=== PATIENT | male | born 1940 | race Caucasian/White ===

== ENCOUNTER → 2017-04-19 10:59 | Inpatient (IN) | payer OTHER, MEDICARE ==
[2016-01-20] VITALS (8 sets, daily range): BP systolic 89–107; BP diastolic 56–70; PULSE 69–103; RESP 15–20; TEMP 95.7–98.7; O2SAT 95–99
--- NOTE | 2016-01-20 05:35 | PD ---
HPI Chief Complaint: GI Complaint Time Seen by Provider: 05:20 Travel History International Travel<30 days: No Contact w/Intl Traveler<30days: No History of Present Illness HPI This is a patient with a history of dementia who is G-tube fed who presents to the emergency department having had 2 episodes at his senior care, one last night and one this morning of coffee-ground emesis. Patient is unable to provide any history. Per the chart the patient does have a history of esophagitis. PFSH Past Medical History Blood Disorders: No Anxiety: No Depression: Yes Cancer: No Cardiovascular Problems: Yes Dementia: Yes Diabetes: Yes Diminished Hearing: No Endocrine: No Gastrointestinal Disorders: Yes (peg tube) GERD: Yes Genitourinary: Yes (incont/kidney stones/hematuria) Hypertension: Yes Immune Disorder: No Kidney Stones: Yes Musculoskeletal: Yes Neurologic: Yes Psychiatric: No Reproductive: Yes (enlarged prostate) Respiratory: No Thyroid Disease: Yes (hypo) Past Surgical History Abdominal Surgery: Yes (PEG TUBE ) Social History Alcohol Use: No Tobacco Use: No Substance Use: No Allergies-Medications (Allergen,Severity, Reaction): Coded Allergies: Depakote (Verified Allergy, Severe, 01/20/16) Levaquin (Verified Allergy, Severe, 01/20/16) Olanzapine (Verified Allergy, Severe, 01/20/16) Seroquel (Verified Allergy, Intermediate, Rash, 01/20/16) Reported Meds & Prescriptions Reported Meds & Active Scripts Active Bactrim DS (Sulfamethoxazole-Trimethoprim DS) 1 Tab Tab 1 Tab PO BID 7 Days Macrobid (Nitrofurantoin Macrocrystals) 100 Mg Cap 100 Mg PO BID 10 Days Keflex 500 mg Cap (Cephalexin Monohydrate) 500 Mg Cap 500 Mg PO TID 7 Days Hydrocodone/Acetaminophen 5 mg/325 mg 1 Tab 1 Tab PO Q4H PRN Reported Colcrys (Colchicine) 0.6 Mg Tab 0.6 Mg PEG DAILY PRN Tylenol 325 Mg Tab (Acetaminophen) 325 Mg Tab 650 Mg PEG Q8HR PRN Tramadol Hcl (Tramadol HCl) 50 Mg Tab 50 Mg PEG Q12HR PRN Allopurinol 100 Mg Tab 100 Mg PEG DAILY Calcium + D (Calcium Carbonate-Vitamin D) 600 Mg Tab 1 Tab PEG DAILY Zantac (Ranitidine HCl) 150 Mg Tab 150 Mg PEG BID Loperamide Hcl (Loperamide HCl) 2 Mg Tab 2 Mg PEG Q12HR PRN DO NOT EXCEED 8 TABLETS/CAPSULES PER 24 HOURS Remeron (Mirtazapine) 7.5 Mg Tab 7.5 Mg PEG HS Review of Systems ROS Limitations: Poor Historian Physical Exam Narrative GENERAL:Well appearing, no acute distress SKIN: Warm and dry. HEAD: Atraumatic. Normocephalic. EYES: Pupils equal and round. No injection or drainage. ENT: Moist mucous membranes NECK: Trachea midline. CARDIOVASCULAR: Regular rate and rhythm. No murmur appreciated. RESPIRATORY: Clear to auscultation. Breath sounds equal bilaterally. GASTROINTESTINAL: Abdomen soft, mildly tender to palpation diffusely. G-tube in place and suprapubic catheter in place. MUSCULOSKELETAL: No obvious deformities. NEUROLOGICAL: Says some words, oriented to person but not time or place. No obvious cranial nerve deficits. Moving all extremities. Data Data Last Documented VS Vital Signs Date Time Temp Pulse Resp B/P Pulse Ox O2 Delivery O2 Flow Rate FiO2 01/20/16 06:17 96 Room Air 01/20/16 05:50 20 01/20/16 05:39 97.5 101 107/70 Orders Ondansetron Inj (Zofran Inj) (01/20/16 05:19) Complete Blood Count With Diff (01/20/16 05:20) Comprehensive Metabolic Panel (01/20/16 05:20) Lipase (01/20/16 05:20) Prothrombin Time / Inr (Pt) (01/20/16 05:20) Act Partial Throm Time (Ptt) (01/20/16 05:20) Type And Screen (01/20/16 05:20) Ecg Monitoring (01/20/16 05:20) Iv Access Insert/Monitor (01/20/16 05:20) Ng Gastric Tube Insert/Monitor (01/20/16 05:20) Oximetry (01/20/16 05:20) Ondansetron Inj (Zofran Inj) (01/20/16 05:30) Sodium Chloride 0.9% Flush (Ns Flush) (01/20/16 05:30) Pantoprazole Inj (Protonix Inj) (01/20/16 05:30) Pantoprazole Inj (Protonix Inj) (01/20/16 05:30) Lidocaine Pf 4% Neb (Lidocaine Pf 4% Neb (01/20/16 05:30) Sodium Chlor 0.9% 1000 Ml Inj (Ns 1000 M (01/20/16 06:00) Urinalysis - C+S If Indicated (01/20/16 06:13) Ct Abd/Pel W Iv Contrast(Rout) (01/20/16 ) Labs Laboratory Tests Test 01/20/16 05:40 White Blood Count 13.3 TH/MM3 Red Blood Count 5.87 MIL/MM3 Hemoglobin 16.5 GM/DL Hematocrit 49.9 % Mean Corpuscular Volume 85.0 FL Mean Corpuscular Hemoglobin 28.1 PG Mean Corpuscular Hemoglobin 33.1 % Concent Red Cell Distribution Width 17.5 % Platelet Count 268 TH/MM3 Mean Platelet Volume 10.6 FL Neutrophils (%) (Auto) 72.1 % Lymphocytes (%) (Auto) 20.1 % Monocytes (%) (Auto) 7.2 % Eosinophils (%) (Auto) 0.4 % Basophils (%) (Auto) 0.2 % Neutrophils # (Auto) 9.6 TH/MM3 Lymphocytes # (Auto) 2.7 TH/MM3 Monocytes # (Auto) 1.0 TH/MM3 Eosinophils # (Auto) 0.0 TH/MM3 Basophils # (Auto) 0.0 TH/MM3 CBC Comment DIFF FINAL Differential Comment Prothrombin Time 10.5 SEC Prothromb Time International 1.0 RATIO Ratio Activated Partial 28.5 SEC Thromboplast Time Sodium Level 140 MEQ/L Potassium Level 4.1 MEQ/L Chloride Level 101 MEQ/L Carbon Dioxide Level 28.2 MEQ/L Anion Gap 11 MEQ/L Blood Urea Nitrogen 20 MG/DL Creatinine 1.16 MG/DL Estimat Glomerular Filtration 61 ML/MIN Rate Random Glucose 121 MG/DL Calcium Level 9.9 MG/DL Total Bilirubin 1.4 MG/DL Aspartate Amino Transf 22 U/L (AST/SGOT) Alanine Aminotransferase 10 U/L (ALT/SGPT) Alkaline Phosphatase 108 U/L Total Protein 8.6 GM/DL Albumin 3.2 GM/DL Lipase 116 U/L Blood Type O POSITIVE Antibody Screen NEGATIVE Blood Bank Comment [facility] Medical Decision Making Medical Screen Exam Complete: Yes Emergency Medical Condition: Yes Interpretation(s) Afebrile, tachycardic Mild leukocytosis Mildly elevated T bili, increased from prior Differential Diagnosis Upper GI bleed, pancreatitis, bowel obstruction, gastroenteritis Narrative Course This is a 76-year-old male who presents from his senior care with 2 episodes of coffee-ground emesis. Patient had continued coffee-ground emesis in the emergency department. He is chronically ill-appearing and frail. He was placed on a monitor and an IV was established. Labs were obtained which demonstrated normal hemoglobin and a mild leukocytosis which may be infectious or may be a stress response in the setting of upper GI bleed. Patient was started on IV pantoprazole. He is quite tender diffusely on exam of his abdomen. A CT abdomen and pelvis was ordered, urinalysis was ordered and I think patient should be admitted for GI evaluation following imaging. Admitting Information Admitting Physician Requests: Admit Diagnosis: upper GI bleed Marita Rodriguez MD Jan 20, 2016 05:35
[2016-01-20 06:11] LABS: AUTOMATED NEUTROPHIL # 9.6 TH/MM3 (1.8-7.7); BASOPHIL % 0.2 % (0.0-2.0); EOSINOPHIL % 0.4 % (0.0-4.0); HEMATOCRIT 49.9 % (39.0-51.0); HEMO FLAGS DIFF FINAL; LYMPH % 20.1 % (9.0-44.0); LYMPHOCYTE # 2.7 TH/MM3 (1.0-4.8); MEAN CORPUSCULAR HEMOGLOBIN 28.1 PG (27.0-34.0); MEAN CORPUSCULAR HGB CONC 33.1 % (32.0-36.0); MONO % 7.2 % (0.0-8.0); NEUT % 72.1 % (16.0-70.0); PLATELET COUNT 268 TH/MM3 (150-450); RED BLOOD COUNT 5.87 MIL/MM3 (4.50-5.90); RED CELL DISTRIBUTION WIDTH 17.5 % (11.6-17.2); WHITE BLOOD COUNT 13.3 TH/MM3 (4.0-11.0)
[2016-01-20 06:17] LABS: APTT (PATIENT) 28.5 SEC (22.6-28.8); PROTHROMBIN TIME - PATIENT 10.5 SEC (9.8-11.4)
[2016-01-20 06:36] LABS: ALT (GPT) 10 U/L (12-78); ANION GAP 11 MEQ/L (5-15); AST (GOT) 22 U/L (15-37); BICARBONATE 28.2 MEQ/L (21.0-32.0); BLOOD UREA NITROGEN 20 MG/DL (7-18); CHLORIDE 101 MEQ/L (98-107); GLOMERULAR FILTRATION RATE 61 ML/MIN (>89); POTASSIUM 4.1 MEQ/L (3.5-5.1); SODIUM (NA) 140 MEQ/L (136-145)
[2016-01-20 06:38] LABS: ALKALINE PHOSPHATASE 108 U/L (45-117); TOTAL BILIRUBIN ADULT 1.4 MG/DL (0.2-1.0)
[2016-01-20] MEDS: PANTOPRAZOLE INJ 80 MG in SODIUM CHLORIDE 0.9% INJ 100 ML IV SCH ×2 (06:57→15:32)
--- NOTE | 2016-01-20 08:09 | RADRPT ---
EXAM DATE/TIME: 01/20/2016 07:16 [place] COMPARISON: CT ABDOMEN & PELVIS W/O CONTRAST, August 01, 2015, 23:15. INDICATIONS : Vomiting for two days. IV CONTRAST: 95 cc Omnipaque 350 (iohexol) IV ORAL CONTRAST: No oral contrast ingested. RADIATION DOSE: 6.02 CTDIvol (mGy) MEDICAL HISTORY : Hypertension. Renal calculi. esophagitis SURGICAL HISTORY : PEG tube ENCOUNTER: Initial ACUITY: 1 day PAIN SCALE: Non-responsive LOCATION: Bilateral abdomen TECHNIQUE: Volumetric scanning of the abdomen and pelvis was performed. Using automated exposure control and ad justment of the mA and/or kV according to patient size, radiation dose was kept as low as reasonably achievable to obtain optimal diagnostic quality images. FINDINGS: LOWER LUNGS: The visualized lower lungs are clear. There are some nodular densities in the right lower lobe adjace nt to the hemidiaphragm which appears stable. LIVER: Homogeneous density without lesion. There is no dilation of the biliary tree. There is a calcified g allstone. SPLEEN: Normal size without lesion. PANCREAS: Within normal limits. KIDNEYS: Normal in size and shape. There is no mass, stone or hydronephrosis on the left. Bilateral renal low densities. There is mild hydronephrosis of the right collecting system and hydroureter. There is a s uprapubic catheter with tip in the region of the right UVJ, made the causing the obstruction.. ADRENAL GLANDS: Within normal limits. VASCULAR: There is no aortic aneurysm. BOWEL/MESENTERY: The stomach, small bowel, and colon demonstrate no acute abnormality. Copious amount of stool through out the large bowel and rectum. There is no free intraperitoneal air or fluid. PEG tube noted. ABDOMINAL WALL: Within normal limits. RETROPERITONEUM: There is no lymphadenopathy. BLADDER: No wall thickening or mass. REPRODUCTIVE: Within normal limits. INGUINAL: There is no lymphadenopathy or hernia. MUSCULOSKELETAL: Scoliosis and degenerative changes. CONCLUSION: 1. Mild obstructive uropathy on the right without visualization of radiopaque calculus. The tip of th e suprapubic catheter is wedged in the region of the right UVJ and may be causing the obstruction. Re commend repositioning of the suprapubic catheter. 2. Cholelithiasis. 3. Renal low densities bilaterally likely related to cyst. 4. Percutaneous gastrostomy tube. Dayday Edmonds MD on January 20, 2016 at 8:01 Board Certified Radiologist. This report was verified electronically.
--- NOTE | 2016-01-20 10:12 | HHI.HP ---
[facility] Alexus Anglin MD Admission Diagnosis upper GI bleed Diagnoses: Travel History International Travel<30 Days: No Contact w/Intl Traveler <30 Da: No Traveled to Known Affected Are: No Past Family Social History Past Medical History Anorexia/Protein calorie malnutrition/history of dysphagia Unspecified dementia Right Knee Osteoarthritis Essential tremor (thought to be Parkinson's at one time) Hiatal hernia with GERD without esophagitis Hypothyroidism Gout of the right elbow Hepatitis C? Past Surgical History PEG tube placement Allergies: Coded Allergies: Depakote (Verified Allergy, Severe, 01/20/16) Levaquin (Verified Allergy, Severe, 01/20/16) Olanzapine (Verified Allergy, Severe, 01/20/16) Seroquel (Verified Allergy, Intermediate, Rash, 01/20/16) Physical Exam Vital Signs Vital Signs Date Time Temp Pulse Resp B/P Pulse Ox O2 Delivery O2 Flow Rate FiO2 01/20/16 07:45 103 20 97/57 95 01/20/16 06:17 96 Room Air 01/20/16 05:50 20 01/20/16 05:39 97.5 101 20 107/70 96 Physical Exam GENERAL: This is a well-nourished, well-developed patient, in no apparent distress. SKIN: No rashes, ecchymoses or lesions. Cool and dry. HEAD: Atraumatic. Normocephalic. No temporal or scalp tenderness. EYES: Pupils equal round and reactive. Extraocular motions intact. No scleral icterus. No injection or drainage. ENT: Nose without bleeding, purulent drainage or septal hematoma. Throat without erythema, tonsillar hypertrophy or exudate. Uvula midline. Airway patent. NECK: Trachea midline. No JVD or lymphadenopathy. Supple, nontender, no meningeal signs. CARDIOVASCULAR: Regular rate and rhythm without murmurs, gallops, or rubs. RESPIRATORY: Clear to auscultation. Breath sounds equal bilaterally. No wheezes , rales, or rhonchi. GASTROINTESTINAL: Abdomen soft, non-tender, nondistended. No hepato-splenomegaly , or palpable masses. No guarding. MUSCULOSKELETAL: Extremities without clubbing, cyanosis, or edema. No joint tenderness, effusion, or edema noted. No calf tenderness. Negative Homans sign bilaterally. NEUROLOGICAL: Awake and alert. Cranial nerves II through XII intact. Motor and sensory grossly within normal limits. Five out of 5 muscle strength in all muscle groups. Normal speech. Laboratory Laboratory Tests Test 01/20/16 05:40 White Blood Count 13.3 Red Blood Count 5.87 Hemoglobin 16.5 Hematocrit 49.9 Mean Corpuscular Volume 85.0 Mean Corpuscular Hemoglobin 28.1 Mean Corpuscular Hemoglobin 33.1 Concent Red Cell Distribution Width 17.5 Platelet Count 268 Mean Platelet Volume 10.6 Neutrophils (%) (Auto) 72.1 Lymphocytes (%) (Auto) 20.1 Monocytes (%) (Auto) 7.2 Eosinophils (%) (Auto) 0.4 Basophils (%) (Auto) 0.2 Neutrophils # (Auto) 9.6 Lymphocytes # (Auto) 2.7 Monocytes # (Auto) 1.0 Eosinophils # (Auto) 0.0 Basophils # (Auto) 0.0 CBC Comment DIFF FINAL Differential Comment Prothrombin Time 10.5 Prothromb Time International 1.0 Ratio Activated Partial 28.5 Thromboplast Time Sodium Level 140 Potassium Level 4.1 Chloride Level 101 Carbon Dioxide Level 28.2 Anion Gap 11 Blood Urea Nitrogen 20 Creatinine 1.16 Estimat Glomerular Filtration 61 Rate Random Glucose 121 Calcium Level 9.9 Total Bilirubin 1.4 Aspartate Amino Transf 22 (AST/SGOT) Alanine Aminotransferase 10 (ALT/SGPT) Alkaline Phosphatase 108 Total Protein 8.6 Albumin 3.2 Lipase 116 Blood Type O POSITIVE Antibody Screen NEGATIVE Blood Bank Comment Result Diagram: 01/20/16 0540 01/20/16 0540 Imaging Last Impressions Abdomen/Pelvis CT 01/20/16 0000 Signed Impressions: Service Date/Time: Wednesday, January 20, 2016 07:16 - CONCLUSION: 1. Mild obstructive uropathy on the right without visualization of radiopaque calculus. The tip of the suprapubic catheter is wedged in the region of the right UVJ and may be causing the obstruction. Recommend repositioning of the suprapubic catheter. 2. Cholelithiasis. 3. Renal low densities bilaterally likely related to cyst. 4. Percutaneous gastrostomy tube. Dayday Edmonds MD Assessment and Plan Assessment and Plan 76-year-old male with Upper GI bleed: Currently on PPI treat pending gastroenterology consultation for possible evaluation for EGD +/-colonoscopy. Serial H&H monitoring and transfuse accordingly. CT abdomen noted and reviewed by me with finding of mild obstructive uropathy. Keep nothing by mouth, start IV fluid hydration Parkinson's disease: With dementia and resting tremor. Stable Mood disorder: Resume outpatient medication when patient able to take by mouth DVT prophylaxis: Dayday Delatorre MD Jan 20, 2016 10:12 DVT prophylaxis: Dayday Delatorre MD Jan 20, 2016 10:12
--- NOTE | 2016-01-20 10:28 | PD ---
Physical Exam Date Seen by Provider: Jan 20, [address] Rodriguez's documentation. Briefly this is a 76-year-old male who presented for GI bleed. Data Data Last Documented VS Vital Signs Date Time Temp Pulse Resp B/P Pulse Ox O2 Delivery O2 Flow Rate FiO2 01/20/16 07:45 103 20 97/57 95 01/20/16 06:17 Room Air 01/20/16 05:39 97.5 Orders Ondansetron Inj (Zofran Inj) (01/20/16 05:19) Complete Blood Count With Diff (01/20/16 05:20) Comprehensive Metabolic Panel (01/20/16 05:20) Lipase (01/20/16 05:20) Prothrombin Time / Inr (Pt) (01/20/16 05:20) Act Partial Throm Time (Ptt) (01/20/16 05:20) Type And Screen (01/20/16 05:20) Ecg Monitoring (01/20/16 05:20) Iv Access Insert/Monitor (01/20/16 05:20) Ng Gastric Tube Insert/Monitor (01/20/16 05:20) Oximetry (01/20/16 05:20) Ondansetron Inj (Zofran Inj) (01/20/16 05:30) Sodium Chloride 0.9% Flush (Ns Flush) (01/20/16 05:30) Pantoprazole Inj (Protonix Inj) (01/20/16 05:30) Pantoprazole Inj (Protonix Inj) (01/20/16 05:30) Lidocaine Pf 4% Neb (Lidocaine Pf 4% Neb (01/20/16 05:30) Sodium Chlor 0.9% 1000 Ml Inj (Ns 1000 M (01/20/16 06:00) Urinalysis - C+S If Indicated (01/20/16 06:13) Ct Abd/Pel W Iv Contrast(Rout) (01/20/16 ) Iohexol 350 Inj (Omnipaque 350 Inj) (01/20/16 07:20) Diatrizoate Liq ( Gastroalison Liq) (01/20/16 07:42) (Hub Use Only)Inp Phy Cons/Ref (01/20/16 ) Admit Order (Ed Use Only) (9/17/16 10:11) Consult Gastroenterology (01/20/16 10:17) Place In Observation (01/20/16 ) Code Status (01/20/16 10:15) Vital Signs (Adult) Q4H (01/20/16 10:15) Activity Oob With Assistance (01/20/16 10:15) Diet Npo (01/20/16 Lunch) Sodium Chlor 0.9% 1000 Ml Inj (Ns 1000 M (01/20/16 10:15) Sodium Chloride 0.9% Flush (Ns Flush) (01/20/16 10:15) Sodium Chloride 0.9% Flush (Ns Flush) (01/20/16 21:00) Acetaminophen (Tylenol) (01/20/16 10:15) Ondansetron Inj (Zofran Inj) (01/20/16 10:15) Comprehensive Metabolic Panel (01/21/16 06:00) Complete Blood Count With Diff (01/21/16 06:00) Case Management Consult (01/20/16 10:15) Scd Bilateral/Knee High KIAH.QSHIFT (01/20/16 10:15) Buzz Bilateral/Knee High KIAH.QSHIFT (01/20/16 10:15) Acetaminophen (Tylenol) (01/20/16 10:15) Naloxone Inj (Narcan Inj) (01/20/16 10:15) Albuterol-Ipratropium Neb (Duoneb Neb) (01/20/16 10:15) Enalaprilat Inj (Vasotec Inj) (01/20/16 10:15) Labs Laboratory Tests Test 01/20/16 05:40 White Blood Count 13.3 TH/MM3 Red Blood Count 5.87 MIL/MM3 Hemoglobin 16.5 GM/DL Hematocrit 49.9 % Mean Corpuscular Volume 85.0 FL Mean Corpuscular Hemoglobin 28.1 PG Mean Corpuscular Hemoglobin 33.1 % Concent Red Cell Distribution Width 17.5 % Platelet Count 268 TH/MM3 Mean Platelet Volume 10.6 FL Neutrophils (%) (Auto) 72.1 % Lymphocytes (%) (Auto) 20.1 % Monocytes (%) (Auto) 7.2 % Eosinophils (%) (Auto) 0.4 % Basophils (%) (Auto) 0.2 % Neutrophils # (Auto) 9.6 TH/MM3 Lymphocytes # (Auto) 2.7 TH/MM3 Monocytes # (Auto) 1.0 TH/MM3 Eosinophils # (Auto) 0.0 TH/MM3 Basophils # (Auto) 0.0 TH/MM3 CBC Comment DIFF FINAL Differential Comment Prothrombin Time 10.5 SEC Prothromb Time International 1.0 RATIO Ratio Activated Partial 28.5 SEC Thromboplast Time Sodium Level 140 MEQ/L Potassium Level 4.1 MEQ/L Chloride Level 101 MEQ/L Carbon Dioxide Level 28.2 MEQ/L Anion Gap 11 MEQ/L Blood Urea Nitrogen 20 MG/DL Creatinine 1.16 MG/DL Estimat Glomerular Filtration 61 ML/MIN Rate Random Glucose 121 MG/DL Calcium Level 9.9 MG/DL Total Bilirubin 1.4 MG/DL Aspartate Amino Transf 22 U/L (AST/SGOT) Alanine Aminotransferase 10 U/L (ALT/SGPT) Alkaline Phosphatase 108 U/L Total Protein 8.6 GM/DL Albumin 3.2 GM/DL Lipase 116 U/L Blood Type O POSITIVE Antibody Screen NEGATIVE Blood Bank Comment [facility] Medical Record Reviewed: Yes Supervised Visit with KAYLEE: No Narrative Course Patient was signed out to me with CT pending and plan for admission for GI bleed. He has been placed on a Protonix drip by Dr. Rodriguez. He has been resting comfortably in the emergency department. I attempted to reposition/ direction his suprapubic catheter as it was noted to possibly be causing obstruction of the right UVJ. I passed this information on to the admitting physician. I have spoken with the admitting physician as well as the on-call metal bumper regarding the patient's upper GI bleed. Physician Communication Physician Communication 10:10 AM: Spoke with admitting physician 10:15 AM: Spoke with on-call metal bumper Admitting Information Admitting Physician Requests: Admit Diagnosis: Upper GI Bleed Barbie Marsh MD Jan 20, 2016 10:28
--- NOTE | 2016-01-20 10:45 | PD.CONS ---
HPI History of Present Illness This is a 76 year old male with history of dementia who was brought from senior living for having two episodes of coffee ground emesis. Patient has a PEG tube and suprapubic catheter. Patient not able to provide any history. According to nurse, he hasn't had any emesis since to arrival to the ED, hgb is 16.5, WBC 13.3, afebrile, he is hypotensive and tachycardic. CT showed 1. Mild obstructive uropathy on the right without visualization of radiopaque calculus. The tip of the suprapubic catheter is wedged in the region of the right UVJ and may be causing the obstruction. Recommend repositioning of the suprapubic catheter. 2. Cholelithiasis. 3. Renal low densities bilaterally likely related to cyst. 4. Percutaneous gastrostomy tube. (Zac Hedrick) PFSH Past Medical History Anorexia/Protein calorie malnutrition/history of dysphagia Unspecified dementia Right Knee Osteoarthritis Essential tremor (thought to be Parkinson's at one time) Hiatal hernia with GERD without esophagitis Hypothyroidism Gout of the right elbow Hepatitis C? Past Surgical History PEG tube placement Suprapubic catheter placement (Zac Hedrick) Coded Allergies: Depakote (Verified Allergy, Severe, 01/20/16) Levaquin (Verified Allergy, Severe, 01/20/16) Olanzapine (Verified Allergy, Severe, 01/20/16) Seroquel (Verified Allergy, Intermediate, Rash, 01/20/16) Medications Current Medications Medications (Trade) Dose Ordered Sig/Gayathri Route Start Time Stop Time Status Last Admin Pantoprazole Sodium 80 mg/ Sodium Chloride 100 ml @ 10 mls/hr Q10H IV 01/20/16 05:30 01/20/16 06:57 (NS 1000 ml Inj) 1,000 ml @ 83 mls/hr Q12H3M IV 01/20/16 10:15 (NS Flush) 2 ml UNSCH PRN FLUSH 01/20/16 10:15 (NS Flush) 2 ml BID FLUSH 01/20/16 21:00 (Tylenol) 650 mg Q4H PRN PO 01/20/16 10:15 (Zofran Inj) 4 mg Q6H PRN IVP 01/20/16 10:15 (Tylenol) 650 mg Q6H PRN PO 01/20/16 10:15 (Narcan Inj) 0.4 mg UNSCH PRN IV 01/20/16 10:15 (Vasotec Inj) 1.25 mg Q6H PRN IV PUSH 01/20/16 10:15 Family History Non contributory Social History not able to obtain (Zac Hedrick) Review of Systems Constitutional: DENIES: Fever, Chills Endocrine: DENIES: Polyuria Eyes: DENIES: Photosensitivity Ears, nose, mouth, throat: DENIES: Hoarseness Respiratory: DENIES: Shortness of breath Cardiovascular: DENIES: Claudication Gastrointestinal: DENIES: Nausea, Vomiting, Difficulty Swallowing, Swelling of Abdomen, Heartburn, Hematemesis Genitourinary: DENIES: Hematuria Musculoskeletal: DENIES: Joint pain Integumentary: DENIES: Jaundice Hematologic/lymphatic: DENIES: Bruising Immunologic/allergic: DENIES: Eczema Neurologic: DENIES: Abnormal gait Psychiatric: DENIES: Anxiety ROS Patient denies any symptoms for me, I doubt this is accurate due to dementia and inability to provide any information for me, per report , he had coffee ground emesis (Zac Hedrick) GI Exam Vitals I&O Vital Signs Date Time Temp Pulse Resp B/P Pulse Ox O2 Delivery O2 Flow Rate FiO2 01/20/16 07:45 103 20 97/57 95 01/20/16 06:17 96 Room Air 01/20/16 05:50 20 01/20/16 05:39 97.5 101 20 107/70 96 Imaging Last Impressions Abdomen/Pelvis CT 01/20/16 0000 Signed Impressions: Service Date/Time: Wednesday, January 20, 2016 07:16 - CONCLUSION: 1. Mild obstructive uropathy on the right without visualization of radiopaque calculus. The tip of the suprapubic catheter is wedged in the region of the right UVJ and may be causing the obstruction. Recommend repositioning of the suprapubic catheter. 2. Cholelithiasis. 3. Renal low densities bilaterally likely related to cyst. 4. Percutaneous gastrostomy tube. Dayday Edmonds MD Laboratory Test 01/20/16 05:40 White Blood Count 13.3 TH/MM3 Red Blood Count 5.87 MIL/MM3 Hemoglobin 16.5 GM/DL Hematocrit 49.9 % Mean Corpuscular Volume 85.0 FL Mean Corpuscular Hemoglobin 28.1 PG Mean Corpuscular Hemoglobin 33.1 % Concent Red Cell Distribution Width 17.5 % Platelet Count 268 TH/MM3 Mean Platelet Volume 10.6 FL Neutrophils (%) (Auto) 72.1 % Lymphocytes (%) (Auto) 20.1 % Monocytes (%) (Auto) 7.2 % Eosinophils (%) (Auto) 0.4 % Basophils (%) (Auto) 0.2 % Neutrophils # (Auto) 9.6 TH/MM3 Lymphocytes # (Auto) 2.7 TH/MM3 Monocytes # (Auto) 1.0 TH/MM3 Eosinophils # (Auto) 0.0 TH/MM3 Basophils # (Auto) 0.0 TH/MM3 CBC Comment DIFF FINAL Differential Comment Prothrombin Time 10.5 SEC Prothromb Time International 1.0 RATIO Ratio Activated Partial 28.5 SEC Thromboplast Time Sodium Level 140 MEQ/L Potassium Level 4.1 MEQ/L Chloride Level 101 MEQ/L Carbon Dioxide Level 28.2 MEQ/L Anion Gap 11 MEQ/L Blood Urea Nitrogen 20 MG/DL Creatinine 1.16 MG/DL Estimat Glomerular Filtration 61 ML/MIN Rate Random Glucose 121 MG/DL Calcium Level 9.9 MG/DL Total Bilirubin 1.4 MG/DL Aspartate Amino Transf 22 U/L (AST/SGOT) Alanine Aminotransferase 10 U/L (ALT/SGPT) Alkaline Phosphatase 108 U/L Total Protein 8.6 GM/DL Albumin 3.2 GM/DL Lipase 116 U/L Blood Type O POSITIVE Antibody Screen NEGATIVE Blood Bank Comment Physical Examination HEENT: Pupils round and reactive to light; normocephalic; atraumatic; no jaundice. Throat is clear. NECK: Neck is supple, no JVD, no lymphadenopathy. CHEST: Chest is clear to auscultation and percussion. CARDIAC: Regular rate and rhythm with no murmur gallop or rubs. ABDOMEN: Soft, nondistended, diffused tenderness on palpation; no hepatosplenomegaly; bowel sounds are present in all four quadrants. EXTREMITIES: No clubbing, cyanosis, or edema. SKIN: Normal; no rash; no jaundice. 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 Patient has a PEG tube and suprapubic catheter. Patient not able to provide any history. According to nurse, he hasn't had any emesis since to arrival to the ED , hgb is 16.5, WBC 13.3, afebrile, he is hypotensive and tachycardic. CT showed 1. Mild obstructive uropathy on the right without visualization of radiopaque calculus. The tip of the suprapubic catheter is wedged in the region of the right UVJ and may be causing the obstruction. Recommend repositioning of the suprapubic catheter. 2. Cholelithiasis. 3. Renal low densities bilaterally likely related to cyst. 4. Percutaneous gastrostomy tube. - Leucocytosis- afebrile, possibly reactive, UA ordered - Dementia, suprapubic catheter per attending Plan: - No active bleeding reported, hgb stable, will monitor for now - Cont. PPI - Notify GI for active bleeding - Monitor HH - transfuse as needed - Possible EGD on Friday pending clinical course - Supportive care - Patient seen and examined by Dr. Espinoza and myself and this note is written on his behalf. (Zac Hedrick) Physician Comments Seen and examined, currently with sepsis and stable UGI bleeding, PEG clear at this point, will follow up clinically . Further recommendations to follow. (Jacob Espinoza MD) Zac Hedrick Jan 20, 2016 10:44 Jacob Espinoza MD Jan 20, 2016 12:04
[2016-01-20] MEDS: SODIUM CHLOR 0.9% 1000 ML INJ 1,000 ML IV SCH ×2 (13:34→22:18)
--- NOTE | 2016-01-20 14:41 | HHI.HP ---
HPI Service [facility] Primary Care Physician Alexus Anglin MD Admission Diagnosis upper GI bleed Diagnoses: (1) GI bleed (2) Dementia (3) Essential tremor (4) Parkinson disease Chief Complaint: GI bleeding Travel History International Travel<30 Days: No Contact w/Intl Traveler <30 Da: No Traveled to Known Affected Are: No History of Present Illness 76 year-old male with a history of dementia, Parkinson disease was brought to the emergency department for evaluation of GI bleed per EMR record. Patient is unable to communicate my exam and history is obtained from ED report and chart review below: "This is a patient with a history of dementia who is G-tube fed who presents to the emergency department having had 2 episodes at his skilled nursing, one last night and one this morning of coffee-ground emesis. Patient is unable to provide any history. Per the chart the patient does have a history of esophagitis." Review of Systems ROS Limitations: Altered Mental Status Other Other 12 systems reviewed and are negative except for the one mentioned in the history of present illness Past Family Social History Past Medical History Anorexia/Protein calorie malnutrition/history of dysphagia Unspecified dementia Right Knee Osteoarthritis Essential tremor (thought to be Parkinson's at one time) Hiatal hernia with GERD without esophagitis Hypothyroidism Gout of the right elbow Hepatitis C? Past Surgical History PEG tube placement Suprapubic catheter placement Reported Medications Colcrys (Colchicine) 0.6 Mg Tab 0.6 Mg PEG DAILY PRN Tylenol 325 Mg Tab (Acetaminophen) 325 Mg Tab 650 Mg PEG Q8HR PRN Tramadol Hcl (Tramadol HCl) 50 Mg Tab 50 Mg PEG Q12HR PRN Allopurinol 100 Mg Tab 100 Mg PEG DAILY Calcium + D (Calcium Carbonate-Vitamin D) 600 Mg Tab 1 Tab PEG DAILY Zantac (Ranitidine HCl) 150 Mg Tab 150 Mg PEG BID Loperamide Hcl (Loperamide HCl) 2 Mg Tab 2 Mg PEG Q12HR PRN DO NOT EXCEED 8 TABLETS/CAPSULES PER 24 HOURS Remeron (Mirtazapine) 7.5 Mg Tab 7.5 Mg PEG HS Allergies: Coded Allergies: Depakote (Verified Allergy, Severe, 01/20/16) Levaquin (Verified Allergy, Severe, 01/20/16) Olanzapine (Verified Allergy, Severe, 01/20/16) Seroquel (Verified Allergy, Intermediate, Rash, 01/20/16) Family History family history not relevant due to patient advanced age and inability to provide any history Social History He is a resident at a local nursing facility Physical Exam Vital Signs Vital Signs Date Time Temp Pulse Resp B/P Pulse Ox O2 Delivery O2 Flow Rate FiO2 01/20/16 14:36 96.9 89 16 89/56 97 01/20/16 13:36 87 18 92/59 95 01/20/16 07:45 103 20 97/57 95 01/20/16 06:17 96 Room Air 01/20/16 05:50 20 01/20/16 05:39 97.5 101 20 107/70 96 Physical Exam GENERAL: cachetic looking man with resting tremors SKIN: No rashes, ecchymoses or lesions. Cool and dry. sacral tear HEAD: Atraumatic. Normocephalic. No temporal or scalp tenderness. EYES: Pupils equal round and reactive. Extraocular motions intact. No scleral icterus. No injection or drainage. ENT: Nose without bleeding, purulent drainage or septal hematoma. Throat without erythema, tonsillar hypertrophy or exudate. Uvula midline. Airway patent. NECK: Trachea midline. No JVD or lymphadenopathy. Supple, nontender, no meningeal signs. CARDIOVASCULAR: Regular rate and rhythm without murmurs, gallops, or rubs. RESPIRATORY: Clear to auscultation. Breath sounds equal bilaterally. No wheezes , rales, or rhonchi. GASTROINTESTINAL: Abdomen soft, non-tender, nondistended. No hepato-splenomegaly , or palpable masses. No guarding.PEG tube in place MUSCULOSKELETAL: Extremities without clubbing, cyanosis, or edema. No joint tenderness, effusion, or edema noted. No calf tenderness. Negative Homans sign bilaterally. NEUROLOGICAL: Awake and alert. Cranial nerves II through XII intact. Motor and sensory grossly within normal limits. Five out of 5 muscle strength in all muscle groups. Normal speech. Laboratory Laboratory Tests Test 01/20/16 05:40 White Blood Count 13.3 Red Blood Count 5.87 Hemoglobin 16.5 Hematocrit 49.9 Mean Corpuscular Volume 85.0 Mean Corpuscular Hemoglobin 28.1 Mean Corpuscular Hemoglobin 33.1 Concent Red Cell Distribution Width 17.5 Platelet Count 268 Mean Platelet Volume 10.6 Neutrophils (%) (Auto) 72.1 Lymphocytes (%) (Auto) 20.1 Monocytes (%) (Auto) 7.2 Eosinophils (%) (Auto) 0.4 Basophils (%) (Auto) 0.2 Neutrophils # (Auto) 9.6 Lymphocytes # (Auto) 2.7 Monocytes # (Auto) 1.0 Eosinophils # (Auto) 0.0 Basophils # (Auto) 0.0 CBC Comment DIFF FINAL Differential Comment Prothrombin Time 10.5 Prothromb Time International 1.0 Ratio Activated Partial 28.5 Thromboplast Time Sodium Level 140 Potassium Level 4.1 Chloride Level 101 Carbon Dioxide Level 28.2 Anion Gap 11 Blood Urea Nitrogen 20 Creatinine 1.16 Estimat Glomerular Filtration 61 Rate Random Glucose 121 Calcium Level 9.9 Total Bilirubin 1.4 Aspartate Amino Transf 22 (AST/SGOT) Alanine Aminotransferase 10 (ALT/SGPT) Alkaline Phosphatase 108 Total Protein 8.6 Albumin 3.2 Lipase 116 Blood Type O POSITIVE Antibody Screen NEGATIVE Blood Bank Comment Result Diagram: 01/20/16 0540 01/20/16 0540 Imaging Last Impressions Abdomen/Pelvis CT 01/20/16 0000 Signed Impressions: Service Date/Time: Friday, January 20, 2016 07:16 - CONCLUSION: 1. Mild obstructive uropathy on the right without visualization of radiopaque calculus. The tip of the suprapubic catheter is wedged in the region of the right UVJ and may be causing the obstruction. Recommend repositioning of the suprapubic catheter. 2. Cholelithiasis. 3. Renal low densities bilaterally likely related to cyst. 4. Percutaneous gastrostomy tube. Dayday Edmonds MD Assessment and Plan Problem List: (1) GI bleed Status: Acute (2) Essential tremor Status: Chronic (3) Dementia Status: Chronic (4) Parkinson disease Status: Chronic (5) Hypotension Status: Acute (6) Loose stools Status: Acute Assessment and Plan 76-year-old male with Upper GI bleed: Currently on PPI treat pending gastroenterology consultation for possible evaluation for EGD +/-colonoscopy. Serial H&H monitoring and transfuse accordingly. CT abdomen noted and reviewed by me with finding of mild obstructive uropathy. Keep nothing by mouth, start IV fluid hydration, PPI Hypotension: H&H stable;Treat with NS 1L x 1 Bolus and continue with IVF hydration Loose stools:heck C-diff and treat accordingly; start Lactinex Sacral tear/decub stage I: Wound care nurse consult Parkinson's disease: With dementia and resting tremor. Stable Mood disorder: Resume outpatient medication when patient able to take by mouth Calorie protein malnutrition: Resume Tube Feed DVT prophylaxis: SCDs Code Status Full code Discussed Condition With ED physician Physician Certification 2 Midnight Certification Type: Admission for Inpatient Services Order for Inpatient Services The services are ordered in accordance with Medicare regulations or non- Medicare payer requirements, as applicable. In the case of services not specified as inpatient-only, they are appropriately provided as inpatient services in accordance with the 2-midnight benchmark. Estimated LOS (days): 2 days is the estimated time the patient will need to remain in the hospital, assuming treatment plan goals are met and no additional complications. Post-Hospital Plan: Not yet determined Dayday Blankenship MD Jan 20, 2016 14:41
[2016-01-20] MEDS: RANITIDINE HCL SYRUP 150 MG/10 ML UDC PEG SCH (20:21)
[2016-01-20] MEDS: MIRTAZAPINE 15 MG TAB PEG SCH (20:21)
[2016-01-20] MEDS: PILL SPLITTER OTHER PRN (20:21)
[2016-01-20] MEDS: SODIUM CHLORIDE 0.9% FLUSH 5 ML FLUSH FLUSH SCH (20:21)
[2016-01-20 20:45] LABS: C. DIFF EPI 027 PRESUMPTIVE NEGATIVE (NEGATIVE)
[2016-01-21] VITALS: BP 100/82; PULSE 75; RESP 18; TEMP 95.8; O2SAT 97
[2016-01-21] MEDS: PANTOPRAZOLE INJ 80 MG in SODIUM CHLORIDE 0.9% INJ 100 ML IV SCH ×3 (03:37→21:48)
[2016-01-21 04:00] VITALS: BP 90/56; PULSE 81; RESP 18; TEMP 95.7; O2SAT 96
[2016-01-21 05:40] LABS: ALKALINE PHOSPHATASE 82 U/L (45-117); ALT (GPT) 6 U/L (12-78); ANION GAP 5 MEQ/L (5-15); AST (GOT) 16 U/L (15-37); BLOOD UREA NITROGEN 22 MG/DL (7-18); CHLORIDE 109 MEQ/L (98-107); GLOMERULAR FILTRATION RATE 91 ML/MIN (>89); POTASSIUM 4.3 MEQ/L (3.5-5.1); SODIUM (NA) 142 MEQ/L (136-145); TOTAL BILIRUBIN ADULT 0.6 MG/DL (0.2-1.0)
[2016-01-21 05:43] LABS: AUTOMATED NEUTROPHIL # 3.4 TH/MM3 (1.8-7.7); BASOPHIL % 0.7 % (0.0-2.0); EOSINOPHIL # 0.1 TH/MM3 (0-0.4); EOSINOPHIL % 1.5 % (0.0-4.0); HEMATOCRIT 43.7 % (39.0-51.0); HEMO FLAGS DIFF FINAL; LYMPH % 30.4 % (9.0-44.0); LYMPHOCYTE # 1.7 TH/MM3 (1.0-4.8); MEAN CELL VOLUME 85.5 FL (80.0-100.0); MEAN CORPUSCULAR HEMOGLOBIN 28.2 PG (27.0-34.0); MONO % 6.2 % (0.0-8.0); NEUT % 61.2 % (16.0-70.0); PLATELET COUNT 168 TH/MM3 (150-450); RED BLOOD COUNT 5.12 MIL/MM3 (4.50-5.90); RED CELL DISTRIBUTION WIDTH 17.2 % (11.6-17.2); WHITE BLOOD COUNT 5.6 TH/MM3 (4.0-11.0)
[2016-01-21 08:30] VITALS: BP_SYST 100; BP_SYST 97; BP_DIAS 56; BP_DIAS 60; PULSE 68; RESP 16; TEMP 96.9; O2SAT 99
[2016-01-21] MEDS: SODIUM CHLORIDE 0.9% FLUSH 5 ML FLUSH FLUSH SCH ×2 (09:00→19:27)
--- NOTE | 2016-01-21 10:29 | HHI.GIFU ---
Subjective Remarks Same overall general condition, PEG clear and no blood Objective Vitals I&O Vital Signs Date Time Temp Pulse Resp B/P Pulse Ox O2 Delivery O2 Flow Rate FiO2 01/21/16 08:30 96.9 68 16 97/56 99 100/60 01/21/16 04:00 95.7 81 18 90/56 96 01/21/16 00:00 95.8 75 18 100/82 97 01/20/16 21:10 94/62 01/20/16 20:00 95.7 69 18 97 01/20/16 16:12 98.7 73 15 91/62 99 01/20/16 14:36 96.9 89 16 89/56 97 01/20/16 13:36 87 18 92/59 95 I/O 01/20/16 01/20/16 01/20/16 01/21/16 01/21/16 01/21/16 06:59 14:59 22:59 06:59 14:59 22:59 Intake Total 2226 ml 723 ml Balance 2226 ml 723 ml Intake Oral 0 ml 0 ml IV Total 1718 ml 723 ml Tube Feeding 258 ml Tube Irrigant 50 ml Other 200 ml # Voids 2 2 # Bowel Movements 2 1 2 Laboratory Laboratory Tests Test 01/20/16 01/21/16 14:30 04:57 Stool C. difficile Toxin (PCR) NEGATIVE Stl C. difficile Toxin PRESUMPTIVE Epiderm 027 NEGATIVE White Blood Count 5.6 Red Blood Count 5.12 Hemoglobin 14.4 Hematocrit 43.7 Mean Corpuscular Volume 85.5 Mean Corpuscular Hemoglobin 28.2 Mean Corpuscular Hemoglobin 33.0 Concent Red Cell Distribution Width 17.2 Platelet Count 168 Mean Platelet Volume 10.5 Neutrophils (%) (Auto) 61.2 Lymphocytes (%) (Auto) 30.4 Monocytes (%) (Auto) 6.2 Eosinophils (%) (Auto) 1.5 Basophils (%) (Auto) 0.7 Neutrophils # (Auto) 3.4 Lymphocytes # (Auto) 1.7 Monocytes # (Auto) 0.3 Eosinophils # (Auto) 0.1 Basophils # (Auto) 0.0 CBC Comment DIFF FINAL Differential Comment Hematology Comments Sodium Level 142 Potassium Level 4.3 Chloride Level 109 Carbon Dioxide Level 28.0 Anion Gap 5 Blood Urea Nitrogen 22 Creatinine 0.82 Estimat Glomerular Filtration 91 Rate Random Glucose 105 Calcium Level 7.9 Total Bilirubin 0.6 Aspartate Amino Transf 16 (AST/SGOT) Alanine Aminotransferase 6 (ALT/SGPT) Alkaline Phosphatase 82 Total Protein 6.4 Albumin 2.4 Physical Exam NECK: Neck is supple, no JVD, no lymphadenopathy. CHEST: Chest is clear to auscultation and percussion. CARDIAC: Regular rate and rhythm with no murmur gallop or rubs. ABDOMEN: Soft, nondistended, nontender; clear tube EXTREMITIES: No clubbing, cyanosis, or edema. OFFLINE EDITOR: Lethargic and confused Assessment and Plan Plan - Coffee ground emesis, resolved, HH dropped with hydration - Leucocytosis, cultures pending for sepsis - Dementia, suprapubic catheter per attending Plan: - No active bleeding reported, hgb stable, will monitor for now - Resume TF today - Cont. PPI - Notify GI for active bleeding - Monitor HH - transfuse as needed - Supportive care Jacob Espinoza MD Jan 21, 2016 10:29
[2016-01-21] MEDS: SODIUM CHLOR 0.9% 1000 ML INJ 1,000 ML IV SCH ×2 (10:49→23:44)
[2016-01-21] MEDS: ALLOPURINOL 100 MG TAB PEG SCH (10:49)
[2016-01-21] MEDS: RANITIDINE HCL SYRUP 150 MG/10 ML UDC PEG SCH ×2 (10:49→19:27)
[2016-01-21 12:24] VITALS: BP 101/59; PULSE 64; RESP 17; TEMP 97.4; O2SAT 100
--- NOTE | 2016-01-21 12:29 | HHI.PR ---
Subjective Remarks F-U GI bleed/hypotension/malfunctioning SPC/diarrhea 01/21/16-patient seen and examined; much more alert and oriented. Continue to have loose stool. C. difficile negative. SPC malfunctioning and patient with urine through penis Objective Vitals Vital Signs Date Time Temp Pulse Resp B/P Pulse Ox O2 Delivery O2 Flow Rate FiO2 01/21/16 12:24 97.4 64 17 101/59 100 01/21/16 08:30 96.9 68 16 97/56 99 100/60 01/21/16 04:00 95.7 81 18 90/56 96 01/21/16 00:00 95.8 75 18 100/82 97 01/20/16 21:10 94/62 01/20/16 20:00 95.7 69 18 97 01/20/16 16:12 98.7 73 15 91/62 99 01/20/16 14:36 96.9 89 16 89/56 97 01/20/16 13:36 87 18 92/59 95 I/O 01/20/16 01/20/16 01/20/16 01/21/16 01/21/16 01/21/16 07:00 15:00 23:00 07:00 15:00 23:00 Intake Total 2226 ml 723 ml Balance 2226 ml 723 ml Intake Oral 0 ml 0 ml IV Total 1718 ml 723 ml Tube Feeding 258 ml Tube Irrigant 50 ml Other 200 ml # Voids 2 2 # Bowel Movements 2 1 2 Result Diagram: 01/21/16 0457 01/21/16 0457 Imaging Last Impressions Abdomen/Pelvis CT 01/20/16 0000 Signed Impressions: Service Date/Time: Wednesday, January 20, 2016 07:16 - CONCLUSION: 1. Mild obstructive uropathy on the right without visualization of radiopaque calculus. The tip of the suprapubic catheter is wedged in the region of the right UVJ and may be causing the obstruction. Recommend repositioning of the suprapubic catheter. 2. Cholelithiasis. 3. Renal low densities bilaterally likely related to cyst. 4. Percutaneous gastrostomy tube. Dayday Edmonds MD Objective Remarks GENERAL: NAD SKIN: Warm and dry. HEAD: Normocephalic. EYES: No scleral icterus. No injection or drainage. NECK: Supple, trachea midline. No JVD or lymphadenopathy. CARDIOVASCULAR: Regular rate and rhythm without murmurs, gallops, or rubs. RESPIRATORY: Breath sounds equal bilaterally. No accessory muscle use. GASTROINTESTINAL: Abdomen soft, non-tender, nondistended. PEG tube in place MUSCULOSKELETAL: No cyanosis, or edema. BACK: Nontender without obvious deformity. No CVA tenderness. A/P Problem List: (1) GI bleed Status: Acute (2) Essential tremor Status: Chronic (3) Dementia Status: Chronic (4) Parkinson disease Status: Chronic (5) Hypotension Status: Acute (6) Loose stools Status: Acute Assessment and Plan 76-year-old male with Upper GI bleed: Currently on PPI treat and appreciate input from gastroenterology for possible evaluation for EGD +/-colonoscopy. Serial H&H monitoring and transfuse accordingly. CT abdomen noted and reviewed by me with finding of mild obstructive uropathy. Keep nothing by mouth, IV fluid hydration, PPI, TPN Hypotension: H&H stable; s/p NS 1L x 1 Bolus and continue with IVF hydration. Start Midodrine Loose stools:C-diff negative ; echo by and parasite and stool culture. Start antidiarrhea motility agent and continue Lactinex Sacral tear/decub stage I: Wound care nurse consult Parkinson's disease: With dementia and resting tremor. Stable Mood disorder: Resume outpatient medication when patient able to take by mouth Mild obstructive uropathy: Patient with malfunctioning SPC, will consult urology Calorie protein malnutrition: Tube Feed on continuous DVT prophylaxis: Dayday Estrella MD Jan 21, 2016 12:29
[2016-01-21 16:00] VITALS: BP 97/63; PULSE 76; RESP 17; TEMP 96.8; O2SAT 98
--- NOTE | 2016-01-21 16:46 | PD.CONS ---
HPI Service Urology Consult Requested By Reason for Consult Suprapubic tube, hydronephrosis Primary Care Physician Alexus Anglin MD Diagnosis: (1) GI bleed (2) Essential tremor (3) Dementia (4) Parkinson disease (5) Hypotension (6) Loose stools History of Present Illness 76 year-old male with a history of dementia and Parkinson disease now seen in consultation for non-draining SPT and right hydronephrosis. Patient admitted for GI bleed. Patient is non-verbal. Per prior notes and nursing, patient lives at a nursing facility where his he is managed with a suprapubic tract. It is unclear when the last change of the SPT was. Since admit, the catheter has not had any UOP, with significant urinary leakage from his urethra and penis. No blood. no urine sample obtained. No fevers. Review of Systems ROS Limitations: Altered Mental Status Constitutional: DENIES: Diaphoretic episodes, Fever Endocrine: DENIES: Polyuria Eyes: DENIES: Blurred vision Ears, nose, mouth, throat: DENIES: Tinnitus, Hearing loss Respiratory: DENIES: Apneas, Cough Cardiovascular: DENIES: Chest pain, Palpitations Gastrointestinal: DENIES: Abdominal pain Genitourinary: COMPLAINS OF: Urinary incontinence, DENIES: Hematuria Musculoskeletal: COMPLAINS OF: Stiffness Integumentary: DENIES: Abnormal pigmentation Hematologic/lymphatic: DENIES: Bruising Immunologic/allergic: DENIES: Eczema Neurologic: DENIES: Localized weakness Psychiatric: COMPLAINS OF: Confusion, DENIES: Anxiety Past Family Social History Past Medical History Anorexia/Protein calorie malnutrition/history of dysphagia Unspecified dementia Right Knee Osteoarthritis Essential tremor (thought to be Parkinson's at one time) Hiatal hernia with GERD without esophagitis Hypothyroidism Gout of the right elbow Hepatitis C? Past Surgical History PEG tube placement Suprapubic catheter placement Reported Medications Reported Meds & Active Scripts Active Bactrim DS (Sulfamethoxazole-Trimethoprim DS) 1 Tab Tab 1 Tab PO BID 7 Days Macrobid (Nitrofurantoin Macrocrystals) 100 Mg Cap 100 Mg PO BID 10 Days Keflex 500 mg Cap (Cephalexin Monohydrate) 500 Mg Cap 500 Mg PO TID 7 Days Hydrocodone/Acetaminophen 5 mg/325 mg 1 Tab 1 Tab PO Q4H PRN Reported Colcrys (Colchicine) 0.6 Mg Tab 0.6 Mg PEG DAILY PRN Tylenol 325 Mg Tab (Acetaminophen) 325 Mg Tab 650 Mg PEG Q8HR PRN Tramadol Hcl (Tramadol HCl) 50 Mg Tab 50 Mg PEG Q12HR PRN Allopurinol 100 Mg Tab 100 Mg PEG DAILY Calcium + D (Calcium Carbonate-Vitamin D) 600 Mg Tab 1 Tab PEG DAILY Zantac (Ranitidine HCl) 150 Mg Tab 150 Mg PEG BID Loperamide Hcl (Loperamide HCl) 2 Mg Tab 2 Mg PEG Q12HR PRN DO NOT EXCEED 8 TABLETS/CAPSULES PER 24 HOURS Remeron (Mirtazapine) 7.5 Mg Tab 7.5 Mg PEG HS Allergies: Coded Allergies: Depakote (Verified Allergy, Severe, 01/20/16) Levaquin (Verified Allergy, Severe, 01/20/16) Olanzapine (Verified Allergy, Severe, 01/20/16) Ciprofloxacin (Verified Allergy, Intermediate, Hallucinations, 01/20/16) per pt's son Hydrocodone (Verified Allergy, Intermediate, Hallucinations, 01/20/16) per pt's son Seroquel (Verified Allergy, Intermediate, Rash, 01/20/16) Active Ordered Medications Current Medications Medications (Trade) Dose Ordered Sig/Gayathri Route Start Time Stop Time Status Last Admin Pantoprazole Sodium 80 mg/ Sodium Chloride 100 ml @ 10 mls/hr Q10H IV 01/20/16 05:30 01/21/16 10:52 (NS 1000 ml Inj) 1,000 ml @ 83 mls/hr Q12H3M IV 01/20/16 10:15 01/21/16 10:49 (NS Flush) 2 ml UNSCH PRN FLUSH 01/20/16 10:15 (NS Flush) 2 ml BID FLUSH 01/20/16 21:00 (Tylenol) 650 mg Q4H PRN PO 01/20/16 10:15 (Zofran Inj) 4 mg Q6H PRN IVP 01/20/16 10:15 (Tylenol) 650 mg Q6H PRN PO 01/20/16 10:15 (Narcan Inj) 0.4 mg UNSCH PRN IV 01/20/16 10:15 (Vasotec Inj) 1.25 mg Q6H PRN IV PUSH 01/20/16 10:15 (Zyloprim) 100 mg DAILY PEG 01/21/16 09:00 01/21/16 10:49 (Zantac Liq) 150 mg BID PEG 01/20/16 21:00 01/21/16 10:49 (Remeron) 7.5 mg HS PEG 01/20/16 21:00 01/20/16 20:21 (Pill Splitter) 1 ea UNSCH PRN OTHER 01/20/16 14:15 01/20/16 20:21 (Imodium) 2 mg Q6H PRN PO 01/21/16 12:45 (Lomotil Tab) 2 tab Q6H PRN PO 01/21/16 12:45 (Proamatine) 5 mg TID@07,12,17 PO 01/21/16 17:00 Family History Family history reviewed and noncontributory Social History He is a resident at a local nursing facility Physical Exam Vital Signs Vital Signs Date Time Temp Pulse Resp B/P Pulse Ox O2 Delivery O2 Flow Rate FiO2 01/21/16 16:00 96.8 76 17 97/63 98 01/21/16 12:24 97.4 64 17 101/59 100 01/21/16 08:30 96.9 68 16 97/56 99 100/60 01/21/16 04:00 95.7 81 18 90/56 96 01/21/16 00:00 95.8 75 18 100/82 97 01/20/16 21:10 94/62 01/20/16 20:00 95.7 69 18 97 Physical Exam GENERAL: This is a well-nourished, well-developed patient, in no apparent distress. SKIN: No rashes, ecchymoses or lesions. Cool and dry. HEAD: Atraumatic. Normocephalic. EYES: Extraocular motions intact. No scleral icterus. No injection or drainage. ENT: Nose without bleeding, purulent drainage Airway patent. NECK: Trachea midline. CARDIOVASCULAR: Good peripheral perfusion and pulses RESPIRATORY: Nonlabored. GASTROINTESTINAL: Abdomen soft, Mild suprapubic tenderness, nondistended. : 16Fr SPT in place, non-draining; insertion site without erythema or purulent drainage, no evidence of infection. Circumcised phallus, normal urethral meatus MUSCULOSKELETAL: Extremities without clubbing, cyanosis, or edema. No joint tenderness, effusion, or edema noted. NEUROLOGICAL: Awake, not oriented. Responds to commands, nonverbal. Laboratory Laboratory Tests Test 01/21/16 04:57 White Blood Count 5.6 Red Blood Count 5.12 Hemoglobin 14.4 Hematocrit 43.7 Mean Corpuscular Volume 85.5 Mean Corpuscular Hemoglobin 28.2 Mean Corpuscular Hemoglobin 33.0 Concent Red Cell Distribution Width 17.2 Platelet Count 168 Mean Platelet Volume 10.5 Neutrophils (%) (Auto) 61.2 Lymphocytes (%) (Auto) 30.4 Monocytes (%) (Auto) 6.2 Eosinophils (%) (Auto) 1.5 Basophils (%) (Auto) 0.7 Neutrophils # (Auto) 3.4 Lymphocytes # (Auto) 1.7 Monocytes # (Auto) 0.3 Eosinophils # (Auto) 0.1 Basophils # (Auto) 0.0 CBC Comment DIFF FINAL Differential Comment Hematology Comments Sodium Level 142 Potassium Level 4.3 Chloride Level 109 Carbon Dioxide Level 28.0 Anion Gap 5 Blood Urea Nitrogen 22 Creatinine 0.82 Estimat Glomerular Filtration 91 Rate Random Glucose 105 Calcium Level 7.9 Total Bilirubin 0.6 Aspartate Amino Transf 16 (AST/SGOT) Alanine Aminotransferase 6 (ALT/SGPT) Alkaline Phosphatase 82 Total Protein 6.4 Albumin 2.4 Result Diagram: 01/21/16 0457 01/21/16 0457 Imaging Last 48 hours Impressions Abdomen/Pelvis CT 01/20/16 0000 Signed Impressions: Service Date/Time: Wednesday, January 20, 2016 07:16 - CONCLUSION: 1. Mild obstructive uropathy on the right without visualization of radiopaque calculus. The tip of the suprapubic catheter is wedged in the region of the right UVJ and may be causing the obstruction. Recommend repositioning of the suprapubic catheter. 2. Cholelithiasis. 3. Renal low densities bilaterally likely related to cyst. 4. Percutaneous gastrostomy tube. Dayday Edmonds MD Assessment and Plan Problem List: (1) Incontinence Status: Acute (2) Nephrolithiasis Status: Acute (3) Enlarged prostate Status: Acute (4) Hydronephrosis Status: Acute Assessment and Plan 76 yo male with SPT in place, appears to be secondary to history of enlarged prostate and urinary retention. SPT tip appears to be lodged in the right ureteral orfice, likely causing the right hydronephrosis. -SPT was removed at bedside and an ew 16Fr suprapubic tube was placed. -After placement, thick cloudy urine was returned with strong foul smell. Sample was sent for culture. -Due to the thick urine output, drainage was poor. Therefore irrigation with normal saline and a 60cc Rosemarie syringe was initiated to remove all the thick infected appearing urine from the bladder. -After adequate irrigation, the bladder was draining clear urine -Continue SPT catheter care. Catheter should be exchanged on a monthly basis at the nursing facility. Next exchange to be due in one month. -Start 5 day course of antibiotics due to catheter manipulation and irrigation to prevent infection -Please call with questions Connor Sanabria MD Jan 21, 2016 16:46
[2016-01-21] MEDS: MIDODRINE 5 MG TAB PO SCH (17:05)
[2016-01-21] MEDS: SULFAMETHOXAZOLE-TRIMETHOPRIM 800-160 MG/20 ML UDC PO SCH (17:06)
[2016-01-21 18:16] LABS: BLOOD, URINE SMALL (NEG); GLUCOSE,URINE NEG (NEG); KETONE, URINE NEG (NEG); MUCUS URINE MANY /lpf (OCC); NITRITE,URINE POS (NEG); PH, URINE 7.5 (5.0-8.5)
[2016-01-21 18:17] LABS: COMMENT (UR) CULTURE INDICATED; CULTURE IF INDICATED CULTURE INDICATED; URINE COLOR DARK-YELLOW (YELLW/STRAW)
[2016-01-21] MEDS: MIRTAZAPINE 15 MG TAB PEG SCH (19:27)
[2016-01-21 20:00] VITALS: BP 97/54; PULSE 76; RESP 20; TEMP 98.8; O2SAT 96
[2016-01-22] VITALS: BP 95/55; PULSE 73; RESP 20; TEMP 97.2; O2SAT 99
[2016-01-22] MEDS: MIDODRINE 5 MG TAB PO SCH ×3 (04:57→17:33)
[2016-01-22] MEDS: SULFAMETHOXAZOLE-TRIMETHOPRIM 800-160 MG/20 ML UDC PO SCH ×2 (04:57→17:33)
[2016-01-22 08:00] VITALS: BP 100/58; PULSE 73; RESP 16; TEMP 97.8; O2SAT 96
[2016-01-22] MEDS: ALLOPURINOL 100 MG TAB PEG SCH (09:54)
[2016-01-22] MEDS: SODIUM CHLORIDE 0.9% FLUSH 5 ML FLUSH FLUSH SCH ×2 (09:55→21:00)
[2016-01-22] MEDS: RANITIDINE HCL SYRUP 150 MG/10 ML UDC PEG SCH ×2 (09:55→21:51)
--- NOTE | 2016-01-22 10:04 | HHI.PR ---
Subjective Remarks F-U GI bleed/hypotension/malfunctioning SPC/diarrhea 01/21/16-patient seen and examined; much more alert and oriented. Continue to have loose stool. C. difficile negative. SPC malfunctioning and patient with urine through penis 01/22/16-patient seen and examined. Urology did change SPC yesterday during. Afebrile. Still with increased loose stool. Otherwise no other issues. Objective Vitals Vital Signs Date Time Temp Pulse Resp B/P Pulse Ox O2 Delivery O2 Flow Rate FiO2 01/22/16 08:00 97.8 73 16 100/58 96 01/22/16 00:00 97.2 73 20 95/55 99 01/21/16 20:00 98.8 76 20 97/54 96 01/21/16 16:00 96.8 76 17 97/63 98 01/21/16 12:24 97.4 64 17 101/59 100 I/O 01/21/16 01/21/16 01/21/16 01/22/16 01/22/16 01/22/16 07:00 15:00 23:00 07:00 15:00 23:00 Intake Total 723 ml 862 ml 796 ml 0 ml 1176 ml Output Total 150 ml 400 ml Balance 723 ml 862 ml 646 ml -400 ml 1176 ml Intake Oral 0 ml 0 ml 0 ml 0 ml IV Total 723 ml 678 ml 796 ml 776 ml Tube Feeding 124 ml 400 ml Tube Irrigant 60 ml Output Urine Total 150 ml 400 ml # Voids 2 2 1 # Bowel Movements 2 2 1 2 Result Diagram: 01/21/16 0457 01/21/16 0457 Imaging Last Impressions Abdomen/Pelvis CT 01/20/16 0000 Signed Impressions: Service Date/Time: Wednesday, January 20, 2016 07:16 - CONCLUSION: 1. Mild obstructive uropathy on the right without visualization of radiopaque calculus. The tip of the suprapubic catheter is wedged in the region of the right UVJ and may be causing the obstruction. Recommend repositioning of the suprapubic catheter. 2. Cholelithiasis. 3. Renal low densities bilaterally likely related to cyst. 4. Percutaneous gastrostomy tube. Dayday Edmonds MD Objective Remarks GENERAL: NAD SKIN: Warm and dry. HEAD: Normocephalic. EYES: No scleral icterus. No injection or drainage. NECK: Supple, trachea midline. No JVD or lymphadenopathy. CARDIOVASCULAR: Regular rate and rhythm without murmurs, gallops, or rubs. RESPIRATORY: Breath sounds equal bilaterally. No accessory muscle use. GASTROINTESTINAL: Abdomen soft, non-tender, nondistended. PEG tube in place MUSCULOSKELETAL: No cyanosis, or edema. BACK: Nontender without obvious deformity. No CVA tenderness. A/P Problem List: (1) GI bleed Status: Acute (2) Essential tremor Status: Chronic (3) Dementia Status: Chronic (4) Parkinson disease Status: Chronic (5) Hypotension Status: Acute (6) Loose stools Status: Acute Assessment and Plan 76-year-old male with Upper GI bleed: Currently on PPI treat and appreciate input from gastroenterology for possible evaluation for EGD +/-colonoscopy. Serial H&H monitoring and transfuse accordingly. CT abdomen noted and reviewed by me with finding of mild obstructive uropathy. Keep nothing by mouth, IV fluid hydration, PPI, TPN Hypotension: H&H stable; s/p NS 1L x 1 Bolus and continue with IVF hydration. Continue with Midodrine Loose stools:C-diff negative ; stool culture, ova and parasite pending. Continue with antidiarrhea motility agent and continue Lactinex Sacral tear/decub stage I: Wound care nurse consult Parkinson's disease: With dementia and resting tremor. Stable Mood disorder: Resume outpatient medication when patient able to take by mouth Mild obstructive uropathy: Appreciate input from urology, SPC was changed yesterday 01/21/16. Currently on Ancef prophylactic antibiotic Calorie protein malnutrition: Tube Feed on continuous DVT prophylaxis: Dayday Estrella MD Jan 22, 2016 10:04
[2016-01-22] MEDS: SODIUM CHLOR 0.9% 1000 ML INJ 1,000 ML IV SCH ×2 (10:27→21:52)
[2016-01-22] MEDS: PANTOPRAZOLE INJ 80 MG in SODIUM CHLORIDE 0.9% INJ 100 ML IV SCH ×2 (10:28→17:30)
[2016-01-22 12:00] VITALS: BP 89/53; PULSE 73; RESP 16; TEMP 96.9; O2SAT 95
[2016-01-22 16:00] VITALS: BP 98/58; PULSE 74; RESP 18; TEMP 97; O2SAT 98
--- NOTE | 2016-01-22 18:30 | HHI.GIFU ---
Subjective Remarks Resting in bed. Denies abdominal pain. No GI bleeding. Tolerating TF. (Lolita Main) Objective Vitals I&O Vital Signs Date Time Temp Pulse Resp B/P Pulse Ox O2 Delivery O2 Flow Rate FiO2 01/22/16 16:00 97.0 74 18 98/58 98 01/22/16 12:00 96.9 73 16 89/53 95 01/22/16 08:00 97.8 73 16 100/58 96 01/22/16 00:00 97.2 73 20 95/55 99 01/21/16 20:00 98.8 76 20 97/54 96 I/O 01/21/16 01/21/16 01/21/16 01/22/16 01/22/16 01/22/16 07:00 15:00 23:00 07:00 15:00 23:00 Intake Total 723 ml 862 ml 796 ml 0 ml 1176 ml Output Total 150 ml 400 ml 425 ml Balance 723 ml 862 ml 646 ml -400 ml 751 ml Intake Oral 0 ml 0 ml 0 ml 0 ml 0 ml IV Total 723 ml 678 ml 796 ml 776 ml Tube Feeding 124 ml 400 ml Tube Irrigant 60 ml Output Urine Total 150 ml 400 ml 425 ml # Voids 2 2 1 # Bowel Movements 2 2 1 2 0 Laboratory Date/Time Procedure Status Source Growth 01/21/16 23:15 Cryptosporidium Exam - Final Complete Stool Stool NEGATIVE - NO CRYPTOSPORIDIUM ANTIGEN... 01/21/16 23:15 Giardia Antigen (GERI) - Final Complete Stool Stool NEGATIVE - NO GIARDIA ANTIGEN DETECTE... 01/21/16 23:15 Campylobacter Antigen Assay - Final Resulted Stool Stool NEGATIVE FOR CAMPYLOBACTER ANTIGEN.... 01/21/16 23:15 Shiga Toxin Test Resulted Stool Stool Pending 01/21/16 23:15 Stool Culture - Preliminary Resulted Stool Stool RESULTS PENDING 01/21/16 16:32 Urine Culture - Preliminary Resulted Urine Clean Catch Gram Negative Jake 01/21/16 16:32 Cryptosporidium Exam Ordered Stool Stool Pending 01/21/16 16:32 Giardia Antigen (GERI) Ordered Stool Stool Pending 01/21/16 16:32 Campylobacter Antigen Assay Ordered Stool Stool Pending 01/21/16 16:32 Shiga Toxin Test Ordered Stool Stool Pending 01/21/16 16:32 Stool Culture Ordered Stool Stool Pending 01/21/16 16:32 Cancelled Urine Suprapubic Urine Imaging Last Impressions Abdomen/Pelvis CT 01/20/16 0000 Signed Impressions: Service Date/Time: Wednesday, January 20, 2016 07:16 - CONCLUSION: 1. Mild obstructive uropathy on the right without visualization of radiopaque calculus. The tip of the suprapubic catheter is wedged in the region of the right UVJ and may be causing the obstruction. Recommend repositioning of the suprapubic catheter. 2. Cholelithiasis. 3. Renal low densities bilaterally likely related to cyst. 4. Percutaneous gastrostomy tube. Dayday Edmonds MD Physical Exam NECK: Neck is supple, no JVD, no lymphadenopathy. CHEST: CTA, diminished CARDIAC: RRR ABDOMEN: Soft, nondistended, nontender; clear tube EXTREMITIES: No clubbing, cyanosis, or edema. EXOTIC DANCER: Lethargic and confused (Lolita Main) Assessment and Plan Plan ASSESSMENT: - Coffee ground emesis, resolved, HH likely dropped with hydration. No further signs of GI bleeding. Tolerating TF. HH 14.4/43.7 - UTI/Leukocytosis. Urine with GNR. Abx per primary - Dementia, suprapubic catheter per attending Plan: - Cont. TF - Cont. PPI - Monitor HH - Notify GI of bleeding - GI will sign off, please reconsult as needed - Pt seen and examined by Dr. Lima and myself and this note is written on his behalf (Lolita Main) Physician Comments Seen and examined, please notify us if needed. (Jacob Espinoza MD) Lolita Main Jan 22, 2016 18:30 Jacob Espinoza MD Jan 23, 2016 09:16 Jacob Espinoza MD Jan 23, 2016 09:16
[2016-01-22 20:20] VITALS: BP 111/58; PULSE 72; RESP 17; TEMP 96.2; O2SAT 96
[2016-01-22] MEDS: MIRTAZAPINE 15 MG TAB PEG SCH (21:52)
[2016-01-22 23:25] VITALS: BP 92/53; PULSE 70; RESP 18; TEMP 97.8; O2SAT 97
[2016-01-23] MEDS: PANTOPRAZOLE INJ 80 MG in SODIUM CHLORIDE 0.9% INJ 100 ML IV SCH ×3 (03:35→22:34)
[2016-01-23] MEDS: SULFAMETHOXAZOLE-TRIMETHOPRIM 800-160 MG/20 ML UDC PO SCH ×2 (05:16→17:02)
[2016-01-23] MEDS: MIDODRINE 5 MG TAB PO SCH ×3 (05:58→17:02)
[2016-01-23 08:00] VITALS: BP 93/49; PULSE 98; RESP 20; TEMP 98; O2SAT 93
[2016-01-23] MEDS: SODIUM CHLORIDE 0.9% FLUSH 5 ML FLUSH FLUSH SCH ×2 (08:53→21:00)
[2016-01-23] MEDS: ALLOPURINOL 100 MG TAB PEG SCH (08:54)
[2016-01-23] MEDS: RANITIDINE HCL SYRUP 150 MG/10 ML UDC PEG SCH ×2 (08:54→21:11)
[2016-01-23] MEDS: SODIUM CHLOR 0.9% 1000 ML INJ 1,000 ML IV SCH ×2 (08:55→21:09)
[2016-01-23 12:00] VITALS: BP 88/49; PULSE 74; RESP 18; TEMP 98.1; O2SAT 93
--- NOTE | 2016-01-23 12:28 | HHI.PR ---
Subjective Remarks F-U GI bleed/hypotension/malfunctioning SPC/diarrhea 01/21/16-patient seen and examined; much more alert and oriented. Continue to have loose stool. C. difficile negative. SPC malfunctioning and patient with urine through penis 01/22/16-patient seen and examined. Urology did change SPC yesterday during. Afebrile. Still with increased loose stool. Otherwise no other issues. 01/23/16-patient seen and examined. No acute event overnight and currently afebrile. Tolerating continuous tube feed without any complication. Case discussed this counter caser regarding discharge disposition Objective Vitals Vital Signs Date Time Temp Pulse Resp B/P Pulse Ox O2 Delivery O2 Flow Rate FiO2 01/23/16 08:00 98.0 98 20 93/49 93 01/22/16 23:25 97.8 70 18 92/53 97 01/22/16 20:20 96.2 72 17 111/58 96 01/22/16 16:00 97.0 74 18 98/58 98 I/O 01/22/16 01/22/16 01/22/16 01/23/16 01/23/16 01/23/16 07:00 15:00 23:00 07:00 15:00 23:00 Intake Total 0 ml 2201 ml 1214 ml Output Total 400 ml 425 ml 500 ml 500 ml Balance -400 ml 1776 ml -500 ml 714 ml Intake Oral 0 ml 0 ml IV Total 1376 ml 774 ml Tube Feeding 775 ml 440 ml Tube Irrigant 50 ml Output Urine Total 400 ml 425 ml 500 ml 500 ml # Bowel Movements 2 0 Result Diagram: 01/21/16 0457 01/21/16 045 Objective Remarks GENERAL: NAD SKIN: Warm and dry. HEAD: Normocephalic. EYES: No scleral icterus. No injection or drainage. NECK: Supple, trachea midline. No JVD or lymphadenopathy. CARDIOVASCULAR: Regular rate and rhythm without murmurs, gallops, or rubs. RESPIRATORY: Breath sounds equal bilaterally. No accessory muscle use. GASTROINTESTINAL: Abdomen soft, non-tender, nondistended. PEG tube in place MUSCULOSKELETAL: No cyanosis, or edema. BACK: Nontender without obvious deformity. No CVA tenderness. A/P Problem List: (1) GI bleed Status: Acute (2) Essential tremor Status: Chronic (3) Dementia Status: Chronic (4) Parkinson disease Status: Chronic (5) Hypotension Status: Acute (6) Loose stools Status: Acute Assessment and Plan 76-year-old male with Upper GI bleed: Stable and no more episode of GI bleed. Appreciate input from GI, change to IV PPI. H&H monitoring and transfuse accordingly. CT abdomen noted and reviewed by me with finding of mild obstructive uropathy. Continue with PPI, TPN Hypotension: H&H stable; s/p NS 1L x 1 Bolus and continue with IVF hydration. Continue with Midodrine Loose stools: Resolved ;C-diff negative ; stool culture, ova and parasite negative. Continue with antidiarrhea motility agent and continue Lactinex Sacral tear/decub stage I: Wound care nurse consult Parkinson's disease: With dementia and resting tremor. Stable Mood disorder: Resume outpatient medication when patient able to take by mouth Mild obstructive uropathy: Appreciate input from urology, SPC was changed yesterday 01/21/16. Currently on Ancef prophylactic antibiotic UTI: Culture positive for Proteus mirabilis and GBS, continue with Ancef Calorie protein malnutrition: Tube Feed on continuous DVT prophylaxis: Dayday Estrella MD Jan 23, 2016 12:28
[2016-01-23 16:00] VITALS: BP 109/69; PULSE 73; RESP 18; TEMP 98.3; O2SAT 95
[2016-01-23 20:00] VITALS: BP 101/57; PULSE 73; RESP 17; TEMP 97.9; O2SAT 93
[2016-01-23] MEDS: MIRTAZAPINE 15 MG TAB PEG SCH (21:11)
[2016-01-24] VITALS: BP 116/60; PULSE 71; RESP 17; TEMP 97.4; O2SAT 95
[2016-01-24] MEDS: SULFAMETHOXAZOLE-TRIMETHOPRIM 800-160 MG/20 ML UDC PO SCH ×2 (04:23→18:29)
[2016-01-24] MEDS: MIDODRINE 5 MG TAB PO SCH ×3 (04:24→18:29)
--- NOTE | 2016-01-24 07:46 | HHI.PR ---
Subjective Remarks F-U GI bleed/hypotension/malfunctioning SPC/diarrhea 01/21/16-patient seen and examined; much more alert and oriented. Continue to have loose stool. C. difficile negative. SPC malfunctioning and patient with urine through penis 01/22/16-patient seen and examined. Urology did change SPC yesterday during. Afebrile. Still with increased loose stool. Otherwise no other issues. 01/23/16-patient seen and examined. No acute event overnight and currently afebrile. Tolerating continuous tube feed without any complication. Case discussed this hospice case manager regarding discharge disposition 01/24/16-patient seen and examined. Afebrile and no complaints and no acute event overnight per nurse report. Objective Vitals Vital Signs Date Time Temp Pulse Resp B/P Pulse Ox O2 Delivery O2 Flow Rate FiO2 01/24/16 00:00 97.4 71 17 116/60 95 01/23/16 20:00 97.9 73 17 101/57 93 01/23/16 16:00 98.3 73 18 109/69 95 01/23/16 12:00 98.1 74 18 88/49 93 01/23/16 08:00 98.0 98 20 93/49 93 I/O 01/23/16 01/23/16 01/23/16 01/24/16 01/24/16 01/24/16 07:00 15:00 23:00 07:00 15:00 23:00 Intake Total 1214 ml 2635 ml 840 ml 1053 ml Output Total 500 ml 800 ml 200 ml 1250 ml Balance 714 ml 1835 ml 640 ml -197 ml Intake Oral 0 ml 240 ml 0 ml IV Total 774 ml 2024 ml 412 ml 677 ml Tube Feeding 440 ml 611 ml 188 ml 376 ml Output Urine Total 500 ml 800 ml 200 ml 1250 ml # Bowel Movements 1 1 Result Diagram: 01/21/16 0457 01/21/16 0457 Imaging Last Impressions Abdomen/Pelvis CT 01/20/16 0000 Signed Impressions: Service Date/Time: Wednesday, January 20, 2016 07:16 - CONCLUSION: 1. Mild obstructive uropathy on the right without visualization of radiopaque calculus. The tip of the suprapubic catheter is wedged in the region of the right UVJ and may be causing the obstruction. Recommend repositioning of the suprapubic catheter. 2. Cholelithiasis. 3. Renal low densities bilaterally likely related to cyst. 4. Percutaneous gastrostomy tube. Dayday Edmonds MD Objective Remarks GENERAL: NAD SKIN: Warm and dry. HEAD: Normocephalic. EYES: No scleral icterus. No injection or drainage. NECK: Supple, trachea midline. No JVD or lymphadenopathy. CARDIOVASCULAR: Regular rate and rhythm without murmurs, gallops, or rubs. RESPIRATORY: Breath sounds equal bilaterally. No accessory muscle use. GASTROINTESTINAL: Abdomen soft, non-tender, nondistended. PEG tube in place MUSCULOSKELETAL: No cyanosis, or edema. BACK: Nontender without obvious deformity. No CVA tenderness. A/P Problem List: (1) GI bleed Status: Resolved (2) Essential tremor Status: Chronic (3) Dementia Status: Chronic (4) Parkinson disease Status: Chronic (5) Hypotension Status: Resolved (6) Loose stools Status: Resolved Assessment and Plan 76-year-old male with Upper GI bleed: Stable and no more episode of GI bleed. Appreciate input from GI, change to IV PPI. H&H monitoring and transfuse accordingly. CT abdomen noted and reviewed by me with finding of mild obstructive uropathy. Continue with PPI, TPN Hypotension: H&H stable; s/p NS 1L x 1 Bolus and continue with IVF hydration. Continue with Midodrine-overall hypotension resolved Loose stools: Resolved ;C-diff negative ; stool culture, ova and parasite negative. Continue with antidiarrhea motility agent when necessary and continue Lactinex Sacral tear/decub stage I: Wound care nurse consult Parkinson's disease: With dementia and resting tremor. Stable Mood disorder: Stable on Remeron Mild obstructive uropathy: Appreciate input from urology, SPC was changed . Currently on Ancef UTI: Culture positive for Proteus mirabilis and GBS, continue with Ancef and switch to by mouth on discharge Calorie protein malnutrition: Tube Feed on continuous DVT prophylaxis: Dayday Estrella MD Jan 24, 2016 07:45
[2016-01-24 08:00] VITALS: BP 90/52; PULSE 77; RESP 24; TEMP 99.3; O2SAT 94
[2016-01-24] MEDS: RANITIDINE HCL SYRUP 150 MG/10 ML UDC PEG SCH ×2 (09:00→22:22)
[2016-01-24] MEDS: SODIUM CHLORIDE 0.9% FLUSH 5 ML FLUSH FLUSH SCH ×2 (09:00→21:00)
[2016-01-24] MEDS: PANTOPRAZOLE INJ 80 MG in SODIUM CHLORIDE 0.9% INJ 100 ML IV SCH ×2 (09:24→19:52)
[2016-01-24] MEDS: ALLOPURINOL 100 MG TAB PEG SCH (09:24)
[2016-01-24 12:00] VITALS: BP 108/56; PULSE 78; RESP 24; TEMP 99.1; O2SAT 94
[2016-01-24 16:00] VITALS: BP 114/65; PULSE 72; RESP 24; TEMP 98.7; O2SAT 94
[2016-01-24] MEDS: SODIUM CHLOR 0.9% 1000 ML INJ 1,000 ML IV SCH ×2 (18:31→23:27)
[2016-01-24 19:57] VITALS: BP 100/58; PULSE 75; RESP 22; TEMP 98.7; O2SAT 95
[2016-01-24] MEDS: MIRTAZAPINE 15 MG TAB PEG SCH (22:22)
[2016-01-24 23:57] VITALS: BP 111/56; PULSE 76; RESP 20; TEMP 97.8; O2SAT 95
[2016-01-25] MEDS: PANTOPRAZOLE INJ 80 MG in SODIUM CHLORIDE 0.9% INJ 100 ML IV SCH (04:36)
[2016-01-25 05:16] LABS: BICARBONATE 26.8 MEQ/L (21.0-32.0); POTASSIUM 4.2 MEQ/L (3.5-5.1)
[2016-01-25 05:38] LABS: AUTOMATED NEUTROPHIL # 4.6 TH/MM3 (1.8-7.7); BASOPHIL # 0.1 TH/MM3 (0-0.2); BASOPHIL % 0.7 % (0.0-2.0); EOSINOPHIL # 0.4 TH/MM3 (0-0.4); EOSINOPHIL % 4.8 % (0.0-4.0); HEMATOCRIT 36.6 % (39.0-51.0); HEMO FLAGS DIFF FINAL; LYMPH % 26.2 % (9.0-44.0); MEAN CELL VOLUME 85.9 FL (80.0-100.0); MEAN CORPUSCULAR HEMOGLOBIN 28.3 PG (27.0-34.0); MEAN CORPUSCULAR HGB CONC 32.9 % (32.0-36.0); MONO % 7.7 % (0.0-8.0); NEUT % 60.6 % (16.0-70.0); PLATELET COUNT 178 TH/MM3 (150-450); RED BLOOD COUNT 4.26 MIL/MM3 (4.50-5.90); RED CELL DISTRIBUTION WIDTH 16.9 % (11.6-17.2); WHITE BLOOD COUNT 7.6 TH/MM3 (4.0-11.0)
[2016-01-25] MEDS: SULFAMETHOXAZOLE-TRIMETHOPRIM 800-160 MG/20 ML UDC PO SCH (05:54)
[2016-01-25] MEDS: MIDODRINE 5 MG TAB PO SCH ×3 (05:55→17:00)
[2016-01-25 08:00] VITALS: BP 101/57; PULSE 81; RESP 19; TEMP 97.2; O2SAT 92
--- NOTE | 2016-01-25 08:04 | HHI.PR ---
Subjective Remarks resting comfortably with no distress. denies pain and afebrile. Objective Vitals Vital Signs Date Time Temp Pulse Resp B/P Pulse Ox O2 Delivery O2 Flow Rate FiO2 01/24/16 23:57 97.8 76 20 111/56 95 01/24/16 19:57 98.7 75 22 100/58 95 01/24/16 16:00 98.7 72 24 114/65 94 01/24/16 12:00 99.1 78 24 108/56 94 I/O 01/24/16 01/24/16 01/24/16 01/25/16 01/25/16 01/25/16 07:00 15:00 23:00 07:00 15:00 23:00 Intake Total 1053 ml 700 ml 1162 ml 1069 ml Output Total 1250 ml 1000 ml 1050 ml 1850 ml Balance -197 ml -300 ml 112 ml -781 ml Intake Oral 0 ml 0 ml 0 ml IV Total 677 ml 260 ml 954 ml 674 ml Tube Feeding 376 ml 440 ml 208 ml 395 ml Output Urine Total 1250 ml 1000 ml 1050 ml 1850 ml # Bowel Movements 1 0 0 0 Result Diagram: 01/25/16 0339 01/25/16 0339 Imaging Last Impressions Abdomen/Pelvis CT 01/20/16 0000 Signed Impressions: Service Date/Time: Wednesday, January 20, 2016 07:16 - CONCLUSION: 1. Mild obstructive uropathy on the right without visualization of radiopaque calculus. The tip of the suprapubic catheter is wedged in the region of the right UVJ and may be causing the obstruction. Recommend repositioning of the suprapubic catheter. 2. Cholelithiasis. 3. Renal low densities bilaterally likely related to cyst. 4. Percutaneous gastrostomy tube. Dayday Edmonds MD Objective Remarks GENERAL: This is a well-nourished, well-developed patient, in no apparent distress. CARDIOVASCULAR: Regular rate and regular rhythm without murmurs, gallops, or rubs. RESPIRATORY: Clear to auscultation. Breath sounds equal bilaterally. No wheezes , rales, or rhonchi. GASTROINTESTINAL: Abdomen soft, non-tender, nondistended. Normal, active bowel sounds MUSCULOSKELETAL: Extremities without clubbing, cyanosis, or edema. NEURO: awake and alert Medications and IVs Current Medications Ondansetron HCl (Zofran Inj) 4 mg STK-MED ONCE .ROUTE ; Start 01/20/16 at 05:19 ; Stop 01/20/16 at 05:20; Status DC Ondansetron HCl (Zofran Inj) 4 mg ONCE ONCE IVP Last administered on at 06:15; Start 01/20/16 at 05:30; Stop 01/20/16 at 05:31; Status DC IV Flush 2 ml 2 ml UNSCH PRN IVF FLUSH AFTER USING IV ACCESS; Start 01/20/16 at 05:30; Stop 01/20/16 at 10:19; Status DC Pantoprazole Sodium 80 mg/ Sodium Chloride 35 ml @ 420 mls/hr ONCE ONCE IV Last administered on 01/20/16at 06:57; Start 01/20/16 at 05:30; Stop 01/20/16 at 05:34; Status DC Pantoprazole Sodium/Sodium Chloride (Protonix Inj/NS Inj) 100 ml @ 10 mls/hr Q10H IV Last administered on 01/25/16at 04:36; Start 01/20/16 at 05:30 Lidocaine HCl 2 ml 2 ml ONCE ONCE NEB Last administered on 01/20/16at 05:27; Start 01/20/16 at 05:30; Stop 01/20/16 at 05:31; Status DC Sodium Chloride (NS 1000 ml Inj) 1,000 ml @ 999 mls/hr Q1H1M IV Last administered on 01/20/16at 06:15; Start 01/20/16 at 06:00; Stop 01/20/16 at 07:00 ; Status DC Iohexol (Omnipaque 350 Inj) 95 ml STK-MED ONCE IV Last administered on at 07:20; Start 01/20/16 at 07:20; Stop 01/20/16 at 07:21; Status DC Diatrizoate Meglum/ Diatrizoate Sod 9 ml 9 ml STK-MED ONCE .ROUTE Last administered on 01/20/16at 07:47; Start 01/20/16 at 07:42; Stop 01/20/16 at 07:43 ; Status DC Sodium Chloride (NS 1000 ml Inj) 1,000 ml @ 83 mls/hr Q12H3M IV Last administered on 01/24/16at 23:27; Start 01/20/16 at 10:15 IV Flush (NS Flush) 2 ml UNSCH PRN FLUSH FLUSH AFTER USING IV ACCESS; Start at 10:15 IV Flush (NS Flush) 2 ml BID FLUSH Last administered on 01/22/16at 09:55; Start 01/20/16 at 21:00 Acetaminophen (Tylenol) 650 mg Q4H PRN PO TEMP > 100.4; Start 01/20/16 at 10:15 Ondansetron HCl (Zofran Inj) 4 mg Q6H PRN IVP NAUSEA OR VOMITING; Start at 10:15 Acetaminophen (Tylenol) 650 mg Q6H PRN PO PAIN SCALE 1 TO 2; Start 01/20/16 at 10:15 Naloxone HCl (Narcan Inj) 0.4 mg UNSCH PRN IV SEE LABEL COMMENTS; Start at 10:15 Albuterol/ Ipratropium (Duoneb Neb) 1 ampule Q2HR NEB PRN NEB wheezings; Start 01/20/16 at 10:15 Enalaprilat (Vasotec Inj) 1.25 mg Q6H PRN IV PUSH SBP>160, DBP>90; Start 01/19 at 10:15 Allopurinol (Zyloprim) 100 mg DAILY PEG Last administered on 01/24/16at 09:24; Start 01/21/16 at 09:00 Ranitidine HCl (Zantac Liq) 150 mg BID PEG Last administered on 01/24/16at 22: 22; Start 01/20/16 at 21:00 Mirtazapine (Remeron) 7.5 mg HS PEG Last administered on 01/24/16at 22:22; Start 01/20/16 at 21:00 Miscellaneous 1 ea 1 ea UNSCH PRN OTHER SEE LABEL COMMENTS Last administered on 01/20/16at 20:21; Start 01/20/16 at 14:15 Sodium Chloride (NS 1000 ml Inj) 1,000 ml @ 999 mls/hr BOLUS ONCE IV Last administered on 01/20/16at 15:21; Start 01/20/16 at 14:45; Stop 01/20/16 at 15:45 ; Status DC Loperamide HCl (Imodium) 2 mg Q6H PRN PO DIARRHEA; Start 01/21/16 at 12:45 Diphenoxylate HCl/ Atropine (Lomotil Tab) 2 tab Q6H PRN PO DIARRHEA; Start at 12:45 Midodrine (Proamatine) 5 mg TID@07,12,17 PO Last administered on 01/25/16at 05: 55; Start 01/21/16 at 17:00 Trimethoprim/ Sulfamethoxazole 20 ml 20 ml Q12H PO Last administered on at 05:54; Start 01/21/16 at 17:00 Cefazolin Sodium/ Sodium Chloride (Ancef Inj/NS Inj) 100 ml @ 200 mls/hr Q12H IV Last administered on 01/24/16at 22:21; Start 01/21/16 at 22:00 A/P Assessment and Plan Upper GI bleed: Stable and no more episode of GI bleed. continue PPI- monitor for recurrent bleeding- H/H fairly stable- GI has signed off. Hypotension: H&H stable; s/p NS 1L x 1 Bolus and continue with IVF hydration. Continue with Midodrine-overall hypotension resolved Loose stools: Resolved ;C-diff negative ; stool culture, ova and parasite negative. Continue with antidiarrhea motility agent when necessary and continue Lactinex Sacral tear/decub stage I: Wound care nurse consulted Parkinson's disease: With dementia and resting tremor. Stable Mood disorder: Stable on Remeron Mild obstructive uropathy: Appreciate input from urology, SPC was changed . Currently on Ancef - urine catheter to be changed monthly. UTI: Culture positive for Proteus mirabilis and GBS, continue with Ancef and switch to by mouth on discharge Calorie protein malnutrition: Tube Feed on continuous DVT prophylaxis: SCDs consult PT Discharge Planning SNF placement- Lori Ontiveros MD Jan 25, 2016 08:04
[2016-01-25 11:42] VITALS: BP 100/56; PULSE 74; RESP 18; TEMP 97.5; O2SAT 93
[2016-01-25] MEDS: ALLOPURINOL 100 MG TAB PEG SCH (14:17)
[2016-01-25] MEDS: RANITIDINE HCL SYRUP 150 MG/10 ML UDC PEG SCH ×2 (14:18→19:49)
[2016-01-25] MEDS: SODIUM CHLORIDE 0.9% FLUSH 5 ML FLUSH FLUSH SCH ×2 (14:20→21:00)
[2016-01-25 16:00] VITALS: BP 108/67; PULSE 83; RESP 18; TEMP 96.4; O2SAT 94
[2016-01-25] MEDS: MIRTAZAPINE 15 MG TAB PEG SCH (19:49)
[2016-01-25] MEDS: PILL SPLITTER OTHER PRN (19:50)
[2016-01-25 20:00] VITALS: BP 109/63; PULSE 79; RESP 18; TEMP 98.1; O2SAT 96
[2016-01-25 22:00] VITALS: PULSE 79
[2016-01-25 22:29] VITALS: O2SAT 94
[2016-01-26] VITALS (7 sets, daily range): BP systolic 94–117; BP diastolic 54–83; PULSE 70–99; RESP 18–22; TEMP 96–97.4; O2SAT 92–95
[2016-01-26] MEDS: MIDODRINE 5 MG TAB PO SCH ×3 (06:13→17:40)
[2016-01-26] MEDS: ALLOPURINOL 100 MG TAB PEG SCH (08:00)
[2016-01-26] MEDS: RANITIDINE HCL SYRUP 150 MG/10 ML UDC PEG SCH ×2 (08:03→22:13)
[2016-01-26] MEDS: SODIUM CHLORIDE 0.9% FLUSH 5 ML FLUSH FLUSH SCH ×2 (08:04→21:00)
--- NOTE | 2016-01-26 08:53 | HHI.PR ---
Subjective Remarks f/u; GI bleed/ UTI resting comfortably with no distress. no fever. d/w the RN and no acute issues over night. Objective Vitals Vital Signs Date Time Temp Pulse Resp B/P Pulse Ox O2 Delivery O2 Flow Rate FiO2 01/26/16 08:00 97.1 81 18 110/59 92 01/26/16 04:00 96.8 81 18 117/65 94 01/26/16 00:00 96.7 77 18 105/60 93 01/25/16 22:29 94 21 01/25/16 22:00 79 01/25/16 20:00 98.1 79 18 109/63 96 01/25/16 16:00 96.4 83 18 108/67 94 01/25/16 11:42 97.5 74 18 100/56 93 I/O 01/25/16 01/25/16 01/25/16 01/26/16 01/26/16 01/26/16 07:00 15:00 23:00 07:00 15:00 23:00 Intake Total 1069 ml 1335 ml 844 ml Output Total 1850 ml 1900 ml 950 ml 1350 ml Balance -781 ml -1900 ml 385 ml -506 ml Intake Oral 0 ml 0 ml 0 ml IV Total 674 ml 1006 ml 306 ml Tube Feeding 395 ml 329 ml 438 ml Other 100 ml Output Urine Total 1850 ml 1900 ml 950 ml 1350 ml # Bowel Movements 0 Result Diagram: 01/25/16 0339 01/25/16 0339 Imaging Last Impressions Abdomen/Pelvis CT 01/20/16 0000 Signed Impressions: Service Date/Time: Wednesday, January 20, 2016 07:16 - CONCLUSION: 1. Mild obstructive uropathy on the right without visualization of radiopaque calculus. The tip of the suprapubic catheter is wedged in the region of the right UVJ and may be causing the obstruction. Recommend repositioning of the suprapubic catheter. 2. Cholelithiasis. 3. Renal low densities bilaterally likely related to cyst. 4. Percutaneous gastrostomy tube. Dayday Edmonds MD Objective Remarks GENERAL: This is a well-nourished, well-developed patient, in no apparent distress. CARDIOVASCULAR: Regular rate and regular rhythm without murmurs, gallops, or rubs. RESPIRATORY: Clear to auscultation. Breath sounds equal bilaterally. No wheezes , rales, or rhonchi. GASTROINTESTINAL: Abdomen soft, non-tender, nondistended. Normal, active bowel sounds- PEG and suprapubic cath in place. MUSCULOSKELETAL: Extremities without clubbing, cyanosis, or edema. NEURO: awake and alert Medications and IVs Current Medications Ondansetron HCl (Zofran Inj) 4 mg STK-MED ONCE .ROUTE ; Start 01/20/16 at 05:19 ; Stop 01/20/16 at 05:20; Status DC Ondansetron HCl (Zofran Inj) 4 mg ONCE ONCE IVP Last administered on at 06:15; Start 01/20/16 at 05:30; Stop 01/20/16 at 05:31; Status DC IV Flush 2 ml 2 ml UNSCH PRN IVF FLUSH AFTER USING IV ACCESS; Start 01/20/16 at 05:30; Stop 01/20/16 at 10:19; Status DC Pantoprazole Sodium 80 mg/ Sodium Chloride 35 ml @ 420 mls/hr ONCE ONCE IV Last administered on 01/20/16at 06:57; Start 01/20/16 at 05:30; Stop 01/20/16 at 05:34; Status DC Pantoprazole Sodium/Sodium Chloride (Protonix Inj/NS Inj) 100 ml @ 10 mls/hr Q10H IV Last administered on 01/25/16at 04:36; Start 01/20/16 at 05:30; Stop at 08:06; Status DC Lidocaine HCl 2 ml 2 ml ONCE ONCE NEB Last administered on 01/20/16at 05:27; Start 01/20/16 at 05:30; Stop 01/20/16 at 05:31; Status DC Sodium Chloride (NS 1000 ml Inj) 1,000 ml @ 999 mls/hr Q1H1M IV Last administered on 01/20/16at 06:15; Start 01/20/16 at 06:00; Stop 01/20/16 at 07:00 ; Status DC Iohexol (Omnipaque 350 Inj) 95 ml STK-MED ONCE IV Last administered on at 07:20; Start 01/20/16 at 07:20; Stop 01/20/16 at 07:21; Status DC Diatrizoate Meglum/ Diatrizoate Sod 9 ml 9 ml STK-MED ONCE .ROUTE Last administered on 01/20/16at 07:47; Start 01/20/16 at 07:42; Stop 01/20/16 at 07:43 ; Status DC Sodium Chloride (NS 1000 ml Inj) 1,000 ml @ 83 mls/hr Q12H3M IV Last administered on 01/24/16at 23:27; Start 01/20/16 at 10:15; Stop 01/25/16 at 08:07 ; Status DC IV Flush (NS Flush) 2 ml UNSCH PRN FLUSH FLUSH AFTER USING IV ACCESS; Start at 10:15 IV Flush (NS Flush) 2 ml BID FLUSH Last administered on 01/26/16at 08:04; Start 01/20/16 at 21:00 Acetaminophen (Tylenol) 650 mg Q4H PRN PO TEMP > 100.4; Start 01/20/16 at 10:15 Ondansetron HCl (Zofran Inj) 4 mg Q6H PRN IVP NAUSEA OR VOMITING; Start at 10:15 Acetaminophen (Tylenol) 650 mg Q6H PRN PO PAIN SCALE 1 TO 2; Start 01/20/16 at 10:15 Naloxone HCl (Narcan Inj) 0.4 mg UNSCH PRN IV SEE LABEL COMMENTS; Start at 10:15 Albuterol/ Ipratropium (Duoneb Neb) 1 ampule Q2HR NEB PRN NEB wheezings; Start 01/20/16 at 10:15 Enalaprilat (Vasotec Inj) 1.25 mg Q6H PRN IV PUSH SBP>160, DBP>90; Start 01/19 at 10:15 Allopurinol (Zyloprim) 100 mg DAILY PEG Last administered on 01/26/16at 08:00; Start 01/21/16 at 09:00 Ranitidine HCl (Zantac Liq) 150 mg BID PEG Last administered on 01/26/16at 08: 03; Start 01/20/16 at 21:00 Mirtazapine (Remeron) 7.5 mg HS PEG Last administered on 01/25/16at 19:49; Start 01/20/16 at 21:00 Miscellaneous 1 ea 1 ea UNSCH PRN OTHER SEE LABEL COMMENTS Last administered on 01/25/16at 19:50; Start 01/20/16 at 14:15 Sodium Chloride (NS 1000 ml Inj) 1,000 ml @ 999 mls/hr BOLUS ONCE IV Last administered on 01/20/16at 15:21; Start 01/20/16 at 14:45; Stop 01/20/16 at 15:45 ; Status DC Loperamide HCl (Imodium) 2 mg Q6H PRN PO DIARRHEA; Start 01/21/16 at 12:45 Diphenoxylate HCl/ Atropine (Lomotil Tab) 2 tab Q6H PRN PO DIARRHEA; Start at 12:45 Midodrine (Proamatine) 5 mg TID@07,12,17 PO Last administered on 01/26/16at 06: 13; Start 01/21/16 at 17:00 Trimethoprim/ Sulfamethoxazole 20 ml 20 ml Q12H PO Last administered on at 05:54; Start 01/21/16 at 17:00; Stop 01/25/16 at 08:06; Status DC Cefazolin Sodium/ Sodium Chloride (Ancef Inj/NS Inj) 100 ml @ 200 mls/hr Q12H IV Last administered on 01/26/16at 08:04; Start 01/21/16 at 22:00 Pantoprazole Sodium 40 mg 40 mg Q24H IV PUSH Last administered on 01/26/16at 08: 00; Start 01/26/16 at 08:15 Sodium Chloride (NS 1000 ml Inj) 1,000 ml @ 60 mls/hr [id number] ONCE IV Last administered on 01/25/16at 14:19; Start 01/25/16 at 08:06; Stop 01/26/16 at 00:45 ; Status DC A/P Assessment and Plan Upper GI bleed: Stable and no more episode of GI bleed. continue PPI- monitor for recurrent bleeding- H/H fairly stable- GI has signed off. Hypotension: H&H stable; s/p NS 1L x 1 Bolus and continue with IVF hydration. Continue with Midodrine-overall hypotension resolved Loose stools: Resolved ;C-diff negative ; stool culture, ova and parasite negative. Continue with antidiarrhea motility agent when necessary and continue Lactinex Sacral tear/decub stage I: Wound care nurse consulted Parkinson's disease: With dementia and resting tremor. Stable Mood disorder: Stable on Remeron Mild obstructive uropathy: Appreciate input from urology, SPC was changed . - urine catheter to be changed monthly. UTI: Culture positive for Proteus mirabilis and GBS- switch to po ceftin to finish the course of antibiotic therapy. Calorie protein malnutrition: Tube Feed on continuous DVT prophylaxis: SCDs consulted PT Discharge Planning SNF placement- Lori Ontiveros MD Jan 26, 2016 08:53
[2016-01-26] MEDS: CEFUROXIME AXETIL 250 MG TAB PO SCH (22:13)
[2016-01-26] MEDS: MIRTAZAPINE 15 MG TAB PEG SCH (22:13)
[2016-01-27 06:03] LABS: HEMATOCRIT 38.5 % (39.0-51.0)
[2016-01-27] MEDS: MIDODRINE 5 MG TAB PO SCH ×3 (06:24→16:56)
[2016-01-27 08:00] VITALS: BP 90/50; PULSE 73; RESP 18; TEMP 98.1; O2SAT 95
[2016-01-27] MEDS: ALLOPURINOL 100 MG TAB PEG SCH (08:02)
[2016-01-27] MEDS: PANTOPRAZOLE SOD 40 MG DELAYED RELEASE TAB PO SCH (08:02)
[2016-01-27] MEDS: CEFUROXIME AXETIL 250 MG TAB PO SCH ×2 (08:02→20:08)
[2016-01-27] MEDS: RANITIDINE HCL SYRUP 150 MG/10 ML UDC PEG SCH ×2 (08:02→20:08)
[2016-01-27] MEDS: SODIUM CHLORIDE 0.9% FLUSH 5 ML FLUSH FLUSH SCH ×2 (08:02→20:08)
--- NOTE | 2016-01-27 08:37 | HHI.PR ---
Subjective Remarks resting comfortably with no distress. no new complaints. Objective Vitals Vital Signs Date Time Temp Pulse Resp B/P Pulse Ox O2 Delivery O2 Flow Rate FiO2 01/26/16 23:57 97.4 76 22 97/55 95 01/26/16 19:57 97.2 70 22 96/54 94 01/26/16 16:00 97.0 99 18 94/83 93 01/26/16 12:00 96.0 71 18 99/65 92 I/O 01/26/16 01/26/16 01/26/16 01/27/16 01/27/16 01/27/16 07:00 15:00 23:00 07:00 15:00 23:00 Intake Total 844 ml 614 ml 617 ml 564 ml Output Total 1350 ml 1400 ml 550 ml 550 ml Balance -506 ml -786 ml 67 ml 14 ml Intake Oral 0 ml 0 ml 0 ml IV Total 306 ml 396 ml 213 ml Tube Feeding 438 ml 614 ml 221 ml 351 ml Other 100 ml Output Urine Total 1350 ml 1400 ml 550 ml 550 ml # Bowel Movements 1 0 0 Result Diagram: 01/27/16 0406 01/25/16 0339 Imaging Last Impressions Abdomen/Pelvis CT 01/20/16 0000 Signed Impressions: Service Date/Time: Wednesday, January 20, 2016 07:16 - CONCLUSION: 1. Mild obstructive uropathy on the right without visualization of radiopaque calculus. The tip of the suprapubic catheter is wedged in the region of the right UVJ and may be causing the obstruction. Recommend repositioning of the suprapubic catheter. 2. Cholelithiasis. 3. Renal low densities bilaterally likely related to cyst. 4. Percutaneous gastrostomy tube. Dayday Edmonds MD Objective Remarks GENERAL: This is a well-nourished, well-developed patient, in no apparent distress. CARDIOVASCULAR: Regular rate and regular rhythm without murmurs, gallops, or rubs. RESPIRATORY: Clear to auscultation. Breath sounds equal bilaterally. No wheezes , rales, or rhonchi. GASTROINTESTINAL: Abdomen soft, non-tender, nondistended. Normal, active bowel sounds- PEG and suprapubic cath in place. MUSCULOSKELETAL: Extremities without clubbing, cyanosis, or edema. NEURO: awake and alert Medications and IVs Current Medications Ondansetron HCl (Zofran Inj) 4 mg STK-MED ONCE .ROUTE ; Start 01/20/16 at 05:19 ; Stop 01/20/16 at 05:20; Status DC Ondansetron HCl (Zofran Inj) 4 mg ONCE ONCE IVP Last administered on at 06:15; Start 01/20/16 at 05:30; Stop 01/20/16 at 05:31; Status DC IV Flush 2 ml 2 ml UNSCH PRN IVF FLUSH AFTER USING IV ACCESS; Start 01/20/16 at 05:30; Stop 01/20/16 at 10:19; Status DC Pantoprazole Sodium 80 mg/ Sodium Chloride 35 ml @ 420 mls/hr ONCE ONCE IV Last administered on 01/20/16at 06:57; Start 01/20/16 at 05:30; Stop 01/20/16 at 05:34; Status DC Pantoprazole Sodium/Sodium Chloride (Protonix Inj/NS Inj) 100 ml @ 10 mls/hr Q10H IV Last administered on 01/25/16at 04:36; Start 01/20/16 at 05:30; Stop at 08:06; Status DC Lidocaine HCl 2 ml 2 ml ONCE ONCE NEB Last administered on 01/20/16at 05:27; Start 01/20/16 at 05:30; Stop 01/20/16 at 05:31; Status DC Sodium Chloride (NS 1000 ml Inj) 1,000 ml @ 999 mls/hr Q1H1M IV Last administered on 01/20/16at 06:15; Start 01/20/16 at 06:00; Stop 01/20/16 at 07:00 ; Status DC Iohexol (Omnipaque 350 Inj) 95 ml STK-MED ONCE IV Last administered on at 07:20; Start 01/20/16 at 07:20; Stop 01/20/16 at 07:21; Status DC Diatrizoate Meglum/ Diatrizoate Sod 9 ml 9 ml STK-MED ONCE .ROUTE Last administered on 01/20/16at 07:47; Start 01/20/16 at 07:42; Stop 01/20/16 at 07:43 ; Status DC Sodium Chloride (NS 1000 ml Inj) 1,000 ml @ 83 mls/hr Q12H3M IV Last administered on 01/24/16at 23:27; Start 01/20/16 at 10:15; Stop 01/25/16 at 08:07 ; Status DC IV Flush (NS Flush) 2 ml UNSCH PRN FLUSH FLUSH AFTER USING IV ACCESS; Start at 10:15 IV Flush (NS Flush) 2 ml BID FLUSH Last administered on 01/26/16at 08:04; Start 01/20/16 at 21:00 Acetaminophen (Tylenol) 650 mg Q4H PRN PO TEMP > 100.4; Start 01/20/16 at 10:15 Ondansetron HCl (Zofran Inj) 4 mg Q6H PRN IVP NAUSEA OR VOMITING; Start at 10:15 Acetaminophen (Tylenol) 650 mg Q6H PRN PO PAIN SCALE 1 TO 2; Start 01/20/16 at 10:15 Naloxone HCl (Narcan Inj) 0.4 mg UNSCH PRN IV SEE LABEL COMMENTS; Start at 10:15 Albuterol/ Ipratropium (Duoneb Neb) 1 ampule Q2HR NEB PRN NEB wheezings; Start 01/20/16 at 10:15 Enalaprilat (Vasotec Inj) 1.25 mg Q6H PRN IV PUSH SBP>160, DBP>90; Start 01/19 at 10:15 Allopurinol (Zyloprim) 100 mg DAILY PEG Last administered on 01/27/16at 08:02; Start 01/21/16 at 09:00 Ranitidine HCl (Zantac Liq) 150 mg BID PEG Last administered on 01/27/16at 08: 02; Start 01/20/16 at 21:00 Mirtazapine (Remeron) 7.5 mg HS PEG Last administered on 01/26/16at 22:13; Start 01/20/16 at 21:00 Miscellaneous 1 ea 1 ea UNSCH PRN OTHER SEE LABEL COMMENTS Last administered on 01/25/16at 19:50; Start 01/20/16 at 14:15 Sodium Chloride (NS 1000 ml Inj) 1,000 ml @ 999 mls/hr BOLUS ONCE IV Last administered on 01/20/16at 15:21; Start 01/20/16 at 14:45; Stop 01/20/16 at 15:45 ; Status DC Loperamide HCl (Imodium) 2 mg Q6H PRN PO DIARRHEA; Start 01/21/16 at 12:45 Diphenoxylate HCl/ Atropine (Lomotil Tab) 2 tab Q6H PRN PO DIARRHEA; Start at 12:45 Midodrine (Proamatine) 5 mg TID@07,12,17 PO Last administered on 01/27/16at 06: 24; Start 01/21/16 at 17:00 Trimethoprim/ Sulfamethoxazole 20 ml 20 ml Q12H PO Last administered on at 05:54; Start 01/21/16 at 17:00; Stop 01/25/16 at 08:06; Status DC Cefazolin Sodium/ Sodium Chloride (Ancef Inj/NS Inj) 100 ml @ 200 mls/hr Q12H IV Last administered on 01/26/16at 08:04; Start 01/21/16 at 22:00; Stop at 08:51; Status DC Pantoprazole Sodium 40 mg 40 mg Q24H IV PUSH Last administered on 01/26/16at 08: 00; Start 01/26/16 at 08:15; Stop 01/26/16 at 08:51; Status DC Sodium Chloride (NS 1000 ml Inj) 1,000 ml @ 60 mls/hr [id number] ONCE IV Last administered on 01/25/16at 14:19; Start 01/25/16 at 08:06; Stop 01/26/16 at 00:45 ; Status DC Cefuroxime Axetil (Ceftin) 250 mg Q12HR PO Last administered on 01/27/16at 08:02 ; Start 01/26/16 at 21:00; Stop 01/28/16 at 08:00 Pantoprazole Sodium (Protonix) 40 mg DAILY PO Last administered on 01/27/16at 08 :02; Start 01/27/16 at 09:00 A/P Assessment and Plan Upper GI bleed: Stable and no more episodes of GI bleed. continue PPI- monitor for recurrent bleeding- H/H stable- GI has signed off. Hypotension: Continue with Midodrine-overall hypotension resolved Loose stools: Resolved ;C-diff negative ; stool culture, ova and parasite negative. Continue with antidiarrhea motility agent when necessary and continue Lactinex Sacral tear/decub stage I: Wound care nurse consulted Parkinson's disease: With dementia and resting tremor. Stable Mood disorder: Stable on Remeron Mild obstructive uropathy: Appreciate input from urology, SPC was changed . - urine catheter to be changed monthly. UTI: Culture positive for Proteus mirabilis and GBS- continue po ceftin to finish the course of antibiotic therapy. Calorie protein malnutrition: Tube Feed on continuous DVT prophylaxis: SCDs continue PT. Discharge Planning awaiting SNF placement- Lori Ontiveros MD Jan 27, 2016 08:37
[2016-01-27 12:00] VITALS: BP 89/53; PULSE 81; RESP 20; TEMP 98.4; O2SAT 93
[2016-01-27 16:00] VITALS: BP 113/55; PULSE 80; RESP 18; TEMP 97.8; O2SAT 94
[2016-01-27 20:00] VITALS: BP 101/57; PULSE 70; PULSE 96; RESP 19; TEMP 97.4; O2SAT 96
[2016-01-27] MEDS: MIRTAZAPINE 15 MG TAB PEG SCH (20:08)
[2016-01-28] VITALS: BP 99/55; PULSE 110; RESP 20; TEMP 96; O2SAT 93
[2016-01-28] MEDS: MIDODRINE 5 MG TAB PO SCH ×3 (05:06→17:22)
[2016-01-28 08:00] VITALS: BP 102/59; PULSE 78; RESP 20; TEMP 97.5; O2SAT 96
[2016-01-28] MEDS: RANITIDINE HCL SYRUP 150 MG/10 ML UDC PEG SCH ×2 (08:05→23:09)
[2016-01-28] MEDS: SODIUM CHLORIDE 0.9% FLUSH 5 ML FLUSH FLUSH SCH ×2 (08:06→21:36)
[2016-01-28] MEDS: ALLOPURINOL 100 MG TAB PEG SCH (08:06)
[2016-01-28] MEDS: PANTOPRAZOLE SOD 40 MG DELAYED RELEASE TAB PO SCH (08:06)
--- NOTE | 2016-01-28 08:13 | HHI.PR ---
Subjective Remarks in no acute distress. denies pain. d/w the RN and no acute issues over night. Objective Vitals Vital Signs Date Time Temp Pulse Resp B/P Pulse Ox O2 Delivery O2 Flow Rate FiO2 01/28/16 00:00 96.0 110 20 99/55 93 01/27/16 20:00 96 01/27/16 20:00 97.4 70 19 101/57 96 01/27/16 16:00 97.8 80 18 113/55 94 01/27/16 12:00 98.4 81 20 89/53 93 I/O 01/27/16 01/27/16 01/27/16 01/28/16 01/28/16 01/28/16 07:00 15:00 23:00 07:00 15:00 23:00 Intake Total 564 ml 571 ml 517 ml 448 ml Output Total 550 ml 850 ml 400 ml 600 ml Balance 14 ml -279 ml 117 ml -152 ml Intake Oral 0 ml 0 ml 0 ml 0 ml IV Total 213 ml 182 ml 2 ml Tube Feeding 351 ml 389 ml 455 ml 348 ml Other 60 ml 100 ml Output Urine Total 550 ml 850 ml 400 ml 600 ml # Bowel Movements 0 1 0 0 Result Diagram: 01/27/16 0406 01/25/16 0339 Imaging Last Impressions Abdomen/Pelvis CT 01/20/16 0000 Signed Impressions: Service Date/Time: Wednesday, January 20, 2016 07:16 - CONCLUSION: 1. Mild obstructive uropathy on the right without visualization of radiopaque calculus. The tip of the suprapubic catheter is wedged in the region of the right UVJ and may be causing the obstruction. Recommend repositioning of the suprapubic catheter. 2. Cholelithiasis. 3. Renal low densities bilaterally likely related to cyst. 4. Percutaneous gastrostomy tube. Dayday Edmonds MD Objective Remarks GENERAL: This is a well-nourished, well-developed patient, in no apparent distress. CARDIOVASCULAR: Regular rate and regular rhythm without murmurs, gallops, or rubs. RESPIRATORY: Clear to auscultation. Breath sounds equal bilaterally. No wheezes , rales, or rhonchi. GASTROINTESTINAL: Abdomen soft, non-tender, nondistended. Normal, active bowel sounds- PEG and suprapubic cath in place. MUSCULOSKELETAL: Extremities without clubbing, cyanosis, or edema. NEURO: awake and alert Medications and IVs Current Medications Ondansetron HCl (Zofran Inj) 4 mg STK-MED ONCE .ROUTE ; Start 01/20/16 at 05:19 ; Stop 01/20/16 at 05:20; Status DC Ondansetron HCl (Zofran Inj) 4 mg ONCE ONCE IVP Last administered on at 06:15; Start 01/20/16 at 05:30; Stop 01/20/16 at 05:31; Status DC IV Flush 2 ml 2 ml UNSCH PRN IVF FLUSH AFTER USING IV ACCESS; Start 01/20/16 at 05:30; Stop 01/20/16 at 10:19; Status DC Pantoprazole Sodium 80 mg/ Sodium Chloride 35 ml @ 420 mls/hr ONCE ONCE IV Last administered on 01/20/16at 06:57; Start 01/20/16 at 05:30; Stop 01/20/16 at 05:34; Status DC Pantoprazole Sodium/Sodium Chloride (Protonix Inj/NS Inj) 100 ml @ 10 mls/hr Q10H IV Last administered on 01/25/16at 04:36; Start 01/20/16 at 05:30; Stop at 08:06; Status DC Lidocaine HCl 2 ml 2 ml ONCE ONCE NEB Last administered on 01/20/16at 05:27; Start 01/20/16 at 05:30; Stop 01/20/16 at 05:31; Status DC Sodium Chloride (NS 1000 ml Inj) 1,000 ml @ 999 mls/hr Q1H1M IV Last administered on 01/20/16at 06:15; Start 01/20/16 at 06:00; Stop 01/20/16 at 07:00 ; Status DC Iohexol (Omnipaque 350 Inj) 95 ml STK-MED ONCE IV Last administered on at 07:20; Start 01/20/16 at 07:20; Stop 01/20/16 at 07:21; Status DC Diatrizoate Meglum/ Diatrizoate Sod 9 ml 9 ml STK-MED ONCE .ROUTE Last administered on 01/20/16at 07:47; Start 01/20/16 at 07:42; Stop 9/17/16 at 07:43 ; Status DC Sodium Chloride (NS 1000 ml Inj) 1,000 ml @ 83 mls/hr Q12H3M IV Last administered on 01/24/16at 23:27; Start 01/20/16 at 10:15; Stop 01/25/16 at 08:07 ; Status DC IV Flush (NS Flush) 2 ml UNSCH PRN FLUSH FLUSH AFTER USING IV ACCESS; Start at 10:15 IV Flush (NS Flush) 2 ml BID FLUSH Last administered on 01/28/16at 08:06; Start 01/20/16 at 21:00 Acetaminophen (Tylenol) 650 mg Q4H PRN PO TEMP > 100.4; Start 01/20/16 at 10:15 Ondansetron HCl (Zofran Inj) 4 mg Q6H PRN IVP NAUSEA OR VOMITING; Start at 10:15 Acetaminophen (Tylenol) 650 mg Q6H PRN PO PAIN SCALE 1 TO 2; Start 01/20/16 at 10:15 Naloxone HCl (Narcan Inj) 0.4 mg UNSCH PRN IV SEE LABEL COMMENTS; Start at 10:15 Albuterol/ Ipratropium (Duoneb Neb) 1 ampule Q2HR NEB PRN NEB wheezings; Start 01/20/16 at 10:15 Enalaprilat (Vasotec Inj) 1.25 mg Q6H PRN IV PUSH SBP>160, DBP>90; Start 01/19 at 10:15 Allopurinol (Zyloprim) 100 mg DAILY PEG Last administered on 01/28/16at 08:06; Start 01/21/16 at 09:00 Ranitidine HCl (Zantac Liq) 150 mg BID PEG Last administered on 01/28/16at 08: 05; Start 01/20/16 at 21:00 Mirtazapine (Remeron) 7.5 mg HS PEG Last administered on 01/27/16at 20:08; Start 01/20/16 at 21:00 Miscellaneous 1 ea 1 ea UNSCH PRN OTHER SEE LABEL COMMENTS Last administered on 01/25/16at 19:50; Start 01/20/16 at 14:15 Sodium Chloride (NS 1000 ml Inj) 1,000 ml @ 999 mls/hr BOLUS ONCE IV Last administered on 01/20/16at 15:21; Start 01/20/16 at 14:45; Stop 01/20/16 at 15:45 ; Status DC Loperamide HCl (Imodium) 2 mg Q6H PRN PO DIARRHEA; Start 01/21/16 at 12:45 Diphenoxylate HCl/ Atropine (Lomotil Tab) 2 tab Q6H PRN PO DIARRHEA; Start at 12:45 Midodrine (Proamatine) 5 mg TID@07,12,17 PO Last administered on 01/28/16at 05: 06; Start 01/21/16 at 17:00 Trimethoprim/ Sulfamethoxazole 20 ml 20 ml Q12H PO Last administered on at 05:54; Start 01/21/16 at 17:00; Stop 01/25/16 at 08:06; Status DC Cefazolin Sodium/ Sodium Chloride (Ancef Inj/NS Inj) 100 ml @ 200 mls/hr Q12H IV Last administered on 01/26/16at 08:04; Start 01/21/16 at 22:00; Stop at 08:51; Status DC Pantoprazole Sodium 40 mg 40 mg Q24H IV PUSH Last administered on 01/26/16at 08: 00; Start 01/26/16 at 08:15; Stop 01/26/16 at 08:51; Status DC Sodium Chloride (NS 1000 ml Inj) 1,000 ml @ 60 mls/hr [id number] ONCE IV Last administered on 01/25/16at 14:19; Start 01/25/16 at 08:06; Stop 01/26/16 at 00:45 ; Status DC Cefuroxime Axetil (Ceftin) 250 mg Q12HR PO Last administered on 01/27/16at 20:08 ; Start 01/26/16 at 21:00; Stop 01/28/16 at 08:00; Status DC Pantoprazole Sodium (Protonix) 40 mg DAILY PO Last administered on 01/28/16at 08 :06; Start 01/27/16 at 09:00 A/P Assessment and Plan A/P Upper GI bleed: Stable and no more episodes of GI bleed. continue PPI- monitor for recurrent bleeding- H/H stable- GI has signed off. Hypotension: Continue with Midodrine-BP overall stable. Loose stools: Resolved ;C-diff negative ; stool culture, ova and parasite negative. Continue with antidiarrhea motility agent when necessary and continue Lactinex Sacral tear/decub stage I: Wound care nurse consulted Parkinson's disease: With dementia and resting tremor. Stable Mood disorder: Stable on Remeron Mild obstructive uropathy: Appreciate input from urology, SPC was changed . - urine catheter to be changed monthly. UTI: Culture positive for Proteus mirabilis and GBS- finished the course of antibiotic. Calorie protein malnutrition: Tube Feed on continuous DVT prophylaxis: SCDs continue PT. Discharge Planning awaiting SNF placement- Lori Ontiveros MD Jan 28, 2016 08:13
[2016-01-28 12:00] VITALS: BP 100/55; PULSE 69; RESP 16; TEMP 97.8; O2SAT 94
[2016-01-28 16:00] VITALS: BP 92/54; PULSE 67; RESP 16; TEMP 97.3; O2SAT 93
[2016-01-28 20:00] VITALS: BP 101/57; PULSE 72; RESP 19; TEMP 97; O2SAT 97
[2016-01-28] MEDS: MIRTAZAPINE 15 MG TAB PEG SCH (21:33)
[2016-01-29] VITALS: BP 103/53; PULSE 69; RESP 19; TEMP 98.5; O2SAT 93
[2016-01-29] MEDS: MIDODRINE 5 MG TAB PO SCH ×3 (06:26→18:08)
[2016-01-29] MEDS: RANITIDINE HCL SYRUP 150 MG/10 ML UDC PEG SCH ×2 (07:59→22:31)
[2016-01-29] MEDS: ALLOPURINOL 100 MG TAB PEG SCH (07:59)
[2016-01-29] MEDS: PANTOPRAZOLE SOD 40 MG DELAYED RELEASE TAB PO SCH (07:59)
[2016-01-29] MEDS: SODIUM CHLORIDE 0.9% FLUSH 5 ML FLUSH FLUSH SCH ×2 (08:00→22:32)
--- NOTE | 2016-01-29 08:14 | HHI.PR ---
Subjective Remarks in no acute distress. denies pain. d/w the RN and no acute issues over night. Objective Vitals Vital Signs Date Time Temp Pulse Resp B/P Pulse Ox O2 Delivery O2 Flow Rate FiO2 01/29/16 00:00 98.5 69 19 103/53 93 01/28/16 20:00 97.0 72 19 101/57 97 01/28/16 16:00 97.3 67 16 92/54 93 01/28/16 12:00 97.8 69 16 100/55 94 I/O 01/28/16 01/28/16 01/28/16 01/29/16 01/29/16 01/29/16 07:00 15:00 23:00 07:00 15:00 23:00 Intake Total 448 ml 738 ml 481 ml 679 ml Output Total 600 ml 800 ml 550 ml 1150 ml Balance -152 ml -62 ml -69 ml -471 ml Intake Oral 0 ml 0 ml 0 ml 0 ml IV Total 237 ml 173 ml 222 ml Tube Feeding 348 ml 501 ml 308 ml 457 ml Other 100 ml Output Urine Total 600 ml 800 ml 550 ml 1150 ml # Bowel Movements 0 1 0 1 Result Diagram: 01/27/16 0406 01/25/16 0339 Imaging Last Impressions Abdomen/Pelvis CT 01/20/16 0000 Signed Impressions: Service Date/Time: Wednesday, January 20, 2016 07:16 - CONCLUSION: 1. Mild obstructive uropathy on the right without visualization of radiopaque calculus. The tip of the suprapubic catheter is wedged in the region of the right UVJ and may be causing the obstruction. Recommend repositioning of the suprapubic catheter. 2. Cholelithiasis. 3. Renal low densities bilaterally likely related to cyst. 4. Percutaneous gastrostomy tube. Dayday Edmonds MD Objective Remarks GENERAL: This is a well-nourished, well-developed patient, in no apparent distress. CARDIOVASCULAR: Regular rate and regular rhythm without murmurs, gallops, or rubs. RESPIRATORY: Clear to auscultation. Breath sounds equal bilaterally. No wheezes , rales, or rhonchi. GASTROINTESTINAL: Abdomen soft, non-tender, nondistended. Normal, active bowel sounds- PEG and suprapubic cath in place. MUSCULOSKELETAL: Extremities without clubbing, cyanosis, or edema. NEURO: awake and alert Medications and IVs Current Medications Ondansetron HCl (Zofran Inj) 4 mg STK-MED ONCE .ROUTE ; Start 01/20/16 at 05:19 ; Stop 01/20/16 at 05:20; Status DC Ondansetron HCl (Zofran Inj) 4 mg ONCE ONCE IVP Last administered on at 06:15; Start 01/20/16 at 05:30; Stop 01/20/16 at 05:31; Status DC IV Flush 2 ml 2 ml UNSCH PRN IVF FLUSH AFTER USING IV ACCESS; Start 01/20/16 at 05:30; Stop 01/20/16 at 10:19; Status DC Pantoprazole Sodium 80 mg/ Sodium Chloride 35 ml @ 420 mls/hr ONCE ONCE IV Last administered on 01/20/16at 06:57; Start 01/20/16 at 05:30; Stop 01/20/16 at 05:34; Status DC Pantoprazole Sodium/Sodium Chloride (Protonix Inj/NS Inj) 100 ml @ 10 mls/hr Q10H IV Last administered on 01/25/16at 04:36; Start 01/20/16 at 05:30; Stop at 08:06; Status DC Lidocaine HCl 2 ml 2 ml ONCE ONCE NEB Last administered on 01/20/16at 05:27; Start 01/20/16 at 05:30; Stop 01/20/16 at 05:31; Status DC Sodium Chloride (NS 1000 ml Inj) 1,000 ml @ 999 mls/hr Q1H1M IV Last administered on 01/20/16at 06:15; Start 01/20/16 at 06:00; Stop 01/20/16 at 07:00 ; Status DC Iohexol (Omnipaque 350 Inj) 95 ml STK-MED ONCE IV Last administered on at 07:20; Start 01/20/16 at 07:20; Stop 01/20/16 at 07:21; Status DC Diatrizoate Meglum/ Diatrizoate Sod 9 ml 9 ml STK-MED ONCE .ROUTE Last administered on 01/20/16at 07:47; Start 01/20/16 at 07:42; Stop 01/20/16 at 07:43 ; Status DC Sodium Chloride (NS 1000 ml Inj) 1,000 ml @ 83 mls/hr Q12H3M IV Last administered on 01/24/16at 23:27; Start 01/20/16 at 10:15; Stop 01/25/16 at 08:07 ; Status DC IV Flush (NS Flush) 2 ml UNSCH PRN FLUSH FLUSH AFTER USING IV ACCESS; Start at 10:15 IV Flush (NS Flush) 2 ml BID FLUSH Last administered on 01/28/16at 21:36; Start 01/20/16 at 21:00 Acetaminophen (Tylenol) 650 mg Q4H PRN PO TEMP > 100.4; Start 01/20/16 at 10:15 Ondansetron HCl (Zofran Inj) 4 mg Q6H PRN IVP NAUSEA OR VOMITING; Start at 10:15 Acetaminophen (Tylenol) 650 mg Q6H PRN PO PAIN SCALE 1 TO 2; Start 01/20/16 at 10:15 Naloxone HCl (Narcan Inj) 0.4 mg UNSCH PRN IV SEE LABEL COMMENTS; Start at 10:15 Albuterol/ Ipratropium (Duoneb Neb) 1 ampule Q2HR NEB PRN NEB wheezings; Start 01/20/16 at 10:15 Enalaprilat (Vasotec Inj) 1.25 mg Q6H PRN IV PUSH SBP>160, DBP>90; Start 01/19 at 10:15 Allopurinol (Zyloprim) 100 mg DAILY PEG Last administered on 01/28/16at 08:06; Start 01/21/16 at 09:00 Ranitidine HCl (Zantac Liq) 150 mg BID PEG Last administered on 01/28/16at 23: 09; Start 01/20/16 at 21:00 Mirtazapine (Remeron) 7.5 mg HS PEG Last administered on 01/28/16at 21:33; Start 01/20/16 at 21:00 Miscellaneous 1 ea 1 ea UNSCH PRN OTHER SEE LABEL COMMENTS Last administered on 01/25/16at 19:50; Start 01/20/16 at 14:15 Sodium Chloride (NS 1000 ml Inj) 1,000 ml @ 999 mls/hr BOLUS ONCE IV Last administered on 01/20/16at 15:21; Start 01/20/16 at 14:45; Stop 01/20/16 at 15:45 ; Status DC Loperamide HCl (Imodium) 2 mg Q6H PRN PO DIARRHEA; Start 01/21/16 at 12:45 Diphenoxylate HCl/ Atropine (Lomotil Tab) 2 tab Q6H PRN PO DIARRHEA; Start at 12:45 Midodrine (Proamatine) 5 mg TID@07,12,17 PO Last administered on 01/29/16at 06: 26; Start 01/21/16 at 17:00 Trimethoprim/ Sulfamethoxazole 20 ml 20 ml Q12H PO Last administered on at 05:54; Start 01/21/16 at 17:00; Stop 01/25/16 at 08:06; Status DC Cefazolin Sodium/ Sodium Chloride (Ancef Inj/NS Inj) 100 ml @ 200 mls/hr Q12H IV Last administered on 01/26/16at 08:04; Start 01/21/16 at 22:00; Stop at 08:51; Status DC Pantoprazole Sodium 40 mg 40 mg Q24H IV PUSH Last administered on 01/26/16at 08: 00; Start 01/26/16 at 08:15; Stop 01/26/16 at 08:51; Status DC Sodium Chloride (NS 1000 ml Inj) 1,000 ml @ 60 mls/hr [id number] ONCE IV Last administered on 01/25/16at 14:19; Start 01/25/16 at 08:06; Stop 01/26/16 at 00:45 ; Status DC Cefuroxime Axetil (Ceftin) 250 mg Q12HR PO Last administered on 01/27/16at 20:08 ; Start 01/26/16 at 21:00; Stop 01/28/16 at 08:00; Status DC Pantoprazole Sodium (Protonix) 40 mg DAILY PO Last administered on 01/28/16at 08 :06; Start 01/27/16 at 09:00 A/P Assessment and Plan A/P Upper GI bleed: Stable and no more episodes of GI bleed. continue PPI- monitor for recurrent bleeding- H/H stable- GI has signed off. Hypotension: Continue with Midodrine-BP overall stable. Loose stools: Resolved ;C-diff negative ; stool culture, ova and parasite negative. Continue with antidiarrhea motility agent when necessary and continue Lactinex Sacral tear/decub stage I: Wound care nurse consulted Parkinson's disease: With dementia and resting tremor. Stable Mood disorder: Stable on Remeron Mild obstructive uropathy: Appreciate input from urology, SPC was changed . - urine catheter to be changed monthly. UTI: Culture positive for Proteus mirabilis and GBS- finished the course of antibiotic. Calorie protein malnutrition: Tube Feed on continuous DVT prophylaxis: SCDs continue PT. Discharge Planning awaiting SNF placement- Lori Ontiveros MD Jan 29, 2016 08:14
[2016-01-29 09:16] VITALS: BP 105/58; PULSE 69; RESP 20; TEMP 98.1; O2SAT 95
[2016-01-29 11:47] VITALS: BP 111/58; PULSE 70; RESP 20; TEMP 98.7; O2SAT 95
[2016-01-29 17:55] VITALS: BP 105/65; PULSE 78; RESP 20; TEMP 97.5; O2SAT 96
[2016-01-29 19:57] VITALS: BP 104/59; PULSE 75; RESP 24; TEMP 97.4; O2SAT 95
[2016-01-29] MEDS: MIRTAZAPINE 15 MG TAB PEG SCH (22:31)
[2016-01-29 23:57] VITALS: BP 98/56; PULSE 80; RESP 24; TEMP 96.1; O2SAT 95
[2016-01-30] MEDS: MIDODRINE 5 MG TAB PO SCH ×3 (06:00→17:27)
[2016-01-30 09:12] VITALS: BP 96/60; PULSE 98; RESP 17; TEMP 97.2; O2SAT 94
[2016-01-30] MEDS: PANTOPRAZOLE SOD 40 MG DELAYED RELEASE TAB PO SCH (09:47)
[2016-01-30] MEDS: ALLOPURINOL 100 MG TAB PEG SCH (09:47)
[2016-01-30] MEDS: RANITIDINE HCL SYRUP 150 MG/10 ML UDC PEG SCH ×2 (09:47→20:06)
[2016-01-30] MEDS: SODIUM CHLORIDE 0.9% FLUSH 5 ML FLUSH FLUSH SCH ×2 (09:48→20:06)
--- NOTE | 2016-01-30 11:26 | HHI.PR ---
Subjective Remarks Follow up GI bleed, hypotension. Patient states that he feels "ok". Denies pain currently. Does have a lesion on his face that is bothering him. Objective Vitals Vital Signs Date Time Temp Pulse Resp B/P Pulse Ox O2 Delivery O2 Flow Rate FiO2 01/30/16 09:12 97.2 98 17 96/60 94 01/29/16 23:57 96.1 80 24 98/56 95 01/29/16 19:57 97.4 75 24 104/59 95 01/29/16 17:55 97.5 78 20 105/65 96 01/29/16 11:47 98.7 70 20 111/58 95 I/O 01/29/16 01/29/16 01/29/16 01/30/16 01/30/16 01/30/16 07:00 15:00 23:00 07:00 15:00 23:00 Intake Total 679 ml 1299 ml 474 ml 0 ml 0 ml Output Total 1150 ml 2300 ml 550 ml 700 ml Balance -471 ml -1001 ml -76 ml -700 ml 0 ml Intake Oral 0 ml 960 ml 0 ml 0 ml 0 ml IV Total 222 ml 0 ml Tube Feeding 457 ml 339 ml 474 ml Output Urine Total 1150 ml 2000 ml 550 ml 700 ml Stool Total 300 ml # Bowel Movements 1 0 0 1 Result Diagram: 01/27/16 0406 Imaging Last Impressions Abdomen/Pelvis CT 01/20/16 0000 Signed Impressions: Service Date/Time: Wednesday, January 20, 2016 07:16 - CONCLUSION: 1. Mild obstructive uropathy on the right without visualization of radiopaque calculus. The tip of the suprapubic catheter is wedged in the region of the right UVJ and may be causing the obstruction. Recommend repositioning of the suprapubic catheter. 2. Cholelithiasis. 3. Renal low densities bilaterally likely related to cyst. 4. Percutaneous gastrostomy tube. Dayday Edmonds MD Objective Remarks General: Elderly male in no acute distress. Heart: Regular rate and rhythm. No murmur. Lungs: Clear to auscultation bilaterally. No wheezes, rales, or rhonchi. Breathing is nonlabored. Abdomen: Soft, nontender, nondistended. PEG tube in place. Extremities: No lower extremity edema. Psych: Alert and oriented. Skin: Small area of erythema on face below right eye with central pustule. Procedures None Urinary Catheter: No Vascular Central Line Catheter: No A/P Problem List: (1) GI bleed Status: Resolved (2) Essential tremor Status: Chronic (3) Dementia Status: Chronic (4) Parkinson disease Status: Chronic (5) Hypotension Status: Resolved (6) Loose stools Status: Resolved Assessment and Plan 1. Upper GI bleed: Resolved. H&H are stable. GI signed off. Continue PPI. 2. Hypotension: Blood pressure stable, but low. Continue Midodrine. 3. Loose stools: Resolved. C. difficile negative. Stool culture and O&P negative. Continue Lactinex. 4. Stage I decubitus ulcer, sacral skin tear: Continue wound care. 5. Parkinson's disease: Patient has dementia and resting tremor. Chronic, stable. 6. Mood disorder: Stable on Remeron. 7. Mild obstructive uropathy: Appreciate urology recommendations. Suprapubic catheter in place, last changed 01/21/16. To be changed monthly. 8. UTI: Urine culture positive for Proteus mirabilis and GBS. Patient has finished a complete course of antibiotics. 9. Protein calorie malnutrition: Continue tube feeds. PEG tube is becoming clogged frequently. Consult GI. 10. Weakness: Continue PT. 11. DVT prophylaxis: SCDs. Avoid chemical prophylaxis secondary to GI bleed. 12. Skin lesion, face: Bactroban ointment. Discharge Planning Awaiting SNF placement. Case management assisting with discharge planning. No accepting facility at this time. Jaguar Carranza MD Jan 30, 2016 11:26
[2016-01-30 12:44] VITALS: BP 107/59; PULSE 76; RESP 20; TEMP 97.7; O2SAT 96
--- NOTE | 2016-01-30 13:59 | HHI.GIFU ---
Subjective Remarks GI reconsulted for malfunctioning PEG tube with frequent clogging. Pt has original PEG in place- #20. He is unsure how long this has been in. However, according to records, he had this during a previous hospitalization in July of 2015. (Lolita Main [place] GRIDER) Objective Vitals I&O Vital Signs Date Time Temp Pulse Resp B/P Pulse Ox O2 Delivery O2 Flow Rate FiO2 01/30/16 12:44 97.7 76 20 107/59 96 01/30/16 09:12 97.2 98 17 96/60 94 01/29/16 23:57 96.1 80 24 98/56 95 01/29/16 19:57 97.4 75 24 104/59 95 01/29/16 17:55 97.5 78 20 105/65 96 I/O 01/29/16 01/29/16 01/29/16 01/30/16 01/30/16 01/30/16 06:59 14:59 22:59 06:59 14:59 22:59 Intake Total 679 ml 1299 ml 474 ml 0 ml 0 ml Output Total 1150 ml 2300 ml 550 ml 700 ml 600 ml Balance -471 ml -1001 ml -76 ml -700 ml -600 ml Intake Oral 0 ml 960 ml 0 ml 0 ml 0 ml IV Total 222 ml 0 ml Tube Feeding 457 ml 339 ml 474 ml Output Urine Total 1150 ml 2000 ml 550 ml 700 ml 600 ml Stool Total 300 ml # Bowel Movements 1 0 0 1 0 Imaging Last Impressions Abdomen/Pelvis CT 01/20/16 0000 Signed Impressions: Service Date/Time: Wednesday, January 20, 2016 07:16 - CONCLUSION: 1. Mild obstructive uropathy on the right without visualization of radiopaque calculus. The tip of the suprapubic catheter is wedged in the region of the right UVJ and may be causing the obstruction. Recommend repositioning of the suprapubic catheter. 2. Cholelithiasis. 3. Renal low densities bilaterally likely related to cyst. 4. Percutaneous gastrostomy tube. Dayday Edmonds MD Physical Exam NECK: Neck is supple, no JVD, no lymphadenopathy. CHEST: CTA, diminished CARDIAC: RRR ABDOMEN: Soft, nondistended, nontender; PEG tube site without redness or swelling, suprapubic catheter in place. EXTREMITIES: No clubbing, cyanosis, or edema. 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 GI reconsulted for malfunctioning PEG tube with frequent clogging. Pt has original PEG in place- #20. He is unsure how long this has been in. However, according to records, he had this during a previous hospitalization in July of 2015. This was removed at bedside and replaced with #20 replacement PEG without difficulty. Tolerated well. Will get KUB with gastrografin to confirm placement. - Coffee ground emesis, resolved, HH likely dropped with hydration. No further signs of GI bleeding. Tolerating TF. HH 12.8/38.5 - UTI/Leukocytosis. Urine with Proteus Mirabilis, Group B Beta Strep. Abx per primary - Dementia, suprapubic catheter per attending Plan: - S/P Replacement peg #20 at bedside - KUB with gastrografin via peg to confirm placement - Okay to use once placement confirmed - Cont. PPI - Monitor HH - Notify GI of bleeding - Supportive care - Pt seen and examined by Dr. Benavides and myself and this note is written on her behalf (Lolita Main) Physician Comments agree with above (Idalia Benavides MD) Lolita Main Jan 30, 2016 13:59 Idalia Benavides MD Jan 30, 2016 18:10
[2016-01-30 16:05] VITALS: BP 105/64; PULSE 75; RESP 20; TEMP 96.9; O2SAT 96
--- NOTE | 2016-01-30 16:59 | RADRPT ---
EXAM DATE/TIME: 01/30/2016 14:17 [facility] COMPARISON: No previous studies available for comparison. INDICATIONS : Check placement of peg tube with gastrografin. MEDICAL HISTORY : None. SURGICAL HISTORY : None. ENCOUNTER: Initial ACUITY: 1 week PAIN SCORE: Non-responsive. LOCATION: Bilateral abdomen FINDINGS: Contrast injected through the patient's PEG tube reveals filling of a normal stomach and duodenum wit h no evidence of leakage of contrast. The tube appears to be in good position. Intestinal gas pattern is elsewhere benign. A calcification in the right upper quadrant may be a gallstone. There is mild s coliosis and degenerative changes in the spine. CONCLUSION: Satisfactory PEG tube positioning Mikael Valladares MD on January 30, 2016 at 16:56 Board Certified Radiologist. This report was verified electronically.
[2016-01-30] MEDS: MUPIROCIN 2% OINT 22 GM TUBE TOPICAL SCH ×2 (17:27→20:06)
[2016-01-30 20:00] VITALS: BP 92/54; PULSE 75; RESP 18; TEMP 97.9; O2SAT 94
[2016-01-30] MEDS: MIRTAZAPINE 15 MG TAB PEG SCH (20:06)
[2016-01-31] VITALS: BP 101/62; PULSE 74; RESP 16; TEMP 97.7; O2SAT 95
[2016-01-31] MEDS: MIDODRINE 5 MG TAB PO SCH ×3 (05:34→16:34)
[2016-01-31] MEDS: RANITIDINE HCL SYRUP 150 MG/10 ML UDC PEG SCH ×2 (08:05→20:10)
[2016-01-31] MEDS: SODIUM CHLORIDE 0.9% FLUSH 5 ML FLUSH FLUSH SCH ×2 (08:06→20:10)
[2016-01-31] MEDS: PANTOPRAZOLE SOD 40 MG DELAYED RELEASE TAB PO SCH (08:06)
[2016-01-31] MEDS: ALLOPURINOL 100 MG TAB PEG SCH (08:06)
[2016-01-31] MEDS: MUPIROCIN 2% OINT 22 GM TUBE TOPICAL SCH ×2 (08:08→20:11)
[2016-01-31 09:58] VITALS: BP 102/55; PULSE 73; RESP 17; TEMP 97.4; O2SAT 95
[2016-01-31 11:24] VITALS: BP 107/56; PULSE 72; RESP 19; TEMP 97.9; O2SAT 95
--- NOTE | 2016-01-31 15:29 | HHI.PR ---
Subjective Remarks laying in bed , sleeping , open eyes to verbal stimuli , erlin not answer qs Objective Vitals Vital Signs Date Time Temp Pulse Resp B/P Pulse Ox O2 Delivery O2 Flow Rate FiO2 01/31/16 11:24 97.9 72 19 107/56 95 01/31/16 09:58 97.4 73 17 102/55 95 01/31/16 00:00 97.7 74 16 101/62 95 01/30/16 20:00 97.9 75 18 92/54 94 01/30/16 16:05 96.9 75 20 105/64 96 I/O 01/30/16 01/30/16 01/30/16 01/31/16 01/31/16 01/31/16 07:00 15:00 23:00 07:00 15:00 23:00 Intake Total 0 ml 385 ml 380 ml 500 ml 1162 ml Output Total 700 ml 600 ml 350 ml 300 ml 500 ml Balance -700 ml -215 ml 30 ml 200 ml 662 ml Intake Oral 0 ml 0 ml 0 ml IV Total 0 ml 0 ml 0 ml 0 ml Tube Feeding 385 ml 330 ml 440 ml 1162 ml Other 50 ml 60 ml Output Urine Total 700 ml 600 ml 350 ml 300 ml 500 ml # Bowel Movements 1 0 1 3 2 Result Diagram: 01/27/16 0406 Objective Remarks GENERAL: This is a well-nourished, well-developed patient, in no apparent distress. CARDIOVASCULAR: Regular rate and rhythm without murmurs, gallops, or rubs. RESPIRATORY: fair air entery bilaterally. No wheezes, rales, or rhonchi. GASTROINTESTINAL: Abdomen soft, non-tender, nondistended. Normal active bowel sounds MUSCULOSKELETAL: Extremities without clubbing, cyanosis, or edema. NEURO: awake, Alert Procedures None A/P Problem List: (1) GI bleed Status: Resolved (2) Essential tremor Status: Chronic (3) Dementia Status: Chronic (4) Parkinson disease Status: Chronic (5) Hypotension Status: Resolved (6) Loose stools Status: Resolved Assessment and Plan update 01/30: continue current care , monitor bmp, h&h s/p PEG repair A/P: - Upper GI bleed: Resolved. H&H are stable. GI signed off. Continue PPI. - Hypotension: Blood pressure stable, but low. Continue Midodrine. - Loose stools: Resolved. C. difficile negative. Stool culture and O&P negative. Continue Lactinex. - Stage I decubitus ulcer, sacral skin tear: Continue wound care. - Parkinson's disease: Patient has dementia and resting tremor. Chronic, stable. - Mood disorder: Stable on Remeron. - Mild obstructive uropathy: Appreciate urology recommendations. Suprapubic catheter in place, last changed 01/21/16. To be changed monthly. - UTI: Urine culture positive for Proteus mirabilis and GBS. Patient has finished a complete course of antibiotics. - Protein calorie malnutrition: Continue tube feeds. PEG tube is becoming clogged frequently. Consulted GI. - Weakness: Continue PT. - DVT prophylaxis: SCDs. Avoid chemical prophylaxis secondary to GI bleed. - Skin lesion, face: Bactroban ointment. Suhail Haile MD Jan 31, 2016 15:29
[2016-01-31 16:47] VITALS: BP 93/53; PULSE 77; RESP 17; TEMP 97.4; O2SAT 95
[2016-01-31] MEDS: LOPERAMIDE HCL 2 MG CAP PO PRN (20:10)
[2016-01-31] MEDS: MIRTAZAPINE 15 MG TAB PEG SCH (20:10)
[2016-01-31 20:45] VITALS: BP 97/56; PULSE 74; RESP 18; TEMP 98; O2SAT 99
[2016-02-01 00:16] VITALS: BP 111/65; PULSE 72; RESP 17; TEMP 96.9; O2SAT 97
[2016-02-01 05:24] LABS: REVIEW FLAG FINAL
[2016-02-01] MEDS: MIDODRINE 5 MG TAB PO SCH ×3 (05:46→16:30)
[2016-02-01 05:48] LABS: POTASSIUM 4.1 MEQ/L (3.5-5.1)
[2016-02-01 08:00] VITALS: BP 102/50; PULSE 80; RESP 18; TEMP 98.8; O2SAT 94
[2016-02-01] MEDS: PANTOPRAZOLE SOD 40 MG DELAYED RELEASE TAB PO SCH (08:59)
[2016-02-01] MEDS: MUPIROCIN 2% OINT 22 GM TUBE TOPICAL SCH ×2 (08:59→19:51)
[2016-02-01] MEDS: ALLOPURINOL 100 MG TAB PEG SCH (08:59)
[2016-02-01] MEDS: RANITIDINE HCL SYRUP 150 MG/10 ML UDC PEG SCH ×2 (08:59→19:50)
[2016-02-01] MEDS: SODIUM CHLORIDE 0.9% FLUSH 5 ML FLUSH FLUSH SCH ×2 (08:59→20:03)
--- NOTE | 2016-02-01 11:30 | HHI.PR ---
Subjective Remarks Patient laying in bed woke up to verbal stimuli, smiling and pleasant He did not verbally answer question, but he nodded with his face that he agree about going to rehabilitation today Objective Vitals Vital Signs Date Time Temp Pulse Resp B/P Pulse Ox O2 Delivery O2 Flow Rate FiO2 02/01/16 08:00 98.8 80 18 102/50 94 02/01/16 00:16 96.9 72 17 111/65 97 01/31/16 20:45 98.0 74 18 97/56 99 01/31/16 16:47 97.4 77 17 93/53 95 I/O 01/31/16 01/31/16 01/31/16 02/01/16 02/01/16 02/01/16 07:00 15:00 23:00 07:00 15:00 23:00 Intake Total 500 ml 1162 ml 480 ml 154 ml Output Total 300 ml 500 ml 400 ml 400 ml Balance 200 ml 662 ml 80 ml -246 ml Intake Oral 0 ml IV Total 0 ml 0 ml Tube Feeding 440 ml 1162 ml 420 ml 154 ml Other 60 ml 60 ml Output Urine Total 300 ml 500 ml 400 ml 400 ml # Bowel Movements 3 2 0 1 Result Diagram: 02/01/16 0423 02/01/16 0423 Objective Remarks GENERAL: This is a well-nourished, well-developed patient, in no apparent distress. CARDIOVASCULAR: Regular rate and rhythm without murmurs, gallops, or rubs. RESPIRATORY: fair air entery bilaterally. No wheezes, rales, or rhonchi. GASTROINTESTINAL: Abdomen soft, non-tender, nondistended. Normal active bowel sounds MUSCULOSKELETAL: Extremities without clubbing, cyanosis, or edema. NEURO: awake, Alert Procedures None A/P Problem List: (1) GI bleed Status: Resolved (2) Essential tremor Status: Chronic (3) Dementia Status: Chronic (4) Parkinson disease Status: Chronic (5) Hypotension Status: Resolved (6) Loose stools Status: Resolved Assessment and Plan update 01/31: Patient doing well no acute issue, PEG tube functioning well I discussed with the nurse, ready to go to rehabilitation A/P: - Upper GI bleed: Resolved. H&H are stable. GI signed off. Continue PPI. - Hypotension: Blood pressure stable, but low. Continue Midodrine. - Loose stools: Resolved. C. difficile negative. Stool culture and O&P negative. Continue Lactinex. - Stage I decubitus ulcer, sacral skin tear: Continue wound care. - Parkinson's disease: Patient has dementia and resting tremor. Chronic, stable. - Mood disorder: Stable on Remeron. - Mild obstructive uropathy: Appreciate urology recommendations. Suprapubic catheter in place, last changed 01/21/16. To be changed monthly. - UTI: Urine culture positive for Proteus mirabilis and GBS. Patient has finished a complete course of antibiotics. - Protein calorie malnutrition: Continue tube feeds. PEG tube is becoming clogged frequently. Consulted GI. - Weakness: Continue PT. - DVT prophylaxis: SCDs. Avoid chemical prophylaxis secondary to GI bleed. - Skin lesion, face: Bactroban ointment. Suhail Haile MD Feb 01, 2016 11:29
--- NOTE | 2016-02-01 11:32 | HHI.DS ---
Discharge Summary Admission Date Jan 20, 2016 at 10:18 Admitting Diagnosis upper GI bleed (1) GI bleed (2) Essential tremor (3) Dementia (4) Parkinson disease (5) Hypotension (6) Loose stools Procedures PEG tube repair Brief History - From Admission 76 year-old male with a history of dementia, Parkinson disease was brought to the emergency department for evaluation of GI bleed per EMR record. Patient is unable to communicate my exam and history is obtained from ED report and chart review below: "This is a patient with a history of dementia who is G-tube fed who presents to the emergency department having had 2 episodes at his [facility], one last night and one this morning of coffee-ground emesis. Patient is unable to provide any history. Per the chart the patient does have a history of esophagitis. CBC/BMP: 02/01/16 0423 02/01/16 0423 Significant Findings Laboratory Tests Test 02/01/16 04:23 Hemoglobin 12.8 GM/DL (13.0-17.0) Hematocrit 38.0 % (39.0-51.0) Blood Urea Nitrogen 20 MG/DL (7-18) PE at Discharge GENERAL: This is a well-nourished, well-developed patient, in no apparent distress. CARDIOVASCULAR: Regular rate and rhythm without murmurs, gallops, or rubs. RESPIRATORY: fair air entery bilaterally. No wheezes, rales, or rhonchi. GASTROINTESTINAL: Abdomen soft, non-tender, nondistended. Normal active bowel sounds MUSCULOSKELETAL: Extremities without clubbing, cyanosis, or edema. NEURO: awake, Alert Hospital Course 76 years old male admitted for Upper GI bleed: Resolved. H&H are stable. GI signed off. Continue PPI. Hypotension: Blood pressure stable, but low. Continue Midodrine. Loose stools: Resolved. C. difficile negative. Stool culture and O&P negative. Continue Lactinex. Stage I decubitus ulcer, sacral skin tear: Continue wound care. Parkinson's disease: Patient has dementia and resting tremor. Chronic, stable. Mood disorder: Stable on Remeron. Mild obstructive uropathy: Appreciate urology recommendations. Suprapubic catheter in place, last changed 01/21/16. To be changed monthly. UTI: Urine culture positive for Proteus mirabilis and GBS. Patient has finished a complete course of antibiotics. Protein calorie malnutrition: Continue tube feeds. PEG tube is becoming clogged frequently. Consulted GI. Weakness: Continue PT. DVT prophylaxis: SCDs. Avoid chemical prophylaxis secondary to GI bleed. Skin lesion, face: Bactroban ointment.Patient doing well no acute issue, PEG tube functioning well I discussed with the nurse, ready to go to rehabilitation Pt Condition on Discharge: Fair Discharge Disposition: Discharge to SNF Discharge Time: > 30 minutes Discharge Instructions DIET: Follow Instructions for: On Tube Feeding Activities you can perform: See Additionl Instruction Other Activity Instructions: per PT New Medications: Midodrine (Proamatine 5 Mg Tab) 5 Mg Tab 5 MG PO TID@07,12,17 hpotnsion Days 15 TAB Pantoprazole Sodium (Pantoprazole Sodium) 40 Mg Tab 40 MG PO DAILY gi Days 30 TAB Continued Medications: Acetaminophen (Tylenol 325 Mg Tab) 325 Mg Tab 650 MG PEG Q8HR PRN PAIN TAB Allopurinol (Allopurinol) 100 Mg Tab 100 MG PEG DAILY TAB Calcium Carbonate-Vitamin D (Calcium + D) 600 Mg Tab 1 TAB PEG DAILY Colchicine (Colcrys) 0.6 Mg Tab 0.6 MG PEG DAILY PRN PAIN TAB Loperamide Hcl (Loperamide Hcl) 2 Mg Tab 2 MG PEG Q12HR DO NOT EXCEED 8 TABLETS/CAPSULES PER 24 HOURS PRN DIARRHEA TAB Mirtazapine (Remeron) 7.5 Mg Tab 7.5 MG PEG HS TAB Ranitidine Hcl (Zantac) 150 Mg Tab 150 MG PEG BID TAB Suhail Haile MD Feb 01, 2016 11:32
[2016-02-01 12:00] VITALS: BP 99/57; PULSE 80; RESP 18; TEMP 98.6; O2SAT 94
[2016-02-01 16:00] VITALS: BP 100/53; PULSE 85; RESP 18; TEMP 98.8; O2SAT 95
[2016-02-01 20:00] VITALS: BP 98/57; PULSE 76; RESP 17; TEMP 99.1; O2SAT 94
[2016-02-01] MEDS: MIRTAZAPINE 15 MG TAB PEG SCH (20:03)
[2016-02-02] VITALS: BP 96/60; PULSE 71; RESP 17; TEMP 97.8; O2SAT 95
[2016-02-02] MEDS: MIDODRINE 5 MG TAB PO SCH ×3 (05:07→16:53)
[2016-02-02 08:00] VITALS: BP 94/56; PULSE 77; RESP 16; TEMP 96.5; O2SAT 95
[2016-02-02] MEDS: MUPIROCIN 2% OINT 22 GM TUBE TOPICAL SCH ×2 (08:28→21:36)
[2016-02-02] MEDS: PANTOPRAZOLE SOD 40 MG DELAYED RELEASE TAB PO SCH (08:28)
[2016-02-02] MEDS: SODIUM CHLORIDE 0.9% FLUSH 5 ML FLUSH FLUSH SCH ×2 (08:28→21:36)
[2016-02-02] MEDS: ALLOPURINOL 100 MG TAB PEG SCH (08:28)
[2016-02-02] MEDS: RANITIDINE HCL SYRUP 150 MG/10 ML UDC PEG SCH (08:28)
--- NOTE | 2016-02-02 10:54 | HHI.PR ---
Subjective Remarks Laying in bed awake alert smiling No acute issue awaiting placement Objective Vitals Vital Signs Date Time Temp Pulse Resp B/P Pulse Ox O2 Delivery O2 Flow Rate FiO2 02/02/16 08:00 96.5 77 16 94/56 95 02/02/16 00:00 97.8 71 17 96/60 95 02/01/16 20:00 99.1 76 17 98/57 94 02/01/16 16:00 98.8 85 18 100/53 95 02/01/16 12:00 98.6 80 18 99/57 94 I/O 02/01/16 02/01/16 02/01/16 02/02/16 02/02/16 02/02/16 06:59 14:59 22:59 06:59 14:59 22:59 Intake Total 154 ml 428 ml 0 ml 488 ml Output Total 400 ml 350 ml 400 ml 300 ml Balance -246 ml 78 ml -400 ml 188 ml Intake Oral 0 ml 0 ml 0 ml IV Total 0 ml Tube Feeding 154 ml 428 ml 488 ml Output Urine Total 400 ml 350 ml 400 ml 300 ml # Bowel Movements 1 1 1 Result Diagram: 02/01/16 0423 02/01/16 0423 Imaging Last Impressions Abdomen X-Ray 01/30/16 0000 Signed Impressions: Service Date/Time: Saturday, January 30, 2016 14:17 - CONCLUSION: Satisfactory PEG tube positioning Mikael Valladares MD Abdomen/Pelvis CT 01/20/16 0000 Signed Impressions: Service Date/Time: Wednesday, January 20, 2016 07:16 - CONCLUSION: 1. Mild obstructive uropathy on the right without visualization of radiopaque calculus. The tip of the suprapubic catheter is wedged in the region of the right UVJ and may be causing the obstruction. Recommend repositioning of the suprapubic catheter. 2. Cholelithiasis. 3. Renal low densities bilaterally likely related to cyst. 4. Percutaneous gastrostomy tube. Dayday Edmonds MD Objective Remarks GENERAL: This is a well-nourished, well-developed patient, in no apparent distress. EYES: Right eye with sticky drainage NEURO: awake, Alert Procedures PEG tube repair A/P Problem List: (1) GI bleed ICD Code: K92.2 Status: Resolved (2) Essential tremor ICD Code: G25.0 Status: Chronic (3) Dementia ICD Code: F03.90 Status: Chronic (4) Parkinson disease ICD Code: G20 Status: Chronic (5) Hypotension ICD Code: I95.9 Status: Resolved (6) Loose stools ICD Code: R19.5 Status: Resolved Assessment and Plan update 02/01: continue current care , awaiting placement A/P: - Upper GI bleed: Resolved. H&H are stable. GI signed off. Continue PPI. - Hypotension: Blood pressure stable, but low. Continue Midodrine. - Loose stools: Resolved. C. difficile negative. Stool culture and O&P negative. Continue Lactinex. - Stage I decubitus ulcer, sacral skin tear: Continue wound care. - Parkinson's disease: Patient has dementia and resting tremor. Chronic, stable. - Mood disorder: Stable on Remeron. - Mild obstructive uropathy: Appreciate urology recommendations. Suprapubic catheter in place, last changed 01/21/16. To be changed monthly. - UTI: Urine culture positive for Proteus mirabilis and GBS. Patient has finished a complete course of antibiotics. - Protein calorie malnutrition: Continue tube feeds. PEG tube is becoming clogged frequently. Consulted GI. - Weakness: Continue PT. - DVT prophylaxis: SCDs. Avoid chemical prophylaxis secondary to GI bleed. - Skin lesion, face: Bactroban ointment. Discharge Planning awaiting placement Suhail Haile MD Feb 02, 2016 10:54
[2016-02-02 12:00] VITALS: BP 96/55; PULSE 74; RESP 17; TEMP 98.9; O2SAT 95
[2016-02-02 16:00] VITALS: BP 100/59; PULSE 74; RESP 17; TEMP 97.3; O2SAT 94
[2016-02-02 20:00] VITALS: BP 102/53; PULSE 71; RESP 16; TEMP 97.9; O2SAT 94
[2016-02-02] MEDS: MIRTAZAPINE 15 MG TAB PEG SCH (21:36)
[2016-02-02] MEDS: FAMOTIDINE 20 MG TAB PEG SCH (21:36)
[2016-02-03 00:48] VITALS: BP 102/64; PULSE 76; RESP 17; TEMP 97.3; O2SAT 97
[2016-02-03] MEDS: MIDODRINE 5 MG TAB PO SCH ×3 (05:52→17:53)
[2016-02-03 08:00] VITALS: BP 92/53; PULSE 77; RESP 16; TEMP 98.4; O2SAT 92
[2016-02-03] MEDS: PANTOPRAZOLE SOD 40 MG DELAYED RELEASE TAB PO SCH (09:00)
[2016-02-03] MEDS: FAMOTIDINE 20 MG TAB PEG SCH ×2 (10:44→21:19)
[2016-02-03] MEDS: SODIUM CHLORIDE 0.9% FLUSH 5 ML FLUSH FLUSH SCH ×2 (10:45→21:20)
[2016-02-03] MEDS: ALLOPURINOL 100 MG TAB PEG SCH (10:45)
[2016-02-03] MEDS: MUPIROCIN 2% OINT 22 GM TUBE TOPICAL SCH ×2 (10:46→21:20)
[2016-02-03 12:00] VITALS: BP 89/56; PULSE 103; RESP 18; TEMP 98.8; O2SAT 93
--- NOTE | 2016-02-03 12:31 | HHI.PR ---
Subjective Remarks laying in bed , no acute issues , does not answer qs awaitintg placement Objective Vitals Vital Signs Date Time Temp Pulse Resp B/P Pulse Ox O2 Delivery O2 Flow Rate FiO2 02/03/16 12:00 98.8 103 18 89/56 93 02/03/16 08:00 98.4 77 16 92/53 92 02/03/16 00:48 97.3 76 17 102/64 97 02/02/16 20:00 97.9 71 16 102/53 94 02/02/16 16:00 97.3 74 17 100/59 94 I/O 02/02/16 02/02/16 02/02/16 02/03/16 02/03/16 02/03/16 07:00 15:00 23:00 07:00 15:00 23:00 Intake Total 488 ml 419 ml 492 ml 442 ml Output Total 300 ml 425 ml 275 ml 400 ml Balance 188 ml -6 ml 217 ml 42 ml Intake Oral 0 ml 0 ml IV Total 0 ml 0 ml Tube Feeding 488 ml 419 ml 442 ml 442 ml Other 50 ml Output Urine Total 300 ml 425 ml 275 ml 400 ml # Bowel Movements 2 2 3 Result Diagram: 02/01/16 0423 02/01/16 0423 Objective Remarks GENERAL: This is a well-nourished, well-developed patient, in no apparent distress. EYES: Right eye with sticky drainage NEURO: awake, Alert Procedures PEG tube repair A/P Problem List: (1) GI bleed ICD Code: K92.2 Status: Resolved (2) Essential tremor ICD Code: G25.0 Status: Chronic (3) Dementia ICD Code: F03.90 Status: Chronic (4) Parkinson disease ICD Code: G20 Status: Chronic (5) Hypotension ICD Code: I95.9 Status: Resolved (6) Loose stools ICD Code: R19.5 Status: Resolved Assessment and Plan update 02/02: continue current care , awaiting placement A/P: - Upper GI bleed: Resolved. H&H are stable. GI signed off. Continue PPI. - Hypotension: Blood pressure stable, but low. Continue Midodrine. - Loose stools: Resolved. C. difficile negative. Stool culture and O&P negative. Continue Lactinex. - Stage I decubitus ulcer, sacral skin tear: Continue wound care. - Parkinson's disease: Patient has dementia and resting tremor. Chronic, stable. - Mood disorder: Stable on Remeron. - Mild obstructive uropathy: Appreciate urology recommendations. Suprapubic catheter in place, last changed 01/21/16. To be changed monthly. - UTI: Urine culture positive for Proteus mirabilis and GBS. Patient has finished a complete course of antibiotics. - Protein calorie malnutrition: Continue tube feeds. PEG tube is becoming clogged frequently. Consulted GI. - Weakness: Continue PT. - DVT prophylaxis: SCDs. Avoid chemical prophylaxis secondary to GI bleed. - Skin lesion, face: Bactroban ointment. Discharge Planning awaiting placement Suhail Haile MD Feb 03, 2016 12:31
[2016-02-03 16:00] VITALS: BP 100/56; PULSE 74; RESP 17; TEMP 97.4; O2SAT 94
[2016-02-03 20:00] VITALS: BP 120/72; PULSE 73; RESP 18; TEMP 95.8; O2SAT 96
[2016-02-03] MEDS: MIRTAZAPINE 15 MG TAB PEG SCH (21:19)
[2016-02-04] VITALS: BP 115/71; PULSE 76; RESP 18; TEMP 96.9; O2SAT 96
[2016-02-04] MEDS: MIDODRINE 5 MG TAB PO SCH ×3 (05:34→17:48)
[2016-02-04 08:00] VITALS: BP 97/57; PULSE 73; RESP 16; TEMP 97.4; O2SAT 96
[2016-02-04] MEDS: PANTOPRAZOLE SOD 40 MG DELAYED RELEASE TAB PO SCH (09:00)
[2016-02-04] MEDS: FAMOTIDINE 20 MG TAB PEG SCH ×2 (09:24→20:16)
[2016-02-04] MEDS: MUPIROCIN 2% OINT 22 GM TUBE TOPICAL SCH ×2 (09:24→20:16)
[2016-02-04] MEDS: ALLOPURINOL 100 MG TAB PEG SCH (09:24)
[2016-02-04] MEDS: SODIUM CHLORIDE 0.9% FLUSH 5 ML FLUSH FLUSH SCH ×2 (09:24→20:16)
[2016-02-04 12:00] VITALS: BP 92/56; PULSE 81; RESP 15; TEMP 98.7; O2SAT 94
--- NOTE | 2016-02-04 13:04 | HHI.PR ---
Subjective Remarks Resting in bed tonight complain, no fever or chills Awaiting placement,ss pending Objective Vitals Vital Signs Date Time Temp Pulse Resp B/P Pulse Ox O2 Delivery O2 Flow Rate FiO2 02/04/16 12:00 98.7 81 15 92/56 94 02/04/16 08:00 97.4 73 16 97/57 96 02/04/16 00:00 96.9 76 18 115/71 96 02/03/16 20:00 95.8 73 18 120/72 96 02/03/16 16:00 97.4 74 17 100/56 94 I/O 02/03/16 02/03/16 02/03/16 02/04/16 02/04/16 02/04/16 07:00 15:00 23:00 07:00 15:00 23:00 Intake Total 442 ml 303 ml 400 ml 400 ml 267 ml Output Total 400 ml 425 ml 200 ml 400 ml Balance 42 ml -122 ml 200 ml 0 ml 267 ml Intake Oral 0 ml 0 ml IV Total 0 ml 0 ml 0 ml Tube Feeding 442 ml 243 ml 400 ml 400 ml 207 ml Tube Irrigant 60 ml 60 ml Output Urine Total 400 ml 425 ml 200 ml 400 ml # Bowel Movements 3 1 Result Diagram: 02/01/1642202/01/16422 Objective Remarks GENERAL: This is a well-nourished, well-developed patient, in no apparent distress. EYES: Right eye with sticky drainage NEURO: awake, Alert Procedures PEG tube repair A/P Problem List: (1) GI bleed ICD Code: K92.2 Status: Resolved (2) Essential tremor ICD Code: G25.0 Status: Chronic (3) Dementia ICD Code: F03.90 Status: Chronic (4) Parkinson disease ICD Code: G20 Status: Chronic (5) Hypotension ICD Code: I95.9 Status: Resolved (6) Loose stools ICD Code: R19.5 Status: Resolved Assessment and Plan update 02/02: continue current care , awaiting placement 02/03: Assessment the review, continue current care, , [place] A/P: - Upper GI bleed: Resolved. H&H are stable. GI signed off. Continue PPI. - Hypotension: Blood pressure stable, but low. Continue Midodrine. - Loose stools: Resolved. C. difficile negative. Stool culture and O&P negative. Continue Lactinex. - Stage I decubitus ulcer, sacral skin tear: Continue wound care. - Parkinson's disease: Patient has dementia and resting tremor. Chronic, stable. - Mood disorder: Stable on Remeron. - Mild obstructive uropathy: Appreciate urology recommendations. Suprapubic catheter in place, last changed 01/21/16. To be changed monthly. - UTI: Urine culture positive for Proteus mirabilis and GBS. Patient has finished a complete course of antibiotics. - Protein calorie malnutrition: Continue tube feeds. PEG tube is becoming clogged frequently. Consulted GI. - Weakness: Continue PT. - DVT prophylaxis: SCDs. Avoid chemical prophylaxis secondary to GI bleed. - Skin lesion, face: Bactroban ointment. Discharge Planning awaiting placement Suhail Haile MD Feb 04, 2016 13:03
[2016-02-04 16:00] VITALS: BP 100/53; PULSE 75; RESP 16; TEMP 98.1; O2SAT 93
[2016-02-04 20:00] VITALS: BP 101/54; PULSE 70; RESP 18; TEMP 96.7; O2SAT 94
[2016-02-04] MEDS: MIRTAZAPINE 15 MG TAB PEG SCH (20:16)
[2016-02-05] VITALS: BP 102/54; PULSE 67; RESP 18; TEMP 96.9; O2SAT 93
[2016-02-05 04:53] LABS: HEMATOCRIT 37.9 % (39.0-51.0); REVIEW FLAG FINAL
[2016-02-05] MEDS: MIDODRINE 5 MG TAB PO SCH ×3 (05:54→16:25)
[2016-02-05 08:15] VITALS: BP 105/63; PULSE 71; RESP 17; TEMP 97.3; O2SAT 95
[2016-02-05] MEDS: MUPIROCIN 2% OINT 22 GM TUBE TOPICAL SCH ×2 (08:40→21:22)
[2016-02-05] MEDS: PANTOPRAZOLE SOD 40 MG DELAYED RELEASE TAB PO SCH (08:40)
[2016-02-05] MEDS: SODIUM CHLORIDE 0.9% FLUSH 5 ML FLUSH FLUSH SCH ×2 (08:40→21:22)
[2016-02-05] MEDS: FAMOTIDINE 20 MG TAB PEG SCH ×2 (08:40→21:22)
[2016-02-05] MEDS: ALLOPURINOL 100 MG TAB PEG SCH (08:40)
[2016-02-05 12:04] VITALS: BP 101/63; PULSE 76; RESP 18; TEMP 97.8; O2SAT 96
--- NOTE | 2016-02-05 12:31 | HHI.PR ---
Subjective Remarks Resting in bed comfortably in no acute issue Still awaiting placement at rehabilitation Objective Vitals Vital Signs Date Time Temp Pulse Resp B/P Pulse Ox O2 Delivery O2 Flow Rate FiO2 02/05/16 12:04 97.8 76 18 101/63 96 02/05/16 08:15 97.3 71 17 105/63 95 02/05/16 00:00 96.9 67 18 102/54 93 02/04/16 20:00 96.7 70 18 101/54 94 02/04/16 16:00 98.1 75 16 100/53 93 I/O 02/04/16 02/04/16 02/04/16 02/05/16 02/05/16 02/05/16 07:00 15:00 23:00 07:00 15:00 23:00 Intake Total 400 ml 537 ml 440 ml 540 ml 0 ml Output Total 400 ml 275 ml 350 ml 400 ml Balance 0 ml 262 ml 90 ml 140 ml 0 ml Intake Oral 0 ml 0 ml 0 ml 0 ml IV Total 0 ml 0 ml Tube Feeding 400 ml 447 ml 440 ml 440 ml Tube Irrigant 90 ml 100 ml Output Urine Total 400 ml 275 ml 350 ml 400 ml # Bowel Movements 1 1 Result Diagram: 02/05/16 0417 02/01/16 0423 Objective Remarks GENERAL: This is a well-nourished, well-developed patient, in no apparent distress. EYES: Right eye with sticky drainage NEURO: awake, Alert Procedures PEG tube repair A/P Problem List: (1) GI bleed ICD Code: K92.2 Status: Resolved (2) Essential tremor ICD Code: G25.0 Status: Chronic (3) Dementia ICD Code: F03.90 Status: Chronic (4) Parkinson disease ICD Code: G20 Status: Chronic (5) Hypotension ICD Code: I95.9 Status: Resolved (6) Loose stools ICD Code: R19.5 Status: Resolved Assessment and Plan update 02/02: continue current care , awaiting placement 02/03: Assessment the review, continue current care, 02/04: Continue current care awaiting rehabilitation placement, a consult case management for follow up and update plan A/P: - Upper GI bleed: Resolved. H&H are stable. GI signed off. Continue PPI. - Hypotension: Blood pressure stable, but low. Continue Midodrine. - Loose stools: Resolved. C. difficile negative. Stool culture and O&P negative. Continue Lactinex. - Stage I decubitus ulcer, sacral skin tear: Continue wound care. - Parkinson's disease: Patient has dementia and resting tremor. Chronic, stable. - Mood disorder: Stable on Remeron. - Mild obstructive uropathy: Appreciate urology recommendations. Suprapubic catheter in place, last changed 01/21/16. To be changed monthly. - UTI: Urine culture positive for Proteus mirabilis and GBS. Patient has finished a complete course of antibiotics. - Protein calorie malnutrition: Continue tube feeds. PEG tube is becoming clogged frequently. Consulted GI. - Weakness: Continue PT. - DVT prophylaxis: SCDs. Avoid chemical prophylaxis secondary to GI bleed. - Skin lesion, face: Bactroban ointment. Discharge Planning awaiting placement Suhail Haile MD Feb 05, 2016 12:31
[2016-02-05 16:59] VITALS: BP 98/53; PULSE 68; RESP 17; TEMP 98; O2SAT 95
[2016-02-05 20:00] VITALS: BP 103/62; PULSE 72; RESP 18; TEMP 95.7; O2SAT 94
[2016-02-05] MEDS: MIRTAZAPINE 15 MG TAB PEG SCH (21:22)
[2016-02-06] VITALS: BP 92/59; PULSE 79; RESP 18; TEMP 96.3; O2SAT 95
[2016-02-06] MEDS: MIDODRINE 5 MG TAB PO SCH ×3 (06:02→16:52)
[2016-02-06 07:58] VITALS: BP 105/63; PULSE 71; RESP 17; TEMP 97.5; O2SAT 96
[2016-02-06] MEDS: PANTOPRAZOLE SOD 40 MG DELAYED RELEASE TAB PO SCH (09:00)
[2016-02-06] MEDS: MUPIROCIN 2% OINT 22 GM TUBE TOPICAL SCH ×2 (09:17→21:59)
[2016-02-06] MEDS: ALLOPURINOL 100 MG TAB PEG SCH (09:17)
[2016-02-06] MEDS: FAMOTIDINE 20 MG TAB PEG SCH ×2 (09:17→21:52)
[2016-02-06] MEDS: SODIUM CHLORIDE 0.9% FLUSH 5 ML FLUSH FLUSH SCH ×2 (09:17→21:51)
[2016-02-06 12:03] VITALS: BP 96/51; PULSE 70; RESP 20; TEMP 98.9; O2SAT 95
--- NOTE | 2016-02-06 14:20 | HHI.PR ---
Subjective Remarks Patient resting in bed comfortably, he denied complain, however right is still showing some dry drainage Objective Vitals Vital Signs Date Time Temp Pulse Resp B/P Pulse Ox O2 Delivery O2 Flow Rate FiO2 02/06/16 12:03 98.9 70 20 96/51 95 02/06/16 07:58 97.5 71 17 105/63 96 02/06/16 00:00 96.3 79 18 92/59 95 02/05/16 20:00 95.7 72 18 103/62 94 02/05/16 16:59 98.0 68 17 98/53 95 I/O 02/05/16 02/05/16 02/05/16 02/06/16 02/06/16 02/06/16 07:00 15:00 23:00 07:00 15:00 23:00 Intake Total 540 ml 415 ml 442 ml 442 ml 0 ml Output Total 400 ml 500 ml 200 ml 500 ml 400 ml Balance 140 ml -85 ml 242 ml -58 ml -400 ml Intake Oral 0 ml 0 ml 0 ml 0 ml 0 ml IV Total 0 ml 0 ml 0 ml Tube Feeding 440 ml 415 ml 442 ml 442 ml Tube Irrigant 100 ml Output Urine Total 400 ml 500 ml 200 ml 500 ml 400 ml # Bowel Movements 1 0 1 0 Result Diagram: 02/05/16 0417 Objective Remarks GENERAL: This is a well-nourished, well-developed patient, in no apparent distress. EYES: Right eye with sticky drainage NEURO: awake, Alert Procedures PEG tube repair A/P Problem List: (1) GI bleed ICD Code: K92.2 Status: Resolved (2) Essential tremor ICD Code: G25.0 Status: Chronic (3) Dementia ICD Code: F03.90 Status: Chronic (4) Parkinson disease ICD Code: G20 Status: Chronic (5) Hypotension ICD Code: I95.9 Status: Resolved (6) Loose stools ICD Code: R19.5 Status: Resolved Assessment and Plan update 02/02: continue current care , awaiting placement 02/03: Assessment the review, continue current care, 02/04: Continue current care awaiting rehabilitation placement, a consult case management for follow up and update plan 02/05: Continue current care, awaiting placement Right eye infection possibly conjunctivitis: He is on mupirocin no improvement, start Cipro eyedrop, monitor improvement A/P: - Upper GI bleed: Resolved. H&H are stable. GI signed off. Continue PPI. - Hypotension: Blood pressure stable, Continue Midodrine. - Loose stools: Resolved. C. difficile negative. Stool culture and O&P negative. Continue Lactinex. - Stage I decubitus ulcer, sacral skin tear: Continue wound care. - Parkinson's disease: Patient has dementia and resting tremor. Chronic, stable. - Mood disorder: Stable on Remeron. - Mild obstructive uropathy: Appreciate urology recommendations. Suprapubic catheter in place, last changed 01/21/16. To be changed monthly. - UTI: Urine culture positive for Proteus mirabilis and GBS. Patient has finished a complete course of antibiotics. - Protein calorie malnutrition: Continue tube feeds. PEG tube is becoming clogged frequently. Consulted GI. - Weakness: Continue PT. - DVT prophylaxis: SCDs. Avoid chemical prophylaxis secondary to GI bleed. - Skin lesion, face: Bactroban ointment. Discharge Planning awaiting placement Suhail Haile MD Feb 06, 2016 14:20
[2016-02-06 16:52] VITALS: BP 97/55; PULSE 71; RESP 20; TEMP 97.8; O2SAT 95
[2016-02-06] MEDS: CIPROFLOXACIN 0.3% OPTH SOLN 2.5 ML BTL EACH EYE SCH ×2 (16:52→21:59)
[2016-02-06 20:00] VITALS: BP 103/57; PULSE 68; RESP 18; TEMP 97.5; O2SAT 93
[2016-02-06] MEDS: MIRTAZAPINE 15 MG TAB PEG SCH (21:52)
[2016-02-07] VITALS: BP 96/56; PULSE 75; RESP 16; TEMP 97.5; O2SAT 94
[2016-02-07] MEDS: CIPROFLOXACIN 0.3% OPTH SOLN 2.5 ML BTL EACH EYE SCH ×6 (04:34→20:08)
[2016-02-07] MEDS: MIDODRINE 5 MG TAB PO SCH ×3 (06:00→17:00)
[2016-02-07 07:53] VITALS: BP 100/60; PULSE 67; RESP 18; TEMP 98.8; O2SAT 95
[2016-02-07] MEDS: MUPIROCIN 2% OINT 22 GM TUBE TOPICAL SCH ×2 (08:03→20:08)
[2016-02-07] MEDS: FAMOTIDINE 20 MG TAB PEG SCH ×2 (08:03→20:06)
[2016-02-07] MEDS: PANTOPRAZOLE SOD 40 MG DELAYED RELEASE TAB PO SCH (08:03)
[2016-02-07] MEDS: ALLOPURINOL 100 MG TAB PEG SCH (08:03)
--- NOTE | 2016-02-07 09:11 | HHI.PR ---
Subjective Remarks Patient did not engage with me in conversation. He just shook his head. Nursing staff at bedside states no active changes or concerns overnight. Objective Vitals Vital Signs Date Time Temp Pulse Resp B/P Pulse Ox O2 Delivery O2 Flow Rate FiO2 02/07/16 07:53 98.8 67 18 100/60 95 02/07/16 00:00 97.5 75 16 96/56 94 96/ 02/06/16 20:00 97.5 68 18 103/57 93 02/06/16 16:52 97.8 71 20 97/55 95 02/06/16 12:03 98.9 70 20 96/51 95 I/O 02/06/16 02/06/16 02/06/16 02/07/16 02/07/16 02/07/16 07:00 15:00 23:00 07:00 15:00 23:00 Intake Total 442 ml 1305 ml 366 ml 355 ml 0 ml Output Total 500 ml 400 ml 300 ml 200 ml Balance -58 ml 905 ml 66 ml 155 ml 0 ml Intake Oral 0 ml 0 ml 0 ml IV Total 0 ml Tube Feeding 442 ml 1305 ml 366 ml 355 ml Output Urine Total 500 ml 400 ml 300 ml 200 ml # Bowel Movements 1 0 2 0 Result Diagram: 02/05/16 0417 Objective Remarks GENERAL: This is a well-nourished, well-developed patient, in no apparent distress. CARDIOVASCULAR: Regular rate and rhythm RESPIRATORY: Clear to auscultation. Breath sounds equal bilaterally. No wheezes , rales, or rhonchi. GASTROINTESTINAL: Abdomen soft, non-tender, nondistended. Normal active bowel sounds, G-tube in place. MUSCULOSKELETAL: Extremities without clubbing, cyanosis, or edema. NEURO: Sleepy, opens eyes to voice and shakes and nods his head. Moves all ext x4 Procedures PEG tube repair A/P Problem List: (1) GI bleed ICD Code: K92.2 Status: Resolved (2) Essential tremor ICD Code: G25.0 Status: Chronic (3) Dementia ICD Code: F03.90 Status: Chronic (4) Parkinson disease ICD Code: G20 Status: Chronic (5) Hypotension ICD Code: I95.9 Status: Resolved (6) Loose stools ICD Code: R19.5 Status: Resolved Assessment and Plan Right eye infection possibly conjunctivitis: Cipro eyedrop through February [address] Haile previous hospitalist, monitor improvement, no active discharge seen. - Upper GI bleed: Resolved. H&H are stable. GI signed off. Continue PPI. - Hypotension: Blood pressure stable, Continue Midodrine. - Loose stools: Resolved. C. difficile negative. Stool culture and O&P negative. Continue Lactinex. Last Imodium was given on January 30 - Stage I decubitus ulcer, sacral skin tear: Continue local wound care. - Parkinson's disease: Patient has dementia and resting tremor. Chronic, stable. - Mood disorder: Stable on Remeron. - Mild obstructive uropathy: Appreciate urology recommendations. Suprapubic catheter in place, last changed 01/21/16. To be changed monthly. - UTI: Urine culture positive for Proteus mirabilis and GBS. Patient has finished a complete course of antibiotics. - Protein calorie malnutrition: Continue tube feeds. Currently tolerating Jevity 1.5 at 60 mg per hour - Generalized Weakness: Continue PT. - DVT prophylaxis: SCDs. Avoid chemical prophylaxis secondary to GI bleed. Discharge Planning Currently awaiting placement. Shaina Sanford MD Feb 07, 2016 09:11
[2016-02-07 11:53] VITALS: BP 101/62; PULSE 63; RESP 20; TEMP 98.7; O2SAT 96
[2016-02-07] MEDS: SODIUM CHLORIDE 0.9% FLUSH 5 ML FLUSH FLUSH SCH ×2 (12:36→20:06)
[2016-02-07 15:34] VITALS: BP 99/56; PULSE 64; RESP 17; TEMP 97.7; O2SAT 98
[2016-02-07 20:00] VITALS: BP 97/57; PULSE 70; RESP 16; TEMP 96.1; O2SAT 96
[2016-02-07] MEDS: MIRTAZAPINE 15 MG TAB PEG SCH (20:06)
[2016-02-08] VITALS: BP 90/53; PULSE 63; RESP 16; TEMP 96.4; O2SAT 93
[2016-02-08] MEDS: MIDODRINE 5 MG TAB PO SCH ×3 (04:24→17:02)
[2016-02-08] MEDS: CIPROFLOXACIN 0.3% OPTH SOLN 2.5 ML BTL EACH EYE SCH ×6 (04:25→20:51)
[2016-02-08 08:00] VITALS: BP 103/66; PULSE 77; RESP 19; TEMP 97.3; O2SAT 95
--- NOTE | 2016-02-08 10:01 | HHI.PR ---
Subjective Remarks Patient had no questions or concerns. No concerns from nursing staff. Objective Vitals Vital Signs Date Time Temp Pulse Resp B/P Pulse Ox O2 Delivery O2 Flow Rate FiO2 02/08/16 08:00 97.3 77 19 103/66 95 02/08/16 00:00 96.4 63 16 90/53 93 02/07/16 20:00 96.1 70 16 97/57 96 02/07/16 15:34 97.7 64 17 99/56 98 02/07/16 11:53 98.7 63 20 101/62 96 I/O 02/07/16 02/07/16 02/07/16 02/08/16 02/08/16 02/08/16 07:00 15:00 23:00 07:00 15:00 23:00 Intake Total 355 ml 0 ml 804 ml 429 ml Output Total 200 ml 400 ml 250 ml 450 ml Balance 155 ml -400 ml 554 ml -21 ml Intake Oral 0 ml Tube Feeding 355 ml 804 ml 429 ml Output Urine Total 200 ml 400 ml 250 ml 450 ml # Bowel Movements 0 1 3 2 Result Diagram: 02/05/16 0417 Objective Remarks GENERAL: This is a well-nourished, well-developed patient, in no apparent distress. CARDIOVASCULAR: Regular rate and rhythm RESPIRATORY: Clear to auscultation. Breath sounds equal bilaterally. No wheezes , rales, or rhonchi. GASTROINTESTINAL: Abdomen soft, non-tender, nondistended. Normal active bowel sounds, G-tube in place. MUSCULOSKELETAL: Extremities without clubbing, cyanosis, or edema. NEURO: Awake, shakes and nods his head. Moves all ext x4, follows directions. Procedures PEG tube repair A/P Problem List: (1) GI bleed ICD Code: K92.2 Status: Resolved (2) Essential tremor ICD Code: G25.0 Status: Chronic (3) Dementia ICD Code: F03.90 Status: Chronic (4) Parkinson disease ICD Code: G20 Status: Chronic (5) Hypotension ICD Code: I95.9 Status: Resolved (6) Loose stools ICD Code: R19.5 Status: Resolved Assessment and Plan Right eye infection possibly conjunctivitis: Clinical improving, Cipro eyedrop through February [address] Haile previous hospitalist, continue to monitor improvement, no active discharge seen. - Upper GI bleed: Resolved. H&H are stable. GI signed off. Continue PPI. - Hypotension: Blood pressure stable, Continue Midodrine. - Previous Loose stools: Resolved. C. difficile negative. Stool culture and O&P negative. Continue Lactinex. Last Imodium was given on January 30 - Stage I decubitus ulcer, sacral skin tear: Continue local wound care. - Parkinson's disease: Patient has dementia and resting tremor. Chronic, stable. - Mood disorder: Stable on Remeron. - Mild obstructive uropathy: Appreciate urology recommendations. Suprapubic catheter in place, last changed 01/21/16. To be changed monthly. - UTI: Urine culture positive for Proteus mirabilis and GBS. Patient has finished a complete course of antibiotics. - Protein calorie malnutrition: Continue tube feeds. Currently tolerating Jevity 1.5 at 60 mg per hour - Generalized Weakness: Continue PT. - DVT prophylaxis: SCDs. Avoid chemical prophylaxis secondary to GI bleed. Continue current care with no adjustment of medications today. Discharge Planning Currently awaiting placement. Shaina Sanford MD Feb 08, 2016 10:01
[2016-02-08] MEDS: FAMOTIDINE 20 MG TAB PEG SCH ×2 (10:50→20:55)
[2016-02-08] MEDS: PANTOPRAZOLE SOD 40 MG DELAYED RELEASE TAB PO SCH (10:50)
[2016-02-08] MEDS: ALLOPURINOL 100 MG TAB PEG SCH (10:50)
[2016-02-08] MEDS: SODIUM CHLORIDE 0.9% FLUSH 5 ML FLUSH FLUSH SCH ×2 (10:51→20:52)
[2016-02-08] MEDS: MUPIROCIN 2% OINT 22 GM TUBE TOPICAL SCH ×2 (10:51→21:04)
[2016-02-08 12:00] VITALS: BP 100/67; PULSE 78; RESP 18; TEMP 97.4; O2SAT 94
[2016-02-08 20:00] VITALS: BP 104/63; PULSE 63; RESP 20; TEMP 96.6; O2SAT 94
[2016-02-08] MEDS: MIRTAZAPINE 15 MG TAB PEG SCH (20:55)
[2016-02-08] MEDS: PILL SPLITTER OTHER PRN (20:56)
[2016-02-09] VITALS: BP 112/69; PULSE 60; RESP 18; TEMP 97.8; O2SAT 96
[2016-02-09] MEDS: LOPERAMIDE HCL 2 MG CAP PO PRN (00:04)
[2016-02-09] MEDS: CIPROFLOXACIN 0.3% OPTH SOLN 2.5 ML BTL EACH EYE SCH ×6 (00:05→19:34)
[2016-02-09] MEDS: MIDODRINE 5 MG TAB PO SCH ×3 (05:40→17:22)
[2016-02-09 08:53] VITALS: BP 93/53; PULSE 72; RESP 19; TEMP 97.3; O2SAT 95
[2016-02-09] MEDS: ALLOPURINOL 100 MG TAB PEG SCH (09:54)
[2016-02-09] MEDS: MUPIROCIN 2% OINT 22 GM TUBE TOPICAL SCH ×2 (09:54→19:34)
[2016-02-09] MEDS: FAMOTIDINE 20 MG TAB PEG SCH ×2 (09:54→19:34)
[2016-02-09] MEDS: PANTOPRAZOLE SOD 40 MG DELAYED RELEASE TAB PO SCH (09:54)
[2016-02-09] MEDS: SODIUM CHLORIDE 0.9% FLUSH 5 ML FLUSH FLUSH SCH ×2 (09:55→19:34)
[2016-02-09 12:13] VITALS: BP 113/65; PULSE 71; RESP 20; TEMP 98.7; O2SAT 95
--- NOTE | 2016-02-09 18:43 | HHI.PR ---
Subjective Remarks denies any complaints denies cp/sob no fevers/chills stable vital signs Objective Vitals Vital Signs Date Time Temp Pulse Resp B/P Pulse Ox O2 Delivery O2 Flow Rate FiO2 02/09/16 12:13 98.7 71 20 113/65 95 02/09/16 08:53 97.3 72 19 93/53 95 02/09/16 00:00 97.8 60 18 112/69 96 02/08/16 20:00 96.6 63 20 104/63 94 I/O 02/08/16 02/08/16 02/08/16 02/09/16 02/09/16 02/09/16 07:00 15:00 23:00 07:00 15:00 23:00 Intake Total 429 ml 0 ml 595 ml 497 ml 447 ml Output Total 450 ml 450 ml 500 ml 450 ml 400 ml Balance -21 ml -450 ml 95 ml 47 ml 47 ml Intake Oral 0 ml 0 ml 0 ml 0 ml Tube Feeding 429 ml 595 ml 377 ml 447 ml Tube Irrigant 120 ml Output Urine Total 450 ml 450 ml 500 ml 450 ml 400 ml # Bowel Movements 2 1 0 0 Result Diagram: 02/05/16 0417 Imaging Last Impressions Abdomen X-Ray 01/30/16 0000 Signed Impressions: Service Date/Time: Saturday, January 30, 2016 14:17 - CONCLUSION: Satisfactory PEG tube positioning Mikael Valladares MD Abdomen/Pelvis CT 01/20/16 0000 Signed Impressions: Service Date/Time: Wednesday, January 20, 2016 07:16 - CONCLUSION: 1. Mild obstructive uropathy on the right without visualization of radiopaque calculus. The tip of the suprapubic catheter is wedged in the region of the right UVJ and may be causing the obstruction. Recommend repositioning of the suprapubic catheter. 2. Cholelithiasis. 3. Renal low densities bilaterally likely related to cyst. 4. Percutaneous gastrostomy tube. Dayday Edmonds MD Objective Remarks GENERAL: This is a well-nourished, well-developed patient, in no apparent distress. CARDIOVASCULAR: Regular rate and rhythm RESPIRATORY: Clear to auscultation. Breath sounds equal bilaterally. No wheezes , rales, or rhonchi. GASTROINTESTINAL: Abdomen soft, non-tender, nondistended. Normal active bowel sounds, G-tube in place. MUSCULOSKELETAL: Extremities without clubbing, cyanosis, or edema. NEURO: Awake, shakes and nods his head. Moves all ext x4, follows directions. Procedures PEG tube repair Medications and IVs Current Medications Medications (Trade) Dose Ordered Sig/Gayathri Route Start Time Stop Time Status Last Admin (NS Flush) 2 ml UNSCH PRN FLUSH 01/20/16 10:15 (NS Flush) 2 ml BID FLUSH 01/20/16 21:00 02/09/16 19:34 (Tylenol) 650 mg Q4H PRN PO 01/20/16 10:15 (Zofran Inj) 4 mg Q6H PRN IVP 01/20/16 10:15 (Tylenol) 650 mg Q6H PRN PO 01/20/16 10:15 (Narcan Inj) 0.4 mg UNSCH PRN IV 01/20/16 10:15 (Vasotec Inj) 1.25 mg Q6H PRN IV PUSH 01/20/16 10:15 (Zyloprim) 100 mg DAILY PEG 01/21/16 09:00 02/09/16 09:54 (Remeron) 7.5 mg HS PEG 01/20/16 21:00 02/09/16 19:34 (Pill Splitter) 1 ea UNSCH PRN OTHER 01/20/16 14:15 02/08/16 20:56 (Imodium) 2 mg Q6H PRN PO 01/21/16 12:45 02/09/16 00:04 (Lomotil Tab) 2 tab Q6H PRN PO 01/21/16 12:45 (Proamatine) 5 mg TID@07,12,17 PO 01/21/16 17:00 02/09/16 17:22 (Protonix) 40 mg DAILY PO 01/27/16 09:00 02/09/16 09:54 (Bactroban 2% Oint) 1 applic Q12HR TOPICAL 01/30/16 12:00 02/09/16 19:34 (Pepcid) 20 mg BID PEG 02/02/16 21:00 02/09/16 19:34 (Ciloxan 0.3% Opth Soln) 1 drop Q4H EACH EYE 02/06/16 16:00 02/11/16 15:59 02/09/16 19:34 Urinary Catheter: No Vascular Central Line Catheter: No A/P Problem List: (1) GI bleed ICD Code: K92.2 Status: Resolved (2) Essential tremor ICD Code: G25.0 Status: Chronic (3) Dementia ICD Code: F03.90 Status: Chronic (4) Parkinson disease ICD Code: G20 Status: Chronic (5) Hypotension ICD Code: I95.9 Status: Resolved (6) Loose stools ICD Code: R19.5 Status: Resolved Assessment and Plan Right eye infection possibly conjunctivitis: Clinical improving, Cipro eyedrop through February [address] Haile previous hospitalist, continue to monitor improvement, no active discharge seen. - Upper GI bleed: Resolved. H&H are stable. GI signed off. Continue PPI. - Hypotension: Blood pressure stable, Continue Midodrine. - Previous Loose stools: Resolved. C. difficile negative. Stool culture and O&P negative. Continue Lactinex. Last Imodium was given on January 30 - Stage I decubitus ulcer, sacral skin tear: Continue local wound care. - Parkinson's disease: Patient has dementia and resting tremor. Chronic, stable. - Mood disorder: Stable on Remeron. - Mild obstructive uropathy: Appreciate urology recommendations. Suprapubic catheter in place, last changed 01/21/16. To be changed monthly. - UTI: Urine culture positive for Proteus mirabilis and GBS. Patient has finished a complete course of antibiotics. - Protein calorie malnutrition: Continue tube feeds. Currently tolerating Jevity 1.5 at 60 mg per hour - Generalized Weakness: Continue PT. - DVT prophylaxis: SCDs. Avoid chemical prophylaxis secondary to GI bleed. Continue current care with no adjustment of medications today. Saúl Cadena MD Feb 09, 2016 18:43
[2016-02-09] MEDS: MIRTAZAPINE 15 MG TAB PEG SCH (19:34)
[2016-02-09 20:00] VITALS: BP 106/60; PULSE 80; RESP 20; TEMP 97.8; O2SAT 94
[2016-02-09 23:57] VITALS: BP 106/74; PULSE 78; RESP 20; TEMP 98; O2SAT 95
[2016-02-10] MEDS: CIPROFLOXACIN 0.3% OPTH SOLN 2.5 ML BTL EACH EYE SCH ×7 (00:06→22:26)
[2016-02-10] MEDS: MIDODRINE 5 MG TAB PO SCH ×3 (05:08→16:56)
[2016-02-10 07:29] VITALS: BP 119/68; PULSE 77; RESP 19; TEMP 97; O2SAT 95
[2016-02-10] MEDS: ALLOPURINOL 100 MG TAB PEG SCH (08:39)
[2016-02-10] MEDS: PANTOPRAZOLE SOD 40 MG DELAYED RELEASE TAB PO SCH (08:40)
[2016-02-10] MEDS: MUPIROCIN 2% OINT 22 GM TUBE TOPICAL SCH ×2 (08:40→22:26)
[2016-02-10] MEDS: FAMOTIDINE 20 MG TAB PEG SCH ×3 (08:40→22:25)
[2016-02-10] MEDS: SODIUM CHLORIDE 0.9% FLUSH 5 ML FLUSH FLUSH SCH ×2 (08:40→21:00)
[2016-02-10 10:36] LABS: AUTOMATED NEUTROPHIL # 3.4 TH/MM3 (1.8-7.7); BASOPHIL # 0.1 TH/MM3 (0-0.2); BASOPHIL % 0.8 % (0.0-2.0); EOSINOPHIL # 0.3 TH/MM3 (0-0.4); EOSINOPHIL % 3.9 % (0.0-4.0); HEMATOCRIT 43.4 % (39.0-51.0); HEMO FLAGS DIFF FINAL; LYMPH % 39.8 % (9.0-44.0); LYMPHOCYTE # 2.8 TH/MM3 (1.0-4.8); MEAN CELL VOLUME 86.4 FL (80.0-100.0); MEAN CORPUSCULAR HGB CONC 32.4 % (32.0-36.0); MONO % 7.1 % (0.0-8.0); NEUT % 48.4 % (16.0-70.0); PLATELET COUNT 228 TH/MM3 (150-450); RED BLOOD COUNT 5.03 MIL/MM3 (4.50-5.90); RED CELL DISTRIBUTION WIDTH 16.6 % (11.6-17.2); WHITE BLOOD COUNT 6.9 TH/MM3 (4.0-11.0)
[2016-02-10 11:00] LABS: ANION GAP 6 MEQ/L (5-15); AST (GOT) 36 U/L (15-37); BICARBONATE 27.9 MEQ/L (21.0-32.0); BLOOD UREA NITROGEN 21 MG/DL (7-18); CHLORIDE 103 MEQ/L (98-107); GLOMERULAR FILTRATION RATE 121 ML/MIN (>89); POTASSIUM 4.3 MEQ/L (3.5-5.1); SODIUM (NA) 137 MEQ/L (136-145)
[2016-02-10 11:03] LABS: ALKALINE PHOSPHATASE 92 U/L (45-117); ALT (GPT) 18 U/L (12-78); TOTAL BILIRUBIN ADULT 0.2 MG/DL (0.2-1.0)
[2016-02-10 11:31] VITALS: BP 98/58; PULSE 63; RESP 18; TEMP 98.7; O2SAT 95
[2016-02-10 16:48] VITALS: BP 102/59; PULSE 68; RESP 20; TEMP 97.8; O2SAT 96
--- NOTE | 2016-02-10 16:51 | HHI.PR ---
Subjective Remarks patient has no complaints Bp noted to be low no fevers/chills patient denies cp/sob denies abdominal pain tolerating tube feeds Objective Vitals Vital Signs Date Time Temp Pulse Resp B/P Pulse Ox O2 Delivery O2 Flow Rate FiO2 02/10/16 16:48 97.8 68 20 102/59 96 02/10/16 11:31 98.7 63 18 98/58 95 02/10/16 07:29 97.0 77 19 119/68 95 02/09/16 23:57 98.0 78 20 106/74 95 02/09/16 20:00 97.8 80 20 106/60 94 I/O 02/09/16 02/09/16 02/09/16 02/10/16 02/10/16 02/10/16 07:00 15:00 23:00 07:00 15:00 23:00 Intake Total 497 ml 447 ml 400 ml 440 ml 0 ml Output Total 450 ml 400 ml 600 ml 600 ml 400 ml Balance 47 ml 47 ml -200 ml -160 ml -400 ml Intake Oral 0 ml 0 ml 0 ml 0 ml 0 ml IV Total 0 ml 440 ml Tube Feeding 377 ml 447 ml 400 ml Tube Irrigant 120 ml Output Urine Total 450 ml 400 ml 600 ml 600 ml 400 ml # Bowel Movements 0 0 1 0 2 Result Diagram: 02/10/1636 02/10/1636 Imaging Last Impressions Abdomen X-Ray 01/30/16 0000 Signed Impressions: Service Date/Time: Saturday, January 30, 2016 14:17 - CONCLUSION: Satisfactory PEG tube positioning Mikael Valladares MD Abdomen/Pelvis CT 01/20/16 0000 Signed Impressions: Service Date/Time: Wednesday, January 20, 2016 07:16 - CONCLUSION: 1. Mild obstructive uropathy on the right without visualization of radiopaque calculus. The tip of the suprapubic catheter is wedged in the region of the right UVJ and may be causing the obstruction. Recommend repositioning of the suprapubic catheter. 2. Cholelithiasis. 3. Renal low densities bilaterally likely related to cyst. 4. Percutaneous gastrostomy tube. Dayday Edmonds MD Objective Remarks GENERAL: This is a well-nourished, well-developed patient, in no apparent distress. CARDIOVASCULAR: Regular rate and rhythm RESPIRATORY: Clear to auscultation. Breath sounds equal bilaterally. No wheezes , rales, or rhonchi. GASTROINTESTINAL: Abdomen soft, non-tender, nondistended. Normal active bowel sounds, G-tube in place. MUSCULOSKELETAL: Extremities without clubbing, cyanosis, or edema. NEURO: Awake, shakes and nods his head. Moves all ext x4, follows directions. Procedures PEG tube repair Medications and IVs Current Medications Medications (Trade) Dose Ordered Sig/Gayathri Route Start Time Stop Time Status Last Admin (NS Flush) 2 ml UNSCH PRN FLUSH 01/20/16 10:15 (NS Flush) 2 ml BID FLUSH 01/20/16 21:00 02/10/16 08:40 (Tylenol) 650 mg Q4H PRN PO 01/20/16 10:15 (Zofran Inj) 4 mg Q6H PRN IVP 01/20/16 10:15 (Tylenol) 650 mg Q6H PRN PO 01/20/16 10:15 (Narcan Inj) 0.4 mg UNSCH PRN IV 01/20/16 10:15 (Vasotec Inj) 1.25 mg Q6H PRN IV PUSH 01/20/16 10:15 (Zyloprim) 100 mg DAILY PEG 01/21/16 09:00 02/10/16 08:39 (Remeron) 7.5 mg HS PEG 01/20/16 21:00 02/09/16 19:34 (Pill Splitter) 1 ea UNSCH PRN OTHER 01/20/16 14:15 02/08/16 20:56 (Imodium) 2 mg Q6H PRN PO 01/21/16 12:45 02/09/16 00:04 (Lomotil Tab) 2 tab Q6H PRN PO 01/21/16 12:45 (Proamatine) 5 mg TID@07,12,17 PO 01/21/16 17:00 02/10/16 16:56 (Protonix) 40 mg DAILY PO 01/27/16 09:00 02/10/16 08:40 (Bactroban 2% Oint) 1 applic Q12HR TOPICAL 01/30/16 12:00 02/10/16 22:26 (Pepcid) 20 mg BID PEG 02/02/16 21:00 02/10/16 08:40 (Ciloxan 0.3% Opth Soln) 1 drop Q4H EACH EYE 02/06/16 16:00 02/11/16 15:59 02/10/16 12:09 A/P Problem List: (1) GI bleed ICD Code: K92.2 Status: Resolved (2) Essential tremor ICD Code: G25.0 Status: Chronic (3) Dementia ICD Code: F03.90 Status: Chronic (4) Parkinson disease ICD Code: G20 Status: Chronic (5) Hypotension ICD Code: I95.9 Status: Resolved (6) Loose stools ICD Code: R19.5 Status: Resolved Assessment and Plan Right eye infection possibly conjunctivitis: Clinical improving, Cipro eyedrop through February [address] Haile previous hospitalist, continue to monitor improvement, no active discharge seen. - Upper GI bleed: Resolved. H&H are stable. GI signed off. Continue PPI. - Hypotension: Blood pressure low Continue Midodrine. Will order bolus of IV normal saline if hypotension persists. Discussed with RN. - Previous Loose stools: Resolved. C. difficile negative. Stool culture and O&P negative. Continue Lactinex. Last Imodium was given on January 30 - Stage I decubitus ulcer, sacral skin tear: Continue local wound care. - Parkinson's disease: Patient has dementia and resting tremor. Chronic, stable. - Mood disorder: Stable on Remeron. - Mild obstructive uropathy: Appreciate urology recommendations. Suprapubic catheter in place, last changed 01/21/16. To be changed monthly. - UTI: Urine culture positive for Proteus mirabilis and GBS. Patient has finished a complete course of antibiotics. - Protein calorie malnutrition: Continue tube feeds. Currently tolerating Jevity 1.5 at 60 mg per hour - Generalized Weakness: Continue PT. - DVT prophylaxis: SCDs. Avoid chemical prophylaxis secondary to GI bleed. Continue current care with no adjustment of medications today. Discharge Planning awaiting placement Saúl Cadena MD Feb 10, 2016 16:51
[2016-02-10] MEDS: SODIUM CHLORID 0.9% 500 ML INJ 500 ML IV ONE (17:00)
[2016-02-10 20:00] VITALS: BP 105/57; PULSE 61; RESP 19; TEMP 97.8; O2SAT 96
[2016-02-10] MEDS: MIRTAZAPINE 15 MG TAB PEG SCH ×2 (21:00→22:25)
[2016-02-11] VITALS: BP 98/64; PULSE 79; RESP 20; TEMP 95.6; O2SAT 96
[2016-02-11] MEDS: CIPROFLOXACIN 0.3% OPTH SOLN 2.5 ML BTL EACH EYE SCH ×4 (04:00→12:00)
[2016-02-11] MEDS: MIDODRINE 5 MG TAB PO SCH ×3 (05:50→16:57)
[2016-02-11 08:40] VITALS: BP 99/60; PULSE 81; RESP 19; TEMP 97.1; O2SAT 95
[2016-02-11] MEDS: PANTOPRAZOLE SOD 40 MG DELAYED RELEASE TAB PO SCH (09:00)
[2016-02-11] MEDS: MUPIROCIN 2% OINT 22 GM TUBE TOPICAL SCH ×2 (09:00→19:32)
[2016-02-11] MEDS: SODIUM CHLORIDE 0.9% FLUSH 5 ML FLUSH FLUSH SCH ×2 (09:00→19:32)
[2016-02-11] MEDS: ALLOPURINOL 100 MG TAB PEG SCH (09:00)
[2016-02-11] MEDS: FAMOTIDINE 20 MG TAB PEG SCH ×2 (09:00→19:33)
[2016-02-11 12:00] VITALS: BP 104/66; PULSE 77; RESP 19; TEMP 98.8; O2SAT 95
[2016-02-11 17:39] VITALS: BP 94/62; PULSE 77; RESP 19; TEMP 97.7; O2SAT 95
[2016-02-11] MEDS: MIRTAZAPINE 15 MG TAB PEG SCH (19:33)
--- NOTE | 2016-02-11 19:40 | HHI.PR ---
Subjective Remarks denies cp/sob denies abdominal pain tolerating tube feeds vital signs stable Objective Vitals Vital Signs Date Time Temp Pulse Resp B/P Pulse Ox O2 Delivery O2 Flow Rate FiO2 02/11/16 17:39 97.7 77 19 94/62 95 02/11/16 12:00 98.8 77 19 104/66 95 02/11/16 08:40 97.1 81 19 99/60 95 02/11/16 00:00 95.6 79 20 98/64 96 02/10/16 20:00 97.8 61 19 105/57 96 I/O 02/10/16 02/10/16 02/10/16 02/11/16 02/11/16 02/11/16 07:00 15:00 23:00 07:00 15:00 23:00 Intake Total 440 ml 461 ml 450 ml 378 ml 516 ml Output Total 600 ml 400 ml 750 ml 450 ml 500 ml Balance -160 ml 61 ml -300 ml -72 ml 16 ml Intake Oral 0 ml 0 ml 0 ml 0 ml 0 ml IV Total 440 ml 0 ml Tube Feeding 461 ml 450 ml 378 ml 516 ml Output Urine Total 600 ml 400 ml 750 ml 450 ml 500 ml # Bowel Movements 0 2 1 3 Result Diagram: 02/10/16 0936 02/10/16 0936 Imaging Last Impressions Abdomen X-Ray 01/30/16 0000 Signed Impressions: Service Date/Time: Saturday, January 30, 2016 14:17 - CONCLUSION: Satisfactory PEG tube positioning Mikael Valladares MD Abdomen/Pelvis CT 01/20/16 0000 Signed Impressions: Service Date/Time: Wednesday, January 20, 2016 07:16 - CONCLUSION: 1. Mild obstructive uropathy on the right without visualization of radiopaque calculus. The tip of the suprapubic catheter is wedged in the region of the right UVJ and may be causing the obstruction. Recommend repositioning of the suprapubic catheter. 2. Cholelithiasis. 3. Renal low densities bilaterally likely related to cyst. 4. Percutaneous gastrostomy tube. Dayday Edmonds MD Objective Remarks GENERAL: This is a well-nourished, well-developed patient, in no apparent distress. CARDIOVASCULAR: Regular rate and rhythm RESPIRATORY: Clear to auscultation. Breath sounds equal bilaterally. No wheezes , rales, or rhonchi. GASTROINTESTINAL: Abdomen soft, non-tender, nondistended. Normal active bowel sounds, G-tube in place. MUSCULOSKELETAL: Extremities without clubbing, cyanosis, or edema. NEURO: Awake, shakes and nods his head. Moves all ext x4, follows directions. Procedures PEG tube repair Medications and IVs Current Medications Medications (Trade) Dose Ordered Sig/Gayathri Route Start Time Stop Time Status Last Admin (NS Flush) 2 ml UNSCH PRN FLUSH 01/20/16 10:15 (NS Flush) 2 ml BID FLUSH 01/20/16 21:00 02/10/16 08:40 (Tylenol) 650 mg Q4H PRN PO 01/20/16 10:15 (Zofran Inj) 4 mg Q6H PRN IVP 01/20/16 10:15 (Tylenol) 650 mg Q6H PRN PO 01/20/16 10:15 (Narcan Inj) 0.4 mg UNSCH PRN IV 01/20/16 10:15 (Vasotec Inj) 1.25 mg Q6H PRN IV PUSH 01/20/16 10:15 (Zyloprim) 100 mg DAILY PEG 01/21/16 09:00 02/10/16 08:39 (Remeron) 7.5 mg HS PEG 01/20/16 21:00 02/11/16 19:33 (Pill Splitter) 1 ea UNSCH PRN OTHER 01/20/16 14:15 02/08/16 20:56 (Imodium) 2 mg Q6H PRN PO 01/21/16 12:45 02/09/16 00:04 (Lomotil Tab) 2 tab Q6H PRN PO 01/21/16 12:45 (Proamatine) 5 mg TID@07,12,17 PO 01/21/16 17:00 02/11/16 16:57 (Protonix) 40 mg DAILY PO 01/27/16 09:00 02/10/16 08:40 (Bactroban 2% Oint) 1 applic Q12HR TOPICAL 01/30/16 12:00 02/11/16 19:32 (Pepcid) 20 mg BID PEG 02/02/16 21:00 02/11/16 19:33 A/P Problem List: (1) GI bleed ICD Code: K92.2 Status: Resolved (2) Essential tremor ICD Code: G25.0 Status: Chronic (3) Dementia ICD Code: F03.90 Status: Chronic (4) Parkinson disease ICD Code: G20 Status: Chronic (5) Hypotension ICD Code: I95.9 Status: Resolved (6) Loose stools ICD Code: R19.5 Status: Resolved Assessment and Plan Right eye infection possibly conjunctivitis: Clinical improving, Cipro eyedrop through February [address] Haile previous hospitalist, continue to monitor improvement, no active discharge seen. - Upper GI bleed: Resolved. H&H are stable. GI signed off. Continue PPI. - Hypotension: Better after IV fluid bolus. Continue midodrine. - Previous Loose stools: Resolved. C. difficile negative. Stool culture and O&P negative. Continue Lactinex. Last Imodium was given on January 30 - Stage I decubitus ulcer, sacral skin tear: Continue local wound care. - Parkinson's disease: Patient has dementia and resting tremor. Chronic, stable. - Mood disorder: Stable on Remeron. - Mild obstructive uropathy: Appreciate urology recommendations. Suprapubic catheter in place, last changed 01/21/16. To be changed monthly. - UTI: Urine culture positive for Proteus mirabilis and GBS. Patient has finished a complete course of antibiotics. - Protein calorie malnutrition: Continue tube feeds. Currently tolerating Jevity 1.5 at 60 mg per hour - Generalized Weakness: Continue PT. - DVT prophylaxis: SCDs. Avoid chemical prophylaxis secondary to GI bleed. Continue current care with no adjustment of medications today. Discharge Planning awaiting placement Saúl Cadena MD Feb 11, 2016 19:40
[2016-02-11 20:00] VITALS: BP 95/59; PULSE 72; RESP 18; TEMP 95; O2SAT 95
[2016-02-12] VITALS: BP 96/65; PULSE 75; RESP 18; TEMP 95.6; O2SAT 97
[2016-02-12] MEDS: MIDODRINE 5 MG TAB PO SCH ×3 (04:59→17:00)
[2016-02-12 08:00] VITALS: BP 120/77; PULSE 80; RESP 17; TEMP 98.1; O2SAT 95
[2016-02-12] MEDS: SODIUM CHLORIDE 0.9% FLUSH 5 ML FLUSH FLUSH SCH ×2 (08:18→20:15)
[2016-02-12] MEDS: FAMOTIDINE 20 MG TAB PEG SCH ×2 (08:19→20:02)
[2016-02-12] MEDS: MUPIROCIN 2% OINT 22 GM TUBE TOPICAL SCH ×2 (08:19→20:14)
[2016-02-12] MEDS: PANTOPRAZOLE SOD 40 MG DELAYED RELEASE TAB PO SCH (08:19)
[2016-02-12] MEDS: ALLOPURINOL 100 MG TAB PEG SCH (08:19)
[2016-02-12 09:09] VITALS: O2SAT 98
[2016-02-12 12:00] VITALS: BP 109/60; PULSE 68; RESP 16; TEMP 97.7; O2SAT 96
[2016-02-12 16:00] VITALS: BP 118/68; PULSE 72; RESP 17; TEMP 97; O2SAT 97
--- NOTE | 2016-02-12 16:03 | HHI.PR ---
Subjective Remarks No major overnight events. The patient denies chest pain/shortness of breath. Patient tolerating tube feeds Objective Vitals Vital Signs Date Time Temp Pulse Resp B/P Pulse Ox O2 Delivery O2 Flow Rate FiO2 02/12/16 12:00 97.7 68 16 109/60 96 02/12/16 09:09 98 02/12/16 08:00 98.1 80 17 120/77 95 02/12/16 00:00 95.6 75 18 96/65 97 02/11/16 20:00 95.0 72 18 95/59 95 02/11/16 17:39 97.7 77 19 94/62 95 I/O 02/11/16 02/11/16 02/11/16 02/12/16 02/12/16 02/12/16 07:02 15:02 23:02 07:02 15:02 23:02 Intake Total 378 ml 516 ml 300 ml 518 ml 523 ml Output Total 450 ml 500 ml 500 ml 650 ml Balance -72 ml 16 ml 300 ml 18 ml -127 ml Intake Oral 0 ml 0 ml 0 ml 0 ml IV Total 0 ml 0 ml Tube Feeding 378 ml 516 ml 200 ml 488 ml 523 ml Tube Irrigant 100 ml 30 ml Output Urine Total 450 ml 500 ml 500 ml 650 ml # Bowel Movements 3 1 1 Result Diagram: 02/10/1636 02/10/16935 Imaging Last Impressions Abdomen X-Ray 01/30/16 0000 Signed Impressions: Service Date/Time: Saturday, January 30, 2016 14:17 - CONCLUSION: Satisfactory PEG tube positioning Mikael Valladares MD Abdomen/Pelvis CT 01/20/16 0000 Signed Impressions: Service Date/Time: Wednesday, January 20, 2016 07:16 - CONCLUSION: 1. Mild obstructive uropathy on the right without visualization of radiopaque calculus. The tip of the suprapubic catheter is wedged in the region of the right UVJ and may be causing the obstruction. Recommend repositioning of the suprapubic catheter. 2. Cholelithiasis. 3. Renal low densities bilaterally likely related to cyst. 4. Percutaneous gastrostomy tube. Dayday Edmonds MD Objective Remarks GENERAL: This is a well-nourished, well-developed patient, in no apparent distress. CARDIOVASCULAR: Regular rate and rhythm RESPIRATORY: Clear to auscultation. Breath sounds equal bilaterally. No wheezes , rales, or rhonchi. GASTROINTESTINAL: Abdomen soft, non-tender, nondistended. Normal active bowel sounds, G-tube in place. MUSCULOSKELETAL: Extremities without clubbing, cyanosis, or edema. NEURO: Awake, shakes and nods his head. Moves all ext x4, follows directions. Procedures PEG tube repair Medications and IVs Current Medications Medications (Trade) Dose Ordered Sig/Gayathri Route Start Time Stop Time Status Last Admin (NS Flush) 2 ml UNSCH PRN FLUSH 01/20/16 10:15 (NS Flush) 2 ml BID FLUSH 01/20/16 21:00 02/10/16 08:40 (Tylenol) 650 mg Q4H PRN PO 01/20/16 10:15 (Zofran Inj) 4 mg Q6H PRN IVP 01/20/16 10:15 (Tylenol) 650 mg Q6H PRN PO 01/20/16 10:15 (Narcan Inj) 0.4 mg UNSCH PRN IV 01/20/16 10:15 (Vasotec Inj) 1.25 mg Q6H PRN IV PUSH 01/20/16 10:15 (Zyloprim) 100 mg DAILY PEG 01/21/16 09:00 02/12/16 08:19 (Remeron) 7.5 mg HS PEG 01/20/16 21:00 02/11/16 19:33 (Pill Splitter) 1 ea UNSCH PRN OTHER 01/20/16 14:15 02/08/16 20:56 (Imodium) 2 mg Q6H PRN PO 01/21/16 12:45 02/09/16 00:04 (Lomotil Tab) 2 tab Q6H PRN PO 01/21/16 12:45 (Proamatine) 5 mg TID@07,12,17 PO 01/21/16 17:00 02/12/16 12:26 (Protonix) 40 mg DAILY PO 01/27/16 09:00 02/12/16 08:19 (Bactroban 2% Oint) 1 applic Q12HR TOPICAL 01/30/16 12:00 02/12/16 08:19 (Pepcid) 20 mg BID PEG 9/30/16 21:00 02/12/16 08:19 Urinary Catheter: No Vascular Central Line Catheter: No A/P Problem List: (1) GI bleed ICD Code: K92.2 Status: Resolved (2) Essential tremor ICD Code: G25.0 Status: Chronic (3) Dementia ICD Code: F03.90 Status: Chronic (4) Parkinson disease ICD Code: G20 Status: Chronic (5) Hypotension ICD Code: I95.9 Status: Resolved (6) Loose stools ICD Code: R19.5 Status: Resolved Assessment and Plan Right eye infection possibly conjunctivitis: Resolved. The patient treated with ciprofloxacin eyedrops. Discontinue today. - Upper GI bleed: Resolved. H&H are stable. GI signed off. Continue PPI. - Hypotension: Better after IV fluid bolus. Continue midodrine. - Previous Loose stools: Resolved. C. difficile negative. Stool culture and O&P negative. Continue Lactinex. Last Imodium was given on January 30 - Stage I decubitus ulcer, sacral skin tear: Continue local wound care. - Parkinson's disease: Patient has dementia and resting tremor. Chronic, stable. - Mood disorder: Stable on Remeron. - Mild obstructive uropathy: Appreciate urology recommendations. Suprapubic catheter in place, last changed 01/21/16. To be changed monthly. - UTI: Urine culture positive for Proteus mirabilis and GBS. Patient has finished a complete course of antibiotics. - Protein calorie malnutrition: Continue tube feeds. Currently tolerating Jevity 1.5 at 60 mg per hour - Generalized Weakness: Continue PT. - DVT prophylaxis: SCDs. Avoid chemical prophylaxis secondary to GI bleed. Continue current care with no adjustment of medications today. Discharge Planning awaiting placement Saúl Cadena MD Feb 12, 2016 16:03
[2016-02-12 20:00] VITALS: BP 110/65; PULSE 76; RESP 18; TEMP 95.8; O2SAT 93
[2016-02-12] MEDS: MIRTAZAPINE 15 MG TAB PEG SCH (20:03)
[2016-02-13] VITALS: BP 106/68; PULSE 78; RESP 18; TEMP 95.9; O2SAT 93
[2016-02-13] MEDS: MIDODRINE 5 MG TAB PO SCH ×3 (05:14→17:19)
[2016-02-13] MEDS: PANTOPRAZOLE SOD 40 MG DELAYED RELEASE TAB PO SCH (07:39)
[2016-02-13] MEDS: FAMOTIDINE 20 MG TAB PEG SCH ×2 (07:39→19:13)
[2016-02-13] MEDS: SODIUM CHLORIDE 0.9% FLUSH 5 ML FLUSH FLUSH SCH ×2 (07:39→19:12)
[2016-02-13] MEDS: MUPIROCIN 2% OINT 22 GM TUBE TOPICAL SCH ×2 (07:40→19:13)
[2016-02-13] MEDS: ALLOPURINOL 100 MG TAB PEG SCH (07:40)
[2016-02-13 08:00] VITALS: BP 114/62; PULSE 90; RESP 17; TEMP 98.4; O2SAT 98
[2016-02-13 12:00] VITALS: BP 123/68; PULSE 86; RESP 18; TEMP 98.3; O2SAT 99
--- NOTE | 2016-02-13 14:47 | HHI.PR ---
Subjective Remarks no major overnight events patient elects to be nonverbal but as per RN he is able to speak. Patient nods head to answer yes or no no fevers/chills denies cp/sob denies diarrhea Objective Vitals Vital Signs Date Time Temp Pulse Resp B/P Pulse Ox O2 Delivery O2 Flow Rate FiO2 02/13/16 12:00 98.3 86 18 123/68 99 02/13/16 08:00 98.4 90 17 114/62 98 02/13/16 00:00 95.9 78 18 106/68 93 02/12/16 20:00 95.8 76 18 110/65 93 02/12/16 16:00 97.0 72 17 118/68 97 I/O 02/12/16 02/12/16 02/12/16 02/13/16 02/13/16 02/13/16 07:00 15:00 23:00 07:00 15:00 23:00 Intake Total 518 ml 523 ml 550 ml 440 ml 0 ml Output Total 500 ml 650 ml 300 ml 400 ml 500 ml Balance 18 ml -127 ml 250 ml 40 ml -500 ml Intake Oral 0 ml 0 ml 0 ml 0 ml 0 ml IV Total 0 ml 0 ml 0 ml Tube Feeding 488 ml 523 ml 450 ml 440 ml Tube Irrigant 30 ml 100 ml Output Urine Total 500 ml 650 ml 300 ml 400 ml 500 ml # Bowel Movements 1 1 1 Result Diagram: 02/10/16 0936 02/10/16 0936 Imaging Last Impressions Abdomen X-Ray 01/30/16 0000 Signed Impressions: Service Date/Time: Saturday, January 30, 2016 14:17 - CONCLUSION: Satisfactory PEG tube positioning Mikael Valladares MD Abdomen/Pelvis CT 01/20/16 0000 Signed Impressions: Service Date/Time: Wednesday, January 20, 2016 07:16 - CONCLUSION: 1. Mild obstructive uropathy on the right without visualization of radiopaque calculus. The tip of the suprapubic catheter is wedged in the region of the right UVJ and may be causing the obstruction. Recommend repositioning of the suprapubic catheter. 2. Cholelithiasis. 3. Renal low densities bilaterally likely related to cyst. 4. Percutaneous gastrostomy tube. Dayday Edmonds MD Objective Remarks GENERAL: This is a well-nourished, well-developed patient, in no apparent distress. CARDIOVASCULAR: Regular rate and rhythm RESPIRATORY: Clear to auscultation. Breath sounds equal bilaterally. No wheezes , rales, or rhonchi. GASTROINTESTINAL: Abdomen soft, non-tender, nondistended. Normal active bowel sounds, G-tube in place. MUSCULOSKELETAL: Extremities without clubbing, cyanosis, or edema. NEURO: Awake, shakes and nods his head. Moves all ext x4, follows directions. Procedures PEG tube repair Medications and IVs Current Medications Medications (Trade) Dose Ordered Sig/Gayathri Route Start Time Stop Time Status Last Admin (NS Flush) 2 ml UNSCH PRN FLUSH 01/20/16 10:15 (NS Flush) 2 ml BID FLUSH 01/20/16 21:00 02/10/16 08:40 (Tylenol) 650 mg Q4H PRN PO 01/20/16 10:15 (Zofran Inj) 4 mg Q6H PRN IVP 01/20/16 10:15 (Tylenol) 650 mg Q6H PRN PO 01/20/16 10:15 (Narcan Inj) 0.4 mg UNSCH PRN IV 01/20/16 10:15 (Vasotec Inj) 1.25 mg Q6H PRN IV PUSH 01/20/16 10:15 (Zyloprim) 100 mg DAILY PEG 01/21/16 09:00 02/13/16 07:40 (Remeron) 7.5 mg HS PEG 01/20/16 21:00 02/12/16 20:03 (Pill Splitter) 1 ea UNSCH PRN OTHER 01/20/16 14:15 02/08/16 20:56 (Imodium) 2 mg Q6H PRN PO 01/21/16 12:45 02/09/16 00:04 (Lomotil Tab) 2 tab Q6H PRN PO 01/21/16 12:45 (Proamatine) 5 mg TID@,12,17 PO 01/21/16 17:00 02/13/16 11:41 (Protonix) 40 mg DAILY PO 01/27/16 09:00 02/13/16 07:39 (Bactroban 2% Oint) 1 applic Q12HR TOPICAL 01/30/16 12:00 02/13/16 07:40 (Pepcid) 20 mg BID PEG 02/02/16 21:00 02/13/16 07:39 Urinary Catheter: No Vascular Central Line Catheter: No A/P Problem List: (1) GI bleed ICD Code: K92.2 Status: Resolved (2) Essential tremor ICD Code: G25.0 Status: Chronic (3) Dementia ICD Code: F03.90 Status: Chronic (4) Parkinson disease ICD Code: G20 Status: Chronic (5) Hypotension ICD Code: I95.9 Status: Resolved (6) Loose stools ICD Code: R19.5 Status: Resolved Assessment and Plan Right eye infection possibly conjunctivitis: Resolved. The patient treated with ciprofloxacin eyedrops. Treatment completed. - Upper GI bleed: Resolved. H&H are stable. GI signed off. Continue PPI. - Hypotension: Better after IV fluid bolus. Continue midodrine. - Previous Loose stools: Resolved. C. difficile negative. Stool culture and O&P negative. Continue Lactinex. Last Imodium was given on January 30 - Stage I decubitus ulcer, sacral skin tear: Continue local wound care. - Parkinson's disease: Patient has dementia and resting tremor. Chronic, stable. - Mood disorder: Stable on Remeron. - Mild obstructive uropathy: Appreciate urology recommendations. Suprapubic catheter in place, last changed 01/21/16. To be changed monthly. - UTI: Urine culture positive for Proteus mirabilis and GBS. Patient has finished a complete course of antibiotics. - Protein calorie malnutrition: Continue tube feeds. Currently tolerating Jevity 1.5 at 60 mg per hour - Generalized Weakness: Continue PT. - DVT prophylaxis: SCDs. Avoid chemical prophylaxis secondary to GI bleed. Continue current care with no adjustment of medications today. Discharge Planning awaiting placement Saúl Cadena MD Feb 13, 2016 14:47
[2016-02-13 16:00] VITALS: BP 128/78; PULSE 82; RESP 19; TEMP 97.2; O2SAT 100
[2016-02-13] MEDS: MIRTAZAPINE 15 MG TAB PEG SCH (19:13)
[2016-02-13 19:57] VITALS: BP 107/60; PULSE 70; RESP 18; TEMP 96.5; O2SAT 95
[2016-02-13 23:57] VITALS: BP 100/59; PULSE 68; RESP 18; TEMP 96.5; O2SAT 96
[2016-02-14 03:57] VITALS: BP 107/61; PULSE 73; RESP 18; TEMP 96.8; O2SAT 96
[2016-02-14] MEDS: MIDODRINE 5 MG TAB PO SCH ×3 (05:19→16:34)
[2016-02-14 08:00] VITALS: BP 105/61; PULSE 73; RESP 18; TEMP 96.4; O2SAT 96
[2016-02-14] MEDS: SODIUM CHLORIDE 0.9% FLUSH 5 ML FLUSH FLUSH SCH ×2 (09:00→21:00)
[2016-02-14] MEDS: FAMOTIDINE 20 MG TAB PEG SCH ×2 (09:15→22:05)
[2016-02-14] MEDS: ALLOPURINOL 100 MG TAB PEG SCH (09:15)
[2016-02-14] MEDS: PANTOPRAZOLE SOD 40 MG DELAYED RELEASE TAB PO SCH (09:15)
[2016-02-14] MEDS: MUPIROCIN 2% OINT 22 GM TUBE TOPICAL SCH ×2 (09:15→21:00)
[2016-02-14 11:42] VITALS: BP 93/57; PULSE 77; RESP 17; TEMP 97.1; O2SAT 95
[2016-02-14 16:00] VITALS: BP 99/56; PULSE 85; RESP 17; TEMP 97.4; O2SAT 96
--- NOTE | 2016-02-14 16:29 | HHI.PR ---
Subjective Remarks no major overnight events denies fevers/chills denies cp/abdominal pain patient answers yes or no with head, does not talk Objective Vitals Vital Signs Date Time Temp Pulse Resp B/P Pulse Ox O2 Delivery O2 Flow Rate FiO2 02/14/16 11:42 97.1 77 17 93/57 95 02/14/16 08:00 96.4 73 18 105/61 96 02/14/16 03:57 96.8 73 18 107/61 96 02/13/16 23:57 96.5 68 18 100/59 96 02/13/16 19:57 96.5 70 18 107/60 95 I/O 02/13/16 02/13/16 02/13/16 02/14/16 02/14/16 02/14/16 07:00 15:00 23:00 07:00 15:00 23:00 Intake Total 440 ml 0 ml 807 ml 570 ml 0 ml Output Total 400 ml 500 ml 400 ml 400 ml 325 ml Balance 40 ml -500 ml 407 ml 170 ml -325 ml Intake Oral 0 ml 0 ml 0 ml 0 ml 0 ml IV Total 0 ml Tube Feeding 440 ml 767 ml 530 ml Tube Irrigant 40 ml 40 ml Output Urine Total 400 ml 500 ml 400 ml 400 ml 325 ml # Bowel Movements 1 1 2 2 Result Diagram: 02/10/1636 02/10/1636 Imaging Last Impressions Abdomen X-Ray 01/30/16 0000 Signed Impressions: Service Date/Time: Saturday, January 30, 2016 14:17 - CONCLUSION: Satisfactory PEG tube positioning Mikael Valladares MD Abdomen/Pelvis CT 01/20/16 0000 Signed Impressions: Service Date/Time: Wednesday, January 20, 2016 07:16 - CONCLUSION: 1. Mild obstructive uropathy on the right without visualization of radiopaque calculus. The tip of the suprapubic catheter is wedged in the region of the right UVJ and may be causing the obstruction. Recommend repositioning of the suprapubic catheter. 2. Cholelithiasis. 3. Renal low densities bilaterally likely related to cyst. 4. Percutaneous gastrostomy tube. Dayday Edmonds MD Objective Remarks GENERAL: This is a well-nourished, well-developed patient, in no apparent distress. CARDIOVASCULAR: Regular rate and rhythm RESPIRATORY: Clear to auscultation. Breath sounds equal bilaterally. No wheezes , rales, or rhonchi. GASTROINTESTINAL: Abdomen soft, non-tender, nondistended. Normal active bowel sounds, G-tube in place. MUSCULOSKELETAL: Extremities without clubbing, cyanosis, or edema. NEURO: Awake, shakes and nods his head. Moves all ext x4, follows directions. Procedures PEG tube repair Medications and IVs Current Medications Medications (Trade) Dose Ordered Sig/Gayathri Route Start Time Stop Time Status Last Admin (NS Flush) 2 ml UNSCH PRN FLUSH 01/20/16 10:15 (NS Flush) 2 ml BID FLUSH 01/20/16 21:00 02/10/16 08:40 (Tylenol) 650 mg Q4H PRN PO 01/20/16 10:15 (Zofran Inj) 4 mg Q6H PRN IVP 01/20/16 10:15 (Tylenol) 650 mg Q6H PRN PO 01/20/16 10:15 (Narcan Inj) 0.4 mg UNSCH PRN IV 01/20/16 10:15 (Vasotec Inj) 1.25 mg Q6H PRN IV PUSH 01/20/16 10:15 (Zyloprim) 100 mg DAILY PEG 01/21/16 09:00 02/14/16 09:15 (Remeron) 7.5 mg HS PEG 01/20/16 21:00 02/13/16 19:13 (Pill Splitter) 1 ea UNSCH PRN OTHER 01/20/16 14:15 02/08/16 20:56 (Imodium) 2 mg Q6H PRN PO 01/21/16 12:45 02/09/16 00:04 (Lomotil Tab) 2 tab Q6H PRN PO 01/21/16 12:45 (Proamatine) 5 mg TID@07,12,17 PO 01/21/16 17:00 02/14/16 12:32 (Protonix) 40 mg DAILY PO 01/27/16 09:00 02/14/16 09:15 (Bactroban 2% Oint) 1 applic Q12HR TOPICAL 01/30/16 12:00 02/14/16 09:15 (Pepcid) 20 mg BID PEG 02/02/16 21:00 02/14/16 09:15 A/P Problem List: (1) GI bleed ICD Code: K92.2 Status: Resolved (2) Essential tremor ICD Code: G25.0 Status: Chronic (3) Dementia ICD Code: F03.90 Status: Chronic (4) Parkinson disease ICD Code: G20 Status: Chronic (5) Hypotension ICD Code: I95.9 Status: Resolved (6) Loose stools ICD Code: R19.5 Status: Resolved Assessment and Plan Right eye infection possibly conjunctivitis: Resolved. The patient treated with ciprofloxacin eyedrops. Treatment completed. - Upper GI bleed: Resolved. H&H are stable. GI signed off. Continue PPI. - Hypotension: Better after IV fluid bolus. Continue midodrine. - Previous Loose stools: Resolved. C. difficile negative. Stool culture and O&P negative. Continue Lactinex. Last Imodium was given on January 30 - Stage I decubitus ulcer, sacral skin tear: Continue local wound care. - Parkinson's disease: Patient has dementia and resting tremor. Chronic, stable. - Mood disorder: Stable on Remeron. - Mild obstructive uropathy: Appreciate urology recommendations. Suprapubic catheter in place, last changed 01/21/16. To be changed monthly. - UTI: Urine culture positive for Proteus mirabilis and GBS. Patient has finished a complete course of antibiotics. - Protein calorie malnutrition: Continue tube feeds. Currently tolerating Jevity 1.5 at 60 mg per hour - Generalized Weakness: Continue PT. - DVT prophylaxis: SCDs. Avoid chemical prophylaxis secondary to GI bleed. Continue current care with no adjustment of medications today. Discharge Planning awaiting placement Saúl Cadena MD Feb 14, 2016 16:28
[2016-02-14 19:57] VITALS: BP 100/60; PULSE 71; RESP 18; TEMP 97.2; O2SAT 95
[2016-02-14] MEDS: MIRTAZAPINE 15 MG TAB PEG SCH (22:05)
[2016-02-14 23:57] VITALS: BP 109/64; PULSE 75; RESP 20; TEMP 96.2; O2SAT 95
[2016-02-15] MEDS: MIDODRINE 5 MG TAB PO SCH ×3 (05:15→16:51)
[2016-02-15] MEDS: FAMOTIDINE 20 MG TAB PEG SCH ×2 (07:59→21:30)
[2016-02-15 08:00] VITALS: BP 102/64; PULSE 72; RESP 16; TEMP 97.9; O2SAT 96
[2016-02-15] MEDS: MUPIROCIN 2% OINT 22 GM TUBE TOPICAL SCH ×2 (08:00→21:30)
[2016-02-15] MEDS: ALLOPURINOL 100 MG TAB PEG SCH (08:00)
[2016-02-15] MEDS: PANTOPRAZOLE SOD 40 MG DELAYED RELEASE TAB PO SCH (08:00)
[2016-02-15] MEDS: SODIUM CHLORIDE 0.9% FLUSH 5 ML FLUSH FLUSH SCH ×2 (08:00→21:00)
[2016-02-15 12:00] VITALS: BP 106/66; PULSE 71; RESP 17; TEMP 97.5; O2SAT 94
[2016-02-15 16:00] VITALS: BP 98/59; PULSE 88; RESP 16; TEMP 96.2; O2SAT 94
[2016-02-15 20:00] VITALS: BP 110/60; PULSE 79; RESP 18; TEMP 97.8; O2SAT 94
[2016-02-15] MEDS: MIRTAZAPINE 15 MG TAB PEG SCH (21:30)
--- NOTE | 2016-02-15 23:42 | HHI.PR ---
Subjective Remarks Late entry - patient seen earlier at 7:30 pm no major overnight events Patient denies cp/sob still non verbal Bp borderline low Objective Vitals Vital Signs Date Time Temp Pulse Resp B/P Pulse Ox O2 Delivery O2 Flow Rate FiO2 02/15/16 20:00 97.8 79 18 110/60 94 02/15/16 16:00 96.2 88 16 98/59 94 02/15/16 12:00 97.5 71 17 106/66 94 02/15/16 08:00 97.9 72 16 102/64 96 02/14/16 23:57 96.2 75 20 109/64 95 I/O 02/14/16 02/14/16 02/14/16 02/15/16 02/15/16 02/15/16 07:00 15:00 23:00 07:00 15:00 23:00 Intake Total 570 ml 0 ml 0 ml 365 ml 460 ml Output Total 400 ml 325 ml 300 ml 350 ml 300 ml Balance 170 ml -325 ml -300 ml 15 ml 160 ml Intake Oral 0 ml 0 ml 0 ml 0 ml 0 ml IV Total 365 ml 0 ml Tube Feeding 530 ml 460 ml Tube Irrigant 40 ml Output Urine Total 400 ml 325 ml 300 ml 350 ml 300 ml # Bowel Movements 2 2 1 2 3 Imaging Last Impressions Abdomen X-Ray 01/30/16 0000 Signed Impressions: Service Date/Time: Saturday, January 30, 2016 14:17 - CONCLUSION: Satisfactory PEG tube positioning Mikael Valladares MD Abdomen/Pelvis CT 01/20/16 0000 Signed Impressions: Service Date/Time: Wednesday, January 20, 2016 07:16 - CONCLUSION: 1. Mild obstructive uropathy on the right without visualization of radiopaque calculus. The tip of the suprapubic catheter is wedged in the region of the right UVJ and may be causing the obstruction. Recommend repositioning of the suprapubic catheter. 2. Cholelithiasis. 3. Renal low densities bilaterally likely related to cyst. 4. Percutaneous gastrostomy tube. Dayday Edmonds MD Objective Remarks GENERAL: This is a well-nourished, well-developed patient, in no apparent distress. CARDIOVASCULAR: Regular rate and rhythm RESPIRATORY: Clear to auscultation. Breath sounds equal bilaterally. No wheezes , rales, or rhonchi. GASTROINTESTINAL: Abdomen soft, non-tender, nondistended. Normal active bowel sounds, G-tube in place. MUSCULOSKELETAL: Extremities without clubbing, cyanosis, or edema. NEURO: Awake, shakes and nods his head. Moves all ext x4, follows directions. Procedures PEG tube repair Medications and IVs Current Medications Medications (Trade) Dose Ordered Sig/Gayathri Route Start Time Stop Time Status Last Admin (NS Flush) 2 ml UNSCH PRN FLUSH 01/20/16 10:15 (NS Flush) 2 ml BID FLUSH 01/20/16 21:00 02/10/16 08:40 (Tylenol) 650 mg Q4H PRN PO 01/20/16 10:15 (Zofran Inj) 4 mg Q6H PRN IVP 01/20/16 10:15 (Tylenol) 650 mg Q6H PRN PO 01/20/16 10:15 (Narcan Inj) 0.4 mg UNSCH PRN IV 01/20/16 10:15 (Vasotec Inj) 1.25 mg Q6H PRN IV PUSH 01/20/16 10:15 (Zyloprim) 100 mg DAILY PEG 01/21/16 09:00 02/15/16 08:00 (Remeron) 7.5 mg HS PEG 01/20/16 21:00 02/15/16 21:30 (Pill Splitter) 1 ea UNSCH PRN OTHER 01/20/16 14:15 02/08/16 20:56 (Imodium) 2 mg Q6H PRN PO 01/21/16 12:45 02/09/16 00:04 (Lomotil Tab) 2 tab Q6H PRN PO 01/21/16 12:45 (Proamatine) 5 mg TID@07,12,17 PO 01/21/16 17:00 02/15/16 16:51 (Protonix) 40 mg DAILY PO 01/27/16 09:00 02/15/16 08:00 (Bactroban 2% Oint) 1 applic Q12HR TOPICAL 01/30/16 12:00 02/15/16 21:30 (Pepcid) 20 mg BID PEG 02/02/16 21:00 02/15/16 21:30 Urinary Catheter: No Vascular Central Line Catheter: No A/P Problem List: (1) GI bleed ICD Code: K92.2 Status: Resolved (2) Essential tremor ICD Code: G25.0 Status: Chronic (3) Dementia ICD Code: F03.90 Status: Chronic (4) Parkinson disease ICD Code: G20 Status: Chronic (5) Hypotension ICD Code: I95.9 Status: Resolved (6) Loose stools ICD Code: R19.5 Status: Resolved Assessment and Plan Right eye infection possibly conjunctivitis: Resolved. The patient treated with ciprofloxacin eyedrops. Treatment completed. - Upper GI bleed: Resolved. H&H are stable. GI signed off. Continue PPI. - Hypotension: Will order IV fluid bolus,. Continue midodrine. - Previous Loose stools: Resolved. C. difficile negative. Stool culture and O&P negative. Continue Lactinex. Last Imodium was given on January 30 - Stage I decubitus ulcer, sacral skin tear: Continue local wound care. - Parkinson's disease: Patient has dementia and resting tremor. Chronic, stable. - Mood disorder: Stable on Remeron. - Mild obstructive uropathy: Appreciate urology recommendations. Suprapubic catheter in place, last changed 01/21/16. To be changed monthly. - UTI: Urine culture positive for Proteus mirabilis and GBS. Patient has finished a complete course of antibiotics. - Protein calorie malnutrition: Continue tube feeds. Currently tolerating Jevity 1.5 at 60 mg per hour - Generalized Weakness: Continue PT. - DVT prophylaxis: SCDs. Avoid chemical prophylaxis secondary to GI bleed. Continue current care with no adjustment of medications today. Discharge Planning awaiting placement Saúl Cadena MD Feb 15, 2016 23:42
[2016-02-16] VITALS: BP 100/57; PULSE 70; RESP 17; TEMP 97.2; O2SAT 95
[2016-02-16] MEDS: MIDODRINE 5 MG TAB PO SCH ×3 (06:33→16:13)
[2016-02-16 08:00] VITALS: BP 94/60; PULSE 71; RESP 18; TEMP 97.2; O2SAT 96
[2016-02-16] MEDS: PANTOPRAZOLE SOD 40 MG DELAYED RELEASE TAB PO SCH (08:35)
[2016-02-16] MEDS: SODIUM CHLORIDE 0.9% FLUSH 5 ML FLUSH FLUSH SCH ×2 (08:35→21:00)
[2016-02-16] MEDS: ALLOPURINOL 100 MG TAB PEG SCH (08:35)
[2016-02-16] MEDS: FAMOTIDINE 20 MG TAB PEG SCH ×2 (08:35→22:09)
[2016-02-16] MEDS: MUPIROCIN 2% OINT 22 GM TUBE TOPICAL SCH ×2 (08:35→21:00)
[2016-02-16 12:00] VITALS: BP 116/62; PULSE 70; RESP 18; TEMP 97.4; O2SAT 95
[2016-02-16 16:00] VITALS: BP 105/60; PULSE 75; RESP 18; TEMP 98.1; O2SAT 95
--- NOTE | 2016-02-16 16:03 | HHI.PR ---
Subjective Remarks no complaints still non verbal denies cp/sob Objective Vitals Vital Signs Date Time Temp Pulse Resp B/P Pulse Ox O2 Delivery O2 Flow Rate FiO2 02/16/16 12:00 97.4 70 18 116/62 95 02/16/16 08:00 97.2 71 18 94/60 96 02/16/16 00:00 97.2 70 17 100/57 95 02/15/16 20:00 97.8 79 18 110/60 94 I/O 02/15/16 02/15/16 02/15/16 02/16/16 02/16/16 02/16/16 07:00 15:00 23:00 07:00 15:00 23:00 Intake Total 365 ml 460 ml 442 ml 0 ml Output Total 350 ml 300 ml 300 ml 500 ml Balance 15 ml 160 ml 142 ml -500 ml Intake Oral 0 ml 0 ml 0 ml 0 ml IV Total 365 ml 0 ml 0 ml 0 ml Tube Feeding 460 ml 392 ml Other 50 ml Output Urine Total 350 ml 300 ml 300 ml 500 ml # Bowel Movements 2 3 2 1 Imaging Last Impressions Abdomen X-Ray 01/30/16 0000 Signed Impressions: Service Date/Time: Saturday, January 30, 2016 14:17 - CONCLUSION: Satisfactory PEG tube positioning Mikael Valladares MD Abdomen/Pelvis CT 01/20/16 0000 Signed Impressions: Service Date/Time: Wednesday, January 20, 2016 07:16 - CONCLUSION: 1. Mild obstructive uropathy on the right without visualization of radiopaque calculus. The tip of the suprapubic catheter is wedged in the region of the right UVJ and may be causing the obstruction. Recommend repositioning of the suprapubic catheter. 2. Cholelithiasis. 3. Renal low densities bilaterally likely related to cyst. 4. Percutaneous gastrostomy tube. Dayday Edmonds MD Objective Remarks GENERAL: This is a well-nourished, well-developed patient, in no apparent distress. CARDIOVASCULAR: Regular rate and rhythm RESPIRATORY: Clear to auscultation. Breath sounds equal bilaterally. No wheezes , rales, or rhonchi. GASTROINTESTINAL: Abdomen soft, non-tender, nondistended. Normal active bowel sounds, G-tube in place. MUSCULOSKELETAL: Extremities without clubbing, cyanosis, or edema. NEURO: Awake, shakes and nods his head. Moves all ext x4, follows directions. Procedures PEG tube repair Medications and IVs Current Medications Medications (Trade) Dose Ordered Sig/Gayathri Route Start Time Stop Time Status Last Admin (NS Flush) 2 ml UNSCH PRN FLUSH 01/20/16 10:15 (NS Flush) 2 ml BID FLUSH 01/20/16 21:00 02/10/16 08:40 (Tylenol) 650 mg Q4H PRN PO 01/20/16 10:15 (Zofran Inj) 4 mg Q6H PRN IVP 01/20/16 10:15 (Tylenol) 650 mg Q6H PRN PO 01/20/16 10:15 (Narcan Inj) 0.4 mg UNSCH PRN IV 01/20/16 10:15 (Vasotec Inj) 1.25 mg Q6H PRN IV PUSH 01/20/16 10:15 (Zyloprim) 100 mg DAILY PEG 01/21/16 09:00 02/16/16 08:35 (Remeron) 7.5 mg HS PEG 01/20/16 21:00 02/16/16 22:09 (Pill Splitter) 1 ea UNSCH PRN OTHER 01/20/16 14:15 02/08/16 20:56 (Imodium) 2 mg Q6H PRN PO 01/21/16 12:45 02/09/16 00:04 (Lomotil Tab) 2 tab Q6H PRN PO 01/21/16 12:45 (Proamatine) 5 mg TID@07,12,17 PO 01/21/16 17:00 02/16/16 16:13 (Protonix) 40 mg DAILY PO 01/27/16 09:00 02/16/16 08:35 (Bactroban 2% Oint) 1 applic Q12HR TOPICAL 01/30/16 12:00 02/16/16 21:00 (Pepcid) 20 mg BID PEG 02/02/16 21:00 02/16/16 22:09 Urinary Catheter: No Vascular Central Line Catheter: No A/P Problem List: (1) GI bleed ICD Code: K92.2 Status: Resolved (2) Essential tremor ICD Code: G25.0 Status: Chronic (3) Dementia ICD Code: F03.90 Status: Chronic (4) Parkinson disease ICD Code: G20 Status: Chronic (5) Hypotension ICD Code: I95.9 Status: Resolved (6) Loose stools ICD Code: R19.5 Status: Resolved Assessment and Plan Right eye infection possibly conjunctivitis: Resolved. The patient treated with ciprofloxacin eyedrops. Treatment completed. - Upper GI bleed: Resolved. H&H are stable. GI signed off. Continue PPI. - Hypotension: Will order IV fluid bolus,. Continue midodrine. - Previous Loose stools: Resolved. C. difficile negative. Stool culture and O&P negative. Continue Lactinex. Last Imodium was given on January 30 - Stage I decubitus ulcer, sacral skin tear: Continue local wound care. - Parkinson's disease: Patient has dementia and resting tremor. Chronic, stable. - Mood disorder: Stable on Remeron. - Mild obstructive uropathy: Appreciate urology recommendations. Suprapubic catheter in place, last changed 01/21/16. To be changed monthly. - UTI: Urine culture positive for Proteus mirabilis and GBS. Patient has finished a complete course of antibiotics. - Protein calorie malnutrition: Continue tube feeds. Currently tolerating Jevity 1.5 at 60 mg per hour - Generalized Weakness: Continue PT. - DVT prophylaxis: SCDs. Avoid chemical prophylaxis secondary to GI bleed. Continue current care with no adjustment of medications today. Discharge Planning awaiting placement Saúl Cadena MD Feb 16, 2016 16:03
[2016-02-16 20:00] VITALS: BP 104/63; PULSE 76; RESP 18; TEMP 97.5; O2SAT 96
[2016-02-16] MEDS: MIRTAZAPINE 15 MG TAB PEG SCH (22:09)
[2016-02-17] VITALS: BP 100/60; PULSE 72; RESP 18; TEMP 97; O2SAT 96
[2016-02-17] MEDS: MIDODRINE 5 MG TAB PO SCH ×3 (05:44→16:56)
[2016-02-17 08:00] VITALS: BP 102/62; PULSE 72; RESP 16; TEMP 97.1; O2SAT 97
[2016-02-17] MEDS: MUPIROCIN 2% OINT 22 GM TUBE TOPICAL SCH ×2 (09:00→20:02)
[2016-02-17] MEDS: SODIUM CHLORIDE 0.9% FLUSH 5 ML FLUSH FLUSH SCH ×2 (09:00→20:04)
[2016-02-17] MEDS: FAMOTIDINE 20 MG TAB PEG SCH ×2 (09:29→20:01)
[2016-02-17] MEDS: PANTOPRAZOLE SOD 40 MG DELAYED RELEASE TAB PO SCH (09:29)
[2016-02-17] MEDS: ALLOPURINOL 100 MG TAB PEG SCH (09:29)
[2016-02-17 12:00] VITALS: BP 95/52; PULSE 68; RESP 16; TEMP 96.5; O2SAT 93
[2016-02-17 16:00] VITALS: BP 99/55; PULSE 72; RESP 16; TEMP 96.9; O2SAT 93
--- NOTE | 2016-02-17 18:56 | HHI.PR ---
Subjective Remarks no major overnight events bp on the 90's systolic denies cp/sob still non verbal Objective Vitals Vital Signs Date Time Temp Pulse Resp B/P Pulse Ox O2 Delivery O2 Flow Rate FiO2 02/17/16 16:00 96.9 72 16 99/55 93 02/17/16 12:00 96.5 68 16 95/52 93 02/17/16 08:00 97.1 72 16 102/62 97 02/17/16 00:00 97.0 72 18 100/60 96 02/16/16 20:00 97.5 76 18 104/63 96 I/O 02/16/16 02/16/16 02/16/16 02/17/16 02/17/16 02/17/16 06:59 14:59 22:59 06:59 14:59 22:59 Intake Total 0 ml 807 ml 288 ml 402 ml 0 ml Output Total 500 ml 350 ml 250 ml 800 ml 700 ml Balance -500 ml 457 ml 38 ml -398 ml -700 ml Intake Oral 0 ml 0 ml 0 ml 0 ml 0 ml IV Total 0 ml Tube Feeding 807 ml 288 ml 402 ml Output Urine Total 500 ml 350 ml 250 ml 800 ml 700 ml # Bowel Movements 1 0 0 Objective Remarks GENERAL: This is a well-nourished, well-developed patient, in no apparent distress. CARDIOVASCULAR: Regular rate and rhythm RESPIRATORY: Clear to auscultation. Breath sounds equal bilaterally. No wheezes , rales, or rhonchi. GASTROINTESTINAL: Abdomen soft, non-tender, nondistended. Normal active bowel sounds, G-tube in place. MUSCULOSKELETAL: Extremities without clubbing, cyanosis, or edema. NEURO: Awake, shakes and nods his head. Moves all ext x4, follows directions. Procedures PEG tube repair Medications and IVs Current Medications Medications (Trade) Dose Ordered Sig/Gayathri Route Start Time Stop Time Status Last Admin (NS Flush) 2 ml UNSCH PRN FLUSH 01/20/16 10:15 (NS Flush) 2 ml BID FLUSH 01/20/16 21:00 02/10/16 08:40 (Tylenol) 650 mg Q4H PRN PO 01/20/16 10:15 (Zofran Inj) 4 mg Q6H PRN IVP 01/20/16 10:15 (Tylenol) 650 mg Q6H PRN PO 01/20/16 10:15 (Narcan Inj) 0.4 mg UNSCH PRN IV 01/20/16 10:15 (Vasotec Inj) 1.25 mg Q6H PRN IV PUSH 01/20/16 10:15 (Zyloprim) 100 mg DAILY PEG 01/21/16 09:00 02/17/16 09:29 (Remeron) 7.5 mg HS PEG 01/20/16 21:00 02/17/16 20:01 (Pill Splitter) 1 ea UNSCH PRN OTHER 01/20/16 14:15 02/08/16 20:56 (Imodium) 2 mg Q6H PRN PO 01/21/16 12:45 02/09/16 00:04 (Lomotil Tab) 2 tab Q6H PRN PO 01/21/16 12:45 (Proamatine) 5 mg TID@07,12,17 PO 01/21/16 17:00 02/17/16 16:56 (Protonix) 40 mg DAILY PO 01/27/16 09:00 02/17/16 09:29 (Bactroban 2% Oint) 1 applic Q12HR TOPICAL 01/30/16 12:00 02/17/16 20:02 (Pepcid) 20 mg BID PEG 02/02/16 21:00 02/17/16 20:01 A/P Problem List: (1) GI bleed ICD Code: K92.2 Status: Resolved (2) Essential tremor ICD Code: G25.0 Status: Chronic (3) Dementia ICD Code: F03.90 Status: Chronic (4) Parkinson disease ICD Code: G20 Status: Chronic (5) Hypotension ICD Code: I95.9 Status: Resolved (6) Loose stools ICD Code: R19.5 Status: Resolved Assessment and Plan Right eye infection possibly conjunctivitis: Resolved. The patient treated with ciprofloxacin eyedrops. Treatment completed. - Upper GI bleed: Resolved. H&H are stable. GI signed off. Continue PPI. - Hypotension: Will order IV fluid bolus,. Continue midodrine. - Previous Loose stools: Resolved. C. difficile negative. Stool culture and O&P negative. Continue Lactinex. Last Imodium was given on January 30 - Stage I decubitus ulcer, sacral skin tear: Continue local wound care. - Parkinson's disease: Patient has dementia and resting tremor. Chronic, stable. - Mood disorder: Stable on Remeron. - Mild obstructive uropathy: Appreciate urology recommendations. Suprapubic catheter in place, last changed 01/21/16. To be changed monthly. - UTI: Urine culture positive for Proteus mirabilis and GBS. Patient has finished a complete course of antibiotics. - Protein calorie malnutrition: Continue tube feeds. Currently tolerating Jevity 1.5 at 60 mg per hour - Generalized Weakness: Continue PT. - DVT prophylaxis: SCDs. Avoid chemical prophylaxis secondary to GI bleed. Continue current care with no adjustment of medications today. Discharge Planning awaiting placement Saúl Cadena MD Feb 17, 2016 18:56
[2016-02-17 20:00] VITALS: BP 90/57; PULSE 74; RESP 20; TEMP 97.1; O2SAT 95
[2016-02-17] MEDS: MIRTAZAPINE 15 MG TAB PEG SCH (20:01)
[2016-02-18] VITALS: BP 104/63; PULSE 69; RESP 20; TEMP 96.6; O2SAT 95
[2016-02-18 00:58] LABS: AUTOMATED NEUTROPHIL # 3.4 TH/MM3 (1.8-7.7); BASOPHIL # 0.1 TH/MM3 (0-0.2); BASOPHIL % 0.7 % (0.0-2.0); EOSINOPHIL # 0.3 TH/MM3 (0-0.4); EOSINOPHIL % 3.8 % (0.0-4.0); HEMATOCRIT 40.1 % (39.0-51.0); HEMO FLAGS DIFF FINAL; LYMPH % 40.1 % (9.0-44.0); LYMPHOCYTE # 2.9 TH/MM3 (1.0-4.8); MEAN CELL VOLUME 86.1 FL (80.0-100.0); MEAN CORPUSCULAR HEMOGLOBIN 28.9 PG (27.0-34.0); MEAN CORPUSCULAR HGB CONC 33.5 % (32.0-36.0); MONO % 8.7 % (0.0-8.0); NEUT % 46.7 % (16.0-70.0); PLATELET COUNT 171 TH/MM3 (150-450); RED BLOOD COUNT 4.66 MIL/MM3 (4.50-5.90); RED CELL DISTRIBUTION WIDTH 17.1 % (11.6-17.2); WHITE BLOOD COUNT 7.2 TH/MM3 (4.0-11.0)
[2016-02-18 01:22] LABS: BICARBONATE 27.3 MEQ/L (21.0-32.0); POTASSIUM 3.8 MEQ/L (3.5-5.1)
[2016-02-18 04:00] VITALS: BP 98/58; PULSE 78; RESP 20; TEMP 96.2; O2SAT 94
[2016-02-18] MEDS: MIDODRINE 5 MG TAB PO SCH ×4 (05:35→16:54)
--- NOTE | 2016-02-18 07:04 | HHI.PR ---
Subjective Remarks Patient's blood pressure on the low side with a systolic blood pressure in the 90s overnight. Nurses could not get a peripheral IV line on the patient, fluid flushes were given to the patient. The patient has no complaints, denies chest pain, shortness of breath No reports of fevers, chills, diarrhea, nausea, vomiting or abdominal pain Objective Vitals Vital Signs Date Time Temp Pulse Resp B/P Pulse Ox O2 Delivery O2 Flow Rate FiO2 02/18/16 04:00 96.2 78 20 98/58 94 02/18/16 00:00 96.6 69 20 104/63 95 02/17/16 20:00 97.1 74 20 90/57 95 02/17/16 16:00 96.9 72 16 99/55 93 02/17/16 12:00 96.5 68 16 95/52 93 02/17/16 08:00 97.1 72 16 102/62 97 I/O 02/17/16 02/17/16 02/17/16 02/18/16 02/18/16 02/18/16 07:00 15:00 23:00 07:00 15:00 23:00 Intake Total 402 ml 0 ml 1036 ml 1076 ml Output Total 800 ml 700 ml 350 ml 675 ml Balance -398 ml -700 ml 686 ml 401 ml Intake Oral 0 ml 0 ml 0 ml 0 ml Tube Feeding 402 ml 836 ml 376 ml Tube Irrigant 200 ml Other 200 ml 500 ml Output Urine Total 800 ml 700 ml 350 ml 675 ml # Bowel Movements 0 1 Result Diagram: 02/18/16 0035 02/18/16 0035 Imaging Last Impressions Abdomen X-Ray 01/30/16 0000 Signed Impressions: Service Date/Time: Saturday, January 30, 2016 14:17 - CONCLUSION: Satisfactory PEG tube positioning Mikael Valladares MD Abdomen/Pelvis CT 01/20/16 0000 Signed Impressions: Service Date/Time: Wednesday, January 20, 2016 07:16 - CONCLUSION: 1. Mild obstructive uropathy on the right without visualization of radiopaque calculus. The tip of the suprapubic catheter is wedged in the region of the right UVJ and may be causing the obstruction. Recommend repositioning of the suprapubic catheter. 2. Cholelithiasis. 3. Renal low densities bilaterally likely related to cyst. 4. Percutaneous gastrostomy tube. Dayday Edmonds MD Objective Remarks GENERAL: This is a well-nourished, well-developed patient, in no apparent distress. CARDIOVASCULAR: Regular rate and rhythm RESPIRATORY: Clear to auscultation. Breath sounds equal bilaterally. No wheezes , rales, or rhonchi. GASTROINTESTINAL: Abdomen soft, non-tender, nondistended. Normal active bowel sounds, G-tube in place. MUSCULOSKELETAL: Extremities without clubbing, cyanosis, or edema. NEURO: Awake, shakes and nods his head. Moves all ext x4, follows directions. Procedures PEG tube repair Medications and IVs Current Medications Medications (Trade) Dose Ordered Sig/Gayathri Route Start Time Stop Time Status Last Admin (NS Flush) 2 ml UNSCH PRN FLUSH 01/20/16 10:15 (NS Flush) 2 ml BID FLUSH 01/20/16 21:00 02/10/16 08:40 (Tylenol) 650 mg Q4H PRN PO 01/20/16 10:15 (Zofran Inj) 4 mg Q6H PRN IVP 01/20/16 10:15 (Tylenol) 650 mg Q6H PRN PO 01/20/16 10:15 (Narcan Inj) 0.4 mg UNSCH PRN IV 01/20/16 10:15 (Vasotec Inj) 1.25 mg Q6H PRN IV PUSH 01/20/16 10:15 (Zyloprim) 100 mg DAILY PEG 01/21/16 09:00 02/18/16 08:48 (Remeron) 7.5 mg HS PEG 01/20/16 21:00 02/17/16 20:01 (Pill Splitter) 1 ea UNSCH PRN OTHER 01/20/16 14:15 02/08/16 20:56 (Imodium) 2 mg Q6H PRN PO 01/21/16 12:45 02/09/16 00:04 (Lomotil Tab) 2 tab Q6H PRN PO 01/21/16 12:45 (Protonix) 40 mg DAILY PO 01/27/16 09:00 02/18/16 08:48 (Bactroban 2% Oint) 1 applic Q12HR TOPICAL 01/30/16 12:00 02/18/16 08:49 (Pepcid) 20 mg BID PEG 02/02/16 21:00 02/18/16 08:48 (Proamatine) 10 mg TID@07,12,17 PO 02/18/16 07:00 02/18/16 08:49 Urinary Catheter: No Vascular Central Line Catheter: No A/P Problem List: (1) GI bleed ICD Code: K92.2 Status: Resolved (2) Essential tremor ICD Code: G25.0 Status: Chronic (3) Dementia ICD Code: F03.90 Status: Chronic (4) Parkinson disease ICD Code: G20 Status: Chronic (5) Hypotension ICD Code: I95.9 Status: Resolved (6) Loose stools ICD Code: R19.5 Status: Resolved Assessment and Plan Right eye infection possibly conjunctivitis: Resolved. The patient treated with ciprofloxacin eyedrops. Treatment completed. - Upper GI bleed: Resolved. H&H are stable. GI signed off. Continue PPI. - Hypotension: Given recurrent hypotension. I will increased dose of midodrine to 10 mg by mouth 3 times a day. I will also give fluid flushes via PEG to avoid dehydration. - Previous Loose stools: Resolved. C. difficile negative. Stool culture and O&P negative. Continue Lactinex. Last Imodium was given on January 30 - Stage I decubitus ulcer, sacral skin tear: Continue local wound care. - Parkinson's disease: Patient has dementia and resting tremor. Chronic, stable. - Mood disorder: Stable on Remeron. - Mild obstructive uropathy: Appreciate urology recommendations. Suprapubic catheter in place, last changed 01/21/16. To be changed monthly. - UTI: Urine culture positive for Proteus mirabilis and GBS. Patient has finished a complete course of antibiotics. - Protein calorie malnutrition: Continue tube feeds. Currently tolerating Jevity 1.5 at 60 mg per hour - Generalized Weakness: Continue PT. - DVT prophylaxis: SCDs. Avoid chemical prophylaxis secondary to GI bleed. Continue current care with no adjustment of medications today. Discharge Planning awaiting placement Saúl Cadena MD Feb 18, 2016 07:04
[2016-02-18 08:00] VITALS: BP 111/62; PULSE 75; RESP 16; TEMP 96.7; O2SAT 98
[2016-02-18] MEDS: PANTOPRAZOLE SOD 40 MG DELAYED RELEASE TAB PO SCH (08:48)
[2016-02-18] MEDS: FAMOTIDINE 20 MG TAB PEG SCH ×2 (08:48→22:02)
[2016-02-18] MEDS: ALLOPURINOL 100 MG TAB PEG SCH (08:48)
[2016-02-18] MEDS: SODIUM CHLORIDE 0.9% FLUSH 5 ML FLUSH FLUSH SCH ×2 (08:49→21:00)
[2016-02-18] MEDS: MUPIROCIN 2% OINT 22 GM TUBE TOPICAL SCH ×2 (08:49→22:03)
[2016-02-18 12:00] VITALS: BP 105/63; PULSE 63; RESP 16; TEMP 96.7; O2SAT 95
[2016-02-18 16:00] VITALS: BP 105/61; PULSE 68; RESP 16; TEMP 96.2; O2SAT 96
[2016-02-18 20:00] VITALS: BP 110/73; PULSE 71; RESP 20; TEMP 98.7; O2SAT 95
[2016-02-18] MEDS: MIRTAZAPINE 15 MG TAB PEG SCH (22:02)
[2016-02-19] VITALS: BP 106/69; PULSE 72; RESP 20; TEMP 96.5; O2SAT 97
[2016-02-19] MEDS: MIDODRINE 5 MG TAB PO SCH ×3 (06:26→17:00)
[2016-02-19] MEDS: FAMOTIDINE 20 MG TAB PEG SCH ×2 (07:44→21:50)
[2016-02-19] MEDS: SODIUM CHLORIDE 0.9% FLUSH 5 ML FLUSH FLUSH SCH ×2 (07:45→21:00)
[2016-02-19] MEDS: PANTOPRAZOLE SOD 40 MG DELAYED RELEASE TAB PO SCH (07:45)
[2016-02-19] MEDS: ALLOPURINOL 100 MG TAB PEG SCH (07:45)
[2016-02-19] MEDS: MUPIROCIN 2% OINT 22 GM TUBE TOPICAL SCH ×2 (07:45→21:51)
[2016-02-19 08:00] VITALS: BP 117/61; PULSE 37; RESP 16; TEMP 96; O2SAT 97
[2016-02-19 12:00] VITALS: BP 112/61; PULSE 67; RESP 17; TEMP 97.4; O2SAT 97
[2016-02-19 15:58] VITALS: BP 111/67; PULSE 68; RESP 16; TEMP 96.8; O2SAT 94
--- NOTE | 2016-02-19 18:06 | HHI.PR ---
Subjective Remarks no major overnight events BP low denies cp/sob Objective Vitals Vital Signs Date Time Temp Pulse Resp B/P Pulse Ox O2 Delivery O2 Flow Rate FiO2 02/19/16 15:58 96.8 68 16 111/67 94 02/19/16 12:00 97.4 67 17 112/61 97 02/19/16 08:00 96.0 37 16 117/61 97 02/19/16 00:00 96.5 72 20 106/69 97 02/18/16 20:00 98.7 71 20 110/73 95 I/O 02/18/16 02/18/16 02/18/16 02/19/16 02/19/16 02/19/16 07:00 15:00 23:00 07:00 15:00 23:00 Intake Total 1076 ml 0 ml 1061 ml 638 ml 571 ml Output Total 675 ml 450 ml 350 ml 700 ml 700 ml Balance 401 ml -450 ml 711 ml -62 ml -129 ml Intake Oral 0 ml 0 ml 0 ml 0 ml 0 ml IV Total 0 ml Tube Feeding 376 ml 861 ml 438 ml 371 ml Tube Irrigant 200 ml Other 500 ml 200 ml 200 ml 200 ml Output Urine Total 675 ml 450 ml 350 ml 700 ml 700 ml # Bowel Movements 1 2 1 3 Result Diagram: 02/18/163402/18/1634 Objective Remarks GENERAL: This is a well-nourished, well-developed patient, in no apparent distress. CARDIOVASCULAR: Regular rate and rhythm RESPIRATORY: Clear to auscultation. Breath sounds equal bilaterally. No wheezes , rales, or rhonchi. GASTROINTESTINAL: Abdomen soft, non-tender, nondistended. Normal active bowel sounds, G-tube in place. MUSCULOSKELETAL: Extremities without clubbing, cyanosis, or edema. NEURO: Awake, shakes and nods his head. Moves all ext x4, follows directions. Procedures PEG tube repair A/P Problem List: (1) GI bleed ICD Code: K92.2 Status: Resolved (2) Essential tremor ICD Code: G25.0 Status: Chronic (3) Dementia ICD Code: F03.90 Status: Chronic (4) Parkinson disease ICD Code: G20 Status: Chronic (5) Hypotension ICD Code: I95.9 Status: Resolved (6) Loose stools ICD Code: R19.5 Status: Resolved Assessment and Plan Right eye infection possibly conjunctivitis: Resolved. The patient treated with ciprofloxacin eyedrops. Treatment completed. - Upper GI bleed: Resolved. H&H are stable. GI signed off. Continue PPI. - Hypotension: Given recurrent hypotension. I will increased dose of midodrine to 10 mg by mouth 3 times a day. I will also give fluid flushes via PEG to avoid dehydration. - Previous Loose stools: Resolved. C. difficile negative. Stool culture and O&P negative. Continue Lactinex. Last Imodium was given on January 30 - Stage I decubitus ulcer, sacral skin tear: Continue local wound care. - Parkinson's disease: Patient has dementia and resting tremor. Chronic, stable. - Mood disorder: Stable on Remeron. - Mild obstructive uropathy: Appreciate urology recommendations. Suprapubic catheter in place, last changed 01/21/16. To be changed monthly. - UTI: Urine culture positive for Proteus mirabilis and GBS. Patient has finished a complete course of antibiotics. - Protein calorie malnutrition: Continue tube feeds. Currently tolerating Jevity 1.5 at 60 mg per hour - Generalized Weakness: Continue PT. - DVT prophylaxis: SCDs. Avoid chemical prophylaxis secondary to GI bleed. Continue current care with no adjustment of medications today. Discharge Planning awaiting placement Saúl Cadena MD Feb 19, 2016 18:06
[2016-02-19 20:00] VITALS: BP 105/66; PULSE 70; RESP 20; TEMP 96.8; O2SAT 94
[2016-02-19] MEDS: MIRTAZAPINE 15 MG TAB PEG SCH (21:50)
[2016-02-20] VITALS: BP 117/74; PULSE 76; RESP 20; TEMP 95.1; O2SAT 95
[2016-02-20] MEDS: MIDODRINE 5 MG TAB PO SCH ×3 (06:46→16:14)
[2016-02-20 08:00] VITALS: BP 122/70; PULSE 74; RESP 17; TEMP 96.7; O2SAT 96
[2016-02-20] MEDS: PANTOPRAZOLE SOD 40 MG DELAYED RELEASE TAB PO SCH (09:00)
[2016-02-20] MEDS: MUPIROCIN 2% OINT 22 GM TUBE TOPICAL SCH ×2 (09:00→20:50)
[2016-02-20] MEDS: SODIUM CHLORIDE 0.9% FLUSH 5 ML FLUSH FLUSH SCH ×2 (09:00→20:55)
[2016-02-20] MEDS: FAMOTIDINE 20 MG TAB PEG SCH ×2 (09:05→20:49)
[2016-02-20] MEDS: ALLOPURINOL 100 MG TAB PEG SCH (09:05)
[2016-02-20 12:00] VITALS: BP 117/63; PULSE 87; RESP 16; TEMP 96.8; O2SAT 97
[2016-02-20 16:00] VITALS: BP 120/70; PULSE 80; RESP 16; TEMP 97; O2SAT 96
--- NOTE | 2016-02-20 18:13 | HHI.PR ---
Subjective Remarks no major overnight events tolerating tube feeds denies cp/sob Bp much improved no episodes of hypotension denies nausea/vomiting Objective Vitals Vital Signs Date Time Temp Pulse Resp B/P Pulse Ox O2 Delivery O2 Flow Rate FiO2 02/20/16 16:00 97.0 80 16 120/70 96 02/20/16 12:00 96.8 87 16 117/63 97 02/20/16 08:00 96.7 74 17 122/70 96 02/20/16 00:00 95.1 76 20 117/74 95 02/19/16 20:00 96.8 70 20 105/66 94 I/O 02/19/16 02/19/16 02/19/16 02/20/16 02/20/16 02/20/16 07:00 15:00 23:00 07:00 15:00 23:00 Intake Total 638 ml 571 ml 622 ml 643 ml 746 ml Output Total 700 ml 700 ml 550 ml 350 ml 400 ml Balance -62 ml -129 ml 72 ml 293 ml 346 ml Intake Oral 0 ml 0 ml 0 ml 0 ml 0 ml IV Total 0 ml 0 ml Tube Feeding 438 ml 371 ml 422 ml 443 ml 346 ml Other 200 ml 200 ml 200 ml 200 ml 400 ml Output Urine Total 700 ml 700 ml 550 ml 350 ml 400 ml # Bowel Movements 1 3 1 3 Result Diagram: 02/18/16 0035 02/18/16 0035 Imaging Last Impressions Abdomen X-Ray 01/30/16 0000 Signed Impressions: Service Date/Time: Saturday, January 30, 2016 14:17 - CONCLUSION: Satisfactory PEG tube positioning Mikael Valladares MD Abdomen/Pelvis CT 01/20/16 0000 Signed Impressions: Service Date/Time: Wednesday, January 20, 2016 07:16 - CONCLUSION: 1. Mild obstructive uropathy on the right without visualization of radiopaque calculus. The tip of the suprapubic catheter is wedged in the region of the right UVJ and may be causing the obstruction. Recommend repositioning of the suprapubic catheter. 2. Cholelithiasis. 3. Renal low densities bilaterally likely related to cyst. 4. Percutaneous gastrostomy tube. Dayday Edmonds MD Objective Remarks GENERAL: This is a well-nourished, well-developed patient, in no apparent distress. CARDIOVASCULAR: Regular rate and rhythm RESPIRATORY: Clear to auscultation. Breath sounds equal bilaterally. No wheezes , rales, or rhonchi. GASTROINTESTINAL: Abdomen soft, non-tender, nondistended. Normal active bowel sounds, G-tube in place. MUSCULOSKELETAL: Extremities without clubbing, cyanosis, or edema. NEURO: Awake, shakes and nods his head. Moves all ext x4, follows directions. Procedures PEG tube repair Medications and IVs Current Medications Medications (Trade) Dose Ordered Sig/Gayathri Route Start Time Stop Time Status Last Admin (NS Flush) 2 ml UNSCH PRN FLUSH 01/20/16 10:15 (NS Flush) 2 ml BID FLUSH 01/20/16 21:00 02/10/16 08:40 (Tylenol) 650 mg Q4H PRN PO 01/20/16 10:15 (Zofran Inj) 4 mg Q6H PRN IVP 01/20/16 10:15 (Tylenol) 650 mg Q6H PRN PO 01/20/16 10:15 (Narcan Inj) 0.4 mg UNSCH PRN IV 01/20/16 10:15 (Vasotec Inj) 1.25 mg Q6H PRN IV PUSH 01/20/16 10:15 (Zyloprim) 100 mg DAILY PEG 01/21/16 09:00 02/20/16 09:05 (Remeron) 7.5 mg HS PEG 01/20/16 21:00 02/19/16 21:50 (Pill Splitter) 1 ea UNSCH PRN OTHER 01/20/16 14:15 02/08/16 20:56 (Imodium) 2 mg Q6H PRN PO 01/21/16 12:45 02/09/16 00:04 (Lomotil Tab) 2 tab Q6H PRN PO 01/21/16 12:45 (Protonix) 40 mg DAILY PO 01/27/16 09:00 02/18/16 08:48 (Bactroban 2% Oint) 1 applic Q12HR TOPICAL 01/30/16 12:00 02/19/16 21:51 (Pepcid) 20 mg BID PEG 02/02/16 21:00 02/20/16 09:05 (Proamatine) 10 mg TID@,12,17 PO 02/18/16 07:00 02/20/16 16:14 Urinary Catheter: No Vascular Central Line Catheter: No A/P Problem List: (1) GI bleed ICD Code: K92.2 Status: Resolved (2) Essential tremor ICD Code: G25.0 Status: Chronic (3) Dementia ICD Code: F03.90 Status: Chronic (4) Parkinson disease ICD Code: G20 Status: Chronic (5) Hypotension ICD Code: I95.9 Status: Resolved (6) Loose stools ICD Code: R19.5 Status: Resolved Assessment and Plan Right eye infection possibly conjunctivitis: Resolved. The patient treated with ciprofloxacin eyedrops. Treatment completed. - Upper GI bleed: Resolved. H&H are stable. GI signed off. Continue PPI. - Hypotension: Hypotension resolved. Continue midodrine to 10 mg by mouth 3 times a day. Continue to give fluid flushes via PEG to avoid dehydration. - Previous Loose stools: Resolved. C. difficile negative. Stool culture and O&P negative. Continue Lactinex. Last Imodium was given on January 30 - Stage I decubitus ulcer, sacral skin tear: Continue local wound care. - Parkinson's disease: Patient has dementia and resting tremor. Chronic, stable. - Mood disorder: Stable on Remeron. - Mild obstructive uropathy: Appreciate urology recommendations. Suprapubic catheter in place, last changed 01/21/16. To be changed monthly. - UTI: Urine culture positive for Proteus mirabilis and GBS. Patient has finished a complete course of antibiotics. - Protein calorie malnutrition: Continue tube feeds. Currently tolerating Jevity 1.5 at 60 mg per hour - Generalized Weakness: Continue PT. - DVT prophylaxis: SCDs. Avoid chemical prophylaxis secondary to GI bleed. Continue current care with no adjustment of medications today. Discharge Planning awaiting placement Saúl Cadena MD Feb 20, 2016 18:13
[2016-02-20 20:00] VITALS: BP 100/58; PULSE 76; RESP 16; TEMP 97.2; O2SAT 94
[2016-02-20] MEDS: MIRTAZAPINE 15 MG TAB PEG SCH (20:49)
[2016-02-21] VITALS: BP 108/76; PULSE 96; RESP 16; TEMP 98.6; O2SAT 95
[2016-02-21] MEDS: MIDODRINE 5 MG TAB PO SCH ×3 (05:46→17:17)
[2016-02-21 08:00] VITALS: BP 105/59; PULSE 66; RESP 17; TEMP 97.4; O2SAT 95
[2016-02-21] MEDS: ALLOPURINOL 100 MG TAB PEG SCH (08:40)
[2016-02-21] MEDS: PANTOPRAZOLE SOD 40 MG DELAYED RELEASE TAB PO SCH (08:40)
[2016-02-21] MEDS: SODIUM CHLORIDE 0.9% FLUSH 5 ML FLUSH FLUSH SCH ×2 (08:40→19:39)
[2016-02-21] MEDS: FAMOTIDINE 20 MG TAB PEG SCH ×2 (08:40→19:39)
[2016-02-21] MEDS: MUPIROCIN 2% OINT 22 GM TUBE TOPICAL SCH ×2 (09:00→19:46)
[2016-02-21 12:00] VITALS: BP 109/50; PULSE 64; RESP 16; TEMP 97.9; O2SAT 95
--- NOTE | 2016-02-21 12:04 | HHI.PR ---
Subjective Remarks Follow-up hypotension, UTI. Patient states that he feels okay today. Has no specific complaints at this time. Objective Vitals Vital Signs Date Time Temp Pulse Resp B/P Pulse Ox O2 Delivery O2 Flow Rate FiO2 02/21/16 08:00 97.4 66 17 105/59 95 02/21/16 00:00 98.6 96 16 108/76 95 02/20/16 20:00 97.2 76 16 100/58 94 02/20/16 16:00 97.0 80 16 120/70 96 02/20/16 12:00 96.8 87 16 117/63 97 I/O 02/20/16 02/20/16 02/20/16 02/21/16 02/21/16 02/21/16 07:00 15:00 23:00 07:00 15:00 23:00 Intake Total 643 ml 746 ml 413 ml 0 ml Output Total 350 ml 400 ml 400 ml 400 ml Balance 293 ml 346 ml 13 ml -400 ml Intake Oral 0 ml 0 ml 0 ml 0 ml IV Total 0 ml 0 ml Tube Feeding 443 ml 346 ml 413 ml Other 200 ml 400 ml Output Urine Total 350 ml 400 ml 400 ml 400 ml # Bowel Movements 1 3 1 1 Result Diagram: 02/18/16 0035 02/18/16 0035 Imaging Last Impressions Abdomen X-Ray 01/30/16 0000 Signed Impressions: Service Date/Time: Saturday, January 30, 2016 14:17 - CONCLUSION: Satisfactory PEG tube positioning Mikael Valladares MD Abdomen/Pelvis CT 01/20/16 0000 Signed Impressions: Service Date/Time: Wednesday, January 20, 2016 07:16 - CONCLUSION: 1. Mild obstructive uropathy on the right without visualization of radiopaque calculus. The tip of the suprapubic catheter is wedged in the region of the right UVJ and may be causing the obstruction. Recommend repositioning of the suprapubic catheter. 2. Cholelithiasis. 3. Renal low densities bilaterally likely related to cyst. 4. Percutaneous gastrostomy tube. Dayday Edmonds MD Objective Remarks General: Elderly male in no acute distress. Heart: Regular rate and rhythm. No murmur. Lungs: Clear to auscultation bilaterally. No wheezes, rales, or rhonchi. Breathing is nonlabored. Abdomen: Soft, nontender, nondistended. PEG tube in place. Extremities: No lower extremity edema. Psych: Alert, answers questions appropriately. Procedures PEG tube repair Urinary Catheter: Yes Assessment to: Continue Soto insert reason: Obstruction/Retention Vascular Central Line Catheter: No A/P Problem List: (1) GI bleed ICD Code: K92.2 Status: Resolved (2) Essential tremor ICD Code: G25.0 Status: Chronic (3) Dementia ICD Code: F03.90 Status: Chronic (4) Parkinson disease ICD Code: G20 Status: Chronic (5) Hypotension ICD Code: I95.9 Status: Resolved (6) Loose stools ICD Code: R19.5 Status: Resolved Assessment and Plan 1. Upper GI bleed: Resolved. H&H are stable. GI signed off. Continue PPI. 2. Hypotension: Blood pressure stable. Continue Midodrine. Continue fluid flushes via PEG tube to avoid dehydration. 3. Loose stools: Resolved. C. difficile negative. Stool culture and O&P negative. Continue Lactinex. 4. Stage I decubitus ulcer, sacral skin tear: Continue wound care. 5. Parkinson's disease: Patient has dementia and resting tremor. Chronic, stable. 6. Mood disorder: Stable on Remeron. 7. Mild obstructive uropathy: Appreciate urology recommendations. Suprapubic catheter in place, last changed 01/21/16. To be changed monthly. 8. UTI: Urine culture positive for Proteus mirabilis and GBS. Patient has finished a complete course of antibiotics. 9. Protein calorie malnutrition: Continue tube feeds. On Jevity 1.5 at 60 ml/h. 10. Weakness: Continue PT. 11. DVT prophylaxis: SCDs. Avoid chemical prophylaxis secondary to GI bleed. Discharge Planning Awaiting SNF placement. Case management assisting with discharge planning. No accepting facility at this time. Jaguar Carranza MD Feb 21, 2016 12:04
[2016-02-21 16:00] VITALS: BP 106/68; PULSE 68; RESP 17; TEMP 98.5; O2SAT 95
[2016-02-21] MEDS: MIRTAZAPINE 15 MG TAB PEG SCH (19:39)
[2016-02-21 20:00] VITALS: BP 102/58; PULSE 67; RESP 18; TEMP 97.4; O2SAT 95
[2016-02-22] VITALS: BP 106/72; PULSE 69; RESP 18; TEMP 98.6; O2SAT 96
[2016-02-22 04:00] VITALS: BP 108/78; PULSE 78; RESP 18; TEMP 97.6; O2SAT 96
[2016-02-22] MEDS: MIDODRINE 5 MG TAB PO SCH ×3 (05:34→17:00)
[2016-02-22] MEDS: PANTOPRAZOLE SOD 40 MG DELAYED RELEASE TAB PO SCH (07:21)
[2016-02-22] MEDS: ALLOPURINOL 100 MG TAB PEG SCH (07:24)
[2016-02-22] MEDS: FAMOTIDINE 20 MG TAB PEG SCH ×2 (07:24→20:42)
[2016-02-22] MEDS: SODIUM CHLORIDE 0.9% FLUSH 5 ML FLUSH FLUSH SCH ×2 (07:30→20:42)
[2016-02-22] MEDS: MUPIROCIN 2% OINT 22 GM TUBE TOPICAL SCH ×2 (07:30→20:42)
[2016-02-22 08:00] VITALS: BP 114/59; PULSE 68; RESP 15; TEMP 96.9; O2SAT 97
--- NOTE | 2016-02-22 10:44 | HHI.PR ---
Subjective Remarks Patient sleeping, but awakens and answers questions. Has no complaints at this time. Objective Vitals Vital Signs Date Time Temp Pulse Resp B/P Pulse Ox O2 Delivery O2 Flow Rate FiO2 02/22/16 08:00 96.9 68 15 114/59 97 02/22/16 04:00 97.6 78 18 108/78 96 02/22/16 00:00 98.6 69 18 106/72 96 02/21/16 20:00 97.4 67 18 102/58 95 02/21/16 16:00 98.5 68 17 106/68 95 02/21/16 12:00 97.9 64 16 109/50 95 I/O 02/21/16 02/21/16 02/21/16 02/22/16 02/22/16 02/22/16 07:00 15:00 23:00 07:00 15:00 23:00 Intake Total 0 ml 0 ml 1439 ml 666 ml Output Total 400 ml 350 ml 750 ml 400 ml Balance -400 ml -350 ml 689 ml 266 ml Intake Oral 0 ml 0 ml 0 ml 0 ml Tube Feeding 1319 ml 406 ml Tube Irrigant 120 ml 60 ml Other 200 ml Output Urine Total 400 ml 350 ml 750 ml 400 ml # Bowel Movements 1 1 0 Result Diagram: 02/18/16 0035 02/18/16 0035 Imaging Last Impressions Abdomen X-Ray 01/30/16 0000 Signed Impressions: Service Date/Time: Saturday, January 30, 2016 14:17 - CONCLUSION: Satisfactory PEG tube positioning Mikael Valladares MD Abdomen/Pelvis CT 01/20/16 0000 Signed Impressions: Service Date/Time: Wednesday, January 20, 2016 07:16 - CONCLUSION: 1. Mild obstructive uropathy on the right without visualization of radiopaque calculus. The tip of the suprapubic catheter is wedged in the region of the right UVJ and may be causing the obstruction. Recommend repositioning of the suprapubic catheter. 2. Cholelithiasis. 3. Renal low densities bilaterally likely related to cyst. 4. Percutaneous gastrostomy tube. Dayday Edmonds MD Objective Remarks General: Elderly male in no acute distress. Heart: Regular rate and rhythm. No murmur. Lungs: Clear to auscultation bilaterally. No wheezes, rales, or rhonchi. Breathing is nonlabored. Abdomen: Soft, nontender, nondistended. PEG tube in place. Extremities: No lower extremity edema. Psych: Alert, answers questions appropriately. Procedures None Urinary Catheter: Yes Assessment to: Continue Soto insert reason: Obstruction/Retention Vascular Central Line Catheter: No A/P Problem List: (1) GI bleed ICD Code: K92.2 Status: Resolved (2) Essential tremor ICD Code: G25.0 Status: Chronic (3) Dementia ICD Code: F03.90 Status: Chronic (4) Parkinson disease ICD Code: G20 Status: Chronic (5) Hypotension ICD Code: I95.9 Status: Resolved (6) Loose stools ICD Code: R19.5 Status: Resolved Assessment and Plan Reviewed/updated 02/22/16. No changes. 1. Upper GI bleed: Resolved. H&H are stable. GI signed off. Continue PPI. 2. Hypotension: Blood pressure stable. Continue Midodrine. Continue fluid flushes via PEG tube to avoid dehydration. 3. Loose stools: Resolved. C. difficile negative. Stool culture and O&P negative. Continue Lactinex. 4. Stage I decubitus ulcer, sacral skin tear: Continue wound care. 5. Parkinson's disease: Patient has dementia and resting tremor. Chronic, stable. 6. Mood disorder: Stable on Remeron. 7. Mild obstructive uropathy: Appreciate urology recommendations. Suprapubic catheter in place, last changed 01/21/16. To be changed monthly. 8. UTI: Urine culture positive for Proteus mirabilis and GBS. Patient has finished a complete course of antibiotics. 9. Protein calorie malnutrition: Continue tube feeds. On Jevity 1.5 at 60 ml/h. 10. Weakness: Continue PT. 11. DVT prophylaxis: SCDs. Avoid chemical prophylaxis secondary to GI bleed. Discharge Planning Awaiting SNF placement. Case management assisting with discharge planning. No accepting facility at this time. Jaguar Carranza MD Feb 22, 2016 10:44
[2016-02-22 12:00] VITALS: BP 122/68; PULSE 66; RESP 18; TEMP 98; O2SAT 97
[2016-02-22 16:00] VITALS: BP 111/78; PULSE 76; RESP 17; TEMP 98.8; O2SAT 97
[2016-02-22 20:00] VITALS: BP 105/67; PULSE 70; RESP 16; TEMP 98.2; O2SAT 95
[2016-02-22] MEDS: MIRTAZAPINE 15 MG TAB PEG SCH (20:42)
[2016-02-23] VITALS: BP 108/63; PULSE 78; RESP 16; TEMP 97.7; O2SAT 94
[2016-02-23] MEDS: MIDODRINE 5 MG TAB PO SCH ×3 (05:18→15:36)
[2016-02-23] MEDS: PANTOPRAZOLE SOD 40 MG DELAYED RELEASE TAB PO SCH (07:10)
[2016-02-23] MEDS: MUPIROCIN 2% OINT 22 GM TUBE TOPICAL SCH ×2 (07:11→20:49)
[2016-02-23] MEDS: SODIUM CHLORIDE 0.9% FLUSH 5 ML FLUSH FLUSH SCH ×2 (07:11→20:48)
[2016-02-23] MEDS: FAMOTIDINE 20 MG TAB PEG SCH ×2 (07:12→20:48)
[2016-02-23] MEDS: ALLOPURINOL 100 MG TAB PEG SCH (07:12)
[2016-02-23 08:41] VITALS: BP 114/65; PULSE 73; RESP 19; TEMP 96.9; O2SAT 95
[2016-02-23 08:47] VITALS: O2SAT 93
--- NOTE | 2016-02-23 10:37 | HHI.PR ---
Subjective Remarks Patient states that he feels "so-so". No specific complaints at this time. Objective Vitals Vital Signs Date Time Temp Pulse Resp B/P Pulse Ox O2 Delivery O2 Flow Rate FiO2 02/23/16 08:47 93 02/23/16 08:41 96.9 73 19 114/65 95 02/23/16 00:00 97.7 78 16 108/63 94 02/22/16 20:00 98.2 70 16 105/67 95 02/22/16 16:00 98.8 76 17 111/78 97 02/22/16 12:00 98.0 66 18 122/68 97 I/O 02/22/16 02/22/16 02/22/16 02/23/16 02/23/16 02/23/16 06:59 14:59 22:59 06:59 14:59 22:59 Intake Total 666 ml 309 ml 703 ml 660 ml 0 ml Output Total 400 ml 650 ml 550 ml 250 ml Balance 266 ml -341 ml 153 ml 410 ml 0 ml Intake Oral 0 ml 0 ml 0 ml IV Total 0 ml Tube Feeding 406 ml 309 ml 503 ml 460 ml Tube Irrigant 60 ml Other 200 ml 200 ml 200 ml Output Urine Total 400 ml 650 ml 550 ml 250 ml # Bowel Movements 1 2 1 Imaging Last Impressions Abdomen X-Ray 01/30/16 0000 Signed Impressions: Service Date/Time: Saturday, January 30, 2016 14:17 - CONCLUSION: Satisfactory PEG tube positioning Mikael Valladares MD Abdomen/Pelvis CT 01/20/16 0000 Signed Impressions: Service Date/Time: Wednesday, January 20, 2016 07:16 - CONCLUSION: 1. Mild obstructive uropathy on the right without visualization of radiopaque calculus. The tip of the suprapubic catheter is wedged in the region of the right UVJ and may be causing the obstruction. Recommend repositioning of the suprapubic catheter. 2. Cholelithiasis. 3. Renal low densities bilaterally likely related to cyst. 4. Percutaneous gastrostomy tube. Dayday Edmonds MD Objective Remarks General: Elderly male in no acute distress. Heart: Regular rate and rhythm. No murmur. Lungs: Clear to auscultation bilaterally. No wheezes, rales, or rhonchi. Breathing is nonlabored. Abdomen: Soft, nontender, nondistended. PEG tube in place. Extremities: No lower extremity edema. Psych: Alert, answers questions appropriately. Procedures None Urinary Catheter: No Vascular Central Line Catheter: No A/P Problem List: (1) GI bleed ICD Code: K92.2 Status: Resolved (2) Essential tremor ICD Code: G25.0 Status: Chronic (3) Dementia ICD Code: F03.90 Status: Chronic (4) Parkinson disease ICD Code: G20 Status: Chronic (5) Hypotension ICD Code: I95.9 Status: Resolved (6) Loose stools ICD Code: R19.5 Status: Resolved Assessment and Plan Reviewed/updated 02/23/16. No changes. 1. Upper GI bleed: Resolved. H&H are stable. GI signed off. Continue PPI. 2. Hypotension: Blood pressure stable. Continue Midodrine. Continue fluid flushes via PEG tube to avoid dehydration. 3. Loose stools: Resolved. C. difficile negative. Stool culture and O&P negative. Continue Lactinex. 4. Stage I decubitus ulcer, sacral skin tear: Continue wound care. 5. Parkinson's disease: Patient has dementia and resting tremor. Chronic, stable. 6. Mood disorder: Stable on Remeron. 7. Mild obstructive uropathy: Appreciate urology recommendations. Suprapubic catheter in place, last changed 01/21/16. To be changed monthly. 8. UTI: Urine culture positive for Proteus mirabilis and GBS. Patient has finished a complete course of antibiotics. 9. Protein calorie malnutrition: Continue tube feeds. On Jevity 1.5 at 60 ml/h. 10. Weakness: Continue PT. 11. DVT prophylaxis: SCDs. Avoid chemical prophylaxis secondary to GI bleed. Discharge Planning Awaiting SNF placement. Case management assisting with discharge planning. No accepting facility at this time. Jaguar Carranza MD Feb 23, 2016 10:37
[2016-02-23 11:29] VITALS: BP 117/67; PULSE 72; RESP 22; TEMP 97.5; O2SAT 96
[2016-02-23 16:29] VITALS: BP 114/66; PULSE 69; RESP 19; TEMP 97.6; O2SAT 96
[2016-02-23 20:00] VITALS: BP 120/70; PULSE 79; RESP 16; TEMP 98; O2SAT 95
[2016-02-23] MEDS: MIRTAZAPINE 15 MG TAB PEG SCH (20:48)
[2016-02-24] VITALS: BP 112/72; PULSE 73; RESP 16; TEMP 97.7; O2SAT 95
[2016-02-24] MEDS: MIDODRINE 5 MG TAB PO SCH ×3 (05:19→16:37)
[2016-02-24 08:09] VITALS: BP 117/62; PULSE 65; RESP 19; TEMP 97.8; O2SAT 95
[2016-02-24] MEDS: PANTOPRAZOLE SOD 40 MG DELAYED RELEASE TAB PO SCH (08:21)
[2016-02-24] MEDS: FAMOTIDINE 20 MG TAB PEG SCH ×2 (08:21→19:21)
[2016-02-24] MEDS: ALLOPURINOL 100 MG TAB PEG SCH (08:21)
[2016-02-24] MEDS: SODIUM CHLORIDE 0.9% FLUSH 5 ML FLUSH FLUSH SCH ×2 (08:21→19:21)
[2016-02-24] MEDS: MUPIROCIN 2% OINT 22 GM TUBE TOPICAL SCH ×2 (08:22→19:22)
--- NOTE | 2016-02-24 11:22 | HHI.PR ---
Subjective Remarks The patient states that he feels "about the same". No events reported by nursing. Objective Vitals Vital Signs Date Time Temp Pulse Resp B/P Pulse Ox O2 Delivery O2 Flow Rate FiO2 02/24/16 08:09 97.8 65 19 117/62 95 02/24/16 00:00 97.7 73 16 112/72 95 02/23/16 20:00 98.0 79 16 120/70 95 02/23/16 16:29 97.6 69 19 114/66 96 02/23/16 11:29 97.5 72 22 117/67 96 I/O 02/23/16 02/23/16 02/23/16 02/24/16 02/24/16 02/24/16 07:00 15:00 23:00 07:00 15:00 23:00 Intake Total 660 ml 534 ml 598 ml 787 ml 0 ml Output Total 250 ml 650 ml 200 ml 300 ml Balance 410 ml -116 ml 398 ml 487 ml 0 ml Intake Oral 0 ml 0 ml Tube Feeding 460 ml 334 ml 538 ml 387 ml Tube Irrigant 60 ml Other 200 ml 200 ml 400 ml Output Urine Total 250 ml 650 ml 200 ml 300 ml # Bowel Movements 1 1 1 1 Imaging Last Impressions Abdomen X-Ray 01/30/16 0000 Signed Impressions: Service Date/Time: Saturday, January 30, 2016 14:17 - CONCLUSION: Satisfactory PEG tube positioning Mikael Valladares MD Abdomen/Pelvis CT 01/20/16 0000 Signed Impressions: Service Date/Time: Wednesday, January 20, 2016 07:16 - CONCLUSION: 1. Mild obstructive uropathy on the right without visualization of radiopaque calculus. The tip of the suprapubic catheter is wedged in the region of the right UVJ and may be causing the obstruction. Recommend repositioning of the suprapubic catheter. 2. Cholelithiasis. 3. Renal low densities bilaterally likely related to cyst. 4. Percutaneous gastrostomy tube. Dayday Edmonds MD Objective Remarks General: Elderly male in no acute distress. Heart: Regular rate and rhythm. No murmur. Lungs: Clear to auscultation bilaterally. No wheezes, rales, or rhonchi. Breathing is nonlabored. Abdomen: Soft, nontender, nondistended. PEG tube in place. Extremities: No lower extremity edema. Psych: Alert, answers questions appropriately. Procedures None Urinary Catheter: Yes Assessment to: Continue Soto insert reason: Obstruction/Retention Vascular Central Line Catheter: No A/P Problem List: (1) GI bleed ICD Code: K92.2 Status: Resolved (2) Essential tremor ICD Code: G25.0 Status: Chronic (3) Dementia ICD Code: F03.90 Status: Chronic (4) Parkinson disease ICD Code: G20 Status: Chronic (5) Hypotension ICD Code: I95.9 Status: Resolved (6) Loose stools ICD Code: R19.5 Status: Resolved Assessment and Plan Reviewed/updated 02/24/16. No changes. Due to have suprapubic catheter exchanged. 1. Upper GI bleed: Resolved. H&H are stable. GI signed off. Continue PPI. 2. Hypotension: Blood pressure stable. Continue Midodrine. Continue fluid flushes via PEG tube to avoid dehydration. 3. Loose stools: Resolved. C. difficile negative. Stool culture and O&P negative. Continue Lactinex. 4. Stage I decubitus ulcer, sacral skin tear: Continue wound care. 5. Parkinson's disease: Patient has dementia and resting tremor. Chronic, stable. 6. Mood disorder: Stable on Remeron. 7. Mild obstructive uropathy: Appreciate urology recommendations. Suprapubic catheter in place, last changed 01/21/16. To be changed monthly. 8. UTI: Urine culture positive for Proteus mirabilis and GBS. Patient has finished a complete course of antibiotics. 9. Protein calorie malnutrition: Continue tube feeds. On Jevity 1.5 at 60 ml/h. 10. Weakness: Continue PT. 11. DVT prophylaxis: SCDs. Avoid chemical prophylaxis secondary to GI bleed. Discharge Planning Awaiting SNF placement. Case management assisting with discharge planning. No accepting facility at this time. Jaguar Carranza MD Feb 24, 2016 11:22
[2016-02-24 11:56] VITALS: BP 117/63; PULSE 66; RESP 19; TEMP 97.7; O2SAT 95
[2016-02-24 17:36] VITALS: BP 109/62; PULSE 71; RESP 19; TEMP 96.9; O2SAT 95
[2016-02-24] MEDS: MIRTAZAPINE 15 MG TAB PEG SCH (19:21)
[2016-02-24 20:00] VITALS: BP 105/61; PULSE 71; RESP 18; TEMP 97.6; O2SAT 96
[2016-02-25] VITALS: BP 100/58; PULSE 68; RESP 18; TEMP 97; O2SAT 98
[2016-02-25] MEDS: MIDODRINE 5 MG TAB PO SCH ×3 (04:30→15:53)
[2016-02-25] MEDS: SODIUM CHLORIDE 0.9% FLUSH 5 ML FLUSH FLUSH SCH ×2 (07:46→20:17)
[2016-02-25] MEDS: PANTOPRAZOLE SOD 40 MG DELAYED RELEASE TAB PO SCH (07:46)
[2016-02-25] MEDS: ALLOPURINOL 100 MG TAB PEG SCH (07:46)
[2016-02-25] MEDS: FAMOTIDINE 20 MG TAB PEG SCH ×2 (07:46→20:17)
[2016-02-25] MEDS: MUPIROCIN 2% OINT 22 GM TUBE TOPICAL SCH ×2 (07:47→20:22)
[2016-02-25 08:00] VITALS: BP 108/57; PULSE 72; RESP 18; TEMP 97.6; O2SAT 94
--- NOTE | 2016-02-25 11:11 | HHI.PR ---
Subjective Remarks No complaints at this time. Denies chest pain, dyspnea. Objective Vitals Vital Signs Date Time Temp Pulse Resp B/P Pulse Ox O2 Delivery O2 Flow Rate FiO2 02/25/16 08:00 97.6 72 18 108/57 94 02/25/16 00:00 97.0 68 18 100/58 98 02/24/16 20:00 97.6 71 18 105/61 96 02/24/16 17:36 96.9 71 19 109/62 95 02/24/16 11:56 97.7 66 19 117/63 95 I/O 02/24/16 02/24/16 02/24/16 02/25/16 02/25/16 02/25/16 06:59 14:59 22:59 06:59 14:59 22:59 Intake Total 787 ml 402 ml 532 ml 922 ml Output Total 300 ml 500 ml 450 ml 300 ml Balance 487 ml -98 ml 82 ml 622 ml Intake Oral 0 ml 0 ml 240 ml IV Total 0 ml 0 ml Tube Feeding 387 ml 402 ml 332 ml 482 ml Tube Irrigant 200 ml 200 ml Other 400 ml Output Urine Total 300 ml 500 ml 450 ml 300 ml # Bowel Movements 1 1 2 Imaging Last Impressions Abdomen X-Ray 01/30/16 0000 Signed Impressions: Service Date/Time: Saturday, January 30, 2016 14:17 - CONCLUSION: Satisfactory PEG tube positioning Mikael Valladares MD Abdomen/Pelvis CT 01/20/16 0000 Signed Impressions: Service Date/Time: Wednesday, January 20, 2016 07:16 - CONCLUSION: 1. Mild obstructive uropathy on the right without visualization of radiopaque calculus. The tip of the suprapubic catheter is wedged in the region of the right UVJ and may be causing the obstruction. Recommend repositioning of the suprapubic catheter. 2. Cholelithiasis. 3. Renal low densities bilaterally likely related to cyst. 4. Percutaneous gastrostomy tube. Dayday Edmonds MD Objective Remarks General: Elderly male in no acute distress. Heart: Regular rate and rhythm. No murmur. Lungs: Clear to auscultation bilaterally. No wheezes, rales, or rhonchi. Breathing is nonlabored. Abdomen: Soft, nontender, nondistended. PEG tube in place. Extremities: No lower extremity edema. Psych: Alert, answers questions appropriately. Procedures None Urinary Catheter: No Vascular Central Line Catheter: No A/P Problem List: (1) GI bleed ICD Code: K92.2 Status: Resolved (2) Essential tremor ICD Code: G25.0 Status: Chronic (3) Dementia ICD Code: F03.90 Status: Chronic (4) Parkinson disease ICD Code: G20 Status: Chronic (5) Hypotension ICD Code: I95.9 Status: Resolved (6) Loose stools ICD Code: R19.5 Status: Resolved Assessment and Plan Reviewed/updated 02/25/16. Suprapubic catheter changed yesterday. Otherwise no evidence reported by nursing. 1. Upper GI bleed: Resolved. H&H are stable. GI signed off. Continue PPI. 2. Hypotension: Blood pressure stable. Continue Midodrine. Continue fluid flushes via PEG tube to avoid dehydration. 3. Loose stools: Resolved. C. difficile negative. Stool culture and O&P negative. Continue Lactinex. 4. Stage I decubitus ulcer, sacral skin tear: Continue wound care. 5. Parkinson's disease: Patient has dementia and resting tremor. Chronic, stable. 6. Mood disorder: Stable on Remeron. 7. Mild obstructive uropathy: Appreciate urology recommendations. Suprapubic catheter in place, last changed 02/24/16. To be changed monthly. 8. UTI: Urine culture positive for Proteus mirabilis and GBS. Patient has finished a complete course of antibiotics. 9. Protein calorie malnutrition: Continue tube feeds. On Jevity 1.5 at 60 ml/h. 10. Weakness: Continue PT. 11. DVT prophylaxis: SCDs. Avoid chemical prophylaxis secondary to GI bleed. Discharge Planning Awaiting SNF placement. Case management assisting with discharge planning. No accepting facility at this time. Jaguar Carranza MD Feb 25, 2016 11:11
[2016-02-25 12:00] VITALS: BP 108/60; PULSE 67; RESP 17; TEMP 96.8; O2SAT 96
[2016-02-25 16:00] VITALS: BP 114/61; PULSE 70; RESP 20; TEMP 98.2; O2SAT 96
[2016-02-25 20:00] VITALS: BP 105/62; PULSE 79; RESP 18; TEMP 97.5; O2SAT 95
[2016-02-25] MEDS: MIRTAZAPINE 15 MG TAB PEG SCH (20:17)
[2016-02-26] VITALS: BP 105/63; PULSE 73; RESP 18; TEMP 96.3; O2SAT 94
[2016-02-26] MEDS: MIDODRINE 5 MG TAB PO SCH ×3 (05:46→18:07)
[2016-02-26 08:17] VITALS: BP 117/78; PULSE 80; RESP 19; TEMP 97.4; O2SAT 96
[2016-02-26] MEDS: FAMOTIDINE 20 MG TAB PEG SCH ×2 (08:40→21:00)
[2016-02-26] MEDS: PANTOPRAZOLE SOD 40 MG DELAYED RELEASE TAB PO SCH (08:40)
[2016-02-26] MEDS: SODIUM CHLORIDE 0.9% FLUSH 5 ML FLUSH FLUSH SCH ×2 (08:40→21:00)
[2016-02-26] MEDS: ALLOPURINOL 100 MG TAB PEG SCH (08:40)
[2016-02-26] MEDS: MUPIROCIN 2% OINT 22 GM TUBE TOPICAL SCH ×2 (08:41→21:00)
[2016-02-26 11:55] VITALS: BP 109/59; PULSE 70; RESP 19; TEMP 98; O2SAT 96
--- NOTE | 2016-02-26 13:38 | HHI.PR ---
Subjective Remarks No complaints at this time. Objective Vitals Vital Signs Date Time Temp Pulse Resp B/P Pulse Ox O2 Delivery O2 Flow Rate FiO2 02/26/16 11:55 98.0 70 19 109/59 96 02/26/16 08:17 97.4 80 19 117/78 96 02/26/16 00:00 96.3 73 18 105/63 94 02/25/16 20:00 97.5 79 18 105/62 95 02/25/16 16:00 98.2 70 20 114/61 96 I/O 02/25/16 02/25/16 02/25/16 02/26/16 02/26/16 02/26/16 07:00 15:00 23:00 07:00 15:00 23:00 Intake Total 922 ml 430 ml 586 ml 691 ml 0 ml Output Total 300 ml 1050 ml 300 ml 1000 ml Balance 622 ml -620 ml 286 ml -309 ml 0 ml Intake Oral 240 ml 0 ml 0 ml 0 ml IV Total 0 ml 0 ml 0 ml Tube Feeding 482 ml 430 ml 386 ml 491 ml Tube Irrigant 200 ml 200 ml 200 ml Output Urine Total 300 ml 1050 ml 300 ml 1000 ml Tube Feeding Residual Discard 0 ml # Bowel Movements 1 1 Imaging Last Impressions Abdomen X-Ray 01/30/16 0000 Signed Impressions: Service Date/Time: Saturday, January 30, 2016 14:17 - CONCLUSION: Satisfactory PEG tube positioning Mikael Valladares MD Abdomen/Pelvis CT 01/20/16 0000 Signed Impressions: Service Date/Time: Wednesday, January 20, 2016 07:16 - CONCLUSION: 1. Mild obstructive uropathy on the right without visualization of radiopaque calculus. The tip of the suprapubic catheter is wedged in the region of the right UVJ and may be causing the obstruction. Recommend repositioning of the suprapubic catheter. 2. Cholelithiasis. 3. Renal low densities bilaterally likely related to cyst. 4. Percutaneous gastrostomy tube. Dayday Edmonds MD Objective Remarks General: Elderly male in no acute distress. Heart: Regular rate and rhythm. No murmur. Lungs: Clear to auscultation bilaterally. No wheezes, rales, or rhonchi. Breathing is nonlabored. Abdomen: Soft, nontender, nondistended. PEG tube in place. Extremities: No lower extremity edema. Psych: Alert, answers questions appropriately. Procedures None Urinary Catheter: Yes Assessment to: Continue Soto insert reason: Obstruction/Retention Vascular Central Line Catheter: No A/P Problem List: (1) GI bleed ICD Code: K92.2 Status: Resolved (2) Essential tremor ICD Code: G25.0 Status: Chronic (3) Dementia ICD Code: F03.90 Status: Chronic (4) Parkinson disease ICD Code: G20 Status: Chronic (5) Hypotension ICD Code: I95.9 Status: Resolved (6) Loose stools ICD Code: R19.5 Status: Resolved Assessment and Plan Reviewed/updated 02/26/16. No change. 1. Upper GI bleed: Resolved. H&H are stable. GI signed off. Continue PPI. 2. Hypotension: Blood pressure stable. Continue Midodrine. Continue fluid flushes via PEG tube to avoid dehydration. 3. Loose stools: Resolved. C. difficile negative. Stool culture and O&P negative. Continue Lactinex. 4. Stage I decubitus ulcer, sacral skin tear: Continue wound care. 5. Parkinson's disease: Patient has dementia and resting tremor. Chronic, stable. 6. Mood disorder: Stable on Remeron. 7. Mild obstructive uropathy: Appreciate urology recommendations. Suprapubic catheter in place, last changed 02/24/16. To be changed monthly. 8. UTI: Urine culture positive for Proteus mirabilis and GBS. Patient has completed course of antibiotics. 9. Protein calorie malnutrition: Continue tube feeds. On Jevity 1.5 at 60 ml/h. 10. Weakness: Continue PT. 11. DVT prophylaxis: SCDs. Avoid chemical prophylaxis secondary to GI bleed. Discharge Planning Awaiting SNF placement. Case management assisting with discharge planning. No accepting facility at this time. Jaguar Carranza MD Feb 26, 2016 13:38
[2016-02-26 17:20] VITALS: BP 125/67; PULSE 66; RESP 20; TEMP 96.9; O2SAT 96
[2016-02-26 20:30] VITALS: BP 141/75; PULSE 69; RESP 18; TEMP 98.1; O2SAT 94
[2016-02-26] MEDS: MIRTAZAPINE 15 MG TAB PEG SCH (21:00)
[2016-02-27] VITALS: BP 148/81; PULSE 67; RESP 18; TEMP 97.7; O2SAT 95
[2016-02-27] MEDS: MIDODRINE 5 MG TAB PO SCH ×3 (06:38→15:58)
[2016-02-27 08:00] VITALS: BP_SYST 101; BP_SYST 108; BP_DIAS 55; BP_DIAS 58; PULSE 70; PULSE 79; RESP 18; TEMP 97; O2SAT 96
[2016-02-27] MEDS: PANTOPRAZOLE SOD 40 MG DELAYED RELEASE TAB PO SCH (08:55)
[2016-02-27] MEDS: FAMOTIDINE 20 MG TAB PEG SCH (08:55)
[2016-02-27] MEDS: ALLOPURINOL 100 MG TAB PEG SCH (08:55)
[2016-02-27] MEDS: SODIUM CHLORIDE 0.9% FLUSH 5 ML FLUSH FLUSH SCH (09:00)
[2016-02-27] MEDS: MUPIROCIN 2% OINT 22 GM TUBE TOPICAL SCH ×2 (09:00→22:52)
--- NOTE | 2016-02-27 11:29 | HHI.PR ---
Subjective Remarks 76 year-old male with a history of dementia, Parkinson disease was brought to the emergency department for evaluation of GI bleed per EMR record. Patient is unable to communicate. Information indicated the patient does have a G-tube and [facility] and was brought to the emergency department for evaluation. Patient was admitted the hospital with GI consultation. GI evaluated the patient and indicated that since there is no signs of any active bleeding they signed off. Patient is discharge planning difficulties. As indicated by case management that the patient cannot be discharged to long-term facility because there is outstanding balance owed. senior project manager engineering indicates that the son is trying to take care of the matter with attorneys, Court system. At the present time there is no discharge planning because there is no payor source for patient to go to a nursing facility. Hence, the patient was transferred to [place] for long-term care. Patient seen and examined today. Patient not indicate any new complaints. No change in clinical status. Objective Vitals Vital Signs Date Time Temp Pulse Resp B/P Pulse Ox O2 Delivery O2 Flow Rate FiO2 02/27/16 08:00 97.0 70 18 108/58 96 02/27/16 00:00 97.7 67 18 148/81 95 02/26/16 20:30 98.1 69 18 141/75 94 02/26/16 17:20 96.9 66 20 125/67 96 02/26/16 11:55 98.0 70 19 109/59 96 I/O 02/26/16 02/26/16 02/26/16 02/27/16 02/27/16 02/27/16 07:00 15:00 23:00 07:00 15:00 23:00 Intake Total 691 ml 0 ml 540 ml 530 ml Output Total 1000 ml 650 ml 800.0 ml 800 ml Balance -309 ml -650 ml -260.0 ml -270 ml Intake Oral 0 ml 0 ml 0 ml IV Total 0 ml Tube Feeding 491 ml 420 ml 470 ml Tube Irrigant 200 ml Other 120 ml 60 ml Output Urine Total 1000 ml 650 ml 800 ml 800 ml Tube Feeding Residual Discard 0 ml # Bowel Movements 2 2 Objective Remarks GENERAL: Well-developed, well-nourished, in no acute distress. alert HEENT: Head is normocephalic without any lesions or masses noted. Facial features are symmetric. Eyes: Extraocular muscles are intact. Conjunctivae were clear. NECK: Supple without any masses. Trachea midline no deviation. No JVD, no bruits are appreciated CARDIAC: Regular rhythm, regular rate. S1/S2 are heard. No murmurs gallops or rubs. LUNGS: Clear to auscultation bilaterally. No wheeze, rhonchi or rales. No use of accessory muscles on inspiration or expiration. ABDOMEN: Soft, nontender. Nondistended. Bowel sounds heard in all 4 quadrants. No organomegaly or masses. Negative rebound, negative guarding, suprapubic catheter in place, PEG tube noted EXTREMITIES: No edema, pulses are equal bilaterally. No cyanosis or clubbing NEUROLOGY: Mood and affect appear appropriate. Cranial nerves II through XII grossly intact. Moving all extremities Procedures None Urinary Catheter: Yes (suprapubic catheter) Assessment to: Continue Soto insert reason: Prolonged Immobilization Vascular Central Line Catheter: No A/P Assessment and Plan Upper GI bleed: Resolved. No active bleeding witnessed or observed in the hospital Hemoglobin has remained stable during his stay in the hospital GI was consulted and has signed off due to no GI bleed. Continue PPI. Hypotension with episodes of hypertension: Blood pressure labile. Continue monitor blood pressure Continue Midodrine. Elevated BUN, stable Continue fluid flushes via PEG tube to avoid dehydration. Loose stools: Resolved. C. difficile negative. Stool culture and O&P negative. Continue Lactinex. Stage I decubitus ulcer, sacral skin tear: Continue wound care. Parkinson's disease: Patient has dementia and resting tremor. Chronic, stable. Mood disorder: Stable Continue Remeron. Mild obstructive uropathy: Resolved Appreciate urology recommendations. Suprapubic catheter in place, last changed 02/24/16. To be changed monthly. Urinary tract infection, resolved UTI: Urine culture positive for Proteus mirabilis and GBS. Patient has completed course of antibiotics. Protein calorie malnutrition: Continue tube feeds. On Jevity 1.5 at 60 ml/h. Weakness: Continue physical therapy DVT prophylaxis: SCDs. Avoid chemical prophylaxis secondary to GI bleed. Discharge Planning Discharge planning to long-term facility once arrangements made by case management Jaguar Walker Feb 27, 2016 11:29
[2016-02-27 20:00] VITALS: BP 116/78; PULSE 77; RESP 16; TEMP 97.9; O2SAT 99
[2016-02-27] MEDS: MIRTAZAPINE 15 MG TAB PEG SCH (22:51)
[2016-02-28 06:08] VITALS: BP 129/84; PULSE 83; RESP 18; TEMP 96.4; O2SAT 97
[2016-02-28] MEDS: MIDODRINE 5 MG TAB PO SCH ×3 (06:13→17:09)
[2016-02-28 08:00] VITALS: BP 104/66; PULSE 63; RESP 18; TEMP 97.8; O2SAT 99
--- NOTE | 2016-02-28 08:55 | HHI.PR ---
Subjective Remarks Patient seen and examined today. Patient not indicate any new complaints. Awaiting case management for discharge planning Objective Vitals Vital Signs Date Time Temp Pulse Resp B/P Pulse Ox O2 Delivery O2 Flow Rate FiO2 02/28/16 08:00 97.8 63 18 104/66 99 Automatic Cuff 02/28/16 06:08 96.4 83 18 129/84 97 02/27/16 20:00 97.9 77 16 116/78 99 I/O 02/27/16 02/27/16 02/27/16 02/28/16 02/28/16 02/28/16 07:00 15:00 23:00 07:00 15:00 23:00 Intake Total 530 ml 860 ml Output Total 800 ml 500 ml 600 ml Balance -270 ml -500 ml 260 ml Intake Oral 0 ml 0 ml Tube Feeding 470 ml 660 ml Tube Irrigant 200 ml Other 60 ml Output Urine Total 800 ml 500 ml 600 ml # Bowel Movements 2 1 1 Objective Remarks GENERAL: Well-developed, well-nourished, in no acute distress. alert HEENT: Head is normocephalic without any lesions or masses noted. Facial features are symmetric. Eyes: Extraocular muscles are intact. Conjunctivae were clear. NECK: Supple without any masses. Trachea midline no deviation. No JVD, no bruits are appreciated CARDIAC: Regular rhythm, regular rate. S1/S2 are heard. No murmurs gallops or rubs. LUNGS: Clear to auscultation bilaterally. No wheeze, rhonchi or rales. No use of accessory muscles on inspiration or expiration. ABDOMEN: Soft, nontender. Nondistended. Bowel sounds heard in all 4 quadrants. No organomegaly or masses. Negative rebound, negative guarding, suprapubic catheter in place, PEG tube noted EXTREMITIES: No edema, pulses are equal bilaterally. No cyanosis or clubbing NEUROLOGY: Mood and affect appear appropriate. Cranial nerves II through XII grossly intact. Moving all extremities Procedures None Urinary Catheter: Yes (suprapubic catheter) Assessment to: Continue Soto insert reason: Prolonged Immobilization Vascular Central Line Catheter: No A/P Assessment and Plan Upper GI bleed: Resolved. No active bleeding witnessed or observed in the hospital Hemoglobin has remained stable during his stay in the hospital GI was consulted and has signed off due to no GI bleed. Continue PPI. Hypotension with episodes of hypertension: Blood pressure labile. Continue monitor blood pressure Continue Midodrine. Elevated BUN, stable Continue fluid flushes via PEG tube to avoid dehydration. Loose stools: Resolved. C. difficile negative. Stool culture and O&P negative. Continue Lactinex. Stage I decubitus ulcer, sacral skin tear: Continue wound care. Parkinson's disease: Patient has dementia and resting tremor. Chronic, stable. Mood disorder: Stable Continue Remeron. Mild obstructive uropathy: Resolved Appreciate urology recommendations. Suprapubic catheter in place, last changed 02/24/16. To be changed monthly. Urinary tract infection, resolved UTI: Urine culture positive for Proteus mirabilis and GBS. Patient has completed course of antibiotics. Protein calorie malnutrition: Continue tube feeds. On Jevity 1.5 at 60 ml/h. Weakness: Continue physical therapy DVT prophylaxis: SCDs. Avoid chemical prophylaxis secondary to GI bleed. Discharge Planning Discharge planning to assisted facility once arrangements made by case management Jaguar Walker Feb 28, 2016 08:55
[2016-02-28] MEDS: ALLOPURINOL 100 MG TAB PEG SCH (09:02)
[2016-02-28] MEDS: MUPIROCIN 2% OINT 22 GM TUBE TOPICAL SCH ×2 (09:02→20:23)
[2016-02-28] MEDS: LANSOPRAZOLE SOLUTAB 30 MG TAB PEG SCH (09:02)
[2016-02-28 20:00] VITALS: BP 114/74; PULSE 72; RESP 20; TEMP 96.7; O2SAT 98
[2016-02-28] MEDS: MIRTAZAPINE 15 MG TAB PEG SCH (20:23)
[2016-02-29] MEDS: MIDODRINE 5 MG TAB PO SCH ×3 (05:51→18:28)
[2016-02-29 08:00] VITALS: BP_SYST 126; BP_SYST 146; BP_DIAS 106; BP_DIAS 58; PULSE 69; PULSE 90; RESP 18; TEMP 97.1; TEMP 98.2; O2SAT 95; O2SAT 98
[2016-02-29] MEDS: LANSOPRAZOLE SOLUTAB 30 MG TAB PEG SCH (08:28)
[2016-02-29] MEDS: ALLOPURINOL 100 MG TAB PEG SCH (08:28)
[2016-02-29] MEDS: MUPIROCIN 2% OINT 22 GM TUBE TOPICAL SCH ×2 (08:36→21:13)
--- NOTE | 2016-02-29 10:15 | HHI.PR ---
Subjective Remarks Patient seen and examined today. Patient denies any new complaints. Awaiting case management for discharge planning Objective Vitals Vital Signs Date Time Temp Pulse Resp B/P Pulse Ox O2 Delivery O2 Flow Rate FiO2 02/29/16 08:00 97.1 69 18 126/58 95 02/28/16 20:00 96.7 72 20 114/74 98 I/O 02/28/16 02/28/16 02/28/16 02/29/16 02/29/16 02/29/16 07:00 15:00 23:00 07:00 15:00 23:00 Intake Total 860 ml 450 ml 0 ml 0 ml Output Total 600 ml 375 ml 700 ml 200 ml Balance 260 ml 75 ml -700 ml -200 ml Intake Oral 0 ml 0 ml 0 ml 0 ml Tube Feeding 660 ml 450 ml Tube Irrigant 200 ml Output Urine Total 600 ml 375 ml 700 ml 200 ml # Bowel Movements 1 1 Objective Remarks GENERAL: Well-developed, well-nourished, in no acute distress. alert HEENT: Head is normocephalic without any lesions or masses noted. Facial features are symmetric. Eyes: Extraocular muscles are intact. Conjunctivae were clear. NECK: Supple without any masses. Trachea midline no deviation. No JVD, no bruits are appreciated CARDIAC: Regular rhythm, regular rate. S1/S2 are heard. No murmurs gallops or rubs. LUNGS: Clear to auscultation bilaterally. No wheeze, rhonchi or rales. No use of accessory muscles on inspiration or expiration. ABDOMEN: Soft, nontender. Nondistended. Bowel sounds heard in all 4 quadrants. No organomegaly or masses. Negative rebound, negative guarding, suprapubic catheter in place, PEG tube noted EXTREMITIES: No edema, pulses are equal bilaterally. No cyanosis or clubbing NEUROLOGY: Mood and affect appear appropriate. Cranial nerves II through XII grossly intact. Moving all extremities Procedures None Urinary Catheter: Yes Assessment to: Continue Soto insert reason: Prolonged Immobilization Vascular Central Line Catheter: No A/P Assessment and Plan Upper GI bleed: Resolved. No active bleeding witnessed or observed in the hospital Hemoglobin has remained stable during his stay in the hospital GI was consulted and has signed off due to no GI bleed. Continue PPI. Hypotension with episodes of hypertension: Blood pressure labile. Continue monitor blood pressure Continue Midodrine. Elevated BUN, stable Continue fluid flushes via PEG tube to avoid dehydration. Loose stools: Resolved. C. difficile negative. Stool culture and O&P negative. Continue Lactinex. Stage I decubitus ulcer, sacral skin tear: Continue wound care. Parkinson's disease: Patient has dementia and resting tremor. Chronic, stable. Mood disorder: Stable Continue Remeron. Mild obstructive uropathy: Resolved Appreciate urology recommendations. Suprapubic catheter in place, last changed 02/24/16. To be changed monthly. Urinary tract infection, resolved UTI: Urine culture positive for Proteus mirabilis and GBS. Patient has completed course of antibiotics. Protein calorie malnutrition: Continue tube feeds. On Jevity 1.5 at 60 ml/h. Weakness: Continue physical therapy DVT prophylaxis: SCDs. Avoid chemical prophylaxis secondary to GI bleed. Discharge Planning Discharge planning to [facility] facility once arrangements made by case management Jaguar Walker Feb 29, 2016 10:15
[2016-02-29 20:11] VITALS: BP 120/68; PULSE 70; RESP 16; TEMP 96.3; O2SAT 97
[2016-02-29] MEDS: MIRTAZAPINE 15 MG TAB PEG SCH (21:13)
--- NOTE | 2016-03-01 09:08 | HHI.PR ---
Subjective Remarks Patient seen and examined today. Patient not indicate any new complaints. No change in clinical status. Nursing staff says that PEG tube is malfunctioning Objective Vitals Vital Signs Date Time Temp Pulse Resp B/P Pulse Ox O2 Delivery O2 Flow Rate FiO2 02/29/16 20:11 96.3 70 16 120/68 97 I/O 02/29/16 02/29/16 02/29/16 03/01/16 03/01/16 03/01/16 06:59 14:59 22:59 06:59 14:59 22:59 Intake Total 0 ml 947 ml 187 ml Output Total 200 ml 900 ml 500 ml Balance -200 ml 47 ml -313 ml Intake Oral 0 ml 0 ml 0 ml Tube Feeding 747 ml 187 ml Other 200 ml Output Urine Total 200 ml 900 ml 500 ml # Bowel Movements 2 2 Objective Remarks GENERAL: Well-developed, well-nourished, in no acute distress. alert HEENT: Head is normocephalic without any lesions or masses noted. Facial features are symmetric. Eyes: Extraocular muscles are intact. Conjunctivae were clear. NECK: Supple without any masses. Trachea midline no deviation. No JVD, no bruits are appreciated CARDIAC: Regular rhythm, regular rate. S1/S2 are heard. No murmurs gallops or rubs. LUNGS: Clear to auscultation bilaterally. No wheeze, rhonchi or rales. No use of accessory muscles on inspiration or expiration. ABDOMEN: Soft, nontender. Nondistended. Bowel sounds heard in all 4 quadrants. No organomegaly or masses. Negative rebound, negative guarding, suprapubic catheter in place, PEG tube noted EXTREMITIES: No edema, pulses are equal bilaterally. No cyanosis or clubbing NEUROLOGY: Mood and affect appear appropriate. Cranial nerves II through XII grossly intact. Moving all extremities Procedures None Urinary Catheter: No Vascular Central Line Catheter: No A/P Assessment and Plan Upper GI bleed: Resolved. No active bleeding witnessed or observed in the hospital Hemoglobin has remained stable during his stay in the hospital GI was consulted and has signed off due to no GI bleed. Continue PPI. Hypotension with episodes of hypertension: Blood pressure labile. Continue monitor blood pressure Continue Midodrine. Elevated BUN, stable Continue fluid flushes via PEG tube to avoid dehydration. Loose stools: Resolved. C. difficile negative. Stool culture and O&P negative. Continue Lactinex. Stage I decubitus ulcer, sacral skin tear: Continue wound care. Parkinson's disease: Patient has dementia and resting tremor. Chronic, stable. Mood disorder: Stable Continue Remeron. Mild obstructive uropathy: Resolved Appreciate urology recommendations. Suprapubic catheter in place, last changed 02/24/16. To be changed monthly. Urinary tract infection, resolved UTI: Urine culture positive for Proteus mirabilis and GBS. Patient has completed course of antibiotics. Protein calorie malnutrition: Continue tube feeds. On Jevity 1.5 at 60 ml/h. Weakness: Continue physical therapy DVT prophylaxis: SCDs. Avoid chemical prophylaxis secondary to GI bleed. Discharge Planning Discharge planning to [facility] facility once arrangements made by case management Jaguar Walker Mar 01, 2016 09:08
[2016-03-01] MEDS: LANSOPRAZOLE SOLUTAB 30 MG TAB PEG SCH (10:35)
[2016-03-01] MEDS: MIDODRINE 5 MG TAB PO SCH ×3 (10:35→17:00)
[2016-03-01] MEDS: MUPIROCIN 2% OINT 22 GM TUBE TOPICAL SCH ×2 (10:36→20:30)
[2016-03-01] MEDS: ALLOPURINOL 100 MG TAB PEG SCH (10:36)
[2016-03-01 11:43] VITALS: BP 106/71; PULSE 78; RESP 18; TEMP 97.6
[2016-03-01 20:00] VITALS: BP 118/69; PULSE 68; RESP 18; TEMP 97.4; O2SAT 98
[2016-03-01] MEDS: MIRTAZAPINE 15 MG TAB PEG SCH (20:29)
[2016-03-02] MEDS: MIDODRINE 5 MG TAB PO SCH ×3 (06:17→18:31)
[2016-03-02 08:04] VITALS: BP 136/87; PULSE 86; RESP 20; TEMP 96.4; O2SAT 97
--- NOTE | 2016-03-02 08:35 | HHI.PR ---
Subjective Remarks Patient seen and examined today. Patient not indicate any new complaints. No change in clinical status. Objective Vitals Vital Signs Date Time Temp Pulse Resp B/P Pulse Ox O2 Delivery O2 Flow Rate FiO2 03/01/16 20:00 97.4 68 18 118/69 98 03/01/16 11:43 97.6 78 18 106/71 I/O 03/01/16 03/01/16 03/01/16 03/02/16 03/02/16 03/02/16 07:00 15:00 23:00 07:00 15:00 23:00 Intake Total 187 ml 400 ml Output Total 500 ml 250 ml 300 ml Balance -313 ml 400 ml -250 ml -300 ml Intake Oral 0 ml Tube Feeding 187 ml 400 ml Output Urine Total 500 ml 250 ml 300 ml # Bowel Movements 2 1 Objective Remarks GENERAL: Well-developed, well-nourished, in no acute distress. alert HEENT: Head is normocephalic without any lesions or masses noted. Facial features are symmetric. Eyes: Extraocular muscles are intact. Conjunctivae were clear. NECK: Supple without any masses. Trachea midline no deviation. No JVD, no bruits are appreciated CARDIAC: Regular rhythm, regular rate. S1/S2 are heard. No murmurs gallops or rubs. LUNGS: Clear to auscultation bilaterally. No wheeze, rhonchi or rales. No use of accessory muscles on inspiration or expiration. ABDOMEN: Soft, nontender. Nondistended. Bowel sounds heard in all 4 quadrants. No organomegaly or masses. Negative rebound, negative guarding, suprapubic catheter in place, PEG tube noted EXTREMITIES: No edema, pulses are equal bilaterally. No cyanosis or clubbing NEUROLOGY: Mood and affect appear appropriate. Cranial nerves II through XII grossly intact. Moving all extremities Procedures None Urinary Catheter: Yes (suprapubic catheter) Assessment to: Continue Soto insert reason: Prolonged Immobilization Vascular Central Line Catheter: No A/P Assessment and Plan Upper GI bleed: Resolved. No active bleeding witnessed or observed in the hospital Hemoglobin has remained stable during his stay in the hospital GI was consulted and has signed off due to no GI bleed. Continue PPI. Hypotension with episodes of hypertension: Blood pressure labile. Continue monitor blood pressure Continue Midodrine. Elevated BUN, stable Continue fluid flushes via PEG tube to avoid dehydration. Loose stools: Resolved. C. difficile negative. Stool culture and O&P negative. Continue Lactinex. Stage I decubitus ulcer, sacral skin tear: Continue wound care. Parkinson's disease: Patient has dementia and resting tremor. Chronic, stable. Mood disorder: Stable Continue Remeron. Mild obstructive uropathy: Resolved Appreciate urology recommendations. Suprapubic catheter in place, last changed 02/24/16. To be changed monthly. Urinary tract infection, resolved UTI: Urine culture positive for Proteus mirabilis and GBS. Patient has completed course of antibiotics. Protein calorie malnutrition: Continue tube feeds. On Jevity 1.5 at 60 ml/h. Weakness: Continue physical therapy Nursing staff to get patient up out of bed at least 3 times daily DVT prophylaxis: SCDs. Avoid chemical prophylaxis secondary to GI bleed. Discharge Planning Discharge planning to long term facility once arrangements made by case management Jaguar Walker Mar 02, 2016 08:35
[2016-03-02] MEDS: ALLOPURINOL 100 MG TAB PEG SCH (08:42)
[2016-03-02] MEDS: MUPIROCIN 2% OINT 22 GM TUBE TOPICAL SCH ×2 (08:42→20:36)
[2016-03-02] MEDS: LANSOPRAZOLE SOLUTAB 30 MG TAB PEG SCH (08:42)
[2016-03-02 20:00] VITALS: BP 108/79; PULSE 77; RESP 20; TEMP 97.2; O2SAT 96
[2016-03-02] MEDS: MIRTAZAPINE 15 MG TAB PEG SCH (20:36)
[2016-03-03] MEDS: MIDODRINE 5 MG TAB PO SCH ×3 (06:29→17:09)
[2016-03-03 08:04] VITALS: BP 133/87; PULSE 82; RESP 22; TEMP 97.8; O2SAT 97
--- NOTE | 2016-03-03 08:19 | HHI.PR ---
Subjective Remarks Patient seen and examined today. Patient denies any new complaints. No change in clinical status. Patient PEG tube did clog again. Nurse was able to unclog it. Objective Vitals Vital Signs Date Time Temp Pulse Resp B/P Pulse Ox O2 Delivery O2 Flow Rate FiO2 03/02/16 20:00 97.2 77 20 108/79 96 I/O 03/02/16 03/02/16 03/02/16 03/03/16 03/03/16 03/03/16 07:00 15:00 23:00 07:00 15:00 23:00 Intake Total 540 ml 637 ml 694 ml 180 ml Output Total 300 ml 300 ml Balance -300 ml 240 ml 637 ml 694 ml 180 ml Tube Feeding 440 ml 457 ml 514 ml Tube Irrigant 180 ml 180 ml 180 ml Other 100 ml Output Urine Total 300 ml 300 ml # Bowel Movements 1 2 Objective Remarks GENERAL: Well-developed, well-nourished, in no acute distress. alert HEENT: Head is normocephalic without any lesions or masses noted. Facial features are symmetric. Eyes: Extraocular muscles are intact. Conjunctivae were clear. NECK: Supple without any masses. Trachea midline no deviation. No JVD, no bruits are appreciated CARDIAC: Regular rhythm, regular rate. S1/S2 are heard. No murmurs gallops or rubs. LUNGS: Clear to auscultation bilaterally. No wheeze, rhonchi or rales. No use of accessory muscles on inspiration or expiration. ABDOMEN: Soft, nontender. Nondistended. Bowel sounds heard in all 4 quadrants. No organomegaly or masses. Negative rebound, negative guarding, suprapubic catheter in place, PEG tube noted EXTREMITIES: No edema, pulses are equal bilaterally. No cyanosis or clubbing NEUROLOGY: Mood and affect appear appropriate. Cranial nerves II through XII grossly intact. Moving all extremities Procedures None Urinary Catheter: No Vascular Central Line Catheter: No A/P Assessment and Plan Upper GI bleed: Resolved. No active bleeding witnessed or observed in the hospital Hemoglobin has remained stable during his stay in the hospital GI was consulted and has signed off due to no GI bleed. Continue PPI. Hypotension with episodes of hypertension: Blood pressure labile. Continue monitor blood pressure Continue Midodrine. Elevated BUN, stable Continue fluid flushes via PEG tube to avoid dehydration. Loose stools: Resolved. C. difficile negative. Stool culture and O&P negative. Continue Lactinex. Stage I decubitus ulcer, sacral skin tear: Continue wound care. Parkinson's disease: Patient has dementia and resting tremor. Chronic, stable. Mood disorder: Stable Continue Remeron. Mild obstructive uropathy: Resolved Appreciate urology recommendations. Suprapubic catheter in place, last changed 02/24/16. To be changed monthly. Urinary tract infection, resolved UTI: Urine culture positive for Proteus mirabilis and GBS. Patient has completed course of antibiotics. Protein calorie malnutrition: Continue tube feeds. On Jevity 1.5 at 60 ml/h. Consult dietary to evaluate for bolus feeding Weakness: Continue physical therapy Nursing staff to get patient up out of bed at least 3 times daily DVT prophylaxis: SCDs. Avoid chemical prophylaxis secondary to GI bleed. Discharge Planning Discharge planning to prison facility once arrangements made by case management Jaguar Walker Mar 03, 2016 08:19
[2016-03-03] MEDS: MUPIROCIN 2% OINT 22 GM TUBE TOPICAL SCH ×2 (09:00→21:12)
[2016-03-03] MEDS: LANSOPRAZOLE SOLUTAB 30 MG TAB PEG SCH (09:36)
[2016-03-03] MEDS: ALLOPURINOL 100 MG TAB PEG SCH (09:36)
[2016-03-03 20:00] VITALS: BP 111/63; PULSE 72; RESP 20; TEMP 97.6; O2SAT 94
[2016-03-03] MEDS: MIRTAZAPINE 15 MG TAB PEG SCH (21:12)
[2016-03-04] MEDS: MIDODRINE 5 MG TAB PO SCH ×3 (05:49→17:51)
[2016-03-04 08:00] VITALS: BP 146/81; PULSE 82; RESP 19; TEMP 97.6; O2SAT 95
--- NOTE | 2016-03-04 08:19 | HHI.PR ---
Subjective Remarks Patient seen and examined today. Patient does not indicate any new complaints. No change in clinical status. Objective Vitals Vital Signs Date Time Temp Pulse Resp B/P Pulse Ox O2 Delivery O2 Flow Rate FiO2 03/03/16 20:00 97.6 72 20 111/63 94 Manual Cuff/Palpation I/O 03/03/16 03/03/16 03/03/16 03/04/16 03/04/16 03/04/16 07:00 15:00 23:00 07:00 15:00 23:00 Intake Total 694 ml 180 ml 1080 ml 875 ml Output Total 800 ml 900 ml 275 ml Balance 694 ml -620 ml 180 ml 600 ml Intake Oral 0 ml 0 ml Tube Feeding 514 ml 900 ml 515 ml Tube Irrigant 180 ml 180 ml 180 ml 360 ml Output Urine Total 800 ml 900 ml 275 ml # Bowel Movements 2 4 1 0 Objective Remarks GENERAL: Well-developed, well-nourished, in no acute distress. alert HEENT: Head is normocephalic without any lesions or masses noted. Facial features are symmetric. Eyes: Extraocular muscles are intact. Conjunctivae were clear. NECK: Supple without any masses. Trachea midline no deviation. No JVD, no bruits are appreciated CARDIAC: Regular rhythm, regular rate. S1/S2 are heard. No murmurs gallops or rubs. LUNGS: Clear to auscultation bilaterally. No wheeze, rhonchi or rales. No use of accessory muscles on inspiration or expiration. ABDOMEN: Soft, nontender. Nondistended. Bowel sounds heard in all 4 quadrants. No organomegaly or masses. Negative rebound, negative guarding, suprapubic catheter in place, PEG tube noted EXTREMITIES: No edema, pulses are equal bilaterally. No cyanosis or clubbing NEUROLOGY: Mood and affect appear appropriate. Cranial nerves II through XII grossly intact. Moving all extremities Procedures None Urinary Catheter: Yes (suprapubic catheter) Soto insert reason: Prolonged Immobilization Vascular Central Line Catheter: No A/P Assessment and Plan Upper GI bleed: Resolved. No active bleeding witnessed or observed in the hospital Hemoglobin has remained stable during his stay in the hospital GI was consulted and has signed off due to no GI bleed. Continue PPI. Hypotension with episodes of hypertension: Stable Blood pressure labile. Continue monitor blood pressure Continue Midodrine. Elevated BUN, stable Continue fluid flushes via PEG tube to avoid dehydration. Loose stools: Resolved. C. difficile negative. Stool culture and O&P negative. Continue Lactinex. Stage I decubitus ulcer, sacral skin tear: Continue wound care. Parkinson's disease: Patient has dementia and resting tremor. Chronic, stable. Mood disorder: Stable Continue Remeron. Mild obstructive uropathy: Resolved Appreciate urology recommendations. Suprapubic catheter in place, last changed 02/24/16. To be changed monthly. Urinary tract infection, resolved UTI: Urine culture positive for Proteus mirabilis and GBS. Patient has completed course of antibiotics. Protein calorie malnutrition: Continue tube feeds. On Jevity 1.5 at 60 ml/h. discontinue continuous tube feedings and start bolus feedings as recommended by dietitian Consulted dietitian who indicated that patient may be converted to bolus feeding and recommended Jevity 1.5, 6 cans per day. 1.5 cans that 0800 and 2000 , 1 can at 1100, 1400, 1700 Weakness: Continue physical therapy Nursing staff to get patient up out of bed at least 3 times daily DVT prophylaxis: SCDs. Avoid chemical prophylaxis secondary to GI bleed. 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 HE STATED HE WAS GOING TO MEET AN INDIVIDUAL AT [facility] R/T MEDICAID IN AM. I EXPLAINED TO HIM THE IMPORTANCE OF BEING PROACTIVE WITH ASSISTING GETTING DAD PLACED AND HE WORKING WITH [employer].. HE STATED DAD HAS NO MONEY JUST THIS PROPERTY AND IT IS FOR SALE AND HAS BEEN FOR A WHILE. I ASKED HIM FOR A F/U ON HIS MEETING WITH [facility] ON FRIDAY, I PLAN TO CALL HIM MYSELF TO F/U. CECILE JOAQUIN LPN/Jaguar Rm Mar 04, 2016 08:19
[2016-03-04] MEDS: LANSOPRAZOLE SOLUTAB 30 MG TAB PEG SCH (09:58)
[2016-03-04] MEDS: ALLOPURINOL 100 MG TAB PEG SCH (09:58)
[2016-03-04] MEDS: MUPIROCIN 2% OINT 22 GM TUBE TOPICAL SCH ×2 (09:58→20:29)
[2016-03-04 20:27] VITALS: BP 96/57; PULSE 78; RESP 18; TEMP 98.7; O2SAT 95
[2016-03-04] MEDS: MIRTAZAPINE 15 MG TAB PEG SCH (20:29)
[2016-03-05] MEDS: MIDODRINE 5 MG TAB PO SCH ×3 (06:23→17:00)
[2016-03-05 08:00] VITALS: BP 115/63; PULSE 72; RESP 19; TEMP 98.8; O2SAT 94
[2016-03-05] MEDS: ALLOPURINOL 100 MG TAB PEG SCH (08:54)
[2016-03-05] MEDS: LANSOPRAZOLE SOLUTAB 30 MG TAB PEG SCH (08:54)
[2016-03-05] MEDS: MUPIROCIN 2% OINT 22 GM TUBE TOPICAL SCH ×2 (08:55→20:32)
--- NOTE | 2016-03-05 10:41 | HHI.PR ---
Subjective Remarks No acute complaints. Nods his head to my questions rather than speak. Objective Vitals Vital Signs Date Time Temp Pulse Resp B/P Pulse Ox O2 Delivery O2 Flow Rate FiO2 03/05/16 08:00 98.8 72 19 115/63 94 03/04/16 20:27 98.7 78 18 96/57 95 I/O 03/04/16 03/04/16 03/04/16 03/05/16 03/05/16 03/05/16 06:59 14:59 22:59 06:59 14:59 22:59 Intake Total 875 ml 1440 ml 560 ml Output Total 275 ml 400 ml 550 ml Balance 600 ml 1440 ml -400 ml 10 ml Intake Oral 0 ml IV Total 0 ml Tube Feeding 515 ml 840 ml 360 ml Tube Irrigant 360 ml Other 600 ml 200 ml Output Urine Total 275 ml 400 ml 550 ml # Bowel Movements 0 Objective Remarks GENERAL: Disheveled male in no apparent distress. CARDIOVASCULAR: Regular rate and rhythm. RESPIRATORY: Limited anterior exam. No accessory muscle use. Clear to auscultation. Breath sounds equal bilaterally. GASTROINTESTINAL: Normoactive bowel sounds. Abdomen soft, non-tender, nondistended. NEUROLOGICAL: Awake and alert. Does not speak on exam. Nods head to answer questions. Disoriented to place, month, year. Procedures None Urinary Catheter: Yes Assessment to: Continue Soto insert reason: Obstruction/Retention Date of Insertion: Feb 24, 2016 A/P Problem List: (1) GI bleed ICD Code: K92.2 Status: Resolved (2) Essential tremor ICD Code: G25.0 Status: Chronic (3) Dementia ICD Code: F03.90 Status: Chronic (4) Parkinson disease ICD Code: G20 Status: Chronic (5) Hypotension ICD Code: I95.9 Status: Resolved (6) Loose stools ICD Code: R19.5 Status: Resolved Assessment and Plan Upper GI bleed: Resolved. No active bleeding witnessed or observed in the hospital Hemoglobin has remained stable during his stay in the hospital GI was consulted and has signed off due to no GI bleed. Continue PPI. Hypotension with episodes of hypertension: BP 96/57 last night but improved to 115/63 this morning. Blood pressure labile. Continue to monitor. Continue Midodrine. Elevated BUN, stable Continue fluid flushes via PEG tube to avoid dehydration. Loose stools: Resolved. C. difficile negative. Stool culture and O&P negative. Continue Lactinex. Stage I decubitus ulcer, sacral skin tear: Continue wound care. Parkinson's disease: Patient has dementia and resting tremor. Chronic, stable. Mood disorder: Stable Continue Remeron. Mild obstructive uropathy: Resolved Appreciate urology recommendations. Suprapubic catheter in place, last changed 02/24/16. To be changed monthly. Urinary tract infection, resolved Urine culture positive for Proteus mirabilis and GBS. Patient has completed course of antibiotics. Protein calorie malnutrition: Continue tube feeds. On Jevity 1.5 at 60 ml/h. discontinue continuous tube feedings and start bolus feedings as recommended by dietitian Consulted dietitian who indicated that patient may be converted to bolus feeding and recommended Jevity 1.5, 6 cans per day. 1.5 cans that 0800 and 2000 , 1 can at 1100, 1400, 1700 Weakness: Continue physical therapy Nursing staff to get patient up out of bed at least 3 times daily DVT prophylaxis: SCDs. Avoid chemical prophylaxis secondary to GI bleed. Discharge Planning counter manager working on long-term care placement. PT recommends rehabilitation. Madeline Ortez Mar 05, 2016 10:41
[2016-03-05 20:00] VITALS: BP 103/62; PULSE 76; RESP 18; TEMP 98.7; O2SAT 96
[2016-03-05] MEDS: MIRTAZAPINE 15 MG TAB PEG SCH (20:32)
[2016-03-06] MEDS: MIDODRINE 5 MG TAB PO SCH ×3 (06:30→17:54)
[2016-03-06] MEDS: ALLOPURINOL 100 MG TAB PEG SCH (07:50)
[2016-03-06] MEDS: LANSOPRAZOLE SOLUTAB 30 MG TAB PEG SCH (07:50)
[2016-03-06] MEDS: MUPIROCIN 2% OINT 22 GM TUBE TOPICAL SCH ×2 (07:51→21:43)
[2016-03-06 08:00] VITALS: BP 104/63; PULSE 77; RESP 19; TEMP 98; O2SAT 93
[2016-03-06 12:00] VITALS: BP 107/66; PULSE 82; RESP 20; TEMP 98; O2SAT 95
--- NOTE | 2016-03-06 15:02 | HHI.PR ---
Subjective Remarks Late entry. Patient evaluated early this morning. Follow-up for malnutrition, uropathy, Parkinson's. No acute complaints. No change in clinical status. Objective Vitals Vital Signs Date Time Temp Pulse Resp B/P Pulse Ox O2 Delivery O2 Flow Rate FiO2 03/06/16 08:00 98.0 77 19 104/63 93 03/05/16 20:00 98.7 76 18 103/62 96 I/O 03/05/16 03/05/16 03/05/16 03/06/16 03/06/16 03/06/16 07:00 15:00 23:00 07:00 15:00 23:00 Intake Total 620 ml Output Total 250 ml 350 ml 725 ml Balance -250 ml -350 ml -105 ml Tube Feeding 420 ml Tube Irrigant 200 ml Output Urine Total 250 ml 350 ml 725 ml # Voids 1 # Bowel Movements 1 Objective Remarks GENERAL: Well developed male in no apparent distress. CARDIOVASCULAR: Regular rate and rhythm. RESPIRATORY: No accessory muscle use. RR normal. GASTROINTESTINAL: Abdomen soft, non-tender, nondistended. NEUROLOGICAL: Awake and alert. PSYCHIATRIC: Nods his head to questions. He whispered an inappropriate sexual comment to me today, and that is the only thing he has actually spoken. Procedures None Urinary Catheter: Yes Assessment to: Continue Soto insert reason: Obstruction/Retention Date of Insertion: Feb 24, 2016 Vascular Central Line Catheter: No A/P Problem List: (1) GI bleed ICD Code: K92.2 Status: Resolved (2) Essential tremor ICD Code: G25.0 Status: Chronic (3) Dementia ICD Code: F03.90 Status: Chronic (4) Parkinson disease ICD Code: G20 Status: Chronic (5) Hypotension ICD Code: I95.9 Status: Resolved (6) Loose stools ICD Code: R19.5 Status: Resolved Assessment and Plan Upper GI bleed: Resolved. No active bleeding witnessed or observed in the hospital Hemoglobin has remained stable during his stay in the hospital GI was consulted and has signed off due to no GI bleed. Continue PPI. Hypotension with episodes of hypertension: BP 96/57 last night but improved to 115/63 this morning. Blood pressure labile. Continue to monitor. Continue Midodrine. Elevated BUN, stable Continue fluid flushes via PEG tube to avoid dehydration. Loose stools: Resolved. C. difficile negative. Stool culture and O&P negative. Continue Lactinex. Stage I decubitus ulcer, sacral skin tear: Continue wound care. Parkinson's disease: Patient has dementia and resting tremor. Chronic, stable. Mood disorder: Stable Continue Remeron. Mild obstructive uropathy: Resolved Appreciate urology recommendations. Suprapubic catheter in place, last changed 02/24/16. To be changed monthly. Urinary tract infection, resolved Urine culture positive for Proteus mirabilis and GBS. Patient has completed course of antibiotics. Protein calorie malnutrition: Continue tube feeds. On Jevity 1.5 at 60 ml/h. discontinue continuous tube feedings and start bolus feedings as recommended by dietitian Consulted dietitian who indicated that patient may be converted to bolus feeding and recommended Jevity 1.5, 6 cans per day. 1.5 cans that 0800 and 2000 , 1 can at 1100, 1400, 1700 Weakness: Continue physical therapy Nursing staff to get patient up out of bed at least 3 times daily DVT prophylaxis: SCDs. Avoid chemical prophylaxis secondary to GI bleed. RN later informed me that the patient had a soft bowel movement with bright red blood present. CBC, BMP, coags, and Hemoccult stool ordered now. Hemoglobin q 6 hours. Will reassess patient tomorrow and if necessary can consult GI. Discharge Planning internal control manager working on long-term care placement. PT recommends rehabilitation. Madeline Ortez Mar 06, 2016 15:02 Petey Calhoun MD Mar 06, 2016 18:10
[2016-03-06 16:00] VITALS: BP 106/61; PULSE 77; RESP 18; TEMP 97.1; O2SAT 94
[2016-03-06 18:34] LABS: AUTOMATED NEUTROPHIL # 4.5 TH/MM3 (1.8-7.7); BASOPHIL # 0.1 TH/MM3 (0-0.2); EOSINOPHIL # 0.1 TH/MM3 (0-0.4); EOSINOPHIL % 1.9 % (0.0-4.0); HEMATOCRIT 43.8 % (39.0-51.0); HEMO FLAGS DIFF FINAL; LYMPH % 34.6 % (9.0-44.0); LYMPHOCYTE # 2.7 TH/MM3 (1.0-4.8); MEAN CELL VOLUME 87.1 FL (80.0-100.0); MEAN CORPUSCULAR HEMOGLOBIN 28.5 PG (27.0-34.0); MEAN CORPUSCULAR HGB CONC 32.7 % (32.0-36.0); MONO % 5.6 % (0.0-8.0); NEUT % 56.9 % (16.0-70.0); PLATELET COUNT 194 TH/MM3 (150-450); RED BLOOD COUNT 5.02 MIL/MM3 (4.50-5.90); RED CELL DISTRIBUTION WIDTH 16.1 % (11.6-17.2); WHITE BLOOD COUNT 7.8 TH/MM3 (4.0-11.0)
[2016-03-06 18:39] LABS: POTASSIUM 4.1 MEQ/L (3.5-5.1)
[2016-03-06 18:42] LABS: BICARBONATE 29.5 MEQ/L (21.0-32.0)
[2016-03-06 18:45] LABS: APTT (PATIENT) 29.4 SEC (24.3-30.1); PROTHROMBIN TIME - PATIENT 11.1 SEC (9.8-11.6)
[2016-03-06 20:00] VITALS: BP 123/75; PULSE 79; RESP 16; TEMP 97.8; O2SAT 95
[2016-03-06] MEDS: MIRTAZAPINE 15 MG TAB PEG SCH (21:39)
--- NOTE | 2016-03-06 22:48 | RADHPO ---
EXAM DATE/TIME: 03/06/2016 22:27 [facility] COMPARISON: CT ABDOMEN & PELVIS W CONTRAST, January 20, 2016, 7:16. INDICATIONS : Abdominal pain. IV CONTRAST: 100 cc Omnipaque 350 (iohexol) IV ORAL CONTRAST: No oral contrast ingested. RADIATION DOSE: 7.16 CTDIvol (mGy) MEDICAL HISTORY : Hypertension. Gastroesophageal reflux disease. SURGICAL HISTORY : Peg tube. ENCOUNTER: Subsequent ACUITY: 2 months PAIN SCALE: 4/10 LOCATION: abdomen TECHNIQUE: Volumetric scanning of the abdomen and pelvis was performed. Using automated exposure control and ad justment of the mA and/or kV according to patient size, radiation dose was kept as low as reasonably achievable to obtain optimal diagnostic quality images. FINDINGS: Cholelithiasis is noted. Liver, spleen, pancreas, adrenal glands are unremarkable. Bilateral renal cy sts are again seen. There is no hydronephrosis. Nonobstructing left midpole calculus. Urinary bladder decompressed with wall thickening and a suprapubic catheter in place. As noted previously the tip of the catheter is in the region of the right UVJ however there is no hydronephrosis. The large stool b all in the rectum is noted with a large amount of stool throughout the colon. Atherosclerotic calcifi cations of the aorta and iliac vessels are seen. Small fat containing umbilical hernia. A percutaneou s gastrostomy tube is noted. There are degenerative changes of the spine. The right-sided hydronephro sis has resolved. Atelectatic changes at the lung bases. CONCLUSION: 1. Resolution of right sided hydronephrosis. 2. Renal cysts. 3. Bladder is decompressed and there is circumferential bladder wall thickening and intraluminal air identified. A cystitis is not excluded. 4. A large stool ball is noted within the rectum. 5. Cholelithiasis. 6. Nonobstructing left renal calculus. Speedy Noriega MD on March 06, 2016 at 22:43 Board Certified Radiologist. This report was verified electronically.
[2016-03-07 01:10] LABS: HEMATOCRIT 43.6 % (39.0-51.0); REVIEW FLAG FINAL
[2016-03-07 05:25] LABS: HEMATOCRIT 42.7 % (39.0-51.0); REVIEW FLAG FINAL
[2016-03-07] MEDS: MIDODRINE 5 MG TAB PO SCH ×3 (05:58→17:49)
[2016-03-07 07:56] LABS: POTASSIUM 4.1 MEQ/L (3.5-5.1)
[2016-03-07 07:59] LABS: BICARBONATE 29.2 MEQ/L (21.0-32.0)
[2016-03-07 08:00] VITALS: BP 113/70; PULSE 75; RESP 20; TEMP 98.1; O2SAT 94
[2016-03-07] MEDS: MUPIROCIN 2% OINT 22 GM TUBE TOPICAL SCH ×2 (09:00→21:24)
[2016-03-07] MEDS: ALLOPURINOL 100 MG TAB PEG SCH (09:06)
[2016-03-07] MEDS: LANSOPRAZOLE SOLUTAB 30 MG TAB PEG SCH (09:06)
--- NOTE | 2016-03-07 19:12 | HHI.PR ---
Subjective Remarks Late entry. Patient evaluated early this morning. No acute complaints. No change in clinical status. Objective Vitals Vital Signs Date Time Temp Pulse Resp B/P Pulse Ox O2 Delivery O2 Flow Rate FiO2 03/07/16 08:00 98.1 75 20 113/70 94 03/06/16 20:00 97.8 79 16 123/75 95 I/O 03/06/16 03/06/16 03/06/16 03/07/16 03/07/16 03/07/16 07:00 15:00 23:00 07:00 15:00 23:00 Intake Total 620 ml 0 ml 510 ml 460 ml 720 ml Output Total 725 ml 626 ml 300 ml 420 ml Balance -105 ml -626 ml 510 ml 160 ml 300 ml Intake Oral 0 ml 0 ml Tube Feeding 420 ml 360 ml 360 ml 420 ml Tube Irrigant 200 ml Other 150 ml 100 ml 300 ml Output Urine Total 725 ml 625 ml 300 ml 420 ml Stool Total 1 ml # Voids 1 # Bowel Movements 1 1 2 Result Diagram: 03/07/16 1735 03/07/16 0450 Imaging Last Impressions Abdomen/Pelvis CT 03/06/16 0000 Signed Impressions: Service Date/Time: Sunday, March 06, 2016 22:27 - CONCLUSION: 1. Resolution of right sided hydronephrosis. 2. Renal cysts. 3. Bladder is decompressed and there is circumferential bladder wall thickening and intraluminal air identified. A cystitis is not excluded. 4. A large stool ball is noted within the rectum. 5. Cholelithiasis. 6. Nonobstructing left renal calculus. Speedy Noriega MD Abdomen X-Ray 01/30/16 0000 Signed Impressions: Service Date/Time: Saturday, January 30, 2016 14:17 - CONCLUSION: Satisfactory PEG tube positioning Mikael Valladares MD Objective Remarks GENERAL: Well developed male in no apparent distress. CARDIOVASCULAR: Regular rate and rhythm. RESPIRATORY: Limited anterior exam. No accessory muscle use. Clear to auscultation bilaterally. GASTROINTESTINAL: Normoactive bowel sounds. Abdomen soft, non-tender, nondistended. NEUROLOGICAL: Awake and alert. PSYCHIATRIC: Nods his head to questions. Does not speak. Procedures None Urinary Catheter: Yes Assessment to: Continue Soto insert reason: Obstruction/Retention Date of Insertion: Feb 24, 2016 Vascular Central Line Catheter: No A/P Problem List: (1) GI bleed ICD Code: K92.2 Status: Resolved (2) Essential tremor ICD Code: G25.0 Status: Chronic (3) Dementia ICD Code: F03.90 Status: Chronic (4) Parkinson disease ICD Code: G20 Status: Chronic (5) Hypotension ICD Code: I95.9 Status: Resolved (6) Loose stools ICD Code: R19.5 Status: Resolved Assessment and Plan Upper GI bleed had resolved. Now has bloody stools. GI was consulted and had signed off due to no GI bleed, but patient developed bloody stools yesterday. Hemoccult positive. Hemoglobin has remained stable. Recheck Hemoglobin in the morning. Continue PPI. GI consulted for evaluation. CT of the abdomen was performed 03/06 due to reported abdominal pain yesterday, to evaluate for infection. This shows a large stool ball noted within the rectum and a large amount of stool throughout the colon. Dulcolax suppository was ordered as needed for constipation, but it was never given and the patient has had 2 bowel movements documented for today. Hypotension with episodes of hypertension: BP 96/57 last night but improved to 115/63 this morning. Blood pressure labile. Continue to monitor. Continue Midodrine. Elevated BUN, stable Continue fluid flushes via PEG tube to avoid dehydration. Loose stools: Resolved. C. difficile negative. Stool culture and O&P negative. Continue Lactinex. Stage I decubitus ulcer, sacral skin tear: Continue wound care. Parkinson's disease: Patient has dementia and resting tremor. Chronic, stable. Mood disorder: Stable Continue Remeron. Mild obstructive uropathy: Resolved Appreciate urology recommendations. Suprapubic catheter in place, last changed 02/24/16. To be changed monthly. Abdominal pelvis CT 03/06/16 shows resolution of right sided hydronephrosis. Urinary tract infection, resolved Urine culture positive for Proteus mirabilis and GBS. Patient has completed course of antibiotics. Abdominal pelvis CT 03/06 shows decompressed bladder with circumferential bladder wall thickening and intraluminal air possibly indicating cystitis, but the patient has been afebrile with normal WBC count. No treatment indicated. Protein calorie malnutrition: Continue tube feeds. On Jevity 1.5 at 60 ml/h. discontinue continuous tube feedings and start bolus feedings as recommended by dietitian Consulted dietitian who indicated that patient may be converted to bolus feeding and recommended Jevity 1.5, 6 cans per day. 1.5 cans that 0800 and 2000 , 1 can at 1100, 1400, 1700 Was informed by RN that the patient's tube was not functioning earlier today but this was resolved and feedings were resumed. Weakness: Continue physical therapy Nursing staff to get patient up out of bed at least 3 times daily DVT prophylaxis: SCDs. Avoid chemical prophylaxis secondary to GI bleed. Discharge Planning artist manager working on long-term care placement. PT recommends rehabilitation. Madeline Ortez Mar 07, 2016 19:12
[2016-03-07 20:00] VITALS: BP 133/74; PULSE 73; RESP 20; TEMP 98.7; O2SAT 96
[2016-03-07] MEDS: MIRTAZAPINE 15 MG TAB PEG SCH (21:24)
[2016-03-08] MEDS: MIDODRINE 5 MG TAB PO SCH ×3 (06:26→18:08)
[2016-03-08 07:26] LABS: AUTOMATED NEUTROPHIL # 3.5 TH/MM3 (1.8-7.7); BASOPHIL # 0.1 TH/MM3 (0-0.2); BASOPHIL % 0.8 % (0.0-2.0); EOSINOPHIL # 0.2 TH/MM3 (0-0.4); EOSINOPHIL % 3.2 % (0.0-4.0); HEMATOCRIT 42.7 % (39.0-51.0); HEMO FLAGS DIFF FINAL; LYMPH % 43.3 % (9.0-44.0); LYMPHOCYTE # 3.1 TH/MM3 (1.0-4.8); MEAN CELL VOLUME 87.4 FL (80.0-100.0); MEAN CORPUSCULAR HGB CONC 32.1 % (32.0-36.0); MONO % 5.9 % (0.0-8.0); NEUT % 46.8 % (16.0-70.0); PLATELET COUNT 171 TH/MM3 (150-450); RED BLOOD COUNT 4.89 MIL/MM3 (4.50-5.90); RED CELL DISTRIBUTION WIDTH 16.3 % (11.6-17.2); WHITE BLOOD COUNT 7.3 TH/MM3 (4.0-11.0)
[2016-03-08 08:00] VITALS: BP 105/66; PULSE 70; RESP 18; TEMP 98.7; O2SAT 95
[2016-03-08] MEDS: ALLOPURINOL 100 MG TAB PEG SCH (08:42)
[2016-03-08] MEDS: LANSOPRAZOLE SOLUTAB 30 MG TAB PEG SCH (08:42)
[2016-03-08] MEDS: MUPIROCIN 2% OINT 22 GM TUBE TOPICAL SCH ×2 (08:42→21:27)
--- NOTE | 2016-03-08 13:55 | HHI.GIFU ---
Subjective Remarks asked to see patient for some blood per rectum, no new complains, had constipation nut had stool softener and BMs x2 Objective Vitals I&O Vital Signs Date Time Temp Pulse Resp B/P Pulse Ox O2 Delivery O2 Flow Rate FiO2 03/08/16 08:00 98.7 70 18 105/66 95 03/07/16 20:00 98.7 73 20 133/74 96 I/O 03/07/16 03/07/16 03/07/16 03/08/16 03/08/16 03/08/16 07:00 15:00 23:00 07:00 15:00 23:00 Intake Total 460 ml 720 ml 460 ml 510 ml Output Total 300 ml 420 ml Balance 160 ml 300 ml 460 ml 510 ml Intake Oral 0 ml Tube Feeding 360 ml 420 ml 360 ml 360 ml Other 100 ml 300 ml 100 ml 150 ml Output Urine Total 300 ml 420 ml # Bowel Movements 1 2 Laboratory Laboratory Tests Test 03/07/16 03/08/16 17:35 07:17 Hemoglobin 14.4 13.7 White Blood Count 7.3 Red Blood Count 4.89 Hematocrit 42.7 Mean Corpuscular Volume 87.4 Mean Corpuscular Hemoglobin 28.0 Mean Corpuscular Hemoglobin 32.1 Concent Red Cell Distribution Width 16.3 Platelet Count 171 Mean Platelet Volume 9.4 Neutrophils (%) (Auto) 46.8 Lymphocytes (%) (Auto) 43.3 Monocytes (%) (Auto) 5.9 Eosinophils (%) (Auto) 3.2 Basophils (%) (Auto) 0.8 Neutrophils # (Auto) 3.5 Lymphocytes # (Auto) 3.1 Monocytes # (Auto) 0.4 Eosinophils # (Auto) 0.2 Basophils # (Auto) 0.1 CBC Comment DIFF FINAL Differential Comment Date/Time Procedure Status Source Growth 03/06/16 17:45 Stool Occult Blood (GERI) - Final Complete Stool Stool HEMOCCULT POSITIVE Physical Exam NECK: Neck is supple, no JVD, no lymphadenopathy. CHEST: CTA, diminished CARDIAC: RRR ABDOMEN: Soft, nondistended, nontender; PEG tube site without redness or swelling, suprapubic catheter in place. EXTREMITIES: No clubbing, cyanosis, or edema. SENIOR TECHNICAL SUPPORT ANALYST: Lethargic and confused Assessment and Plan Plan ASSESSMENT: No further signs of GI bleeding. constipation, HGB stable - Dementia, suprapubic catheter per attending Plan: - Cont. PPI - Monitor HH - Notify GI of bleeding - Supportive care - may consider colonoscopy buy it seems it is related to constipation with possible stool impaction HGB stable we will check over weekend HGB and possible doing it on Friday opr Friday Lidya Rousseau MD Mar 08, 2016 13:55
--- NOTE | 2016-03-08 18:05 | HHI.PR ---
Subjective Remarks Late entry. Patient evaluated this morning. Follow up for Parkinson's, malnutrition, GI bleed. Denies shortness of breath. Denies further bloody stools. Denies diarrhea. Objective Vitals Vital Signs Date Time Temp Pulse Resp B/P Pulse Ox O2 Delivery O2 Flow Rate FiO2 03/08/16 08:00 98.7 70 18 105/66 95 03/07/16 20:00 98.7 73 20 133/74 96 I/O 03/07/16 03/07/16 03/07/16 03/08/16 03/08/16 03/08/16 07:00 15:00 23:00 07:00 15:00 23:00 Intake Total 460 ml 720 ml 460 ml 510 ml Output Total 300 ml 420 ml Balance 160 ml 300 ml 460 ml 510 ml Intake Oral 0 ml Tube Feeding 360 ml 420 ml 360 ml 360 ml Other 100 ml 300 ml 100 ml 150 ml Output Urine Total 300 ml 420 ml # Bowel Movements 1 2 Result Diagram: 03/08/16 0717 03/07/16 0450 Objective Remarks GENERAL: Well developed male in no apparent distress. CARDIOVASCULAR: Regular rate and rhythm. RESPIRATORY: Limited anterior exam. No accessory muscle use. Clear to auscultation bilaterally. GASTROINTESTINAL: Abdomen non-tender, nondistended. Feeding tube and suprapubic catheter present. NEUROLOGICAL: Awake and alert. PSYCHIATRIC: Nods his head to questions. Does not speak. Procedures None Urinary Catheter: Yes Assessment to: Continue Soto insert reason: Obstruction/Retention Date of Insertion: Feb 24, 2016 Vascular Central Line Catheter: No A/P Problem List: (1) GI bleed ICD Code: K92.2 Status: Resolved (2) Essential tremor ICD Code: G25.0 Status: Chronic (3) Dementia ICD Code: F03.90 Status: Chronic (4) Parkinson disease ICD Code: G20 Status: Chronic (5) Hypotension ICD Code: I95.9 Status: Resolved (6) Loose stools ICD Code: R19.5 Status: Resolved Assessment and Plan Upper GI bleed had resolved. Bloody stools 03/06. GI was consulted and had signed off due to no GI bleed, but patient developed bloody stools on 03/06. Hemoccult positive. Hemoglobin has remained stable, 13.7 this morning. Continue PPI. CT of the abdomen was performed 03/06 due to reported abdominal pain yesterday, to evaluate for infection. This shows a large stool ball noted within the rectum and a large amount of stool throughout the colon. Dulcolax suppository was ordered as needed for constipation, but it was never given and the patient has had 2 bowel movements over the past 24 hours. GI evaluated the patient this morning and states bleeding may be related to constipation/stool impaction. Recommends monitoring hemoglobin over the weekend , and consider colonoscopy on Mon or Tu of needed. Hypotension with episodes of hypertension: Currently stable. Blood pressure labile. Continue to monitor. Continue Midodrine. Elevated BUN, stable Continue fluid flushes via PEG tube to avoid dehydration. Loose stools: Resolved. C. difficile negative. Stool culture and O&P negative. Continue Lactinex. Stage I decubitus ulcer, sacral skin tear: Continue wound care. Parkinson's disease: Patient has dementia and resting tremor. Chronic, stable. Mood disorder: Stable Continue Remeron. Mild obstructive uropathy: Resolved Appreciate urology recommendations. Suprapubic catheter in place, last changed 02/24/16. To be changed monthly. Abdominal pelvis CT 03/06/16 shows resolution of right sided hydronephrosis. Urinary tract infection, resolved Urine culture positive for Proteus mirabilis and GBS. Patient has completed course of antibiotics. Abdominal pelvis CT 03/06 shows decompressed bladder with circumferential bladder wall thickening and intraluminal air possibly indicating cystitis, but the patient has been afebrile with normal WBC count. No treatment indicated. Protein calorie malnutrition: Continue tube feeds. On Jevity 1.5 at 60 ml/h. discontinue continuous tube feedings and start bolus feedings as recommended by dietitian Consulted dietitian who indicated that patient may be converted to bolus feeding and recommended Jevity 1.5, 6 cans per day. 1.5 cans that 0800 and 2000 , 1 can at 1100, 1400, 1700 Was informed by RN that the patient's tube was not functioning earlier yesterday 03/07 but this was resolved and feedings were resumed. Weakness: Continue physical therapy Nursing staff to get patient up out of bed at least 3 times daily DVT prophylaxis: SCDs. Avoid chemical prophylaxis secondary to GI bleed. Discharge Planning senior manager working on long-term care placement. PT recommends rehabilitation. Madeline Ortez Mar 08, 2016 18:05
[2016-03-08 20:00] VITALS: BP 114/58; PULSE 62; RESP 15; TEMP 97.8; O2SAT 96
[2016-03-08] MEDS: MIRTAZAPINE 15 MG TAB PEG SCH (21:26)
[2016-03-09] MEDS: MIDODRINE 5 MG TAB PO SCH ×3 (06:06→17:00)
[2016-03-09] MEDS: ALLOPURINOL 100 MG TAB PEG SCH (08:04)
[2016-03-09] MEDS: LANSOPRAZOLE SOLUTAB 30 MG TAB PEG SCH (08:04)
[2016-03-09] MEDS: MUPIROCIN 2% OINT 22 GM TUBE TOPICAL SCH (09:00)
[2016-03-09 09:27] VITALS: BP 118/69; PULSE 64; RESP 20; TEMP 95.9; O2SAT 97
--- NOTE | 2016-03-09 15:51 | HHI.PR ---
Subjective Remarks Late entry. Patient evaluated early this morning. Follow-up for GI bleed, malnutrition, Parkinson's. Nurse informs me that the patient has a red bump over his eyelid. Objective Vitals Vital Signs Date Time Temp Pulse Resp B/P Pulse Ox O2 Delivery O2 Flow Rate FiO2 03/09/16 09:27 95.9 64 20 118/69 97 03/08/16 20:00 97.8 62 15 114/58 96 I/O 03/08/16 03/08/16 03/08/16 03/09/16 03/09/16 03/09/16 07:00 15:00 23:00 07:00 15:00 23:00 Intake Total 510 ml 480 ml Output Total 701 ml 375 ml 200 ml Balance 510 ml -701 ml 105 ml -200 ml Intake Oral 0 ml Tube Feeding 360 ml 360 ml Other 150 ml 120 ml Output Urine Total 700 ml 375 ml 200 ml Stool Total 1 ml # Bowel Movements 1 1 Result Diagram: 03/09/16 0523 03/07/16 0450 Objective Remarks GENERAL: Well developed male in no apparent distress. EYES: Bilateral pupils equal and round. No conjunctival injection. The right upper and lower eyelids are erythematous at the lash line. There is a scabbed nodule over the right upper eyelid and a tender nodule underneath the medial right upper eyelid. There is some slight white drainage and crusting below the right lower eyelid. CARDIOVASCULAR: Regular rate and rhythm. RESPIRATORY: Limited anterior exam. No accessory muscle use. Clear to auscultation bilaterally. GASTROINTESTINAL: Abdomen soft, non-tender, non-distended. NEUROLOGICAL: Awake and alert. PSYCHIATRIC: Nods his head to questions. Does not speak. Procedures None Urinary Catheter: No Date of Insertion: Feb 24, 2016 Vascular Central Line Catheter: No A/P Problem List: (1) GI bleed ICD Code: K92.2 Status: Resolved (2) Essential tremor ICD Code: G25.0 Status: Chronic (3) Dementia ICD Code: F03.90 Status: Chronic (4) Parkinson disease ICD Code: G20 Status: Chronic (5) Hypotension ICD Code: I95.9 Status: Resolved (6) Loose stools ICD Code: R19.5 Status: Resolved (7) Hordeolum of right upper eyelid ICD Code: H00.011 Status: Acute Assessment and Plan Upper GI bleed had resolved. Bloody stools 03/06. GI was consulted and had signed off due to no GI bleed, but patient developed bloody stools on 03/06. Hemoccult positive. Hemoglobin has remained stable, 14.4 this morning. Continue PPI. CT of the abdomen was performed 03/06 due to reported abdominal pain yesterday, to evaluate for infection. This shows a large stool ball noted within the rectum and a large amount of stool throughout the colon. Dulcolax suppository was ordered as needed for constipation, but it was never needed because patient has had adequate BMs. GI evaluated the patient on 03/08 and states bleeding is likely related to constipation/stool impaction. Recommends monitoring hemoglobin over the weekend , and consider colonoscopy on Fri or of needed. Hordeolum: Patient has a hordeolum of the right upper eyelid although both the upper and lower eyelids of the right eye appeared inflamed although limited to the lash margin. There is no evidence of preseptal cellulitis. Patient is afebrile. Nurse advised to apply warm compresses for 15 minutes 4 times a day. Topical medication is unlikely to help as there is no conjunctivitis evident. If persists or worsens, can consider oral antibiotic coverage. Will reassess tomorrow. Hypotension with episodes of hypertension: Currently stable. Blood pressure labile. Continue to monitor. Continue Midodrine. Elevated BUN, stable Continue fluid flushes via PEG tube to avoid dehydration. Loose stools: Resolved. C. difficile negative. Stool culture and O&P negative. Continue Lactinex. Stage I decubitus ulcer, sacral skin tear: Continue wound care. Parkinson's disease: Patient has dementia and resting tremor. Chronic, stable. Mood disorder: Stable Continue Remeron. Mild obstructive uropathy: Resolved Appreciate urology recommendations. Suprapubic catheter in place, last changed 02/24/16. To be changed monthly. Abdominal pelvis CT 03/06/16 shows resolution of right sided hydronephrosis. Urinary tract infection, resolved Urine culture positive for Proteus mirabilis and GBS. Patient has completed course of antibiotics. Abdominal pelvis CT 03/06 shows decompressed bladder with circumferential bladder wall thickening and intraluminal air possibly indicating cystitis, but the patient has been afebrile with normal WBC count. No treatment indicated. Protein calorie malnutrition: Continue tube feeds. On Jevity 1.5 at 60 ml/h. discontinue continuous tube feedings and start bolus feedings as recommended by dietitian Consulted dietitian who indicated that patient may be converted to bolus feeding and recommended Jevity 1.5, 6 cans per day. 1.5 cans that 0800 and 2000 , 1 can at 1100, 1400, 1700 Was informed by RN that the patient's tube was not functioning earlier yesterday 03/07 but this was resolved and feedings were resumed. Weakness: Continue physical therapy Nursing staff to get patient up out of bed at least 3 times daily DVT prophylaxis: SCDs. Avoid chemical prophylaxis secondary to GI bleed. Discharge Planning online services manager working on long-term care placement. PT recommends rehabilitation. Problem Qualifiers (1) Hordeolum of right upper eyelid: Qualified Code: H00.011 - Hordeolum of right upper eyelid, unspecified hordeolum type Madeline Ortez Mar 09, 2016 15:51
[2016-03-09 20:00] VITALS: BP 116/70; PULSE 63; RESP 18; TEMP 98.1; O2SAT 97
[2016-03-09] MEDS: MIRTAZAPINE 15 MG TAB PEG SCH (21:29)
[2016-03-10] MEDS: MIDODRINE 5 MG TAB PO SCH ×3 (06:20→17:00)
[2016-03-10 08:00] VITALS: BP 121/73; PULSE 66; RESP 20; TEMP 96.9; O2SAT 96
[2016-03-10] MEDS: LANSOPRAZOLE SOLUTAB 30 MG TAB PEG SCH (08:28)
[2016-03-10] MEDS: ALLOPURINOL 100 MG TAB PEG SCH (08:28)
--- NOTE | 2016-03-10 10:02 | HHI.GIFU ---
Subjective Remarks No new issues per nursing staff. No active bleeding. Pt having 1-2 BMs per day per nursing staff. No complaints of abd pain. No nausea/vomiting. Pt tolerating TF. (Libby Will) Objective Vitals I&O Vital Signs Date Time Temp Pulse Resp B/P Pulse Ox O2 Delivery O2 Flow Rate FiO2 03/10/16 08:00 96.9 66 20 121/73 96 03/09/16 20:00 98.1 63 18 116/70 97 I/O 03/09/16 03/09/16 03/09/16 03/10/16 03/10/16 03/10/16 06:59 14:59 22:59 06:59 14:59 22:59 Intake Total 480 ml 420 ml Output Total 375 ml 200 ml 625 ml 350 ml Balance 105 ml -200 ml -205 ml -350 ml Intake Oral 0 ml Tube Feeding 360 ml 320 ml Tube Irrigant 100 ml Other 120 ml Output Urine Total 375 ml 200 ml 625 ml 350 ml # Bowel Movements 1 1 Laboratory Date/Time Procedure Status Source Growth 03/06/16 17:45 Stool Occult Blood (GERI) - Final Complete Stool Stool HEMOCCULT POSITIVE Imaging Last Impressions Abdomen/Pelvis CT 03/06/16 0000 Signed Impressions: Service Date/Time: Sunday, March 06, 2016 22:27 - CONCLUSION: 1. Resolution of right sided hydronephrosis. 2. Renal cysts. 3. Bladder is decompressed and there is circumferential bladder wall thickening and intraluminal air identified. A cystitis is not excluded. 4. A large stool ball is noted within the rectum. 5. Cholelithiasis. 6. Nonobstructing left renal calculus. Speedy Noriega MD Abdomen X-Ray 01/30/16 0000 Signed Impressions: Service Date/Time: Saturday, January 30, 2016 14:17 - CONCLUSION: Satisfactory PEG tube positioning Mikael Valladares MD Physical Exam NECK: Neck is supple CHEST: CTA, diminished CARDIAC: RRR ABDOMEN: Soft, nondistended, nontender; PEG tube site without redness or swelling, suprapubic catheter in place. EXTREMITIES: No clubbing, cyanosis, or edema. CARD FOLDER: Awake, confused (Libby Will) Assessment and Plan Plan ASSESSMENT: - Originally consulted on 01/20 for upper GI bleed with coffee-ground emesis which resolved. Patient then developed bloody stools on 03/06. CT of the abdomen (03/06) due to reported abdominal pain which showed a large stool ball noted within the rectum and a large amount of stool throughout the colon. Pt started moving his bowels, the bleeding is likely related to constipation/stool impaction. H/H has remained stable. No further bleeding. Pt continues to have around 2 BMs per day per nursing staff. - Malnutrition. Pt is on Jevity 1.5 at 60 ml/h. Continued TF to be changed to bolus feedings as recommended by dietitian, per attending. Jevity 1.5, 6 cans per day. 1.5 cans that 0800 and 2000, 1 can at 1100, 1400, 1700. RN reports some period issues with the PEG tube becoming clogged but this has been able to be resolved by nursing staff. - Dementia, suprapubic catheter per attending PLAN: - Cont. PPI - Monitor HH - Notify GI of bleeding - Supportive care - The pt was seen and examined by myself and Dr. Benavides, this note was written on her behalf. (Libby Will) Physician Comments seen, examined agree with above we will monitor closely, possible egd/colon this week (Idalia Benavides MD) Libby Will Mar 10, 2016 10:02 Idalia Benavides MD Mar 10, 2016 16:33
--- NOTE | 2016-03-10 10:25 | HHI.PR ---
Subjective Remarks Follow-up for GI bleed, malnutrition, Parkinson's, acute hordeolum. Patient denies any fevers. Denies any drainage from the eye. Objective Vitals Vital Signs Date Time Temp Pulse Resp B/P Pulse Ox O2 Delivery O2 Flow Rate FiO2 03/10/16 08:00 96.9 66 20 121/73 96 03/09/16 20:00 98.1 63 18 116/70 97 I/O 03/09/16 03/09/16 03/09/16 03/10/16 03/10/16 03/10/16 06:59 14:59 22:59 06:59 14:59 22:59 Intake Total 480 ml 420 ml Output Total 375 ml 200 ml 625 ml 350 ml Balance 105 ml -200 ml -205 ml -350 ml Intake Oral 0 ml Tube Feeding 360 ml 320 ml Tube Irrigant 100 ml Other 120 ml Output Urine Total 375 ml 200 ml 625 ml 350 ml # Bowel Movements 1 1 Result Diagram: 03/09/16 0523 03/07/16 0450 Objective Remarks GENERAL: Well developed male in no apparent distress. EYES: Pupils normal. No conjunctival injection. The right upper eyelid is erythematous at the lash line. There is an open area over the right upper eyelid and a nodule underneath the medial right upper eyelid. No drainage or crusting. No preseptal erythema or swelling. CARDIOVASCULAR: Regular rate and rhythm. RESPIRATORY: Limited anterior exam. No accessory muscle use. Clear to auscultation bilaterally. GASTROINTESTINAL: Abdomen soft, non-tender, non-distended. NEUROLOGICAL: Awake and alert. PSYCHIATRIC: Nods his head to questions. Does not speak. Procedures None Date of Insertion: Feb 24, 2016 A/P Problem List: (1) GI bleed ICD Code: K92.2 Status: Resolved (2) Essential tremor ICD Code: G25.0 Status: Chronic (3) Dementia ICD Code: F03.90 Status: Chronic (4) Parkinson disease ICD Code: G20 Status: Chronic (5) Hypotension ICD Code: I95.9 Status: Resolved (6) Loose stools ICD Code: R19.5 Status: Resolved (7) Hordeolum of right upper eyelid ICD Code: H00.011 Status: Acute Assessment and Plan Upper GI bleed resolved. Bloody stools 03/06 resolved. Developed bloody stools on 03/06. Hemoccult positive. Hemoglobin has remained stable, 13.9 this morning. Continue PPI. CT of the abdomen was performed 03/06 due to reported abdominal pain yesterday, to evaluate for infection. This shows a large stool ball noted within the rectum and a large amount of stool throughout the colon. Dulcolax suppository was ordered as needed for constipation, but it was never needed because patient has had adequate BMs. GI has evaluated patient and states bleeding is likely related to constipation/ stool impaction. Hordeolum: Patient has a hordeolum of the right upper eyelid. There is no evidence of preseptal cellulitis. Patient is afebrile. Nurse advised to apply warm compresses for 15 minutes 4 times a day. Topical medication is unlikely to help as there is no conjunctivitis evident, but will consider use over open area to external surface of R upper eyelid if needed. If persists or worsens, can consider oral antibiotic coverage. Will monitor. Hypotension with episodes of hypertension: Currently stable. Blood pressure labile. Continue to monitor. Continue Midodrine. Elevated BUN, stable Continue fluid flushes via PEG tube to avoid dehydration. Loose stools: Resolved. C. difficile negative. Stool culture and O&P negative. Continue Lactinex. Stage I decubitus ulcer, sacral skin tear: Continue wound care. Parkinson's disease: Patient has dementia and resting tremor. Chronic, stable. Mood disorder: Stable Continue Remeron. Mild obstructive uropathy: Resolved Appreciate urology recommendations. Suprapubic catheter in place, last changed 02/24/16. To be changed monthly. Abdominal pelvis CT 03/06/16 shows resolution of right sided hydronephrosis. Urinary tract infection, resolved Urine culture positive for Proteus mirabilis and GBS. Patient has completed course of antibiotics. Abdominal pelvis CT 03/06 shows decompressed bladder with circumferential bladder wall thickening and intraluminal air possibly indicating cystitis, but the patient has been afebrile with normal WBC count. No treatment indicated. Protein calorie malnutrition: Continue tube feeds. On Jevity 1.5 at 60 ml/h. discontinue continuous tube feedings and start bolus feedings as recommended by dietitian Consulted dietitian who indicated that patient may be converted to bolus feeding and recommended Jevity 1.5, 6 cans per day. 1.5 cans that 0800 and 2000 , 1 can at 1100, 1400, 1700 Was informed by RN that the patient's tube was not functioning earlier yesterday 03/07 but this was resolved and feedings were resumed. Weakness: Continue physical therapy Nursing staff to get patient up out of bed at least 3 times daily DVT prophylaxis: SCDs. Avoid chemical prophylaxis secondary to GI bleed. Discharge Planning manager athletics working on long-term care placement. PT recommends rehabilitation. Problem Qualifiers (1) Hordeolum of right upper eyelid: Qualified Code: H00.011 - Hordeolum of right upper eyelid, unspecified hordeolum type Madeline Ortez Mar 10, 2016 10:24
[2016-03-10 20:00] VITALS: BP 105/72; PULSE 75; RESP 18; TEMP 96.7; O2SAT 94
[2016-03-10] MEDS: MIRTAZAPINE 15 MG TAB PEG SCH (20:49)
[2016-03-11] MEDS: MIDODRINE 5 MG TAB PO SCH ×3 (06:08→18:06)
[2016-03-11 08:00] VITALS: BP 121/64; PULSE 72; RESP 16; TEMP 98.6; O2SAT 96
--- NOTE | 2016-03-11 08:04 | HHI.GIFU ---
Subjective Remarks Comfortable in bed no pain no bleeding Objective Vitals I&O Vital Signs Date Time Temp Pulse Resp B/P Pulse Ox O2 Delivery O2 Flow Rate FiO2 03/10/16 20:00 96.7 75 18 105/72 94 I/O 03/10/16 03/10/16 03/10/16 03/11/16 03/11/16 03/11/16 07:00 15:00 23:00 07:00 15:00 23:00 Intake Total 410 ml Output Total 350 ml 650 ml 300 ml 300 ml Balance -350 ml -650 ml 110 ml -300 ml Tube Feeding 360 ml Tube Irrigant 50 ml Output Urine Total 350 ml 650 ml 300 ml 300 ml # Bowel Movements 1 Laboratory Laboratory Tests Test 03/10/16 10:08 Hemoglobin 13.9 Date/Time Procedure Status Source Growth 03/06/16 17:45 Stool Occult Blood (GERI) - Final Complete Stool Stool HEMOCCULT POSITIVE Physical Exam NECK: Neck is supple CHEST: CTA, diminished CARDIAC: RRR ABDOMEN: Soft, nondistended, nontender; PEG tube site without redness or swelling, suprapubic catheter in place. EXTREMITIES: No clubbing, cyanosis, or edema. INTERNAL AUDIT DIRECTOR: Awake, confused and nonverbal Assessment and Plan Plan ASSESSMENT: - Originally consulted on 01/20 for upper GI bleed with coffee-ground emesis which resolved. Patient then developed bloody stools on 03/06. CT of the abdomen (03/06) due to reported abdominal pain which showed a large stool ball noted within the rectum and a large amount of stool throughout the colon. Pt started moving his bowels, the bleeding is likely related to constipation/stool impaction. H/H has remained stable. No further bleeding. Pt continues to have around 2 BMs per day per nursing staff. - Malnutrition. Pt is on Jevity 1.5 at 60 ml/h. Continued TF to be changed to bolus feedings as recommended by dietitian, per attending. Jevity 1.5, 6 cans per day. 1.5 cans that 0800 and 2000, 1 can at 1100, 1400, 1700. RN reports some period issues with the PEG tube becoming clogged but this has been able to be resolved by nursing staff. - Dementia, suprapubic catheter per attending PLAN: - Cont. PPI - Monitor HH - Notify GI of bleeding - Supportive care -May consider flexible sigmoidoscopy -Constipation precautions Bladimir Enriquez MD Mar 11, 2016 08:04
[2016-03-11] MEDS: LANSOPRAZOLE SOLUTAB 30 MG TAB PEG SCH (08:34)
[2016-03-11] MEDS: ALLOPURINOL 100 MG TAB PEG SCH (08:34)
--- NOTE | 2016-03-11 10:18 | HHI.PR ---
Subjective Remarks No acute complaints. No change in clinical status. Objective Vitals Vital Signs Date Time Temp Pulse Resp B/P Pulse Ox O2 Delivery O2 Flow Rate FiO2 03/11/16 08:00 98.6 72 16 121/64 96 03/10/16 20:00 96.7 75 18 105/72 94 I/O 03/10/16 03/10/16 03/10/16 03/11/16 03/11/16 03/11/16 07:00 15:00 23:00 07:00 15:00 23:00 Intake Total 410 ml Output Total 350 ml 650 ml 300 ml 300 ml Balance -350 ml -650 ml 110 ml -300 ml Tube Feeding 360 ml Tube Irrigant 50 ml Output Urine Total 350 ml 650 ml 300 ml 300 ml # Bowel Movements 1 Result Diagram: 03/10/16 1008 03/07/16 0450 Objective Remarks GENERAL: Well developed male in no apparent distress. EYES: Pupils normal. No conjunctival injection. The right upper eyelid is erythematous with a nodule present. Small open area over the external upper eyelid. Mild drainage at R lower eyelid. No preseptal erythema or swelling. CARDIOVASCULAR: Regular rate and rhythm. RESPIRATORY: Limited anterior exam. No accessory muscle use. Clear to auscultation bilaterally. GASTROINTESTINAL: Abdomen soft, non-tender, non-distended. NEUROLOGICAL: Awake and alert. PSYCHIATRIC: Nods his head to questions. Does not speak. Procedures None Urinary Catheter: Yes Assessment to: Continue Date of Insertion: Feb 24, 2016 Vascular Central Line Catheter: No A/P Problem List: (1) GI bleed ICD Code: K92.2 Status: Resolved (2) Essential tremor ICD Code: G25.0 Status: Chronic (3) Dementia ICD Code: F03.90 Status: Chronic (4) Parkinson disease ICD Code: G20 Status: Chronic (5) Hypotension ICD Code: I95.9 Status: Resolved (6) Loose stools ICD Code: R19.5 Status: Resolved (7) Hordeolum of right upper eyelid ICD Code: H00.011 Status: Acute Assessment and Plan Upper GI bleed resolved. Bloody stools 03/06 resolved. Developed bloody stools on 03/06. Hemoccult positive. Hemoglobin has remained stable. Continue PPI. CT of the abdomen was performed 03/06 due to reported abdominal pain yesterday, to evaluate for infection. This shows a large stool ball noted within the rectum and a large amount of stool throughout the colon. Dulcolax suppository was ordered as needed for constipation, but it was never needed because patient has had adequate BMs. GI has evaluated patient and states bleeding is likely related to constipation/ stool impaction. Hordeolum: Patient has a hordeolum of the right upper eyelid. There is no evidence of preseptal cellulitis. Patient is afebrile. Nurse was advised to apply warm compresses for 15 minutes 4 times a day. I was informed patient apparently cannot hold compress on himself, so RN/PRESIDENT is asked to manually hold on during 15 minute periods. Topical medication is unlikely to help as there is no conjunctivitis evident, but will consider use over open area to external surface of R upper eyelid if needed. If persists or worsens, can consider oral antibiotic coverage. Will monitor. Hypotension with episodes of hypertension: Currently stable. Blood pressure labile. Continue to monitor. Continue Midodrine. Elevated BUN, stable Continue fluid flushes via PEG tube to avoid dehydration. Loose stools: Resolved. C. difficile negative. Stool culture and O&P negative. Continue Lactinex. Stage I decubitus ulcer, sacral skin tear: Continue wound care. Parkinson's disease: Patient has dementia and resting tremor. Chronic, stable. Mood disorder: Stable Continue Remeron. Mild obstructive uropathy: Resolved Appreciate urology recommendations. Suprapubic catheter in place, last changed 02/24/16. To be changed monthly. Abdominal pelvis CT 03/06/16 shows resolution of right sided hydronephrosis. Urinary tract infection, resolved Urine culture positive for Proteus mirabilis and GBS. Patient has completed course of antibiotics. Abdominal pelvis CT 03/06 shows decompressed bladder with circumferential bladder wall thickening and intraluminal air possibly indicating cystitis, but the patient has been afebrile with normal WBC count. No treatment indicated. Protein calorie malnutrition: Continue tube feeds. On Jevity 1.5 at 60 ml/h. discontinue continuous tube feedings and start bolus feedings as recommended by dietitian Consulted dietitian who indicated that patient may be converted to bolus feeding and recommended Jevity 1.5, 6 cans per day. 1.5 cans that 0800 and 2000 , 1 can at 1100, 1400, 1700 Was informed by RN that the patient's tube was not functioning earlier yesterday 03/07 but this was resolved and feedings were resumed. Weakness: Continue physical therapy Nursing staff to get patient up out of bed at least 3 times daily DVT prophylaxis: SCDs. Avoid chemical prophylaxis secondary to GI bleed. Discharge Planning assistant real estate manager working on long-term care placement. PT recommends rehabilitation. Problem Qualifiers (1) Hordeolum of right upper eyelid: Qualified Code: H00.011 - Hordeolum of right upper eyelid, unspecified hordeolum type Madeline Ortez Mar 11, 2016 10:18
[2016-03-11 20:00] VITALS: BP 128/78; PULSE 76; RESP 18; TEMP 98.2; O2SAT 95
[2016-03-11] MEDS: MIRTAZAPINE 15 MG TAB PEG SCH (20:15)
[2016-03-12] MEDS: MIDODRINE 5 MG TAB PO SCH ×3 (06:03→17:18)
--- NOTE | 2016-03-12 07:30 | HHI.GIFU ---
Subjective Remarks Patient comfortable in bed no pain the nurses report 2 bowel movements and no bleeding Objective Vitals I&O Vital Signs Date Time Temp Pulse Resp B/P Pulse Ox O2 Delivery O2 Flow Rate FiO2 03/11/16 20:00 98.2 76 18 128/78 95 03/11/16 08:00 98.6 72 16 121/64 96 I/O 03/11/16 03/11/16 03/11/16 03/12/16 03/12/16 03/12/16 07:00 15:00 23:00 07:00 15:00 23:00 Intake Total 1627 ml Output Total 300 ml 602 ml 650 ml Balance -300 ml 1025 ml -650 ml Tube Feeding 1327 ml Tube Irrigant 300 ml Output Urine Total 300 ml 600 ml 650 ml Stool Total 2 ml # Bowel Movements 1 1 Physical Exam NECK: Neck is supple CHEST: CTA, diminished CARDIAC: RRR ABDOMEN: Soft, nondistended, nontender; PEG tube site without redness or swelling, suprapubic catheter in place. EXTREMITIES: No clubbing, cyanosis, or edema. SENIOR SCIENCE CONSULTANT: Awake, confused and nonverbal Assessment and Plan Plan ASSESSMENT: - Originally consulted on 01/20 for upper GI bleed with coffee-ground emesis which resolved. Patient then developed bloody stools on 03/06. CT of the abdomen (03/06) due to reported abdominal pain which showed a large stool ball noted within the rectum and a large amount of stool throughout the colon. Pt started moving his bowels, the bleeding is likely related to constipation/stool impaction. H/H has remained stable. No further bleeding. Pt continues to have around 2 BMs per day per nursing staff. - Malnutrition. Pt is on Jevity 1.5 at 60 ml/h. Continued TF to be changed to bolus feedings as recommended by dietitian, per attending. Jevity 1.5, 6 cans per day. 1.5 cans that 0800 and 2000, 1 can at 1100, 1400, 1700. RN reports some period issues with the PEG tube becoming clogged but this has been able to be resolved by nursing staff. - Dementia, suprapubic catheter per attending PLAN: - Cont. PPI - Monitor HH - Notify GI of bleeding - Supportive care -May consider flexible sigmoidoscopy -Constipation precautions Bladimir Enriquez MD Mar 12, 2016 07:30
[2016-03-12] MEDS: LANSOPRAZOLE SOLUTAB 30 MG TAB PEG SCH (07:41)
[2016-03-12] MEDS: ALLOPURINOL 100 MG TAB PEG SCH (07:41)
[2016-03-12 08:00] VITALS: BP 116/75; PULSE 70; RESP 18; TEMP 97.2; O2SAT 94
--- NOTE | 2016-03-12 09:49 | HHI.PR ---
Subjective Remarks Patient seen and examined today. I'll notify the nursing staff that the patient is becoming very sexually inappropriate. Fondling the nursing staff, insinuating sexual activities. Today was the first day that the patient talk to me. He actually told me today that he did my daughter and he's marrying my daughter. Patient is actually been admitted the hospital for under psychiatry for inappropriate sexual behavior. Objective Vitals Vital Signs Date Time Temp Pulse Resp B/P Pulse Ox O2 Delivery O2 Flow Rate FiO2 03/12/16 08:00 97.2 70 18 116/75 94 03/11/16 20:00 98.2 76 18 128/78 95 I/O 03/11/16 03/11/16 03/11/16 03/12/16 03/12/16 03/12/16 07:00 15:00 23:00 07:00 15:00 23:00 Intake Total 1627 ml Output Total 300 ml 602 ml 650 ml Balance -300 ml 1025 ml -650 ml Tube Feeding 1327 ml Tube Irrigant 300 ml Output Urine Total 300 ml 600 ml 650 ml Stool Total 2 ml # Bowel Movements 1 1 Result Diagram: 03/10/16 1008 Objective Remarks GENERAL: Well-developed, well-nourished, in no acute distress. alert HEENT: Head is normocephalic without any lesions or masses noted. Facial features are symmetric. Eyes: Extraocular muscles are intact. Conjunctivae were clear. NECK: Supple without any masses. Trachea midline no deviation. No JVD, no bruits are appreciated CARDIAC: Regular rhythm, regular rate. S1/S2 are heard. No murmurs gallops or rubs. LUNGS: Clear to auscultation bilaterally. No wheeze, rhonchi or rales. No use of accessory muscles on inspiration or expiration. ABDOMEN: Soft, nontender. Nondistended. Bowel sounds heard in all 4 quadrants. No organomegaly or masses. Negative rebound, negative guarding, suprapubic catheter in place, PEG tube noted EXTREMITIES: No edema, pulses are equal bilaterally. No cyanosis or clubbing NEUROLOGY: Mood and affect appear appropriate. Cranial nerves II through XII grossly intact. Moving all extremities Procedures None Urinary Catheter: No Date of Insertion: Feb 24, 2016 Vascular Central Line Catheter: No A/P Assessment and Plan Dementia with inappropriate behavior Patient with inappropriate sexual behavior. Groping the nursing staff, indicating sexual activities, Patient has been hospitalized for similar events in 2015 Consult psychiatry for further evaluation Upper GI bleed: Resolved. Patient had episode of 1 bloody stool on 03/06, Hemoccult-positive Hemoglobin has remained stable during his stay in the hospital GI was reconsulted and following Continue PPI. Hypotension with episodes of hypertension: Stable Blood pressure labile. Continue monitor blood pressure Continue Midodrine. Elevated BUN, stable Continue fluid flushes via PEG tube to avoid dehydration. Loose stools: Resolved. C. difficile negative. Stool culture and O&P negative. Continue Lactinex. Stage I decubitus ulcer, sacral skin tear: Continue wound care. Parkinson's disease: Patient has dementia and resting tremor. Chronic, stable. Mood disorder: Stable Continue Remeron. Mild obstructive uropathy: Resolved Appreciate urology recommendations. Suprapubic catheter in place, last changed 02/24/16. To be changed monthly. Urinary tract infection, resolved UTI: Urine culture positive for Proteus mirabilis and GBS. Patient has completed course of antibiotics. Protein calorie malnutrition: Continue tube feeds. On Jevity 1.5 at 60 ml/h. discontinue continuous tube feedings and start bolus feedings as recommended by dietitian Consulted dietitian who indicated that patient may be converted to bolus feeding and recommended Jevity 1.5, 6 cans per day. 1.5 cans that 0800 and 2000 , 1 can at 1100, 1400, 1700 Weakness: Continue physical therapy Nursing staff to get patient up out of bed at least 3 times daily DVT prophylaxis: SCDs. Avoid chemical prophylaxis secondary to GI bleed. Discharge Planning Discharge planning to snf facility once arrangements made by case management 02/29/16 5321 I SPOKE WITH PATIENTS SON SIMBA TODAY IN REGARDS IN NEED FOR HIM TO WORK WITH US AND A JAIL CARE FACILITY. HE STATED HE WAS GOING TO MEET AN INDIVIDUAL AT [facility] R/T MEDICAID IN AM. I EXPLAINED TO HIM THE IMPORTANCE OF BEING PROACTIVE WITH ASSISTING GETTING DAD PLACED AND HE WORKING WITH [employer].. HE STATED DAD HAS NO MONEY JUST THIS PROPERTY AND IT IS FOR SALE AND HAS BEEN FOR A WHILE. I ASKED HIM FOR A F/U ON HIS MEETING WITH [facility] ON FRIDAY, I PLAN TO CALL HIM MYSELF TO F/U. CECILE JOAQUIN LPN/Jaguar Rm Mar 12, 2016 09:48
--- NOTE | 2016-03-12 15:28 | PD.CONS ---
Provisional Diagnosis Admission Date Jan 20, 2016 at 10:18 Huxford I. Frontotemporal dementia with behavioral disturbances. Huxford II. Deferred Huxford III. Hypertension, UTI, GI bleeding, Huxford IV. Disinhibited behavior Huxford V. 45 History of Present Illness Service Psychiatry Consult Requested By Primary Care Physician Alexus Anglin MD HPI The patient is a 76 years old man, with psychiatric history of dementia, disinhibited behavior, history of aggressive behavior and agitation, he was hospitalized [place] in 2014, he is hospitalized now due to multiple complications of his medical conditions, such as C. difficile's, hypertension, GI bleeding, infected sacral ulcer, UTI, among others. Patient was consulted to psychiatry due to sexually inappropriate/disinhibited behavior. Patient was seen and evaluated at bedside in his room, chart was reviewed, case discussed with nursing staff and primary medical team. On evaluation patient is found laying in his bed, he is uncooperative, oppositional and resistant, seems to be apathetic, he selectively answers some questions with nodding yes or not, he denies any mood problem, denies anxiety, distress or pain, he denies suicidal or homicidal ideation, he denies visual and auditory hallucinations. No further information is obtained from the patient. Review of Systems ROS Limitations: Unresponsive, Uncooperative Past Family Social History Coded Allergies: Depakote (Verified Allergy, Severe, 01/20/16) Levaquin (Verified Allergy, Severe, 01/20/16) Olanzapine (Verified Allergy, Severe, 01/20/16) Ciprofloxacin (Verified Allergy, Intermediate, Hallucinations, 01/20/16) per pt's son Hydrocodone (Verified Allergy, Intermediate, Hallucinations, 01/20/16) per pt's son Seroquel (Verified Allergy, Intermediate, Rash, 01/20/16) Active Scripts Z.1.pantoprazole So4 40 Mg Tab40 Mg PO DAILY 30 Days Prov:Suhail Haile MD 01/31/16 Proamatine 5 Mg5 Mg 5 Mg Tab5 Mg PO TID@07,12,17 15 Days Prov:Suhail Haile MD 01/31/16 Bactrim Ds1 Tab 1 Tab Tab1 Tab PO BID 7 Days Prov:Tomi Otero MD 10/19/15 Z.0.xherpvcw419 Mg 100 Mg Wgi034 Mg PO BID 10 Days Prov:Tomi Otero MD 10/18/15 Z.0.keflex 500 Mg500 500 Mg Suw642 Mg PO TID 7 Days Prov:Rodrigo Vaca MD 10/11/15 Z.0.lortab 5/325 Ta1 1 Tab1 Tab PO Q4H PRN (PAIN) #15 TAB Ref 0 Prov:Jaguar Carranza MD 08/10/15 Reported Medications Z.0.colcrys0.6 Mg 0.6 Mg Tab0.6 Mg PEG DAILY PRN (PAIN) 08/01/15 Tylenol 325 Mg325 Mg 325 Mg Kpj935 Mg PEG Q8HR PRN (PAIN) 08/01/15 Z.0.tramadol Hcl50 M 50 Mg Tab50 Mg PEG Q12HR PRN (PAIN) 08/01/15 Z.0.pibwunjhpeo747 M 100 Mg Nzg633 Mg PEG DAILY 08/01/15 Calcium + D600 Mg 600 Mg Tab1 Tab PEG DAILY 08/01/15 Z.0.jniacl287 M1 150 Mg Wqy816 Mg PEG BID 08/01/15 Z.0.loperamide Hcl2 2 Mg Tab2 Mg PEG Q12HR PRN (DIARRHEA) DO NOT EXCEED 8 TABLETS/CAPSULES PER 24 HOURS 08/01/15 Z.0.mirtazapine7.5 M 7.5 Mg Tab7.5 Mg PEG HS 08/01/15 Current Medications Medications (Trade) Dose Ordered Sig/Gayathri Route Start Time Stop Time Status Last Admin (Tylenol) 650 mg Q4H PRN PO 01/20/16 10:15 (Zyloprim) 100 mg DAILY PEG 01/21/16 09:00 03/12/16 07:41 (Remeron) 7.5 mg HS PEG 01/20/16 21:00 03/11/16 20:15 (Pill Splitter) 1 ea UNSCH PRN OTHER 01/20/16 14:15 02/08/16 20:56 (Imodium) 2 mg Q6H PRN PO 01/21/16 12:45 02/09/16 00:04 (Lomotil Tab) 2 tab Q6H PRN PO 01/21/16 12:45 (Proamatine) 10 mg TID@,12,17 PO 02/18/16 07:00 03/12/16 11:50 (Prevacid Odt) 30 mg DAILY PEG 02/28/16 09:00 03/12/16 07:41 (Dulcolax Supp) 10 mg DAILY PRN NV 03/07/16 10:15 Physical Exam Vital Signs Vital Signs Date Time Temp Pulse Resp B/P Pulse Ox O2 Delivery O2 Flow Rate FiO2 03/12/16 08:00 97.2 70 18 116/75 94 I/O 03/11/16 03/11/16 03/12/16 08:00 16:00 00:00 Intake Total 1627 ml Output Total 300 ml 602 ml Balance -300 ml 1025 ml Mental Status Examination Mental status is limited by patient's uncooperativeness. Problem List: (1) Frontotemporal dementia with behavioral disturbance Assessment & Plan: On evaluation patient is non-cooperative, he is apathic, oppositional and resistant, refuses to answer most of our questions. By "Yes and Not" mode, patient denies anxiety, depression, perceptual disturbances, suicidal or homicidal ideation, visual and auditory hallucinations. He denies any pain or distress at this moment. Patient has a documented history of disinhibited and sexually inappropriate behavior secondary to his dementia process. He has been hospitalizing [place] in the past for this issue and he has been responsive to Depakote, however he seems to develop allergy to this medication. We will start Risperdal 0.5 mg twice a day for disinhibited/ disorganized behavior, if patient can tolerate could be increased to 1 mg twice a day. It is important to clarify that disinhibited behavior, agitation, apathy , especially sexually and inappropriate behavior and speech suggest frontotemporal dementia and There is no specific effective medication for this condition, however antipsychotics and mood stabilizers can help with the impulsiveness. ICD Code: G31.09 Assessment & Plan Estimated LOS: Enrique Angelo MD Mar 12, 2016 15:28
[2016-03-12 20:00] VITALS: BP 99/66; PULSE 78; RESP 19; TEMP 96.7; O2SAT 95
[2016-03-12] MEDS: MIRTAZAPINE 15 MG TAB PEG SCH (22:11)
[2016-03-13 05:05] LABS: MEAN CELL VOLUME 87.2 FL (80.0-100.0); MEAN CORPUSCULAR HEMOGLOBIN 28.2 PG (27.0-34.0); MEAN CORPUSCULAR HGB CONC 32.4 % (32.0-36.0); PLATELET COUNT 160 TH/MM3 (150-450); RED BLOOD COUNT 5.04 MIL/MM3 (4.50-5.90); RED CELL DISTRIBUTION WIDTH 15.9 % (11.6-17.2); WHITE BLOOD COUNT 8.3 TH/MM3 (4.0-11.0)
[2016-03-13 05:11] LABS: REVIEW FLAG FINAL
[2016-03-13] MEDS: MIDODRINE 5 MG TAB PO SCH ×3 (06:12→16:53)
[2016-03-13 08:00] VITALS: BP_SYST 134; BP_SYST 146; BP_DIAS 70; BP_DIAS 85; PULSE 79; PULSE 87; RESP 16; RESP 17; TEMP 97.7; TEMP 97.8; O2SAT 94; O2SAT 95
--- NOTE | 2016-03-13 08:15 | HHI.PR ---
Subjective Remarks Patient seen and examined today. Patient denies any new complaints. Patient did not have any inappropriate comments today. Psychiatry evaluated the patient yesterday and indicates this is a clear example of frontal dementia Objective Vitals Vital Signs Date Time Temp Pulse Resp B/P Pulse Ox O2 Delivery O2 Flow Rate FiO2 03/12/16 20:00 96.7 78 19 99/66 95 I/O 03/12/16 03/12/16 03/12/16 03/13/16 03/13/16 03/13/16 07:00 15:00 23:00 07:00 15:00 23:00 Intake Total 0 ml 0 ml Output Total 650 ml 250 ml 250 ml Balance -650 ml -250 ml -250 ml Intake Oral 0 ml 0 ml Output Urine Total 650 ml 250 ml 250 ml # Bowel Movements 1 1 1 Result Diagram: 03/13/16 0430 Objective Remarks GENERAL: Well-developed, well-nourished, in no acute distress. alert HEENT: Head is normocephalic without any lesions or masses noted. Facial features are symmetric. Eyes: Extraocular muscles are intact. Conjunctivae were clear. NECK: Supple without any masses. Trachea midline no deviation. No JVD, no bruits are appreciated CARDIAC: Regular rhythm, regular rate. S1/S2 are heard. No murmurs gallops or rubs. LUNGS: Clear to auscultation bilaterally. No wheeze, rhonchi or rales. No use of accessory muscles on inspiration or expiration. ABDOMEN: Soft, nontender. Nondistended. Bowel sounds heard in all 4 quadrants. No organomegaly or masses. Negative rebound, negative guarding, suprapubic catheter in place, PEG tube noted EXTREMITIES: No edema, pulses are equal bilaterally. No cyanosis or clubbing NEUROLOGY: Mood and affect appear appropriate. Cranial nerves II through XII grossly intact. Moving all extremities Procedures None Urinary Catheter: Yes Assessment to: Continue Soto insert reason: Prolonged Immobilization Date of Insertion: Feb 24, 2016 Vascular Central Line Catheter: No A/P Assessment and Plan Dementia with inappropriate behavior Patient was with inappropriate sexual behavior. Groping the nursing staff, indicating sexual activities, Patient has been hospitalized for similar events in 2015 Consult psychiatry for further evaluation, who indicated that this is a frontal lobe dementia Patient started on Risperdal 0.5 mg every 12 hours Upper GI bleed: Resolved. Patient had episode of 1 bloody stool on 03/06, Hemoccult-positive Hemoglobin has remained stable during his stay in the hospital GI was reconsulted and following Continue PPI. Hypotension with episodes of hypertension: Stable Blood pressure labile. Continue monitor blood pressure Continue Midodrine. Elevated BUN, stable Continue fluid flushes via PEG tube to avoid dehydration. Loose stools: Resolved. C. difficile negative. Stool culture and O&P negative. Continue Lactinex. Stage I decubitus ulcer, sacral skin tear: Continue wound care. Parkinson's disease: Patient has dementia and resting tremor. Chronic, stable. Mood disorder: Stable Continue Remeron. Mild obstructive uropathy: Resolved Appreciate urology recommendations. Suprapubic catheter in place, last changed 02/24/16. To be changed monthly. Urinary tract infection, resolved UTI: Urine culture positive for Proteus mirabilis and GBS. Patient has completed course of antibiotics. Protein calorie malnutrition: Continue tube feeds. On Jevity 1.5 at 60 ml/h. discontinue continuous tube feedings and start bolus feedings as recommended by dietitian Consulted dietitian who indicated that patient may be converted to bolus feeding and recommended Jevity 1.5, 6 cans per day. 1.5 cans that 0800 and 2000 , 1 can at 1100, 1400, 1700 Check pre-albumin level Weakness: Continue physical therapy Nursing staff to get patient up out of bed at least 3 times daily DVT prophylaxis: SCDs. Avoid chemical prophylaxis secondary to GI bleed. Discharge Planning Discharge planning to half-way facility once arrangements made by case management 03/12/16 1642 SON WORKING WITH [employer] ([facility]) TO GET MEDICAID. HAS TURNED IN ALL NEEDED INFORMATION CECILE JOAQUIN LPN/Jaguar Rm Mar 13, 2016 08:15
[2016-03-13] MEDS: LANSOPRAZOLE SOLUTAB 30 MG TAB PEG SCH (09:50)
[2016-03-13] MEDS: ALLOPURINOL 100 MG TAB PEG SCH (09:50)
--- NOTE | 2016-03-13 19:41 | HHI.GIFU ---
Subjective Remarks Patient comfortable in bed no complaints Objective Vitals I&O Vital Signs Date Time Temp Pulse Resp B/P Pulse Ox O2 Delivery O2 Flow Rate FiO2 03/13/16 08:00 97.8 87 16 134/85 95 03/12/16 20:00 96.7 78 19 99/66 95 I/O 03/12/16 03/12/16 03/12/16 03/13/16 03/13/16 03/13/16 06:59 14:59 22:59 06:59 14:59 22:59 Intake Total 0 ml 0 ml Output Total 650 ml 250 ml 250 ml 500 ml Balance -650 ml -250 ml -250 ml -500 ml Intake Oral 0 ml 0 ml Output Urine Total 650 ml 250 ml 250 ml 500 ml # Bowel Movements 1 1 1 Laboratory Laboratory Tests Test 03/13/16 04:30 White Blood Count 8.3 Red Blood Count 5.04 Hemoglobin 14.2 Hematocrit 44.0 Mean Corpuscular Volume 87.2 Mean Corpuscular Hemoglobin 28.2 Mean Corpuscular Hemoglobin 32.4 Concent Red Cell Distribution Width 15.9 Platelet Count 160 Mean Platelet Volume 10.4 Prealbumin 24 Physical Exam NECK: Neck is supple CHEST: CTA, diminished CARDIAC: RRR ABDOMEN: Soft, nondistended, nontender; PEG tube site without redness or swelling, suprapubic catheter in place. EXTREMITIES: No clubbing, cyanosis, or edema. 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 Patient then developed bloody stools on 03/06. CT of the abdomen (03/06) due to reported abdominal pain which showed a large stool ball noted within the rectum and a large amount of stool throughout the colon. Pt started moving his bowels, the bleeding is likely related to constipation/stool impaction. H/H has remained stable. No further bleeding. Pt continues to have around 2 BMs per day per nursing staff. - Malnutrition. Pt is on Jevity 1.5 at 60 ml/h. Continued TF to be changed to bolus feedings as recommended by dietitian, per attending. Jevity 1.5, 6 cans per day. 1.5 cans that 0800 and 2000, 1 can at 1100, 1400, 1700. RN reports some period issues with the PEG tube becoming clogged but this has been able to be resolved by nursing staff. - Dementia, suprapubic catheter per attending PLAN: - Cont. PPI - Monitor HH - Notify GI of bleeding - Supportive care -Constipation precautions GI will sign off at this point patient follow-up on an outpatient basis Bladimir Enriquez MD Mar 13, 2016 19:41
[2016-03-13 20:14] VITALS: BP 104/59; PULSE 70; RESP 20; TEMP 97.4; O2SAT 95
[2016-03-13] MEDS: MIRTAZAPINE 15 MG TAB PEG SCH (21:14)
[2016-03-13] MEDS: risperiDONE 0.5 MG TAB PO SCH (22:02)
[2016-03-14 08:00] VITALS: BP 138/68; PULSE 79; RESP 19; TEMP 97.9; O2SAT 97
[2016-03-14] MEDS: LANSOPRAZOLE SOLUTAB 30 MG TAB PEG SCH (08:01)
[2016-03-14] MEDS: MIDODRINE 5 MG TAB PO SCH ×3 (08:01→17:02)
[2016-03-14] MEDS: ALLOPURINOL 100 MG TAB PEG SCH (08:01)
[2016-03-14] MEDS: risperiDONE 0.5 MG TAB PO SCH ×2 (08:07→21:10)
--- NOTE | 2016-03-14 08:58 | HHI.PR ---
Subjective Remarks Patient seen and examined today. Patient denies any new complaints. No change in clinical status. Objective Vitals Vital Signs Date Time Temp Pulse Resp B/P Pulse Ox O2 Delivery O2 Flow Rate FiO2 03/14/16 08:00 97.9 79 19 138/68 97 03/13/16 20:14 97.4 70 20 104/59 95 I/O 03/13/16 03/13/16 03/13/16 03/14/16 03/14/16 03/14/16 06:59 14:59 22:59 06:59 14:59 22:59 Intake Total 0 ml 340 ml Output Total 250 ml 500 ml 300 ml 250 ml Balance -250 ml -500 ml 40 ml -250 ml Intake Oral 0 ml Tube Feeding 240 ml Tube Irrigant 100 ml Output Urine Total 250 ml 500 ml 300 ml 250 ml # Bowel Movements 1 1 0 Result Diagram: 03/13/16 0430 Objective Remarks GENERAL: Well-developed, well-nourished, in no acute distress. alert HEENT: Head is normocephalic without any lesions or masses noted. Facial features are symmetric. Eyes: Extraocular muscles are intact. Conjunctivae were clear. NECK: Supple without any masses. Trachea midline no deviation. No JVD, no bruits are appreciated CARDIAC: Regular rhythm, regular rate. S1/S2 are heard. No murmurs gallops or rubs. LUNGS: Clear to auscultation bilaterally. No wheeze, rhonchi or rales. No use of accessory muscles on inspiration or expiration. ABDOMEN: Soft, nontender. Nondistended. Bowel sounds heard in all 4 quadrants. No organomegaly or masses. Negative rebound, negative guarding, suprapubic catheter in place, PEG tube noted EXTREMITIES: No edema, pulses are equal bilaterally. No cyanosis or clubbing NEUROLOGY: Mood and affect appear appropriate. Cranial nerves II through XII grossly intact. Moving all extremities Procedures None Urinary Catheter: Yes Assessment to: Continue Soto insert reason: Prolonged Immobilization Date of Insertion: Feb 24, 2016 Vascular Central Line Catheter: No A/P Assessment and Plan Upper GI bleed: Resolved. Patient had episode of 1 bloody stool on 03/06, Hemoccult-positive Hemoglobin has remained stable during his stay in the hospital GI was reconsulted and following Continue PPI. Protein calorie malnutrition: Continue tube feeds. On Jevity 1.5 at 60 ml/h. discontinue continuous tube feedings and start bolus feedings as recommended by dietitian Consulted dietitian who indicated that patient may be converted to bolus feeding and recommended Jevity 1.5, 6 cans per day. 1.5 cans that 0800 and 2000 , 1 can at 1100, 1400, 1700 Prealbumin level 24 Dementia with inappropriate behavior, improved Patient was with inappropriate sexual behavior. Groping the nursing staff, indicating sexual activities, Patient has been hospitalized for similar events in 2015 Consult psychiatry for further evaluation, who indicated that this is a frontal lobe dementia Patient started on Risperdal 0.5 mg every 12 hours Hypotension with episodes of hypertension: Stable Blood pressure labile. Continue monitor blood pressure Continue Midodrine. Elevated BUN, stable Continue fluid flushes via PEG tube to avoid dehydration. Loose stools: Resolved. C. difficile negative. Stool culture and O&P negative. Continue Lactinex. Stage I decubitus ulcer, sacral skin tear: Continue wound care. Parkinson's disease: Patient has dementia and resting tremor. Chronic, stable. Mood disorder: Stable Continue Remeron. Mild obstructive uropathy: Resolved Appreciate urology recommendations. Suprapubic catheter in place, last changed 02/24/16. To be changed monthly. Urinary tract infection, resolved UTI: Urine culture positive for Proteus mirabilis and GBS. Patient has completed course of antibiotics. Weakness: Continue physical therapy Nursing staff to get patient up out of bed at least 3 times daily DVT prophylaxis: SCDs. Avoid chemical prophylaxis secondary to GI bleed. Discharge Planning Discharge planning to senior living facility once arrangements made by case management 03/12/16 1642 SON WORKING WITH [employer] ([facility]) TO GET MEDICAID. HAS TURNED IN ALL NEEDED INFORMATION CECILE JOAQUIN LPN/Jaguar Rm Mar 14, 2016 08:58
[2016-03-14 20:00] VITALS: BP 106/69; PULSE 81; RESP 16; TEMP 99.2; O2SAT 94
[2016-03-14] MEDS: MIRTAZAPINE 15 MG TAB PEG SCH (21:10)
[2016-03-15] MEDS: MIDODRINE 5 MG TAB PO SCH ×3 (06:29→18:49)
[2016-03-15 08:00] VITALS: BP 115/79; PULSE 63; RESP 18; TEMP 97.4; O2SAT 96
--- NOTE | 2016-03-15 08:28 | HHI.PR ---
Subjective Remarks Patient seen and examined today. Patient denies any new complaints. No change in clinical status. Objective Vitals Vital Signs Date Time Temp Pulse Resp B/P Pulse Ox O2 Delivery O2 Flow Rate FiO2 03/14/16 20:00 99.2 81 16 106/69 94 I/O 03/14/16 03/14/16 03/14/16 03/15/16 03/15/16 03/15/16 07:00 15:00 23:00 07:00 15:00 23:00 Intake Total 460 ml 460 ml Output Total 250 ml 400 ml 750 ml Balance -250 ml -400 ml 460 ml -290 ml Tube Feeding 360 ml 360 ml Other 100 ml 100 ml Output Urine Total 250 ml 400 ml 750 ml # Bowel Movements 0 2 Result Diagram: 03/13/16 0430 Objective Remarks GENERAL: Well-developed, well-nourished, in no acute distress. alert HEENT: Head is normocephalic without any lesions or masses noted. Facial features are symmetric. Eyes: Extraocular muscles are intact. Conjunctivae were clear. NECK: Supple without any masses. Trachea midline no deviation. No JVD, no bruits are appreciated CARDIAC: Regular rhythm, regular rate. S1/S2 are heard. No murmurs gallops or rubs. LUNGS: Clear to auscultation bilaterally. No wheeze, rhonchi or rales. No use of accessory muscles on inspiration or expiration. ABDOMEN: Soft, nontender. Nondistended. Bowel sounds heard in all 4 quadrants. No organomegaly or masses. Negative rebound, negative guarding, suprapubic catheter in place, PEG tube noted EXTREMITIES: No edema, pulses are equal bilaterally. No cyanosis or clubbing NEUROLOGY: Mood and affect appear appropriate. Cranial nerves II through XII grossly intact. Moving all extremities Procedures None Urinary Catheter: Yes Assessment to: Continue Soto insert reason: Prolonged Immobilization Date of Insertion: Feb 24, 2016 Vascular Central Line Catheter: No A/P Assessment and Plan Upper GI bleed: Resolved. Patient had episode of 1 bloody stool on 03/06, Hemoccult-positive Hemoglobin has remained stable during his stay in the hospital GI was reconsulted and following Continue PPI. Protein calorie malnutrition: Continue tube feeds. On Jevity 1.5 at 60 ml/h. discontinue continuous tube feedings and start bolus feedings as recommended by dietitian Consulted dietitian who indicated that patient may be converted to bolus feeding and recommended Jevity 1.5, 6 cans per day. 1.5 cans that 0800 and 2000 , 1 can at 1100, 1400, 1700 Prealbumin level 24 Dementia with inappropriate behavior, improved Patient was with inappropriate sexual behavior. Groping the nursing staff, indicating sexual activities, Patient has been hospitalized for similar events in 2014 Consulted psychiatry for further evaluation, who indicated that this is a frontal lobe dementia Continue Risperdal 0.5 mg every 12 hours Hypotension with episodes of hypertension: Stable Blood pressure labile. Continue monitor blood pressure Continue Midodrine. Elevated BUN, stable Continue fluid flushes via PEG tube to avoid dehydration. Loose stools: Resolved. C. difficile negative. Stool culture and O&P negative. Continue Lactinex. Stage I decubitus ulcer, sacral skin tear: Continue wound care. Parkinson's disease: Patient has dementia and resting tremor. Chronic, stable. Mood disorder: Stable Continue Remeron. Mild obstructive uropathy: Resolved Appreciate urology recommendations. Suprapubic catheter in place, last changed 02/24/16. To be changed monthly. Urinary tract infection, resolved UTI: Urine culture positive for Proteus mirabilis and GBS. Patient has completed course of antibiotics. Weakness: Continue physical therapy Nursing staff to get patient up out of bed at least 3 times daily DVT prophylaxis: SCDs. Avoid chemical prophylaxis secondary to GI bleed. Discharge Planning Discharge planning to long-term facility once arrangements made by case management 03/14/16 PATIENT CONTINUES HOSPITALIZATION FOR GI BLEED. PATIENT HAS ONE EPISODE ON 03/06 OF HEMOCCULT POSITIVE STOOL BUT H & H REMAIN STABLE. TUBE FEEDINGS CONTINUE WITH BOLUS FEEDINGS RECOMMENDED BY FARO DEALER. PATIENT HAS HAD EPISODES OF INAPPROPRIATE SEXUAL BEHAVIOR INDICATING SEXUAL ACTIVITIES WITH THE NURSING STAFF. PSYCHIATRY WAS CONSULTED AND IT WAS INDICATED THAT THIS IS A FRONTAL LOBE DEMENTIA WITH MAY HAVE SOME BEARING ON FINDING PLACEMENT. THE SON HAS TURNED IN ALL REQUIRED INFORMATION TO CHANGE HEALTHCARE FOR MEDICAID APPROVAL. CM FOLLOWING. Jaguar Walker Mar 15, 2016 08:28
[2016-03-15] MEDS: risperiDONE 0.5 MG TAB PO SCH ×2 (10:40→21:00)
[2016-03-15] MEDS: LANSOPRAZOLE SOLUTAB 30 MG TAB PEG SCH (10:40)
[2016-03-15] MEDS: ALLOPURINOL 100 MG TAB PEG SCH (10:44)
[2016-03-15 20:00] VITALS: BP 115/83; PULSE 88; RESP 16; TEMP 98; O2SAT 95
[2016-03-15] MEDS: MIRTAZAPINE 15 MG TAB PEG SCH (21:00)
[2016-03-16] VITALS: BP 109/75; PULSE 93; RESP 16; TEMP 97.6; O2SAT 95
[2016-03-16] MEDS: MIDODRINE 5 MG TAB PO SCH ×3 (05:05→18:19)
[2016-03-16 08:04] VITALS: BP 111/78; PULSE 59; RESP 16; TEMP 98; O2SAT 96
--- NOTE | 2016-03-16 08:55 | HHI.PR ---
Subjective Remarks Patient seen and examined today. Patient has any new complaints. No change in clinical status. Objective Vitals Vital Signs Date Time Temp Pulse Resp B/P Pulse Ox O2 Delivery O2 Flow Rate FiO2 03/16/16 00:00 97.6 93 16 109/75 95 03/15/16 20:00 98.0 88 16 115/83 95 I/O 03/15/16 03/15/16 03/15/16 03/16/16 03/16/16 03/16/16 07:00 15:00 23:00 07:00 15:00 23:00 Intake Total 460 ml 720 ml 100 ml Output Total 750 ml 700 ml 1150 ml Balance -290 ml 20 ml -1050 ml Tube Feeding 360 ml 720 ml Other 100 ml 100 ml Output Urine Total 750 ml 700 ml 1150 ml # Bowel Movements 2 0 1 Result Diagram: 03/13/16 0430 Objective Remarks GENERAL: Well-developed, well-nourished, in no acute distress. alert HEENT: Head is normocephalic without any lesions or masses noted. Facial features are symmetric. Eyes: Extraocular muscles are intact. Conjunctivae were clear. NECK: Supple without any masses. Trachea midline no deviation. No JVD, no bruits are appreciated CARDIAC: Regular rhythm, regular rate. S1/S2 are heard. No murmurs gallops or rubs. LUNGS: Clear to auscultation bilaterally. No wheeze, rhonchi or rales. No use of accessory muscles on inspiration or expiration. ABDOMEN: Soft, nontender. Nondistended. Bowel sounds heard in all 4 quadrants. No organomegaly or masses. Negative rebound, negative guarding, suprapubic catheter in place, PEG tube noted EXTREMITIES: No edema, pulses are equal bilaterally. No cyanosis or clubbing NEUROLOGY: Mood and affect appear appropriate. Cranial nerves II through XII grossly intact. Moving all extremities Procedures None Urinary Catheter: No Date of Insertion: Feb 24, 2016 Vascular Central Line Catheter: No A/P Assessment and Plan Upper GI bleed: Resolved. Patient had episode of 1 bloody stool on 03/06, Hemoccult-positive Hemoglobin has remained stable during his stay in the hospital GI was reconsulted and following Continue PPI. Protein calorie malnutrition: Continue tube feeds. On Jevity 1.5 at 60 ml/h. discontinue continuous tube feedings and start bolus feedings as recommended by dietitian Consulted dietitian who indicated that patient may be converted to bolus feeding and recommended Jevity 1.5, 6 cans per day. 1.5 cans that 0800 and 2000 , 1 can at 1100, 1400, 1700 Prealbumin level 24 Dementia with inappropriate behavior, improved Patient was with inappropriate sexual behavior. Groping the nursing staff, indicating sexual activities, Patient has been hospitalized for similar events in 2014 Consulted psychiatry for further evaluation, who indicated that this is a frontal lobe dementia Continue Risperdal 0.5 mg every 12 hours Hypotension with episodes of hypertension: Stable Blood pressure labile. Continue monitor blood pressure Continue Midodrine. Elevated BUN, stable Continue fluid flushes via PEG tube to avoid dehydration. Loose stools: Resolved. C. difficile negative. Stool culture and O&P negative. Continue Lactinex. Stage I decubitus ulcer, sacral skin tear: Continue wound care. Parkinson's disease: Patient has dementia and resting tremor. Chronic, stable. Mood disorder: Stable Continue Remeron. Mild obstructive uropathy: Resolved Appreciate urology recommendations. Suprapubic catheter in place, last changed 02/24/16. To be changed monthly. Urinary tract infection, resolved UTI: Urine culture positive for Proteus mirabilis and GBS. Patient has completed course of antibiotics. Weakness: Continue physical therapy Nursing staff to get patient up out of bed at least 3 times daily DVT prophylaxis: SCDs. Avoid chemical prophylaxis secondary to GI bleed. Discharge Planning Discharge planning to residential facility once arrangements made by case management 03/14/16 PATIENT CONTINUES HOSPITALIZATION FOR GI BLEED. PATIENT HAS ONE EPISODE ON 03/06 OF HEMOCCULT POSITIVE STOOL BUT H & H REMAIN STABLE. TUBE FEEDINGS CONTINUE WITH BOLUS FEEDINGS RECOMMENDED BY HIM CODER. PATIENT HAS HAD EPISODES OF INAPPROPRIATE SEXUAL BEHAVIOR INDICATING SEXUAL ACTIVITIES WITH THE NURSING STAFF. PSYCHIATRY WAS CONSULTED AND IT WAS INDICATED THAT THIS IS A FRONTAL LOBE DEMENTIA WITH MAY HAVE SOME BEARING ON FINDING PLACEMENT. THE SON HAS TURNED IN ALL REQUIRED INFORMATION TO CHANGE HEALTHCARE FOR MEDICAID APPROVAL. CM FOLLOWING. Jaguar Walker Mar 16, 2016 08:55
[2016-03-16] MEDS: LANSOPRAZOLE SOLUTAB 30 MG TAB PEG SCH (10:03)
[2016-03-16] MEDS: risperiDONE 0.5 MG TAB PO SCH ×2 (10:03→21:00)
[2016-03-16] MEDS: ALLOPURINOL 100 MG TAB PEG SCH (10:05)
[2016-03-16 20:00] VITALS: BP 110/74; PULSE 51; RESP 15; TEMP 97.6; O2SAT 97
[2016-03-16] MEDS: MIRTAZAPINE 15 MG TAB PEG SCH (21:00)
[2016-03-17] MEDS: MIDODRINE 5 MG TAB PO SCH ×3 (06:01→18:06)
[2016-03-17 08:04] VITALS: BP 108/69; PULSE 78; RESP 20; TEMP 98.3; O2SAT 97
--- NOTE | 2016-03-17 08:44 | HHI.PR ---
Subjective Remarks Patient seen and examined today. Nursing staff indicates patient more somnolent now since the starting of Risperdal Objective Vitals Vital Signs Date Time Temp Pulse Resp B/P Pulse Ox O2 Delivery O2 Flow Rate FiO2 03/16/16 20:00 97.6 51 15 110/74 97 I/O 03/16/16 03/16/16 03/16/16 03/17/16 03/17/16 03/17/16 07:00 15:00 23:00 07:00 15:00 23:00 Intake Total 100 ml 1265 ml 460 ml Output Total 1150 ml 620 ml 600 ml Balance -1050 ml -620 ml 665 ml 460 ml Tube Feeding 1215 ml 360 ml Tube Irrigant 50 ml Other 100 ml 100 ml Output Urine Total 1150 ml 620 ml 600 ml # Bowel Movements 1 Result Diagram: 03/13/16 0430 Objective Remarks GENERAL: Well-developed, well-nourished, in no acute distress. alert HEENT: Head is normocephalic without any lesions or masses noted. Facial features are symmetric. Eyes: Extraocular muscles are intact. Conjunctivae were clear. NECK: Supple without any masses. Trachea midline no deviation. No JVD, no bruits are appreciated CARDIAC: Regular rhythm, regular rate. S1/S2 are heard. No murmurs gallops or rubs. LUNGS: Clear to auscultation bilaterally. No wheeze, rhonchi or rales. No use of accessory muscles on inspiration or expiration. ABDOMEN: Soft, nontender. Nondistended. Bowel sounds heard in all 4 quadrants. No organomegaly or masses. Negative rebound, negative guarding, suprapubic catheter in place, PEG tube noted EXTREMITIES: No edema, pulses are equal bilaterally. No cyanosis or clubbing NEUROLOGY: Mood and affect appear appropriate. Cranial nerves II through XII grossly intact. Moving all extremities Procedures None Urinary Catheter: Yes (suprapubic catheter) Assessment to: Continue Soto insert reason: Prolonged Immobilization Date of Insertion: Feb 24, 2016 A/P Assessment and Plan Upper GI bleed: Resolved. Patient had episode of 1 bloody stool on 03/06, Hemoccult-positive Hemoglobin has remained stable during his stay in the hospital GI was reconsulted and following Continue PPI. Protein calorie malnutrition: Continue tube feeds. On Jevity 1.5 at 60 ml/h. discontinue continuous tube feedings and start bolus feedings as recommended by dietitian Consulted dietitian who indicated that patient may be converted to bolus feeding and recommended Jevity 1.5, 6 cans per day. 1.5 cans that 0800 and 2000 , 1 can at 1100, 1400, 1700 Prealbumin level 24 Dementia with inappropriate behavior, patient more somnolent today, likely secondary to medication use, patient is afebrile, no tachycardia, no signs of infection. Patient was with inappropriate sexual behavior. Groping the nursing staff, indicating sexual activities, Patient has been hospitalized for similar events in 2014 Consulted psychiatry for further evaluation, who indicated that this is a frontal lobe dementia Continue Risperdal 0.5 mg every 12 hours, decreased to 0.25 mg every 12 hours Hypotension with episodes of hypertension: Stable Blood pressure labile. Continue monitor blood pressure Continue Midodrine. Elevated BUN, stable Continue fluid flushes via PEG tube to avoid dehydration. Loose stools: Resolved. C. difficile negative. Stool culture and O&P negative. Continue Lactinex. Stage I decubitus ulcer, sacral skin tear: Continue wound care. Parkinson's disease: Patient has dementia and resting tremor. Chronic, stable. Mood disorder: Stable Continue Remeron. Mild obstructive uropathy: Resolved Appreciate urology recommendations. Suprapubic catheter in place, last changed 02/24/16. To be changed monthly. Urinary tract infection, resolved UTI: Urine culture positive for Proteus mirabilis and GBS. Patient has completed course of antibiotics. Weakness: Continue physical therapy Nursing staff to get patient up out of bed at least 3 times daily DVT prophylaxis: SCDs. Avoid chemical prophylaxis secondary to GI bleed. Discharge Planning Discharge planning to long term facility once arrangements made by case management 03/14/16 PATIENT CONTINUES HOSPITALIZATION FOR GI BLEED. PATIENT HAS ONE EPISODE ON 03/06 OF HEMOCCULT POSITIVE STOOL BUT H & H REMAIN STABLE. TUBE FEEDINGS CONTINUE WITH BOLUS FEEDINGS RECOMMENDED BY BED AND BREAKFAST INNKEEPER. PATIENT HAS HAD EPISODES OF INAPPROPRIATE SEXUAL BEHAVIOR INDICATING SEXUAL ACTIVITIES WITH THE NURSING STAFF. PSYCHIATRY WAS CONSULTED AND IT WAS INDICATED THAT THIS IS A FRONTAL LOBE DEMENTIA WITH MAY HAVE SOME BEARING ON FINDING PLACEMENT. THE SON HAS TURNED IN ALL REQUIRED INFORMATION TO CHANGE HEALTHCARE FOR MEDICAID APPROVAL. CM FOLLOWING. Jaguar Walker Mar 17, 2016 08:44
[2016-03-17] MEDS: risperiDONE 0.5 MG TAB PO SCH (09:32)
[2016-03-17] MEDS: ALLOPURINOL 100 MG TAB PEG SCH (09:32)
[2016-03-17] MEDS: LANSOPRAZOLE SOLUTAB 30 MG TAB PEG SCH (09:32)
[2016-03-17 20:00] VITALS: BP 102/69; PULSE 78; RESP 18; TEMP 97.7; O2SAT 95
[2016-03-17] MEDS: MIRTAZAPINE 15 MG TAB PEG SCH (21:20)
[2016-03-17] MEDS: risperiDONE 0.25 MG TAB PO SCH (21:21)
[2016-03-18] MEDS: MIDODRINE 5 MG TAB PO SCH ×3 (05:08→17:00)
[2016-03-18 08:00] VITALS: BP 133/70; PULSE 80; RESP 16; TEMP 98.2; O2SAT 96
--- NOTE | 2016-03-18 08:21 | HHI.PR ---
Subjective Remarks Patient seen and examined today. Patient more alert this morning and yesterday. Patient denies any new complaints Objective Vitals Vital Signs Date Time Temp Pulse Resp B/P Pulse Ox O2 Delivery O2 Flow Rate FiO2 03/17/16 20:00 97.7 78 18 102/69 95 I/O 03/17/16 03/17/16 03/17/16 03/18/16 03/18/16 03/18/16 07:00 15:00 23:00 07:00 15:00 23:00 Intake Total 460 ml 240 ml 1800 ml 310 ml Output Total 300 ml 600 ml 750 ml Balance 460 ml -60 ml 1200 ml -440 ml Intake Oral 0 ml Tube Feeding 360 ml 1200 ml Other 100 ml 240 ml 600 ml 310 ml Output Urine Total 300 ml 600 ml 750 ml # Bowel Movements 2 2 1 Objective Remarks GENERAL: Well-developed, well-nourished, in no acute distress. More alert today HEENT: Head is normocephalic without any lesions or masses noted. Facial features are symmetric. Eyes: Extraocular muscles are intact. Conjunctivae were clear. NECK: Supple without any masses. Trachea midline no deviation. No JVD, no bruits are appreciated CARDIAC: Regular rhythm, regular rate. S1/S2 are heard. No murmurs gallops or rubs. LUNGS: Clear to auscultation bilaterally. No wheeze, rhonchi or rales. No use of accessory muscles on inspiration or expiration. ABDOMEN: Soft, nontender. Nondistended. Bowel sounds heard in all 4 quadrants. No organomegaly or masses. Negative rebound, negative guarding, suprapubic catheter in place, PEG tube noted EXTREMITIES: No edema, pulses are equal bilaterally. No cyanosis or clubbing NEUROLOGY: Mood and affect appear appropriate. Cranial nerves II through XII grossly intact. Moving all extremities Procedures None Urinary Catheter: Yes (suprapubic catheter) Assessment to: Continue Soto insert reason: Prolonged Immobilization Date of Insertion: Feb 24, 2016 Vascular Central Line Catheter: No A/P Assessment and Plan Upper GI bleed: Resolved. Patient had episode of 1 bloody stool on 03/06, Hemoccult-positive Hemoglobin has remained stable during his stay in the hospital GI was reconsulted and following Continue PPI. Protein calorie malnutrition: Continue tube feeds. On Jevity 1.5 at 60 ml/h. discontinue continuous tube feedings and start bolus feedings as recommended by dietitian Consulted dietitian who indicated that patient may be converted to bolus feeding and recommended Jevity 1.5, 6 cans per day. 1.5 cans that 0800 and 2000 , 1 can at 1100, 1400, 1700 Prealbumin level 24 Dementia with inappropriate behavior, patient more somnolent today, likely secondary to medication use, patient is afebrile, no tachycardia, no signs of infection. Patient was with inappropriate sexual behavior. Groping the nursing staff, indicating sexual activities, Patient has been hospitalized for similar events in 2014 Consulted psychiatry for further evaluation, who indicated that this is a frontal lobe dementia Changed to Risperdal 0.25 mg every 12 hours due to somnolence, decreased level consciousness, which has improved with medication change Hypotension with episodes of hypertension: Stable Blood pressure labile. Continue monitor blood pressure Continue Midodrine. Elevated BUN, stable Continue fluid flushes via PEG tube to avoid dehydration. Loose stools: Resolved. C. difficile negative. Stool culture and O&P negative. Continue Lactinex. Stage I decubitus ulcer, sacral skin tear: Continue wound care. Parkinson's disease: Patient has dementia and resting tremor. Chronic, stable. Mood disorder: Stable Continue Remeron. Mild obstructive uropathy: Resolved Appreciate urology recommendations. Suprapubic catheter in place, last changed 02/24/16. To be changed monthly. Urinary tract infection, resolved UTI: Urine culture positive for Proteus mirabilis and GBS. Patient has completed course of antibiotics. Weakness: Continue physical therapy Nursing staff to get patient up out of bed at least 3 times daily DVT prophylaxis: SCDs. Avoid chemical prophylaxis secondary to GI bleed. Discharge Planning Discharge planning to retirement facility once arrangements made by case management 03/14/16 PATIENT CONTINUES HOSPITALIZATION FOR GI BLEED. PATIENT HAS ONE EPISODE ON 03/06 OF HEMOCCULT POSITIVE STOOL BUT H & H REMAIN STABLE. TUBE FEEDINGS CONTINUE WITH BOLUS FEEDINGS RECOMMENDED BY SPORTS CARTOONIST. PATIENT HAS HAD EPISODES OF INAPPROPRIATE SEXUAL BEHAVIOR INDICATING SEXUAL ACTIVITIES WITH THE NURSING STAFF. PSYCHIATRY WAS CONSULTED AND IT WAS INDICATED THAT THIS IS A FRONTAL LOBE DEMENTIA WITH MAY HAVE SOME BEARING ON FINDING PLACEMENT. THE SON HAS TURNED IN ALL REQUIRED INFORMATION TO CHANGE HEALTHCARE FOR MEDICAID APPROVAL. CM FOLLOWING. Jaguar Walker Mar 18, 2016 08:21
[2016-03-18] MEDS: risperiDONE 0.25 MG TAB PO SCH ×2 (09:00→21:38)
[2016-03-18] MEDS: LANSOPRAZOLE SOLUTAB 30 MG TAB PEG SCH (10:17)
[2016-03-18] MEDS: ALLOPURINOL 100 MG TAB PEG SCH (10:18)
[2016-03-18 18:00] VITALS: BP 100/59; PULSE 77; RESP 16; TEMP 98.6; O2SAT 94
[2016-03-18] MEDS: MIRTAZAPINE 15 MG TAB PEG SCH (21:37)
[2016-03-19] MEDS: MIDODRINE 5 MG TAB PO SCH ×3 (06:42→17:00)
[2016-03-19] MEDS: ALLOPURINOL 100 MG TAB PEG SCH (09:30)
[2016-03-19] MEDS: LANSOPRAZOLE SOLUTAB 30 MG TAB PEG SCH (09:31)
[2016-03-19] MEDS: risperiDONE 0.25 MG TAB PO SCH ×2 (09:31→22:10)
[2016-03-19 09:40] VITALS: BP 110/62; PULSE 75; RESP 19; TEMP 98.5; O2SAT 94
--- NOTE | 2016-03-19 18:29 | HHI.PR ---
Subjective Remarks No acute complaints. No change in clinical status. In regards to hordeolum R eye, patient denies pain. Objective Vitals Vital Signs Date Time Temp Pulse Resp B/P Pulse Ox O2 Delivery O2 Flow Rate FiO2 03/19/16 09:40 98.5 75 19 110/62 94 I/O 03/18/16 03/18/16 03/18/16 03/19/16 03/19/16 03/19/16 07:00 15:00 23:00 07:00 15:00 23:00 Intake Total 310 ml 880 ml 600 ml Output Total 750 ml 500 ml 951 ml 350 ml Balance -440 ml 380 ml -351 ml -350 ml Intake Oral 0 ml Tube Feeding 480 ml 360 ml Other 310 ml 400 ml 240 ml Output Urine Total 750 ml 500 ml 950 ml 350 ml Stool Total 1 ml # Bowel Movements 1 1 1 Objective Remarks GENERAL: Well developed male in no apparent distress. EYES: R pupil normal. No conjunctival injection. The right upper eyelid is erythematous with a nodule present, but improved from prior exam, now non- tender. No drainage. No preseptal erythema or swelling. CARDIOVASCULAR: Regular rate and rhythm. RESPIRATORY: Limited anterior exam. No accessory muscle use. Clear to auscultation bilaterally. GASTROINTESTINAL: Normoactive bowel sounds. Abdomen soft, non-tender, non- distended. NEUROLOGICAL: Awake and alert. PSYCHIATRIC: Nods his head to questions. Chooses not speak. Procedures None Urinary Catheter: Yes Assessment to: Continue Soto insert reason: Prolonged Immobilization Date of Insertion: Feb 24, 2016 A/P Problem List: (1) GI bleed ICD Code: K92.2 Status: Resolved (2) Essential tremor ICD Code: G25.0 Status: Chronic (3) Dementia ICD Code: F03.90 Status: Chronic (4) Parkinson disease ICD Code: G20 Status: Chronic (5) Hypotension ICD Code: I95.9 Status: Resolved (6) Loose stools ICD Code: R19.5 Status: Resolved (7) Hordeolum of right upper eyelid ICD Code: H00.011 Status: Acute Assessment and Plan Upper GI bleed resolved. Developed bloody stools on 03/06. Hemoccult positive. Resolved. Hemoglobin has remained stable. Continue PPI. CT of the abdomen was performed 03/06 due to reported abdominal pain yesterday, to evaluate for infection. This shows a large stool ball noted within the rectum and a large amount of stool throughout the colon. Patient has had adequate BMs. GI evaluated patient and states bleeding is likely related to constipation/ stool impaction. Protein calorie malnutrition: Continue tube feeds. On Jevity 1.5 at 60 ml/h. Continuous tube feedings discontinued and bolus feedings started as recommended by dietitian Consulted dietitian who indicated that patient may be converted to bolus feeding and recommended Jevity 1.5, 6 cans per day. 1.5 cans at 0800 and 2000, 1 can at 1100, 1400, 1700. Prealbumin level 24 Dementia with inappropriate behavior, Patient with inappropriate sexual behavior. Groping the nursing staff, indicating sexual activities Patient has been hospitalized for similar events in 2015 Consulted psychiatry for further evaluation, who indicated that this is a frontal lobe dementia Continue Risperdal 0.25 mg every 12 hours instead of 0.5 mg due to somnolence. No somnolence today. Hordeolum: Patient has a hordeolum of the right upper eyelid. There is no evidence of preseptal cellulitis. Improved. -Continue warm compresses qid Hypotension with episodes of hypertension: Currently stable. Blood pressure labile. Continue to monitor. Continue Midodrine. Elevated BUN, stable Continue fluid flushes via PEG tube to avoid dehydration. Loose stools: Resolved. C. difficile negative. Stool culture and O&P negative. Continue Lactinex. Stage I decubitus ulcer, sacral skin tear: Continue wound care. Parkinson's disease: Patient has dementia and resting tremor. Chronic, stable. Mood disorder: Stable Continue Remeron. Mild obstructive uropathy: Resolved Appreciate urology recommendations. Suprapubic catheter in place, last changed 02/24/16. To be changed monthly. Abdominal pelvis CT 03/06/16 shows resolution of right sided hydronephrosis. Urinary tract infection, resolved Urine culture positive for Proteus mirabilis and GBS. Patient has completed course of antibiotics. Abdominal pelvis CT 03/06 shows decompressed bladder with circumferential bladder wall thickening and intraluminal air possibly indicating cystitis, but the patient has been afebrile with normal WBC count. No treatment indicated. Weakness: Continue physical therapy Nursing staff to get patient up out of bed at least 3 times daily DVT prophylaxis: SCDs. Avoid chemical prophylaxis secondary to GI bleed. Discharge Planning cost manager working on long-term care placement. Documentation to [facility]/Medicaid for review. PT recommends rehabilitation. Problem Qualifiers (1) Hordeolum of right upper eyelid: Qualified Code: H00.011 - Hordeolum of right upper eyelid, unspecified hordeolum type Madeline Ortez Mar 19, 2016 18:29
[2016-03-19 20:00] VITALS: BP 103/63; PULSE 73; RESP 18; TEMP 97.8; O2SAT 95
[2016-03-19] MEDS: MIRTAZAPINE 15 MG TAB PEG SCH (22:10)
[2016-03-20] MEDS: MIDODRINE 5 MG TAB PO SCH ×3 (06:18→17:00)
[2016-03-20 08:00] VITALS: BP 100/65; PULSE 93; RESP 20; TEMP 98.1; O2SAT 97
[2016-03-20] MEDS: ALLOPURINOL 100 MG TAB PEG SCH (09:32)
[2016-03-20] MEDS: LANSOPRAZOLE SOLUTAB 30 MG TAB PEG SCH (09:32)
[2016-03-20] MEDS: risperiDONE 0.25 MG TAB PO SCH ×2 (09:32→20:38)
--- NOTE | 2016-03-20 10:27 | HHI.PR ---
Subjective Remarks No acute complaints. No change in clinical status. Objective Vitals Vital Signs Date Time Temp Pulse Resp B/P Pulse Ox O2 Delivery O2 Flow Rate FiO2 03/20/16 08:00 98.1 93 20 100/65 97 03/19/16 20:00 97.8 73 18 103/63 95 I/O 03/19/16 03/19/16 03/19/16 03/20/16 03/20/16 03/20/16 07:00 15:00 23:00 07:00 15:00 23:00 Intake Total 600 ml 640 ml 200 ml Output Total 951 ml 350 ml 350 ml 325 ml Balance -351 ml -350 ml 290 ml -125 ml Intake Oral 0 ml Tube Feeding 360 ml 360 ml Tube Irrigant 280 ml 200 ml Other 240 ml Output Urine Total 950 ml 350 ml 350 ml 325 ml Stool Total 1 ml # Bowel Movements 1 1 1 2 Objective Remarks GENERAL: Well developed male in no apparent distress. EYES: R pupil normal. No conjunctival injection. The right upper eyelid is erythematous with a nodule present. No drainage. No preseptal erythema or swelling. CARDIOVASCULAR: Regular rate and rhythm. RESPIRATORY: Limited anterior exam. No accessory muscle use. Clear to auscultation bilaterally. GASTROINTESTINAL: Abdomen soft, non-tender, non-distended. NEUROLOGICAL: Awake and alert. PSYCHIATRIC: Nods his head to questions. Chooses not speak. Procedures None Urinary Catheter: No Date of Insertion: Feb 24, 2016 Vascular Central Line Catheter: No A/P Problem List: (1) GI bleed ICD Code: K92.2 Status: Resolved (2) Essential tremor ICD Code: G25.0 Status: Chronic (3) Dementia ICD Code: F03.90 Status: Chronic (4) Parkinson disease ICD Code: G20 Status: Chronic (5) Hypotension ICD Code: I95.9 Status: Resolved (6) Loose stools ICD Code: R19.5 Status: Resolved (7) Hordeolum of right upper eyelid ICD Code: H00.011 Status: Acute Assessment and Plan Upper GI bleed resolved. Developed bloody stools on 03/06. Hemoccult positive. Resolved. Hemoglobin has remained stable. Continue PPI. CT of the abdomen was performed 03/06 due to reported abdominal pain yesterday, to evaluate for infection. This shows a large stool ball noted within the rectum and a large amount of stool throughout the colon. Patient has had adequate BMs. GI evaluated patient and states bleeding is likely related to constipation/ stool impaction. Protein calorie malnutrition: Account Contact Associate evaluated patient 03/19. Continue bolus feeds with free water flushes. Prealbumin level 24 Dementia with inappropriate behavior, Patient with inappropriate sexual behavior. Groping the nursing staff, indicating sexual activities Patient has been hospitalized for similar events in 2015 Consulted psychiatry for further evaluation, who indicated that this is a frontal lobe dementia Continue Risperdal 0.25 mg every 12 hours instead of 0.5 mg due to somnolence. No somnolence today. Hordeolum: Patient has a hordeolum of the right upper eyelid. There is no evidence of preseptal cellulitis. Improved. -Continue warm compresses qid Hypotension with episodes of hypertension: Currently stable. Blood pressure labile. Continue to monitor. Continue Midodrine. Elevated BUN, stable Continue fluid flushes via PEG tube to avoid dehydration. Loose stools: Resolved. C. difficile negative. Stool culture and O&P negative. Continue Lactinex. Stage I decubitus ulcer, sacral skin tear: Continue wound care. Parkinson's disease: Patient has dementia and resting tremor. Chronic, stable. Mood disorder: Stable Continue Remeron. Mild obstructive uropathy: Resolved Appreciate urology recommendations. Suprapubic catheter in place, last changed 02/24/16. To be changed monthly. Abdominal pelvis CT 03/06/16 shows resolution of right sided hydronephrosis. Urinary tract infection, resolved Urine culture positive for Proteus mirabilis and GBS. Patient has completed course of antibiotics. Abdominal pelvis CT 03/06 shows decompressed bladder with circumferential bladder wall thickening and intraluminal air possibly indicating cystitis, but the patient has been afebrile with normal WBC count. No treatment indicated. Weakness: Continue physical therapy Nursing staff to get patient up out of bed at least 3 times daily DVT prophylaxis: SCDs. Avoid chemical prophylaxis secondary to GI bleed. Discharge Planning resident care manager rn working on long-term care placement. Awaiting SSI/Medicaid to review documentation. PT recommends rehabilitation. Problem Qualifiers (1) Hordeolum of right upper eyelid: Qualified Code: H00.011 - Hordeolum of right upper eyelid, unspecified hordeolum type Madeline Ortez Mar 20, 2016 10:27
[2016-03-20 20:00] VITALS: BP 103/68; PULSE 86; RESP 18; TEMP 97.9; O2SAT 95
[2016-03-20] MEDS: MIRTAZAPINE 15 MG TAB PEG SCH (20:38)
[2016-03-21] MEDS: MIDODRINE 5 MG TAB PO SCH ×3 (06:47→18:29)
[2016-03-21 08:00] VITALS: BP 130/88; PULSE 88; RESP 16; TEMP 98.1; O2SAT 95
[2016-03-21] MEDS: LANSOPRAZOLE SOLUTAB 30 MG TAB PEG SCH (09:25)
[2016-03-21] MEDS: ALLOPURINOL 100 MG TAB PEG SCH (09:26)
[2016-03-21] MEDS: risperiDONE 0.25 MG TAB PO SCH ×2 (09:31→20:37)
--- NOTE | 2016-03-21 10:21 | HHI.PR ---
Subjective Remarks No acute complaints. No change in clinical status. Denies any eye pain. Objective Vitals Vital Signs Date Time Temp Pulse Resp B/P Pulse Ox O2 Delivery O2 Flow Rate FiO2 03/21/16 08:00 98.1 88 16 130/88 95 03/20/16 20:00 97.9 86 18 103/68 95 I/O 03/20/16 03/20/16 03/20/16 03/21/16 03/21/16 03/21/16 07:00 15:00 23:00 07:00 15:00 23:00 Intake Total 200 ml 560 ml 250 ml Output Total 325 ml 500 ml 425 ml 550 ml 0 ml Balance -125 ml -500 ml 135 ml -300 ml 0 ml Intake Oral 0 ml Tube Feeding 360 ml 0 ml Tube Irrigant 200 ml 200 ml 250 ml Output Urine Total 325 ml 500 ml 425 ml 550 ml Tube Feeding Residual Discard 0 ml # Bowel Movements 2 1 2 2 Objective Remarks GENERAL: Well developed male in no apparent distress. EYES: R pupil normal. No conjunctival injection. The right upper eyelid is erythematous with a nodule present. No drainage. No preseptal erythema or swelling. CARDIOVASCULAR: Regular rate and rhythm. RESPIRATORY: Limited anterior exam. No accessory muscle use. Clear to auscultation bilaterally. GASTROINTESTINAL: Abdomen soft, non-tender, non-distended. Feeding tube and suprapubic catheter present. NEUROLOGICAL: Awake and alert. PSYCHIATRIC: Nods his head to questions. Chooses not speak. Procedures None Urinary Catheter: Yes Assessment to: Continue Soto insert reason: Obstruction/Retention Date of Insertion: Feb 24, 2016 Vascular Central Line Catheter: No A/P Problem List: (1) GI bleed ICD Code: K92.2 Status: Resolved (2) Essential tremor ICD Code: G25.0 Status: Chronic (3) Dementia ICD Code: F03.90 Status: Chronic (4) Parkinson disease ICD Code: G20 Status: Chronic (5) Hypotension ICD Code: I95.9 Status: Resolved (6) Loose stools ICD Code: R19.5 Status: Resolved (7) Hordeolum of right upper eyelid ICD Code: H00.011 Status: Acute Assessment and Plan Upper GI bleed resolved. Developed bloody stools on 03/06. Hemoccult positive. Resolved. Hemoglobin has remained stable. Continue PPI. CT of the abdomen was performed 03/06 due to reported abdominal pain yesterday, to evaluate for infection. This shows a large stool ball noted within the rectum and a large amount of stool throughout the colon. Patient has had adequate BMs. GI evaluated patient and states bleeding is likely related to constipation/ stool impaction. Protein calorie malnutrition: Nutrition Associate evaluated patient 03/19. Continue bolus feeds with free water flushes. Prealbumin level 24 Dementia with inappropriate behavior, Patient with inappropriate sexual behavior. Groping the nursing staff, indicating sexual activities Patient has been hospitalized for similar events in 2014 Consulted psychiatry for further evaluation, who indicated that this is a frontal lobe dementia Continue Risperdal 0.25 mg every 12 hours instead of 0.5 mg due to somnolence. No somnolence today. Hordeolum: Patient has a hordeolum of the right upper eyelid. There is no evidence of preseptal cellulitis. Improved. -Continue warm compresses qid Hypotension with episodes of hypertension: Currently stable. Blood pressure labile. Continue to monitor. Continue Midodrine. Elevated BUN, stable Continue fluid flushes via PEG tube to avoid dehydration. Loose stools: Resolved. C. difficile negative. Stool culture and O&P negative. Continue Lactinex. Stage I decubitus ulcer, sacral skin tear: Continue wound care. Parkinson's disease: Patient has dementia and resting tremor. Chronic, stable. Mood disorder: Stable Continue Remeron. Mild obstructive uropathy: Resolved Appreciate urology recommendations. Suprapubic catheter in place, last changed 02/24/16. To be changed monthly, next time 03/23. Abdominal pelvis CT 03/06/16 shows resolution of right sided hydronephrosis. Urinary tract infection, resolved Urine culture positive for Proteus mirabilis and GBS. Patient has completed course of antibiotics. Abdominal pelvis CT 03/06 shows decompressed bladder with circumferential bladder wall thickening and intraluminal air possibly indicating cystitis, but the patient has been afebrile with normal WBC count. No treatment indicated. Weakness: Continue physical therapy Nursing staff to get patient up out of bed at least 3 times daily DVT prophylaxis: SCDs. Avoid chemical prophylaxis secondary to GI bleed. Discharge Planning manager fiber working on long-term care placement. Awaiting SSI/Medicaid to review documentation. PT recommends rehabilitation. Problem Qualifiers (1) Hordeolum of right upper eyelid: Qualified Code: H00.011 - Hordeolum of right upper eyelid, unspecified hordeolum type Madeline Ortez Mar 21, 2016 10:21
[2016-03-21 20:00] VITALS: BP 105/63; PULSE 72; RESP 20; TEMP 97.6; O2SAT 98
[2016-03-21] MEDS: MIRTAZAPINE 15 MG TAB PEG SCH (20:37)
[2016-03-22] MEDS: MIDODRINE 5 MG TAB PO SCH ×3 (05:39→18:53)
[2016-03-22] MEDS: risperiDONE 0.25 MG TAB PO SCH ×2 (09:13→22:11)
[2016-03-22] MEDS: ALLOPURINOL 100 MG TAB PEG SCH (09:13)
[2016-03-22] MEDS: LANSOPRAZOLE SOLUTAB 30 MG TAB PEG SCH (09:13)
[2016-03-22 10:30] VITALS: BP 93/60; PULSE 76; RESP 16; TEMP 96; O2SAT 92
--- NOTE | 2016-03-22 13:53 | HHI.PR ---
Subjective Remarks Follow-up for malnutrition, dementia, hordeolum. Patient is sleeping when I enter the room but nods his head yes when asked if he is feeling okay and if eye is ok. Objective Vitals Vital Signs Date Time Temp Pulse Resp B/P Pulse Ox O2 Delivery O2 Flow Rate FiO2 03/21/16 20:00 97.6 72 20 105/63 98 I/O 03/21/16 03/21/16 03/21/16 03/22/16 03/22/16 03/22/16 06:59 14:59 22:59 06:59 14:59 22:59 Intake Total 250 ml 1460 ml 0 ml Output Total 550 ml 0 ml 800 ml 500 ml Balance -300 ml 0 ml 660 ml -500 ml Intake Oral 0 ml 0 ml Tube Feeding 0 ml 1000 ml Tube Irrigant 250 ml 100 ml Other 360 ml Output Urine Total 550 ml 800 ml 500 ml Tube Feeding Residual Discard 0 ml # Bowel Movements 2 3 2 Objective Remarks GENERAL: Well developed male in no apparent distress. EYES: The right upper eyelid is erythematous with a nodule present. No drainage. No preseptal erythema or swelling. CARDIOVASCULAR: Regular rate and rhythm. RESPIRATORY: Limited anterior exam. No accessory muscle use. Clear to auscultation bilaterally. GASTROINTESTINAL: Abdomen soft, non-tender, non-distended. NEUROLOGICAL: Sleeping, but arouses to voice. Transient shaking of his hands. PSYCHIATRIC: Nods his head to questions. Chooses not speak. Procedures None Urinary Catheter: Yes Assessment to: Continue Date of Insertion: Feb 24, 2016 Vascular Central Line Catheter: No A/P Problem List: (1) GI bleed ICD Code: K92.2 Status: Resolved (2) Essential tremor ICD Code: G25.0 Status: Chronic (3) Dementia ICD Code: F03.90 Status: Chronic (4) Parkinson disease ICD Code: G20 Status: Chronic (5) Hypotension ICD Code: I95.9 Status: Resolved (6) Loose stools ICD Code: R19.5 Status: Resolved (7) Hordeolum of right upper eyelid ICD Code: H00.011 Status: Acute Assessment and Plan Upper GI bleed resolved. Developed bloody stools on 03/06. Hemoccult positive. Resolved. Hemoglobin has remained stable. Continue PPI. CT of the abdomen was performed 03/06 due to reported abdominal pain yesterday, to evaluate for infection. This shows a large stool ball noted within the rectum and a large amount of stool throughout the colon. Patient has had adequate BMs. GI evaluated patient and states bleeding is likely related to constipation/ stool impaction. Protein calorie malnutrition: Computational Mathematician evaluated patient 03/19. Continue bolus feeds with free water flushes. Prealbumin level 24 Dementia with inappropriate behavior, Patient with inappropriate sexual behavior. Groping the nursing staff, indicating sexual activities Patient has been hospitalized for similar events in 2015 Consulted psychiatry for further evaluation, who indicated that this is a frontal lobe dementia Continue Risperdal 0.25 mg every 12 hours instead of 0.5 mg due to somnolence. No somnolence today. Hordeolum: Patient has a hordeolum of the right upper eyelid. There is no evidence of preseptal cellulitis. Pain resolved. -Continue warm compresses qid Hypotension with episodes of hypertension: Hypotensive this morning but patient has history of this. Blood pressure labile. Continue to monitor. Continue Midodrine. Elevated BUN, stable Continue fluid flushes via PEG tube to avoid dehydration. Loose stools: Resolved. C. difficile negative. Stool culture and O&P negative. Continue Lactinex. Stage I decubitus ulcer, sacral skin tear: Continue wound care. Parkinson's disease: Patient has dementia and resting tremor. Chronic, stable. Mood disorder: Stable Continue Remeron. Mild obstructive uropathy: Resolved Appreciate urology recommendations. Suprapubic catheter in place, last changed 02/24/16. To be changed monthly, next time 03/23. Abdominal pelvis CT 03/06/16 shows resolution of right sided hydronephrosis. Urinary tract infection, resolved Urine culture positive for Proteus mirabilis and GBS. Patient has completed course of antibiotics. Abdominal pelvis CT 03/06 shows decompressed bladder with circumferential bladder wall thickening and intraluminal air possibly indicating cystitis, but the patient has been afebrile with normal WBC count. No treatment indicated. Weakness: Continue physical therapy Nursing staff to get patient up out of bed at least 3 times daily DVT prophylaxis: SCDs. Avoid chemical prophylaxis secondary to GI bleed. Discharge Planning commercial manager working on long-term care placement. Awaiting SSI/Medicaid to review documentation. PT recommends rehabilitation. Problem Qualifiers (1) Hordeolum of right upper eyelid: Qualified Code: H00.011 - Hordeolum of right upper eyelid, unspecified hordeolum type Madeline Ortez Mar 22, 2016 13:52 Madeline Ortez Mar 22, 2016 13:52
[2016-03-22 20:00] VITALS: BP 118/67; PULSE 82; RESP 20; TEMP 97; O2SAT 93
[2016-03-22] MEDS: MIRTAZAPINE 15 MG TAB PEG SCH (22:11)
[2016-03-23] MEDS: MIDODRINE 5 MG TAB PO SCH ×3 (05:32→17:02)
[2016-03-23 08:00] VITALS: BP 110/65; PULSE 65; RESP 17; TEMP 97; O2SAT 94
[2016-03-23] MEDS: ALLOPURINOL 100 MG TAB PEG SCH (09:04)
[2016-03-23] MEDS: risperiDONE 0.25 MG TAB PO SCH ×2 (09:04→22:00)
[2016-03-23] MEDS: LANSOPRAZOLE SOLUTAB 30 MG TAB PEG SCH (09:04)
--- NOTE | 2016-03-23 13:51 | HHI.PR ---
Subjective Remarks No acute complaints. No change in clinical status. Objective Vitals Vital Signs Date Time Temp Pulse Resp B/P Pulse Ox O2 Delivery O2 Flow Rate FiO2 03/23/16 08:00 97.0 65 17 110/65 94 03/22/16 20:00 97.0 82 20 118/67 93 I/O 03/22/16 03/22/16 03/22/16 03/23/16 03/23/16 03/23/16 07:00 15:00 23:00 07:00 15:00 23:00 Intake Total 0 ml 2379 ml 300 ml Output Total 500 ml 0 ml 1200 ml Balance -500 ml 0 ml 2379 ml -900 ml Intake Oral 0 ml 0 ml Tube Feeding 1639 ml 250 ml Other 740 ml 50 ml Output Urine Total 500 ml 1200 ml Tube Feeding Residual Discard 0 ml # Bowel Movements 2 Objective Remarks GENERAL: Well developed male in no apparent distress. EYES: The right upper eyelid is erythematous with a nodule present. No drainage. No preseptal erythema or swelling. Pupils are normal. No conjunctival injection. CARDIOVASCULAR: Regular rate and rhythm. RESPIRATORY: Limited anterior exam. No accessory muscle use. Clear to auscultation bilaterally. GASTROINTESTINAL: Normoactive bowel sounds. Abdomen soft, non-tender, non- distended. NEUROLOGICAL: Sleeping, but arouses to voice. PSYCHIATRIC: Nods his head to questions. Chooses not speak. Procedures None Urinary Catheter: No Date of Insertion: Feb 24, 2016 Vascular Central Line Catheter: No A/P Problem List: (1) GI bleed ICD Code: K92.2 Status: Resolved (2) Essential tremor ICD Code: G25.0 Status: Chronic (3) Dementia ICD Code: F03.90 Status: Chronic (4) Parkinson disease ICD Code: G20 Status: Chronic (5) Hypotension ICD Code: I95.9 Status: Resolved (6) Loose stools ICD Code: R19.5 Status: Resolved (7) Hordeolum of right upper eyelid ICD Code: H00.011 Status: Acute Assessment and Plan Upper GI bleed resolved. Developed bloody stools on 03/06. Hemoccult positive. Resolved. Hemoglobin has remained stable. Continue PPI. CT of the abdomen was performed 03/06 due to reported abdominal pain yesterday, to evaluate for infection. This shows a large stool ball noted within the rectum and a large amount of stool throughout the colon. Patient has had adequate BMs. GI evaluated patient and states bleeding is likely related to constipation/ stool impaction. Protein calorie malnutrition: Terminal Supervisor evaluated patient 03/19. Continue bolus feeds with free water flushes. Prealbumin level 24 Dementia with inappropriate behavior, Patient with inappropriate sexual behavior. Groping the nursing staff, indicating sexual activities Patient has been hospitalized for similar events in 2015 Consulted psychiatry for further evaluation, who indicated that this is a frontal lobe dementia Continue Risperdal 0.25 mg every 12 hours instead of 0.5 mg due to somnolence. No somnolence today. Hordeolum: Patient has a hordeolum of the right upper eyelid. There is no evidence of preseptal cellulitis. Pain resolved. -Continue warm compresses qid Hypotension with episodes of hypertension: Hypotensive this morning but patient has history of this. Blood pressure labile. Continue to monitor. Continue Midodrine. Elevated BUN, stable Continue fluid flushes via PEG tube to avoid dehydration. Loose stools: Resolved. C. difficile negative. Stool culture and O&P negative. Continue Lactinex. Stage I decubitus ulcer, sacral skin tear: Continue wound care. Parkinson's disease: Patient has dementia and resting tremor. Chronic, stable. Mood disorder: Stable Continue Remeron. Mild obstructive uropathy: Resolved Appreciate urology recommendations. Suprapubic catheter in place, last changed 02/24/16. To be changed monthly, will order change today 03/23. Next time will be 04/20/16. Abdominal pelvis CT 03/06/16 shows resolution of right sided hydronephrosis. Urinary tract infection, resolved Urine culture positive for Proteus mirabilis and GBS. Patient has completed course of antibiotics. Abdominal pelvis CT 03/06 shows decompressed bladder with circumferential bladder wall thickening and intraluminal air possibly indicating cystitis, but the patient has been afebrile with normal WBC count. No treatment indicated. Weakness: Continue physical therapy Nursing staff to get patient up out of bed at least 3 times daily DVT prophylaxis: SCDs. Avoid chemical prophylaxis secondary to GI bleed. Discharge Planning supplier quality engineering manager working on long-term care placement. Awaiting SSI/Medicaid to review documentation. PT recommends rehabilitation. Problem Qualifiers (1) Hordeolum of right upper eyelid: Qualified Code: H00.011 - Hordeolum of right upper eyelid, unspecified hordeolum type Madeline Ortez Mar 23, 2016 13:51
[2016-03-23 20:00] VITALS: BP 99/65; PULSE 78; RESP 18; TEMP 96.6; O2SAT 94
[2016-03-23] MEDS: MIRTAZAPINE 15 MG TAB PEG SCH (22:00)
[2016-03-24] MEDS: MIDODRINE 5 MG TAB PO SCH ×3 (06:12→17:00)
[2016-03-24 08:44] VITALS: BP 109/70; PULSE 75; RESP 20; TEMP 95.8; O2SAT 92
[2016-03-24] MEDS: LANSOPRAZOLE SOLUTAB 30 MG TAB PEG SCH (09:10)
[2016-03-24] MEDS: ALLOPURINOL 100 MG TAB PEG SCH (09:11)
[2016-03-24] MEDS: DIPHENOXYLATE/ATROPINE 2.5 MG/0.025 MG TAB PO PRN (09:11)
[2016-03-24] MEDS: risperiDONE 0.25 MG TAB PO SCH ×2 (09:11→22:28)
--- NOTE | 2016-03-24 09:54 | HHI.PR ---
Subjective Remarks Patient is a long-term patient for dementia, malnutrition, urinary issues, s/p GI bleed. Follow up acutely for hordeolum. Patient nods yes when asked if he has pain when he closes his right eye. Objective Vitals Vital Signs Date Time Temp Pulse Resp B/P Pulse Ox O2 Delivery O2 Flow Rate FiO2 03/24/16 08:44 95.8 75 20 109/70 92 03/23/16 20:00 96.6 78 18 99/65 94 I/O 03/23/16 03/23/16 03/23/16 03/24/16 03/24/16 03/24/16 06:59 14:59 22:59 06:59 14:59 22:59 Intake Total 300 ml 1440 ml 440 ml 560 ml Output Total 1200 ml 450 ml 450 ml 800 ml Balance -900 ml 990 ml -10 ml -240 ml Intake Oral 0 ml IV Total 0 ml Tube Feeding 250 ml 840 ml 240 ml 360 ml Other 50 ml 600 ml 200 ml 200 ml Output Urine Total 1200 ml 450 ml 450 ml 800 ml # Bowel Movements 1 Objective Remarks GENERAL: Well developed male in no apparent distress. EYES: The right upper eyelid is erythematous with a tender nodule still present. No drainage. No preseptal erythema or swelling. R pupil is normal. No conjunctival injection. CARDIOVASCULAR: Regular rate and rhythm. RESPIRATORY: Limited anterior exam. No accessory muscle use. Clear to auscultation bilaterally. GASTROINTESTINAL: Normoactive bowel sounds. Abdomen soft, non-tender, non- distended. NEUROLOGICAL: Sleeping, but arouses to voice. PSYCHIATRIC: Nods his head to questions. Chooses not speak. Procedures None Urinary Catheter: No Date of Insertion: Feb 24, 2016 Vascular Central Line Catheter: No A/P Problem List: (1) GI bleed ICD Code: K92.2 Status: Resolved (2) Essential tremor ICD Code: G25.0 Status: Chronic (3) Dementia ICD Code: F03.90 Status: Chronic (4) Parkinson disease ICD Code: G20 Status: Chronic (5) Hypotension ICD Code: I95.9 Status: Resolved (6) Loose stools ICD Code: R19.5 Status: Resolved (7) Hordeolum of right upper eyelid ICD Code: H00.011 Status: Acute Assessment and Plan Upper GI bleed resolved. Developed bloody stools on 03/06. Hemoccult positive. Resolved. Hemoglobin has remained stable. Continue PPI. CT of the abdomen was performed 03/06 due to reported abdominal pain yesterday, to evaluate for infection. This shows a large stool ball noted within the rectum and a large amount of stool throughout the colon. Patient has had adequate BMs. GI evaluated patient and states bleeding is likely related to constipation/ stool impaction. Protein calorie malnutrition: Roll Up Helper evaluated patient 03/19. Continue bolus feeds with free water flushes. Prealbumin level 24 Dementia with inappropriate behavior, Patient with inappropriate sexual behavior. Groping the nursing staff, indicating sexual activities Patient has been hospitalized for similar events in 2014 Consulted psychiatry for further evaluation, who indicated that this is a frontal lobe dementia Continue Risperdal 0.25 mg every 12 hours instead of 0.5 mg due to somnolence. No somnolence today. Hordeolum: Patient has a hordeolum of the right upper eyelid. There is no evidence of preseptal cellulitis. -Continue warm compresses qid. If does not improve may need to consult ophthalmology. Hypotension with episodes of hypertension: Hypotensive this morning but patient has history of this. Blood pressure labile. Continue to monitor. Continue Midodrine. Elevated BUN, stable Continue fluid flushes via PEG tube to avoid dehydration. Loose stools: Resolved. C. difficile negative. Stool culture and O&P negative. Continue Lactinex. Stage I decubitus ulcer, sacral skin tear: Continue wound care. Parkinson's disease: Patient has dementia and resting tremor. Chronic, stable. Mood disorder: Stable Continue Remeron. Mild obstructive uropathy: Resolved Appreciate urology recommendations. Suprapubic catheter in place, last changed today 03/24/16. To be changed monthly. Abdominal pelvis CT 03/06/16 shows resolution of right sided hydronephrosis. Urinary tract infection, resolved Urine culture positive for Proteus mirabilis and GBS. Patient has completed course of antibiotics. Abdominal pelvis CT 03/06 shows decompressed bladder with circumferential bladder wall thickening and intraluminal air possibly indicating cystitis, but the patient has been afebrile with normal WBC count. No treatment indicated. Weakness: Continue physical therapy Nursing staff to get patient up out of bed at least 3 times daily DVT prophylaxis: SCDs. Avoid chemical prophylaxis secondary to GI bleed. Discharge Planning personalized living manager nurse working on long-term care placement. Awaiting SSI/Medicaid to review documentation. PT recommends rehabilitation. Problem Qualifiers (1) Hordeolum of right upper eyelid: Qualified Code: H00.011 - Hordeolum of right upper eyelid, unspecified hordeolum type Madeline Ortez Mar 24, 2016 09:54
[2016-03-24 20:00] VITALS: BP 105/72; PULSE 78; RESP 16; TEMP 97.1; O2SAT 94
[2016-03-24] MEDS: MIRTAZAPINE 15 MG TAB PEG SCH (22:28)
[2016-03-25] MEDS: MIDODRINE 5 MG TAB PO SCH ×3 (05:49→17:17)
[2016-03-25 08:00] VITALS: BP 128/70; PULSE 80; RESP 18; TEMP 98.4; O2SAT 93
[2016-03-25] MEDS: LANSOPRAZOLE SOLUTAB 30 MG TAB PEG SCH (08:38)
[2016-03-25] MEDS: risperiDONE 0.25 MG TAB PO SCH ×2 (08:38→21:14)
[2016-03-25] MEDS: ALLOPURINOL 100 MG TAB PEG SCH (08:38)
--- NOTE | 2016-03-25 10:11 | HHI.PR ---
Subjective Remarks Patient is a long-term patient for dementia, malnutrition, urinary issues, s/p GI bleed. Follow up acutely for hordeolum. Patient still admits to pain R eye. Objective Vitals Vital Signs Date Time Temp Pulse Resp B/P Pulse Ox O2 Delivery O2 Flow Rate FiO2 03/25/16 08:00 98.4 80 18 128/70 93 03/24/16 20:00 97.1 78 16 105/72 94 I/O 03/24/16 03/24/16 03/24/16 03/25/16 03/25/16 03/25/16 07:00 15:00 23:00 07:00 15:00 23:00 Intake Total 560 ml 684 ml Output Total 800 ml 750 ml 350 ml 300 ml Balance -240 ml -750 ml 334 ml -300 ml IV Total 0 ml Tube Feeding 360 ml 384 ml Other 200 ml 300 ml Output Urine Total 800 ml 750 ml 350 ml 300 ml Tube Feeding Residual Discard 0 ml # Bowel Movements 1 1 Objective Remarks GENERAL: Well developed male in no apparent distress. EYES: The right upper eyelid is erythematous with a nodule still present. No drainage. No preseptal erythema or swelling. R pupil is normal. No conjunctival injection R eye. CARDIOVASCULAR: Regular rate and rhythm. RESPIRATORY: Limited anterior exam. No accessory muscle use. Clear to auscultation bilaterally. GASTROINTESTINAL: Abdomen soft, non-tender, non-distended. NEUROLOGICAL: Awake and alert. PSYCHIATRIC: Nods his head to questions. Chooses not speak. Procedures None Urinary Catheter: Yes (suprapubic) Assessment to: Continue Soto insert reason: Prolonged Immobilization Date of Insertion: Mar 24, 2016 Vascular Central Line Catheter: No A/P Problem List: (1) GI bleed ICD Code: K92.2 Status: Resolved (2) Essential tremor ICD Code: G25.0 Status: Chronic (3) Dementia ICD Code: F03.90 Status: Chronic (4) Parkinson disease ICD Code: G20 Status: Chronic (5) Hypotension ICD Code: I95.9 Status: Resolved (6) Loose stools ICD Code: R19.5 Status: Resolved (7) Hordeolum of right upper eyelid ICD Code: H00.011 Status: Acute Assessment and Plan Upper GI bleed resolved. Developed bloody stools on 03/06. Hemoccult positive. Resolved. Hemoglobin has remained stable. Continue PPI. CT of the abdomen was performed 03/06 due to reported abdominal pain yesterday, to evaluate for infection. This shows a large stool ball noted within the rectum and a large amount of stool throughout the colon. Patient has had adequate BMs. GI evaluated patient and states bleeding is likely related to constipation/ stool impaction. Protein calorie malnutrition: Principal Network Architect evaluated patient 03/19. Continue bolus feeds with free water flushes. Prealbumin level 24 Dementia with inappropriate behavior, Patient with inappropriate sexual behavior. Groping the nursing staff, indicating sexual activities Patient has been hospitalized for similar events in 2014 Consulted psychiatry for further evaluation, who indicated that this is a frontal lobe dementia Continue Risperdal 0.25 mg every 12 hours instead of 0.5 mg due to somnolence. No somnolence today. Hordeolum: Patient has a hordeolum of the right upper eyelid. There is no evidence of preseptal cellulitis. -Warm compresses were applied but it has been greater than 2 weeks without significant improvement. Will consult ophthalmology to evaluate for possible incision and curettage. Hypotension with episodes of hypertension: Hypotensive this morning but patient has history of this. Blood pressure labile. Continue to monitor. Continue Midodrine. Elevated BUN, stable Continue fluid flushes via PEG tube to avoid dehydration. Loose stools: Resolved. C. difficile negative. Stool culture and O&P negative. Continue Lactinex. Stage I decubitus ulcer, sacral skin tear: Continue wound care. Parkinson's disease: Patient has dementia and resting tremor. Chronic, stable. Mood disorder: Stable Continue Remeron. Mild obstructive uropathy: Resolved Appreciate urology recommendations. Suprapubic catheter in place, last changed today 03/24/16. To be changed monthly. Abdominal pelvis CT 03/06/16 shows resolution of right sided hydronephrosis. Urinary tract infection, resolved Urine culture positive for Proteus mirabilis and GBS. Patient has completed course of antibiotics. Abdominal pelvis CT 03/06 shows decompressed bladder with circumferential bladder wall thickening and intraluminal air possibly indicating cystitis, but the patient has been afebrile with normal WBC count. No treatment indicated. Weakness: Continue physical therapy Nursing staff to get patient up out of bed at least 3 times daily DVT prophylaxis: SCDs. Avoid chemical prophylaxis secondary to GI bleed. Discharge Planning foster care case manager working on long-term care placement. Awaiting SSI/Medicaid to review documentation. PT recommends rehabilitation. Problem Qualifiers (1) Hordeolum of right upper eyelid: Qualified Code: H00.011 - Hordeolum of right upper eyelid, unspecified hordeolum type Madeline Ortez Mar 25, 2016 10:11
[2016-03-25 20:00] VITALS: BP 133/90; PULSE 76; RESP 20; TEMP 96.6; O2SAT 95
[2016-03-25] MEDS: MIRTAZAPINE 15 MG TAB PEG SCH (21:14)
[2016-03-26] MEDS: MIDODRINE 5 MG TAB PO SCH ×3 (06:35→17:07)
[2016-03-26] MEDS: risperiDONE 0.25 MG TAB PO SCH (08:28)
[2016-03-26] MEDS: LANSOPRAZOLE SOLUTAB 30 MG TAB PEG SCH (08:28)
[2016-03-26] MEDS: ALLOPURINOL 100 MG TAB PEG SCH (08:28)
--- NOTE | 2016-03-26 08:40 | PD.CONS ---
History of Present Illness Service Ophthalmology Consult Requested By Reason for Consult right eye hordeolum Primary Care Physician Alexus Anglin MD Diagnoses: History of Present Illness 76 M - admitted for 2 months with dementia, malnutrition, urinary issues, s/p GI bleed. Ophthalmology consulted to evaluate right upper eyelid hordeolum. Pt states he has some mild discomfort on right eyelid. No vision changes. No significant ocular history. Past Family Social History Allergies: Coded Allergies: Depakote (Verified Allergy, Severe, 01/20/16) Levaquin (Verified Allergy, Severe, 01/20/16) Olanzapine (Verified Allergy, Severe, 01/20/16) Ciprofloxacin (Verified Allergy, Intermediate, Hallucinations, 01/20/16) per pt's son Hydrocodone (Verified Allergy, Intermediate, Hallucinations, 01/20/16) per pt's son Seroquel (Verified Allergy, Intermediate, Rash, 01/20/16) Physical Exam Vital Signs Vital Signs Date Time Temp Pulse Resp B/P Pulse Ox O2 Delivery O2 Flow Rate FiO2 03/25/16 20:00 96.6 76 20 133/90 95 Physical Exam Va cc at near OD 20/40, OS 20/40 EOM full OU, no diplopia CVF full OU Pupils 2-1 no APD OU IOP normal to palpation OU Anterior exam OD - small upper lid chalazion, C/S W&Q, K clear, AC deep, pupil round, +NS OS - normal eyelid, C/S W&Q, K clear, AC deep, pupil round, +NS Assessment and Plan Problem List: (1) Chalazion of right upper eyelid Status: Acute Plan: Too small for I&D. Continue warm compresses with hot pack QID. Start Tobradex drops QID OD x 2 weeks. Follow up as outpatient. Jane Oh MD Mar 26, 2016 08:39
[2016-03-26 10:19] VITALS: BP 114/77; PULSE 72; RESP 20; TEMP 95.3; O2SAT 95
--- NOTE | 2016-03-26 10:50 | HHI.PR ---
Subjective Remarks Patient seen and examined today. Patient denies any new complaints. Nursing staff indicates patient is still having sexually inappropriate behavior. Objective Vitals Vital Signs Date Time Temp Pulse Resp B/P Pulse Ox O2 Delivery O2 Flow Rate FiO2 03/26/16 10:19 95.3 72 20 114/77 95 03/25/16 20:00 96.6 76 20 133/90 95 I/O 03/25/16 03/25/16 03/25/16 03/26/16 03/26/16 03/26/16 07:00 15:00 23:00 07:00 15:00 23:00 Intake Total 60 ml 520 ml Output Total 300 ml 602 ml 400 ml Balance -300 ml -602 ml -340 ml 520 ml Intake Oral 60 ml Tube Feeding 320 ml Tube Irrigant 200 ml Output Urine Total 300 ml 600 ml 400 ml Stool Total 2 ml # Voids 2 # Bowel Movements 1 1 Objective Remarks GENERAL: Well-developed, well-nourished, in no acute distress. More alert today HEENT: Head is normocephalic without any lesions or masses noted. Facial features are symmetric. Eyes: Extraocular muscles are intact. Conjunctivae were clear. NECK: Supple without any masses. Trachea midline no deviation. No JVD, no bruits are appreciated CARDIAC: Regular rhythm, regular rate. S1/S2 are heard. No murmurs gallops or rubs. LUNGS: Clear to auscultation bilaterally. No wheeze, rhonchi or rales. No use of accessory muscles on inspiration or expiration. ABDOMEN: Soft, nontender. Nondistended. Bowel sounds heard in all 4 quadrants. No organomegaly or masses. Negative rebound, negative guarding, suprapubic catheter in place, PEG tube noted EXTREMITIES: No edema, pulses are equal bilaterally. No cyanosis or clubbing NEUROLOGY: Mood and affect appear appropriate. Cranial nerves II through XII grossly intact. Moving all extremities Procedures None Urinary Catheter: No Date of Insertion: Mar 24, 2016 Vascular Central Line Catheter: No A/P Assessment and Plan Upper GI bleed: Resolved. Patient had episode of 1 bloody stool on 03/06, Hemoccult-positive Hemoglobin has remained stable during his stay in the hospital GI was reconsulted and following Continue PPI. Protein calorie malnutrition: Continue tube feeds. On Jevity 1.5 at 60 ml/h. discontinue continuous tube feedings and start bolus feedings as recommended by dietitian Consulted dietitian who indicated that patient may be converted to bolus feeding and recommended Jevity 1.5, 6 cans per day. 1.5 cans that 0800 and 2000 , 1 can at 1100, 1400, 1700 Prealbumin level 24 Dementia with inappropriate behavior, recurrent patient more somnolent today, likely secondary to medication use, patient is afebrile, no tachycardia, no signs of infection. Patient was with inappropriate sexual behavior. Groping the nursing staff, indicating sexual activities, Patient has been hospitalized for similar events in 2015 Consulted psychiatry for further evaluation, who indicated that this is a frontal lobe dementia Adjust medications to Risperdal 0.25 mg during the day, Risperdal 0.5 mg at night Right upper eyelid chalazion Continue warm compresses, keep clean TobraDex eyedrops Ophthalmology has evaluated the patient and made recommendations Hypotension with episodes of hypertension: Stable Blood pressure labile. Continue monitor blood pressure Continue Midodrine. Elevated BUN, stable Continue fluid flushes via PEG tube to avoid dehydration. Loose stools: Resolved. C. difficile negative. Stool culture and O&P negative. Continue Lactinex. Stage I decubitus ulcer, sacral skin tear: Continue wound care. Parkinson's disease: Patient has dementia and resting tremor. Chronic, stable. Mood disorder: Stable Continue Remeron. Mild obstructive uropathy: Resolved Appreciate urology recommendations. Suprapubic catheter in place, last changed 02/24/16. To be changed monthly. Urinary tract infection, resolved UTI: Urine culture positive for Proteus mirabilis and GBS. Patient has completed course of antibiotics. Weakness: Continue physical therapy Nursing staff to get patient up out of bed at least 3 times daily DVT prophylaxis: SCDs. Avoid chemical prophylaxis secondary to GI bleed. Discharge Planning Discharge planning to [facility] facility once arrangements made by case management 03/19/16 1256 RECEIVED UPDATE FROM [facility] AND ALL DOCUMENTATION HAS BEEN SENT TO SSI/MEDICAID FOR REVIEW AWAITNG OUTCOME FRO ABILITY TO ASSIST TO PLACE. CECILE JOAQUIN LPN/Jaguar Rm Mar 26, 2016 10:50
[2016-03-26] MEDS: TOBRAMYCIN 0.3%/DEXAMETHASONE 0.1% OPHT SUSP 5 ML BTL RIGHT EYE SCH ×3 (12:46→20:18)
[2016-03-26 20:00] VITALS: BP 103/70; PULSE 73; RESP 18; TEMP 96.8; O2SAT 97
[2016-03-26] MEDS: MIRTAZAPINE 15 MG TAB PEG SCH (20:17)
[2016-03-26] MEDS: risperiDONE 0.5 MG TAB PO SCH (20:18)
[2016-03-27] MEDS: MIDODRINE 5 MG TAB PO SCH ×3 (05:50→16:47)
[2016-03-27] MEDS: TOBRAMYCIN 0.3%/DEXAMETHASONE 0.1% OPHT SUSP 5 ML BTL RIGHT EYE SCH ×3 (05:50→17:31)
[2016-03-27 08:00] VITALS: BP 125/77; PULSE 82; RESP 16; TEMP 98.8; O2SAT 95
--- NOTE | 2016-03-27 08:02 | HHI.PR ---
Subjective Remarks Patient seen and examined today. Patient denies any new complaints. No change in clinical status. Objective Vitals Vital Signs Date Time Temp Pulse Resp B/P Pulse Ox O2 Delivery O2 Flow Rate FiO2 03/26/16 20:00 96.8 73 18 103/70 97 03/26/16 10:19 95.3 72 20 114/77 95 I/O 03/26/16 03/26/16 03/26/16 03/27/16 03/27/16 03/27/16 07:00 15:00 23:00 07:00 15:00 23:00 Intake Total 520 ml 0 ml 560 ml Output Total 250 ml 500 ml Balance 520 ml -250 ml -500 ml 560 ml Intake Oral 0 ml Tube Feeding 320 ml 360 ml Tube Irrigant 200 ml 200 ml Output Urine Total 250 ml 500 ml # Voids 2 # Bowel Movements 1 1 1 Objective Remarks GENERAL: Well-developed, well-nourished, in no acute distress. More alert today HEENT: Head is normocephalic without any lesions or masses noted. Facial features are symmetric. Eyes: Extraocular muscles are intact. Conjunctivae were clear. Mild edema noted to right upper eyelid NECK: Supple without any masses. Trachea midline no deviation. No JVD, no bruits are appreciated CARDIAC: Regular rhythm, regular rate. S1/S2 are heard. No murmurs gallops or rubs. LUNGS: Clear to auscultation bilaterally. No wheeze, rhonchi or rales. No use of accessory muscles on inspiration or expiration. ABDOMEN: Soft, nontender. Nondistended. Bowel sounds heard in all 4 quadrants. No organomegaly or masses. Negative rebound, negative guarding, suprapubic catheter in place, PEG tube noted EXTREMITIES: No edema, pulses are equal bilaterally. No cyanosis or clubbing NEUROLOGY: Mood and affect appear appropriate. Cranial nerves II through XII grossly intact. Moving all extremities Procedures None Urinary Catheter: No Date of Insertion: Mar 24, 2016 Vascular Central Line Catheter: No A/P Assessment and Plan Upper GI bleed: Resolved. Patient had episode of 1 bloody stool on 03/06, Hemoccult-positive Hemoglobin has remained stable during his stay in the hospital GI was reconsulted and following Continue PPI. Protein calorie malnutrition: Continue tube feeds. On Jevity 1.5 at 60 ml/h. discontinue continuous tube feedings and start bolus feedings as recommended by dietitian Consulted dietitian who indicated that patient may be converted to bolus feeding and recommended Jevity 1.5, 6 cans per day. 1.5 cans that 0800 and 2000 , 1 can at 1100, 1400, 1700 Prealbumin level 24 Dementia with inappropriate behavior, recurrent patient more somnolent today, likely secondary to medication use, patient is afebrile, no tachycardia, no signs of infection. Patient was with inappropriate sexual behavior. Groping the nursing staff, indicating sexual activities, Patient has been hospitalized for similar events in 2015 Consulted psychiatry for further evaluation, who indicated that this is a frontal lobe dementia Adjust medications to Risperdal 0.25 mg during the day, Risperdal 0.5 mg at night Right upper eyelid chalazion Continue warm compresses, keep clean TobraDex eyedrops Ophthalmology has evaluated the patient and made recommendations Hypotension with episodes of hypertension: Stable Blood pressure labile. Continue monitor blood pressure Continue Midodrine. Elevated BUN, stable Continue fluid flushes via PEG tube to avoid dehydration. Loose stools: Resolved. C. difficile negative. Stool culture and O&P negative. Continue Lactinex. Stage I decubitus ulcer, sacral skin tear: Continue wound care. Parkinson's disease: Patient has dementia and resting tremor. Chronic, stable. Mood disorder: Stable Continue Remeron. Mild obstructive uropathy: Resolved Appreciate urology recommendations. Suprapubic catheter in place, last changed 02/24/16. To be changed monthly. Urinary tract infection, resolved UTI: Urine culture positive for Proteus mirabilis and GBS. Patient has completed course of antibiotics. Weakness: Continue physical therapy Nursing staff to get patient up out of bed at least 3 times daily DVT prophylaxis: SCDs. Avoid chemical prophylaxis secondary to GI bleed. Discharge Planning [facility] once arrangements made by case management 03/27/16 0645 PATIENT NEEDING CERTIFIED LACTATION COUNSELOR CARE. HE HAS HUMANA FOR REHAB BUT NO SNF WILL ACCEPT R/T NEED FOR SHELTER AND NO COVERAGE. [facility]=RE WORKING WITH SON ON MEDICAID [place]. WILL NEED THIS FOR PLACEMENT ASSISTANCE CECLIE JOAQUIN LPN/DORIS, [employer] Mar 27, 2016 08:02
[2016-03-27] MEDS: LANSOPRAZOLE SOLUTAB 30 MG TAB PEG SCH (08:31)
[2016-03-27] MEDS: ALLOPURINOL 100 MG TAB PEG SCH (08:31)
[2016-03-27] MEDS: risperiDONE 0.25 MG TAB PO SCH (08:36)
[2016-03-27 20:00] VITALS: BP 104/68; PULSE 76; RESP 16; TEMP 96.5; O2SAT 96
[2016-03-27] MEDS: risperiDONE 0.5 MG TAB PO SCH (20:11)
[2016-03-27] MEDS: MIRTAZAPINE 15 MG TAB PEG SCH (20:11)
[2016-03-28] MEDS: TOBRAMYCIN 0.3%/DEXAMETHASONE 0.1% OPHT SUSP 5 ML BTL RIGHT EYE SCH ×5 (05:20→23:26)
[2016-03-28] MEDS: MIDODRINE 5 MG TAB PO SCH ×3 (06:01→17:00)
[2016-03-28] MEDS: ALLOPURINOL 100 MG TAB PEG SCH (08:03)
[2016-03-28] MEDS: LANSOPRAZOLE SOLUTAB 30 MG TAB PEG SCH (08:03)
[2016-03-28] MEDS: risperiDONE 0.25 MG TAB PO SCH (08:03)
[2016-03-28 08:04] VITALS: BP 88/58; PULSE 74; RESP 14; TEMP 96.4; O2SAT 96
--- NOTE | 2016-03-28 08:32 | HHI.PR ---
Subjective Remarks Patient seen and examined today. Patient denies any new complaints. Patient refusing eyedrops per nursing staff. I discussed with him to use medication order to treat his chalazion. Awaiting heel caser discharge planning Objective Vitals Vital Signs Date Time Temp Pulse Resp B/P Pulse Ox O2 Delivery O2 Flow Rate FiO2 03/27/16 20:00 96.5 76 16 104/68 96 I/O 03/27/16 03/27/16 03/27/16 03/28/16 03/28/16 03/28/16 07:00 15:00 23:00 07:00 15:00 23:00 Intake Total 560 ml 840 ml 460 ml 0 ml Output Total 551 ml 250 ml Balance 560 ml 840 ml -91 ml -250 ml Intake Oral 0 ml 0 ml Tube Feeding 360 ml 840 ml 360 ml Tube Irrigant 200 ml 100 ml Output Urine Total 550 ml 250 ml Stool Total 1 ml # Bowel Movements 1 2 Objective Remarks GENERAL: Well-developed, well-nourished, in no acute distress. More alert today HEENT: Head is normocephalic without any lesions or masses noted. Facial features are symmetric. Eyes: Extraocular muscles are intact. Conjunctivae were clear. Mild edema noted to right upper eyelid NECK: Supple without any masses. Trachea midline no deviation. No JVD, no bruits are appreciated CARDIAC: Regular rhythm, regular rate. S1/S2 are heard. No murmurs gallops or rubs. LUNGS: Clear to auscultation bilaterally. No wheeze, rhonchi or rales. No use of accessory muscles on inspiration or expiration. ABDOMEN: Soft, nontender. Nondistended. Bowel sounds heard in all 4 quadrants. No organomegaly or masses. Negative rebound, negative guarding, suprapubic catheter in place, PEG tube noted EXTREMITIES: No edema, pulses are equal bilaterally. No cyanosis or clubbing NEUROLOGY: Mood and affect appear appropriate. Cranial nerves II through XII grossly intact. Moving all extremities Procedures None Urinary Catheter: Yes Assessment to: Continue Soto insert reason: Prolonged Immobilization Date of Insertion: Mar 24, 2016 Vascular Central Line Catheter: No A/P Assessment and Plan Upper GI bleed: Resolved. Patient had episode of 1 bloody stool on 03/06, Hemoccult-positive Hemoglobin has remained stable during his stay in the hospital GI was reconsulted and following Continue PPI. Protein calorie malnutrition: Continue tube feeds. On Jevity 1.5 at 60 ml/h. discontinue continuous tube feedings and start bolus feedings as recommended by dietitian Consulted dietitian who indicated that patient may be converted to bolus feeding and recommended Jevity 1.5, 6 cans per day. 1.5 cans that 0800 and 2000 , 1 can at 1100, 1400, 1700 Prealbumin level 24 Dementia with inappropriate behavior, recurrent patient more somnolent today, likely secondary to medication use, patient is afebrile, no tachycardia, no signs of infection. Patient was with inappropriate sexual behavior. Groping the nursing staff, indicating sexual activities, Patient has been hospitalized for similar events in 2015 Consulted psychiatry for further evaluation, who indicated that this is a frontal lobe dementia Adjust medications to Risperdal 0.25 mg during the day, Risperdal 0.5 mg at night Right upper eyelid chalazion Continue warm compresses, keep clean TobraDex eyedrops Ophthalmology has evaluated the patient and made recommendations Hypotension with episodes of hypertension: Stable Blood pressure labile. Continue monitor blood pressure Continue Midodrine. Elevated BUN, stable Continue fluid flushes via PEG tube to avoid dehydration. Loose stools: Resolved. C. difficile negative. Stool culture and O&P negative. Continue Lactinex. Stage I decubitus ulcer, sacral skin tear: Continue wound care. Parkinson's disease: Patient has dementia and resting tremor. Chronic, stable. Mood disorder: Stable Continue Remeron. Mild obstructive uropathy: Resolved Appreciate urology recommendations. Suprapubic catheter in place, last changed 03/28/16. To be changed monthly. Urinary tract infection, resolved UTI: Urine culture positive for Proteus mirabilis and GBS. Patient has completed course of antibiotics. Weakness: Continue physical therapy Nursing staff to get patient up out of bed at least 3 times daily DVT prophylaxis: SCDs. Avoid chemical prophylaxis secondary to GI bleed. [facility]charge [facility] once arrangements made by case management 03/27/16 0645 PATIENT NEEDING FLAGSETTER CARE. HE HAS HUMANA FOR REHAB BUT NO SNF WILL ACCEPT R/T NEED FOR JAIL AND NO COVERAGE. [facility]=RE WORKING WITH SON ON MEDICAID [place]. WILL NEED THIS FOR PLACEMENT ASSISTANCE CECILE JOAQUIN LPN/Aaron GEORGE Matthew J. PA Mar 28, 2016 08:32
[2016-03-28 20:00] VITALS: BP 118/72; PULSE 78; RESP 16; TEMP 98; O2SAT 95
[2016-03-28] MEDS: risperiDONE 0.5 MG TAB PO SCH (21:40)
[2016-03-28] MEDS: MIRTAZAPINE 15 MG TAB PEG SCH (21:41)
[2016-03-29] MEDS: TOBRAMYCIN 0.3%/DEXAMETHASONE 0.1% OPHT SUSP 5 ML BTL RIGHT EYE SCH ×3 (05:56→17:30)
[2016-03-29] MEDS: MIDODRINE 5 MG TAB PO SCH ×3 (05:56→17:28)
[2016-03-29 08:00] VITALS: BP 110/76; PULSE 76; RESP 16; TEMP 97.9; O2SAT 96
[2016-03-29] MEDS: LANSOPRAZOLE SOLUTAB 30 MG TAB PEG SCH (09:54)
[2016-03-29] MEDS: ALLOPURINOL 100 MG TAB PEG SCH (09:54)
[2016-03-29] MEDS: risperiDONE 0.25 MG TAB PO SCH (09:54)
--- NOTE | 2016-03-29 11:15 | HHI.PR ---
Subjective Remarks Patient seen and examined today. Patient denies any new complaints. Awaiting case management for discharge planning Objective Vitals Vital Signs Date Time Temp Pulse Resp B/P Pulse Ox O2 Delivery O2 Flow Rate FiO2 03/29/16 08:00 97.9 76 16 110/76 96 03/28/16 20:00 98.0 78 16 118/72 95 I/O 03/28/16 03/28/16 03/28/16 03/29/16 03/29/16 03/29/16 06:59 14:59 22:59 06:59 14:59 22:59 Intake Total 0 ml 360 ml 974 ml 346 ml Output Total 250 ml 200 ml 900 ml Balance -250 ml 160 ml 974 ml -554 ml Intake Oral 0 ml Tube Feeding 360 ml 974 ml 346 ml Output Urine Total 250 ml 200 ml 900 ml # Bowel Movements 2 1 Objective Remarks GENERAL: Well-developed, well-nourished, in no acute distress. More alert today HEENT: Head is normocephalic without any lesions or masses noted. Facial features are symmetric. Eyes: Extraocular muscles are intact. Conjunctivae were clear. Mild edema noted to right upper eyelid NECK: Supple without any masses. Trachea midline no deviation. No JVD, no bruits are appreciated CARDIAC: Regular rhythm, regular rate. S1/S2 are heard. No murmurs gallops or rubs. LUNGS: Clear to auscultation bilaterally. No wheeze, rhonchi or rales. No use of accessory muscles on inspiration or expiration. ABDOMEN: Soft, nontender. Nondistended. Bowel sounds heard in all 4 quadrants. No organomegaly or masses. Negative rebound, negative guarding, suprapubic catheter in place, PEG tube noted EXTREMITIES: No edema, pulses are equal bilaterally. No cyanosis or clubbing NEUROLOGY: Mood and affect appear appropriate. Cranial nerves II through XII grossly intact. Moving all extremities Procedures None Urinary Catheter: Yes Assessment to: Continue Soto insert reason: Prolonged Immobilization Date of Insertion: Mar 24, 2016 Vascular Central Line Catheter: No A/P Assessment and Plan Upper GI bleed: Resolved. Patient had episode of 1 bloody stool on 03/06, Hemoccult-positive Hemoglobin has remained stable during his stay in the hospital GI was reconsulted and following Continue PPI. Protein calorie malnutrition: Consulted dietitian who indicated that patient may be converted to bolus feeding and recommended Jevity 1.5, 6 cans per day. 1.5 cans that 0800 and 2000 , 1 can at 1100, 1400, 1700 Prealbumin level 24 Dementia with inappropriate behavior, recurrent patient more somnolent today, likely secondary to medication use, patient is afebrile, no tachycardia, no signs of infection. Patient was with inappropriate sexual behavior. Groping the nursing staff, indicating sexual activities, Patient has been hospitalized for similar events in 2015 Consulted psychiatry for further evaluation, who indicated that this is a frontal lobe dementia Risperdal 0.25 mg during the day, Risperdal 0.5 mg at night Right upper eyelid chalazion Continue warm compresses, keep clean TobraDex eyedrops Ophthalmology has evaluated the patient and made recommendations Hypotension with episodes of hypertension: Stable Blood pressure labile. Continue monitor blood pressure Continue Midodrine. Elevated BUN, stable Continue fluid flushes via PEG tube to avoid dehydration. Loose stools: Resolved. C. difficile negative. Stool culture and O&P negative. Continue Lactinex. Stage I decubitus ulcer, sacral skin tear: Continue wound care. Parkinson's disease: Patient has dementia and resting tremor. Chronic, stable. Mood disorder: Stable Continue Remeron. Mild obstructive uropathy: Resolved Appreciate urology recommendations. Suprapubic catheter in place, last changed 03/28/16. To be changed monthly. Urinary tract infection, resolved Urine culture positive for Proteus mirabilis and GBS. Patient has completed course of antibiotics. Weakness: Continue physical therapy Nursing staff to get patient up out of bed at least 3 times daily DVT prophylaxis: SCDs. Avoid chemical prophylaxis secondary to GI bleed. Discharge Planning Discharge planning to longterm facility once arrangements made by case management 03/27/16 0645 PATIENT NEEDING TISSUE SPECIALIST CARE. HE HAS HUMANA FOR REHAB BUT NO SNF WILL ACCEPT R/T NEED FOR SNF AND NO COVERAGE. CHANGE [facility]ALTH[employer]=RE WORKING WITH SON ON MEDICAID [place]. WILL NEED THIS FOR PLACEMENT ASSISTANCE CECILE JOAQUIN LPN/Aaron GEORGE Matthew J. PA Mar 29, 2016 11:15
[2016-03-29 20:00] VITALS: BP 115/73; PULSE 82; RESP 18; TEMP 96.9; O2SAT 94
[2016-03-29] MEDS: risperiDONE 0.5 MG TAB PO SCH (21:02)
[2016-03-29] MEDS: MIRTAZAPINE 15 MG TAB PEG SCH (21:02)
[2016-03-30] MEDS: MIDODRINE 5 MG TAB PO SCH ×3 (06:09→17:11)
[2016-03-30] MEDS: TOBRAMYCIN 0.3%/DEXAMETHASONE 0.1% OPHT SUSP 5 ML BTL RIGHT EYE SCH ×4 (06:11→17:11)
[2016-03-30 08:00] VITALS: BP 103/72; PULSE 74; RESP 17; TEMP 98; O2SAT 95
[2016-03-30] MEDS: risperiDONE 0.25 MG TAB PO SCH (08:51)
[2016-03-30] MEDS: LANSOPRAZOLE SOLUTAB 30 MG TAB PEG SCH (08:51)
[2016-03-30] MEDS: ALLOPURINOL 100 MG TAB PEG SCH (08:51)
--- NOTE | 2016-03-30 09:40 | HHI.PR ---
Subjective Remarks Follow-up for malnutrition, dementia, stye. Patient denies any eye pain. Objective Vitals Vital Signs Date Time Temp Pulse Resp B/P Pulse Ox O2 Delivery O2 Flow Rate FiO2 03/30/16 08:00 98.0 74 17 103/72 95 03/29/16 20:00 96.9 82 18 115/73 94 I/O 03/29/16 03/29/16 03/29/16 03/30/16 03/30/16 03/30/16 07:00 15:00 23:00 07:00 15:00 23:00 Intake Total 346 ml 2150 ml 260 ml Output Total 900 ml 975 ml 900 ml Balance -554 ml 1175 ml -640 ml Intake Oral 400 ml 260 ml Tube Feeding 346 ml 1200 ml Tube Irrigant 100 ml Other 450 ml Output Urine Total 900 ml 975 ml 900 ml Stool Total 0 ml # Bowel Movements 1 1 Objective Remarks GENERAL: Well developed male in no apparent distress. EYES: The right upper eyelid is erythematous with a nodule still present. No drainage. No preseptal erythema or swelling. R pupil is normal. No conjunctival injection R eye. CARDIOVASCULAR: Regular rate and rhythm. RESPIRATORY: Limited anterior exam. No accessory muscle use. Clear to auscultation bilaterally. GASTROINTESTINAL: Normoactive bowel sounds. Abdomen soft, non-tender, non- distended. NEUROLOGICAL: Awake and alert. PSYCHIATRIC: Nods his head to questions. Chooses not speak. Procedures None Date of Insertion: Mar 24, 2016 A/P Problem List: (1) GI bleed ICD Code: K92.2 Status: Resolved (2) Essential tremor ICD Code: G25.0 Status: Chronic (3) Dementia ICD Code: F03.90 Status: Chronic (4) Parkinson disease ICD Code: G20 Status: Chronic (5) Hypotension ICD Code: I95.9 Status: Resolved (6) Loose stools ICD Code: R19.5 Status: Resolved (7) Chalazion of right upper eyelid ICD Code: H00.11 Status: Acute Assessment and Plan Upper GI bleed resolved. Developed bloody stools on 03/06. Hemoccult positive. Resolved. Hemoglobin has remained stable. Continue PPI. CT of the abdomen was performed 03/06 due to reported abdominal pain yesterday, to evaluate for infection. This shows a large stool ball noted within the rectum and a large amount of stool throughout the colon. Patient has had adequate BMs. GI evaluated patient and states bleeding is likely related to constipation/ stool impaction. Protein calorie malnutrition: Continue bolus feeds with free water flushes. Prealbumin level 24 Dietitian following, last evaluated 03/26 Dementia with inappropriate behavior, Patient with inappropriate sexual behavior. Groping the nursing staff, indicating sexual activities Patient has been hospitalized for similar events in 2015 Consulted psychiatry for further evaluation, who indicated that this is a frontal lobe dementia Continue Risperdal 0.25 mg every 12 hours instead of 0.5 mg due to somnolence. No somnolence today. Chalazion: Persistent nodule R upper eyelid. There is no evidence of preseptal cellulitis. -Warm compresses were applied but it was greater than 2 weeks without significant improvement. -Ophthalmology was consulted and evaluated patient on 03/26. Advises to continue warm compresses qid and started Tobradex 4 times a day OD x 2 weeks, and follow-up outpatient. Hypotension with episodes of hypertension: Hypotensive this morning but patient has history of this. Blood pressure labile. Continue to monitor. Continue Midodrine. Elevated BUN, stable Continue fluid flushes via PEG tube to avoid dehydration. Loose stools: Resolved. C. difficile negative. Stool culture and O&P negative. Continue Lactinex. Stage I decubitus ulcer, sacral skin tear: Continue wound care. Parkinson's disease: Patient has dementia and resting tremor. Chronic, stable. Mood disorder: Stable Continue Remeron. Mild obstructive uropathy: Resolved Appreciate urology recommendations. Suprapubic catheter in place, last changed 03/24/16. To be changed monthly. Abdominal pelvis CT 03/06/16 shows resolution of right sided hydronephrosis. Urinary tract infection, resolved Urine culture positive for Proteus mirabilis and GBS. Patient has completed course of antibiotics. Abdominal pelvis CT 03/06 shows decompressed bladder with circumferential bladder wall thickening and intraluminal air possibly indicating cystitis, but the patient has been afebrile with normal WBC count. No treatment indicated. Weakness: Continue physical therapy Nursing staff to get patient up out of bed at least 3 times daily DVT prophylaxis: SCDs. Avoid chemical prophylaxis secondary to GI bleed. Discharge Planning manager parking working on long-term care placement. Awaiting SSI/Medicaid to review documentation. PT recommends rehabilitation. Madeline Ortez Mar 30, 2016 09:40
[2016-03-30 20:00] VITALS: BP 109/69; PULSE 77; RESP 16; TEMP 97.3; O2SAT 97
[2016-03-30] MEDS: MIRTAZAPINE 15 MG TAB PEG SCH (20:07)
[2016-03-30] MEDS: risperiDONE 0.5 MG TAB PO SCH (20:10)
[2016-03-31] MEDS: TOBRAMYCIN 0.3%/DEXAMETHASONE 0.1% OPHT SUSP 5 ML BTL RIGHT EYE SCH ×4 (05:58→13:17)
[2016-03-31] MEDS: MIDODRINE 5 MG TAB PO SCH ×3 (06:00→16:50)
[2016-03-31 08:00] VITALS: BP 101/74; PULSE 71; RESP 18; TEMP 96.5; O2SAT 95
[2016-03-31] MEDS: risperiDONE 0.25 MG TAB PO SCH (09:00)
[2016-03-31] MEDS: ALLOPURINOL 100 MG TAB PEG SCH (09:00)
[2016-03-31] MEDS: LANSOPRAZOLE SOLUTAB 30 MG TAB PEG SCH (09:08)
--- NOTE | 2016-03-31 09:49 | HHI.PR ---
Subjective Remarks No acute complaints. No change in clinical status. Objective Vitals Vital Signs Date Time Temp Pulse Resp B/P Pulse Ox O2 Delivery O2 Flow Rate FiO2 03/31/16 08:00 96.5 71 18 101/74 95 03/30/16 20:00 97.3 77 16 109/69 97 I/O 03/30/16 03/30/16 03/30/16 03/31/16 03/31/16 03/31/16 07:00 15:00 23:00 07:00 15:00 23:00 Intake Total 260 ml 1360 ml 0 ml Output Total 900 ml 350 ml 500 ml Balance -640 ml -350 ml 1360 ml -500 ml Intake Oral 260 ml 0 ml Tube Feeding 1260 ml Tube Irrigant 100 ml Output Urine Total 900 ml 350 ml 500 ml # Bowel Movements 1 0 Objective Remarks GENERAL: Well developed male in no apparent distress. EYES: The right upper eyelid is erythematous with a nodule still present. No drainage. No preseptal erythema or swelling. No conjunctival injection R eye. CARDIOVASCULAR: Regular rate and rhythm. RESPIRATORY: Limited anterior exam. No accessory muscle use. Clear to auscultation bilaterally. GASTROINTESTINAL: Normoactive bowel sounds. Abdomen soft, non-tender, non- distended. NEUROLOGICAL: Sleeping but arouses to voice. Follows commands. PSYCHIATRIC: Does not speak. Procedures None Urinary Catheter: Yes (suprapubic) Assessment to: Continue Soto insert reason: Prolonged Immobilization Date of Insertion: Mar 24, 2016 Vascular Central Line Catheter: No A/P Problem List: (1) GI bleed ICD Code: K92.2 Status: Resolved (2) Essential tremor ICD Code: G25.0 Status: Chronic (3) Dementia ICD Code: F03.90 Status: Chronic (4) Parkinson disease ICD Code: G20 Status: Chronic (5) Hypotension ICD Code: I95.9 Status: Resolved (6) Loose stools ICD Code: R19.5 Status: Resolved (7) Chalazion of right upper eyelid ICD Code: H00.11 Status: Acute Assessment and Plan Upper GI bleed resolved. Developed bloody stools on 03/06. Hemoccult positive. Resolved. Hemoglobin has remained stable. Continue PPI. CT of the abdomen was performed 03/06 which showed a large stool ball noted within the rectum and a large amount of stool throughout the colon. GI evaluated patient and states bleeding is likely related to constipation/ stool impaction. Monitor BMs. Protein calorie malnutrition: Continue bolus feeds with free water flushes. Prealbumin level 24 Dietitian following, last evaluated 03/26 Dementia with inappropriate behavior, Patient with inappropriate sexual behavior. Groping the nursing staff, indicating sexual activities Patient has been hospitalized for similar events in 2014 Consulted psychiatry for further evaluation, who indicated that this is a frontal lobe dementia Continue Risperdal 0.25 mg every 12 hours instead of 0.5 mg due to somnolence. No somnolence today. Chalazion: Persistent nodule R upper eyelid. There is no evidence of preseptal cellulitis. -Warm compresses were applied but it was greater than 2 weeks without significant improvement. -Ophthalmology was consulted and evaluated patient on 03/26. Advises to continue warm compresses qid and started Tobradex 4 times a day OD x 2 weeks, although patient is refusing this medication. Follow-up outpatient. Hypotension with episodes of hypertension: Blood pressure labile. Continue to monitor. Continue Midodrine. Elevated BUN, stable Continue fluid flushes via PEG tube to avoid dehydration. Loose stools: Resolved. C. difficile negative. Stool culture and O&P negative. Continue Lactinex. Stage I decubitus ulcer, sacral skin tear: Continue wound care. Parkinson's disease: Patient has dementia and resting tremor. Chronic, stable. Mood disorder: Stable Continue Remeron. Mild obstructive uropathy: Resolved Appreciate urology recommendations. Suprapubic catheter in place, last changed 03/24/16. To be changed monthly. Abdominal pelvis CT 03/06/16 shows resolution of right sided hydronephrosis. Urinary tract infection, resolved Urine culture positive for Proteus mirabilis and GBS. Patient has completed course of antibiotics. Abdominal pelvis CT 03/06 shows decompressed bladder with circumferential bladder wall thickening and intraluminal air possibly indicating cystitis, but the patient has been afebrile with normal WBC count. No treatment indicated. Weakness: Continue physical therapy Nursing staff to get patient up out of bed at least 3 times daily DVT prophylaxis: SCDs. Avoid chemical prophylaxis secondary to GI bleed. Discharge Planning automotive services manager working on long-term care placement. Awaiting SSI/Medicaid to review documentation. PT recommends rehabilitation. Madeline Ortez Mar 31, 2016 09:49
[2016-03-31 20:00] VITALS: BP 102/66; PULSE 80; RESP 18; TEMP 96.4; O2SAT 96
[2016-03-31] MEDS: MIRTAZAPINE 15 MG TAB PEG SCH (21:43)
[2016-03-31] MEDS: risperiDONE 0.5 MG TAB PO SCH (21:43)
[2016-04-01] MEDS: TOBRAMYCIN 0.3%/DEXAMETHASONE 0.1% OPHT SUSP 5 ML BTL RIGHT EYE SCH ×4 (01:20→17:10)
[2016-04-01] MEDS: MIDODRINE 5 MG TAB PO SCH ×3 (06:33→16:20)
[2016-04-01 08:00] VITALS: BP 95/66; PULSE 72; RESP 18; TEMP 97.1; O2SAT 94
[2016-04-01] MEDS: ALLOPURINOL 100 MG TAB PEG SCH (09:19)
[2016-04-01] MEDS: LANSOPRAZOLE SOLUTAB 30 MG TAB PEG SCH (09:20)
[2016-04-01] MEDS: risperiDONE 0.25 MG TAB PO SCH (09:20)
--- NOTE | 2016-04-01 09:37 | HHI.PR ---
Subjective Remarks Patient denies any further eye pain. No change in clinical status. Objective Vitals Vital Signs Date Time Temp Pulse Resp B/P Pulse Ox O2 Delivery O2 Flow Rate FiO2 04/01/16 08:00 97.1 72 18 95/66 94 03/31/16 20:00 96.4 80 18 102/66 96 I/O 03/31/16 03/31/16 03/31/16 04/01/16 04/01/16 04/01/16 06:59 14:59 22:59 06:59 14:59 22:59 Intake Total 0 ml 0 ml 440 ml 180 ml Output Total 500 ml 550 ml 300 ml 350 ml Balance -500 ml -550 ml 140 ml -170 ml Intake Oral 0 ml 0 ml Tube Feeding 240 ml 0 ml Tube Irrigant 200 ml 180 ml Output Urine Total 500 ml 550 ml 300 ml 350 ml # Bowel Movements 0 0 3 2 Objective Remarks GENERAL: Well developed male in no apparent distress. EYES: The right upper eyelid is erythematous with a nodule still present. No drainage. No preseptal erythema or swelling. Right pupil normal. No conjunctival injection R eye. CARDIOVASCULAR: Regular rate and rhythm. RESPIRATORY: Limited anterior exam. No accessory muscle use. Clear to auscultation bilaterally. GASTROINTESTINAL: Abdomen soft, non-tender, non-distended. NEUROLOGICAL: Awake and alert. PSYCHIATRIC: Does not speak. Procedures None Urinary Catheter: No Date of Insertion: Mar 24, 2016 Vascular Central Line Catheter: No A/P Problem List: (1) GI bleed ICD Code: K92.2 Status: Resolved (2) Essential tremor ICD Code: G25.0 Status: Chronic (3) Dementia ICD Code: F03.90 Status: Chronic (4) Parkinson disease ICD Code: G20 Status: Chronic (5) Hypotension ICD Code: I95.9 Status: Resolved (6) Loose stools ICD Code: R19.5 Status: Resolved (7) Chalazion of right upper eyelid ICD Code: H00.11 Status: Acute Assessment and Plan Upper GI bleed resolved. Developed bloody stools on 03/06. Hemoccult positive. Resolved. Hemoglobin has remained stable. Continue PPI. CT of the abdomen was performed 03/06 which showed a large stool ball noted within the rectum and a large amount of stool throughout the colon. GI evaluated patient and states bleeding is likely related to constipation/ stool impaction. Monitor BMs. Protein calorie malnutrition: Continue bolus feeds with free water flushes. Prealbumin level 24 Dietitian following, last evaluated 03/26 Dementia with inappropriate behavior, Patient with inappropriate sexual behavior. Groping the nursing staff, indicating sexual activities Patient has been hospitalized for similar events in 2014 Consulted psychiatry for further evaluation, who indicated that this is a frontal lobe dementia Continue Risperdal 0.25 mg every 12 hours instead of 0.5 mg due to somnolence. No somnolence today. Chalazion: Persistent nodule R upper eyelid. There is no evidence of preseptal cellulitis. -Warm compresses were applied but it was greater than 2 weeks without significant improvement. -Ophthalmology was consulted and evaluated patient on 03/26. Advises to continue warm compresses qid and started Tobradex 4 times a day OD x 2 weeks. Patient has been refusing eyedrops. I encouraged use. He was compliant with use today. Follow-up outpatient. Hypotension with episodes of hypertension: Blood pressure labile. Continue to monitor. Continue Midodrine. Elevated BUN, stable Continue fluid flushes via PEG tube to avoid dehydration. Loose stools: Resolved. C. difficile negative. Stool culture and O&P negative. Continue Lactinex. Stage I decubitus ulcer, sacral skin tear: Continue wound care. Parkinson's disease: Patient has dementia and resting tremor. Chronic, stable. Mood disorder: Stable Continue Remeron. Mild obstructive uropathy: Resolved Appreciate urology recommendations. Suprapubic catheter in place, last changed 03/24/16. To be changed monthly. Abdominal pelvis CT 03/06/16 shows resolution of right sided hydronephrosis. Urinary tract infection, resolved Urine culture positive for Proteus mirabilis and GBS. Patient has completed course of antibiotics. Abdominal pelvis CT 03/06 shows decompressed bladder with circumferential bladder wall thickening and intraluminal air possibly indicating cystitis, but the patient has been afebrile with normal WBC count. No treatment indicated. Weakness: Continue physical therapy Nursing staff to get patient up out of bed at least 3 times daily DVT prophylaxis: SCDs. Avoid chemical prophylaxis secondary to GI bleed. Discharge Planning email marketing manager working on long-term care placement. Awaiting SSI/Medicaid to review documentation. PT recommends rehabilitation. Madeline Ortez Apr 01, 2016 09:37
[2016-04-01 20:00] VITALS: BP 96/64; PULSE 70; RESP 18; TEMP 98.2; O2SAT 95
[2016-04-01] MEDS: MIRTAZAPINE 15 MG TAB PEG SCH (20:33)
[2016-04-01] MEDS: risperiDONE 0.5 MG TAB PO SCH (20:34)
[2016-04-02] MEDS: TOBRAMYCIN 0.3%/DEXAMETHASONE 0.1% OPHT SUSP 5 ML BTL RIGHT EYE SCH ×5 (02:19→23:09)
[2016-04-02] MEDS: MIDODRINE 5 MG TAB PO SCH ×3 (06:42→17:58)
[2016-04-02] MEDS: LANSOPRAZOLE SOLUTAB 30 MG TAB PEG SCH (09:00)
[2016-04-02] MEDS: ALLOPURINOL 100 MG TAB PEG SCH (09:00)
[2016-04-02] MEDS: risperiDONE 0.25 MG TAB PO SCH (09:00)
[2016-04-02 09:45] VITALS: BP 96/61; PULSE 74; RESP 20; TEMP 97.5; O2SAT 94
--- NOTE | 2016-04-02 10:05 | HHI.PR ---
Subjective Remarks No acute complaints. No change in clinical status. Objective Vitals Vital Signs Date Time Temp Pulse Resp B/P Pulse Ox O2 Delivery O2 Flow Rate FiO2 04/02/16 09:45 97.5 74 20 96/61 94 04/01/16 20:00 98.2 70 18 96/64 95 I/O 04/01/16 04/01/16 04/01/16 04/02/16 04/02/16 04/02/16 07:00 15:00 23:00 07:00 15:00 23:00 Intake Total 180 ml 500 ml 200 ml Output Total 350 ml 600 ml 425 ml 300 ml Balance -170 ml -600 ml 75 ml -100 ml Intake Oral 60 ml Tube Feeding 0 ml 240 ml Tube Irrigant 180 ml 200 ml 200 ml Output Urine Total 350 ml 600 ml 425 ml 300 ml # Bowel Movements 2 2 1 1 Objective Remarks GENERAL: Well developed male in no apparent distress. CARDIOVASCULAR: Regular rate and rhythm. RESPIRATORY: Limited anterior exam. No accessory muscle use. Clear to auscultation bilaterally. GASTROINTESTINAL: Abdomen soft, non-tender, non-distended. NEUROLOGICAL: Awake and alert. PSYCHIATRIC: Does not speak. Procedures None Urinary Catheter: No Date of Insertion: Mar 24, 2016 Vascular Central Line Catheter: No A/P Problem List: (1) GI bleed ICD Code: K92.2 Status: Resolved (2) Essential tremor ICD Code: G25.0 Status: Chronic (3) Dementia ICD Code: F03.90 Status: Chronic (4) Parkinson disease ICD Code: G20 Status: Chronic (5) Hypotension ICD Code: I95.9 Status: Chronic (6) Loose stools ICD Code: R19.5 Status: Resolved (7) Chalazion of right upper eyelid ICD Code: H00.11 Status: Acute Assessment and Plan Upper GI bleed resolved. Developed bloody stools on 03/06. Hemoccult positive. Resolved. Hemoglobin has remained stable. Continue PPI. CT of the abdomen was performed 03/06 which showed a large stool ball noted within the rectum and a large amount of stool throughout the colon. GI evaluated patient and states bleeding is likely related to constipation/ stool impaction. Monitor BMs. Protein calorie malnutrition: Continue bolus feeds with free water flushes. Prealbumin level 24 Dietitian following, last evaluated 03/26 Dementia with inappropriate behavior, Patient with inappropriate sexual behavior. Groping the nursing staff, indicating sexual activities Patient has been hospitalized for similar events in 2015 Consulted psychiatry for further evaluation, who indicated that this is a frontal lobe dementia Continue Risperdal 0.25 mg every 12 hours instead of 0.5 mg due to somnolence. No somnolence today. Chalazion: Persistent nodule R upper eyelid. There is no evidence of preseptal cellulitis. -Warm compresses were applied but it was greater than 2 weeks without significant improvement. -Ophthalmology was consulted and evaluated patient on 03/26. Advises to continue warm compresses qid and started Tobradex 4 times a day OD x 2 weeks. Patient is intermittently compliant with eyedrops. I encouraged use. Follow-up outpatient. Hypotension with episodes of hypertension: Patient has had SBP around 95-96 yesterday and today but MAP is intact. No changed in clinical status. Continue Midodrine. Blood pressure labile. Continue to monitor BP. Elevated BUN, stable Continue fluid flushes via PEG tube to avoid dehydration. Loose stools: Resolved. C. difficile negative. Stool culture and O&P negative. Continue Lactinex. Stage I decubitus ulcer, sacral skin tear: Continue wound care. Parkinson's disease: Patient has dementia and resting tremor. Chronic, stable. Mood disorder: Stable Continue Remeron. Mild obstructive uropathy: Resolved Appreciate urology recommendations. Suprapubic catheter in place, last changed 03/24/16. To be changed monthly. Abdominal pelvis CT 03/06/16 shows resolution of right sided hydronephrosis. Urinary tract infection, resolved Urine culture positive for Proteus mirabilis and GBS. Patient has completed course of antibiotics. Abdominal pelvis CT 03/06 shows decompressed bladder with circumferential bladder wall thickening and intraluminal air possibly indicating cystitis, but the patient has been afebrile with normal WBC count. No treatment indicated. Weakness: Continue physical therapy Nursing staff to get patient up out of bed at least 3 times daily DVT prophylaxis: SCDs. Avoid chemical prophylaxis secondary to GI bleed. Discharge Planning engineering manager working on long-term care placement. Awaiting SSI/Medicaid to review documentation. PT recommends rehabilitation. Madeline Ortez Apr 02, 2016 10:04
[2016-04-02 20:00] VITALS: BP 102/66; PULSE 87; RESP 18; TEMP 97.9; O2SAT 94
[2016-04-02] MEDS: risperiDONE 0.5 MG TAB PO SCH (20:05)
[2016-04-02] MEDS: MIRTAZAPINE 15 MG TAB PEG SCH (20:05)
[2016-04-03] MEDS: TOBRAMYCIN 0.3%/DEXAMETHASONE 0.1% OPHT SUSP 5 ML BTL RIGHT EYE SCH ×3 (06:00→18:05)
[2016-04-03] MEDS: MIDODRINE 5 MG TAB PO SCH ×3 (06:00→16:32)
[2016-04-03] MEDS: risperiDONE 0.25 MG TAB PO SCH (08:54)
[2016-04-03] MEDS: LANSOPRAZOLE SOLUTAB 30 MG TAB PEG SCH (08:54)
[2016-04-03] MEDS: ALLOPURINOL 100 MG TAB PEG SCH (08:54)
[2016-04-03 09:13] VITALS: BP 85/62; PULSE 89; RESP 18; TEMP 96.9; O2SAT 93
--- NOTE | 2016-04-03 11:03 | HHI.PR ---
Subjective Remarks No acute complaints. No change in clinical status. Objective Vitals Vital Signs Date Time Temp Pulse Resp B/P Pulse Ox O2 Delivery O2 Flow Rate FiO2 04/03/16 09:13 96.9 89 18 85/62 93 04/02/16 20:00 97.9 87 18 102/66 94 I/O 04/02/16 04/02/16 04/02/16 04/03/16 04/03/16 04/03/16 07:00 15:00 23:00 07:00 15:00 23:00 Intake Total 200 ml 780 ml 940 ml 100 ml Output Total 300 ml 450 ml 650 ml 325 ml Balance -100 ml 330 ml 290 ml -225 ml Intake Oral 0 ml Tube Feeding 600 ml 840 ml Tube Irrigant 200 ml 180 ml 100 ml 100 ml Output Urine Total 300 ml 450 ml 650 ml 325 ml # Bowel Movements 1 2 Objective Remarks GENERAL: Well developed male in no apparent distress. EYES: Lid margin of right upper eyelid is erythematous with nodule present. No conjunctival injection R eye. No drainage. No preseptal erythema or edema. CARDIOVASCULAR: Regular rate and rhythm. RESPIRATORY: Limited anterior exam. No accessory muscle use. Clear to auscultation bilaterally. GASTROINTESTINAL: Normoactive bowel sounds. Abdomen soft, non-tender, non- distended. NEUROLOGICAL: Awake and alert. PSYCHIATRIC: Does not speak. Procedures None Urinary Catheter: Yes Assessment to: Continue Soto insert reason: Obstruction/Retention Date of Insertion: Mar 24, 2016 Vascular Central Line Catheter: No A/P Problem List: (1) GI bleed ICD Code: K92.2 Status: Resolved (2) Essential tremor ICD Code: G25.0 Status: Chronic (3) Dementia ICD Code: F03.90 Status: Chronic (4) Parkinson disease ICD Code: G20 Status: Chronic (5) Hypotension ICD Code: I95.9 Status: Chronic (6) Loose stools ICD Code: R19.5 Status: Resolved (7) Chalazion of right upper eyelid ICD Code: H00.11 Status: Acute Assessment and Plan Upper GI bleed resolved. Developed bloody stools on 03/06. Hemoccult positive. Resolved. Hemoglobin has remained stable. Continue PPI. CT of the abdomen was performed 03/06 which showed a large stool ball noted within the rectum and a large amount of stool throughout the colon. GI evaluated patient and states bleeding is likely related to constipation/ stool impaction. Monitor BMs. Protein calorie malnutrition: Continue bolus feeds with free water flushes. Prealbumin level 24 Dietitian following, last evaluated 03/26 Dementia with inappropriate behavior, Patient with inappropriate sexual behavior. Groping the nursing staff, indicating sexual activities Patient has been hospitalized for similar events in 2015 Consulted psychiatry for further evaluation, who indicated that this is a frontal lobe dementia Continue Risperdal 0.25 mg every 12 hours instead of 0.5 mg due to somnolence. No somnolence today. Chalazion: Persistent nodule R upper eyelid. There is no evidence of preseptal cellulitis. -Warm compresses were applied but it was greater than 2 weeks without significant improvement. -Ophthalmology was consulted and evaluated patient on 03/26. Advises to continue warm compresses qid and started Tobradex 4 times a day OD x 2 weeks. Patient is intermittently compliant with eyedrops. I encouraged use. Follow-up outpatient. Hypotension: Patient has chronic hypotension, but blood pressure has been lower than normal this morning with BP of 85/62 (70). Patient appears clinically the same. Afebrile with normal HR. Good urine output. Repeat BP this afternoon shows improvement 95/68 (MAP 77) CBC and BMP ordered to evaluate for infection and/or dehydration. CBC unremarkable. Electrolytes normal. Continue Midodrine. Blood pressure labile. Continue to monitor BP. Elevated BUN, stable, BUN 22 today. Continue free water flushes via PEG tube to avoid dehydration. Loose stools: Resolved. C. difficile negative. Stool culture and O&P negative. Continue Lactinex. Stage I decubitus ulcer, sacral skin tear: Continue wound care. Parkinson's disease: Patient has dementia and resting tremor. Chronic, stable. Mood disorder: Stable Continue Remeron. Mild obstructive uropathy: Resolved Appreciate urology recommendations. Suprapubic catheter in place, last changed 03/24/16. To be changed monthly. Abdominal pelvis CT 03/06/16 shows resolution of right sided hydronephrosis. Urinary tract infection, resolved Urine culture positive for Proteus mirabilis and GBS. Patient has completed course of antibiotics. Abdominal pelvis CT 03/06 shows decompressed bladder with circumferential bladder wall thickening and intraluminal air possibly indicating cystitis, but the patient has been afebrile with normal WBC count. No treatment indicated. Weakness: Continue physical therapy Nursing staff to get patient up out of bed at least 3 times daily DVT prophylaxis: SCDs. Avoid chemical prophylaxis secondary to GI bleed. Discharge Planning bilingual manager working on long-term care placement. Awaiting SSI/Medicaid to review documentation. PT recommends rehabilitation. Madeline Ortez Apr 03, 2016 11:03
[2016-04-03 13:57] LABS: POTASSIUM 3.8 MEQ/L (3.5-5.1)
[2016-04-03 13:58] VITALS: BP 95/68; PULSE 86; RESP 16; TEMP 97.1; O2SAT 94
[2016-04-03 14:01] LABS: BICARBONATE 27.1 MEQ/L (21.0-32.0)
[2016-04-03 14:03] LABS: AUTOMATED NEUTROPHIL # 3.5 TH/MM3 (1.8-7.7); BASOPHIL % 0.6 % (0.0-2.0); EOSINOPHIL # 0.2 TH/MM3 (0-0.4); EOSINOPHIL % 2.4 % (0.0-4.0); HEMATOCRIT 44.3 % (39.0-51.0); HEMO FLAGS DIFF FINAL; LYMPH % 38.1 % (9.0-44.0); LYMPHOCYTE # 2.5 TH/MM3 (1.0-4.8); MEAN CELL VOLUME 86.7 FL (80.0-100.0); MEAN CORPUSCULAR HEMOGLOBIN 28.2 PG (27.0-34.0); MEAN CORPUSCULAR HGB CONC 32.6 % (32.0-36.0); MONO % 7.3 % (0.0-8.0); NEUT % 51.6 % (16.0-70.0); PLATELET COUNT 173 TH/MM3 (150-450); RED BLOOD COUNT 5.11 MIL/MM3 (4.50-5.90); RED CELL DISTRIBUTION WIDTH 15.4 % (11.6-17.2); WHITE BLOOD COUNT 6.7 TH/MM3 (4.0-11.0)
[2016-04-03 20:00] VITALS: BP 99/66; PULSE 70; RESP 16; TEMP 96.5; O2SAT 95
[2016-04-03] MEDS: risperiDONE 0.5 MG TAB PO SCH (20:23)
[2016-04-03] MEDS: MIRTAZAPINE 15 MG TAB PEG SCH (20:24)
[2016-04-04] MEDS: TOBRAMYCIN 0.3%/DEXAMETHASONE 0.1% OPHT SUSP 5 ML BTL RIGHT EYE SCH ×4 (05:43→16:58)
[2016-04-04] MEDS: MIDODRINE 5 MG TAB PO SCH ×3 (06:00→16:58)
[2016-04-04 08:00] VITALS: BP 101/72; PULSE 68; RESP 17; TEMP 95.2; O2SAT 99
[2016-04-04] MEDS: risperiDONE 0.25 MG TAB PO SCH (09:39)
[2016-04-04] MEDS: LANSOPRAZOLE SOLUTAB 30 MG TAB PEG SCH (09:39)
[2016-04-04] MEDS: ALLOPURINOL 100 MG TAB PEG SCH (09:39)
--- NOTE | 2016-04-04 11:05 | HHI.PR ---
Subjective Remarks No acute complaints. Objective Vitals Vital Signs Date Time Temp Pulse Resp B/P Pulse Ox O2 Delivery O2 Flow Rate FiO2 04/04/16 08:00 95.2 68 17 101/72 99 04/03/16 20:00 96.5 70 16 99/66 95 04/03/16 13:58 97.1 86 16 95/68 94 I/O 04/03/16 04/03/16 04/03/16 04/04/16 04/04/16 04/04/16 06:59 14:59 22:59 06:59 14:59 22:59 Intake Total 100 ml 840 ml 813 ml 0 ml Output Total 325 ml 600 ml 250 ml Balance -225 ml 840 ml 213 ml -250 ml Intake Oral 0 ml 0 ml Tube Feeding 840 ml 713 ml Tube Irrigant 100 ml 100 ml Output Urine Total 325 ml 600 ml 250 ml # Bowel Movements 1 2 Result Diagram: 04/03/16 1320 04/03/16 1320 Objective Remarks GENERAL: Well developed male in no apparent distress. EYES: Lid margin of right upper eyelid is erythematous with nodule present. No conjunctival injection R eye. No drainage. No preseptal erythema or edema. CARDIOVASCULAR: Regular rate and rhythm. RESPIRATORY: Limited anterior exam. No accessory muscle use. Clear to auscultation bilaterally. GASTROINTESTINAL: Abdomen soft, non-tender, non-distended. NEUROLOGICAL: Awake and alert. PSYCHIATRIC: Does not speak. Procedures None Urinary Catheter: Yes Assessment to: Continue Soto insert reason: Prolonged Immobilization Date of Insertion: Mar 24, 2016 Vascular Central Line Catheter: No A/P Problem List: (1) GI bleed ICD Code: K92.2 Status: Resolved (2) Essential tremor ICD Code: G25.0 Status: Chronic (3) Dementia ICD Code: F03.90 Status: Chronic (4) Parkinson disease ICD Code: G20 Status: Chronic (5) Hypotension ICD Code: I95.9 Status: Chronic (6) Loose stools ICD Code: R19.5 Status: Resolved (7) Chalazion of right upper eyelid ICD Code: H00.11 Status: Acute Assessment and Plan Upper GI bleed resolved. Developed bloody stools on 03/06. Hemoccult positive. Resolved. Hemoglobin has remained stable. Continue PPI. CT of the abdomen was performed 03/06 which showed a large stool ball noted within the rectum and a large amount of stool throughout the colon. GI evaluated patient and states bleeding is likely related to constipation/ stool impaction. Monitor BMs. Protein calorie malnutrition: Continue bolus feeds with free water flushes. 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 Groping the nursing staff, indicating sexual activities Patient has been hospitalized for similar events in 2015 Consulted psychiatry for further evaluation, who indicated that this is a frontal lobe dementia Continue Risperdal 0.25 mg every 12 hours instead of 0.5 mg due to somnolence. No somnolence today. Chalazion: Persistent nodule R upper eyelid. There is no evidence of preseptal cellulitis. -Warm compresses were applied but it was greater than 2 weeks without significant improvement. -Ophthalmology was consulted and evaluated patient on 03/26. Advises to continue warm compresses qid and started Tobradex 4 times a day OD x 2 weeks. Patient is intermittently compliant with eyedrops. I encouraged use. Follow-up outpatient. Hypotension: Patient has chronic hypotension, but blood pressure was lower than normal yesterday. Repeat BPs with improvement CBC unremarkable. Electrolytes normal. Continue Midodrine. Blood pressure labile. Continue to monitor BP. Elevated BUN, stable, BUN 22 today. Continue free water flushes via PEG tube to avoid dehydration. Loose stools: Resolved. C. difficile negative. Stool culture and O&P negative. Continue Lactinex. Stage I decubitus ulcer, sacral skin tear: Continue wound care. Parkinson's disease: Patient has dementia and resting tremor. Chronic, stable. Mood disorder: Stable Continue Remeron. Mild obstructive uropathy: Resolved Appreciate urology recommendations. Suprapubic catheter in place, last changed 03/24/16. To be changed monthly. Abdominal pelvis CT 03/06/16 shows resolution of right sided hydronephrosis. Urinary tract infection, resolved Urine culture positive for Proteus mirabilis and GBS. Patient has completed course of antibiotics. Abdominal pelvis CT 03/06 shows decompressed bladder with circumferential bladder wall thickening and intraluminal air possibly indicating cystitis, but the patient has been afebrile with normal WBC count. No treatment indicated. Weakness: Continue physical therapy Nursing staff to get patient up out of bed at least 3 times daily DVT prophylaxis: SCDs. Avoid chemical prophylaxis secondary to GI bleed. Discharge Planning financial investment manager working on long-term care placement. Awaiting SSI/Medicaid to review documentation. PT recommends rehabilitation. Madeline Ortez Apr 04, 2016 11:05
[2016-04-04 20:00] VITALS: BP 103/7; PULSE 90; RESP 16; TEMP 97.5; O2SAT 94
[2016-04-04] MEDS: risperiDONE 0.5 MG TAB PO SCH (20:48)
[2016-04-04] MEDS: MIRTAZAPINE 15 MG TAB PEG SCH (20:49)
[2016-04-05] MEDS: TOBRAMYCIN 0.3%/DEXAMETHASONE 0.1% OPHT SUSP 5 ML BTL RIGHT EYE SCH ×4 (00:25→17:28)
[2016-04-05] MEDS: MIDODRINE 5 MG TAB PO SCH ×3 (05:48→17:28)
[2016-04-05 07:54] VITALS: BP 104/68; PULSE 82; RESP 18; TEMP 97; O2SAT 96
[2016-04-05] MEDS: LANSOPRAZOLE SOLUTAB 30 MG TAB PEG SCH (08:37)
[2016-04-05] MEDS: risperiDONE 0.25 MG TAB PO SCH (08:37)
[2016-04-05] MEDS: ALLOPURINOL 100 MG TAB PEG SCH (08:37)
--- NOTE | 2016-04-05 10:20 | HHI.PR ---
Subjective Remarks When I asked the patient if he is good he shakes his head no but then when asked what is specifically bothering him he shrugs his shoulders up. Objective Vitals Vital Signs Date Time Temp Pulse Resp B/P Pulse Ox O2 Delivery O2 Flow Rate FiO2 04/05/16 07:54 97.0 82 18 104/68 96 04/04/16 20:00 97.5 90 16 103/7 94 I/O 04/04/16 04/04/16 04/04/16 04/05/16 04/05/16 04/05/16 07:00 15:00 23:00 07:00 15:00 23:00 Intake Total 0 ml 650 ml 560 ml 0 ml Output Total 250 ml 350 ml Balance -250 ml 300 ml 560 ml 0 ml Intake Oral 0 ml 0 ml IV Total 0 ml Tube Feeding 650 ml 360 ml Tube Irrigant 200 ml Output Urine Total 250 ml 350 ml # Bowel Movements 2 0 Result Diagram: 04/03/16 1320 04/03/16 1320 Objective Remarks GENERAL: Well developed male in no apparent distress. EYES: Lid margin of right upper eyelid is erythematous. No drainage. No preseptal erythema or edema. CARDIOVASCULAR: Regular rate and rhythm. RESPIRATORY: Limited anterior exam. No accessory muscle use. Clear to auscultation bilaterally. GASTROINTESTINAL: Abdomen soft, non-tender, non-distended. NEUROLOGICAL: Awake and alert. Responds to questions by nodding head. PSYCHIATRIC: Does not speak. Calm affect. Procedures None Urinary Catheter: No Date of Insertion: Mar 24, 2016 Vascular Central Line Catheter: No A/P Problem List: (1) GI bleed ICD Code: K92.2 Status: Resolved (2) Essential tremor ICD Code: G25.0 Status: Chronic (3) Dementia ICD Code: F03.90 Status: Chronic (4) Parkinson disease ICD Code: G20 Status: Chronic (5) Hypotension ICD Code: I95.9 Status: Chronic (6) Loose stools ICD Code: R19.5 Status: Resolved (7) Chalazion of right upper eyelid ICD Code: H00.11 Status: Acute Assessment and Plan Upper GI bleed resolved. Developed bloody stools on 03/06. Hemoccult positive. Resolved. Hemoglobin has remained stable. Continue PPI. CT of the abdomen was performed 03/06 which showed a large stool ball noted within the rectum and a large amount of stool throughout the colon. GI evaluated patient and states bleeding is likely related to constipation/ stool impaction. Monitor BMs. Protein calorie malnutrition: Continue bolus feeds with free water flushes. 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 Groping the nursing staff, indicating sexual activities Patient has been hospitalized for similar events in 2015 Consulted psychiatry for further evaluation, who indicated that this is a frontal lobe dementia Continue Risperdal 0.25 mg every 12 hours instead of 0.5 mg due to somnolence. No somnolence today. Chalazion: Persistent nodule R upper eyelid. There is no evidence of preseptal cellulitis. -Warm compresses were applied but it was greater than 2 weeks without significant improvement. -Ophthalmology was consulted and evaluated patient on 03/26. Advises to continue warm compresses qid and started Tobradex 4 times a day OD x 2 weeks. Patient is intermittently compliant with eyedrops. I encouraged use. Follow-up outpatient. Hypotension: stable. Continue Midodrine. Blood pressure labile. Continue to monitor BP. Elevated BUN, stable, BUN 22. Continue free water flushes via PEG tube to avoid dehydration. Loose stools: Resolved. C. difficile negative. Stool culture and O&P negative. Continue Lactinex. Stage I decubitus ulcer, sacral skin tear: Continue wound care. Parkinson's disease: Patient has dementia and resting tremor. Chronic, stable. Mood disorder: Stable Continue Remeron. Mild obstructive uropathy: Resolved Appreciate urology recommendations. Suprapubic catheter in place, last changed 03/24/16. To be changed monthly. Abdominal pelvis CT 03/06/16 shows resolution of right sided hydronephrosis. Urinary tract infection, resolved Urine culture positive for Proteus mirabilis and GBS. Patient has completed course of antibiotics. Abdominal pelvis CT 03/06 shows decompressed bladder with circumferential bladder wall thickening and intraluminal air possibly indicating cystitis, but the patient has been afebrile with normal WBC count. No treatment indicated. Weakness: Continue physical therapy Nursing staff to get patient up out of bed at least 3 times daily DVT prophylaxis: SCDs. Avoid chemical prophylaxis secondary to GI bleed. Discharge Planning prototype engineer manager working on long-term care placement. Awaiting SSI/Medicaid to review documentation. PT recommends rehabilitation. Madeline Ortez Apr 05, 2016 10:20
[2016-04-05 20:00] VITALS: BP_SYST 102; BP_SYST 91; BP_DIAS 65; BP_DIAS 68; PULSE 83; RESP 20; TEMP 98.7; O2SAT 95
[2016-04-05] MEDS: risperiDONE 0.5 MG TAB PO SCH (21:00)
[2016-04-05] MEDS: MIRTAZAPINE 15 MG TAB PEG SCH (21:00)
[2016-04-06] MEDS: TOBRAMYCIN 0.3%/DEXAMETHASONE 0.1% OPHT SUSP 5 ML BTL RIGHT EYE SCH ×4 (01:23→17:21)
[2016-04-06] MEDS: MIDODRINE 5 MG TAB PO SCH ×3 (06:14→17:21)
[2016-04-06] MEDS: LANSOPRAZOLE SOLUTAB 30 MG TAB PEG SCH (08:20)
[2016-04-06] MEDS: ALLOPURINOL 100 MG TAB PEG SCH (08:20)
[2016-04-06] MEDS: risperiDONE 0.25 MG TAB PO SCH (08:20)
[2016-04-06 10:05] VITALS: BP 98/62; PULSE 82; RESP 20; TEMP 97.1; O2SAT 93
--- NOTE | 2016-04-06 13:53 | HHI.PR ---
Subjective Remarks No acute complaints. No change in clinical status. Objective Vitals Vital Signs Date Time Temp Pulse Resp B/P Pulse Ox O2 Delivery O2 Flow Rate FiO2 04/06/16 10:05 97.1 82 20 98/62 93 04/05/16 20:00 98.7 83 20 102/68 95 Automatic Cuff I/O 04/05/16 04/05/16 04/05/16 04/06/16 04/06/16 04/06/16 07:00 15:00 23:00 07:00 15:00 23:00 Intake Total 0 ml 1080 ml 360 ml 0 ml Output Total 350 ml 625 ml Balance 0 ml 730 ml 360 ml -625 ml Intake Oral 0 ml 0 ml IV Total 0 ml Tube Feeding 1080 ml 360 ml Output Urine Total 350 ml 625 ml # Bowel Movements 1 1 Result Diagram: 04/03/16 1320 04/03/16 1320 Objective Remarks GENERAL: Well developed male in no apparent distress. EYES: Lid margin of right upper eyelid is erythematous. No drainage. No preseptal erythema or edema. Right pupil is normal. No conjunctival injection right eye. CARDIOVASCULAR: Regular rate and rhythm. RESPIRATORY: Limited anterior exam. No accessory muscle use. Clear to auscultation bilaterally. GASTROINTESTINAL: Normoactive bowel sounds. Abdomen soft, non-tender, non- distended. NEUROLOGICAL: Awake and alert. Responds to questions by nodding head. Follows commands. PSYCHIATRIC: Does not speak. Calm affect. Procedures None Urinary Catheter: Yes Assessment to: Continue Soto insert reason: Prolonged Immobilization Date of Insertion: Mar 24, 2016 Vascular Central Line Catheter: No A/P Problem List: (1) GI bleed ICD Code: K92.2 Status: Resolved (2) Essential tremor ICD Code: G25.0 Status: Chronic (3) Dementia ICD Code: F03.90 Status: Chronic (4) Parkinson disease ICD Code: G20 Status: Chronic (5) Hypotension ICD Code: I95.9 Status: Chronic (6) Loose stools ICD Code: R19.5 Status: Resolved (7) Chalazion of right upper eyelid ICD Code: H00.11 Status: Acute Assessment and Plan Upper GI bleed resolved. Developed bloody stools on 03/06. Hemoccult positive. Resolved. Hemoglobin has remained stable. Continue PPI. CT of the abdomen was performed 11/2 which showed a large stool ball noted within the rectum and a large amount of stool throughout the colon. GI evaluated patient and states bleeding is likely related to constipation/ stool impaction. Monitor BMs. Protein calorie malnutrition: Continue bolus feeds with free water flushes. 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 Groping the nursing staff, indicating sexual activities Patient has been hospitalized for similar events in 2015 Consulted psychiatry for further evaluation, who indicated that this is a frontal lobe dementia Continue Risperdal 0.25 mg every 12 hours instead of 0.5 mg due to somnolence. No somnolence today. Chalazion: Persistent nodule R upper eyelid. There is no evidence of preseptal cellulitis. -Warm compresses were applied but it was greater than 2 weeks without significant improvement. -Ophthalmology was consulted and evaluated patient on 03/26. Advises to continue warm compresses qid and started Tobradex 4 times a day OD x 2 weeks. Patient is intermittently compliant with eyedrops. I encouraged use. Follow-up outpatient. Hypotension: Continue Midodrine. Blood pressure labile. Continue to monitor BP. Elevated BUN, stable, BUN 22. Continue free water flushes via PEG tube to avoid dehydration. Loose stools: Resolved. C. difficile negative. Stool culture and O&P negative. Continue Lactinex. Stage I decubitus ulcer, sacral skin tear: Continue wound care. Parkinson's disease: Patient has dementia and resting tremor. Chronic, stable. Mood disorder: Stable Continue Remeron. Mild obstructive uropathy: Resolved Appreciate urology recommendations. Suprapubic catheter in place, last changed 03/24/16. To be changed monthly. Abdominal pelvis CT 03/06/16 shows resolution of right sided hydronephrosis. Urinary tract infection, resolved Urine culture positive for Proteus mirabilis and GBS. Patient has completed course of antibiotics. Abdominal pelvis CT 03/06 shows decompressed bladder with circumferential bladder wall thickening and intraluminal air possibly indicating cystitis, but the patient has been afebrile with normal WBC count. No treatment indicated. Weakness: Continue physical therapy Nursing staff to get patient up out of bed at least 3 times daily DVT prophylaxis: SCDs. Avoid chemical prophylaxis secondary to GI bleed. Discharge Planning manager of environmental services working on long-term care placement. Awaiting SSI/Medicaid to review documentation. PT recommends rehabilitation. Madeline Ortez Apr 06, 2016 13:53
[2016-04-06 20:00] VITALS: BP 100/69; PULSE 78; RESP 18; TEMP 97.8; O2SAT 95
[2016-04-06] MEDS: MIRTAZAPINE 15 MG TAB PEG SCH (20:52)
[2016-04-06] MEDS: risperiDONE 0.5 MG TAB PO SCH (20:52)
[2016-04-07] MEDS: TOBRAMYCIN 0.3%/DEXAMETHASONE 0.1% OPHT SUSP 5 ML BTL RIGHT EYE SCH ×5 (00:24→23:52)
[2016-04-07] MEDS: MIDODRINE 5 MG TAB PO SCH ×3 (06:20→17:40)
[2016-04-07 08:00] VITALS: BP 119/61; PULSE 92; RESP 16; TEMP 96.8; O2SAT 95
[2016-04-07] MEDS: risperiDONE 0.25 MG TAB PO SCH (08:51)
[2016-04-07] MEDS: LANSOPRAZOLE SOLUTAB 30 MG TAB PEG SCH (08:51)
[2016-04-07] MEDS: ALLOPURINOL 100 MG TAB PEG SCH (08:51)
--- NOTE | 2016-04-07 11:20 | HHI.PR ---
Subjective Remarks Patient seen and examined today. Patient denies any new complaints. No change in clinical status. Objective Vitals Vital Signs Date Time Temp Pulse Resp B/P Pulse Ox O2 Delivery O2 Flow Rate FiO2 04/07/16 08:00 96.8 92 16 119/61 95 04/06/16 20:00 97.8 78 18 100/69 95 I/O 04/06/16 04/06/16 04/06/16 04/07/16 04/07/16 04/07/16 07:00 15:00 23:00 07:00 15:00 23:00 Intake Total 0 ml 360 ml Output Total 625 ml Balance -625 ml 360 ml Intake Oral 0 ml Tube Feeding 360 ml Output Urine Total 625 ml # Bowel Movements 1 1 Result Diagram: 04/03/16 1320 04/03/16 1320 Objective Remarks GENERAL: Well-developed, well-nourished, in no acute distress. More alert today HEENT: Head is normocephalic without any lesions or masses noted. Facial features are symmetric. Eyes: Extraocular muscles are intact. Conjunctivae were clear. Mild edema noted to right upper eyelid NECK: Supple without any masses. Trachea midline no deviation. No JVD, no bruits are appreciated CARDIAC: Regular rhythm, regular rate. S1/S2 are heard. No murmurs gallops or rubs. LUNGS: Clear to auscultation bilaterally. No wheeze, rhonchi or rales. No use of accessory muscles on inspiration or expiration. ABDOMEN: Soft, nontender. Nondistended. Bowel sounds heard in all 4 quadrants. No organomegaly or masses. Negative rebound, negative guarding, suprapubic catheter in place, PEG tube noted EXTREMITIES: No edema, pulses are equal bilaterally. No cyanosis or clubbing NEUROLOGY: Mood and affect appear appropriate. Cranial nerves II through XII grossly intact. Moving all extremities Procedures None Urinary Catheter: Yes Assessment to: Continue Soto insert reason: Prolonged Immobilization Date of Insertion: Mar 24, 2016 Vascular Central Line Catheter: No A/P Assessment and Plan Upper GI bleed: Resolved. Patient had episode of 1 bloody stool on 03/06, Hemoccult-positive Hemoglobin has remained stable during his stay in the hospital GI was reconsulted and following Continue PPI. Protein calorie malnutrition: Consulted dietitian who indicated that patient may be converted to bolus feeding Jevity 1.5, 6 cans per day. 1.5 cans that 0800 and 2000, 1 can at 1100, 1400, 1700 Prealbumin level 24 Dementia with inappropriate behavior, recurrent patient more somnolent today, likely secondary to medication use, patient is afebrile, no tachycardia, no signs of infection. Patient was with inappropriate sexual behavior. Groping the nursing staff, indicating sexual activities, Patient has been hospitalized for similar events in 2015 Consulted psychiatry for further evaluation, who indicated that this is a frontal lobe dementia Risperdal 0.25 mg during the day, Risperdal 0.5 mg at night Right upper eyelid chalazion Continue warm compresses, keep clean TobraDex eyedrops Ophthalmology has evaluated the patient and made recommendations Hypotension with episodes of hypertension: Stable Blood pressure labile. Continue monitor blood pressure Continue Midodrine. Elevated BUN, stable Continue fluid flushes via PEG tube to avoid dehydration. Loose stools: Resolved. C. difficile negative. Stool culture and O&P negative. Continue Lactinex. Stage I decubitus ulcer, sacral skin tear: Continue wound care. Parkinson's disease: Patient has dementia and resting tremor. Chronic, stable. Mood disorder: Stable Continue Remeron. Mild obstructive uropathy: Resolved Appreciate urology recommendations. Suprapubic catheter in place, last changed 03/28/16. To be changed monthly. Urinary tract infection, resolved Urine culture positive for Proteus mirabilis and GBS. Patient has completed course of antibiotics. Weakness: Continue physical therapy Nursing staff to get patient up out of bed at least 3 times daily DVT prophylaxis: SCDs. Avoid chemical prophylaxis secondary to GI bleed. Discharge Planning Discharge planning to longterm facility once arrangements made by case management 04/04/16 2555 SPOKE WITH FRANKLIN AT [facility] R/T UPDATE ON SSI/MEDICIAID FOR PLACEMENT ASSISTANCE. WAS INFORMED STILL PENDING BUT SHE WAS REAHING OUT TO [facility] FOR UPDATE AND TIME LINE CECILE JOAQUIN LPN/Jaguar Rm Apr 07, 2016 11:20
[2016-04-07 20:00] VITALS: BP 108/78; PULSE 72; RESP 18; TEMP 96.5; O2SAT 95
[2016-04-07] MEDS: MIRTAZAPINE 15 MG TAB PEG SCH (21:08)
[2016-04-07] MEDS: risperiDONE 0.5 MG TAB PO SCH (21:08)
[2016-04-08] MEDS: TOBRAMYCIN 0.3%/DEXAMETHASONE 0.1% OPHT SUSP 5 ML BTL RIGHT EYE SCH ×4 (06:37→23:54)
[2016-04-08] MEDS: MIDODRINE 5 MG TAB PO SCH ×3 (06:38→17:25)
[2016-04-08] MEDS: LANSOPRAZOLE SOLUTAB 30 MG TAB PEG SCH (08:38)
[2016-04-08] MEDS: risperiDONE 0.25 MG TAB PO SCH (08:38)
[2016-04-08] MEDS: ALLOPURINOL 100 MG TAB PEG SCH (08:38)
--- NOTE | 2016-04-08 09:15 | HHI.PR ---
Subjective Remarks Patient seen and examined today. Patient denies any new complaints. No change in clinical status. Objective Vitals Vital Signs Date Time Temp Pulse Resp B/P Pulse Ox O2 Delivery O2 Flow Rate FiO2 04/07/16 20:00 96.5 72 18 108/78 95 I/O 04/07/16 04/07/16 04/07/16 04/08/16 04/08/16 04/08/16 06:59 14:59 22:59 06:59 14:59 22:59 Intake Total 840 ml 480 ml Output Total 521 ml Balance 319 ml 480 ml Tube Feeding 840 ml 360 ml Other 120 ml Output Urine Total 520 ml Stool Total 1 ml Objective Remarks GENERAL: Well-developed, well-nourished, in no acute distress. More alert today HEENT: Head is normocephalic without any lesions or masses noted. Facial features are symmetric. Eyes: Extraocular muscles are intact. Conjunctivae were clear. Mild edema noted to right upper eyelid NECK: Supple without any masses. Trachea midline no deviation. No JVD, no bruits are appreciated CARDIAC: Regular rhythm, regular rate. S1/S2 are heard. No murmurs gallops or rubs. LUNGS: Clear to auscultation bilaterally. No wheeze, rhonchi or rales. No use of accessory muscles on inspiration or expiration. ABDOMEN: Soft, nontender. Nondistended. Bowel sounds heard in all 4 quadrants. No organomegaly or masses. Negative rebound, negative guarding, suprapubic catheter in place, PEG tube noted EXTREMITIES: No edema, pulses are equal bilaterally. No cyanosis or clubbing NEUROLOGY: Mood and affect appear appropriate. Cranial nerves II through XII grossly intact. Moving all extremities Procedures None Urinary Catheter: Yes Assessment to: Continue Soto insert reason: Prolonged Immobilization Date of Insertion: Mar 24, 2016 Vascular Central Line Catheter: No A/P Assessment and Plan Upper GI bleed: Resolved. Patient had episode of 1 bloody stool on 03/06, Hemoccult-positive Hemoglobin has remained stable during his stay in the hospital GI was reconsulted and following Continue PPI. Protein calorie malnutrition: Consulted dietitian who indicated that patient may be converted to bolus feeding Jevity 1.5, 6 cans per day. 1.5 cans that 0800 and 2000, 1 can at 1100, 1400, 1700 Prealbumin level 24 Dementia with inappropriate behavior, recurrent patient more somnolent today, likely secondary to medication use, patient is afebrile, no tachycardia, no signs of infection. Patient was with inappropriate sexual behavior. Groping the nursing staff, indicating sexual activities, Patient has been hospitalized for similar events in 2015 Consulted psychiatry for further evaluation, who indicated that this is a frontal lobe dementia Risperdal 0.25 mg during the day, Risperdal 0.5 mg at night Right upper eyelid chalazion Continue warm compresses, keep clean TobraDex eyedrops Ophthalmology has evaluated the patient and made recommendations Hypotension with episodes of hypertension: Stable Blood pressure labile. Continue monitor blood pressure Continue Midodrine. Elevated BUN, stable Continue fluid flushes via PEG tube to avoid dehydration. Loose stools: Resolved. C. difficile negative. Stool culture and O&P negative. Continue Lactinex. Stage I decubitus ulcer, sacral skin tear: Continue wound care. Parkinson's disease: Patient has dementia and resting tremor. Chronic, stable. Mood disorder: Stable Continue Remeron. Mild obstructive uropathy: Resolved Appreciate urology recommendations. Suprapubic catheter in place, last changed 03/28/16. To be changed monthly. Urinary tract infection, resolved Urine culture positive for Proteus mirabilis and GBS. Patient has completed course of antibiotics. Weakness: Continue physical therapy Nursing staff to get patient up out of bed at least 3 times daily DVT prophylaxis: SCDs. Avoid chemical prophylaxis secondary to GI bleed. Discharge Planning Discharge planning to [facility] facility once arrangements made by case management 04/04/16 0875 SPOKE WITH FRANKLIN AT [facility] R/T UPDATE ON SSI/MEDICIAID FOR PLACEMENT ASSISTANCE. WAS INFORMED STILL PENDING BUT SHE WAS REAHING OUT TO [facility] FOR UPDATE AND TIME LINE CECILE JOAQUIN LPN/Jaguar Rm Apr 08, 2016 09:15
[2016-04-08 09:32] VITALS: BP 102/70; PULSE 78; RESP 16; TEMP 98.6; O2SAT 94
[2016-04-08 20:00] VITALS: BP 103/63; PULSE 76; RESP 18; TEMP 97.6; O2SAT 94
[2016-04-08] MEDS: risperiDONE 0.5 MG TAB PO SCH (21:26)
[2016-04-08] MEDS: MIRTAZAPINE 15 MG TAB PEG SCH (21:26)
[2016-04-09] MEDS: TOBRAMYCIN 0.3%/DEXAMETHASONE 0.1% OPHT SUSP 5 ML BTL RIGHT EYE SCH (05:49)
[2016-04-09] MEDS: MIDODRINE 5 MG TAB PO SCH ×3 (05:50→16:14)
[2016-04-09 08:00] VITALS: BP 102/66; PULSE 78; RESP 17; TEMP 98.5; O2SAT 93
[2016-04-09] MEDS: ALLOPURINOL 100 MG TAB PEG SCH (08:13)
[2016-04-09] MEDS: LANSOPRAZOLE SOLUTAB 30 MG TAB PEG SCH (08:13)
[2016-04-09] MEDS: risperiDONE 0.25 MG TAB PO SCH (09:00)
--- NOTE | 2016-04-09 10:19 | HHI.PR ---
Subjective Remarks Patient seen and examined today. Patient denies any new complaints. No change in clinical status. Objective Vitals Vital Signs Date Time Temp Pulse Resp B/P Pulse Ox O2 Delivery O2 Flow Rate FiO2 04/09/16 08:00 98.5 78 17 102/66 93 04/08/16 20:00 97.6 76 18 103/63 94 I/O 04/08/16 04/08/16 04/08/16 04/09/16 04/09/16 04/09/16 07:00 15:00 23:00 07:00 15:00 23:00 Intake Total 1680 ml 120 ml Output Total 450 ml Balance 1230 ml 120 ml Tube Feeding 1440 ml Other 240 ml 120 ml Output Urine Total 450 ml # Bowel Movements 1 Objective Remarks GENERAL: Well-developed, well-nourished, in no acute distress. More alert today HEENT: Head is normocephalic without any lesions or masses noted. Facial features are symmetric. Eyes: Extraocular muscles are intact. Conjunctivae were clear. Mild edema noted to right upper eyelid NECK: Supple without any masses. Trachea midline no deviation. No JVD, no bruits are appreciated CARDIAC: Regular rhythm, regular rate. S1/S2 are heard. No murmurs gallops or rubs. LUNGS: Clear to auscultation bilaterally. No wheeze, rhonchi or rales. No use of accessory muscles on inspiration or expiration. ABDOMEN: Soft, nontender. Nondistended. Bowel sounds heard in all 4 quadrants. No organomegaly or masses. Negative rebound, negative guarding, suprapubic catheter in place, PEG tube noted EXTREMITIES: No edema, pulses are equal bilaterally. No cyanosis or clubbing NEUROLOGY: Mood and affect appear appropriate. Cranial nerves II through XII grossly intact. Moving all extremities Procedures None Urinary Catheter: Yes Assessment to: Continue Date of Insertion: Mar 24, 2016 Vascular Central Line Catheter: No A/P Assessment and Plan Upper GI bleed: Resolved. Patient had episode of 1 bloody stool on 03/06, Hemoccult-positive Hemoglobin has remained stable during his stay in the hospital GI was reconsulted and following Continue PPI. Protein calorie malnutrition: Consulted dietitian who indicated that patient may be converted to bolus feeding Jevity 1.5, 6 cans per day. 1.5 cans that 0800 and 2000, 1 can at 1100, 1400, 1700 Prealbumin level 24 Dementia with inappropriate behavior, recurrent patient more somnolent today, likely secondary to medication use, patient is afebrile, no tachycardia, no signs of infection. Patient was with inappropriate sexual behavior. Groping the nursing staff, indicating sexual activities, Patient has been hospitalized for similar events in 2015 Consulted psychiatry for further evaluation, who indicated that this is a frontal lobe dementia Risperdal 0.25 mg during the day, Risperdal 0.5 mg at night Right upper eyelid chalazion Continue warm compresses, keep clean TobraDex eyedrops Ophthalmology has evaluated the patient and made recommendations Hypotension with episodes of hypertension: Stable Blood pressure labile. Continue monitor blood pressure Continue Midodrine. Elevated BUN, stable Continue fluid flushes via PEG tube to avoid dehydration. Loose stools: Resolved. C. difficile negative. Stool culture and O&P negative. Continue Lactinex. Stage I decubitus ulcer, sacral skin tear: Continue wound care. Parkinson's disease: Patient has dementia and resting tremor. Chronic, stable. Mood disorder: Stable Continue Remeron. Mild obstructive uropathy: Resolved Appreciate urology recommendations. Suprapubic catheter in place, last changed 03/28/16. To be changed monthly. Urinary tract infection, resolved Urine culture positive for Proteus mirabilis and GBS. Patient has completed course of antibiotics. Weakness: Continue physical therapy Nursing staff to get patient up out of bed at least 3 times daily DVT prophylaxis: SCDs. Avoid chemical prophylaxis secondary to GI bleed. Discharge Planning Discharge planning to [facility] facility once arrangements made by case management 04/04/16 7235 SPOKE WITH FRANKLIN AT [facility] R/T UPDATE ON SSI/MEDICIAID FOR PLACEMENT ASSISTANCE. WAS INFORMED STILL PENDING BUT SHE WAS REAHING OUT TO [facility] FOR UPDATE AND TIME LINE CECILE JOAQUIN LPN/Jaguar Rm Apr 09, 2016 10:19
[2016-04-09] MEDS: MIRTAZAPINE 15 MG TAB PEG SCH (20:35)
[2016-04-09] MEDS: risperiDONE 0.5 MG TAB PO SCH (20:35)
[2016-04-10] MEDS: MIDODRINE 5 MG TAB PO SCH ×4 (05:59→17:34)
[2016-04-10 08:00] VITALS: BP 113/78; PULSE 81; RESP 17; TEMP 96.1; O2SAT 94
[2016-04-10] MEDS: LANSOPRAZOLE SOLUTAB 30 MG TAB PEG SCH (08:14)
[2016-04-10] MEDS: risperiDONE 0.25 MG TAB PO SCH (08:14)
[2016-04-10] MEDS: ALLOPURINOL 100 MG TAB PEG SCH (08:14)
[2016-04-10 09:34] LABS: AUTOMATED NEUTROPHIL # 3.8 TH/MM3 (1.8-7.7); BASOPHIL % 0.4 % (0.0-2.0); EOSINOPHIL # 0.3 TH/MM3 (0-0.4); EOSINOPHIL % 3.6 % (0.0-4.0); HEMATOCRIT 43.8 % (39.0-51.0); HEMO FLAGS DIFF FINAL; LYMPH % 37.3 % (9.0-44.0); LYMPHOCYTE # 2.8 TH/MM3 (1.0-4.8); MEAN CELL VOLUME 88.2 FL (80.0-100.0); MEAN CORPUSCULAR HEMOGLOBIN 28.1 PG (27.0-34.0); MEAN CORPUSCULAR HGB CONC 31.8 % (32.0-36.0); MONO % 6.7 % (0.0-8.0); PLATELET COUNT 176 TH/MM3 (150-450); RED BLOOD COUNT 4.96 MIL/MM3 (4.50-5.90); RED CELL DISTRIBUTION WIDTH 15.7 % (11.6-17.2); WHITE BLOOD COUNT 7.4 TH/MM3 (4.0-11.0)
--- NOTE | 2016-04-10 09:52 | HHI.PR ---
Subjective Remarks Patient seen and examined today. Patient is alert today, he is trying to pull out his suprapubic catheter. Patient states that he does not want to have any further treatment, and he wants us to contact his who is his power of asphalt patcher to discuss with her continuation of care and management. I discussed with him consulting palliative care to help with discerning his goals of care. He is open to that request at this time. Objective Vitals Vital Signs Date Time Temp Pulse Resp B/P Pulse Ox O2 Delivery O2 Flow Rate FiO2 04/10/16 08:00 96.1 81 17 113/78 94 I/O 04/09/16 04/09/16 04/09/16 04/10/16 04/10/16 04/10/16 06:59 14:59 22:59 06:59 14:59 22:59 Intake Total 120 ml 0 ml 1680 ml 60 ml Output Total 250 ml 550 ml 300 ml Balance 120 ml -250 ml 1130 ml -240 ml Intake Oral 0 ml 0 ml Tube Feeding 1440 ml Other 120 ml 240 ml 60 ml Output Urine Total 250 ml 550 ml 300 ml # Bowel Movements 2 2 1 Result Diagram: 04/10/16 0900 Objective Remarks GENERAL: Well-developed, well-nourished, in no acute distress. More alert today HEENT: Head is normocephalic without any lesions or masses noted. Facial features are symmetric. Eyes: Extraocular muscles are intact. Conjunctivae were clear. Mild edema noted to right upper eyelid NECK: Supple without any masses. Trachea midline no deviation. No JVD, no bruits are appreciated CARDIAC: Regular rhythm, regular rate. S1/S2 are heard. No murmurs gallops or rubs. LUNGS: Clear to auscultation bilaterally. No wheeze, rhonchi or rales. No use of accessory muscles on inspiration or expiration. ABDOMEN: Soft, nontender. Nondistended. Bowel sounds heard in all 4 quadrants. No organomegaly or masses. Negative rebound, negative guarding, suprapubic catheter in place, PEG tube noted EXTREMITIES: No edema, pulses are equal bilaterally. No cyanosis or clubbing NEUROLOGY: Mood and affect appear appropriate. Cranial nerves II through XII grossly intact. Moving all extremities Procedures None Urinary Catheter: Yes Assessment to: Continue Soto insert reason: Prolonged Immobilization Date of Insertion: Mar 24, 2016 Vascular Central Line Catheter: No A/P Assessment and Plan Upper GI bleed: Resolved. Patient had episode of 1 bloody stool on 03/06, Hemoccult-positive Hemoglobin has remained stable during his stay in the hospital GI was reconsulted and following Continue PPI. Protein calorie malnutrition: Improving Consulted dietitian who indicated that patient may be converted to bolus feeding Jevity 1.5, 6 cans per day. 1.5 cans that 0800 and 2000, 1 can at 1100, 1400, 1700 Prealbumin level 24 Dementia with inappropriate behavior, improved patient more somnolent today, likely secondary to medication use, patient is afebrile, no tachycardia, no signs of infection. Patient was with inappropriate sexual behavior. Groping the nursing staff, indicating sexual activities, Patient has been hospitalized for similar events in 2014 Consulted psychiatry for further evaluation, who indicated that this is a frontal lobe dementia Risperdal 0.25 mg during the day, Risperdal 0.5 mg at night Right upper eyelid chalazion Continue warm compresses, keep clean TobraDex eyedrops Ophthalmology has evaluated the patient and made recommendations Hypotension with episodes of hypertension: Stable Blood pressure labile. Continue monitor blood pressure Continue Midodrine. Elevated BUN, stable Continue fluid flushes via PEG tube to avoid dehydration. Loose stools: Resolved. C. difficile negative. Stool culture and O&P negative. Continue Lactinex. Stage I decubitus ulcer, sacral skin tear: Continue wound care. Parkinson's disease: Patient has dementia and resting tremor. Chronic, stable. Mood disorder: Stable Continue Remeron. Mild obstructive uropathy: Resolved Appreciate urology recommendations. Suprapubic catheter in place, last changed 03/28/16. To be changed monthly. Urinary tract infection, resolved Urine culture positive for Proteus mirabilis and GBS. Patient has completed course of antibiotics. Weakness: Continue physical therapy Nursing staff to get patient up out of bed at least 3 times daily Goals of care, management continuation: Patient does not want further care, he wants his catheter removed. We'll consult palliative care for further evaluation and obtaining goals of care DVT prophylaxis: SCDs. Avoid chemical prophylaxis secondary to GI bleed. Discharge Planning Discharge planning to intermediate facility once arrangements made by case management 04/09/16 1352 RECEIVED INFORMATION FROM [employer] [facility] THAT MEDICAID APPROVED, CALLED [facility] TO EVAL FOR REHAB/INTERMEDIATE FAMILY LIVES IN [facility] [place]. CECILE JOAQUIN LPN/CM CHARGE [facility] Apr 10, 2016 09:52
[2016-04-10 10:16] LABS: POTASSIUM 3.9 MEQ/L (3.5-5.1)
[2016-04-10 10:19] LABS: BICARBONATE 31.8 MEQ/L (21.0-32.0)
--- NOTE | 2016-04-10 14:33 | PD.CONS ---
Consult Service Palliative Care Consult Requested By [facility] Physician Alexus Anglin MD Reason for Consultation a. To assist with evaluation and management of symptoms including:pain b. To assist medical decision maker(s) with: better understanding of current medical conditions; weighing benefits/burdens of medical treatment options; making medical treatment decisions. HPI History of Present Illness Pt has been here since January 20 2016 and palliative care have been consulted 81 days into the hospital stay to help with goals of care. Pt's son also has been in contact with a hospice at the very least since 12/23/2015. Pt in May 2015 started to decline rapidly, previously is independent of ADLs. He started not to be able to ambulate ad not eat. Subsequently son had a feeding tube placed as son as indicated to the hospice nurse, that he knows his father does not want to . He says the patient has been in [place] [facility] a year ago and he was the same way because they had put him on all types of psych medication and when he asked them to stop all of the medications, and he was gradually weaned off he did well, he was back to himself, but now that he has been in the nursing facility they had him on all these drugs that he has become extremely paranoid. At the time, son says he believes it is the antibiotics and psych medications that is causing him to be the way he is now. He declined hospice multiple times; hospice have been in touch with him monthly throughout hospitalization, and he has declined hospice services. For current hospitalization, patient is a 76-year-old male with a past medical history of anorexia/protein calorie malnutrition (G-tube fed), right knee osteoarthritis, essential tremors thought to be Parkinson's at one time, hiatal hernia, gout, hypothyroidism, suprapubic catheter, suspected hepatitis that presented to the emergency department with coffee ground emesis on 01/20/2016. Patient was a poor historian that time. Abdominal CT Mild obstructive uropathy on the right without visualization of radiopaque calculus. The tip of the suprapubic catheter is wedged in the region of the right UVJ and may be causing the obstruction. Recommend repositioning of the suprapubic catheter. 2. Cholelithiasis. 3. Renal low densities bilaterally likely related to cyst. 4. Percutaneous gastrostomy tube. hgb is 16.5, WBC 13.3, afebrile, he is hypotensive and tachycardic. ER physician attempted to reposition suprapubic catheter. GI doctor was consulted for patient upper GI bleed. Patient was admitted to the hospitalist services. * GI doctor came by to evaluate patient, PEG tube is clear. Patient placed on PPI, no active bleeding. Patient was monitored on H&H and transfuse as needed. Depending on course possible EGD. * Patient was found to have loose stool. Patient is C. difficile negative. Suprapubic catheter was found to be malfunctioning and patient has urine passing through penis. Urology change out suprapubic catheter. Patient started on antidiarrheal motility agents * Reading the discharge note on January 22, 2016, appears that DCF has been involved in patient's case. Patient was given a 30 day notice of discharge from [facility] rehabilitation, but [facility] has upheld the discharge order. It appears that placement have been an issue. * Pt GI bleed appears to have stabilized and GI has signed off by 01/22/2016. He remains on tube feeds. Pt was suprapubic catheter functioning and is to be changed monthly. sacral decub stage I being managed by wound care nurse. Loose stool have resolved and maintained on dysmotility agent and lactinex. * February 11, 2016 pt started cipro eye drop for possible conjuntivitis. * There are issues with the peg tube being clogged and was managed. Pt continue to be a placement problem. * 03/06/2016- CT of the abdomen (03/06) due to reported abdominal pain which showed a large stool ball noted within the rectum and a large amount of stool throughout the colon. Pt started moving his bowels, the bleeding is likely related to constipation/stool impaction. H/H has remained stable. No further bleeding. * 03/12/2016- Pt has no further bleeding. TF continues * Pt has dementia with inappropriate behavior and was noted to have inapporopriate sexual behavior, groping the nursing staff. Psych have been consulted and diagnose pt with frontal lobe dementia. Pt on risperdal. * It appears pt placement issue have been resolved and finally have been accepted to [facility]. Pt spoke with PA this morning stating he did not want aggressive care and that his POA is , hence palliative care was consulted. I have ask palliative care nursing home social worker to clarify and it appears the the POA is pt's Mayito Orlando, not pt's spouse. Pt currently has frontal temoporal dementia . On my visit, pt is clearly confused, stated that I have visited his property before. I met with son Orlando, who was in the room. Pt say his POA is spouse, but pt have been for 36 years. He denies pain or discomfort but wanted to have his scds off. Pt is pleasant. I have a long talk with son Orlando, who feels very strongly that most of his father's deterioration and mentation problem is due to various antibiotics such as cipro, levaquin, depakote, olazapine etc. I sat there extensively and listen to pt decline and what the son feels strongly is attributable to antibitoics and psych meds. Long talk with pt stating I am sorry his father is in his state now, but I don' t know in terms of his condition, it is reversible or that he will get better. He has suprapubic catheter and peg tube in which he is at risk of multiple infections and will be exposed to abx. He will/ and has need placement in facilities that unfortunately if he display behavior likely will need to give him psych meds. 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 Pt's son recognizes, that but then continue to say I still don't want him to be on risperdal. I ask him that hospice have been calling him and keeping in touch with him. He states, his father is not ready to pass away or . He hopes that pt get go to a facility and then be well enough to go home. He acknowledges the challenge. He acknowledge the challenges with placement. He declines hospice services. Function/Cognitive Trajectory Please see HPI. Review of Systems ROS Limitations: Clinical Condition, Poor Historian Past Family Social History Coded Allergies: Depakote (Verified Allergy, Severe, 01/20/16) Levaquin (Verified Allergy, Severe, 01/20/16) Olanzapine (Verified Allergy, Severe, 01/20/16) Ciprofloxacin (Verified Allergy, Intermediate, Hallucinations, 01/20/16) per pt's son Hydrocodone (Verified Allergy, Intermediate, Hallucinations, 01/20/16) per pt's son Seroquel (Verified Allergy, Intermediate, Rash, 01/20/16) Past Medical History Anorexia/Protein calorie malnutrition/history of dysphagia Unspecified dementia Right Knee Osteoarthritis Essential tremor (thought to be Parkinson's at one time) Hiatal hernia with GERD without esophagitis Hypothyroidism Gout of the right elbow Hepatitis C? Past Surgical History PEG tube placement Suprapubic catheter placement Reported Medications Colcrys (Colchicine) 0.6 Mg Tab 0.6 Mg PEG DAILY PRN Tylenol 325 Mg Tab (Acetaminophen) 325 Mg Tab 650 Mg PEG Q8HR PRN Tramadol Hcl (Tramadol HCl) 50 Mg Tab 50 Mg PEG Q12HR PRN Allopurinol 100 Mg Tab 100 Mg PEG DAILY Calcium + D (Calcium Carbonate-Vitamin D) 600 Mg Tab 1 Tab PEG DAILY Zantac (Ranitidine HCl) 150 Mg Tab 150 Mg PEG BID Loperamide Hcl (Loperamide HCl) 2 Mg Tab 2 Mg PEG Q12HR PRN DO NOT EXCEED 8 TABLETS/CAPSULES PER 24 HOURS Remeron (Mirtazapine) 7.5 Mg Tab 7.5 Mg PEG HS Current Medications Medications (Trade) Dose Ordered Sig/Gayathri Route Start Time Stop Time Status Last Admin (Tylenol) 650 mg Q4H PRN PO 01/20/16 10:15 (Zyloprim) 100 mg DAILY PEG 01/21/16 09:00 04/10/16 08:14 (Remeron) 7.5 mg HS PEG 01/20/16 21:00 04/09/16 20:35 (Pill Splitter) 1 ea UNSCH PRN OTHER 01/20/16 14:15 02/08/16 20:56 (Imodium) 2 mg Q6H PRN PO 01/21/16 12:45 02/09/16 00:04 (Lomotil Tab) 2 tab Q6H PRN PO 01/21/16 12:45 03/24/16 09:11 (Proamatine) 10 mg TID@,12,17 PO 02/18/16 07:00 04/10/16 11:15 (Prevacid Odt) 30 mg DAILY PEG 02/28/16 09:00 04/10/16 08:14 (Dulcolax Supp) 10 mg DAILY PRN MS 03/07/16 10:15 (risperDAL) 0.25 mg DAILY PO 03/27/16 09:00 04/10/16 08:14 (risperDAL) 0.5 mg HS PO 03/26/16 21:00 04/09/16 20:35 Family History inability to provide any history Substance Use Tobacco:no Alcohol:no Prescription med abuse:no Illicits:no Psychosocial History Originally from [facility]. Moved to [place] and bought property. 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 Ecchymoses on upper extremities. No wounds seen anteriorly. Skin temperature appropriate. Not diaphoretic. HEAD: Atraumatic. Normocephalic. EYES: Extraocular motions intact. No scleral icterus. No injection or drainage. Fundi not examined. ENT: Hearing grossly normal. Nose without bleeding or purulent drainage. Throat without visible erythema, exudates, masses, or lesions. NECK: Trachea midline. Supple, nontender. No palpable thyroid enlargement or nodularity. CARDIOVASCULAR: Regular rate and rhythm without murmurs, gallops, or rubs. No JVD. Peripheral pulses symmetric. RESPIRATORY/CHEST: Symmetric, unlabored respirations. Clear to auscultation. Breath sounds equal bilaterally. No wheezes, rales, or rhonchi. GASTROINTESTINAL: Abdomen soft, non-tender, nondistended. No hepato-splenomegaly , or palpable masses. No guarding. Bowel sounds present. GENITOURINARY: Without palpable bladder distension. suprapubic MUSCULOSKELETAL: Extremities without clubbing, cyanosis, or edema. No joint tenderness or effusion noted. No calf tenderness. No mottling or clubbing. LYMPHATICS: No palpable cervical or supraclavicular adenopathy. NEUROLOGICAL: Awake and alert.Confused Follows commands. Moves all extremities. Resting tremors present. PSYCHIATRIC: hallucinations. Diagnostic Tests Laboratory Laboratory Tests Test 04/10/16 09:00 White Blood Count 7.4 TH/MM3 (4.0-11.0) Red Blood Count 4.96 MIL/MM3 (4.50-5.90) Hemoglobin 13.9 GM/DL (13.0-17.0) Hematocrit 43.8 % (39.0-51.0) Mean Corpuscular Volume 88.2 FL (80.0-100.0) Mean Corpuscular Hemoglobin 28.1 PG (27.0-34.0) Mean Corpuscular Hemoglobin 31.8 % Concent (32.0-36.0) Red Cell Distribution Width 15.7 % (11.6-17.2) Platelet Count 176 TH/MM3 (150-450) Mean Platelet Volume 10.3 FL (7.0-11.0) Neutrophils (%) (Auto) 52.0 % (16.0-70.0) Lymphocytes (%) (Auto) 37.3 % (9.0-44.0) Monocytes (%) (Auto) 6.7 % (0.0-8.0) Eosinophils (%) (Auto) 3.6 % (0.0-4.0) Basophils (%) (Auto) 0.4 % (0.0-2.0) Neutrophils # (Auto) 3.8 TH/MM3 (1.8-7.7) Lymphocytes # (Auto) 2.8 TH/MM3 (1.0-4.8) Monocytes # (Auto) 0.5 TH/MM3 (0-0.9) Eosinophils # (Auto) 0.3 TH/MM3 (0-0.4) Basophils # (Auto) 0.0 TH/MM3 (0-0.2) CBC Comment DIFF FINAL Differential Comment Sodium Level 141 MEQ/L (136-145) Potassium Level 3.9 MEQ/L (3.5-5.1) Chloride Level 104 MEQ/L (98-107) Carbon Dioxide Level 31.8 MEQ/L (21.0-32.0) Anion Gap 5 MEQ/L (5-15) Blood Urea Nitrogen 22 MG/DL (7-18) Creatinine 0.70 MG/DL (0.60-1.30) Estimat Glomerular Filtration 109 ML/MIN Rate (>89) Random Glucose 85 MG/DL (74-106) Calcium Level 9.0 MG/DL (8.5-10.1) Result Diagram: 04/10/16 0900 04/10/16 0900 Imaging Last Impressions Abdomen/Pelvis CT 03/06/16 0000 Signed Impressions: Service Date/Time: Sunday, March 06, 2016 22:27 - CONCLUSION: 1. Resolution of right sided hydronephrosis. 2. Renal cysts. 3. Bladder is decompressed and there is circumferential bladder wall thickening and intraluminal air identified. A cystitis is not excluded. 4. A large stool ball is noted within the rectum. 5. Cholelithiasis. 6. Nonobstructing left renal calculus. Speedy Noriega MD Abdomen X-Ray 01/30/16 0000 Signed Impressions: Service Date/Time: Saturday, January 30, 2016 14:17 - CONCLUSION: Satisfactory PEG tube positioning Mikael Valladares MD Patient/Family Conference Issues Discussed: * Palliative care role, purpose, approach * Additional medical, psychosocial, and spiritual history * Patients general health, functional status, and cognitive changes in the months leading up to the current hospitalization * Patient/family understanding of the current medical problems * Patient/family understanding of prognosis * Patients goals of care as best understood from advance directives and/or conversations and/or values * Current medical treatment options and benefits/burdens of those options * Likely scenarios comparing ongoing aggressive care with a transition to comfort measures only * Questions answered to the best of my ability * Palliative care contact information provided Assessment and Plan Disease Oriented Problem List: (1) Dementia with behavioral disturbance Comment: risperdol (2) Protein-calorie malnutrition, mild Comment: tube feedings (3) Essential tremor (4) GI bleed Comment: resolved (5) Loose stools Comment: resolved (6) Frontotemporal dementia with behavioral disturbance Symptom Scale: (1) Anxiety 0-10 Scale: Unable to quantify Comment: from dementia Pertinent Non-Medical Issues Psychosocial: Spiritual: Legal: Ethical issues impacting care: Important Contacts JESEZena Edmond Prognosis 76 year old functionally declined rapidly 1 year ago, with hallucinations, agitations, diagnosed with frontal temporal dementia, on feeding tube and supra pubic catheter. At risk for mutliple agitation, infections, hospitalizations if able to be discharged, sepsis, setback and decline. Code Status: Full Code Plan == code full code. == capacity- has no capacity to make medical decisions. Pt have been from for 30 years. On my visit, stated I have been to his property and have met him before. == goals: remains aggressive. I have a long talk with son Orlando, who feels very strongly that most of his father's deterioration and mentation problem is due to various antibiotics such as cipro, levaquin, depakote, olazapine etc. I sat there extensively and listen to pt decline and what the son feels strongly is attributable to antibitoics and psych meds. Long talk with pt' son stating I am sorry his father is in his state now, but I don't know in terms of his condition, if it is reversible or that he will get better. It does not appear that way. He has suprapubic catheter and peg tube in which he is at risk of multiple infections and will be exposed to abx. He will/ and has need placement in facilities that unfortunately if he display behavior likely will need to give him psych meds. 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 Pt's son recognizes, that but then continue to say I still don't want him to be on risperdal. I ask him, and he acknowledge that hospice have been calling him and keeping in touch with him. He states, his father is not ready to pass away or . He hopes that pt get go to a facility and then be well enough to go home. He acknowledges the challenge. He acknowledge the challenges with placement. He declines hospice services. =He wants me to reemphasize he does not want pt to be on risperdal. i did tell him it appears he is currently stable and has been on it for a while. Medical team to address. He states he worry about sedation although pt is does not appear to be. == palliative care will follow on a as needed bases, appears pt's son goals are set and clear for the past 81 days. He is amenable for hospice to continue to give him monthly calls. Thank you for the opportunity to participate in the care of Mr. Edmond. Attestation To help prompt me to consider important information that might be impacting today's encounter and assessment, information from prior notes written by myself or my colleagues may have been "brought forward" into today's note. My signature on this note, however, is an attestation that I personally performed the exam, history, and/or decision-making noted today, and, unless otherwise indicated, the interactions with patient, family, and staff as well as the review of records all occurred today. I also attest that the listed assessment and stated plan reflect my best clinical judgment today based on the combination of historical information, prior notes, and today's exam/ interactions. When time spent is documented, it refers only to time spent today by the signer, or if indicated, combined time spent today by collaborating physician/nurse practitioner. Charles Romero MD Apr 10, 2016 14:22
[2016-04-10 20:00] VITALS: BP 103/65; PULSE 78; RESP 20; TEMP 98.6; O2SAT 96
[2016-04-10] MEDS: risperiDONE 0.5 MG TAB PO SCH (20:58)
[2016-04-10] MEDS: MIRTAZAPINE 15 MG TAB PEG SCH (20:58)
[2016-04-11] MEDS: MIDODRINE 5 MG TAB PO SCH ×3 (06:02→16:24)
[2016-04-11] MEDS: LANSOPRAZOLE SOLUTAB 30 MG TAB PEG SCH (08:25)
[2016-04-11] MEDS: risperiDONE 0.25 MG TAB PO SCH (08:25)
[2016-04-11] MEDS: ALLOPURINOL 100 MG TAB PEG SCH (08:25)
--- NOTE | 2016-04-11 08:28 | HHI.PR ---
Subjective Remarks Patient seen and examined today. Patient denies any new complaints. Palliative care has evaluated the patient. Objective Vitals Vital Signs Date Time Temp Pulse Resp B/P Pulse Ox O2 Delivery O2 Flow Rate FiO2 04/10/16 20:00 98.6 78 20 103/65 96 I/O 04/10/16 04/10/16 04/10/16 04/11/16 04/11/16 04/11/16 07:00 15:00 23:00 07:00 15:00 23:00 Intake Total 60 ml 480 ml 900 ml 0 ml Output Total 300 ml 350 ml 250 ml 350 ml Balance -240 ml 130 ml 650 ml -350 ml Intake Oral 0 ml IV Total 0 ml Tube Feeding 360 ml 600 ml Other 60 ml 120 ml 300 ml Output Urine Total 300 ml 350 ml 250 ml 350 ml # Bowel Movements 1 4 0 0 Result Diagram: 04/10/16 0900 04/10/16 0900 Objective Remarks GENERAL: Well-developed, well-nourished, in no acute distress. Patient awake and alert HEENT: Head is normocephalic without any lesions or masses noted. Facial features are symmetric. Eyes: Extraocular muscles are intact. Conjunctivae were clear. Mild edema noted to right upper eyelid NECK: Supple without any masses. Trachea midline no deviation. No JVD, no bruits are appreciated CARDIAC: Regular rhythm, regular rate. S1/S2 are heard. No murmurs gallops or rubs. LUNGS: Clear to auscultation bilaterally. No wheeze, rhonchi or rales. No use of accessory muscles on inspiration or expiration. ABDOMEN: Soft, nontender. Nondistended. Bowel sounds heard in all 4 quadrants. No organomegaly or masses. Negative rebound, negative guarding, suprapubic catheter in place, PEG tube noted EXTREMITIES: No edema, pulses are equal bilaterally. No cyanosis or clubbing NEUROLOGY: Mood and affect appear appropriate. Cranial nerves II through XII grossly intact. Moving all extremities Procedures None Urinary Catheter: Yes Assessment to: Continue Soto insert reason: Prolonged Immobilization Date of Insertion: Mar 24, 2016 Vascular Central Line Catheter: No A/P Assessment and Plan Upper GI bleed: Resolved. Patient had episode of 1 bloody stool on 03/06, Hemoccult-positive Hemoglobin has remained stable during his stay in the hospital GI was reconsulted and following Continue PPI. Protein calorie malnutrition: Improving Consulted dietitian who indicated that patient may be converted to bolus feeding Jevity 1.5, 6 cans per day. 1.5 cans that 0800 and 2000, 1 can at 1100, 1400, 1700 Prealbumin level 24 Dementia with inappropriate behavior, mood disorder improved patient more somnolent today, likely secondary to medication use, patient is afebrile, no tachycardia, no signs of infection. Patient was with inappropriate sexual behavior. Groping the nursing staff, indicating sexual activities, Patient has been hospitalized for similar events in 2015 Consulted psychiatry for further evaluation, who indicated that this is a frontal lobe dementia Risperdal 0.25 mg during the day, Risperdal 0.5 mg at night Continue Remeron Right upper eyelid chalazion Continue warm compresses, keep clean TobraDex eyedrops Ophthalmology has evaluated the patient and made recommendations Hypotension with episodes of hypertension: Stable Blood pressure labile. Continue monitor blood pressure Continue Midodrine. Elevated BUN, stable Continue fluid flushes via PEG tube to avoid dehydration. Stage I decubitus ulcer, sacral skin tear: Continue wound care. Parkinson's disease: Patient has dementia and resting tremor. Chronic, stable. Weakness: Continue physical therapy Nursing staff to get patient up out of bed at least 3 times daily Palliative care evaluation According to palliative care notes. Family wishes aggressive management, they are expecting him to improve, go to a rehabilitation facility and then improve enough to go home. They are deferring hospice. DVT prophylaxis: SCDs. Avoid chemical prophylaxis secondary to GI bleed. Discharge Planning Discharge planning to senior living facility once arrangements made by case management 04/10/16 1545 RECEIEVD CALL FROM [facility] AND THEY HAVE DECLINED TO ACCEPT. WILL CONT TO SEARCH FOR AN ACCEPTING FACILITY CECILE JOAQUIN GASOLINE PUMP INSTALLER/CM CECILE 04/10/16 7975 REQUESTED [facility] [employer] INSTALLER/CM CHARGE Jaguar Walker Apr 11, 2016 08:28
[2016-04-11 10:07] VITALS: BP 122/76; PULSE 89; RESP 18; TEMP 97.9; O2SAT 95
[2016-04-11 20:00] VITALS: BP 102/65; PULSE 59; RESP 16; TEMP 98.4; O2SAT 94
[2016-04-11] MEDS: risperiDONE 0.5 MG TAB PO SCH (22:01)
[2016-04-11] MEDS: MIRTAZAPINE 15 MG TAB PEG SCH (22:01)
[2016-04-12] MEDS: MIDODRINE 5 MG TAB PO SCH ×3 (05:26→16:38)
--- NOTE | 2016-04-12 07:57 | HHI.PR ---
Subjective Remarks Patient seen and examined today. Patient denies any new complaints. No change in clinical status. Objective Vitals Vital Signs Date Time Temp Pulse Resp B/P Pulse Ox O2 Delivery O2 Flow Rate FiO2 04/11/16 20:00 98.4 59 16 102/65 94 04/11/16 10:07 97.9 89 18 122/76 95 I/O 04/11/16 04/11/16 04/11/16 04/12/16 04/12/16 04/12/16 07:00 15:00 23:00 07:00 15:00 23:00 Intake Total 0 ml 1760 ml 560 ml Output Total 350 ml 400 ml 275 ml Balance -350 ml -400 ml 1485 ml 560 ml IV Total 0 ml Tube Feeding 1440 ml 360 ml Other 320 ml 200 ml Output Urine Total 350 ml 400 ml 275 ml # Bowel Movements 0 3 2 1 Result Diagram: 04/10/16 0900 04/10/16 0900 Objective Remarks GENERAL: Well-developed, well-nourished, in no acute distress. Patient awake and alert HEENT: Head is normocephalic without any lesions or masses noted. Facial features are symmetric. Eyes: Extraocular muscles are intact. Conjunctivae were clear. Mild edema noted to right upper eyelid NECK: Supple without any masses. Trachea midline no deviation. No JVD, no bruits are appreciated CARDIAC: Regular rhythm, regular rate. S1/S2 are heard. No murmurs gallops or rubs. LUNGS: Clear to auscultation bilaterally. No wheeze, rhonchi or rales. No use of accessory muscles on inspiration or expiration. ABDOMEN: Soft, nontender. Nondistended. Bowel sounds heard in all 4 quadrants. No organomegaly or masses. Negative rebound, negative guarding, suprapubic catheter in place, PEG tube noted EXTREMITIES: No edema, pulses are equal bilaterally. No cyanosis or clubbing NEUROLOGY: Mood and affect appear appropriate. Cranial nerves II through XII grossly intact. Moving all extremities Procedures None Urinary Catheter: Yes Assessment to: Continue Soto insert reason: Prolonged Immobilization Date of Insertion: Mar 24, 2016 Vascular Central Line Catheter: No A/P Assessment and Plan Upper GI bleed: Resolved. Patient had episode of 1 bloody stool on 03/06, Hemoccult-positive Hemoglobin has remained stable during his stay in the hospital GI was reconsulted and following Continue PPI. Protein calorie malnutrition: Improving Consulted dietitian who indicated that patient may be converted to bolus feeding Jevity 1.5, 6 cans per day. 1.5 cans that 0800 and 2000, 1 can at 1100, 1400, 1700 Prealbumin level 24 Dementia with inappropriate behavior, mood disorder improved patient more somnolent today, likely secondary to medication use, patient is afebrile, no tachycardia, no signs of infection. Patient was with inappropriate sexual behavior. Groping the nursing staff, indicating sexual activities, Patient has been hospitalized for similar events in 2015 Consulted psychiatry for further evaluation, who indicated that this is a frontal lobe dementia Risperdal 0.25 mg during the day, Risperdal 0.5 mg at night Continue Remeron Right upper eyelid chalazion, resolved Continue warm compresses, keep clean TobraDex eyedrops Ophthalmology has evaluated the patient and made recommendations Hypotension with episodes of hypertension: Stable Blood pressure labile. Continue monitor blood pressure Continue Midodrine. Elevated BUN, stable Continue fluid flushes via PEG tube to avoid dehydration. Stage I decubitus ulcer, sacral skin tear: Continue wound care. Parkinson's disease: Patient has dementia and resting tremor. Chronic, stable. Weakness: Continue physical therapy Nursing staff to get patient up out of bed at least 3 times daily Palliative care evaluation According to palliative care notes. Family wishes aggressive management, they are expecting him to improve, go to a rehabilitation facility and then improve enough to go home. They are deferring hospice. DVT prophylaxis: SCDs. Avoid chemical prophylaxis secondary to GI bleed. Discharge Planning Discharge planning to assisted facility once arrangements made by case management 04/10/16 1545 RECEIEVD CALL FROM [facility] AND THEY HAVE DECLINED TO ACCEPT. WILL CONT TO SEARCH FOR AN ACCEPTING FACILITY CECILE LONG DESIGN TECHNOLOGY PROFESSOR/CM CECILE 04/10/16 1353 REQUESTED [facility] TO [facility] CECILE LONG DESIGN TECHNOLOGY PROFESSOR/CM CHARGE 04/11/16 [facility] RE[facility] FOR PLACEMENT CECILE LONG DESIGN TECHNOLOGY PROFESSOR/CM CHARGE REQUESTED [facility] FOR PLACEMENT CECILE LONG DESIGN TECHNOLOGY PROFESSOR/CM Jaguar Walker Apr 12, 2016 07:57
[2016-04-12] MEDS: risperiDONE 0.25 MG TAB PO SCH (08:07)
[2016-04-12] MEDS: ALLOPURINOL 100 MG TAB PEG SCH (08:07)
[2016-04-12] MEDS: LANSOPRAZOLE SOLUTAB 30 MG TAB PEG SCH (08:07)
[2016-04-12 09:23] VITALS: BP 121/77; PULSE 92; RESP 20; TEMP 97.6; O2SAT 97
[2016-04-12 20:00] VITALS: BP 114/71; PULSE 77; RESP 20; TEMP 96.9; O2SAT 93
[2016-04-12] MEDS: MIRTAZAPINE 15 MG TAB PEG SCH (21:09)
[2016-04-12] MEDS: risperiDONE 0.5 MG TAB PO SCH (21:09)
[2016-04-13] MEDS: MIDODRINE 5 MG TAB PO SCH ×3 (06:29→17:35)
[2016-04-13 08:00] VITALS: BP 130/67; PULSE 81; RESP 19; TEMP 96.1; O2SAT 96
--- NOTE | 2016-04-13 08:21 | HHI.PR ---
Subjective Remarks Patient seen and examined today. Patient denies any new complaints. No change in clinical status. Objective Vitals Vital Signs Date Time Temp Pulse Resp B/P Pulse Ox O2 Delivery O2 Flow Rate FiO2 04/12/16 20:00 96.9 77 20 114/71 93 04/12/16 09:23 97.6 92 20 121/77 97 I/O 04/12/16 04/12/16 04/12/16 04/13/16 04/13/16 04/13/16 07:00 15:00 23:00 07:00 15:00 23:00 Intake Total 560 ml 940 ml 543 ml Output Total 600 ml Balance 560 ml 940 ml -57 ml Tube Feeding 360 ml 840 ml 443 ml Other 200 ml 100 ml 100 ml Output Urine Total 600 ml # Bowel Movements 1 2 1 1 Result Diagram: 04/10/16 0900 04/10/16 0900 Objective Remarks GENERAL: Well-developed, well-nourished, in no acute distress. Patient awake and alert HEENT: Head is normocephalic without any lesions or masses noted. Facial features are symmetric. Eyes: Extraocular muscles are intact. Conjunctivae were clear. Mild edema noted to right upper eyelid NECK: Supple without any masses. Trachea midline no deviation. No JVD, no bruits are appreciated CARDIAC: Regular rhythm, regular rate. S1/S2 are heard. No murmurs gallops or rubs. LUNGS: Clear to auscultation bilaterally. No wheeze, rhonchi or rales. No use of accessory muscles on inspiration or expiration. ABDOMEN: Soft, nontender. Nondistended. Bowel sounds heard in all 4 quadrants. No organomegaly or masses. Negative rebound, negative guarding, suprapubic catheter in place, PEG tube noted EXTREMITIES: No edema, pulses are equal bilaterally. No cyanosis or clubbing NEUROLOGY: Mood and affect appear appropriate. Cranial nerves II through XII grossly intact. Moving all extremities Procedures None Urinary Catheter: Yes Assessment to: Continue Soto insert reason: Prolonged Immobilization Date of Insertion: Mar 24, 2016 Vascular Central Line Catheter: No A/P Assessment and Plan Upper GI bleed: Resolved. Patient had episode of 1 bloody stool on 03/06, Hemoccult-positive Hemoglobin has remained stable during his stay in the hospital GI was reconsulted and following Continue PPI. Protein calorie malnutrition: Improving Consulted dietitian who indicated that patient may be converted to bolus feeding Jevity 1.5, 6 cans per day. 1.5 cans that 0800 and 2000, 1 can at 1100, 1400, 1700 Prealbumin level 24 Dementia with inappropriate behavior, mood disorder improved patient more somnolent today, likely secondary to medication use, patient is afebrile, no tachycardia, no signs of infection. Patient was with inappropriate sexual behavior. Groping the nursing staff, indicating sexual activities, Patient has been hospitalized for similar events in 2015 Consulted psychiatry for further evaluation, who indicated that this is a frontal lobe dementia Risperdal 0.25 mg during the day, Risperdal 0.5 mg at night Continue Remeron Right upper eyelid chalazion, resolved Continue warm compresses, keep clean TobraDex eyedrops Ophthalmology has evaluated the patient and made recommendations Hypotension with episodes of hypertension: Stable Blood pressure labile. Continue monitor blood pressure Continue Midodrine. Elevated BUN, stable Continue fluid flushes via PEG tube to avoid dehydration. Stage I decubitus ulcer, sacral skin tear: Continue wound care. Parkinson's disease: Patient has dementia and resting tremor. Chronic, stable. Weakness: Continue physical therapy Nursing staff to get patient up out of bed at least 3 times daily Palliative care evaluation According to palliative care notes. Family wishes aggressive management, they are expecting him to improve, go to a rehabilitation facility and then improve enough to go home. They are deferring hospice. DVT prophylaxis: SCDs. Avoid chemical prophylaxis secondary to GI bleed. Discharge Planning Discharge planning to half-way facility once arrangements made by case management 04/10/16 1545 RECEIEVD CALL FROM [facility] AND THEY HAVE DECLINED TO ACCEPT. WILL CONT TO SEARCH FOR AN ACCEPTING FACILITY CECILE LONG PHOTOGRAPHY COLORIST/CM CECILE 04/10/16 1353 [facility] CECILE LONG PHOTOGRAPHY COLORIST/CM CHARGE 04/11/16 1436 [facility] DECLINED REQUESTED [facility] TO [facility] FOR PLACEMENT CECILE LONG PHOTOGRAPHY COLORIST/CM CHARGE REQUESTED [facility] FOR PLACEMENT CECILE LONG PHOTOGRAPHY COLORIST/CM Jaguar Walker Apr 13, 2016 08:21
[2016-04-13] MEDS: LANSOPRAZOLE SOLUTAB 30 MG TAB PEG SCH (08:58)
[2016-04-13] MEDS: ALLOPURINOL 100 MG TAB PEG SCH (08:58)
[2016-04-13] MEDS: risperiDONE 0.25 MG TAB PO SCH (08:58)
[2016-04-13 21:42] VITALS: BP 104/71; PULSE 88; RESP 16; TEMP 98.3; O2SAT 95
[2016-04-13] MEDS: MIRTAZAPINE 15 MG TAB PEG SCH (22:52)
[2016-04-13] MEDS: risperiDONE 0.5 MG TAB PO SCH (22:52)
[2016-04-14] MEDS: MIDODRINE 5 MG TAB PO SCH ×3 (05:09→16:24)
[2016-04-14 08:00] VITALS: BP 112/71; PULSE 82; RESP 18; TEMP 96.1; O2SAT 94
[2016-04-14] MEDS: ALLOPURINOL 100 MG TAB PEG SCH (08:09)
[2016-04-14] MEDS: risperiDONE 0.25 MG TAB PO SCH (08:09)
[2016-04-14] MEDS: LANSOPRAZOLE SOLUTAB 30 MG TAB PEG SCH (08:09)
--- NOTE | 2016-04-14 09:45 | HHI.PR ---
Subjective Remarks Patient seen and examined today. Patient denies any new complaints. No change in clinical status. Objective Vitals Vital Signs Date Time Temp Pulse Resp B/P Pulse Ox O2 Delivery O2 Flow Rate FiO2 04/14/16 08:00 96.1 82 18 112/71 94 04/13/16 21:42 98.3 88 16 104/71 95 I/O 04/13/16 04/13/16 04/13/16 04/14/16 04/14/16 04/14/16 07:00 15:00 23:00 07:00 15:00 23:00 Intake Total 543 ml 0 ml 560 ml 460 ml Output Total 600 ml 350 ml 650 ml Balance -57 ml -350 ml 560 ml -190 ml Intake Oral 0 ml Tube Feeding 443 ml 360 ml 360 ml Other 100 ml 200 ml 100 ml Output Urine Total 600 ml 350 ml 650 ml # Bowel Movements 1 2 4 Result Diagram: 04/10/16 0900 04/10/16 0900 Objective Remarks GENERAL: Well-developed, well-nourished, in no acute distress. Patient awake and alert HEENT: Head is normocephalic without any lesions or masses noted. Facial features are symmetric. Eyes: Extraocular muscles are intact. Conjunctivae were clear. Mild edema noted to right upper eyelid NECK: Supple without any masses. Trachea midline no deviation. No JVD, no bruits are appreciated CARDIAC: Regular rhythm, regular rate. S1/S2 are heard. No murmurs gallops or rubs. LUNGS: Clear to auscultation bilaterally. No wheeze, rhonchi or rales. No use of accessory muscles on inspiration or expiration. ABDOMEN: Soft, nontender. Nondistended. Bowel sounds heard in all 4 quadrants. No organomegaly or masses. Negative rebound, negative guarding, suprapubic catheter in place, PEG tube noted EXTREMITIES: No edema, pulses are equal bilaterally. No cyanosis or clubbing NEUROLOGY: Mood and affect appear appropriate. Cranial nerves II through XII grossly intact. Moving all extremities Procedures None Urinary Catheter: Yes Assessment to: Continue Soto insert reason: Prolonged Immobilization Date of Insertion: Mar 24, 2016 Vascular Central Line Catheter: No A/P Assessment and Plan Upper GI bleed: Resolved. Patient had episode of 1 bloody stool on 03/06, Hemoccult-positive Hemoglobin has remained stable during his stay in the hospital GI was reconsulted and following Continue PPI. Protein calorie malnutrition: Improving Consulted dietitian who indicated that patient may be converted to bolus feeding Jevity 1.5, 6 cans per day. 1.5 cans that 0800 and 2000, 1 can at 1100, 1400, 1700 Prealbumin level 24 Dementia with inappropriate behavior, mood disorder improved patient more somnolent today, likely secondary to medication use, patient is afebrile, no tachycardia, no signs of infection. Patient was with inappropriate sexual behavior. Groping the nursing staff, indicating sexual activities, Patient has been hospitalized for similar events in 2015 Consulted psychiatry for further evaluation, who indicated that this is a frontal lobe dementia Risperdal 0.25 mg during the day, Risperdal 0.5 mg at night Continue Remeron Hypotension with episodes of hypertension: Stable Blood pressure labile. Continue monitor blood pressure Continue Midodrine. Elevated BUN, stable Continue fluid flushes via PEG tube to avoid dehydration. Stage I decubitus ulcer, sacral skin tear: Continue wound care. Parkinson's disease: Patient has dementia and resting tremor. Chronic, stable. Weakness: Continue physical therapy Nursing staff to get patient up out of bed at least 3 times daily Palliative care evaluation According to palliative care notes. Family wishes aggressive management, they are expecting him to improve, go to a rehabilitation facility and then improve enough to go home. They are deferring hospice. DVT prophylaxis: SCDs. Avoid chemical prophylaxis secondary to GI bleed. Discharge Planning Discharge planning to halfway facility once arrangements made by case management 04/10/16 1545 RECEIEVD CALL FROM [facility] AND THEY HAVE DECLINED TO ACCEPT. WILL CONT TO SEARCH FOR AN ACCEPTING FACILITY CECILE LONG STAFFING ASSISTANT/CM CECILE 04/10/16 1353 REQUESTED [facility] TO [facility] CECILE LONG STAFFING ASSISTANT/CM CHARGE 04/11/16 [facility] FOR [facility] CECILE LONG STAFFING ASSISTANT/CM CHARGE REQUESTED [facility] FOR [facility]AC[facility] CECILE LONG STAFFING ASSISTANT/CM Jaguar Walker Apr 14, 2016 09:45
[2016-04-14] MEDS: risperiDONE 0.5 MG TAB PO SCH (20:21)
[2016-04-14] MEDS: MIRTAZAPINE 15 MG TAB PEG SCH (20:21)
[2016-04-14] MEDS: LOPERAMIDE HCL 2 MG CAP PO PRN (20:21)
[2016-04-14 21:06] VITALS: BP 106/66; PULSE 86; RESP 20; TEMP 96.7; O2SAT 93
[2016-04-15] MEDS: MIDODRINE 5 MG TAB PO SCH ×4 (06:35→16:50)
[2016-04-15 08:00] VITALS: BP 86/65; PULSE 96; RESP 20; TEMP 98.5; O2SAT 94
[2016-04-15] MEDS: risperiDONE 0.25 MG TAB PO SCH ×2 (08:58→09:00)
[2016-04-15] MEDS: LANSOPRAZOLE SOLUTAB 30 MG TAB PEG SCH ×2 (08:58→09:00)
[2016-04-15] MEDS: ALLOPURINOL 100 MG TAB PEG SCH ×2 (08:58→09:00)
--- NOTE | 2016-04-15 09:42 | HHI.PR ---
Subjective Remarks Patient seen and examined today. Nursing staff indicates patient been noncompliant with therapeutic modalities. Patient is refusing to get out of bed. Objective Vitals Vital Signs Date Time Temp Pulse Resp B/P Pulse Ox O2 Delivery O2 Flow Rate FiO2 04/15/16 08:00 98.5 96 20 86/65 94 04/14/16 21:06 96.7 86 20 106/66 93 I/O 04/14/16 04/14/16 04/14/16 04/15/16 04/15/16 04/15/16 07:00 15:00 23:00 07:00 15:00 23:00 Intake Total 460 ml 940 ml 560 ml 120 ml Output Total 650 ml 450 ml 550 ml 420 ml Balance -190 ml 490 ml 10 ml -300 ml Intake Oral 0 ml Tube Feeding 360 ml 840 ml 360 ml Tube Irrigant 200 ml 120 ml Other 100 ml 100 ml Output Urine Total 650 ml 450 ml 550 ml 420 ml # Bowel Movements 4 0 2 3 Objective Remarks GENERAL: Well-developed, well-nourished, in no acute distress. Patient awake and alert HEENT: Head is normocephalic without any lesions or masses noted. Facial features are symmetric. Eyes: Extraocular muscles are intact. Conjunctivae were clear. Mild edema noted to right upper eyelid NECK: Supple without any masses. Trachea midline no deviation. No JVD, no bruits are appreciated CARDIAC: Regular rhythm, regular rate. S1/S2 are heard. No murmurs gallops or rubs. LUNGS: Clear to auscultation bilaterally. No wheeze, rhonchi or rales. No use of accessory muscles on inspiration or expiration. ABDOMEN: Soft, nontender. Nondistended. Bowel sounds heard in all 4 quadrants. No organomegaly or masses. Negative rebound, negative guarding, suprapubic catheter in place, PEG tube noted EXTREMITIES: No edema, pulses are equal bilaterally. No cyanosis or clubbing NEUROLOGY: Mood and affect appear appropriate. Cranial nerves II through XII grossly intact. Moving all extremities Procedures None Urinary Catheter: Yes Assessment to: Continue Soto insert reason: Measure Accurate Output Date of Insertion: Mar 24, 2016 Vascular Central Line Catheter: No A/P Assessment and Plan Upper GI bleed: Resolved. Patient had episode of 1 bloody stool on 03/06, Hemoccult-positive Hemoglobin has remained stable during his stay in the hospital GI was reconsulted and following Continue PPI. Protein calorie malnutrition: Improving Consulted dietitian who indicated that patient may be converted to bolus feeding Jevity 1.5, 6 cans per day. 1.5 cans that 0800 and 2000, 1 can at 1100, 1400, 1700 Prealbumin level 24 Dementia with inappropriate behavior, mood disorder improved patient more somnolent today, likely secondary to medication use, patient is afebrile, no tachycardia, no signs of infection. Patient was with inappropriate sexual behavior. Groping the nursing staff, indicating sexual activities, Patient has been hospitalized for similar events in 2015 Consulted psychiatry for further evaluation, who indicated that this is a frontal lobe dementia Risperdal 0.25 mg during the day, Risperdal 0.5 mg at night Continue Remeron Hypotension with episodes of hypertension: Stable Blood pressure labile. Continue monitor blood pressure Continue Midodrine. Elevated BUN, stable Continue fluid flushes via PEG tube to avoid dehydration. Stage I decubitus ulcer, sacral skin tear: Continue wound care. Parkinson's disease: Patient has dementia and resting tremor. Chronic, stable. Weakness: Continue physical therapy Nursing staff to get patient up out of bed at least 3 times daily Palliative care evaluation According to palliative care notes. Family wishes aggressive management, they are expecting him to improve, go to a rehabilitation facility and then improve enough to go home. They are deferring hospice. DVT prophylaxis: SCDs. Avoid chemical prophylaxis secondary to GI bleed. Discharge Planning Discharge planning to halfway facility once arrangements made by case management 04/12/16 1894 I HAVE RECEIVED DENIALS TO ACCEPT FROM [facility], [facility], AND [facility]. WAITING FOR DECISION FROM [facility], [facility] TO [facility] LPN/[facility]OR[facility] CHARGE Jaguar Walker Apr 15, 2016 09:42
[2016-04-15 20:00] VITALS: BP 101/78; PULSE 89; RESP 18; TEMP 98.9; O2SAT 94
[2016-04-15] MEDS: MIRTAZAPINE 15 MG TAB PEG SCH (20:27)
[2016-04-15] MEDS: LOPERAMIDE HCL 2 MG CAP PO PRN (20:28)
[2016-04-15] MEDS: risperiDONE 0.5 MG TAB PO SCH (20:28)
[2016-04-16] MEDS: MIDODRINE 5 MG TAB PO SCH ×3 (06:28→17:00)
[2016-04-16 08:00] VITALS: BP 117/76; PULSE 91; RESP 18; TEMP 97.4; O2SAT 95
[2016-04-16] MEDS: risperiDONE 0.25 MG TAB PO SCH (08:22)
[2016-04-16] MEDS: ALLOPURINOL 100 MG TAB PEG SCH (08:22)
[2016-04-16] MEDS: LANSOPRAZOLE SOLUTAB 30 MG TAB PEG SCH (08:22)
--- NOTE | 2016-04-16 15:19 | HHI.PR ---
Subjective Remarks Follow-up for dementia, malnutrition. RN informed me patient is hungry and wants to eat. Patient confirms this. No other acute complaints. Objective Vitals Vital Signs Date Time Temp Pulse Resp B/P Pulse Ox O2 Delivery O2 Flow Rate FiO2 04/16/16 08:00 97.4 91 18 117/76 95 04/15/16 20:00 98.9 89 18 101/78 94 I/O 04/15/16 04/15/16 04/15/16 04/16/16 04/16/16 04/16/16 06:59 14:59 22:59 06:59 14:59 22:59 Intake Total 120 ml 0 ml 590 ml 240 ml Output Total 420 ml 375 ml 350 ml 450 ml 500 ml Balance -300 ml -375 ml 240 ml -210 ml -500 ml Intake Oral 0 ml 0 ml 0 ml Tube Feeding 350 ml Tube Irrigant 120 ml 240 ml 240 ml Output Urine Total 420 ml 375 ml 350 ml 450 ml 500 ml # Bowel Movements 3 1 2 1 1 Objective Remarks GENERAL: Well developed male in no apparent distress sitting in recliner. EYES: Lid margin of right upper eyelid is erythematous. No drainage. No preseptal erythema or edema. No conjunctival injection right eye. CARDIOVASCULAR: Regular rate and rhythm. RESPIRATORY: Limited anterior exam. No accessory muscle use. Clear to auscultation bilaterally. GASTROINTESTINAL: Abdomen soft, non-tender, non-distended. NEUROLOGICAL: Awake and alert. PSYCHIATRIC: Does not speak. Calm affect. Procedures None Urinary Catheter: Yes Assessment to: Continue Soto insert reason: Prolonged Immobilization Date of Insertion: Mar 24, 2016 Vascular Central Line Catheter: No A/P Problem List: (1) GI bleed ICD Code: K92.2 Status: Resolved (2) Essential tremor ICD Code: G25.0 Status: Chronic (3) Dementia ICD Code: F03.90 Status: Chronic (4) Parkinson disease ICD Code: G20 Status: Chronic (5) Hypotension ICD Code: I95.9 Status: Chronic (6) Loose stools ICD Code: R19.5 Status: Resolved (7) Chalazion of right upper eyelid ICD Code: H00.11 Status: Acute Assessment and Plan Upper GI bleed: Resolved. Patient had episode of 1 bloody stool on 03/06, Hemoccult-positive Hemoglobin has remained stable during his stay in the hospital GI was reconsulted and following Continue PPI. Protein calorie malnutrition: Improving Consulted dietitian who indicated that patient may be converted to bolus feeding Jevity 1.5 bolus 1.5 cans @ 0800 and 2000 and 1-can @ 1100, 1400, and 1700. Free Water Flush 100ml before and after each bolus feeding Prealbumin level 23 Patient desires to eat and has not undergone ST evaluation during hospitalization. Will order ST swallow evaluation. Dementia with inappropriate behavior, mood disorder improved Patient was with inappropriate sexual behavior. Groping the nursing staff, indicating sexual activities, Patient has been hospitalized for similar events in 2015 Consulted psychiatry for further evaluation, who indicated that this is a frontal lobe dementia Risperdal 0.25 mg during the day, Risperdal 0.5 mg at night Continue Remeron Hypotension with episodes of hypertension: Stable Blood pressure labile. Continue monitor blood pressure Continue Midodrine. Elevated BUN, stable Continue fluid flushes via PEG tube to avoid dehydration. Stage I decubitus ulcer, sacral skin tear: Continue wound care. Parkinson's disease: Patient has dementia and resting tremor. Chronic, stable. Weakness: Continue physical therapy Nursing staff to get patient up out of bed at least 3 times daily Palliative care evaluation According to palliative care notes. Family wishes aggressive management, they are expecting him to improve, go to a rehabilitation facility and then improve enough to go home. They are deferring hospice. DVT prophylaxis: SCDs. Avoid chemical prophylaxis secondary to GI bleed. Discharge Planning shop manager working on long-term care placement. Madeline Ortez Apr 16, 2016 15:19 Ramiro Verduczo DO Apr 17, 2016 01:45 Patient has completed course of antibiotics. Abdominal pelvis CT 03/06 shows decompressed bladder with circumferential bladder wall thickening and intraluminal air possibly indicating cystitis, but the patient has been afebrile with normal WBC count. No treatment indicated. Weakness: Continue physical therapy Nursing staff to get patient up out of bed at least 3 times daily DVT prophylaxis: SCDs. Avoid chemical prophylaxis secondary to GI bleed. Discharge Planning shop manager working on long-term care placement. Awaiting SSI/Medicaid to review documentation. PT recommends rehabilitation. Madeline Ortez Apr 16, 2016 15:19
[2016-04-16 20:00] VITALS: BP 110/66; PULSE 80; RESP 18; TEMP 96.7; O2SAT 96
[2016-04-16] MEDS: risperiDONE 0.5 MG TAB PO SCH (20:29)
[2016-04-16] MEDS: LOPERAMIDE HCL 2 MG CAP PO PRN (20:29)
[2016-04-16] MEDS: MIRTAZAPINE 15 MG TAB PEG SCH (20:29)
[2016-04-17] MEDS: MIDODRINE 5 MG TAB PO SCH ×3 (06:49→16:56)
[2016-04-17 08:00] VITALS: BP 128/87; PULSE 93; RESP 21; TEMP 96.3; O2SAT 96
[2016-04-17] MEDS: ALLOPURINOL 100 MG TAB PEG SCH (08:35)
[2016-04-17] MEDS: risperiDONE 0.25 MG TAB PO SCH (08:35)
[2016-04-17] MEDS: LANSOPRAZOLE SOLUTAB 30 MG TAB PEG SCH (08:35)
--- NOTE | 2016-04-17 14:44 | HHI.PR ---
Subjective Remarks No acute complaints. No change in clinical status. Objective Vitals Vital Signs Date Time Temp Pulse Resp B/P Pulse Ox O2 Delivery O2 Flow Rate FiO2 04/17/16 08:00 96.3 93 21 128/87 96 04/16/16 20:00 96.7 80 18 110/66 96 I/O 04/16/16 04/16/16 04/16/16 04/17/16 04/17/16 04/17/16 06:59 14:59 22:59 06:59 14:59 22:59 Intake Total 240 ml 960 ml Output Total 450 ml 500 ml 450 ml 250 ml Balance -210 ml -500 ml 510 ml -250 ml Intake Oral 0 ml Tube Feeding 960 ml Tube Irrigant 240 ml Output Urine Total 450 ml 500 ml 450 ml 250 ml # Bowel Movements 1 1 2 Objective Remarks GENERAL: Well developed male in no apparent distress. SKIN: Facial dermatitis. EYES: Lid margin of right upper eyelid is erythematous with nodule visible. No drainage. No preseptal erythema or edema. R pupil normal. No conjunctival injection right eye. CARDIOVASCULAR: Regular rate and rhythm. RESPIRATORY: Limited anterior exam. No accessory muscle use. Clear to auscultation bilaterally. GASTROINTESTINAL: Normoactive bowel sounds. Abdomen soft, non-tender, non- distended. NEUROLOGICAL: Sleeping but arouses to voice. Does not speak. PSYCHIATRIC: Calm affect. Procedures None Urinary Catheter: Yes Assessment to: Continue Soto insert reason: Prolonged Immobilization Date of Insertion: Mar 24, 2016 Vascular Central Line Catheter: No A/P Problem List: (1) GI bleed ICD Code: K92.2 Status: Resolved (2) Essential tremor ICD Code: G25.0 Status: Chronic (3) Dementia ICD Code: F03.90 Status: Chronic (4) Parkinson disease ICD Code: G20 Status: Chronic (5) Hypotension ICD Code: I95.9 Status: Chronic (6) Loose stools ICD Code: R19.5 Status: Resolved (7) Chalazion of right upper eyelid ICD Code: H00.11 Status: Acute Assessment and Plan Upper GI bleed: Resolved. Patient had episode of 1 bloody stool on 03/06, Hemoccult-positive Hemoglobin has remained stable during his stay in the hospital GI was reconsulted and following Continue PPI. Protein calorie malnutrition: Improving Consulted dietitian who indicated that patient may be converted to bolus feeding Jevity 1.5 bolus 1.5 cans @ 0800 and 2000 and 1-can @ 1100, 1400, and 1700. Free Water Flush 100ml before and after each bolus feeding Prealbumin level 23 Patient desires to eat. Speech therapy advises puree diet with honey thickened liquids. Dementia with inappropriate behavior, mood disorder improved Patient was with inappropriate sexual behavior. Groping the nursing staff, indicating sexual activities, although no recent reports of this. Patient has been hospitalized for similar events in 2015 Consulted psychiatry for further evaluation, who indicated that this is a frontal lobe dementia Risperdal 0.25 mg during the day, Risperdal 0.5 mg at night. Will put on hold per POA request. Continue Remeron I spoke with power of family law attorney, patient's son Orlando Edmond in person who asked why patient was on Risperdal. I explained to the patient's son that the patient was evaluated by psychiatry and deemed to have frontal lobe dementia and was on Risperdal for behavioral disturbances. Son believes his father does not have dementia. He states patient has had tremor since he was young. He states he lives on the same property as his father and would see him 5 times a week. He states patient is sensitive to medication and has had adverse effects from medications including antibiotics and antipsychotics which may have caused lasting effects. He states he was on a medication vacation last April; medications having been discontinued by a neurologist. Although he indicates the patient still had symptoms during that time without medications. He is upset as he was not consulted regarding starting this medication as he is the POA and patient is unable to make his own medical decisions at this time. I informed the patient that I will reconsult psychiatry and have them speak with him regarding any further psychiatric management. POA phone number: . He can also be reached at [facility]'s ([place]) number [phone]. Chalazion: Persistent nodule R upper eyelid. There is no evidence of preseptal cellulitis. -Warm compresses were applied but it was greater than 2 weeks without significant improvement. -Ophthalmology was consulted and evaluated patient on 03/26. Advises to continue warm compresses qid and started Tobradex 4 times a day OD x 2 weeks. Patient was intermittently compliant with eyedrops. Follow-up outpatient. Hypotension with episodes of hypertension: Stable Blood pressure labile. Continue monitor blood pressure Continue Midodrine. Elevated BUN, stable Continue fluid flushes via PEG tube to avoid dehydration. Stage I decubitus ulcer, sacral skin tear: Continue wound care. Mild obstructive uropathy: Resolved Appreciate urology recommendations. Suprapubic catheter in place, last changed 03/24/16. To be changed monthly next time on 04/21. Abdominal pelvis CT 03/06/16 shows resolution of right sided hydronephrosis. Urinary tract infection, resolved Urine culture positive for Proteus mirabilis and GBS. Patient has completed course of antibiotics. Abdominal pelvis CT 03/06 shows decompressed bladder with circumferential bladder wall thickening and intraluminal air possibly indicating cystitis, but the patient has been afebrile with normal WBC count. No treatment indicated. Weakness: Continue physical therapy Nursing staff to get patient up out of bed at least 3 times daily Palliative care evaluation According to palliative care notes. Family wishes aggressive management, they are expecting him to improve, go to a rehabilitation facility and then improve enough to go home. They are deferring hospice. DVT prophylaxis: SCDs. Avoid chemical prophylaxis secondary to GI bleed. Discharge Planning Per [facility] in [place] was here to see patient and will notify facility that she can accept patient. Awaiting confirmation of this. Madeline Ortez Apr 17, 2016 14:44 Ramiro Verduzco DO Apr 18, 2016 00:56
[2016-04-17 20:00] VITALS: BP 92/58; PULSE 72; RESP 18; TEMP 97.1; O2SAT 93
[2016-04-17] MEDS: MIRTAZAPINE 15 MG TAB PEG SCH (21:50)
[2016-04-17 22:00] VITALS: BP 111/67; RESP 18; O2SAT 76
[2016-04-18] MEDS: MIDODRINE 5 MG TAB PO SCH ×3 (05:13→18:18)
[2016-04-18 08:00] VITALS: BP 118/80; PULSE 88; RESP 20; TEMP 98.3; O2SAT 98
[2016-04-18] MEDS: LANSOPRAZOLE SOLUTAB 30 MG TAB PEG SCH (08:37)
[2016-04-18] MEDS: ALLOPURINOL 100 MG TAB PEG SCH (08:37)
--- NOTE | 2016-04-18 10:55 | HHI.PR ---
Subjective Remarks F/u for malnutrition, dementia/behavioral disturbance. No acute complaints. Objective Vitals Vital Signs Date Time Temp Pulse Resp B/P Pulse Ox O2 Delivery O2 Flow Rate FiO2 04/18/16 08:00 98.3 88 20 118/80 98 04/17/16 22:00 18 111/67 76 04/17/16 20:00 97.1 72 18 92/58 93 I/O 04/17/16 04/17/16 04/17/16 04/18/16 04/18/16 04/18/16 06:59 14:59 22:59 06:59 14:59 22:59 Intake Total 0 ml 560 ml 560 ml Output Total 250 ml 350 ml 800 ml Balance -250 ml -350 ml 560 ml -240 ml Intake Oral 0 ml Tube Feeding 360 ml 360 ml Other 200 ml 200 ml Output Urine Total 250 ml 350 ml 800 ml # Bowel Movements 2 1 Objective Remarks Vitals good. GENERAL: Well developed male in no apparent distress sleeping when I enter the room. CARDIOVASCULAR: Regular rate and rhythm. RESPIRATORY: Limited anterior exam. No accessory muscle use. Clear to auscultation bilaterally. GASTROINTESTINAL: Normoactive bowel sounds. Abdomen soft, non-tender, non- distended. NEUROLOGICAL: Sleeping but arouses to voice and nods head to questions. Resting tremor L hand. PSYCHIATRIC: Calm affect. Procedures None Urinary Catheter: Yes Assessment to: Continue Soto insert reason: Prolonged Immobilization Date of Insertion: Mar 24, 2016 Vascular Central Line Catheter: No A/P Problem List: (1) GI bleed ICD Code: K92.2 Status: Resolved (2) Essential tremor ICD Code: G25.0 Status: Chronic (3) Dementia ICD Code: F03.90 Status: Chronic (4) Parkinson disease ICD Code: G20 Status: Chronic (5) Hypotension ICD Code: I95.9 Status: Chronic (6) Loose stools ICD Code: R19.5 Status: Resolved (7) Chalazion of right upper eyelid ICD Code: H00.11 Status: Acute Assessment and Plan Upper GI bleed: Resolved. Patient had episode of 1 bloody stool on 03/06, Hemoccult-positive Hemoglobin has remained stable during his stay in the hospital GI was reconsulted and following Continue PPI. Protein calorie malnutrition: Improving Consulted dietitian who indicated that patient may be converted to bolus feeding Jevity 1.5 bolus 1.5 cans @ 0800 and 2000 and 1-can @ 1100, 1400, and 1700. Free Water Flush 100ml before and after each bolus feeding Prealbumin level 23 Patient desires to eat. Speech therapy advises puree diet with honey thickened liquids. Dementia with inappropriate behavior, mood disorder improved Patient was with inappropriate sexual behavior. Groping the nursing staff, indicating sexual activities, although no recent reports of this. Patient has been hospitalized for similar events in 2014 Consulted psychiatry for further evaluation, who indicated that this is a frontal lobe dementia Risperdal 0.25 mg during the day, Risperdal 0.5 mg at night. Was put on hold per POA request. Ines Buck I spoke with power of admitted attorneys, patient's son Orlando Edmond on 04/17 in person who asked why patient was on Risperdal. I explained to the patient's son that the patient was evaluated by psychiatry and deemed to have frontal lobe dementia and was on Risperdal for behavioral disturbances. Son believes his father does not have dementia. He states patient has had tremor since he was young. He states he lives on the same property as his father and would see him 5 times a week. He states patient is sensitive to medication and has had adverse effects from medications including antibiotics and antipsychotics which may have caused lasting effects. He states he was on a medication vacation last April; medications having been discontinued by a neurologist. Although he indicates the patient still had symptoms during that time without medications. He is upset as he was not consulted regarding starting this medication as he is the POA and patient is unable to make his own medical decisions at this time. I informed the patient that I would reconsult psychiatry and have them speak with him regarding any further psychiatric management. POA phone number: . He can also be reached at [facility] ([place]) number [phone]. -Psych consult pending Chalazion: Persistent nodule R upper eyelid. There is no evidence of preseptal cellulitis. -Warm compresses were applied but it was greater than 2 weeks without significant improvement. -Ophthalmology was consulted and evaluated patient on 03/26. S/p warm compresses and Tobradex 4 times a day OD x 2 weeks. Patient was intermittently compliant with eyedrops. -Follow-up outpatient. Hypotension with episodes of hypertension: Stable Blood pressure labile. Continue monitor blood pressure Continue Midodrine. Elevated BUN, stable Continue fluid flushes via PEG tube to avoid dehydration. Stage I decubitus ulcer, sacral skin tear: Continue wound care. Mild obstructive uropathy: Resolved Appreciate urology recommendations. Suprapubic catheter in place, last changed 03/24/16. To be changed monthly next time on 04/21. Abdominal pelvis CT 03/06/16 shows resolution of right sided hydronephrosis. Urinary tract infection, resolved Urine culture positive for Proteus mirabilis and GBS. Patient has completed course of antibiotics. Abdominal pelvis CT 03/06 shows decompressed bladder with circumferential bladder wall thickening and intraluminal air possibly indicating cystitis, but the patient has been afebrile with normal WBC count. No treatment indicated. Weakness: Continue physical therapy Nursing staff to get patient up out of bed at least 3 times daily Palliative care evaluation According to palliative care notes. Family wishes aggressive management, they are expecting him to improve, go to a rehabilitation facility and then improve enough to go home. They are deferring hospice. DVT prophylaxis: SCDs. Avoid chemical prophylaxis secondary to GI bleed. Discharge Planning [facility] has declined patient. CM working on placement. Madeline Ortez Apr 18, 2016 10:55 am Ramiro Verduzco DO Apr 18, 2016 6:43 pm
--- NOTE | 2016-04-18 15:32 | HHI.PYPN ---
Subjective Remarks Patient was seen for reevaluation today. He was found watching TV in the recreational area. He was calm, kind of distant and lethargic and superficially cooperative. HE says he has been doing good, denies distress or pain. He reports ok mood, denies depression, anxiety and perceptual disturbances. He denies SI and HI. Patient is oriented X3. No paranoia, agitation, aggressive behavior, delusions are reported. He does have some apathy and thought blocking. As per Nurse in charge, no mood or behavior dysregulation have been observed or reported longitudinally in the last 24 hours. Risperdal 0.25 mg am and 0.5 mg was discontinued as per HCP request. I had a conversation by phone with his son Mr. Orlando Edmond, HCP, he expressed his decision of not approving Risperdal due to black box of sudden . He does not think his father is agitated or aggressive and needs this medication. Review of Systems Constitutional: DENIES: Diaphoretic episodes, Fatigue, Fever, Weight gain, Weight loss, Chills, Dizziness, Change in appetite, Night Sweats Eyes: DENIES: Blurred vision, Diplopia, Eye inflammation, Eye pain, Vision loss , Photosensitivity, Double Vision Ears, nose, mouth, throat: DENIES: Tinnitus, Hearing loss, Vertigo, Nasal discharge, Oral lesions, Throat pain, Hoarseness, Ear Pain, Running Nose, Epistaxis, Sinus Pain, Toothache, Odynophagia Respiratory: DENIES: Apneas, Cough, Snoring, Wheezing, Hemoptysis, Sputum production, Shortness of breath Cardiovascular: DENIES: Chest pain, Palpitations, Syncope, Dyspnea on Exertion , PND, Lower Extremity Edema, Orthopnea, Claudication Gastrointestinal: DENIES: Abdominal pain, Black stools, Bloody stools, Constipation, Diarrhea, Nausea, Vomiting, Difficulty Swallowing, Anorexia Musculoskeletal: DENIES: Joint pain, Muscle aches, Stiffness, Joint Swelling, Back pain, Neck pain Neurologic: DENIES: Abnormal gait, Headache, Localized weakness, Paresthesias, Seizures, Speech Problems, Tremor, Poor Balance Objective Alert: Yes [place]: Person, Place, Date, Situation Mood: Calm Affect: Euthymic Memory Intact: Immediate, Recent Hallucinations: Other (none) Delusions: No Delusion Type: Other (none) Suicidal: Ideation (denies) Homicidal: Ideation (denies) Insight/Judgement Fair Vitals/IOs Vital Signs Date Time Temp Pulse Resp B/P Pulse Ox O2 Delivery O2 Flow Rate FiO2 04/18/16 08:00 98.3 88 20 118/80 98 Intake and Output 04/17/16 04/17/16 04/18/16 08:00 16:00 00:00 Intake Total 0 ml 560 ml Output Total 250 ml 350 ml Balance -250 ml -350 ml 560 ml Assessment & Plan Problem List: (1) Frontotemporal dementia with behavioral disturbance Assessment & Plan: No depression, anxiety, talib, agitation, delirium, behavioral dysregulation or perceptual disturbances reported or observed. Ok, with discontinuation of Risperdal as per son requested. Since patient has elevated risk of delirium, would recommend Haldol 1-2 mg Q12 PRN agitation and aggressive behavior. ICD Code: G31.09 Assessment & Plan Estimated LOS: days Justification for Cont. Inpt. No admission indicated. Enrqiue Moody MD Apr 18, 2016 15:32
[2016-04-18 20:00] VITALS: BP 100/59; PULSE 77; RESP 18; TEMP 97.7; O2SAT 93
[2016-04-18] MEDS: MIRTAZAPINE 15 MG TAB PEG SCH (22:10)
[2016-04-19] MEDS: MIDODRINE 5 MG TAB PO SCH ×3 (05:41→17:47)
[2016-04-19 08:00] VITALS: BP 110/80; PULSE 72; RESP 18; TEMP 97.8; O2SAT 94
[2016-04-19] MEDS: ALLOPURINOL 100 MG TAB PEG SCH (08:53)
[2016-04-19] MEDS: LANSOPRAZOLE SOLUTAB 30 MG TAB PEG SCH (08:53)
--- NOTE | 2016-04-19 10:04 | HHI.PR ---
Subjective Remarks No acute complaints. No change in clinical status. Objective Vitals Vital Signs Date Time Temp Pulse Resp B/P Pulse Ox O2 Delivery O2 Flow Rate FiO2 04/19/16 08:00 97.8 72 18 110/80 94 04/18/16 20:00 97.7 77 18 100/59 93 I/O 04/18/16 04/18/16 04/18/16 04/19/16 04/19/16 04/19/16 07:00 15:00 23:00 07:00 15:00 23:00 Intake Total 560 ml 0 ml 0 ml 560 ml Output Total 800 ml 250 ml 300 ml Balance -240 ml -250 ml -300 ml 560 ml Intake Oral 0 ml 0 ml Tube Feeding 360 ml 360 ml Other 200 ml 200 ml Output Urine Total 800 ml 250 ml 300 ml # Bowel Movements 1 2 Objective Remarks GENERAL: Well developed male in no apparent distress. SKIN: Flaky skin of face and neck. CARDIOVASCULAR: Regular rate and rhythm. RESPIRATORY: Limited anterior exam. No accessory muscle use. Clear to auscultation bilaterally. GASTROINTESTINAL: Abdomen soft, non-tender, non-distended. NEUROLOGICAL: Sleeping but arouses to voice and nods head to questions. Tremors of both hands. PSYCHIATRIC: Calm affect. Procedures None Urinary Catheter: Yes Assessment to: Continue Soto insert reason: Prolonged Immobilization Date of Insertion: Mar 24, 2016 Vascular Central Line Catheter: No A/P Problem List: (1) GI bleed ICD Code: K92.2 Status: Resolved (2) Essential tremor ICD Code: G25.0 Status: Chronic (3) Dementia ICD Code: F03.90 Status: Chronic (4) Parkinson disease ICD Code: G20 Status: Chronic (5) Hypotension ICD Code: I95.9 Status: Chronic (6) Loose stools ICD Code: R19.5 Status: Resolved (7) Chalazion of right upper eyelid ICD Code: H00.11 Status: Acute Assessment and Plan Upper GI bleed: Resolved. Patient had episode of 1 bloody stool on 03/06, Hemoccult-positive Hemoglobin has remained stable during his stay in the hospital GI was reconsulted and following Continue PPI. Protein calorie malnutrition: Improving Consulted dietitian who indicated that patient may be converted to bolus feeding Jevity 1.5 bolus 1.5 cans @ 0800 and 2000 and 1-can @ 1100, 1400, and 1700. Free Water Flush 100ml before and after each bolus feeding Prealbumin level 23 Patient desires to eat. Speech therapy advises puree diet with honey thickened liquids. Dementia with inappropriate behavior, mood disorder improved Patient was with inappropriate sexual behavior. Groping the nursing staff, indicating sexual activities, although no recent reports of this. Patient has been hospitalized for similar events in 2015 Consulted psychiatry for further evaluation, who indicated that this is a frontal lobe dementia Risperdal 0.25 mg during the day, Risperdal 0.5 mg at night. Was put on hold per POA request. Continue Remeron I spoke with power of claims attorney, patient's son Orlando Edmond on 04/17 in person regarding Risperdal use of which he does not approve. He believes patient does not have dementia but rather buttermaker helper effects of medications including antibiotics and antipsychotics. -Psychiatry was reconsulted and is ok with discontinuation of Risperdal, but recommends Haldol 1-2 mg q12 prn for aggressive behavior and agitation. Patient has not exhibited this recently. Probable seborrheic dermatitis: Significantly flaky skin to the face and neck. Patient does have a mustache now and unkempt scruff over the face. -Will order one time dose of Ketoconazole 2% shampoo to be applied to area of facial hair/neck. Will reevaluate tomorrow to determine need for continued use or need for short term use of hydrocortisone cream. Chalazion: Persistent nodule R upper eyelid. There is no evidence of preseptal cellulitis. -Warm compresses were applied but it was greater than 2 weeks without significant improvement. -Ophthalmology was consulted and evaluated patient on 03/26. S/p warm compresses and Tobradex 4 times a day OD x 2 weeks. Patient was intermittently compliant with eyedrops. -No worsening. Follow-up outpatient. Hypotension with episodes of hypertension: Stable Blood pressure labile. Continue monitor blood pressure Continue Midodrine. Elevated BUN, stable Continue fluid flushes via PEG tube to avoid dehydration. Stage I decubitus ulcer, sacral skin tear: Continue wound care. Mild obstructive uropathy: Resolved Appreciate urology recommendations. Suprapubic catheter in place, last changed 03/24/16. To be changed monthly next time on 04/21. Abdominal pelvis CT 03/06/16 shows resolution of right sided hydronephrosis. Urinary tract infection, resolved Urine culture positive for Proteus mirabilis and GBS. Patient has completed course of antibiotics. Abdominal pelvis CT 03/06 shows decompressed bladder with circumferential bladder wall thickening and intraluminal air possibly indicating cystitis, but the patient has been afebrile with normal WBC count. No treatment indicated. Weakness: Continue physical therapy Nursing staff to get patient up out of bed at least 3 times daily Palliative care evaluation According to palliative care notes. Family wishes aggressive management, they are expecting him to improve, go to a rehabilitation facility and then improve enough to go home. They are deferring hospice. DVT prophylaxis: SCDs. Avoid chemical prophylaxis secondary to GI bleed. Discharge Planning [facility] has declined patient. DORIS working on placement. Madeline Ortez Apr 19, 2016 10:04
[2016-04-19 12:30] VITALS: BP 110/62
[2016-04-19 20:00] VITALS: BP 133/90; PULSE 69; RESP 20; TEMP 97.2; O2SAT 97
[2016-04-19] MEDS: MIRTAZAPINE 15 MG TAB PEG SCH (20:59)
[2016-04-20] MEDS: MIDODRINE 5 MG TAB PO SCH ×3 (06:40→16:37)
[2016-04-20 08:00] VITALS: BP 101/63; PULSE 70; RESP 20; TEMP 95.5; O2SAT 96
[2016-04-20] MEDS: LANSOPRAZOLE SOLUTAB 30 MG TAB PEG SCH (08:47)
[2016-04-20] MEDS: ALLOPURINOL 100 MG TAB PEG SCH (08:47)
--- NOTE | 2016-04-20 09:51 | HHI.PR ---
Subjective Remarks No acute complaints. No change in clinical status. Objective Vitals Vital Signs Date Time Temp Pulse Resp B/P Pulse Ox O2 Delivery O2 Flow Rate FiO2 04/20/16 08:00 95.5 70 20 101/63 96 04/19/16 20:00 97.2 69 20 133/90 97 04/19/16 12:30 110/62 I/O 04/19/16 04/19/16 04/19/16 04/20/16 04/20/16 04/20/16 07:00 15:00 23:00 07:00 15:00 23:00 Intake Total 560 ml 1440 ml 0 ml 0 ml Output Total 300 ml 451 ml 350 ml Balance 560 ml 1140 ml -451 ml -350 ml Intake Oral 0 ml 0 ml Tube Feeding 360 ml 840 ml Other 200 ml 600 ml Output Urine Total 300 ml 450 ml 350 ml Stool Total 1 ml # Bowel Movements 1 0 Objective Remarks GENERAL: Well developed disheveled male in no apparent distress. SKIN: Mild flaky skin of neck but face is much improved. No erythematous patches. CARDIOVASCULAR: Regular rate and rhythm. RESPIRATORY: Limited anterior exam. No accessory muscle use. Clear to auscultation bilaterally. GASTROINTESTINAL: Normoactive bowel sounds. Abdomen soft, non-tender, non- distended. NEUROLOGICAL: Sleeping but arouses to voice and nods head to questions. Tremors of left hand. PSYCHIATRIC: Calm affect. Procedures None Urinary Catheter: Yes Assessment to: Continue Soto insert reason: Prolonged Immobilization Date of Insertion: Mar 24, 2016 Vascular Central Line Catheter: No A/P Problem List: (1) GI bleed ICD Code: K92.2 Status: Resolved (2) Essential tremor ICD Code: G25.0 Status: Chronic (3) Dementia ICD Code: F03.90 Status: Chronic (4) Parkinson disease ICD Code: G20 Status: Chronic (5) Hypotension ICD Code: I95.9 Status: Chronic (6) Loose stools ICD Code: R19.5 Status: Resolved (7) Chalazion of right upper eyelid ICD Code: H00.11 Status: Acute Assessment and Plan Upper GI bleed: Resolved. Patient had episode of 1 bloody stool on 03/06, Hemoccult-positive Hemoglobin has remained stable during his stay in the hospital GI was reconsulted and following Continue PPI. Protein calorie malnutrition: Improving Consulted dietitian who indicated that patient may be converted to bolus feeding Jevity 1.5 bolus 1.5 cans @ 0800 and 2000 and 1-can @ 1100, 1400, and 1700. Free Water Flush 100ml before and after each bolus feeding Prealbumin level 23 Patient desires to eat. Speech therapy advises puree diet, thin liquids as of 04/19. Dementia with inappropriate behavior, mood disorder improved Patient was with inappropriate sexual behavior. Groping the nursing staff, indicating sexual activities, although no recent reports of this. Patient has been hospitalized for similar events in 2015 Consulted psychiatry for further evaluation, who indicated that this is a frontal lobe dementia Risperdal 0.25 mg during the day, Risperdal 0.5 mg at night. Was put on hold per POA request. Continue Remeron I spoke with power of employment attorney, patient's son Orlando Edmond on 04/17 in person regarding Risperdal use of which he does not approve. He believes patient does not have dementia but rather fpc effects of medications including antibiotics and antipsychotics. -Psychiatry was reconsulted and is ok with discontinuation of Risperdal, but recommends Haldol 1-2 mg q12 prn for aggressive behavior and agitation. Patient has not exhibited this behavior recently. Probable seborrheic dermatitis: Significantly flaky skin to the face and neck. Patient has facial hair. -Much improved s/p one time dose of Ketoconazole 2% shampoo. -Monitor need for further treatments. Chalazion: Persistent nodule R upper eyelid. There is no evidence of preseptal cellulitis. -Warm compresses were applied but it was greater than 2 weeks without significant improvement. -Ophthalmology was consulted and evaluated patient on 03/26. S/p warm compresses and Tobradex 4 times a day OD x 2 weeks. Patient was intermittently compliant with eyedrops. -No worsening. Follow-up outpatient. Hypotension with episodes of hypertension: Stable Blood pressure labile. Continue monitor blood pressure Continue Midodrine. Elevated BUN, stable Continue fluid flushes via PEG tube to avoid dehydration. Stage I decubitus ulcer, sacral skin tear: Continue wound care. Mild obstructive uropathy: Resolved Appreciate urology recommendations. Suprapubic catheter in place, last changed 03/24/16. To be changed monthly next time on 04/21. Abdominal pelvis CT 03/06/16 shows resolution of right sided hydronephrosis. Urinary tract infection, resolved Urine culture positive for Proteus mirabilis and GBS. Patient has completed course of antibiotics. Abdominal pelvis CT 03/06 shows decompressed bladder with circumferential bladder wall thickening and intraluminal air possibly indicating cystitis, but the patient has been afebrile with normal WBC count. No treatment indicated. Weakness: Continue physical therapy Nursing staff to get patient up out of bed at least 3 times daily Palliative care evaluation According to palliative care notes. Family wishes aggressive management, they are expecting him to improve, go to a rehabilitation facility and then improve enough to go home. They are deferring hospice. DVT prophylaxis: SCDs. Avoid chemical prophylaxis secondary to GI bleed. Discharge Planning [facility] has declined patient. DORIS working on placement. Madeline Ortez Apr 20, 2016 09:51
[2016-04-20 12:35] VITALS: BP 89/56
[2016-04-20 20:00] VITALS: BP 92/55; PULSE 77; RESP 16; TEMP 98.9; O2SAT 93
[2016-04-20] MEDS: MIRTAZAPINE 15 MG TAB PEG SCH (20:43)
[2016-04-21 00:35] VITALS: BP 89/56
[2016-04-21] MEDS: MIDODRINE 5 MG TAB PO SCH ×3 (07:05→17:00)
[2016-04-21 08:00] VITALS: BP 96/62; PULSE 68; RESP 24; TEMP 96.2; O2SAT 92
[2016-04-21] MEDS: LANSOPRAZOLE SOLUTAB 30 MG TAB PEG SCH (08:26)
[2016-04-21] MEDS: ALLOPURINOL 100 MG TAB PEG SCH (08:26)
--- NOTE | 2016-04-21 09:48 | HHI.PR ---
Subjective Remarks No acute complaints. No change in clinical status. Objective Vitals Vital Signs Date Time Temp Pulse Resp B/P Pulse Ox O2 Delivery O2 Flow Rate FiO2 04/21/16 08:00 96.2 68 24 96/62 92 04/21/16 00:35 89/56 04/20/16 20:00 98.9 77 16 92/55 93 I/O 04/20/16 04/20/16 04/20/16 04/21/16 04/21/16 04/21/16 07:00 15:00 23:00 07:00 15:00 23:00 Intake Total 0 ml 0 ml Output Total 350 ml 500 ml 450 ml Balance -350 ml -500 ml -450 ml Intake Oral 0 ml 0 ml Output Urine Total 350 ml 500 ml 450 ml # Bowel Movements 0 1 0 Objective Remarks GENERAL: Well developed male in no apparent distress. CARDIOVASCULAR: Regular rate and rhythm. RESPIRATORY: Limited anterior exam. No accessory muscle use. Clear to auscultation bilaterally. GASTROINTESTINAL: Abdomen soft, non-tender, non-distended. NEUROLOGICAL: Nods head to questions. Follows commands. Hand tremors noted. PSYCHIATRIC: Calm affect. Procedures None Urinary Catheter: Yes Assessment to: Continue Soto insert reason: Prolonged Immobilization Date of Insertion: Mar 24, 2016 Vascular Central Line Catheter: No A/P Problem List: (1) GI bleed ICD Code: K92.2 Status: Resolved (2) Essential tremor ICD Code: G25.0 Status: Chronic (3) Dementia ICD Code: F03.90 Status: Chronic (4) Parkinson disease ICD Code: G20 Status: Chronic (5) Hypotension ICD Code: I95.9 Status: Chronic (6) Loose stools ICD Code: R19.5 Status: Resolved (7) Chalazion of right upper eyelid ICD Code: H00.11 Status: Acute Assessment and Plan Upper GI bleed: Resolved. Patient had episode of 1 bloody stool on 03/06, Hemoccult-positive Hemoglobin has remained stable during his stay in the hospital GI was reconsulted and following Continue PPI. Protein calorie malnutrition: Improving Consulted dietitian who indicated that patient may be converted to bolus feeding Jevity 1.5 bolus 1.5 cans @ 0800 and 2000 and 1-can @ 1100, 1400, and 1700. Free Water Flush 100ml before and after each bolus feeding Prealbumin level 23 Patient desired to eat and speech therapy advised puree diet, thin liquids, but patient has not been eating anything. Dementia with inappropriate behavior, mood disorder improved Patient was with inappropriate sexual behavior. Groping the nursing staff, indicating sexual activities, although no recent reports of this. Patient has been hospitalized for similar events in 2015 Consulted psychiatry for further evaluation, who indicated that this is a frontal lobe dementia Risperdal 0.25 mg during the day, Risperdal 0.5 mg at night. Was put on hold per POA request. Continue Remeron I spoke with power of attorney at law, patient's son Orlando Edmond on 04/17 in person regarding Risperdal use of which he does not approve. He believes patient does not have dementia but rather shelter effects of medications including antibiotics and antipsychotics. -Psychiatry was reconsulted and is ok with discontinuation of Risperdal, but recommends Haldol 1-2 mg q12 prn for aggressive behavior and agitation. Patient has not exhibited this behavior recently. Probable seborrheic dermatitis: Improved. Flaky skin to the face and neck although no clearly demarcated red patches noted. -Much improved s/p one time dose of Ketoconazole 2% shampoo. -Monitor need for further treatments. Chalazion: Persistent nodule R upper eyelid. There is no evidence of preseptal cellulitis. -Warm compresses were applied but it was greater than 2 weeks without significant improvement. -Ophthalmology was consulted and evaluated patient on 03/26. S/p warm compresses and Tobradex 4 times a day OD x 2 weeks. Patient was intermittently compliant with eyedrops. -No worsening. Follow-up outpatient. Hypotension with episodes of hypertension: Hypotensive last night and this morning but MAP is stable. Blood pressure labile. Recheck vitals. Continue Midodrine. Patient on max dose. Increase free water flushes as needed. Elevated BUN, stable Continue fluid flushes via PEG tube to avoid dehydration. Stage I decubitus ulcer, sacral skin tear: Continue wound care. Mild obstructive uropathy: Resolved. Patient with good urine output. Appreciate urology recommendations. Suprapubic catheter in place; to be changed monthly. Change catheter today . Abdominal pelvis CT 03/06/16 shows resolution of right sided hydronephrosis. Urinary tract infection: Resolved Urine culture positive for Proteus mirabilis and GBS. Patient has completed course of antibiotics. Abdominal pelvis CT 03/06 shows decompressed bladder with circumferential bladder wall thickening and intraluminal air possibly indicating cystitis, but the patient has been afebrile with normal WBC count. No treatment indicated. Weakness: Continue physical therapy Nursing staff to get patient up out of bed at least 3 times daily Palliative care evaluation According to palliative care notes. Family wishes aggressive management, they are expecting him to improve, go to a rehabilitation facility and then improve enough to go home. They are deferring hospice. DVT prophylaxis: SCDs. Avoid chemical prophylaxis secondary to GI bleed. Discharge Planning [facility] has declined patient. CM working on placement. Madeline Ortez Apr 21, 2016 09:47
[2016-04-21 18:14] VITALS: BP 105/74; PULSE 88; RESP 18; TEMP 97.3; O2SAT 93
[2016-04-21 20:00] VITALS: BP 110/71; PULSE 89; RESP 18; TEMP 97.8; O2SAT 94
[2016-04-21] MEDS: MIRTAZAPINE 15 MG TAB PEG SCH (21:06)
[2016-04-22] MEDS: MIDODRINE 5 MG TAB PO SCH ×3 (07:09→17:34)
[2016-04-22 08:00] VITALS: BP 107/70; PULSE 82; RESP 18; TEMP 98; O2SAT 92
[2016-04-22] MEDS: ALLOPURINOL 100 MG TAB PEG SCH (09:04)
[2016-04-22] MEDS: LANSOPRAZOLE SOLUTAB 30 MG TAB PEG SCH (09:04)
[2016-04-22 10:24] LABS: AUTOMATED NEUTROPHIL # 5.6 TH/MM3 (1.8-7.7); BASOPHIL # 0.1 TH/MM3 (0-0.2); BASOPHIL % 0.6 % (0.0-2.0); EOSINOPHIL # 0.3 TH/MM3 (0-0.4); EOSINOPHIL % 3.1 % (0.0-4.0); LYMPHOCYTE # 2.9 TH/MM3 (1.0-4.8); MEAN CELL VOLUME 87.7 FL (80.0-100.0); MEAN CORPUSCULAR HEMOGLOBIN 28.3 PG (27.0-34.0); MEAN CORPUSCULAR HGB CONC 32.3 % (32.0-36.0); MONO % 5.7 % (0.0-8.0); NEUT % 59.6 % (16.0-70.0); PLATELET COUNT 225 TH/MM3 (150-450); RED CELL DISTRIBUTION WIDTH 15.4 % (11.6-17.2); WHITE BLOOD COUNT 9.4 TH/MM3 (4.0-11.0)
[2016-04-22 10:25] LABS: HEMO FLAGS DIFF FINAL
[2016-04-22 10:42] LABS: BICARBONATE 28.6 MEQ/L (21.0-32.0)
--- NOTE | 2016-04-22 10:55 | HHI.PR ---
Subjective Remarks RN informs me the patient had dark red blood mixed with his stool this morning. The patient denies any lightheadedness, dizziness, chest pain or shortness of breath, abdominal pain, nausea, vomiting, or diarrhea. At the end of my evaluation, patient asked "Can you turn the tv up?" which is only the second time he has actually spoken to me. Objective Vitals Vital Signs Date Time Temp Pulse Resp B/P Pulse Ox O2 Delivery O2 Flow Rate FiO2 04/22/16 08:00 98.0 82 18 107/70 92 04/21/16 20:00 97.8 89 18 110/71 94 04/21/16 18:14 97.3 88 18 105/74 93 I/O 04/21/16 04/21/16 04/21/16 04/22/16 04/22/16 04/22/16 07:00 15:00 23:00 07:00 15:00 23:00 Intake Total 25 ml 560 ml Output Total 1500 ml 1050 ml 250 ml Balance -1500 ml -1025 ml -250 ml 560 ml Intake Oral 25 ml Tube Feeding 360 ml Other 200 ml Output Urine Total 1500 ml 1050 ml 250 ml Result Diagram: 04/22/16 1010 04/22/16 1010 Objective Remarks GENERAL: Well developed male in no apparent distress. CARDIOVASCULAR: Regular rate and rhythm. RESPIRATORY: Limited anterior exam. No accessory muscle use. Clear to auscultation bilaterally. GASTROINTESTINAL: Abdomen soft, non-tender, non-distended. NEUROLOGICAL: Nods head to questions. Follows commands. Speech is normal. PSYCHIATRIC: Calm affect. Procedures None Urinary Catheter: Yes Assessment to: Continue Soto insert reason: Prolonged Immobilization Date of Insertion: Apr 21, 2016 Vascular Central Line Catheter: No A/P Problem List: (1) GI bleed ICD Code: K92.2 Status: Acute (2) Essential tremor ICD Code: G25.0 Status: Chronic (3) Dementia ICD Code: F03.90 Status: Chronic (4) Parkinson disease ICD Code: G20 Status: Chronic (5) Hypotension ICD Code: I95.9 Status: Chronic (6) Loose stools ICD Code: R19.5 Status: Resolved (7) Chalazion of right upper eyelid ICD Code: H00.11 Status: Acute Assessment and Plan Upper GI bleed: Resolved. Again has lower GI bleeding. Patient had episode of 1 bloody stool on 03/06, Hemoccult-positive; now again RN reports dark red blood in stool today. Hemoglobin is normal this morning. BMP unremarkable. Will repeat H&H q 6 hours to assess for anemia. GI was reconsulted after last episode of bloody stool and attributed it to constipation as was evident on abdominal CT on 03/06. Continue PPI. Protein calorie malnutrition: Improving Consulted dietitian who indicated that patient may be converted to bolus feeding Jevity 1.5 bolus 1.5 cans @ 0800 and 2000 and 1-can @ 1100, 1400, and 1700. Free Water Flush 100ml before and after each bolus feeding Prealbumin level 23 Patient desired to eat and speech therapy advised puree diet, thin liquids, but patient has not been eating anything. Dementia with inappropriate behavior, mood disorder improved Patient was with inappropriate sexual behavior. Groping the nursing staff, indicating sexual activities, although no recent reports of this. Patient has been hospitalized for similar events in 2015 Consulted psychiatry for further evaluation, who indicated that this is a frontal lobe dementia Risperdal 0.25 mg during the day, Risperdal 0.5 mg at night. Was put on hold per POA request. Continue Remeron I spoke with power of prosecuting attorney, patient's son Orlando Edmond on 04/17 in person regarding Risperdal use of which he does not approve. 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 -Psychiatry was reconsulted and is ok with discontinuation of Risperdal, but recommends Haldol 1-2 mg q12 prn for aggressive behavior and agitation. Patient has not exhibited this behavior recently. Probable seborrheic dermatitis: Improved. Flaky skin to the face and neck although no clearly demarcated red patches noted. -Much improved s/p one time dose of Ketoconazole 2% shampoo. -Monitor need for further treatments. Chalazion: Persistent nodule R upper eyelid. There is no evidence of preseptal cellulitis. -Warm compresses were applied but it was greater than 2 weeks without significant improvement. -Ophthalmology was consulted and evaluated patient on 03/26. S/p warm compresses and Tobradex 4 times a day OD x 2 weeks. Patient was intermittently compliant with eyedrops. -No worsening. Follow-up outpatient. Hypotension with episodes of hypertension: Hypotension yesterday, but improved today. Blood pressure labile. Continue Midodrine. Patient on max dose. Increase free water flushes as needed. Elevated BUN, stable Continue fluid flushes via PEG tube to avoid dehydration. Stage I decubitus ulcer, sacral skin tear: Continue wound care. Mild obstructive uropathy: Resolved. Patient with good urine output. Appreciate urology recommendations. Suprapubic catheter in place, last changed 04/21/16. To be changed monthly, Abdominal pelvis CT 03/06/16 shows resolution of right sided hydronephrosis. Urinary tract infection: Resolved Urine culture positive for Proteus mirabilis and GBS. Patient has completed course of antibiotics. Abdominal pelvis CT 03/06 shows decompressed bladder with circumferential bladder wall thickening and intraluminal air possibly indicating cystitis, but the patient has been afebrile with normal WBC count. No treatment indicated. Weakness: Continue physical therapy Nursing staff to get patient up out of bed at least 3 times daily Palliative care evaluation According to palliative care notes. Family wishes aggressive management, they are expecting him to improve, go to a rehabilitation facility and then improve enough to go home. They are deferring hospice. DVT prophylaxis: SCDs. Avoid chemical prophylaxis secondary to GI bleed. Discharge Planning [facility] has declined patient. [facility] working on placement. Madeline Ortez Apr 22, 2016 10:55
[2016-04-22 12:30] VITALS: BP 101/66; PULSE 79
[2016-04-22 16:11] LABS: HEMATOCRIT 38.4 % (39.0-51.0)
[2016-04-22 16:56] LABS: REVIEW FLAG FINAL
[2016-04-22 17:30] VITALS: BP 108/68; PULSE 80
[2016-04-22 20:00] VITALS: BP 110/70; PULSE 80; RESP 16; TEMP 97.1; O2SAT 94
[2016-04-22] MEDS: MIRTAZAPINE 15 MG TAB PEG SCH (20:26)
[2016-04-22 22:09] LABS: HEMATOCRIT 39.3 % (39.0-51.0); REVIEW FLAG FINAL
[2016-04-23] MEDS: MIDODRINE 5 MG TAB PO SCH ×3 (06:19→16:22)
[2016-04-23 07:19] LABS: HEMATOCRIT 41.8 % (39.0-51.0); REVIEW FLAG FINAL
[2016-04-23 08:00] VITALS: BP 109/70; PULSE 76; RESP 20; TEMP 97.5; O2SAT 93
[2016-04-23] MEDS: ALLOPURINOL 100 MG TAB PEG SCH (08:57)
[2016-04-23] MEDS: LANSOPRAZOLE SOLUTAB 30 MG TAB PEG SCH (08:57)
--- NOTE | 2016-04-23 11:16 | HHI.PR ---
Subjective Remarks Patient seen and examined today. Patient denies any new complaints. No change in clinical status. Objective Vitals Vital Signs Date Time Temp Pulse Resp B/P Pulse Ox O2 Delivery O2 Flow Rate FiO2 04/23/16 08:00 97.5 76 20 109/70 93 04/22/16 20:00 97.1 80 16 110/70 94 04/22/16 17:30 80 108/68 04/22/16 12:30 79 101/66 I/O 04/22/16 04/22/16 04/22/16 04/23/16 04/23/16 04/23/16 06:59 14:59 22:59 06:59 14:59 22:59 Intake Total 1440 ml 440 ml 0 ml Output Total 250 ml 100 ml 750 ml 250 ml Balance -250 ml 1340 ml -310 ml -250 ml Intake Oral 0 ml 0 ml 0 ml Tube Feeding 840 ml 240 ml Other 600 ml 200 ml Output Urine Total 250 ml 100 ml 750 ml 250 ml # Bowel Movements 1 3 Result Diagram: 04/23/16 0620 04/22/16 1010 Objective Remarks GENERAL: Well-developed, well-nourished, in no acute distress. Patient awake and alert HEENT: Head is normocephalic without any lesions or masses noted. Facial features are symmetric. Eyes: Extraocular muscles are intact. Conjunctivae were clear. Mild edema noted to right upper eyelid NECK: Supple without any masses. Trachea midline no deviation. No JVD, no bruits are appreciated CARDIAC: Regular rhythm, regular rate. S1/S2 are heard. No murmurs gallops or rubs. LUNGS: Clear to auscultation bilaterally. No wheeze, rhonchi or rales. No use of accessory muscles on inspiration or expiration. ABDOMEN: Soft, nontender. Nondistended. Bowel sounds heard in all 4 quadrants. No organomegaly or masses. Negative rebound, negative guarding, suprapubic catheter in place, PEG tube noted EXTREMITIES: No edema, pulses are equal bilaterally. No cyanosis or clubbing NEUROLOGY: Mood and affect appear appropriate. Cranial nerves II through XII grossly intact. Moving all extremities Procedures None Urinary Catheter: Yes Assessment to: Continue Soto insert reason: Prolonged Immobilization Date of Insertion: Apr 21, 2016 Vascular Central Line Catheter: No A/P Assessment and Plan Upper GI bleed: Nursing staff indicates that patient has dark colored stool Hemoglobin has remained stable during his stay in the hospital GI was following Continue PPI. Protein calorie malnutrition: Improving Consulted dietitian who indicated that patient may be converted to bolus feeding Jevity 1.5, 6 cans per day. 1.5 cans that 0800 and 2000, 1 can at 1100, 1400, 1700 Prealbumin level 24 Dementia with inappropriate behavior, mood disorder improved patient more somnolent today, likely secondary to medication use, patient is afebrile, no tachycardia, no signs of infection. Patient was with inappropriate sexual behavior. Groping the nursing staff, indicating sexual activities, Patient has been hospitalized for similar events in 2015 Consulted psychiatry for further evaluation, who indicated that this is a frontal lobe dementia Risperdal 0.25 mg during the day, Risperdal 0.5 mg at night Continue Remeron Hypotension with episodes of hypertension: Stable Blood pressure labile. Continue monitor blood pressure Continue Midodrine. Elevated BUN, stable Continue fluid flushes via PEG tube to avoid dehydration. Stage I decubitus ulcer, sacral skin tear: Continue wound care. Parkinson's disease: Patient has dementia and resting tremor. Chronic, stable. Weakness: Continue physical therapy Nursing staff to get patient up out of bed at least 3 times daily Palliative care evaluation According to palliative care notes. Family wishes aggressive management, they are expecting him to improve, go to a rehabilitation facility and then improve enough to go home. They are deferring hospice. DVT prophylaxis: SCDs. Avoid chemical prophylaxis secondary to GI bleed. Discharge Planning Discharge planning to [facility]pc facility once arrangements made by case management 04/17/16 [facility] IN [place] WAS HERE TO SEE PATIENT AND FELT HE WAS FINE TO ACCEPT TO GO THERE. SHE WILL NOTIFY THEM THAT SHE CAN ACCEPT HIM. Jaguar Walker Apr 23, 2016 11:15
[2016-04-23 20:30] VITALS: BP 101/66; PULSE 68; RESP 18; TEMP 98.3; O2SAT 91
[2016-04-23] MEDS: MIRTAZAPINE 15 MG TAB PEG SCH (21:16)
[2016-04-24] MEDS: MIDODRINE 5 MG TAB PO SCH ×3 (05:39→17:14)
[2016-04-24 08:00] VITALS: BP 121/74; PULSE 67; RESP 20; TEMP 97; O2SAT 96
--- NOTE | 2016-04-24 09:06 | HHI.PR ---
Subjective Remarks Patient seen and examined today. Patient denies any new complaints. No change in clinical status. Objective Vitals Vital Signs Date Time Temp Pulse Resp B/P Pulse Ox O2 Delivery O2 Flow Rate FiO2 04/24/16 08:00 97.0 67 20 121/74 96 04/23/16 20:30 98.3 68 18 101/66 91 I/O 04/23/16 04/23/16 04/23/16 04/24/16 04/24/16 04/24/16 07:00 15:00 23:00 07:00 15:00 23:00 Intake Total 0 ml 50 ml 660 ml Output Total 250 ml 350 ml 700 ml Balance -250 ml -300 ml 660 ml -700 ml Intake Oral 0 ml 50 ml Tube Feeding 360 ml Other 300 ml Output Urine Total 250 ml 350 ml 700 ml # Bowel Movements 3 2 Result Diagram: 04/23/16 0620 04/22/16 1010 Objective Remarks GENERAL: Well-developed, well-nourished, in no acute distress. Patient awake and alert HEENT: Head is normocephalic without any lesions or masses noted. Facial features are symmetric. Eyes: Extraocular muscles are intact. Conjunctivae were clear. Mild edema noted to right upper eyelid NECK: Supple without any masses. Trachea midline no deviation. No JVD, no bruits are appreciated CARDIAC: Regular rhythm, regular rate. S1/S2 are heard. No murmurs gallops or rubs. LUNGS: Clear to auscultation bilaterally. No wheeze, rhonchi or rales. No use of accessory muscles on inspiration or expiration. ABDOMEN: Soft, nontender. Nondistended. Bowel sounds heard in all 4 quadrants. No organomegaly or masses. Negative rebound, negative guarding, suprapubic catheter in place, PEG tube noted EXTREMITIES: No edema, pulses are equal bilaterally. No cyanosis or clubbing NEUROLOGY: Mood and affect appear appropriate. Cranial nerves II through XII grossly intact. Moving all extremities Procedures None Urinary Catheter: Yes (suprapubic catheter) Assessment to: Continue Soto insert reason: Prolonged Immobilization Date of Insertion: Apr 21, 2016 Vascular Central Line Catheter: No A/P Assessment and Plan Upper GI bleed: Nursing staff indicates that patient has dark colored stool Hemoglobin has remained stable GI was following Continue PPI. Protein calorie malnutrition: Improving Consulted dietitian who indicated that patient may be converted to bolus feeding Jevity 1.5, 6 cans per day. 1.5 cans that 0800 and 2000, 1 can at 1100, 1400, 1700 Prealbumin level 24 Dementia with inappropriate behavior, mood disorder improved patient more somnolent today, likely secondary to medication use, patient is afebrile, no tachycardia, no signs of infection. Patient was with inappropriate sexual behavior. Groping the nursing staff, indicating sexual activities, Patient has been hospitalized for similar events in 2015 Consulted psychiatry for further evaluation, who indicated that this is a frontal lobe dementia Risperdal 0.25 mg during the day, Risperdal 0.5 mg at night Continue Remeron Hypotension with episodes of hypertension: Stable Blood pressure labile. Continue monitor blood pressure Continue Midodrine. Elevated BUN, stable Continue fluid flushes via PEG tube to avoid dehydration. Stage I decubitus ulcer, sacral skin tear: Continue wound care. Parkinson's disease: Patient has dementia and resting tremor. Chronic, stable. Weakness: Continue physical therapy Nursing staff to get patient up out of bed at least 3 times daily Palliative care evaluation According to palliative care notes. Family wishes aggressive management, they are expecting him to improve, go to a rehabilitation facility and then improve enough to go home. They are deferring hospice. DVT prophylaxis: SCDs. Avoid chemical prophylaxis secondary to GI bleed. [facility] once arrangements made by case management 04/17/16 [facility] IN [place] WAS HERE TO SEE PATIENT AND FELT HE WAS FINE TO ACCEPT TO GO THERE. SHE WILL NOTIFY THEM THAT SHE CAN ACCEPT HIM. Jaguar Walker Apr 24, 2016 09:06
[2016-04-24] MEDS: ALLOPURINOL 100 MG TAB PEG SCH (09:41)
[2016-04-24] MEDS: LANSOPRAZOLE SOLUTAB 30 MG TAB PEG SCH (09:41)
[2016-04-24 20:15] VITALS: BP 120/82; PULSE 82; RESP 18; TEMP 96.9; O2SAT 95
[2016-04-24] MEDS: MIRTAZAPINE 15 MG TAB PEG SCH (21:14)
[2016-04-25] MEDS: MIDODRINE 5 MG TAB PO SCH ×3 (05:39→16:51)
[2016-04-25 08:00] VITALS: BP 113/67; PULSE 80; RESP 18; TEMP 98.2; O2SAT 97
[2016-04-25] MEDS: LANSOPRAZOLE SOLUTAB 30 MG TAB PEG SCH (08:22)
[2016-04-25] MEDS: ALLOPURINOL 100 MG TAB PEG SCH (08:23)
--- NOTE | 2016-04-25 09:21 | HHI.PR ---
Subjective Remarks Patient seen and examined today. Patient denies any new complaints. No change in clinical status. Objective Vitals Vital Signs Date Time Temp Pulse Resp B/P Pulse Ox O2 Delivery O2 Flow Rate FiO2 04/24/16 20:15 96.9 82 18 120/82 95 I/O 04/24/16 04/24/16 04/24/16 04/25/16 04/25/16 04/25/16 06:59 14:59 22:59 06:59 14:59 22:59 Intake Total 25 ml 560 ml 560 ml Output Total 700 ml 350 ml Balance -700 ml -325 ml 560 ml 560 ml Intake Oral 25 ml 0 ml Tube Feeding 360 ml 360 ml Other 200 ml 200 ml Output Urine Total 700 ml 350 ml # Bowel Movements 1 1 3 Result Diagram: 04/23/16 0620 04/22/16 1010 Objective Remarks GENERAL: Well-developed, well-nourished, in no acute distress. Patient awake and alert HEENT: Head is normocephalic without any lesions or masses noted. Facial features are symmetric. Eyes: Extraocular muscles are intact. Conjunctivae were clear. Mild edema noted to right upper eyelid NECK: Supple without any masses. Trachea midline no deviation. No JVD, no bruits are appreciated CARDIAC: Regular rhythm, regular rate. S1/S2 are heard. No murmurs gallops or rubs. LUNGS: Clear to auscultation bilaterally. No wheeze, rhonchi or rales. No use of accessory muscles on inspiration or expiration. ABDOMEN: Soft, nontender. Nondistended. Bowel sounds heard in all 4 quadrants. No organomegaly or masses. Negative rebound, negative guarding, suprapubic catheter in place, PEG tube noted EXTREMITIES: No edema, pulses are equal bilaterally. No cyanosis or clubbing NEUROLOGY: Mood and affect appear appropriate. Cranial nerves II through XII grossly intact. Moving all extremities Procedures None Urinary Catheter: No Date of Insertion: Apr 21, 2016 Vascular Central Line Catheter: No A/P Assessment and Plan Upper GI bleed: Resolved Hemoglobin has remained stable GI was following Continue PPI. Protein calorie malnutrition: Improving Consulted dietitian who indicated that patient may be converted to bolus feeding Jevity 1.5, 6 cans per day. 1.5 cans that 0800 and 2000, 1 can at 1100, 1400, 1700 Prealbumin level 24 Dementia with inappropriate behavior, mood disorder improved patient more somnolent today, likely secondary to medication use, patient is afebrile, no tachycardia, no signs of infection. Patient was with inappropriate sexual behavior. Groping the nursing staff, indicating sexual activities, Patient has been hospitalized for similar events in 2015 Consulted psychiatry for further evaluation, who indicated that this is a frontal lobe dementia Risperdal 0.25 mg during the day, Risperdal 0.5 mg at night Continue Remeron Hypotension with episodes of hypertension: Stable Blood pressure labile. Continue monitor blood pressure Continue Midodrine. Elevated BUN, stable Continue fluid flushes via PEG tube to avoid dehydration. Stage I decubitus ulcer, sacral skin tear: Continue wound care. Parkinson's disease: Patient has dementia and resting tremor. Chronic, stable. Weakness: Continue physical therapy Nursing staff to get patient up out of bed at least 3 times daily Palliative care evaluation According to palliative care notes. Family wishes aggressive management, they are expecting him to improve, go to a rehabilitation facility and then improve enough to go home. They are deferring hospice. DVT prophylaxis: SCDs. Avoid chemical prophylaxis secondary to GI bleed. Discharge Planning Discharge planning to [facility] facility once arrangements made by case management 04/24/16 [id number] REQUESTED [facility] TO [facility] FOR PLACMENT AND THE HAVE DECLINED ACCEPTANCE. WILL CONT TO SEEK OTHER CHOICES CECILE JEMAL SUMNER/DORIS/Jaguar Selby Apr 25, 2016 09:21
[2016-04-25 20:00] VITALS: BP 85/65; PULSE 73; RESP 20; TEMP 97.6; O2SAT 96
[2016-04-25] MEDS: MIRTAZAPINE 15 MG TAB PEG SCH (21:14)
[2016-04-26] MEDS: MIDODRINE 5 MG TAB PO SCH ×3 (06:12→17:34)
[2016-04-26 08:00] VITALS: BP 102/68; PULSE 70; RESP 18; TEMP 97.4; O2SAT 97
[2016-04-26] MEDS: LANSOPRAZOLE SOLUTAB 30 MG TAB PEG SCH (08:33)
[2016-04-26] MEDS: ALLOPURINOL 100 MG TAB PEG SCH (08:33)
--- NOTE | 2016-04-26 14:30 | HHI.PR ---
Subjective Remarks Patient seen and examined today. Patient denies any new complaints. No change in clinical status. Objective Vitals Vital Signs Date Time Temp Pulse Resp B/P Pulse Ox O2 Delivery O2 Flow Rate FiO2 04/26/16 08:00 97.4 70 18 102/68 97 04/25/16 20:00 97.6 73 20 85/65 96 I/O 04/25/16 04/25/16 04/25/16 04/26/16 04/26/16 04/26/16 07:00 15:00 23:00 07:00 15:00 23:00 Intake Total 560 ml 880 ml 440 ml 400 ml 20 ml Output Total 500 ml 375 ml Balance 560 ml 880 ml -60 ml 400 ml -355 ml Intake Oral 20 ml Tube Feeding 360 ml 480 ml 240 ml 400 ml Other 200 ml 400 ml 200 ml Output Urine Total 500 ml 375 ml # Bowel Movements 3 1 Result Diagram: 04/23/16 0620 04/22/16 1010 Objective Remarks GENERAL: Well-developed, well-nourished, in no acute distress. Patient awake and alert HEENT: Head is normocephalic without any lesions or masses noted. Facial features are symmetric. Eyes: Extraocular muscles are intact. Conjunctivae were clear. Mild edema noted to right upper eyelid NECK: Supple without any masses. Trachea midline no deviation. No JVD, no bruits are appreciated CARDIAC: Regular rhythm, regular rate. S1/S2 are heard. No murmurs gallops or rubs. LUNGS: Clear to auscultation bilaterally. No wheeze, rhonchi or rales. No use of accessory muscles on inspiration or expiration. ABDOMEN: Soft, nontender. Nondistended. Bowel sounds heard in all 4 quadrants. No organomegaly or masses. Negative rebound, negative guarding, suprapubic catheter in place, PEG tube noted EXTREMITIES: No edema, pulses are equal bilaterally. No cyanosis or clubbing NEUROLOGY: Mood and affect appear appropriate. Cranial nerves II through XII grossly intact. Moving all extremities Procedures None Urinary Catheter: Yes Assessment to: Continue Soto insert reason: Obstruction/Retention Date of Insertion: Apr 21, 2016 Vascular Central Line Catheter: No A/P Assessment and Plan Upper GI bleed: Resolved Hemoglobin has remained stable GI was following Continue PPI. Protein calorie malnutrition: Improving Consulted dietitian who indicated that patient may be converted to bolus feeding Jevity 1.5, 6 cans per day. 1.5 cans that 0800 and 2000, 1 can at 1100, 1400, 1700 Prealbumin level 24 Dementia with inappropriate behavior, mood disorder improved patient more somnolent today, likely secondary to medication use, patient is afebrile, no tachycardia, no signs of infection. Patient was with inappropriate sexual behavior. Groping the nursing staff, indicating sexual activities, Patient has been hospitalized for similar events in 2015 Consulted psychiatry for further evaluation, who indicated that this is a frontal lobe dementia Risperdal 0.25 mg during the day, Risperdal 0.5 mg at night Continue Remeron Hypotension with episodes of hypertension: Stable Blood pressure labile. Continue monitor blood pressure Continue Midodrine. Elevated BUN, stable Continue fluid flushes via PEG tube to avoid dehydration. Stage I decubitus ulcer, sacral skin tear: Continue wound care. Parkinson's disease: Patient has dementia and resting tremor. Chronic, stable. Weakness: Continue physical therapy Nursing staff to get patient up out of bed at least 3 times daily Palliative care evaluation According to palliative care notes. Family wishes aggressive management, they are expecting him to improve, go to a rehabilitation facility and then improve enough to go home. They are deferring hospice. DVT prophylaxis: SCDs. Avoid chemical prophylaxis secondary to GI bleed. Discharge Planning Discharge planning to senior care facility once arrangements made by case management 04/24/16 0116 REQUESTED [facility] TO [facility] FOR PLACMENT AND THE HAVE DECLINED ACCEPTANCE. WILL CONT TO SEEK OTHER CHOICES CECILE JOAQUIN V BELT CURER/DORIS/Jaguar Selby Apr 26, 2016 14:29
[2016-04-26 20:00] VITALS: BP 99/61; PULSE 82; RESP 20; TEMP 95.8; O2SAT 94
[2016-04-26] MEDS: MIRTAZAPINE 15 MG TAB PEG SCH (20:02)
[2016-04-27] MEDS: MIDODRINE 5 MG TAB PO SCH ×3 (06:27→17:02)
[2016-04-27 08:00] VITALS: BP 100/62; PULSE 66; RESP 19; TEMP 95.7; O2SAT 94
[2016-04-27] MEDS: LANSOPRAZOLE SOLUTAB 30 MG TAB PEG SCH (08:09)
[2016-04-27] MEDS: ALLOPURINOL 100 MG TAB PEG SCH (08:09)
--- NOTE | 2016-04-27 10:06 | HHI.PR ---
Subjective Remarks Patient seen and examined today. Patient denies any new complaints. No change in clinical status Objective Vitals Vital Signs Date Time Temp Pulse Resp B/P Pulse Ox O2 Delivery O2 Flow Rate FiO2 04/27/16 08:00 95.7 66 19 100/62 94 04/26/16 20:00 95.8 82 20 99/61 94 I/O 04/26/16 04/26/16 04/26/16 04/27/16 04/27/16 04/27/16 07:00 15:00 23:00 07:00 15:00 23:00 Intake Total 400 ml 20 ml 1740 ml 120 ml 560 ml Output Total 375 ml 1025 ml Balance 400 ml -355 ml 1740 ml -905 ml 560 ml Intake Oral 20 ml 0 ml Tube Feeding 400 ml 1440 ml 360 ml Tube Irrigant 300 ml 120 ml Other 200 ml Output Urine Total 375 ml 1025 ml # Bowel Movements 1 3 3 Result Diagram: 04/23/16 0620 Objective Remarks GENERAL: Well-developed, well-nourished, in no acute distress. Patient awake and alert HEENT: Head is normocephalic without any lesions or masses noted. Facial features are symmetric. Eyes: Extraocular muscles are intact. Conjunctivae were clear. Mild edema noted to right upper eyelid NECK: Supple without any masses. Trachea midline no deviation. No JVD, no bruits are appreciated CARDIAC: Regular rhythm, regular rate. S1/S2 are heard. No murmurs gallops or rubs. LUNGS: Clear to auscultation bilaterally. No wheeze, rhonchi or rales. No use of accessory muscles on inspiration or expiration. ABDOMEN: Soft, nontender. Nondistended. Bowel sounds heard in all 4 quadrants. No organomegaly or masses. Negative rebound, negative guarding, suprapubic catheter in place, PEG tube noted EXTREMITIES: No edema, pulses are equal bilaterally. No cyanosis or clubbing NEUROLOGY: Mood and affect appear appropriate. Cranial nerves II through XII grossly intact. Moving all extremities Procedures None Date of Insertion: Apr 21, 2016 A/P Assessment and Plan Upper GI bleed: Resolved Hemoglobin has remained stable GI was following Continue PPI. Protein calorie malnutrition: Improving Consulted dietitian who indicated that patient may be converted to bolus feeding Jevity 1.5, 6 cans per day. 1.5 cans that 0800 and 1999, 1 can at 1100, 1400, 1700 Prealbumin level 24 Dementia with inappropriate behavior, mood disorder improved patient more somnolent today, likely secondary to medication use, patient is afebrile, no tachycardia, no signs of infection. Patient was with inappropriate sexual behavior. Groping the nursing staff, indicating sexual activities, Patient has been hospitalized for similar events in 2015 Consulted psychiatry for further evaluation, who indicated that this is a frontal lobe dementia Risperdal 0.25 mg during the day, Risperdal 0.5 mg at night Continue Remeron Hypotension with episodes of hypertension: Stable Blood pressure labile. Continue monitor blood pressure Continue Midodrine. Elevated BUN, stable Continue fluid flushes via PEG tube to avoid dehydration. Stage I decubitus ulcer, sacral skin tear: Continue wound care. Parkinson's disease: Patient has dementia and resting tremor. Chronic, stable. Weakness: Continue physical therapy Nursing staff to get patient up out of bed at least 3 times daily Palliative care evaluation According to palliative care notes. Family wishes aggressive management, they are expecting him to improve, go to a rehabilitation facility and then improve enough to go home. They are deferring hospice. DVT prophylaxis: SCDs. Avoid chemical prophylaxis secondary to GI bleed. Discharge Planning Discharge planning to [facility] facility once arrangements made by case management 04/24/16 [id number] REQUESTED [facility] TO [facility] FOR PLACMENT AND THE HAVE DECLINED ACCEPTANCE. WILL CONT TO SEEK OTHER CHOICES CECILE [employer] C[employer]TER/CM/CNARGE Jaguar Walker Apr 27, 2016 10:05
[2016-04-27 20:00] VITALS: BP 107/66; PULSE 65; RESP 20; TEMP 96.9; O2SAT 96
[2016-04-27] MEDS: MIRTAZAPINE 15 MG TAB PEG SCH (21:16)
[2016-04-28] MEDS: MIDODRINE 5 MG TAB PO SCH ×3 (05:36→17:00)
[2016-04-28 08:00] VITALS: BP 101/70; PULSE 80; RESP 20; TEMP 96.7; O2SAT 94
[2016-04-28] MEDS: ALLOPURINOL 100 MG TAB PEG SCH (09:00)
[2016-04-28] MEDS: LANSOPRAZOLE SOLUTAB 30 MG TAB PEG SCH (09:00)
--- NOTE | 2016-04-28 09:22 | HHI.PR ---
Subjective Remarks Patient seen and examined today. Patient denies any new complaints. No change in clinical status. Objective Vitals Vital Signs Date Time Temp Pulse Resp B/P Pulse Ox O2 Delivery O2 Flow Rate FiO2 04/28/16 08:00 96.7 80 20 101/70 94 04/27/16 20:00 96.9 65 20 107/66 96 I/O 04/27/16 04/27/16 04/27/16 04/28/16 04/28/16 04/28/16 07:00 15:00 23:00 07:00 15:00 23:00 Intake Total 120 ml 1440 ml 440 ml 1120 ml Output Total 1025 ml 600 ml 800 ml Balance -905 ml 840 ml -360 ml 1120 ml Intake Oral 0 ml 0 ml Tube Feeding 840 ml 240 ml 720 ml Tube Irrigant 120 ml Other 600 ml 200 ml 400 ml Output Urine Total 1025 ml 600 ml 800 ml # Bowel Movements 3 2 2 Objective Remarks GENERAL: Well-developed, well-nourished, in no acute distress. Patient awake and alert HEENT: Head is normocephalic without any lesions or masses noted. Facial features are symmetric. Eyes: Extraocular muscles are intact. Conjunctivae were clear. Mild edema noted to right upper eyelid NECK: Supple without any masses. Trachea midline no deviation. No JVD, no bruits are appreciated CARDIAC: Regular rhythm, regular rate. S1/S2 are heard. No murmurs gallops or rubs. LUNGS: Clear to auscultation bilaterally. No wheeze, rhonchi or rales. No use of accessory muscles on inspiration or expiration. ABDOMEN: Soft, nontender. Nondistended. Bowel sounds heard in all 4 quadrants. No organomegaly or masses. Negative rebound, negative guarding, suprapubic catheter in place, PEG tube noted EXTREMITIES: No edema, pulses are equal bilaterally. No cyanosis or clubbing NEUROLOGY: Mood and affect appear appropriate. Cranial nerves II through XII grossly intact. Moving all extremities Procedures None Urinary Catheter: Yes Assessment to: Continue Soto insert reason: Obstruction/Retention Date of Insertion: Apr 21, 2016 Vascular Central Line Catheter: No A/P Assessment and Plan Upper GI bleed: Resolved Hemoglobin has remained stable GI was following Continue PPI. Protein calorie malnutrition: Improving Consulted dietitian who indicated that patient may be converted to bolus feeding Jevity 1.5, 6 cans per day. 1.5 cans that 0800 and 2000, 1 can at 1100, 1400, 1700 Prealbumin level 24 Dementia with inappropriate behavior, mood disorder improved patient more somnolent today, likely secondary to medication use, patient is afebrile, no tachycardia, no signs of infection. Patient was with inappropriate sexual behavior. Groping the nursing staff, indicating sexual activities, Patient has been hospitalized for similar events in 2015 Consulted psychiatry for further evaluation, who indicated that this is a frontal lobe dementia Risperdal 0.25 mg during the day, Risperdal 0.5 mg at night Continue Remeron Hypotension with episodes of hypertension: Stable Blood pressure labile. Continue monitor blood pressure Continue Midodrine. Elevated BUN, stable Continue fluid flushes via PEG tube to avoid dehydration. Stage I decubitus ulcer, sacral skin tear: Continue wound care. Parkinson's disease: Patient has dementia and resting tremor. Chronic, stable. Weakness: Continue physical therapy Nursing staff to get patient up out of bed at least 3 times daily Palliative care evaluation According to palliative care notes. Family wishes aggressive management, they are expecting him to improve, go to a rehabilitation facility and then improve enough to go home. They are deferring hospice. DVT prophylaxis: SCDs. Avoid chemical prophylaxis secondary to GI bleed. Discharge Planning Discharge planning to [facility] facility once arrangements made by case management 04/24/16 0881 REQUESTED [facility] TO [facility] FOR PLACMENT AND THE HAVE DECLINED ACCEPTANCE. WILL CONT TO SEEK OTHER CHOICES CECILE [employer] DIRECT[employer]/CM/CNARGE Jaguar Walker Apr 28, 2016 09:22
[2016-04-28 20:00] VITALS: BP 109/75; PULSE 85; RESP 20; TEMP 98.6; O2SAT 96
[2016-04-28] MEDS: MIRTAZAPINE 15 MG TAB PEG SCH (21:32)
[2016-04-29] MEDS: MIDODRINE 5 MG TAB PO SCH ×3 (05:52→16:39)
[2016-04-29 08:00] VITALS: BP 108/69; PULSE 85; RESP 20; TEMP 98.6; O2SAT 94
[2016-04-29] MEDS: ALLOPURINOL 100 MG TAB PEG SCH (09:03)
[2016-04-29] MEDS: LANSOPRAZOLE SOLUTAB 30 MG TAB PEG SCH (09:03)
--- NOTE | 2016-04-29 14:42 | HHI.PR ---
Subjective Remarks Patient seen and examined today with Dr. Carranza, patient denies any new complaints. No change in clinical status Objective Vitals Vital Signs Date Time Temp Pulse Resp B/P Pulse Ox O2 Delivery O2 Flow Rate FiO2 04/29/16 08:00 98.6 85 20 108/69 94 04/28/16 20:00 98.6 85 20 109/75 96 Manual Cuff/Auscultation I/O 04/28/16 04/28/16 04/28/16 04/29/16 04/29/16 04/29/16 06:59 14:59 22:59 06:59 14:59 22:59 Intake Total 1120 ml 0 ml 0 ml 1120 ml 1210 ml Output Total 400 ml 600 ml Balance 1120 ml -400 ml 0 ml 1120 ml 610 ml Intake Oral 0 ml 0 ml 30 ml Oral Supplement 1180 ml Tube Feeding 720 ml 720 ml Other 400 ml 400 ml Output Urine Total 400 ml 600 ml # Bowel Movements 1 4 Objective Remarks GENERAL: Well-developed, well-nourished, in no acute distress. Patient awake and alert HEENT: Head is normocephalic without any lesions or masses noted. Facial features are symmetric. Eyes: Extraocular muscles are intact. Conjunctivae were clear. Mild edema noted to right upper eyelid NECK: Supple without any masses. Trachea midline no deviation. No JVD, no bruits are appreciated CARDIAC: Regular rhythm, regular rate. S1/S2 are heard. No murmurs gallops or rubs. LUNGS: Clear to auscultation bilaterally. No wheeze, rhonchi or rales. No use of accessory muscles on inspiration or expiration. ABDOMEN: Soft, nontender. Nondistended. Bowel sounds heard in all 4 quadrants. No organomegaly or masses. Negative rebound, negative guarding, suprapubic catheter in place, PEG tube noted EXTREMITIES: No edema, pulses are equal bilaterally. No cyanosis or clubbing NEUROLOGY: Mood and affect appear appropriate. Cranial nerves II through XII grossly intact. Moving all extremities Procedures None Urinary Catheter: Yes Assessment to: Continue Soto insert reason: Obstruction/Retention Date of Insertion: Apr 21, 2016 Vascular Central Line Catheter: No A/P Assessment and Plan Upper GI bleed: Resolved Hemoglobin has remained stable GI was following Continue PPI. Protein calorie malnutrition: Improving Consulted dietitian who indicated that patient may be converted to bolus feeding Jevity 1.5, 6 cans per day. 1.5 cans that 0800 and 2000, 1 can at 1100, 1400, 1700 Prealbumin level 24 Dementia with inappropriate behavior, mood disorder improved patient more somnolent today, likely secondary to medication use, patient is afebrile, no tachycardia, no signs of infection. Patient was with inappropriate sexual behavior. Groping the nursing staff, indicating sexual activities, Patient has been hospitalized for similar events in 2015 Consulted psychiatry for further evaluation, who indicated that this is a frontal lobe dementia Risperdal 0.25 mg during the day, Risperdal 0.5 mg at night Continue Remeron Hypotension with episodes of hypertension: Stable Blood pressure labile. Continue monitor blood pressure Continue Midodrine. Elevated BUN, stable Continue fluid flushes via PEG tube to avoid dehydration. Stage I decubitus ulcer, sacral skin tear: Continue wound care. Parkinson's disease: Patient has dementia and resting tremor. Chronic, stable. Weakness: Continue physical therapy Nursing staff to get patient up out of bed at least 3 times daily Palliative care evaluation According to palliative care notes. Family wishes aggressive management, they are expecting him to improve, go to a rehabilitation facility and then improve enough to go home. They are deferring hospice. DVT prophylaxis: SCDs. Avoid chemical prophylaxis secondary to GI bleed. Discharge Planning [facility] once arrangements made by case management 04/24/16 [id number] REQUESTED [facility] TO [facility] FOR PLACMENT AND THE HAVE DECLINED ACCEPTANCE. WILL CONT TO SEEK OTHER CHOICES CECILE JOAQUIN LPN/DORIS/Jaguar Selby Apr 29, 2016 14:41
[2016-04-29 20:50] VITALS: BP 118/71; PULSE 75; RESP 18; TEMP 96.9; O2SAT 94
[2016-04-29] MEDS: MIRTAZAPINE 15 MG TAB PEG SCH (21:13)
[2016-04-30] MEDS: MIDODRINE 5 MG TAB PO SCH ×3 (06:17→16:54)
[2016-04-30 08:00] VITALS: BP 106/68; PULSE 74; RESP 20; TEMP 97.5; O2SAT 95
[2016-04-30] MEDS: ALLOPURINOL 100 MG TAB PEG SCH (08:48)
[2016-04-30] MEDS: LANSOPRAZOLE SOLUTAB 30 MG TAB PEG SCH (08:48)
--- NOTE | 2016-04-30 10:34 | HHI.PR ---
Subjective Remarks When I asked the patient if he is ok, he shakes his head "no", but does not know why. No acute changes. Objective Vitals Vital Signs Date Time Temp Pulse Resp B/P Pulse Ox O2 Delivery O2 Flow Rate FiO2 04/30/16 08:00 97.5 74 20 106/68 95 04/29/16 20:50 96.9 75 18 118/71 94 I/O 04/29/16 04/29/16 04/29/16 04/30/16 04/30/16 04/30/16 07:00 15:00 23:00 07:00 15:00 23:00 Intake Total 560 ml 1210 ml 360 ml Output Total 950 ml 300 ml 620 ml Balance 560 ml 260 ml 60 ml -620 ml Intake Oral 30 ml Oral Supplement 1180 ml Tube Feeding 360 ml 360 ml Other 200 ml Output Urine Total 950 ml 300 ml 620 ml # Bowel Movements 6 1 Objective Remarks GENERAL: Well developed male in no apparent distress sleeping. CARDIOVASCULAR: Regular rate and rhythm. RESPIRATORY: Limited anterior exam. No accessory muscle use. Clear to auscultation bilaterally. GASTROINTESTINAL: Abdomen soft, non-tender, non-distended. NEUROLOGICAL: Arouses to voice. Nods head to questions. Follows commands. PSYCHIATRIC: Calm affect. Procedures None Urinary Catheter: No Date of Insertion: Apr 21, 2016 Vascular Central Line Catheter: No A/P Problem List: (1) GI bleed ICD Code: K92.2 Status: Acute (2) Essential tremor ICD Code: G25.0 Status: Chronic (3) Dementia ICD Code: F03.90 Status: Chronic (4) Parkinson disease ICD Code: G20 Status: Chronic (5) Hypotension ICD Code: I95.9 Status: Chronic (6) Loose stools ICD Code: R19.5 Status: Resolved (7) Chalazion of right upper eyelid ICD Code: H00.11 Status: Acute Assessment and Plan Upper and lower GI bleeding: Resolved Hemoglobin has remained stable GI was involved but has signed off. Continue PPI. Protein calorie malnutrition: Improving Consulted dietitian who indicated that patient may be converted to bolus feeding Jevity 1.5 bolus 1.5 cans @ 0800 and 2000 and 1-can @ 1100, 1400, and 1700. Free Water Flush 100ml before and after each bolus feeding Prealbumin level 23 Patient desired to eat and speech therapy advised puree diet, thin liquids, but patient has not been eating anything. Dementia with inappropriate behavior, mood disorder improved Patient was with inappropriate sexual behavior. Groping the nursing staff, indicating sexual activities, although no recent reports of this. Patient has been hospitalized for similar events in 2014 Consulted psychiatry for further evaluation, who indicated that this is a frontal lobe dementia Risperdal 0.25 mg during the day, Risperdal 0.5 mg at night. Risperdal was discontinued per POA request. Continue Remeron Psychiatry was reconsulted and is ok with discontinuation of Risperdal, but recommends Haldol 1-2 mg q12 prn for aggressive behavior and agitation. I have not witnessed any behavior like this recently. Probable seborrheic dermatitis: Improved. Flaky skin to the face and neck. -Much improved s/p one time dose of Ketoconazole 2% shampoo. -Monitor need for further treatments. Chalazion: Persistent nodule R upper eyelid. There is no evidence of preseptal cellulitis. -Warm compresses were applied but it was greater than 2 weeks without significant improvement. -Ophthalmology was consulted and evaluated patient on 03/26. S/p warm compresses and Tobradex 4 times a day OD x 2 weeks. Patient was intermittently compliant with eyedrops. -No worsening. Follow-up outpatient. Hypotension with episodes of hypertension: Blood pressure labile. Continue Midodrine. Patient on max dose. Increase free water flushes as needed. Elevated BUN, stable Continue fluid flushes via PEG tube to avoid dehydration. Stage I decubitus ulcer, sacral skin tear: Continue wound care. Mild obstructive uropathy: Resolved. Patient with good urine output. Appreciate urology recommendations. Suprapubic catheter in place, last changed 04/21/16. To be changed monthly, Abdominal pelvis CT 03/06/16 shows resolution of right sided hydronephrosis. Urinary tract infection: Resolved Urine culture positive for Proteus mirabilis and GBS. Patient has completed course of antibiotics. Abdominal pelvis CT 03/06 shows decompressed bladder with circumferential bladder wall thickening and intraluminal air possibly indicating cystitis, but the patient has been afebrile with normal WBC count. No treatment indicated. Weakness: Continue physical therapy Nursing staff to get patient up out of bed at least 3 times daily Palliative care evaluation According to palliative care notes. Family wishes aggressive management, they are expecting him to improve, go to a rehabilitation facility and then improve enough to go home. They are deferring hospice. DVT prophylaxis: SCDs. Avoid chemical prophylaxis secondary to GI bleed. Discharge Planning [facility] declined patient per 04/24 CM note. Madeline Ortez Apr 30, 2016 10:34 Madeline Ortez Apr 30, 2016 10:34
--- NOTE | 2016-04-30 13:25 | MB ---
cc: KATHERINE BILLINGS DATE OF CONSULTATION: 04/25/2016 CHIEF COMPLAINT Bilateral painful toenails. HISTORY OF PRESENT ILLNESS Mr. Edmond is a long-term patient at [facility]. He was admitted in October of this year for evaluation of a GI bleed and has been unable to have placement until this time. PAST MEDICAL HISTORY 1. Anorexia. 2. Dementia. 3. Right knee osteoarthritis. 4. Essential tremor. 5. Hiatal hernia. 6. GERD. 7. Hypothyroidism. 8. Gout. 9. Possible hepatitis C. PAST SURGICAL HISTORY 1. PEG treatment. 2. Suprapubic catheter placement. MEDICATIONS Please see list. ALLERGIES 1. DEPAKOTE. 2. LEVAQUIN. 3. OLANZAPINE. 4. SEROQUEL. FAMILY HISTORY Noncontributory. SOCIAL HISTORY Noncontributory. PHYSICAL EXAMINATION The patient has no palpable DP or PT pulses, but the feet are warm and capillary fill time is less than 3 seconds. He has hammertoes of the lesser digits bilaterally. No open lesions. No breaks in the skin. Biomechanical manual muscle testing was unable to be performed. The patient is nonverbal. The nails were elongated, thickened, discolored and painful to the touch. The patient withdrew with palpation. ASSESSMENT 1. Bilateral onychomycosis. 2. Status post bedside debridement PLAN Will sign off at this time. Nursing staff is asked to notify if any changes to the patient's condition. Thank you for this consultation. Katherine VILLAR/BT /12:59 PM /1:17 PM
[2016-04-30 20:00] VITALS: BP 102/64; PULSE 71; RESP 20; TEMP 97.8; O2SAT 97
[2016-04-30] MEDS: MIRTAZAPINE 15 MG TAB PEG SCH (21:12)
[2016-05-01] MEDS: MIDODRINE 5 MG TAB PO SCH ×3 (06:07→17:21)
[2016-05-01 07:44] VITALS: BP 97/67; PULSE 84; RESP 17; TEMP 98.1; O2SAT 94
[2016-05-01] MEDS: LANSOPRAZOLE SOLUTAB 30 MG TAB PEG SCH (07:54)
[2016-05-01] MEDS: ALLOPURINOL 100 MG TAB PEG SCH (07:54)
[2016-05-01 09:18] VITALS: BP 97/67; PULSE 84; RESP 17; TEMP 98.1; O2SAT 94
--- NOTE | 2016-05-01 11:51 | HHI.PR ---
Subjective Remarks No acute complaints. No change in clinical status. Objective Vitals Vital Signs Date Time Temp Pulse Resp B/P Pulse Ox O2 Delivery O2 Flow Rate FiO2 05/01/16 09:18 98.1 84 17 97/67 94 05/01/16 07:44 98.1 84 17 97/67 94 04/30/16 20:00 97.8 71 20 102/64 97 I/O 04/30/16 04/30/16 04/30/16 05/01/16 05/01/16 05/01/16 07:00 15:00 23:00 07:00 15:00 23:00 Intake Total 560 ml 200 ml Output Total 620 ml 450 ml 300 ml 275 ml Balance -620 ml -450 ml 260 ml -75 ml Intake Oral 0 ml 0 ml Tube Feeding 360 ml Tube Irrigant 200 ml 200 ml Output Urine Total 620 ml 450 ml 300 ml 275 ml # Bowel Movements 1 2 4 0 Objective Remarks GENERAL: Well developed male in no apparent distress sleeping. SKIN: Flaking skin to face. CARDIOVASCULAR: Regular rate and rhythm. RESPIRATORY: Limited anterior exam. No accessory muscle use. Clear to auscultation bilaterally. GASTROINTESTINAL: Abdomen soft, non-tender, non-distended. NEUROLOGICAL: Arouses to voice. Nods head to questions. Tremor L hand. PSYCHIATRIC: Calm affect. Procedures None Urinary Catheter: Yes Assessment to: Continue Soto insert reason: Prolonged Immobilization Date of Insertion: Apr 21, 2016 Vascular Central Line Catheter: No A/P Problem List: (1) GI bleed ICD Code: K92.2 Status: Acute (2) Essential tremor ICD Code: G25.0 Status: Chronic (3) Dementia ICD Code: F03.90 Status: Chronic (4) Parkinson disease ICD Code: G20 Status: Chronic (5) Hypotension ICD Code: I95.9 Status: Chronic (6) Loose stools ICD Code: R19.5 Status: Resolved (7) Chalazion of right upper eyelid ICD Code: H00.11 Status: Acute Assessment and Plan Upper and lower GI bleeding: Resolved Hemoglobin has remained stable GI was involved but has signed off. Continue PPI. Protein calorie malnutrition: Improving Consulted dietitian who indicated that patient may be converted to bolus feeding Jevity 1.5 bolus 1.5 cans @ 0800 and 2000 and 1-can @ 1100, 1400, and 1700. Free Water Flush 100ml before and after each bolus feeding Prealbumin level 23 Patient desired to eat and speech therapy advised puree diet, thin liquids, but patient has not been eating anything. Dementia with inappropriate behavior, mood disorder improved Patient was with inappropriate sexual behavior. Groping the nursing staff, indicating sexual activities, although no recent reports of this. Patient has been hospitalized for similar events in 2015 Consulted psychiatry for further evaluation, who indicated that this is a frontal lobe dementia Risperdal 0.25 mg during the day, Risperdal 0.5 mg at night. Risperdal was discontinued per POA request. Continue Remeron Psychiatry was reconsulted and is ok with discontinuation of Risperdal, but recommends Haldol 1-2 mg q12 prn for aggressive behavior and agitation. I have not witnessed any behavior like this recently. Probable seborrheic dermatitis: Flaky skin to the face and neck. -Improved s/p one time dose of Ketoconazole 2% shampoo. -Monitor need for further treatments. May need to order once per week. Chalazion: Persistent nodule R upper eyelid. There is no evidence of preseptal cellulitis. -Warm compresses were applied but it was greater than 2 weeks without significant improvement. -Ophthalmology was consulted and evaluated patient on 03/26. S/p warm compresses and Tobradex 4 times a day OD x 2 weeks. Patient was intermittently compliant with eyedrops. -No worsening. Follow-up outpatient. Hypotension with episodes of hypertension: BP 97/67 this morning which is not unusual for patient. Blood pressure labile. Continue Midodrine. Patient on max dose. Increase free water flushes as needed. Elevated BUN, stable Continue fluid flushes via PEG tube to avoid dehydration. Stage I decubitus ulcer, sacral skin tear: Continue wound care. Mild obstructive uropathy: Resolved. Appreciate urology recommendations. Suprapubic catheter in place, last changed 04/21/16. To be changed monthly, Abdominal pelvis CT 03/06/16 shows resolution of right sided hydronephrosis. Urinary tract infection: Resolved Urine culture positive for Proteus mirabilis and GBS. Patient has completed course of antibiotics. Abdominal pelvis CT 03/06 shows decompressed bladder with circumferential bladder wall thickening and intraluminal air possibly indicating cystitis, but the patient has been afebrile with normal WBC count. No treatment indicated. Weakness: Continue physical therapy Nursing staff to get patient up out of bed at least 3 times daily Palliative care evaluation According to palliative care notes. Family wishes aggressive management, they are expecting him to improve, go to a rehabilitation facility and then improve enough to go home. They are deferring hospice. DVT prophylaxis: SCDs. Avoid chemical prophylaxis secondary to GI bleed. Discharge Planning [facility] declined patient per 04/24 CM note. Madeline Ortez May 01, 2016 11:51
[2016-05-01] MEDS: MIRTAZAPINE 15 MG TAB PEG SCH (19:48)
[2016-05-01 20:00] VITALS: BP 111/67; PULSE 66; RESP 18; TEMP 97.5; O2SAT 96
[2016-05-02] MEDS: MIDODRINE 5 MG TAB PO SCH ×3 (06:03→16:21)
[2016-05-02] MEDS: LANSOPRAZOLE SOLUTAB 30 MG TAB PEG SCH (07:54)
[2016-05-02] MEDS: ALLOPURINOL 100 MG TAB PEG SCH (07:55)
[2016-05-02 08:00] VITALS: BP 119/79; PULSE 71; RESP 20; TEMP 96.8; O2SAT 95
--- NOTE | 2016-05-02 11:17 | HHI.PR ---
Subjective Remarks No acute complaints. No change in clinical status. Objective Vitals Vital Signs Date Time Temp Pulse Resp B/P Pulse Ox O2 Delivery O2 Flow Rate FiO2 05/02/16 08:00 96.8 71 20 119/79 95 05/01/16 20:00 97.5 66 18 111/67 96 I/O 05/01/16 05/01/16 05/01/16 05/02/16 05/02/16 05/02/16 07:00 15:00 23:00 07:00 15:00 23:00 Intake Total 200 ml 800 ml 0 ml Output Total 275 ml 351 ml 600 ml Balance -75 ml 449 ml -600 ml Intake Oral 0 ml IV Total 0 ml 0 ml Tube Feeding 600 ml Tube Irrigant 200 ml 200 ml Output Urine Total 275 ml 350 ml 600 ml Stool Total 1 ml # Bowel Movements 0 1 2 Objective Remarks GENERAL: Disheveled well developed male in no apparent distress. SKIN: Flaking skin to face. CARDIOVASCULAR: Regular rate and rhythm. RESPIRATORY: Limited anterior exam. No accessory muscle use. Clear to auscultation bilaterally. GASTROINTESTINAL: Abdomen soft, non-tender, non-distended. NEUROLOGICAL: Nods head to questions, but does speak to me today. Speech is normal. PSYCHIATRIC: Calm affect. Procedures None Urinary Catheter: No Date of Insertion: Apr 21, 2016 Vascular Central Line Catheter: No A/P Problem List: (1) GI bleed ICD Code: K92.2 Status: Acute (2) Essential tremor ICD Code: G25.0 Status: Chronic (3) Dementia ICD Code: F03.90 Status: Chronic (4) Parkinson disease ICD Code: G20 Status: Chronic (5) Hypotension ICD Code: I95.9 Status: Chronic (6) Loose stools ICD Code: R19.5 Status: Resolved (7) Chalazion of right upper eyelid ICD Code: H00.11 Status: Acute Assessment and Plan Upper and lower GI bleeding: Resolved Hemoglobin has remained stable GI was involved but has signed off. Continue PPI. Protein calorie malnutrition: Improving Consulted dietitian who indicated that patient may be converted to bolus feeding Jevity 1.5 bolus 1.5 cans @ 0800 and 2000 and 1-can @ 1100, 1400, and 1700. Free Water Flush 100ml before and after each bolus feeding Prealbumin level 23 Patient desired to eat and speech therapy advised puree diet, thin liquids, but patient has not been eating anything. Dementia with inappropriate behavior, mood disorder improved Patient was with inappropriate sexual behavior. Groping the nursing staff, indicating sexual activities, although no recent reports of this. Patient has been hospitalized for similar events in 2014 Consulted psychiatry for further evaluation, who indicated that this is a frontal lobe dementia Risperdal 0.25 mg during the day, Risperdal 0.5 mg at night. Risperdal was discontinued per POA request. Continue Remeron Psychiatry was reconsulted and is ok with discontinuation of Risperdal, but recommends Haldol 1-2 mg q12 prn for aggressive behavior and agitation. I have not witnessed any behavior like this recently. Probable seborrheic dermatitis: Flaky skin to the face and neck. -Improved s/p one time dose of Ketoconazole 2% shampoo. -Monitor need for further treatments. May need to order once per week. Chalazion: Persistent nodule R upper eyelid. There is no evidence of preseptal cellulitis. -Warm compresses were applied but it was greater than 2 weeks without significant improvement. -Ophthalmology was consulted and evaluated patient on 03/26. S/p warm compresses and Tobradex 4 times a day OD x 2 weeks. Patient was intermittently compliant with eyedrops. -No worsening. Follow-up outpatient. Hypotension with episodes of hypertension: Blood pressure labile. Continue Midodrine. Patient on max dose. Increase free water flushes as needed. Elevated BUN, stable Continue fluid flushes via PEG tube to avoid dehydration. Stage I decubitus ulcer, sacral skin tear: Continue wound care. Mild obstructive uropathy: Resolved. Appreciate urology recommendations. Suprapubic catheter in place, last changed 04/21/16. To be changed monthly, Abdominal pelvis CT 03/06/16 shows resolution of right sided hydronephrosis. Urinary tract infection: Resolved Urine culture positive for Proteus mirabilis and GBS. Patient has completed course of antibiotics. Abdominal pelvis CT 03/06 shows decompressed bladder with circumferential bladder wall thickening and intraluminal air possibly indicating cystitis, but the patient has been afebrile with normal WBC count. No treatment indicated. Weakness: Continue physical therapy Nursing staff to get patient up out of bed at least 3 times daily Palliative care evaluation According to palliative care notes. Family wishes aggressive management, they are expecting him to improve, go to a rehabilitation facility and then improve enough to go home. They are deferring hospice. DVT prophylaxis: SCDs. Avoid chemical prophylaxis secondary to GI bleed. Discharge Planning [facility] declined patient per 04/24 CM note. Madeline Ortez May 02, 2016 11:17
[2016-05-02 18:47] LABS: AUTOMATED NEUTROPHIL # 4.6 TH/MM3 (1.8-7.7); BASOPHIL # 0.1 TH/MM3 (0-0.2); BASOPHIL % 0.7 % (0.0-2.0); EOSINOPHIL # 0.4 TH/MM3 (0-0.4); EOSINOPHIL % 5.8 % (0.0-4.0); HEMATOCRIT 44.6 % (39.0-51.0); LYMPH % 26.9 % (9.0-44.0); MEAN CELL VOLUME 85.9 FL (80.0-100.0); MEAN CORPUSCULAR HGB CONC 32.6 % (32.0-36.0); MONO % 6.8 % (0.0-8.0); NEUT % 59.8 % (16.0-70.0); PLATELET COUNT 235 TH/MM3 (150-450); RED CELL DISTRIBUTION WIDTH 14.8 % (11.6-17.2); WHITE BLOOD COUNT 7.6 TH/MM3 (4.0-11.0)
[2016-05-02 18:48] LABS: HEMO FLAGS DIFF FINAL
[2016-05-02 18:53] LABS: POTASSIUM 4.2 MEQ/L (3.5-5.1)
[2016-05-02 18:56] LABS: BICARBONATE 29.3 MEQ/L (21.0-32.0)
[2016-05-02 20:00] VITALS: BP 97/71; PULSE 79; RESP 18; TEMP 98.6; O2SAT 94
[2016-05-02] MEDS: MIRTAZAPINE 15 MG TAB PEG SCH (20:05)
[2016-05-03 00:33] LABS: HEMATOCRIT 43.9 % (39.0-51.0); REVIEW FLAG FINAL
[2016-05-03] MEDS: MIDODRINE 5 MG TAB PO SCH ×3 (06:39→17:19)
[2016-05-03 08:00] VITALS: BP 107/74; PULSE 78; RESP 17; TEMP 99; O2SAT 93
[2016-05-03 08:11] LABS: HEMATOCRIT 43.6 % (39.0-51.0); REVIEW FLAG FINAL
[2016-05-03] MEDS: ALLOPURINOL 100 MG TAB PEG SCH (08:13)
[2016-05-03] MEDS: LANSOPRAZOLE SOLUTAB 30 MG TAB PEG SCH (08:13)
--- NOTE | 2016-05-03 18:08 | HHI.PR ---
Subjective Remarks RN informs me patient is still having bloody stool but stool appears brick- colored rather than with streaks from possible hemorrhoids. She tells me patient has loose rather than hard stools. The patient denies any abdominal pain or vomiting. Objective Vitals Vital Signs Date Time Temp Pulse Resp B/P Pulse Ox O2 Delivery O2 Flow Rate FiO2 05/03/16 08:00 99.0 78 17 107/74 93 05/02/16 20:00 98.6 79 18 97/71 94 I/O 05/02/16 05/02/16 05/02/16 05/03/16 05/03/16 05/03/16 07:00 15:00 23:00 07:00 15:00 23:00 Intake Total 0 ml 1520 ml 0 ml Output Total 600 ml 350 ml 500 ml 350 ml Balance -600 ml -350 ml 1020 ml -350 ml Intake Oral 0 ml IV Total 0 ml Tube Feeding 1400 ml Tube Irrigant 120 ml Output Urine Total 600 ml 350 ml 500 ml 350 ml # Voids 1 # Bowel Movements 2 1 1 1 2 Result Diagram: 05/03/16 0745 05/02/16 1840 Objective Remarks GENERAL: Disheveled well developed male in no apparent distress. EYES: No conjunctival injection. CARDIOVASCULAR: Regular rate and rhythm. RESPIRATORY: Limited anterior exam. No accessory muscle use. Clear to auscultation bilaterally. GASTROINTESTINAL: Normoactive bowel sounds. Abdomen soft, non-tender, non- distended. NEUROLOGICAL: Nods head to questions. Tremor left hand PSYCHIATRIC: Normal mood and affect. Procedures None Urinary Catheter: Yes Assessment to: Continue Soto insert reason: Prolonged Immobilization Date of Insertion: Apr 21, 2016 Vascular Central Line Catheter: No A/P Problem List: (1) GI bleed ICD Code: K92.2 Status: Acute (2) Essential tremor ICD Code: G25.0 Status: Chronic (3) Dementia ICD Code: F03.90 Status: Chronic (4) Parkinson disease ICD Code: G20 Status: Chronic (5) Hypotension ICD Code: I95.9 Status: Chronic (6) Loose stools ICD Code: R19.5 Status: Resolved (7) Chalazion of right upper eyelid ICD Code: H00.11 Status: Acute Assessment and Plan Upper GI bleeding: Resolved. Lower GI bleeding: I was informed yesterday that the patient was having bright red blood in his stool again. Nurse informs me today that stool is brick colored. Patient is not constipated but rather has loose stools from tube feeds. Labs reviewed. Hemoglobin stable. GI was involved but signed off, but did advise to inform them of bleeding. I have reconsulted GI to evaluate patient. Continue PPI. Protein calorie malnutrition: Improving Consulted dietitian who indicated that patient may be converted to bolus feeding Jevity 1.5 bolus 1.5 cans @ 0800 and 2000 and 1-can @ 1100, 1400, and 1700. Free Water Flush 100ml before and after each bolus feeding Prealbumin level 23 Patient desired to eat and speech therapy advised puree diet, thin liquids, but patient has not been eating anything. Dementia with inappropriate behavior, mood disorder improved Patient was with inappropriate sexual behavior. Groping the nursing staff, indicating sexual activities, although no recent reports of this. Patient has been hospitalized for similar events in 2015 Consulted psychiatry for further evaluation, who indicated that this is a frontal lobe dementia Risperdal 0.25 mg during the day, Risperdal 0.5 mg at night. Risperdal was discontinued per POA request. Continue Remeron Psychiatry was reconsulted and is ok with discontinuation of Risperdal, but recommends Haldol 1-2 mg q12 prn for aggressive behavior and agitation. I have not witnessed any behavior like this recently. Probable seborrheic dermatitis: Flaky skin to the face and neck. -Improved s/p one time dose of Ketoconazole 2% shampoo. -Monitor need for further treatments. May need to order once per week. Chalazion: Persistent nodule R upper eyelid. There is no evidence of preseptal cellulitis. -Warm compresses were applied but it was greater than 2 weeks without significant improvement. -Ophthalmology was consulted and evaluated patient on 03/26. S/p warm compresses and Tobradex 4 times a day OD x 2 weeks. Patient was intermittently compliant with eyedrops. -No worsening. Follow-up outpatient. Hypotension with episodes of hypertension: Blood pressure labile. Continue Midodrine. Patient on max dose. Increase free water flushes as needed. Elevated BUN, stable Continue fluid flushes via PEG tube to avoid dehydration. Stage I decubitus ulcer, sacral skin tear: Continue wound care. Mild obstructive uropathy: Resolved. Appreciate urology recommendations. Suprapubic catheter in place, last changed 04/21/16. To be changed monthly, Abdominal pelvis CT 03/06/16 shows resolution of right sided hydronephrosis. Urinary tract infection: Resolved Urine culture positive for Proteus mirabilis and GBS. Patient has completed course of antibiotics. Abdominal pelvis CT 03/06 shows decompressed bladder with circumferential bladder wall thickening and intraluminal air possibly indicating cystitis, but the patient has been afebrile with normal WBC count. No treatment indicated. Weakness: Continue physical therapy Nursing staff to get patient up out of bed at least 3 times daily Palliative care evaluation According to palliative care notes. Family wishes aggressive management, they are expecting him to improve, go to a rehabilitation facility and then improve enough to go home. They are deferring hospice. DVT prophylaxis: SCDs. Avoid chemical prophylaxis secondary to GI bleed. Discharge Planning [facility] declined patient per 04/24 CM note. Madeline Ortez May 03, 2016 18:08
[2016-05-03 20:04] VITALS: BP 107/66; PULSE 80; RESP 14; TEMP 96.9; O2SAT 93
[2016-05-03] MEDS: MIRTAZAPINE 15 MG TAB PEG SCH (21:56)
[2016-05-04] MEDS: MIDODRINE 5 MG TAB PO SCH ×3 (06:02→17:17)
[2016-05-04 08:00] VITALS: BP 93/55; PULSE 78; RESP 18; TEMP 98.1; O2SAT 99
[2016-05-04] MEDS: ALLOPURINOL 100 MG TAB PEG SCH (08:36)
[2016-05-04] MEDS: LANSOPRAZOLE SOLUTAB 30 MG TAB PEG SCH (08:36)
--- NOTE | 2016-05-04 14:29 | HHI.GIFU ---
Subjective Remarks Reconsulted for rectal bleeding, spoke to the nurses, the patient had several angela color/ occasional blood streaks covering the stools, at least several times over the last few days, no change in bowel habit. Objective Vitals I&O Vital Signs Date Time Temp Pulse Resp B/P Pulse Ox O2 Delivery O2 Flow Rate FiO2 05/04/16 08:00 98.1 78 18 93/55 99 05/03/16 20:04 96.9 80 14 107/66 93 I/O 05/03/16 05/03/16 05/03/16 05/04/16 05/04/16 05/04/16 07:00 15:00 23:00 07:00 15:00 23:00 Intake Total 0 ml Output Total 350 ml 320 ml 100 ml Balance -350 ml -320 ml -100 ml Intake Oral 0 ml Output Urine Total 350 ml 320 ml 100 ml # Voids 1 # Bowel Movements 1 2 1 5 1 Physical Exam NECK: Neck is supple CHEST: CTA, diminished CARDIAC: RRR ABDOMEN: Soft, nondistended, nontender; PEG tube site without redness or swelling, suprapubic catheter in place. EXTREMITIES: No clubbing, cyanosis, or edema. G[employer] MANAGER: Awake, confused and nonverbal Assessment and Plan Plan ASSESSMENT: - Intermittent rectal bleeding, HH stable, HD stable and other tsai asymptomatic , originally consulted on 01/20 for upper GI bleed with coffee-ground emesis which resolved. Patient then developed bloody stools on 03/06. CT of the abdomen (03/06) due to reported abdominal pain which showed a large stool ball noted within the rectum and a large amount of stool throughout the colon. Pt started moving his bowels, the bleeding is likely related to constipation/stool impaction. H/H has remained stable. No further bleeding. Pt continues to have around 2 BMs per day per nursing staff. - Malnutrition. Pt is on Jevity 1.5 at 60 ml/h. Continued TF to be changed to bolus feedings as recommended by dietitian, per attending. Jevity 1.5, 6 cans per day. 1.5 cans that 0800 and 2000, 1 can at 1100, 1400, 1700. RN reports some period issues with the PEG tube becoming clogged but this has been able to be resolved by nursing staff. - Dementia, suprapubic catheter per attending - Overall the patient is friable and cachectic PLAN: - Anusol HC Supp for presumed hemorrhoids for 2 weeks - Monitor HH - Add fibers to tube feeding - Will consider endoscopic exam once more stable or if massive bleeding - Supportive care Jacob Espinoza MD May 04, 2016 14:29
--- NOTE | 2016-05-04 16:12 | HHI.PR ---
Subjective Remarks Follow-up for rectal bleeding. No acute complaints. Objective Vitals Vital Signs Date Time Temp Pulse Resp B/P Pulse Ox O2 Delivery O2 Flow Rate FiO2 05/04/16 08:00 98.1 78 18 93/55 99 05/03/16 20:04 96.9 80 14 107/66 93 I/O 05/03/16 05/03/16 05/03/16 05/04/16 05/04/16 05/04/16 07:00 15:00 23:00 07:00 15:00 23:00 Intake Total 0 ml Output Total 350 ml 320 ml 100 ml Balance -350 ml -320 ml -100 ml Intake Oral 0 ml Output Urine Total 350 ml 320 ml 100 ml # Voids 1 # Bowel Movements 1 2 1 5 1 Result Diagram: 05/03/16 0745 05/02/16 1840 Objective Remarks GENERAL: Well developed male in no apparent distress. CARDIOVASCULAR: Regular rate and rhythm. RESPIRATORY: Limited anterior exam. No accessory muscle use. Clear to auscultation bilaterally. GASTROINTESTINAL: Abdomen soft, non-tender, non-distended. NEUROLOGICAL: Nods head to questions. Tremor left hand. Follows commands. PSYCHIATRIC: Normal mood and affect. Procedures None Urinary Catheter: Yes Assessment to: Continue Soto insert reason: Prolonged Immobilization Date of Insertion: Apr 21, 2016 Vascular Central Line Catheter: No A/P Problem List: (1) GI bleed ICD Code: K92.2 Status: Acute (2) Essential tremor ICD Code: G25.0 Status: Chronic (3) Dementia ICD Code: F03.90 Status: Chronic (4) Parkinson disease ICD Code: G20 Status: Chronic (5) Hypotension ICD Code: I95.9 Status: Chronic (6) Loose stools ICD Code: R19.5 Status: Resolved (7) Chalazion of right upper eyelid ICD Code: H00.11 Status: Acute Assessment and Plan Upper GI bleeding: Resolved. Lower GI bleeding:Recurrent; bright red blood in his stool as well as brick colored stool. Patient is not constipated but rather has loose stools from tube feeds. Hemoglobin stable. GI again evaluated patient on 05/04. Dr. Espinoza has started hydrocortisone suppository for possible hemorrhoids 2 weeks. He suggests adding fiber to tube feeds. He states the patient could undergo an endoscopic exam one stable or if he has massive bleeding. Continue PPI. Protein calorie malnutrition: Improving Consulted dietitian who indicated that patient may be converted to bolus feeding Jevity 1.5 bolus 1.5 cans @ 0800 and 2000 and 1-can @ 1100, 1400, and 1700. Free Water Flush 100ml before and after each bolus feeding Prealbumin level 23 Patient desired to eat and speech therapy advised puree diet, thin liquids, but patient has not been eating anything. Dementia with inappropriate behavior, mood disorder improved Patient was with inappropriate sexual behavior. Groping the nursing staff, indicating sexual activities, although no recent reports of this. Patient has been hospitalized for similar events in 2015 Consulted psychiatry for further evaluation, who indicated that this is a frontal lobe dementia Risperdal 0.25 mg during the day, Risperdal 0.5 mg at night. Risperdal was discontinued per POA request. Continue Remeron Psychiatry was reconsulted and is ok with discontinuation of Risperdal, but recommends Haldol 1-2 mg q12 prn for aggressive behavior and agitation. I have not witnessed any behavior like this recently. Probable seborrheic dermatitis: Flaky skin to the face and neck. -Improved s/p one time dose of Ketoconazole 2% shampoo. -Monitor need for further treatments. May need to order once per week. Chalazion: Persistent nodule R upper eyelid. There is no evidence of preseptal cellulitis. -Warm compresses were applied but it was greater than 2 weeks without significant improvement. -Ophthalmology was consulted and evaluated patient on 03/26. S/p warm compresses and Tobradex 4 times a day OD x 2 weeks. Patient was intermittently compliant with eyedrops. -No worsening. Follow-up outpatient. Hypotension: Blood pressure labile. Continue Midodrine. Patient on max dose. Increase free water flushes as needed. Elevated BUN, stable Continue fluid flushes via PEG tube to avoid dehydration. Stage I decubitus ulcer, sacral skin tear: Continue wound care. Mild obstructive uropathy: Resolved. Appreciate urology recommendations. Suprapubic catheter in place, last changed 04/21/16. To be changed monthly, Abdominal pelvis CT 03/06/16 shows resolution of right sided hydronephrosis. Urinary tract infection: Resolved Urine culture positive for Proteus mirabilis and GBS. Patient has completed course of antibiotics. Abdominal pelvis CT 03/06 shows decompressed bladder with circumferential bladder wall thickening and intraluminal air possibly indicating cystitis, but the patient has been afebrile with normal WBC count. No treatment indicated. Weakness: Continue physical therapy Nursing staff to get patient up out of bed at least 3 times daily Palliative care evaluation According to palliative care notes. Family wishes aggressive management, they are expecting him to improve, go to a rehabilitation facility and then improve enough to go home. They are deferring hospice. DVT prophylaxis: SCDs. Avoid chemical prophylaxis secondary to GI bleed. Discharge Planning [facility] declined patient per 04/24 CM note. Madeline Ortez May 04, 2016 16:12
[2016-05-04 20:00] VITALS: BP 103/71; PULSE 69; RESP 18; TEMP 97.3; O2SAT 95
[2016-05-04] MEDS: MIRTAZAPINE 15 MG TAB PEG SCH (21:52)
[2016-05-04] MEDS: HYDROCORTISONE ACETATE 25 MG SUPP RECTAL SCH (21:52)
[2016-05-05] MEDS: MIDODRINE 5 MG TAB PO SCH ×3 (06:10→17:10)
[2016-05-05 08:00] VITALS: BP 104/62; PULSE 80; RESP 18; TEMP 98.8; O2SAT 95
[2016-05-05] MEDS: LANSOPRAZOLE SOLUTAB 30 MG TAB PEG SCH (09:26)
[2016-05-05] MEDS: ALLOPURINOL 100 MG TAB PEG SCH (09:26)
[2016-05-05] MEDS: HYDROCORTISONE ACETATE 25 MG SUPP RECTAL SCH ×2 (09:26→20:17)
--- NOTE | 2016-05-05 11:24 | HHI.PR ---
Subjective Remarks No acute complaints. No change in clinical status. Objective Vitals Vital Signs Date Time Temp Pulse Resp B/P Pulse Ox O2 Delivery O2 Flow Rate FiO2 05/05/16 08:00 98.8 80 18 104/62 95 05/04/16 20:00 97.3 69 18 103/71 95 I/O 05/04/16 05/04/16 05/04/16 05/05/16 05/05/16 05/05/16 07:00 15:00 23:00 07:00 15:00 23:00 Intake Total 560 ml 100 ml Output Total 100 ml 300 ml Balance -100 ml 260 ml 100 ml Tube Feeding 360 ml Other 200 ml 100 ml Output Urine Total 100 ml 300 ml # Bowel Movements 5 1 4 Result Diagram: 05/03/16 0745 05/02/16 1840 Objective Remarks GENERAL: Well developed male in no apparent distress. CARDIOVASCULAR: Regular rate and rhythm. RESPIRATORY: Limited anterior exam. No accessory muscle use. Clear to auscultation bilaterally. GASTROINTESTINAL: Normoactive bowel sounds. Abdomen soft, non-tender, non- distended. NEUROLOGICAL: Nods head to questions. Tremor left hand. Follows commands. PSYCHIATRIC: Normal mood and affect. Procedures None Urinary Catheter: Yes Assessment to: Continue Soto insert reason: Prolonged Immobilization Date of Insertion: Apr 21, 2016 Vascular Central Line Catheter: No A/P Problem List: (1) GI bleed ICD Code: K92.2 Status: Acute (2) Essential tremor ICD Code: G25.0 Status: Chronic (3) Dementia ICD Code: F03.90 Status: Chronic (4) Parkinson disease ICD Code: G20 Status: Chronic (5) Hypotension ICD Code: I95.9 Status: Chronic (6) Loose stools ICD Code: R19.5 Status: Resolved (7) Chalazion of right upper eyelid ICD Code: H00.11 Status: Acute Assessment and Plan Upper GI bleeding: Resolved. Lower GI bleeding:Recurrent; bright red blood in his stool as well as brick colored stool. Patient is not constipated but rather has loose stools from tube feeds. Hemoglobin stable. GI again evaluated patient on 05/04. Dr. Espinoza has started hydrocortisone suppository for possible hemorrhoids 2 weeks. He suggests adding fiber to tube feeds. He states the patient could undergo an endoscopic exam once stable or if he has massive bleeding. Continue PPI. Protein calorie malnutrition: Improving Consulted dietitian who indicated that patient may be converted to bolus feeding Jevity 1.5 bolus 1.5 cans @ 0800 and 2000 and 1-can @ 1100, 1400, and 1700. Free Water Flush 100ml before and after each bolus feeding Prealbumin level 23 Patient desired to eat and speech therapy advised puree diet, thin liquids, but patient has not been eating anything. Dementia with inappropriate behavior, mood disorder improved Patient was with inappropriate sexual behavior. Groping the nursing staff, indicating sexual activities, although no recent reports of this. Patient has been hospitalized for similar events in 2015 Consulted psychiatry for further evaluation, who indicated that this is a frontal lobe dementia Risperdal 0.25 mg during the day, Risperdal 0.5 mg at night. Risperdal was discontinued per POA request. Continue Remeron Psychiatry was reconsulted and is ok with discontinuation of Risperdal, but recommends Haldol 1-2 mg q12 prn for aggressive behavior and agitation. I have not witnessed any behavior like this recently. Probable seborrheic dermatitis: Flaky skin to the face and neck. -Improved s/p one time dose of Ketoconazole 2% shampoo. -Monitor need for further treatments. May need to order once per week. Chalazion: Persistent nodule R upper eyelid. There is no evidence of preseptal cellulitis. -Warm compresses were applied but it was greater than 2 weeks without significant improvement. -Ophthalmology was consulted and evaluated patient on 03/26. S/p warm compresses and Tobradex 4 times a day OD x 2 weeks. Patient was intermittently compliant with eyedrops. -No worsening. Follow-up outpatient. Hypotension: Blood pressure labile. Continue Midodrine. Patient on max dose. Increase free water flushes as needed. Elevated BUN, stable Continue fluid flushes via PEG tube to avoid dehydration. Stage I decubitus ulcer, sacral skin tear: Continue wound care. Mild obstructive uropathy: Resolved. Appreciate urology recommendations. Suprapubic catheter in place, last changed 04/21/16. To be changed monthly, Abdominal pelvis CT 03/06/16 shows resolution of right sided hydronephrosis. Urinary tract infection: Resolved Urine culture positive for Proteus mirabilis and GBS. Patient has completed course of antibiotics. Abdominal pelvis CT 03/06 shows decompressed bladder with circumferential bladder wall thickening and intraluminal air possibly indicating cystitis, but the patient has been afebrile with normal WBC count. No treatment indicated. Weakness: Continue physical therapy Nursing staff to get patient up out of bed at least 3 times daily Palliative care evaluation According to palliative care notes. Family wishes aggressive management, they are expecting him to improve, go to a rehabilitation facility and then improve enough to go home. They are deferring hospice. DVT prophylaxis: SCDs. Avoid chemical prophylaxis secondary to GI bleed. Discharge Planning [facility] declined patient per 04/24 CM note. Madeline Ortez May 05, 2016 11:24
[2016-05-05] MEDS: MIRTAZAPINE 15 MG TAB PEG SCH (20:17)
[2016-05-05 20:26] VITALS: BP 107/70; PULSE 65; RESP 16; TEMP 98.9; O2SAT 97
[2016-05-06] MEDS: MIDODRINE 5 MG TAB PO SCH ×3 (06:15→17:09)
[2016-05-06 08:00] VITALS: BP 102/75; PULSE 84; RESP 16; TEMP 97.9; O2SAT 94
--- NOTE | 2016-05-06 08:39 | HHI.PR ---
Subjective Remarks No acute complaints. No change in clinical status. Objective Vitals Vital Signs Date Time Temp Pulse Resp B/P Pulse Ox O2 Delivery O2 Flow Rate FiO2 05/06/16 08:00 97.9 84 16 102/75 94 05/05/16 20:26 98.9 65 16 107/70 97 I/O 05/05/16 05/05/16 05/05/16 05/06/16 05/06/16 05/06/16 07:00 15:00 23:00 07:00 15:00 23:00 Intake Total 100 ml 600 ml 60 ml Output Total 552 ml 450 ml Balance 100 ml 48 ml -390 ml Tube Feeding 360 ml Other 100 ml 240 ml 60 ml Output Urine Total 550 ml 450 ml Stool Total 2 ml # Bowel Movements 2 3 Result Diagram: 05/03/16 0745 05/02/16 1840 Objective Remarks GENERAL: Well developed male in no apparent distress. CARDIOVASCULAR: Regular rate and rhythm. RESPIRATORY: Limited anterior exam. No accessory muscle use. Clear to auscultation bilaterally. GASTROINTESTINAL: Abdomen soft, non-tender, non-distended. NEUROLOGICAL: Sleeping but arouses to voice and nods head to questions. Hand tremors. Follows commands. PSYCHIATRIC: Normal mood and affect. Procedures None Urinary Catheter: No Date of Insertion: Apr 21, 2016 Vascular Central Line Catheter: No A/P Problem List: (1) GI bleed ICD Code: K92.2 Status: Acute (2) Essential tremor ICD Code: G25.0 Status: Chronic (3) Dementia ICD Code: F03.90 Status: Chronic (4) Parkinson disease ICD Code: G20 Status: Chronic (5) Hypotension ICD Code: I95.9 Status: Chronic (6) Loose stools ICD Code: R19.5 Status: Resolved (7) Chalazion of right upper eyelid ICD Code: H00.11 Status: Acute Assessment and Plan Upper GI bleeding: Resolved. Lower GI bleeding:Recurrent; bright red blood in his stool as well as brick colored stool. Patient is not constipated but rather has loose stools from tube feeds. Hemoglobin stable. GI again evaluated patient on 05/04. Dr. Espinoza has started hydrocortisone suppository for possible hemorrhoids 2 weeks. He suggests adding fiber to tube feeds. He states the patient could undergo an endoscopic exam once stable or if he has massive bleeding. Continue PPI. Protein calorie malnutrition: Improving Consulted dietitian who indicated that patient may be converted to bolus feeding Jevity 1.5 bolus 1.5 cans @ 0800 and 2000 and 1-can @ 1100, 1400, and 1700. Free Water Flush 100ml before and after each bolus feeding Prealbumin level 23 Patient desired to eat and speech therapy advised puree diet, thin liquids, but patient has not been eating anything. Dementia with inappropriate behavior, mood disorder improved Patient was with inappropriate sexual behavior. Groping the nursing staff, indicating sexual activities, although no recent reports of this. Patient has been hospitalized for similar events in 2015 Consulted psychiatry for further evaluation, who indicated that this is a frontal lobe dementia Risperdal 0.25 mg during the day, Risperdal 0.5 mg at night. Risperdal was discontinued per POA request. Continue Remeron Psychiatry was reconsulted and is ok with discontinuation of Risperdal, but recommends Haldol 1-2 mg q12 prn for aggressive behavior and agitation. I have not witnessed any behavior like this recently. Probable seborrheic dermatitis: Flaky skin to the face and neck. -Improved s/p one time dose of Ketoconazole 2% shampoo. -Monitor need for further treatments. May need to order once per week. Chalazion: Persistent nodule R upper eyelid. There is no evidence of preseptal cellulitis. -Warm compresses were applied but it was greater than 2 weeks without significant improvement. -Ophthalmology was consulted and evaluated patient on 03/26. S/p warm compresses and Tobradex 4 times a day OD x 2 weeks. Patient was intermittently compliant with eyedrops. -No worsening. Follow-up outpatient. Hypotension: Blood pressure labile. Continue Midodrine. Patient on max dose. Increase free water flushes as needed. Elevated BUN, stable Continue fluid flushes via PEG tube to avoid dehydration. Stage I decubitus ulcer, sacral skin tear: Continue wound care. Mild obstructive uropathy: Resolved. Appreciate urology recommendations. Suprapubic catheter in place, last changed 04/21/16. To be changed monthly, Abdominal pelvis CT 03/06/16 shows resolution of right sided hydronephrosis. Urinary tract infection: Resolved Urine culture positive for Proteus mirabilis and GBS. Patient has completed course of antibiotics. Abdominal pelvis CT 03/06 shows decompressed bladder with circumferential bladder wall thickening and intraluminal air possibly indicating cystitis, but the patient has been afebrile with normal WBC count. No treatment indicated. Weakness: Continue physical therapy Nursing staff to get patient up out of bed at least 3 times daily Palliative care evaluation According to palliative care notes. Family wishes aggressive management, they are expecting him to improve, go to a rehabilitation facility and then improve enough to go home. They are deferring hospice. DVT prophylaxis: SCDs. Avoid chemical prophylaxis secondary to GI bleed. Discharge Planning [facility] declined patient per 04/24 CM note. Madeline Ortez May 06, 2016 08:39
[2016-05-06] MEDS: LANSOPRAZOLE SOLUTAB 30 MG TAB PEG SCH (08:52)
[2016-05-06] MEDS: HYDROCORTISONE ACETATE 25 MG SUPP RECTAL SCH ×2 (08:52→21:01)
[2016-05-06] MEDS: ALLOPURINOL 100 MG TAB PEG SCH (08:52)
[2016-05-06 20:00] VITALS: BP 101/68; PULSE 81; RESP 18; TEMP 96.5; O2SAT 95
[2016-05-06] MEDS: MIRTAZAPINE 15 MG TAB PEG SCH (21:41)
[2016-05-07] MEDS: MIDODRINE 5 MG TAB PO SCH ×3 (05:35→17:08)
[2016-05-07 08:01] VITALS: BP 109/70; PULSE 75; RESP 18; TEMP 98.3; O2SAT 96
[2016-05-07] MEDS: ALLOPURINOL 100 MG TAB PEG SCH (08:10)
[2016-05-07] MEDS: HYDROCORTISONE ACETATE 25 MG SUPP RECTAL SCH ×2 (08:10→20:47)
[2016-05-07] MEDS: LANSOPRAZOLE SOLUTAB 30 MG TAB PEG SCH (08:10)
--- NOTE | 2016-05-07 08:28 | HHI.PR ---
Subjective Remarks Patient seen and examined today. Patient denies any new complaints. No change in clinical status. Patient states that he does not want to get out of bed Objective Vitals Vital Signs Date Time Temp Pulse Resp B/P Pulse Ox O2 Delivery O2 Flow Rate FiO2 05/07/16 08:01 98.3 75 18 109/70 96 05/06/16 20:00 96.5 81 18 101/68 95 I/O 05/06/16 05/06/16 05/06/16 05/07/16 05/07/16 05/07/16 07:00 15:00 23:00 07:00 15:00 23:00 Intake Total 60 ml 1440 ml 800 ml 1120 ml Output Total 450 ml 400 ml 650 ml Balance -390 ml 1040 ml 800 ml 470 ml Intake Oral 0 ml Tube Feeding 840 ml 600 ml 720 ml Other 60 ml 600 ml 200 ml 400 ml Output Urine Total 450 ml 400 ml 650 ml # Voids 2 # Bowel Movements 3 1 1 1 Result Diagram: 05/03/16 0745 Objective Remarks GENERAL: Well-developed, well-nourished, in no acute distress. Patient awake and alert HEENT: Head is normocephalic without any lesions or masses noted. Facial features are symmetric. Eyes: Extraocular muscles are intact. Conjunctivae were clear. NECK: Trachea midline no deviation. CARDIAC: Regular rhythm, regular rate. S1/S2 are heard. No murmurs gallops or rubs. LUNGS: Clear to auscultation bilaterally. No wheeze, rhonchi or rales. No use of accessory muscles on inspiration or expiration. ABDOMEN: Soft, nontender. Nondistended. Bowel sounds heard in all 4 quadrants. No organomegaly or masses. Negative rebound, negative guarding, suprapubic catheter in place, PEG tube noted EXTREMITIES: No edema, pulses are equal bilaterally. No cyanosis or clubbing NEUROLOGY: Mood and affect appear appropriate. Cranial nerves II through XII grossly intact. Moving all extremities Procedures None Urinary Catheter: Yes (suprapubic catheter) Assessment to: Continue Soto insert reason: Obstruction/Retention Date of Insertion: Apr 21, 2016 Vascular Central Line Catheter: No A/P Assessment and Plan GI bleed with presenting of Upper GI bleed, patient with intermittent rectal bleeding: Resolved Hemoglobin continues to remain stable GI was following and reevaluated on 05/04/16 Presumed hemorrhoids, continue Anusol HC for 2 weeks Continue PPI. Protein calorie malnutrition: Improving Consulted dietitian who indicated that patient may be converted to bolus feeding Jevity 1.5, 6 cans per day. 1.5 cans that 0800 and 2000, 1 can at 1100, 1400, 1700 Prealbumin level 24 Dementia with inappropriate behavior, mood disorder improved patient more somnolent today, likely secondary to medication use, patient is afebrile, no tachycardia, no signs of infection. Patient was with inappropriate sexual behavior. Groping the nursing staff, indicating sexual activities, Patient has been hospitalized for similar events in 2015 Consulted psychiatry for further evaluation, who indicated that this is a frontal lobe dementia Risperdal 0.25 mg during the day, Risperdal 0.5 mg at night Continue Remeron Hypotension with episodes of hypertension: Stable Blood pressure labile. Continue monitor blood pressure Continue Midodrine. Elevated BUN, stable Continue fluid flushes via PEG tube to avoid dehydration. Stage I decubitus ulcer, sacral skin tear: Continue wound care. Parkinson's disease: Patient has dementia and resting tremor. Chronic, stable. Weakness: Continue physical therapy Nursing staff to get patient up out of bed at least 3 times daily Palliative care evaluation According to palliative care notes. Family wishes aggressive management, they are expecting him to improve, go to a rehabilitation facility and then improve enough to go home. They are deferring hospice. DVT prophylaxis: SCDs. Avoid chemical prophylaxis secondary to GI bleed. Discharge Planning Discharge planning to residential facility once arrangements made by case management 05/06/16 0705 PATIENT CONT TO BE A HARD PALCEMENT AND GETTING ACCEPTING SNF. REACHED BACK OUT TO A [facility] FACILITY TO RE-EVAL THEY STATED THEY WILL. RE-FAXED CLINICAL FOR EVALUATION CECILE JOAQUIN/BURAK/DORIS CHARGE Jaguar Walker May 07, 2016 08:28
[2016-05-07 20:00] VITALS: BP 120/84; PULSE 70; RESP 16; TEMP 97.5; O2SAT 96
[2016-05-07] MEDS: MIRTAZAPINE 15 MG TAB PEG SCH (20:47)
[2016-05-08] MEDS: MIDODRINE 5 MG TAB PO SCH ×3 (06:20→16:56)
[2016-05-08 08:00] VITALS: BP 113/72; PULSE 68; RESP 20; TEMP 96.9; O2SAT 97
[2016-05-08] MEDS: HYDROCORTISONE ACETATE 25 MG SUPP RECTAL SCH ×2 (08:00→20:19)
[2016-05-08] MEDS: LANSOPRAZOLE SOLUTAB 30 MG TAB PEG SCH (08:00)
[2016-05-08] MEDS: ALLOPURINOL 100 MG TAB PEG SCH (08:00)
--- NOTE | 2016-05-08 08:30 | HHI.PR ---
Subjective Remarks Patient seen and examined today. Patient denies any new complaints. No change in clinical status. Objective Vitals Vital Signs Date Time Temp Pulse Resp B/P Pulse Ox O2 Delivery O2 Flow Rate FiO2 05/07/16 20:00 97.5 70 16 120/84 96 I/O 05/07/16 05/07/16 05/07/16 05/08/16 05/08/16 05/08/16 07:00 15:00 23:00 07:00 15:00 23:00 Intake Total 1120 ml 480 ml 0 ml Output Total 650 ml 400 ml 175 ml 250 ml Balance 470 ml -400 ml 305 ml -250 ml Intake Oral 20 ml 0 ml Tube Feeding 720 ml 360 ml Tube Irrigant 100 ml Other 400 ml Output Urine Total 650 ml 400 ml 175 ml 250 ml # Bowel Movements 1 2 1 1 Objective Remarks GENERAL: Well-developed, well-nourished, in no acute distress. Patient awake and alert HEENT: Head is normocephalic without any lesions or masses noted. Facial features are symmetric. Eyes: Extraocular muscles are intact. Conjunctivae were clear. NECK: Trachea midline no deviation. CARDIAC: Regular rhythm, regular rate. S1/S2 are heard. No murmurs gallops or rubs. LUNGS: Clear to auscultation bilaterally. No wheeze, rhonchi or rales. No use of accessory muscles on inspiration or expiration. ABDOMEN: Soft, nontender. Nondistended. Bowel sounds heard in all 4 quadrants. No organomegaly or masses. Negative rebound, negative guarding, suprapubic catheter in place, PEG tube noted EXTREMITIES: No edema, pulses are equal bilaterally. No cyanosis or clubbing NEUROLOGY: Mood and affect appear appropriate. Cranial nerves II through XII grossly intact. Moving all extremities Procedures None Urinary Catheter: Yes (suprapubic catheter) Assessment to: Continue Soto insert reason: Obstruction/Retention Date of Insertion: Apr 21, 2016 Vascular Central Line Catheter: No A/P Assessment and Plan GI bleed with presenting of Upper GI bleed, patient with intermittent rectal bleeding: Resolved Hemoglobin continues to remain stable GI was following and reevaluated on 05/04/16 Presumed hemorrhoids, continue Anusol HC for 2 weeks Continue PPI. Protein calorie malnutrition: Improving Consulted dietitian who indicated that patient may be converted to bolus feeding Jevity 1.5, 6 cans per day. 1.5 cans that 0800 and 2000, 1 can at 1100, 1400, 1700 Prealbumin level 24 Dementia with inappropriate behavior, mood disorder improved patient more somnolent today, likely secondary to medication use, patient is afebrile, no tachycardia, no signs of infection. Patient was with inappropriate sexual behavior. Groping the nursing staff, indicating sexual activities, Patient has been hospitalized for similar events in 2015 Consulted psychiatry for further evaluation, who indicated that this is a frontal lobe dementia Risperdal 0.25 mg during the day, Risperdal 0.5 mg at night Continue Remeron Hypotension with episodes of hypertension: Stable Blood pressure labile. Continue monitor blood pressure Continue Midodrine. Elevated BUN, stable Continue fluid flushes via PEG tube to avoid dehydration. Stage I decubitus ulcer, sacral skin tear: Continue wound care. Parkinson's disease: Patient has dementia and resting tremor. Chronic, stable. Weakness: Continue physical therapy Nursing staff to get patient up out of bed at least 3 times daily Palliative care evaluation According to palliative care notes. Family wishes aggressive management, they are expecting him to improve, go to a rehabilitation facility and then improve enough to go home. They are deferring hospice. DVT prophylaxis: SCDs. Avoid chemical prophylaxis secondary to GI bleed. Discharge Planning [facility] once arrangements made by case management 05/06/16 1415 PATIENT CONT TO BE A HARD PALCEMENT AND GETTING ACCEPTING SNF. REACHED BACK OUT TO A [facility] FACILITY TO RE-EVAL THEY STATED THEY WILL. RE-FAXED CLINICAL FOR EVALUATION CECILE JOAQUIN/BURAK/DORIS CHARGE Jaguar Walker May 08, 2016 08:30
[2016-05-08 20:00] VITALS: BP 109/71; PULSE 66; RESP 18; TEMP 97.7; O2SAT 96
[2016-05-08] MEDS: MIRTAZAPINE 15 MG TAB PEG SCH (20:19)
[2016-05-09] MEDS: MIDODRINE 5 MG TAB PO SCH ×3 (06:10→17:17)
[2016-05-09 07:47] VITALS: BP 111/67; PULSE 79; RESP 17; TEMP 98.4; O2SAT 97
[2016-05-09] MEDS: HYDROCORTISONE ACETATE 25 MG SUPP RECTAL SCH ×2 (08:00→19:50)
[2016-05-09] MEDS: ALLOPURINOL 100 MG TAB PEG SCH (08:00)
[2016-05-09] MEDS: LANSOPRAZOLE SOLUTAB 30 MG TAB PEG SCH (08:00)
--- NOTE | 2016-05-09 09:13 | HHI.PR ---
Subjective Remarks Patient seen and examined today. Patient denies any new complaints. Patient in the thumbs up that he is doing well today Objective Vitals Vital Signs Date Time Temp Pulse Resp B/P Pulse Ox O2 Delivery O2 Flow Rate FiO2 05/09/16 07:47 98.4 79 17 111/67 97 05/08/16 20:00 97.7 66 18 109/71 96 I/O 05/08/16 05/08/16 05/08/16 05/09/16 05/09/16 05/09/16 06:59 14:59 22:59 06:59 14:59 22:59 Intake Total 0 ml 0 ml 2540 ml Output Total 250 ml 350 ml 250 ml 275 ml Balance -250 ml -350 ml 2290 ml -275 ml Intake Oral 0 ml 0 ml Tube Feeding 1440 ml Tube Irrigant 1100 ml Output Urine Total 250 ml 350 ml 250 ml 275 ml # Bowel Movements 1 1 1 0 Objective Remarks GENERAL: Well-developed, well-nourished, in no acute distress. Patient awake and alert HEENT: Head is normocephalic without any lesions or masses noted. Facial features are symmetric. Eyes: Extraocular muscles are intact. Conjunctivae were clear. NECK: Trachea midline no deviation. CARDIAC: Regular rhythm, regular rate. S1/S2 are heard. No murmurs gallops or rubs. LUNGS: Clear to auscultation bilaterally. No wheeze, rhonchi or rales. No use of accessory muscles on inspiration or expiration. ABDOMEN: Soft, nontender. Nondistended. Bowel sounds heard in all 4 quadrants. No organomegaly or masses. Negative rebound, negative guarding, suprapubic catheter in place, PEG tube noted EXTREMITIES: No edema, pulses are equal bilaterally. No cyanosis or clubbing NEUROLOGY: Mood and affect appear appropriate. Cranial nerves II through XII grossly intact. Moving all extremities Procedures None Urinary Catheter: Yes (suprapubic catheter) Assessment to: Continue Soto insert reason: Obstruction/Retention Date of Insertion: Apr 21, 2016 Vascular Central Line Catheter: No A/P Assessment and Plan GI bleed with presenting of Upper GI bleed, patient with intermittent rectal bleeding: Resolved Hemoglobin continues to remain stable GI was following and reevaluated on 05/04/16 Presumed hemorrhoids, continue Anusol HC for 2 weeks Continue PPI. Protein calorie malnutrition: Improving Consulted dietitian who indicated that patient may be converted to bolus feeding Jevity 1.5, 6 cans per day. 1.5 cans that 0800 and 2000, 1 can at 1100, 1400, 1700 Prealbumin level 24 Dementia with inappropriate behavior, mood disorder improved patient more somnolent today, likely secondary to medication use, patient is afebrile, no tachycardia, no signs of infection. Patient has not had any recurrent inappropriate behavior since increasing the Risperdal Patient has been hospitalized for similar events in 2015 Consulted psychiatry for further evaluation, who indicated that this is a frontal lobe dementia Risperdal 0.25 mg during the day, Risperdal 0.5 mg at night Continue Remeron Hypotension with episodes of hypertension: Stable Blood pressure labile. Continue monitor blood pressure Continue Midodrine. Elevated BUN, stable Continue fluid flushes via PEG tube to avoid dehydration. Stage I decubitus ulcer, sacral skin tear: Continue wound care. Parkinson's disease: Patient has dementia and resting tremor. Chronic, stable. Weakness: Continue physical therapy Nursing staff to get patient up out of bed at least 3 times daily Palliative care evaluation According to palliative care notes. Family wishes aggressive management, they are expecting him to improve, go to a rehabilitation facility and then improve enough to go home. They are deferring hospice. DVT prophylaxis: SCDs. Avoid chemical prophylaxis secondary to GI bleed. Discharge Planning Discharge planning to custodial facility once arrangements made by case management 05/06/16 [id number] PATIENT CONT TO BE A HARD PALCEMENT AND GETTING ACCEPTING SNF. REACHED BACK OUT TO A [facility] FACILITY TO RE-EVAL THEY STATED THEY WILL. RE-FAXED CLINICAL FOR EVALUATION CECILE JOAQUIN/BURAK/DORIS CHARGE [employer] May 09, 2016 09:12
[2016-05-09 10:19] VITALS: BP 113/67; PULSE 79; RESP 17; TEMP 98.4; O2SAT 97
[2016-05-09] MEDS: MIRTAZAPINE 15 MG TAB PEG SCH (19:50)
[2016-05-09 20:00] VITALS: BP 105/73; PULSE 75; RESP 16; TEMP 97.3; O2SAT 96
[2016-05-10] MEDS: MIDODRINE 5 MG TAB PO SCH ×3 (06:12→17:08)
[2016-05-10] MEDS: LANSOPRAZOLE SOLUTAB 30 MG TAB PEG SCH (07:43)
[2016-05-10] MEDS: HYDROCORTISONE ACETATE 25 MG SUPP RECTAL SCH ×2 (07:43→20:38)
[2016-05-10] MEDS: ALLOPURINOL 100 MG TAB PEG SCH (07:43)
[2016-05-10 08:00] VITALS: BP 94/67; PULSE 78; RESP 18; TEMP 97.8; O2SAT 95
--- NOTE | 2016-05-10 09:33 | HHI.PR ---
Subjective Remarks Patient seen and examined today. Patient denies any new complaints. No change in clinical status. Objective Vitals Vital Signs Date Time Temp Pulse Resp B/P Pulse Ox O2 Delivery O2 Flow Rate FiO2 05/10/16 08:00 97.8 78 18 94/67 95 05/09/16 20:00 97.3 75 16 105/73 96 05/09/16 10:19 98.4 79 17 113/67 97 I/O 05/09/16 05/09/16 05/09/16 05/10/16 05/10/16 05/10/16 07:00 15:00 23:00 07:00 15:00 23:00 Intake Total 840 ml 460 ml Output Total 275 ml 430 ml 775 ml Balance -275 ml 410 ml 460 ml -775 ml Tube Feeding 840 ml 360 ml Tube Irrigant 100 ml Output Urine Total 275 ml 430 ml 775 ml # Bowel Movements 0 1 2 Objective Remarks GENERAL: Well-developed, well-nourished, in no acute distress. Patient awake and alert HEENT: Head is normocephalic without any lesions or masses noted. Facial features are symmetric. Eyes: Extraocular muscles are intact. Conjunctivae were clear. NECK: Trachea midline no deviation. CARDIAC: Regular rhythm, regular rate. S1/S2 are heard. No murmurs gallops or rubs. LUNGS: Clear to auscultation bilaterally. No wheeze, rhonchi or rales. No use of accessory muscles on inspiration or expiration. ABDOMEN: Soft, nontender. Nondistended. Bowel sounds heard in all 4 quadrants. No organomegaly or masses. Negative rebound, negative guarding, suprapubic catheter in place, PEG tube noted EXTREMITIES: No edema, pulses are equal bilaterally. No cyanosis or clubbing NEUROLOGY: Mood and affect appear appropriate. Cranial nerves II through XII grossly intact. Moving all extremities Procedures None Urinary Catheter: Yes (suprapubic catheter) Assessment to: Continue Soto insert reason: Obstruction/Retention Date of Insertion: Apr 21, 2016 Vascular Central Line Catheter: No A/P Assessment and Plan GI bleed with presenting of Upper GI bleed, patient with intermittent rectal bleeding: Resolved Hemoglobin continues to remain stable GI was following and reevaluated on 05/04/16 Presumed hemorrhoids, continue Anusol HC for 2 weeks Continue PPI. Protein calorie malnutrition: Improving Consulted dietitian who indicated that patient may be converted to bolus feeding Jevity 1.5, 6 cans per day. 1.5 cans that 0800 and 2000, 1 can at 1100, 1400, 1700 Prealbumin level 24 Dementia with inappropriate behavior, mood disorder improved patient more somnolent today, likely secondary to medication use, patient is afebrile, no tachycardia, no signs of infection. Patient has not had any recurrent inappropriate behavior since increasing the Risperdal Patient has been hospitalized for similar events in 2015 Consulted psychiatry for further evaluation, who indicated that this is a frontal lobe dementia Risperdal 0.25 mg during the day, Risperdal 0.5 mg at night Continue Remeron Hypotension with episodes of hypertension: Stable Blood pressure labile. Continue monitor blood pressure Continue Midodrine. Elevated BUN, stable Continue fluid flushes via PEG tube to avoid dehydration. Stage I decubitus ulcer, sacral skin tear: Continue wound care. Parkinson's disease: Patient has dementia and resting tremor. Chronic, stable. Weakness: Continue physical therapy Nursing staff to get patient up out of bed at least 3 times daily Palliative care evaluation According to palliative care notes. Family wishes aggressive management, they are expecting him to improve, go to a rehabilitation facility and then improve enough to go home. They are deferring hospice. DVT prophylaxis: SCDs. Avoid chemical prophylaxis secondary to GI bleed. Discharge Planning Discharge planning to custodial facility once arrangements made by case management 05/06/16 [id number] PATIENT CONT TO BE A HARD PALCEMENT AND GETTING ACCEPTING SNF. REACHED BACK OUT TO A [facility] FACILITY TO RE-EVAL THEY STATED THEY WILL. RE-FAXED CLINICAL FOR EVALUATION CECILE JOAQUIN/BURAK/DORIS CHARGE [employer] May 10, 2016 09:33
[2016-05-10 20:10] VITALS: BP 128/86; PULSE 77; RESP 20; TEMP 98.2; O2SAT 96
[2016-05-10] MEDS: MIRTAZAPINE 15 MG TAB PEG SCH (20:38)
[2016-05-11] MEDS: MIDODRINE 5 MG TAB PO SCH ×3 (05:54→17:33)
[2016-05-11 08:00] VITALS: BP 104/67; PULSE 69; RESP 18; TEMP 97.4; O2SAT 95
--- NOTE | 2016-05-11 08:24 | HHI.PR ---
Subjective Remarks Patient seen and examined today. Patient has any new complaints. No change in clinical status. Objective Vitals Vital Signs Date Time Temp Pulse Resp B/P Pulse Ox O2 Delivery O2 Flow Rate FiO2 05/10/16 20:10 98.2 77 20 128/86 96 I/O 05/10/16 05/10/16 05/10/16 05/11/16 05/11/16 05/11/16 07:00 15:00 23:00 07:00 15:00 23:00 Intake Total 560 ml 460 ml Output Total 775 ml 700 ml Balance -775 ml 560 ml -240 ml Tube Feeding 360 ml 360 ml Other 200 ml 100 ml Output Urine Total 775 ml 700 ml # Bowel Movements 2 1 1 Objective Remarks GENERAL: Well-developed, well-nourished, in no acute distress. Patient awake and alert HEENT: Head is normocephalic without any lesions or masses noted. Facial features are symmetric. Eyes: Extraocular muscles are intact. Conjunctivae were clear. NECK: Trachea midline no deviation. CARDIAC: Regular rhythm, regular rate. S1/S2 are heard. No murmurs gallops or rubs. LUNGS: Clear to auscultation bilaterally. No wheeze, rhonchi or rales. No use of accessory muscles on inspiration or expiration. ABDOMEN: Soft, nontender. Nondistended. Bowel sounds heard in all 4 quadrants. No organomegaly or masses. Negative rebound, negative guarding, suprapubic catheter in place, PEG tube noted EXTREMITIES: No edema, pulses are equal bilaterally. No cyanosis or clubbing NEUROLOGY: Mood and affect appear appropriate. Cranial nerves II through XII grossly intact. Moving all extremities Procedures None Urinary Catheter: No Date of Insertion: Apr 21, 2016 Vascular Central Line Catheter: No A/P Assessment and Plan GI bleed with presenting of Upper GI bleed, patient with intermittent rectal bleeding: Resolved Hemoglobin continues to remain stable GI was following and reevaluated on 05/04/16 Presumed hemorrhoids, continue Anusol HC for 2 weeks Continue PPI. Protein calorie malnutrition: Improving Consulted dietitian who indicated that patient may be converted to bolus feeding Jevity 1.5, 6 cans per day. 1.5 cans that 0800 and 2000, 1 can at 1100, 1400, 1700 Prealbumin level 24 Dementia with inappropriate behavior, mood disorder improved patient more somnolent today, likely secondary to medication use, patient is afebrile, no tachycardia, no signs of infection. 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 Continue monitor blood pressure Continue Midodrine. Elevated BUN, stable Continue fluid flushes via PEG tube to avoid dehydration. Stage I decubitus ulcer, sacral skin tear: Continue wound care. Parkinson's disease: Patient has dementia and resting tremor. Chronic, stable. Weakness: Continue physical therapy Nursing staff to get patient up out of bed at least 3 times daily Palliative care evaluation According to palliative care notes. Family wishes aggressive management, they are expecting him to improve, go to a rehabilitation facility and then improve enough to go home. They are deferring hospice. DVT prophylaxis: SCDs. Avoid chemical prophylaxis secondary to GI bleed. Discharge Planning Discharge planning to [facility] facility once arrangements made by case management 05/06/16 1415 PATIENT CONT TO BE A HARD PALCEMENT AND GETTING ACCEPTING SNF. REACHED BACK OUT TO A [facility] TO RE-EVAL THEY STATED THEY WILL. RE-FAXED CLINICAL FOR EVALUATION CECILE JOAQUIN/BURAK/DORIS CHARGE [employer] Walker May 11, 2016 08:24
[2016-05-11] MEDS: LANSOPRAZOLE SOLUTAB 30 MG TAB PEG SCH (08:35)
[2016-05-11] MEDS: HYDROCORTISONE ACETATE 25 MG SUPP RECTAL SCH ×2 (08:35→20:45)
[2016-05-11] MEDS: ALLOPURINOL 100 MG TAB PEG SCH (08:35)
[2016-05-11 20:04] VITALS: BP 108/65; PULSE 70; RESP 16; TEMP 96.5; O2SAT 97
[2016-05-11] MEDS: MIRTAZAPINE 15 MG TAB PEG SCH (20:45)
[2016-05-12] MEDS: MIDODRINE 5 MG TAB PO SCH ×3 (05:25→16:57)
[2016-05-12 08:00] VITALS: BP 107/72; PULSE 81; RESP 18; TEMP 97.9; O2SAT 96
[2016-05-12] MEDS: HYDROCORTISONE ACETATE 25 MG SUPP RECTAL SCH ×2 (08:48→20:06)
[2016-05-12] MEDS: LANSOPRAZOLE SOLUTAB 30 MG TAB PEG SCH (08:48)
[2016-05-12] MEDS: ALLOPURINOL 100 MG TAB PEG SCH (08:48)
--- NOTE | 2016-05-12 10:09 | HHI.PR ---
Subjective Remarks Patient seen and examined today. Patient denies any new complaints. No change in clinical status. Objective Vitals Vital Signs Date Time Temp Pulse Resp B/P Pulse Ox O2 Delivery O2 Flow Rate FiO2 05/12/16 08:00 97.9 81 18 107/72 96 05/11/16 20:04 96.5 70 16 108/65 97 I/O 05/11/16 05/11/16 05/11/16 05/12/16 05/12/16 05/12/16 07:00 15:00 23:00 07:00 15:00 23:00 Intake Total 460 ml 0 ml 560 ml 560 ml Output Total 700 ml 350 ml 100 ml Balance -240 ml -350 ml 460 ml 560 ml Intake Oral 0 ml Tube Feeding 360 ml 360 ml 360 ml Other 100 ml 200 ml 200 ml Output Urine Total 700 ml 350 ml 100 ml # Bowel Movements 1 2 1 Objective Remarks GENERAL: Well-developed, well-nourished, in no acute distress. Patient awake and alert HEENT: Head is normocephalic without any lesions or masses noted. Facial features are symmetric. Eyes: Extraocular muscles are intact. Conjunctivae were clear. NECK: Trachea midline no deviation. CARDIAC: Regular rhythm, regular rate. S1/S2 are heard. No murmurs gallops or rubs. LUNGS: Clear to auscultation bilaterally. No wheeze, rhonchi or rales. No use of accessory muscles on inspiration or expiration. ABDOMEN: Soft, nontender. Nondistended. Bowel sounds heard in all 4 quadrants. No organomegaly or masses. Negative rebound, negative guarding, suprapubic catheter in place, PEG tube noted EXTREMITIES: No edema, pulses are equal bilaterally. No cyanosis or clubbing NEUROLOGY: Mood and affect appear appropriate. Cranial nerves II through XII grossly intact. Moving all extremities Procedures None Urinary Catheter: Yes (suprapubic catheter) Assessment to: Continue Soto insert reason: Obstruction/Retention Date of Insertion: Apr 21, 2016 Vascular Central Line Catheter: No A/P Assessment and Plan GI bleed with presenting of Upper GI bleed, patient with intermittent rectal bleeding: Resolved Hemoglobin continues to remain stable GI was following and reevaluated on 05/04/16 Presumed hemorrhoids, continue Anusol HC for 2 weeks Continue PPI. Protein calorie malnutrition: Improving Consulted dietitian who indicated that patient may be converted to bolus feeding Jevity 1.5, 6 cans per day. 1.5 cans that 0800 and 2000, 1 can at 1100, 1400, 1700 Prealbumin level 24 Dementia with inappropriate behavior, mood disorder improved patient more somnolent today, likely secondary to medication use, patient is afebrile, no tachycardia, no signs of infection. 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 Continue monitor blood pressure Continue Midodrine. Elevated BUN, stable Continue fluid flushes via PEG tube to avoid dehydration. Stage I decubitus ulcer, sacral skin tear: Continue wound care. Parkinson's disease: Patient has dementia and resting tremor. Chronic, stable. Weakness: Continue physical therapy Nursing staff to get patient up out of bed at least 3 times daily Palliative care evaluation According to palliative care notes. Family wishes aggressive management, they are expecting him to improve, go to a rehabilitation facility and then improve enough to go home. They are deferring hospice. DVT prophylaxis: SCDs. Avoid chemical prophylaxis secondary to GI bleed. Discharge Planning Discharge planning to [facility] facility once arrangements made by case management 05/06/16 1415 PATIENT CONT TO BE A HARD PALCEMENT AND GETTING ACCEPTING SNF. REACHED BACK OUT TO A [facility] FACILITY TO RE-EVAL THEY STATED THEY WILL. RE-FAXED CLINICAL FOR EVALUATION CECILE JOAQUIN/BURAK/DORIS CHARGE [employer] May 12, 2016 10:09
[2016-05-12 20:00] VITALS: BP 102/68; PULSE 74; RESP 16; TEMP 97.2; O2SAT 95
[2016-05-12] MEDS: MIRTAZAPINE 15 MG TAB PEG SCH (20:06)
[2016-05-13] MEDS: MIDODRINE 5 MG TAB PO SCH ×3 (05:59→16:30)
[2016-05-13] MEDS: ALLOPURINOL 100 MG TAB PEG SCH (07:52)
[2016-05-13] MEDS: LANSOPRAZOLE SOLUTAB 30 MG TAB PEG SCH (07:52)
[2016-05-13] MEDS: HYDROCORTISONE ACETATE 25 MG SUPP RECTAL SCH ×2 (07:53→20:47)
[2016-05-13 08:00] VITALS: BP 108/68; PULSE 73; RESP 20; TEMP 98.2; O2SAT 95
--- NOTE | 2016-05-13 11:49 | HHI.PR ---
Subjective Remarks Patient seen and examined today. Patient denies any new complaints. No change clinical status. Objective Vitals Vital Signs Date Time Temp Pulse Resp B/P Pulse Ox O2 Delivery O2 Flow Rate FiO2 05/13/16 08:00 98.2 73 20 108/68 95 05/12/16 20:00 97.2 74 16 102/68 95 I/O 05/12/16 05/12/16 05/12/16 05/13/16 05/13/16 05/13/16 07:00 15:00 23:00 07:00 15:00 23:00 Intake Total 560 ml 0 ml 600 ml 120 ml Output Total 350 ml 750 ml Balance 560 ml -350 ml 600 ml -630 ml Intake Oral 0 ml Tube Feeding 360 ml 360 ml Tube Irrigant 240 ml 120 ml Other 200 ml Output Urine Total 350 ml 750 ml # Bowel Movements 1 2 1 3 Objective Remarks GENERAL: Well-developed, well-nourished, in no acute distress. Patient awake and alert HEENT: Head is normocephalic without any lesions or masses noted. Facial features are symmetric. Eyes: Extraocular muscles are intact. Conjunctivae were clear. NECK: Trachea midline no deviation. CARDIAC: Regular rhythm, regular rate. S1/S2 are heard. No murmurs gallops or rubs. LUNGS: Clear to auscultation bilaterally. No wheeze, rhonchi or rales. No use of accessory muscles on inspiration or expiration. ABDOMEN: Soft, nontender. Nondistended. Bowel sounds heard in all 4 quadrants. No organomegaly or masses. Negative rebound, negative guarding, suprapubic catheter in place, PEG tube noted EXTREMITIES: No edema, pulses are equal bilaterally. No cyanosis or clubbing NEUROLOGY: Mood and affect appear appropriate. Cranial nerves II through XII grossly intact. Moving all extremities Procedures None Urinary Catheter: Yes Assessment to: Continue Soto insert reason: Obstruction/Retention Date of Insertion: Apr 21, 2016 Vascular Central Line Catheter: No A/P Assessment and Plan GI bleed with presenting of Upper GI bleed, patient with intermittent rectal bleeding: Resolved Hemoglobin continues to remain stable GI was following and reevaluated on 05/04/16 Presumed hemorrhoids, continue Anusol HC for 2 weeks Continue PPI. Protein calorie malnutrition: Improving Consulted dietitian who indicated that patient may be converted to bolus feeding Jevity 1.5, 6 cans per day. 1.5 cans that 0800 and 2000, 1 can at 1100, 1400, 1700 Prealbumin level 24 Dementia with inappropriate behavior, mood disorder improved patient more somnolent today, likely secondary to medication use, patient is afebrile, no tachycardia, no signs of infection. 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 Continue monitor blood pressure Continue Midodrine. Elevated BUN, stable Continue fluid flushes via PEG tube to avoid dehydration. Stage I decubitus ulcer, sacral skin tear: Continue wound care. Parkinson's disease: Patient has dementia and resting tremor. Chronic, stable. Weakness: Continue physical therapy Nursing staff to get patient up out of bed at least 3 times daily Palliative care evaluation According to palliative care notes. Family wishes aggressive management, they are expecting him to improve, go to a rehabilitation facility and then improve enough to go home. They are deferring hospice. DVT prophylaxis: SCDs. Avoid chemical prophylaxis secondary to GI bleed. Discharge Planning Discharge planning to half-way facility once arrangements made by case management 05/06/16 1415 PATIENT CONT TO BE A HARD PALCEMENT AND GETTING ACCEPTING SNF. REACHED BACK OUT TO A [facility] FACILITY TO RE-EVAL THEY STATED THEY WILL. RE-FAXED CLINICAL FOR EVALUATION CECILE JOAQUIN/BURAK/DORIS CHARGE [employer] Walker May 13, 2016 11:49
[2016-05-13] MEDS: ENOXAPARIN SODIUM 40 MG/0.4 ML SYRINGE SQ SCH (14:06)
[2016-05-13] MEDS: MIRTAZAPINE 15 MG TAB PEG SCH (20:47)
[2016-05-14] MEDS: MIDODRINE 5 MG TAB PO SCH ×3 (06:03→16:37)
[2016-05-14 08:43] VITALS: BP_SYST 109; BP_SYST 119; BP_DIAS 74; BP_DIAS 79; PULSE 117; RESP 18; TEMP 97.9; O2SAT 94
--- NOTE | 2016-05-14 09:06 | HHI.PR ---
Subjective Remarks No acute complaints. No change in clinical status. Objective Vitals Vital Signs Date Time Temp Pulse Resp B/P Pulse Ox O2 Delivery O2 Flow Rate FiO2 05/14/16 08:43 97.9 117 18 109/74 94 I/O 05/13/16 05/13/16 05/13/16 05/14/16 05/14/16 05/14/16 07:00 15:00 23:00 07:00 15:00 23:00 Intake Total 120 ml 1080 ml 600 ml Output Total 750 ml 550 ml 300 ml 500 ml Balance -630 ml 530 ml 300 ml -500 ml Intake Oral 0 ml Tube Feeding 1080 ml 360 ml Tube Irrigant 120 ml 240 ml Output Urine Total 750 ml 550 ml 300 ml 500 ml # Bowel Movements 3 1 1 2 Objective Remarks GENERAL: Well developed male in no apparent distress. CARDIOVASCULAR: Regular rate and rhythm. RESPIRATORY: Limited anterior exam. No accessory muscle use. Clear to auscultation bilaterally. GASTROINTESTINAL: Normoactive bowel sounds. Abdomen soft, non-tender, non- distended. NEUROLOGICAL: Awake and alert. Nods his head to questions. Hand tremors. Follows commands. PSYCHIATRIC: Normal mood and affect. Procedures None Urinary Catheter: Yes Assessment to: Continue Soto insert reason: Prolonged Immobilization Date of Insertion: Apr 21, 2016 Vascular Central Line Catheter: No A/P Problem List: (1) GI bleed ICD Code: K92.2 Status: Acute (2) Essential tremor ICD Code: G25.0 Status: Chronic (3) Dementia ICD Code: F03.90 Status: Chronic (4) Parkinson disease ICD Code: G20 Status: Chronic (5) Hypotension ICD Code: I95.9 Status: Chronic (6) Loose stools ICD Code: R19.5 Status: Resolved (7) Chalazion of right upper eyelid ICD Code: H00.11 Status: Acute Assessment and Plan Upper GI bleeding: Resolved with recurrent rectal bleeding. Hemoglobin stable. GI reevaluated patient on 05/04. Presumed hemorrhoids, continue Anusol HC for total of 2 weeks. Continue PPI. Protein calorie malnutrition: Improving Consulted dietitian who indicated that patient may be converted to bolus feeding Jevity 1.5 w/ bolus 1.5 cans (360ml) @ 0800 and 2000 and 1 can(240ml) @ 1100, 1400 and 1700. Free Water Flush 100ml before and after each bolus feeding Prealbumin level 23 Patient desired to eat and speech therapy advised puree diet, thin liquids, but patient has not been eating anything. Dementia with inappropriate behavior, mood disorder improved Patient had inappropriate behavior which is resolved now. Patient has been hospitalized for similar events in 2015 Consulted psychiatry for further evaluation, who indicated that this is a frontal lobe dementia Risperdal 0.25 mg during the day, Risperdal 0.5 mg at night. Risperdal was discontinued per POA request. Continue Remeron Psychiatry was reconsulted and is ok with discontinuation of Risperdal, but recommends Haldol 1-2 mg q12 prn for aggressive behavior and agitation. I have not witnessed any behavior like this recently. Probable seborrheic dermatitis: Flaky skin to the face and neck. -Improved s/p one time dose of Ketoconazole 2% shampoo. -Monitor need for further treatments. May need to order once per week. Chalazion: Persistent nodule R upper eyelid. There is no evidence of preseptal cellulitis. -Warm compresses were applied but it was greater than 2 weeks without significant improvement. -Ophthalmology was consulted and evaluated patient on 03/26. S/p warm compresses and Tobradex 4 times a day OD x 2 weeks. Patient was intermittently compliant with eyedrops. -No worsening. Follow-up outpatient. Hypotension: Blood pressure labile. Continue Midodrine. Patient on max dose. Increase free water flushes as needed. Elevated BUN, stable Continue fluid flushes via PEG tube to avoid dehydration. Stage I decubitus ulcer, sacral skin tear: Continue wound care. Mild obstructive uropathy: Resolved. Appreciate urology recommendations. Suprapubic catheter in place, last changed 04/21/16. To be changed monthly, Abdominal pelvis CT 03/06/16 shows resolution of right sided hydronephrosis. Urinary tract infection: Resolved Urine culture positive for Proteus mirabilis and GBS. Patient has completed course of antibiotics. Abdominal pelvis CT 03/06 shows decompressed bladder with circumferential bladder wall thickening and intraluminal air possibly indicating cystitis, but the patient has been afebrile with normal WBC count. No treatment indicated. Weakness: Continue physical therapy Nursing staff to get patient up out of bed at least 3 times daily Palliative care evaluation According to palliative care notes. Family wishes aggressive management, they are expecting him to improve, go to a rehabilitation facility and then improve enough to go home. They are deferring hospice. DVT prophylaxis: SCDs. Avoid chemical prophylaxis secondary to GI bleed. Discharge Planning [facility] to evaluate for placement. Madeline Ortez May 14, 2016 09:06 Madeline Ortez May 14, 2016 09:06
[2016-05-14] MEDS: ALLOPURINOL 100 MG TAB PEG SCH (10:07)
[2016-05-14] MEDS: HYDROCORTISONE ACETATE 25 MG SUPP RECTAL SCH ×2 (10:07→20:23)
[2016-05-14] MEDS: LANSOPRAZOLE SOLUTAB 30 MG TAB PEG SCH (10:07)
[2016-05-14] MEDS: ENOXAPARIN SODIUM 40 MG/0.4 ML SYRINGE SQ SCH (13:12)
[2016-05-14 20:00] VITALS: BP 96/68; PULSE 77; RESP 16; TEMP 98; O2SAT 96
[2016-05-14] MEDS: MIRTAZAPINE 15 MG TAB PEG SCH (20:23)
[2016-05-15] MEDS: MIDODRINE 5 MG TAB PO SCH ×3 (06:02→17:39)
[2016-05-15 08:00] VITALS: BP 130/91; PULSE 68; RESP 19; TEMP 98; O2SAT 96
[2016-05-15] MEDS: ALLOPURINOL 100 MG TAB PEG SCH (08:20)
[2016-05-15] MEDS: LANSOPRAZOLE SOLUTAB 30 MG TAB PEG SCH (08:20)
[2016-05-15] MEDS: HYDROCORTISONE ACETATE 25 MG SUPP RECTAL SCH ×2 (08:20→20:52)
[2016-05-15] MEDS: ENOXAPARIN SODIUM 40 MG/0.4 ML SYRINGE SQ SCH (12:35)
--- NOTE | 2016-05-15 14:00 | HHI.PR ---
Subjective Remarks Patient seen and evaluated today in follow-up for GI bleed which is resolved as well as prolonged weakness and discharge planning. No events overnight. Care plan discussed with Rico RN Objective Vitals Vital Signs Date Time Temp Pulse Resp B/P Pulse Ox O2 Delivery O2 Flow Rate FiO2 05/15/16 08:00 98.0 68 19 130/91 96 05/14/16 20:00 98.0 77 16 96/68 96 I/O 05/14/16 05/14/16 05/14/16 05/15/16 05/15/16 05/15/16 07:00 15:00 23:00 07:00 15:00 23:00 Intake Total 600 ml 700 ml Output Total 500 ml 550 ml 550 ml Balance -500 ml 600 ml 150 ml -550 ml Tube Feeding 600 ml 600 ml Tube Irrigant 100 ml Output Urine Total 500 ml 550 ml 550 ml # Voids 1 # Bowel Movements 2 0 1 Objective Remarks GENERAL: This is a frail and ill-appearing gentleman CARDIOVASCULAR: Regular rate and rhythm without murmurs, gallops, or rubs. RESPIRATORY: Clear to auscultation. Breath sounds equal bilaterally. No wheezes , rales, or rhonchi. GASTROINTESTINAL: PEG tube Abdomen soft, non-tender, nondistended. Normal active bowel sounds MUSCULOSKELETAL: Extremities without clubbing, cyanosis, or edema. NEURO: Alert & Oriented x4 to person, place, time, situation. Moves all ext x4 Procedures None Date of Insertion: Apr 21, 2016 A/P Problem List: (1) Weakness ICD Code: R53.1 Status: Acute Plan: Patient continues with physical therapy Discharge Planning Patient will need long-term care. Case management aware of barriers to discharge Aster Chau MD May 15, 2016 14:00
[2016-05-15 20:00] VITALS: BP 108/70; PULSE 67; RESP 20; TEMP 97.8; O2SAT 96
[2016-05-15] MEDS: MIRTAZAPINE 15 MG TAB PEG SCH (20:52)
[2016-05-16] MEDS: MIDODRINE 5 MG TAB PO SCH ×3 (06:25→16:37)
[2016-05-16 08:00] VITALS: BP 119/80; PULSE 77; RESP 20; TEMP 98.2; O2SAT 94
[2016-05-16] MEDS: HYDROCORTISONE ACETATE 25 MG SUPP RECTAL SCH ×2 (08:47→20:31)
[2016-05-16] MEDS: ALLOPURINOL 100 MG TAB PEG SCH (08:47)
[2016-05-16] MEDS: LANSOPRAZOLE SOLUTAB 30 MG TAB PEG SCH (08:47)
--- NOTE | 2016-05-16 08:58 | HHI.PR ---
Subjective Remarks Follow-up for dementia, malnutrition. No acute complaints. Objective Vitals Vital Signs Date Time Temp Pulse Resp B/P Pulse Ox O2 Delivery O2 Flow Rate FiO2 05/15/16 20:00 97.8 67 20 108/70 96 I/O 05/15/16 05/15/16 05/15/16 05/16/16 05/16/16 05/16/16 07:00 15:00 23:00 07:00 15:00 23:00 Intake Total 240 ml 560 ml 180 ml Output Total 550 ml 500 ml 800 ml Balance -550 ml 240 ml 60 ml -620 ml Intake Oral 0 ml 0 ml Tube Feeding 240 ml 360 ml Tube Irrigant 200 ml 180 ml Output Urine Total 550 ml 500 ml 800 ml # Bowel Movements 1 2 0 Objective Remarks GENERAL: Well developed male in no apparent distress sleeping when I enter the room. CARDIOVASCULAR: Regular rate and rhythm. RESPIRATORY: Limited anterior exam. No accessory muscle use. Clear to auscultation bilaterally. GASTROINTESTINAL: Abdomen soft, non-tender, non-distended. NEUROLOGICAL: Awake and alert. Nods his head to questions. Hand tremors. PSYCHIATRIC: Normal mood and affect. Procedures None Urinary Catheter: No Date of Insertion: Apr 21, 2016 Vascular Central Line Catheter: No A/P Problem List: (1) Weakness ICD Code: R53.1 Status: Acute Assessment and Plan Upper GI bleeding: Resolved with recurrent rectal bleeding. Hemoglobin stable. GI reevaluated patient on 05/04. Presumed hemorrhoids, continue Anusol HC for total of 2 weeks. Continue PPI. Protein calorie malnutrition: Improving Consulted dietitian who indicated that patient may be converted to bolus feeding Jevity 1.5 w/ bolus 1.5 cans (360ml) @ 0800 and 2000 and 1 can(240ml) @ 1100, 1400 and 1700. Free Water Flush 100ml before and after each bolus feeding Prealbumin level 23 Patient desired to eat and speech therapy advised puree diet, thin liquids, but patient has not been eating anything. Dementia with inappropriate behavior, mood disorder improved Patient had inappropriate behavior which is resolved now. Patient has been hospitalized for similar events in 2015 Consulted psychiatry for further evaluation, who indicated that this is a frontal lobe dementia Risperdal 0.25 mg during the day, Risperdal 0.5 mg at night. Risperdal was discontinued per POA request. Continue Remeron Psychiatry was reconsulted and is ok with discontinuation of Risperdal, but recommends Haldol 1-2 mg q12 prn for aggressive behavior and agitation. I have not witnessed any behavior like this. Probable seborrheic dermatitis: Flaky skin to the face and neck. -Improved s/p one time dose of Ketoconazole 2% shampoo. -Monitor need for further treatments. Chalazion: Persistent nodule R upper eyelid. There is no evidence of preseptal cellulitis. -Warm compresses were applied but it was greater than 2 weeks without significant improvement. -Ophthalmology was consulted and evaluated patient on 03/26. S/p warm compresses and Tobradex 4 times a day OD x 2 weeks. Patient was intermittently compliant with eyedrops. -No worsening. Follow-up outpatient. Hypotension: Blood pressure labile. Continue Midodrine. Patient on max dose. Increase free water flushes as needed. Elevated BUN, stable Continue fluid flushes via PEG tube to avoid dehydration. Stage I decubitus ulcer, sacral skin tear: Continue wound care. Mild obstructive uropathy: Resolved. Appreciate urology recommendations. Suprapubic catheter in place, last changed 04/21/16. To be changed monthly, next time on 05/19/16. Abdominal pelvis CT 03/06/16 shows resolution of right sided hydronephrosis. Urinary tract infection: Resolved Urine culture positive for Proteus mirabilis and GBS. Patient has completed course of antibiotics. Abdominal pelvis CT 03/06 shows decompressed bladder with circumferential bladder wall thickening and intraluminal air possibly indicating cystitis, but the patient has been afebrile with normal WBC count. No treatment indicated. Weakness: Continue physical therapy Nursing staff to get patient up out of bed at least 3 times daily Palliative care evaluation According to palliative care notes. Family wishes aggressive management, they are expecting him to improve, go to a rehabilitation facility and then improve enough to go home. They are declining hospice. DVT prophylaxis: SCDs. Avoid chemical prophylaxis secondary to GI bleed. Discharge Planning [facility] declined patient. CM continuing to follow for placement. Madeline Ortez May 16, 2016 08:58
[2016-05-16] MEDS: ENOXAPARIN SODIUM 40 MG/0.4 ML SYRINGE SQ SCH (12:12)
[2016-05-16 20:00] VITALS: BP 95/68; PULSE 90; RESP 18; TEMP 95.7; O2SAT 93
[2016-05-16] MEDS: MIRTAZAPINE 15 MG TAB PEG SCH (20:31)
[2016-05-17] MEDS: MIDODRINE 5 MG TAB PO SCH ×3 (06:14→16:44)
[2016-05-17 08:00] VITALS: BP 114/81; PULSE 68; RESP 20; TEMP 98.4; O2SAT 98
[2016-05-17] MEDS: LANSOPRAZOLE SOLUTAB 30 MG TAB PEG SCH (08:09)
[2016-05-17] MEDS: HYDROCORTISONE ACETATE 25 MG SUPP RECTAL SCH ×2 (08:09→21:34)
[2016-05-17] MEDS: ALLOPURINOL 100 MG TAB PEG SCH (08:09)
--- NOTE | 2016-05-17 12:12 | HHI.PR ---
Subjective Remarks No acute complaints. No change in clinical status. Objective Vitals Vital Signs Date Time Temp Pulse Resp B/P Pulse Ox O2 Delivery O2 Flow Rate FiO2 05/17/16 08:00 98.4 68 20 114/81 98 05/16/16 20:00 95.7 90 18 95/68 93 I/O 05/16/16 05/16/16 05/16/16 05/17/16 05/17/16 05/17/16 07:00 15:00 23:00 07:00 15:00 23:00 Intake Total 180 ml 120 ml 1760 ml 180 ml Output Total 800 ml 350 ml 1525 ml Balance -620 ml -230 ml 1760 ml -1345 ml Intake Oral 0 ml 120 ml Tube Feeding 1400 ml Tube Irrigant 180 ml 360 ml 180 ml Output Urine Total 800 ml 350 ml 1525 ml # Bowel Movements 0 2 1 Objective Remarks GENERAL: Well developed male in no apparent distress. CARDIOVASCULAR: Regular rate and rhythm. RESPIRATORY: No accessory muscle use. Clear to auscultation bilaterally. GASTROINTESTINAL: Normoactive bowel sounds. Abdomen soft, non-tender, non- distended. NEUROLOGICAL: Sleeping but arouses to voice. Awake and alert. Nods his head to questions. Hand tremors. PSYCHIATRIC: Normal mood and affect. Procedures None Urinary Catheter: Yes Assessment to: Continue Soto insert reason: Prolonged Immobilization Date of Insertion: Apr 21, 2016 Vascular Central Line Catheter: No A/P Problem List: (1) Weakness ICD Code: R53.1 Status: Acute Assessment and Plan Upper GI bleeding: Resolved with recurrent rectal bleeding. Hemoglobin stable. GI reevaluated patient on 05/04. Presumed hemorrhoids, continue Anusol HC for total of 2 weeks. Continue PPI. Protein calorie malnutrition: Improving Consulted dietitian who indicated that patient may be converted to bolus feeding Jevity 1.5 w/ bolus 1.5 cans (360ml) @ 0800 and 2000 and 1 can(240ml) @ 1100, 1400 and 1700. Free Water Flush 100ml before and after each bolus feeding Prealbumin level 23 Patient desired to eat and speech therapy advised puree diet, thin liquids, but patient has not been eating anything. Dementia with inappropriate behavior, mood disorder improved Patient had inappropriate behavior which is resolved now. Patient has been hospitalized for similar events in 2015 Consulted psychiatry for further evaluation, who indicated that this is a frontal lobe dementia Risperdal 0.25 mg during the day, Risperdal 0.5 mg at night. Risperdal was discontinued per POA request. Continue Remeron Psychiatry was reconsulted and is ok with discontinuation of Risperdal, but recommends Haldol 1-2 mg q12 prn for aggressive behavior and agitation. I have not witnessed any behavior like this. Probable seborrheic dermatitis: Flaky skin to the face and neck. -Improved s/p one time dose of Ketoconazole 2% shampoo. -Monitor need for further treatments. Chalazion: Persistent nodule R upper eyelid. There is no evidence of preseptal cellulitis. -Warm compresses were applied but it was greater than 2 weeks without significant improvement. -Ophthalmology was consulted and evaluated patient on 03/26. S/p warm compresses and Tobradex 4 times a day OD x 2 weeks. Patient was intermittently compliant with eyedrops. -No worsening. Follow-up outpatient. Hypotension: Blood pressure labile. Continue Midodrine. Patient on max dose. Increase free water flushes as needed. Elevated BUN, stable Continue fluid flushes via PEG tube to avoid dehydration. Stage I decubitus ulcer, sacral skin tear: Continue wound care. Mild obstructive uropathy: Resolved. Appreciate urology recommendations. Suprapubic catheter in place, last changed 04/21/16. To be changed monthly, next time on 05/19/16. Abdominal pelvis CT 03/06/16 shows resolution of right sided hydronephrosis. Urinary tract infection: Resolved Urine culture positive for Proteus mirabilis and GBS. Patient has completed course of antibiotics. Abdominal pelvis CT 03/06 shows decompressed bladder with circumferential bladder wall thickening and intraluminal air possibly indicating cystitis, but the patient has been afebrile with normal WBC count. No treatment indicated. Weakness: Continue physical therapy Nursing staff to get patient up out of bed at least 3 times daily Palliative care evaluation According to palliative care notes family wishes aggressive management, they are expecting him to improve, go to a rehabilitation facility and then improve enough to go home. They are declining hospice. DVT prophylaxis: SCDs. Avoid chemical prophylaxis secondary to GI bleed. Discharge Planning [facility] declined patient. CM continuing to follow for placement. Madeline Ortez May 17, 2016 12:12
[2016-05-17] MEDS: ENOXAPARIN SODIUM 40 MG/0.4 ML SYRINGE SQ SCH (12:16)
[2016-05-17 20:00] VITALS: BP 104/69; PULSE 79; RESP 16; TEMP 96.3; O2SAT 96
[2016-05-17] MEDS: MIRTAZAPINE 15 MG TAB PEG SCH (21:34)
[2016-05-18] MEDS: MIDODRINE 5 MG TAB PO SCH ×3 (05:42→16:09)
[2016-05-18 08:00] VITALS: BP 95/68; PULSE 78; RESP 17; TEMP 97.9; O2SAT 95
[2016-05-18] MEDS: ALLOPURINOL 100 MG TAB PEG SCH (08:34)
[2016-05-18] MEDS: LANSOPRAZOLE SOLUTAB 30 MG TAB PEG SCH (08:34)
[2016-05-18] MEDS: HYDROCORTISONE ACETATE 25 MG SUPP RECTAL SCH ×2 (08:34→19:38)
--- NOTE | 2016-05-18 09:52 | HHI.PR ---
Subjective Remarks No acute complaints. No change in clinical status. Objective Vitals Vital Signs Date Time Temp Pulse Resp B/P Pulse Ox O2 Delivery O2 Flow Rate FiO2 05/18/16 08:00 97.9 78 17 95/68 95 05/17/16 20:00 96.3 79 16 104/69 96 I/O 05/17/16 05/17/16 05/17/16 05/18/16 05/18/16 05/18/16 07:00 15:00 23:00 07:00 15:00 23:00 Intake Total 180 ml 1930 ml 480 ml Output Total 1525 ml 400 ml 200 ml 250 ml Balance -1345 ml 1530 ml 280 ml -250 ml Intake Oral 50 ml IV Total 0 ml Tube Feeding 1080 ml 360 ml Tube Irrigant 180 ml Other 800 ml 120 ml Output Urine Total 1525 ml 400 ml 200 ml 250 ml # Bowel Movements 1 3 1 3 Objective Remarks GENERAL: Well developed male in no apparent distress. CARDIOVASCULAR: Regular rate and rhythm. RESPIRATORY: No accessory muscle use. Clear to auscultation bilaterally. GASTROINTESTINAL: Abdomen soft, non-tender, non-distended. NEUROLOGICAL: Awake and alert. Nods his head to questions. PSYCHIATRIC: Normal mood and affect. Procedures None Urinary Catheter: No Date of Insertion: Apr 21, 2016 Vascular Central Line Catheter: No A/P Problem List: (1) Weakness ICD Code: R53.1 Status: Acute Assessment and Plan Upper GI bleeding: Resolved with recurrent rectal bleeding. Hemoglobin stable. GI reevaluated patient on 05/04. Presumed hemorrhoids, continue Anusol HC for total of 2 weeks. Continue PPI. Protein calorie malnutrition: Improving Consulted dietitian who indicated that patient may be converted to bolus feeding Jevity 1.5 w/ bolus 1.5 cans (360ml) @ 0800 and 2000 and 1 can(240ml) @ 1100, 1400 and 1700. Free Water Flush 100ml before and after each bolus feeding Prealbumin level 23 Patient desired to eat and speech therapy advised puree diet, thin liquids, but patient has not been eating anything. Dementia with inappropriate behavior, mood disorder improved Patient had inappropriate behavior which is resolved now. He has been very appropriate for a long time now. Patient has been hospitalized for similar events in 2015 Consulted psychiatry for further evaluation, who indicated that this is a frontal lobe dementia Risperdal 0.25 mg during the day, Risperdal 0.5 mg at night. Risperdal was discontinued per POA request. Continue Remeron Psychiatry was reconsulted and is ok with discontinuation of Risperdal, but recommends Haldol 1-2 mg q12 prn for aggressive behavior and agitation. I have not witnessed any behavior like this. Probable seborrheic dermatitis: Flaky skin to the face and neck. -Improved s/p one time dose of Ketoconazole 2% shampoo. -Monitor need for further treatments. Chalazion: Persistent nodule R upper eyelid. There is no evidence of preseptal cellulitis. -Warm compresses were applied but it was greater than 2 weeks without significant improvement. -Ophthalmology was consulted and evaluated patient on 03/26. S/p warm compresses and Tobradex 4 times a day OD x 2 weeks. Patient was intermittently compliant with eyedrops. -No worsening. Follow-up outpatient. Hypotension: Blood pressure labile. Continue Midodrine. Patient on max dose. Increase free water flushes as needed. Elevated BUN, stable Continue fluid flushes via PEG tube to avoid dehydration. Stage I decubitus ulcer, sacral skin tear: Continue wound care. Mild obstructive uropathy: Resolved. Appreciate urology recommendations. Suprapubic catheter in place, last changed 04/21/16. To be changed monthly, next time on 05/19/16. Abdominal pelvis CT 03/06/16 shows resolution of right sided hydronephrosis. Urinary tract infection: Resolved Urine culture positive for Proteus mirabilis and GBS. Patient has completed course of antibiotics. Abdominal pelvis CT 03/06 shows decompressed bladder with circumferential bladder wall thickening and intraluminal air possibly indicating cystitis, but the patient has been afebrile with normal WBC count. No treatment indicated. Weakness: Continue physical therapy Nursing staff to get patient up out of bed at least 3 times daily Palliative care evaluation According to palliative care notes family wishes aggressive management, they are expecting him to improve, go to a rehabilitation facility and then improve enough to go home. They are declining hospice. DVT prophylaxis: SCDs. Avoid chemical prophylaxis secondary to GI bleed. Discharge Planning [facility] declined patient. CM continuing to follow for placement. Madeline Ortez May 18, 2016 09:52
[2016-05-18] MEDS: ENOXAPARIN SODIUM 40 MG/0.4 ML SYRINGE SQ SCH (14:04)
[2016-05-18] MEDS: MIRTAZAPINE 15 MG TAB PEG SCH (19:38)
[2016-05-18 21:07] VITALS: BP 100/63; PULSE 76; RESP 16; TEMP 96.1; O2SAT 96
[2016-05-19] MEDS: MIDODRINE 5 MG TAB PO SCH ×3 (05:37→16:59)
[2016-05-19 08:00] VITALS: BP 117/70; PULSE 72; RESP 17; TEMP 98.1; O2SAT 93
[2016-05-19] MEDS: HYDROCORTISONE ACETATE 25 MG SUPP RECTAL SCH ×2 (08:40→20:33)
[2016-05-19] MEDS: LANSOPRAZOLE SOLUTAB 30 MG TAB PEG SCH (08:41)
[2016-05-19] MEDS: ALLOPURINOL 100 MG TAB PEG SCH (08:41)
[2016-05-19] MEDS: ENOXAPARIN SODIUM 40 MG/0.4 ML SYRINGE SQ SCH (12:11)
--- NOTE | 2016-05-19 17:14 | HHI.PR ---
Subjective Remarks Patient seen and evaluated today in Hospital day 120. Denies any complaints. Still eating minimally. Tolerating tube feeds Catheter changed Objective Vitals Vital Signs Date Time Temp Pulse Resp B/P Pulse Ox O2 Delivery O2 Flow Rate FiO2 05/19/16 08:00 98.1 72 17 117/70 93 05/18/16 21:07 96.1 76 16 100/63 96 I/O 05/18/16 05/18/16 05/18/16 05/19/16 05/19/16 05/19/16 07:00 15:00 23:00 07:00 15:00 23:00 Intake Total 1440 ml 460 ml 1700 ml Output Total 250 ml 350 ml 450 ml 250 ml 325 ml Balance -250 ml 1090 ml 10 ml 1450 ml -325 ml IV Total 0 ml Tube Feeding 1440 ml 360 ml 1100 ml Other 100 ml 600 ml Output Urine Total 250 ml 350 ml 450 ml 250 ml 325 ml # Bowel Movements 3 2 3 3 3 Objective Remarks GENERAL: This is a frail and ill-appearing gentleman CARDIOVASCULAR: Regular rate and rhythm without murmurs, gallops, or rubs. RESPIRATORY: Clear to auscultation. Breath sounds equal bilaterally. No wheezes , rales, or rhonchi. GASTROINTESTINAL: victor/PEG tube Abdomen soft, non-tender, nondistended. Normal active bowel sounds MUSCULOSKELETAL: Extremities without clubbing, cyanosis, or edema. NEURO: Alert & Oriented x4 to person, place, time, situation. Moves all ext x4 Procedures None Date of Insertion: Apr 21, 2016 A/P Problem List: (1) Weakness ICD Code: R53.1 Status: Acute Discharge Planning Patient will need long-term care. Case management aware of barriers to discharge Catheter changed 05/13, per RN (not documented) will follow up for documentation) Aster Chau MD May 19, 2016 17:14
[2016-05-19] MEDS: MIRTAZAPINE 15 MG TAB PEG SCH (20:33)
[2016-05-19 21:16] VITALS: BP 111/72; PULSE 67; RESP 18; TEMP 96.9; O2SAT 96
[2016-05-20] MEDS: MIDODRINE 5 MG TAB PO SCH ×3 (06:30→16:44)
[2016-05-20 07:54] VITALS: BP 99/65; PULSE 78; RESP 18; TEMP 96.3; O2SAT 97
[2016-05-20 09:08] VITALS: BP 99/65; PULSE 78; RESP 18; TEMP 96.3; O2SAT 97
[2016-05-20] MEDS: LANSOPRAZOLE SOLUTAB 30 MG TAB PEG SCH (09:40)
[2016-05-20] MEDS: ALLOPURINOL 100 MG TAB PEG SCH (09:40)
[2016-05-20] MEDS: HYDROCORTISONE ACETATE 25 MG SUPP RECTAL SCH ×2 (09:40→20:44)
--- NOTE | 2016-05-20 10:05 | HHI.PR ---
Subjective Remarks No acute complaints. No change in clinical status. Objective Vitals Vital Signs Date Time Temp Pulse Resp B/P Pulse Ox O2 Delivery O2 Flow Rate FiO2 05/20/16 09:08 96.3 78 18 99/65 97 05/20/16 07:54 96.3 78 18 99/65 97 05/19/16 21:16 96.9 67 18 111/72 96 I/O 05/19/16 05/19/16 05/19/16 05/20/16 05/20/16 05/20/16 07:00 15:00 23:00 07:00 15:00 23:00 Intake Total 1700 ml 560 ml 180 ml Output Total 250 ml 625 ml 300 ml Balance 1450 ml -65 ml -120 ml Tube Feeding 1100 ml 360 ml Tube Irrigant 200 ml 180 ml Other 600 ml Output Urine Total 250 ml 625 ml 300 ml # Voids 3 # Bowel Movements 3 5 Objective Remarks GENERAL: Well developed male in no apparent distress. CARDIOVASCULAR: Regular rate and rhythm. RESPIRATORY: No accessory muscle use. Clear to auscultation bilaterally. GASTROINTESTINAL: Abdomen soft, non-tender, non-distended. NEUROLOGICAL: Awake and alert. Nods his head to questions. Tremor L hand. PSYCHIATRIC: Normal mood and affect. Procedures None Urinary Catheter: Yes Assessment to: Continue Soto insert reason: Prolonged Immobilization Date of Insertion: Apr 21, 2016 Vascular Central Line Catheter: No A/P Problem List: (1) Weakness ICD Code: R53.1 Status: Acute Assessment and Plan Upper GI bleeding: Resolved with recurrent rectal bleeding. Hemoglobin stable. GI reevaluated patient on 05/04. Presumed hemorrhoids, continue Anusol HC for total of 2 weeks. Continue PPI. Protein calorie malnutrition: Improving Consulted dietitian who indicated that patient may be converted to bolus feeding Jevity 1.5 w/ bolus 1.5 cans (360ml) @ 0800 and 2000 and 1 can(240ml) @ 1100, 1400 and 1700. Free Water Flush 100ml before and after each bolus feeding Prealbumin level 23 Patient desired to eat and speech therapy advised puree diet, thin liquids, but patient has not been eating anything. Dementia with inappropriate behavior, mood disorder improved Patient had inappropriate behavior which is resolved now. He has been very appropriate for a long time now. Patient has been hospitalized for similar events in 2015 Consulted psychiatry for further evaluation, who indicated that this is a frontal lobe dementia Risperdal 0.25 mg during the day, Risperdal 0.5 mg at night. Risperdal was discontinued per POA request. Continue Remeron Psychiatry was reconsulted and is ok with discontinuation of Risperdal, but recommends Haldol 1-2 mg q12 prn for aggressive behavior and agitation. I have not witnessed any behavior like this. Probable seborrheic dermatitis: Flaky skin to the face and neck. -Improved s/p one time dose of Ketoconazole 2% shampoo. -Monitor need for further treatments. Chalazion: Persistent nodule R upper eyelid. There is no evidence of preseptal cellulitis. -Warm compresses were applied but it was greater than 2 weeks without significant improvement. -Ophthalmology was consulted and evaluated patient on 03/26. S/p warm compresses and Tobradex 4 times a day OD x 2 weeks. Patient was intermittently compliant with eyedrops. -No worsening. Follow-up outpatient. Hypotension: Blood pressure labile. Continue Midodrine. Patient on max dose. Increase free water flushes as needed. Elevated BUN, stable Continue fluid flushes via PEG tube to avoid dehydration. Stage I decubitus ulcer, sacral skin tear: Continue wound care. Mild obstructive uropathy: Resolved. Appreciate urology recommendations. Suprapubic catheter in place last changed 05/19/16, confirmed with nurse although confusion in documentation. Change monthly. Abdominal pelvis CT 03/06/16 shows resolution of right sided hydronephrosis. Urinary tract infection: Resolved Urine culture positive for Proteus mirabilis and GBS. Patient has completed course of antibiotics. Abdominal pelvis CT 03/06 shows decompressed bladder with circumferential bladder wall thickening and intraluminal air possibly indicating cystitis, but the patient has been afebrile with normal WBC count. No treatment indicated. Weakness: Continue physical therapy Nursing staff to get patient up out of bed at least 3 times daily Palliative care evaluation According to palliative care notes family wishes aggressive management, they are expecting him to improve, go to a rehabilitation facility and then improve enough to go home. They are declining hospice. DVT prophylaxis: SCDs. Avoid chemical prophylaxis secondary to GI bleed. Discharge Planning [facility] declined patient. CM continuing to follow for placement. Madeline Ortez May 20, 2016 10:05
[2016-05-20] MEDS: ENOXAPARIN SODIUM 40 MG/0.4 ML SYRINGE SQ SCH (12:39)
[2016-05-20 20:00] VITALS: BP 110/70; PULSE 70; RESP 18; TEMP 98.2; O2SAT 95
[2016-05-20] MEDS: MIRTAZAPINE 15 MG TAB PEG SCH (20:44)
[2016-05-21] MEDS: MIDODRINE 5 MG TAB PO SCH ×3 (06:23→17:38)
[2016-05-21 08:00] VITALS: BP 106/68; PULSE 71; RESP 18; TEMP 96.9; O2SAT 96
[2016-05-21] MEDS: ALLOPURINOL 100 MG TAB PEG SCH (08:56)
[2016-05-21] MEDS: LANSOPRAZOLE SOLUTAB 30 MG TAB PEG SCH (08:56)
[2016-05-21] MEDS: HYDROCORTISONE ACETATE 25 MG SUPP RECTAL SCH ×2 (08:56→20:44)
--- NOTE | 2016-05-21 10:09 | HHI.PR ---
Subjective Remarks Patient sees examined today. Patient denies any new complaints. No change in clinical status. Objective Vitals Vital Signs Date Time Temp Pulse Resp B/P Pulse Ox O2 Delivery O2 Flow Rate FiO2 05/21/16 08:00 96.9 71 18 106/68 96 05/20/16 20:00 98.2 70 18 110/70 95 I/O 05/20/16 05/20/16 05/20/16 05/21/16 05/21/16 05/21/16 07:00 15:00 23:00 07:00 15:00 23:00 Intake Total 180 ml 1710 ml 250 ml Output Total 300 ml 425 ml 500 ml Balance -120 ml -425 ml 1710 ml -250 ml Intake Oral 50 ml 50 ml Tube Feeding 1460 ml Tube Irrigant 180 ml 200 ml 200 ml Output Urine Total 300 ml 425 ml 500 ml # Voids 3 2 # Bowel Movements 1 0 1 Objective Remarks GENERAL: Well-developed, well-nourished, in no acute distress. Patient awake and alert HEENT: Head is normocephalic without any lesions or masses noted. Facial features are symmetric. Eyes: Extraocular muscles are intact. Conjunctivae were clear. NECK: Trachea midline no deviation. CARDIAC: Regular rhythm, regular rate. S1/S2 are heard. No murmurs gallops or rubs. LUNGS: Clear to auscultation bilaterally. No wheeze, rhonchi or rales. No use of accessory muscles on inspiration or expiration. ABDOMEN: Soft, nontender. Nondistended. Bowel sounds heard in all 4 quadrants. No organomegaly or masses. Negative rebound, negative guarding, suprapubic catheter in place, PEG tube noted EXTREMITIES: No edema, pulses are equal bilaterally. No cyanosis or clubbing NEUROLOGY: Mood and affect appear appropriate. Cranial nerves II through XII grossly intact. Moving all extremities Procedures None Urinary Catheter: Yes (suprapubic catheter) Assessment to: Continue Soto insert reason: Obstruction/Retention Date of Insertion: Apr 21, 2016 Vascular Central Line Catheter: No A/P Assessment and Plan GI bleed with presenting of Upper GI bleed, patient with intermittent rectal bleeding: Resolved Hemoglobin continues to remain stable GI was following and reevaluated on 05/04/16 Presumed hemorrhoids, continue Anusol HC for 2 weeks Continue PPI. Protein calorie malnutrition: Improving Consulted dietitian who indicated that patient may be converted to bolus feeding Jevity 1.5, 6 cans per day. 1.5 cans that 0800 and 2000, 1 can at 1100, 1400, 1700 Prealbumin level 24 Dementia with inappropriate behavior, mood disorder improved patient more somnolent today, likely secondary to medication use, patient is afebrile, no tachycardia, no signs of infection. 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 Continue monitor blood pressure Continue Midodrine. Elevated BUN, stable Continue fluid flushes via PEG tube to avoid dehydration. Stage I decubitus ulcer, sacral skin tear: Continue wound care. Parkinson's disease: Patient has dementia and resting tremor. Chronic, stable. Weakness: Continue physical therapy Nursing staff to get patient up out of bed at least 3 times daily Palliative care evaluation According to palliative care notes. Family wishes aggressive management, they are expecting him to improve, go to a rehabilitation facility and then improve enough to go home. They are deferring hospice. DVT prophylaxis: SCDs. Avoid chemical prophylaxis secondary to GI bleed. Discharge Planning [facility] to [facility] once arrangements made by case management 05/14/16 1421 CHELSEY DECLINED THIS PATIENT WILL CONT TO LOOK FOR AN ACCEPTING FACILITY CECILE JOAQUIN LPN/CM/CHARGE Jaguar Walker May 21, 2016 10:09
[2016-05-21] MEDS: ENOXAPARIN SODIUM 40 MG/0.4 ML SYRINGE SQ SCH (14:16)
[2016-05-21 20:00] VITALS: BP 100/69; PULSE 81; RESP 20; TEMP 97; O2SAT 93
[2016-05-21] MEDS: MIRTAZAPINE 15 MG TAB PEG SCH (20:44)
[2016-05-22] MEDS: MIDODRINE 5 MG TAB PO SCH ×3 (06:47→17:10)
[2016-05-22 08:00] VITALS: BP 114/76; PULSE 81; RESP 18; TEMP 96.1; O2SAT 96
[2016-05-22] MEDS: LANSOPRAZOLE SOLUTAB 30 MG TAB PEG SCH (08:19)
[2016-05-22] MEDS: ALLOPURINOL 100 MG TAB PEG SCH (08:19)
[2016-05-22] MEDS: HYDROCORTISONE ACETATE 25 MG SUPP RECTAL SCH ×2 (08:19→20:56)
--- NOTE | 2016-05-22 08:41 | HHI.PR ---
Subjective Remarks Patient seen and examined today. Patient denies any new complaints. No change in clinical status. Awaiting case management discharge planning Objective Vitals Vital Signs Date Time Temp Pulse Resp B/P Pulse Ox O2 Delivery O2 Flow Rate FiO2 05/21/16 20:00 97.0 81 20 100/69 93 I/O 05/21/16 05/21/16 05/21/16 05/22/16 05/22/16 05/22/16 07:00 15:00 23:00 07:00 15:00 23:00 Intake Total 250 ml 75 ml 625 ml 210 ml Output Total 500 ml 550 ml 325 ml 300 ml Balance -250 ml -475 ml 300 ml -90 ml Intake Oral 50 ml 75 ml 65 ml 30 ml Tube Feeding 360 ml Tube Irrigant 200 ml 200 ml 180 ml Output Urine Total 500 ml 550 ml 325 ml 300 ml # Bowel Movements 1 2 2 2 Objective Remarks GENERAL: Well-developed, well-nourished, in no acute distress. Patient awake and alert HEENT: Head is normocephalic without any lesions or masses noted. Facial features are symmetric. Eyes: Extraocular muscles are intact. Conjunctivae were clear. NECK: Trachea midline no deviation. CARDIAC: Regular rhythm, regular rate. S1/S2 are heard. No murmurs gallops or rubs. LUNGS: Clear to auscultation bilaterally. No wheeze, rhonchi or rales. No use of accessory muscles on inspiration or expiration. ABDOMEN: Soft, nontender. Nondistended. Bowel sounds heard in all 4 quadrants. No organomegaly or masses. Negative rebound, negative guarding, suprapubic catheter in place, PEG tube noted EXTREMITIES: No edema, pulses are equal bilaterally. No cyanosis or clubbing NEUROLOGY: Mood and affect appear appropriate. Cranial nerves II through XII grossly intact. Moving all extremities Procedures None Urinary Catheter: Yes (suprapubic catheter) Assessment to: Continue Soto insert reason: Prolonged Immobilization Date of Insertion: Apr 21, 2016 Vascular Central Line Catheter: No A/P Assessment and Plan GI bleed with presenting of Upper GI bleed, patient with intermittent rectal bleeding: Resolved Hemoglobin continues to remain stable GI was following and reevaluated on 05/04/16 Presumed hemorrhoids, continue Anusol HC for 2 weeks Continue PPI. Protein calorie malnutrition: Improving Consulted dietitian who indicated that patient may be converted to bolus feeding Jevity 1.5, 6 cans per day. 1.5 cans that 0800 and 2000, 1 can at 1100, 1400, 1700 Prealbumin level 24 Dementia with inappropriate behavior, mood disorder improved patient more somnolent today, likely secondary to medication use, patient is afebrile, no tachycardia, no signs of infection. 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 Continue monitor blood pressure Continue Midodrine. Elevated BUN, stable Continue fluid flushes via PEG tube to avoid dehydration. Stage I decubitus ulcer, sacral skin tear: Continue wound care. Parkinson's disease: Patient has dementia and resting tremor. Chronic, stable. Weakness: Continue physical therapy Nursing staff to get patient up out of bed at least 3 times daily Palliative care evaluation According to palliative care notes. Family wishes aggressive management, they are expecting him to improve, go to a rehabilitation facility and then improve enough to go home. They are deferring hospice. DVT prophylaxis: SCDs. Avoid chemical prophylaxis secondary to GI bleed. Discharge Planning Discharge planning to correction facility once arrangements made by case management Jaguar Walker May 22, 2016 08:40
[2016-05-22 20:00] VITALS: BP 104/73; PULSE 77; RESP 16; TEMP 96.4; O2SAT 96
[2016-05-22] MEDS: MIRTAZAPINE 15 MG TAB PEG SCH (20:56)
[2016-05-23] MEDS: MIDODRINE 5 MG TAB PO SCH ×3 (06:09→17:03)
[2016-05-23] MEDS: HYDROCORTISONE ACETATE 25 MG SUPP RECTAL SCH (07:51)
[2016-05-23] MEDS: LANSOPRAZOLE SOLUTAB 30 MG TAB PEG SCH (07:51)
[2016-05-23] MEDS: ALLOPURINOL 100 MG TAB PEG SCH (07:52)
[2016-05-23 08:00] VITALS: BP_SYST 100; BP_SYST 162; BP_DIAS 70; BP_DIAS 77; PULSE 64; RESP 20; TEMP 97.1; O2SAT 98
--- NOTE | 2016-05-23 09:37 | HHI.PR ---
Subjective Remarks Patient seen and examined today. Patient denies any new complaints. No change in clinical status. Awaiting case management for discharge planning Objective Vitals Vital Signs Date Time Temp Pulse Resp B/P Pulse Ox O2 Delivery O2 Flow Rate FiO2 05/23/16 08:00 97.1 64 20 162/77 98 05/22/16 20:00 96.4 77 16 104/73 96 I/O 05/22/16 05/22/16 05/22/16 05/23/16 05/23/16 05/23/16 07:00 15:00 23:00 07:00 15:00 23:00 Intake Total 210 ml 50 ml 210 ml 180 ml Output Total 300 ml 400 ml 250 ml 325 ml Balance -90 ml -350 ml -40 ml -145 ml Intake Oral 30 ml 50 ml 30 ml Tube Feeding 0 ml Tube Irrigant 180 ml 180 ml 180 ml Output Urine Total 300 ml 400 ml 250 ml 325 ml # Bowel Movements 2 2 1 3 Objective Remarks GENERAL: Well-developed, well-nourished, in no acute distress. Patient awake and alert HEENT: Head is normocephalic without any lesions or masses noted. Facial features are symmetric. Eyes: Extraocular muscles are intact. Conjunctivae were clear. NECK: Trachea midline no deviation. CARDIAC: Regular rhythm, regular rate. S1/S2 are heard. No murmurs gallops or rubs. LUNGS: Clear to auscultation bilaterally. No wheeze, rhonchi or rales. No use of accessory muscles on inspiration or expiration. ABDOMEN: Soft, nontender. Nondistended. Bowel sounds heard in all 4 quadrants. No organomegaly or masses. Negative rebound, negative guarding, suprapubic catheter in place, PEG tube noted EXTREMITIES: No edema, pulses are equal bilaterally. No cyanosis or clubbing NEUROLOGY: Mood and affect appear appropriate. Cranial nerves II through XII grossly intact. Moving all extremities Procedures None Urinary Catheter: Yes (suprapubic catheter) Assessment to: Continue Soto insert reason: Prolonged Immobilization Date of Insertion: Apr 21, 2016 Vascular Central Line Catheter: No A/P Assessment and Plan GI bleed with presenting of Upper GI bleed, patient with intermittent rectal bleeding: Resolved Hemoglobin continues to remain stable GI was following and reevaluated on 05/04/16 Presumed hemorrhoids, continue Anusol HC for 2 weeks Continue PPI. Protein calorie malnutrition: Improving Consulted dietitian who indicated that patient may be converted to bolus feeding Jevity 1.5, 6 cans per day. 1.5 cans that 0800 and 2000, 1 can at 1100, 1400, 1700 Prealbumin level 24 Dementia with inappropriate behavior, mood disorder improved patient more somnolent today, likely secondary to medication use, patient is afebrile, no tachycardia, no signs of infection. 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 Continue monitor blood pressure Continue Midodrine. Mild obstructive uropathy: Resolved. Appreciate urology recommendations. Suprapubic catheter in place, last changed 05/19/16. To be changed monthly, Abdominal pelvis CT 03/06/16 shows resolution of right sided hydronephrosis. Elevated BUN, stable Continue fluid flushes via PEG tube to avoid dehydration. Stage I decubitus ulcer, sacral skin tear: Continue wound care. Parkinson's disease: Patient has dementia and resting tremor. Chronic, stable. Weakness: Continue physical therapy Nursing staff to get patient up out of bed at least 3 times daily Palliative care evaluation According to palliative care notes. Family wishes aggressive management, they are expecting him to improve, go to a rehabilitation facility and then improve enough to go home. They are deferring hospice. DVT prophylaxis: SCDs. Avoid chemical prophylaxis secondary to GI bleed. Discharge Planning Discharge planning to custodial facility once arrangements made by case management Jaguar Walker May 23, 2016 09:37
[2016-05-23 20:00] VITALS: BP 90/44; PULSE 61; RESP 18; TEMP 97.7; O2SAT 93
[2016-05-23] MEDS: MIRTAZAPINE 15 MG TAB PEG SCH (21:17)
[2016-05-24] MEDS: MIDODRINE 5 MG TAB PO SCH ×3 (06:22→16:10)
[2016-05-24 08:00] VITALS: BP 98/70; PULSE 74; RESP 20; TEMP 98.5; O2SAT 94
--- NOTE | 2016-05-24 08:40 | HHI.PR ---
Subjective Remarks Patient seen and examined today. Patient denies any new complaints. No change in clinical status. Nursing staff notified me yesterday that patient had residuals on his tube feeding. Patient was given Reglan 5 mg one time yesterday. Nursing staff indicates that he is tolerating tube feeding at the present time if they split bolus feedings Objective Vitals Vital Signs Date Time Temp Pulse Resp B/P Pulse Ox O2 Delivery O2 Flow Rate FiO2 05/23/16 20:00 97.7 61 18 90/44 93 I/O 05/23/16 05/23/16 05/23/16 05/24/16 05/24/16 05/24/16 07:00 15:00 23:00 07:00 15:00 23:00 Intake Total 180 ml 0 ml 420 ml Output Total 325 ml 490.0 ml 750 ml 750 ml Balance -145 ml -490.0 ml -750 ml -330 ml Intake Oral 0 ml Tube Feeding 300 ml Tube Irrigant 180 ml 120 ml Output Urine Total 325 ml 300 ml 750 ml 750 ml Tube Feeding Residual Discard 190.0 ml # Bowel Movements 3 1 1 Objective Remarks GENERAL: Well-developed, well-nourished, in no acute distress. Patient awake and alert HEENT: Head is normocephalic without any lesions or masses noted. Facial features are symmetric. Eyes: Extraocular muscles are intact. Conjunctivae were clear. NECK: Trachea midline no deviation. CARDIAC: Regular rhythm, regular rate. S1/S2 are heard. No murmurs gallops or rubs. LUNGS: Clear to auscultation bilaterally. No wheeze, rhonchi or rales. No use of accessory muscles on inspiration or expiration. ABDOMEN: Soft, nontender. Nondistended. Bowel sounds heard in all 4 quadrants. No organomegaly or masses. Negative rebound, negative guarding, suprapubic catheter in place, PEG tube noted EXTREMITIES: No edema, pulses are equal bilaterally. No cyanosis or clubbing NEUROLOGY: Mood and affect appear appropriate. Cranial nerves II through XII grossly intact. Moving all extremities Procedures None Urinary Catheter: Yes (suprapubic catheter) Assessment to: Continue Soto insert reason: Obstruction/Retention Date of Insertion: Apr 21, 2016 Vascular Central Line Catheter: No A/P Assessment and Plan GI bleed with presenting of Upper GI bleed, patient with intermittent rectal bleeding: Resolved Hemoglobin continues to remain stable GI was following and reevaluated on 05/04/16 Presumed hemorrhoids, continue Anusol HC for 2 weeks Continue PPI. Protein calorie malnutrition: Improving Consulted dietitian who indicated that patient may be converted to bolus feeding Jevity 1.5, 6 cans per day. 1.5 cans that 0800 and 2000, 1 can at 1100, 1400, 1700 Prealbumin level 24 Dementia with inappropriate behavior, mood disorder improved patient more somnolent today, likely secondary to medication use, patient is afebrile, no tachycardia, no signs of infection. 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 Continue monitor blood pressure Continue Midodrine. Mild obstructive uropathy: Resolved. Appreciate urology recommendations. Suprapubic catheter in place, last changed 05/19/16. To be changed monthly, Abdominal pelvis CT 03/06/16 shows resolution of right sided hydronephrosis. Elevated BUN, stable Continue fluid flushes via PEG tube to avoid dehydration. Stage I decubitus ulcer, sacral skin tear: Continue wound care. Parkinson's disease: Patient has dementia and resting tremor. Chronic, stable. Weakness: Continue physical therapy Nursing staff to get patient up out of bed at least 3 times daily Palliative care evaluation According to palliative care notes. Family wishes aggressive management, they are expecting him to improve, go to a rehabilitation facility and then improve enough to go home. They are deferring hospice. DVT prophylaxis: SCDs. Avoid chemical prophylaxis secondary to GI bleed. Discharge Planning Discharge planning to long term facility once arrangements made by case management Jaguar Walker May 24, 2016 08:40
[2016-05-24] MEDS: LANSOPRAZOLE SOLUTAB 30 MG TAB PEG SCH (09:20)
[2016-05-24] MEDS: ALLOPURINOL 100 MG TAB PEG SCH (09:20)
[2016-05-24 20:00] VITALS: BP 99/69; PULSE 69; RESP 16; TEMP 97.9; O2SAT 94
[2016-05-24] MEDS: MIRTAZAPINE 15 MG TAB PEG SCH (21:36)
[2016-05-25] MEDS: MIDODRINE 5 MG TAB PO SCH ×3 (06:08→16:24)
[2016-05-25 08:00] VITALS: BP 109/77; PULSE 89; RESP 16; TEMP 97.2; O2SAT 95
[2016-05-25] MEDS: LANSOPRAZOLE SOLUTAB 30 MG TAB PEG SCH (09:00)
[2016-05-25] MEDS: ALLOPURINOL 100 MG TAB PEG SCH (09:00)
--- NOTE | 2016-05-25 10:13 | HHI.PR ---
Subjective Remarks Patient seen and examined today. Patient denies any new complaints. No change in clinical status. Awaiting case management for discharge planning. Objective Vitals Vital Signs Date Time Temp Pulse Resp B/P Pulse Ox O2 Delivery O2 Flow Rate FiO2 05/25/16 08:00 97.2 89 16 109/77 95 05/24/16 20:00 97.9 69 16 99/69 94 I/O 05/24/16 05/24/16 05/24/16 05/25/16 05/25/16 05/25/16 07:00 15:00 23:00 07:00 15:00 23:00 Intake Total 420 ml 1550 ml 540 ml Output Total 750 ml 400 ml 350 ml Balance -330 ml 1150 ml 190 ml Intake Oral 100 ml Tube Feeding 300 ml 1050 ml 360 ml Tube Irrigant 120 ml 0 ml Other 400 ml 180 ml Output Urine Total 750 ml 400 ml 350 ml # Bowel Movements 1 1 1 3 Objective Remarks GENERAL: Well-developed, well-nourished, in no acute distress. Patient awake and alert HEENT: Head is normocephalic without any lesions or masses noted. Facial features are symmetric. Eyes: Extraocular muscles are intact. Conjunctivae were clear. NECK: Trachea midline no deviation. CARDIAC: Regular rhythm, regular rate. S1/S2 are heard. No murmurs gallops or rubs. LUNGS: Clear to auscultation bilaterally. No wheeze, rhonchi or rales. No use of accessory muscles on inspiration or expiration. ABDOMEN: Soft, nontender. Nondistended. Bowel sounds heard in all 4 quadrants. No organomegaly or masses. Negative rebound, negative guarding, suprapubic catheter in place, PEG tube noted EXTREMITIES: No edema, pulses are equal bilaterally. No cyanosis or clubbing NEUROLOGY: Mood and affect appear appropriate. Cranial nerves II through XII grossly intact. Moving all extremities Procedures None Urinary Catheter: Yes (suprapubic catheter) Assessment to: Continue Soto insert reason: Obstruction/Retention Date of Insertion: Apr 21, 2016 Vascular Central Line Catheter: No A/P Assessment and Plan GI bleed with presenting of Upper GI bleed, patient with intermittent rectal bleeding: Resolved Hemoglobin continues to remain stable GI was following and reevaluated on 05/04/16 Presumed hemorrhoids, continue Anusol HC for 2 weeks Continue PPI. Protein calorie malnutrition: Improving Consulted dietitian who indicated that patient may be converted to bolus feeding Jevity 1.5, 6 cans per day. 1.5 cans that 0800 and 2000, 1 can at 1100, 1400, 1700 Prealbumin level 24 Dementia with inappropriate behavior, mood disorder improved patient more somnolent today, likely secondary to medication use, patient is afebrile, no tachycardia, no signs of infection. 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 Continue monitor blood pressure Continue Midodrine. Mild obstructive uropathy: Resolved. Appreciate urology recommendations. Suprapubic catheter in place, last changed 05/19/16. To be changed monthly, Abdominal pelvis CT 03/06/16 shows resolution of right sided hydronephrosis. Elevated BUN, stable Continue fluid flushes via PEG tube to avoid dehydration. Stage I decubitus ulcer, sacral skin tear: Continue wound care. Parkinson's disease: Patient has dementia and resting tremor. Chronic, stable. Weakness: Continue physical therapy Nursing staff to get patient up out of bed at least 3 times daily Palliative care evaluation According to palliative care notes. Family wishes aggressive management, they are expecting him to improve, go to a rehabilitation facility and then improve enough to go home. They are deferring hospice. DVT prophylaxis: SCDs. Avoid chemical prophylaxis secondary to GI bleed. Discharge Planning Discharge planning to residential facility once arrangements made by case management Jaguar Walker May 25, 2016 10:13
[2016-05-25 20:00] VITALS: BP 117/76; PULSE 64; RESP 16; TEMP 96.2; O2SAT 97
[2016-05-25] MEDS: MIRTAZAPINE 15 MG TAB PEG SCH (20:04)
[2016-05-26] MEDS: MIDODRINE 5 MG TAB PO SCH ×3 (06:28→18:17)
[2016-05-26 08:00] VITALS: BP 95/60; PULSE 83; RESP 20; TEMP 97.2; O2SAT 97
[2016-05-26] MEDS: ALLOPURINOL 100 MG TAB PEG SCH (09:26)
[2016-05-26] MEDS: LANSOPRAZOLE SOLUTAB 30 MG TAB PEG SCH (09:26)
--- NOTE | 2016-05-26 09:54 | HHI.PR ---
Subjective Remarks Patient seen and examined today. Patient denies any new complaints. No change in clinical status. Awaiting case management for discharge planning Objective Vitals Vital Signs Date Time Temp Pulse Resp B/P Pulse Ox O2 Delivery O2 Flow Rate FiO2 05/26/16 08:00 97.2 83 20 95/60 97 05/25/16 20:00 96.2 64 16 117/76 97 I/O 05/25/16 05/25/16 05/25/16 05/26/16 05/26/16 05/26/16 07:00 15:00 23:00 07:00 15:00 23:00 Intake Total 540 ml 0 ml 1840 ml 200 ml Output Total 350 ml 350 ml 450 ml 200 ml Balance 190 ml -350 ml 1390 ml 0 ml Intake Oral 0 ml Tube Feeding 360 ml 1440 ml Tube Irrigant 200 ml 200 ml Other 180 ml 200 ml Output Urine Total 350 ml 350 ml 450 ml 200 ml # Bowel Movements 3 3 1 2 Objective Remarks GENERAL: Well-developed, well-nourished, in no acute distress. Patient awake and alert HEENT: Head is normocephalic without any lesions or masses noted. Facial features are symmetric. Eyes: Extraocular muscles are intact. Conjunctivae were clear. NECK: Trachea midline no deviation. CARDIAC: Regular rhythm, regular rate. S1/S2 are heard. No murmurs gallops or rubs. LUNGS: Clear to auscultation bilaterally. No wheeze, rhonchi or rales. No use of accessory muscles on inspiration or expiration. ABDOMEN: Soft, nontender. Nondistended. Bowel sounds heard in all 4 quadrants. No organomegaly or masses. Negative rebound, negative guarding, suprapubic catheter in place, PEG tube noted EXTREMITIES: No edema, pulses are equal bilaterally. No cyanosis or clubbing NEUROLOGY: Mood and affect appear appropriate. Cranial nerves II through XII grossly intact. Moving all extremities Procedures None Urinary Catheter: Yes (suprapubic catheter) Assessment to: Continue Soto insert reason: Obstruction/Retention Date of Insertion: Apr 21, 2016 Vascular Central Line Catheter: No A/P Assessment and Plan GI bleed with presenting of Upper GI bleed, patient with intermittent rectal bleeding: Resolved Hemoglobin continues to remain stable GI was following and reevaluated on 05/04/16 Presumed hemorrhoids, continue Anusol HC for 2 weeks Continue PPI. Protein calorie malnutrition: Improving Consulted dietitian who indicated that patient may be converted to bolus feeding Jevity 1.5, 6 cans per day. 1.5 cans that 0800 and 2000, 1 can at 1100, 1400, 1700 Prealbumin level 24 Dementia with inappropriate behavior, mood disorder improved patient more somnolent today, likely secondary to medication use, patient is afebrile, no tachycardia, no signs of infection. 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 Continue monitor blood pressure Continue Midodrine. Mild obstructive uropathy: Resolved. Appreciate urology recommendations. Suprapubic catheter in place, last changed 05/19/16. To be changed monthly, Abdominal pelvis CT 03/06/16 shows resolution of right sided hydronephrosis. Elevated BUN, stable Continue fluid flushes via PEG tube to avoid dehydration. Stage I decubitus ulcer, sacral skin tear: Continue wound care. Parkinson's disease: Patient has dementia and resting tremor. Chronic, stable. Weakness: Continue physical therapy Nursing staff to get patient up out of bed at least 3 times daily Palliative care evaluation According to palliative care notes. Family wishes aggressive management, they are expecting him to improve, go to a rehabilitation facility and then improve enough to go home. They are deferring hospice. DVT prophylaxis: SCDs. Avoid chemical prophylaxis secondary to GI bleed. Discharge Planning Discharge planning to [facility] facility once arrangements made by case management Jaguar Walker May 26, 2016 09:54
[2016-05-26 20:00] VITALS: BP 96/64; PULSE 69; RESP 20; TEMP 95.6; O2SAT 95
[2016-05-26] MEDS: MIRTAZAPINE 15 MG TAB PEG SCH (20:54)
[2016-05-27] MEDS: MIDODRINE 5 MG TAB PO SCH ×3 (06:16→16:44)
[2016-05-27 08:00] VITALS: BP 97/64; PULSE 84; RESP 18; TEMP 96.1; O2SAT 96
[2016-05-27] MEDS: LANSOPRAZOLE SOLUTAB 30 MG TAB PEG SCH (08:24)
[2016-05-27] MEDS: ALLOPURINOL 100 MG TAB PEG SCH (08:24)
--- NOTE | 2016-05-27 12:00 | HHI.PR ---
Subjective Remarks Patient seen and examined today. Patient has any new complaints. No change in clinical status. Awaiting case management for discharge planning Objective Vitals Vital Signs Date Time Temp Pulse Resp B/P Pulse Ox O2 Delivery O2 Flow Rate FiO2 05/27/16 08:00 96.1 84 18 97/64 96 05/26/16 20:00 95.6 69 20 96/64 95 I/O 05/26/16 05/26/16 05/26/16 05/27/16 05/27/16 05/27/16 07:00 15:00 23:00 07:00 15:00 23:00 Intake Total 200 ml 0 ml 1920 ml Output Total 200 ml 400 ml 550 ml 550 ml Balance 0 ml -400 ml 1370 ml -550 ml Intake Oral 0 ml Tube Feeding 1200 ml Tube Irrigant 200 ml 720 ml Output Urine Total 200 ml 400 ml 550 ml 550 ml # Bowel Movements 2 2 1 2 Objective Remarks GENERAL: Well-developed, well-nourished, in no acute distress. Patient awake and alert HEENT: Head is normocephalic without any lesions or masses noted. Facial features are symmetric. Eyes: Extraocular muscles are intact. Conjunctivae were clear. NECK: Trachea midline no deviation. CARDIAC: Regular rhythm, regular rate. S1/S2 are heard. No murmurs gallops or rubs. LUNGS: Clear to auscultation bilaterally. No wheeze, rhonchi or rales. No use of accessory muscles on inspiration or expiration. ABDOMEN: Soft, nontender. Nondistended. Bowel sounds heard in all 4 quadrants. No organomegaly or masses. Negative rebound, negative guarding, suprapubic catheter in place, PEG tube noted EXTREMITIES: No edema, pulses are equal bilaterally. No cyanosis or clubbing NEUROLOGY: Mood and affect appear appropriate. Cranial nerves II through XII grossly intact. Moving all extremities Procedures None Urinary Catheter: Yes (suprapubic catheter) Assessment to: Continue Date of Insertion: Apr 21, 2016 Vascular Central Line Catheter: No A/P Assessment and Plan GI bleed with presenting of Upper GI bleed, patient with intermittent rectal bleeding: Resolved Hemoglobin continues to remain stable GI was following and reevaluated on 05/04/16 Presumed hemorrhoids, continue Anusol HC for 2 weeks Continue PPI. Protein calorie malnutrition: Improving Consulted dietitian who indicated that patient may be converted to bolus feeding Jevity 1.5, 6 cans per day. 1.5 cans that 0800 and 2000, 1 can at 1100, 1400, 1700 Prealbumin level 24 Dementia with inappropriate behavior, mood disorder improved patient more somnolent today, likely secondary to medication use, patient is afebrile, no tachycardia, no signs of infection. 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 Continue monitor blood pressure Continue Midodrine. Mild obstructive uropathy: Resolved. Appreciate urology recommendations. Suprapubic catheter in place, last changed 05/19/16. To be changed monthly, Abdominal pelvis CT 03/06/16 shows resolution of right sided hydronephrosis. Elevated BUN, stable Continue fluid flushes via PEG tube to avoid dehydration. Stage I decubitus ulcer, sacral skin tear: Continue wound care. Parkinson's disease: Patient has dementia and resting tremor. Chronic, stable. Weakness: Continue physical therapy Nursing staff to get patient up out of bed at least 3 times daily Palliative care evaluation According to palliative care notes. Family wishes aggressive management, they are expecting him to improve, go to a rehabilitation facility and then improve enough to go home. They are deferring hospice. DVT prophylaxis: SCDs. Avoid chemical prophylaxis secondary to GI bleed. Discharge Planning Discharge planning to long-term facility once arrangements made by case management Jaguar Walker May 27, 2016 12:00
[2016-05-27 20:00] VITALS: BP 126/77; PULSE 69; RESP 20; TEMP 96.7; O2SAT 97
[2016-05-27] MEDS: MIRTAZAPINE 15 MG TAB PEG SCH (20:06)
[2016-05-28] MEDS: MIDODRINE 5 MG TAB PO SCH ×3 (06:33→17:10)
[2016-05-28 08:00] VITALS: BP 100/61; PULSE 65; RESP 20; TEMP 95.9; O2SAT 95
[2016-05-28] MEDS: ALLOPURINOL 100 MG TAB PEG SCH (09:16)
[2016-05-28] MEDS: LANSOPRAZOLE SOLUTAB 30 MG TAB PEG SCH (09:16)
--- NOTE | 2016-05-28 16:33 | HHI.PR ---
Subjective Remarks Patient evaluated this morning. No acute complaints. No change in clinical status. Objective Vitals Vital Signs Date Time Temp Pulse Resp B/P Pulse Ox O2 Delivery O2 Flow Rate FiO2 05/28/16 08:00 95.9 65 20 100/61 95 05/27/16 20:00 96.7 69 20 126/77 97 I/O 05/27/16 05/27/16 05/27/16 05/28/16 05/28/16 05/28/16 07:00 15:00 23:00 07:00 15:00 23:00 Intake Total 1280 ml 610 ml 230 ml 1280 ml Output Total 550 ml 275 ml 350 ml Balance -550 ml 1280 ml 335 ml -120 ml 1280 ml Intake Oral 50 ml 30 ml Tube Feeding 1080 ml 360 ml 1080 ml Tube Irrigant 200 ml 200 ml Other 200 ml 200 ml Output Urine Total 550 ml 275 ml 350 ml # Bowel Movements 2 2 2 Objective Remarks GENERAL: Well developed male in no apparent distress. CARDIOVASCULAR: Regular rate and rhythm. RESPIRATORY: No accessory muscle use. Clear to auscultation bilaterally. GASTROINTESTINAL: Abdomen soft, non-tender, non-distended. NEUROLOGICAL: Awake and alert. PSYCHIATRIC: Normal mood and affect. Procedures None Urinary Catheter: No Date of Insertion: Apr 21, 2016 Vascular Central Line Catheter: No A/P Problem List: (1) Weakness ICD Code: R53.1 Status: Acute Assessment and Plan Upper GI bleeding: Resolved with recurrent rectal bleeding. Hemoglobin stable. GI reevaluated patient on 05/04. Presumed hemorrhoids, continue Anusol HC for total of 2 weeks. Continue PPI. Protein calorie malnutrition: Improving Consulted dietitian who indicated that patient may be converted to bolus feeding Jevity 1.5 w/ bolus 1.5 cans (360ml) @ 0800 and 2000 and 1 can(240ml) @ 1100, 1400 and 1700. Free Water Flush 100ml before and after each bolus feeding Prealbumin level 23 Patient desired to eat and speech therapy advised puree diet, thin liquids, but patient has not been eating anything. Dementia with inappropriate behavior, mood disorder improved Patient had inappropriate behavior which is resolved now. He has been very appropriate for a long time now. Patient has been hospitalized for similar events in 2015 Consulted psychiatry for further evaluation, who indicated that this is a frontal lobe dementia Risperdal 0.25 mg during the day, Risperdal 0.5 mg at night. Risperdal was discontinued per POA request. Continue Remeron Psychiatry was reconsulted and is ok with discontinuation of Risperdal, but recommends Haldol 1-2 mg q12 prn for aggressive behavior and agitation. I have not witnessed any behavior like this. Probable seborrheic dermatitis: Flaky skin to the face and neck. -Improved s/p one time dose of Ketoconazole 2% shampoo. -Monitor need for further treatments. Chalazion: Persistent nodule R upper eyelid. There is no evidence of preseptal cellulitis. -Warm compresses were applied but it was greater than 2 weeks without significant improvement. -Ophthalmology was consulted and evaluated patient on 03/26. S/p warm compresses and Tobradex 4 times a day OD x 2 weeks. Patient was intermittently compliant with eyedrops. -No worsening. Follow-up outpatient. Hypotension: Blood pressure labile. Continue Midodrine. Patient on max dose. Increase free water flushes as needed. Elevated BUN, stable Continue fluid flushes via PEG tube to avoid dehydration. Stage I decubitus ulcer, sacral skin tear: Continue wound care. Mild obstructive uropathy: Resolved. Appreciate urology recommendations. Suprapubic catheter in place last changed 05/19/16, confirmed with nurse although confusion in documentation. Change monthly. Abdominal pelvis CT 03/06/16 shows resolution of right sided hydronephrosis. Urinary tract infection: Resolved Urine culture positive for Proteus mirabilis and GBS. Patient has completed course of antibiotics. Abdominal pelvis CT 03/06 shows decompressed bladder with circumferential bladder wall thickening and intraluminal air possibly indicating cystitis, but the patient has been afebrile with normal WBC count. No treatment indicated. Weakness: Continue physical therapy Nursing staff to get patient up out of bed at least 3 times daily Palliative care evaluation According to palliative care notes family wishes aggressive management, they are expecting him to improve, go to a rehabilitation facility and then improve enough to go home. They are declining hospice. DVT prophylaxis: SCDs. Avoid chemical prophylaxis secondary to GI bleed. Discharge Planning CM continuing to follow for placement. Madeline Ortez May 28, 2016 16:33
[2016-05-28 20:00] VITALS: BP 93/61; PULSE 63; RESP 16; TEMP 97.8; O2SAT 93
[2016-05-28] MEDS: MIRTAZAPINE 15 MG TAB PEG SCH (20:45)
[2016-05-29] MEDS: MIDODRINE 5 MG TAB PO SCH ×3 (06:08→16:51)
[2016-05-29] MEDS: LANSOPRAZOLE SOLUTAB 30 MG TAB PEG SCH (07:57)
[2016-05-29] MEDS: ALLOPURINOL 100 MG TAB PEG SCH (07:57)
[2016-05-29 08:00] VITALS: BP 104/64; PULSE 62; RESP 17; TEMP 97.1; O2SAT 96
--- NOTE | 2016-05-29 09:01 | HHI.PR ---
Subjective Remarks No acute complaints. No change in clinical status. Objective Vitals Vital Signs Date Time Temp Pulse Resp B/P Pulse Ox O2 Delivery O2 Flow Rate FiO2 05/29/16 08:00 97.1 62 17 104/64 96 05/28/16 20:00 97.8 63 16 93/61 93 I/O 05/28/16 05/28/16 05/28/16 05/29/16 05/29/16 05/29/16 07:00 15:00 23:00 07:00 15:00 23:00 Intake Total 230 ml 1820 ml 0 ml Output Total 350 ml 450 ml 300 ml Balance -120 ml 1370 ml -300 ml Intake Oral 30 ml 60 ml 0 ml Tube Feeding 1440 ml Tube Irrigant 200 ml 120 ml Other 200 ml Output Urine Total 350 ml 450 ml 300 ml # Bowel Movements 2 1 Objective Remarks GENERAL: Well developed male in no apparent distress. CARDIOVASCULAR: Regular rate and rhythm. RESPIRATORY: No accessory muscle use. Clear to auscultation bilaterally. GASTROINTESTINAL: Normoactive bowel sounds. Abdomen soft, non-tender, non- distended. NEUROLOGICAL: Awake and alert. PSYCHIATRIC: Normal mood and affect. Procedures None Urinary Catheter: Yes Assessment to: Continue Soto insert reason: Prolonged Immobilization Date of Insertion: Apr 21, 2016 Vascular Central Line Catheter: No A/P Assessment and Plan Upper GI bleeding: Resolved with recurrent rectal bleeding. Hemoglobin stable. GI reevaluated patient on 05/04. Presumed hemorrhoids, continue Anusol HC for total of 2 weeks. Continue PPI. Protein calorie malnutrition: Improving Consulted dietitian who indicated that patient may be converted to bolus feeding Jevity 1.5 w/ bolus 1.5 cans(360ml) @ 0800 and 2000 and 1-can(240ml) @ 1100, 1400 and 1700. Free Water Flush 100ml before and after each bolus feeding Ensure Enlive tid and chocolate pudding tid Prealbumin level 23 Patient desired to eat and speech therapy advised puree diet, thin liquids, but patient has not been eating. Care Companion suggests considering appetite stimulant. Dementia with inappropriate behavior, mood disorder improved Patient had inappropriate behavior which is resolved now. He has been very appropriate for a long time now. Patient has been hospitalized for similar events in 2015 Consulted psychiatry for further evaluation, who indicated that this is a frontal lobe dementia Risperdal 0.25 mg during the day, Risperdal 0.5 mg at night. Risperdal was discontinued per POA request. Continue Remeron Psychiatry was reconsulted and is ok with discontinuation of Risperdal, but recommends Haldol 1-2 mg q12 prn for aggressive behavior and agitation. I have not witnessed any behavior like this. Probable seborrheic dermatitis: Flaky skin to the face and neck. -Improved s/p one time dose of Ketoconazole 2% shampoo. -Monitor need for further treatments. Chalazion: Persistent nodule R upper eyelid. There is no evidence of preseptal cellulitis. -Warm compresses were applied but it was greater than 2 weeks without significant improvement. -Ophthalmology was consulted and evaluated patient on 03/26. S/p warm compresses and Tobradex 4 times a day OD x 2 weeks. Patient was intermittently compliant with eyedrops. -No worsening. Follow-up outpatient. Hypotension: Blood pressure labile. Continue Midodrine. Patient on max dose. Increase free water flushes as needed. Elevated BUN, stable Continue fluid flushes via PEG tube to avoid dehydration. Stage I decubitus ulcer, sacral skin tear: Continue wound care. Mild obstructive uropathy: Resolved. Appreciate urology recommendations. Suprapubic catheter in place last changed 05/19/16, confirmed with nurse although confusion in documentation. Change monthly. Abdominal pelvis CT 03/06/16 shows resolution of right sided hydronephrosis. Urinary tract infection: Resolved Urine culture positive for Proteus mirabilis and GBS. Patient has completed course of antibiotics. Abdominal pelvis CT 03/06 shows decompressed bladder with circumferential bladder wall thickening and intraluminal air possibly indicating cystitis, but the patient has been afebrile with normal WBC count. No treatment indicated. Weakness: Continue physical therapy Nursing staff to get patient up out of bed at least 3 times daily Palliative care evaluation According to palliative care notes family wishes aggressive management, they are expecting him to improve, go to a rehabilitation facility and then improve enough to go home. They are declining hospice. DVT prophylaxis: SCDs. Avoid chemical prophylaxis secondary to GI bleed. Discharge Planning CM continuing to follow for placement. Madeline Ortez May 29, 2016 09:01
[2016-05-29 20:00] VITALS: BP 114/71; PULSE 60; RESP 20; TEMP 97.1; O2SAT 95
[2016-05-29] MEDS: DIPHENOXYLATE/ATROPINE 2.5 MG/0.025 MG TAB PO PRN (21:00)
[2016-05-29] MEDS: MIRTAZAPINE 15 MG TAB PEG SCH (21:00)
[2016-05-30] MEDS: DIPHENOXYLATE/ATROPINE 2.5 MG/0.025 MG TAB PO PRN (05:51)
[2016-05-30] MEDS: MIDODRINE 5 MG TAB PO SCH ×3 (05:51→16:52)
[2016-05-30 08:00] VITALS: BP 104/69; PULSE 63; RESP 19; TEMP 96.4; O2SAT 97
[2016-05-30] MEDS: ALLOPURINOL 100 MG TAB PEG SCH (09:17)
[2016-05-30] MEDS: LANSOPRAZOLE SOLUTAB 30 MG TAB PEG SCH (09:17)
--- NOTE | 2016-05-30 12:21 | HHI.PR ---
Subjective Remarks No acute complaints. No change in clinical status. Objective Vitals Vital Signs Date Time Temp Pulse Resp B/P Pulse Ox O2 Delivery O2 Flow Rate FiO2 05/30/16 08:00 96.4 63 19 104/69 97 05/29/16 20:00 97.1 60 20 114/71 95 I/O 05/29/16 05/29/16 05/29/16 05/30/16 05/30/16 05/30/16 07:00 15:00 23:00 07:00 15:00 23:00 Intake Total 0 ml 0 ml 300 ml 60 ml Output Total 300 ml 400 ml 200 ml 450 ml Balance -300 ml -400 ml 100 ml -390 ml Intake Oral 0 ml 0 ml Tube Feeding 240 ml Other 60 ml 60 ml Output Urine Total 300 ml 400 ml 200 ml 450 ml # Bowel Movements 2 1 0 Objective Remarks GENERAL: Well developed male in no apparent distress. CARDIOVASCULAR: Regular rate and rhythm. RESPIRATORY: No accessory muscle use. Clear to auscultation bilaterally. GASTROINTESTINAL: Abdomen soft, non-tender, non-distended. NEUROLOGICAL: Awake and alert. PSYCHIATRIC: Normal mood and affect. Procedures None Urinary Catheter: Yes Assessment to: Continue Soto insert reason: Prolonged Immobilization Date of Insertion: Apr 21, 2016 Vascular Central Line Catheter: No A/P Problem List: (1) Weakness ICD Code: R53.1 Status: Acute Assessment and Plan Upper GI bleeding: Resolved with recurrent rectal bleeding. Hemoglobin stable. GI reevaluated patient on 05/04. Presumed hemorrhoids, continue Anusol HC for total of 2 weeks. Continue PPI. Protein calorie malnutrition: Improving Consulted dietitian who indicated that patient may be converted to bolus feeding Jevity 1.5 w/ bolus 1.5 cans(360ml) @ 0800 and 2000 and 1-can(240ml) @ 1100, 1400 and 1700. Free Water Flush 100ml before and after each bolus feeding Ensure Enlive tid and chocolate pudding tid Prealbumin level 23 Patient desired to eat and speech therapy advised puree diet, thin liquids, but patient has not been eating. Communications Systems Engineer suggests considering appetite stimulant. Dementia with inappropriate behavior, mood disorder improved Patient had inappropriate behavior which is resolved now. He has been very appropriate for a long time now. Patient has been hospitalized for similar events in 2015 Consulted psychiatry for further evaluation, who indicated that this is a frontal lobe dementia Risperdal 0.25 mg during the day, Risperdal 0.5 mg at night. Risperdal was discontinued per POA request. Continue Remeron Psychiatry was reconsulted and is ok with discontinuation of Risperdal, but recommends Haldol 1-2 mg q12 prn for aggressive behavior and agitation. I have not witnessed any behavior like this. Probable seborrheic dermatitis: Flaky skin to the face and neck. -Improved s/p one time dose of Ketoconazole 2% shampoo. -Monitor need for further treatments. Chalazion: Persistent nodule R upper eyelid. There is no evidence of preseptal cellulitis. -Warm compresses were applied but it was greater than 2 weeks without significant improvement. -Ophthalmology was consulted and evaluated patient on 03/26. S/p warm compresses and Tobradex 4 times a day OD x 2 weeks. Patient was intermittently compliant with eyedrops. -No worsening. Follow-up outpatient. Hypotension: Blood pressure labile. Continue Midodrine. Patient on max dose. Increase free water flushes as needed. Elevated BUN, stable Continue fluid flushes via PEG tube to avoid dehydration. Stage I decubitus ulcer, sacral skin tear: Continue wound care. Mild obstructive uropathy: Resolved. Appreciate urology recommendations. Suprapubic catheter in place last changed 05/19/16, confirmed with nurse although confusion in documentation. Change monthly. Abdominal pelvis CT 03/06/16 shows resolution of right sided hydronephrosis. Urinary tract infection: Resolved Urine culture positive for Proteus mirabilis and GBS. Patient has completed course of antibiotics. Abdominal pelvis CT 03/06 shows decompressed bladder with circumferential bladder wall thickening and intraluminal air possibly indicating cystitis, but the patient has been afebrile with normal WBC count. No treatment indicated. Weakness: Continue physical therapy Nursing staff to get patient up out of bed at least 3 times daily Palliative care evaluation According to palliative care notes family wishes aggressive management, they are expecting him to improve, go to a rehabilitation facility and then improve enough to go home. They are declining hospice. DVT prophylaxis: SCDs. Avoid chemical prophylaxis secondary to GI bleed. Discharge Planning CM continuing to follow for placement. Madeline Ortez May 30, 2016 12:21
[2016-05-30 20:00] VITALS: BP 98/84; PULSE 96; RESP 20; TEMP 97.3; O2SAT 94
[2016-05-30] MEDS: MIRTAZAPINE 15 MG TAB PEG SCH (20:08)
[2016-05-31] MEDS: MIDODRINE 5 MG TAB PO SCH ×3 (06:01→16:46)
[2016-05-31 08:00] VITALS: BP 132/80; PULSE 88; RESP 17; TEMP 97.6; O2SAT 96
[2016-05-31] MEDS: LANSOPRAZOLE SOLUTAB 30 MG TAB PEG SCH (09:19)
[2016-05-31] MEDS: ALLOPURINOL 100 MG TAB PEG SCH (09:19)
--- NOTE | 2016-05-31 13:20 | HHI.PR ---
Subjective Remarks Follow-up for dementia, malnutrition. Discussed patient with nurse who states the patient has had cloudy urine. Although it was noted by me to be yellow and transparent in catheter bag at bedside she states urine has been cloudy in the tubing. Patient denies any fevers, abdominal pain, or dysuria. Objective Vitals Vital Signs Date Time Temp Pulse Resp B/P Pulse Ox O2 Delivery O2 Flow Rate FiO2 05/31/16 08:00 97.6 88 17 132/80 96 05/30/16 20:00 97.3 96 20 98/84 94 I/O 05/30/16 05/30/16 05/30/16 05/31/16 05/31/16 05/31/16 07:00 15:00 23:00 07:00 15:00 23:00 Intake Total 60 ml 0 ml Output Total 450 ml 375 ml 250 ml 250 ml Balance -390 ml -375 ml -250 ml -250 ml Intake Oral 0 ml Other 60 ml Output Urine Total 450 ml 375 ml 250 ml 250 ml # Bowel Movements 0 1 1 1 Objective Remarks GENERAL: Well developed male in no apparent distress. CARDIOVASCULAR: Regular rate and rhythm. RESPIRATORY: No accessory muscle use. Clear to auscultation bilaterally. GASTROINTESTINAL: Abdomen soft, non-tender, non-distended. NEUROLOGICAL: Awake and alert. PSYCHIATRIC: Normal mood and affect. Procedures None Urinary Catheter: Yes Assessment to: Continue Soto insert reason: Prolonged Immobilization Date of Insertion: Apr 21, 2016 Vascular Central Line Catheter: No A/P Problem List: (1) Prerenal azotemia ICD Code: R79.89 Status: Acute Assessment and Plan Upper GI bleeding: Resolved with recurrent rectal bleeding. Hemoglobin stable. GI reevaluated patient on 05/04. Presumed hemorrhoids, continue Anusol HC for total of 2 weeks. Continue PPI. Protein calorie malnutrition: Improving Consulted dietitian who indicated that patient may be converted to bolus feeding Jevity 1.5 w/ bolus 1.5 cans(360ml) @ 0800 and 2000 and 1-can(240ml) @ 1100, 1400 and 1700. Free Water Flush 100ml before and after each bolus feeding Ensure Enlive tid and chocolate pudding tid Prealbumin level 23. New prealbumin level pending. Patient desired to eat and speech therapy advised puree diet, thin liquids, but patient has not been eating. Optical Instrument Assembler suggests considering appetite stimulant. Dementia with inappropriate behavior, mood disorder improved Patient had inappropriate behavior which is resolved now. He has been very appropriate for a long time now. Patient has been hospitalized for similar events in 2014 Consulted psychiatry for further evaluation, who indicated that this is a frontal lobe dementia Risperdal 0.25 mg during the day, Risperdal 0.5 mg at night. Risperdal was discontinued per POA request. Continue Remeron Psychiatry was reconsulted and is ok with discontinuation of Risperdal, but recommends Haldol 1-2 mg q12 prn for aggressive behavior and agitation. I have not witnessed any behavior like this. Probable seborrheic dermatitis: Flaky skin to the face and neck. -Improved s/p one time dose of Ketoconazole 2% shampoo. -Monitor need for further treatments. Chalazion: Persistent nodule R upper eyelid. There is no evidence of preseptal cellulitis. -Warm compresses were applied but it was greater than 2 weeks without significant improvement. -Ophthalmology was consulted and evaluated patient on 03/26. S/p warm compresses and Tobradex 4 times a day OD x 2 weeks. Patient was intermittently compliant with eyedrops. -No worsening. Follow-up outpatient. Hypotension: Blood pressure labile. Continue Midodrine. Patient on max dose. Increase free water flushes as needed. Pre-renal azotemia: BUN elevated at 23. Patient receives 100ml free water flush before and after each bolus feeding. Increase free water flushes via PEG tube to avoid dehydration; add 200 mL between bolus feeds. Relayed to nurse. Stage I decubitus ulcer, sacral skin tear: Continue wound care. Mild obstructive uropathy: Resolved. Appreciate urology recommendations. Suprapubic catheter in place last changed 05/19/16, confirmed with nurse although confusion in documentation. Change monthly. Abdominal pelvis CT 03/06/16 shows resolution of right sided hydronephrosis. Urinary tract infection: Urine culture positive for Proteus mirabilis and GBS on 01/20. Patient completed course of antibiotics. Abdominal pelvis CT 03/06 shows decompressed bladder with circumferential bladder wall thickening and intraluminal air possibly indicating cystitis, but the patient had been afebrile with normal WBC count. Although patient denies UTI symptoms, he is not completely reliable and nurse noted cloudy urine today. UA today reviewed revealing infection. CBC today with normal WBC normal and patient remains afebrile. Will hold off on starting treatment until culture results. Weakness: Continue physical therapy Nursing staff to get patient up out of bed at least 3 times daily Palliative care evaluation According to palliative care notes family wishes aggressive management, they are expecting him to improve, go to a rehabilitation facility and then improve enough to go home. They are declining hospice. DVT prophylaxis: SCDs. Avoid chemical prophylaxis secondary to GI bleed. Discharge Planning CM continuing to follow for placement. Madeline Ortez May 31, 2016 13:20
[2016-05-31 14:04] LABS: AUTOMATED NEUTROPHIL # 4.5 TH/MM3 (1.8-7.7); BASOPHIL % 0.5 % (0.0-2.0); EOSINOPHIL # 0.5 TH/MM3 (0-0.4); EOSINOPHIL % 6.3 % (0.0-4.0); HEMATOCRIT 44.8 % (39.0-51.0); HEMO FLAGS DIFF FINAL; LYMPH % 28.9 % (9.0-44.0); LYMPHOCYTE # 2.2 TH/MM3 (1.0-4.8); MEAN CELL VOLUME 86.6 FL (80.0-100.0); MEAN CORPUSCULAR HEMOGLOBIN 28.2 PG (27.0-34.0); MEAN CORPUSCULAR HGB CONC 32.6 % (32.0-36.0); NEUT % 60.3 % (16.0-70.0); PLATELET COUNT 190 TH/MM3 (150-450); RED BLOOD COUNT 5.18 MIL/MM3 (4.50-5.90); RED CELL DISTRIBUTION WIDTH 15.3 % (11.6-17.2); WHITE BLOOD COUNT 7.5 TH/MM3 (4.0-11.0)
[2016-05-31 14:13] LABS: POTASSIUM 3.9 MEQ/L (3.5-5.1)
[2016-05-31 14:16] LABS: BICARBONATE 31.3 MEQ/L (21.0-32.0)
[2016-05-31 15:07] LABS: BLOOD, URINE SMALL (NEG); GLUCOSE,URINE NEG (NEG); KETONE, URINE NEG (NEG)
[2016-05-31 15:14] LABS: NITRITE,URINE POS (NEG)
[2016-05-31 15:17] LABS: URINE COLOR YELLOW (YELLW/STRAW); WBC, URINE INNUM /hpf (0-5)
[2016-05-31 15:18] LABS: BACTERIA, URINE MOD /hpf; RBC, URINE 100-200 /hpf (0-3)
[2016-05-31 15:19] LABS: COMMENT (UR) CATH-CULTURE IND; CULTURE IF INDICATED CATH CULTURE IND; METHOD OF COLLECTION CATH
[2016-05-31 20:00] VITALS: BP 102/71; PULSE 75; RESP 20; TEMP 98.2; O2SAT 96
[2016-05-31] MEDS: MIRTAZAPINE 15 MG TAB PEG SCH (21:17)
[2016-06-01] MEDS: MIDODRINE 5 MG TAB PO SCH ×3 (06:04→17:20)
[2016-06-01 08:00] VITALS: BP 119/79; PULSE 72; RESP 18; TEMP 98.8; O2SAT 95
[2016-06-01] MEDS: LANSOPRAZOLE SOLUTAB 30 MG TAB PEG SCH (09:08)
[2016-06-01] MEDS: ALLOPURINOL 100 MG TAB PEG SCH (09:08)
--- NOTE | 2016-06-01 11:40 | HHI.PR ---
Subjective Remarks Follow-up for dementia, malnutrition, UTI. Patient denies any fevers or chills , nausea/vomiting, abdominal pain, or dysuria. Objective Vitals Vital Signs Date Time Temp Pulse Resp B/P Pulse Ox O2 Delivery O2 Flow Rate FiO2 06/01/16 08:00 98.8 72 18 119/79 95 05/31/16 20:00 98.2 75 20 102/71 96 I/O 05/31/16 05/31/16 05/31/16 06/01/16 06/01/16 06/01/16 07:00 15:00 23:00 07:00 15:00 23:00 Intake Total 2280 ml Output Total 250 ml 1 ml 300 ml 650 ml Balance -250 ml -1 ml 1980 ml -650 ml Tube Feeding 1080 ml Other 1200 ml Output Urine Total 250 ml 300 ml 650 ml Stool Total 1 ml # Bowel Movements 1 1 2 Result Diagram: 05/31/16 1340 05/31/16 1340 Objective Remarks GENERAL: Well developed male in no apparent distress. CARDIOVASCULAR: Regular rate and rhythm. RESPIRATORY: No accessory muscle use. Clear to auscultation bilaterally. GASTROINTESTINAL: Abdomen soft, non-tender, non-distended. NEUROLOGICAL: Awake and alert. Nods head to questions, does not speak. PSYCHIATRIC: Normal mood and affect. Procedures None Date of Insertion: Apr 21, 2016 A/P Problem List: (1) Prerenal azotemia ICD Code: R79.89 Status: Acute Assessment and Plan Upper GI bleeding: Resolved with recurrent rectal bleeding. Hemoglobin stable. GI reevaluated patient on 05/04. Presumed hemorrhoids, continue Anusol HC for total of 2 weeks. Continue PPI. Protein calorie malnutrition: Improving Consulted dietitian who indicated that patient may be converted to bolus feeding Jevity 1.5 w/ bolus 1.5 cans(360ml) @ 0800 and 2000 and 1-can(240ml) @ 1100, 1400 and 1700. Free Water Flush 100ml before and after each bolus feeding Ensure Enlive tid and chocolate pudding tid Prealbumin level 25. Patient desired to eat and speech therapy advised puree diet, thin liquids, but patient has not been eating. Distribution Collection Operator suggests considering appetite stimulant. Dementia with inappropriate behavior, mood disorder improved Patient had inappropriate behavior which is resolved now. He has been very appropriate for a long time now. Patient has been hospitalized for similar events in 2015 Consulted psychiatry for further evaluation, who indicated that this is a frontal lobe dementia Risperdal 0.25 mg during the day, Risperdal 0.5 mg at night. Risperdal was discontinued per POA request. Continue Remeron Psychiatry was reconsulted and is ok with discontinuation of Risperdal, but recommends Haldol 1-2 mg q12 prn for aggressive behavior and agitation. I have not witnessed any behavior like this. Probable seborrheic dermatitis: Flaky skin to the face and neck. -Improved s/p one time dose of Ketoconazole 2% shampoo. -Monitor need for further treatments. Chalazion: Persistent nodule R upper eyelid. There is no evidence of preseptal cellulitis. -Warm compresses were applied but it was greater than 2 weeks without significant improvement. -Ophthalmology was consulted and evaluated patient on 03/26. S/p warm compresses and Tobradex 4 times a day OD x 2 weeks. Patient was intermittently compliant with eyedrops. -No worsening. Follow-up outpatient. Hypotension: Blood pressure labile. Continue Midodrine. Patient on max dose. Increase free water flushes as needed. Pre-renal azotemia: BUN elevated at 23. Patient receives 100ml free water flush before and after each bolus feeding.Free water flushes increased to avoid dehydration- 200 mL between bolus feeds. Relayed to nurse. Stage I decubitus ulcer, sacral skin tear: Continue wound care. Mild obstructive uropathy: Resolved. Appreciate urology recommendations. Suprapubic catheter in place last changed 05/19/16, confirmed with nurse although confusion in documentation. Change monthly. Abdominal pelvis CT 03/06/16 shows resolution of right sided hydronephrosis. Urinary tract infection: Urine culture positive for Proteus mirabilis and GBS on 01/20. Patient completed course of antibiotics. Abdominal pelvis CT 03/06 shows decompressed bladder with circumferential bladder wall thickening and intraluminal air possibly indicating cystitis, but the patient had been afebrile with normal WBC count. UA 05/31 with infection. Urine culture reviewed with gram negative rods. Final ID pending. Will start on ceftriaxone 1g q24 hours. Weakness: Continue physical therapy Nursing staff to get patient up out of bed at least 3 times daily Palliative care evaluation According to palliative care notes family wishes aggressive management, they are expecting him to improve, go to a rehabilitation facility and then improve enough to go home. They are declining hospice. DVT prophylaxis: SCDs. Avoid chemical prophylaxis secondary to GI bleed. Discharge Planning CM continuing to follow for placement. Madeline Ortez Jun 01, 2016 11:40
[2016-06-01] MEDS: FREE WATER G-TUBE SCH (14:00)
[2016-06-01] MEDS: cefTRIAXone INJ 1,000 MG in SODIUM CHLORIDE 0.9% INJ 100 ML IV SCH (15:15)
[2016-06-01 20:00] VITALS: BP_SYST 101; BP_SYST 122; BP_DIAS 68; BP_DIAS 70; PULSE 71; PULSE 72; RESP 18; TEMP 98.6; TEMP 98.7; O2SAT 94; O2SAT 96
[2016-06-01] MEDS: MIRTAZAPINE 15 MG TAB PEG SCH (21:21)
[2016-06-02] MEDS: MIDODRINE 5 MG TAB PO SCH ×3 (06:12→17:04)
[2016-06-02 08:00] VITALS: BP 110/70; PULSE 66; RESP 18; TEMP 96.8; O2SAT 95
[2016-06-02] MEDS: ALLOPURINOL 100 MG TAB PEG SCH (08:52)
[2016-06-02] MEDS: LANSOPRAZOLE SOLUTAB 30 MG TAB PEG SCH (08:52)
[2016-06-02] MEDS: FREE WATER G-TUBE SCH (09:00)
[2016-06-02] MEDS: cefTRIAXone INJ 1,000 MG in SODIUM CHLORIDE 0.9% INJ 100 ML IV SCH (14:17)
--- NOTE | 2016-06-02 17:13 | HHI.PR ---
Subjective Remarks Patient seen and evaluated in follow-up for continue discharge planning. Now with UTI versus colonization. Objective Vitals Vital Signs Date Time Temp Pulse Resp B/P Pulse Ox O2 Delivery O2 Flow Rate FiO2 06/02/16 08:00 96.8 66 18 110/70 95 06/01/16 20:00 98.7 71 18 101/68 96 06/01/16 20:00 98.6 72 18 122/70 94 I/O 06/01/16 06/01/16 06/01/16 06/02/16 06/02/16 06/02/16 07:00 15:00 23:00 07:00 15:00 23:00 Intake Total 1740 ml 440 ml 80 ml 1440 ml 100 ml Output Total 650 ml 500 ml 400 ml 400 ml Balance -650 ml 1740 ml -60 ml -320 ml 1040 ml 100 ml Intake Oral 80 ml 0 ml IV Total 100 ml 100 ml Tube Feeding 840 ml 240 ml 840 ml Other 800 ml 200 ml 600 ml Output Urine Total 650 ml 500 ml 400 ml 400 ml # Bowel Movements 2 1 3 1 Result Diagram: 05/31/16 1340 05/31/16 1340 Objective Remarks GENERAL: This is a frail and ill-appearing gentleman CARDIOVASCULAR: Regular rate and rhythm without murmurs, gallops, or rubs. RESPIRATORY: Clear to auscultation. Breath sounds equal bilaterally. No wheezes , rales, or rhonchi. GASTROINTESTINAL: victor/PEG tube Abdomen soft, non-tender, nondistended. Normal active bowel sounds MUSCULOSKELETAL: Extremities without clubbing, cyanosis, or edema. NEURO: Alert & Oriented x4 to person, place, time, situation. Moves all ext x4 Procedures None Date of Insertion: Apr 21, 2016 A/P Problem List: (1) Prerenal azotemia ICD Code: R79.89 Status: Acute Discharge Planning Patient will need long-term care. Case management aware of barriers to discharge Catheter changed 05/13 Continue with Rocephin and follow culture results for mixed leticia Aster Chau MD Jun 02, 2016 17:13
[2016-06-02 20:00] VITALS: BP 96/57; PULSE 77; RESP 18; TEMP 97.8; O2SAT 96
[2016-06-02] MEDS: MIRTAZAPINE 15 MG TAB PEG SCH (21:27)
[2016-06-03] MEDS: MIDODRINE 5 MG TAB PO SCH ×3 (06:08→17:12)
[2016-06-03 08:14] VITALS: BP 124/96; PULSE 89; RESP 21; TEMP 98; O2SAT 96
[2016-06-03] MEDS: ALLOPURINOL 100 MG TAB PEG SCH (08:40)
[2016-06-03] MEDS: LANSOPRAZOLE SOLUTAB 30 MG TAB PEG SCH (08:40)
[2016-06-03] MEDS: FREE WATER G-TUBE SCH (08:46)
--- NOTE | 2016-06-03 11:44 | HHI.PR ---
Subjective Remarks Follow-up for UTI. Patient denies any fevers, nausea, or abdominal pain. Objective Vitals Vital Signs Date Time Temp Pulse Resp B/P Pulse Ox O2 Delivery O2 Flow Rate FiO2 06/03/16 08:14 98.0 89 21 124/96 96 06/02/16 20:00 97.8 77 18 96/57 96 I/O 06/02/16 06/02/16 06/02/16 06/03/16 06/03/16 06/03/16 07:00 15:00 23:00 07:00 15:00 23:00 Intake Total 80 ml 1440 ml 100 ml 560 ml Output Total 400 ml 400 ml 400 ml 400 ml Balance -320 ml 1040 ml -300 ml -400 ml 560 ml Intake Oral 80 ml 0 ml IV Total 100 ml Tube Feeding 840 ml 360 ml Other 600 ml 200 ml Output Urine Total 400 ml 400 ml 400 ml 400 ml # Bowel Movements 3 1 1 1 Result Diagram: 05/31/16 1340 05/31/16 1340 Objective Remarks GENERAL: Well developed male in no apparent distress. CARDIOVASCULAR: Regular rate and rhythm. RESPIRATORY: No accessory muscle use. Clear to auscultation bilaterally. GASTROINTESTINAL: Abdomen soft, non-tender, non-distended. NEUROLOGICAL: Awake and alert. Nods head to questions, does not speak. PSYCHIATRIC: Normal mood and affect. Procedures None Urinary Catheter: Yes Assessment to: Continue Soto insert reason: Prolonged Immobilization Date of Insertion: Apr 21, 2016 Vascular Central Line Catheter: No A/P Problem List: (1) Prerenal azotemia ICD Code: R79.89 Status: Acute Assessment and Plan Upper GI bleeding: Resolved with recurrent rectal bleeding. Hemoglobin stable. GI reevaluated patient on 05/04. Presumed hemorrhoids, continue Anusol HC for total of 2 weeks. Continue PPI. Protein calorie malnutrition: Improving Consulted dietitian who indicated that patient may be converted to bolus feeding Jevity 1.5 w/ bolus 1.5 cans(360ml) @ 0800 and 2000 and 1-can(240ml) @ 1100, 1400 and 1700. Free Water Flush 100ml before and after each bolus feeding Ensure Enlive tid and chocolate pudding tid Prealbumin level 25. Patient desired to eat and speech therapy advised puree diet, thin liquids, but patient has not been eating. Purchasing Administrator suggests considering appetite stimulant. Dementia with inappropriate behavior, mood disorder improved Patient had inappropriate behavior which is resolved now. He has been very appropriate for a long time now. Patient has been hospitalized for similar events in 2014 Consulted psychiatry for further evaluation, who indicated that this is a frontal lobe dementia Risperdal 0.25 mg during the day, Risperdal 0.5 mg at night. Risperdal was discontinued per POA request. Continue Remeron Psychiatry was reconsulted and is ok with discontinuation of Risperdal, but recommends Haldol 1-2 mg q12 prn for aggressive behavior and agitation. I have not witnessed any behavior like this. Probable seborrheic dermatitis: Flaky skin to the face and neck. -Improved s/p one time dose of Ketoconazole 2% shampoo. -Monitor need for further treatments. Chalazion: Persistent nodule R upper eyelid. There is no evidence of preseptal cellulitis. -Warm compresses were applied but it was greater than 2 weeks without significant improvement. -Ophthalmology was consulted and evaluated patient on 03/26. S/p warm compresses and Tobradex 4 times a day OD x 2 weeks. Patient was intermittently compliant with eyedrops. -No worsening. Follow-up outpatient. Hypotension: Blood pressure labile. Continue Midodrine. Patient on max dose. Increase free water flushes as needed. Pre-renal azotemia: BUN elevated at 23. Patient receives 100ml free water flush before and after each bolus feeding.Free water flushes increased to avoid dehydration- 200 mL between bolus feeds. Relayed to nurse. Stage I decubitus ulcer, sacral skin tear: Continue wound care. Mild obstructive uropathy: Resolved. Appreciate urology recommendations. Suprapubic catheter in place last changed 05/19/16, confirmed with nurse although confusion in documentation. Change monthly. Abdominal pelvis CT 03/06/16 shows resolution of right sided hydronephrosis. Urinary tract infection: Urine culture positive for Proteus mirabilis and GBS on 01/20. Patient completed course of antibiotics. Abdominal pelvis CT 03/06 shows decompressed bladder with circumferential bladder wall thickening and intraluminal air possibly indicating cystitis, but the patient had been afebrile with normal WBC count. UA 05/31 with infection. Preliminary urine culture reviewed with gram negative rods and patient was started on ceftriaxone 1g q24 hours on 06/01/16. Urine culture reveals Serratia marcescens susceptible to Ceftriaxone; GERI reviewed, continue. There is another gram-negative bandar present along with Group D enterococcus, but ID and GERI still pending on those. Patient may be colonized due to chronic catheter use. Weakness: Continue physical therapy Nursing staff to get patient up out of bed at least 3 times daily Palliative care evaluation According to palliative care notes family wishes aggressive management, they are expecting him to improve, go to a rehabilitation facility and then improve enough to go home. They are declining hospice. DVT prophylaxis: SCDs. Avoid chemical prophylaxis secondary to GI bleed. Discharge Planning CM continuing to follow for placement. Madeline Ortez Jun 03, 2016 11:44
[2016-06-03] MEDS: cefTRIAXone INJ 1,000 MG in SODIUM CHLORIDE 0.9% INJ 100 ML IV SCH (15:02)
[2016-06-03 20:00] VITALS: BP 100/63; PULSE 71; RESP 18; TEMP 97.3; O2SAT 96
[2016-06-03] MEDS: MIRTAZAPINE 15 MG TAB PEG SCH (21:08)
[2016-06-04] VITALS: BP 99/68; PULSE 74; RESP 18; TEMP 96; O2SAT 95
[2016-06-04 04:30] VITALS: BP 98/63; PULSE 68; RESP 18; TEMP 97.2; O2SAT 96
[2016-06-04] MEDS: MIDODRINE 5 MG TAB PO SCH ×3 (05:26→17:00)
[2016-06-04 08:00] VITALS: BP 111/68; PULSE 64; RESP 18; TEMP 96; O2SAT 93
[2016-06-04] MEDS: FREE WATER G-TUBE SCH (09:00)
[2016-06-04] MEDS: LANSOPRAZOLE SOLUTAB 30 MG TAB PEG SCH (09:00)
[2016-06-04] MEDS: ALLOPURINOL 100 MG TAB PEG SCH (09:00)
--- NOTE | 2016-06-04 11:03 | HHI.PR ---
Subjective Remarks Patient seen and examined today. Patient denies any new complaints. No change in clinical status. Awaiting case management discharge planning Objective Vitals Vital Signs Date Time Temp Pulse Resp B/P Pulse Ox O2 Delivery O2 Flow Rate FiO2 06/04/16 08:00 96.0 64 18 111/68 93 06/04/16 04:30 97.2 68 18 98/63 96 06/04/16 00:00 96.0 74 18 99/68 95 06/03/16 20:00 97.3 71 18 100/63 96 I/O 06/03/16 06/03/16 06/03/16 06/04/16 06/04/16 06/04/16 07:00 15:00 23:00 07:00 15:00 23:00 Intake Total 1620 ml 560 ml Output Total 400 ml 400 ml 600 ml Balance -400 ml 1220 ml 560 ml -600 ml Intake Oral 180 ml IV Total 120 ml Tube Feeding 840 ml 240 ml Other 600 ml 200 ml Output Urine Total 400 ml 400 ml 600 ml # Bowel Movements 1 0 Result Diagram: 05/31/16 1340 05/31/16 1340 Objective Remarks GENERAL: Well-developed, well-nourished, in no acute distress. Patient awake and alert HEENT: Head is normocephalic without any lesions or masses noted. Facial features are symmetric. Eyes: Extraocular muscles are intact. Conjunctivae were clear. NECK: Trachea midline no deviation. CARDIAC: Regular rhythm, regular rate. S1/S2 are heard. No murmurs gallops or rubs. LUNGS: Clear to auscultation bilaterally. No wheeze, rhonchi or rales. No use of accessory muscles on inspiration or expiration. ABDOMEN: Soft, nontender. Nondistended. Bowel sounds heard in all 4 quadrants. No organomegaly or masses. Negative rebound, negative guarding, suprapubic catheter in place, PEG tube noted EXTREMITIES: No edema, pulses are equal bilaterally. No cyanosis or clubbing NEUROLOGY: Mood and affect appear appropriate. Cranial nerves II through XII grossly intact. Moving all extremities Procedures None Urinary Catheter: Yes Assessment to: Remove Soto insert reason: Prolonged Immobilization Date of Insertion: Apr 18, 2016 Date of Removal: Jun 04, 2016 Vascular Central Line Catheter: No A/P Assessment and Plan Recurrent urinary tract infection Replace Soto today Obtain clean sample after Soto replaced Urine culture with multiple organisms Serratia, Pseudomonas, enterococcus, all of which are new bacteria from previous infections. Likely secondary to suprapubic catheter. Patient started on Rocephin, which would be in adequate coverage due to the multiple organism, however I believe is contamination. Considering patient is asymptomatic, afebrile, no leukocytosis. Await addition of antibiotics until repeat urinalysis performed. GI bleed with presenting of Upper GI bleed, patient with intermittent rectal bleeding: Resolved Hemoglobin continues to remain stable GI was following and reevaluated on 05/04/16 Presumed hemorrhoids, continue Anusol HC for 2 weeks Continue PPI. Protein calorie malnutrition: Improving Consulted dietitian who indicated that patient may be converted to bolus feeding Jevity 1.5, 6 cans per day. 1.5 cans that 0800 and 2000, 1 can at 1100, 1400, 1700 Prealbumin level 24 Dementia with inappropriate behavior, mood disorder improved patient more somnolent today, likely secondary to medication use, patient is afebrile, no tachycardia, no signs of infection. 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 Continue monitor blood pressure Continue Midodrine. Mild obstructive uropathy: Resolved. Appreciate urology recommendations. Suprapubic catheter in place, last changed 05/19/16. To be changed monthly, Abdominal pelvis CT 03/06/16 shows resolution of right sided hydronephrosis. Elevated BUN, stable Continue fluid flushes via PEG tube to avoid dehydration. Stage I decubitus ulcer, sacral skin tear: Continue wound care. Parkinson's disease: Patient has dementia and resting tremor. Chronic, stable. Weakness: Continue physical therapy Nursing staff to get patient up out of bed at least 3 times daily Palliative care evaluation According to palliative care notes. Family wishes aggressive management, they are expecting him to improve, go to a rehabilitation facility and then improve enough to go home. They are deferring hospice. DVT prophylaxis: SCDs. Avoid chemical prophylaxis secondary to GI bleed. Discharge Planning Discharge planning to detention facility once arrangements made by case management Jaguar Walker Jun 04, 2016 11:03
[2016-06-04 11:59] LABS: BLOOD, URINE LARGE (NEG); GLUCOSE,URINE NEG (NEG); KETONE, URINE NEG (NEG); NITRITE,URINE NEG (NEG); PH, URINE 8.5 (5.0-8.5)
[2016-06-04 12:05] LABS: URINE COLOR YELLOW (YELLW/STRAW)
[2016-06-04 12:06] LABS: METHOD OF COLLECTION CLEAN CATCH; WBC, URINE 100-200 /hpf (0-5)
[2016-06-04 12:07] LABS: TRANSITIONAL EPI CELLS, URINE 0-5 /hpf
[2016-06-04 12:08] LABS: BACTERIA, URINE FEW /hpf; COMMENT (UR) CULTURE INDICATED; CULTURE IF INDICATED CULTURE INDICATED
[2016-06-04] MEDS: cefTRIAXone INJ 1,000 MG in SODIUM CHLORIDE 0.9% INJ 100 ML IV SCH (14:17)
[2016-06-04 19:15] VITALS: BP 106/64; PULSE 88; RESP 20; TEMP 98; O2SAT 93
[2016-06-04 20:00] VITALS: BP 117/70; PULSE 88; RESP 20; TEMP 98.8; O2SAT 97
[2016-06-04] MEDS: MIRTAZAPINE 15 MG TAB PEG SCH (21:22)
[2016-06-05 08:00] VITALS: BP 107/68; PULSE 78; RESP 18; TEMP 96.6; O2SAT 95
[2016-06-05] MEDS: ALLOPURINOL 100 MG TAB PEG SCH (08:50)
[2016-06-05] MEDS: FREE WATER G-TUBE SCH (08:50)
[2016-06-05] MEDS: MIDODRINE 5 MG TAB PO SCH ×3 (08:50→17:46)
[2016-06-05] MEDS: LANSOPRAZOLE SOLUTAB 30 MG TAB PEG SCH (08:50)
--- NOTE | 2016-06-05 09:31 | HHI.PR ---
Subjective Remarks Patient seen and examined today. Patient denies any new complaints. No change in clinical status. Awaiting case management discharge planning. Objective Vitals Vital Signs Date Time Temp Pulse Resp B/P Pulse Ox O2 Delivery O2 Flow Rate FiO2 06/05/16 08:00 96.6 78 18 107/68 95 06/04/16 20:00 98.8 88 20 117/70 97 06/04/16 20:00 98.8 88 20 117/70 97 06/04/16 19:15 98.0 88 20 106/64 93 I/O 06/04/16 06/04/16 06/04/16 06/05/16 06/05/16 06/05/16 07:00 15:00 23:00 07:00 15:00 23:00 Intake Total 0 ml 640 ml 0 ml Output Total 600 ml 300 ml 200 ml 450 ml Balance -600 ml -300 ml 440 ml -450 ml Intake Oral 0 ml 100 ml 0 ml Tube Feeding 360 ml Other 180 ml Output Urine Total 600 ml 300 ml 200 ml 450 ml # Bowel Movements 0 1 1 Objective Remarks GENERAL: Well-developed, well-nourished, in no acute distress. Patient awake and alert HEENT: Head is normocephalic without any lesions or masses noted. Facial features are symmetric. Eyes: Extraocular muscles are intact. Conjunctivae were clear. NECK: Trachea midline no deviation. CARDIAC: Regular rhythm, regular rate. S1/S2 are heard. No murmurs gallops or rubs. LUNGS: Clear to auscultation bilaterally. No wheeze, rhonchi or rales. No use of accessory muscles on inspiration or expiration. ABDOMEN: Soft, nontender. Nondistended. Bowel sounds heard in all 4 quadrants. No organomegaly or masses. Negative rebound, negative guarding, suprapubic catheter in place, PEG tube noted EXTREMITIES: No edema, pulses are equal bilaterally. No cyanosis or clubbing NEUROLOGY: Mood and affect appear appropriate. Cranial nerves II through XII grossly intact. Moving all extremities Procedures None Urinary Catheter: No Date of Insertion: Apr 18, 2016 Date of Removal: Jun 04, 2016 Vascular Central Line Catheter: No A/P Assessment and Plan Recurrent urinary tract infection Replaced Soto Obtained clean sample which is had mild improvement Urine culture with multiple organisms Serratia, Pseudomonas, enterococcus, all of which are new bacteria from previous infections. Likely secondary to suprapubic catheter. Patient started on Rocephin, which would be in adequate coverage due to the multiple organism, however I believe is contamination. Considering patient is asymptomatic, afebrile, no leukocytosis. Await addition of antibiotics until repeat culture performed GI bleed with presenting of Upper GI bleed, patient with intermittent rectal bleeding: Resolved Hemoglobin continues to remain stable GI was following and reevaluated on 05/04/16 Presumed hemorrhoids, continue Anusol HC for 2 weeks Continue PPI. Protein calorie malnutrition: Improving Consulted dietitian who indicated that patient may be converted to bolus feeding Jevity 1.5, 6 cans per day. 1.5 cans that 0800 and 2000, 1 can at 1100, 1400, 1700 Prealbumin level 24 Dementia with inappropriate behavior, mood disorder improved patient more somnolent today, likely secondary to medication use, patient is afebrile, no tachycardia, no signs of infection. 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 Continue monitor blood pressure Continue Midodrine. Mild obstructive uropathy: Resolved. Appreciate urology recommendations. Suprapubic catheter in place, last changed 05/19/16. To be changed monthly, Abdominal pelvis CT 03/06/16 shows resolution of right sided hydronephrosis. Elevated BUN, stable Continue fluid flushes via PEG tube to avoid dehydration. Stage I decubitus ulcer, sacral skin tear: Continue wound care. Parkinson's disease: Patient has dementia and resting tremor. Chronic, stable. Weakness: Continue physical therapy Nursing staff to get patient up out of bed at least 3 times daily Palliative care evaluation According to palliative care notes. Family wishes aggressive management, they are expecting him to improve, go to a rehabilitation facility and then improve enough to go home. They are deferring hospice. DVT prophylaxis: SCDs. Avoid chemical prophylaxis secondary to GI bleed. Discharge Planning Discharge planning to half-way facility once arrangements made by case management Jaguar Walker Jun 05, 2016 09:31
[2016-06-05] MEDS: cefTRIAXone INJ 1,000 MG in SODIUM CHLORIDE 0.9% INJ 100 ML IV SCH (16:08)
[2016-06-05 20:00] VITALS: BP 97/60; PULSE 56; RESP 16; TEMP 98.4; O2SAT 94
[2016-06-05] MEDS: MIRTAZAPINE 15 MG TAB PEG SCH (21:33)
[2016-06-06 08:00] VITALS: BP 104/65; PULSE 77; RESP 19; TEMP 96.7; O2SAT 94
[2016-06-06] MEDS: LANSOPRAZOLE SOLUTAB 30 MG TAB PEG SCH (08:32)
[2016-06-06] MEDS: FREE WATER G-TUBE SCH (08:33)
[2016-06-06] MEDS: ALLOPURINOL 100 MG TAB PEG SCH (08:33)
[2016-06-06] MEDS: MIDODRINE 5 MG TAB PO SCH ×3 (08:33→16:37)
--- NOTE | 2016-06-06 09:17 | HHI.PR ---
Subjective Remarks Patient seen and examined today. Patient denies any new complaints. No change in clinical status. Awaiting case management for discharge planning. Objective Vitals Vital Signs Date Time Temp Pulse Resp B/P Pulse Ox O2 Delivery O2 Flow Rate FiO2 06/05/16 20:00 98.4 56 16 97/60 94 I/O 06/05/16 06/05/16 06/05/16 06/06/16 06/06/16 06/06/16 07:00 15:00 23:00 07:00 15:00 23:00 Intake Total 0 ml 0 ml 2740 ml Output Total 450 ml 400 ml 450 ml 800 ml Balance -450 ml -400 ml 2290 ml -800 ml Intake Oral 0 ml 0 ml IV Total 250 ml Tube Feeding 1510 ml Other 980 ml Output Urine Total 450 ml 400 ml 450 ml 800 ml # Bowel Movements 2 1 3 Objective Remarks GENERAL: Well-developed, well-nourished, in no acute distress. Patient awake and alert HEENT: Head is normocephalic without any lesions or masses noted. Facial features are symmetric. Eyes: Extraocular muscles are intact. Conjunctivae were clear. NECK: Trachea midline no deviation. CARDIAC: Regular rhythm, regular rate. S1/S2 are heard. No murmurs gallops or rubs. LUNGS: Clear to auscultation bilaterally. No wheeze, rhonchi or rales. No use of accessory muscles on inspiration or expiration. ABDOMEN: Soft, nontender. Nondistended. Bowel sounds heard in all 4 quadrants. No organomegaly or masses. Negative rebound, negative guarding, suprapubic catheter in place, PEG tube noted EXTREMITIES: No edema, pulses are equal bilaterally. No cyanosis or clubbing NEUROLOGY: Mood and affect appear appropriate. Cranial nerves II through XII grossly intact. Moving all extremities Procedures None Urinary Catheter: Yes Assessment to: Continue Soto insert reason: Prolonged Immobilization Date of Insertion: May 04, 2016 Vascular Central Line Catheter: No A/P Assessment and Plan Recurrent urinary tract infection Replaced Soto Obtained clean sample which is had mild improvement Urine culture with multiple organisms Serratia, Pseudomonas, enterococcus, all of which are new bacteria from previous infections. Likely secondary to suprapubic catheter. Patient started on Rocephin, which would be in adequate coverage due to the multiple organism, however I believe is contamination. Considering patient is asymptomatic, afebrile, no leukocytosis. Repeat culture after Soto replaced shows 10-50,000 colonies mixed leticia Discontinue antibiotics GI bleed with presenting of Upper GI bleed, patient with intermittent rectal bleeding: Resolved Hemoglobin continues to remain stable GI was following and reevaluated on 05/04/16 Presumed hemorrhoids, continue Anusol HC for 2 weeks Continue PPI. Protein calorie malnutrition: Improving Consulted dietitian who indicated that patient may be converted to bolus feeding Jevity 1.5, 6 cans per day. 1.5 cans that 0800 and 2000, 1 can at 1100, 1400, 1700 Prealbumin level 24 Dementia with inappropriate behavior, mood disorder improved patient more somnolent today, likely secondary to medication use, patient is afebrile, no tachycardia, no signs of infection. 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 Continue monitor blood pressure Continue Midodrine. Mild obstructive uropathy: Resolved. Appreciate urology recommendations. Suprapubic catheter in place, last changed 05/19/16. To be changed monthly, Abdominal pelvis CT 03/06/16 shows resolution of right sided hydronephrosis. Elevated BUN, stable Continue fluid flushes via PEG tube to avoid dehydration. Stage I decubitus ulcer, sacral skin tear: Continue wound care. Parkinson's disease: Patient has dementia and resting tremor. Chronic, stable. Weakness: Continue physical therapy Nursing staff to get patient up out of bed at least 3 times daily Palliative care evaluation According to palliative care notes. Family wishes aggressive management, they are expecting him to improve, go to a rehabilitation facility and then improve enough to go home. They are deferring hospice. DVT prophylaxis: SCDs. Avoid chemical prophylaxis secondary to GI bleed. Discharge Planning Discharge planning to longterm facility once arrangements made by case management Jaguar Walker Jun 06, 2016 09:17
[2016-06-06 11:16] VITALS: BP 111/65; PULSE 75
[2016-06-06 16:46] VITALS: BP 115/70; PULSE 64
[2016-06-06 20:00] VITALS: BP 102/61; PULSE 72; RESP 18; TEMP 98.5; O2SAT 94
[2016-06-06] MEDS: MIRTAZAPINE 15 MG TAB PEG SCH (21:14)
[2016-06-07 05:55] VITALS: BP 98/64; PULSE 69; RESP 18; TEMP 98.7; O2SAT 95
[2016-06-07] MEDS: MIDODRINE 5 MG TAB PO SCH ×3 (06:00→17:34)
[2016-06-07] MEDS: FREE WATER G-TUBE SCH (07:45)
[2016-06-07] MEDS: LANSOPRAZOLE SOLUTAB 30 MG TAB PEG SCH (07:46)
[2016-06-07] MEDS: ALLOPURINOL 100 MG TAB PEG SCH (07:46)
[2016-06-07 08:00] VITALS: BP 120/79; PULSE 72; RESP 17; TEMP 97.1; O2SAT 96
--- NOTE | 2016-06-07 08:47 | HHI.PR ---
Subjective Remarks Patient seen and examined today. Patient denies any new complaints. No change in clinical status. Awaiting case management discharge planning. Objective Vitals Vital Signs Date Time Temp Pulse Resp B/P Pulse Ox O2 Delivery O2 Flow Rate FiO2 06/07/16 08:00 97.1 72 17 120/79 96 06/07/16 05:55 98.7 69 18 98/64 95 06/06/16 20:00 98.5 72 18 102/61 94 06/06/16 16:46 64 115/70 06/06/16 11:16 75 111/65 I/O 06/06/16 06/06/16 06/06/16 06/07/16 06/07/16 06/07/16 07:00 15:00 23:00 07:00 15:00 23:00 Intake Total 1440 ml 440 ml 120 ml Output Total 800 ml 900 ml 1050 ml Balance -800 ml 1440 ml -460 ml -930 ml Intake Oral 120 ml Tube Feeding 840 ml 240 ml Other 600 ml 200 ml Output Urine Total 800 ml 900 ml 1050 ml # Bowel Movements 3 1 Objective Remarks GENERAL: Well-developed, well-nourished, in no acute distress. Patient awake and alert HEENT: Head is normocephalic without any lesions or masses noted. Facial features are symmetric. Eyes: Extraocular muscles are intact. Conjunctivae were clear. NECK: Trachea midline no deviation. CARDIAC: Regular rhythm, regular rate. S1/S2 are heard. No murmurs gallops or rubs. LUNGS: Clear to auscultation bilaterally. No wheeze, rhonchi or rales. No use of accessory muscles on inspiration or expiration. ABDOMEN: Soft, nontender. Nondistended. Bowel sounds heard in all 4 quadrants. No organomegaly or masses. Negative rebound, negative guarding, suprapubic catheter in place, PEG tube noted EXTREMITIES: No edema, pulses are equal bilaterally. No cyanosis or clubbing NEUROLOGY: Mood and affect appear appropriate. Cranial nerves II through XII grossly intact. Moving all extremities Procedures None Urinary Catheter: Yes Assessment to: Continue Soto insert reason: Obstruction/Retention Date of Insertion: May 04, 2016 Vascular Central Line Catheter: No A/P Assessment and Plan Dementia with inappropriate behavior, mood disorder improved patient more somnolent today, likely secondary to medication use, patient is afebrile, no tachycardia, no signs of infection. Patient has not had any recurrent inappropriate behavior since increasing the Risperdal Patient has been hospitalized for similar events in 2015 Consulted psychiatry for further evaluation, who indicated that this is a frontal lobe dementia Risperdal discontinued at family's request Continue Remeron Parkinson's disease: Patient has dementia and resting tremor. Chronic, stable. Weakness: Continue physical therapy Nursing staff to get patient up out of bed at least 3 times daily GI bleed with presenting of Upper GI bleed, patient with intermittent rectal bleeding: Resolved Hemoglobin continues to remain stable GI was following and reevaluated on 05/04/16 Presumed hemorrhoids, continue Anusol HC for 2 weeks Continue PPI. Protein calorie malnutrition: Improving Consulted dietitian who indicated that patient may be converted to bolus feeding Jevity 1.5, 6 cans per day. 1.5 cans that 0800 and 2000, 1 can at 1100, 1400, 1700 Prealbumin level 24 Hypotension with episodes of hypertension: Stable Blood pressure labile. Continue monitor blood pressure Continue Midodrine. Mild obstructive uropathy: Resolved. Appreciate urology recommendations. Suprapubic catheter in place, last changed 05/19/16. To be changed monthly, Abdominal pelvis CT 03/06/16 shows resolution of right sided hydronephrosis. Recurrent urinary tract infection Replaced Soto Obtained clean sample which is had mild improvement Urine culture with multiple organisms Serratia, Pseudomonas, enterococcus, all of which are new bacteria from previous infections. Likely secondary to suprapubic catheter. Patient started on Rocephin, which would be in adequate coverage due to the multiple organism, however I believe is contamination. Considering patient is asymptomatic, afebrile, no leukocytosis. Repeat culture after Soto replaced shows 10-50,000 colonies mixed leticia Discontinue antibiotics Elevated BUN, stable Continue fluid flushes via PEG tube to avoid dehydration. Stage I decubitus ulcer, sacral skin tear: Continue wound care. Palliative care evaluation According to palliative care notes. Family wishes aggressive management, they are expecting him to improve, go to a rehabilitation facility and then improve enough to go home. They are deferring hospice. DVT prophylaxis: SCDs. Avoid chemical prophylaxis secondary to GI bleed. Discharge Planning Discharge planning to alf facility once arrangements made by case management Jaguar Walker Jun 07, 2016 08:47
[2016-06-07] MEDS: MIRTAZAPINE 15 MG TAB PEG SCH (20:19)
[2016-06-07 20:41] VITALS: BP 103/71; PULSE 78; RESP 18; TEMP 97.3; O2SAT 98
[2016-06-08] MEDS: MIDODRINE 5 MG TAB PO SCH ×3 (06:23→17:24)
[2016-06-08] MEDS: ALLOPURINOL 100 MG TAB PEG SCH (07:47)
[2016-06-08] MEDS: LANSOPRAZOLE SOLUTAB 30 MG TAB PEG SCH (07:47)
[2016-06-08] MEDS: FREE WATER G-TUBE SCH (07:47)
[2016-06-08 08:00] VITALS: BP 128/88; PULSE 99; RESP 20; TEMP 97.4; O2SAT 93
--- NOTE | 2016-06-08 10:05 | HHI.PR ---
Subjective Remarks Patient seen and examined today. Patient denies any new complaints. No change in clinical status. Awaiting case management discharge planning Objective Vitals Vital Signs Date Time Temp Pulse Resp B/P Pulse Ox O2 Delivery O2 Flow Rate FiO2 06/08/16 08:00 97.4 99 20 128/88 93 06/07/16 20:41 97.3 78 18 103/71 98 I/O 06/07/16 06/07/16 06/07/16 06/08/16 06/08/16 06/08/16 07:00 15:00 23:00 07:00 15:00 23:00 Intake Total 120 ml 900 ml 540 ml Output Total 1050 ml 625 ml 700 ml Balance -930 ml 900 ml -85 ml -700 ml Intake Oral 120 ml Tube Feeding 700 ml 360 ml Other 200 ml 180 ml Output Urine Total 1050 ml 625 ml 700 ml # Bowel Movements 1 2 0 Objective Remarks GENERAL: Well-developed, well-nourished, in no acute distress. Patient awake and alert HEENT: Head is normocephalic without any lesions or masses noted. Facial features are symmetric. Eyes: Extraocular muscles are intact. Conjunctivae were clear. NECK: Trachea midline no deviation. CARDIAC: Regular rhythm, regular rate. S1/S2 are heard. No murmurs gallops or rubs. LUNGS: Clear to auscultation bilaterally. No wheeze, rhonchi or rales. No use of accessory muscles on inspiration or expiration. ABDOMEN: Soft, nontender. Nondistended. Bowel sounds heard in all 4 quadrants. No organomegaly or masses. Negative rebound, negative guarding, suprapubic catheter in place, PEG tube noted EXTREMITIES: No edema, pulses are equal bilaterally. No cyanosis or clubbing NEUROLOGY: Mood and affect appear appropriate. Cranial nerves II through XII grossly intact. Moving all extremities Procedures None Urinary Catheter: Yes (suprapubic catheter) Assessment to: Continue Soto insert reason: Obstruction/Retention Date of Insertion: May 04, 2016 Vascular Central Line Catheter: No A/P Assessment and Plan Dementia with inappropriate behavior, mood disorder improved patient more somnolent today, likely secondary to medication use, patient is afebrile, no tachycardia, no signs of infection. Patient has not had any recurrent inappropriate behavior since increasing the Risperdal Patient has been hospitalized for similar events in 2015 Consulted psychiatry for further evaluation, who indicated that this is a frontal lobe dementia Risperdal discontinued at family's request Continue Remeron Parkinson's disease: Patient has dementia and resting tremor. Chronic, stable. Weakness: Continue physical therapy Nursing staff to get patient up out of bed at least 3 times daily GI bleed with presenting of Upper GI bleed, patient with intermittent rectal bleeding: Resolved Hemoglobin continues to remain stable GI was following and reevaluated on 05/04/16 Presumed hemorrhoids, continue Anusol HC for 2 weeks Continue PPI. Protein calorie malnutrition: Improving Consulted dietitian who indicated that patient may be converted to bolus feeding Jevity 1.5, 6 cans per day. 1.5 cans that 0800 and 2000, 1 can at 1100, 1400, 1700 Prealbumin level 24 Hypotension with episodes of hypertension: Stable Blood pressure labile. Continue monitor blood pressure Continue Midodrine. Mild obstructive uropathy: Resolved. Appreciate urology recommendations. Suprapubic catheter in place, last changed 05/19/16. To be changed monthly, Abdominal pelvis CT 03/06/16 shows resolution of right sided hydronephrosis. Recurrent urinary tract infection Replaced Soto Obtained clean sample which is had mild improvement Urine culture with multiple organisms Serratia, Pseudomonas, enterococcus, all of which are new bacteria from previous infections. Likely secondary to suprapubic catheter. Patient started on Rocephin, which would be in adequate coverage due to the multiple organism, however I believe is contamination. Considering patient is asymptomatic, afebrile, no leukocytosis. Repeat culture after Soto replaced shows 10-50,000 colonies mixed leticia Discontinue antibiotics Elevated BUN, stable Continue fluid flushes via PEG tube to avoid dehydration. Stage I decubitus ulcer, sacral skin tear: Continue wound care. Palliative care evaluation According to palliative care notes. Family wishes aggressive management, they are expecting him to improve, go to a rehabilitation facility and then improve enough to go home. They are deferring hospice. DVT prophylaxis: SCDs. Avoid chemical prophylaxis secondary to GI bleed. [facility]charge [facility] once arrangements made by case management Jaguar Walker Jun 08, 2016 10:05
[2016-06-08 20:00] VITALS: BP 101/75; PULSE 72; RESP 24; TEMP 97.2; O2SAT 95
[2016-06-08] MEDS: MIRTAZAPINE 15 MG TAB PEG SCH (21:24)
[2016-06-09] MEDS: MIDODRINE 5 MG TAB PO SCH ×3 (06:28→17:09)
[2016-06-09 08:00] VITALS: BP 105/71; PULSE 73; RESP 20; TEMP 98.4; O2SAT 97
[2016-06-09] MEDS: FREE WATER G-TUBE SCH (09:00)
[2016-06-09] MEDS: LANSOPRAZOLE SOLUTAB 30 MG TAB PEG SCH (09:23)
[2016-06-09] MEDS: ALLOPURINOL 100 MG TAB PEG SCH (09:23)
--- NOTE | 2016-06-09 10:18 | HHI.PR ---
Subjective Remarks Patient seen and examined today. Patient denies any new complaints. No change in clinical status. Awaiting case management for discharge planning. Objective Vitals Vital Signs Date Time Temp Pulse Resp B/P Pulse Ox O2 Delivery O2 Flow Rate FiO2 06/09/16 08:00 98.4 73 20 105/71 97 06/08/16 20:00 97.2 72 24 101/75 95 I/O 06/08/16 06/08/16 06/08/16 06/09/16 06/09/16 06/09/16 07:00 15:00 23:00 07:00 15:00 23:00 Intake Total 50 ml Output Total 700 ml 150 ml 250 ml Balance -700 ml 50 ml -150 ml -250 ml Intake Oral 50 ml Output Urine Total 700 ml 150 ml 250 ml # Bowel Movements 0 1 1 Objective Remarks GENERAL: Well-developed, well-nourished, in no acute distress. Patient awake and alert HEENT: Head is normocephalic without any lesions or masses noted. Facial features are symmetric. Eyes: Extraocular muscles are intact. Conjunctivae were clear. NECK: Trachea midline no deviation. CARDIAC: Regular rhythm, regular rate. S1/S2 are heard. No murmurs gallops or rubs. LUNGS: Clear to auscultation bilaterally. No wheeze, rhonchi or rales. No use of accessory muscles on inspiration or expiration. ABDOMEN: Soft, nontender. Nondistended. Bowel sounds heard in all 4 quadrants. No organomegaly or masses. Negative rebound, negative guarding, suprapubic catheter in place, PEG tube noted EXTREMITIES: No edema, pulses are equal bilaterally. No cyanosis or clubbing NEUROLOGY: Mood and affect appear appropriate. Cranial nerves II through XII grossly intact. Moving all extremities Procedures None Urinary Catheter: Yes Assessment to: Continue Soto insert reason: Obstruction/Retention Date of Insertion: May 04, 2016 Vascular Central Line Catheter: No A/P Assessment and Plan Dementia with inappropriate behavior, mood disorder improved patient more somnolent today, likely secondary to medication use, patient is afebrile, no tachycardia, no signs of infection. Patient has not had any recurrent inappropriate behavior since increasing the Risperdal Patient has been hospitalized for similar events in 2015 Consulted psychiatry for further evaluation, who indicated that this is a frontal lobe dementia Risperdal discontinued at family's request Continue Remeron Parkinson's disease: Patient has dementia and resting tremor. Chronic, stable. Weakness: Continue physical therapy Nursing staff to get patient up out of bed at least 3 times daily GI bleed with presenting of Upper GI bleed, patient with intermittent rectal bleeding: Resolved Hemoglobin continues to remain stable GI was following and reevaluated on 05/04/16 Presumed hemorrhoids, continue Anusol HC for 2 weeks Continue PPI. Protein calorie malnutrition: Improving Consulted dietitian who indicated that patient may be converted to bolus feeding Jevity 1.5, 6 cans per day. 1.5 cans that 0800 and 2000, 1 can at 1100, 1400, 1700 Prealbumin level 24 Hypotension with episodes of hypertension: Stable Blood pressure labile. Continue monitor blood pressure Continue Midodrine. Mild obstructive uropathy: Resolved. Appreciate urology recommendations. Suprapubic catheter in place, last changed 05/19/16. To be changed monthly, Abdominal pelvis CT 03/06/16 shows resolution of right sided hydronephrosis. Recurrent urinary tract infection Replaced Soto Obtained clean sample which is had mild improvement Urine culture with multiple organisms Serratia, Pseudomonas, enterococcus, all of which are new bacteria from previous infections. Likely secondary to suprapubic catheter. Patient started on Rocephin, which would be in adequate coverage due to the multiple organism, however I believe is contamination. Considering patient is asymptomatic, afebrile, no leukocytosis. Repeat culture after Soto replaced shows 10-50,000 colonies mixed leticia Discontinue antibiotics Elevated BUN, stable Continue fluid flushes via PEG tube to avoid dehydration. Stage I decubitus ulcer, sacral skin tear: Continue wound care. Palliative care evaluation According to palliative care notes. Family wishes aggressive management, they are expecting him to improve, go to a rehabilitation facility and then improve enough to go home. They are deferring hospice. DVT prophylaxis: SCDs. Avoid chemical prophylaxis secondary to GI bleed. Discharge Planning [facility] once arrangements made by case management Jaguar Walker Jun 09, 2016 10:18
[2016-06-09 20:00] VITALS: BP 101/62; PULSE 67; RESP 20; TEMP 98.2; O2SAT 94
[2016-06-09] MEDS: MIRTAZAPINE 15 MG TAB PEG SCH (20:34)
[2016-06-10] MEDS: MIDODRINE 5 MG TAB PO SCH ×3 (06:46→15:58)
[2016-06-10] MEDS: FREE WATER G-TUBE SCH (07:46)
[2016-06-10] MEDS: LANSOPRAZOLE SOLUTAB 30 MG TAB PEG SCH (07:46)
[2016-06-10] MEDS: ALLOPURINOL 100 MG TAB PEG SCH (07:46)
[2016-06-10 08:00] VITALS: BP 133/70; PULSE 80; RESP 16; TEMP 98.1; O2SAT 96
--- NOTE | 2016-06-10 10:29 | HHI.PR ---
Subjective Remarks Patient seen and examined today. Patient denies any new complaints. No change in clinical status. Awaiting case management discharge planning Objective Vitals Vital Signs Date Time Temp Pulse Resp B/P Pulse Ox O2 Delivery O2 Flow Rate FiO2 06/10/16 08:00 98.1 80 16 133/70 96 06/09/16 20:00 98.2 67 20 101/62 94 I/O 06/09/16 06/09/16 06/09/16 06/10/16 06/10/16 06/10/16 07:00 15:00 23:00 07:00 15:00 23:00 Intake Total 50 ml 600 ml 180 ml Output Total 250 ml 351 ml 200 ml 300 ml Balance -250 ml -301 ml 400 ml -120 ml Intake Oral 50 ml Tube Feeding 360 ml Tube Irrigant 240 ml 180 ml Output Urine Total 250 ml 350 ml 200 ml 300 ml Stool Total 1 ml # Bowel Movements 1 1 2 Objective Remarks GENERAL: Well-developed, well-nourished, in no acute distress. Patient awake and alert HEENT: Head is normocephalic without any lesions or masses noted. Facial features are symmetric. Eyes: Extraocular muscles are intact. Conjunctivae were clear. NECK: Trachea midline no deviation. CARDIAC: Regular rhythm, regular rate. S1/S2 are heard. No murmurs gallops or rubs. LUNGS: Clear to auscultation bilaterally. No wheeze, rhonchi or rales. No use of accessory muscles on inspiration or expiration. ABDOMEN: Soft, nontender. Nondistended. Bowel sounds heard in all 4 quadrants. No organomegaly or masses. Negative rebound, negative guarding, suprapubic catheter in place, PEG tube noted EXTREMITIES: No edema, pulses are equal bilaterally. No cyanosis or clubbing NEUROLOGY: Mood and affect appear appropriate. Cranial nerves II through XII grossly intact. Moving all extremities Procedures None Urinary Catheter: Yes Assessment to: Continue Soto insert reason: Obstruction/Retention Date of Insertion: May 04, 2016 Vascular Central Line Catheter: No A/P Assessment and Plan Dementia with inappropriate behavior, mood disorder improved patient more somnolent today, likely secondary to medication use, patient is afebrile, no tachycardia, no signs of infection. Patient has not had any recurrent inappropriate behavior since increasing the Risperdal Patient has been hospitalized for similar events in 2015 Consulted psychiatry for further evaluation, who indicated that this is a frontal lobe dementia Risperdal discontinued at family's request Continue Remeron Parkinson's disease: Patient has dementia and resting tremor. Chronic, stable. Weakness: Continue physical therapy Nursing staff to get patient up out of bed at least 3 times daily GI bleed with presenting of Upper GI bleed, patient with intermittent rectal bleeding: Resolved Hemoglobin continues to remain stable GI was following and reevaluated on 05/04/16 Presumed hemorrhoids, continue Anusol HC for 2 weeks Continue PPI. Protein calorie malnutrition: Improving Consulted dietitian who indicated that patient may be converted to bolus feeding Jevity 1.5, 6 cans per day. 1.5 cans that 0800 and 2000, 1 can at 1100, 1400, 1700 Prealbumin level 24 Hypotension with episodes of hypertension: Stable Blood pressure labile. Continue monitor blood pressure Continue Midodrine. Mild obstructive uropathy: Resolved. Appreciate urology recommendations. Suprapubic catheter in place, last changed 05/19/16. To be changed monthly, Abdominal pelvis CT 03/06/16 shows resolution of right sided hydronephrosis. Recurrent urinary tract infection Replaced Soto Obtained clean sample which is had mild improvement Urine culture with multiple organisms Serratia, Pseudomonas, enterococcus, all of which are new bacteria from previous infections. Likely secondary to suprapubic catheter. Patient started on Rocephin, which would be in adequate coverage due to the multiple organism, however I believe is contamination. Considering patient is asymptomatic, afebrile, no leukocytosis. Repeat culture after Soto replaced shows 10-50,000 colonies mixed leticia Discontinue antibiotics Elevated BUN, stable Continue fluid flushes via PEG tube to avoid dehydration. Stage I decubitus ulcer, sacral skin tear: Continue wound care. Palliative care evaluation According to palliative care notes. Family wishes aggressive management, they are expecting him to improve, go to a rehabilitation facility and then improve enough to go home. They are deferring hospice. DVT prophylaxis: SCDs. Avoid chemical prophylaxis secondary to GI bleed. Discharge Planning Discharge planning to group home facility once arrangements made by case management Jaguar Walker Jun 10, 2016 09:45
[2016-06-10 20:00] VITALS: BP 99/64; PULSE 68; RESP 18; TEMP 97.1; O2SAT 96
[2016-06-10] MEDS: MIRTAZAPINE 15 MG TAB PEG SCH (20:20)
[2016-06-11] MEDS: MIDODRINE 5 MG TAB PO SCH ×3 (06:18→16:38)
[2016-06-11 08:00] VITALS: BP 96/58; PULSE 68; RESP 18; TEMP 96.4; O2SAT 95
[2016-06-11] MEDS: FREE WATER G-TUBE SCH (09:00)
[2016-06-11] MEDS: LANSOPRAZOLE SOLUTAB 30 MG TAB PEG SCH (09:20)
[2016-06-11] MEDS: ALLOPURINOL 100 MG TAB PEG SCH (09:20)
--- NOTE | 2016-06-11 13:36 | HHI.PR ---
Subjective Remarks No acute complaints. No change in clinical status. Objective Vitals Vital Signs Date Time Temp Pulse Resp B/P Pulse Ox O2 Delivery O2 Flow Rate FiO2 06/11/16 08:00 96.4 68 18 96/58 95 06/10/16 20:00 97.1 68 18 99/64 96 I/O 06/10/16 06/10/16 06/10/16 06/11/16 06/11/16 06/11/16 07:00 15:00 23:00 07:00 15:00 23:00 Intake Total 180 ml 1930 ml 260 ml Output Total 300 ml 877 ml 900 ml Balance -120 ml 1053 ml -640 ml Intake Oral 50 ml 80 ml Tube Feeding 1080 ml Tube Irrigant 180 ml 200 ml 180 ml Other 600 ml Output Urine Total 300 ml 875 ml 900 ml Stool Total 2 ml # Bowel Movements 2 1 3 Objective Remarks GENERAL: Well developed male in no apparent distress. CARDIOVASCULAR: Regular rate and rhythm. RESPIRATORY: No accessory muscle use. Clear to auscultation bilaterally. GASTROINTESTINAL: Abdomen soft, non-tender, non-distended. NEUROLOGICAL: Awake and alert. PSYCHIATRIC: Normal mood and affect. Procedures None Urinary Catheter: Yes Assessment to: Continue Soto insert reason: Prolonged Immobilization Date of Insertion: May 19, 2016 Vascular Central Line Catheter: No A/P Problem List: (1) Prerenal azotemia ICD Code: R79.89 Status: Acute Assessment and Plan Upper GI bleeding: Resolved with recurrent rectal bleeding. Hemoglobin stable. GI reevaluated patient on 05/04. Presumed hemorrhoids, continue Anusol HC for total of 2 weeks. Continue PPI. Protein calorie malnutrition: Improving Consulted dietitian who indicated that patient may be converted to bolus feeding Jevity 1.5 w/ bolus 1.5 cans(360ml) @ 0800 and 2000 and 1-can(240ml) @ 1100, 1400 and 1700. Free Water Flush 100ml before and after each bolus feeding Ensure Enlive tid and chocolate pudding tid Prealbumin level 25. Patient desired to eat and speech therapy advised puree diet, thin liquids, but patient has not been eating. Assistant Corporate Controller suggests considering appetite stimulant. Dementia with inappropriate behavior, mood disorder improved Patient had inappropriate behavior which is resolved now. He has been very appropriate for a long time now. Patient has been hospitalized for similar events in 2015 Consulted psychiatry for further evaluation, who indicated that this is a frontal lobe dementia Risperdal 0.25 mg during the day, Risperdal 0.5 mg at night. Risperdal was discontinued per POA request. Continue Remeron Psychiatry was reconsulted and is ok with discontinuation of Risperdal, but recommends Haldol 1-2 mg q12 prn for aggressive behavior and agitation. I have not witnessed any behavior like this. Probable seborrheic dermatitis: Flaky skin to the face and neck. -Improved s/p one time dose of Ketoconazole 2% shampoo. -Monitor need for further treatments. Chalazion: Persistent nodule R upper eyelid. There is no evidence of preseptal cellulitis. -Warm compresses were applied but it was greater than 2 weeks without significant improvement. -Ophthalmology was consulted and evaluated patient on 03/26. S/p warm compresses and Tobradex 4 times a day OD x 2 weeks. Patient was intermittently compliant with eyedrops. -No worsening. Follow-up outpatient. Hypotension: Blood pressure labile. Continue Midodrine. Patient on max dose. Increase free water flushes as needed. Pre-renal azotemia: BUN elevated at 23. Patient receives 100ml free water flush before and after each bolus feeding.Free water flushes increased to avoid dehydration- 200 mL between bolus feeds. Relayed to nurse. Stage I decubitus ulcer, sacral skin tear: Continue wound care. Mild obstructive uropathy: Resolved. Appreciate urology recommendations. Suprapubic catheter in place last changed 05/19/16. Change monthly. Abdominal pelvis CT 03/06/16 shows resolution of right sided hydronephrosis. Urinary tract infection: Urine culture positive for Proteus mirabilis and GBS on 01/20. Patient completed course of antibiotics. Abdominal pelvis CT 03/06 shows decompressed bladder with circumferential bladder wall thickening and intraluminal air possibly indicating cystitis, but the patient had been afebrile with normal WBC count. Urine culture 05/31 with Serratia marcescens, Pseudomonas, and Enterococcus faecalis. Patient was treated with ceftriaxone. Repeat urine culture on 06/04 only reveals contaminants. Weakness: Continue physical therapy Nursing staff to get patient up out of bed at least 3 times daily Palliative care evaluation According to palliative care notes family wishes aggressive management, they are expecting him to improve, go to a rehabilitation facility and then improve enough to go home. They are declining hospice. DVT prophylaxis: SCDs. Avoid chemical prophylaxis secondary to GI bleed. Discharge Planning 06/10/16: DORIS requested Duane reevaluated patient Madeline Ortez Jun 11, 2016 13:36
[2016-06-11 20:00] VITALS: BP 113/70; PULSE 67; RESP 18; TEMP 98.3; O2SAT 95
[2016-06-11] MEDS: MIRTAZAPINE 15 MG TAB PEG SCH (20:24)
[2016-06-12] MEDS: MIDODRINE 5 MG TAB PO SCH ×3 (06:06→16:47)
[2016-06-12] MEDS: LANSOPRAZOLE SOLUTAB 30 MG TAB PEG SCH (07:55)
[2016-06-12] MEDS: FREE WATER G-TUBE SCH (07:55)
[2016-06-12] MEDS: ALLOPURINOL 100 MG TAB PEG SCH (07:55)
[2016-06-12 08:00] VITALS: BP 95/61; PULSE 83; RESP 24; TEMP 97.5; O2SAT 95
--- NOTE | 2016-06-12 12:12 | HHI.PR ---
Subjective Remarks Nurse informs me the patient either has a pressure sore or yeast infection to his buttocks and constantly has stool in this area. Patient has no acute complaints. Objective Vitals Vital Signs Date Time Temp Pulse Resp B/P Pulse Ox O2 Delivery O2 Flow Rate FiO2 06/12/16 08:00 97.5 83 24 95/61 95 06/11/16 20:00 98.3 67 18 113/70 95 I/O 06/11/16 06/11/16 06/11/16 06/12/16 06/12/16 06/12/16 07:00 15:00 23:00 07:00 15:00 23:00 Intake Total 260 ml 2290 ml 260 ml Output Total 900 ml 1275 ml 600 ml Balance -640 ml 1015 ml -340 ml Intake Oral 80 ml 50 ml 60 ml Tube Feeding 1440 ml Tube Irrigant 180 ml 200 ml 200 ml Other 600 ml Output Urine Total 900 ml 1275 ml 600 ml # Bowel Movements 3 3 Objective Remarks GENERAL: Well developed male in no apparent distress. SKIN: Patient examined in the presence of PATIENT SAFETY OFFICER. Mepilex dressing removed. There is erythema over the sacrococcygeal area with the epidermis sloughed in some areas revealing brighter red tissue. There is no foul odor or drainage but there appears to be satellite lesions around the area including the perineum. Stool in the area. RESPIRATORY: No accessory muscle use. RR normal. NEUROLOGICAL: Awake and alert. PSYCHIATRIC: Does not speak. Normal mood and affect. Procedures None Urinary Catheter: Yes Assessment to: Continue Soto insert reason: Prolonged Immobilization Date of Insertion: May 19, 2016 Vascular Central Line Catheter: No A/P Problem List: (1) Prerenal azotemia ICD Code: R79.89 Status: Acute Assessment and Plan Upper GI bleeding: Resolved with recurrent rectal bleeding. Hemoglobin stable. GI reevaluated patient on 05/04. Presumed hemorrhoids, continue Anusol HC for total of 2 weeks. Continue PPI. Protein calorie malnutrition: Improving Consulted dietitian who indicated that patient may be converted to bolus feeding Jevity 1.5 w/ bolus 1.5 cans(360ml) @ 0800 and 2000 and 1-can(240ml) @ 1100, 1400 and 1700. Free Water Flush 100ml before and after each bolus feeding Ensure Enlive tid and chocolate pudding tid Prealbumin level 25. Patient desired to eat and speech therapy advised puree diet, thin liquids, but patient has not been eating. Financial Retirement Plan Specialist suggests considering appetite stimulant. Dementia with inappropriate behavior, mood disorder improved Patient had inappropriate behavior which is resolved now. He has been very appropriate for a long time now. Patient has been hospitalized for similar events in 2015 Consulted psychiatry for further evaluation, who indicated that this is a frontal lobe dementia Risperdal 0.25 mg during the day, Risperdal 0.5 mg at night. Risperdal was discontinued per POA request. Continue Remeron Psychiatry was reconsulted and is ok with discontinuation of Risperdal, but recommends Haldol 1-2 mg q12 prn for aggressive behavior and agitation. I have not witnessed any behavior like this. Probable seborrheic dermatitis: Flaky skin to the face and neck. -Improved s/p one time dose of Ketoconazole 2% shampoo. -Monitor need for further treatments. Chalazion: Persistent nodule R upper eyelid. There is no evidence of preseptal cellulitis. -Warm compresses were applied but it was greater than 2 weeks without significant improvement. -Ophthalmology was consulted and evaluated patient on 03/26. S/p warm compresses and Tobradex 4 times a day OD x 2 weeks. Patient was intermittently compliant with eyedrops. -No worsening. Follow-up outpatient. Hypotension: Blood pressure labile. Continue Midodrine. Patient on max dose. Increase free water flushes as needed. Pre-renal azotemia: BUN elevated at 23. Patient receives 100ml free water flush before and after each bolus feeding.Free water flushes increased to avoid dehydration- 200 mL between bolus feeds. Relayed to nurse. Stage I decubitus ulcer, sacral skin tear: Continue wound care. Frequent turning of patient. Nurse informs me today that the patient has redness to his buttocks which was not there previously. It appears the patient may have a re-developing pressure ulcer over the sacrococcygeal region and the epidermis is slightly sloughed from the area, but there additionally appears to be satellite lesions resembling candidal infection including the perineum. Despite no foul odor or discharge, patient is at risk for both pressure ulcer and candidal infection due to constant moisture from stool in the area. Will reconsult wound care nurse for recommendations regarding dressings. Although nystatin powder would keep the area dry, it may not be best form of application in this case; will start patient on nystatin ointment for possible candidal infection. Mild obstructive uropathy: Resolved. Appreciate urology recommendations. Suprapubic catheter in place last changed 05/19/16. Change monthly. Abdominal pelvis CT 03/06/16 shows resolution of right sided hydronephrosis. Urinary tract infection: Urine culture positive for Proteus mirabilis and GBS on 01/20. Patient completed course of antibiotics. Abdominal pelvis CT 03/06 shows decompressed bladder with circumferential bladder wall thickening and intraluminal air possibly indicating cystitis, but the patient had been afebrile with normal WBC count. Urine culture 05/31 with Serratia marcescens, Pseudomonas, and Enterococcus faecalis. Patient was treated with ceftriaxone. Repeat urine culture on 06/04 only reveals contaminants. Weakness: Continue physical therapy Nursing staff to get patient up out of bed at least 3 times daily Palliative care evaluation According to palliative care notes family wishes aggressive management, they are expecting him to improve, go to a rehabilitation facility and then improve enough to go home. They are declining hospice. DVT prophylaxis: SCDs. Avoid chemical prophylaxis secondary to GI bleed. Discharge Planning 06/10/16: CM requested Duane reevaluated patient Madeline Ortez Jun 12, 2016 12:12
[2016-06-12 20:00] VITALS: BP 109/70; PULSE 82; RESP 20; TEMP 97.2; O2SAT 95
[2016-06-12] MEDS: MIRTAZAPINE 15 MG TAB PEG SCH (21:23)
[2016-06-12] MEDS: NYSTATIN 100,000 U/GM OINT 15 GM TUBE TOPICAL SCH (21:24)
[2016-06-13] MEDS: MIDODRINE 5 MG TAB PO SCH ×3 (06:17→17:19)
[2016-06-13] MEDS: LANSOPRAZOLE SOLUTAB 30 MG TAB PEG SCH (08:04)
[2016-06-13] MEDS: ALLOPURINOL 100 MG TAB PEG SCH (08:04)
[2016-06-13] MEDS: FREE WATER G-TUBE SCH (08:05)
[2016-06-13] MEDS: NYSTATIN 100,000 U/GM OINT 15 GM TUBE TOPICAL SCH ×2 (08:08→20:48)
[2016-06-13 09:13] VITALS: BP 102/67; PULSE 66; RESP 16; TEMP 96.5; O2SAT 96
--- NOTE | 2016-06-13 12:28 | HHI.PR ---
Subjective Remarks Follow-up for malnutrition, dementia. Patient does not speak but indicates he has pain over the right side of his face and motions to me that he hit himself with his own hand. Objective Vitals Vital Signs Date Time Temp Pulse Resp B/P Pulse Ox O2 Delivery O2 Flow Rate FiO2 06/13/16 09:13 96.5 66 16 102/67 96 06/12/16 20:00 97.2 82 20 109/70 95 I/O 06/12/16 06/12/16 06/12/16 06/13/16 06/13/16 06/13/16 07:00 15:00 23:00 07:00 15:00 23:00 Intake Total 260 ml 60 ml 600 ml 200 ml Output Total 600 ml 225 ml 350 ml 250 ml Balance -340 ml -165 ml 250 ml -50 ml Intake Oral 60 ml 60 ml Tube Feeding 360 ml Tube Irrigant 200 ml 240 ml 200 ml Output Urine Total 600 ml 225 ml 350 ml 250 ml # Bowel Movements 3 1 1 2 Objective Remarks GENERAL: Well developed male in no apparent distress. SKIN: Some mild erythema to the right cheek which is tender to palpation. No bony deformities or swelling noted. There are some small skin lesions on the right judaism. No vesicular lesions. EYES: No injection of the R eye, pupil normal. CARDIOVASCULAR: Regular rate and rhythm. RESPIRATORY: No accessory muscle use. CTAB. RR normal. GASTROINTESTINAL: Normoactive bowel sounds. Abdomen soft, nontender, nondistended. NEUROLOGICAL: Awake and alert. PSYCHIATRIC: Does not speak. Normal mood and affect. Procedures None Urinary Catheter: Yes Assessment to: Continue Soto insert reason: Prolonged Immobilization Date of Insertion: May 19, 2016 Vascular Central Line Catheter: No A/P Problem List: (1) Prerenal azotemia ICD Code: R79.89 Status: Acute Assessment and Plan Upper GI bleeding: Resolved with recurrent rectal bleeding. Hemoglobin stable. GI reevaluated patient on 05/04. Presumed hemorrhoids, continue Anusol HC for total of 2 weeks. Continue PPI. Protein calorie malnutrition: Improving Consulted dietitian who indicated that patient may be converted to bolus feeding Jevity 1.5 w/ bolus 1.5 cans(360ml) @ 0800 and 2000 and 1-can(240ml) @ 1100, 1400 and 1700. Free Water Flush 100ml before and after each bolus feeding Ensure Enlive tid and chocolate pudding tid Prealbumin level 25. Patient desired to eat and speech therapy advised puree diet, thin liquids, but patient has not been eating. Charter Driver suggests considering appetite stimulant. Dementia with inappropriate behavior, mood disorder improved Patient had inappropriate behavior which is resolved now. He has been very appropriate for a long time now. Patient has been hospitalized for similar events in 2015 Consulted psychiatry for further evaluation, who indicated that this is a frontal lobe dementia Risperdal 0.25 mg during the day, Risperdal 0.5 mg at night. Risperdal was discontinued per POA request. Continue Remeron Psychiatry was reconsulted and is ok with discontinuation of Risperdal, but recommends Haldol 1-2 mg q12 prn for aggressive behavior and agitation. I have not witnessed any behavior like this. Probable seborrheic dermatitis: Flaky skin to the face and neck. -Improved s/p one time dose of Ketoconazole 2% shampoo. -Monitor need for further treatments. Chalazion: Persistent nodule R upper eyelid. There is no evidence of preseptal cellulitis. -Warm compresses were applied but it was greater than 2 weeks without significant improvement. -Ophthalmology was consulted and evaluated patient on 03/26. S/p warm compresses and Tobradex 4 times a day OD x 2 weeks. Patient was intermittently compliant with eyedrops. -No worsening. Follow-up outpatient. Hypotension: Blood pressure labile. Continue Midodrine. Patient on max dose. Increase free water flushes as needed. Pre-renal azotemia: BUN elevated at 23. Patient receives 100ml free water flush before and after each bolus feeding.Free water flushes increased to avoid dehydration- 200 mL between bolus feeds. Relayed to nurse. Stage I decubitus ulcer, sacral skin tear: Continue wound care. Frequent turning of patient. 06/12: Nurse informed me that the patient has redness to his buttocks which was not there previously. It appears the patient may have a re-developing pressure ulcer over the sacrococcygeal region and the epidermis is slightly sloughed from the area, but there additionally appears to be satellite lesions resembling candidal infection including the perineum. Despite no foul odor or discharge, patient is at risk for both pressure ulcer and candidal infection due to constant moisture from stool in the area. Although nystatin powder would keep the area dry, it may not be best form of application in this case; will start patient on nystatin ointment for possible candidal infection. Wound care consult pending. Mild obstructive uropathy: Resolved. Appreciate urology recommendations. Suprapubic catheter in place last changed 05/19/16. Change monthly. Abdominal pelvis CT 03/06/16 shows resolution of right sided hydronephrosis. Urinary tract infection: Urine culture positive for Proteus mirabilis and GBS on 01/20. Patient completed course of antibiotics. Abdominal pelvis CT 03/06 shows decompressed bladder with circumferential bladder wall thickening and intraluminal air possibly indicating cystitis, but the patient had been afebrile with normal WBC count. Urine culture 05/31 with Serratia marcescens, Pseudomonas, and Enterococcus faecalis. Patient was treated with ceftriaxone. Repeat urine culture on 06/04 only reveals contaminants. Weakness: Continue physical therapy Nursing staff to get patient up out of bed at least 3 times daily Palliative care evaluation According to palliative care notes family wishes aggressive management, they are expecting him to improve, go to a rehabilitation facility and then improve enough to go home. They are declining hospice. DVT prophylaxis: SCDs. Avoid chemical prophylaxis secondary to GI bleed. 06/13: Patient indicates that he punched himself in the face. He has mild tenderness over the right zygomatic region but there is no evidence of bony injury, likely bruised. He additionally may have a rash, but no vesicular lesions evident. I offered the patient ice, but he declines. Discharge Planning 06/10/16: roger Zepeda reevaluated patient Madeline Ortez Jun 13, 2016 12:28
[2016-06-13 20:00] VITALS: BP 108/74; PULSE 67; RESP 20; TEMP 95.9; O2SAT 97
[2016-06-13] MEDS: MIRTAZAPINE 15 MG TAB PEG SCH (20:48)
[2016-06-14] MEDS: MIDODRINE 5 MG TAB PO SCH ×3 (06:23→17:56)
[2016-06-14] MEDS: LANSOPRAZOLE SOLUTAB 30 MG TAB PEG SCH (08:35)
[2016-06-14] MEDS: ALLOPURINOL 100 MG TAB PEG SCH (08:35)
[2016-06-14] MEDS: NYSTATIN 100,000 U/GM OINT 15 GM TUBE TOPICAL SCH ×2 (08:36→21:23)
[2016-06-14] MEDS: FREE WATER G-TUBE SCH (08:40)
[2016-06-14 08:51] VITALS: BP 98/57; PULSE 57; RESP 16; TEMP 96.9; O2SAT 98
--- NOTE | 2016-06-14 09:23 | HHI.PR ---
Subjective Remarks Patient has what may be a rash to the right side of his face although he told me yesterday he punched himself in that area. He denies any eye pain or visual changes Objective Vitals Vital Signs Date Time Temp Pulse Resp B/P Pulse Ox O2 Delivery O2 Flow Rate FiO2 06/14/16 08:51 96.9 57 16 98/57 98 06/13/16 20:00 95.9 67 20 108/74 97 I/O 06/13/16 06/13/16 06/13/16 06/14/16 06/14/16 06/14/16 07:00 15:00 23:00 07:00 15:00 23:00 Intake Total 200 ml 660 ml 180 ml Output Total 250 ml 500 ml 450 ml Balance -50 ml 160 ml -270 ml Tube Feeding 360 ml Tube Irrigant 200 ml 300 ml 180 ml Output Urine Total 250 ml 500 ml 450 ml # Bowel Movements 2 1 1 Objective Remarks GENERAL: Well developed male in no apparent distress. SKIN: Some mild erythema to the right cheek which is nontender today. No bony deformities or swelling noted. There are some small skin lesions on the right advent, one on nose. No vesicular lesions. EYES: No injection of the R eye, pupil normal. CARDIOVASCULAR: Regular rate and rhythm. RESPIRATORY: No accessory muscle use. CTAB. RR normal. GASTROINTESTINAL: Abdomen soft, nontender, nondistended. NEUROLOGICAL: Awake and alert. PSYCHIATRIC: Does not speak. Normal mood and affect. Procedures None Urinary Catheter: Yes Assessment to: Continue Soto insert reason: Prolonged Immobilization Date of Insertion: May 19, 2016 Vascular Central Line Catheter: No A/P Problem List: (1) Prerenal azotemia ICD Code: R79.89 Status: Acute Assessment and Plan Upper GI bleeding: Resolved with recurrent rectal bleeding. Hemoglobin stable. GI reevaluated patient on 05/04. Presumed hemorrhoids, s/p Anusol HC for total of 2 weeks. Continue PPI. Protein calorie malnutrition: Improving Consulted dietitian who indicated that patient may be converted to bolus feeding Jevity 1.5 w/ bolus 1.5 cans(360ml) @ 0800 and 2000 and 1-can(240ml) @ 1100, 1400 and 1700. Free Water Flush 100ml before and after each bolus feeding. Ensure Enlive tid and chocolate pudding tid Prealbumin level 25. Patient desired to eat and speech therapy advised puree diet, thin liquids, but patient has not been eating. Farm Assistant suggests considering appetite stimulant. Dementia with inappropriate behavior, mood disorder improved Patient had inappropriate behavior which is resolved now. He has been very appropriate for a long time now. Patient has been hospitalized for similar events in 2015 Consulted psychiatry for further evaluation, who indicated that this is a frontal lobe dementia Risperdal 0.25 mg during the day, Risperdal 0.5 mg at night. Risperdal was discontinued per POA request. Continue Remeron Psychiatry was reconsulted and is ok with discontinuation of Risperdal, but recommends Haldol 1-2 mg q12 prn for aggressive behavior and agitation. I have not witnessed any behavior like this. Probable seborrheic dermatitis: Flaky skin to the face and neck. -Improved s/p one time dose of Ketoconazole 2% shampoo. -Monitor need for further treatments. Chalazion: Persistent nodule R upper eyelid. There is no evidence of preseptal cellulitis. -Warm compresses were applied but it was greater than 2 weeks without significant improvement. -Ophthalmology was consulted and evaluated patient on 03/26. S/p warm compresses and Tobradex 4 times a day OD x 2 weeks. Patient was intermittently compliant with eyedrops. -No worsening. Follow-up outpatient. Hypotension: Blood pressure labile. Continue Midodrine. Patient on max dose. Increase free water flushes as needed. Pre-renal azotemia: BUN elevated at 23. Patient receives 100ml free water flush before and after each bolus feeding. Free water flushes increased to avoid dehydration- 200 mL between bolus feeds. Relayed to nurse. Stage I decubitus ulcer, sacral skin tear: Continue wound care. Frequent turning of patient. 06/13: I spoke with wound care nurse; no evidence of pressure ulcer to buttocks at this time. Candidal infection: buttocks affected with satellite lesions to the perineum. Continue nystatin ointment. Mild obstructive uropathy: Resolved. Appreciate urology recommendations. Suprapubic catheter in place last changed 05/19/16. Change monthly. Abdominal pelvis CT 03/06/16 shows resolution of right sided hydronephrosis. Urinary tract infection: Urine culture positive for Proteus mirabilis and GBS on 01/20. Patient completed course of antibiotics. Abdominal pelvis CT 03/06 shows decompressed bladder with circumferential bladder wall thickening and intraluminal air possibly indicating cystitis, but the patient had been afebrile with normal WBC count. Urine culture 05/31 with Serratia marcescens, Pseudomonas, and Enterococcus faecalis. Patient was treated with ceftriaxone. Repeat urine culture on 06/04 only reveals contaminants. Weakness: Continue physical therapy Nursing staff to get patient up out of bed at least 3 times daily Palliative care evaluation According to palliative care notes family wishes aggressive management, they are expecting him to improve, go to a rehabilitation facility and then improve enough to go home. They are declining hospice. DVT prophylaxis: SCDs. Avoid chemical prophylaxis secondary to GI bleed. 06/14: Patient indicates that he punched himself in the face. He had mild tenderness over the right zygomatic region yesterday but none today. There is no evidence of bony injury, likely bruised. He additionally may have a rash, but no vesicular lesions evident. No vision issues reported. Discharge Planning 06/10/16: CM requested Duane reevaluated patient Madeline Ortez Jun 14, 2016 09:23
[2016-06-14 20:00] VITALS: BP 112/76; PULSE 61; RESP 16; TEMP 96.7; O2SAT 96
[2016-06-14] MEDS: MIRTAZAPINE 15 MG TAB PEG SCH (21:23)
[2016-06-15] MEDS: MIDODRINE 5 MG TAB PO SCH ×3 (06:19→17:00)
[2016-06-15] MEDS: FREE WATER G-TUBE SCH (07:58)
[2016-06-15] MEDS: NYSTATIN 100,000 U/GM OINT 15 GM TUBE TOPICAL SCH ×2 (07:58→21:04)
[2016-06-15] MEDS: ALLOPURINOL 100 MG TAB PEG SCH (07:58)
[2016-06-15] MEDS: LANSOPRAZOLE SOLUTAB 30 MG TAB PEG SCH (07:58)
[2016-06-15 08:00] VITALS: BP 121/75; PULSE 63; RESP 16; TEMP 96.4; O2SAT 98
--- NOTE | 2016-06-15 09:36 | HHI.PR ---
Subjective Remarks No acute complaints. No change in clinical status. Rash to R face. Denies eye pain or visual changes. Objective Vitals Vital Signs Date Time Temp Pulse Resp B/P Pulse Ox O2 Delivery O2 Flow Rate FiO2 06/14/16 20:00 96.7 61 16 112/76 96 I/O 06/14/16 06/14/16 06/14/16 06/15/16 06/15/16 06/15/16 07:00 15:00 23:00 07:00 15:00 23:00 Intake Total 180 ml 1680 ml 440 ml Output Total 450 ml 1000 ml 650 ml Balance -270 ml 1680 ml -1000 ml -210 ml Tube Feeding 1080 ml 360 ml Tube Irrigant 180 ml Other 600 ml 80 ml Output Urine Total 450 ml 1000 ml 650 ml # Bowel Movements 1 1 Objective Remarks GENERAL: Well developed male in no apparent distress. SKIN: Some mild erythema to the right cheek which is nontender. No bony deformities or swelling noted. There are a few subtle skin lesions on the right frontal bone, two papules on the right cheek, and one on nose. No vesicular lesions. No worsening. EYES: No conjunctival injection. Pupils normal. CARDIOVASCULAR: Regular rate and rhythm. RESPIRATORY: No accessory muscle use. CTAB. RR normal. GASTROINTESTINAL: Normoactive bowel sounds. Abdomen soft, nontender, nondistended. NEUROLOGICAL: Awake and alert. PSYCHIATRIC: Does not speak. Normal mood and affect. Procedures None Urinary Catheter: Yes Assessment to: Continue Soto insert reason: Prolonged Immobilization Date of Insertion: May 19, 2016 Vascular Central Line Catheter: No A/P Problem List: (1) Prerenal azotemia ICD Code: R79.89 Status: Acute Assessment and Plan Upper GI bleeding: Resolved with recurrent rectal bleeding. Hemoglobin stable. GI reevaluated patient on 05/04. Presumed hemorrhoids, s/p Anusol HC for total of 2 weeks. Continue PPI. Protein calorie malnutrition: Improving Consulted dietitian who indicated that patient may be converted to bolus feeding Jevity 1.5 w/ bolus 1.5 cans(360ml) @ 0800 and 2000 and 1-can(240ml) @ 1100, 1400 and 1700. Free Water Flush 100ml before and after each bolus feeding. Ensure Enlive tid and chocolate pudding tid Prealbumin level 25. Patient desired to eat and speech therapy advised mariposa diet, thin liquids, but patient has not been eating. Sharepoint Architect suggested considering appetite stimulant. This was discussed with Dr. Chau, but we do not believe this would be beneficial for patient and would add unnecessary risk to the patient. Will continue with tube feeds only. Dementia with inappropriate behavior, mood disorder improved Patient had inappropriate behavior which is resolved now. He has been very appropriate for a long time now. Patient has been hospitalized for similar events in 2015 Consulted psychiatry for further evaluation, who indicated that this is a frontal lobe dementia Risperdal 0.25 mg during the day, Risperdal 0.5 mg at night. Risperdal was discontinued per POA request. Continue Remeron Psychiatry was reconsulted and is ok with discontinuation of Risperdal, but recommends Haldol 1-2 mg q12 prn for aggressive behavior and agitation. I have not witnessed any behavior like this. Probable seborrheic dermatitis: Flaky skin to the face and neck. -Improved s/p one time dose of Ketoconazole 2% shampoo. -Monitor need for further treatments. Chalazion: Persistent nodule R upper eyelid. There is no evidence of preseptal cellulitis. -Warm compresses were applied but it was greater than 2 weeks without significant improvement. -Ophthalmology was consulted and evaluated patient on 03/26. S/p warm compresses and Tobradex 4 times a day OD x 2 weeks. Patient was intermittently compliant with eyedrops. -No worsening. Follow-up outpatient. Hypotension: Blood pressure labile. Continue Midodrine. Patient on max dose. Increase free water flushes as needed. Pre-renal azotemia: BUN elevated at 23. Patient receives 100ml free water flush before and after each bolus feeding. Free water flushes increased to avoid dehydration- 200 mL between bolus feeds. Relayed to nurse. Stage I decubitus ulcer, sacral skin tear: Continue wound care. Frequent turning of patient. 06/13: I spoke with wound care nurse; no evidence of pressure ulcer to buttocks at this time. Candidal infection: buttocks affected with satellite lesions to the perineum. Continue nystatin ointment. Mild obstructive uropathy: Resolved. Appreciate urology recommendations. Suprapubic catheter in place last changed 05/19/16. Change monthly. Abdominal pelvis CT 03/06/16 shows resolution of right sided hydronephrosis. Urinary tract infection: Urine culture positive for Proteus mirabilis and GBS on 01/20. Patient completed course of antibiotics. Abdominal pelvis CT 03/06 shows decompressed bladder with circumferential bladder wall thickening and intraluminal air possibly indicating cystitis, but the patient had been afebrile with normal WBC count. Urine culture 05/31 with Serratia marcescens, Pseudomonas, and Enterococcus faecalis. Patient was treated with ceftriaxone. Repeat urine culture on 06/04 only reveals contaminants. Weakness: Continue physical therapy Nursing staff to get patient up out of bed at least 3 times daily Palliative care evaluation According to palliative care notes family wishes aggressive management, they are expecting him to improve, go to a rehabilitation facility and then improve enough to go home. They are declining hospice. DVT prophylaxis: SCDs. Avoid chemical prophylaxis secondary to GI bleed. 06/15: Patient indicated a few days ago that he punched himself in the face. He had mild tenderness over the right zygomatic region initially which is now resolved. There is no evidence of bony injury, likely bruised. Appears as a rash , but no vesicular lesions evident. No vision issues reported. If persists patient may require some topical treatment. Discharge Planning 06/10/16: CM requested Duane reevaluated patient Madeline Ortez Jun 15, 2016 09:36
[2016-06-15 20:00] VITALS: BP 108/76; PULSE 73; RESP 18; TEMP 98.1; O2SAT 96
[2016-06-15] MEDS: MIRTAZAPINE 15 MG TAB PEG SCH (21:04)
[2016-06-16] MEDS: MIDODRINE 5 MG TAB PO SCH ×3 (06:06→16:37)
[2016-06-16 08:00] VITALS: BP 116/73; PULSE 65; RESP 20; TEMP 98.4; O2SAT 96
--- NOTE | 2016-06-16 08:28 | HHI.PR ---
Subjective Remarks No acute complaints. No change in clinical status. Objective Vitals Vital Signs Date Time Temp Pulse Resp B/P Pulse Ox O2 Delivery O2 Flow Rate FiO2 06/16/16 08:00 98.4 65 20 116/73 96 06/15/16 20:00 98.1 73 18 108/76 96 I/O 06/15/16 06/15/16 06/15/16 06/16/16 06/16/16 06/16/16 07:00 15:00 23:00 07:00 15:00 23:00 Intake Total 440 ml 60 ml 80 ml Output Total 650 ml 250 ml 400 ml 600 ml Balance -210 ml -250 ml -340 ml -520 ml Intake Oral 60 ml 80 ml Tube Feeding 360 ml Other 80 ml Output Urine Total 650 ml 400 ml 600 ml Stool Total 250 ml # Bowel Movements 1 4 Objective Remarks GENERAL: Well developed male in no apparent distress. SKIN: Some mild erythema to the right cheek. No swelling noted. There are a few subtle skin lesions on the right frontal bone, papules on the right cheek, and one pustule on the nose. No vesicular lesions. No worsening. EYES: No conjunctival injection. Pupils normal. CARDIOVASCULAR: Regular rate and rhythm. RESPIRATORY: No accessory muscle use. CTAB. RR normal. GASTROINTESTINAL: Abdomen soft, nontender, nondistended. NEUROLOGICAL: Awake and alert. PSYCHIATRIC: Does not speak. Normal mood and affect. Procedures None Urinary Catheter: Yes Assessment to: Continue Soto insert reason: Prolonged Immobilization Date of Insertion: May 19, 2016 Vascular Central Line Catheter: No A/P Problem List: (1) Prerenal azotemia ICD Code: R79.89 Status: Acute Assessment and Plan Upper GI bleeding: Resolved with recurrent rectal bleeding. Hemoglobin stable. GI reevaluated patient on 05/04. Presumed hemorrhoids, s/p Anusol HC for total of 2 weeks. Continue PPI. Protein calorie malnutrition: Improving Consulted dietitian who indicated that patient may be converted to bolus feeding Jevity 1.5 w/ bolus 1.5 cans(360ml) @ 0800 and 2000 and 1-can(240ml) @ 1100, 1400 and 1700. Free Water Flush 100ml before and after each bolus feeding. Ensure Enlive tid and chocolate pudding tid Prealbumin level 25. Patient desired to eat and speech therapy advised puree diet, thin liquids, but patient has not been eating. Video System Repairer suggested considering appetite stimulant. This was discussed with Dr. Chau, but we do not believe this would be beneficial for patient and would add unnecessary risk to the patient. Will continue with tube feeds only. Dementia with inappropriate behavior, mood disorder improved Patient had inappropriate behavior which is resolved now. He has been very appropriate for a long time now. Patient has been hospitalized for similar events in 2015 Consulted psychiatry for further evaluation, who indicated that this is a frontal lobe dementia Risperdal 0.25 mg during the day, Risperdal 0.5 mg at night. Risperdal was discontinued per POA request. Continue Remeron Psychiatry was reconsulted and is ok with discontinuation of Risperdal, but recommends Haldol 1-2 mg q12 prn for aggressive behavior and agitation. I have not witnessed any behavior like this. Probable seborrheic dermatitis: Flaky skin to the face and neck. -Improved s/p one time dose of Ketoconazole 2% shampoo. -Monitor need for further treatments. Chalazion: Persistent nodule R upper eyelid. There is no evidence of preseptal cellulitis. -Warm compresses were applied but it was greater than 2 weeks without significant improvement. -Ophthalmology was consulted and evaluated patient on 03/26. S/p warm compresses and Tobradex 4 times a day OD x 2 weeks. Patient was intermittently compliant with eyedrops. -No worsening. Follow-up outpatient. Hypotension: Blood pressure labile. Continue Midodrine. Patient on max dose. Increase free water flushes as needed. Pre-renal azotemia: BUN elevated at 23. Patient receives 100ml free water flush before and after each bolus feeding. Free water flushes increased to avoid dehydration- 200 mL between bolus feeds. Relayed to nurse. Stage I decubitus ulcer, sacral skin tear: Continue wound care. Frequent turning of patient. 06/13: I spoke with wound care nurse; no evidence of pressure ulcer to buttocks at this time. Candidal infection: buttocks affected with satellite lesions to the perineum. Continue nystatin ointment. Mild obstructive uropathy: Resolved. Appreciate urology recommendations. Suprapubic catheter in place last changed 05/19/16. Change monthly. Abdominal pelvis CT 11/2/16 shows resolution of right sided hydronephrosis. Urinary tract infection: Urine culture positive for Proteus mirabilis and GBS on 01/20. Patient completed course of antibiotics. Abdominal pelvis CT 03/06 shows decompressed bladder with circumferential bladder wall thickening and intraluminal air possibly indicating cystitis, but the patient had been afebrile with normal WBC count. Urine culture 05/31 with Serratia marcescens, Pseudomonas, and Enterococcus faecalis. Patient was treated with ceftriaxone. Repeat urine culture on 06/04 only reveals contaminants. Weakness: Continue physical therapy Nursing staff to get patient up out of bed at least 3 times daily Palliative care evaluation According to palliative care notes family wishes aggressive management, they are expecting him to improve, go to a rehabilitation facility and then improve enough to go home. They are declining hospice. Possible rash R face: Patient indicated a few days ago that he punched himself in the face. He had mild tenderness over the right zygomatic region initially which is now resolved. There is no evidence of bony injury, likely bruised. Erythema over the R cheek appears as a possible rash, and a few skin lesions present, but no vesicular lesions evident. No vision issues reported. If persists patient may require some topical treatment. DVT prophylaxis: SCDs. Avoid chemical prophylaxis secondary to GI bleed. Discharge Planning 06/10/16: CM roger Zepeda reevaluated patient Madeline Ortez Jun 16, 2016 08:28
[2016-06-16] MEDS: LANSOPRAZOLE SOLUTAB 30 MG TAB PEG SCH (08:59)
[2016-06-16] MEDS: FREE WATER G-TUBE SCH (08:59)
[2016-06-16] MEDS: ALLOPURINOL 100 MG TAB PEG SCH (08:59)
[2016-06-16] MEDS: NYSTATIN 100,000 U/GM OINT 15 GM TUBE TOPICAL SCH ×2 (09:00→21:21)
[2016-06-16 20:00] VITALS: BP 97/67; PULSE 65; RESP 16; TEMP 97.6; O2SAT 95
[2016-06-16] MEDS: MIRTAZAPINE 15 MG TAB PEG SCH (21:21)
[2016-06-17] MEDS: MIDODRINE 5 MG TAB PO SCH ×3 (05:47→17:31)
[2016-06-17 08:00] VITALS: BP 125/74; PULSE 77; RESP 16; TEMP 98; O2SAT 98
[2016-06-17] MEDS: FREE WATER G-TUBE SCH (08:10)
[2016-06-17] MEDS: LANSOPRAZOLE SOLUTAB 30 MG TAB PEG SCH (08:11)
[2016-06-17] MEDS: ALLOPURINOL 100 MG TAB PEG SCH (08:11)
[2016-06-17] MEDS: NYSTATIN 100,000 U/GM OINT 15 GM TUBE TOPICAL SCH ×2 (08:17→21:00)
--- NOTE | 2016-06-17 13:13 | HHI.PR ---
Subjective Remarks No acute complaints. No change in clinical status. Objective Vitals Vital Signs Date Time Temp Pulse Resp B/P Pulse Ox O2 Delivery O2 Flow Rate FiO2 06/17/16 08:00 98.0 77 16 125/74 98 06/16/16 20:00 97.6 65 16 97/67 95 I/O 06/16/16 06/16/16 06/16/16 06/17/16 06/17/16 06/17/16 07:00 15:00 23:00 07:00 15:00 23:00 Intake Total 80 ml 400 ml 10 ml Output Total 600 ml 750 ml 550 ml Balance -520 ml -750 ml -150 ml 10 ml Intake Oral 80 ml 10 ml Tube Feeding 360 ml Other 40 ml Output Urine Total 600 ml 750 ml 550 ml # Bowel Movements 4 1 Objective Remarks GENERAL: Well developed male in no apparent distress. SKIN: Some mild erythema to the right cheek. No swelling noted. There are a few subtle skin lesions on the right frontal bone, two papules on the right cheek, and one pustule on the nose. No vesicular lesions. No worsening. EYES: No conjunctival injection. CARDIOVASCULAR: Regular rate and rhythm. RESPIRATORY: No accessory muscle use. CTAB. RR normal. GASTROINTESTINAL: Abdomen soft, nontender, nondistended. NEUROLOGICAL: Awake and alert. PSYCHIATRIC: Does not speak. Normal mood and affect. Procedures None Urinary Catheter: Yes Assessment to: Continue Soto insert reason: Prolonged Immobilization Date of Insertion: May 19, 2016 A/P Problem List: (1) Prerenal azotemia ICD Code: R79.89 Status: Acute Assessment and Plan Upper GI bleeding: Resolved with recurrent rectal bleeding. Hemoglobin stable. GI reevaluated patient on 05/04. Presumed hemorrhoids, s/p Anusol HC for total of 2 weeks. Continue PPI. Protein calorie malnutrition: Improving Consulted dietitian who indicated that patient may be converted to bolus feeding Jevity 1.5 w/ bolus 1.5 cans(360ml) @ 0800 and 2000 and 1-can(240ml) @ 1100, 1400 and 1700. Free Water Flush 100ml before and after each bolus feeding. Ensure Enlive tid and chocolate pudding tid Prealbumin level 25. Patient desired to eat and speech therapy advised puree diet, thin liquids, but patient has not been eating. General Passenger Agent suggested considering appetite stimulant. This was discussed with attending, but we do not believe this would be beneficial for patient and would add unnecessary risk to the patient. Will continue with tube feeds only. Dementia with inappropriate behavior, mood disorder improved Patient had inappropriate behavior which is resolved now. He has been very appropriate for a long time now. Patient has been hospitalized for similar events in 2015 Consulted psychiatry for further evaluation, who indicated that this is a frontal lobe dementia Risperdal 0.25 mg during the day, Risperdal 0.5 mg at night. Risperdal was discontinued per POA request. Continue Remeron Psychiatry was reconsulted and is ok with discontinuation of Risperdal, but recommends Haldol 1-2 mg q12 prn for aggressive behavior and agitation. I have not witnessed any behavior like this. Probable seborrheic dermatitis: Flaky skin to the face and neck. -Improved s/p one time dose of Ketoconazole 2% shampoo. -Monitor need for further treatments. Chalazion: Persistent nodule R upper eyelid. There is no evidence of preseptal cellulitis. -Warm compresses were applied but it was greater than 2 weeks without significant improvement. -Ophthalmology was consulted and evaluated patient on 03/26. S/p warm compresses and Tobradex 4 times a day OD x 2 weeks. Patient was intermittently compliant with eyedrops. -No worsening. Follow-up outpatient. Hypotension: Blood pressure labile. Continue Midodrine. Patient on max dose. Increase free water flushes as needed. Pre-renal azotemia: BUN elevated at 23. Patient receives 100ml free water flush before and after each bolus feeding. Free water flushes increased to avoid dehydration- 200 mL between bolus feeds. Relayed to nurse. Stage I decubitus ulcer, sacral skin tear: Continue wound care. Frequent turning of patient. 06/13: I spoke with wound care nurse; no evidence of pressure ulcer to buttocks at this time. Candidal infection: buttocks affected with satellite lesions to the perineum. Continue nystatin ointment. Mild obstructive uropathy: Resolved. Appreciate urology recommendations. Suprapubic catheter in place last changed 05/19/16. Change monthly. Order to change catheter today (06/17). Abdominal pelvis CT 03/06/16 shows resolution of right sided hydronephrosis. Urinary tract infection: Urine culture positive for Proteus mirabilis and GBS on 01/20. Patient completed course of antibiotics. Abdominal pelvis CT 03/06 shows decompressed bladder with circumferential bladder wall thickening and intraluminal air possibly indicating cystitis, but the patient had been afebrile with normal WBC count. Urine culture 05/31 with Serratia marcescens, Pseudomonas, and Enterococcus faecalis. Patient was treated with ceftriaxone. Repeat urine culture on 06/04 only reveals contaminants. Weakness: Continue physical therapy Nursing staff to get patient up out of bed at least 3 times daily Palliative care evaluation According to palliative care notes family wishes aggressive management, they are expecting him to improve, go to a rehabilitation facility and then improve enough to go home. They are declining hospice. Possible rash R face: Patient indicated a few days ago that he punched himself in the face. He had mild tenderness over the right zygomatic region initially which is now resolved. There is no evidence of bony injury, likely bruised. Erythema over the R cheek appears as a possible rash, and a few papules present with pustule to the nose, but no vesicular lesions evident. No vision issues reported. If does not improve patient may require topical treatment. DVT prophylaxis: SCDs. Avoid chemical prophylaxis secondary to GI bleed. Discharge Planning 06/10/16: DORIS requested Duane reevaluated patient Madeline Ortez Jun 17, 2016 13:13
[2016-06-17 20:00] VITALS: BP 98/65; PULSE 78; RESP 16; TEMP 98.2; O2SAT 97
[2016-06-17] MEDS: MIRTAZAPINE 15 MG TAB PEG SCH (21:00)
[2016-06-18] MEDS: MIDODRINE 5 MG TAB PO SCH ×3 (06:30→16:28)
[2016-06-18 08:00] VITALS: BP 112/71; PULSE 74; RESP 18; TEMP 97.4; O2SAT 96
[2016-06-18] MEDS: FREE WATER G-TUBE SCH (09:00)
[2016-06-18] MEDS: NYSTATIN 100,000 U/GM OINT 15 GM TUBE TOPICAL SCH ×2 (09:23→20:47)
[2016-06-18] MEDS: DIPHENOXYLATE/ATROPINE 2.5 MG/0.025 MG TAB PO PRN (09:23)
[2016-06-18] MEDS: ALLOPURINOL 100 MG TAB PEG SCH (09:23)
[2016-06-18] MEDS: LANSOPRAZOLE SOLUTAB 30 MG TAB PEG SCH (09:23)
--- NOTE | 2016-06-18 11:51 | HHI.PR ---
Subjective Remarks Patient seen and examined today. No change in clinical status. Nursing staff indicates patient having rash on his back. Care consultation has been requested Objective Vitals Vital Signs Date Time Temp Pulse Resp B/P Pulse Ox O2 Delivery O2 Flow Rate FiO2 06/18/16 08:00 97.4 74 18 112/71 96 06/17/16 20:00 98.2 78 16 98/65 97 I/O 06/17/16 06/17/16 06/17/16 06/18/16 06/18/16 06/18/16 07:00 15:00 23:00 07:00 15:00 23:00 Intake Total 400 ml 10 ml 1080 ml 360 ml Output Total 550 ml 200 ml 250 ml 200 ml Balance -150 ml -190 ml 830 ml 160 ml Intake Oral 10 ml Tube Feeding 360 ml 1080 ml 360 ml Other 40 ml Output Urine Total 550 ml 200 ml 250 ml 200 ml # Bowel Movements 1 1 1 Objective Remarks GENERAL: Well-developed, well-nourished, in no acute distress. Patient awake and alert HEENT: Head is normocephalic without any lesions or masses noted. Facial features are symmetric. Eyes: Extraocular muscles are intact. Conjunctivae were clear. NECK: Trachea midline no deviation. CARDIAC: Regular rhythm, regular rate. S1/S2 are heard. No murmurs gallops or rubs. LUNGS: Clear to auscultation bilaterally. No wheeze, rhonchi or rales. No use of accessory muscles on inspiration or expiration. ABDOMEN: Soft, nontender. Nondistended. Bowel sounds heard in all 4 quadrants. No organomegaly or masses. Negative rebound, negative guarding, suprapubic catheter in place, PEG tube noted EXTREMITIES: No edema, pulses are equal bilaterally. No cyanosis or clubbing NEUROLOGY: Mood and affect appear appropriate. Cranial nerves II through XII grossly intact. Moving all extremities SKIN: Patient's back has skin breakdown on his back and sacral area. Appears to the clinic heat rash which is developing worse because patient refuses to get out of bed. Procedures None Urinary Catheter: Yes (suprapubic catheter) Assessment to: Continue Date of Insertion: May 19, 2016 Vascular Central Line Catheter: No A/P Assessment and Plan Dementia with inappropriate behavior, mood disorder improved patient more somnolent today, likely secondary to medication use, patient is afebrile, no tachycardia, no signs of infection. Patient has not had any recurrent inappropriate behavior since increasing the Risperdal Patient has been hospitalized for similar events in 2015 Consulted psychiatry for further evaluation, who indicated that this is a frontal lobe dementia Risperdal discontinued at family's request Continue Remeron Back rash Wound care nurse consulted. Which did indicate scattered areas of partial- thickness skin loss noted to gluteal cleft. Back. Recommended to turn patient every 2 hours. Instructed nursing staff to keep clean, patient to get out of bed at least 3 times daily. Parkinson's disease: Patient has dementia and resting tremor. Chronic, stable. Weakness: Continue physical therapy Nursing staff to get patient up out of bed at least 3 times daily GI bleed with presenting of Upper GI bleed, patient with intermittent rectal bleeding: Resolved Hemoglobin continues to remain stable GI was following and reevaluated on 05/04/16 Presumed hemorrhoids, continue Anusol HC for 2 weeks Continue PPI. Protein calorie malnutrition: Improving Consulted dietitian who indicated that patient may be converted to bolus feeding Jevity 1.5, 6 cans per day. 1.5 cans that 0800 and 2000, 1 can at 1100, 1400, 1700 Prealbumin level 24 Hypotension with episodes of hypertension: Stable Blood pressure labile. Continue monitor blood pressure Continue Midodrine. Mild obstructive uropathy: Resolved. Appreciate urology recommendations. Suprapubic catheter in place, last changed 05/19/16. To be changed monthly, Abdominal pelvis CT 03/06/16 shows resolution of right sided hydronephrosis. Recurrent urinary tract infection Replaced Soto Obtained clean sample which is had mild improvement Urine culture with multiple organisms Serratia, Pseudomonas, enterococcus, all of which are new bacteria from previous infections. Likely secondary to suprapubic catheter. Patient started on Rocephin, which would be in adequate coverage due to the multiple organism, however I believe is contamination. Considering patient is asymptomatic, afebrile, no leukocytosis. Repeat culture after Soto replaced shows 10-50,000 colonies mixed leticia Discontinue antibiotics Elevated BUN, stable Continue fluid flushes via PEG tube to avoid dehydration. Stage I decubitus ulcer, sacral skin tear: Continue wound care. Palliative care evaluation According to palliative care notes. Family wishes aggressive management, they are expecting him to improve, go to a rehabilitation facility and then improve enough to go home. They are deferring hospice. DVT prophylaxis: SCDs. Avoid chemical prophylaxis secondary to GI bleed. Discharge Planning Discharge planning to snf facility once arrangements made by case management Jaguar Walker Jun 18, 2016 11:51
[2016-06-18 20:00] VITALS: BP 96/63; PULSE 76; RESP 16; TEMP 98.2; O2SAT 95
[2016-06-18] MEDS: MIRTAZAPINE 15 MG TAB PEG SCH (20:44)
[2016-06-19] MEDS: MIDODRINE 5 MG TAB PO SCH ×3 (06:30→16:49)
[2016-06-19 08:00] VITALS: BP 106/70; PULSE 84; RESP 22; TEMP 96.5; O2SAT 96
[2016-06-19] MEDS: FREE WATER G-TUBE SCH (09:00)
[2016-06-19] MEDS: LANSOPRAZOLE SOLUTAB 30 MG TAB PEG SCH (09:22)
[2016-06-19] MEDS: ALLOPURINOL 100 MG TAB PEG SCH (09:22)
[2016-06-19] MEDS: NYSTATIN 100,000 U/GM OINT 15 GM TUBE TOPICAL SCH ×2 (09:24→23:09)
--- NOTE | 2016-06-19 10:21 | HHI.PR ---
Subjective Remarks Patient seen and examined today. Patient denies any new complaints. No change in clinical status. Awaiting case management for discharge planning Objective Vitals Vital Signs Date Time Temp Pulse Resp B/P Pulse Ox O2 Delivery O2 Flow Rate FiO2 06/18/16 20:00 98.2 76 16 96/63 95 I/O 06/18/16 06/18/16 06/18/16 06/19/16 06/19/16 06/19/16 07:00 15:00 23:00 07:00 15:00 23:00 Intake Total 360 ml 420 ml Output Total 200 ml 600 ml 200 ml 250 ml Balance 160 ml -600 ml -200 ml 170 ml Tube Feeding 360 ml 360 ml Other 60 ml Output Urine Total 200 ml 600 ml 200 ml 250 ml # Bowel Movements 1 3 1 1 Objective Remarks GENERAL: Well-developed, well-nourished, in no acute distress. Patient awake and alert HEENT: Head is normocephalic without any lesions or masses noted. Facial features are symmetric. Eyes: Extraocular muscles are intact. Conjunctivae were clear. NECK: Trachea midline no deviation. CARDIAC: Regular rhythm, regular rate. S1/S2 are heard. No murmurs gallops or rubs. LUNGS: Clear to auscultation bilaterally. No wheeze, rhonchi or rales. No use of accessory muscles on inspiration or expiration. ABDOMEN: Soft, nontender. Nondistended. Bowel sounds heard in all 4 quadrants. No organomegaly or masses. Negative rebound, negative guarding, suprapubic catheter in place, PEG tube noted EXTREMITIES: No edema, pulses are equal bilaterally. No cyanosis or clubbing NEUROLOGY: Mood and affect appear appropriate. Cranial nerves II through XII grossly intact. Moving all extremities SKIN: Patient's back has skin breakdown on his back and sacral area. Appears to the clinic heat rash which is developing worse because patient refuses to get out of bed. Procedures None Urinary Catheter: Yes (suprapubic catheter) Assessment to: Remove (replace) Soto insert reason: Prolonged Immobilization Date of Insertion: May 19, 2016 Date of Removal: Jun 19, 2016 Vascular Central Line Catheter: No A/P Assessment and Plan Dementia with inappropriate behavior, mood disorder improved patient more somnolent today, likely secondary to medication use, patient is afebrile, no tachycardia, no signs of infection. Patient has not had any recurrent inappropriate behavior since increasing the Risperdal Patient has been hospitalized for similar events in 2015 Consulted psychiatry for further evaluation, who indicated that this is a frontal lobe dementia Risperdal discontinued at family's request Continue Remeron Back rash Wound care nurse consulted. Which did indicate scattered areas of partial- thickness skin loss noted to gluteal cleft. Back. Recommended to turn patient every 2 hours. Instructed nursing staff to keep clean, patient to get out of bed at least 3 times daily. Parkinson's disease: Patient has dementia and resting tremor. Chronic, stable. Weakness: Continue physical therapy Nursing staff to get patient up out of bed at least 3 times daily GI bleed with presenting of Upper GI bleed, patient with intermittent rectal bleeding: Resolved Hemoglobin continues to remain stable GI was following and reevaluated on 05/04/16 Presumed hemorrhoids, continue Anusol HC for 2 weeks Continue PPI. Protein calorie malnutrition: Improving Consulted dietitian who indicated that patient may be converted to bolus feeding Jevity 1.5, 6 cans per day. 1.5 cans that 0800 and 2000, 1 can at 1100, 1400, 1700 Prealbumin level 24 Hypotension with episodes of hypertension: Stable Blood pressure labile. Continue monitor blood pressure Continue Midodrine. Mild obstructive uropathy: Resolved. Appreciate urology recommendations. Suprapubic catheter in place, last changed 05/19/16. To be changed today Abdominal pelvis CT 03/06/16 shows resolution of right sided hydronephrosis. Recurrent urinary tract infection Replaced Soto Obtained clean sample which is had mild improvement Urine culture with multiple organisms Serratia, Pseudomonas, enterococcus, all of which are new bacteria from previous infections. Likely secondary to suprapubic catheter. Patient started on Rocephin, which would be in adequate coverage due to the multiple organism, however I believe is contamination. Considering patient is asymptomatic, afebrile, no leukocytosis. Repeat culture after Soto replaced shows 10-50,000 colonies mixed leticia Discontinue antibiotics Elevated BUN, stable Continue fluid flushes via PEG tube to avoid dehydration. Stage I decubitus ulcer, sacral skin tear: Continue wound care. Palliative care evaluation According to palliative care notes. Family wishes aggressive management, they are expecting him to improve, go to a rehabilitation facility and then improve enough to go home. They are deferring hospice. DVT prophylaxis: SCDs. Avoid chemical prophylaxis secondary to GI bleed. Discharge Planning [facility] once arrangements made by case management Jaguar Walker Jun 19, 2016 10:21
[2016-06-19] MEDS: MIRTAZAPINE 15 MG TAB PEG SCH (21:32)
[2016-06-20 00:10] VITALS: BP 94/63; PULSE 74; RESP 12; TEMP 97.7; O2SAT 94
[2016-06-20] MEDS: MIDODRINE 5 MG TAB PO SCH ×3 (05:32→17:41)
[2016-06-20] MEDS: MIRTAZAPINE 15 MG TAB PEG SCH ×2 (05:32→21:28)
[2016-06-20 08:00] VITALS: BP 96/62; PULSE 65; RESP 18; TEMP 96; O2SAT 94
[2016-06-20] MEDS: FREE WATER G-TUBE SCH (08:02)
[2016-06-20] MEDS: ALLOPURINOL 100 MG TAB PEG SCH (08:48)
[2016-06-20] MEDS: LANSOPRAZOLE SOLUTAB 30 MG TAB PEG SCH (08:48)
[2016-06-20] MEDS: DIPHENOXYLATE/ATROPINE 2.5 MG/0.025 MG TAB PO PRN (08:48)
[2016-06-20] MEDS: NYSTATIN 100,000 U/GM OINT 15 GM TUBE TOPICAL SCH ×2 (08:50→21:29)
--- NOTE | 2016-06-20 10:16 | HHI.PR ---
Subjective Remarks Patient seen and examined today. Patient denies any new complaints. No change in clinical status. This record was reviewed no acute changes overnight, no change in current treatment plan. Objective Vitals Vital Signs Date Time Temp Pulse Resp B/P Pulse Ox O2 Delivery O2 Flow Rate FiO2 06/20/16 08:00 96.0 65 18 96/62 94 06/20/16 00:10 97.7 74 12 94/63 94 I/O 06/19/16 06/19/16 06/19/16 06/20/16 06/20/16 06/20/16 07:00 15:00 23:00 07:00 15:00 23:00 Intake Total 420 ml 840 ml 560 ml 160 ml Output Total 250 ml 250 ml 150 ml 220 ml Balance 170 ml 590 ml 410 ml -60 ml Tube Feeding 360 ml 840 ml 360 ml 60 ml Other 60 ml 200 ml 100 ml Output Urine Total 250 ml 250 ml 150 ml 220 ml # Bowel Movements 1 Objective Remarks GENERAL: Well-developed, well-nourished, in no acute distress. Patient awake and alert HEENT: Head is normocephalic without any lesions or masses noted. Facial features are symmetric. Eyes: Extraocular muscles are intact. Conjunctivae were clear. NECK: Trachea midline no deviation. CARDIAC: Regular rhythm, regular rate. S1/S2 are heard. No murmurs gallops or rubs. LUNGS: Clear to auscultation bilaterally. No wheeze, rhonchi or rales. No use of accessory muscles on inspiration or expiration. ABDOMEN: Soft, nontender. Nondistended. Bowel sounds heard in all 4 quadrants. No organomegaly or masses. Negative rebound, negative guarding, suprapubic catheter in place, PEG tube noted EXTREMITIES: No edema, pulses are equal bilaterally. No cyanosis or clubbing NEUROLOGY: Mood and affect appear appropriate. Cranial nerves II through XII grossly intact. Moving all extremities SKIN: Patient's back has skin breakdown on his back and sacral area. Appears to the clinic heat rash which is developing worse because patient refuses to get out of bed. Procedures None Urinary Catheter: Yes Assessment to: Continue Soto insert reason: Obstruction/Retention Date of Insertion: May 19, 2016 Date of Removal: Jun 19, 2016 Vascular Central Line Catheter: No A/P Assessment and Plan Dementia with inappropriate behavior, mood disorder improved patient more somnolent today, likely secondary to medication use, patient is afebrile, no tachycardia, no signs of infection. Patient has not had any recurrent inappropriate behavior since increasing the Risperdal Patient has been hospitalized for similar events in 2015 Consulted psychiatry for further evaluation, who indicated that this is a frontal lobe dementia Risperdal discontinued at family's request Continue Remeron Back rash Wound care nurse consulted. Which did indicate scattered areas of partial- thickness skin loss noted to gluteal cleft. Back. Recommended to turn patient every 2 hours. Instructed nursing staff to keep clean, patient to get out of bed at least 3 times daily. Parkinson's disease: Patient has dementia and resting tremor. Chronic, stable. Weakness: Continue physical therapy Nursing staff to get patient up out of bed at least 3 times daily GI bleed with presenting of Upper GI bleed, patient with intermittent rectal bleeding: Resolved Hemoglobin continues to remain stable GI was following and reevaluated on 05/04/16 Presumed hemorrhoids, continue Anusol HC for 2 weeks Continue PPI. Protein calorie malnutrition: Improving Consulted dietitian who indicated that patient may be converted to bolus feeding Jevity 1.5, 6 cans per day. 1.5 cans that 0800 and 2000, 1 can at 1100, 1400, 1700 Prealbumin level 24 Hypotension with episodes of hypertension: Stable Blood pressure labile. Continue monitor blood pressure Continue Midodrine. Mild obstructive uropathy: Resolved. Appreciate urology recommendations. Suprapubic catheter in place, last changed 06/17/16. Abdominal pelvis CT 03/06/16 shows resolution of right sided hydronephrosis. Recurrent urinary tract infection Replaced Soto Obtained clean sample which is had mild improvement Urine culture with multiple organisms Serratia, Pseudomonas, enterococcus, all of which are new bacteria from previous infections. Likely secondary to suprapubic catheter. Patient started on Rocephin, which would be in adequate coverage due to the multiple organism, however I believe is contamination. Considering patient is asymptomatic, afebrile, no leukocytosis. Repeat culture after Soto replaced shows 10-50,000 colonies mixed leticia Discontinue antibiotics Elevated BUN, stable Continue fluid flushes via PEG tube to avoid dehydration. Stage I decubitus ulcer, sacral skin tear: Continue wound care. Palliative care evaluation According to palliative care notes. Family wishes aggressive management, they are expecting him to improve, go to a rehabilitation facility and then improve enough to go home. They are deferring hospice. DVT prophylaxis: SCDs. Avoid chemical prophylaxis secondary to GI bleed. Discharge Planning Discharge planning per case management Jaguar Walker Jun 20, 2016 10:16
[2016-06-20 20:00] VITALS: BP 100/72; PULSE 82; RESP 18; TEMP 97.1; O2SAT 97
[2016-06-21] MEDS: MIDODRINE 5 MG TAB PO SCH ×3 (05:48→17:34)
[2016-06-21 08:00] VITALS: BP 96/60; PULSE 73; RESP 20; TEMP 97.4; O2SAT 98
[2016-06-21] MEDS: LANSOPRAZOLE SOLUTAB 30 MG TAB PEG SCH (08:48)
[2016-06-21] MEDS: ALLOPURINOL 100 MG TAB PEG SCH (08:48)
[2016-06-21] MEDS: NYSTATIN 100,000 U/GM OINT 15 GM TUBE TOPICAL SCH ×2 (08:49→22:18)
[2016-06-21] MEDS: FREE WATER G-TUBE SCH (08:51)
--- NOTE | 2016-06-21 10:14 | HHI.PR ---
Subjective Remarks Patient seen and examined today. Patient denies any new complaints. No change in clinical status. This record was reviewed, no acute events overnight, present treatment plan is unchanged. Awaiting case management for discharge planning Objective Vitals Vital Signs Date Time Temp Pulse Resp B/P Pulse Ox O2 Delivery O2 Flow Rate FiO2 06/21/16 08:00 97.4 73 20 96/60 98 06/20/16 20:00 97.1 82 18 100/72 97 I/O 06/20/16 06/20/16 06/20/16 06/21/16 06/21/16 06/21/16 07:00 15:00 23:00 07:00 15:00 23:00 Intake Total 160 ml Output Total 220 ml 500 ml 250 ml 350 ml Balance -60 ml -500 ml -250 ml -350 ml Tube Feeding 60 ml Other 100 ml Output Urine Total 220 ml 500 ml 250 ml 350 ml # Bowel Movements 1 0 1 Objective Remarks GENERAL: Well-developed, well-nourished, in no acute distress. Patient awake and alert HEENT: Head is normocephalic without any lesions or masses noted. Facial features are symmetric. Eyes: Extraocular muscles are intact. Conjunctivae were clear. NECK: Trachea midline no deviation. CARDIAC: Regular rhythm, regular rate. S1/S2 are heard. No murmurs gallops or rubs. LUNGS: Clear to auscultation bilaterally. No wheeze, rhonchi or rales. No use of accessory muscles on inspiration or expiration. ABDOMEN: Soft, nontender. Nondistended. Bowel sounds heard in all 4 quadrants. No organomegaly or masses. Negative rebound, negative guarding, suprapubic catheter in place, PEG tube noted EXTREMITIES: No edema, pulses are equal bilaterally. No cyanosis or clubbing NEUROLOGY: Mood and affect appear appropriate. Cranial nerves II through XII grossly intact. Moving all extremities SKIN: Patient's back has skin breakdown on his back and sacral area. Appears to the clinic heat rash which is developing worse because patient refuses to get out of bed. Procedures None Urinary Catheter: Yes (suprapubic catheter) Assessment to: Continue Soto insert reason: Obstruction/Retention Date of Insertion: May 19, 2016 Date of Removal: Jun 19, 2016 A/P Assessment and Plan Dementia with inappropriate behavior, mood disorder improved patient more somnolent today, likely secondary to medication use, patient is afebrile, no tachycardia, no signs of infection. Patient has not had any recurrent inappropriate behavior since increasing the Risperdal Patient has been hospitalized for similar events in 2015 Consulted psychiatry for further evaluation, who indicated that this is a frontal lobe dementia Risperdal discontinued at family's request Continue Remeron Back rash Wound care nurse consulted. Which did indicate scattered areas of partial- thickness skin loss noted to gluteal cleft. Back. Recommended to turn patient every 2 hours. Instructed nursing staff to keep clean, patient to get out of bed at least 3 times daily. Parkinson's disease: Patient has dementia and resting tremor. Chronic, stable. Weakness: Continue physical therapy Nursing staff to get patient up out of bed at least 3 times daily GI bleed with presenting of Upper GI bleed, patient with intermittent rectal bleeding: Resolved Hemoglobin continues to remain stable GI was following and reevaluated on 05/04/16 Presumed hemorrhoids, continue Anusol HC for 2 weeks Continue PPI. Protein calorie malnutrition: Improving Consulted dietitian who indicated that patient may be converted to bolus feeding Jevity 1.5, 6 cans per day. 1.5 cans that 0800 and 2000, 1 can at 1100, 1400, 1700 Prealbumin level 24 Hypotension with episodes of hypertension: Stable Blood pressure labile. Continue monitor blood pressure Continue Midodrine. Mild obstructive uropathy: Resolved. Appreciate urology recommendations. Suprapubic catheter in place, last changed 06/17/16. Abdominal pelvis CT 03/06/16 shows resolution of right sided hydronephrosis. Recurrent urinary tract infection Replaced Soto Obtained clean sample which is had mild improvement Urine culture with multiple organisms Serratia, Pseudomonas, enterococcus, all of which are new bacteria from previous infections. Likely secondary to suprapubic catheter. Patient started on Rocephin, which would be in adequate coverage due to the multiple organism, however I believe is contamination. Considering patient is asymptomatic, afebrile, no leukocytosis. Repeat culture after Soto replaced shows 10-50,000 colonies mixed leticia Discontinue antibiotics Elevated BUN, stable Continue fluid flushes via PEG tube to avoid dehydration. Stage I decubitus ulcer, sacral skin tear: Continue wound care. Palliative care evaluation According to palliative care notes. Family wishes aggressive management, they are expecting him to improve, go to a rehabilitation facility and then improve enough to go home. They are deferring hospice. DVT prophylaxis: SCDs. Avoid chemical prophylaxis secondary to GI bleed. Discharge Planning Discharge planning per case management Jaguar Walker Jun 21, 2016 10:14
[2016-06-21 22:40] VITALS: BP 103/72; PULSE 69; RESP 16; TEMP 97.3; O2SAT 96
[2016-06-22] MEDS: MIDODRINE 5 MG TAB PO SCH ×3 (05:48→17:24)
[2016-06-22 08:00] VITALS: BP 97/61; PULSE 63; RESP 16; TEMP 98.5; O2SAT 95
[2016-06-22] MEDS: LANSOPRAZOLE SOLUTAB 30 MG TAB PEG SCH (08:22)
[2016-06-22] MEDS: ALLOPURINOL 100 MG TAB PEG SCH (08:22)
[2016-06-22] MEDS: FREE WATER G-TUBE SCH (08:23)
[2016-06-22] MEDS: NYSTATIN 100,000 U/GM OINT 15 GM TUBE TOPICAL SCH ×2 (08:24→20:32)
--- NOTE | 2016-06-22 10:26 | HHI.PR ---
Subjective Remarks Patient seen and examined today. Patient denies any new complaints. No change in clinical status. This record was reviewed, no acute events overnight, no change present treatment plan. Awaiting case management for discharge planning Objective Vitals Vital Signs Date Time Temp Pulse Resp B/P Pulse Ox O2 Delivery O2 Flow Rate FiO2 06/22/16 08:00 98.5 63 16 97/61 95 06/21/16 22:40 97.3 69 16 103/72 96 I/O 06/21/16 06/21/16 06/21/16 06/22/16 06/22/16 06/22/16 07:00 15:00 23:00 07:00 15:00 23:00 Intake Total 1605 ml Output Total 350 ml 400 ml 450 ml 350 ml Balance -350 ml -400 ml 1155 ml -350 ml Tube Feeding 1005 ml Other 600 ml Output Urine Total 350 ml 400 ml 450 ml 350 ml # Bowel Movements 1 2 1 1 Objective Remarks GENERAL: Well-developed, well-nourished, in no acute distress. Patient awake and alert HEENT: Head is normocephalic without any lesions or masses noted. Facial features are symmetric. Eyes: Extraocular muscles are intact. Conjunctivae were clear. NECK: Trachea midline no deviation. CARDIAC: Regular rhythm, regular rate. S1/S2 are heard. No murmurs gallops or rubs. LUNGS: Clear to auscultation bilaterally. No wheeze, rhonchi or rales. No use of accessory muscles on inspiration or expiration. ABDOMEN: Soft, nontender. Nondistended. Bowel sounds heard in all 4 quadrants. No organomegaly or masses. Negative rebound, negative guarding, suprapubic catheter in place, PEG tube noted EXTREMITIES: No edema, pulses are equal bilaterally. No cyanosis or clubbing NEUROLOGY: Mood and affect appear appropriate. Cranial nerves II through XII grossly intact. Moving all extremities SKIN: Patient's back has skin breakdown on his back and sacral area. Appears to the clinic heat rash which is developing worse because patient refuses to get out of bed. Procedures None Urinary Catheter: Yes (suprapubic catheter) Assessment to: Continue Date of Insertion: Jun 17, 2016 Date of Removal: Jun 17, 2016 Vascular Central Line Catheter: No A/P Assessment and Plan Dementia with inappropriate behavior, mood disorder improved patient more somnolent today, likely secondary to medication use, patient is afebrile, no tachycardia, no signs of infection. Patient has not had any recurrent inappropriate behavior since increasing the Risperdal Patient has been hospitalized for similar events in 2015 Consulted psychiatry for further evaluation, who indicated that this is a frontal lobe dementia Risperdal discontinued at family's request Continue Remeron Back rash Wound care nurse consulted. Which did indicate scattered areas of partial- thickness skin loss noted to gluteal cleft. Back. Recommended to turn patient every 2 hours. Instructed nursing staff to keep clean, patient to get out of bed at least 3 times daily. Parkinson's disease: Patient has dementia and resting tremor. Chronic, stable. Weakness: Continue physical therapy Nursing staff to get patient up out of bed at least 3 times daily GI bleed with presenting of Upper GI bleed, patient with intermittent rectal bleeding: Resolved Hemoglobin continues to remain stable GI was following and reevaluated on 05/04/16 Presumed hemorrhoids, continue Anusol HC for 2 weeks Continue PPI. Protein calorie malnutrition: Improving Consulted dietitian who indicated that patient may be converted to bolus feeding Jevity 1.5, 6 cans per day. 1.5 cans that 0800 and 2000, 1 can at 1100, 1400, 1700 Prealbumin level 24 Hypotension with episodes of hypertension: Stable Blood pressure labile. Continue monitor blood pressure Continue Midodrine. Mild obstructive uropathy: Resolved. Appreciate urology recommendations. Suprapubic catheter in place, last changed 06/17/16. Abdominal pelvis CT 03/06/16 shows resolution of right sided hydronephrosis. Recurrent urinary tract infection Replaced Soto Obtained clean sample which is had mild improvement Urine culture with multiple organisms Serratia, Pseudomonas, enterococcus, all of which are new bacteria from previous infections. Likely secondary to suprapubic catheter. Patient started on Rocephin, which would be in adequate coverage due to the multiple organism, however I believe is contamination. Considering patient is asymptomatic, afebrile, no leukocytosis. Repeat culture after Soto replaced shows 10-50,000 colonies mixed leticia Discontinue antibiotics Elevated BUN, stable Continue fluid flushes via PEG tube to avoid dehydration. Stage I decubitus ulcer, sacral skin tear: Continue wound care. Palliative care evaluation According to palliative care notes. Family wishes aggressive management, they are expecting him to improve, go to a rehabilitation facility and then improve enough to go home. They are deferring hospice. DVT prophylaxis: SCDs. Avoid chemical prophylaxis secondary to GI bleed. Discharge Planning Discharge planning per case management Jaguar Walker Jun 22, 2016 10:26
[2016-06-22 20:00] VITALS: BP 106/62; PULSE 71; RESP 22; TEMP 96.8; O2SAT 95
[2016-06-22] MEDS: MIRTAZAPINE 15 MG TAB PEG SCH (20:32)
[2016-06-23] MEDS: MIDODRINE 5 MG TAB PO SCH ×3 (05:45→18:11)
[2016-06-23 08:00] VITALS: BP 97/57; PULSE 60; RESP 18; TEMP 97; O2SAT 96
[2016-06-23] MEDS: ALLOPURINOL 100 MG TAB PEG SCH (08:38)
[2016-06-23] MEDS: LANSOPRAZOLE SOLUTAB 30 MG TAB PEG SCH (08:38)
[2016-06-23] MEDS: NYSTATIN 100,000 U/GM OINT 15 GM TUBE TOPICAL SCH ×2 (08:39→20:52)
[2016-06-23] MEDS: FREE WATER G-TUBE SCH (08:39)
--- NOTE | 2016-06-23 10:07 | HHI.PR ---
Subjective Remarks This record was reviewed, no acute events overnight, no change in present treatment plan. Awaiting case management for discharge planning. Patient seen and examined today. Patient denies any new complaints. No change in clinical status. Objective Vitals Vital Signs Date Time Temp Pulse Resp B/P Pulse Ox O2 Delivery O2 Flow Rate FiO2 06/23/16 08:00 97.0 60 18 97/57 96 06/22/16 20:00 96.8 71 22 106/62 95 I/O 06/22/16 06/22/16 06/22/16 06/23/16 06/23/16 06/23/16 07:00 15:00 23:00 07:00 15:00 23:00 Intake Total 1880 ml 420 ml Output Total 350 ml 750 ml 400 ml 400 ml Balance -350 ml -750 ml 1480 ml 20 ml Tube Feeding 1080 ml 360 ml Other 800 ml 60 ml Output Urine Total 350 ml 750 ml 400 ml 400 ml # Bowel Movements 1 1 1 1 Objective Remarks GENERAL: Well-developed, well-nourished, in no acute distress. Patient awake and alert HEENT: Head is normocephalic without any lesions or masses noted. Facial features are symmetric. Eyes: Extraocular muscles are intact. Conjunctivae were clear. NECK: Trachea midline no deviation. CARDIAC: Regular rhythm, regular rate. S1/S2 are heard. No murmurs gallops or rubs. LUNGS: Clear to auscultation bilaterally. No wheeze, rhonchi or rales. No use of accessory muscles on inspiration or expiration. ABDOMEN: Soft, nontender. Nondistended. Bowel sounds heard in all 4 quadrants. No organomegaly or masses. Negative rebound, negative guarding, suprapubic catheter in place, PEG tube noted EXTREMITIES: No edema, pulses are equal bilaterally. No cyanosis or clubbing NEUROLOGY: Mood and affect appear appropriate. Cranial nerves II through XII grossly intact. Moving all extremities SKIN: Patient's back has skin breakdown on his back and sacral area. Appears to the clinic heat rash which is developing worse because patient refuses to get out of bed. Procedures None Urinary Catheter: Yes (suprapubic catheter) Assessment to: Continue Soto insert reason: Obstruction/Retention Date of Insertion: Jun 17, 2016 Date of Removal: Jun 17, 2016 Vascular Central Line Catheter: No A/P Assessment and Plan Dementia with inappropriate behavior, mood disorder improved patient more somnolent today, likely secondary to medication use, patient is afebrile, no tachycardia, no signs of infection. Patient has not had any recurrent inappropriate behavior since increasing the Risperdal Patient has been hospitalized for similar events in 2015 Consulted psychiatry for further evaluation, who indicated that this is a frontal lobe dementia Risperdal discontinued at family's request Continue Remeron Back rash Wound care nurse consulted. Which did indicate scattered areas of partial- thickness skin loss noted to gluteal cleft. Back. Recommended to turn patient every 2 hours. Instructed nursing staff to keep clean, patient to get out of bed at least 3 times daily. Parkinson's disease: Patient has dementia and resting tremor. Chronic, stable. Weakness: Continue physical therapy Nursing staff to get patient up out of bed at least 3 times daily GI bleed with presenting of Upper GI bleed, patient with intermittent rectal bleeding: Resolved Hemoglobin continues to remain stable GI was following and reevaluated on 05/04/16 Presumed hemorrhoids, continue Anusol HC for 2 weeks Continue PPI. Protein calorie malnutrition: Improving Consulted dietitian who indicated that patient may be converted to bolus feeding Jevity 1.5, 6 cans per day. 1.5 cans that 0800 and 2000, 1 can at 1100, 1400, 1700 Prealbumin level 24 Hypotension with episodes of hypertension: Stable Blood pressure labile. Continue monitor blood pressure Continue Midodrine. Mild obstructive uropathy: Resolved. Appreciate urology recommendations. Suprapubic catheter in place, last changed 06/17/16. Abdominal pelvis CT 03/06/16 shows resolution of right sided hydronephrosis. Recurrent urinary tract infection Replaced Soto Obtained clean sample which is had mild improvement Urine culture with multiple organisms Serratia, Pseudomonas, enterococcus, all of which are new bacteria from previous infections. Likely secondary to suprapubic catheter. Patient started on Rocephin, which would be in adequate coverage due to the multiple organism, however I believe is contamination. Considering patient is asymptomatic, afebrile, no leukocytosis. Repeat culture after Soto replaced shows 10-50,000 colonies mixed leticia Discontinue antibiotics Elevated BUN, stable Continue fluid flushes via PEG tube to avoid dehydration. Stage I decubitus ulcer, sacral skin tear: Continue wound care. Palliative care evaluation According to palliative care notes. Family wishes aggressive management, they are expecting him to improve, go to a rehabilitation facility and then improve enough to go home. They are deferring hospice. DVT prophylaxis: SCDs. Avoid chemical prophylaxis secondary to GI bleed. Discharge Planning Discharge planning per case management Jaguar Walker Jun 23, 2016 10:07
[2016-06-23 20:00] VITALS: BP 109/66; PULSE 80; RESP 20; TEMP 98.3; O2SAT 96
[2016-06-23] MEDS: MIRTAZAPINE 15 MG TAB PEG SCH (20:53)
[2016-06-24] MEDS: MIDODRINE 5 MG TAB PO SCH ×3 (06:33→17:04)
[2016-06-24 08:00] VITALS: BP 104/70; PULSE 74; RESP 20; TEMP 96.4; O2SAT 95
[2016-06-24] MEDS: FREE WATER G-TUBE SCH (09:00)
[2016-06-24] MEDS: ALLOPURINOL 100 MG TAB PEG SCH (09:43)
[2016-06-24] MEDS: LANSOPRAZOLE SOLUTAB 30 MG TAB PEG SCH (09:43)
[2016-06-24] MEDS: NYSTATIN 100,000 U/GM OINT 15 GM TUBE TOPICAL SCH ×2 (09:44→22:02)
--- NOTE | 2016-06-24 11:17 | HHI.PR ---
Subjective Remarks Patient seen and examined today. Patient has any new complaints. No change in clinical status. Objective Vitals Vital Signs Date Time Temp Pulse Resp B/P Pulse Ox O2 Delivery O2 Flow Rate FiO2 06/24/16 08:00 96.4 74 20 104/70 95 06/23/16 20:00 98.3 80 20 109/66 96 I/O 06/23/16 06/23/16 06/23/16 06/24/16 06/24/16 06/24/16 07:00 15:00 23:00 07:00 15:00 23:00 Intake Total 420 ml 2140 ml Output Total 400 ml 650 ml 300 ml Balance 20 ml 1490 ml -300 ml IV Total 0 ml Tube Feeding 360 ml 1440 ml Other 60 ml 700 ml Output Urine Total 400 ml 650 ml 300 ml # Bowel Movements 1 3 2 Objective Remarks GENERAL: Well-developed, well-nourished, in no acute distress. Patient awake and alert HEENT: Head is normocephalic without any lesions or masses noted. Facial features are symmetric. Eyes: Extraocular muscles are intact. Conjunctivae were clear. NECK: Trachea midline no deviation. CARDIAC: Regular rhythm, regular rate. S1/S2 are heard. No murmurs gallops or rubs. LUNGS: Clear to auscultation bilaterally. No wheeze, rhonchi or rales. No use of accessory muscles on inspiration or expiration. ABDOMEN: Soft, nontender. Nondistended. Bowel sounds heard in all 4 quadrants. No organomegaly or masses. Negative rebound, negative guarding, suprapubic catheter in place, PEG tube noted EXTREMITIES: No edema, pulses are equal bilaterally. No cyanosis or clubbing NEUROLOGY: Mood and affect appear appropriate. Cranial nerves II through XII grossly intact. Moving all extremities SKIN: Patient's back has skin breakdown on his back and sacral area. Appears to the clinic heat rash which is developing worse because patient refuses to get out of bed. Procedures None Urinary Catheter: Yes (suprapubic catheter) Assessment to: Continue Soto insert reason: Obstruction/Retention Date of Insertion: Jun 17, 2016 Date of Removal: Jun 17, 2016 Vascular Central Line Catheter: No A/P Assessment and Plan Dementia with inappropriate behavior, mood disorder improved patient more somnolent today, likely secondary to medication use, patient is afebrile, no tachycardia, no signs of infection. Patient has not had any recurrent inappropriate behavior since increasing the Risperdal Patient has been hospitalized for similar events in 2015 Consulted psychiatry for further evaluation, who indicated that this is a frontal lobe dementia Risperdal discontinued at family's request Continue Remeron Back rash Wound care nurse consulted. Which did indicate scattered areas of partial- thickness skin loss noted to gluteal cleft. Back. Recommended to turn patient every 2 hours. Instructed nursing staff to keep clean, patient to get out of bed at least 3 times daily. Parkinson's disease: Patient has dementia and resting tremor. Chronic, stable. Weakness: Continue physical therapy Nursing staff to get patient up out of bed at least 3 times daily GI bleed with presenting of Upper GI bleed, patient with intermittent rectal bleeding: Resolved Hemoglobin continues to remain stable GI was following and reevaluated on 05/04/16 Presumed hemorrhoids, continue Anusol HC for 2 weeks Continue PPI. Protein calorie malnutrition: Improving Consulted dietitian who indicated that patient may be converted to bolus feeding Jevity 1.5, 6 cans per day. 1.5 cans that 0800 and 2000, 1 can at 1100, 1400, 1700 Prealbumin level 24 Hypotension with episodes of hypertension: Stable Blood pressure labile. Continue monitor blood pressure Continue Midodrine. Mild obstructive uropathy: Resolved. Appreciate urology recommendations. Suprapubic catheter in place, last changed 06/17/16. Abdominal pelvis CT 03/06/16 shows resolution of right sided hydronephrosis. Recurrent urinary tract infection Replaced Soto Obtained clean sample which is had mild improvement Urine culture with multiple organisms Serratia, Pseudomonas, enterococcus, all of which are new bacteria from previous infections. Likely secondary to suprapubic catheter. Patient started on Rocephin, which would be in adequate coverage due to the multiple organism, however I believe is contamination. Considering patient is asymptomatic, afebrile, no leukocytosis. Repeat culture after Soto replaced shows 10-50,000 colonies mixed leticia Discontinue antibiotics Elevated BUN, stable Continue fluid flushes via PEG tube to avoid dehydration. Stage I decubitus ulcer, sacral skin tear: Continue wound care. Palliative care evaluation According to palliative care notes. Family wishes aggressive management, they are expecting him to improve, go to a rehabilitation facility and then improve enough to go home. They are deferring hospice. DVT prophylaxis: SCDs. Avoid chemical prophylaxis secondary to GI bleed. Discharge Planning Discharge planning per case management Jaguar Walker Jun 24, 2016 11:17
[2016-06-24 20:00] VITALS: BP 109/79; PULSE 78; RESP 18; TEMP 97.9; O2SAT 94
[2016-06-24] MEDS: MIRTAZAPINE 15 MG TAB PEG SCH (20:20)
[2016-06-25] MEDS: MIDODRINE 5 MG TAB PO SCH ×3 (06:10→17:05)
[2016-06-25 08:00] VITALS: BP 107/67; PULSE 75; RESP 20; TEMP 96.1; O2SAT 96
[2016-06-25] MEDS: FREE WATER G-TUBE SCH (09:00)
[2016-06-25] MEDS: NYSTATIN 100,000 U/GM OINT 15 GM TUBE TOPICAL SCH ×2 (09:00→20:37)
[2016-06-25] MEDS: LANSOPRAZOLE SOLUTAB 30 MG TAB PEG SCH (09:44)
[2016-06-25] MEDS: ALLOPURINOL 100 MG TAB PEG SCH (09:44)
--- NOTE | 2016-06-25 12:25 | HHI.PR ---
Subjective Remarks No acute complaints. No change in clinical status. Objective Vitals Vital Signs Date Time Temp Pulse Resp B/P Pulse Ox O2 Delivery O2 Flow Rate FiO2 06/25/16 08:00 96.1 75 20 107/67 96 06/24/16 20:00 97.9 78 18 109/79 94 I/O 06/24/16 06/24/16 06/24/16 06/25/16 06/25/16 06/25/16 07:00 15:00 23:00 07:00 15:00 23:00 Intake Total 225 ml 2440 ml Output Total 300 ml 400 ml 250 ml 400 ml Balance -300 ml -175 ml 2190 ml -400 ml Intake Oral 25 ml Tube Feeding 1440 ml Other 200 ml 1000 ml Output Urine Total 300 ml 400 ml 250 ml 400 ml # Bowel Movements 2 1 0 2 Objective Remarks GENERAL: Well developed male in no apparent distress sleeping when I enter the room. CARDIOVASCULAR: Regular rate and rhythm. RESPIRATORY: No accessory muscle use. CTAB. GASTROINTESTINAL: Abdomen soft, nontender, nondistended. NEURO: Arouses to voice. PSYCHIATRIC: Does not speak. Procedures None Urinary Catheter: Yes Assessment to: Continue Soto insert reason: Prolonged Immobilization Vascular Central Line Catheter: No A/P Problem List: (1) Prerenal azotemia ICD Code: R79.89 Status: Acute Assessment and Plan Upper GI bleeding: Resolved with recurrent rectal bleeding. Hemoglobin stable. GI reevaluated patient on 05/04. Presumed hemorrhoids, s/p Anusol HC for total of 2 weeks. Continue PPI. Protein calorie malnutrition: Improving Consulted dietitian who indicated that patient may be converted to bolus feeding Jevity 1.5 w/ bolus 1.5 cans(360ml) @ 0800 and 2000 and 1-can(240ml) @ 1100, 1400 and 1700. Free Water Flush 100ml before and after each bolus feeding. Ensure Enlive tid and chocolate pudding tid Prealbumin level 25. Patient desired to eat and speech therapy advised puree diet, thin liquids, but patient has not been eating. Code Machine Operator suggested considering appetite stimulant. This was discussed with attending, but we do not believe this would be beneficial for patient and would add unnecessary risk to the patient. Will continue with tube feeds only. Dementia with inappropriate behavior, mood disorder improved Patient had inappropriate behavior which is resolved now. He has been very appropriate for a long time now. Patient has been hospitalized for similar events in 2015 Consulted psychiatry for further evaluation, who indicated that this is a frontal lobe dementia Risperdal 0.25 mg during the day, Risperdal 0.5 mg at night. Risperdal was discontinued per POA request. Continue Remeron Psychiatry was reconsulted and is ok with discontinuation of Risperdal, but recommends Haldol 1-2 mg q12 prn for aggressive behavior and agitation. I have not witnessed any behavior like this. Probable seborrheic dermatitis: Flaky skin to the face and neck. -Improved s/p one time dose of Ketoconazole 2% shampoo. -Monitor need for further treatments. Chalazion: Persistent nodule R upper eyelid. There is no evidence of preseptal cellulitis. -Warm compresses were applied but it was greater than 2 weeks without significant improvement. -Ophthalmology was consulted and evaluated patient on 03/26. S/p warm compresses and Tobradex 4 times a day OD x 2 weeks. Patient was intermittently compliant with eyedrops. -No worsening. Follow-up outpatient. Hypotension: Blood pressure labile. Continue Midodrine. Patient on max dose. Increase free water flushes as needed. Pre-renal azotemia: BUN elevated at 23. Patient receives 100ml free water flush before and after each bolus feeding. Free water flushes were increased to avoid dehydration adding 200 mL between bolus feeds. Stage I decubitus ulcer, sacral skin tear: Continue wound care. Frequent turning of patient. 06/13: I spoke with wound care nurse; no evidence of pressure ulcer to buttocks at this time. Candidal infection: buttocks affected with satellite lesions to the perineum. Continue nystatin ointment. Mild obstructive uropathy: Resolved. Appreciate urology recommendations. Suprapubic catheter to be changed monthly; was supposed to be changed on 06/17 and an order was again placed on 06/19 but it still states 05/19 as date of last urinary catheter change. I discussed this with Meaghan TAVERAS who will investigate whether the catheter was actually changed and if it was not she states it will be changed. Abdominal pelvis CT 03/06/16 shows resolution of right sided hydronephrosis. Urinary tract infection: Urine culture positive for Proteus mirabilis and GBS on 01/20. Patient completed course of antibiotics. Abdominal pelvis CT 03/06 shows decompressed bladder with circumferential bladder wall thickening and intraluminal air possibly indicating cystitis, but the patient had been afebrile with normal WBC count. Urine culture 05/31 with Serratia marcescens, Pseudomonas, and Enterococcus faecalis. Patient was treated with ceftriaxone. Repeat urine culture on 06/04 only reveals contaminants. Weakness: Continue physical therapy Nursing staff to get patient up out of bed at least 3 times daily Palliative care evaluation According to palliative care notes family wishes aggressive management, they are expecting him to improve, go to a rehabilitation facility and then improve enough to go home. They are declining hospice. Possible rash R face: Patient indicated that he punched himself in the face. There is no evidence of bony injury, likely bruised. Erythema over the R cheek appeared as a possible rash, and a few papules present with pustule to the nose , but no vesicular lesions evident. No vision issues reported. If does not improve patient may require topical treatment. DVT prophylaxis: SCDs. Avoid chemical prophylaxis secondary to GI bleed. Discharge Planning CM requested Tariq Hubbard to evaluate for placement. Madeline Ortez Jun 25, 2016 12:24
[2016-06-25 20:00] VITALS: BP_SYST 84; BP_SYST 96; BP_DIAS 50; BP_DIAS 57; PULSE 67; RESP 16; TEMP 98.9; O2SAT 95
[2016-06-25] MEDS: MIRTAZAPINE 15 MG TAB PEG SCH (20:36)
[2016-06-26] MEDS: MIDODRINE 5 MG TAB PO SCH ×4 (07:00→17:29)
[2016-06-26] MEDS: LANSOPRAZOLE SOLUTAB 30 MG TAB PEG SCH (07:37)
[2016-06-26] MEDS: ALLOPURINOL 100 MG TAB PEG SCH (07:37)
[2016-06-26 08:35] VITALS: BP 121/66; PULSE 65; RESP 14; TEMP 97.3; O2SAT 95
[2016-06-26] MEDS: NYSTATIN 100,000 U/GM OINT 15 GM TUBE TOPICAL SCH ×2 (09:00→20:43)
[2016-06-26] MEDS: FREE WATER G-TUBE SCH (09:00)
--- NOTE | 2016-06-26 12:58 | HHI.PR ---
Subjective Remarks No acute complaints. No change in clinical status. Objective Vitals Vital Signs Date Time Temp Pulse Resp B/P Pulse Ox O2 Delivery O2 Flow Rate FiO2 06/26/16 08:35 97.3 65 14 121/66 95 06/25/16 20:00 98.9 67 16 84/57 95 96/50 I/O 06/25/16 06/25/16 06/25/16 06/26/16 06/26/16 06/26/16 07:00 15:00 23:00 07:00 15:00 23:00 Intake Total 1000 ml Output Total 400 ml 400 ml 250 ml 525 ml Balance -400 ml 600 ml -250 ml -525 ml Tube Feeding 1000 ml Output Urine Total 400 ml 400 ml 250 ml 525 ml # Bowel Movements 2 1 1 1 Objective Remarks GENERAL: Well developed male in no apparent distress sleeping when I enter the room. CARDIOVASCULAR: Regular rate and rhythm. RESPIRATORY: No accessory muscle use. CTAB. GASTROINTESTINAL: Abdomen soft, nontender, nondistended. NEURO: Arouses to voice. PSYCHIATRIC: Does not speak. Procedures None Urinary Catheter: No Vascular Central Line Catheter: No A/P Problem List: (1) Prerenal azotemia ICD Code: R79.89 Status: Acute Assessment and Plan Upper GI bleeding: Resolved with recurrent rectal bleeding. Hemoglobin stable. GI reevaluated patient on 05/04. Presumed hemorrhoids, s/p Anusol HC for total of 2 weeks. Continue PPI. Protein calorie malnutrition: Improving Consulted dietitian who indicated that patient may be converted to bolus feeding Jevity 1.5 w/ bolus 1.5 cans(360ml) @ 0800 and 2000 and 1-can(240ml) @ 1100, 1400 and 1700. Free Water Flush 100ml before and after each bolus feeding. Ensure Enlive tid and chocolate pudding tid Prealbumin level 25. Patient desired to eat and speech therapy advised puree diet, thin liquids, but patient has not been eating. Liner Worker suggested considering appetite stimulant. This was discussed with attending, but we do not believe this would be beneficial for patient and would add unnecessary risk to the patient. Will continue with tube feeds only. Dementia with inappropriate behavior, mood disorder improved Patient had inappropriate behavior which is resolved now. He has been very appropriate for a long time now. Patient has been hospitalized for similar events in 2015 Consulted psychiatry for further evaluation, who indicated that this is a frontal lobe dementia Risperdal 0.25 mg during the day, Risperdal 0.5 mg at night. Risperdal was discontinued per POA request. Continue Remeron Psychiatry was reconsulted and is ok with discontinuation of Risperdal, but recommends Haldol 1-2 mg q12 prn for aggressive behavior and agitation. I have not witnessed any behavior like this. Probable seborrheic dermatitis: Flaky skin to the face and neck. -Improved s/p one time dose of Ketoconazole 2% shampoo. -Monitor need for further treatments. Chalazion: Persistent nodule R upper eyelid. There is no evidence of preseptal cellulitis. -Warm compresses were applied but it was greater than 2 weeks without significant improvement. -Ophthalmology was consulted and evaluated patient on 03/26. S/p warm compresses and Tobradex 4 times a day OD x 2 weeks. Patient was intermittently compliant with eyedrops. -No worsening. Follow-up outpatient. Hypotension: Blood pressure labile. Continue Midodrine. Patient on max dose. Increase free water flushes as needed. Pre-renal azotemia: BUN elevated at 23. Patient receives 100ml free water flush before and after each bolus feeding. Free water flushes were increased to avoid dehydration adding 200 mL between bolus feeds. Stage I decubitus ulcer, sacral skin tear: Continue wound care. Frequent turning of patient. 06/13: I spoke with wound care nurse; no evidence of pressure ulcer to buttocks at this time. Candidal infection: buttocks affected with satellite lesions to the perineum. Continue nystatin ointment. Mild obstructive uropathy: Resolved. Appreciate urology recommendations. Suprapubic catheter to be changed monthly; was supposed to be changed on 06/17 and an order was again placed on 06/19 but it still states 05/19 as date of last urinary catheter change. I discussed this with RN on 06/26 who was going to investigate whether the catheter was actually changed and if it was not, change it, but it is still documented as 05/19 in EMR today. Will discuss with RN again and make sure catheter is changed. Abdominal pelvis CT 03/06/16 shows resolution of right sided hydronephrosis. Urinary tract infection: Urine culture positive for Proteus mirabilis and GBS on 01/20. Patient completed course of antibiotics. Abdominal pelvis CT 03/06 shows decompressed bladder with circumferential bladder wall thickening and intraluminal air possibly indicating cystitis, but the patient had been afebrile with normal WBC count. Urine culture 05/31 with Serratia marcescens, Pseudomonas, and Enterococcus faecalis. Patient was treated with ceftriaxone. Repeat urine culture on 06/04 only reveals contaminants. Weakness: Continue physical therapy Nursing staff to get patient up out of bed at least 3 times daily Palliative care evaluation According to palliative care notes family wishes aggressive management, they are expecting him to improve, go to a rehabilitation facility and then improve enough to go home. They are declining hospice. Possible rash R face: Patient indicated that he punched himself in the face. There is no evidence of bony injury, likely bruised. Erythema over the R cheek appeared as a possible rash, and a few papules present with pustule to the nose , but no vesicular lesions evident. No vision issues reported. If does not improve patient may require topical treatment. DVT prophylaxis: SCDs. Avoid chemical prophylaxis secondary to GI bleed. Discharge Planning CM requested Tariq Hubbard to evaluate for placement. Madeline Ortez Jun 26, 2016 12:58
[2016-06-26 20:00] VITALS: BP 111/70; PULSE 66; RESP 20; TEMP 97.6; O2SAT 95
[2016-06-26] MEDS: MIRTAZAPINE 15 MG TAB PEG SCH (20:38)
[2016-06-27] MEDS: MIDODRINE 5 MG TAB PO SCH ×3 (06:24→16:54)
[2016-06-27 08:43] VITALS: BP 114/71; PULSE 78; RESP 17; TEMP 95.9; O2SAT 96
[2016-06-27] MEDS: NYSTATIN 100,000 U/GM OINT 15 GM TUBE TOPICAL SCH ×2 (09:00→20:59)
[2016-06-27] MEDS: FREE WATER G-TUBE SCH (09:00)
[2016-06-27] MEDS: LANSOPRAZOLE SOLUTAB 30 MG TAB PEG SCH (10:27)
[2016-06-27] MEDS: ALLOPURINOL 100 MG TAB PEG SCH (10:27)
--- NOTE | 2016-06-27 13:06 | HHI.PR ---
Subjective Remarks No acute complaints. No change in clinical status. Objective Vitals Vital Signs Date Time Temp Pulse Resp B/P Pulse Ox O2 Delivery O2 Flow Rate FiO2 06/27/16 08:43 95.9 78 17 114/71 96 06/26/16 20:00 97.6 66 20 111/70 95 I/O 06/26/16 06/26/16 06/26/16 06/27/16 06/27/16 06/27/16 07:00 15:00 23:00 07:00 15:00 23:00 Intake Total 1080 ml 800 ml 50 ml Output Total 525 ml 425 ml 550 ml 400 ml Balance -525 ml 655 ml 250 ml -350 ml Tube Feeding 1080 ml 600 ml Other 200 ml 50 ml Output Urine Total 525 ml 425 ml 550 ml 400 ml # Bowel Movements 1 1 2 2 Objective Remarks GENERAL: Well developed male in no apparent distress. SKIN: Mildly erythematous rash improved to R face. CARDIOVASCULAR: Regular rate and rhythm. RESPIRATORY: No accessory muscle use. CTAB. GASTROINTESTINAL: Abdomen soft, nontender, nondistended. NEURO: Arouses to voice. PSYCHIATRIC: Does not speak. Procedures None Urinary Catheter: Yes Assessment to: Continue Soto insert reason: Prolonged Immobilization Date of Insertion: Jun 23, 2016 Vascular Central Line Catheter: No A/P Problem List: (1) Prerenal azotemia ICD Code: R79.89 Status: Acute Assessment and Plan Upper GI bleeding: Resolved with recurrent rectal bleeding. Hemoglobin stable. GI reevaluated patient on 05/04. Presumed hemorrhoids, s/p Anusol HC for total of 2 weeks. Continue PPI. Protein calorie malnutrition: Improving Consulted dietitian who indicated that patient may be converted to bolus feeding Jevity 1.5 w/ bolus 1.5 cans(360ml) @ 0800 and 2000 and 1-can(240ml) @ 1100, 1400 and 1700. Free Water Flush 100ml before and after each bolus feeding. Ensure Enlive tid and chocolate pudding tid Prealbumin level 25. Patient desired to eat and speech therapy advised puree diet, thin liquids, but patient has not been eating. Developer Relations Manager suggested considering appetite stimulant. This was discussed with attending, but we do not believe this would be beneficial for patient and would add unnecessary risk to the patient. Will continue with tube feeds only. Dementia with inappropriate behavior, mood disorder improved Patient had inappropriate behavior which is resolved now. He has been very appropriate for a long time now. Patient has been hospitalized for similar events in 2015 Consulted psychiatry for further evaluation, who indicated that this is a frontal lobe dementia Risperdal 0.25 mg during the day, Risperdal 0.5 mg at night. Risperdal was discontinued per POA request. Continue Remeron Psychiatry was reconsulted and is ok with discontinuation of Risperdal, but recommends Haldol 1-2 mg q12 prn for aggressive behavior and agitation. I have not witnessed any behavior like this. Probable seborrheic dermatitis: Flaky skin to the face and neck. -Improved s/p one time dose of Ketoconazole 2% shampoo. -Monitor need for further treatments. Chalazion: Persistent nodule R upper eyelid. There is no evidence of preseptal cellulitis. -Warm compresses were applied but it was greater than 2 weeks without significant improvement. -Ophthalmology was consulted and evaluated patient on 03/26. S/p warm compresses and Tobradex 4 times a day OD x 2 weeks. Patient was intermittently compliant with eyedrops. -No worsening. Follow-up outpatient. Hypotension: Blood pressure labile. Continue Midodrine. Patient on max dose. Increase free water flushes as needed. Pre-renal azotemia: BUN elevated at 23. Patient receives 100ml free water flush before and after each bolus feeding. Free water flushes were increased to avoid dehydration adding 200 mL between bolus feeds. Stage I decubitus ulcer, sacral skin tear: Continue wound care. Frequent turning of patient. 06/13: I spoke with wound care nurse; no evidence of pressure ulcer to buttocks at this time. Candidal infection: buttocks affected with satellite lesions to the perineum. Continue nystatin ointment. Mild obstructive uropathy: Resolved. Appreciate urology recommendations. Suprapubic catheter to be changed monthly; it was supposed to be changed on but apparently was never done at that time and was changed on 06/23 per RN although it is still documented as 05/19 in the chart. I spoke with RN today and she will change this in the EMR. Abdominal pelvis CT 03/06/16 shows resolution of right sided hydronephrosis. Urinary tract infection: Urine culture positive for Proteus mirabilis and GBS on 01/20. Patient completed course of antibiotics. Abdominal pelvis CT 03/06 shows decompressed bladder with circumferential bladder wall thickening and intraluminal air possibly indicating cystitis, but the patient had been afebrile with normal WBC count. Urine culture 05/31 with Serratia marcescens, Pseudomonas, and Enterococcus faecalis. Patient was treated with ceftriaxone. Repeat urine culture on 06/04 only reveals contaminants. Weakness: Continue physical therapy Nursing staff to get patient up out of bed at least 3 times daily Palliative care evaluation According to palliative care notes family wishes aggressive management, they are expecting him to improve, go to a rehabilitation facility and then improve enough to go home. They are declining hospice. Possible rash R face: Improved. Patient indicated that he punched himself in the face. There is no evidence of bony injury, possibly bruised. Erythema over the R cheek appeared as a possible rash, and a few papules present with pustule to the nose, but no vesicular lesions evident. No vision issues reported. DVT prophylaxis: SCDs. Avoid chemical prophylaxis secondary to GI bleed. Discharge Planning CM requested [facility] to evaluate for placement. Madeline Ortez Jun 27, 2016 13:06
[2016-06-27 20:00] VITALS: BP 95/62; PULSE 58; RESP 24; TEMP 97.6; O2SAT 95
[2016-06-27] MEDS: MIRTAZAPINE 15 MG TAB PEG SCH (20:59)
[2016-06-28] MEDS: MIDODRINE 5 MG TAB PO SCH ×3 (06:10→17:12)
[2016-06-28 08:00] VITALS: BP 115/67; PULSE 62; RESP 18; TEMP 97.3; O2SAT 94
[2016-06-28] MEDS: ALLOPURINOL 100 MG TAB PEG SCH (08:17)
[2016-06-28] MEDS: LANSOPRAZOLE SOLUTAB 30 MG TAB PEG SCH (08:18)
[2016-06-28] MEDS: FREE WATER G-TUBE SCH (08:18)
[2016-06-28] MEDS: NYSTATIN 100,000 U/GM OINT 15 GM TUBE TOPICAL SCH ×2 (08:18→21:23)
--- NOTE | 2016-06-28 09:16 | HHI.PR ---
Subjective Remarks No acute complaints. No change in clinical status. Objective Vitals Vital Signs Date Time Temp Pulse Resp B/P Pulse Ox O2 Delivery O2 Flow Rate FiO2 06/28/16 08:00 97.3 62 18 115/67 94 Automatic Cuff 06/27/16 20:00 97.6 58 24 95/62 95 I/O 06/27/16 06/27/16 06/27/16 06/28/16 06/28/16 06/28/16 07:00 15:00 23:00 07:00 15:00 23:00 Intake Total 50 ml 0 ml Output Total 400 ml 500 ml 450 ml 400 ml Balance -350 ml -500 ml -450 ml -400 ml Intake Oral 0 ml Other 50 ml Output Urine Total 400 ml 500 ml 450 ml 400 ml # Bowel Movements 2 1 2 Objective Remarks GENERAL: Well developed male in no apparent distress. SKIN: Mildly erythematous rash improved to R face. CARDIOVASCULAR: Regular rate and rhythm. RESPIRATORY: No accessory muscle use. CTAB. GASTROINTESTINAL: Abdomen soft, nontender, nondistended. NEURO: Awake and alert. PSYCHIATRIC: Does not speak. Procedures None Urinary Catheter: Yes Assessment to: Continue Soto insert reason: Prolonged Immobilization Date of Insertion: Jun 17, 2016 Vascular Central Line Catheter: No A/P Problem List: (1) Prerenal azotemia ICD Code: R79.89 Status: Acute Assessment and Plan Upper GI bleeding: Resolved with recurrent rectal bleeding. Hemoglobin stable. GI reevaluated patient on 05/04. Presumed hemorrhoids, s/p Anusol HC for total of 2 weeks. Continue PPI. Protein calorie malnutrition: Improving Consulted dietitian who indicated that patient may be converted to bolus feeding Jevity 1.5 w/ bolus 1.5 cans(360ml) @ 0800 and 2000 and 1-can(240ml) @ 1100, 1400 and 1700. Free Water Flush 100ml before and after each bolus feeding. Ensure Enlive tid and chocolate pudding tid Prealbumin level 25. Patient desired to eat and speech therapy advised puree diet, thin liquids, but patient has not been eating. Hospitalist Program Director suggested considering appetite stimulant. This was discussed with attending, but we do not believe this would be beneficial for patient and would add unnecessary risk to the patient. Will continue with tube feeds only. Dementia with inappropriate behavior, mood disorder improved Patient had inappropriate behavior which is resolved now. He has been very appropriate for a long time now. Patient has been hospitalized for similar events in 2015 Consulted psychiatry for further evaluation, who indicated that this is a frontal lobe dementia Risperdal 0.25 mg during the day, Risperdal 0.5 mg at night. Risperdal was discontinued per POA request. Continue Remeron Psychiatry was reconsulted and is ok with discontinuation of Risperdal, but recommends Haldol 1-2 mg q12 prn for aggressive behavior and agitation. I have not witnessed any behavior like this. Probable seborrheic dermatitis: Flaky skin to the face and neck. -Improved s/p one time dose of Ketoconazole 2% shampoo. -Monitor need for further treatments. Chalazion: Persistent nodule R upper eyelid. There is no evidence of preseptal cellulitis. -Warm compresses were applied but it was greater than 2 weeks without significant improvement. -Ophthalmology was consulted and evaluated patient on 03/26. S/p warm compresses and Tobradex 4 times a day OD x 2 weeks. Patient was intermittently compliant with eyedrops. -No worsening. Follow-up outpatient. Hypotension: Blood pressure labile. Continue Midodrine. Patient on max dose. Increase free water flushes as needed. Pre-renal azotemia: BUN elevated at 23. Patient receives 100ml free water flush before and after each bolus feeding. Free water flushes were increased to avoid dehydration adding 200 mL between bolus feeds. Stage I decubitus ulcer, sacral skin tear: Continue wound care. Frequent turning of patient. 06/13: I spoke with wound care nurse; no evidence of pressure ulcer to buttocks at this time. Candidal infection: buttocks affected with satellite lesions to the perineum. Continue nystatin ointment. Mild obstructive uropathy: Resolved. Appreciate urology recommendations. Suprapubic catheter to be changed monthly; it was last changed on 06/17/16; EMR now reflects this. Abdominal pelvis CT 03/06/16 shows resolution of right sided hydronephrosis. Urinary tract infection: Urine culture positive for Proteus mirabilis and GBS on 01/20. Patient completed course of antibiotics. Abdominal pelvis CT 03/06 shows decompressed bladder with circumferential bladder wall thickening and intraluminal air possibly indicating cystitis, but the patient had been afebrile with normal WBC count. Urine culture 05/31 with Serratia marcescens, Pseudomonas, and Enterococcus faecalis. Patient was treated with ceftriaxone. Repeat urine culture on 06/04 only reveals contaminants. Weakness: Continue physical therapy Nursing staff to get patient up out of bed at least 3 times daily Palliative care evaluation According to palliative care notes family wishes aggressive management, they are expecting him to improve, go to a rehabilitation facility and then improve enough to go home. They are declining hospice. Possible rash R face: Improved. DVT prophylaxis: SCDs. Avoid chemical prophylaxis secondary to GI bleed. Discharge Planning CM requested [facility] to evaluate for placement. Madeline Ortez Jun 28, 2016 09:16 Madeline Ortez Jun 28, 2016 09:16
[2016-06-28 19:45] VITALS: BP 109/68; PULSE 95; RESP 16; TEMP 97.4; O2SAT 93
[2016-06-28] MEDS: MIRTAZAPINE 15 MG TAB PEG SCH (21:22)
[2016-06-29] MEDS: MIDODRINE 5 MG TAB PO SCH ×3 (06:14→17:41)
[2016-06-29 08:00] VITALS: BP 100/67; PULSE 78; RESP 20; TEMP 97.6; O2SAT 93
[2016-06-29] MEDS: LANSOPRAZOLE SOLUTAB 30 MG TAB PEG SCH (08:53)
[2016-06-29] MEDS: ALLOPURINOL 100 MG TAB PEG SCH (08:53)
[2016-06-29] MEDS: FREE WATER G-TUBE SCH (08:54)
[2016-06-29] MEDS: NYSTATIN 100,000 U/GM OINT 15 GM TUBE TOPICAL SCH (08:54)
--- NOTE | 2016-06-29 16:09 | HHI.PR ---
Subjective Remarks Patient evaluated this morning. No acute complaints. No change in clinical status. Objective Vitals Vital Signs Date Time Temp Pulse Resp B/P Pulse Ox O2 Delivery O2 Flow Rate FiO2 06/29/16 08:00 97.6 78 20 100/67 93 06/28/16 19:45 97.4 95 16 109/68 93 I/O 06/28/16 06/28/16 06/28/16 06/29/16 06/29/16 06/29/16 07:00 15:00 23:00 07:00 15:00 23:00 Intake Total 0 ml 200 ml 2440 ml Output Total 400 ml 350 ml 400 ml 550 ml Balance -400 ml -150 ml 2040 ml -550 ml Intake Oral 0 ml 0 ml Tube Feeding 1440 ml Other 200 ml 1000 ml Output Urine Total 400 ml 350 ml 400 ml 550 ml # Bowel Movements 2 1 1 Objective Remarks GENERAL: Well developed male in no apparent distress. SKIN: Mild erythema to R cheek. CARDIOVASCULAR: Regular rate and rhythm. RESPIRATORY: No accessory muscle use. CTAB. GASTROINTESTINAL: Abdomen soft, nontender, nondistended. NEURO: Awake and alert. Tremor L hand. PSYCHIATRIC: Does not speak. Nods to questions. Procedures None Urinary Catheter: Yes Assessment to: Continue Soto insert reason: Prolonged Immobilization Date of Insertion: Jun 17, 2016 Vascular Central Line Catheter: No A/P Problem List: (1) Prerenal azotemia ICD Code: R79.89 Status: Acute Assessment and Plan Upper GI bleeding: Resolved with recurrent rectal bleeding. Hemoglobin stable. GI reevaluated patient on 05/04. Presumed hemorrhoids, s/p Anusol HC for total of 2 weeks. Continue PPI. Protein calorie malnutrition: Improving Consulted dietitian who indicated that patient may be converted to bolus feeding Jevity 1.5 w/ bolus 1.5 cans(360ml) @ 0800 and 2000 and 1-can(240ml) @ 1100, 1400 and 1700. Free Water Flush 100ml before and after each bolus feeding. Ensure Enlive tid and chocolate pudding tid Prealbumin level 25. Patient desired to eat and speech therapy advised puree diet, thin liquids, but patient has not been eating. Dog Catcher suggested considering appetite stimulant. This was discussed with attending, but we do not believe this would be beneficial for patient and would add unnecessary risk to the patient. Will continue with tube feeds only. Dementia with inappropriate behavior, mood disorder improved Patient had inappropriate behavior which is resolved now. He has been very appropriate for a long time now. Patient has been hospitalized for similar events in 2014 Consulted psychiatry for further evaluation, who indicated that this is a frontal lobe dementia Risperdal 0.25 mg during the day, Risperdal 0.5 mg at night. Risperdal was discontinued per POA request. Continue Remeron Psychiatry was reconsulted and is ok with discontinuation of Risperdal, but recommends Haldol 1-2 mg q12 prn for aggressive behavior and agitation. I have not witnessed any behavior like this. Probable seborrheic dermatitis: Flaky skin to the face and neck. -Improved s/p one time dose of Ketoconazole 2% shampoo. -Monitor need for further treatments. Chalazion: Persistent nodule R upper eyelid. There is no evidence of preseptal cellulitis. -Warm compresses were applied but it was greater than 2 weeks without significant improvement. -Ophthalmology was consulted and evaluated patient on 03/26. S/p warm compresses and Tobradex 4 times a day OD x 2 weeks. Patient was intermittently compliant with eyedrops. -No worsening. Follow-up outpatient. Hypotension: Blood pressure labile. Continue Midodrine. Patient on max dose. Increase free water flushes as needed. Pre-renal azotemia: BUN elevated at 23. Patient receives 100ml free water flush before and after each bolus feeding. Free water flushes were increased to avoid dehydration adding 200 mL between bolus feeds. Stage I decubitus ulcer, sacral skin tear: Continue wound care. Frequent turning of patient. 06/13: I spoke with wound care nurse; no evidence of pressure ulcer to buttocks at this time. Candidal infection: buttocks affected with satellite lesions to the perineum. Nurse called me today informed me that rash is still present. -Will discontinue Nystatin and start Clotrimazole. -Nurse is advised to monitor patient for development of pressure ulceration although was previously evaluated by wound care. Mild obstructive uropathy: Resolved. Appreciate urology recommendations. Suprapubic catheter to be changed monthly; it was last changed on 06/17/16; EMR now reflects this. Abdominal pelvis CT 03/06/16 shows resolution of right sided hydronephrosis. Urinary tract infection: Urine culture positive for Proteus mirabilis and GBS on 01/20. Patient completed course of antibiotics. Abdominal pelvis CT 03/06 shows decompressed bladder with circumferential bladder wall thickening and intraluminal air possibly indicating cystitis, but the patient had been afebrile with normal WBC count. Urine culture 05/31 with Serratia marcescens, Pseudomonas, and Enterococcus faecalis. Patient was treated with ceftriaxone. Repeat urine culture on 06/04 only reveals contaminants. Weakness: Continue physical therapy Nursing staff to get patient up out of bed at least 3 times daily Palliative care evaluation According to palliative care notes family wishes aggressive management, they are expecting him to improve, go to a rehabilitation facility and then improve enough to go home. They are declining hospice. Possible rash R face: Improved. DVT prophylaxis: SCDs. Avoid chemical prophylaxis secondary to GI bleed. Discharge Planning CM requested [facility] to evaluate for placement. Madeline Ortez Jun 29, 2016 16:09
[2016-06-29 20:52] VITALS: BP 120/76; PULSE 68; RESP 18; TEMP 97.6; O2SAT 95
[2016-06-29] MEDS: CLOTRIMAZOLE 1% CREAM 15 GM TOPICAL SCH (21:14)
[2016-06-29] MEDS: MIRTAZAPINE 15 MG TAB PEG SCH (21:14)
[2016-06-29] MEDS: DIPHENOXYLATE/ATROPINE 2.5 MG/0.025 MG TAB PO PRN (21:14)
[2016-06-30] MEDS: MIDODRINE 5 MG TAB PO SCH ×3 (05:56→17:09)
[2016-06-30 08:00] VITALS: BP 103/64; PULSE 64; RESP 20; TEMP 96.7; O2SAT 99
[2016-06-30] MEDS: FREE WATER G-TUBE SCH (09:00)
[2016-06-30] MEDS: LANSOPRAZOLE SOLUTAB 30 MG TAB PEG SCH (09:09)
[2016-06-30] MEDS: ALLOPURINOL 100 MG TAB PEG SCH (09:09)
[2016-06-30] MEDS: CLOTRIMAZOLE 1% CREAM 15 GM TOPICAL SCH ×2 (09:10→20:24)
--- NOTE | 2016-06-30 09:13 | HHI.PR ---
Subjective Remarks No acute complaints. No change in clinical status. Objective Vitals Vital Signs Date Time Temp Pulse Resp B/P Pulse Ox O2 Delivery O2 Flow Rate FiO2 06/30/16 08:00 96.7 64 20 103/64 99 06/29/16 20:52 97.6 68 18 120/76 95 I/O 06/29/16 06/29/16 06/29/16 06/30/16 06/30/16 06/30/16 06:59 14:59 22:59 06:59 14:59 22:59 Intake Total 1640 ml 440 ml 560 ml Output Total 550 ml Balance 1090 ml 440 ml 560 ml IV Total 0 ml Tube Feeding 840 ml 240 ml 360 ml Other 800 ml 200 ml 200 ml Output Urine Total 550 ml # Bowel Movements 2 Objective Remarks GENERAL: Well developed male in no apparent distress. CARDIOVASCULAR: Regular rate and rhythm. RESPIRATORY: No accessory muscle use. CTAB. GASTROINTESTINAL: Normoactive bowel sounds. Abdomen soft, nontender, nondistended. NEURO: Awake and alert. PSYCHIATRIC: Does not speak. Nods to questions. Procedures None Urinary Catheter: Yes Assessment to: Continue Soto insert reason: Prolonged Immobilization Date of Insertion: Jun 17, 2016 Vascular Central Line Catheter: No A/P Problem List: (1) Prerenal azotemia ICD Code: R79.89 Status: Acute Assessment and Plan Upper GI bleeding: Resolved with recurrent rectal bleeding. Hemoglobin stable. GI reevaluated patient on 05/04. Presumed hemorrhoids, s/p Anusol HC for total of 2 weeks. Continue PPI. Protein calorie malnutrition: Improving Consulted dietitian who indicated that patient may be converted to bolus feeding Jevity 1.5 w/ bolus 1.5 cans(360ml) @ 0800 and 2000 and 1-can(240ml) @ 1100, 1400 and 1700. Free Water Flush 100ml before and after each bolus feeding. Ensure Enlive tid and chocolate pudding tid Prealbumin level 25. Patient desired to eat and speech therapy advised puree diet, thin liquids, but patient has not been eating. Green Building Design Specialist suggested considering appetite stimulant. This was discussed with attending, but we do not believe this would be beneficial for patient and would add unnecessary risk to the patient. Will continue with tube feeds only. Dementia with inappropriate behavior, mood disorder improved Patient had inappropriate behavior which is resolved now. He has been very appropriate for a long time now. Patient has been hospitalized for similar events in 2015 Consulted psychiatry for further evaluation, who indicated that this is a frontal lobe dementia Risperdal 0.25 mg during the day, Risperdal 0.5 mg at night. Risperdal was discontinued per POA request. Continue Remeron Psychiatry was reconsulted and is ok with discontinuation of Risperdal, but recommends Haldol 1-2 mg q12 prn for aggressive behavior and agitation. I have not witnessed any behavior like this. Probable seborrheic dermatitis: Flaky skin to the face and neck. -Improved s/p one time dose of Ketoconazole 2% shampoo. -Monitor need for further treatments. Chalazion: Persistent nodule R upper eyelid. There is no evidence of preseptal cellulitis. -Warm compresses were applied but it was greater than 2 weeks without significant improvement. -Ophthalmology was consulted and evaluated patient on 03/26. S/p warm compresses and Tobradex 4 times a day OD x 2 weeks. Patient was intermittently compliant with eyedrops. -No worsening. Follow-up outpatient. Hypotension: Blood pressure labile. Continue Midodrine. Patient on max dose. Increase free water flushes as needed. Pre-renal azotemia: BUN elevated at 23. Patient receives 100ml free water flush before and after each bolus feeding. Free water flushes were increased to avoid dehydration adding 200 mL between bolus feeds. Stage I decubitus ulcer, sacral skin tear: Continue wound care. Frequent turning of patient. 06/13: I spoke with wound care nurse; no evidence of pressure ulcer to buttocks at this time. Candidal infection: buttocks affected with satellite lesions to the perineum. -06/29: Nurse informed me that rash is still present. -Nystatin discontinued and Clotrimazole started. -Nurse was advised to monitor patient for development of pressure ulceration although was evaluated by wound care recently without evidence of this. Mild obstructive uropathy: Resolved. Appreciate urology recommendations. Suprapubic catheter to be changed monthly; it was last changed on 06/17/16. Abdominal pelvis CT 03/06/16 shows resolution of right sided hydronephrosis. Urinary tract infection: Urine culture positive for Proteus mirabilis and GBS on 01/20. Patient completed course of antibiotics. Abdominal pelvis CT 03/06 shows decompressed bladder with circumferential bladder wall thickening and intraluminal air possibly indicating cystitis, but the patient had been afebrile with normal WBC count. Urine culture 05/31 with Serratia marcescens, Pseudomonas, and Enterococcus faecalis. Patient was treated with ceftriaxone. Repeat urine culture on 06/04 only reveals contaminants. Weakness: Continue physical therapy Nursing staff to get patient up out of bed at least 3 times daily Palliative care evaluation According to palliative care notes family wishes aggressive management, they are expecting him to improve, go to a rehabilitation facility and then improve enough to go home. They are declining hospice. Possible rash R face: Improved. DVT prophylaxis: SCDs. Avoid chemical prophylaxis secondary to GI bleed. Discharge Planning CM requested [facility] to evaluate for placement. Madeline Ortez Jun 30, 2016 09:13
[2016-06-30] MEDS: MIRTAZAPINE 15 MG TAB PEG SCH (20:24)
[2016-06-30 20:43] VITALS: BP 98/58; PULSE 65; RESP 16; TEMP 97.7; O2SAT 95
[2016-07-01] MEDS: MIDODRINE 5 MG TAB PO SCH ×3 (06:17→17:02)
[2016-07-01] MEDS: ALLOPURINOL 100 MG TAB PEG SCH (08:13)
[2016-07-01] MEDS: CLOTRIMAZOLE 1% CREAM 15 GM TOPICAL SCH ×2 (08:13→20:16)
[2016-07-01] MEDS: LANSOPRAZOLE SOLUTAB 30 MG TAB PEG SCH (08:13)
[2016-07-01] MEDS: FREE WATER G-TUBE SCH (08:40)
--- NOTE | 2016-07-01 08:51 | HHI.PR ---
Subjective Remarks No acute complaints. No change in clinical status. Objective Vitals Vital Signs Date Time Temp Pulse Resp B/P Pulse Ox O2 Delivery O2 Flow Rate FiO2 06/30/16 20:43 97.7 65 16 98/58 95 I/O 06/30/16 06/30/16 06/30/16 07/01/16 07/01/16 07/01/16 07:00 15:00 23:00 07:00 15:00 23:00 Intake Total 560 ml 1880 ml 200 ml Output Total 900 ml 425 ml 400 ml Balance 560 ml -900 ml 1455 ml -200 ml IV Total 0 ml Tube Feeding 360 ml 1080 ml Tube Irrigant 200 ml Other 200 ml 800 ml Output Urine Total 900 ml 425 ml 400 ml # Bowel Movements 1 2 1 Objective Remarks GENERAL: Well developed disheveled male in no apparent distress. CARDIOVASCULAR: Regular rate and rhythm. RESPIRATORY: No accessory muscle use. CTAB. GASTROINTESTINAL: Abdomen soft, nontender, nondistended. NEURO: Awake and alert. PSYCHIATRIC: Does not speak. Nods to questions. Procedures None Urinary Catheter: Yes Assessment to: Continue Soto insert reason: Prolonged Immobilization Date of Insertion: Jun 17, 2016 Vascular Central Line Catheter: No A/P Assessment and Plan Upper GI bleeding: Resolved with recurrent rectal bleeding. Hemoglobin stable. GI reevaluated patient on 05/04. Presumed hemorrhoids, s/p Anusol HC for total of 2 weeks. Continue PPI. Protein calorie malnutrition: Improving Consulted dietitian who indicated that patient may be converted to bolus feeding Jevity 1.5 w/ bolus 1.5 cans(360ml) @ 0800 and 2000 and 1-can(240ml) @ 1100, 1400 and 1700. Free Water Flush 100ml before and after each bolus feeding. Ensure Enlive tid and chocolate pudding tid Prealbumin level 25. Patient desired to eat and speech therapy advised puree diet, thin liquids, but patient has not been eating. Leather Toggler suggested considering appetite stimulant. This was discussed with attending, but we do not believe this would be beneficial for patient and would add unnecessary risk to the patient. Will continue with tube feeds only. Dementia with inappropriate behavior, mood disorder improved Patient had inappropriate behavior which is resolved now. He has been very appropriate for a long time now. Patient has been hospitalized for similar events in 2015 Consulted psychiatry for further evaluation, who indicated that this is a frontal lobe dementia Risperdal 0.25 mg during the day, Risperdal 0.5 mg at night. Risperdal was discontinued per POA request. Continue Remeron Psychiatry was reconsulted and is ok with discontinuation of Risperdal, but recommends Haldol 1-2 mg q12 prn for aggressive behavior and agitation. I have not witnessed any behavior like this. Probable seborrheic dermatitis: Flaky skin to the face and neck. -Improved s/p one time dose of Ketoconazole 2% shampoo. -Monitor need for further treatments. Chalazion: Persistent nodule R upper eyelid. There is no evidence of preseptal cellulitis. -Warm compresses were applied but it was greater than 2 weeks without significant improvement. -Ophthalmology was consulted and evaluated patient on 03/26. S/p warm compresses and Tobradex 4 times a day OD x 2 weeks. Patient was intermittently compliant with eyedrops. -No worsening. Follow-up outpatient. Hypotension: Blood pressure labile. Continue Midodrine. Patient on max dose. Increase free water flushes as needed. Pre-renal azotemia: BUN elevated at 23. Patient receives 100ml free water flush before and after each bolus feeding. Free water flushes were increased to avoid dehydration adding 200 mL between bolus feeds. Stage I decubitus ulcer, sacral skin tear: Continue wound care. Frequent turning of patient. 06/13: I spoke with wound care nurse; no evidence of pressure ulcer to buttocks at this time. Candidal infection: buttocks affected with satellite lesions to the perineum. -06/29: Nurse informed me that rash is still present. -Nystatin discontinued and Clotrimazole started. -Nurse was advised to monitor patient for development of pressure ulceration although was evaluated by wound care recently without evidence of this. Mild obstructive uropathy: Resolved. Appreciate urology recommendations. Suprapubic catheter to be changed monthly; it was last changed on 06/17/16. Abdominal pelvis CT 03/06/16 shows resolution of right sided hydronephrosis. Urinary tract infection: Urine culture positive for Proteus mirabilis and GBS on 01/20. Patient completed course of antibiotics. Abdominal pelvis CT 03/06 shows decompressed bladder with circumferential bladder wall thickening and intraluminal air possibly indicating cystitis, but the patient had been afebrile with normal WBC count. Urine culture 05/31 with Serratia marcescens, Pseudomonas, and Enterococcus faecalis. Patient was treated with ceftriaxone. Repeat urine culture on 06/04 only reveals contaminants. Weakness: Continue physical therapy Nursing staff to get patient up out of bed at least 3 times daily Palliative care evaluation According to palliative care notes family wishes aggressive management, they are expecting him to improve, go to a rehabilitation facility and then improve enough to go home. They are declining hospice. Possible rash R face: Improved. DVT prophylaxis: SCDs. Avoid chemical prophylaxis secondary to GI bleed. Discharge Planning CM requested [facility] to evaluate for placement. Madeline Ortez Jul 01, 2016 08:51
[2016-07-01 09:23] VITALS: BP 114/70; PULSE 74; RESP 15; TEMP 96.9; O2SAT 98
[2016-07-01 20:00] VITALS: BP 98/66; PULSE 66; RESP 24; TEMP 97.4; O2SAT 95
[2016-07-01] MEDS: MIRTAZAPINE 15 MG TAB PEG SCH (20:16)
[2016-07-02] MEDS: MIDODRINE 5 MG TAB PO SCH ×3 (06:30→17:04)
[2016-07-02 08:00] VITALS: BP 101/69; PULSE 67; RESP 18; TEMP 96.9; O2SAT 92
[2016-07-02] MEDS: CLOTRIMAZOLE 1% CREAM 15 GM TOPICAL SCH ×2 (08:34→21:23)
[2016-07-02] MEDS: LANSOPRAZOLE SOLUTAB 30 MG TAB PEG SCH (08:34)
[2016-07-02] MEDS: FREE WATER G-TUBE SCH (08:34)
[2016-07-02] MEDS: ALLOPURINOL 100 MG TAB PEG SCH (08:34)
--- NOTE | 2016-07-02 14:09 | HHI.PR ---
Subjective Remarks Patient seen and examined today. Patient denies any new complaints including chest pain, shortness of breath or abdominal pain. No change in patient's current clinical status. Objective Vitals Vital Signs Date Time Temp Pulse Resp B/P Pulse Ox O2 Delivery O2 Flow Rate FiO2 07/02/16 08:00 96.9 67 18 101/69 92 07/01/16 20:00 97.4 66 24 98/66 95 I/O 07/01/16 07/01/16 07/01/16 07/02/16 07/02/16 07/02/16 07:00 15:00 23:00 07:00 15:00 23:00 Intake Total 200 ml 2080 ml Output Total 400 ml 775 ml 550 ml Balance -200 ml 1305 ml -550 ml Tube Feeding 1080 ml Tube Irrigant 200 ml 800 ml Other 200 ml Output Urine Total 400 ml 775 ml 550 ml # Bowel Movements 1 2 1 Objective Remarks GENERAL: Well developed disheveled male in no apparent distress. Patient is awake and alert. CARDIOVASCULAR: Regular rate and rhythm. RESPIRATORY: No accessory muscle use. CTAB. GASTROINTESTINAL: Abdomen soft, nontender, nondistended. NEURO: Awake and alert. PSYCHIATRIC: Does not speak. Nods to questions. Procedures None Urinary Catheter: Yes, suprapubic Assessment to: Continue Soto insert reason: Prolonged Immobilization Date of Insertion: Jun 17, 2016 Vascular Central Line Catheter: No Procedures None Medications and IVs Current Medications Medications (Trade) Dose Ordered Sig/Gayathri Route Start Time Stop Time Status Last Admin (Tylenol) 650 mg Q4H PRN PO 01/20/16 10:15 (Zyloprim) 100 mg DAILY PEG 01/21/16 09:00 07/02/16 08:34 (Remeron) 7.5 mg HS PEG 01/20/16 21:00 07/01/16 20:16 (Pill Splitter) 1 ea UNSCH PRN OTHER 01/20/16 14:15 02/08/16 20:56 (Imodium) 2 mg Q6H PRN PO 01/21/16 12:45 04/16/16 20:29 (Lomotil Tab) 2 tab Q6H PRN PO 01/21/16 12:45 06/29/16 21:14 (Proamatine) 10 mg TID@,12,17 PO 02/18/16 07:00 07/02/16 12:01 (Prevacid Odt) 30 mg DAILY PEG 02/28/16 09:00 07/02/16 08:34 (Dulcolax Supp) 10 mg DAILY PRN CO 03/07/16 10:15 (Free Water) 200 ml DAILY G-TUBE 06/01/16 14:00 07/02/16 08:34 (Lotrimin 1% Cream) 1 applic Q12HR TOPICAL 06/29/16 21:00 07/02/16 08:34 Date of Insertion: Jun 17, 2016 A/P Problem List: (1) Prerenal azotemia ICD Code: R79.89 Status: Acute Assessment and Plan Upper GI bleeding: Resolved with recurrent rectal bleeding. Hemoglobin stable. GI reevaluated patient on 05/04. Presumed hemorrhoids, s/p Anusol HC for total of 2 weeks. Continue PPI. Protein calorie malnutrition: Improving Consulted dietitian who indicated that patient may be converted to bolus feeding Jevity 1.5 w/ bolus 1.5 cans(360ml) @ 0800 and 2000 and 1-can(240ml) @ 1100, 1400 and 1700. Free Water Flush 100ml before and after each bolus feeding. Ensure Enlive tid and chocolate pudding tid Prealbumin level 25. Patient desired to eat and speech therapy advised puree diet, thin liquids, but patient has not been eating. Ecological Risk Assessor suggested considering appetite stimulant. This was discussed with attending, but we do not believe this would be beneficial for patient and would add unnecessary risk to the patient. Will continue with tube feeds only. Dementia with inappropriate behavior, mood disorder improved Patient had inappropriate behavior which is resolved now. He has been very appropriate for a long time now. Patient has been hospitalized for similar events in 2015 Consulted psychiatry for further evaluation, who indicated that this is a frontal lobe dementia Risperdal 0.25 mg during the day, Risperdal 0.5 mg at night. Risperdal was discontinued per POA request. Continue Remeron Psychiatry was reconsulted and is ok with discontinuation of Risperdal, but recommends Haldol 1-2 mg q12 prn for aggressive behavior and agitation. I have not witnessed any behavior like this. Probable seborrheic dermatitis: Flaky skin to the face and neck. -Improved s/p one time dose of Ketoconazole 2% shampoo. -Monitor need for further treatments. Chalazion: Persistent nodule R upper eyelid. There is no evidence of preseptal cellulitis. -Warm compresses were applied but it was greater than 2 weeks without significant improvement. -Ophthalmology was consulted and evaluated patient on 03/26. S/p warm compresses and Tobradex 4 times a day OD x 2 weeks. Patient was intermittently compliant with eyedrops. -No worsening. Follow-up outpatient. Hypotension: Blood pressure labile. Continue Midodrine. Patient on max dose. Increase free water flushes as needed. Pre-renal azotemia: BUN elevated at 23. Patient receives 100ml free water flush before and after each bolus feeding. Free water flushes were increased to avoid dehydration adding 200 mL between bolus feeds. Stage I decubitus ulcer, sacral skin tear: Resolved. Frequent turning of patient. 06/13: Evaluated by wound care nurse; no evidence of pressure ulcer to buttocks at this time. Nursing staff to continue regular evaluations for evidence of new skin breakdown Candidal infection: buttocks affected with satellite lesions to the perineum. -06/29: Nurse informed me that rash is still present. -Nystatin discontinued and Clotrimazole started. -Nurse was advised to monitor patient for development of pressure ulceration although was evaluated by wound care recently without evidence of this. Mild obstructive uropathy: Resolved. Appreciate urology recommendations. Suprapubic catheter to be changed monthly; it was last changed on 06/17/16. Abdominal pelvis CT 03/06/16 shows resolution of right sided hydronephrosis. Urinary tract infection: Urine culture positive for Proteus mirabilis and GBS on 01/20. Patient completed course of antibiotics. Abdominal pelvis CT 03/06 shows decompressed bladder with circumferential bladder wall thickening and intraluminal air possibly indicating cystitis, but the patient had been afebrile with normal WBC count. Urine culture 05/31 with Serratia marcescens, Pseudomonas, and Enterococcus faecalis. Patient was treated with ceftriaxone. Repeat urine culture on 06/04 only reveals contaminants. Weakness: Continue physical therapy Nursing staff to get patient up out of bed at least 3 times daily Patient continually refuses to bed or even to sit on the edge of the bed, PT will continue the efforts. Palliative care evaluation According to palliative care notes family wishes aggressive management, they are expecting him to improve, go to a rehabilitation facility and then improve enough to go home. They are declining hospice. Possible rash R face: Improved. DVT prophylaxis: SCDs. Avoid chemical prophylaxis secondary to GI bleed. Discharge Planning Case management has requested [facility] to evaluate patient for possible placement Bettina Gomez Jul 02, 2016 14:09
[2016-07-02 20:00] VITALS: BP 105/61; PULSE 68; RESP 19; TEMP 97.8; O2SAT 95
[2016-07-02] MEDS: MIRTAZAPINE 15 MG TAB PEG SCH (21:22)
[2016-07-03] MEDS: MIDODRINE 5 MG TAB PO SCH ×3 (06:05→17:11)
[2016-07-03] MEDS: FREE WATER G-TUBE SCH (09:00)
[2016-07-03 09:03] VITALS: BP 120/60; PULSE 100; RESP 16; TEMP 97.8; O2SAT 93
[2016-07-03] MEDS: CLOTRIMAZOLE 1% CREAM 15 GM TOPICAL SCH ×2 (09:20→21:16)
[2016-07-03] MEDS: LANSOPRAZOLE SOLUTAB 30 MG TAB PEG SCH (09:20)
[2016-07-03] MEDS: ALLOPURINOL 100 MG TAB PEG SCH (09:20)
--- NOTE | 2016-07-03 10:57 | HHI.PR ---
Subjective Remarks Follow up on patient with dementia with inappropriate behavior and history of upper GI bleed. Objective Vitals Vital Signs Date Time Temp Pulse Resp B/P Pulse Ox O2 Delivery O2 Flow Rate FiO2 07/03/16 09:03 97.8 100 16 120/60 93 07/02/16 20:00 97.8 68 19 105/61 95 I/O 07/02/16 07/02/16 07/02/16 07/03/16 07/03/16 07/03/16 07:00 15:00 23:00 07:00 15:00 23:00 Intake Total 560 ml Output Total 550 ml 1050 ml 500 ml 700 ml Balance -550 ml -1050 ml 60 ml -700 ml Tube Feeding 360 ml Tube Irrigant 200 ml Output Urine Total 550 ml 1050 ml 500 ml 700 ml # Voids 1 # Bowel Movements 1 0 2 1 Objective Remarks GENERAL: Well developed disheveled male in no apparent distress. Patient is awake and alert. CARDIOVASCULAR: Regular rate and rhythm. RESPIRATORY: No accessory muscle use. CTAB. GASTROINTESTINAL: Abdomen soft, nontender, nondistended. NEURO: Awake and alert. PSYCHIATRIC: Does not speak. Nods to questions. Procedures None Urinary Catheter: Yes, suprapubic Assessment to: Continue Soto insert reason: Prolonged Immobilization Date of Insertion: Jun 17, 2016 Vascular Central Line Catheter: No Procedures None Date of Insertion: Jun 17, 2016 A/P Problem List: (1) Prerenal azotemia ICD Code: R79.89 Status: Acute Assessment and Plan Upper GI bleeding: Resolved with recurrent rectal bleeding. Hemoglobin stable. GI reevaluated patient on 05/04. Presumed hemorrhoids, s/p Anusol HC for total of 2 weeks. Continue PPI. Protein calorie malnutrition: Improving Consulted dietitian who indicated that patient may be converted to bolus feeding Jevity 1.5 w/ bolus 1.5 cans(360ml) @ 0800 and 2000 and 1-can(240ml) @ 1100, 1400 and 1700. Free Water Flush 100ml before and after each bolus feeding. Ensure Enlive tid and chocolate pudding tid Prealbumin level 25. Patient desired to eat and speech therapy advised puree diet, thin liquids, but patient has not been eating. Mounted Police suggested considering appetite stimulant. This was discussed with attending, but we do not believe this would be beneficial for patient and would add unnecessary risk to the patient. Will continue with tube feeds only. Dementia with inappropriate behavior, mood disorder improved Patient had inappropriate behavior which is resolved now. He has been very appropriate for a long time now. Patient has been hospitalized for similar events in 2015 Consulted psychiatry for further evaluation, who indicated that this is a frontal lobe dementia Risperdal 0.25 mg during the day, Risperdal 0.5 mg at night. Risperdal was discontinued per POA request. Continue Remeron Psychiatry was reconsulted and is ok with discontinuation of Risperdal, but recommends Haldol 1-2 mg q12 prn for aggressive behavior and agitation. I have not witnessed any behavior like this. Probable seborrheic dermatitis: Flaky skin to the face and neck. -Improved s/p one time dose of Ketoconazole 2% shampoo. -Monitor need for further treatments. Chalazion: Persistent nodule R upper eyelid. There is no evidence of preseptal cellulitis. -Warm compresses were applied but it was greater than 2 weeks without significant improvement. -Ophthalmology was consulted and evaluated patient on 03/26. S/p warm compresses and Tobradex 4 times a day OD x 2 weeks. Patient was intermittently compliant with eyedrops. -No worsening. Follow-up outpatient. Hypotension: Blood pressure labile. Continue Midodrine. Patient on max dose. Increase free water flushes as needed. Pre-renal azotemia: BUN elevated at 23. Patient receives 100ml free water flush before and after each bolus feeding. Free water flushes were increased to avoid dehydration adding 200 mL between bolus feeds. Stage I decubitus ulcer, sacral skin tear: Resolved. Frequent turning of patient. 06/13: Evaluated by wound care nurse; no evidence of pressure ulcer to buttocks at this time. Nursing staff to continue regular evaluations for evidence of new skin breakdown Candidal infection: buttocks affected with satellite lesions to the perineum. -06/29: Nurse informed me that rash is still present. -Nystatin discontinued and Clotrimazole started. -Nurse was advised to monitor patient for development of pressure ulceration although was evaluated by wound care recently without evidence of this. Mild obstructive uropathy: Resolved. Appreciate urology recommendations. Suprapubic catheter to be changed monthly; it was last changed on 06/17/16. Abdominal pelvis CT 03/06/16 shows resolution of right sided hydronephrosis. Urinary tract infection: Urine culture positive for Proteus mirabilis and GBS on 01/20. Patient completed course of antibiotics. Abdominal pelvis CT 03/06 shows decompressed bladder with circumferential bladder wall thickening and intraluminal air possibly indicating cystitis, but the patient had been afebrile with normal WBC count. Urine culture 05/31 with Serratia marcescens, Pseudomonas, and Enterococcus faecalis. Patient was treated with ceftriaxone. Repeat urine culture on 06/04 only reveals contaminants. Weakness: Continue physical therapy Nursing staff to get patient up out of bed at least 3 times daily Patient continually refuses to bed or even to sit on the edge of the bed, PT will continue the efforts. Palliative care evaluation According to palliative care notes family wishes aggressive management, they are expecting him to improve, go to a rehabilitation facility and then improve enough to go home. They are declining hospice. Possible rash R face: Improved. DVT prophylaxis: SCDs. Avoid chemical prophylaxis secondary to GI bleed. Discharge Planning Case management has requested [facility] to evaluate patient for possible placement on 06/12/16. Requested an update from [facility] regarding the outcome of the evaluation. Bettina Gomez Jul 03, 2016 10:57
[2016-07-03 20:00] VITALS: BP 113/79; PULSE 72; RESP 18; TEMP 98; O2SAT 96
[2016-07-03] MEDS: MIRTAZAPINE 15 MG TAB PEG SCH (21:14)
[2016-07-04] MEDS: MIDODRINE 5 MG TAB PO SCH ×3 (06:31→16:32)
[2016-07-04 08:00] VITALS: BP 128/70; PULSE 80; RESP 18; TEMP 98.2; O2SAT 95
[2016-07-04] MEDS: FREE WATER G-TUBE SCH (09:00)
[2016-07-04] MEDS: CLOTRIMAZOLE 1% CREAM 15 GM TOPICAL SCH ×2 (09:00→20:01)
[2016-07-04] MEDS: ALLOPURINOL 100 MG TAB PEG SCH (09:09)
[2016-07-04] MEDS: LANSOPRAZOLE SOLUTAB 30 MG TAB PEG SCH (09:09)
--- NOTE | 2016-07-04 09:27 | HHI.PR ---
Subjective Remarks Follow-up patient with dementia with inappropriate behavior and history of upper GI bleed. Patient denies any acute medical complaints at this time including chest pain, abdominal pain or shortness of breath by shaking his head no. No change in patient's current clinical status. Objective Vitals Vital Signs Date Time Temp Pulse Resp B/P Pulse Ox O2 Delivery O2 Flow Rate FiO2 07/03/16 20:00 98.0 72 18 113/79 96 I/O 07/03/16 07/03/16 07/03/16 07/04/16 07/04/16 07/04/16 07:00 15:00 23:00 07:00 15:00 23:00 Intake Total 700 ml 560 ml 180 ml Output Total 700 ml 670 ml 300 ml 501 ml Balance -700 ml 30 ml 260 ml -321 ml Intake Oral 0 ml 0 ml IV Total 0 ml Tube Feeding 600 ml 360 ml Tube Irrigant 200 ml 180 ml Other 100 ml Output Urine Total 700 ml 670 ml 300 ml 500 ml Stool Total 1 ml # Voids 1 # Bowel Movements 1 1 Objective Remarks GENERAL: Well developed disheveled male in no apparent distress. Patient is awake and alert. CARDIOVASCULAR: Regular rate and rhythm. RESPIRATORY: No accessory muscle use. CTAB. GASTROINTESTINAL: Abdomen soft, nontender, nondistended. NEURO: Awake and alert. PSYCHIATRIC: Does not speak. Nods to questions. Procedures None Urinary Catheter: Yes, suprapubic Assessment to: Continue Soto insert reason: Prolonged Immobilization Date of Insertion: Jun 17, 2016 Vascular Central Line Catheter: No Procedures None Medications and IVs Current Medications Medications (Trade) Dose Ordered Sig/Gayathri Route Start Time Stop Time Status Last Admin (Tylenol) 650 mg Q4H PRN PO 01/20/16 10:15 (Zyloprim) 100 mg DAILY PEG 01/21/16 09:00 07/04/16 09:09 (Remeron) 7.5 mg HS PEG 01/20/16 21:00 07/03/16 21:14 (Pill Splitter) 1 ea UNSCH PRN OTHER 01/20/16 14:15 02/08/16 20:56 (Imodium) 2 mg Q6H PRN PO 01/21/16 12:45 04/16/16 20:29 (Lomotil Tab) 2 tab Q6H PRN PO 01/21/16 12:45 06/29/16 21:14 (Proamatine) 10 mg TID@07,12,17 PO 02/18/16 07:00 07/04/16 06:31 (Prevacid Odt) 30 mg DAILY PEG 02/28/16 09:00 07/04/16 09:09 (Dulcolax Supp) 10 mg DAILY PRN ID 03/07/16 10:15 (Free Water) 200 ml DAILY G-TUBE 06/01/16 14:00 07/04/16 09:00 (Lotrimin 1% Cream) 1 applic Q12HR TOPICAL 06/29/16 21:00 07/04/16 09:00 Date of Insertion: Jun 17, 2016 A/P Problem List: (1) Prerenal azotemia ICD Code: R79.89 Status: Acute Assessment and Plan Upper GI bleeding: Resolved with recurrent rectal bleeding. Hemoglobin stable. GI reevaluated patient on 05/04. Presumed hemorrhoids, s/p Anusol HC for total of 2 weeks. Continue PPI. Protein calorie malnutrition: Improving Consulted dietitian who indicated that patient may be converted to bolus feeding Jevity 1.5 w/ bolus 1.5 cans(360ml) @ 0800 and 2000 and 1-can(240ml) @ 1100, 1400 and 1700. Free Water Flush 100ml before and after each bolus feeding. Ensure Enlive tid and chocolate pudding tid Prealbumin level 25. Patient desired to eat and speech therapy advised puree diet, thin liquids, but patient has not been eating. Dining Manager suggested considering appetite stimulant. This was discussed with attending, but we do not believe this would be beneficial for patient and would add unnecessary risk to the patient. Will continue with tube feeds only. Dementia with inappropriate behavior, mood disorder improved Patient had inappropriate behavior which is resolved now. He has been very appropriate for a long time now. Patient has been hospitalized for similar events in 2015 Consulted psychiatry for further evaluation, who indicated that this is a frontal lobe dementia Risperdal 0.25 mg during the day, Risperdal 0.5 mg at night. Risperdal was discontinued per POA request. Continue Remeron Psychiatry was reconsulted and is ok with discontinuation of Risperdal, but recommends Haldol 1-2 mg q12 prn for aggressive behavior and agitation. I have not witnessed any behavior like this. Probable seborrheic dermatitis: Flaky skin to the face and neck. -Resolved. -Monitor need for further treatments. Chalazion: Persistent nodule R upper eyelid. There is no evidence of preseptal cellulitis. -Resolved Hypotension: good BP measurements at present. Continue Midodrine. Patient on max dose. Increase free water flushes as needed. Pre-renal azotemia: BUN elevated at 23. Patient receives 100ml free water flush before and after each bolus feeding. Free water flushes were increased to avoid dehydration adding 200 mL between bolus feeds. Candidal infection: buttocks affected with satellite lesions to the perineum. -06/29: Nurse informed me that rash is still present. -Nystatin discontinued and Clotrimazole started. -Nurse was advised to monitor patient for development of pressure ulceration although was evaluated by wound care recently without evidence of this. Mild obstructive uropathy: Resolved. Appreciate urology recommendations. Suprapubic catheter to be changed monthly; it was last changed on 06/17/16. Abdominal pelvis CT 03/06/16 shows resolution of right sided hydronephrosis. Urinary tract infection: Urine culture positive for Proteus mirabilis and GBS on 01/20. Patient completed course of antibiotics. Abdominal pelvis CT 03/06 shows decompressed bladder with circumferential bladder wall thickening and intraluminal air possibly indicating cystitis, but the patient had been afebrile with normal WBC count. Urine culture 05/31 with Serratia marcescens, Pseudomonas, and Enterococcus faecalis. Patient was treated with ceftriaxone. Repeat urine culture on 06/04 only reveals contaminants. Weakness: Continue physical therapy. As stated above, patient with minimal participation at best. Nursing staff to get patient up out of bed at least 3 times daily Patient continually refuses to bed or even to sit on the edge of the bed, PT will continue the efforts. Palliative care evaluation According to palliative care notes family wishes aggressive management, they are expecting him to improve, go to a rehabilitation facility and then improve enough to go home. They are declining hospice. DVT prophylaxis: SCDs. Avoid chemical prophylaxis secondary to GI bleed. Discharge Planning Case management has requested [facility] to evaluate patient for possible placement on 06/12/16. Requested an update from [facility] regarding the outcome of the evaluation. 07/03: Discussed with case hardener Emre Al. Several other facilities have been contacted but no acceptance thus far. Bettina Gomez Jul 04, 2016 09:27
[2016-07-04 20:00] VITALS: BP 101/63; PULSE 59; RESP 16; TEMP 95.9; O2SAT 96
[2016-07-04] MEDS: MIRTAZAPINE 15 MG TAB PEG SCH (20:00)
[2016-07-05] MEDS: MIDODRINE 5 MG TAB PO SCH ×3 (06:15→17:10)
[2016-07-05 06:34] LABS: AUTOMATED NEUTROPHIL # 3.4 TH/MM3 (1.8-7.7); BASOPHIL # 0.1 TH/MM3 (0-0.2); EOSINOPHIL # 0.3 TH/MM3 (0-0.4); EOSINOPHIL % 4.2 % (0.0-4.0); HEMATOCRIT 42.8 % (39.0-51.0); HEMO FLAGS DIFF FINAL; LYMPH % 39.7 % (9.0-44.0); LYMPHOCYTE # 2.7 TH/MM3 (1.0-4.8); MEAN CELL VOLUME 86.8 FL (80.0-100.0); MEAN CORPUSCULAR HEMOGLOBIN 28.6 PG (27.0-34.0); MONO % 5.6 % (0.0-8.0); NEUT % 49.5 % (16.0-70.0); PLATELET COUNT 179 TH/MM3 (150-450); RED BLOOD COUNT 4.93 MIL/MM3 (4.50-5.90); RED CELL DISTRIBUTION WIDTH 15.1 % (11.6-17.2); WHITE BLOOD COUNT 6.9 TH/MM3 (4.0-11.0)
[2016-07-05 06:39] LABS: POTASSIUM 3.9 MEQ/L (3.5-5.1)
[2016-07-05 06:43] LABS: BICARBONATE 28.6 MEQ/L (21.0-32.0); MAGNESIUM 2.2 MG/DL (1.5-2.5)
[2016-07-05 08:00] VITALS: BP 101/61; PULSE 64; RESP 22; TEMP 96; O2SAT 99
[2016-07-05] MEDS: FREE WATER G-TUBE SCH (09:00)
[2016-07-05] MEDS: LANSOPRAZOLE SOLUTAB 30 MG TAB PEG SCH (09:22)
[2016-07-05] MEDS: ALLOPURINOL 100 MG TAB PEG SCH (09:22)
[2016-07-05] MEDS: CLOTRIMAZOLE 1% CREAM 15 GM TOPICAL SCH ×2 (09:22→21:10)
--- NOTE | 2016-07-05 11:11 | HHI.PR ---
Subjective Remarks Patient seen and examined today. Patient denies any new complaints. Duricef indicates that patient's urine is starting to get cloudy again. Patient is asymptomatic at this time. No signs of infection. Objective Vitals Vital Signs Date Time Temp Pulse Resp B/P Pulse Ox O2 Delivery O2 Flow Rate FiO2 07/05/16 08:00 96.0 64 22 101/61 99 07/04/16 20:00 95.9 59 16 101/63 96 I/O 07/04/16 07/04/16 07/04/16 07/05/16 07/05/16 07/05/16 07:00 15:00 23:00 07:00 15:00 23:00 Intake Total 180 ml 460 ml Output Total 501 ml 400 ml 1350 ml Balance -321 ml 60 ml -1350 ml Intake Oral 0 ml Tube Feeding 360 ml Tube Irrigant 180 ml 100 ml Output Urine Total 500 ml 400 ml 1350 ml Stool Total 1 ml # Bowel Movements 1 Result Diagram: 07/05/16 0545 07/05/16 0545 Objective Remarks GENERAL: Well-developed, well-nourished, in no acute distress. Patient awake and alert HEENT: Head is normocephalic without any lesions or masses noted. Facial features are symmetric. Eyes: Extraocular muscles are intact. Conjunctivae were clear. NECK: Trachea midline no deviation. CARDIAC: Regular rhythm, regular rate. S1/S2 are heard. No murmurs gallops or rubs. LUNGS: Clear to auscultation bilaterally. No wheeze, rhonchi or rales. No use of accessory muscles on inspiration or expiration. ABDOMEN: Soft, nontender. Nondistended. Bowel sounds heard in all 4 quadrants. No organomegaly or masses. Negative rebound, negative guarding, suprapubic catheter in place, PEG tube noted EXTREMITIES: No edema, pulses are equal bilaterally. No cyanosis or clubbing NEUROLOGY: Mood and affect appear appropriate. Cranial nerves II through XII grossly intact. Moving all extremities SKIN: Patient's back has skin breakdown on his back and sacral area. Appears to the clinic heat rash which is developing worse because patient refuses to get out of bed. Procedures None Urinary Catheter: Yes (suprapubic catheter) Assessment to: Continue Soto insert reason: Obstruction/Retention Date of Insertion: Jun 17, 2016 Vascular Central Line Catheter: No A/P Assessment and Plan Dementia with inappropriate behavior, mood disorder improved patient more somnolent today, likely secondary to medication use, patient is afebrile, no tachycardia, no signs of infection. Patient has not had any recurrent inappropriate behavior since increasing the Risperdal Patient has been hospitalized for similar events in 2015 Consulted psychiatry for further evaluation, who indicated that this is a frontal lobe dementia Risperdal discontinued at family's request Continue Remeron Parkinson's disease: Patient has dementia and resting tremor. Chronic, stable. Weakness: Continue physical therapy Nursing staff to get patient up out of bed at least 3 times daily GI bleed with presenting of Upper GI bleed, patient with intermittent rectal bleeding: Resolved Hemoglobin continues to remain stable GI was following and reevaluated on 05/04/16 Presumed hemorrhoids, continue Anusol HC for 2 weeks Continue PPI. Protein calorie malnutrition: Improving Consulted dietitian who indicated that patient may be converted to bolus feeding Jevity 1.5, 6 cans per day. 1.5 cans that 0800 and 2000, 1 can at 1100, 1400, 1700 Prealbumin level 24 Hypotension with episodes of hypertension: Stable Blood pressure labile. Continue monitor blood pressure Continue Midodrine. Mild obstructive uropathy: Resolved. Appreciate urology recommendations. Suprapubic catheter in place, last changed 06/17/16. Abdominal pelvis CT 03/06/16 shows resolution of right sided hydronephrosis. Recurrent urinary tract infection Replaced Soto 07/05/16, continue changed monthly Patient with urine cultures with different organisms, likely secondary to suprapubic catheter, continue monitor and treat only if symptomatic Elevated BUN, stable Continue fluid flushes via PEG tube to avoid dehydration. Stage I decubitus ulcer, sacral skin tear: Continue wound care. Palliative care evaluation According to palliative care notes. Family wishes aggressive management, they are expecting him to improve, go to a rehabilitation facility and then improve enough to go home. They are deferring hospice. DVT prophylaxis: SCDs. Avoid chemical prophylaxis secondary to GI bleed. Discharge Planning Discharge planning per case management. Case management is trying to arrange rehabilitation facility, however there has been no accepting facility at this time Jaguar Walker Jul 05, 2016 11:11
[2016-07-05 20:04] VITALS: BP 107/68; PULSE 100; RESP 14; TEMP 96.9; O2SAT 96
[2016-07-05] MEDS: MIRTAZAPINE 15 MG TAB PEG SCH (21:10)
[2016-07-06] MEDS: MIDODRINE 5 MG TAB PO SCH ×3 (06:06→16:55)
[2016-07-06 08:00] VITALS: BP 107/68; PULSE 100; RESP 16; TEMP 97.9; O2SAT 96
[2016-07-06] MEDS: FREE WATER G-TUBE SCH (08:16)
[2016-07-06] MEDS: ALLOPURINOL 100 MG TAB PEG SCH (08:16)
[2016-07-06] MEDS: LANSOPRAZOLE SOLUTAB 30 MG TAB PEG SCH (08:16)
[2016-07-06] MEDS: CLOTRIMAZOLE 1% CREAM 15 GM TOPICAL SCH ×2 (08:17→21:08)
--- NOTE | 2016-07-06 14:19 | HHI.PR ---
Subjective Remarks Patient seen and examined today. Patient denies any new complaints. No change in clinical status. Awaiting home health care case manager discharge planning Objective Vitals Vital Signs Date Time Temp Pulse Resp B/P Pulse Ox O2 Delivery O2 Flow Rate FiO2 07/06/16 08:00 97.9 100 16 107/68 96 07/05/16 20:04 96.9 100 14 107/68 96 I/O 07/05/16 07/05/16 07/05/16 07/06/16 07/06/16 07/06/16 07:00 15:00 23:00 07:00 15:00 23:00 Output Total 1350 ml 275 ml 200 ml 660 ml 300 ml Balance -1350 ml -275 ml -200 ml -660 ml -300 ml Output Urine Total 1350 ml 275 ml 200 ml 660 ml 300 ml # Bowel Movements 1 2 1 1 Result Diagram: 07/05/16 0545 07/05/16 0545 Objective Remarks GENERAL: Well-developed, well-nourished, in no acute distress. Patient awake and alert HEENT: Head is normocephalic without any lesions or masses noted. Facial features are symmetric. Eyes: Extraocular muscles are intact. Conjunctivae were clear. NECK: Trachea midline no deviation. CARDIAC: Regular rhythm, regular rate. S1/S2 are heard. No murmurs gallops or rubs. LUNGS: Clear to auscultation bilaterally. No wheeze, rhonchi or rales. No use of accessory muscles on inspiration or expiration. ABDOMEN: Soft, nontender. Nondistended. Bowel sounds heard in all 4 quadrants. No organomegaly or masses. Negative rebound, negative guarding, suprapubic catheter in place, PEG tube noted EXTREMITIES: No edema, pulses are equal bilaterally. No cyanosis or clubbing NEUROLOGY: Mood and affect appear appropriate. Cranial nerves II through XII grossly intact. Moving all extremities SKIN: Patient's back has skin breakdown on his back and sacral area. Appears to the clinic heat rash which is developing worse because patient refuses to get out of bed. Procedures None Urinary Catheter: No Date of Insertion: Jun 17, 2016 Vascular Central Line Catheter: No A/P Assessment and Plan Dementia with inappropriate behavior, mood disorder improved patient more somnolent today, likely secondary to medication use, patient is afebrile, no tachycardia, no signs of infection. Patient has not had any recurrent inappropriate behavior since increasing the Risperdal Patient has been hospitalized for similar events in 2015 Consulted psychiatry for further evaluation, who indicated that this is a frontal lobe dementia Risperdal discontinued at family's request Continue Remeron Parkinson's disease: Patient has dementia and resting tremor. Chronic, stable. Weakness: Continue physical therapy Nursing staff to get patient up out of bed at least 3 times daily GI bleed with presenting of Upper GI bleed, patient with intermittent rectal bleeding: Resolved Hemoglobin continues to remain stable GI was following and reevaluated on 05/04/16 Presumed hemorrhoids, continue Anusol HC for 2 weeks Continue PPI. Protein calorie malnutrition: Improving Consulted dietitian who indicated that patient may be converted to bolus feeding Jevity 1.5, 6 cans per day. 1.5 cans that 0800 and 2000, 1 can at 1100, 1400, 1700 Prealbumin level 24 Hypotension with episodes of hypertension: Stable Blood pressure labile. Continue monitor blood pressure Continue Midodrine. Mild obstructive uropathy: Resolved. Appreciate urology recommendations. Suprapubic catheter in place, last changed 07/05/16. Abdominal pelvis CT 03/06/16 shows resolution of right sided hydronephrosis. Recurrent urinary tract infection Replaced Soto 07/05/16, continue changed monthly Patient with urine cultures with different organisms, likely secondary to suprapubic catheter, continue monitor and treat only if symptomatic Elevated BUN, stable Continue fluid flushes via PEG tube to avoid dehydration. Stage I decubitus ulcer, sacral skin tear: Continue wound care. Palliative care evaluation According to palliative care notes. Family wishes aggressive management, they are expecting him to improve, go to a rehabilitation facility and then improve enough to go home. They are deferring hospice. DVT prophylaxis: SCDs. Avoid chemical prophylaxis secondary to GI bleed. Discharge Planning Discharge planning per case management. Case management is trying to arrange rehabilitation facility, however there has been no accepting facility at this time Jaguar Walker Jul 06, 2016 14:19
[2016-07-06 20:00] VITALS: BP 101/70; PULSE 84; RESP 20; TEMP 98.3; O2SAT 95
[2016-07-06] MEDS: MIRTAZAPINE 15 MG TAB PEG SCH (21:08)
[2016-07-07] MEDS: MIDODRINE 5 MG TAB PO SCH ×3 (06:14→17:19)
[2016-07-07 08:00] VITALS: BP 102/67; PULSE 68; RESP 17; TEMP 97; O2SAT 94
[2016-07-07] MEDS: FREE WATER G-TUBE SCH (08:24)
[2016-07-07] MEDS: ALLOPURINOL 100 MG TAB PEG SCH (08:25)
[2016-07-07] MEDS: LANSOPRAZOLE SOLUTAB 30 MG TAB PEG SCH (08:25)
[2016-07-07] MEDS: CLOTRIMAZOLE 1% CREAM 15 GM TOPICAL SCH ×2 (08:29→21:16)
--- NOTE | 2016-07-07 11:06 | HHI.PR ---
Subjective Remarks Patient seen and examined today. Patient denies any new complaints. No change in clinical status. Awaiting pillowcase sewer discharge planning. Objective Vitals Vital Signs Date Time Temp Pulse Resp B/P Pulse Ox O2 Delivery O2 Flow Rate FiO2 07/07/16 08:00 97.0 68 17 102/67 94 07/06/16 20:00 98.3 84 20 101/70 95 I/O 07/06/16 07/06/16 07/06/16 07/07/16 07/07/16 07/07/16 07:00 15:00 23:00 07:00 15:00 23:00 Intake Total 0 ml Output Total 660 ml 300 ml 250 ml 325 ml Balance -660 ml -300 ml -250 ml -325 ml Intake Oral 0 ml Output Urine Total 660 ml 300 ml 250 ml 325 ml # Bowel Movements 1 1 1 Result Diagram: 07/05/16 0545 07/05/16 0545 Objective Remarks GENERAL: Well-developed, well-nourished, in no acute distress. Patient awake and alert HEENT: Head is normocephalic without any lesions or masses noted. Facial features are symmetric. Eyes: Extraocular muscles are intact. Conjunctivae were clear. NECK: Trachea midline no deviation. CARDIAC: Regular rhythm, regular rate. S1/S2 are heard. No murmurs gallops or rubs. LUNGS: Clear to auscultation bilaterally. No wheeze, rhonchi or rales. No use of accessory muscles on inspiration or expiration. ABDOMEN: Soft, nontender. Nondistended. Bowel sounds heard in all 4 quadrants. No organomegaly or masses. Negative rebound, negative guarding, suprapubic catheter in place, PEG tube noted EXTREMITIES: No edema, pulses are equal bilaterally. No cyanosis or clubbing NEUROLOGY: Mood and affect appear appropriate. Cranial nerves II through XII grossly intact. Moving all extremities SKIN: Patient's back has skin breakdown on his back and sacral area. Appears to the clinic heat rash which is developing worse because patient refuses to get out of bed. Procedures None Urinary Catheter: Yes (suprapubic catheter) Assessment to: Continue Soto insert reason: Obstruction/Retention Date of Insertion: Jun 17, 2016 Vascular Central Line Catheter: No A/P Assessment and Plan Dementia with inappropriate behavior, mood disorder improved patient more somnolent today, likely secondary to medication use, patient is afebrile, no tachycardia, no signs of infection. Patient has not had any recurrent inappropriate behavior since increasing the Risperdal Patient has been hospitalized for similar events in 2015 Consulted psychiatry for further evaluation, who indicated that this is a frontal lobe dementia Risperdal discontinued at family's request Continue Remeron Parkinson's disease: Patient has dementia and resting tremor. Chronic, stable. Weakness: Continue physical therapy Nursing staff to get patient up out of bed at least 3 times daily GI bleed with presenting of Upper GI bleed, patient with intermittent rectal bleeding: Resolved Hemoglobin continues to remain stable GI was following and reevaluated on 05/04/16 Presumed hemorrhoids, continue Anusol HC for 2 weeks Continue PPI. Protein calorie malnutrition: Improving Consulted dietitian who indicated that patient may be converted to bolus feeding Jevity 1.5, 6 cans per day. 1.5 cans that 0800 and 2000, 1 can at 1100, 1400, 1700 Prealbumin level 24 Hypotension with episodes of hypertension: Stable Blood pressure labile. Continue monitor blood pressure Continue Midodrine. Mild obstructive uropathy: Resolved. Appreciate urology recommendations. Suprapubic catheter in place, last changed 07/05/16. Abdominal pelvis CT 03/06/16 shows resolution of right sided hydronephrosis. Recurrent urinary tract infection Replaced Soto 07/05/16, continue changed monthly Patient with urine cultures with different organisms, likely secondary to suprapubic catheter, continue monitor and treat only if symptomatic Elevated BUN, stable Continue fluid flushes via PEG tube to avoid dehydration. Stage I decubitus ulcer, sacral skin tear: Continue wound care. Palliative care evaluation According to palliative care notes. Family wishes aggressive management, they are expecting him to improve, go to a rehabilitation facility and then improve enough to go home. They are deferring hospice. DVT prophylaxis: SCDs. Avoid chemical prophylaxis secondary to GI bleed. No change present treatment plan Discharge Planning Discharge planning per case management. Case management is trying to arrange rehabilitation facility, however there has been no accepting facility at this time Jaguar Walker Jul 07, 2016 11:06
[2016-07-07 20:00] VITALS: BP 108/67; PULSE 74; RESP 21; TEMP 97.7; O2SAT 95
[2016-07-07] MEDS: MIRTAZAPINE 15 MG TAB PEG SCH (21:15)
[2016-07-08] MEDS: MIDODRINE 5 MG TAB PO SCH ×3 (06:11→17:46)
[2016-07-08 08:00] VITALS: BP 108/66; PULSE 68; RESP 20; TEMP 96.1; O2SAT 94
[2016-07-08] MEDS: CLOTRIMAZOLE 1% CREAM 15 GM TOPICAL SCH ×2 (08:27→20:15)
[2016-07-08] MEDS: FREE WATER G-TUBE SCH (08:27)
[2016-07-08] MEDS: LANSOPRAZOLE SOLUTAB 30 MG TAB PEG SCH (08:27)
[2016-07-08] MEDS: ALLOPURINOL 100 MG TAB PEG SCH (08:27)
--- NOTE | 2016-07-08 09:13 | HHI.PR ---
Subjective Remarks Follow-up patient with dementia with inappropriate behavior and history of upper GI bleed. Patient seen and examined today. Patient denies any new complaints. No change in clinical status. Awaiting briefcase sewer discharge planning. Objective Vitals Vital Signs Date Time Temp Pulse Resp B/P Pulse Ox O2 Delivery O2 Flow Rate FiO2 07/07/16 20:00 97.7 74 21 108/67 95 I/O 07/07/16 07/07/16 07/07/16 07/08/16 07/08/16 07/08/16 07:00 15:00 23:00 07:00 15:00 23:00 Intake Total 0 ml Output Total 325 ml 350 ml 350 ml 375 ml Balance -325 ml -350 ml -350 ml -375 ml Intake Oral 0 ml Output Urine Total 325 ml 350 ml 350 ml 375 ml # Bowel Movements 1 1 2 2 Result Diagram: 07/05/16 0545 07/05/16 0545 Objective Remarks GENERAL: Well developed disheveled male in no apparent distress. Patient is awake and alert. CARDIOVASCULAR: Regular rate and rhythm. RESPIRATORY: No accessory muscle use. CTAB. GASTROINTESTINAL: Abdomen soft, nontender, nondistended. NEURO: Awake and alert. PSYCHIATRIC: Does not speak. Nods to questions. Procedures None Urinary Catheter: Yes, suprapubic Assessment to: Continue Soto insert reason: Prolonged Immobilization Date of Insertion: Jun 17, 2016 Vascular Central Line Catheter: No Procedures None Medications and IVs Current Medications Medications (Trade) Dose Ordered Sig/Gayathri Route Start Time Stop Time Status Last Admin (Tylenol) 650 mg Q4H PRN PO 01/20/16 10:15 (Zyloprim) 100 mg DAILY PEG 01/21/16 09:00 07/08/16 08:27 (Remeron) 7.5 mg HS PEG 01/20/16 21:00 07/07/16 21:15 (Pill Splitter) 1 ea UNSCH PRN OTHER 01/20/16 14:15 02/08/16 20:56 (Imodium) 2 mg Q6H PRN PO 01/21/16 12:45 04/16/16 20:29 (Lomotil Tab) 2 tab Q6H PRN PO 01/21/16 12:45 06/29/16 21:14 (Proamatine) 10 mg TID@07,,17 PO 02/18/16 07:00 07/08/16 06:11 (Prevacid Odt) 30 mg DAILY PEG 02/28/16 09:00 07/08/16 08:27 (Dulcolax Supp) 10 mg DAILY PRN MO 03/07/16 10:15 (Free Water) 200 ml DAILY G-TUBE 06/01/16 14:00 07/08/16 08:27 (Lotrimin 1% Cream) 1 applic Q12HR TOPICAL 06/29/16 21:00 07/08/16 08:27 Date of Insertion: Jun 17, 2016 A/P Problem List: (1) Prerenal azotemia ICD Code: R79.89 Status: Acute Assessment and Plan Dementia with inappropriate behavior, mood disorder improved patient more somnolent today, likely secondary to medication use, patient is afebrile, no tachycardia, no signs of infection. Patient has not had any recurrent inappropriate behavior since increasing the Risperdal Patient has been hospitalized for similar events in 2014 Consulted psychiatry for further evaluation, who indicated that this is a frontal lobe dementia Risperdal discontinued at family's request Continue Remeron Parkinson's disease: Patient has dementia and resting tremor. Chronic, stable. Weakness: Continue physical therapy Nursing staff to get patient up out of bed at least 3 times daily GI bleed with presenting of Upper GI bleed, patient with intermittent rectal bleeding: Resolved Hemoglobin continues to remain stable GI was following and reevaluated on 05/04/16 Presumed hemorrhoids, continue Anusol HC for 2 weeks Continue PPI. Protein calorie malnutrition: Improving Consulted dietitian who indicated that patient may be converted to bolus feeding Jevity 1.5, 6 cans per day. 1.5 cans that 0800 and 2000, 1 can at 1100, 1400, 1700 Prealbumin level 24 Hypotension with episodes of hypertension: Stable Blood pressure labile. Continue monitor blood pressure Continue Midodrine. Mild obstructive uropathy: Resolved. Appreciate urology recommendations. Suprapubic catheter in place, last changed 07/05/16. Abdominal pelvis CT 03/06/16 shows resolution of right sided hydronephrosis. Recurrent urinary tract infection Replaced Soto 07/05/16, continue changed monthly Patient with urine cultures with different organisms, likely secondary to suprapubic catheter, continue monitor and treat only if symptomatic Elevated BUN, stable Continue fluid flushes via PEG tube to avoid dehydration. Stage I decubitus ulcer, sacral skin tear: Continue wound care. Palliative care evaluation According to palliative care notes. Family wishes aggressive management, they are expecting him to improve, go to a rehabilitation facility and then improve enough to go home. They are deferring hospice. DVT prophylaxis: SCDs. Avoid chemical prophylaxis secondary to GI bleed. No change present treatment plan Discharge Planning Case management has requested [facility] to evaluate patient for possible placement on 06/12/16. Requested an update from regarding the outcome of the evaluation. 07/03: Discussed with briefcase sewer Emre Al. Several other facilities have been contacted but no acceptance thus far. Bettina Gomez Jul 08, 2016 09:13
[2016-07-08 20:00] VITALS: BP 104/66; PULSE 72; RESP 16; TEMP 96.5; O2SAT 95
[2016-07-08] MEDS: MIRTAZAPINE 15 MG TAB PEG SCH (20:14)
[2016-07-09] MEDS: MIDODRINE 5 MG TAB PO SCH ×3 (06:04→17:09)
[2016-07-09 08:00] VITALS: BP 118/88; PULSE 90; RESP 18; TEMP 97.6; O2SAT 96
[2016-07-09] MEDS: ACETAMINOPHEN 325 MG TAB PO PRN (08:02)
[2016-07-09] MEDS: FREE WATER G-TUBE SCH (08:02)
[2016-07-09] MEDS: ALLOPURINOL 100 MG TAB PEG SCH (08:02)
[2016-07-09] MEDS: LANSOPRAZOLE SOLUTAB 30 MG TAB PEG SCH (08:02)
[2016-07-09] MEDS: CLOTRIMAZOLE 1% CREAM 15 GM TOPICAL SCH ×2 (09:00→22:21)
--- NOTE | 2016-07-09 10:35 | HHI.PR ---
Subjective Remarks No acute complaints. No change in clinical status. Objective Vitals Vital Signs Date Time Temp Pulse Resp B/P Pulse Ox O2 Delivery O2 Flow Rate FiO2 07/09/16 09:02 20 07/09/16 08:00 97.6 90 18 118/88 96 07/08/16 20:00 96.5 72 16 104/66 95 I/O 07/08/16 07/08/16 07/08/16 07/09/16 07/09/16 07/09/16 07:00 15:00 23:00 07:00 15:00 23:00 Intake Total 0 ml Output Total 375 ml 600 ml 225 ml 300 ml Balance -375 ml -600 ml -225 ml -300 ml Intake Oral 0 ml Output Urine Total 375 ml 600 ml 225 ml 300 ml # Bowel Movements 2 1 2 1 Result Diagram: 07/05/16 0545 07/05/16 0545 Objective Remarks GENERAL: Well developed male in no apparent distress. CARDIOVASCULAR: Regular rate and rhythm. RESPIRATORY: No accessory muscle use. CTAB. GASTROINTESTINAL: Abdomen soft, nontender, nondistended. NEURO: Sleeping but nods to questions. Procedures None Urinary Catheter: No Date of Insertion: Jun 17, 2016 Vascular Central Line Catheter: No A/P Problem List: (1) Prerenal azotemia ICD Code: R79.89 Status: Acute Assessment and Plan Upper GI bleeding: Resolved with recurrent rectal bleeding. Hemoglobin stable. GI reevaluated patient on 05/04. Presumed hemorrhoids, s/p Anusol HC for total of 2 weeks. Continue PPI. Protein calorie malnutrition: Improving Consulted dietitian who indicated that patient may be converted to bolus feeding Jevity 1.5 w/ bolus 1.5 cans(360ml) @ 0800 and 2000 and 1-can(240ml) @ 1100, 1400 and 1700. Free Water Flush 100ml before and after each bolus feeding. Ensure Enlive tid and chocolate pudding tid Prealbumin level 25. Patient desired to eat and speech therapy advised puree diet, thin liquids, but patient has not been eating. Treating Plant Operator suggested considering appetite stimulant. This was discussed with attending, but we do not believe this would be beneficial for patient and would add unnecessary risk to the patient. Will continue with tube feeds only. Dementia with inappropriate behavior, mood disorder improved Patient had inappropriate behavior which is resolved now. He has been very appropriate for a long time now. Patient has been hospitalized for similar events in 2015 Consulted psychiatry for further evaluation, who indicated that this is a frontal lobe dementia Risperdal 0.25 mg during the day, Risperdal 0.5 mg at night. Risperdal was discontinued per POA request. Continue Remeron Psychiatry was reconsulted and is ok with discontinuation of Risperdal, but recommends Haldol 1-2 mg q12 prn for aggressive behavior and agitation. I have not witnessed any behavior like this. Probable seborrheic dermatitis: Flaky skin to the face and neck. -Improved s/p one time dose of Ketoconazole 2% shampoo. -Monitor need for further treatments. Chalazion: Persistent nodule R upper eyelid. There is no evidence of preseptal cellulitis. -Warm compresses were applied but it was greater than 2 weeks without significant improvement. -Ophthalmology was consulted and evaluated patient on 03/26. S/p warm compresses and Tobradex 4 times a day OD x 2 weeks. Patient was intermittently compliant with eyedrops. -No worsening. Follow-up outpatient. Hypotension: Blood pressure labile. Continue Midodrine. Patient on max dose. Increase free water flushes as needed. Pre-renal azotemia: BUN elevated at 23. Continue free water flushes Stage I decubitus ulcer, sacral skin tear: Continue wound care. Frequent turning of patient. 06/13: I spoke with wound care nurse; no evidence of pressure ulcer to buttocks at this time. Candidal infection: buttocks affected with satellite lesions to the perineum. -S/p Nystatin -Continue Clotrimazole -Nurse was advised to monitor patient for development of pressure ulceration although was evaluated by wound care recently without evidence of this. Mild obstructive uropathy: Resolved. Appreciate urology recommendations. Suprapubic catheter to be changed monthly; it was last changed on 06/17/16. Abdominal pelvis CT 03/06/16 shows resolution of right sided hydronephrosis. Urinary tract infection: Urine culture positive for Proteus mirabilis and GBS on 01/20. Patient completed course of antibiotics. Abdominal pelvis CT 03/06 shows decompressed bladder with circumferential bladder wall thickening and intraluminal air possibly indicating cystitis, but the patient had been afebrile with normal WBC count. Urine culture 05/31 with Serratia marcescens, Pseudomonas, and Enterococcus faecalis. Patient was treated with ceftriaxone. Repeat urine culture on 06/04 only reveals contaminants. Weakness: Continue physical therapy Nursing staff to get patient up out of bed at least 3 times daily Palliative care evaluation According to palliative care notes family wishes aggressive management, they are expecting him to improve, go to a rehabilitation facility and then improve enough to go home. They are declining hospice. DVT prophylaxis: SCDs. Avoid chemical prophylaxis secondary to GI bleed. Discharge Planning CM requested [facility] to evaluate for placement. Madeline Ortez Jul 09, 2016 10:34 Madeline Ortez Jul 09, 2016 10:34
[2016-07-09 20:00] VITALS: BP 112/71; PULSE 86; RESP 16; TEMP 97.5; O2SAT 95
[2016-07-09] MEDS: MIRTAZAPINE 15 MG TAB PEG SCH (22:20)
[2016-07-10] MEDS: MIDODRINE 5 MG TAB PO SCH ×3 (06:00→17:03)
[2016-07-10 08:00] VITALS: BP 96/63; PULSE 71; RESP 16; TEMP 96.9; O2SAT 93
[2016-07-10] MEDS: LANSOPRAZOLE SOLUTAB 30 MG TAB PEG SCH (08:18)
[2016-07-10] MEDS: ALLOPURINOL 100 MG TAB PEG SCH (08:18)
[2016-07-10] MEDS: FREE WATER G-TUBE SCH (08:18)
[2016-07-10] MEDS: CLOTRIMAZOLE 1% CREAM 15 GM TOPICAL SCH ×2 (08:19→21:00)
--- NOTE | 2016-07-10 10:30 | HHI.PR ---
Subjective Remarks No acute complaints. No change in clinical status. Objective Vitals Vital Signs Date Time Temp Pulse Resp B/P Pulse Ox O2 Delivery O2 Flow Rate FiO2 07/10/16 08:00 96.9 71 16 96/63 93 07/09/16 20:00 97.5 86 16 112/71 95 I/O 07/09/16 07/09/16 07/09/16 07/10/16 07/10/16 07/10/16 07:00 15:00 23:00 07:00 15:00 23:00 Output Total 300 ml 250 ml 250 ml 250 ml Balance -300 ml -250 ml -250 ml -250 ml Output Urine Total 300 ml 250 ml 250 ml 250 ml # Bowel Movements 1 1 1 Objective Remarks GENERAL: Well developed male in no apparent distress. CARDIOVASCULAR: Regular rate and rhythm. RESPIRATORY: No accessory muscle use. CTAB. GASTROINTESTINAL: Normoactive bowel sounds. Abdomen soft, nontender, nondistended. NEURO: Awake and alert. Nods to questions. Procedures None Urinary Catheter: No Date of Insertion: Jun 17, 2016 Vascular Central Line Catheter: No A/P Problem List: (1) Prerenal azotemia ICD Code: R79.89 Status: Acute Assessment and Plan Upper GI bleeding: Resolved with recurrent rectal bleeding. Hemoglobin stable. GI reevaluated patient on 05/04. Presumed hemorrhoids, s/p Anusol HC for total of 2 weeks. Continue PPI. Protein calorie malnutrition: Improving Consulted dietitian who indicated that patient may be converted to bolus feeding Jevity 1.5 w/ bolus 1.5 cans(360ml) @ 0800 and 2000 and 1-can(240ml) @ 1100, 1400 and 1700. Free Water Flush 100ml before and after each bolus feeding. Ensure Enlive tid and chocolate pudding tid Prealbumin level 25. Patient desired to eat and speech therapy advised puree diet, thin liquids, but patient has not been eating. Diversity Intern suggested considering appetite stimulant. This was discussed with attending, but we do not believe this would be beneficial for patient and would add unnecessary risk to the patient. Will continue with tube feeds only. Dementia with inappropriate behavior, mood disorder improved Patient had inappropriate behavior which is resolved now. He has been very appropriate for a long time now. Patient has been hospitalized for similar events in 2015 Consulted psychiatry for further evaluation, who indicated that this is a frontal lobe dementia Risperdal 0.25 mg during the day, Risperdal 0.5 mg at night. Risperdal was discontinued per POA request. [facility] Psych[facility] was reconsulted and is ok with discontinuation of Risperdal. Probable seborrheic dermatitis: Flaky skin to the face and neck. -Improved s/p one time dose of Ketoconazole 2% shampoo. -Monitor need for further treatments. Chalazion: Persistent nodule R upper eyelid. There is no evidence of preseptal cellulitis. -Warm compresses were applied but it was greater than 2 weeks without significant improvement. -Ophthalmology was consulted and evaluated patient on 03/26. S/p warm compresses and Tobradex 4 times a day OD x 2 weeks. Patient was intermittently compliant with eyedrops. -No worsening. Follow-up outpatient. Hypotension: Blood pressure labile. Continue Midodrine. Patient on max dose. Increase free water flushes as needed. Pre-renal azotemia: BUN stable at 21. Continue free water flushes Stage I decubitus ulcer, sacral skin tear: Continue wound care. Frequent turning of patient. 06/13: I spoke with wound care nurse; no evidence of pressure ulcer to buttocks at this time. Candidal infection: buttocks affected with satellite lesions to the perineum. -S/p Nystatin -Continue Clotrimazole -Nurse was advised to monitor patient for development of pressure ulceration although was evaluated by wound care recently without evidence of this. Mild obstructive uropathy: Resolved. Appreciate urology recommendations. Suprapubic catheter to be changed monthly; it was last changed on 06/17/16. Abdominal pelvis CT 03/06/16 shows resolution of right sided hydronephrosis. Urinary tract infection: Urine culture positive for Proteus mirabilis and GBS on 01/20. Patient completed course of antibiotics. Abdominal pelvis CT 03/06 shows decompressed bladder with circumferential bladder wall thickening and intraluminal air possibly indicating cystitis, but the patient had been afebrile with normal WBC count. Urine culture 05/31 with Serratia marcescens, Pseudomonas, and Enterococcus faecalis. Patient was treated with ceftriaxone. Repeat urine culture on 06/04 only reveals contaminants. Weakness: Continue physical therapy Nursing staff to get patient up out of bed at least 3 times daily Palliative care evaluation According to palliative care notes family wishes aggressive management, they are expecting him to improve, go to a rehabilitation facility and then improve enough to go home. They are declining hospice. DVT prophylaxis: SCDs. Avoid chemical prophylaxis secondary to GI bleed. Discharge Planning CM requested [facility] to evaluate for placement. Madeline Ortez Jul 10, 2016 10:29
[2016-07-10 20:00] VITALS: BP 96/58; PULSE 84; RESP 16; TEMP 98.5; O2SAT 96
[2016-07-10] MEDS: MIRTAZAPINE 15 MG TAB PEG SCH (21:20)
[2016-07-11] MEDS: MIDODRINE 5 MG TAB PO SCH ×3 (05:45→17:25)
[2016-07-11 07:00] VITALS: BP 109/69; PULSE 71; RESP 20; TEMP 96.7; O2SAT 96
[2016-07-11] MEDS: CLOTRIMAZOLE 1% CREAM 15 GM TOPICAL SCH ×2 (08:36→20:07)
[2016-07-11] MEDS: ALLOPURINOL 100 MG TAB PEG SCH (08:36)
[2016-07-11] MEDS: LANSOPRAZOLE SOLUTAB 30 MG TAB PEG SCH (08:36)
[2016-07-11] MEDS: FREE WATER G-TUBE SCH (08:36)
--- NOTE | 2016-07-11 10:43 | HHI.PR ---
Subjective Remarks No acute complaints. No change in clinical status. Objective Vitals Vital Signs Date Time Temp Pulse Resp B/P Pulse Ox O2 Delivery O2 Flow Rate FiO2 07/11/16 07:00 96.7 71 20 109/69 96 07/10/16 20:00 98.5 84 16 96/58 96 I/O 07/10/16 07/10/16 07/10/16 07/11/16 07/11/16 07/11/16 07:00 15:00 23:00 07:00 15:00 23:00 Intake Total 840 ml 660 ml Output Total 250 ml 450 ml 500 ml Balance -250 ml -450 ml 840 ml 160 ml Tube Feeding 840 ml 360 ml Tube Irrigant 300 ml Output Urine Total 250 ml 450 ml 500 ml # Bowel Movements 1 0 2 Objective Remarks GENERAL: Well developed male in no apparent distress. CARDIOVASCULAR: Regular rate and rhythm. RESPIRATORY: No accessory muscle use. CTAB. GASTROINTESTINAL: Abdomen soft, nontender, nondistended. NEURO: Awake and alert. Nods to questions. Procedures None Urinary Catheter: No Date of Insertion: Jun 17, 2016 Vascular Central Line Catheter: No A/P Problem List: (1) Prerenal azotemia ICD Code: R79.89 Status: Acute Assessment and Plan Upper GI bleeding: Resolved with recurrent rectal bleeding. Hemoglobin stable. GI reevaluated patient on 05/04. Presumed hemorrhoids, s/p Anusol HC for total of 2 weeks. Continue PPI. Protein calorie malnutrition: Improving Consulted dietitian who indicated that patient may be converted to bolus feeding Jevity 1.5 w/ bolus 1.5 cans(360ml) @ 0800 and 2000 and 1-can(240ml) @ 1100, 1400 and 1700. Free Water Flush 100ml before and after each bolus feeding. Ensure Enlive tid and chocolate pudding tid Prealbumin level 25. Patient desired to eat and speech therapy advised puree diet, thin liquids, but patient has not been eating. Quarry Extraction Worker suggested considering appetite stimulant. This was discussed with attending, but we do not believe this would be beneficial for patient and would add unnecessary risk to the patient. Will continue with tube feeds only. Dementia with inappropriate behavior, mood disorder improved Patient had inappropriate behavior which is resolved now. He has been very appropriate for a long time now. Patient has been hospitalized for similar events in 2015 Consulted psychiatry for further evaluation, who indicated that this is a frontal lobe dementia Risperdal 0.25 mg during the day, Risperdal 0.5 mg at night. Risperdal was discontinued per POA request. Continue Remeron Psychiatry was reconsulted and is ok with discontinuation of Risperdal. Probable seborrheic dermatitis: Flaky skin to the face and neck. -Improved s/p one time dose of Ketoconazole 2% shampoo. -Monitor need for further treatments. Chalazion: Persistent nodule R upper eyelid. There is no evidence of preseptal cellulitis. -Warm compresses were applied but it was greater than 2 weeks without significant improvement. -Ophthalmology was consulted and evaluated patient on 03/26. S/p warm compresses and Tobradex 4 times a day OD x 2 weeks. Patient was intermittently compliant with eyedrops. -No worsening. Follow-up outpatient. Hypotension: Blood pressure labile. Continue Midodrine. Patient on max dose. Increase free water flushes as needed. Pre-renal azotemia: BUN stable at 21. Continue free water flushes Stage I decubitus ulcer, sacral skin tear: Continue wound care. Frequent turning of patient. 06/13: I spoke with wound care nurse; no evidence of pressure ulcer to buttocks at this time. Candidal infection: buttocks affected with satellite lesions to the perineum. -S/p Nystatin -Continue Clotrimazole -Nurse was advised to monitor patient for development of pressure ulceration although was evaluated by wound care recently without evidence of this. Mild obstructive uropathy: Resolved. Appreciate urology recommendations. Suprapubic catheter to be changed monthly; it was last changed on 06/17/16. Abdominal pelvis CT 03/06/16 shows resolution of right sided hydronephrosis. Urinary tract infection: Urine culture positive for Proteus mirabilis and GBS on 01/20. Patient completed course of antibiotics. Abdominal pelvis CT 03/06 shows decompressed bladder with circumferential bladder wall thickening and intraluminal air possibly indicating cystitis, but the patient had been afebrile with normal WBC count. Urine culture 05/31 with Serratia marcescens, Pseudomonas, and Enterococcus faecalis. Patient was treated with ceftriaxone. Repeat urine culture on 06/04 only reveals contaminants. Weakness: Continue physical therapy Nursing staff to get patient up out of bed at least 3 times daily Palliative care evaluation According to palliative care notes family wishes aggressive management, they are expecting him to improve, go to a rehabilitation facility and then improve enough to go home. They are declining hospice. DVT prophylaxis: SCDs. Avoid chemical prophylaxis secondary to GI bleed. Discharge Planning CM requested [facility] to evaluate for placement. Madeline Ortez Jul 11, 2016 10:43
[2016-07-11 20:00] VITALS: BP 108/74; PULSE 83; RESP 23; TEMP 98.1; O2SAT 95
[2016-07-11] MEDS: MIRTAZAPINE 15 MG TAB PEG SCH (20:07)
[2016-07-12] MEDS: MIDODRINE 5 MG TAB PO SCH ×3 (06:01→16:43)
[2016-07-12 08:00] VITALS: BP 115/81; PULSE 78; RESP 16; TEMP 96.9; O2SAT 94
[2016-07-12] MEDS: ALLOPURINOL 100 MG TAB PEG SCH (08:50)
[2016-07-12] MEDS: LANSOPRAZOLE SOLUTAB 30 MG TAB PEG SCH (08:50)
[2016-07-12] MEDS: CLOTRIMAZOLE 1% CREAM 15 GM TOPICAL SCH ×2 (08:51→19:59)
[2016-07-12] MEDS: FREE WATER G-TUBE SCH (08:58)
--- NOTE | 2016-07-12 11:27 | HHI.PR ---
Subjective Remarks No acute complaints. No change in clinical status. Objective Vitals Vital Signs Date Time Temp Pulse Resp B/P Pulse Ox O2 Delivery O2 Flow Rate FiO2 07/12/16 08:00 96.9 78 16 115/81 94 07/11/16 20:00 98.1 83 23 108/74 95 I/O 07/11/16 07/11/16 07/11/16 07/12/16 07/12/16 07/12/16 07:00 15:00 23:00 07:00 15:00 23:00 Intake Total 660 ml Output Total 500 ml 350 ml 350 ml 550 ml Balance 160 ml -350 ml -350 ml -550 ml Tube Feeding 360 ml Tube Irrigant 300 ml Output Urine Total 500 ml 350 ml 350 ml 550 ml # Bowel Movements 2 1 1 0 Objective Remarks GENERAL: Well developed male in no apparent distress. CARDIOVASCULAR: Regular rate and rhythm. RESPIRATORY: No accessory muscle use. CTAB. GASTROINTESTINAL: Abdomen soft, nontender, nondistended. NEURO: Awake and alert. Nods to questions. Procedures None Urinary Catheter: Yes Assessment to: Continue Soto insert reason: Prolonged Immobilization Date of Insertion: Jun 17, 2016 Vascular Central Line Catheter: No A/P Problem List: (1) Prerenal azotemia ICD Code: R79.89 Status: Acute Assessment and Plan Upper GI bleeding: Resolved with recurrent rectal bleeding. Hemoglobin stable. GI reevaluated patient on 05/04. Presumed hemorrhoids, s/p Anusol HC for total of 2 weeks. Continue PPI. Protein calorie malnutrition: Improving Consulted dietitian who indicated that patient may be converted to bolus feeding Jevity 1.5 w/ bolus 1.5 cans(360ml) @ 0800 and 2000 and 1-can(240ml) @ 1100, 1400 and 1700. Free Water Flush 100ml before and after each bolus feeding. Ensure Enlive tid and chocolate pudding tid Prealbumin level 25. Patient desired to eat and speech therapy advised puree diet, thin liquids, but patient has not been eating. Career Resource Technician suggested considering appetite stimulant. This was discussed with attending, but we do not believe this would be beneficial for patient and would add unnecessary risk to the patient. Will continue with tube feeds only. Dementia with inappropriate behavior, mood disorder improved Patient had inappropriate behavior which is resolved now. He has been very appropriate for a long time now. Patient has been hospitalized for similar events in 2015 Consulted psychiatry for further evaluation, who indicated that this is a frontal lobe dementia Risperdal 0.25 mg during the day, Risperdal 0.5 mg at night. Risperdal was discontinued per POA request. Continue Remeron Psychiatry was reconsulted and is ok with discontinuation of Risperdal. Probable seborrheic dermatitis: Flaky skin to the face and neck. -Improved s/p one time dose of Ketoconazole 2% shampoo. -Monitor need for further treatments. Chalazion: Persistent nodule R upper eyelid. There is no evidence of preseptal cellulitis. -Warm compresses were applied but it was greater than 2 weeks without significant improvement. -Ophthalmology was consulted and evaluated patient on 03/26. S/p warm compresses and Tobradex 4 times a day OD x 2 weeks. Patient was intermittently compliant with eyedrops. -No worsening. Follow-up outpatient. Hypotension: Blood pressure labile. Continue Midodrine. Patient on max dose. Increase free water flushes as needed. Pre-renal azotemia: BUN stable at 21. Continue free water flushes Stage I decubitus ulcer, sacral skin tear: Continue wound care. Frequent turning of patient. 06/13: I spoke with wound care nurse; no evidence of pressure ulcer to buttocks at this time. Candidal infection: buttocks affected with satellite lesions to the perineum. -S/p Nystatin -Continue Clotrimazole -Nurse was advised to monitor patient for development of pressure ulceration although was evaluated by wound care recently without evidence of this. Mild obstructive uropathy: Resolved. Appreciate urology recommendations. Suprapubic catheter to be changed monthly; it was last changed on 06/17/16. Abdominal pelvis CT 03/06/16 shows resolution of right sided hydronephrosis. Urinary tract infection: Urine culture positive for Proteus mirabilis and GBS on 01/20. Patient completed course of antibiotics. Abdominal pelvis CT 03/06 shows decompressed bladder with circumferential bladder wall thickening and intraluminal air possibly indicating cystitis, but the patient had been afebrile with normal WBC count. Urine culture 05/31 with Serratia marcescens, Pseudomonas, and Enterococcus faecalis. Patient was treated with ceftriaxone. Repeat urine culture on 06/04 only reveals contaminants. Weakness: Continue physical therapy Nursing staff to get patient up out of bed at least 3 times daily Palliative care evaluation According to palliative care notes family wishes aggressive management, they are expecting him to improve, go to a rehabilitation facility and then improve enough to go home. They are declining hospice. DVT prophylaxis: SCDs. Avoid chemical prophylaxis secondary to GI bleed. Discharge Planning CM requested [facility] to evaluate for placement. Madeline Ortez Jul 12, 2016 11:27
[2016-07-12] MEDS: MIRTAZAPINE 15 MG TAB PEG SCH (19:51)
[2016-07-12 20:00] VITALS: BP 121/76; PULSE 76; RESP 20; TEMP 97.4; O2SAT 96
[2016-07-13] MEDS: MIDODRINE 5 MG TAB PO SCH ×3 (06:00→18:01)
[2016-07-13 08:00] VITALS: BP 103/73; PULSE 73; RESP 17; TEMP 97.4; O2SAT 96
[2016-07-13] MEDS: ALLOPURINOL 100 MG TAB PEG SCH (09:00)
[2016-07-13] MEDS: FREE WATER G-TUBE SCH (09:00)
[2016-07-13] MEDS: LANSOPRAZOLE SOLUTAB 30 MG TAB PEG SCH (09:00)
[2016-07-13] MEDS: CLOTRIMAZOLE 1% CREAM 15 GM TOPICAL SCH ×2 (09:00→21:28)
--- NOTE | 2016-07-13 11:36 | HHI.PR ---
Subjective Remarks No acute complaints. No change in clinical status. Objective Vitals Vital Signs Date Time Temp Pulse Resp B/P Pulse Ox O2 Delivery O2 Flow Rate FiO2 07/13/16 08:00 97.4 73 17 103/73 96 07/12/16 20:00 97.4 76 20 121/76 96 I/O 07/12/16 07/12/16 07/12/16 07/13/16 07/13/16 07/13/16 07:00 15:00 23:00 07:00 15:00 23:00 Intake Total 0 ml 1940 ml Output Total 550 ml 650 ml 250 ml 275 ml Balance -550 ml -650 ml 1690 ml -275 ml Intake Oral 0 ml Tube Feeding 1440 ml Tube Irrigant 500 ml Output Urine Total 550 ml 650 ml 250 ml 275 ml # Bowel Movements 0 1 2 2 Objective Remarks GENERAL: Well developed male in no apparent distress. CARDIOVASCULAR: Regular rate and rhythm. RESPIRATORY: No accessory muscle use. CTAB. GASTROINTESTINAL: Abdomen soft, nontender, nondistended. NEURO: Sleeping but nods head to questions. L hand tremor. Procedures None Urinary Catheter: Yes Assessment to: Continue Soto insert reason: Prolonged Immobilization Date of Insertion: Jul 05, 2016 Vascular Central Line Catheter: No A/P Problem List: (1) Prerenal azotemia ICD Code: R79.89 Status: Acute Assessment and Plan Upper GI bleeding: Resolved with recurrent rectal bleeding. Hemoglobin stable. GI reevaluated patient on 05/04. Presumed hemorrhoids, s/p Anusol HC for total of 2 weeks. Continue PPI. Protein calorie malnutrition: Improving Consulted dietitian who indicated that patient may be converted to bolus feeding Jevity 1.5 w/ bolus 1.5 cans(360ml) @ 0800 and 2000 and 1-can(240ml) @ 1100, 1400 and 1700. Free Water Flush 100ml before and after each bolus feeding. Ensure Enlive tid and chocolate pudding tid Prealbumin level 25. Patient desired to eat and speech therapy advised puree diet, thin liquids, but patient has not been eating. Food Beverage Attendant suggested considering appetite stimulant. This was discussed with attending, but we do not believe this would be beneficial for patient and would add unnecessary risk to the patient. Will continue with tube feeds only. Dementia with inappropriate behavior, mood disorder improved Patient had inappropriate behavior which is resolved now. He has been very appropriate for a long time now. Patient has been hospitalized for similar events in 2015 Consulted psychiatry for further evaluation, who indicated that this is a frontal lobe dementia Risperdal 0.25 mg during the day, Risperdal 0.5 mg at night. Risperdal was discontinued per POA request. Continue Remeron Psychiatry was reconsulted and is ok with discontinuation of Risperdal. Probable seborrheic dermatitis: Flaky skin to the face and neck. -Improved s/p one time dose of Ketoconazole 2% shampoo. -Monitor need for further treatments. Chalazion: Persistent nodule R upper eyelid. There is no evidence of preseptal cellulitis. -Warm compresses were applied but it was greater than 2 weeks without significant improvement. -Ophthalmology was consulted and evaluated patient on 03/26. S/p warm compresses and Tobradex 4 times a day OD x 2 weeks. Patient was intermittently compliant with eyedrops. -No worsening. Follow-up outpatient. Hypotension: Blood pressure labile. Continue Midodrine. Patient on max dose. Increase free water flushes as needed. Pre-renal azotemia: BUN stable at 21. Continue free water flushes Stage I decubitus ulcer, sacral skin tear: Continue wound care. Frequent turning of patient. 06/13: I spoke with wound care nurse; no evidence of pressure ulcer to buttocks at this time. Candidal infection: buttocks affected with satellite lesions to the perineum. -S/p Nystatin -Continue Clotrimazole -Nurse was advised to monitor patient for development of pressure ulceration although was evaluated by wound care recently without evidence of this. Mild obstructive uropathy: Resolved. Appreciate urology recommendations. Suprapubic catheter to be changed monthly; it was last changed on 07/05/16. Abdominal pelvis CT 03/06/16 shows resolution of right sided hydronephrosis. Urinary tract infection: Urine culture positive for Proteus mirabilis and GBS on 01/20. Patient completed course of antibiotics. Abdominal pelvis CT 03/06 shows decompressed bladder with circumferential bladder wall thickening and intraluminal air possibly indicating cystitis, but the patient had been afebrile with normal WBC count. Urine culture 05/31 with Serratia marcescens, Pseudomonas, and Enterococcus faecalis. Patient was treated with ceftriaxone. Repeat urine culture on 06/04 only reveals contaminants. Weakness: Continue physical therapy Nursing staff to get patient up out of bed at least 3 times daily Palliative care evaluation According to palliative care notes family wishes aggressive management, they are expecting him to improve, go to a rehabilitation facility and then improve enough to go home. They are declining hospice. DVT prophylaxis: SCDs. Avoid chemical prophylaxis secondary to GI bleed. Discharge Planning CM requested [facility] to evaluate for placement. Madeline Ortez Jul 13, 2016 11:36
[2016-07-13 20:37] VITALS: BP 110/61; PULSE 67; RESP 16; TEMP 97.8; O2SAT 97
[2016-07-13] MEDS: MIRTAZAPINE 15 MG TAB PEG SCH (21:24)
[2016-07-14] MEDS: MIDODRINE 5 MG TAB PO SCH ×3 (06:15→17:10)
[2016-07-14 08:00] VITALS: BP 101/70; PULSE 62; RESP 16; TEMP 97.3; O2SAT 96
[2016-07-14] MEDS: CLOTRIMAZOLE 1% CREAM 15 GM TOPICAL SCH ×2 (08:38→22:30)
[2016-07-14] MEDS: ALLOPURINOL 100 MG TAB PEG SCH (08:38)
[2016-07-14] MEDS: FREE WATER G-TUBE SCH (08:38)
[2016-07-14] MEDS: LANSOPRAZOLE SOLUTAB 30 MG TAB PEG SCH (08:38)
--- NOTE | 2016-07-14 16:56 | HHI.PR ---
Subjective Remarks Patient seen and evaluated today in follow-up for dementia. Family at bedside. Objective Vitals Vital Signs Date Time Temp Pulse Resp B/P Pulse Ox O2 Delivery O2 Flow Rate FiO2 07/14/16 08:00 97.3 62 16 101/70 96 07/13/16 20:37 97.8 67 16 110/61 97 I/O 07/13/16 07/13/16 07/13/16 07/14/16 07/14/16 07/14/16 07:00 15:00 23:00 07:00 15:00 23:00 Intake Total 460 ml 0 ml Output Total 275 ml 300 ml 100 ml 200 ml 300 ml Balance -275 ml -300 ml 360 ml -200 ml -300 ml IV Total 0 ml Tube Feeding 360 ml Tube Irrigant 100 ml Output Urine Total 275 ml 300 ml 100 ml 200 ml 300 ml # Bowel Movements 2 1 0 2 1 Objective Remarks GENERAL: This is a frail and ill-appearing gentleman CARDIOVASCULAR: Regular rate and rhythm without murmurs, gallops, or rubs. RESPIRATORY: Clear to auscultation. Breath sounds equal bilaterally. No wheezes , rales, or rhonchi. GASTROINTESTINAL: victor/PEG tube Abdomen soft, non-tender, nondistended. Normal active bowel sounds MUSCULOSKELETAL: Extremities without clubbing, cyanosis, or edema. NEURO: Alert & Oriented x4 to person, place, time, situation. Moves all ext x4 Procedures None Date of Insertion: Jul 05, 2016 A/P Assessment and Plan Hospital day #176 in this patient with dementia. No new complaints or events Discharge Planning Patient will need long-term care. Case management aware of barriers to discharge Catheter changed 05/13 Continue with Rocephin and follow culture results for mixed leticia Aster Chau MD Jul 14, 2016 16:55
[2016-07-14] MEDS: MIRTAZAPINE 15 MG TAB PEG SCH (22:30)
[2016-07-15 04:04] VITALS: BP 100/61; PULSE 63; RESP 16; TEMP 97.6; O2SAT 93
[2016-07-15] MEDS: MIDODRINE 5 MG TAB PO SCH ×3 (05:55→16:27)
[2016-07-15 08:00] VITALS: BP 121/73; PULSE 66; RESP 17; TEMP 97.3; O2SAT 94
[2016-07-15] MEDS: FREE WATER G-TUBE SCH (09:00)
--- NOTE | 2016-07-15 09:36 | HHI.PR ---
Subjective Remarks Follow-up for dementia. No acute complaints. No change in clinical status. Objective Vitals Vital Signs Date Time Temp Pulse Resp B/P Pulse Ox O2 Delivery O2 Flow Rate FiO2 07/15/16 08:00 97.3 66 17 121/73 94 07/15/16 04:04 97.6 63 16 100/61 93 I/O 07/14/16 07/14/16 07/14/16 07/15/16 07/15/16 07/15/16 07:00 15:00 23:00 07:00 15:00 23:00 Intake Total 0 ml Output Total 200 ml 300 ml 450 ml 600 ml Balance -200 ml -300 ml -450 ml -600 ml IV Total 0 ml Output Urine Total 200 ml 300 ml 450 ml 600 ml # Bowel Movements 2 1 1 Objective Remarks GENERAL: Well developed male in no apparent distress. CARDIOVASCULAR: Regular rate and rhythm. RESPIRATORY: No accessory muscle use. CTAB. GASTROINTESTINAL: Abdomen soft, nontender, nondistended. NEURO: Awake and alert. Does not speak aloud. Procedures None Urinary Catheter: Yes Assessment to: Continue Soto insert reason: Prolonged Immobilization Date of Insertion: Jul 05, 2016 Vascular Central Line Catheter: No A/P Problem List: (1) Prerenal azotemia ICD Code: R79.89 Status: Acute Assessment and Plan Upper GI bleeding: Resolved with recurrent rectal bleeding. Hemoglobin stable. GI reevaluated patient on 05/04. Presumed hemorrhoids, s/p Anusol HC for total of 2 weeks. Continue PPI. Protein calorie malnutrition: Improving Consulted dietitian who indicated that patient may be converted to bolus feeding Jevity 1.5 w/ bolus 1.5 cans(360ml) @ 0800 and 2000 and 1-can(240ml) @ 1100, 1400 and 1700. Free Water Flush 100ml before and after each bolus feeding. Ensure Enlive tid and chocolate pudding tid Prealbumin level 25. Patient desired to eat and speech therapy advised puree diet, thin liquids, but patient has not been eating. Drawer Maker suggested considering appetite stimulant. This was discussed with attending, but we do not believe this would be beneficial for patient and would add unnecessary risk to the patient. Will continue with tube feeds only. Dementia with inappropriate behavior, mood disorder improved Patient had inappropriate behavior which is resolved now. He has been very appropriate for a long time now. Patient has been hospitalized for similar events in 2015 Consulted psychiatry for further evaluation, who indicated that this is a frontal lobe dementia Risperdal 0.25 mg during the day, Risperdal 0.5 mg at night. Risperdal was discontinued per POA request. Continue Remeron Psychiatry was reconsulted and is ok with discontinuation of Risperdal. Probable seborrheic dermatitis: Flaky skin to the face and neck. -Improved s/p one time dose of Ketoconazole 2% shampoo. -Monitor need for further treatments. Chalazion: Persistent nodule R upper eyelid. There is no evidence of preseptal cellulitis. -Warm compresses were applied but it was greater than 2 weeks without significant improvement. -Ophthalmology was consulted and evaluated patient on 03/26. S/p warm compresses and Tobradex 4 times a day OD x 2 weeks. Patient was intermittently compliant with eyedrops. -No worsening. Follow-up outpatient. Hypotension: Blood pressure labile. Continue Midodrine. Patient on max dose. Increase free water flushes as needed. Pre-renal azotemia: BUN stable at 21. Continue free water flushes Stage I decubitus ulcer, sacral skin tear: Continue wound care. Frequent turning of patient. 06/13: I spoke with wound care nurse; no evidence of pressure ulcer to buttocks at this time. Candidal infection: buttocks affected with satellite lesions to the perineum. -S/p Nystatin -Continue Clotrimazole -Nurse was advised to monitor patient for development of pressure ulceration although was evaluated by wound care recently without evidence of this. Mild obstructive uropathy: Resolved. Appreciate urology recommendations. Suprapubic catheter to be changed monthly; it was last changed on 07/05/16. Abdominal pelvis CT 03/06/16 shows resolution of right sided hydronephrosis. Urinary tract infection: Urine culture positive for Proteus mirabilis and GBS on 01/20. Patient completed course of antibiotics. Abdominal pelvis CT 03/06 shows decompressed bladder with circumferential bladder wall thickening and intraluminal air possibly indicating cystitis, but the patient had been afebrile with normal WBC count. Urine culture 05/31 with Serratia marcescens, Pseudomonas, and Enterococcus faecalis. Patient was treated with ceftriaxone. Repeat urine culture on 06/04 only reveals contaminants. Weakness: Continue physical therapy Nursing staff to get patient up out of bed at least 3 times daily Palliative care evaluation According to palliative care notes family wishes aggressive management, they are expecting him to improve, go to a rehabilitation facility and then improve enough to go home. They are declining hospice. DVT prophylaxis: SCDs. Avoid chemical prophylaxis secondary to GI bleed. Discharge Planning CM requested [facility] to evaluate for placement. Madeline Ortez Jul 15, 2016 09:36
[2016-07-15] MEDS: LANSOPRAZOLE SOLUTAB 30 MG TAB PEG SCH (10:33)
[2016-07-15] MEDS: ALLOPURINOL 100 MG TAB PEG SCH (10:33)
[2016-07-15] MEDS: CLOTRIMAZOLE 1% CREAM 15 GM TOPICAL SCH ×2 (10:34→20:26)
[2016-07-15 20:00] VITALS: BP 111/67; PULSE 65; RESP 20; TEMP 97.1; O2SAT 96
[2016-07-15] MEDS: MIRTAZAPINE 15 MG TAB PEG SCH (20:26)
[2016-07-16] MEDS: MIDODRINE 5 MG TAB PO SCH ×3 (05:58→17:30)
[2016-07-16 08:00] VITALS: BP 117/82; PULSE 64; RESP 18; TEMP 97.7; O2SAT 95
[2016-07-16] MEDS: CLOTRIMAZOLE 1% CREAM 15 GM TOPICAL SCH ×2 (08:48→20:17)
[2016-07-16] MEDS: ALLOPURINOL 100 MG TAB PEG SCH (08:48)
[2016-07-16] MEDS: LANSOPRAZOLE SOLUTAB 30 MG TAB PEG SCH (08:48)
[2016-07-16] MEDS: FREE WATER G-TUBE SCH (08:49)
--- NOTE | 2016-07-16 13:10 | HHI.PR ---
Subjective Remarks Patient seen and examined today. Patient denies any new complaints. Patient states that he is not going to get out of bed today. No change in clinical status. Objective Vitals Vital Signs Date Time Temp Pulse Resp B/P Pulse Ox O2 Delivery O2 Flow Rate FiO2 07/16/16 08:00 97.7 64 18 117/82 95 07/15/16 20:00 97.1 65 20 111/67 96 Manual Cuff/Auscultation I/O 07/15/16 07/15/16 07/15/16 07/16/16 07/16/16 07/16/16 07:00 15:00 23:00 07:00 15:00 23:00 Intake Total 0 ml 1880 ml 120 ml Output Total 600 ml 350 ml 450 ml 350 ml Balance -600 ml -350 ml 1430 ml -230 ml Intake Oral 0 ml 0 ml 0 ml Tube Feeding 1440 ml Tube Irrigant 440 ml 120 ml Output Urine Total 600 ml 350 ml 450 ml 350 ml # Bowel Movements 1 0 1 Objective Remarks GENERAL: Well-developed, well-nourished, in no acute distress. Patient awake and alert HEENT: Head is normocephalic without any lesions or masses noted. Facial features are symmetric. Eyes: Extraocular muscles are intact. Conjunctivae were clear. NECK: Trachea midline no deviation. CARDIAC: Regular rhythm, regular rate. S1/S2 are heard. No murmurs gallops or rubs. LUNGS: Clear to auscultation bilaterally. No wheeze, rhonchi or rales. No use of accessory muscles on inspiration or expiration. ABDOMEN: Soft, nontender. Nondistended. Bowel sounds heard in all 4 quadrants. No organomegaly or masses. Negative rebound, negative guarding, suprapubic catheter in place, PEG tube noted EXTREMITIES: No edema, pulses are equal bilaterally. No cyanosis or clubbing NEUROLOGY: Mood and affect appear appropriate. Cranial nerves II through XII grossly intact. Moving all extremities SKIN: Patient's back has skin breakdown on his back and sacral area. Appears to the clinic heat rash which is developing worse because patient refuses to get out of bed. Procedures None Urinary Catheter: Yes (suprapubic) Assessment to: Continue Soto insert reason: Obstruction/Retention Date of Insertion: Jul 05, 2016 Vascular Central Line Catheter: No A/P Assessment and Plan Dementia with inappropriate behavior, mood disorder improved Patient has been hospitalized for similar events in 2015 Consulted psychiatry for further evaluation, who indicated that this is a frontal lobe dementia Risperdal discontinued at family's request Continue Remeron Parkinson's disease: Patient has dementia and resting tremor. Chronic, stable. Weakness: Continue physical therapy Nursing staff to get patient up out of bed at least 3 times daily GI bleed with presenting of Upper GI bleed, patient with intermittent rectal bleeding: Resolved Hemoglobin continues to remain stable GI was following and reevaluated on 05/04/16 Presumed hemorrhoids, continue Anusol HC for 2 weeks Continue PPI. Protein calorie malnutrition: Improving Consulted dietitian who indicated that patient may be converted to bolus feeding Jevity 1.5, 6 cans per day. 1.5 cans that 0800 and 2000, 1 can at 1100, 1400, 1700 Prealbumin level 24 Hypotension with episodes of hypertension: Stable Blood pressure labile. Continue monitor blood pressure Continue Midodrine. Mild obstructive uropathy: Resolved. Appreciate urology recommendations. Suprapubic catheter in place, last changed 07/05/16. Abdominal pelvis CT 03/06/16 shows resolution of right sided hydronephrosis. Recurrent urinary tract infection Replaced Soto 07/05/16, continue changed monthly Patient with urine cultures with different organisms, likely secondary to suprapubic catheter, continue monitor and treat only if symptomatic Elevated BUN, stable Continue fluid flushes via PEG tube to avoid dehydration. Stage I decubitus ulcer, sacral skin tear: Continue wound care. Palliative care evaluation According to palliative care notes. Family wishes aggressive management, they are expecting him to improve, go to a rehabilitation facility and then improve enough to go home. They are deferring hospice. DVT prophylaxis: SCDs. Avoid chemical prophylaxis secondary to GI bleed. No change present treatment plan Discharge Planning Discharge planning per case management. Case management is trying to arrange rehabilitation facility, however there has been no accepting facility at this time Jaguar Walker Jul 16, 2016 13:10
[2016-07-16 20:00] VITALS: BP 124/82; PULSE 75; RESP 21; TEMP 96.6; O2SAT 95
[2016-07-16] MEDS: MIRTAZAPINE 15 MG TAB PEG SCH (20:22)
[2016-07-17] MEDS: MIDODRINE 5 MG TAB PO SCH ×3 (06:33→17:51)
[2016-07-17] MEDS: CLOTRIMAZOLE 1% CREAM 15 GM TOPICAL SCH ×2 (07:52→20:19)
[2016-07-17] MEDS: LANSOPRAZOLE SOLUTAB 30 MG TAB PEG SCH (07:52)
[2016-07-17] MEDS: FREE WATER G-TUBE SCH (07:52)
[2016-07-17] MEDS: ALLOPURINOL 100 MG TAB PEG SCH (07:52)
[2016-07-17 08:00] VITALS: BP_SYST 123; BP_SYST 126; BP_DIAS 64; BP_DIAS 85; PULSE 74; PULSE 80; RESP 20; TEMP 96.6; TEMP 96.9; O2SAT 96; O2SAT 98
--- NOTE | 2016-07-17 09:03 | HHI.PR ---
Subjective Remarks Patient seen and examined today. Patient denies any new complaints. No change clinical status. Objective Vitals Vital Signs Date Time Temp Pulse Resp B/P Pulse Ox O2 Delivery O2 Flow Rate FiO2 07/16/16 20:00 96.6 75 21 124/82 95 I/O 07/16/16 07/16/16 07/16/16 07/17/16 07/17/16 07/17/16 07:00 15:00 23:00 07:00 15:00 23:00 Intake Total 120 ml 0 ml 1280 ml Output Total 350 ml 350 ml 250 ml 300 ml 300 ml Balance -230 ml -350 ml 1030 ml -300 ml -300 ml Intake Oral 0 ml 0 ml Tube Feeding 1080 ml Tube Irrigant 120 ml Other 200 ml Output Urine Total 350 ml 350 ml 250 ml 300 ml 300 ml # Bowel Movements 1 1 0 1 1 Objective Remarks GENERAL: Well-developed, well-nourished, in no acute distress. Patient awake and alert HEENT: Head is normocephalic without any lesions or masses noted. Facial features are symmetric. Eyes: Extraocular muscles are intact. Conjunctivae were clear. NECK: Trachea midline no deviation. CARDIAC: Regular rhythm, regular rate. S1/S2 are heard. No murmurs gallops or rubs. LUNGS: Clear to auscultation bilaterally. No wheeze, rhonchi or rales. No use of accessory muscles on inspiration or expiration. ABDOMEN: Soft, nontender. Nondistended. Bowel sounds heard in all 4 quadrants. No organomegaly or masses. Negative rebound, negative guarding, suprapubic catheter in place, PEG tube noted EXTREMITIES: No edema, pulses are equal bilaterally. No cyanosis or clubbing NEUROLOGY: Mood and affect appear appropriate. Cranial nerves II through XII grossly intact. Moving all extremities SKIN: Patient's back has skin breakdown on his back and sacral area. Appears to the clinic heat rash which is developing worse because patient refuses to get out of bed. Procedures None Urinary Catheter: No Date of Insertion: Jul 05, 2016 Vascular Central Line Catheter: No A/P Assessment and Plan Dementia with inappropriate behavior, mood disorder improved Patient has been hospitalized for similar events in 2015 Consulted psychiatry for further evaluation, who indicated that this is a frontal lobe dementia Risperdal discontinued at family's request Continue Remeron Parkinson's disease: Patient has dementia and resting tremor. Chronic, stable. Weakness: Continue physical therapy Nursing staff to get patient up out of bed at least 3 times daily GI bleed with presenting of Upper GI bleed, patient with intermittent rectal bleeding: Resolved Hemoglobin continues to remain stable GI was following and reevaluated on 05/04/16 Presumed hemorrhoids, continue Anusol HC for 2 weeks Continue PPI. Protein calorie malnutrition: Improving Consulted dietitian who indicated that patient may be converted to bolus feeding Jevity 1.5, 6 cans per day. 1.5 cans that 0800 and 2000, 1 can at 1100, 1400, 1700 Prealbumin level 24 Hypotension with episodes of hypertension: Stable Blood pressure labile. Continue monitor blood pressure Continue Midodrine. Mild obstructive uropathy: Resolved. Appreciate urology recommendations. Suprapubic catheter in place, last changed 07/05/16. Abdominal pelvis CT 03/06/16 shows resolution of right sided hydronephrosis. Recurrent urinary tract infection Replaced Soto 07/05/16, continue changed monthly Patient with urine cultures with different organisms, likely secondary to suprapubic catheter, continue monitor and treat only if symptomatic Elevated BUN, stable Continue fluid flushes via PEG tube to avoid dehydration. Stage I decubitus ulcer, sacral skin tear: Continue wound care. Palliative care evaluation According to palliative care notes. Family wishes aggressive management, they are expecting him to improve, go to a rehabilitation facility and then improve enough to go home. They are deferring hospice. DVT prophylaxis: SCDs. Avoid chemical prophylaxis secondary to GI bleed. No change present treatment plan Discharge Planning Discharge planning per case management. Case management last documentation indicates that they're requesting [facility] to evaluate for placement Jaguar Walker Jul 17, 2016 09:03
[2016-07-17 20:00] VITALS: BP 103/61; PULSE 92; RESP 16; TEMP 95.4; O2SAT 98
[2016-07-17] MEDS: MIRTAZAPINE 15 MG TAB PEG SCH (20:18)
[2016-07-18] MEDS: MIDODRINE 5 MG TAB PO SCH ×3 (06:25→17:04)
[2016-07-18 07:15] VITALS: BP 124/81; PULSE 86; RESP 20; TEMP 96.3; O2SAT 96
[2016-07-18] MEDS: ALLOPURINOL 100 MG TAB PEG SCH (08:10)
[2016-07-18] MEDS: LANSOPRAZOLE SOLUTAB 30 MG TAB PEG SCH (08:10)
[2016-07-18] MEDS: FREE WATER G-TUBE SCH (08:11)
[2016-07-18] MEDS: CLOTRIMAZOLE 1% CREAM 15 GM TOPICAL SCH ×2 (08:11→22:26)
--- NOTE | 2016-07-18 14:19 | HHI.PR ---
Subjective Remarks Patient sitting examined today. Patient denies any new complaints. No change clinical status. Objective Vitals Vital Signs Date Time Temp Pulse Resp B/P Pulse Ox O2 Delivery O2 Flow Rate FiO2 07/18/16 07:15 96.3 86 20 124/81 96 07/17/16 20:00 95.4 92 16 103/61 98 I/O 07/17/16 07/17/16 07/17/16 07/18/16 07/18/16 07/18/16 07:00 15:00 23:00 07:00 15:00 23:00 Intake Total 1080 ml Output Total 300 ml 300 ml 550 ml 200 ml Balance -300 ml -300 ml 530 ml -200 ml Tube Feeding 1080 ml Output Urine Total 300 ml 300 ml 550 ml 200 ml # Bowel Movements 1 1 1 1 Objective Remarks GENERAL: Well-developed, well-nourished, in no acute distress. Patient awake and alert HEENT: Head is normocephalic without any lesions or masses noted. Facial features are symmetric. Eyes: Extraocular muscles are intact. Conjunctivae were clear. NECK: Trachea midline no deviation. CARDIAC: Regular rhythm, regular rate. S1/S2 are heard. No murmurs gallops or rubs. LUNGS: Clear to auscultation bilaterally. No wheeze, rhonchi or rales. No use of accessory muscles on inspiration or expiration. ABDOMEN: Soft, nontender. Nondistended. Bowel sounds heard in all 4 quadrants. No organomegaly or masses. Negative rebound, negative guarding, suprapubic catheter in place, PEG tube noted EXTREMITIES: No edema, pulses are equal bilaterally. No cyanosis or clubbing NEUROLOGY: Mood and affect appear appropriate. Cranial nerves II through XII grossly intact. Moving all extremities SKIN: Patient's back has skin breakdown on his back and sacral area. Appears to the clinic heat rash which is developing worse because patient refuses to get out of bed. Procedures None Urinary Catheter: No Date of Insertion: Jul 05, 2016 Vascular Central Line Catheter: No A/P Assessment and Plan Dementia with inappropriate behavior, mood disorder improved Patient has been hospitalized for similar events in 2014 Consulted psychiatry for further evaluation, who indicated that this is a frontal lobe dementia Risperdal discontinued at family's request Continue Remeron Parkinson's disease: Patient has dementia and resting tremor. Chronic, stable. Weakness: Continue physical therapy Nursing staff to get patient up out of bed at least 3 times daily GI bleed with presenting of Upper GI bleed, patient with intermittent rectal bleeding: Resolved Hemoglobin continues to remain stable GI was following and reevaluated on 05/04/16 Presumed hemorrhoids, continue Anusol HC for 2 weeks Continue PPI. Protein calorie malnutrition: Improving Consulted dietitian who indicated that patient may be converted to bolus feeding Jevity 1.5, 6 cans per day. 1.5 cans that 0800 and 2000, 1 can at 1100, 1400, 1700 Prealbumin level 24 Hypotension with episodes of hypertension: Stable Blood pressure labile. Continue monitor blood pressure Continue Midodrine. Mild obstructive uropathy: Resolved. Appreciate urology recommendations. Suprapubic catheter in place, last changed 07/05/16. Abdominal pelvis CT 03/06/16 shows resolution of right sided hydronephrosis. Recurrent urinary tract infection Replaced Soto 07/05/16, continue changed monthly Patient with urine cultures with different organisms, likely secondary to suprapubic catheter, continue monitor and treat only if symptomatic Elevated BUN, stable Continue fluid flushes via PEG tube to avoid dehydration. Stage I decubitus ulcer, sacral skin tear: Continue wound care. Palliative care evaluation According to palliative care notes. Family wishes aggressive management, they are expecting him to improve, go to a rehabilitation facility and then improve enough to go home. They are deferring hospice. DVT prophylaxis: SCDs. Avoid chemical prophylaxis secondary to GI bleed. No change present treatment plan Discharge Planning Discharge planning per case management. Case management last documentation indicates that they're requesting [facility] to evaluate for placement Jaguar Walker Jul 18, 2016 14:19
[2016-07-18 20:00] VITALS: BP 121/89; PULSE 88; RESP 14; TEMP 97.2; O2SAT 98
[2016-07-18] MEDS: MIRTAZAPINE 15 MG TAB PEG SCH (22:25)
[2016-07-19] MEDS: MIDODRINE 5 MG TAB PO SCH ×3 (06:00→17:00)
[2016-07-19] MEDS: LANSOPRAZOLE SOLUTAB 30 MG TAB PEG SCH (07:59)
[2016-07-19] MEDS: FREE WATER G-TUBE SCH (07:59)
[2016-07-19] MEDS: ALLOPURINOL 100 MG TAB PEG SCH (07:59)
[2016-07-19] MEDS: CLOTRIMAZOLE 1% CREAM 15 GM TOPICAL SCH ×2 (07:59→21:58)
[2016-07-19 08:00] VITALS: BP 110/66; PULSE 82; RESP 18; TEMP 98.1; O2SAT 95
--- NOTE | 2016-07-19 11:41 | HHI.PR ---
Subjective Remarks Patient seen and examined today. Patient denies any new complaints. No change in clinical status. Objective Vitals Vital Signs Date Time Temp Pulse Resp B/P Pulse Ox O2 Delivery O2 Flow Rate FiO2 07/19/16 08:00 98.1 82 18 110/66 95 07/18/16 20:00 97.2 88 14 121/89 98 I/O 07/18/16 07/18/16 07/18/16 07/19/16 07/19/16 07/19/16 07:00 15:00 23:00 07:00 15:00 23:00 Intake Total 460 ml Output Total 200 ml 450 ml 250 ml 250 ml Balance -200 ml -450 ml -250 ml 210 ml Tube Feeding 340 ml Other 120 ml Output Urine Total 200 ml 450 ml 250 ml 250 ml # Bowel Movements 1 1 0 2 Objective Remarks GENERAL: Well-developed, well-nourished, in no acute distress. Patient awake and alert HEENT: Head is normocephalic without any lesions or masses noted. Facial features are symmetric. Eyes: Extraocular muscles are intact. Conjunctivae were clear. NECK: Trachea midline no deviation. CARDIAC: Regular rhythm, regular rate. S1/S2 are heard. No murmurs gallops or rubs. LUNGS: Clear to auscultation bilaterally. No wheeze, rhonchi or rales. No use of accessory muscles on inspiration or expiration. ABDOMEN: Soft, nontender. Nondistended. Bowel sounds heard in all 4 quadrants. No organomegaly or masses. Negative rebound, negative guarding, suprapubic catheter in place, PEG tube noted EXTREMITIES: No edema, pulses are equal bilaterally. No cyanosis or clubbing NEUROLOGY: Mood and affect appear appropriate. Cranial nerves II through XII grossly intact. Moving all extremities SKIN: Patient's back has skin breakdown on his back and sacral area. Appears to the clinic heat rash which is developing worse because patient refuses to get out of bed. Procedures None Urinary Catheter: Yes Assessment to: Continue Soto insert reason: Obstruction/Retention Date of Insertion: Jul 05, 2016 Vascular Central Line Catheter: No A/P Assessment and Plan Dementia with inappropriate behavior, mood disorder improved Patient has been hospitalized for similar events in 2015 Consulted psychiatry for further evaluation, who indicated that this is a frontal lobe dementia Risperdal discontinued at family's request Continue Remeron Parkinson's disease: Patient has dementia and resting tremor. Chronic, stable. Weakness: Continue physical therapy Nursing staff to get patient up out of bed at least 3 times daily GI bleed with presenting of Upper GI bleed, patient with intermittent rectal bleeding: Resolved Hemoglobin continues to remain stable GI was following and reevaluated on 05/04/16 Presumed hemorrhoids, continue Anusol HC for 2 weeks Continue PPI. Protein calorie malnutrition: Improving Consulted dietitian who indicated that patient may be converted to bolus feeding Jevity 1.5, 6 cans per day. 1.5 cans that 0800 and 2000, 1 can at 1100, 1400, 1700 Prealbumin level 24 Hypotension with episodes of hypertension: Stable Blood pressure labile. Continue monitor blood pressure Continue Midodrine. Mild obstructive uropathy: Resolved. Appreciate urology recommendations. Suprapubic catheter in place, last changed 07/05/16. Abdominal pelvis CT 03/06/16 shows resolution of right sided hydronephrosis. Recurrent urinary tract infection Replaced Soto 07/05/16, continue changed monthly Patient with urine cultures with different organisms, likely secondary to suprapubic catheter, continue monitor and treat only if symptomatic Elevated BUN, stable Continue fluid flushes via PEG tube to avoid dehydration. Stage I decubitus ulcer, sacral skin tear: Continue wound care. Palliative care evaluation According to palliative care notes. Family wishes aggressive management, they are expecting him to improve, go to a rehabilitation facility and then improve enough to go home. They are deferring hospice. DVT prophylaxis: SCDs. Avoid chemical prophylaxis secondary to GI bleed. No change present treatment plan Discharge Planning Discharge planning per case management. Case management last documentation indicates that they're requesting [facility] to evaluate for placement Jaguar Walker Jul 19, 2016 11:41
[2016-07-19 20:00] VITALS: BP 111/74; PULSE 88; RESP 14; TEMP 95.8; O2SAT 97
[2016-07-19] MEDS: MIRTAZAPINE 15 MG TAB PEG SCH (21:58)
[2016-07-20] MEDS: MIDODRINE 5 MG TAB PO SCH ×3 (06:29→17:19)
[2016-07-20] MEDS: ALLOPURINOL 100 MG TAB PEG SCH (07:35)
[2016-07-20] MEDS: FREE WATER G-TUBE SCH (07:35)
[2016-07-20] MEDS: LANSOPRAZOLE SOLUTAB 30 MG TAB PEG SCH (07:35)
[2016-07-20] MEDS: CLOTRIMAZOLE 1% CREAM 15 GM TOPICAL SCH ×2 (07:35→20:39)
[2016-07-20 08:00] VITALS: BP 123/84; PULSE 81; RESP 19; TEMP 96.9; O2SAT 98
--- NOTE | 2016-07-20 13:46 | HHI.PR ---
Subjective Remarks Patient seen and examined today. Patient denies any new complaints. No change in clinical status. Patient had PEG tube malfunction yesterday, however was corrected. Objective Vitals Vital Signs Date Time Temp Pulse Resp B/P Pulse Ox O2 Delivery O2 Flow Rate FiO2 07/20/16 08:00 96.9 81 19 123/84 98 07/19/16 20:00 95.8 88 14 111/74 97 I/O 07/19/16 07/19/16 07/19/16 07/20/16 07/20/16 07/20/16 07:00 15:00 23:00 07:00 15:00 23:00 Intake Total 460 ml 1020 ml 480 ml Output Total 250 ml 525 ml 425 ml 250 ml Balance 210 ml 495 ml -425 ml 230 ml Tube Feeding 340 ml 1020 ml 360 ml Other 120 ml 120 ml Output Urine Total 250 ml 525 ml 425 ml 250 ml # Bowel Movements 2 2 1 Objective Remarks GENERAL: Well-developed, well-nourished, in no acute distress. Patient awake and alert HEENT: Head is normocephalic without any lesions or masses noted. Facial features are symmetric. Eyes: Extraocular muscles are intact. Conjunctivae were clear. NECK: Trachea midline no deviation. CARDIAC: Regular rhythm, regular rate. S1/S2 are heard. No murmurs gallops or rubs. LUNGS: Clear to auscultation bilaterally. No wheeze, rhonchi or rales. No use of accessory muscles on inspiration or expiration. ABDOMEN: Soft, nontender. Nondistended. Bowel sounds heard in all 4 quadrants. No organomegaly or masses. Negative rebound, negative guarding, suprapubic catheter in place, PEG tube noted EXTREMITIES: No edema, pulses are equal bilaterally. No cyanosis or clubbing NEUROLOGY: Mood and affect appear appropriate. Cranial nerves II through XII grossly intact. Moving all extremities SKIN: Patient's back has skin breakdown on his back and sacral area. Appears to the clinic heat rash which is developing worse because patient refuses to get out of bed. Procedures None Urinary Catheter: Yes Assessment to: Continue Soto insert reason: Obstruction/Retention Date of Insertion: Jul 05, 2016 Vascular Central Line Catheter: No A/P Assessment and Plan Dementia with inappropriate behavior, mood disorder improved Patient has been hospitalized for similar events in 2014 Consulted psychiatry for further evaluation, who indicated that this is a frontal lobe dementia Risperdal discontinued at family's request Continue Remeron Parkinson's disease: Patient has dementia and resting tremor. Chronic, stable. Weakness: Continue physical therapy Nursing staff to get patient up out of bed at least 3 times daily GI bleed with presenting of Upper GI bleed, patient with intermittent rectal bleeding: Resolved Hemoglobin continues to remain stable GI was following and reevaluated on 05/04/16 Presumed hemorrhoids, continue Anusol HC for 2 weeks Continue PPI. Protein calorie malnutrition: Improving Consulted dietitian who indicated that patient may be converted to bolus feeding Jevity 1.5, 6 cans per day. 1.5 cans that 0800 and 2000, 1 can at 1100, 1400, 1700 Prealbumin level 24 Hypotension with episodes of hypertension: Stable Blood pressure labile. Continue monitor blood pressure Continue Midodrine. Mild obstructive uropathy: Resolved. Appreciate urology recommendations. Suprapubic catheter in place, last changed 07/05/16. Abdominal pelvis CT 03/06/16 shows resolution of right sided hydronephrosis. Recurrent urinary tract infection Replaced Soto 07/05/16, continue changed monthly Patient with urine cultures with different organisms, likely secondary to suprapubic catheter, continue monitor and treat only if symptomatic Elevated BUN, stable Continue fluid flushes via PEG tube to avoid dehydration. Stage I decubitus ulcer, sacral skin tear: Continue wound care. Palliative care evaluation According to palliative care notes. Family wishes aggressive management, they are expecting him to improve, go to a rehabilitation facility and then improve enough to go home. They are deferring hospice. DVT prophylaxis: SCDs. Avoid chemical prophylaxis secondary to GI bleed. No change present treatment plan Discharge Planning Discharge planning per case management. Case management last documentation indicates that they're [facility] for [facility] Jaguar Walker Jul 20, 2016 13:46
[2016-07-20 20:00] VITALS: BP 101/69; PULSE 90; RESP 22; TEMP 98.2; O2SAT 98
[2016-07-20] MEDS: MIRTAZAPINE 15 MG TAB PEG SCH (20:39)
[2016-07-21] MEDS: MIDODRINE 5 MG TAB PO SCH ×3 (05:30→17:20)
[2016-07-21 08:00] VITALS: BP 116/76; PULSE 79; RESP 19; TEMP 97.7; O2SAT 98
[2016-07-21] MEDS: FREE WATER G-TUBE SCH (08:37)
[2016-07-21] MEDS: LANSOPRAZOLE SOLUTAB 30 MG TAB PEG SCH (08:37)
[2016-07-21] MEDS: CLOTRIMAZOLE 1% CREAM 15 GM TOPICAL SCH ×2 (08:37→21:00)
[2016-07-21] MEDS: ALLOPURINOL 100 MG TAB PEG SCH (08:37)
--- NOTE | 2016-07-21 11:25 | HHI.PR ---
Subjective Remarks Patient seen and examined today. Nursing staff indicates that patient has developed a mild skin tear Objective Vitals Vital Signs Date Time Temp Pulse Resp B/P Pulse Ox O2 Delivery O2 Flow Rate FiO2 07/21/16 08:00 97.7 79 19 116/76 98 07/20/16 20:00 98.2 90 22 101/69 98 I/O 07/20/16 07/20/16 07/20/16 07/21/16 07/21/16 07/21/16 07:00 15:00 23:00 07:00 15:00 23:00 Intake Total 480 ml 0 ml 480 ml 50 ml Output Total 250 ml 450 ml 100 ml 200 ml Balance 230 ml -450 ml 380 ml -150 ml Intake Oral 0 ml 0 ml Tube Feeding 360 ml 360 ml Other 120 ml 120 ml 50 ml Output Urine Total 250 ml 450 ml 100 ml 200 ml # Bowel Movements 1 2 1 Objective Remarks GENERAL: Well-developed, well-nourished, in no acute distress. Patient awake and alert HEENT: Head is normocephalic without any lesions or masses noted. Facial features are symmetric. Eyes: Extraocular muscles are intact. Conjunctivae were clear. NECK: Trachea midline no deviation. CARDIAC: Regular rhythm, regular rate. S1/S2 are heard. No murmurs gallops or rubs. LUNGS: Clear to auscultation bilaterally. No wheeze, rhonchi or rales. No use of accessory muscles on inspiration or expiration. ABDOMEN: Soft, nontender. Nondistended. Bowel sounds heard in all 4 quadrants. No organomegaly or masses. Negative rebound, negative guarding, suprapubic catheter in place, PEG tube noted EXTREMITIES: No edema, pulses are equal bilaterally. No cyanosis or clubbing NEUROLOGY: Mood and affect appear appropriate. Cranial nerves II through XII grossly intact. Moving all extremities SKIN: Patient's back has skin breakdown on his back and sacral area. Appears to the clinic heat rash which is developing worse because patient refuses to get out of bed. Procedures None Urinary Catheter: Yes Assessment to: Continue Soto insert reason: Obstruction/Retention Date of Insertion: Jul 05, 2016 Vascular Central Line Catheter: No A/P Assessment and Plan Dementia with inappropriate behavior, mood disorder improved Patient has been hospitalized for similar events in 2015 Consulted psychiatry for further evaluation, who indicated that this is a frontal lobe dementia Risperdal discontinued at family's request Continue Remeron Parkinson's disease: Patient has dementia and resting tremor. Chronic, stable. Weakness: Continue physical therapy Nursing staff to get patient up out of bed at least 3 times daily GI bleed with presenting of Upper GI bleed, patient with intermittent rectal bleeding: Resolved Hemoglobin continues to remain stable GI was following and reevaluated on 05/04/16 Presumed hemorrhoids, continue Anusol HC for 2 weeks Continue PPI. Protein calorie malnutrition: Improving Consulted dietitian who indicated that patient may be converted to bolus feeding Jevity 1.5, 6 cans per day. 1.5 cans that 0800 and 2000, 1 can at 1100, 1400, 1700 Prealbumin level 24 Hypotension with episodes of hypertension: Stable Blood pressure labile. Continue monitor blood pressure Continue Midodrine. Mild obstructive uropathy: Resolved. Appreciate urology recommendations. Suprapubic catheter in place, last changed 07/05/16. Abdominal pelvis CT 03/06/16 shows resolution of right sided hydronephrosis. Recurrent urinary tract infection Replaced Soto 07/05/16, continue changed monthly Patient with urine cultures with different organisms, likely secondary to suprapubic catheter, continue monitor and treat only if symptomatic Elevated BUN, stable Continue fluid flushes via PEG tube to avoid dehydration. Stage I decubitus ulcer, sacral skin tear: Continue wound care. Palliative care evaluation According to palliative care notes. Family wishes aggressive management, they are expecting him to improve, go to a rehabilitation facility and then improve enough to go home. They are deferring hospice. DVT prophylaxis: SCDs. Avoid chemical prophylaxis secondary to GI bleed. No change present treatment plan Discharge Planning Discharge planning per case management. Case management last documentation indicates that they're [facility] for [facility] Jaguar Walker Jul 21, 2016 11:25
[2016-07-21 20:00] VITALS: BP 122/80; PULSE 73; RESP 20; TEMP 97.7; O2SAT 97
[2016-07-21] MEDS: MIRTAZAPINE 15 MG TAB PEG SCH (21:55)
[2016-07-22] MEDS: MIDODRINE 5 MG TAB PO SCH ×3 (06:40→17:41)
[2016-07-22 08:00] VITALS: BP 112/65; PULSE 80; RESP 18; TEMP 98; O2SAT 94
[2016-07-22] MEDS: FREE WATER G-TUBE SCH (09:00)
[2016-07-22] MEDS: LANSOPRAZOLE SOLUTAB 30 MG TAB PEG SCH (09:43)
[2016-07-22] MEDS: ALLOPURINOL 100 MG TAB PEG SCH (09:43)
[2016-07-22] MEDS: CLOTRIMAZOLE 1% CREAM 15 GM TOPICAL SCH ×2 (09:51→21:09)
--- NOTE | 2016-07-22 10:34 | HHI.PR ---
Subjective Remarks Follow-up for patient with dementia. Patient seen and examined. No acute complaints. No change in clinical status. Objective Vitals Vital Signs Date Time Temp Pulse Resp B/P Pulse Ox O2 Delivery O2 Flow Rate FiO2 07/21/16 20:00 97.7 73 20 122/80 97 I/O 07/21/16 07/21/16 07/21/16 07/22/16 07/22/16 07/22/16 07:00 15:00 23:00 07:00 15:00 23:00 Intake Total 50 ml 0 ml 0 ml Output Total 200 ml 150 ml 150 ml 250 ml Balance -150 ml -150 ml -150 ml -250 ml Intake Oral 0 ml 0 ml Other 50 ml Output Urine Total 200 ml 150 ml 150 ml 250 ml # Bowel Movements 1 3 2 2 Objective Remarks GENERAL: Well developed disheveled male in no apparent distress. Patient is awake and alert. CARDIOVASCULAR: Regular rate and rhythm. RESPIRATORY: No accessory muscle use. CTAB. GASTROINTESTINAL: Abdomen soft, nontender, nondistended. NEURO: Awake and alert. PSYCHIATRIC: Does not speak. Nods to questions. Procedures None Urinary Catheter: Yes, suprapubic Assessment to: Continue Soto insert reason: Prolonged Immobilization Date of Insertion: Jun 17, 2016 Vascular Central Line Catheter: No Procedures None Medications and IVs Current Medications Medications (Trade) Dose Ordered Sig/Gayathri Route Start Time Stop Time Status Last Admin (Tylenol) 650 mg Q4H PRN PO 01/20/16 10:15 07/09/16 08:02 (Zyloprim) 100 mg DAILY PEG 01/21/16 09:00 07/22/16 09:43 (Remeron) 7.5 mg HS PEG 01/20/16 21:00 07/21/16 21:55 (Pill Splitter) 1 ea UNSCH PRN OTHER 01/20/16 14:15 02/08/16 20:56 (Imodium) 2 mg Q6H PRN PO 01/21/16 12:45 04/16/16 20:29 (Proamatine) 10 mg TID@,,17 PO 02/18/16 07:00 07/22/16 06:40 (Prevacid Odt) 30 mg DAILY PEG 02/28/16 09:00 07/22/16 09:43 (Dulcolax Supp) 10 mg DAILY PRN MO 03/07/16 10:15 (Free Water) 200 ml DAILY G-TUBE 06/01/16 14:00 07/22/16 09:00 (Lotrimin 1% Cream) 1 applic Q12HR TOPICAL 06/29/16 21:00 07/22/16 09:51 Date of Insertion: Jul 05, 2016 A/P Problem List: (1) Prerenal azotemia ICD Code: R79.89 Status: Acute Assessment and Plan Dementia with inappropriate behavior, mood disorder improved Patient has not had any recurrent inappropriate behavior since increasing the Risperdal Patient has been hospitalized for similar events in 2014 Consulted psychiatry for further evaluation, who indicated that this is a frontal lobe dementia Risperdal discontinued at family's request Continue Remeron Parkinson's disease: Patient has dementia and resting tremor. Chronic, stable. Weakness: Continue physical therapy Nursing staff to get patient up out of bed at least 3 times daily GI bleed with presenting of Upper GI bleed, patient with intermittent rectal bleeding: Resolved Hemoglobin continues to remain stable GI was following and reevaluated on 05/04/16 Presumed hemorrhoids, continue Anusol HC for 2 weeks Continue PPI. Protein calorie malnutrition: Improving Consulted dietitian who indicated that patient may be converted to bolus feeding Jevity 1.5, 6 cans per day. 1.5 cans that 0800 and 2000, 1 can at 1100, 1400, 1700 Prealbumin level 24 Hypotension with episodes of hypertension: Stable Blood pressure labile. Continue monitor blood pressure Continue Midodrine. Mild obstructive uropathy: Resolved. Appreciate urology recommendations. Suprapubic catheter in place, last changed 07/05/16. Abdominal pelvis CT 03/06/16 shows resolution of right sided hydronephrosis. Recurrent urinary tract infection Replaced Soto 07/05/16, continue changed monthly Patient with urine cultures with different organisms, likely secondary to suprapubic catheter, continue monitor and treat only if symptomatic Elevated BUN, stable Continue fluid flushes via PEG tube to avoid dehydration. Stage I decubitus ulcer, sacral skin tear: Continue wound care. Palliative care evaluation According to palliative care notes. Family wishes aggressive management, they are expecting him to improve, go to a rehabilitation facility and then improve enough to go home. They are deferring hospice. DVT prophylaxis: SCDs. Avoid chemical prophylaxis secondary to GI bleed. No change present treatment plan Discharge Planning Case management has requested [facility] to evaluate patient for possible placement on 06/12/16. 07/03: Discussed with pillowcase cutter Emre Al. Several other facilities have been contacted but no acceptance thus far. No case management updated note since 06/12. Bettina Gomez Jul 22, 2016 10:34
[2016-07-22 20:00] VITALS: BP 114/69; PULSE 74; RESP 16; TEMP 96; O2SAT 97
[2016-07-22] MEDS: MIRTAZAPINE 15 MG TAB PEG SCH (21:09)
[2016-07-23] MEDS: MIDODRINE 5 MG TAB PO SCH ×3 (06:19→17:18)
[2016-07-23 08:00] VITALS: BP 110/62; PULSE 88; RESP 18; TEMP 98; O2SAT 96
[2016-07-23] MEDS: ALLOPURINOL 100 MG TAB PEG SCH (08:54)
[2016-07-23] MEDS: LANSOPRAZOLE SOLUTAB 30 MG TAB PEG SCH (08:54)
[2016-07-23] MEDS: CLOTRIMAZOLE 1% CREAM 15 GM TOPICAL SCH ×2 (08:54→21:04)
[2016-07-23] MEDS: FREE WATER G-TUBE SCH (08:55)
--- NOTE | 2016-07-23 13:07 | HHI.PR ---
Subjective Remarks Follow-up for dementia. No change in clinical status. Objective Vitals Vital Signs Date Time Temp Pulse Resp B/P Pulse Ox O2 Delivery O2 Flow Rate FiO2 07/23/16 08:00 98.0 88 18 110/62 96 07/22/16 20:00 96.0 74 16 114/69 97 I/O 07/22/16 07/22/16 07/22/16 07/23/16 07/23/16 07/23/16 07:00 15:00 23:00 07:00 15:00 23:00 Intake Total 1560 ml 620 ml Output Total 250 ml 351 ml Balance -250 ml 1209 ml 620 ml Tube Feeding 1080 ml 360 ml Other 480 ml 260 ml Output Urine Total 250 ml 350 ml Stool Total 1 ml # Bowel Movements 2 1 Objective Remarks GENERAL: Well developed male in no apparent distress sitting in recliner in day room. SKIN: Tiny pustules to R side of face. No vesicles. CARDIOVASCULAR: Regular rate and rhythm. RESPIRATORY: No accessory muscle use. CTAB. GASTROINTESTINAL: Abdomen soft, nontender, nondistended. NEURO: Awake and alert. Does not speak aloud. Procedures None Urinary Catheter: Yes Assessment to: Continue Soto insert reason: Prolonged Immobilization Date of Insertion: Jul 05, 2016 Vascular Central Line Catheter: No A/P Problem List: (1) Prerenal azotemia ICD Code: R79.89 Status: Acute Assessment and Plan Upper GI bleeding: Resolved with recurrent rectal bleeding. Hemoglobin stable. GI reevaluated patient on 05/04. Presumed hemorrhoids, s/p Anusol HC for total of 2 weeks. Continue PPI. Protein calorie malnutrition: Improving Consulted dietitian who indicated that patient may be converted to bolus feeding Jevity 1.5 w/ bolus 1.5 cans(360ml) @ 0800 and 2000 and 1-can(240ml) @ 1100, 1400 and 1700. Free Water Flush 100ml before and after each bolus feeding. Ensure Enlive tid and chocolate pudding tid Prealbumin level 25. Patient desired to eat and speech therapy advised puree diet, thin liquids, but patient has not been eating. Medical Imaging Tech suggested considering appetite stimulant. This was discussed with attending, but we do not believe this would be beneficial for patient and would add unnecessary risk to the patient. Will continue with tube feeds only. Dementia with inappropriate behavior, mood disorder improved Patient had inappropriate behavior which is resolved now. He has been very appropriate for a long time now. Patient has been hospitalized for similar events in 2015 Consulted psychiatry for further evaluation, who indicated that this is a frontal lobe dementia Risperdal 0.25 mg during the day, Risperdal 0.5 mg at night. Risperdal was discontinued per POA request. Continue Remeron Psychiatry was reconsulted and is ok with discontinuation of Risperdal. Probable seborrheic dermatitis: Flaky skin to the face and neck. -Improved s/p one time dose of Ketoconazole 2% shampoo. -Monitor need for further treatments. Chalazion: Persistent nodule R upper eyelid. There is no evidence of preseptal cellulitis. -Warm compresses were applied but it was greater than 2 weeks without significant improvement. -Ophthalmology was consulted and evaluated patient on 03/26. S/p warm compresses and Tobradex 4 times a day OD x 2 weeks. Patient was intermittently compliant with eyedrops. -No worsening. Follow-up outpatient. Hypotension: Blood pressure labile. Continue Midodrine. Patient on max dose. Increase free water flushes as needed. Pre-renal azotemia: BUN stable at 21. Continue free water flushes Stage I decubitus ulcer, sacral skin tear: Continue wound care. Frequent turning of patient. Candidal infection: buttocks affected with satellite lesions to the perineum. -S/p Nystatin -Continue Clotrimazole -07/23: I spoke with wound care nurse who states that fungal rash to buttocks is improving but is now over the patient's back. Apply clotrimazole to back and buttocks. Mild obstructive uropathy: Resolved. Appreciate urology recommendations. Suprapubic catheter to be changed monthly; it was last changed on 07/05/16. Abdominal pelvis CT 03/06/16 shows resolution of right sided hydronephrosis. Urinary tract infection: Urine culture positive for Proteus mirabilis and GBS on 01/20. Patient completed course of antibiotics. Abdominal pelvis CT 03/06 shows decompressed bladder with circumferential bladder wall thickening and intraluminal air possibly indicating cystitis, but the patient had been afebrile with normal WBC count. Urine culture 05/31 with Serratia marcescens, Pseudomonas, and Enterococcus faecalis. Patient was treated with ceftriaxone. Repeat urine culture on 06/04 only reveals contaminants. Weakness: Continue physical therapy Nursing staff to get patient up out of bed at least 3 times daily Palliative care evaluation According to palliative care notes family wishes aggressive management, they are expecting him to improve, go to a rehabilitation facility and then improve enough to go home. They are declining hospice. DVT prophylaxis: SCDs. Avoid chemical prophylaxis secondary to GI bleed. Discharge Planning CM requested [facility] to evaluate for placement. Madeline Ortez Jul 23, 2016 13:07
[2016-07-23 20:00] VITALS: BP 98/61; PULSE 65; RESP 14; TEMP 95.9; O2SAT 96
[2016-07-23] MEDS: MIRTAZAPINE 15 MG TAB PEG SCH (20:57)
[2016-07-24] MEDS: MIDODRINE 5 MG TAB PO SCH ×3 (06:14→17:00)
[2016-07-24] MEDS: LANSOPRAZOLE SOLUTAB 30 MG TAB PEG SCH (07:37)
[2016-07-24] MEDS: ALLOPURINOL 100 MG TAB PEG SCH (07:37)
[2016-07-24] MEDS: CLOTRIMAZOLE 1% CREAM 15 GM TOPICAL SCH ×2 (07:37→20:10)
[2016-07-24] MEDS: FREE WATER G-TUBE SCH (07:37)
[2016-07-24 08:00] VITALS: BP 118/79; PULSE 73; RESP 18; TEMP 97.2; O2SAT 95
--- NOTE | 2016-07-24 14:54 | HHI.PR ---
Subjective Remarks Follow-up for dementia. No acute complaints. No change in clinical status. Objective Vitals Vital Signs Date Time Temp Pulse Resp B/P Pulse Ox O2 Delivery O2 Flow Rate FiO2 07/24/16 08:00 97.2 73 18 118/79 95 07/23/16 20:00 95.9 65 14 98/61 96 I/O 07/23/16 07/23/16 07/23/16 07/24/16 07/24/16 07/24/16 07:00 15:00 23:00 07:00 15:00 23:00 Intake Total 620 ml 1280 ml 520 ml 160 ml Output Total 430 ml 125 ml 200 ml 300 ml Balance 620 ml 850 ml 395 ml -40 ml -300 ml Tube Feeding 360 ml 1080 ml 360 ml Other 260 ml 200 ml 160 ml 160 ml Output Urine Total 425 ml 125 ml 200 ml 300 ml Gastric Drainage Total 5 ml # Bowel Movements 3 1 0 2 Objective Remarks GENERAL: Well developed male in no apparent distress. CARDIOVASCULAR: Regular rate and rhythm. RESPIRATORY: No accessory muscle use. CTAB. GASTROINTESTINAL: Normoactive bowel sounds. Abdomen soft, nontender, nondistended. NEURO: Awake and alert. Does not speak aloud. Procedures None Urinary Catheter: Yes Assessment to: Continue Soto insert reason: Prolonged Immobilization Date of Insertion: Jul 05, 2016 Vascular Central Line Catheter: No A/P Problem List: (1) Prerenal azotemia ICD Code: R79.89 Status: Acute Assessment and Plan Upper GI bleeding: Resolved with recurrent rectal bleeding. Hemoglobin stable. GI reevaluated patient on 05/04. Presumed hemorrhoids, s/p Anusol HC for total of 2 weeks. Continue PPI. Protein calorie malnutrition: Improving Consulted dietitian who indicated that patient may be converted to bolus feeding Jevity 1.5 w/ bolus 1.5 cans(360ml) @ 0800 and 2000 and 1-can(240ml) @ 1100, 1400 and 1700. Free Water Flush 100ml before and after each bolus feeding. Ensure Enlive tid and chocolate pudding tid Prealbumin level 25. Patient desired to eat and speech therapy advised puree diet, thin liquids, but patient has not been eating. Skein Bleacher suggested considering appetite stimulant. This was discussed with attending, but we do not believe this would be beneficial for patient and would add unnecessary risk to the patient. Will continue with tube feeds only. Dementia with inappropriate behavior, mood disorder improved Patient had inappropriate behavior which is resolved now. He has been very appropriate for a long time now. Patient has been hospitalized for similar events in 2014 Consulted psychiatry for further evaluation, who indicated that this is a frontal lobe dementia Risperdal 0.25 mg during the day, Risperdal 0.5 mg at night. Risperdal was discontinued per POA request. Continue Remeron Psychiatry was reconsulted and is ok with discontinuation of Risperdal. Probable seborrheic dermatitis: Flaky skin to the face and neck. -Improved s/p one time dose of Ketoconazole 2% shampoo. -Monitor need for further treatments. Chalazion: Persistent nodule R upper eyelid. There is no evidence of preseptal cellulitis. -Warm compresses were applied but it was greater than 2 weeks without significant improvement. -Ophthalmology was consulted and evaluated patient on 03/26. S/p warm compresses and Tobradex 4 times a day OD x 2 weeks. Patient was intermittently compliant with eyedrops. -No worsening. Follow-up outpatient. Hypotension: Blood pressure labile. Continue Midodrine. Patient on max dose. Increase free water flushes as needed. Pre-renal azotemia: BUN stable at 21. Continue free water flushes Stage I decubitus ulcer, sacral skin tear: Continue wound care. Frequent turning of patient. Candidal infection: buttocks affected with satellite lesions to the perineum. -S/p Nystatin -Continue Clotrimazole -07/23: I spoke with wound care nurse who states that fungal rash to buttocks is improving but is now over the patient's back. Apply clotrimazole to back and buttocks. Mild obstructive uropathy: Resolved. Appreciate urology recommendations. Suprapubic catheter to be changed monthly; it was last changed on 07/05/16. Abdominal pelvis CT 03/06/16 shows resolution of right sided hydronephrosis. Urinary tract infection: Urine culture positive for Proteus mirabilis and GBS on 01/20. Patient completed course of antibiotics. Abdominal pelvis CT 03/06 shows decompressed bladder with circumferential bladder wall thickening and intraluminal air possibly indicating cystitis, but the patient had been afebrile with normal WBC count. Urine culture 05/31 with Serratia marcescens, Pseudomonas, and Enterococcus faecalis. Patient was treated with ceftriaxone. Repeat urine culture on 06/04 only reveals contaminants. Weakness: Continue physical therapy Nursing staff to get patient up out of bed at least 3 times daily Palliative care evaluation According to palliative care notes family wishes aggressive management, they are expecting him to improve, go to a rehabilitation facility and then improve enough to go home. They are declining hospice. DVT prophylaxis: SCDs. Avoid chemical prophylaxis secondary to GI bleed. Discharge Planning CM requested [facility] to evaluate for placement. Madeline Ortez Jul 24, 2016 14:53
[2016-07-24 20:00] VITALS: BP 117/79; PULSE 75; RESP 20; TEMP 97.1; O2SAT 75
[2016-07-24] MEDS: MIRTAZAPINE 15 MG TAB PEG SCH (20:10)
[2016-07-25] MEDS: MIDODRINE 5 MG TAB PO SCH ×3 (06:24→18:26)
[2016-07-25 08:00] VITALS: BP 123/80; PULSE 66; RESP 17; TEMP 97.4; O2SAT 97
[2016-07-25] MEDS: CLOTRIMAZOLE 1% CREAM 15 GM TOPICAL SCH ×2 (09:00→21:32)
[2016-07-25] MEDS: FREE WATER G-TUBE SCH (09:00)
[2016-07-25] MEDS: ALLOPURINOL 100 MG TAB PEG SCH (09:21)
[2016-07-25] MEDS: LANSOPRAZOLE SOLUTAB 30 MG TAB PEG SCH (09:21)
--- NOTE | 2016-07-25 18:33 | HHI.PR ---
Subjective Remarks Follow-up for dementia. No acute complaints. No change in clinical status. Objective Vitals Vital Signs Date Time Temp Pulse Resp B/P Pulse Ox O2 Delivery O2 Flow Rate FiO2 07/25/16 08:00 97.4 66 17 123/80 97 07/24/16 20:00 97.1 75 20 117/79 75 I/O 07/24/16 07/24/16 07/24/16 07/25/16 07/25/16 07/25/16 07:00 15:00 23:00 07:00 15:00 23:00 Intake Total 160 ml 0 ml Output Total 200 ml 300 ml 450.00 ml 350.00 ml Balance -40 ml -300 ml -450.00 ml -350.00 ml 0 ml Intake Oral 0 ml Other 160 ml Output Urine Total 200 ml 300 ml Blood Draw 450.00 ml 350.00 ml # Bowel Movements 0 2 1 1 Objective Remarks GENERAL: Well developed male in no apparent distress. CARDIOVASCULAR: Regular rate and rhythm. RESPIRATORY: No accessory muscle use. CTAB. GASTROINTESTINAL: Abdomen soft, nontender, nondistended. NEURO: Awake and alert. Does not speak aloud. Procedures None Urinary Catheter: No Date of Insertion: Jul 05, 2016 Vascular Central Line Catheter: No A/P Problem List: (1) Prerenal azotemia ICD Code: R79.89 Status: Acute Assessment and Plan Upper GI bleeding: Resolved with recurrent rectal bleeding. Hemoglobin stable. GI reevaluated patient on 05/04. Presumed hemorrhoids, s/p Anusol HC for total of 2 weeks. Continue PPI. Protein calorie malnutrition: Improving Consulted dietitian who indicated that patient may be converted to bolus feeding Jevity 1.5 w/ bolus 1.5 cans(360ml) @ 0800 and 2000 and 1-can(240ml) @ 1100, 1400 and 1700. Free Water Flush 100ml before and after each bolus feeding. Ensure Enlive tid and chocolate pudding tid Prealbumin level 25. Patient desired to eat and speech therapy advised puree diet, thin liquids, but patient has not been eating. Buyer Renter suggested considering appetite stimulant. This was discussed with attending, but we do not believe this would be beneficial for patient and would add unnecessary risk to the patient. Will continue with tube feeds only. Dementia with inappropriate behavior, mood disorder improved Patient had inappropriate behavior which is resolved now. He has been very appropriate for a long time now. Patient has been hospitalized for similar events in 2015 Consulted psychiatry for further evaluation, who indicated that this is a frontal lobe dementia Risperdal 0.25 mg during the day, Risperdal 0.5 mg at night. Risperdal was discontinued per POA request. Continue Remeron Psychiatry was reconsulted and is ok with discontinuation of Risperdal. Probable seborrheic dermatitis: Flaky skin to the face and neck. -Improved s/p one time dose of Ketoconazole 2% shampoo. -Monitor need for further treatments. Chalazion: Persistent nodule R upper eyelid. There is no evidence of preseptal cellulitis. -Warm compresses were applied but it was greater than 2 weeks without significant improvement. -Ophthalmology was consulted and evaluated patient on 03/26. S/p warm compresses and Tobradex 4 times a day OD x 2 weeks. Patient was intermittently compliant with eyedrops. -No worsening. Follow-up outpatient. Hypotension: Blood pressure labile. Continue Midodrine. Patient on max dose. Increase free water flushes as needed. Pre-renal azotemia: BUN stable at 21. Continue free water flushes Stage I decubitus ulcer, sacral skin tear: Continue wound care. Frequent turning of patient. Candidal infection: buttocks affected with satellite lesions to the perineum. -S/p Nystatin -Continue Clotrimazole -07/23: I spoke with wound care nurse who states that fungal rash to buttocks is improving but is now over the patient's back. Apply clotrimazole to back and buttocks. Mild obstructive uropathy: Resolved. Appreciate urology recommendations. Suprapubic catheter to be changed monthly; it was last changed on 07/05/16. Abdominal pelvis CT 03/06/16 shows resolution of right sided hydronephrosis. Urinary tract infection: Urine culture positive for Proteus mirabilis and GBS on 01/20. Patient completed course of antibiotics. Abdominal pelvis CT 03/06 shows decompressed bladder with circumferential bladder wall thickening and intraluminal air possibly indicating cystitis, but the patient had been afebrile with normal WBC count. Urine culture 05/31 with Serratia marcescens, Pseudomonas, and Enterococcus faecalis. Patient was treated with ceftriaxone. Repeat urine culture on 06/04 only reveals contaminants. Weakness: Continue physical therapy Nursing staff to get patient up out of bed at least 3 times daily Palliative care evaluation According to palliative care notes family wishes aggressive management, they are expecting him to improve, go to a rehabilitation facility and then improve enough to go home. They are declining hospice. DVT prophylaxis: SCDs. Avoid chemical prophylaxis secondary to GI bleed. Discharge Planning CM requested Tariq Hubbard to evaluate for placement. Attending Statement Patient seen. Agree with above. Madeline Ortez Jul 25, 2016 18:33 Jaguar Carranza MD Jul 26, 2016 07:22
[2016-07-25 20:00] VITALS: BP 103/69; PULSE 86; RESP 20; TEMP 97.6; O2SAT 94
[2016-07-25] MEDS: MIRTAZAPINE 15 MG TAB PEG SCH (21:30)
[2016-07-26] MEDS: MIDODRINE 5 MG TAB PO SCH ×3 (06:14→17:23)
[2016-07-26 08:00] VITALS: BP 114/71; PULSE 68; RESP 20; TEMP 95.5; O2SAT 96
[2016-07-26] MEDS: FREE WATER G-TUBE SCH (09:00)
[2016-07-26] MEDS: LANSOPRAZOLE SOLUTAB 30 MG TAB PEG SCH (09:01)
[2016-07-26] MEDS: CLOTRIMAZOLE 1% CREAM 15 GM TOPICAL SCH ×2 (09:01→21:09)
[2016-07-26] MEDS: ALLOPURINOL 100 MG TAB PEG SCH (09:01)
--- NOTE | 2016-07-26 14:34 | HHI.PR ---
Subjective Remarks Follow-up for dementia. Nurse informs me the patient has had decreased urine output. The patient denies any fevers or chills, cough, chest pain, shortness of breath, vomiting, dysuria, or diarrhea. Objective Vitals Vital Signs Date Time Temp Pulse Resp B/P Pulse Ox O2 Delivery O2 Flow Rate FiO2 07/26/16 08:00 95.5 68 20 114/71 96 07/25/16 20:00 97.6 86 20 103/69 94 I/O 07/25/16 07/25/16 07/25/16 07/26/16 07/26/16 07/26/16 07:00 15:00 23:00 07:00 15:00 23:00 Intake Total 0 ml Output Total 350.00 ml 200 ml 300 ml Balance -350.00 ml 0 ml -200 ml -300 ml Intake Oral 0 ml Output Urine Total 200 ml 300 ml Blood Draw 350.00 ml # Bowel Movements 1 1 0 Objective Remarks GENERAL: Well developed male in no apparent distress. CARDIOVASCULAR: Regular rate and rhythm. RESPIRATORY: No accessory muscle use. CTAB. GASTROINTESTINAL: Abdomen soft, nontender, nondistended. NEURO: Awake and alert. Does not speak aloud. Procedures None Urinary Catheter: Yes Assessment to: Continue Soto insert reason: Prolonged Immobilization Date of Insertion: Jul 05, 2016 Vascular Central Line Catheter: No A/P Problem List: (1) Decreased urine output ICD Code: R34 Status: Acute (2) Prerenal azotemia ICD Code: R79.89 Status: Resolved Assessment and Plan Decreased urine output: Acute. Only 500 mL over last 24 hours, 250 mL today. Urine concentrated but clear. Continue free water flushes 800 mL total daily, confirmed with nurse. Today's labs reviewed with normal WBC count and normal renal function. Bladder scan to be performed to assess for retention although patient's abdominal exam is benign. Upper GI bleeding: Resolved with recurrent rectal bleeding. Hemoglobin stable. GI reevaluated patient on 05/04. Presumed hemorrhoids, s/p Anusol HC for total of 2 weeks. Continue PPI. Protein calorie malnutrition: Improving Consulted dietitian who indicated that patient may be converted to bolus feeding Jevity 1.5 w/ bolus 1.5 cans(360ml) @ 0800 and 2000 and 1-can(240ml) @ 1100, 1400 and 1700. Free Water Flush 100ml before and after each bolus feeding. Ensure Enlive tid and chocolate pudding tid Prealbumin level 25. Patient desired to eat and speech therapy advised puree diet, thin liquids, but patient has not been eating. Contact Lens Fitter suggested considering appetite stimulant. This was discussed with attending, but we do not believe this would be beneficial for patient and would add unnecessary risk to the patient. Will continue with tube feeds only. Dementia with inappropriate behavior, mood disorder improved Patient had inappropriate behavior which is resolved now. He has been very appropriate for a long time now. Patient has been hospitalized for similar events in 2015 Consulted psychiatry for further evaluation, who indicated that this is a frontal lobe dementia Risperdal 0.25 mg during the day, Risperdal 0.5 mg at night. Risperdal was discontinued per POA request. Continue Remeron Psychiatry was reconsulted and is ok with discontinuation of Risperdal. Probable seborrheic dermatitis: Flaky skin to the face and neck. -Improved s/p one time dose of Ketoconazole 2% shampoo. -Monitor need for further treatments. Chalazion: Persistent nodule R upper eyelid. There is no evidence of preseptal cellulitis. -Warm compresses were applied but it was greater than 2 weeks without significant improvement. -Ophthalmology was consulted and evaluated patient on 03/26. S/p warm compresses and Tobradex 4 times a day OD x 2 weeks. Patient was intermittently compliant with eyedrops. -No worsening. Follow-up outpatient. Hypotension: Blood pressure labile. Continue Midodrine. Patient on max dose. Increase free water flushes as needed. Pre-renal azotemia: Resolved. BUN normal at 18. Stage I decubitus ulcer, sacral skin tear: Continue wound care. Frequent turning of patient. Candidal infection: buttocks affected with satellite lesions to the perineum. -S/p Nystatin -Continue Clotrimazole -07/23: I spoke with wound care nurse who states that fungal rash to buttocks is improving but is now over the patient's back. Apply clotrimazole to back and buttocks. Mild obstructive uropathy: Resolved. Appreciate urology recommendations. Suprapubic catheter to be changed monthly; it was last changed on 07/05/16. Abdominal pelvis CT 03/06/16 shows resolution of right sided hydronephrosis. Urinary tract infection: Urine culture positive for Proteus mirabilis and GBS on 01/20. Patient completed course of antibiotics. Abdominal pelvis CT 03/06 shows decompressed bladder with circumferential bladder wall thickening and intraluminal air possibly indicating cystitis, but the patient had been afebrile with normal WBC count. Urine culture 05/31 with Serratia marcescens, Pseudomonas, and Enterococcus faecalis. Patient was treated with ceftriaxone. Repeat urine culture on 06/04 only reveals contaminants. Weakness: Continue physical therapy Nursing staff to get patient up out of bed at least 3 times daily Palliative care evaluation According to palliative care notes family wishes aggressive management, they are expecting him to improve, go to a rehabilitation facility and then improve enough to go home. They are declining hospice. DVT prophylaxis: SCDs. Avoid chemical prophylaxis secondary to GI bleed. Discussed patient with Dr. Carranza. Discharge Planning CM requested Tariq Hubbard to evaluate for placement. Attending Statement Patient seen. Agree with above. Madeline Ortez Jul 26, 2016 14:34 Jaguar Carranza MD Jul 26, 2016 19:18
[2016-07-26 14:40] LABS: AUTOMATED NEUTROPHIL # 3.7 TH/MM3 (1.8-7.7); BASOPHIL # 0.1 TH/MM3 (0-0.2); BASOPHIL % 1.3 % (0.0-2.0); EOSINOPHIL # 0.7 TH/MM3 (0-0.4); EOSINOPHIL % 8.1 % (0.0-4.0); HEMO FLAGS DIFF FINAL; LYMPH % 40.5 % (9.0-44.0); LYMPHOCYTE # 3.5 TH/MM3 (1.0-4.8); MEAN CELL VOLUME 86.9 FL (80.0-100.0); MEAN CORPUSCULAR HEMOGLOBIN 28.5 PG (27.0-34.0); MEAN CORPUSCULAR HGB CONC 32.7 % (32.0-36.0); NEUT % 43.1 % (16.0-70.0); PLATELET COUNT 211 TH/MM3 (150-450); RED BLOOD COUNT 4.84 MIL/MM3 (4.50-5.90); RED CELL DISTRIBUTION WIDTH 15.2 % (11.6-17.2); WHITE BLOOD COUNT 8.6 TH/MM3 (4.0-11.0)
[2016-07-26 20:00] VITALS: BP 105/62; PULSE 67; RESP 20; TEMP 96.5; O2SAT 97
[2016-07-26] MEDS: MIRTAZAPINE 15 MG TAB PEG SCH (20:50)
[2016-07-27] MEDS: MIDODRINE 5 MG TAB PO SCH ×3 (06:47→17:15)
[2016-07-27 07:15] VITALS: BP 89/63; PULSE 69; RESP 18; TEMP 97.2; O2SAT 96
[2016-07-27] MEDS: LANSOPRAZOLE SOLUTAB 30 MG TAB PEG SCH (08:33)
[2016-07-27] MEDS: ALLOPURINOL 100 MG TAB PEG SCH (08:33)
[2016-07-27] MEDS: CLOTRIMAZOLE 1% CREAM 15 GM TOPICAL SCH ×2 (08:34→22:46)
[2016-07-27] MEDS: FREE WATER G-TUBE SCH (09:00)
[2016-07-27 10:06] VITALS: BP 110/72; PULSE 77; O2SAT 97
--- NOTE | 2016-07-27 12:30 | HHI.PR ---
Subjective Remarks Follow-up for dementia. Nurse was concerned due to decreased urinary output yesterday, but workup was negative and the nurse is concerned that intake and output is not being tracked appropriately so she will personally track this today. Objective Vitals Vital Signs Date Time Temp Pulse Resp B/P Pulse Ox O2 Delivery O2 Flow Rate FiO2 07/27/16 10:06 77 110/72 97 07/27/16 07:15 97.2 69 18 89/63 96 07/26/16 20:00 96.5 67 20 105/62 97 I/O 07/26/16 07/26/16 07/26/16 07/27/16 07/27/16 07/27/16 07:00 15:00 23:00 07:00 15:00 23:00 Intake Total 0 ml 1880 ml 520 ml 760 ml Output Total 300 ml 250 ml 200 ml 350 ml 375 ml Balance -300 ml -250 ml 1680 ml 170 ml 385 ml Intake Oral 0 ml Tube Feeding 1080 ml 360 ml 360 ml Tube Irrigant 600 ml Other 200 ml 160 ml 400 ml Output Urine Total 300 ml 250 ml 200 ml 350 ml 375 ml # Bowel Movements 0 2 0 1 0 Result Diagram: 07/26/16 1432 07/26/16 1432 Objective Remarks GENERAL: Well developed male in no apparent distress. CARDIOVASCULAR: Regular rate and rhythm. RESPIRATORY: No accessory muscle use. CTAB. GASTROINTESTINAL: Abdomen soft, nontender, nondistended. NEURO: Awake and alert. Does not speak aloud. Procedures None Urinary Catheter: Yes Assessment to: Continue Soto insert reason: Prolonged Immobilization Date of Insertion: Jul 05, 2016 Vascular Central Line Catheter: No A/P Problem List: (1) Decreased urine output ICD Code: R34 Status: Acute (2) Prerenal azotemia ICD Code: R79.89 Status: Resolved Assessment and Plan 07/26 Decreased urine output: Acute. Continue free water flushes 800 mL total daily, confirmed with nurse. Normal WBC count and normal renal function. Bladder scan was performed without retention evident. Intake and output is likely not being tracked appropriately. Nurse to monitor this closely today; will follow. Upper GI bleeding: Resolved with recurrent rectal bleeding. Hemoglobin stable. GI reevaluated patient on 05/04. Presumed hemorrhoids, s/p Anusol HC for total of 2 weeks. Continue PPI. Protein calorie malnutrition: Improving Consulted dietitian who indicated that patient may be converted to bolus feeding Jevity 1.5 w/ bolus 1.5 cans(360ml) @ 0800 and 2000 and 1-can(240ml) @ 1100, 1400 and 1700. Free Water Flush 100ml before and after each bolus feeding. Ensure Enlive tid and chocolate pudding tid Prealbumin level 25. Patient desired to eat and speech therapy advised puree diet, thin liquids, but patient has not been eating. File Drawer Finisher suggested considering appetite stimulant. This was discussed with attending, but we do not believe this would be beneficial for patient and would add unnecessary risk to the patient. Will continue with tube feeds only. Dementia with inappropriate behavior, mood disorder improved Patient had inappropriate behavior which is resolved now. He has been very appropriate for a long time now. Patient has been hospitalized for similar events in 2015 Consulted psychiatry for further evaluation, who indicated that this is a frontal lobe dementia Risperdal 0.25 mg during the day, Risperdal 0.5 mg at night. Risperdal was discontinued per POA request. Continue [facility] Psychiatry was reconsulted and is ok with discontinuation of Risperdal. Probable seborrheic dermatitis: Flaky skin to the face and neck. -Improved s/p one time dose of Ketoconazole 2% shampoo. -Monitor need for further treatments. Chalazion: Persistent nodule R upper eyelid. There is no evidence of preseptal cellulitis. -Warm compresses were applied but it was greater than 2 weeks without significant improvement. -Ophthalmology was consulted and evaluated patient on 03/26. S/p warm compresses and Tobradex 4 times a day OD x 2 weeks. Patient was intermittently compliant with eyedrops. -No worsening. Follow-up outpatient. Hypotension: Blood pressure labile. Continue Midodrine. Patient on max dose. Increase free water flushes as needed. Pre-renal azotemia: Resolved. BUN normal at 18. Stage I decubitus ulcer, sacral skin tear: Continue wound care. Frequent turning of patient. Candidal infection: buttocks affected with satellite lesions to the perineum. -S/p Nystatin -Continue Clotrimazole -07/23: I spoke with wound care nurse who states that fungal rash to buttocks is improving but is now over the patient's back. Apply clotrimazole to back and buttocks. Mild obstructive uropathy: Resolved. Appreciate urology recommendations. Suprapubic catheter to be changed monthly; it was last changed on 07/05/16. Abdominal pelvis CT 03/06/16 shows resolution of right sided hydronephrosis. Urinary tract infection: Urine culture positive for Proteus mirabilis and GBS on 01/20. Patient completed course of antibiotics. Abdominal pelvis CT 03/06 shows decompressed bladder with circumferential bladder wall thickening and intraluminal air possibly indicating cystitis, but the patient had been afebrile with normal WBC count. Urine culture 05/31 with Serratia marcescens, Pseudomonas, and Enterococcus faecalis. Patient was treated with ceftriaxone. Repeat urine culture on 06/04 only reveals contaminants. Weakness: Continue physical therapy Nursing staff to get patient up out of bed at least 3 times daily Palliative care evaluation According to palliative care notes family wishes aggressive management, they are expecting him to improve, go to a rehabilitation facility and then improve enough to go home. They are declining hospice. DVT prophylaxis: SCDs. Avoid chemical prophylaxis secondary to GI bleed. Discharge Planning CM requested Tariq Hubbard to evaluate for placement. Attending Statement Patient seen. Agree with above. Madeline Ortez Jul 27, 2016 12:30 Jaguar Carranza MD Jul 28, 2016 07:27
[2016-07-27 20:00] VITALS: BP 111/67; PULSE 66; RESP 19; TEMP 96; O2SAT 97
[2016-07-27] MEDS: MIRTAZAPINE 15 MG TAB PEG SCH (22:46)
[2016-07-28] MEDS: MIDODRINE 5 MG TAB PO SCH ×3 (05:54→16:50)
[2016-07-28 08:00] VITALS: BP 100/63; PULSE 69; RESP 17; TEMP 97.8; O2SAT 97
[2016-07-28] MEDS: ALLOPURINOL 100 MG TAB PEG SCH (08:33)
[2016-07-28] MEDS: LANSOPRAZOLE SOLUTAB 30 MG TAB PEG SCH (08:33)
[2016-07-28] MEDS: CLOTRIMAZOLE 1% CREAM 15 GM TOPICAL SCH ×2 (08:34→22:19)
--- NOTE | 2016-07-28 08:47 | HHI.PR ---
Subjective Remarks Follow-up for dementia. Nurse informs me that patient's urine output is indeed normal as she personally keep track of it yesterday. It apparently was not being monitored properly. Objective Vitals Vital Signs Date Time Temp Pulse Resp B/P Pulse Ox O2 Delivery O2 Flow Rate FiO2 07/28/16 08:00 97.8 69 17 100/63 97 07/27/16 20:00 96.0 66 19 111/67 97 07/27/16 10:06 77 110/72 97 I/O 07/27/16 07/27/16 07/27/16 07/28/16 07/28/16 07/28/16 07:00 15:00 23:00 07:00 15:00 23:00 Intake Total 520 ml 1640 ml 880 ml Output Total 350 ml 750 ml 900.00 ml 500.00 ml Balance 170 ml 890 ml -20.00 ml -500.00 ml Tube Feeding 360 ml 840 ml 600 ml Other 160 ml 800 ml 280 ml Output Urine Total 350 ml 750 ml 600 ml Blood Draw 300.00 ml 500.00 ml # Bowel Movements 1 0 1 1 Result Diagram: 07/26/16 1432 07/26/16 1432 Objective Remarks GENERAL: Well developed male in no apparent distress. CARDIOVASCULAR: Regular rate and rhythm. RESPIRATORY: No accessory muscle use. CTAB. GASTROINTESTINAL: Abdomen soft, nontender, nondistended. NEURO: Awake and alert. Does not speak aloud. Procedures None Urinary Catheter: Yes Assessment to: Continue Soto insert reason: Prolonged Immobilization Date of Insertion: Jul 05, 2016 Vascular Central Line Catheter: No A/P Problem List: (1) Decreased urine output ICD Code: R34 Status: Acute (2) Prerenal azotemia ICD Code: R79.89 Status: Resolved Assessment and Plan 07/26 Decreased urine output: Resolved Continue free water flushes 800 mL total daily, confirmed with nurse. Normal WBC count and normal renal function. Bladder scan was performed without retention evident. Intake and output was likely not being tracked properly. Patient has had good urine output over the past 24 hours. Upper GI bleeding: Resolved with recurrent rectal bleeding. Hemoglobin stable. GI reevaluated patient on 05/04. Presumed hemorrhoids, s/p Anusol HC for total of 2 weeks. Continue PPI. Protein calorie malnutrition: Improving Consulted dietitian who indicated that patient may be converted to bolus feeding Jevity 1.5 w/ bolus 1.5 cans(360ml) @ 0800 and 2000 and 1-can(240ml) @ 1100, 1400 and 1700. Free Water Flush 100ml before and after each bolus feeding. Ensure Enlive tid and chocolate pudding tid Prealbumin level 25. Patient desired to eat and speech therapy advised puree diet, thin liquids, but patient has not been eating. Linux Network Engineer suggested considering appetite stimulant. This was discussed with attending, but we do not believe this would be beneficial for patient and would add unnecessary risk to the patient. Will continue with tube feeds only. Dementia with inappropriate behavior, mood disorder improved Patient had inappropriate behavior which is resolved now. He has been very appropriate for a long time now. Patient has been hospitalized for similar events in 2015 Consulted psychiatry for further evaluation, who indicated that this is a frontal lobe dementia Risperdal 0.25 mg during the day, Risperdal 0.5 mg at night. Risperdal was discontinued per POA request. Continue [facility] Psychiatry was reconsulted and is ok with discontinuation of Risperdal. Probable seborrheic dermatitis: Flaky skin to the face and neck. -Improved s/p one time dose of Ketoconazole 2% shampoo. -Monitor need for further treatments. Chalazion: Persistent nodule R upper eyelid. There is no evidence of preseptal cellulitis. -Warm compresses were applied but it was greater than 2 weeks without significant improvement. -Ophthalmology was consulted and evaluated patient on 03/26. S/p warm compresses and Tobradex 4 times a day OD x 2 weeks. Patient was intermittently compliant with eyedrops. -No worsening. Follow-up outpatient. Hypotension: Blood pressure labile. Continue Midodrine. Patient on max dose. Increase free water flushes as needed. Pre-renal azotemia: Resolved. BUN normal at 18. Stage I decubitus ulcer, sacral skin tear: Continue wound care. Frequent turning of patient. Candidal infection: buttocks affected with satellite lesions to the perineum. -S/p Nystatin -Continue Clotrimazole -07/23: I spoke with wound care nurse who states that fungal rash to buttocks is improving but is now over the patient's back. Apply clotrimazole to back and buttocks. Mild obstructive uropathy: Resolved. Appreciate urology recommendations. Suprapubic catheter to be changed monthly; it was last changed on 07/05/16. Abdominal pelvis CT 03/06/16 shows resolution of right sided hydronephrosis. Urinary tract infection: Urine culture positive for Proteus mirabilis and GBS on 01/20. Patient completed course of antibiotics. Abdominal pelvis CT 03/06 shows decompressed bladder with circumferential bladder wall thickening and intraluminal air possibly indicating cystitis, but the patient had been afebrile with normal WBC count. Urine culture 05/31 with Serratia marcescens, Pseudomonas, and Enterococcus faecalis. Patient was treated with ceftriaxone. Repeat urine culture on 06/04 only reveals contaminants. Weakness: Continue physical therapy Nursing staff to get patient up out of bed at least 3 times daily Palliative care evaluation According to palliative care notes family wishes aggressive management, they are expecting him to improve, go to a rehabilitation facility and then improve enough to go home. They are declining hospice. DVT prophylaxis: SCDs. Avoid chemical prophylaxis secondary to GI bleed. Discharge Planning CM requested Tariq Hubbard to evaluate for placement. Attending Statement Patient seen. Agree with above. Madeline Ortez Jul 28, 2016 08:47 Jaguar Carranza MD Jul 28, 2016 14:55
[2016-07-28] MEDS: FREE WATER G-TUBE SCH (09:00)
[2016-07-28 20:00] VITALS: BP 102/65; PULSE 75; RESP 21; TEMP 97.2; O2SAT 96
[2016-07-28] MEDS: MIRTAZAPINE 15 MG TAB PEG SCH (22:19)
[2016-07-29] MEDS: MIDODRINE 5 MG TAB PO SCH ×3 (06:20→17:59)
[2016-07-29 08:00] VITALS: BP 125/75; PULSE 66; RESP 18; TEMP 95.6; O2SAT 98
[2016-07-29] MEDS: LANSOPRAZOLE SOLUTAB 30 MG TAB PEG SCH (08:55)
[2016-07-29] MEDS: ALLOPURINOL 100 MG TAB PEG SCH (08:55)
[2016-07-29] MEDS: FREE WATER G-TUBE SCH (08:56)
[2016-07-29] MEDS: CLOTRIMAZOLE 1% CREAM 15 GM TOPICAL SCH ×2 (09:01→21:19)
--- NOTE | 2016-07-29 12:20 | HHI.PR ---
Subjective Remarks Follow-up for dementia. No acute complaints. No change in clinical status. Objective Vitals Vital Signs Date Time Temp Pulse Resp B/P Pulse Ox O2 Delivery O2 Flow Rate FiO2 07/29/16 08:00 95.6 66 18 125/75 98 07/28/16 20:00 97.2 75 21 102/65 96 I/O 07/28/16 07/28/16 07/28/16 07/29/16 07/29/16 07/29/16 07:00 15:00 23:00 07:00 15:00 23:00 Intake Total 1640 ml 440 ml 560 ml Output Total 500.00 ml 850 ml 240.00 ml 750.00 ml Balance -500.00 ml 790 ml 200.00 ml -190.00 ml Tube Feeding 840 ml 240 ml 360 ml Other 800 ml 200 ml 200 ml Output Urine Total 850 ml Blood Draw 500.00 ml 240.00 ml 750.00 ml # Bowel Movements 1 1 Result Diagram: 07/26/16 1432 07/26/16 1432 Objective Remarks GENERAL: Well developed male in no apparent distress. CARDIOVASCULAR: Regular rate and rhythm. RESPIRATORY: No accessory muscle use. CTAB. GASTROINTESTINAL: Abdomen soft, nontender, nondistended. Feeding tube present. NEURO: Awake and alert. Does not speak aloud. Procedures None Urinary Catheter: Yes Assessment to: Continue Soto insert reason: Prolonged Immobilization Date of Insertion: Jul 05, 2016 Vascular Central Line Catheter: No A/P Problem List: (1) Decreased urine output ICD Code: R34 Status: Acute (2) Prerenal azotemia ICD Code: R79.89 Status: Resolved Assessment and Plan 07/26 Decreased urine output: Resolved Continue free water flushes 800 mL total daily, confirmed with nurse. Normal WBC count and normal renal function. Bladder scan was performed without retention evident. Intake and output was likely not being tracked properly. Patient has had good urine output documented since yesterday. Upper GI bleeding: Resolved with recurrent rectal bleeding. Hemoglobin stable. GI reevaluated patient on 05/04. Presumed hemorrhoids, s/p Anusol HC for total of 2 weeks. Continue PPI. Protein calorie malnutrition: Improving Consulted dietitian who indicated that patient may be converted to bolus feeding Jevity 1.5 w/ bolus 1.5 cans(360ml) @ 0800 and 2000 and 1-can(240ml) @ 1100, 1400 and 1700. Free Water Flush 100ml before and after each bolus feeding. Ensure Enlive tid and chocolate pudding tid Prealbumin level 25. Patient desired to eat and speech therapy advised puree diet, thin liquids, but patient has not been eating. [employer] suggested considering appetite stimulant. This was discussed with attending, but we do not believe this would be beneficial for patient and would add unnecessary risk to the patient. Will continue with tube feeds only. Dementia with inappropriate behavior, mood disorder improved Patient had inappropriate behavior which is resolved now. He has been very appropriate for a long time now. Patient has been hospitalized for similar events in 2015 Consulted psychiatry for further evaluation, who indicated that this is a frontal lobe dementia Risperdal 0.25 mg during the day, Risperdal 0.5 mg at night. Risperdal was discontinued per POA request. Continue Remeron Psychiatry was reconsulted and is ok with discontinuation of Risperdal. Probable seborrheic dermatitis: Flaky skin to the face and neck. -Improved s/p one time dose of Ketoconazole 2% shampoo. -Monitor need for further treatments. Chalazion: Persistent nodule R upper eyelid. There is no evidence of preseptal cellulitis. -Warm compresses were applied but it was greater than 2 weeks without significant improvement. -Ophthalmology was consulted and evaluated patient on 03/26. S/p warm compresses and Tobradex 4 times a day OD x 2 weeks. Patient was intermittently compliant with eyedrops. -No worsening. Follow-up outpatient. Hypotension: Blood pressure labile. Continue Midodrine. Patient on max dose. Increase free water flushes as needed. Pre-renal azotemia: Resolved. BUN normal at 18. Stage I decubitus ulcer, sacral skin tear: Continue wound care. Frequent turning of patient. Candidal infection: buttocks affected with satellite lesions to the perineum. -S/p Nystatin -Continue Clotrimazole -07/23: I spoke with wound care nurse who states that fungal rash to buttocks is improving but is now over the patient's back. Apply clotrimazole to back and buttocks. Mild obstructive uropathy: Resolved. Appreciate urology recommendations. Suprapubic catheter to be changed monthly; it was last changed on 07/05/16. Abdominal pelvis CT 03/06/16 shows resolution of right sided hydronephrosis. Urinary tract infection: Urine culture positive for Proteus mirabilis and GBS on 01/20. Patient completed course of antibiotics. Abdominal pelvis CT 03/06 shows decompressed bladder with circumferential bladder wall thickening and intraluminal air possibly indicating cystitis, but the patient had been afebrile with normal WBC count. Urine culture 05/31 with Serratia marcescens, Pseudomonas, and Enterococcus faecalis. Patient was treated with ceftriaxone. Repeat urine culture on 06/04 only reveals contaminants. Weakness: Continue physical therapy Nursing staff to get patient up out of bed at least 3 times daily Palliative care evaluation According to palliative care notes family wishes aggressive management, they are expecting him to improve, go to a rehabilitation facility and then improve enough to go home. They are declining hospice. DVT prophylaxis: SCDs. Avoid chemical prophylaxis secondary to GI bleed. Discharge Planning CM requested [facility] to evaluate for placement. Attending Statement Patient seen. Agree with above. Madeline Ortez Jul 29, 2016 12:20 Jaguar Carranza MD Jul 30, 2016 07:56
[2016-07-29 20:00] VITALS: BP 95/60; PULSE 85; RESP 20; TEMP 96.5; O2SAT 96
[2016-07-29] MEDS: MIRTAZAPINE 15 MG TAB PEG SCH (21:18)
[2016-07-30] MEDS: MIDODRINE 5 MG TAB PO SCH ×3 (06:01→17:29)
[2016-07-30 08:00] VITALS: BP 110/74; PULSE 70; RESP 17; TEMP 96.7; O2SAT 94
[2016-07-30] MEDS: ALLOPURINOL 100 MG TAB PEG SCH (08:47)
[2016-07-30] MEDS: CLOTRIMAZOLE 1% CREAM 15 GM TOPICAL SCH ×2 (08:47→21:04)
[2016-07-30] MEDS: LANSOPRAZOLE SOLUTAB 30 MG TAB PEG SCH (08:47)
[2016-07-30] MEDS: FREE WATER G-TUBE SCH (09:00)
--- NOTE | 2016-07-30 15:16 | HHI.PR ---
Subjective Remarks Patient seen and examined today. Patient denies any new complaints. No change clinical status. Objective Vitals Vital Signs Date Time Temp Pulse Resp B/P Pulse Ox O2 Delivery O2 Flow Rate FiO2 07/30/16 08:00 96.7 70 17 110/74 94 07/29/16 20:00 96.5 85 20 95/60 96 07/29/16 20:00 96.5 85 20 95/60 96 I/O 07/29/16 07/29/16 07/29/16 07/30/16 07/30/16 07/30/16 07:00 15:00 23:00 07:00 15:00 23:00 Intake Total 560 ml 0 ml 1220 ml 0 ml Output Total 750.00 ml 850 ml 350 ml 250 ml Balance -190.00 ml -850 ml 870 ml -250 ml Intake Oral 0 ml 0 ml 0 ml Tube Feeding 360 ml 720 ml Other 200 ml 500 ml Output Urine Total 850 ml 350 ml 250 ml Blood Draw 750.00 ml # Bowel Movements 1 0 0 Result Diagram: 07/26/16 1432 07/26/16 1432 Objective Remarks GENERAL: Well-developed, well-nourished, in no acute distress. Patient awake and alert HEENT: Head is normocephalic without any lesions or masses noted. Facial features are symmetric. Eyes: Extraocular muscles are intact. Conjunctivae were clear. NECK: Trachea midline no deviation. CARDIAC: Regular rhythm, regular rate. S1/S2 are heard. No murmurs gallops or rubs. LUNGS: Clear to auscultation bilaterally. No wheeze, rhonchi or rales. No use of accessory muscles on inspiration or expiration. ABDOMEN: Soft, nontender. Nondistended. Bowel sounds heard in all 4 quadrants. No organomegaly or masses. Negative rebound, negative guarding, suprapubic catheter in place, PEG tube noted EXTREMITIES: No edema, pulses are equal bilaterally. No cyanosis or clubbing NEUROLOGY: Mood and affect appear appropriate. Cranial nerves II through XII grossly intact. Moving all extremities SKIN: Patient's back has skin breakdown on his back and sacral area. Appears to the clinic heat rash which is developing worse because patient refuses to get out of bed. Procedures None Urinary Catheter: Yes Assessment to: Continue Soto insert reason: Prolonged Immobilization Date of Insertion: Jul 05, 2016 Vascular Central Line Catheter: No A/P Assessment and Plan Dementia with inappropriate behavior, mood disorder improved Patient has been hospitalized for similar events in 2015 Consulted psychiatry for further evaluation, who indicated that this is a frontal lobe dementia Risperdal discontinued at family's request Continue Remeron Parkinson's disease: Patient has dementia and resting tremor. Chronic, stable. Weakness: Continue physical therapy Nursing staff to get patient up out of bed at least 3 times daily GI bleed with presenting of Upper GI bleed, patient with intermittent rectal bleeding: Resolved Hemoglobin continues to remain stable GI was following and reevaluated on 05/04/16 Presumed hemorrhoids, continue Anusol HC for 2 weeks Continue PPI. Protein calorie malnutrition: Improving Consulted dietitian who indicated that patient may be converted to bolus feeding Jevity 1.5, 6 cans per day. 1.5 cans that 0800 and 2000, 1 can at 1100, 1400, 1700 Prealbumin level 24 Ensure Enlive 3 times a day since pudding 3 times a day Hypotension with episodes of hypertension: Stable Blood pressure labile. Continue monitor blood pressure Continue Midodrine. Mild obstructive uropathy: Resolved. Appreciate urology recommendations. Suprapubic catheter in place, last changed 07/05/16. Abdominal pelvis CT 03/06/16 shows resolution of right sided hydronephrosis. Recurrent urinary tract infection Replaced Soto 07/05/16, continue changed monthly Patient with urine cultures with different organisms, likely secondary to suprapubic catheter, continue monitor and treat only if symptomatic Elevated BUN, stable Continue fluid flushes via PEG tube to avoid dehydration. Stage I decubitus ulcer, sacral skin tear: Continue wound care. Palliative care evaluation According to palliative care notes. Family wishes aggressive management, they are expecting him to improve, go to a rehabilitation facility and then improve enough to go home. They are deferring hospice. DVT prophylaxis: SCDs. Avoid chemical prophylaxis secondary to GI bleed. No change present treatment plan Discharge Planning Discharge planning per case management. Case management last documentation indicates that they're [facility] evaluate for placement Attending Statement Patient seen. Agree with above. Jaguar Walker Jul 30, 2016 15:16 Jaguar Carranza MD Jul 30, 2016 18:30
[2016-07-30 20:00] VITALS: BP 102/66; PULSE 65; RESP 20; TEMP 97.7; O2SAT 95
[2016-07-30] MEDS: MIRTAZAPINE 15 MG TAB PEG SCH (21:04)
[2016-07-31] MEDS: MIDODRINE 5 MG TAB PO SCH ×3 (06:18→16:10)
[2016-07-31 08:00] VITALS: BP 110/82; PULSE 72; RESP 16; TEMP 97.7; O2SAT 95
[2016-07-31] MEDS: FREE WATER G-TUBE SCH (08:07)
[2016-07-31] MEDS: LANSOPRAZOLE SOLUTAB 30 MG TAB PEG SCH (08:07)
[2016-07-31] MEDS: ALLOPURINOL 100 MG TAB PEG SCH (08:07)
[2016-07-31] MEDS: CLOTRIMAZOLE 1% CREAM 15 GM TOPICAL SCH ×2 (09:00→20:48)
--- NOTE | 2016-07-31 13:40 | HHI.PR ---
Subjective Remarks Patient seen and examined today. Patient denies any new complaints. No change in clinical status. Objective Vitals Vital Signs Date Time Temp Pulse Resp B/P Pulse Ox O2 Delivery O2 Flow Rate FiO2 07/31/16 08:00 97.7 72 16 110/82 95 07/30/16 20:00 97.7 65 20 102/66 95 I/O 07/30/16 07/30/16 07/30/16 07/31/16 07/31/16 07/31/16 07:00 15:00 23:00 07:00 15:00 23:00 Intake Total 0 ml 0 ml Output Total 250 ml 1655 ml 550 ml Balance -250 ml -1655 ml -550 ml Intake Oral 0 ml 0 ml Output Urine Total 250 ml 1655 ml 550 ml # Bowel Movements 0 1 0 Objective Remarks GENERAL: Well-developed, well-nourished, in no acute distress. Patient awake and alert HEENT: Head is normocephalic without any lesions or masses noted. Facial features are symmetric. Eyes: Extraocular muscles are intact. Conjunctivae were clear. NECK: Trachea midline no deviation. CARDIAC: Regular rhythm, regular rate. S1/S2 are heard. No murmurs gallops or rubs. LUNGS: Clear to auscultation bilaterally. No wheeze, rhonchi or rales. No use of accessory muscles on inspiration or expiration. ABDOMEN: Soft, nontender. Nondistended. Bowel sounds heard in all 4 quadrants. No organomegaly or masses. Negative rebound, negative guarding, suprapubic catheter in place, PEG tube noted EXTREMITIES: No edema, pulses are equal bilaterally. No cyanosis or clubbing NEUROLOGY: Mood and affect appear appropriate. Cranial nerves II through XII grossly intact. Moving all extremities SKIN: Patient's back has skin breakdown on his back and sacral area. Appears to the clinic heat rash which is developing worse because patient refuses to get out of bed. Procedures None Urinary Catheter: Yes Assessment to: Continue Soto insert reason: Obstruction/Retention Date of Insertion: Jul 05, 2016 Vascular Central Line Catheter: No A/P Assessment and Plan Weakness: Continue physical therapy Nursing staff to get patient up out of bed at least 3 times daily Dementia with inappropriate behavior, mood disorder improved Patient has been hospitalized for similar events in 2014 Consulted psychiatry for further evaluation, who indicated that this is a frontal lobe dementia Risperdal discontinued at family's request Continue Remeron Parkinson's disease: Patient has dementia and resting tremor. Chronic, stable. GI bleed with presenting of Upper GI bleed, patient with intermittent rectal bleeding: Resolved Hemoglobin continues to remain stable GI was following and reevaluated on 05/04/16 Presumed hemorrhoids, continue Anusol HC for 2 weeks Continue PPI. Protein calorie malnutrition: Improving Consulted dietitian who indicated that patient may be converted to bolus feeding Jevity 1.5, 6 cans per day. 1.5 cans that 0800 and 2000, 1 can at 1100, 1400, 1700 Prealbumin level 24 Ensure Enlive 3 times a day since pudding 3 times a day Hypotension with episodes of hypertension: Stable Blood pressure labile. Continue monitor blood pressure Continue Midodrine. Mild obstructive uropathy: Resolved. Appreciate urology recommendations. Suprapubic catheter in place, last changed 07/31/16. Abdominal pelvis CT 03/06/16 shows resolution of right sided hydronephrosis. Recurrent urinary tract infection Replaced Soto 07/05/16, continue changed monthly Patient with urine cultures with different organisms, likely secondary to suprapubic catheter, continue monitor and treat only if symptomatic Elevated BUN, stable Continue fluid flushes via PEG tube to avoid dehydration. Stage I decubitus ulcer, sacral skin tear: Continue wound care. Palliative care evaluation According to palliative care notes. Family wishes aggressive management, they are expecting him to improve, go to a rehabilitation facility and then improve enough to go home. They are deferring hospice. DVT prophylaxis: SCDs. Avoid chemical prophylaxis secondary to GI bleed. No change present treatment plan Discharge Planning Discharge planning per case management. Case management last documentation indicates that they're [facility] to evaluate for placement Attending Statement Patient seen. Agree with above. Jaguar Walker Jul 31, 2016 13:40 Jaguar Carranza MD Jul 31, 2016 18:01
[2016-07-31 20:00] VITALS: BP 106/71; PULSE 74; RESP 16; TEMP 95.9; O2SAT 94
[2016-07-31] MEDS: MIRTAZAPINE 15 MG TAB PEG SCH (20:47)
[2016-08-01] MEDS: MIDODRINE 5 MG TAB PO SCH ×3 (06:06→16:40)
[2016-08-01 08:16] VITALS: BP 88/60; PULSE 68; RESP 18; TEMP 96.1; O2SAT 94
[2016-08-01] MEDS: LANSOPRAZOLE SOLUTAB 30 MG TAB PEG SCH (08:56)
[2016-08-01] MEDS: CLOTRIMAZOLE 1% CREAM 15 GM TOPICAL SCH ×2 (08:56→20:45)
[2016-08-01] MEDS: FREE WATER G-TUBE SCH (08:56)
[2016-08-01] MEDS: ALLOPURINOL 100 MG TAB PEG SCH (08:56)
--- NOTE | 2016-08-01 10:26 | HHI.PR ---
Subjective Remarks Patient seen and examined today. Patient denies any new complaints. No change in clinical status. Objective Vitals Vital Signs Date Time Temp Pulse Resp B/P Pulse Ox O2 Delivery O2 Flow Rate FiO2 08/01/16 08:16 96.1 68 18 88/60 94 07/31/16 20:00 95.9 74 16 106/71 94 I/O 07/31/16 07/31/16 07/31/16 08/01/16 08/01/16 08/01/16 07:00 15:00 23:00 07:00 15:00 23:00 Intake Total 0 ml Output Total 550 ml 950 ml 250 ml Balance -550 ml -950 ml -250 ml Intake Oral 0 ml Output Urine Total 550 ml 950 ml 250 ml # Bowel Movements 0 0 0 Objective Remarks GENERAL: Well-developed, well-nourished, in no acute distress. Patient awake and alert HEENT: Head is normocephalic without any lesions or masses noted. Facial features are symmetric. Eyes: Extraocular muscles are intact. Conjunctivae were clear. NECK: Trachea midline no deviation. CARDIAC: Regular rhythm, regular rate. S1/S2 are heard. No murmurs gallops or rubs. LUNGS: Clear to auscultation bilaterally. No wheeze, rhonchi or rales. No use of accessory muscles on inspiration or expiration. ABDOMEN: Soft, nontender. Nondistended. Bowel sounds heard in all 4 quadrants. No organomegaly or masses. Negative rebound, negative guarding, suprapubic catheter in place, PEG tube noted EXTREMITIES: No edema, pulses are equal bilaterally. No cyanosis or clubbing NEUROLOGY: Mood and affect appear appropriate. Cranial nerves II through XII grossly intact. Moving all extremities SKIN: Patient's back has skin breakdown on his back and sacral area. Procedures None Urinary Catheter: Yes Assessment to: Continue Soto insert reason: Obstruction/Retention A/P Assessment and Plan Weakness: Continue physical therapy Nursing staff to get patient up out of bed at least 3 times daily Dementia with inappropriate behavior, mood disorder improved Patient has been hospitalized for similar events in 2015 Consulted psychiatry for further evaluation, who indicated that this is a frontal lobe dementia Risperdal discontinued at family's request Continue Remeron Parkinson's disease: Patient has dementia and resting tremor. Chronic, stable. GI bleed with presenting of Upper GI bleed, patient with intermittent rectal bleeding: Resolved Hemoglobin continues to remain stable GI was following and reevaluated on 05/04/16 Presumed hemorrhoids, status post Anusol HC for 2 weeks Continue PPI. Protein calorie malnutrition: Improving Consulted dietitian who indicated that patient may be converted to bolus feeding Jevity 1.5, 6 cans per day. 1.5 cans that 0800 and 2000, 1 can at 1100, 1400, 1700 Prealbumin level 24 Ensure Enlive 3 times a day since pudding 3 times a day Hypotension with episodes of hypertension: Stable Blood pressure labile. Continue monitor blood pressure Continue Midodrine. Mild obstructive uropathy: Resolved. Appreciate urology recommendations. Suprapubic catheter in place, last changed 07/31/16. Abdominal pelvis CT 03/06/16 shows resolution of right sided hydronephrosis. Recurrent urinary tract infection Replaced Soto 07/05/16, continue changed monthly Patient with urine cultures with different organisms, likely secondary to suprapubic catheter, continue monitor and treat only if symptomatic Elevated BUN, stable Continue fluid flushes via PEG tube to avoid dehydration. Stage I decubitus ulcer, sacral skin tear: Continue wound care. Palliative care evaluation According to palliative care notes. Family wishes aggressive management, they are expecting him to improve, go to a rehabilitation facility and then improve enough to go home. They are deferring hospice. DVT prophylaxis: SCDs. Avoid chemical prophylaxis secondary to GI bleed. No change present treatment plan Discharge Planning Discharge planning per case management. Case management last documentation indicates that they're [facility] for [facility] Jaguar Walker Aug 01, 2016 10:26
[2016-08-01 20:00] VITALS: BP 91/63; PULSE 60; RESP 19; TEMP 96; O2SAT 97
[2016-08-01] MEDS: MIRTAZAPINE 15 MG TAB PEG SCH (20:41)
[2016-08-02] MEDS: MIDODRINE 5 MG TAB PO SCH ×3 (06:25→18:39)
[2016-08-02 08:20] VITALS: BP 117/72; PULSE 60; RESP 18; TEMP 96.1; O2SAT 96
[2016-08-02] MEDS: FREE WATER G-TUBE SCH (09:00)
[2016-08-02] MEDS: CLOTRIMAZOLE 1% CREAM 15 GM TOPICAL SCH ×2 (09:00→21:48)
[2016-08-02] MEDS: LANSOPRAZOLE SOLUTAB 30 MG TAB PEG SCH (09:00)
[2016-08-02] MEDS: ALLOPURINOL 100 MG TAB PEG SCH (09:00)
--- NOTE | 2016-08-02 11:53 | HHI.PR ---
Subjective Remarks Patient seen and examined today. Patient denies any new complaints. No change clinical status. Objective Vitals Vital Signs Date Time Temp Pulse Resp B/P Pulse Ox O2 Delivery O2 Flow Rate FiO2 08/02/16 08:20 96.1 60 18 117/72 96 08/01/16 20:00 96.0 60 19 91/63 97 I/O 08/01/16 08/01/16 08/01/16 08/02/16 08/02/16 08/02/16 07:00 15:00 23:00 07:00 15:00 23:00 Output Total 250 ml 900 ml 300 ml Balance -250 ml -900 ml -300 ml Output Urine Total 250 ml 900 ml 300 ml # Bowel Movements 0 Objective Remarks GENERAL: Well-developed, well-nourished, in no acute distress. Patient awake and alert HEENT: Head is normocephalic without any lesions or masses noted. Facial features are symmetric. Eyes: Extraocular muscles are intact. Conjunctivae were clear. NECK: Trachea midline no deviation. CARDIAC: Regular rhythm, regular rate. S1/S2 are heard. No murmurs gallops or rubs. LUNGS: Clear to auscultation bilaterally. No wheeze, rhonchi or rales. No use of accessory muscles on inspiration or expiration. ABDOMEN: Soft, nontender. Nondistended. Bowel sounds heard in all 4 quadrants. No organomegaly or masses. Negative rebound, negative guarding, suprapubic catheter in place, PEG tube noted EXTREMITIES: No edema, pulses are equal bilaterally. No cyanosis or clubbing NEUROLOGY: Mood and affect appear appropriate. Cranial nerves II through XII grossly intact. Moving all extremities SKIN: Patient's back has skin breakdown on his back and sacral area. Procedures None Urinary Catheter: No Vascular Central Line Catheter: No A/P Assessment and Plan Weakness: Continue physical therapy Nursing staff to get patient up out of bed at least 3 times daily Dementia with inappropriate behavior, mood disorder improved Patient has been hospitalized for similar events in 2015 Consulted psychiatry for further evaluation, who indicated that this is a frontal lobe dementia Risperdal discontinued at family's request Continue Remeron Parkinson's disease: Patient has dementia and resting tremor. Chronic, stable. GI bleed with presenting of Upper GI bleed, patient with intermittent rectal bleeding: Resolved Hemoglobin continues to remain stable GI was following and reevaluated on 05/04/16 Presumed hemorrhoids, status post Anusol HC for 2 weeks Continue PPI. Protein calorie malnutrition: Improving Consulted dietitian who indicated that patient may be converted to bolus feeding Jevity 1.5, 6 cans per day. 1.5 cans that 0800 and 2000, 1 can at 1100, 1400, 1700 Prealbumin level 24 Ensure Enlive 3 times a day since pudding 3 times a day Hypotension with episodes of hypertension: Stable Blood pressure labile. Continue monitor blood pressure Continue Midodrine. Mild obstructive uropathy: Resolved. Appreciate urology recommendations. Suprapubic catheter in place, last changed 07/31/16. Abdominal pelvis CT 03/06/16 shows resolution of right sided hydronephrosis. Recurrent urinary tract infection Replaced Soto 07/05/16, continue changed monthly Patient with urine cultures with different organisms, likely secondary to suprapubic catheter, continue monitor and treat only if symptomatic Elevated BUN, stable Continue fluid flushes via PEG tube to avoid dehydration. Stage I decubitus ulcer, sacral skin tear: Continue wound care. Palliative care evaluation According to palliative care notes. Family wishes aggressive management, they are expecting him to improve, go to a rehabilitation facility and then improve enough to go home. They are deferring hospice. DVT prophylaxis: SCDs. Avoid chemical prophylaxis secondary to GI bleed. No change present treatment plan Discharge Planning Discharge planning per case management. Case management last documentation indicates that they're [facility] for [facility] Jaguar Walker Aug 02, 2016 11:53
[2016-08-02 20:00] VITALS: BP 124/76; PULSE 66; RESP 21; TEMP 96.1; O2SAT 97
[2016-08-02] MEDS: MIRTAZAPINE 15 MG TAB PEG SCH (21:48)
[2016-08-03] MEDS: MIDODRINE 5 MG TAB PO SCH ×3 (06:31→16:40)
[2016-08-03 08:00] VITALS: BP 95/56; PULSE 67; RESP 17; TEMP 96.6; O2SAT 93
[2016-08-03] MEDS: LANSOPRAZOLE SOLUTAB 30 MG TAB PEG SCH (09:00)
[2016-08-03] MEDS: FREE WATER G-TUBE SCH (09:00)
[2016-08-03] MEDS: ALLOPURINOL 100 MG TAB PEG SCH (09:00)
[2016-08-03] MEDS: CLOTRIMAZOLE 1% CREAM 15 GM TOPICAL SCH ×2 (09:00→21:01)
--- NOTE | 2016-08-03 11:29 | HHI.PR ---
Subjective Remarks Patient seen and examined today. Patient denies any new complaints. No change clinical status. Objective Vitals Vital Signs Date Time Temp Pulse Resp B/P Pulse Ox O2 Delivery O2 Flow Rate FiO2 08/03/16 08:00 96.6 67 17 95/56 93 08/02/16 20:00 96.1 66 21 124/76 97 I/O 08/02/16 08/02/16 08/02/16 08/03/16 08/03/16 08/03/16 07:00 15:00 23:00 07:00 15:00 23:00 Intake Total 0 ml 600 ml 100 ml Output Total 300 ml 550 ml 300 ml 400 ml Balance -300 ml 50 ml -300 ml -400 ml 100 ml Intake Oral 0 ml 100 ml Tube Feeding 600 ml Output Urine Total 300 ml 550 ml 300 ml 400 ml # Bowel Movements 0 Objective Remarks GENERAL: Well-developed, well-nourished, in no acute distress. Patient awake and alert HEENT: Head is normocephalic without any lesions or masses noted. Facial features are symmetric. Eyes: Extraocular muscles are intact. Conjunctivae were clear. NECK: Trachea midline no deviation. CARDIAC: Regular rhythm, regular rate. S1/S2 are heard. No murmurs gallops or rubs. LUNGS: Clear to auscultation bilaterally. No wheeze, rhonchi or rales. No use of accessory muscles on inspiration or expiration. ABDOMEN: Soft, nontender. Nondistended. Bowel sounds heard in all 4 quadrants. No organomegaly or masses. Negative rebound, negative guarding, suprapubic catheter in place, PEG tube noted EXTREMITIES: No edema, pulses are equal bilaterally. No cyanosis or clubbing NEUROLOGY: Mood and affect appear appropriate. Cranial nerves II through XII grossly intact. Moving all extremities SKIN: Patient's back has skin breakdown on his back and sacral area. Procedures None Urinary Catheter: Yes (suprapubic catheter) Assessment to: Continue Soto insert reason: Obstruction/Retention Vascular Central Line Catheter: No A/P Assessment and Plan Weakness: Continue physical therapy Nursing staff to get patient up out of bed at least 3 times daily Dementia with inappropriate behavior, mood disorder improved Patient has been hospitalized for similar events in 2015 Consulted psychiatry for further evaluation, who indicated that this is a frontal lobe dementia Risperdal discontinued at family's request Continue Remeron Parkinson's disease: Patient has dementia and resting tremor. Chronic, stable. GI bleed with presenting of Upper GI bleed, patient with intermittent rectal bleeding: Resolved Hemoglobin continues to remain stable GI was following and reevaluated on 05/04/16 Presumed hemorrhoids, status post Anusol HC for 2 weeks Continue PPI. Protein calorie malnutrition: Improving Consulted dietitian who indicated that patient may be converted to bolus feeding Jevity 1.5, 6 cans per day. 1.5 cans that 0800 and 2000, 1 can at 1100, 1400, 1700 Prealbumin level 24 Ensure Enlive 3 times a day since pudding 3 times a day Hypotension with episodes of hypertension: Stable Blood pressure labile. Continue monitor blood pressure Continue Midodrine. Mild obstructive uropathy: Resolved. Appreciate urology recommendations. Suprapubic catheter in place, last changed 07/31/16. Abdominal pelvis CT 03/06/16 shows resolution of right sided hydronephrosis. Recurrent urinary tract infection Replaced Soto 07/05/16, continue changed monthly Patient with urine cultures with different organisms, likely secondary to suprapubic catheter, continue monitor and treat only if symptomatic Elevated BUN, stable Continue fluid flushes via PEG tube to avoid dehydration. Stage I decubitus ulcer, sacral skin tear: Continue wound care. Palliative care evaluation According to palliative care notes. Family wishes aggressive management, they are expecting him to improve, go to a rehabilitation facility and then improve enough to go home. They are deferring hospice. DVT prophylaxis: SCDs. Avoid chemical prophylaxis secondary to GI bleed. No change present treatment plan Discharge Planning Discharge planning per case management. Case management last documentation indicates that they're requesting [facility] to evaluate for placement Jaguar Walker Aug 03, 2016 11:29
[2016-08-03 20:00] VITALS: BP 115/76; PULSE 58; RESP 22; TEMP 95.4; O2SAT 95
[2016-08-03] MEDS: MIRTAZAPINE 15 MG TAB PEG SCH (21:00)
[2016-08-04] MEDS: MIDODRINE 5 MG TAB PO SCH ×3 (06:32→17:21)
[2016-08-04 08:00] VITALS: BP 100/63; PULSE 66; RESP 18; TEMP 97.3; O2SAT 96
[2016-08-04] MEDS: LANSOPRAZOLE SOLUTAB 30 MG TAB PEG SCH (08:55)
[2016-08-04] MEDS: ALLOPURINOL 100 MG TAB PEG SCH (08:55)
[2016-08-04] MEDS: CLOTRIMAZOLE 1% CREAM 15 GM TOPICAL SCH ×2 (08:58→20:33)
[2016-08-04] MEDS: FREE WATER G-TUBE SCH (08:58)
--- NOTE | 2016-08-04 10:23 | HHI.PR ---
Subjective Remarks Patient seen and examined today. Patient denies any new complaints. No change in clinical status. Objective Vitals Vital Signs Date Time Temp Pulse Resp B/P Pulse Ox O2 Delivery O2 Flow Rate FiO2 08/04/16 08:00 97.3 66 18 100/63 96 08/03/16 20:00 95.4 58 22 115/76 95 I/O 08/03/16 08/03/16 08/03/16 08/04/16 08/04/16 08/04/16 07:00 15:00 23:00 07:00 15:00 23:00 Intake Total 100 ml 1780 ml Output Total 400 ml 650 ml 250 ml 425 ml Balance -400 ml -550 ml 1530 ml -425 ml Intake Oral 100 ml Tube Feeding 1440 ml Tube Irrigant 240 ml Other 100 ml Output Urine Total 400 ml 650 ml 250 ml 425 ml # Bowel Movements 0 1 1 Objective Remarks GENERAL: Well-developed, well-nourished, in no acute distress. Patient awake and alert HEENT: Head is normocephalic without any lesions or masses noted. Facial features are symmetric. Eyes: Extraocular muscles are intact. Conjunctivae were clear. NECK: Trachea midline no deviation. CARDIAC: Regular rhythm, regular rate. S1/S2 are heard. No murmurs gallops or rubs. LUNGS: Clear to auscultation bilaterally. No wheeze, rhonchi or rales. No use of accessory muscles on inspiration or expiration. ABDOMEN: Soft, nontender. Nondistended. Bowel sounds heard in all 4 quadrants. No organomegaly or masses. Negative rebound, negative guarding, suprapubic catheter in place, PEG tube noted EXTREMITIES: No edema, pulses are equal bilaterally. No cyanosis or clubbing NEUROLOGY: Mood and affect appear appropriate. Cranial nerves II through XII grossly intact. Moving all extremities SKIN: Patient's back has skin breakdown on his back and sacral area. Procedures None Urinary Catheter: No Vascular Central Line Catheter: No A/P Assessment and Plan Weakness: Continue physical therapy Nursing staff to get patient up out of bed at least 3 times daily Dementia with inappropriate behavior, mood disorder improved Patient has been hospitalized for similar events in 2015 Consulted psychiatry for further evaluation, who indicated that this is a frontal lobe dementia Risperdal discontinued at family's request Continue Remeron Parkinson's disease: Patient has dementia and resting tremor. Chronic, stable. GI bleed with presenting of Upper GI bleed, patient with intermittent rectal bleeding: Resolved Hemoglobin continues to remain stable GI was following and reevaluated on 05/04/16 Presumed hemorrhoids, status post Anusol HC for 2 weeks Continue PPI. Protein calorie malnutrition: Improving Consulted dietitian who indicated that patient may be converted to bolus feeding Jevity 1.5, 6 cans per day. 1.5 cans that 0800 and 2000, 1 can at 1100, 1400, 1700 Prealbumin level 24 Ensure Enlive 3 times a day since pudding 3 times a day Hypotension with episodes of hypertension: Stable Blood pressure labile. Continue monitor blood pressure Continue Midodrine. Mild obstructive uropathy: Resolved. Appreciate urology recommendations. Suprapubic catheter in place, last changed 07/31/16. Abdominal pelvis CT 03/06/16 shows resolution of right sided hydronephrosis. Recurrent urinary tract infection Replaced Soto 07/05/16, continue changed monthly Patient with urine cultures with different organisms, likely secondary to suprapubic catheter, continue monitor and treat only if symptomatic Elevated BUN, stable Continue fluid flushes via PEG tube to avoid dehydration. Stage I decubitus ulcer, sacral skin tear: Continue wound care. Palliative care evaluation According to palliative care notes. Family wishes aggressive management, they are expecting him to improve, go to a rehabilitation facility and then improve enough to go home. They are deferring hospice. DVT prophylaxis: SCDs. Avoid chemical prophylaxis secondary to GI bleed. No change present treatment plan Discharge Planning Discharge planning per case management. Case management last documentation indicates that they're requesting [facility] to evaluate for placement Jaguar Walker Aug 04, 2016 10:23
[2016-08-04 20:00] VITALS: BP 134/79; PULSE 66; RESP 20; TEMP 97; O2SAT 96
[2016-08-04] MEDS: MIRTAZAPINE 15 MG TAB PEG SCH (20:33)
[2016-08-05] MEDS: MIDODRINE 5 MG TAB PO SCH ×3 (06:20→16:52)
[2016-08-05 08:00] VITALS: BP 113/78; PULSE 70; RESP 20; TEMP 97.2; O2SAT 93
[2016-08-05] MEDS: FREE WATER G-TUBE SCH (09:00)
--- NOTE | 2016-08-05 09:44 | HHI.PR ---
Subjective Remarks Patient seen and examined today. Lying comfortably in bed, in no distress. No new complaints today. Patient admits to needs being met. Afebrile. Vitals stable. Objective Vitals Vital Signs Date Time Temp Pulse Resp B/P Pulse Ox O2 Delivery O2 Flow Rate FiO2 08/05/16 08:00 97.2 70 20 113/78 93 08/04/16 20:00 97.0 66 20 134/79 96 I/O 08/04/16 08/04/16 08/04/16 08/05/16 08/05/16 08/05/16 07:00 15:00 23:00 07:00 15:00 23:00 Intake Total 0 ml 1900 ml 180 ml Output Total 425 ml 750 ml 350 ml 400 ml Balance -425 ml -750 ml 1550 ml -220 ml Intake Oral 0 ml Tube Feeding 1440 ml Tube Irrigant 360 ml 180 ml Other 100 ml Output Urine Total 425 ml 750 ml 350 ml 400 ml # Bowel Movements 1 2 1 2 Objective Remarks GENERAL: Well-developed, well-nourished, in no acute distress. Patient awake and alert HEENT: Head is normocephalic without any lesions or masses noted. Facial features are symmetric. Eyes: Extraocular muscles are intact. Conjunctivae were clear. NECK: Trachea midline no deviation. CARDIAC: Regular rhythm, regular rate. S1/S2 are heard. No murmurs gallops or rubs. LUNGS: Clear to auscultation bilaterally. No wheeze, rhonchi or rales. No use of accessory muscles on inspiration or expiration. ABDOMEN: Soft, nontender. Nondistended. Bowel sounds heard in all 4 quadrants. No organomegaly or masses. Negative rebound, negative guarding, suprapubic catheter in place, PEG tube noted EXTREMITIES: No edema, pulses are equal bilaterally. No cyanosis or clubbing NEUROLOGY: Mood and affect appear appropriate. Cranial nerves II through XII grossly intact. Moving all extremities SKIN: Patient's back has skin breakdown on his back and sacral area. Procedures None Urinary Catheter: No Vascular Central Line Catheter: No A/P Assessment and Plan Weakness: Continue physical therapy Nursing staff to get patient up out of bed at least 3 times daily Dementia with inappropriate behavior, mood disorder improved Patient has been hospitalized for similar events in 2015 Consulted psychiatry for further evaluation, who indicated that this is a frontal lobe dementia Risperdal discontinued at family's request Continue Remeron Parkinson's disease: Patient has dementia and resting tremor. Chronic, stable. GI bleed with presenting of Upper GI bleed, patient with intermittent rectal bleeding: Resolved Hemoglobin continues to remain stable GI was following and reevaluated on 05/04/16 Presumed hemorrhoids, status post Anusol HC for 2 weeks Continue PPI. Protein calorie malnutrition: Improving Consulted dietitian who indicated that patient may be converted to bolus feeding Jevity 1.5, 6 cans per day. 1.5 cans that 0800 and 2000, 1 can at 1100, 1400, 1700 Prealbumin level 24 Ensure Enlive 3 times a day since pudding 3 times a day Hypotension with episodes of hypertension: Stable Blood pressure labile. Continue monitor blood pressure Continue Midodrine. Mild obstructive uropathy: Resolved. Appreciate urology recommendations. Suprapubic catheter in place, last changed 07/31/16. Abdominal pelvis CT 03/06/16 shows resolution of right sided hydronephrosis. Recurrent urinary tract infection Replaced Soto 07/05/16, continue changed monthly Patient with urine cultures with different organisms, likely secondary to suprapubic catheter, continue monitor and treat only if symptomatic Elevated BUN, stable Continue fluid flushes via PEG tube to avoid dehydration. Stage I decubitus ulcer, sacral skin tear: Continue wound care. Palliative care evaluation According to palliative care notes. Family wishes aggressive management, they are expecting him to improve, go to a rehabilitation facility and then improve enough to go home. They are deferring hospice. DVT prophylaxis: SCDs. Avoid chemical prophylaxis secondary to GI bleed. No change present treatment plan Discharge Planning Discharge planning per case management. Case management last documentation indicates that they're requesting [facility] evaluate for placement Jaguar Walker Aug 05, 2016 09:44
[2016-08-05] MEDS: LANSOPRAZOLE SOLUTAB 30 MG TAB PEG SCH (10:02)
[2016-08-05] MEDS: CLOTRIMAZOLE 1% CREAM 15 GM TOPICAL SCH ×2 (10:02→22:03)
[2016-08-05] MEDS: ALLOPURINOL 100 MG TAB PEG SCH (10:02)
[2016-08-05 20:00] VITALS: BP 115/77; PULSE 83; RESP 20; TEMP 96.7; O2SAT 97
[2016-08-05] MEDS: MIRTAZAPINE 15 MG TAB PEG SCH (21:00)
[2016-08-06] MEDS: MIDODRINE 5 MG TAB PO SCH ×3 (05:45→17:45)
[2016-08-06] MEDS: ACETAMINOPHEN 325 MG TAB PO PRN (05:48)
[2016-08-06 08:00] VITALS: BP 108/88; PULSE 82; RESP 20; TEMP 96.2; O2SAT 97
[2016-08-06] MEDS: ALLOPURINOL 100 MG TAB PEG SCH (08:33)
[2016-08-06] MEDS: LANSOPRAZOLE SOLUTAB 30 MG TAB PEG SCH (08:33)
[2016-08-06] MEDS: CLOTRIMAZOLE 1% CREAM 15 GM TOPICAL SCH ×2 (08:33→21:02)
[2016-08-06] MEDS: FREE WATER G-TUBE SCH (08:33)
--- NOTE | 2016-08-06 12:43 | HHI.PR ---
Subjective Remarks Follow-up for dementia. Patient states he has abdominal pain and left low back pain. States abdominal pain started one hour ago. He denies any fevers or chills. Denies any vomiting. He thinks it may be gas, but nurse indicates patient has been having regular bowel movements. Objective Vitals Vital Signs Date Time Temp Pulse Resp B/P Pulse Ox O2 Delivery O2 Flow Rate FiO2 08/06/16 08:00 96.2 82 20 108/88 97 08/05/16 20:00 96.7 83 20 115/77 97 I/O 08/05/16 08/05/16 08/05/16 08/06/16 08/06/16 08/06/16 07:00 15:00 23:00 07:00 15:00 23:00 Intake Total 180 ml 0 ml 1180 ml 0 ml Output Total 400 ml 600 ml 225 ml 300 ml Balance -220 ml -600 ml 955 ml -300 ml Intake Oral 0 ml 0 ml 0 ml Tube Feeding 1080 ml Tube Irrigant 180 ml Other 100 ml Output Urine Total 400 ml 600 ml 225 ml 300 ml # Bowel Movements 2 0 0 Objective Remarks GENERAL: Well developed male in no apparent distress. CARDIOVASCULAR: Regular rate and rhythm. RESPIRATORY: No accessory muscle use. CTAB. GASTROINTESTINAL: Normoactive bowel sounds. No tenderness around feeding tube. Admits to tenderness over the right upper quadrant and left lower quadrant, but abdomen is soft and nondistended and there is no guarding nor grimace with palpation in these areas. MUSCULOSKELETAL: Patient has no tenderness to palpation over the left low back. NEURO: Awake and alert. Increasing vocal today. Procedures None Urinary Catheter: Yes Assessment to: Continue Soto insert reason: Prolonged Immobilization Vascular Central Line Catheter: No A/P Problem List: (1) Decreased urine output ICD Code: R34 Status: Acute (2) Prerenal azotemia ICD Code: R79.89 Status: Resolved Assessment and Plan 08/06: Abdominal pain but benign exam. Afebrile. Soon after exam patient had BM and pain improved. No workup needed. 07/26 Decreased urine output: Resolved Continue free water flushes 800 mL total daily, confirmed with nurse. Normal WBC count and normal renal function. Bladder scan was performed without retention evident. Intake and output was likely not being tracked properly. Patient has had good urine output documented since yesterday. Upper GI bleeding: Resolved with recurrent rectal bleeding. Hemoglobin stable. GI reevaluated patient on 05/04. Presumed hemorrhoids, s/p Anusol HC for total of 2 weeks. Continue PPI. Protein calorie malnutrition: Improving Consulted dietitian who indicated that patient may be converted to bolus feeding Jevity 1.5 w/ bolus 1.5 cans(360ml) @ 0800 and 2000 and 1-can(240ml) @ 1100, 1400 and 1700. Free Water Flush 100ml before and after each bolus feeding. Ensure Enlive tid and chocolate pudding tid Prealbumin level 25. Patient desired to eat and speech therapy advised puree diet, thin liquids, but patient has not been eating. Hims Manager suggested considering appetite stimulant. This was discussed with attending, but we do not believe this would be beneficial for patient and would add unnecessary risk to the patient. Will continue with tube feeds only. Dementia with inappropriate behavior, mood disorder improved Patient had inappropriate behavior which is resolved now. He has been very appropriate for a long time now. Patient has been hospitalized for similar events in 2014 Consulted psychiatry for further evaluation, who indicated that this is a frontal lobe dementia Risperdal 0.25 mg during the day, Risperdal 0.5 mg at night. [facility]dal was discontinued per [facility] request. [facility] recons[facility]ed and is ok with discontinuation of Risperdal. Probable seborrheic dermatitis: Flaky skin to the face and neck. -Improved s/p one time dose of Ketoconazole 2% shampoo. -Monitor need for further treatments. Chalazion: Persistent nodule R upper eyelid. There is no evidence of preseptal cellulitis. -Warm compresses were applied but it was greater than 2 weeks without significant improvement. -Ophthalmology was consulted and evaluated patient on 03/26. S/p warm compresses and Tobradex 4 times a day OD x 2 weeks. Patient was intermittently compliant with eyedrops. -No worsening. Follow-up outpatient. Hypotension: Blood pressure labile. Continue Midodrine. Patient on max dose. Increase free water flushes as needed. Pre-renal azotemia: Resolved. BUN normal at 18. Stage I decubitus ulcer, sacral skin tear: Continue wound care. Frequent turning of patient. Candidal infection: buttocks affected with satellite lesions to the perineum. -S/p Nystatin -Continue Clotrimazole -07/23: I spoke with wound care nurse who states that fungal rash to buttocks is improving but is now over the patient's back. Apply clotrimazole to back and buttocks. Mild obstructive uropathy: Resolved. Appreciate urology recommendations. Suprapubic catheter to be changed monthly; it was last changed on 07/05/16. Abdominal pelvis CT 03/06/16 shows resolution of right sided hydronephrosis. Urinary tract infection: Urine culture positive for Proteus mirabilis and GBS on 01/20. Patient completed course of antibiotics. Abdominal pelvis CT 03/06 shows decompressed bladder with circumferential bladder wall thickening and intraluminal air possibly indicating cystitis, but the patient had been afebrile with normal WBC count. Urine culture 05/31 with Serratia marcescens, Pseudomonas, and Enterococcus faecalis. Patient was treated with ceftriaxone. Repeat urine culture on 06/04 only reveals contaminants. Weakness: Continue physical therapy Nursing staff to get patient up out of bed at least 3 times daily Palliative care evaluation According to palliative care notes family wishes aggressive management, they are expecting him to improve, go to a rehabilitation facility and then improve enough to go home. They are declining hospice. DVT prophylaxis: SCDs. Avoid chemical prophylaxis secondary to GI bleed. Discharge Planning 08/05: CM requested [facility] to evaluate for long-term placement. CM reached out to [facility] and [place]; awaiting return calls. Madeline Ortez Aug 06, 2016 12:43
[2016-08-06 20:00] VITALS: BP 111/80; PULSE 85; RESP 20; TEMP 95.3; O2SAT 97
[2016-08-06] MEDS: MIRTAZAPINE 15 MG TAB PEG SCH (21:01)
[2016-08-07] MEDS: MIDODRINE 5 MG TAB PO SCH ×3 (06:18→16:41)
[2016-08-07 07:15] VITALS: BP 107/75; PULSE 87; RESP 20; TEMP 96.3; O2SAT 98
[2016-08-07] MEDS: CLOTRIMAZOLE 1% CREAM 15 GM TOPICAL SCH ×2 (09:00→21:11)
[2016-08-07] MEDS: FREE WATER G-TUBE SCH (09:00)
[2016-08-07] MEDS: LANSOPRAZOLE SOLUTAB 30 MG TAB PEG SCH (09:36)
[2016-08-07] MEDS: ALLOPURINOL 100 MG TAB PEG SCH (09:36)
--- NOTE | 2016-08-07 11:39 | HHI.PR ---
Subjective Remarks Follow-up for dementia. No acute complaints. No change in clinical status. Objective Vitals Vital Signs Date Time Temp Pulse Resp B/P Pulse Ox O2 Delivery O2 Flow Rate FiO2 08/06/16 20:00 95.3 85 20 111/80 97 I/O 08/06/16 08/06/16 08/06/16 08/07/16 08/07/16 08/07/16 07:00 15:00 23:00 07:00 15:00 23:00 Intake Total 0 ml Output Total 300 ml 250 ml 250 ml 150 ml Balance -300 ml -250 ml -250 ml -150 ml Intake Oral 0 ml Output Urine Total 300 ml 250 ml 250 ml 150 ml # Bowel Movements 0 1 2 Objective Remarks GENERAL: Well developed male in no apparent distress sleeping when I enter the room. CARDIOVASCULAR: Regular rate and rhythm. RESPIRATORY: No accessory muscle use. CTAB. GASTROINTESTINAL: Abdomen is soft, non-tender, nondistended. NEURO: Awake and alert. Procedures None Urinary Catheter: Yes Assessment to: Continue Soto insert reason: Prolonged Immobilization Date of Insertion: Jul 31, 2016 Vascular Central Line Catheter: No A/P Problem List: (1) Decreased urine output ICD Code: R34 Status: Acute (2) Prerenal azotemia ICD Code: R79.89 Status: Resolved Assessment and Plan 08/07: RN later informed me that patient is now passing blood clots in his urine and urine is pink tinged. Patient is not on anticoagulation. Will obtain CBC, BMP, and UA. 07/26 Decreased urine output: Resolved Continue free water flushes 800 mL total daily, confirmed with nurse. Normal WBC count and normal renal function. Bladder scan was performed without retention evident. Intake and output was likely not being tracked properly. Patient has had good urine output documented since yesterday. Upper GI bleeding: Resolved with recurrent rectal bleeding. Hemoglobin stable. GI reevaluated patient on 05/04. Presumed hemorrhoids, s/p Anusol HC for total of 2 weeks. Continue PPI. Protein calorie malnutrition: Improving Consulted dietitian who indicated that patient may be converted to bolus feeding Jevity 1.5 w/ bolus 1.5 cans(360ml) @ 0800 and 2000 and 1-can(240ml) @ 1100, 1400 and 1700. Free Water Flush 100ml before and after each bolus feeding. Ensure Enlive tid and chocolate pudding tid Prealbumin level 25. Patient desired to eat and speech therapy advised puree diet, thin liquids, but patient has not been eating. Wood Lather suggested considering appetite stimulant. This was discussed with attending, but we do not believe this would be beneficial for patient and would add unnecessary risk to the patient. Will continue with tube feeds only. Dementia with inappropriate behavior, mood disorder improved Patient had inappropriate behavior which is resolved now. He has been very appropriate for a long time now. Patient has been hospitalized for similar events in 2015 Consulted psychiatry for further evaluation, who indicated that this is a frontal lobe dementia Risperdal 0.25 mg during the day, Risperdal 0.5 mg at night. Risperdal was discontinued per POA request. Continue Remeron Psychiatry was reconsulted and is ok with discontinuation of Risperdal. Probable seborrheic dermatitis: Flaky skin to the face and neck. -Improved s/p one time dose of Ketoconazole 2% shampoo. -Monitor need for further treatments. Chalazion: Persistent nodule R upper eyelid. There is no evidence of preseptal cellulitis. -Warm compresses were applied but it was greater than 2 weeks without significant improvement. -Ophthalmology was consulted and evaluated patient on 03/26. S/p warm compresses and Tobradex 4 times a day OD x 2 weeks. Patient was intermittently compliant with eyedrops. -No worsening. Follow-up outpatient. Hypotension: Blood pressure labile. Continue Midodrine. Patient on max dose. Increase free water flushes as needed. Pre-renal azotemia: Resolved. BUN normal at 18. Stage I decubitus ulcer, sacral skin tear: Continue wound care. Frequent turning of patient. Candidal infection: buttocks affected with satellite lesions to the perineum. -S/p Nystatin -Continue Clotrimazole -07/23: I spoke with wound care nurse who states that fungal rash to buttocks is improving but is now over the patient's back. Apply clotrimazole to back and buttocks. Mild obstructive uropathy: Resolved. Appreciate urology recommendations. Suprapubic catheter to be changed monthly; it was last changed on 07/31/16. Abdominal pelvis CT 03/06/16 shows resolution of right sided hydronephrosis. Urinary tract infection: Urine culture positive for Proteus mirabilis and GBS on 01/20. Patient completed course of antibiotics. Abdominal pelvis CT 03/06 shows decompressed bladder with circumferential bladder wall thickening and intraluminal air possibly indicating cystitis, but the patient had been afebrile with normal WBC count. Urine culture 05/31 with Serratia marcescens, Pseudomonas, and Enterococcus faecalis. Patient was treated with ceftriaxone. Repeat urine culture on 06/04 only reveals contaminants. Weakness: Continue physical therapy Nursing staff to get patient up out of bed at least 3 times daily Palliative care evaluation According to palliative care notes family wishes aggressive management, they are expecting him to improve, go to a rehabilitation facility and then improve enough to go home. They are declining hospice. DVT prophylaxis: SCDs. Avoid chemical prophylaxis secondary to GI bleed. Discharge Planning 08/05: CM requested [place] [facility] to evaluate for long-term placement. CM reached out to [facility] and [place]; awaiting return calls. Madeline Ortez Aug 07, 2016 11:39
[2016-08-07 17:16] LABS: BLOOD, URINE LARGE (NEG); GLUCOSE,URINE NEG (NEG); KETONE, URINE TRACE mg/dL (NEG)
[2016-08-07 17:19] LABS: NITRITE,URINE POS (NEG)
[2016-08-07 17:21] LABS: METHOD OF COLLECTION SUPRAPUBIC; URINE COLOR YELLOW (YELLW/STRAW)
[2016-08-07 17:22] LABS: RBC, URINE INNUM /hpf (0-3); RENAL EPITHELIAL CELLS 0-5 /hpf; WBC, URINE 100-200 /hpf (0-5)
[2016-08-07 17:23] LABS: BACTERIA, URINE MOD /hpf; COMMENT (UR) CULTURE INDICATED; CULTURE IF INDICATED CULTURE INDICATED
[2016-08-07 17:32] LABS: AUTOMATED NEUTROPHIL # 3.4 TH/MM3 (1.8-7.7); BASOPHIL # 0.1 TH/MM3 (0-0.2); BASOPHIL % 1.3 % (0.0-2.0); EOSINOPHIL # 0.7 TH/MM3 (0-0.4); EOSINOPHIL % 8.8 % (0.0-4.0); HEMO FLAGS DIFF FINAL; LYMPH % 34.5 % (9.0-44.0); LYMPHOCYTE # 2.6 TH/MM3 (1.0-4.8); MEAN CELL VOLUME 86.7 FL (80.0-100.0); MEAN CORPUSCULAR HEMOGLOBIN 28.4 PG (27.0-34.0); MEAN CORPUSCULAR HGB CONC 32.8 % (32.0-36.0); MONO % 9.4 % (0.0-8.0); PLATELET COUNT 164 TH/MM3 (150-450); RED BLOOD COUNT 5.42 MIL/MM3 (4.50-5.90); RED CELL DISTRIBUTION WIDTH 15.4 % (11.6-17.2); WHITE BLOOD COUNT 7.5 TH/MM3 (4.0-11.0)
[2016-08-07 17:49] LABS: POTASSIUM 3.7 MEQ/L (3.5-5.1)
[2016-08-07 18:04] VITALS: BP 114/69; PULSE 80; RESP 17; TEMP 96.8; O2SAT 95
[2016-08-07 20:00] VITALS: BP 89/61; PULSE 98; RESP 19; TEMP 96.7; O2SAT 97
[2016-08-07] MEDS: MIRTAZAPINE 15 MG TAB PEG SCH (21:11)
[2016-08-08 04:00] VITALS: BP 96/67; PULSE 80; RESP 19; TEMP 97; O2SAT 97
[2016-08-08] MEDS: MIDODRINE 5 MG TAB PO SCH ×3 (06:07→18:01)
[2016-08-08 07:46] LABS: AUTOMATED NEUTROPHIL # 4.3 TH/MM3 (1.8-7.7); BASOPHIL % 0.6 % (0.0-2.0); EOSINOPHIL # 0.7 TH/MM3 (0-0.4); HEMATOCRIT 47.3 % (39.0-51.0); HEMO FLAGS DIFF FINAL; LYMPHOCYTE # 2.7 TH/MM3 (1.0-4.8); MEAN CORPUSCULAR HEMOGLOBIN 27.9 PG (27.0-34.0); MEAN CORPUSCULAR HGB CONC 31.8 % (32.0-36.0); MONO % 6.8 % (0.0-8.0); NEUT % 50.6 % (16.0-70.0); PLATELET COUNT 201 TH/MM3 (150-450); RED BLOOD COUNT 5.38 MIL/MM3 (4.50-5.90); RED CELL DISTRIBUTION WIDTH 16.3 % (11.6-17.2); WHITE BLOOD COUNT 8.3 TH/MM3 (4.0-11.0)
[2016-08-08 08:00] VITALS: BP 105/70; PULSE 68; RESP 19; TEMP 96.3; O2SAT 98
--- NOTE | 2016-08-08 09:38 | HHI.PR ---
Subjective Remarks Follow-up for dementia. RN had informed me yesterday that the patient had blood clots in his urine. That has resolved. The patient has no acute complaints this morning. He denies any fevers or chills. Denies any abdominal pain or vomiting. Objective Vitals Vital Signs Date Time Temp Pulse Resp B/P Pulse Ox O2 Delivery O2 Flow Rate FiO2 08/08/16 08:00 96.3 68 19 105/70 98 08/08/16 04:00 97.0 80 19 96/67 97 08/07/16 20:00 96.7 98 19 89/61 97 08/07/16 18:04 96.8 80 17 114/69 95 I/O 08/07/16 08/07/16 08/07/16 08/08/16 08/08/16 08/08/16 07:00 15:00 23:00 07:00 15:00 23:00 Intake Total 540 ml Output Total 150 ml 175 ml 200 ml 300 ml Balance -150 ml -175 ml 340 ml -300 ml Tube Feeding 360 ml Other 180 ml Output Urine Total 150 ml 175 ml 200 ml 300 ml # Bowel Movements 2 1 Result Diagram: 08/08/16 0708 08/07/16 1720 Objective Remarks GENERAL: Well developed male in no apparent distress sleeping when I enter the room. CARDIOVASCULAR: Regular rate and rhythm. RESPIRATORY: No accessory muscle use. CTAB. GASTROINTESTINAL: Abdomen is soft, non-tender, nondistended. NEURO: Awake and alert. Urine in bag is concentrated; no hematuria. Procedures None Urinary Catheter: Yes Assessment to: Continue Soto insert reason: Obstruction/Retention Date of Insertion: Jul 31, 2016 Vascular Central Line Catheter: No A/P Problem List: (1) Decreased urine output ICD Code: R34 Status: Acute (2) Prerenal azotemia ICD Code: R79.89 Status: Acute (3) Hematuria ICD Code: R31.9 Status: Acute Assessment and Plan Hematuria: 08/07: RN informed me that patient is passing blood clots in his urine and urine is pink tinged. -Patient is not on anticoagulation. -Hemoglobin normal. -Creatinine is normal. -UA 08/07 with infection evident, but also with innumerable RBCs, but urine sample not grossly bloody. Urinary tract infection: Urine culture positive for Proteus mirabilis and GBS on 01/20. Patient completed course of antibiotics. Abdominal pelvis CT 03/06 shows decompressed bladder with circumferential bladder wall thickening and intraluminal air possibly indicating cystitis, but the patient had been afebrile with normal WBC count. Urine culture 05/31 with Serratia marcescens, Pseudomonas, and Enterococcus faecalis. Patient was started on ceftriaxone. Repeat urine culture on 06/04 only reveals contaminants. 4/6: UA 4/5 with infection evident. One dose of antibiotics was ordered yesterday empirically due to hematuria and decreased urine output, but patient refused. Patient remains afebrile. CBC with normal white blood cell count. Hematuria has resolved. Urine culture pending; will await results prior to starting any antibiotics. Upper GI bleeding: Resolved with recurrent rectal bleeding. Hemoglobin stable. GI reevaluated patient on 05/04. Presumed hemorrhoids, s/p Anusol HC for total of 2 weeks. Continue PPI. Protein calorie malnutrition: Improving Consulted dietitian who indicated that patient may be converted to bolus feeding Jevity 1.5 w/ bolus 1.5 cans(360ml) @ 0800 and 2000 and 1-can(240ml) @ 1100, 1400 and 1700. Free Water Flush 100ml before and after each bolus feeding. Ensure Enlive tid and chocolate pudding tid Prealbumin level 25. Patient desired to eat and speech therapy advised puree diet, thin liquids, but patient has not been eating. Paint Mixer Hand suggested considering appetite stimulant. This was discussed with attending, but we do not believe this would be beneficial for patient and would add unnecessary risk to the patient. Will continue with tube feeds only. Dementia with inappropriate behavior, mood disorder improved Patient had inappropriate behavior which is resolved now. He has been very appropriate for a long time now. Patient has been hospitalized for similar events in 2015 Consulted psychiatry for further evaluation, who indicated that this is a frontal lobe dementia Risperdal 0.25 mg during the day, Risperdal 0.5 mg at night. Risperdal was discontinued per POA request. Continue Remeron Psychiatry was reconsulted and is ok with discontinuation of Risperdal. Probable seborrheic dermatitis: Flaky skin to the face and neck. -Improved s/p one time dose of Ketoconazole 2% shampoo. -Monitor need for further treatments. Chalazion: Persistent nodule R upper eyelid. There is no evidence of preseptal cellulitis. -Warm compresses were applied but it was greater than 2 weeks without significant improvement. -Ophthalmology was consulted and evaluated patient on 03/26. S/p warm compresses and Tobradex 4 times a day OD x 2 weeks. Patient was intermittently compliant with eyedrops. -No worsening. Follow-up outpatient. Hypotension: Blood pressure labile. Continue Midodrine. Patient on max dose. Increase free water flushes as needed. Pre-renal azotemia: BUN mildly elevated at 22. Continue free water flushes Stage I decubitus ulcer, sacral skin tear: Continue wound care. Frequent turning of patient. Candidal infection: buttocks affected with satellite lesions to the perineum. -S/p Nystatin -Continue Clotrimazole -07/23: I spoke with wound care nurse who states that fungal rash to buttocks is improving but is now over the patient's back. Apply clotrimazole to back and buttocks. Mild obstructive uropathy: Resolved. Appreciate urology recommendations. Suprapubic catheter to be changed monthly; it was last changed on 07/31/16. Abdominal pelvis CT 03/06/16 shows resolution of right sided hydronephrosis. Weakness: Continue physical therapy Nursing staff to get patient up out of bed at least 3 times daily Palliative care evaluation According to palliative care notes family wishes aggressive management, they are expecting him to improve, go to a rehabilitation facility and then improve enough to go home. They are declining hospice. DVT prophylaxis: SCDs. Avoid chemical prophylaxis secondary to GI bleed. Discharge Planning 08/05: CM requested [facility] to evaluate for long-term placement. CM reached out to [facility] and [place]; awaiting return calls. Madeline Ortez Aug 08, 2016 09:38
[2016-08-08] MEDS: ALLOPURINOL 100 MG TAB PEG SCH (09:42)
[2016-08-08] MEDS: LANSOPRAZOLE SOLUTAB 30 MG TAB PEG SCH (09:42)
[2016-08-08] MEDS: CLOTRIMAZOLE 1% CREAM 15 GM TOPICAL SCH ×2 (09:42→21:18)
[2016-08-08] MEDS: FREE WATER G-TUBE SCH (09:43)
[2016-08-08 20:00] VITALS: BP 95/52; PULSE 78; RESP 16; TEMP 98.7; O2SAT 93
[2016-08-08] MEDS: MIRTAZAPINE 15 MG TAB PEG SCH (21:18)
[2016-08-09] MEDS: MIDODRINE 5 MG TAB PO SCH ×3 (06:02→17:14)
[2016-08-09 08:00] VITALS: BP 101/69; PULSE 73; RESP 18; TEMP 96.3; O2SAT 96
[2016-08-09] MEDS: FREE WATER G-TUBE SCH (08:13)
[2016-08-09] MEDS: LANSOPRAZOLE SOLUTAB 30 MG TAB PEG SCH (08:13)
[2016-08-09] MEDS: CLOTRIMAZOLE 1% CREAM 15 GM TOPICAL SCH ×2 (08:13→20:38)
[2016-08-09] MEDS: ALLOPURINOL 100 MG TAB PEG SCH (08:14)
--- NOTE | 2016-08-09 10:44 | HHI.PR ---
Subjective Remarks Follow-up for dementia. Patient denies any fevers or chills. Denies any abdominal pain. Objective Vitals Vital Signs Date Time Temp Pulse Resp B/P Pulse Ox O2 Delivery O2 Flow Rate FiO2 08/09/16 08:00 96.3 73 18 101/69 96 08/08/16 20:00 98.7 78 16 95/52 93 I/O 08/08/16 08/08/16 08/08/16 08/09/16 08/09/16 08/09/16 07:00 15:00 23:00 07:00 15:00 23:00 Intake Total 1100 ml 980 ml Output Total 300 ml 600 ml 175 ml 200 ml Balance -300 ml 500 ml 805 ml -200 ml Intake Oral 0 ml Tube Feeding 600 ml 480 ml Other 500 ml 500 ml Output Urine Total 300 ml 600 ml 175 ml 200 ml # Bowel Movements 2 1 0 Result Diagram: 08/08/16 0708 08/07/16 1720 Objective Remarks GENERAL: Well developed male in no apparent distress. CARDIOVASCULAR: Regular rate and rhythm. RESPIRATORY: No accessory muscle use. CTAB. GASTROINTESTINAL: Abdomen is soft, non-tender, nondistended. NEURO: Awake and alert. Patient knows he is at [place] but he is not oriented to self, city, month, year, or president. Procedures None Urinary Catheter: Yes Assessment to: Continue Soto insert reason: Obstruction/Retention Date of Insertion: Jul 31, 2016 Vascular Central Line Catheter: No A/P Problem List: (1) Decreased urine output ICD Code: R34 Status: Acute (2) Prerenal azotemia ICD Code: R79.89 Status: Acute (3) Hematuria ICD Code: R31.9 Status: Acute Assessment and Plan Hematuria: Resolved. blood clots in his urine and urine is pink tinged. -Patient is not on anticoagulation. -Hemoglobin normal. -Creatinine is normal. -UA 4/5 with innumerable RBCs, but urine sample not grossly bloody. Urinary tract infection: Urine culture positive for Proteus mirabilis and GBS on 01/20. Patient completed course of antibiotics. Abdominal pelvis CT 03/06 shows decompressed bladder with circumferential bladder wall thickening and intraluminal air possibly indicating cystitis, but the patient had been afebrile with normal WBC count. Urine culture 05/31 with Serratia marcescens, Pseudomonas, and Enterococcus faecalis. Patient was started on ceftriaxone. Repeat urine culture on 06/04 only reveals contaminants. 08/08: UA 08/07 with infection evident. One dose of antibiotics was ordered yesterday empirically due to hematuria and decreased urine output, but patient refused. 08/09: Preliminary urine culture with group D enterococcus and gram-negative rods. Patient remains afebrile. CBC with normal white blood cell count. Hematuria has resolved. Discussed with Dr. Brenner. We agree patient is likely colonized or contaminated. Will not treat for UTI unless patient becomes febrile or has elevated white blood cell. Mild obstructive uropathy: Resolved. Appreciate urology recommendations. Suprapubic catheter to be changed monthly; it was last changed on 07/31/16. Abdominal pelvis CT 03/06/16 shows resolution of right sided hydronephrosis. Upper GI bleeding: Resolved with recurrent rectal bleeding. Hemoglobin stable. GI reevaluated patient on 05/04. Presumed hemorrhoids, s/p Anusol HC for total of 2 weeks. Continue PPI. Protein calorie malnutrition: Improving Consulted dietitian who indicated that patient may be converted to bolus feeding Jevity 1.5 w/ bolus 1.5 cans(360ml) @ 0800 and 2000 and 1-can(240ml) @ 1100, 1400 and 1700. Free Water Flush 100ml before and after each bolus feeding. Ensure Enlive tid and chocolate pudding tid Prealbumin level 25. Patient desired to eat and speech therapy advised puree diet, thin liquids, but patient has not been eating. Deputy Court suggested considering appetite stimulant. This was discussed with attending, but we do not believe this would be beneficial for patient and would add unnecessary risk to the patient. Will continue with tube feeds only. Dementia with inappropriate behavior, mood disorder improved Patient had inappropriate behavior which is resolved now. He has been very appropriate for a long time now. Patient has been hospitalized for similar events in 2015 Consulted psychiatry for further evaluation, who indicated that this is a frontal lobe dementia Risperdal 0.25 mg during the day, Risperdal 0.5 mg at night. Risperdal was discontinued per POA request. Continue Remeron Psychiatry was reconsulted and is ok with discontinuation of Risperdal. Probable seborrheic dermatitis: Flaky skin to the face and neck. -Improved s/p one time dose of Ketoconazole 2% shampoo. -Monitor need for further treatments. Chalazion: Persistent nodule R upper eyelid. There is no evidence of preseptal cellulitis. -Warm compresses were applied but it was greater than 2 weeks without significant improvement. -Ophthalmology was consulted and evaluated patient on 03/26. S/p warm compresses and Tobradex 4 times a day OD x 2 weeks. Patient was intermittently compliant with eyedrops. -No worsening. Follow-up outpatient. Hypotension: Blood pressure labile. Continue Midodrine. Patient on max dose. Increase free water flushes as needed. Pre-renal azotemia: BUN mildly elevated at 22. Continue free water flushes Stage I decubitus ulcer, sacral skin tear: Continue wound care. Frequent turning of patient. Candidal infection: buttocks affected with satellite lesions to the perineum. -S/p Nystatin -Continue Clotrimazole -07/23: I spoke with wound care nurse who states that fungal rash to buttocks is improving but is now over the patient's back. Apply clotrimazole to back and buttocks. Weakness: Continue physical therapy Nursing staff to get patient up out of bed at least 3 times daily Palliative care evaluation According to palliative care notes family wishes aggressive management, they are expecting him to improve, go to a rehabilitation facility and then improve enough to go home. They are declining hospice. DVT prophylaxis: SCDs. Avoid chemical prophylaxis secondary to GI bleed. Discharge Planning 08/05: CM requested [facility] to evaluate for long-term placement. CM reached out to [facility] and [place]; awaiting return calls. Madeline Ortez Aug 09, 2016 10:44
[2016-08-09 20:00] VITALS: BP 103/60; PULSE 72; RESP 18; TEMP 98.6; O2SAT 95
[2016-08-09] MEDS: MIRTAZAPINE 15 MG TAB PEG SCH (20:38)
[2016-08-10] MEDS: MIDODRINE 5 MG TAB PO SCH ×3 (06:03→17:23)
[2016-08-10 08:00] VITALS: BP 106/67; PULSE 71; RESP 17; TEMP 97.2; O2SAT 96
[2016-08-10] MEDS: CLOTRIMAZOLE 1% CREAM 15 GM TOPICAL SCH ×2 (08:42→21:52)
[2016-08-10] MEDS: LANSOPRAZOLE SOLUTAB 30 MG TAB PEG SCH (08:42)
[2016-08-10] MEDS: FREE WATER G-TUBE SCH (08:42)
[2016-08-10] MEDS: ALLOPURINOL 100 MG TAB PEG SCH (08:42)
--- NOTE | 2016-08-10 12:22 | HHI.PR ---
Subjective Remarks Follow-up for dementia. No acute complaints. Objective Vitals Vital Signs Date Time Temp Pulse Resp B/P Pulse Ox O2 Delivery O2 Flow Rate FiO2 08/10/16 08:00 97.2 71 17 106/67 96 08/09/16 20:00 98.6 72 18 103/60 95 I/O 08/09/16 08/09/16 08/09/16 08/10/16 08/10/16 08/10/16 07:00 15:00 23:00 07:00 15:00 23:00 Intake Total 0 ml 0 ml 1180 ml Output Total 200 ml 650 ml 200 ml 225 ml Balance -200 ml -650 ml -200 ml -225 ml 1180 ml Intake Oral 0 ml 0 ml Tube Feeding 1080 ml Other 100 ml Output Urine Total 200 ml 650 ml 200 ml 225 ml # Bowel Movements 0 1 1 1 Result Diagram: 08/08/16 0708 08/07/16 1720 Objective Remarks GENERAL: Well developed male in no apparent distress. CARDIOVASCULAR: Regular rate and rhythm. RESPIRATORY: No accessory muscle use. CTAB. GASTROINTESTINAL: Abdomen is soft, non-tender, nondistended. NEURO: Awake and alert. Procedures None Urinary Catheter: Yes Assessment to: Continue Soto insert reason: Obstruction/Retention Date of Insertion: Jul 31, 2016 Vascular Central Line Catheter: No A/P Problem List: (1) Decreased urine output ICD Code: R34 Status: Acute (2) Prerenal azotemia ICD Code: R79.89 Status: Acute (3) Hematuria ICD Code: R31.9 Status: Acute Assessment and Plan Hematuria: Resolved. blood clots in his urine and urine is pink tinged. -Patient is not on anticoagulation. -Hemoglobin normal. -Creatinine is normal. -UA 4/5 with innumerable RBCs, but urine sample not grossly bloody. Urinary tract infection: Urine culture positive for Proteus mirabilis and GBS on 01/20. Patient completed course of antibiotics. Abdominal pelvis CT 03/06 shows decompressed bladder with circumferential bladder wall thickening and intraluminal air possibly indicating cystitis, but the patient had been afebrile with normal WBC count. Urine culture 05/31 with Serratia marcescens, Pseudomonas, and Enterococcus faecalis. Patient was started on ceftriaxone. Repeat urine culture on 06/04 only reveals contaminants. 08/08: UA 4/5 with infection evident. One dose of antibiotics was ordered yesterday empirically due to hematuria and decreased urine output, but patient refused. 08/10: Final urine culture with Enterococcus faecalis and Pseudomonas Aeruginosa similar to previous culture on 05/31. Patient remains afebrile. CBC with normal white blood cell count. Hematuria has resolved. Discussed with Dr. Brenner. We agree patient is likely colonized or urine is contaminated. Will not treat for UTI unless patient becomes febrile or has elevated white blood cell. Mild obstructive uropathy: Resolved. Appreciate urology recommendations. Suprapubic catheter to be changed monthly; it was last changed on 07/31/16. Abdominal pelvis CT 03/06/16 shows resolution of right sided hydronephrosis. Upper GI bleeding: Resolved with recurrent rectal bleeding. Hemoglobin stable. GI reevaluated patient on 05/04. Presumed hemorrhoids, s/p Anusol HC for total of 2 weeks. Continue PPI. Protein calorie malnutrition: Improving Consulted dietitian who indicated that patient may be converted to bolus feeding Jevity 1.5 w/ bolus 1.5 cans(360ml) @ 0800 and 2000 and 1-can(240ml) @ 1100, 1400 and 1700. Free Water Flush 100ml before and after each bolus feeding. Ensure Enlive tid and chocolate pudding tid Prealbumin level 25. Patient desired to eat and speech therapy advised puree diet, thin liquids, but patient has not been eating. Lathe Scalper Operator suggested considering appetite stimulant. This was discussed with attending, but we do not believe this would be beneficial for patient and would add unnecessary risk to the patient. Will continue with tube feeds only. Dementia with inappropriate behavior, mood disorder improved Patient had inappropriate behavior which is resolved now. He has been very appropriate for a long time now. Patient has been hospitalized for similar events in 2015 Consulted psychiatry for further evaluation, who indicated that this is a frontal lobe dementia Risperdal 0.25 mg during the day, Risperdal 0.5 mg at night. Risperdal was discontinued per POA request. Continue Remeron Psychiatry was reconsulted and is ok with discontinuation of Risperdal. Probable seborrheic dermatitis: Flaky skin to the face and neck. -Improved s/p one time dose of Ketoconazole 2% shampoo. -Monitor need for further treatments. Chalazion: Persistent nodule R upper eyelid. There is no evidence of preseptal cellulitis. -Warm compresses were applied but it was greater than 2 weeks without significant improvement. -Ophthalmology was consulted and evaluated patient on 03/26. S/p warm compresses and Tobradex 4 times a day OD x 2 weeks. Patient was intermittently compliant with eyedrops. -No worsening. Follow-up outpatient. Hypotension: Blood pressure labile. Continue Midodrine. Patient on max dose. Increase free water flushes as needed. Pre-renal azotemia: BUN mildly elevated at 22. Continue free water flushes Stage I decubitus ulcer, sacral skin tear: Continue wound care. Frequent turning of patient. Candidal infection: buttocks affected with satellite lesions to the perineum. -S/p Nystatin -Continue Clotrimazole -07/23: I spoke with wound care nurse who states that fungal rash to buttocks is improving but is now over the patient's back. Apply clotrimazole to back and buttocks. -08/10: Rash improved per nurse but still present; will continue clotrimazole for now but hopefully d/c soon. Weakness: Continue physical therapy Nursing staff to get patient up out of bed at least 3 times daily Palliative care evaluation According to palliative care notes family wishes aggressive management, they are expecting him to improve, go to a rehabilitation facility and then improve enough to go home. They are declining hospice. DVT prophylaxis: SCDs. Avoid chemical prophylaxis secondary to GI bleed. Discharge Planning 08/05: CM requested [facility] to evaluate for long-term placement. CM reached out to [facility] and [place]; awaiting return calls. Madeline Ortez Aug 10, 2016 12:22
[2016-08-10 20:00] VITALS: BP 115/70; PULSE 65; RESP 19; TEMP 96.3; O2SAT 96
[2016-08-10] MEDS: MIRTAZAPINE 15 MG TAB PEG SCH (21:51)
[2016-08-11] MEDS: MIDODRINE 5 MG TAB PO SCH ×3 (06:00→16:47)
[2016-08-11 08:00] VITALS: BP 141/92; PULSE 71; RESP 17; TEMP 97; O2SAT 96
[2016-08-11] MEDS: CLOTRIMAZOLE 1% CREAM 15 GM TOPICAL SCH ×2 (08:22→20:34)
[2016-08-11] MEDS: LANSOPRAZOLE SOLUTAB 30 MG TAB PEG SCH (08:22)
[2016-08-11] MEDS: ALLOPURINOL 100 MG TAB PEG SCH (08:22)
[2016-08-11] MEDS: FREE WATER G-TUBE SCH (08:23)
--- NOTE | 2016-08-11 10:03 | HHI.PR ---
Subjective Remarks Follow-up for dementia. No acute complaints. Objective Vitals Vital Signs Date Time Temp Pulse Resp B/P Pulse Ox O2 Delivery O2 Flow Rate FiO2 08/11/16 08:00 97.0 71 17 141/92 96 08/10/16 20:00 96.3 65 19 115/70 96 I/O 08/10/16 08/10/16 08/10/16 08/11/16 08/11/16 08/11/16 07:00 15:00 23:00 07:00 15:00 23:00 Intake Total 0 ml 1180 ml Output Total 225 ml 250 ml 450 ml 250 ml Balance -225 ml 930 ml -450 ml -250 ml Intake Oral 0 ml Tube Feeding 1080 ml Other 100 ml Output Urine Total 225 ml 250 ml 450 ml 250 ml # Bowel Movements 1 1 1 2 Result Diagram: 08/08/16 0708 08/07/16 1720 Objective Remarks GENERAL: Well developed male in no apparent distress. CARDIOVASCULAR: Regular rate and rhythm. RESPIRATORY: No accessory muscle use. CTAB. GASTROINTESTINAL: Abdomen is soft, non-tender, nondistended. NEURO: Awake and alert. Procedures None Urinary Catheter: Yes Assessment to: Continue Soto insert reason: Prolonged Immobilization Date of Insertion: Jul 31, 2016 Vascular Central Line Catheter: No A/P Problem List: (1) Decreased urine output ICD Code: R34 Status: Acute (2) Prerenal azotemia ICD Code: R79.89 Status: Acute (3) Hematuria ICD Code: R31.9 Status: Acute Assessment and Plan Hematuria: Resolved. blood clots in his urine and urine is pink tinged. -Patient is not on anticoagulation. -Hemoglobin normal. -Creatinine is normal. -UA 4/5 with innumerable RBCs, but urine sample not grossly bloody. Urinary tract infection: Urine culture positive for Proteus mirabilis and GBS on 01/20. Patient completed course of antibiotics. Abdominal pelvis CT 03/06 shows decompressed bladder with circumferential bladder wall thickening and intraluminal air possibly indicating cystitis, but the patient had been afebrile with normal WBC count. Urine culture 05/31 with Serratia marcescens, Pseudomonas, and Enterococcus faecalis. Patient was started on ceftriaxone. Repeat urine culture on 06/04 only reveals contaminants. 08/08: UA 4/5 with infection evident. One dose of antibiotics was ordered yesterday empirically due to hematuria and decreased urine output, but patient refused. 08/10: Final urine culture with Enterococcus faecalis and Pseudomonas Aeruginosa similar to previous culture on 05/31. Patient remains afebrile. CBC with normal white blood cell count. Hematuria has resolved. Discussed with Dr. Brenner. We agree patient is likely colonized or urine is contaminated. Will not treat for UTI unless patient becomes febrile or has elevated white blood cell. Mild obstructive uropathy: Resolved. Appreciate urology recommendations. Suprapubic catheter to be changed monthly; it was last changed on 07/31/16. Abdominal pelvis CT 03/06/16 shows resolution of right sided hydronephrosis. Upper GI bleeding: Resolved with recurrent rectal bleeding. Hemoglobin stable. GI reevaluated patient on 05/04. Presumed hemorrhoids, s/p Anusol HC for total of 2 weeks. Continue PPI. Protein calorie malnutrition: Improving Consulted dietitian who indicated that patient may be converted to bolus feeding Jevity 1.5 w/ bolus 1.5 cans(360ml) @ 0800 and 2000 and 1-can(240ml) @ 1100, 1400 and 1700. Free Water Flush 100ml before and after each bolus feeding. Ensure Enlive tid and chocolate pudding tid Prealbumin level 25. Patient desired to eat and speech therapy advised puree diet, thin liquids, but patient has not been eating. [employer] suggested considering appetite stimulant. This was discussed with attending, but we do not believe this would be beneficial for patient and would add unnecessary risk to the patient. Will continue with tube feeds only. Dementia with inappropriate behavior, mood disorder improved Patient had inappropriate behavior which is resolved now. He has been very appropriate for a long time now. Patient has been hospitalized for similar events in 2015 Consulted psychiatry for further evaluation, who indicated that this is a frontal lobe dementia Risperdal 0.25 mg during the day, Risperdal 0.5 mg at night. Risperdal was discontinued per POA request. Continue [facility] Psychiatry was reconsulted and is ok with discontinuation of Risperdal. Probable seborrheic dermatitis: Flaky skin to the face and neck. -Improved s/p one time dose of Ketoconazole 2% shampoo. -Monitor need for further treatments. Chalazion: Persistent nodule R upper eyelid. There is no evidence of preseptal cellulitis. -Warm compresses were applied but it was greater than 2 weeks without significant improvement. -Ophthalmology was consulted and evaluated patient on 03/26. S/p warm compresses and Tobradex 4 times a day OD x 2 weeks. Patient was intermittently compliant with eyedrops. -No worsening. Follow-up outpatient. Hypotension: Blood pressure labile. Continue Midodrine. Patient on max dose. Increase free water flushes as needed. Pre-renal azotemia: BUN mildly elevated at 22. Continue free water flushes Stage I decubitus ulcer, sacral skin tear: Continue wound care. Frequent turning of patient. Candidal infection: buttocks affected with satellite lesions to the perineum. -S/p Nystatin -Continue Clotrimazole -07/23: I spoke with wound care nurse who states that fungal rash to buttocks is improving but is now over the patient's back. Apply clotrimazole to back and buttocks. -08/10: Rash improved per nurse but still present; will continue clotrimazole for now but hopefully d/c soon. Weakness: Continue physical therapy Nursing staff to get patient up out of bed at least 3 times daily Palliative care evaluation According to palliative care notes family wishes aggressive management, they are expecting him to improve, go to a rehabilitation facility and then improve enough to go home. They are declining hospice. DVT prophylaxis: SCDs. Avoid chemical prophylaxis secondary to GI bleed. Discharge Planning 08/05: CM requested [facility] to evaluate for long-term placement. CM reached out to [facility] and [facility]; awaiting return calls. Madeline Ortez Aug 11, 2016 10:03
[2016-08-11 20:00] VITALS: BP 109/72; PULSE 67; RESP 20; TEMP 96.4; O2SAT 96
[2016-08-11] MEDS: MIRTAZAPINE 15 MG TAB PEG SCH (20:34)
[2016-08-12] MEDS: MIDODRINE 5 MG TAB PO SCH ×3 (06:12→17:27)
[2016-08-12 08:00] VITALS: BP 113/77; PULSE 90; RESP 18; TEMP 97.6; O2SAT 98
[2016-08-12] MEDS: LANSOPRAZOLE SOLUTAB 30 MG TAB PEG SCH (08:45)
[2016-08-12] MEDS: ALLOPURINOL 100 MG TAB PEG SCH (08:45)
[2016-08-12] MEDS: FREE WATER G-TUBE SCH (08:45)
[2016-08-12] MEDS: CLOTRIMAZOLE 1% CREAM 15 GM TOPICAL SCH ×2 (08:45→22:29)
--- NOTE | 2016-08-12 14:48 | HHI.PR ---
Subjective Remarks Patient seen and examined today. Patient denies any new complaints. No change in clinical status. Objective Vitals Vital Signs Date Time Temp Pulse Resp B/P Pulse Ox O2 Delivery O2 Flow Rate FiO2 08/12/16 08:00 97.6 90 18 113/77 98 08/11/16 20:00 96.4 67 20 109/72 96 I/O 08/11/16 08/11/16 08/11/16 08/12/16 08/12/16 08/12/16 07:00 15:00 23:00 07:00 15:00 23:00 Intake Total 1080 ml Output Total 250 ml 900 ml 250 ml 400 ml Balance -250 ml 1080 ml -900 ml -250 ml -400 ml Tube Feeding 1080 ml Output Urine Total 250 ml 900 ml 250 ml 400 ml # Bowel Movements 2 2 Result Diagram: 08/08/16 0708 Objective Remarks GENERAL: Well-developed, well-nourished, in no acute distress. Patient awake and alert HEENT: Head is normocephalic without any lesions or masses noted. Facial features are symmetric. Eyes: Extraocular muscles are intact. Conjunctivae were clear. NECK: Trachea midline no deviation. CARDIAC: Regular rhythm, regular rate. S1/S2 are heard. No murmurs gallops or rubs. LUNGS: Clear to auscultation bilaterally. No wheeze, rhonchi or rales. No use of accessory muscles on inspiration or expiration. ABDOMEN: Soft, nontender. Nondistended. Bowel sounds heard in all 4 quadrants. No organomegaly or masses. Negative rebound, negative guarding, suprapubic catheter in place, PEG tube noted EXTREMITIES: No edema, pulses are equal bilaterally. No cyanosis or clubbing NEUROLOGY: Mood and affect appear appropriate. Cranial nerves II through XII grossly intact. Moving all extremities SKIN: Patient's back has skin breakdown on his back and sacral area. Procedures None Urinary Catheter: Yes (suprapubic catheter) Assessment to: Continue Soto insert reason: Obstruction/Retention Date of Insertion: Jul 31, 2016 Vascular Central Line Catheter: No A/P Assessment and Plan Weakness: Continue physical therapy Nursing staff to get patient up out of bed at least 3 times daily Dementia with inappropriate behavior, mood disorder improved Patient has been hospitalized for similar events in 2015 Consulted psychiatry for further evaluation, who indicated that this is a frontal lobe dementia Risperdal discontinued at family's request Continue Remeron Parkinson's disease: Patient has dementia and resting tremor. Chronic, stable. GI bleed with presenting of Upper GI bleed, patient with intermittent rectal bleeding: Resolved Hemoglobin continues to remain stable GI was following and reevaluated on 05/04/16 Presumed hemorrhoids, status post Anusol HC for 2 weeks Continue PPI. Protein calorie malnutrition: Improving Consulted dietitian who indicated that patient may be converted to bolus feeding Jevity 1.5, 6 cans per day. 1.5 cans that 0800 and 2000, 1 can at 1100, 1400, 1700 Prealbumin level 24 Ensure Enlive 3 times a day since pudding 3 times a day Hypotension with episodes of hypertension: Stable Blood pressure labile. Continue monitor blood pressure Continue Midodrine. Mild obstructive uropathy: Resolved. Appreciate urology recommendations. Suprapubic catheter in place, last changed 07/31/16. Abdominal pelvis CT 03/06/16 shows resolution of right sided hydronephrosis. 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 Stage I decubitus ulcer, sacral skin tear: Continue wound care. Palliative care evaluation According to palliative care notes. Family wishes aggressive management, they are expecting him to improve, go to a rehabilitation facility and then improve enough to go home. They are deferring hospice. DVT prophylaxis: SCDs. Avoid chemical prophylaxis secondary to GI bleed. No change present treatment plan Discharge Planning Discharge planning per case management. Case management still trying to reach out to nursing facilities for acceptance. Jaguar Walker Aug 12, 2016 14:48
[2016-08-12 20:00] VITALS: BP 105/68; PULSE 76; RESP 20; TEMP 96; O2SAT 96
[2016-08-12] MEDS: MIRTAZAPINE 15 MG TAB PEG SCH (22:29)
[2016-08-13] MEDS: MIDODRINE 5 MG TAB PO SCH ×3 (06:19→16:52)
[2016-08-13 08:00] VITALS: BP 112/71; PULSE 78; RESP 20; TEMP 98; O2SAT 96
[2016-08-13] MEDS: LANSOPRAZOLE SOLUTAB 30 MG TAB PEG SCH (08:43)
[2016-08-13] MEDS: ALLOPURINOL 100 MG TAB PEG SCH (08:43)
[2016-08-13] MEDS: CLOTRIMAZOLE 1% CREAM 15 GM TOPICAL SCH ×2 (08:44→20:40)
[2016-08-13] MEDS: FREE WATER G-TUBE SCH (08:45)
--- NOTE | 2016-08-13 09:51 | HHI.PR ---
Subjective Remarks Patient seen and examined today. Patient has any new complaints. No change in clinical status. Objective Vitals Vital Signs Date Time Temp Pulse Resp B/P Pulse Ox O2 Delivery O2 Flow Rate FiO2 08/13/16 08:00 98.0 78 20 112/71 96 08/12/16 20:00 96.0 76 20 105/68 96 I/O 08/12/16 08/12/16 08/12/16 08/13/16 08/13/16 08/13/16 07:00 15:00 23:00 07:00 15:00 23:00 Intake Total 860 ml Output Total 250 ml 400 ml 225 ml Balance -250 ml -400 ml 635 ml Intake Oral 0 ml Tube Feeding 720 ml Other 140 ml Output Urine Total 250 ml 400 ml 225 ml # Bowel Movements 1 2 Result Diagram: 08/07/16 1720 Objective Remarks GENERAL: Well-developed, well-nourished, in no acute distress. Patient awake and alert HEENT: Head is normocephalic without any lesions or masses noted. Facial features are symmetric. Eyes: Extraocular muscles are intact. Conjunctivae were clear. NECK: Trachea midline no deviation. CARDIAC: Regular rhythm, regular rate. S1/S2 are heard. No murmurs gallops or rubs. LUNGS: Clear to auscultation bilaterally. No wheeze, rhonchi or rales. No use of accessory muscles on inspiration or expiration. ABDOMEN: Soft, nontender. Nondistended. Bowel sounds heard in all 4 quadrants. No organomegaly or masses. Negative rebound, negative guarding, suprapubic catheter in place, PEG tube noted EXTREMITIES: No edema, pulses are equal bilaterally. No cyanosis or clubbing NEUROLOGY: Mood and affect appear appropriate. Cranial nerves II through XII grossly intact. Moving all extremities SKIN: Patient's back has skin breakdown on his back and sacral area. Procedures None Urinary Catheter: Yes (suprapubic catheter) Assessment to: Continue Soto insert reason: Obstruction/Retention Date of Insertion: Jul 31, 2016 Vascular Central Line Catheter: No A/P Assessment and Plan Weakness: Continue physical therapy Nursing staff to get patient up out of bed at least 3 times daily Dementia with inappropriate behavior, mood disorder improved Patient has been hospitalized for similar events in 2015 Consulted psychiatry for further evaluation, who indicated that this is a frontal lobe dementia Risperdal discontinued at family's request Continue Remeron Parkinson's disease: Patient has dementia and resting tremor. Chronic, stable. GI bleed with presenting of Upper GI bleed, patient with intermittent rectal bleeding: Resolved Hemoglobin continues to remain stable GI was following and reevaluated on 05/04/16 Presumed hemorrhoids, status post Anusol HC for 2 weeks Continue PPI. Protein calorie malnutrition: Improving Consulted dietitian who indicated that patient may be converted to bolus feeding Jevity 1.5, 6 cans per day. 1.5 cans that 0800 and 2000, 1 can at 1100, 1400, 1700 Prealbumin level 24 Ensure Enlive 3 times a day since pudding 3 times a day Hypotension with episodes of hypertension: Stable Blood pressure labile. Continue monitor blood pressure Continue Midodrine. Mild obstructive uropathy: Resolved. Appreciate urology recommendations. Suprapubic catheter in place, last changed 07/31/16. Abdominal pelvis CT 03/06/16 shows resolution of right sided hydronephrosis. 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 Stage I decubitus ulcer, sacral skin tear: Continue wound care. Palliative care evaluation According to palliative care notes. Family wishes aggressive management, they are expecting him to improve, go to a rehabilitation facility and then improve enough to go home. They are deferring hospice. DVT prophylaxis: SCDs. Avoid chemical prophylaxis secondary to GI bleed. No change present treatment plan Discharge Planning Discharge planning per case management. Case management still trying to reach out to nursing facilities for acceptance. Jaguar Walker Aug 13, 2016 09:51
[2016-08-13 20:00] VITALS: BP 100/66; PULSE 68; RESP 18; TEMP 97.1; O2SAT 95
[2016-08-13] MEDS: MIRTAZAPINE 15 MG TAB PEG SCH (20:40)
[2016-08-14] MEDS: MIDODRINE 5 MG TAB PO SCH ×3 (06:05→17:28)
[2016-08-14] MEDS: LANSOPRAZOLE SOLUTAB 30 MG TAB PEG SCH (08:09)
[2016-08-14] MEDS: ALLOPURINOL 100 MG TAB PEG SCH (08:09)
[2016-08-14] MEDS: FREE WATER G-TUBE SCH (08:10)
[2016-08-14] MEDS: CLOTRIMAZOLE 1% CREAM 15 GM TOPICAL SCH ×2 (08:10→20:38)
[2016-08-14 08:21] VITALS: BP 90/63; PULSE 63; RESP 19; TEMP 98.2; O2SAT 96
--- NOTE | 2016-08-14 10:18 | HHI.PR ---
Subjective Remarks Patient seen and examined today. Patient denies any new complaints. No change in clinical status. Objective Vitals Vital Signs Date Time Temp Pulse Resp B/P Pulse Ox O2 Delivery O2 Flow Rate FiO2 08/14/16 08:21 98.2 63 19 90/63 96 08/13/16 20:00 97.1 68 18 100/66 95 I/O 08/13/16 08/13/16 08/13/16 08/14/16 08/14/16 08/14/16 07:00 15:00 23:00 07:00 15:00 23:00 Intake Total 860 ml 540 ml Output Total 225 ml 700 ml 275 ml Balance 635 ml -160 ml -275 ml Intake Oral 0 ml Tube Feeding 720 ml 360 ml Other 140 ml 180 ml Output Urine Total 225 ml 700 ml 275 ml # Bowel Movements 2 1 1 Objective Remarks GENERAL: Well-developed, well-nourished, in no acute distress. Patient awake and alert HEENT: Head is normocephalic without any lesions or masses noted. Facial features are symmetric. Eyes: Extraocular muscles are intact. Conjunctivae were clear. Correlate base scaling noted on chin and nasolabial folds NECK: Trachea midline no deviation. CARDIAC: Regular rhythm, regular rate. S1/S2 are heard. No murmurs gallops or rubs. LUNGS: Clear to auscultation bilaterally. No wheeze, rhonchi or rales. No use of accessory muscles on inspiration or expiration. ABDOMEN: Soft, nontender. Nondistended. Bowel sounds heard in all 4 quadrants. No organomegaly or masses. Negative rebound, negative guarding, suprapubic catheter in place, PEG tube noted EXTREMITIES: No edema, pulses are equal bilaterally. No cyanosis or clubbing NEUROLOGY: Mood and affect appear appropriate. Cranial nerves II through XII grossly intact. Moving all extremities SKIN: Patient's back has skin breakdown on his back and sacral area. Procedures None Urinary Catheter: No Date of Insertion: Jul 31, 2016 Vascular Central Line Catheter: No A/P Assessment and Plan Weakness: Continue physical therapy Nursing staff to get patient up out of bed at least 3 times daily Dementia with inappropriate behavior, mood disorder improved Patient has been hospitalized for similar events in 2015 Consulted psychiatry for further evaluation, who indicated that this is a frontal lobe dementia Risperdal discontinued at family's request Continue Remeron Parkinson's disease: Patient has dementia and resting tremor. Chronic, stable. GI bleed with presenting of Upper GI bleed, patient with intermittent rectal bleeding: Resolved Hemoglobin continues to remain stable GI was following and reevaluated on 05/04/16 Presumed hemorrhoids, status post Anusol HC for 2 weeks Continue PPI. Protein calorie malnutrition: Improving Consulted dietitian who indicated that patient may be converted to bolus feeding Jevity 1.5, 6 cans per day. 1.5 cans that 0800 and 2000, 1 can at 1100, 1400, 1700 Prealbumin level 24 Ensure Enlive 3 times a day since pudding 3 times a day Hypotension with episodes of hypertension: Stable Blood pressure labile. Continue monitor blood pressure Continue Midodrine. Mild obstructive uropathy: Resolved. Appreciate urology recommendations. Suprapubic catheter in place, last changed 07/31/16. Abdominal pelvis CT 03/06/16 shows resolution of right sided hydronephrosis. 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 Stage I decubitus ulcer, sacral skin tear: Continue wound care. Seborrhea dermatitis Start hydrocortisone cream for 2 weeks Palliative care evaluation According to palliative care notes. Family wishes aggressive management, they are expecting him to improve, go to a rehabilitation facility and then improve enough to go home. They are deferring hospice. DVT prophylaxis: SCDs. Avoid chemical prophylaxis secondary to GI bleed. Discharge Planning Discharge planning per case management. Case management still trying to reach out to nursing facilities for acceptance. Jaguar Walker Aug 14, 2016 10:18
[2016-08-14 20:00] VITALS: BP 104/68; PULSE 68; RESP 18; TEMP 98.2; O2SAT 97
[2016-08-14] MEDS: MIRTAZAPINE 15 MG TAB PEG SCH (20:35)
[2016-08-14] MEDS: HYDROCORTISONE 1% LOTN 120 ML BTL TOPICAL SCH (21:00)
[2016-08-15] MEDS: MIDODRINE 5 MG TAB PO SCH ×3 (06:19→17:49)
[2016-08-15 08:00] VITALS: BP 111/75; PULSE 80; RESP 20; TEMP 96.6; O2SAT 94
[2016-08-15] MEDS: FREE WATER G-TUBE SCH (09:00)
[2016-08-15] MEDS: CLOTRIMAZOLE 1% CREAM 15 GM TOPICAL SCH ×2 (09:00→22:27)
[2016-08-15] MEDS: LANSOPRAZOLE SOLUTAB 30 MG TAB PEG SCH (09:09)
[2016-08-15] MEDS: ALLOPURINOL 100 MG TAB PEG SCH (09:09)
[2016-08-15] MEDS: HYDROCORTISONE 1% LOTN 120 ML BTL TOPICAL SCH ×2 (09:10→22:27)
--- NOTE | 2016-08-15 13:07 | HHI.PR ---
Subjective Remarks Patient seen and examined today. Patient denies any new complaints. No change in clinical status. Objective Vitals Vital Signs Date Time Temp Pulse Resp B/P Pulse Ox O2 Delivery O2 Flow Rate FiO2 08/15/16 08:00 96.6 80 20 111/75 94 08/14/16 20:00 98.2 68 18 104/68 97 I/O 08/14/16 08/14/16 08/14/16 08/15/16 08/15/16 08/15/16 07:00 15:00 23:00 07:00 15:00 23:00 Intake Total 840 ml 980 ml Output Total 275 ml 825 ml 250 ml 400 ml Balance -275 ml 15 ml 730 ml -400 ml Tube Feeding 840 ml 600 ml Other 380 ml Output Urine Total 275 ml 825 ml 250 ml 400 ml # Bowel Movements 1 1 1 Imaging Last Impressions Abdomen/Pelvis CT 03/06/16 0000 Signed Impressions: Service Date/Time: Sunday, March 06, 2016 22:27 - CONCLUSION: 1. Resolution of right sided hydronephrosis. 2. Renal cysts. 3. Bladder is decompressed and there is circumferential bladder wall thickening and intraluminal air identified. A cystitis is not excluded. 4. A large stool ball is noted within the rectum. 5. Cholelithiasis. 6. Nonobstructing left renal calculus. Speedy Noriega MD Abdomen X-Ray 01/30/16 0000 Signed Impressions: Service Date/Time: Saturday, January 30, 2016 14:17 - CONCLUSION: Satisfactory PEG tube positioning Mikael Valladares MD Objective Remarks GENERAL: Well-developed, well-nourished, in no acute distress. Patient awake and alert HEENT: Head is normocephalic without any lesions or masses noted. Facial features are symmetric. Eyes: Extraocular muscles are intact. Conjunctivae were clear. Correlate base scaling noted on chin and nasolabial folds NECK: Trachea midline no deviation. CARDIAC: Regular rhythm, regular rate. S1/S2 are heard. No murmurs gallops or rubs. LUNGS: Clear to auscultation bilaterally. No wheeze, rhonchi or rales. No use of accessory muscles on inspiration or expiration. ABDOMEN: Soft, nontender. Nondistended. Bowel sounds heard in all 4 quadrants. No organomegaly or masses. Negative rebound, negative guarding, suprapubic catheter in place, PEG tube noted EXTREMITIES: No edema, pulses are equal bilaterally. No cyanosis or clubbing NEUROLOGY: Mood and affect appear appropriate. Cranial nerves II through XII grossly intact. Moving all extremities SKIN: Patient's back has skin breakdown on his back and sacral area. Procedures None Urinary Catheter: Yes (suprapubic catheter) Assessment to: Continue Soto insert reason: Obstruction/Retention Date of Insertion: Jul 31, 2016 Vascular Central Line Catheter: No A/P Assessment and Plan Weakness: Continue physical therapy Nursing staff to get patient up out of bed at least 3 times daily Dementia with inappropriate behavior, mood disorder improved Patient has been hospitalized for similar events in 2014 Consulted psychiatry for further evaluation, who indicated that this is a frontal lobe dementia Risperdal discontinued at family's request Continue Remeron Parkinson's disease: Patient has dementia and resting tremor. Chronic, stable. GI bleed with presenting of Upper GI bleed, patient with intermittent rectal bleeding: Resolved Hemoglobin continues to remain stable GI was following and reevaluated on 05/04/16 Presumed hemorrhoids, status post Anusol HC for 2 weeks Continue PPI. Protein calorie malnutrition: Improving Consulted dietitian who indicated that patient may be converted to bolus feeding Jevity 1.5, 6 cans per day. 1.5 cans that 0800 and 2000, 1 can at 1100, 1400, 1700 Prealbumin level 24 Ensure Enlive 3 times a day since pudding 3 times a day Hypotension with episodes of hypertension: Stable Blood pressure labile. Continue monitor blood pressure Continue Midodrine. Mild obstructive uropathy: Resolved. Appreciate urology recommendations. Suprapubic catheter in place, last changed 07/31/16. Abdominal pelvis CT 03/06/16 shows resolution of right sided hydronephrosis. 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 Stage I decubitus ulcer, sacral skin tear: Continue wound care. Seborrhea dermatitis Start hydrocortisone cream for 2 weeks Palliative care evaluation According to palliative care notes. Family wishes aggressive management, they are expecting him to improve, go to a rehabilitation facility and then improve enough to go home. They are deferring hospice. DVT prophylaxis: SCDs. Avoid chemical prophylaxis secondary to GI bleed. Records reviewed, no change in present treatment plan Discharge Planning Discharge planning per case management. Case management still trying to reach out to nursing facilities for acceptance. Jaguar Walker Aug 15, 2016 13:07 Petey Calhoun MD Aug 15, 2016 22:00
[2016-08-15 20:00] VITALS: BP 106/70; PULSE 70; RESP 18; TEMP 98.2; O2SAT 97
[2016-08-15] MEDS: MIRTAZAPINE 15 MG TAB PEG SCH (21:37)
[2016-08-16] MEDS: MIDODRINE 5 MG TAB PO SCH ×3 (06:29→18:02)
--- NOTE | 2016-08-16 08:08 | HHI.PR ---
Subjective Remarks Patient seen and examined today. Patient denies any new complaints. Patient was up to the chair yesterday, however he does not want to get out of bed today Objective Vitals Vital Signs Date Time Temp Pulse Resp B/P Pulse Ox O2 Delivery O2 Flow Rate FiO2 08/15/16 20:00 98.2 70 18 106/70 97 I/O 08/15/16 08/15/16 08/15/16 08/16/16 08/16/16 08/16/16 07:00 15:00 23:00 07:00 15:00 23:00 Intake Total 80 ml Output Total 400 ml 450 ml 300 ml Balance -400 ml -450 ml -220 ml Intake Oral 80 ml Output Urine Total 400 ml 450 ml 300 ml # Bowel Movements 1 1 Objective Remarks GENERAL: Well-developed, well-nourished, in no acute distress. Patient awake and alert HEENT: Head is normocephalic without any lesions or masses noted. Facial features are symmetric. Eyes: Extraocular muscles are intact. Conjunctivae were clear. Correlate base scaling noted on chin and nasolabial folds NECK: Trachea midline no deviation. CARDIAC: Regular rhythm, regular rate. S1/S2 are heard. No murmurs gallops or rubs. LUNGS: Clear to auscultation bilaterally. No wheeze, rhonchi or rales. No use of accessory muscles on inspiration or expiration. ABDOMEN: Soft, nontender. Nondistended. Bowel sounds heard in all 4 quadrants. No organomegaly or masses. Negative rebound, negative guarding, suprapubic catheter in place, PEG tube noted EXTREMITIES: No edema, pulses are equal bilaterally. No cyanosis or clubbing NEUROLOGY: Mood and affect appear appropriate. Cranial nerves II through XII grossly intact. Moving all extremities SKIN: Patient's back has skin breakdown on his back and sacral area. Procedures None Urinary Catheter: Yes (suprapubic catheter) Assessment to: Continue Date of Insertion: Jul 31, 2016 Vascular Central Line Catheter: No A/P Assessment and Plan Weakness: Continue physical therapy Nursing staff to get patient up out of bed at least 3 times daily Dementia with inappropriate behavior, mood disorder improved Patient has been hospitalized for similar events in 2015 Consulted psychiatry for further evaluation, who indicated that this is a frontal lobe dementia Risperdal discontinued at family's request Continue Remeron Parkinson's disease: Patient has dementia and resting tremor. Chronic, stable. GI bleed with presenting of Upper GI bleed, patient with intermittent rectal bleeding: Resolved Hemoglobin continues to remain stable GI was following and reevaluated on 05/04/16 Presumed hemorrhoids, status post Anusol HC for 2 weeks Continue PPI. Protein calorie malnutrition: Improving Consulted dietitian who indicated that patient may be converted to bolus feeding Jevity 1.5, 6 cans per day. 1.5 cans that 0800 and 2000, 1 can at 1100, 1400, 1700 Prealbumin level 24 Ensure Enlive 3 times a day since pudding 3 times a day Hypotension with episodes of hypertension: Stable Blood pressure labile. Continue monitor blood pressure Continue Midodrine. Mild obstructive uropathy: Resolved. Appreciate urology recommendations. Suprapubic catheter in place, last changed 07/31/16. Abdominal pelvis CT 03/06/16 shows resolution of right sided hydronephrosis. 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 Stage I decubitus ulcer, sacral skin tear: Continue wound care. Seborrhea dermatitis Continue hydrocortisone cream for 2 weeks Palliative care evaluation According to palliative care notes. Family wishes aggressive management, they are expecting him to improve, go to a rehabilitation facility and then improve enough to go home. They are deferring hospice. DVT prophylaxis: SCDs. Avoid chemical prophylaxis secondary to GI bleed. Records reviewed, no change in present treatment plan Discharge Planning Discharge planning per case management. Case management still trying to reach out to nursing facilities for acceptance. Jaguar Walker Aug 16, 2016 08:08 Petey Calhoun MD Aug 16, 2016 16:46
[2016-08-16 08:30] VITALS: BP 115/73; PULSE 87; RESP 19; TEMP 96.9; O2SAT 95
[2016-08-16] MEDS: ALLOPURINOL 100 MG TAB PEG SCH (09:02)
[2016-08-16] MEDS: LANSOPRAZOLE SOLUTAB 30 MG TAB PEG SCH (09:02)
[2016-08-16] MEDS: FREE WATER G-TUBE SCH (09:03)
[2016-08-16] MEDS: HYDROCORTISONE 1% LOTN 120 ML BTL TOPICAL SCH ×2 (09:11→21:32)
[2016-08-16 20:00] VITALS: BP 107/72; PULSE 75; RESP 21; TEMP 97.2; O2SAT 100
[2016-08-16] MEDS: MIRTAZAPINE 15 MG TAB PEG SCH (21:31)
[2016-08-17] MEDS: MIDODRINE 5 MG TAB PO SCH ×3 (06:17→18:32)
[2016-08-17 08:00] VITALS: BP 120/81; PULSE 75; RESP 19; TEMP 97.7; O2SAT 97
[2016-08-17] MEDS: ALLOPURINOL 100 MG TAB PEG SCH (08:38)
[2016-08-17] MEDS: LANSOPRAZOLE SOLUTAB 30 MG TAB PEG SCH (08:38)
[2016-08-17] MEDS: HYDROCORTISONE 1% LOTN 120 ML BTL TOPICAL SCH ×2 (08:50→21:43)
[2016-08-17] MEDS: FREE WATER G-TUBE SCH (08:54)
--- NOTE | 2016-08-17 11:53 | HHI.PR ---
Subjective Remarks Patient seen and examined today. Patient denies any new complaints. No change in clinical status. Objective Vitals Vital Signs Date Time Temp Pulse Resp B/P Pulse Ox O2 Delivery O2 Flow Rate FiO2 08/17/16 08:00 97.7 75 19 120/81 97 08/16/16 20:00 97.2 75 21 107/72 100 I/O 08/16/16 08/16/16 08/16/16 08/17/16 08/17/16 08/17/16 07:00 15:00 23:00 07:00 15:00 23:00 Intake Total 80 ml 0 ml Output Total 300 ml 900 ml 650 ml Balance -220 ml 0 ml -900 ml -650 ml Intake Oral 80 ml IV Total 0 ml Output Urine Total 300 ml 900 ml 650 ml # Bowel Movements 1 1 Objective Remarks GENERAL: Well-developed, well-nourished, in no acute distress. Patient awake and alert HEENT: Head is normocephalic without any lesions or masses noted. Facial features are symmetric. Eyes: Extraocular muscles are intact. Conjunctivae were clear. Correlate base scaling noted on chin and nasolabial folds NECK: Trachea midline no deviation. CARDIAC: Regular rhythm, regular rate. S1/S2 are heard. No murmurs gallops or rubs. LUNGS: Clear to auscultation bilaterally. No wheeze, rhonchi or rales. No use of accessory muscles on inspiration or expiration. ABDOMEN: Soft, nontender. Nondistended. Bowel sounds heard in all 4 quadrants. No organomegaly or masses. Negative rebound, negative guarding, suprapubic catheter in place, PEG tube noted EXTREMITIES: No edema, pulses are equal bilaterally. No cyanosis or clubbing NEUROLOGY: Mood and affect appear appropriate. Cranial nerves II through XII grossly intact. Moving all extremities SKIN: Patient's back has skin breakdown on his back and sacral area. Procedures None Urinary Catheter: Yes (suprapubic catheter) Assessment to: Continue Date of Insertion: Jul 31, 2016 Vascular Central Line Catheter: No A/P Assessment and Plan Weakness: Continue physical therapy Nursing staff to get patient up out of bed at least 3 times daily Dementia with inappropriate behavior, mood disorder improved Patient has been hospitalized for similar events in 2015 Consulted psychiatry for further evaluation, who indicated that this is a frontal lobe dementia Risperdal discontinued at family's request Continue Remeron Parkinson's disease: Patient has dementia and resting tremor. Chronic, stable. GI bleed with presenting of Upper GI bleed, patient with intermittent rectal bleeding: Resolved Hemoglobin continues to remain stable GI was following and reevaluated on 05/04/16 Presumed hemorrhoids, status post Anusol HC for 2 weeks Continue PPI. Protein calorie malnutrition: Improving Consulted dietitian who indicated that patient may be converted to bolus feeding Jevity 1.5, 6 cans per day. 1.5 cans that 0800 and 2000, 1 can at 1100, 1400, 1700 Prealbumin level 24 Ensure Enlive 3 times a day since pudding 3 times a day Hypotension with episodes of hypertension: Stable Blood pressure labile. Continue monitor blood pressure Continue Midodrine. Mild obstructive uropathy: Resolved. Appreciate urology recommendations. Suprapubic catheter in place, last changed 07/31/16. Abdominal pelvis CT 03/06/16 shows resolution of right sided hydronephrosis. 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 Stage I decubitus ulcer, sacral skin tear: Continue wound care. Seborrhea dermatitis Continue hydrocortisone cream for 2 weeks Palliative care evaluation According to palliative care notes. Family wishes aggressive management, they are expecting him to improve, go to a rehabilitation facility and then improve enough to go home. They are deferring hospice. DVT prophylaxis: SCDs. Avoid chemical prophylaxis secondary to GI bleed. Records reviewed, no change in present treatment plan Discharge Planning Discharge planning per case management. Case management still trying to reach out to nursing facilities for acceptance. Jaguar Walker Aug 17, 2016 11:53 Petey Calhoun MD Aug 17, 2016 14:11
[2016-08-17 20:00] VITALS: BP 106/64; PULSE 76; RESP 20; TEMP 98.1; O2SAT 96
[2016-08-17] MEDS: MIRTAZAPINE 15 MG TAB PEG SCH (21:43)
[2016-08-18] MEDS: MIDODRINE 5 MG TAB PO SCH ×3 (06:06→18:17)
[2016-08-18 08:00] VITALS: BP 98/73; PULSE 77; RESP 20; TEMP 97.9; O2SAT 94
[2016-08-18] MEDS: ALLOPURINOL 100 MG TAB PEG SCH (09:20)
[2016-08-18] MEDS: LANSOPRAZOLE SOLUTAB 30 MG TAB PEG SCH (09:20)
[2016-08-18] MEDS: FREE WATER G-TUBE SCH (09:21)
[2016-08-18] MEDS: HYDROCORTISONE 1% LOTN 120 ML BTL TOPICAL SCH ×2 (09:22→20:25)
--- NOTE | 2016-08-18 11:48 | HHI.PR ---
Subjective Remarks Patient seen and examined today. Patient denies any new complaints. No change in clinical status. Objective Vitals Vital Signs Date Time Temp Pulse Resp B/P Pulse Ox O2 Delivery O2 Flow Rate FiO2 08/18/16 08:00 97.9 77 20 98/73 94 08/17/16 20:00 98.1 76 20 106/64 96 I/O 08/17/16 08/17/16 08/17/16 08/18/16 08/18/16 08/18/16 07:00 15:00 23:00 07:00 15:00 23:00 Intake Total 0 ml 1880 ml Output Total 650 ml 550 ml 275 ml 400 ml Balance -650 ml -550 ml 1605 ml -400 ml Intake Oral 0 ml Tube Feeding 1080 ml Other 800 ml Output Urine Total 650 ml 550 ml 275 ml 400 ml # Bowel Movements 3 1 2 Objective Remarks GENERAL: Well-developed, well-nourished, in no acute distress. Patient awake and alert HEENT: Head is normocephalic without any lesions or masses noted. Facial features are symmetric. Eyes: Extraocular muscles are intact. Conjunctivae were clear. Correlate base scaling noted on chin and nasolabial folds NECK: Trachea midline no deviation. CARDIAC: Regular rhythm, regular rate. S1/S2 are heard. No murmurs gallops or rubs. LUNGS: Clear to auscultation bilaterally. No wheeze, rhonchi or rales. No use of accessory muscles on inspiration or expiration. ABDOMEN: Soft, nontender. Nondistended. Bowel sounds heard in all 4 quadrants. No organomegaly or masses. Negative rebound, negative guarding, suprapubic catheter in place, PEG tube noted EXTREMITIES: No edema, pulses are equal bilaterally. No cyanosis or clubbing NEUROLOGY: Mood and affect appear appropriate. Cranial nerves II through XII grossly intact. Moving all extremities SKIN: Patient's back has skin breakdown on his back and sacral area. Procedures None Urinary Catheter: Yes (suprapubic catheter) Assessment to: Continue Soto insert reason: Obstruction/Retention Date of Insertion: Jul 31, 2016 Vascular Central Line Catheter: No A/P Assessment and Plan Weakness: Continue physical therapy Nursing staff to get patient up out of bed at least 3 times daily Dementia with inappropriate behavior, mood disorder improved Patient has been hospitalized for similar events in 2014 Consulted psychiatry for further evaluation, who indicated that this is a frontal lobe dementia Risperdal discontinued at family's request Continue Remeron Parkinson's disease: Patient has dementia and resting tremor. Chronic, stable. GI bleed with presenting of Upper GI bleed, patient with intermittent rectal bleeding: Resolved Hemoglobin continues to remain stable GI was following and reevaluated on 05/04/16 Presumed hemorrhoids, status post Anusol HC for 2 weeks Continue PPI. Protein calorie malnutrition: Improving Consulted dietitian who indicated that patient may be converted to bolus feeding Jevity 1.5, 6 cans per day. 1.5 cans that 0800 and 2000, 1 can at 1100, 1400, 1700 Prealbumin level 24 Ensure Enlive 3 times a day since pudding 3 times a day Hypotension with episodes of hypertension: Stable Blood pressure labile. Continue monitor blood pressure Continue Midodrine. Mild obstructive uropathy: Resolved. Appreciate urology recommendations. Suprapubic catheter in place, last changed 07/31/16. Abdominal pelvis CT 03/06/16 shows resolution of right sided hydronephrosis. 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 Stage I decubitus ulcer, sacral skin tear: Continue wound care. Seborrhea dermatitis Continue hydrocortisone cream for 2 weeks Palliative care evaluation According to palliative care notes. Family wishes aggressive management, they are expecting him to improve, go to a rehabilitation facility and then improve enough to go home. They are deferring hospice. DVT prophylaxis: SCDs. Avoid chemical prophylaxis secondary to GI bleed. Records reviewed, no change in present treatment plan Discharge Planning Discharge planning per case management. Case management still trying to reach out to nursing facilities for acceptance. Jaguar Walker Aug 18, 2016 11:48 Petey Calhoun MD Aug 18, 2016 16:08
[2016-08-18 20:00] VITALS: BP 103/61; PULSE 75; RESP 20; TEMP 96.8; O2SAT 96
[2016-08-18] MEDS: MIRTAZAPINE 15 MG TAB PEG SCH (20:25)
[2016-08-19] MEDS: MIDODRINE 5 MG TAB PO SCH ×3 (06:22→17:07)
[2016-08-19 08:00] VITALS: BP 97/62; PULSE 70; RESP 18; TEMP 97; O2SAT 96
[2016-08-19] MEDS: FREE WATER G-TUBE SCH (09:00)
[2016-08-19] MEDS: HYDROCORTISONE 1% LOTN 120 ML BTL TOPICAL SCH ×2 (09:00→21:19)
[2016-08-19] MEDS: ALLOPURINOL 100 MG TAB PEG SCH (09:43)
[2016-08-19] MEDS: LANSOPRAZOLE SOLUTAB 30 MG TAB PEG SCH (09:43)
--- NOTE | 2016-08-19 10:38 | HHI.PR ---
Subjective Remarks Patient seen and examined today for follow-up on deconditioning, patient denies any new complaints. Patient resting comfortably in bed. Hopefully physical therapy will be able to get patient out of bed today. Objective Vitals Vital Signs Date Time Temp Pulse Resp B/P Pulse Ox O2 Delivery O2 Flow Rate FiO2 08/18/16 20:00 96.8 75 20 103/61 96 I/O 08/18/16 08/18/16 08/18/16 08/19/16 08/19/16 08/19/16 07:00 15:00 23:00 07:00 15:00 23:00 Intake Total 500 ml 1580 ml 540 ml Output Total 400 ml 650 ml 600 ml Balance -400 ml -150 ml 980 ml 540 ml Intake Oral 0 ml 0 ml Tube Feeding 1080 ml 360 ml Other 500 ml 500 ml 180 ml Output Urine Total 400 ml 650 ml 600 ml # Bowel Movements 2 0 Objective Remarks GENERAL: Well-developed, well-nourished, in no acute distress. Patient awake and alert HEENT: Head is normocephalic without any lesions or masses noted. Facial features are symmetric. Eyes: Extraocular muscles are intact. Conjunctivae were clear. Correlate base scaling noted on chin and nasolabial folds NECK: Trachea midline no deviation. CARDIAC: Regular rhythm, regular rate. S1/S2 are heard. No murmurs gallops or rubs. LUNGS: Clear to auscultation bilaterally. No wheeze, rhonchi or rales. No use of accessory muscles on inspiration or expiration. ABDOMEN: Soft, nontender. Nondistended. Bowel sounds heard in all 4 quadrants. No organomegaly or masses. Negative rebound, negative guarding, suprapubic catheter in place, PEG tube noted EXTREMITIES: No edema, pulses are equal bilaterally. No cyanosis or clubbing NEUROLOGY: Mood and affect appear appropriate. Cranial nerves II through XII grossly intact. Moving all extremities SKIN: Patient's back has skin breakdown on his back and sacral area. Procedures None Urinary Catheter: Yes (superpubic catheter) Assessment to: Continue Soto insert reason: Obstruction/Retention Date of Insertion: Jul 31, 2016 Vascular Central Line Catheter: No A/P Assessment and Plan Weakness: Continue physical therapy Nursing staff to get patient up out of bed at least 3 times daily Dementia with inappropriate behavior, mood disorder improved Patient has been hospitalized for similar events in 2015 Consulted psychiatry for further evaluation, who indicated that this is a frontal lobe dementia Risperdal discontinued at family's request Continue Remeron Parkinson's disease: Patient has dementia and resting tremor. Chronic, stable. GI bleed with presenting of Upper GI bleed, patient with intermittent rectal bleeding: Resolved Hemoglobin continues to remain stable GI was following and reevaluated on 05/04/16 Presumed hemorrhoids, status post Anusol HC for 2 weeks Continue PPI. Protein calorie malnutrition: Improving Consulted dietitian who indicated that patient may be converted to bolus feeding Jevity 1.5, 6 cans per day. 1.5 cans that 0800 and 2000, 1 can at 1100, 1400, 1700 Prealbumin level 24 Ensure Enlive 3 times a day since pudding 3 times a day Hypotension with episodes of hypertension: Stable Blood pressure labile. Continue monitor blood pressure Continue Midodrine. Mild obstructive uropathy: Resolved. Appreciate urology recommendations. Suprapubic catheter in place, last changed 07/31/16. Abdominal pelvis CT 03/06/16 shows resolution of right sided hydronephrosis. 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 Stage I decubitus ulcer, sacral skin tear: Continue wound care. Seborrhea dermatitis Continue hydrocortisone cream for 2 weeks Palliative care evaluation According to palliative care notes. Family wishes aggressive management, they are expecting him to improve, go to a rehabilitation facility and then improve enough to go home. They are deferring hospice. DVT prophylaxis: SCDs. Avoid chemical prophylaxis secondary to GI bleed. Records reviewed, no change in present treatment plan Discharge Planning Discharge planning per case management. Case management still trying to reach out to nursing facilities for acceptance. Jaguar Walker Aug 19, 2016 10:37
[2016-08-19 20:00] VITALS: BP 106/72; PULSE 67; RESP 20; TEMP 96.8; O2SAT 95
[2016-08-19] MEDS: MIRTAZAPINE 15 MG TAB PEG SCH (21:18)
[2016-08-20] MEDS: MIDODRINE 5 MG TAB PO SCH ×3 (06:26→17:11)
[2016-08-20 08:00] VITALS: BP 110/60; PULSE 66; RESP 16; TEMP 97.7; O2SAT 95
[2016-08-20] MEDS: ALLOPURINOL 100 MG TAB PEG SCH (08:17)
[2016-08-20] MEDS: FREE WATER G-TUBE SCH (08:17)
[2016-08-20] MEDS: LANSOPRAZOLE SOLUTAB 30 MG TAB PEG SCH (08:17)
[2016-08-20] MEDS: HYDROCORTISONE 1% LOTN 120 ML BTL TOPICAL SCH ×2 (08:18→19:48)
--- NOTE | 2016-08-20 15:21 | HHI.PR ---
Subjective Remarks Follow-up for dementia. No acute complaints. Objective Vitals Vital Signs Date Time Temp Pulse Resp B/P Pulse Ox O2 Delivery O2 Flow Rate FiO2 08/20/16 08:00 97.7 66 16 110/60 95 08/19/16 20:00 96.8 67 20 106/72 95 I/O 08/19/16 08/19/16 08/19/16 08/20/16 08/20/16 08/20/16 07:00 15:00 23:00 07:00 15:00 23:00 Intake Total 540 ml 2440 ml 230 ml 1140 ml Output Total 1275 ml 550 ml Balance 540 ml 1165 ml -320 ml 1140 ml Intake Oral 0 ml Tube Feeding 360 ml 1440 ml 0 ml 840 ml Tube Irrigant 200 ml 230 ml 100 ml Other 180 ml 800 ml 200 ml Output Urine Total 1275 ml 550 ml # Bowel Movements 0 0 Objective Remarks GENERAL: Well developed male in no apparent distress. CARDIOVASCULAR: Regular rate and rhythm. RESPIRATORY: No accessory muscle use. CTAB. GASTROINTESTINAL: Abdomen is soft, non-tender, nondistended. NEURO: Awake and alert. Procedures None Urinary Catheter: Yes Assessment to: Continue Soto insert reason: Obstruction/Retention Date of Insertion: Jul 31, 2016 Vascular Central Line Catheter: No A/P Problem List: (1) Decreased urine output ICD Code: R34 Status: Acute (2) Prerenal azotemia ICD Code: R79.89 Status: Acute (3) Hematuria ICD Code: R31.9 Status: Acute Assessment and Plan Hematuria: Resolved. Blood clots in his urine and urine is pink tinged. -Patient is not on anticoagulation. -Hemoglobin normal. -Creatinine is normal. -UA 4/5 with innumerable RBCs, but urine sample not grossly bloody. Urinary tract infection: Urine culture positive for Proteus mirabilis and GBS on 01/20. Patient completed course of antibiotics. Abdominal pelvis CT 03/06 shows decompressed bladder with circumferential bladder wall thickening and intraluminal air possibly indicating cystitis, but the patient had been afebrile with normal WBC count. Urine culture 05/31 with Serratia marcescens, Pseudomonas, and Enterococcus faecalis. Patient was started on antibiotics. Repeat urine culture on 06/04 only reveals contaminants. Urine culture 4/5 with Enterococcus faecalis and Pseudomonas Aeruginosa similar to previous culture on 05/31. Patient remains afebrile. CBC with normal white blood cell count. Hematuria has resolved. Patient is likely colonized or urine is contaminated. Will not treat for UTI unless patient becomes febrile or has elevated white blood cell. Mild obstructive uropathy: Resolved. Appreciate urology recommendations. Suprapubic catheter to be changed monthly; it was last changed on 07/31/16. Abdominal pelvis CT 03/06/16 shows resolution of right sided hydronephrosis. Upper GI bleeding: Resolved with recurrent rectal bleeding. Hemoglobin stable. GI reevaluated patient on 05/04. Presumed hemorrhoids, s/p Anusol HC for total of 2 weeks. Continue PPI. Protein calorie malnutrition: Improving Consulted dietitian who indicated that patient may be converted to bolus feeding Jevity 1.5 w/ bolus 1.5 cans(360ml) @ 0800 and 2000 and 1-can(240ml) @ 1100, 1400 and 1700. Free Water Flush 100ml before and after each bolus feeding. Ensure Enlive tid and chocolate pudding tid Prealbumin level 25. Patient desired to eat and speech therapy advised puree diet, thin liquids, but patient has not been eating. [employer] [employer] suggested considering appetite stimulant. This was discussed with attending, but we do not believe this would be beneficial for patient and would add unnecessary risk to the patient. Will continue with tube feeds only. Dementia with inappropriate behavior, mood disorder improved Patient had inappropriate behavior which is resolved now. He has been very appropriate for a long time now. Patient has been hospitalized for similar events in 2015 Consulted psychiatry for further evaluation, who indicated that this is a frontal lobe dementia Risperdal 0.25 mg during the day, Risperdal 0.5 mg at night. Risperdal was discontinued per POA request. Continue Remeron Psychiatry was reconsulted and is ok with discontinuation of Risperdal. Seborrheic dermatitis: Flaky skin to the face and neck. Improved s/p one time dose of Ketoconazole 2% shampoo. Continue hydrocortisone cream for 2 weeks Chalazion: Persistent nodule R upper eyelid. There is no evidence of preseptal cellulitis. -Warm compresses were applied but it was greater than 2 weeks without significant improvement. -Ophthalmology was consulted and evaluated patient on 03/26. S/p warm compresses and Tobradex 4 times a day OD x 2 weeks. Patient was intermittently compliant with eyedrops. -No worsening. Follow-up outpatient. Hypotension: Blood pressure labile. Continue Midodrine. Patient on max dose. Increase free water flushes as needed. Pre-renal azotemia: BUN mildly elevated at 22. Continue free water flushes Stage I decubitus ulcer, sacral skin tear: Continue wound care. Frequent turning of patient. Candidal infection: buttocks affected with satellite lesions to the perineum. -S/p Nystatin and clotrimazole Weakness: Continue physical therapy Nursing staff to get patient up out of bed at least 3 times daily Palliative care evaluation According to palliative care notes family wishes aggressive management, they are expecting him to improve, go to a rehabilitation facility and then improve enough to go home. They are declining hospice. DVT prophylaxis: SCDs. Avoid chemical prophylaxis secondary to GI bleed. Discharge Planning 08/16: [place] [facility] considering for acceptance but son has to go to a conference there first. Madeline Ortez Aug 20, 2016 15:21 Madeline Ortez Aug 20, 2016 15:21
[2016-08-20] MEDS: MIRTAZAPINE 15 MG TAB PEG SCH (19:47)
[2016-08-20 20:00] VITALS: BP 114/69; PULSE 67; RESP 20; TEMP 97.1; O2SAT 98
[2016-08-21] MEDS: MIDODRINE 5 MG TAB PO SCH ×3 (06:35→16:59)
[2016-08-21 08:00] VITALS: BP 135/88; PULSE 76; RESP 20; TEMP 98.4; O2SAT 96
[2016-08-21] MEDS: HYDROCORTISONE 1% LOTN 120 ML BTL TOPICAL SCH ×2 (08:43→20:39)
[2016-08-21] MEDS: LANSOPRAZOLE SOLUTAB 30 MG TAB PEG SCH (08:43)
[2016-08-21] MEDS: ALLOPURINOL 100 MG TAB PEG SCH (08:43)
[2016-08-21] MEDS: FREE WATER G-TUBE SCH (08:44)
--- NOTE | 2016-08-21 10:34 | HHI.PR ---
Subjective Remarks Follow up for dementia. No acute issues. Objective Vitals Vital Signs Date Time Temp Pulse Resp B/P Pulse Ox O2 Delivery O2 Flow Rate FiO2 08/21/16 08:00 98.4 76 20 135/88 96 08/20/16 20:00 97.1 67 20 114/69 98 I/O 08/20/16 08/20/16 08/20/16 08/21/16 08/21/16 08/21/16 07:00 15:00 23:00 07:00 15:00 23:00 Intake Total 230 ml 1140 ml 890 ml 200 ml Output Total 550 ml 1300 ml 375 ml Balance -320 ml 1140 ml -410 ml -175 ml Tube Feeding 0 ml 840 ml 600 ml 0 ml Tube Irrigant 230 ml 100 ml 290 ml 200 ml Other 200 ml Output Urine Total 550 ml 1300 ml 375 ml # Bowel Movements 0 1 1 Objective Remarks GENERAL: Well developed male in no apparent distress. CARDIOVASCULAR: Regular rate and rhythm. RESPIRATORY: No accessory muscle use. CTAB. GASTROINTESTINAL: Abdomen is soft, non-tender, nondistended. NEURO: Awake and alert. Procedures None Urinary Catheter: Yes Assessment to: Continue Soto insert reason: Obstruction/Retention Date of Insertion: Jul 31, 2016 Vascular Central Line Catheter: No A/P Problem List: (1) Decreased urine output ICD Code: R34 Status: Acute (2) Prerenal azotemia ICD Code: R79.89 Status: Acute (3) Hematuria ICD Code: R31.9 Status: Acute Assessment and Plan Hematuria: Resolved. Blood clots in his urine and urine is pink tinged. -Patient is not on anticoagulation. -Hemoglobin normal. -Creatinine is normal. -UA 4/5 with innumerable RBCs, but urine sample not grossly bloody. Urinary tract infection: Urine culture positive for Proteus mirabilis and GBS on 01/20. Patient completed course of antibiotics. Abdominal pelvis CT 03/06 shows decompressed bladder with circumferential bladder wall thickening and intraluminal air possibly indicating cystitis, but the patient had been afebrile with normal WBC count. Urine culture 05/31 with Serratia marcescens, Pseudomonas, and Enterococcus faecalis. Patient was started on antibiotics. Repeat urine culture on 06/04 only reveals contaminants. Urine culture 4/5 with Enterococcus faecalis and Pseudomonas Aeruginosa similar to previous culture on 05/31. Patient remains afebrile. CBC with normal white blood cell count. Hematuria has resolved. Patient is likely colonized or urine is contaminated. Will not treat for UTI unless patient becomes febrile or has elevated white blood cell. Mild obstructive uropathy: Resolved. Appreciate urology recommendations. Suprapubic catheter to be changed monthly; it was last changed on 07/31/16. Abdominal pelvis CT 03/06/16 shows resolution of right sided hydronephrosis. Upper GI bleeding: Resolved with recurrent rectal bleeding. Hemoglobin stable. GI reevaluated patient on 05/04. Presumed hemorrhoids, s/p Anusol HC for total of 2 weeks. Continue PPI. Protein calorie malnutrition: Improving Consulted dietitian who indicated that patient may be converted to bolus feeding Jevity 1.5 w/ bolus 1.5 cans(360ml) @ 0800 and 2000 and 1-can(240ml) @ 1100, 1400 and 1700. Free Water Flush 100ml before and after each bolus feeding. Ensure Enlive tid and chocolate pudding tid Prealbumin level 25. Patient desired to eat and speech therapy advised puree diet, thin liquids, but patient has not been eating. Beehive Kiln Supervisor suggested considering appetite stimulant. This was discussed with attending, but we do not believe this would be beneficial for patient and would add unnecessary risk to the patient. Will continue with tube feeds only. Dementia with inappropriate behavior, mood disorder improved Patient had inappropriate behavior which is resolved now. He has been very appropriate for a long time now. Patient has been hospitalized for similar events in 2015 Consulted psychiatry for further evaluation, who indicated that this is a frontal lobe dementia Risperdal 0.25 mg during the day, Risperdal 0.5 mg at night. Risperdal was discontinued per POA request. Continue Remeron Psychiatry was reconsulted and is ok with discontinuation of Risperdal. Seborrheic dermatitis: Flaky skin to the face and neck. Improved s/p one time dose of Ketoconazole 2% shampoo. Continue hydrocortisone cream for 2 weeks Chalazion: Persistent nodule R upper eyelid. There is no evidence of preseptal cellulitis. -Warm compresses were applied but it was greater than 2 weeks without significant improvement. -Ophthalmology was consulted and evaluated patient on 03/26. S/p warm compresses and Tobradex 4 times a day OD x 2 weeks. Patient was intermittently compliant with eyedrops. -No worsening. Follow-up outpatient. Hypotension: Blood pressure labile. Continue Midodrine. Patient on max dose. Increase free water flushes as needed. Pre-renal azotemia: BUN mildly elevated at 22. Continue free water flushes Stage I decubitus ulcer, sacral skin tear: Continue wound care. Frequent turning of patient. Candidal infection: buttocks affected with satellite lesions to the perineum. -S/p Nystatin and clotrimazole Weakness: Continue physical therapy Nursing staff to get patient up out of bed at least 3 times daily Palliative care evaluation According to palliative care notes family wishes aggressive management, they are expecting him to improve, go to a rehabilitation facility and then improve enough to go home. They are declining hospice. DVT prophylaxis: SCDs. Avoid chemical prophylaxis secondary to GI bleed. Discharge Planning 08/16: [place] [facility] considering for acceptance but son has to go to a conference there first. Madeline Ortez Aug 21, 2016 10:34
[2016-08-21 20:00] VITALS: BP 97/64; PULSE 82; RESP 19; TEMP 98.2; O2SAT 95
[2016-08-21] MEDS: MIRTAZAPINE 15 MG TAB PEG SCH (20:38)
[2016-08-22] MEDS: MIDODRINE 5 MG TAB PO SCH ×3 (06:29→17:40)
[2016-08-22 08:00] VITALS: BP 98/62; PULSE 74; RESP 19; TEMP 96.2; O2SAT 96
[2016-08-22] MEDS: FREE WATER G-TUBE SCH (09:00)
[2016-08-22] MEDS: ALLOPURINOL 100 MG TAB PEG SCH (09:31)
[2016-08-22] MEDS: LANSOPRAZOLE SOLUTAB 30 MG TAB PEG SCH (09:31)
[2016-08-22] MEDS: HYDROCORTISONE 1% LOTN 120 ML BTL TOPICAL SCH ×2 (09:32→20:17)
--- NOTE | 2016-08-22 11:11 | HHI.PR ---
Subjective Remarks Follow-up for dementia. No acute complaints. Objective Vitals Vital Signs Date Time Temp Pulse Resp B/P Pulse Ox O2 Delivery O2 Flow Rate FiO2 08/22/16 08:00 96.2 74 19 98/62 96 08/21/16 20:00 98.2 82 19 97/64 95 I/O 08/21/16 08/21/16 08/21/16 08/22/16 08/22/16 08/22/16 07:00 15:00 23:00 07:00 15:00 23:00 Intake Total 200 ml 1140 ml 830 ml Output Total 375 ml 900 ml 450 ml 325 ml Balance -175 ml 240 ml 380 ml -325 ml Intake Oral 0 ml Tube Feeding 0 ml 840 ml 600 ml Tube Irrigant 200 ml 100 ml 230 ml Other 200 ml Output Urine Total 375 ml 900 ml 450 ml 325 ml # Bowel Movements 1 3 Objective Remarks GENERAL: Well developed male in no apparent distress. CARDIOVASCULAR: Regular rate and rhythm. RESPIRATORY: No accessory muscle use. CTAB. GASTROINTESTINAL: Abdomen is soft, non-tender, nondistended. NEURO: Awake and alert. Does not speak aloud but mouths words. Procedures None Urinary Catheter: Yes Assessment to: Continue Soto insert reason: Obstruction/Retention Date of Insertion: Jul 31, 2016 Vascular Central Line Catheter: No A/P Problem List: (1) Decreased urine output ICD Code: R34 Status: Acute (2) Prerenal azotemia ICD Code: R79.89 Status: Acute (3) Hematuria ICD Code: R31.9 Status: Acute Assessment and Plan Hematuria: Resolved. Blood clots in his urine and urine is pink tinged. -Patient is not on anticoagulation. -Hemoglobin normal. -Creatinine is normal. -UA 4/5 with innumerable RBCs, but urine sample not grossly bloody. Urinary tract infection: Urine culture positive for Proteus mirabilis and GBS on 01/20. Patient completed course of antibiotics. Abdominal pelvis CT 03/06 shows decompressed bladder with circumferential bladder wall thickening and intraluminal air possibly indicating cystitis, but the patient had been afebrile with normal WBC count. Urine culture 05/31 with Serratia marcescens, Pseudomonas, and Enterococcus faecalis. Patient was started on antibiotics. Repeat urine culture on 06/04 only reveals contaminants. Urine culture 4/5 with Enterococcus faecalis and Pseudomonas Aeruginosa similar to previous culture on 05/31. Patient remains afebrile. CBC with normal white blood cell count. Hematuria has resolved. Patient is likely colonized or urine is contaminated. Will not treat for UTI unless patient becomes febrile or has elevated white blood cell. Mild obstructive uropathy: Resolved. Appreciate urology recommendations. Suprapubic catheter to be changed monthly; it was last changed on 07/31/16. Abdominal pelvis CT 03/06/16 shows resolution of right sided hydronephrosis. Upper GI bleeding: Resolved with recurrent rectal bleeding. Hemoglobin stable. GI reevaluated patient on 05/04. Presumed hemorrhoids, s/p Anusol HC for total of 2 weeks. Continue PPI. Protein calorie malnutrition: Improving Consulted dietitian who indicated that patient may be converted to bolus feeding Jevity 1.5 w/ bolus 1.5 cans(360ml) @ 0800 and 2000 and 1-can(240ml) @ 1100, 1400 and 1700. Free Water Flush 100ml before and after each bolus feeding. Ensure Enlive tid and chocolate pudding tid Prealbumin level 25. Patient desired to eat and speech therapy advised puree diet, thin liquids, but patient has not been eating. Plant Taxonomist suggested considering appetite stimulant. This was discussed with attending, but we do not believe this would be beneficial for patient and would add unnecessary risk to the patient. Will continue with tube feeds only. Dementia with inappropriate behavior, mood disorder improved Patient had inappropriate behavior which is resolved now. He has been very appropriate for a long time now. Patient has been hospitalized for similar events in 2015 Consulted psychiatry for further evaluation, who indicated that this is a frontal lobe dementia Risperdal 0.25 mg during the day, Risperdal 0.5 mg at night. Risperdal was discontinued per POA request. Continue Remeron Psychiatry was reconsulted and is ok with discontinuation of Risperdal. Seborrheic dermatitis: Flaky skin to the face and neck. Improved s/p one time dose of Ketoconazole 2% shampoo. Continue hydrocortisone cream for 2 weeks Chalazion: Persistent nodule R upper eyelid. There is no evidence of preseptal cellulitis. -Warm compresses were applied but it was greater than 2 weeks without significant improvement. -Ophthalmology was consulted and evaluated patient on 03/26. S/p warm compresses and Tobradex 4 times a day OD x 2 weeks. Patient was intermittently compliant with eyedrops. -No worsening. Follow-up outpatient. Hypotension: Blood pressure labile. Continue Midodrine. Patient on max dose. Increase free water flushes as needed. Pre-renal azotemia: BUN mildly elevated at 22. Continue free water flushes Stage I decubitus ulcer, sacral skin tear: Continue wound care. Frequent turning of patient. Candidal infection: buttocks affected with satellite lesions to the perineum. -S/p Nystatin and clotrimazole Weakness: Continue physical therapy Nursing staff to get patient up out of bed at least 3 times daily Palliative care evaluation According to palliative care notes family wishes aggressive management, they are expecting him to improve, go to a rehabilitation facility and then improve enough to go home. They are declining hospice. DVT prophylaxis: SCDs. Avoid chemical prophylaxis secondary to GI bleed. Discharge Planning 08/16: [place] [facility] considering for acceptance but son has to go to a conference there first. Madeline Ortez Aug 22, 2016 11:11
[2016-08-22 20:00] VITALS: BP 113/72; PULSE 90; RESP 24; TEMP 97.4; O2SAT 98
[2016-08-22] MEDS: MIRTAZAPINE 15 MG TAB PEG SCH (20:17)
[2016-08-23] MEDS: MIDODRINE 5 MG TAB PO SCH ×3 (06:26→17:08)
[2016-08-23 08:00] VITALS: BP 124/75; PULSE 77; RESP 18; TEMP 98.1; O2SAT 97
[2016-08-23] MEDS: FREE WATER G-TUBE SCH (09:00)
[2016-08-23] MEDS: LANSOPRAZOLE SOLUTAB 30 MG TAB PEG SCH (09:24)
[2016-08-23] MEDS: ALLOPURINOL 100 MG TAB PEG SCH (09:25)
[2016-08-23] MEDS: HYDROCORTISONE 1% LOTN 120 ML BTL TOPICAL SCH ×2 (09:25→19:59)
--- NOTE | 2016-08-23 10:12 | HHI.PR ---
Subjective Remarks Follow-up for dementia. No acute complaints. Objective Vitals Vital Signs Date Time Temp Pulse Resp B/P Pulse Ox O2 Delivery O2 Flow Rate FiO2 08/23/16 08:00 98.1 77 18 124/75 97 08/22/16 20:00 97.4 90 24 113/72 98 I/O 08/22/16 08/22/16 08/22/16 08/23/16 08/23/16 08/23/16 07:00 15:00 23:00 07:00 15:00 23:00 Intake Total 0 ml Output Total 325 ml 600 ml 400 ml 350 ml Balance -325 ml -600 ml -400 ml -350 ml Intake Oral 0 ml Output Urine Total 325 ml 600 ml 400 ml 350 ml # Bowel Movements 2 2 1 Objective Remarks GENERAL: Well developed male in no apparent distress. CARDIOVASCULAR: Regular rate and rhythm. RESPIRATORY: No accessory muscle use. CTAB. GASTROINTESTINAL: Abdomen is soft, non-tender, nondistended. NEURO: Awake and alert. Does not speak aloud but mouths words. Procedures None Urinary Catheter: Yes Assessment to: Continue Soto insert reason: Prolonged Immobilization Date of Insertion: Jul 31, 2016 Vascular Central Line Catheter: No A/P Problem List: (1) Decreased urine output ICD Code: R34 Status: Acute (2) Prerenal azotemia ICD Code: R79.89 Status: Acute (3) Hematuria ICD Code: R31.9 Status: Acute Assessment and Plan Hematuria: Resolved. Blood clots in his urine and urine is pink tinged. -Patient is not on anticoagulation. -Hemoglobin normal. -Creatinine is normal. -UA 4/5 with innumerable RBCs, but urine sample not grossly bloody. Urinary tract infection: Urine culture positive for Proteus mirabilis and GBS on 01/20. Patient completed course of antibiotics. Abdominal pelvis CT 03/06 shows decompressed bladder with circumferential bladder wall thickening and intraluminal air possibly indicating cystitis, but the patient had been afebrile with normal WBC count. Urine culture 05/31 with Serratia marcescens, Pseudomonas, and Enterococcus faecalis. Patient was started on antibiotics. Repeat urine culture on 06/04 only reveals contaminants. Urine culture 4/5 with Enterococcus faecalis and Pseudomonas Aeruginosa similar to previous culture on 05/31. Patient remains afebrile. CBC with normal white blood cell count. Hematuria has resolved. Patient is likely colonized or urine is contaminated. Will not treat for UTI unless patient becomes febrile or has elevated white blood cell. Mild obstructive uropathy: Resolved. Appreciate urology recommendations. Suprapubic catheter to be changed monthly; it was last changed on 07/31/16. Abdominal pelvis CT 03/06/16 shows resolution of right sided hydronephrosis. Upper GI bleeding: Resolved with recurrent rectal bleeding. Hemoglobin stable. GI reevaluated patient on 05/04. Presumed hemorrhoids, s/p Anusol HC for total of 2 weeks. Continue PPI. Protein calorie malnutrition: Improving Consulted dietitian who indicated that patient may be converted to bolus feeding Jevity 1.5 w/ bolus 1.5 cans(360ml) @ 0800 and 2000 and 1-can(240ml) @ 1100, 1400 and 1700. Free Water Flush 100ml before and after each bolus feeding. Ensure Enlive tid and chocolate pudding tid Prealbumin level 25. Patient desired to eat and speech therapy advised puree diet, thin liquids, but patient has not been eating. Heat Curer suggested considering appetite stimulant. This was discussed with attending, but we do not believe this would be beneficial for patient and would add unnecessary risk to the patient. Will continue with tube feeds only. Dementia with inappropriate behavior, mood disorder improved Patient had inappropriate behavior which is resolved now. He has been very appropriate for a long time now. Patient has been hospitalized for similar events in 2015 Consulted psychiatry for further evaluation, who indicated that this is a frontal lobe dementia Risperdal 0.25 mg during the day, Risperdal 0.5 mg at night. Risperdal was discontinued per POA request. Continue [facility] Psychiatry was reconsulted and is ok with discontinuation of Risperdal. Seborrheic dermatitis: Flaky skin to the face and neck. Improved s/p one time dose of Ketoconazole 2% shampoo. Continue hydrocortisone cream for 2 weeks Chalazion: Persistent nodule R upper eyelid. There is no evidence of preseptal cellulitis. -Warm compresses were applied but it was greater than 2 weeks without significant improvement. -Ophthalmology was consulted and evaluated patient on 03/26. S/p warm compresses and Tobradex 4 times a day OD x 2 weeks. Patient was intermittently compliant with eyedrops. -No worsening. Follow-up outpatient. Hypotension: Blood pressure labile. Continue Midodrine. Patient on max dose. Increase free water flushes as needed. Pre-renal azotemia: BUN mildly elevated at 22. Continue free water flushes Stage I decubitus ulcer, sacral skin tear: Continue wound care. Frequent turning of patient. Candidal infection: buttocks affected with satellite lesions to the perineum. -S/p Nystatin and clotrimazole Weakness: Continue physical therapy Nursing staff to get patient up out of bed at least 3 times daily Palliative care evaluation According to palliative care notes family wishes aggressive management, they are expecting him to improve, go to a rehabilitation facility and then improve enough to go home. They are declining hospice. DVT prophylaxis: SCDs. Avoid chemical prophylaxis secondary to GI bleed. Discharge Planning 08/16: [place] [facility] considering for acceptance but son has to go to a conference there first. Madeline Ortez Aug 23, 2016 10:12
[2016-08-23 12:54] VITALS: BP 106/75; PULSE 83; O2SAT 95
[2016-08-23 17:06] VITALS: BP 116/81
[2016-08-23] MEDS: MIRTAZAPINE 15 MG TAB PEG SCH (19:58)
[2016-08-23 20:00] VITALS: BP 123/71; PULSE 76; RESP 20; TEMP 96.6; O2SAT 94
[2016-08-24] MEDS: MIDODRINE 5 MG TAB PO SCH ×3 (06:03→17:16)
[2016-08-24 08:00] VITALS: BP 108/68; PULSE 62; RESP 20; TEMP 97.3; O2SAT 98
[2016-08-24] MEDS: LANSOPRAZOLE SOLUTAB 30 MG TAB PEG SCH (08:43)
[2016-08-24] MEDS: ALLOPURINOL 100 MG TAB PEG SCH (08:43)
[2016-08-24] MEDS: FREE WATER G-TUBE SCH (08:44)
[2016-08-24] MEDS: HYDROCORTISONE 1% LOTN 120 ML BTL TOPICAL SCH ×2 (08:44→21:24)
--- NOTE | 2016-08-24 11:53 | HHI.PR ---
Subjective Remarks Follow-up for dementia. No acute complaints. Objective Vitals Vital Signs Date Time Temp Pulse Resp B/P Pulse Ox O2 Delivery O2 Flow Rate FiO2 08/24/16 08:00 97.3 62 20 108/68 98 08/23/16 20:00 96.6 76 20 123/71 94 08/23/16 17:06 116/81 08/23/16 12:54 83 106/75 95 I/O 08/23/16 08/23/16 08/23/16 08/24/16 08/24/16 08/24/16 07:00 15:00 23:00 07:00 15:00 23:00 Intake Total 460 ml Output Total 350 ml 1100 ml 300 ml Balance -350 ml -640 ml -300 ml Tube Feeding 360 ml Tube Irrigant 100 ml Output Urine Total 350 ml 1100 ml 300 ml # Bowel Movements 1 1 1 Objective Remarks GENERAL: Well developed male in no apparent distress. CARDIOVASCULAR: Regular rate and rhythm. RESPIRATORY: No accessory muscle use. CTAB. GASTROINTESTINAL: Abdomen is soft, non-tender, nondistended. NEURO: Awake and alert. Does not speak aloud. Procedures None Urinary Catheter: No Date of Insertion: Jul 31, 2016 Vascular Central Line Catheter: No A/P Problem List: (1) Decreased urine output ICD Code: R34 Status: Acute (2) Prerenal azotemia ICD Code: R79.89 Status: Acute (3) Hematuria ICD Code: R31.9 Status: Acute Assessment and Plan Hematuria: Resolved. Blood clots in his urine and urine is pink tinged. -Patient is not on anticoagulation. -Hemoglobin normal. -Creatinine is normal. -UA 4/5 with innumerable RBCs, but urine sample not grossly bloody. Urinary tract infection: Urine culture positive for Proteus mirabilis and GBS on 01/20. Patient completed course of antibiotics. Abdominal pelvis CT 03/06 shows decompressed bladder with circumferential bladder wall thickening and intraluminal air possibly indicating cystitis, but the patient had been afebrile with normal WBC count. Urine culture 05/31 with Serratia marcescens, Pseudomonas, and Enterococcus faecalis. Patient was started on antibiotics. Repeat urine culture on 06/04 only reveals contaminants. Urine culture 4/5 with Enterococcus faecalis and Pseudomonas Aeruginosa similar to previous culture on 05/31. Patient remains afebrile. CBC with normal white blood cell count. Hematuria has resolved. Patient is likely colonized or urine is contaminated. Will not treat for UTI unless patient becomes febrile or has elevated white blood cell. Mild obstructive uropathy: Resolved. Appreciate urology recommendations. Suprapubic catheter to be changed monthly; it was last changed on 07/31/16. Abdominal pelvis CT 03/06/16 shows resolution of right sided hydronephrosis. Upper GI bleeding: Resolved with recurrent rectal bleeding. Hemoglobin stable. GI reevaluated patient on 05/04. Presumed hemorrhoids, s/p Anusol HC for total of 2 weeks. Continue PPI. Protein calorie malnutrition: Improving Consulted dietitian who indicated that patient may be converted to bolus feeding Jevity 1.5 w/ bolus 1.5 cans(360ml) @ 0800 and 2000 and 1-can(240ml) @ 1100, 1400 and 1700. Free Water Flush 100ml before and after each bolus feeding. Ensure Enlive tid and chocolate pudding tid Prealbumin level 25. Patient desired to eat and speech therapy advised puree diet, thin liquids, but patient has not been eating. Marble Machine Tender suggested considering appetite stimulant. This was discussed with attending, but we do not believe this would be beneficial for patient and would add unnecessary risk to the patient. Will continue with tube feeds only. Dementia with inappropriate behavior, mood disorder improved Patient had inappropriate behavior which is resolved now. He has been very appropriate for a long time now. Patient has been hospitalized for similar events in 2015 Consulted psychiatry for further evaluation, who indicated that this is a frontal lobe dementia Risperdal 0.25 mg during the day, Risperdal 0.5 mg at night. Risperdal was discontinued per POA request. Continue Remeron Psychiatry was reconsulted and is ok with discontinuation of Risperdal. Seborrheic dermatitis: Flaky skin to the face and neck. Improved s/p one time dose of Ketoconazole 2% shampoo. Continue hydrocortisone cream for 2 weeks Chalazion: Persistent nodule R upper eyelid. There is no evidence of preseptal cellulitis. -Warm compresses were applied but it was greater than 2 weeks without significant improvement. -Ophthalmology was consulted and evaluated patient on 03/26. S/p warm compresses and Tobradex 4 times a day OD x 2 weeks. Patient was intermittently compliant with eyedrops. -No worsening. Follow-up outpatient. Hypotension: Blood pressure labile. Continue Midodrine. Patient on max dose. Increase free water flushes as needed. Pre-renal azotemia: BUN mildly elevated at 22. Continue free water flushes Stage I decubitus ulcer, sacral skin tear: Continue wound care. Frequent turning of patient. Candidal infection: buttocks affected with satellite lesions to the perineum. -S/p Nystatin and clotrimazole Weakness: Continue physical therapy Nursing staff to get patient up out of bed at least 3 times daily Palliative care evaluation According to palliative care notes family wishes aggressive management, they are expecting him to improve, go to a rehabilitation facility and then improve enough to go home. They are declining hospice. DVT prophylaxis: SCDs. Avoid chemical prophylaxis secondary to GI bleed. Discharge Planning 08/16: [place] [facility] considering for acceptance but son has to go to a conference there first. Madeline Ortez Aug 24, 2016 11:53
[2016-08-24 20:00] VITALS: BP 105/57; PULSE 71; RESP 20; TEMP 98; O2SAT 94
[2016-08-24] MEDS: MIRTAZAPINE 15 MG TAB PEG SCH (21:23)
[2016-08-25] MEDS: MIDODRINE 5 MG TAB PO SCH ×3 (06:13→17:09)
[2016-08-25 08:00] VITALS: BP 103/67; PULSE 68; RESP 17; TEMP 97.1; O2SAT 94
[2016-08-25] MEDS: FREE WATER G-TUBE SCH (09:00)
[2016-08-25] MEDS: HYDROCORTISONE 1% LOTN 120 ML BTL TOPICAL SCH ×2 (09:22→21:07)
[2016-08-25] MEDS: LANSOPRAZOLE SOLUTAB 30 MG TAB PEG SCH (09:22)
[2016-08-25] MEDS: ALLOPURINOL 100 MG TAB PEG SCH (09:22)
--- NOTE | 2016-08-25 11:58 | HHI.PR ---
Subjective Remarks F/u for dementia. No acute complaints. Objective Vitals Vital Signs Date Time Temp Pulse Resp B/P Pulse Ox O2 Delivery O2 Flow Rate FiO2 08/25/16 08:00 97.1 68 17 103/67 94 08/24/16 20:00 98.0 71 20 105/57 94 I/O 08/24/16 08/24/16 08/24/16 08/25/16 08/25/16 08/25/16 07:00 15:00 23:00 07:00 15:00 23:00 Intake Total 2520 ml Output Total 300 ml 725 ml 100 ml Balance -300 ml 1795 ml -100 ml Tube Feeding 1440 ml Tube Irrigant 280 ml Other 800 ml Output Urine Total 300 ml 725 ml 100 ml # Bowel Movements 1 2 1 Objective Remarks GENERAL: Well developed male in no apparent distress. CARDIOVASCULAR: Regular rate and rhythm. RESPIRATORY: No accessory muscle use. CTAB. GASTROINTESTINAL: Abdomen is soft, non-tender, nondistended. NEURO: Awake and alert. Does not speak aloud. Procedures None Urinary Catheter: Yes Assessment to: Continue Soto insert reason: Obstruction/Retention Date of Insertion: Jul 31, 2016 Vascular Central Line Catheter: No A/P Problem List: (1) Decreased urine output ICD Code: R34 Status: Acute (2) Prerenal azotemia ICD Code: R79.89 Status: Acute (3) Hematuria ICD Code: R31.9 Status: Acute Assessment and Plan Hematuria: Resolved. Blood clots in his urine and urine is pink tinged. -Patient is not on anticoagulation. -Hemoglobin normal. -Creatinine is normal. -UA 4/5 with innumerable RBCs, but urine sample not grossly bloody. Urinary tract infection: Urine culture positive for Proteus mirabilis and GBS on 01/20. Patient completed course of antibiotics. Abdominal pelvis CT 03/06 shows decompressed bladder with circumferential bladder wall thickening and intraluminal air possibly indicating cystitis, but the patient had been afebrile with normal WBC count. Urine culture 05/31 with Serratia marcescens, Pseudomonas, and Enterococcus faecalis. Patient was started on antibiotics. Repeat urine culture on 06/04 only reveals contaminants. Urine culture 4/5 with Enterococcus faecalis and Pseudomonas Aeruginosa similar to previous culture on 05/31. Patient remains afebrile. CBC with normal white blood cell count. Hematuria has resolved. Patient is likely colonized or urine is contaminated. Will not treat for UTI unless patient becomes febrile or has elevated white blood cell. Mild obstructive uropathy: Resolved. Appreciate urology recommendations. Suprapubic catheter to be changed monthly; it was last changed on 07/31/16. Abdominal pelvis CT 03/06/16 shows resolution of right sided hydronephrosis. Upper GI bleeding: Resolved with recurrent rectal bleeding. Hemoglobin stable. GI reevaluated patient on 05/04. Presumed hemorrhoids, s/p Anusol HC for total of 2 weeks. Continue PPI. Protein calorie malnutrition: Improving Consulted dietitian who indicated that patient may be converted to bolus feeding Jevity 1.5 w/ bolus 1.5 cans(360ml) @ 0800 and 2000 and 1-can(240ml) @ 1100, 1400 and 1700. Free Water Flush 100ml before and after each bolus feeding. Ensure Enlive tid and chocolate pudding tid Prealbumin level 25. Patient desired to eat and speech therapy advised puree diet, thin liquids, but patient has not been eating. Director Safety Council suggested considering appetite stimulant. This was discussed with attending, but we do not believe this would be beneficial for patient and would add unnecessary risk to the patient. Will continue with tube feeds only. Dementia with inappropriate behavior, mood disorder improved Patient had inappropriate behavior which is resolved now. He has been very appropriate for a long time now. Patient has been hospitalized for similar events in 2015 Consulted psychiatry for further evaluation, who indicated that this is a frontal lobe dementia Risperdal 0.25 mg during the day, Risperdal 0.5 mg at night. Risperdal was discontinued per POA request. Continue [facility] Psychiatry was reconsulted and is ok with discontinuation of Risperdal. Seborrheic dermatitis: Flaky skin to the face and neck. Improved s/p one time dose of Ketoconazole 2% shampoo. Continue hydrocortisone cream for 2 weeks Chalazion: Persistent nodule R upper eyelid. There is no evidence of preseptal cellulitis. -Warm compresses were applied but it was greater than 2 weeks without significant improvement. -Ophthalmology was consulted and evaluated patient on 03/26. S/p warm compresses and Tobradex 4 times a day OD x 2 weeks. Patient was intermittently compliant with eyedrops. -No worsening. Follow-up outpatient. Hypotension: Blood pressure labile. Continue Midodrine. Patient on max dose. Increase free water flushes as needed. Pre-renal azotemia: BUN mildly elevated at 22. Continue free water flushes Stage I decubitus ulcer, sacral skin tear: Continue wound care. Frequent turning of patient. Candidal infection: buttocks affected with satellite lesions to the perineum. -S/p Nystatin and clotrimazole Weakness: Continue physical therapy Nursing staff to get patient up out of bed at least 3 times daily Palliative care evaluation According to palliative care notes family wishes aggressive management, they are expecting him to improve, go to a rehabilitation facility and then improve enough to go home. They are declining hospice. DVT prophylaxis: SCDs. Avoid chemical prophylaxis secondary to GI bleed. Discharge Planning 08/16: [place] [facility] considering for acceptance but son has to go to a conference there first. Madeline Ortez Aug 25, 2016 11:58
[2016-08-25 20:00] VITALS: BP 107/73; PULSE 80; RESP 16; TEMP 97.9; O2SAT 96
[2016-08-25] MEDS: MIRTAZAPINE 15 MG TAB PEG SCH (21:07)
[2016-08-26] MEDS: MIDODRINE 5 MG TAB PO SCH ×3 (06:55→16:42)
[2016-08-26 08:00] VITALS: BP 103/57; PULSE 74; RESP 16; TEMP 97.1; O2SAT 96
[2016-08-26] MEDS: LANSOPRAZOLE SOLUTAB 30 MG TAB PEG SCH (09:50)
[2016-08-26] MEDS: ACETAMINOPHEN 325 MG TAB PO PRN (09:51)
[2016-08-26] MEDS: ALLOPURINOL 100 MG TAB PEG SCH (09:51)
[2016-08-26] MEDS: FREE WATER G-TUBE SCH (09:51)
[2016-08-26] MEDS: HYDROCORTISONE 1% LOTN 120 ML BTL TOPICAL SCH ×2 (09:52→21:27)
--- NOTE | 2016-08-26 10:37 | HHI.PR ---
Subjective Remarks Follow-up for dementia. No acute complaints. Objective Vitals Vital Signs Date Time Temp Pulse Resp B/P Pulse Ox O2 Delivery O2 Flow Rate FiO2 08/26/16 08:00 97.1 74 16 103/57 96 08/25/16 20:00 97.9 80 16 107/73 96 I/O 08/25/16 08/25/16 08/25/16 08/26/16 08/26/16 08/26/16 07:00 15:00 23:00 07:00 15:00 23:00 Intake Total 2540 ml Output Total 100 ml 1700 ml 100 ml Balance -100 ml 840 ml -100 ml Tube Feeding 1440 ml Tube Irrigant 300 ml Other 800 ml Output Urine Total 100 ml 1700 ml 100 ml # Bowel Movements 1 4 Objective Remarks GENERAL: Well developed male in no apparent distress. CARDIOVASCULAR: Regular rate and rhythm. RESPIRATORY: No accessory muscle use. CTAB. GASTROINTESTINAL: Abdomen is soft, non-tender, nondistended. NEURO: Sleeping when I enter the room. Nods but does not speak aloud. Procedures None Urinary Catheter: Yes Assessment to: Continue Soto insert reason: Obstruction/Retention Date of Insertion: Jul 31, 2016 Vascular Central Line Catheter: No A/P Problem List: (1) Decreased urine output ICD Code: R34 Status: Acute (2) Prerenal azotemia ICD Code: R79.89 Status: Acute (3) Hematuria ICD Code: R31.9 Status: Acute Assessment and Plan Hematuria: Resolved. Blood clots in his urine and urine is pink tinged. -Patient is not on anticoagulation. -Hemoglobin normal. -Creatinine is normal. -UA 4/5 with innumerable RBCs, but urine sample not grossly bloody. Urinary tract infection: Urine culture positive for Proteus mirabilis and GBS on 01/20. Patient completed course of antibiotics. Abdominal pelvis CT 03/06 shows decompressed bladder with circumferential bladder wall thickening and intraluminal air possibly indicating cystitis, but the patient had been afebrile with normal WBC count. Urine culture 05/31 with Serratia marcescens, Pseudomonas, and Enterococcus faecalis. Patient was started on antibiotics. Repeat urine culture on 06/04 only reveals contaminants. Urine culture 4/5 with Enterococcus faecalis and Pseudomonas Aeruginosa similar to previous culture on 05/31. Patient remains afebrile. CBC with normal white blood cell count. Hematuria has resolved. Patient is likely colonized or urine is contaminated. Will not treat for UTI unless patient becomes febrile or has elevated white blood cell. Mild obstructive uropathy: Resolved. Appreciate urology recommendations. Suprapubic catheter to be changed monthly; next change 08/28/16. Abdominal pelvis CT 03/06/16 shows resolution of right sided hydronephrosis. Upper GI bleeding: Resolved with recurrent rectal bleeding. Hemoglobin stable. GI reevaluated patient on 05/04. Presumed hemorrhoids, s/p Anusol HC for total of 2 weeks. Continue PPI. Protein calorie malnutrition: Improving Consulted dietitian who indicated that patient may be converted to bolus feeding Jevity 1.5 w/ bolus 1.5 cans(360ml) @ 0800 and 2000 and 1-can(240ml) @ 1100, 1400 and 1700. Free Water Flush 100ml before and after each bolus feeding. Ensure Enlive tid and chocolate pudding tid Prealbumin level 25. Patient desired to eat and speech therapy advised puree diet, thin liquids, but patient has not been eating. [employer] Administrator suggested considering appetite stimulant. This was discussed with attending, but we do not believe this would be beneficial for patient and would add unnecessary risk to the patient. Will continue with tube feeds only. Dementia with inappropriate behavior, mood disorder improved Patient had inappropriate behavior which is resolved now. He has been very appropriate for a long time now. Patient has been hospitalized for similar events in 2015 Consulted psychiatry for further evaluation, who indicated that this is a frontal lobe dementia Risperdal 0.25 mg during the day, Risperdal 0.5 mg at night. Risperdal was discontinued per POA request. Continue [facility] Psychiatry was reconsulted and is ok with discontinuation of Risperdal. Seborrheic dermatitis: Flaky skin to the face and neck. Improved s/p one time dose of Ketoconazole 2% shampoo. Continue hydrocortisone cream for 2 weeks Chalazion: Persistent nodule R upper eyelid. There is no evidence of preseptal cellulitis. -Warm compresses were applied but it was greater than 2 weeks without significant improvement. -Ophthalmology was consulted and evaluated patient on 03/26. S/p warm compresses and Tobradex 4 times a day OD x 2 weeks. Patient was intermittently compliant with eyedrops. -No worsening. Follow-up outpatient. Hypotension: Blood pressure labile. Continue Midodrine. Patient on max dose. Increase free water flushes as needed. Pre-renal azotemia: BUN mildly elevated at 22. Continue free water flushes Stage I decubitus ulcer, sacral skin tear: Continue wound care. Frequent turning of patient. Candidal infection: buttocks affected with satellite lesions to the perineum. -S/p Nystatin and clotrimazole Weakness: Continue physical therapy Nursing staff to get patient up out of bed at least 3 times daily Palliative care evaluation According to palliative care notes family wishes aggressive management, they are expecting him to improve, go to a rehabilitation facility and then improve enough to go home. They are declining hospice. DVT prophylaxis: SCDs. Avoid chemical prophylaxis secondary to GI bleed. Discharge Planning 08/16: [place] [facility] considering for acceptance but son has to go to a conference there first. 08/26: continues to make calls to son for assistance to get patient placed as son needs to go to [place] [facility]. Madeline Ortez Aug 26, 2016 10:37
[2016-08-26 20:00] VITALS: BP 114/64; PULSE 89; RESP 24; TEMP 98; O2SAT 96
[2016-08-26] MEDS: MIRTAZAPINE 15 MG TAB PEG SCH (21:27)
[2016-08-27] MEDS: MIDODRINE 5 MG TAB PO SCH ×3 (06:13→17:18)
[2016-08-27 08:00] VITALS: BP 114/78; PULSE 62; RESP 18; TEMP 97.5; O2SAT 98
[2016-08-27] MEDS: FREE WATER G-TUBE SCH (08:13)
[2016-08-27] MEDS: ALLOPURINOL 100 MG TAB PEG SCH (08:15)
[2016-08-27] MEDS: LANSOPRAZOLE SOLUTAB 30 MG TAB PEG SCH (08:15)
[2016-08-27] MEDS: HYDROCORTISONE 1% LOTN 120 ML BTL TOPICAL SCH ×2 (08:18→21:03)
--- NOTE | 2016-08-27 12:38 | HHI.PR ---
Subjective Remarks Patient seen and examined today for follow-up on deconditioning, patient denies any new complaints. No change in clinical status. Objective Vitals Vital Signs Date Time Temp Pulse Resp B/P Pulse Ox O2 Delivery O2 Flow Rate FiO2 08/27/16 08:00 97.5 62 18 114/78 98 08/26/16 20:00 98.0 89 24 114/64 96 I/O 08/26/16 08/26/16 08/26/16 08/27/16 08/27/16 08/27/16 07:00 15:00 23:00 07:00 15:00 23:00 Intake Total 0 ml 0 ml 0 ml Output Total 100 ml 1000 ml 375 ml 400 ml Balance -100 ml -1000 ml -375 ml -400 ml Intake Oral 0 ml 0 ml 0 ml Output Urine Total 100 ml 1000 ml 375 ml 400 ml # Bowel Movements 2 1 2 Objective Remarks GENERAL: Well-developed, well-nourished, in no acute distress. Patient awake and alert HEENT: Head is normocephalic without any lesions or masses noted. Facial features are symmetric. Eyes: Extraocular muscles are intact. Conjunctivae were clear. Correlate base scaling noted on chin and nasolabial folds NECK: Trachea midline no deviation. CARDIAC: Regular rhythm, regular rate. S1/S2 are heard. No murmurs gallops or rubs. LUNGS: Clear to auscultation bilaterally. No wheeze, rhonchi or rales. No use of accessory muscles on inspiration or expiration. ABDOMEN: Soft, nontender. Nondistended. Bowel sounds heard in all 4 quadrants. No organomegaly or masses. Negative rebound, negative guarding, suprapubic catheter in place, PEG tube noted EXTREMITIES: No edema, pulses are equal bilaterally. No cyanosis or clubbing NEUROLOGY: Mood and affect appear appropriate. Cranial nerves II through XII grossly intact. Moving all extremities SKIN: Patient's back has skin breakdown on his back and sacral area. Procedures None Urinary Catheter: Yes Assessment to: Continue Soto insert reason: Obstruction/Retention Date of Insertion: Jul 31, 2016 Vascular Central Line Catheter: No A/P Assessment and Plan Weakness: Continue physical therapy Nursing staff to get patient up out of bed at least 3 times daily Dementia with inappropriate behavior, mood disorder improved Patient has been hospitalized for similar events in 2014 Consulted psychiatry for further evaluation, who indicated that this is a frontal lobe dementia Risperdal discontinued at family's request Continue Remeron Parkinson's disease: Patient has dementia and resting tremor. Chronic, stable. GI bleed with presenting of Upper GI bleed, patient with intermittent rectal bleeding: Resolved Hemoglobin continues to remain stable GI was following and reevaluated on 05/04/16 Presumed hemorrhoids, status post Anusol HC for 2 weeks Continue PPI. Protein calorie malnutrition: Improving Consulted dietitian who indicated that patient may be converted to bolus feeding Jevity 1.5, 6 cans per day. 1.5 cans that 0800 and 2000, 1 can at 1100, 1400, 1700 Prealbumin level 24 Ensure Enlive 3 times a day since pudding 3 times a day Hypotension with episodes of hypertension: Stable Blood pressure labile. Continue monitor blood pressure Continue Midodrine. Mild obstructive uropathy: Resolved. Appreciate urology recommendations. Suprapubic catheter in place, last changed 07/31/16. Abdominal pelvis CT 03/06/16 shows resolution of right sided hydronephrosis. 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 Stage I decubitus ulcer, sacral skin tear: Continue wound care. Seborrhea dermatitis Continue hydrocortisone cream for 2 weeks Palliative care evaluation According to palliative care notes. Family wishes aggressive management, they are expecting him to improve, go to a rehabilitation facility and then improve enough to go home. They are deferring hospice. DVT prophylaxis: SCDs. Avoid chemical prophylaxis secondary to GI bleed. Records reviewed, no change in present treatment plan Discharge Planning Discharge planning per case management. Case management still trying to reach out to nursing facilities for acceptance. Jaguar Walker Aug 27, 2016 12:38
[2016-08-27 20:00] VITALS: BP 131/79; PULSE 69; RESP 16; TEMP 96.8; O2SAT 98
[2016-08-27] MEDS: MIRTAZAPINE 15 MG TAB PEG SCH (21:02)
[2016-08-28] MEDS: MIDODRINE 5 MG TAB PO SCH ×3 (06:15→16:11)
[2016-08-28] MEDS: ALLOPURINOL 100 MG TAB PEG SCH (07:40)
[2016-08-28] MEDS: HYDROCORTISONE 1% LOTN 120 ML BTL TOPICAL SCH (07:40)
[2016-08-28] MEDS: LANSOPRAZOLE SOLUTAB 30 MG TAB PEG SCH (07:40)
[2016-08-28] MEDS: FREE WATER G-TUBE SCH (07:40)
[2016-08-28 08:00] VITALS: BP 119/79; PULSE 80; RESP 18; TEMP 95.8; O2SAT 98
--- NOTE | 2016-08-28 10:02 | HHI.PR ---
Subjective Remarks Patient seen and examined today for follow-up on deconditioning. Patient lying in bed as usual. Denies any new complaints. States he has a left the hospital because I have not carried him out. Objective Vitals Vital Signs Date Time Temp Pulse Resp B/P Pulse Ox O2 Delivery O2 Flow Rate FiO2 08/28/16 08:00 95.8 80 18 119/79 98 08/27/16 20:00 96.8 69 16 131/79 98 I/O 08/27/16 08/27/16 08/27/16 08/28/16 08/28/16 08/28/16 07:00 15:00 23:00 07:00 15:00 23:00 Intake Total 0 ml 0 ml 1680 ml 0 ml Output Total 400 ml 650 ml 700 ml 300 ml 100 ml Balance -400 ml -650 ml 980 ml -300 ml -100 ml Intake Oral 0 ml 0 ml 0 ml 0 ml Tube Feeding 1400 ml Tube Irrigant 180 ml Other 100 ml Output Urine Total 400 ml 650 ml 700 ml 300 ml 100 ml # Bowel Movements 2 2 1 3 Objective Remarks GENERAL: Well-developed, well-nourished, in no acute distress. Patient awake and alert HEENT: Head is normocephalic without any lesions or masses noted. Facial features are symmetric. Eyes: Extraocular muscles are intact. Conjunctivae were clear. Correlate base scaling noted on chin and nasolabial folds NECK: Trachea midline no deviation. CARDIAC: Regular rhythm, regular rate. S1/S2 are heard. No murmurs gallops or rubs. LUNGS: Clear to auscultation bilaterally. No wheeze, rhonchi or rales. No use of accessory muscles on inspiration or expiration. ABDOMEN: Soft, nontender. Nondistended. Bowel sounds heard in all 4 quadrants. No organomegaly or masses. Negative rebound, negative guarding, suprapubic catheter in place, PEG tube noted EXTREMITIES: No edema, pulses are equal bilaterally. No cyanosis or clubbing NEUROLOGY: Mood and affect appear appropriate. Cranial nerves II through XII grossly intact. Moving all extremities SKIN: Patient's back has skin breakdown on his back and sacral area. Procedures None Urinary Catheter: Yes Assessment to: Continue Soto insert reason: Obstruction/Retention Date of Insertion: Jul 31, 2016 Vascular Central Line Catheter: No A/P Assessment and Plan Weakness: Continue physical therapy Nursing staff to get patient up out of bed at least 3 times daily Dementia with inappropriate behavior, mood disorder improved Patient has been hospitalized for similar events in 2015 Consulted psychiatry for further evaluation, who indicated that this is a frontal lobe dementia Risperdal discontinued at family's request Continue Remeron Parkinson's disease: Patient has dementia and resting tremor. Chronic, stable. GI bleed with presenting of Upper GI bleed, patient with intermittent rectal bleeding: Resolved Hemoglobin continues to remain stable GI was following and reevaluated on 05/04/16 Presumed hemorrhoids, status post Anusol HC for 2 weeks Continue PPI. Protein calorie malnutrition: Improving Consulted dietitian who indicated that patient may be converted to bolus feeding Jevity 1.5, 6 cans per day. 1.5 cans that 0800 and 2000, 1 can at 1100, 1400, 1700 Prealbumin level 24 Ensure Enlive 3 times a day since pudding 3 times a day Hypotension with episodes of hypertension: Stable Blood pressure labile. Continue monitor blood pressure Continue Midodrine. Mild obstructive uropathy: Resolved. Appreciate urology recommendations. Suprapubic catheter in place, last changed 07/31/16. Abdominal pelvis CT 03/06/16 shows resolution of right sided hydronephrosis. 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 Stage I decubitus ulcer, sacral skin tear: Continue wound care. Seborrhea dermatitis Continue hydrocortisone cream for 2 weeks Palliative care evaluation According to palliative care notes. Family wishes aggressive management, they are expecting him to improve, go to a rehabilitation facility and then improve enough to go home. They are deferring hospice. DVT prophylaxis: SCDs. Avoid chemical prophylaxis secondary to GI bleed. Records reviewed, no change in present treatment plan Discharge Planning Discharge planning per case management. Case management still trying to reach out to son to help with nursing facilities for acceptance. Jaguar Walker Aug 28, 2016 10:02
[2016-08-28 20:00] VITALS: BP 136/87; PULSE 88; RESP 20; TEMP 98.1; O2SAT 98
[2016-08-28] MEDS: MIRTAZAPINE 15 MG TAB PEG SCH (22:30)
[2016-08-29] MEDS: MIDODRINE 5 MG TAB PO SCH ×3 (06:00→16:10)
[2016-08-29] MEDS: FREE WATER G-TUBE SCH (09:00)
[2016-08-29 09:35] VITALS: BP 103/70; PULSE 79; RESP 17; TEMP 96.8; O2SAT 97
[2016-08-29] MEDS: ALLOPURINOL 100 MG TAB PEG SCH (09:36)
[2016-08-29] MEDS: LANSOPRAZOLE SOLUTAB 30 MG TAB PEG SCH (09:36)
--- NOTE | 2016-08-29 11:00 | HHI.PR ---
Subjective Remarks Patient seen and examined today for deconditioning. Patient denies any new complaints. No change in clinical status. Objective Vitals Vital Signs Date Time Temp Pulse Resp B/P Pulse Ox O2 Delivery O2 Flow Rate FiO2 08/29/16 09:35 96.8 79 17 103/70 97 08/28/16 20:00 98.1 88 20 136/87 98 I/O 08/28/16 08/28/16 08/28/16 08/29/16 08/29/16 08/29/16 07:00 15:00 23:00 07:00 15:00 23:00 Intake Total 0 ml 0 ml 1180 ml 0 ml Output Total 300 ml 450 ml 200 ml 200 ml Balance -300 ml -450 ml 980 ml -200 ml Intake Oral 0 ml 0 ml 0 ml 0 ml Tube Feeding 1080 ml Other 100 ml Output Urine Total 300 ml 450 ml 200 ml 200 ml # Bowel Movements 3 1 2 1 Objective Remarks GENERAL: Well-developed, well-nourished, in no acute distress. Patient awake and alert HEENT: Head is normocephalic without any lesions or masses noted. Facial features are symmetric. Eyes: Extraocular muscles are intact. Conjunctivae were clear. Correlate base scaling noted on chin and nasolabial folds NECK: Trachea midline no deviation. CARDIAC: Regular rhythm, regular rate. S1/S2 are heard. No murmurs gallops or rubs. LUNGS: Clear to auscultation bilaterally. No wheeze, rhonchi or rales. No use of accessory muscles on inspiration or expiration. ABDOMEN: Soft, nontender. Nondistended. Bowel sounds heard in all 4 quadrants. No organomegaly or masses. Negative rebound, negative guarding, suprapubic catheter in place, PEG tube noted EXTREMITIES: No edema, pulses are equal bilaterally. No cyanosis or clubbing NEUROLOGY: Mood and affect appear appropriate. Cranial nerves II through XII grossly intact. Moving all extremities SKIN: Patient's back has skin breakdown on his back and sacral area. Procedures None Urinary Catheter: Yes Assessment to: Continue Soto insert reason: Obstruction/Retention Date of Insertion: Jul 31, 2016 Vascular Central Line Catheter: No A/P Assessment and Plan Weakness: Continue physical therapy Nursing staff to get patient up out of bed at least 3 times daily Dementia with inappropriate behavior, mood disorder improved Patient has been hospitalized for similar events in 2015 Consulted psychiatry for further evaluation, who indicated that this is a frontal lobe dementia Risperdal discontinued at family's request Continue Remeron Parkinson's disease: Patient has dementia and resting tremor. Chronic, stable. GI bleed with presenting of Upper GI bleed, patient with intermittent rectal bleeding: Resolved Hemoglobin continues to remain stable GI was following and reevaluated on 05/04/16 Presumed hemorrhoids, status post Anusol HC for 2 weeks Continue PPI. Protein calorie malnutrition: Improving Consulted dietitian who indicated that patient may be converted to bolus feeding Jevity 1.5, 6 cans per day. 1.5 cans that 0800 and 2000, 1 can at 1100, 1400, 1700 Prealbumin level 24 Ensure Enlive 3 times a day since pudding 3 times a day Hypotension with episodes of hypertension: Stable Blood pressure labile. Continue monitor blood pressure Continue Midodrine. Mild obstructive uropathy: Resolved. Appreciate urology recommendations. Suprapubic catheter in place, last changed 07/31/16. Abdominal pelvis CT 03/06/16 shows resolution of right sided hydronephrosis. 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 Stage I decubitus ulcer, sacral skin tear: Continue wound care. Seborrhea dermatitis Continue hydrocortisone cream for 2 weeks Palliative care evaluation According to palliative care notes. Family wishes aggressive management, they are expecting him to improve, go to a rehabilitation facility and then improve enough to go home. They are deferring hospice. DVT prophylaxis: SCDs. Avoid chemical prophylaxis secondary to GI bleed. Records reviewed, no change in present treatment plan Discharge Planning Discharge planning per case management. Case management still trying to reach out to son to help with nursing facilities for acceptance. Jaguar Walker Aug 29, 2016 11:00
[2016-08-29 20:00] VITALS: BP 116/76; PULSE 76; RESP 20; TEMP 96; O2SAT 96
[2016-08-29] MEDS: MIRTAZAPINE 15 MG TAB PEG SCH (20:48)
[2016-08-30] MEDS: MIDODRINE 5 MG TAB PO SCH ×3 (05:25→17:59)
[2016-08-30 08:00] VITALS: BP 109/70; PULSE 72; RESP 20; TEMP 97.6; O2SAT 95
[2016-08-30] MEDS: FREE WATER G-TUBE SCH (09:00)
[2016-08-30] MEDS: ALLOPURINOL 100 MG TAB PEG SCH (10:06)
[2016-08-30] MEDS: LANSOPRAZOLE SOLUTAB 30 MG TAB PEG SCH (10:06)
--- NOTE | 2016-08-30 10:17 | HHI.PR ---
Subjective Remarks Patient seen and examined today for follow-up on deconditioning. Patient is not in a good mood today. He does not want to move, get out of bed, does not want to be bothered Objective Vitals Vital Signs Date Time Temp Pulse Resp B/P Pulse Ox O2 Delivery O2 Flow Rate FiO2 08/30/16 08:00 97.6 72 20 109/70 95 08/29/16 20:00 96.0 76 20 116/76 96 I/O 08/29/16 08/29/16 08/29/16 08/30/16 08/30/16 08/30/16 07:00 15:00 23:00 07:00 15:00 23:00 Intake Total 0 ml 1180 ml 360 ml 0 ml Output Total 200 ml 375 ml 200 ml Balance -200 ml 1180 ml -15 ml -200 ml Intake Oral 0 ml 0 ml 0 ml Tube Feeding 1080 ml 360 ml Tube Irrigant 0 ml Other 100 ml Output Urine Total 200 ml 375 ml 200 ml # Voids 0 # Bowel Movements 1 2 1 Objective Remarks GENERAL: Well-developed, well-nourished, in no acute distress. Patient awake and alert HEENT: Head is normocephalic without any lesions or masses noted. Facial features are symmetric. Eyes: Extraocular muscles are intact. Conjunctivae were clear. Correlate base scaling noted on chin and nasolabial folds NECK: Trachea midline no deviation. CARDIAC: Regular rhythm, regular rate. S1/S2 are heard. No murmurs gallops or rubs. LUNGS: Clear to auscultation bilaterally. No wheeze, rhonchi or rales. No use of accessory muscles on inspiration or expiration. ABDOMEN: Soft, nontender. Nondistended. Bowel sounds heard in all 4 quadrants. No organomegaly or masses. Negative rebound, negative guarding, suprapubic catheter in place, PEG tube noted EXTREMITIES: No edema, pulses are equal bilaterally. No cyanosis or clubbing NEUROLOGY: Mood and affect appear appropriate. Cranial nerves II through XII grossly intact. Moving all extremities SKIN: Patient's back has skin breakdown on his back and sacral area. Procedures None Urinary Catheter: Yes Assessment to: Continue Soto insert reason: Obstruction/Retention Date of Insertion: Jul 31, 2016 Vascular Central Line Catheter: No A/P Assessment and Plan Weakness: Continue physical therapy Nursing staff to get patient up out of bed at least 3 times daily Dementia with inappropriate behavior, mood disorder improved Patient has been hospitalized for similar events in 2015 Consulted psychiatry for further evaluation, who indicated that this is a frontal lobe dementia Risperdal discontinued at family's request Continue Remeron Parkinson's disease: Patient has dementia and resting tremor. Chronic, stable. GI bleed with presenting of Upper GI bleed, patient with intermittent rectal bleeding: Resolved Hemoglobin continues to remain stable GI was following and reevaluated on 05/04/16 Presumed hemorrhoids, status post Anusol HC for 2 weeks Continue PPI. Protein calorie malnutrition: Improving Consulted dietitian who indicated that patient may be converted to bolus feeding Jevity 1.5, 6 cans per day. 1.5 cans that 0800 and 2000, 1 can at 1100, 1400, 1700 Prealbumin level 24 Ensure Enlive 3 times a day since pudding 3 times a day Hypotension with episodes of hypertension: Stable Blood pressure labile. Continue monitor blood pressure Continue Midodrine. Mild obstructive uropathy: Resolved. Appreciate urology recommendations. Suprapubic catheter in place, last changed 07/31/16. Abdominal pelvis CT 03/06/16 shows resolution of right sided hydronephrosis. 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 Stage I decubitus ulcer, sacral skin tear: Continue wound care. Seborrhea dermatitis Continue hydrocortisone cream for 2 weeks Palliative care evaluation According to palliative care notes. Family wishes aggressive management, they are expecting him to improve, go to a rehabilitation facility and then improve enough to go home. They are deferring hospice. DVT prophylaxis: SCDs. Avoid chemical prophylaxis secondary to GI bleed. Records reviewed, no change in present treatment plan Discharge Planning Discharge planning per case management. Case management still trying to reach out to son to help with nursing facilities for acceptance. Jaguar Walker Aug 30, 2016 10:17
[2016-08-30 20:00] VITALS: BP 103/73; PULSE 87; RESP 20; TEMP 96.6; O2SAT 97
[2016-08-30] MEDS: MIRTAZAPINE 15 MG TAB PEG SCH (23:37)
[2016-08-31 08:00] VITALS: BP 105/73; PULSE 76; RESP 17; TEMP 98.4; O2SAT 95
[2016-08-31] MEDS: LANSOPRAZOLE SOLUTAB 30 MG TAB PEG SCH (09:33)
[2016-08-31] MEDS: MIDODRINE 5 MG TAB PO SCH ×3 (09:33→17:58)
[2016-08-31] MEDS: ALLOPURINOL 100 MG TAB PEG SCH (09:33)
[2016-08-31] MEDS: FREE WATER G-TUBE SCH (09:34)
--- NOTE | 2016-08-31 11:50 | HHI.PR ---
Subjective Remarks Patient seen and examined today in follow-up for deconditioning. Patient denies any new complaints. PEG tube was clogged this morning. Charge nurse was able to get a clearer and is working at this time. Objective Vitals Vital Signs Date Time Temp Pulse Resp B/P Pulse Ox O2 Delivery O2 Flow Rate FiO2 08/31/16 08:00 98.4 76 17 105/73 95 08/30/16 20:00 96.6 87 20 103/73 97 I/O 08/30/16 08/30/16 08/30/16 08/31/16 08/31/16 08/31/16 07:00 15:00 23:00 07:00 15:00 23:00 Intake Total 0 ml 360 ml Output Total 200 ml 250 ml 250 ml 150 ml Balance -200 ml -250 ml -250 ml -150 ml 360 ml Intake Oral 0 ml IV Total 360 ml Output Urine Total 200 ml 250 ml 250 ml 150 ml # Voids 0 # Bowel Movements 1 2 Objective Remarks GENERAL: Well-developed, well-nourished, in no acute distress. Patient awake and alert HEENT: Head is normocephalic without any lesions or masses noted. Facial features are symmetric. Eyes: Extraocular muscles are intact. Conjunctivae were clear. Correlate base scaling noted on chin and nasolabial folds NECK: Trachea midline no deviation. CARDIAC: Regular rhythm, regular rate. S1/S2 are heard. No murmurs gallops or rubs. LUNGS: Clear to auscultation bilaterally. No wheeze, rhonchi or rales. No use of accessory muscles on inspiration or expiration. ABDOMEN: Soft, nontender. Nondistended. Bowel sounds heard in all 4 quadrants. No organomegaly or masses. Negative rebound, negative guarding, suprapubic catheter in place, PEG tube noted EXTREMITIES: No edema, pulses are equal bilaterally. No cyanosis or clubbing NEUROLOGY: Mood and affect appear appropriate. Cranial nerves II through XII grossly intact. Moving all extremities SKIN: Patient's back has skin breakdown on his back and sacral area. Procedures None Urinary Catheter: No Date of Insertion: Jul 31, 2016 Vascular Central Line Catheter: No A/P Assessment and Plan Weakness: Continue physical therapy Nursing staff to get patient up out of bed at least 3 times daily Dementia with inappropriate behavior, mood disorder improved Patient has been hospitalized for similar events in 2015 Consulted psychiatry for further evaluation, who indicated that this is a frontal lobe dementia Risperdal discontinued at family's request Continue Remeron Parkinson's disease: Patient has dementia and resting tremor. Chronic, stable. GI bleed with presenting of Upper GI bleed, patient with intermittent rectal bleeding: Resolved Hemoglobin continues to remain stable GI was following and reevaluated on 05/04/16 Presumed hemorrhoids, status post Anusol HC for 2 weeks Continue PPI. Protein calorie malnutrition: Improving Consulted dietitian who indicated that patient may be converted to bolus feeding Jevity 1.5, 6 cans per day. 1.5 cans that 0800 and 2000, 1 can at 1100, 1400, 1700 Prealbumin level 24 Ensure Enlive 3 times a day since pudding 3 times a day Hypotension with episodes of hypertension: Stable Blood pressure labile. Continue monitor blood pressure Continue Midodrine. Mild obstructive uropathy: Resolved. Appreciate urology recommendations. Suprapubic catheter in place, last changed 07/31/16. Change today Abdominal pelvis CT 03/06/16 shows resolution of right sided hydronephrosis. 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 Stage I decubitus ulcer, sacral skin tear: Continue wound care. Seborrhea dermatitis Continue hydrocortisone cream for 2 weeks Palliative care evaluation According to palliative care notes. Family wishes aggressive management, they are expecting him to improve, go to a rehabilitation facility and then improve enough to go home. They are deferring hospice. DVT prophylaxis: SCDs. Avoid chemical prophylaxis secondary to GI bleed. Records reviewed, no change in present treatment plan Discharge Planning Discharge planning per case management. Case management still trying to reach out to son to help with nursing facilities for acceptance. Jaguar Walker Aug 31, 2016 11:50
[2016-08-31 20:00] VITALS: BP 96/52; PULSE 76; RESP 24; TEMP 97.9; O2SAT 96
[2016-08-31] MEDS: MIRTAZAPINE 15 MG TAB PEG SCH (22:53)
[2016-09-01] MEDS: MIDODRINE 5 MG TAB PO SCH ×3 (06:07→17:06)
[2016-09-01 08:00] VITALS: BP 100/62; PULSE 71; RESP 20; TEMP 97.8; O2SAT 95
[2016-09-01] MEDS: FREE WATER G-TUBE SCH (09:30)
[2016-09-01] MEDS: LANSOPRAZOLE SOLUTAB 30 MG TAB PEG SCH (09:30)
[2016-09-01] MEDS: ALLOPURINOL 100 MG TAB PEG SCH (09:30)
--- NOTE | 2016-09-01 11:01 | HHI.PR ---
Subjective Remarks Patient seen and examined today for follow-up on deconditioning. Patient without any improvement or change. Denies any new complaints. Objective Vitals Vital Signs Date Time Temp Pulse Resp B/P Pulse Ox O2 Delivery O2 Flow Rate FiO2 09/01/16 08:00 97.8 71 20 100/62 95 08/31/16 20:00 97.9 76 24 96/52 96 I/O 08/31/16 08/31/16 08/31/16 09/01/16 09/01/16 09/01/16 07:00 15:00 23:00 07:00 15:00 23:00 Intake Total 1190 ml 1250 ml 360 ml Output Total 150 ml 150 ml 250 ml 175 ml Balance -150 ml 1040 ml 1000 ml -175 ml 360 ml Intake Oral 0 ml 0 ml Oral Supplement 360 ml Tube Feeding 840 ml 240 ml 360 ml Other 350 ml 650 ml Output Urine Total 150 ml 150 ml 250 ml 175 ml # Bowel Movements 2 3 2 2 Objective Remarks GENERAL: Well-developed, well-nourished, in no acute distress. Patient awake and alert HEENT: Head is normocephalic without any lesions or masses noted. Facial features are symmetric. Eyes: Extraocular muscles are intact. Conjunctivae were clear. Correlate base scaling noted on chin and nasolabial folds NECK: Trachea midline no deviation. CARDIAC: Regular rhythm, regular rate. S1/S2 are heard. No murmurs gallops or rubs. LUNGS: Clear to auscultation bilaterally. No wheeze, rhonchi or rales. No use of accessory muscles on inspiration or expiration. ABDOMEN: Soft, nontender. Nondistended. Bowel sounds heard in all 4 quadrants. No organomegaly or masses. Negative rebound, negative guarding, suprapubic catheter in place, PEG tube noted EXTREMITIES: No edema, pulses are equal bilaterally. No cyanosis or clubbing NEUROLOGY: Mood and affect appear appropriate. Cranial nerves II through XII grossly intact. Moving all extremities SKIN: Patient's back has skin breakdown on his back and sacral area. Procedures None Urinary Catheter: Yes (suprapubic catheter) Assessment to: Continue Soto insert reason: Obstruction/Retention Date of Insertion: Sep 01, 2016 Vascular Central Line Catheter: No A/P Assessment and Plan Weakness: Continue physical therapy Nursing staff to get patient up out of bed at least 3 times daily Dementia with inappropriate behavior, mood disorder improved Patient has been hospitalized for similar events in 2015 Consulted psychiatry for further evaluation, who indicated that this is a frontal lobe dementia Risperdal discontinued at family's request Continue Remeron Parkinson's disease: Patient has dementia and resting tremor. Chronic, stable. GI bleed with presenting of Upper GI bleed, patient with intermittent rectal bleeding: Resolved Hemoglobin continues to remain stable GI was following and reevaluated on 05/04/16 Presumed hemorrhoids, status post Anusol HC for 2 weeks Continue PPI. Protein calorie malnutrition: Improving Consulted dietitian who indicated that patient may be converted to bolus feeding Jevity 1.5, 6 cans per day. 1.5 cans that 0800 and 2000, 1 can at 1100, 1400, 1700 Prealbumin level 24 Ensure Enlive 3 times a day since pudding 3 times a day Hypotension with episodes of hypertension: Stable Blood pressure labile. Continue monitor blood pressure Continue Midodrine. Mild obstructive uropathy: Resolved. Appreciate urology recommendations. Suprapubic catheter in place, last changed 07/31/16. Change today Abdominal pelvis CT 03/06/16 shows resolution of right sided hydronephrosis. 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 Stage I decubitus ulcer, sacral skin tear: Continue wound care. Seborrhea dermatitis Continue hydrocortisone cream for 2 weeks Palliative care evaluation According to palliative care notes. Family wishes aggressive management, they are expecting him to improve, go to a rehabilitation facility and then improve enough to go home. They are deferring hospice. DVT prophylaxis: SCDs. Avoid chemical prophylaxis secondary to GI bleed. Records reviewed, no change in present treatment plan Discharge Planning Discharge planning per case management. Case management still trying to reach out to son to help with nursing facilities for acceptance. Jaguar Walker Sep 01, 2016 11:01
[2016-09-01 20:00] VITALS: BP 129/80; PULSE 73; RESP 22; TEMP 98.1; O2SAT 97
[2016-09-01] MEDS: MIRTAZAPINE 15 MG TAB PEG SCH (21:00)
[2016-09-02] MEDS: MIDODRINE 5 MG TAB PO SCH ×3 (05:19→17:11)
[2016-09-02 08:00] VITALS: BP 128/79; PULSE 81; RESP 17; TEMP 98; O2SAT 94
[2016-09-02] MEDS: FREE WATER G-TUBE SCH (09:00)
[2016-09-02] MEDS: ALLOPURINOL 100 MG TAB PEG SCH (09:44)
[2016-09-02] MEDS: LANSOPRAZOLE SOLUTAB 30 MG TAB PEG SCH (09:44)
--- NOTE | 2016-09-02 11:41 | HHI.PR ---
Subjective Remarks Patient seen and examined today in follow-up for deconditioning. Patient denies any new complaints. No change in clinical status. Objective Vitals Vital Signs Date Time Temp Pulse Resp B/P Pulse Ox O2 Delivery O2 Flow Rate FiO2 09/02/16 08:00 98.0 81 17 128/79 94 09/01/16 20:00 98.1 73 22 129/80 97 I/O 09/01/16 09/01/16 09/01/16 09/02/16 09/02/16 09/02/16 07:00 15:00 23:00 07:00 15:00 23:00 Intake Total 1440 ml 2800 ml Output Total 175 ml 225 ml 250 ml 250 ml Balance -175 ml 1215 ml 2550 ml -250 ml Intake Oral 0 ml 0 ml Tube Feeding 840 ml 2400 ml Other 600 ml 400 ml Output Urine Total 175 ml 225 ml 250 ml 250 ml # Bowel Movements 2 2 2 2 Objective Remarks GENERAL: Well-developed, well-nourished, in no acute distress. Patient awake and alert HEENT: Head is normocephalic without any lesions or masses noted. Facial features are symmetric. Eyes: Extraocular muscles are intact. Conjunctivae were clear. Correlate base scaling noted on chin and nasolabial folds NECK: Trachea midline no deviation. CARDIAC: Regular rhythm, regular rate. S1/S2 are heard. No murmurs gallops or rubs. LUNGS: Clear to auscultation bilaterally. No wheeze, rhonchi or rales. No use of accessory muscles on inspiration or expiration. ABDOMEN: Soft, nontender. Nondistended. Bowel sounds heard in all 4 quadrants. No organomegaly or masses. Negative rebound, negative guarding, suprapubic catheter in place, PEG tube noted EXTREMITIES: No edema, pulses are equal bilaterally. No cyanosis or clubbing NEUROLOGY: Mood and affect appear appropriate. Cranial nerves II through XII grossly intact. Moving all extremities SKIN: Patient's back has skin breakdown on his back and sacral area. Procedures None Urinary Catheter: Yes Assessment to: Continue Soto insert reason: Obstruction/Retention Date of Insertion: Sep 01, 2016 Vascular Central Line Catheter: No A/P Assessment and Plan Weakness: Continue physical therapy Nursing staff to get patient up out of bed at least 3 times daily Dementia with inappropriate behavior, mood disorder improved Patient has been hospitalized for similar events in 2015 Consulted psychiatry for further evaluation, who indicated that this is a frontal lobe dementia Risperdal discontinued at family's request Continue Remeron Parkinson's disease: Patient has dementia and resting tremor. Chronic, stable. GI bleed with presenting of Upper GI bleed, patient with intermittent rectal bleeding: Resolved Hemoglobin continues to remain stable GI was following and reevaluated on 05/04/16 Presumed hemorrhoids, status post Anusol HC for 2 weeks Continue PPI. Protein calorie malnutrition: Improving Consulted dietitian who indicated that patient may be converted to bolus feeding Jevity 1.5, 6 cans per day. 1.5 cans that 0800 and 2000, 1 can at 1100, 1400, 1700 Prealbumin level 24 Ensure Enlive 3 times a day since pudding 3 times a day Hypotension with episodes of hypertension: Stable Blood pressure labile. Continue monitor blood pressure Continue Midodrine. Mild obstructive uropathy: Resolved. Appreciate urology recommendations. Suprapubic catheter in place, last changed 07/31/16. Change today Abdominal pelvis CT 03/06/16 shows resolution of right sided hydronephrosis. 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 Stage I decubitus ulcer, sacral skin tear: Continue wound care. Seborrhea dermatitis Continue hydrocortisone cream for 2 weeks Palliative care evaluation According to palliative care notes. Family wishes aggressive management, they are expecting him to improve, go to a rehabilitation facility and then improve enough to go home. They are deferring hospice. DVT prophylaxis: SCDs. Avoid chemical prophylaxis secondary to GI bleed. Records reviewed, no change in present treatment plan Discharge Planning Discharge planning per case management. Case management still trying to reach out to son to help with nursing facilities for acceptance. Jaguar Walker September 02, 2016 11:41
[2016-09-02 20:00] VITALS: BP 106/67; PULSE 87; RESP 18; TEMP 98.4; O2SAT 94
[2016-09-02] MEDS: MIRTAZAPINE 15 MG TAB PEG SCH (23:42)
[2016-09-03] MEDS: MIDODRINE 5 MG TAB PO SCH ×3 (06:23→16:58)
[2016-09-03 08:00] VITALS: BP 113/76; PULSE 70; RESP 20; TEMP 97.8; O2SAT 94
[2016-09-03] MEDS: ALLOPURINOL 100 MG TAB PEG SCH (08:17)
[2016-09-03] MEDS: LANSOPRAZOLE SOLUTAB 30 MG TAB PEG SCH (08:17)
[2016-09-03] MEDS: FREE WATER G-TUBE SCH (08:17)
--- NOTE | 2016-09-03 16:08 | HHI.PR ---
Subjective Remarks Patient evaluated this morning. Follow-up for dementia. No acute issues Objective Vitals Vital Signs Date Time Temp Pulse Resp B/P Pulse Ox O2 Delivery O2 Flow Rate FiO2 09/03/16 08:00 97.8 70 20 113/76 94 09/02/16 20:00 98.4 87 18 106/67 94 I/O 09/02/16 09/02/16 09/02/16 09/03/16 09/03/16 09/03/16 07:00 15:00 23:00 07:00 15:00 23:00 Output Total 250 ml 751 ml 225 ml 250 ml 250 ml Balance -250 ml -751 ml -225 ml -250 ml -250 ml Output Urine Total 250 ml 750 ml 225 ml 250 ml 250 ml Stool Total 1 ml # Bowel Movements 2 1 1 Objective Remarks GENERAL: Well developed male in no apparent distress. CARDIOVASCULAR: Regular rate and rhythm. RESPIRATORY: No accessory muscle use. CTAB. GASTROINTESTINAL: Abdomen is soft, non-tender, nondistended. NEURO: Awake and alert. Nods to questions. Procedures None Urinary Catheter: Yes Assessment to: Continue Soto insert reason: Obstruction/Retention Date of Insertion: Sep 01, 2016 Vascular Central Line Catheter: No A/P Problem List: (1) Decreased urine output ICD Code: R34 Status: Acute (2) Prerenal azotemia ICD Code: R79.89 Status: Acute (3) Hematuria ICD Code: R31.9 Status: Acute Assessment and Plan Hematuria: Resolved. Blood clots in his urine and urine is pink tinged. -Patient is not on anticoagulation. -Hemoglobin normal. -Creatinine is normal. -UA 4/5 with innumerable RBCs, but urine sample not grossly bloody. Urinary tract infection: Urine culture positive for Proteus mirabilis and GBS on 01/20. Patient completed course of antibiotics. Abdominal pelvis CT 03/06 shows decompressed bladder with circumferential bladder wall thickening and intraluminal air possibly indicating cystitis, but the patient had been afebrile with normal WBC count. Urine culture 05/31 with Serratia marcescens, Pseudomonas, and Enterococcus faecalis. Patient was started on antibiotics. Repeat urine culture on 06/04 only reveals contaminants. Urine culture 4/5 with Enterococcus faecalis and Pseudomonas Aeruginosa similar to previous culture on 05/31. Patient remains afebrile. CBC with normal white blood cell count. Hematuria has resolved. Patient is likely colonized or urine is contaminated. Will not treat for UTI unless patient becomes febrile or has elevated white blood cell. Mild obstructive uropathy: Resolved. Appreciate urology recommendations. Suprapubic catheter to be changed monthly; next change 08/28/16. Abdominal pelvis CT 03/06/16 shows resolution of right sided hydronephrosis. Upper GI bleeding: Resolved with recurrent rectal bleeding. Hemoglobin stable. GI reevaluated patient on 05/04. Presumed hemorrhoids, s/p Anusol HC for total of 2 weeks. Continue PPI. Protein calorie malnutrition: Improving Consulted dietitian who indicated that patient may be converted to bolus feeding Jevity 1.5 w/ bolus 1.5 cans(360ml) @ 0800 and 2000 and 1-can(240ml) @ 1100, 1400 and 1700. Free Water Flush 100ml before and after each bolus feeding. Ensure Enlive tid and chocolate pudding tid Prealbumin level 25. Patient desired to eat and speech therapy advised puree diet, thin liquids, but patient has not been eating. Family Physician suggested considering appetite stimulant. This was discussed with attending, but we do not believe this would be beneficial for patient and would add unnecessary risk to the patient. Will continue with tube feeds only. Dementia with inappropriate behavior, mood disorder improved Patient had inappropriate behavior which is resolved now. He has been very appropriate for a long time now. Patient has been hospitalized for similar events in 2015 Consulted psychiatry for further evaluation, who indicated that this is a frontal lobe dementia Risperdal 0.25 mg during the day, Risperdal 0.5 mg at night. Risperdal was discontinued per POA request. Continue [facility] Psychiatry was reconsulted and is ok with discontinuation of Risperdal. Seborrheic dermatitis: Flaky skin to the face and neck. Improved s/p one time dose of Ketoconazole 2% shampoo. Continue hydrocortisone cream for 2 weeks Chalazion: Persistent nodule R upper eyelid. There is no evidence of preseptal cellulitis. -Warm compresses were applied but it was greater than 2 weeks without significant improvement. -Ophthalmology was consulted and evaluated patient on 03/26. S/p warm compresses and Tobradex 4 times a day OD x 2 weeks. Patient was intermittently compliant with eyedrops. -No worsening. Follow-up outpatient. Hypotension: Blood pressure labile. Continue Midodrine. Patient on max dose. Increase free water flushes as needed. Pre-renal azotemia: BUN mildly elevated at 22. Continue free water flushes Stage I decubitus ulcer, sacral skin tear: Continue wound care. Frequent turning of patient. Candidal infection: buttocks affected with satellite lesions to the perineum. -S/p Nystatin and clotrimazole Weakness: Continue physical therapy Nursing staff to get patient up out of bed at least 3 times daily Palliative care evaluation According to palliative care notes family wishes aggressive management, they are expecting him to improve, go to a rehabilitation facility and then improve enough to go home. They are declining hospice. DVT prophylaxis: SCDs. Avoid chemical prophylaxis secondary to GI bleed. Discharge Planning 08/16: [place] [facility] considering for acceptance but son has to go to a conference there first. 08/26: continues to make calls to son for assistance to get patient placed as son needs to go to [place] [facility]. Madeline Ortez September 03, 2016 16:08
[2016-09-03 20:00] VITALS: BP 112/75; PULSE 71; RESP 19; TEMP 97.7; O2SAT 96
[2016-09-03] MEDS: MIRTAZAPINE 15 MG TAB PEG SCH (20:31)
[2016-09-04] MEDS: MIDODRINE 5 MG TAB PO SCH ×3 (06:01→17:28)
[2016-09-04 08:00] VITALS: BP 119/77; PULSE 67; RESP 19; TEMP 95.9; O2SAT 96
--- NOTE | 2016-09-04 08:52 | HHI.PR ---
Subjective Remarks Follow-up for dementia. No acute complaints. Objective Vitals Vital Signs Date Time Temp Pulse Resp B/P Pulse Ox O2 Delivery O2 Flow Rate FiO2 09/04/16 08:00 95.9 67 19 119/77 96 09/03/16 20:00 97.7 71 19 112/75 96 I/O 09/03/16 09/03/16 09/03/16 09/04/16 09/04/16 09/04/16 07:00 15:00 23:00 07:00 15:00 23:00 Intake Total 1640 ml 100 ml Output Total 250 ml 250 ml 325 ml 375 ml Balance -250 ml -250 ml 1315 ml -275 ml Tube Feeding 1440 ml Tube Irrigant 100 ml 100 ml Other 100 ml Output Urine Total 250 ml 250 ml 325 ml 375 ml # Bowel Movements 1 1 Objective Remarks GENERAL: Well developed male in no apparent distress. CARDIOVASCULAR: Regular rate and rhythm. RESPIRATORY: No accessory muscle use. CTAB. GASTROINTESTINAL: Abdomen is soft, non-tender, nondistended. NEURO: Awake and alert. Nods to questions. Procedures None Urinary Catheter: Yes Assessment to: Continue Soto insert reason: Obstruction/Retention Date of Insertion: Sep 01, 2016 Vascular Central Line Catheter: No A/P Assessment and Plan Hematuria: Resolved. Blood clots in his urine and urine is pink tinged. -Patient is not on anticoagulation. -Hemoglobin normal. -Creatinine is normal. -UA 4/5 with innumerable RBCs, but urine sample not grossly bloody. Urinary tract infection: Urine culture positive for Proteus mirabilis and GBS on 01/20. Patient completed course of antibiotics. Abdominal pelvis CT 03/06 shows decompressed bladder with circumferential bladder wall thickening and intraluminal air possibly indicating cystitis, but the patient had been afebrile with normal WBC count. Urine culture 05/31 with Serratia marcescens, Pseudomonas, and Enterococcus faecalis. Patient was started on antibiotics. Repeat urine culture on 06/04 only reveals contaminants. Urine culture 4/5 with Enterococcus faecalis and Pseudomonas Aeruginosa similar to previous culture on 05/31. Patient remains afebrile. CBC with normal white blood cell count. Hematuria has resolved. Patient is likely colonized or urine is contaminated. Will not treat for UTI unless patient becomes febrile or has elevated white blood cell. Mild obstructive uropathy: Resolved. Appreciate urology recommendations. Suprapubic catheter to be changed monthly; last changed 09/01/16. Abdominal pelvis CT 03/06/16 shows resolution of right sided hydronephrosis. Upper GI bleeding: Resolved with recurrent rectal bleeding. Hemoglobin stable. GI reevaluated patient on 05/04. Presumed hemorrhoids, s/p Anusol HC for total of 2 weeks. Continue PPI. Protein calorie malnutrition: Improving Consulted dietitian who indicated that patient may be converted to bolus feeding Jevity 1.5 w/ bolus 1.5 cans(360ml) @ 0800 and 2000 and 1-can(240ml) @ 1100, 1400 and 1700. Free Water Flush 100ml before and after each bolus feeding. Ensure Enlive tid and chocolate pudding tid Prealbumin level 25. Patient desired to eat and speech therapy advised puree diet, thin liquids, but patient has not been eating. [employer] suggested considering appetite stimulant. This was discussed with attending, but we do not believe this would be beneficial for patient and would add unnecessary risk to the patient. Will continue with tube feeds only. Dementia with inappropriate behavior, mood disorder improved Patient had inappropriate behavior which is resolved now. He has been very appropriate for a long time now. Patient has been hospitalized for similar events in 2015 Consulted psychiatry for further evaluation, who indicated that this is a frontal lobe dementia Risperdal 0.25 mg during the day, Risperdal 0.5 mg at night. Risperdal was discontinued per POA request. Continue Remeron Psychiatry was reconsulted and is ok with discontinuation of Risperdal. Seborrheic dermatitis: Flaky skin to the face and neck. Improved s/p one time dose of Ketoconazole 2% shampoo. S/p hydrocortisone cream for 2 weeks Chalazion: Persistent nodule R upper eyelid. There is no evidence of preseptal cellulitis. -Warm compresses were applied but it was greater than 2 weeks without significant improvement. -Ophthalmology was consulted and evaluated patient on 03/26. S/p warm compresses and Tobradex 4 times a day OD x 2 weeks. Patient was intermittently compliant with eyedrops. -No worsening. Follow-up outpatient. Hypotension: Blood pressure labile. Continue Midodrine. Patient on max dose. Increase free water flushes as needed. Pre-renal azotemia: BUN mildly elevated at 22. Continue free water flushes Stage I decubitus ulcer, sacral skin tear: Continue wound care. Frequent turning of patient. Candidal infection: buttocks affected with satellite lesions to the perineum. -S/p Nystatin and clotrimazole Weakness: Continue physical therapy Nursing staff to get patient up out of bed at least 3 times daily Palliative care evaluation According to palliative care notes family wishes aggressive management, they are expecting him to improve, go to a rehabilitation facility and then improve enough to go home. They are declining hospice. DVT prophylaxis: SCDs. Avoid chemical prophylaxis secondary to GI bleed. Discharge Planning 08/16: [place] [facility] considering for acceptance but son has to go to a conference there first. 08/26: continues to make calls to son for assistance to get patient placed as son needs to go to [place] [facility]. Madeline Ortez September 04, 2016 08:52 Madeline Ortez September 04, 2016 08:52
[2016-09-04] MEDS: FREE WATER G-TUBE SCH (09:00)
[2016-09-04] MEDS: LANSOPRAZOLE SOLUTAB 30 MG TAB PEG SCH (09:00)
[2016-09-04] MEDS: ALLOPURINOL 100 MG TAB PEG SCH (09:00)
[2016-09-04 20:00] VITALS: BP 107/72; PULSE 67; RESP 20; TEMP 97.4; O2SAT 98
[2016-09-04] MEDS: MIRTAZAPINE 15 MG TAB PEG SCH (20:04)
[2016-09-05] MEDS: MIDODRINE 5 MG TAB PO SCH ×3 (06:20→17:00)
[2016-09-05 08:00] VITALS: BP 107/72; PULSE 67; RESP 20; TEMP 97.4; O2SAT 98
--- NOTE | 2016-09-05 08:24 | HHI.PR ---
Subjective Remarks Follow-up for dementia. No acute complaints. Objective Vitals Vital Signs Date Time Temp Pulse Resp B/P Pulse Ox O2 Delivery O2 Flow Rate FiO2 09/04/16 20:00 97.4 67 20 107/72 98 I/O 09/04/16 09/04/16 09/04/16 09/05/16 09/05/16 09/05/16 07:00 15:00 23:00 07:00 15:00 23:00 Intake Total 100 ml 1640 ml Output Total 375 ml 1085 ml 175 ml Balance -275 ml 555 ml -175 ml Tube Feeding 1440 ml Tube Irrigant 100 ml 100 ml Other 100 ml Output Urine Total 375 ml 1085 ml 175 ml # Bowel Movements 1 1 2 3 Objective Remarks GENERAL: Well developed male in no apparent distress. CARDIOVASCULAR: Regular rate and rhythm. RESPIRATORY: No accessory muscle use. CTAB. GASTROINTESTINAL: Abdomen is soft, non-tender, nondistended. NEURO: Awake and alert. Nods to questions. Procedures None Urinary Catheter: Yes Assessment to: Continue Soto insert reason: Obstruction/Retention Date of Insertion: Sep 01, 2016 Vascular Central Line Catheter: No A/P Problem List: (1) Decreased urine output ICD Code: R34 Status: Acute (2) Prerenal azotemia ICD Code: R79.89 Status: Acute (3) Hematuria ICD Code: R31.9 Status: Acute Assessment and Plan Hematuria: Resolved. Blood clots in his urine and urine is pink tinged. -Patient is not on anticoagulation. -Hemoglobin normal. -Creatinine is normal. -UA 4/5 with innumerable RBCs, but urine sample not grossly bloody. Urinary tract infection: Urine culture positive for Proteus mirabilis and GBS on 01/20. Patient completed course of antibiotics. Abdominal pelvis CT 03/06 shows decompressed bladder with circumferential bladder wall thickening and intraluminal air possibly indicating cystitis, but the patient had been afebrile with normal WBC count. Urine culture 05/31 with Serratia marcescens, Pseudomonas, and Enterococcus faecalis. Patient was started on antibiotics. Repeat urine culture on 06/04 only reveals contaminants. Urine culture 4/5 with Enterococcus faecalis and Pseudomonas Aeruginosa similar to previous culture on 05/31. Patient remains afebrile. CBC with normal white blood cell count. Hematuria has resolved. Patient is likely colonized or urine is contaminated. Will not treat for UTI unless patient becomes febrile or has elevated white blood cell. Mild obstructive uropathy: Resolved. Appreciate urology recommendations. Suprapubic catheter to be changed monthly; last changed 09/01/16. Abdominal pelvis CT 03/06/16 shows resolution of right sided hydronephrosis. Upper GI bleeding: Resolved with recurrent rectal bleeding. Hemoglobin stable. GI reevaluated patient on 05/04. Presumed hemorrhoids, s/p Anusol HC for total of 2 weeks. Continue PPI. Protein calorie malnutrition: Improving Consulted dietitian who indicated that patient may be converted to bolus feeding Jevity 1.5 w/ bolus 1.5 cans(360ml) @ 0800 and 2000 and 1-can(240ml) @ 1100, 1400 and 1700. Free Water Flush 100ml before and after each bolus feeding. Ensure Enlive tid and chocolate pudding tid Prealbumin level 25. Patient desired to eat and speech therapy advised puree diet, thin liquids, but patient has not been eating. Histologic Aide suggested considering appetite stimulant. This was discussed with attending, but we do not believe this would be beneficial for patient and would add unnecessary risk to the patient. Will continue with tube feeds only. Dementia with inappropriate behavior, mood disorder improved Patient had inappropriate behavior which is resolved now. He has been very appropriate for a long time now. Patient has been hospitalized for similar events in 2015 Consulted psychiatry for further evaluation, who indicated that this is a frontal lobe dementia Risperdal 0.25 mg during the day, Risperdal 0.5 mg at night. Risperdal was discontinued per POA request. Continue [facility] Psychiatry was reconsulted and is ok with discontinuation of Risperdal. Seborrheic dermatitis: Flaky skin to the face and neck. Improved s/p one time dose of Ketoconazole 2% shampoo. S/p hydrocortisone cream for 2 weeks Chalazion: Persistent nodule R upper eyelid. There is no evidence of preseptal cellulitis. -Warm compresses were applied but it was greater than 2 weeks without significant improvement. -Ophthalmology was consulted and evaluated patient on 03/26. S/p warm compresses and Tobradex 4 times a day OD x 2 weeks. Patient was intermittently compliant with eyedrops. -No worsening. Follow-up outpatient. Hypotension: Blood pressure labile. Continue Midodrine. Patient on max dose. Increase free water flushes as needed. Pre-renal azotemia: BUN mildly elevated at 22. Continue free water flushes Stage I decubitus ulcer, sacral skin tear: Continue wound care. Frequent turning of patient. Candidal infection: buttocks affected with satellite lesions to the perineum. -S/p Nystatin and clotrimazole Weakness: Continue physical therapy Nursing staff to get patient up out of bed at least 3 times daily Palliative care evaluation According to palliative care notes family wishes aggressive management, they are expecting him to improve, go to a rehabilitation facility and then improve enough to go home. They are declining hospice. DVT prophylaxis: SCDs. Avoid chemical prophylaxis secondary to GI bleed. Discharge Planning 08/16: [place] [facility] considering for acceptance but son has to go to a conference there first. 08/26: continues to make calls to son for assistance to get patient placed as son needs to go to [place] [facility]. Madeline Ortez September 05, 2016 08:24
[2016-09-05] MEDS: FREE WATER G-TUBE SCH (09:00)
[2016-09-05] MEDS: ALLOPURINOL 100 MG TAB PEG SCH (09:00)
[2016-09-05] MEDS: LANSOPRAZOLE SOLUTAB 30 MG TAB PEG SCH (10:51)
[2016-09-05 20:00] VITALS: BP 94/67; PULSE 71; RESP 20; TEMP 96.6; O2SAT 95
[2016-09-05] MEDS: MIRTAZAPINE 15 MG TAB PEG SCH (21:43)
[2016-09-06] MEDS: MIDODRINE 5 MG TAB PO SCH ×3 (06:17→16:43)
[2016-09-06 08:22] VITALS: BP 92/62; PULSE 61; RESP 18; TEMP 98.1; O2SAT 97
[2016-09-06] MEDS: LANSOPRAZOLE SOLUTAB 30 MG TAB PEG SCH (08:29)
[2016-09-06] MEDS: ALLOPURINOL 100 MG TAB PEG SCH (08:29)
[2016-09-06] MEDS: FREE WATER G-TUBE SCH (08:29)
--- NOTE | 2016-09-06 09:31 | HHI.PR ---
Subjective Remarks Follow-up for dementia. No acute complaints. Objective Vitals Vital Signs Date Time Temp Pulse Resp B/P Pulse Ox O2 Delivery O2 Flow Rate FiO2 09/06/16 08:22 98.1 61 18 92/62 97 09/05/16 20:00 96.6 71 20 94/67 95 I/O 09/05/16 09/05/16 09/05/16 09/06/16 09/06/16 09/06/16 07:00 15:00 23:00 07:00 15:00 23:00 Intake Total 0 ml 0 ml Output Total 175 ml 250 ml 350 ml Balance -175 ml -250 ml -350 ml Intake Oral 0 ml 0 ml Output Urine Total 175 ml 250 ml 350 ml # Bowel Movements 3 0 0 Objective Remarks GENERAL: Well developed male in no apparent distress. CARDIOVASCULAR: Regular rate and rhythm. RESPIRATORY: No accessory muscle use. CTAB. GASTROINTESTINAL: Normoactive bowel sounds on the right. Abdomen is soft, non- tender, nondistended. NEURO: Sleeping but arouses to light touch on the shoulder. Nods to questions. Procedures None Urinary Catheter: Yes Assessment to: Continue Soto insert reason: Obstruction/Retention Date of Insertion: Sep 01, 2016 Vascular Central Line Catheter: No A/P Problem List: (1) Decreased urine output ICD Code: R34 Status: Acute (2) Prerenal azotemia ICD Code: R79.89 Status: Acute (3) Hematuria ICD Code: R31.9 Status: Acute Assessment and Plan Hematuria: Resolved. Blood clots in his urine and urine is pink tinged. -Patient is not on anticoagulation. -Hemoglobin normal. -Creatinine is normal. -UA 4/5 with innumerable RBCs, but urine sample not grossly bloody. Urinary tract infection: Urine culture positive for Proteus mirabilis and GBS on 01/20. Patient completed course of antibiotics. Abdominal pelvis CT 03/06 shows decompressed bladder with circumferential bladder wall thickening and intraluminal air possibly indicating cystitis, but the patient had been afebrile with normal WBC count. Urine culture 05/31 with Serratia marcescens, Pseudomonas, and Enterococcus faecalis. Patient was started on antibiotics. Repeat urine culture on 06/04 only reveals contaminants. Urine culture 4/5 with Enterococcus faecalis and Pseudomonas Aeruginosa similar to previous culture on 05/31. Patient remains afebrile. CBC with normal white blood cell count. Hematuria has resolved. Patient is likely colonized or urine is contaminated. Will not treat for UTI unless patient becomes febrile or has elevated white blood cell. Mild obstructive uropathy: Resolved. Appreciate urology recommendations. Suprapubic catheter to be changed monthly; last changed 09/01/16. Abdominal pelvis CT 03/06/16 shows resolution of right sided hydronephrosis. Upper GI bleeding: Resolved with recurrent rectal bleeding. Hemoglobin stable. GI reevaluated patient on 05/04. Presumed hemorrhoids, s/p Anusol HC for total of 2 weeks. Continue PPI. Protein calorie malnutrition: Improving Consulted dietitian who indicated that patient may be converted to bolus feeding Jevity 1.5 w/ bolus 1.5 cans(360ml) @ 0800 and 2000 and 1-can(240ml) @ 1100, 1400 and 1700. Free Water Flush 100ml before and after each bolus feeding. Ensure Enlive tid and chocolate pudding tid Prealbumin level 25. Patient desired to eat and speech therapy advised puree diet, thin liquids, but patient has not been eating. [employer] suggested considering appetite stimulant. This was discussed with attending, but we do not believe this would be beneficial for patient and would add unnecessary risk to the patient. Will continue with tube feeds only. Dementia with inappropriate behavior, mood disorder improved Patient had inappropriate behavior which is resolved now. He has been very appropriate for a long time now. Patient has been hospitalized for similar events in 2015 Consulted psychiatry for further evaluation, who indicated that this is a frontal lobe dementia Risperdal 0.25 mg during the day, Risperdal 0.5 mg at night. Risperdal was discontinued per POA request. Continue Remeron Psychiatry was reconsulted and is ok with discontinuation of Risperdal. Seborrheic dermatitis: Flaky skin to the face and neck. Improved s/p one time dose of Ketoconazole 2% shampoo. S/p hydrocortisone cream for 2 weeks Chalazion: Persistent nodule R upper eyelid. There is no evidence of preseptal cellulitis. -Warm compresses were applied but it was greater than 2 weeks without significant improvement. -Ophthalmology was consulted and evaluated patient on 03/26. S/p warm compresses and Tobradex 4 times a day OD x 2 weeks. Patient was intermittently compliant with eyedrops. -No worsening. Follow-up outpatient. Hypotension: Blood pressure labile. Continue Midodrine. Patient on max dose. Increase free water flushes as needed. Pre-renal azotemia: BUN mildly elevated at 22. Continue free water flushes Stage I decubitus ulcer, sacral skin tear: Continue wound care. Frequent turning of patient. Candidal infection: buttocks affected with satellite lesions to the perineum. -S/p Nystatin and clotrimazole Weakness: Continue physical therapy Nursing staff to get patient up out of bed at least 3 times daily Palliative care evaluation According to palliative care notes family wishes aggressive management, they are expecting him to improve, go to a rehabilitation facility and then improve enough to go home. They are declining hospice. DVT prophylaxis: SCDs. Avoid chemical prophylaxis secondary to GI bleed. Discharge Planning 08/16: [place] [facility] considering for acceptance but son has to go to a conference there first. 08/26: continues to make calls to son for assistance to get patient placed as son needs to go to [place] [facility]. Madeline Ortez September 06, 2016 09:31
[2016-09-06 20:00] VITALS: BP 105/69; PULSE 68; RESP 20; TEMP 98.1; O2SAT 99
[2016-09-06] MEDS: MIRTAZAPINE 15 MG TAB PEG SCH (21:41)
[2016-09-07] MEDS: MIDODRINE 5 MG TAB PO SCH ×3 (06:05→17:00)
[2016-09-07 08:00] VITALS: BP 100/65; PULSE 66; RESP 17; TEMP 97.9; O2SAT 97
[2016-09-07] MEDS: FREE WATER G-TUBE SCH (08:27)
[2016-09-07] MEDS: LANSOPRAZOLE SOLUTAB 30 MG TAB PEG SCH (08:27)
[2016-09-07] MEDS: ALLOPURINOL 100 MG TAB PEG SCH (08:27)
--- NOTE | 2016-09-07 10:09 | HHI.PR ---
Subjective Remarks Follow-up for dementia. No acute complaints. Objective Vitals Vital Signs Date Time Temp Pulse Resp B/P Pulse Ox O2 Delivery O2 Flow Rate FiO2 09/07/16 08:00 97.9 66 17 100/65 97 09/06/16 20:00 98.1 68 20 105/69 99 I/O 09/06/16 09/06/16 09/06/16 09/07/16 09/07/16 09/07/16 07:00 15:00 23:00 07:00 15:00 23:00 Intake Total 0 ml 0 ml 0 ml Output Total 350 ml 950 ml 500 ml Balance -350 ml -950 ml -500 ml Intake Oral 0 ml 0 ml 0 ml Output Urine Total 350 ml 950 ml 500 ml # Bowel Movements 0 1 1 Objective Remarks GENERAL: Well developed male in no apparent distress. CARDIOVASCULAR: Regular rate and rhythm. RESPIRATORY: No accessory muscle use. CTAB. GASTROINTESTINAL: Abdomen is soft, non-tender, nondistended. NEURO: Awaken and alert. Nods to questions, and mouths words, but does not speak aloud. Procedures None Urinary Catheter: Yes Assessment to: Continue Soto insert reason: Obstruction/Retention Date of Insertion: Sep 01, 2016 Vascular Central Line Catheter: No A/P Problem List: (1) Decreased urine output ICD Code: R34 Status: Acute (2) Prerenal azotemia ICD Code: R79.89 Status: Acute (3) Hematuria ICD Code: R31.9 Status: Acute Assessment and Plan Hematuria: Resolved. Blood clots in his urine and urine is pink tinged. -Patient is not on anticoagulation. -Hemoglobin normal. -Creatinine is normal. -UA 4/5 with innumerable RBCs, but urine sample not grossly bloody. Urinary tract infection: Urine culture positive for Proteus mirabilis and GBS on 01/20. Patient completed course of antibiotics. Abdominal pelvis CT 03/06 shows decompressed bladder with circumferential bladder wall thickening and intraluminal air possibly indicating cystitis, but the patient had been afebrile with normal WBC count. Urine culture 05/31 with Serratia marcescens, Pseudomonas, and Enterococcus faecalis. Patient was started on antibiotics. Repeat urine culture on 06/04 only reveals contaminants. Urine culture 4/5 with Enterococcus faecalis and Pseudomonas Aeruginosa similar to previous culture on 05/31. Patient remains afebrile. CBC with normal white blood cell count. Hematuria has resolved. Patient is likely colonized or urine is contaminated. Will not treat for UTI unless patient becomes febrile or has elevated white blood cell. Mild obstructive uropathy: Resolved. Appreciate urology recommendations. Suprapubic catheter to be changed monthly; last changed 09/01/16. Abdominal pelvis CT 03/06/16 shows resolution of right sided hydronephrosis. Upper GI bleeding: Resolved with recurrent rectal bleeding. Hemoglobin stable. GI reevaluated patient on 05/04. Presumed hemorrhoids, s/p Anusol HC for total of 2 weeks. Continue PPI. Protein calorie malnutrition: Improving Consulted dietitian who indicated that patient may be converted to bolus feeding Jevity 1.5 w/ bolus 1.5 cans(360ml) @ 0800 and 2000 and 1-can(240ml) @ 1100, 1400 and 1700. Free Water Flush 100ml before and after each bolus feeding. Ensure Enlive tid and chocolate pudding tid Prealbumin level 25. Patient desired to eat and speech therapy advised puree diet, thin liquids, but patient has not been eating. Collector suggested considering appetite stimulant. This was discussed with attending, but we do not believe this would be beneficial for patient and would add unnecessary risk to the patient. Will continue with tube feeds only. Dementia with inappropriate behavior, mood disorder improved Patient had inappropriate behavior which is resolved now. He has been very appropriate for a long time now. Patient has been hospitalized for similar events in 2015 Consulted psychiatry for further evaluation, who indicated that this is a frontal lobe dementia Risperdal 0.25 mg during the day, Risperdal 0.5 mg at night. Risperdal was discontinued per POA request. Continue Remeron Psychiatry was reconsulted and is ok with discontinuation of Risperdal. Seborrheic dermatitis: Flaky skin to the face and neck. Improved s/p one time dose of Ketoconazole 2% shampoo. S/p hydrocortisone cream for 2 weeks Chalazion: Persistent nodule R upper eyelid. There is no evidence of preseptal cellulitis. -Warm compresses were applied but it was greater than 2 weeks without significant improvement. -Ophthalmology was consulted and evaluated patient on 03/26. S/p warm compresses and Tobradex 4 times a day OD x 2 weeks. Patient was intermittently compliant with eyedrops. -No worsening. Follow-up outpatient. Hypotension: Blood pressure labile. Continue Midodrine. Patient on max dose. Increase free water flushes as needed. Pre-renal azotemia: BUN mildly elevated at 22. Continue free water flushes Stage I decubitus ulcer, sacral skin tear: Continue wound care. Frequent turning of patient. Candidal infection: buttocks affected with satellite lesions to the perineum. -S/p Nystatin and clotrimazole Weakness: Continue physical therapy Nursing staff to get patient up out of bed at least 3 times daily Palliative care evaluation According to palliative care notes family wishes aggressive management, they are expecting him to improve, go to a rehabilitation facility and then improve enough to go home. They are declining hospice. DVT prophylaxis: SCDs. Avoid chemical prophylaxis secondary to GI bleed. Discharge Planning 08/16: [place] [facility] considering for acceptance but son has to go to a conference there first. 08/26: continues to make calls to son for assistance to get patient placed as son needs to go to [place] [facility]. Madeline Ortez September 07, 2016 10:09
[2016-09-07 20:00] VITALS: BP 103/65; PULSE 77; RESP 19; TEMP 97.3; O2SAT 97
[2016-09-07] MEDS: MIRTAZAPINE 15 MG TAB PEG SCH (20:05)
[2016-09-08] MEDS: MIDODRINE 5 MG TAB PO SCH ×3 (06:13→17:32)
[2016-09-08 08:00] VITALS: BP 113/72; PULSE 74; RESP 18; TEMP 97.2; O2SAT 94
[2016-09-08] MEDS: ALLOPURINOL 100 MG TAB PEG SCH (08:25)
[2016-09-08] MEDS: FREE WATER G-TUBE SCH (08:25)
[2016-09-08] MEDS: LANSOPRAZOLE SOLUTAB 30 MG TAB PEG SCH (08:25)
--- NOTE | 2016-09-08 10:19 | HHI.PR ---
Subjective Remarks Follow-up for dementia. Patient has no acute complaints. Objective Vitals Vital Signs Date Time Temp Pulse Resp B/P Pulse Ox O2 Delivery O2 Flow Rate FiO2 09/08/16 08:00 97.2 74 18 113/72 94 09/07/16 20:00 97.3 77 19 103/65 97 I/O 09/07/16 09/07/16 09/07/16 09/08/16 09/08/16 09/08/16 07:00 15:00 23:00 07:00 15:00 23:00 Intake Total 0 ml 1540 ml Output Total 500 ml 1350 ml 450 ml Balance -500 ml 190 ml -450 ml Intake Oral 0 ml Tube Feeding 1440 ml Tube Irrigant 100 ml Output Urine Total 500 ml 1350 ml 450 ml # Bowel Movements 1 1 Objective Remarks GENERAL: Well developed male in no apparent distress. CARDIOVASCULAR: Regular rate and rhythm. RESPIRATORY: No accessory muscle use. CTAB. GASTROINTESTINAL: Abdomen is soft, non-tender, nondistended. NEURO: Awaken and alert. Nods to questions, but does not speak aloud. PSYCHIATRIC: Normal mood and affect. Procedures None Urinary Catheter: Yes Assessment to: Continue Soto insert reason: Obstruction/Retention Date of Insertion: Sep 01, 2016 Vascular Central Line Catheter: No A/P Problem List: (1) Decreased urine output ICD Code: R34 Status: Acute (2) Prerenal azotemia ICD Code: R79.89 Status: Acute (3) Hematuria ICD Code: R31.9 Status: Acute Assessment and Plan Hematuria: Resolved. Blood clots in his urine and urine is pink tinged. -Patient is not on anticoagulation. -Hemoglobin normal. -Creatinine is normal. -UA 4/5 with innumerable RBCs, but urine sample not grossly bloody. Urinary tract infection: Urine culture positive for Proteus mirabilis and GBS on 01/20. Patient completed course of antibiotics. Abdominal pelvis CT 03/06 shows decompressed bladder with circumferential bladder wall thickening and intraluminal air possibly indicating cystitis, but the patient had been afebrile with normal WBC count. Urine culture 05/31 with Serratia marcescens, Pseudomonas, and Enterococcus faecalis. Patient was started on antibiotics. Repeat urine culture on 06/04 only reveals contaminants. Urine culture 4/5 with Enterococcus faecalis and Pseudomonas Aeruginosa similar to previous culture on 05/31. Patient remains afebrile. CBC with normal white blood cell count. Hematuria has resolved. Patient is likely colonized or urine is contaminated. Will not treat for UTI unless patient becomes febrile or has elevated white blood cell. Mild obstructive uropathy: Resolved. Appreciate urology recommendations. Suprapubic catheter to be changed monthly; last changed 09/01/16. Abdominal pelvis CT 03/06/16 shows resolution of right sided hydronephrosis. Upper GI bleeding: Resolved with recurrent rectal bleeding. Hemoglobin stable. GI reevaluated patient on 05/04. Presumed hemorrhoids, s/p Anusol HC for total of 2 weeks. Continue PPI. Protein calorie malnutrition: Improving Consulted dietitian who indicated that patient may be converted to bolus feeding Jevity 1.5 w/ bolus 1.5 cans(360ml) @ 0800 and 2000 and 1-can(240ml) @ 1100, 1400 and 1700. Free Water Flush 100ml before and after each bolus feeding. Ensure Enlive tid and chocolate pudding tid Prealbumin level 25. Patient desired to eat and speech therapy advised puree diet, thin liquids, but patient has not been eating. Change Management Lead suggested considering appetite stimulant. This was discussed with attending, but we do not believe this would be beneficial for patient and would add unnecessary risk to the patient. Will continue with tube feeds only. Dementia with inappropriate behavior, mood disorder improved Patient had inappropriate behavior which is resolved now. He has been very appropriate for a long time now. Patient has been hospitalized for similar events in 2015 Consulted psychiatry for further evaluation, who indicated that this is a frontal lobe dementia Risperdal 0.25 mg during the day, Risperdal 0.5 mg at night. Risperdal was discontinued per POA request. Continue Remeron Psychiatry was reconsulted and is ok with discontinuation of Risperdal. Seborrheic dermatitis: Flaky skin to the face and neck. Improved s/p one time dose of Ketoconazole 2% shampoo. S/p hydrocortisone cream for 2 weeks Chalazion: Persistent nodule R upper eyelid. There is no evidence of preseptal cellulitis. -Warm compresses were applied but it was greater than 2 weeks without significant improvement. -Ophthalmology was consulted and evaluated patient on 03/26. S/p warm compresses and Tobradex 4 times a day OD x 2 weeks. Patient was intermittently compliant with eyedrops. -No worsening. Follow-up outpatient. Hypotension: Blood pressure labile. Continue Midodrine. Patient on max dose. Increase free water flushes as needed. Pre-renal azotemia: BUN mildly elevated at 22. Continue free water flushes Stage I decubitus ulcer, sacral skin tear: Continue wound care. Frequent turning of patient. Candidal infection: buttocks affected with satellite lesions to the perineum. -S/p Nystatin and clotrimazole Weakness: Continue physical therapy Nursing staff to get patient up out of bed at least 3 times daily Palliative care evaluation According to palliative care notes family wishes aggressive management, they are expecting him to improve, go to a rehabilitation facility and then improve enough to go home. They are declining hospice. DVT prophylaxis: SCDs. Avoid chemical prophylaxis secondary to GI bleed. Discharge Planning 08/16: [place] [facility] considering for acceptance but son has to go to a conference there first. 08/26: continues to make calls to son for assistance to get patient placed as son needs to go to [place] [facility]. Madeline Ortez September 08, 2016 10:19
[2016-09-08] MEDS: MIRTAZAPINE 15 MG TAB PEG SCH (20:51)
[2016-09-08 22:58] VITALS: BP 110/71; PULSE 75; RESP 16; TEMP 97.6; O2SAT 95
[2016-09-09 08:00] VITALS: BP 128/88; PULSE 89; RESP 17; TEMP 97.6; O2SAT 96
[2016-09-09] MEDS: MIDODRINE 5 MG TAB PO SCH ×3 (08:02→16:38)
[2016-09-09] MEDS: ALLOPURINOL 100 MG TAB PEG SCH (08:02)
[2016-09-09] MEDS: FREE WATER G-TUBE SCH (08:02)
[2016-09-09] MEDS: LANSOPRAZOLE SOLUTAB 30 MG TAB PEG SCH (08:02)
--- NOTE | 2016-09-09 10:27 | HHI.PR ---
Subjective Remarks Follow-up for dementia. No acute complaints. Objective Vitals Vital Signs Date Time Temp Pulse Resp B/P Pulse Ox O2 Delivery O2 Flow Rate FiO2 09/09/16 08:00 97.6 89 17 128/88 96 09/08/16 22:58 97.6 75 16 110/71 95 I/O 09/08/16 09/08/16 09/08/16 09/09/16 09/09/16 09/09/16 06:59 14:59 22:59 06:59 14:59 22:59 Intake Total 1540 ml Output Total 450 ml 650 ml 275 ml Balance -450 ml 890 ml -275 ml Tube Feeding 1440 ml Other 100 ml Output Urine Total 450 ml 650 ml 275 ml # Bowel Movements 0 Objective Remarks GENERAL: Well developed male in no apparent distress. CARDIOVASCULAR: Regular rate and rhythm. RESPIRATORY: No accessory muscle use. CTAB. GASTROINTESTINAL: Normoactive bowel sounds. Abdomen is soft, non-tender, nondistended. NEURO: Awaken and alert. Nods to questions, but does not speak aloud. PSYCHIATRIC: Normal mood and affect. Procedures None Urinary Catheter: Yes Assessment to: Continue Soto insert reason: Obstruction/Retention Date of Insertion: Sep 01, 2016 Vascular Central Line Catheter: No A/P Assessment and Plan Hematuria: Resolved. Blood clots in his urine and urine is pink tinged. -Patient is not on anticoagulation. -Hemoglobin normal. -Creatinine is normal. -UA 4/5 with innumerable RBCs, but urine sample not grossly bloody. Urinary tract infection: Urine culture positive for Proteus mirabilis and GBS on 01/20. Patient completed course of antibiotics. Abdominal pelvis CT 03/06 shows decompressed bladder with circumferential bladder wall thickening and intraluminal air possibly indicating cystitis, but the patient had been afebrile with normal WBC count. Urine culture 05/31 with Serratia marcescens, Pseudomonas, and Enterococcus faecalis. Patient was started on antibiotics. Repeat urine culture on 06/04 only reveals contaminants. Urine culture 4/5 with Enterococcus faecalis and Pseudomonas Aeruginosa similar to previous culture on 05/31. Patient remains afebrile. CBC with normal white blood cell count. Hematuria has resolved. Patient is likely colonized or urine is contaminated. Will not treat for UTI unless patient becomes febrile or has elevated white blood cell. Mild obstructive uropathy: Resolved. Appreciate urology recommendations. Suprapubic catheter to be changed monthly; last changed 09/01/16. Abdominal pelvis CT 03/06/16 shows resolution of right sided hydronephrosis. Upper GI bleeding: Resolved with recurrent rectal bleeding. Hemoglobin stable. GI reevaluated patient on 05/04. Presumed hemorrhoids, s/p Anusol HC for total of 2 weeks. Continue PPI. Protein calorie malnutrition: Improving Consulted dietitian who indicated that patient may be converted to bolus feeding Jevity 1.5 w/ bolus 1.5 cans(360ml) @ 0800 and 2000 and 1-can(240ml) @ 1100, 1400 and 1700. Free Water Flush 100ml before and after each bolus feeding. Ensure Enlive tid and chocolate pudding tid Prealbumin level 25. Patient desired to eat and speech therapy advised puree diet, thin liquids, but patient has not been eating. Doweling Machine Operator suggested considering appetite stimulant. This was discussed with attending, but we do not believe this would be beneficial for patient and would add unnecessary risk to the patient. Will continue with tube feeds only. Dementia with inappropriate behavior, mood disorder improved Patient had inappropriate behavior which is resolved now. He has been very appropriate for a long time now. Patient has been hospitalized for similar events in 2015 Consulted psychiatry for further evaluation, who indicated that this is a frontal lobe dementia Risperdal 0.25 mg during the day, Risperdal 0.5 mg at night. Risperdal was discontinued per POA request. Continue Remeron Psychiatry was reconsulted and is ok with discontinuation of Risperdal. Seborrheic dermatitis: Flaky skin to the face and neck. Improved s/p one time dose of Ketoconazole 2% shampoo. S/p hydrocortisone cream for 2 weeks Chalazion: Persistent nodule R upper eyelid. There is no evidence of preseptal cellulitis. -Warm compresses were applied but it was greater than 2 weeks without significant improvement. -Ophthalmology was consulted and evaluated patient on 03/26. S/p warm compresses and Tobradex 4 times a day OD x 2 weeks. Patient was intermittently compliant with eyedrops. -No worsening. Follow-up outpatient. Hypotension: Blood pressure labile. Continue Midodrine. Patient on max dose. Increase free water flushes as needed. Pre-renal azotemia: BUN mildly elevated at 22. Continue free water flushes Monitor BMP periodically Stage I decubitus ulcer, sacral skin tear: Continue wound care. Frequent turning of patient. Candidal infection: buttocks affected with satellite lesions to the perineum. -S/p Nystatin and clotrimazole Weakness: Continue physical therapy Nursing staff to get patient up out of bed at least 3 times daily Palliative care evaluation According to palliative care notes family wishes aggressive management, they are expecting him to improve, go to a rehabilitation facility and then improve enough to go home. They are declining hospice. DVT prophylaxis: SCDs. Avoid chemical prophylaxis secondary to GI bleed. Discharge Planning 08/16: [facility] considering for acceptance but son has to go to a conference there first. 08/26: CM continues to make calls to son for assistance to get patient placed as son needs to go to [place] [facility] to speak with them. Madeline Ortez September 09, 2016 10:27
[2016-09-09 20:00] VITALS: BP 105/75; PULSE 67; RESP 20; TEMP 97.8; O2SAT 95
[2016-09-09] MEDS: MIRTAZAPINE 15 MG TAB PEG SCH (21:00)
[2016-09-10] MEDS: MIDODRINE 5 MG TAB PO SCH ×3 (06:02→16:44)
[2016-09-10] MEDS: LANSOPRAZOLE SOLUTAB 30 MG TAB PEG SCH (07:00)
[2016-09-10] MEDS: ALLOPURINOL 100 MG TAB PEG SCH (07:00)
[2016-09-10] MEDS: FREE WATER G-TUBE SCH (07:01)
[2016-09-10 08:00] VITALS: BP 104/74; PULSE 59; RESP 17; TEMP 98.2; O2SAT 95
--- NOTE | 2016-09-10 10:58 | HHI.PR ---
Subjective Remarks Patient seen and examined today in follow-up for deconditioning. Patient denies any new complaints. No change in clinical status Objective Vitals Vital Signs Date Time Temp Pulse Resp B/P Pulse Ox O2 Delivery O2 Flow Rate FiO2 09/10/16 08:00 98.2 59 17 104/74 95 09/09/16 20:00 97.8 67 20 105/75 95 I/O 09/09/16 09/09/16 09/09/16 09/10/16 09/10/16 09/10/16 07:00 15:00 23:00 07:00 15:00 23:00 Intake Total 0 ml 420 ml Output Total 275 ml 300 ml 275 ml 275 ml Balance -275 ml -300 ml -275 ml 145 ml Intake Oral 0 ml 0 ml Tube Feeding 360 ml Tube Irrigant 60 ml Output Urine Total 275 ml 300 ml 275 ml 275 ml # Bowel Movements 0 0 Objective Remarks GENERAL: Well-developed, well-nourished, in no acute distress. Patient awake and alert HEENT: Head is normocephalic without any lesions or masses noted. Facial features are symmetric. Eyes: Extraocular muscles are intact. Conjunctivae were clear. Correlate base scaling noted on chin and nasolabial folds NECK: Trachea midline no deviation. CARDIAC: Regular rhythm, regular rate. S1/S2 are heard. No murmurs gallops or rubs. LUNGS: Clear to auscultation bilaterally. No wheeze, rhonchi or rales. No use of accessory muscles on inspiration or expiration. ABDOMEN: Soft, nontender. Nondistended. Bowel sounds heard in all 4 quadrants. No organomegaly or masses. Negative rebound, negative guarding, suprapubic catheter in place, PEG tube noted EXTREMITIES: No edema, pulses are equal bilaterally. No cyanosis or clubbing NEUROLOGY: Mood and affect appear appropriate. Cranial nerves II through XII grossly intact. Moving all extremities SKIN: Patient's back has skin breakdown on his back and sacral area. Procedures None Urinary Catheter: No Assessment to: Continue Soto insert reason: Obstruction/Retention Date of Insertion: Sep 01, 2016 Vascular Central Line Catheter: No A/P Assessment and Plan Weakness: Continue physical therapy Nursing staff to get patient up out of bed at least 3 times daily Dementia with inappropriate behavior, mood disorder improved Patient has been hospitalized for similar events in 2014 Consulted psychiatry for further evaluation, who indicated that this is a frontal lobe dementia Risperdal discontinued at family's request Continue Remeron Parkinson's disease: Patient has dementia and resting tremor. Chronic, stable. GI bleed with presenting of Upper GI bleed, patient with intermittent rectal bleeding: Resolved Hemoglobin continues to remain stable GI was following and reevaluated on 05/04/16 Presumed hemorrhoids, status post Anusol HC for 2 weeks Continue PPI. Protein calorie malnutrition: Improving Consulted dietitian who indicated that patient may be converted to bolus feeding Jevity 1.5, 6 cans per day. 1.5 cans that 0800 and 2000, 1 can at 1100, 1400, 1700 Prealbumin level 24 Ensure Enlive 3 times a day since pudding 3 times a day Hypotension with episodes of hypertension: Stable Blood pressure labile. Continue monitor blood pressure Continue Midodrine. Mild obstructive uropathy: Resolved. Appreciate urology recommendations. Suprapubic catheter in place, last changed 07/31/16. Change today Abdominal pelvis CT 03/06/16 shows resolution of right sided hydronephrosis. 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 Stage I decubitus ulcer, sacral skin tear: Continue wound care. Seborrhea dermatitis Continue hydrocortisone cream for 2 weeks Palliative care evaluation According to palliative care notes. Family wishes aggressive management, they are expecting him to improve, go to a rehabilitation facility and then improve enough to go home. They are deferring hospice. DVT prophylaxis: SCDs. Avoid chemical prophylaxis secondary to GI bleed. Records reviewed, no change in present treatment plan Discharge Planning Discharge planning per case management. Case management still trying to reach out to son to help with nursing facilities for acceptance. Jaguar Walker September 10, 2016 10:58
[2016-09-10 20:00] VITALS: BP 121/74; PULSE 65; RESP 22; TEMP 97.2; O2SAT 100
[2016-09-10] MEDS: MIRTAZAPINE 15 MG TAB PEG SCH (23:48)
[2016-09-11] MEDS: MIDODRINE 5 MG TAB PO SCH ×3 (07:32→17:19)
[2016-09-11 07:37] LABS: AUTOMATED NEUTROPHIL # 4.1 TH/MM3 (1.8-7.7); BASOPHIL # 0.1 TH/MM3 (0-0.2); BASOPHIL % 0.8 % (0.0-2.0); EOSINOPHIL # 0.5 TH/MM3 (0-0.4); HEMATOCRIT 48.8 % (39.0-51.0); LYMPH % 36.1 % (9.0-44.0); LYMPHOCYTE # 2.9 TH/MM3 (1.0-4.8); MEAN CELL VOLUME 87.8 FL (80.0-100.0); MEAN CORPUSCULAR HEMOGLOBIN 27.2 PG (27.0-34.0); MONO % 6.1 % (0.0-8.0); PLATELET COUNT 165 TH/MM3 (150-450); RED BLOOD COUNT 5.55 MIL/MM3 (4.50-5.90); RED CELL DISTRIBUTION WIDTH 16.1 % (11.6-17.2); WHITE BLOOD COUNT 8.1 TH/MM3 (4.0-11.0)
[2016-09-11 07:47] LABS: HEMO FLAGS DIFF FINAL
[2016-09-11 07:48] LABS: POTASSIUM 4.3 MEQ/L (3.5-5.1)
[2016-09-11 07:51] LABS: BICARBONATE 30.4 MEQ/L (21.0-32.0); MAGNESIUM 2.4 MG/DL (1.5-2.5)
[2016-09-11 08:00] VITALS: BP 99/72; PULSE 69; RESP 18; TEMP 97; O2SAT 99
[2016-09-11] MEDS: FREE WATER G-TUBE SCH (08:09)
[2016-09-11] MEDS: LANSOPRAZOLE SOLUTAB 30 MG TAB PEG SCH (09:10)
[2016-09-11] MEDS: ALLOPURINOL 100 MG TAB PEG SCH (09:11)
--- NOTE | 2016-09-11 10:56 | HHI.PR ---
Subjective Remarks Patient seen and examined today for follow-up on deconditioning. Patient denies any new complaints. Is no change in his clinical status. Objective Vitals Vital Signs Date Time Temp Pulse Resp B/P Pulse Ox O2 Delivery O2 Flow Rate FiO2 09/11/16 08:00 97.0 69 18 99/72 99 09/10/16 20:00 97.2 65 22 121/74 100 I/O 09/10/16 09/10/16 09/10/16 09/11/16 09/11/16 09/11/16 06:59 14:59 22:59 06:59 14:59 22:59 Intake Total 420 ml 0 ml Output Total 275 ml 350 ml 375 ml 375 ml Balance 145 ml -350 ml -375 ml -375 ml Intake Oral 0 ml 0 ml Tube Feeding 360 ml Tube Irrigant 60 ml Output Urine Total 275 ml 350 ml 375 ml 375 ml # Bowel Movements 0 0 1 Result Diagram: 09/11/16 0715 09/11/16 0715 Objective Remarks GENERAL: Well-developed, well-nourished, in no acute distress. Patient awake and alert HEENT: Head is normocephalic without any lesions or masses noted. Facial features are symmetric. Eyes: Extraocular muscles are intact. Conjunctivae were clear. Correlate base scaling noted on chin and nasolabial folds NECK: Trachea midline no deviation. CARDIAC: Regular rhythm, regular rate. S1/S2 are heard. No murmurs gallops or rubs. LUNGS: Clear to auscultation bilaterally. No wheeze, rhonchi or rales. No use of accessory muscles on inspiration or expiration. ABDOMEN: Soft, nontender. Nondistended. Bowel sounds heard in all 4 quadrants. No organomegaly or masses. Negative rebound, negative guarding, suprapubic catheter in place, PEG tube noted EXTREMITIES: No edema, pulses are equal bilaterally. No cyanosis or clubbing NEUROLOGY: Mood and affect appear appropriate. Cranial nerves II through XII grossly intact. Moving all extremities SKIN: Patient's back has skin breakdown on his back and sacral area. Procedures None Urinary Catheter: Yes Assessment to: Continue Date of Insertion: Sep 01, 2016 Vascular Central Line Catheter: No A/P Assessment and Plan Weakness: Continue physical therapy Nursing staff to get patient up out of bed at least 3 times daily Dementia with inappropriate behavior, mood disorder improved Patient has been hospitalized for similar events in 2015 Consulted psychiatry for further evaluation, who indicated that this is a frontal lobe dementia Risperdal discontinued at family's request Continue Remeron Parkinson's disease: Patient has dementia and resting tremor. Chronic, stable. GI bleed with presenting of Upper GI bleed, patient with intermittent rectal bleeding: Resolved Hemoglobin continues to remain stable GI was following and reevaluated on 05/04/16 Presumed hemorrhoids, status post Anusol HC for 2 weeks Continue PPI. Protein calorie malnutrition: Improving Consulted dietitian who indicated that patient may be converted to bolus feeding Jevity 1.5, 6 cans per day. 1.5 cans that 0800 and 2000, 1 can at 1100, 1400, 1700 Prealbumin level 24 Ensure Enlive 3 times a day since pudding 3 times a day Hypotension with episodes of hypertension: Stable Blood pressure labile. Continue monitor blood pressure Continue Midodrine. Mild obstructive uropathy: Resolved. Appreciate urology recommendations. Suprapubic catheter in place, last changed 07/31/16. Change today Abdominal pelvis CT 03/06/16 shows resolution of right sided hydronephrosis. 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 Stage I decubitus ulcer, sacral skin tear: Continue wound care. Seborrhea dermatitis Continue hydrocortisone cream for 2 weeks Palliative care evaluation According to palliative care notes. Family wishes aggressive management, they are expecting him to improve, go to a rehabilitation facility and then improve enough to go home. They are deferring hospice. DVT prophylaxis: SCDs. Avoid chemical prophylaxis secondary to GI bleed. Records reviewed, no change in clinical status or treatment plan Discharge Planning Discharge planning per case management. Case management still trying to reach out to son to help with nursing facilities for acceptance. Jaguar Walker September 11, 2016 10:56
[2016-09-11] MEDS: MIRTAZAPINE 15 MG TAB PEG SCH (18:48)
[2016-09-11 20:00] VITALS: BP 107/76; PULSE 79; RESP 20; TEMP 98.3; O2SAT 97
[2016-09-12] MEDS: MIDODRINE 5 MG TAB PO SCH ×3 (06:00→17:40)
[2016-09-12 08:00] VITALS: BP 121/73; PULSE 62; RESP 18; TEMP 98.7; O2SAT 96
[2016-09-12] MEDS: LANSOPRAZOLE SOLUTAB 30 MG TAB PEG SCH (08:20)
[2016-09-12] MEDS: FREE WATER G-TUBE SCH (08:20)
[2016-09-12] MEDS: ALLOPURINOL 100 MG TAB PEG SCH (08:20)
--- NOTE | 2016-09-12 09:40 | HHI.PR ---
Subjective Remarks Patient seen and examined today in follow-up for deconditioning, weakness. Patient appears to be in good spirits today. Given his thumbs up that there is no acute problems today. Objective Vitals Vital Signs Date Time Temp Pulse Resp B/P Pulse Ox O2 Delivery O2 Flow Rate FiO2 09/11/16 20:00 98.3 79 20 107/76 97 I/O 09/11/16 09/11/16 09/11/16 09/12/16 09/12/16 09/12/16 07:00 15:00 23:00 07:00 15:00 23:00 Intake Total 0 ml Output Total 375 ml 350 ml 225 ml 225 ml Balance -375 ml -350 ml -225 ml -225 ml Intake Oral 0 ml Output Urine Total 375 ml 350 ml 225 ml 225 ml # Bowel Movements 1 1 1 0 Result Diagram: 09/11/1671409/11/16714 Objective Remarks GENERAL: Well-developed, well-nourished, in no acute distress. Patient awake and alert HEENT: Head is normocephalic without any lesions or masses noted. Facial features are symmetric. Eyes: Extraocular muscles are intact. Conjunctivae were clear. Correlate base scaling noted on chin and nasolabial folds NECK: Trachea midline no deviation. CARDIAC: Regular rhythm, regular rate. S1/S2 are heard. No murmurs gallops or rubs. LUNGS: Clear to auscultation bilaterally. No wheeze, rhonchi or rales. No use of accessory muscles on inspiration or expiration. ABDOMEN: Soft, nontender. Nondistended. Bowel sounds heard in all 4 quadrants. No organomegaly or masses. Negative rebound, negative guarding, suprapubic catheter in place, PEG tube noted EXTREMITIES: No edema, pulses are equal bilaterally. No cyanosis or clubbing NEUROLOGY: Mood and affect appear appropriate. Cranial nerves II through XII grossly intact. Moving all extremities SKIN: Patient's back has skin breakdown on his back and sacral area. Procedures None Urinary Catheter: Yes (suprapubic catheter) Assessment to: Continue Soto insert reason: Obstruction/Retention Date of Insertion: Sep 01, 2016 Vascular Central Line Catheter: No A/P Assessment and Plan Weakness: Continue physical therapy Nursing staff to get patient up out of bed at least 3 times daily Dementia with inappropriate behavior, mood disorder improved Patient has been hospitalized for similar events in 2015 Consulted psychiatry for further evaluation, who indicated that this is a frontal lobe dementia Risperdal discontinued at family's request Continue Remeron Parkinson's disease: Patient has dementia and resting tremor. Chronic, stable. GI bleed with presenting of Upper GI bleed, patient with intermittent rectal bleeding: Resolved Hemoglobin continues to remain stable GI was following and reevaluated on 05/04/16 Presumed hemorrhoids, status post Anusol HC for 2 weeks Continue PPI. Protein calorie malnutrition: Improving Consulted dietitian who indicated that patient may be converted to bolus feeding Jevity 1.5, 6 cans per day. 1.5 cans that 0800 and 2000, 1 can at 1100, 1400, 1700 Prealbumin level 24 Ensure Enlive 3 times a day since pudding 3 times a day Hypotension with episodes of hypertension: Stable Blood pressure labile. Continue monitor blood pressure Continue Midodrine. Mild obstructive uropathy: Resolved. Appreciate urology recommendations. Suprapubic catheter in place, last changed 07/31/16. Change today Abdominal pelvis CT 03/06/16 shows resolution of right sided hydronephrosis. 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 Stage I decubitus ulcer, sacral skin tear: Continue wound care. Seborrhea dermatitis Continue hydrocortisone cream for 2 weeks Palliative care evaluation According to palliative care notes. Family wishes aggressive management, they are expecting him to improve, go to a rehabilitation facility and then improve enough to go home. They are deferring hospice. DVT prophylaxis: SCDs. Avoid chemical prophylaxis secondary to GI bleed. Records reviewed, no change in clinical status or treatment plan Discharge Planning Discharge planning per case management. Case management still trying to reach out to son to help with nursing facilities for acceptance. Jaguar Walker September 12, 2016 09:40
[2016-09-12 20:00] VITALS: BP 105/69; PULSE 75; RESP 19; TEMP 97.5; O2SAT 97
[2016-09-12] MEDS: MIRTAZAPINE 15 MG TAB PEG SCH (22:17)
[2016-09-13] MEDS: MIDODRINE 5 MG TAB PO SCH ×3 (06:11→18:11)
[2016-09-13 08:00] VITALS: BP 122/68; PULSE 69; RESP 18; TEMP 97.3; O2SAT 95
[2016-09-13] MEDS: FREE WATER G-TUBE SCH (09:00)
[2016-09-13] MEDS: LANSOPRAZOLE SOLUTAB 30 MG TAB PEG SCH (09:24)
[2016-09-13] MEDS: ALLOPURINOL 100 MG TAB PEG SCH (09:24)
--- NOTE | 2016-09-13 10:38 | HHI.PR ---
Subjective Remarks Patient seen and examined today for follow-up on weakness, deconditioning. Patient denies any new complaints. Patient still not functioning her moving out of bed. Objective Vitals Vital Signs Date Time Temp Pulse Resp B/P Pulse Ox O2 Delivery O2 Flow Rate FiO2 09/13/16 08:00 97.3 69 18 122/68 95 09/12/16 20:00 97.5 75 19 105/69 97 I/O 09/12/16 09/12/16 09/12/16 09/13/16 09/13/16 09/13/16 07:00 15:00 23:00 07:00 15:00 23:00 Intake Total 1440 ml 760 ml Output Total 225 ml 950 ml 525 ml Balance -225 ml 1440 ml -950 ml 235 ml Tube Feeding 840 ml 720 ml Other 600 ml 40 ml Output Urine Total 225 ml 950 ml 525 ml # Bowel Movements 0 Result Diagram: 09/11/16 0715 09/11/1615 Objective Remarks GENERAL: Well-developed, well-nourished, in no acute distress. Patient awake and alert HEENT: Head is normocephalic without any lesions or masses noted. Facial features are symmetric. Eyes: Extraocular muscles are intact. Conjunctivae were clear. Correlate base scaling noted on chin and nasolabial folds NECK: Trachea midline no deviation. CARDIAC: Regular rhythm, regular rate. S1/S2 are heard. No murmurs gallops or rubs. LUNGS: Clear to auscultation bilaterally. No wheeze, rhonchi or rales. No use of accessory muscles on inspiration or expiration. ABDOMEN: Soft, nontender. Nondistended. Bowel sounds heard in all 4 quadrants. No organomegaly or masses. Negative rebound, negative guarding, suprapubic catheter in place, PEG tube noted EXTREMITIES: No edema, pulses are equal bilaterally. No cyanosis or clubbing NEUROLOGY: Mood and affect appear appropriate. Cranial nerves II through XII grossly intact. Moving all extremities SKIN: Patient's back has skin breakdown on his back and sacral area. Procedures None Urinary Catheter: Yes Assessment to: Continue Soto insert reason: Obstruction/Retention Date of Insertion: Sep 01, 2016 Vascular Central Line Catheter: No A/P Assessment and Plan Weakness: Continue physical therapy Nursing staff to get patient up out of bed at least 3 times daily Dementia with inappropriate behavior, mood disorder improved Patient has been hospitalized for similar events in 2015 Consulted psychiatry for further evaluation, who indicated that this is a frontal lobe dementia Risperdal discontinued at family's request Continue Remeron Parkinson's disease: Patient has dementia and resting tremor. Chronic, stable. GI bleed with presenting of Upper GI bleed, patient with intermittent rectal bleeding: Resolved Hemoglobin continues to remain stable GI was following and reevaluated on 05/04/16 Presumed hemorrhoids, status post Anusol HC for 2 weeks Continue PPI. Protein calorie malnutrition: Improving Consulted dietitian who indicated that patient may be converted to bolus feeding Jevity 1.5, 6 cans per day. 1.5 cans that 0800 and 2000, 1 can at 1100, 1400, 1700 Prealbumin level 24 Ensure Enlive 3 times a day since pudding 3 times a day Hypotension with episodes of hypertension: Stable Blood pressure labile. Continue monitor blood pressure Continue Midodrine. Mild obstructive uropathy: Resolved. Appreciate urology recommendations. Suprapubic catheter in place, last changed 07/31/16. Change today Abdominal pelvis CT 03/06/16 shows resolution of right sided hydronephrosis. 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 Stage I decubitus ulcer, sacral skin tear: Continue wound care. Seborrhea dermatitis Continue hydrocortisone cream for 2 weeks Palliative care evaluation According to palliative care notes. Family wishes aggressive management, they are expecting him to improve, go to a rehabilitation facility and then improve enough to go home. They are deferring hospice. DVT prophylaxis: SCDs. Avoid chemical prophylaxis secondary to GI bleed. Records reviewed, no change in clinical status or treatment plan Discharge Planning Discharge planning per case management. Case management still trying to reach out to son to help with nursing facilities for acceptance. Jaguar Walker September 13, 2016 10:38
[2016-09-13 20:00] VITALS: BP 124/82; PULSE 68; RESP 19; TEMP 98.1; O2SAT 97
[2016-09-13] MEDS: MIRTAZAPINE 15 MG TAB PEG SCH (21:26)
[2016-09-14] MEDS: MIDODRINE 5 MG TAB PO SCH ×3 (05:40→17:41)
[2016-09-14 08:00] VITALS: BP 121/76; PULSE 65; RESP 18; TEMP 96; O2SAT 97
[2016-09-14] MEDS: FREE WATER G-TUBE SCH (09:00)
[2016-09-14] MEDS: LANSOPRAZOLE SOLUTAB 30 MG TAB PEG SCH (09:19)
[2016-09-14] MEDS: ALLOPURINOL 100 MG TAB PEG SCH (09:19)
--- NOTE | 2016-09-14 12:27 | HHI.PR ---
Subjective Remarks Patient seen and examined today for follow-up on deconditioning. Patient denies any new complaints. No change in clinical status. Objective Vitals Vital Signs Date Time Temp Pulse Resp B/P Pulse Ox O2 Delivery O2 Flow Rate FiO2 09/14/16 08:00 96.0 65 18 121/76 97 09/13/16 20:00 98.1 68 19 124/82 97 I/O 09/13/16 09/13/16 09/13/16 09/14/16 09/14/16 09/14/16 07:00 15:00 23:00 07:00 15:00 23:00 Intake Total 760 ml 0 ml Output Total 525 ml 625 ml 250 ml Balance 235 ml -625 ml -250 ml IV Total 0 ml Tube Feeding 720 ml Other 40 ml Output Urine Total 525 ml 625 ml 250 ml # Bowel Movements 2 Result Diagram: 09/11/1671409/11/16714 Objective Remarks GENERAL: Well-developed, well-nourished, in no acute distress. Patient awake and alert HEENT: Head is normocephalic without any lesions or masses noted. Facial features are symmetric. Eyes: Extraocular muscles are intact. Conjunctivae were clear. Correlate base scaling noted on chin and nasolabial folds NECK: Trachea midline no deviation. CARDIAC: Regular rhythm, regular rate. S1/S2 are heard. No murmurs gallops or rubs. LUNGS: Clear to auscultation bilaterally. No wheeze, rhonchi or rales. No use of accessory muscles on inspiration or expiration. ABDOMEN: Soft, nontender. Nondistended. Bowel sounds heard in all 4 quadrants. No organomegaly or masses. Negative rebound, negative guarding, suprapubic catheter in place, PEG tube noted EXTREMITIES: No edema, pulses are equal bilaterally. No cyanosis or clubbing NEUROLOGY: Mood and affect appear appropriate. Cranial nerves II through XII grossly intact. Moving all extremities SKIN: Patient's back has skin breakdown on his back and sacral area. Procedures None Urinary Catheter: Yes (suprapubic catheter) Assessment to: Continue Date of Insertion: Sep 01, 2016 Vascular Central Line Catheter: No A/P Assessment and Plan Weakness: Continue physical therapy Nursing staff to get patient up out of bed at least 3 times daily Dementia with inappropriate behavior, mood disorder improved Patient has been hospitalized for similar events in 2014 Consulted psychiatry for further evaluation, who indicated that this is a frontal lobe dementia Risperdal discontinued at family's request Continue Remeron Parkinson's disease: Patient has dementia and resting tremor. Chronic, stable. GI bleed with presenting of Upper GI bleed, patient with intermittent rectal bleeding: Resolved Hemoglobin continues to remain stable GI was following and reevaluated on 05/04/16 Presumed hemorrhoids, status post Anusol HC for 2 weeks Continue PPI. Protein calorie malnutrition: Improving Consulted dietitian who indicated that patient may be converted to bolus feeding Jevity 1.5, 6 cans per day. 1.5 cans that 0800 and 2000, 1 can at 1100, 1400, 1700 Prealbumin level 24 Ensure Enlive 3 times a day since pudding 3 times a day Hypotension with episodes of hypertension: Stable Blood pressure labile. Continue monitor blood pressure Continue Midodrine. Mild obstructive uropathy: Resolved. Appreciate urology recommendations. Suprapubic catheter in place, last changed 07/31/16. Change today Abdominal pelvis CT 03/06/16 shows resolution of right sided hydronephrosis. 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 Stage I decubitus ulcer, sacral skin tear: Continue wound care. Seborrhea dermatitis Continue hydrocortisone cream for 2 weeks Palliative care evaluation According to palliative care notes. Family wishes aggressive management, they are expecting him to improve, go to a rehabilitation facility and then improve enough to go home. They are deferring hospice. DVT prophylaxis: SCDs. Avoid chemical prophylaxis secondary to GI bleed. Records reviewed, no change in clinical status or treatment plan Discharge Planning Discharge planning per case management. Case management still trying to reach out to son to help with nursing facilities for acceptance. Jaguar Walker September 14, 2016 12:27
[2016-09-14 20:00] VITALS: BP 115/76; PULSE 60; RESP 16; TEMP 96.7; O2SAT 98
[2016-09-14] MEDS: MIRTAZAPINE 15 MG TAB PEG SCH (21:04)
[2016-09-15] MEDS: MIDODRINE 5 MG TAB PO SCH ×3 (06:06→17:51)
[2016-09-15] MEDS: LANSOPRAZOLE SOLUTAB 30 MG TAB PEG SCH (08:35)
[2016-09-15] MEDS: ALLOPURINOL 100 MG TAB PEG SCH (08:35)
[2016-09-15] MEDS: FREE WATER G-TUBE SCH (08:36)
--- NOTE | 2016-09-15 08:42 | HHI.PR ---
Subjective Remarks Patient seen and examined today for follow-up on the condition, weakness. Patient denies any new complaints. No change in clinical status. Objective Vitals Vital Signs Date Time Temp Pulse Resp B/P Pulse Ox O2 Delivery O2 Flow Rate FiO2 09/14/16 20:00 96.7 60 16 115/76 98 I/O 09/14/16 09/14/16 09/14/16 09/15/16 09/15/16 09/15/16 07:00 15:00 23:00 07:00 15:00 23:00 Intake Total 0 ml 0 ml 500 ml Output Total 250 ml 350 ml 200 ml 200 ml Balance -250 ml -350 ml -200 ml 300 ml Intake Oral 0 ml 0 ml 0 ml Tube Feeding 400 ml Other 100 ml Output Urine Total 250 ml 350 ml 200 ml 200 ml # Bowel Movements 2 1 0 0 Result Diagram: 09/11/1671409/11/16714 Objective Remarks GENERAL: Well-developed, well-nourished, in no acute distress. Patient awake and alert HEENT: Head is normocephalic without any lesions or masses noted. Facial features are symmetric. Eyes: Extraocular muscles are intact. Conjunctivae were clear. Correlate base scaling noted on chin and nasolabial folds NECK: Trachea midline no deviation. CARDIAC: Regular rhythm, regular rate. S1/S2 are heard. No murmurs gallops or rubs. LUNGS: Clear to auscultation bilaterally. No wheeze, rhonchi or rales. No use of accessory muscles on inspiration or expiration. ABDOMEN: Soft, nontender. Nondistended. Bowel sounds heard in all 4 quadrants. No organomegaly or masses. Negative rebound, negative guarding, suprapubic catheter in place, PEG tube noted EXTREMITIES: No edema, pulses are equal bilaterally. No cyanosis or clubbing NEUROLOGY: Mood and affect appear appropriate. Cranial nerves II through XII grossly intact. Moving all extremities SKIN: Patient's back has skin breakdown on his back and sacral area. Procedures None Urinary Catheter: Yes (suprapubic catheter) Assessment to: Continue Soto insert reason: Obstruction/Retention Date of Insertion: Sep 01, 2016 Vascular Central Line Catheter: No A/P Assessment and Plan Weakness: Continue physical therapy Nursing staff to get patient up out of bed at least 3 times daily Dementia with inappropriate behavior, mood disorder improved Patient has been hospitalized for similar events in 2015 Consulted psychiatry for further evaluation, who indicated that this is a frontal lobe dementia Risperdal discontinued at family's request Continue Remeron Parkinson's disease: Patient has dementia and resting tremor. Chronic, stable. GI bleed with presenting of Upper GI bleed, patient with intermittent rectal bleeding: Resolved Hemoglobin continues to remain stable GI was following and reevaluated on 05/04/16 Presumed hemorrhoids, status post Anusol HC for 2 weeks Continue PPI. Protein calorie malnutrition: Improving Consulted dietitian who indicated that patient may be converted to bolus feeding Jevity 1.5, 6 cans per day. 1.5 cans that 0800 and 2000, 1 can at 1100, 1400, 1700 Prealbumin level 24 Ensure Enlive 3 times a day since pudding 3 times a day Hypotension with episodes of hypertension: Stable Blood pressure labile. Continue monitor blood pressure Continue Midodrine. Mild obstructive uropathy: Resolved. Appreciate urology recommendations. Suprapubic catheter in place, improved after replacement of Soto Abdominal pelvis CT 03/06/16 shows resolution of right sided hydronephrosis. 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 Stage I decubitus ulcer, sacral skin tear: Continue wound care. Seborrhea dermatitis Status post hydrocortisone cream for 2 weeks Palliative care evaluation According to palliative care notes. Family wishes aggressive management, they are expecting him to improve, go to a rehabilitation facility and then improve enough to go home. They are deferring hospice. DVT prophylaxis: SCDs. Avoid chemical prophylaxis secondary to GI bleed. Records reviewed, no change in clinical status or treatment plan Discharge Planning Discharge planning per case management. Case management still trying to reach out to son to help with nursing facilities for acceptance. Jaguar Walker September 15, 2016 08:42
[2016-09-15 20:00] VITALS: BP 98/66; PULSE 75; RESP 16; TEMP 98.6; O2SAT 94
[2016-09-15] MEDS: MIRTAZAPINE 15 MG TAB PEG SCH (20:36)
[2016-09-16] MEDS: MIDODRINE 5 MG TAB PO SCH ×3 (06:28→18:04)
[2016-09-16 08:44] VITALS: BP 100/64; PULSE 72; RESP 18; TEMP 96; O2SAT 98
[2016-09-16] MEDS: LANSOPRAZOLE SOLUTAB 30 MG TAB PEG SCH (08:56)
[2016-09-16] MEDS: ALLOPURINOL 100 MG TAB PEG SCH (08:56)
[2016-09-16] MEDS: FREE WATER G-TUBE SCH (08:56)
--- NOTE | 2016-09-16 11:37 | HHI.PR ---
Subjective Remarks Patient seen and examined today in follow-up for deconditioning, weakness. Patient still remains in persistent weakness state. Patient denies any acute abnormalities. Objective Vitals Vital Signs Date Time Temp Pulse Resp B/P Pulse Ox O2 Delivery O2 Flow Rate FiO2 09/16/16 08:44 96.0 72 18 100/64 98 09/15/16 20:00 98.6 75 16 98/66 94 I/O 09/15/16 09/15/16 09/15/16 09/16/16 09/16/16 09/16/16 07:00 15:00 23:00 07:00 15:00 23:00 Intake Total 500 ml 980 ml 1050 ml 200 ml Output Total 200 ml 600 ml 800 ml Balance 300 ml 980 ml 450 ml -600 ml Intake Oral 0 ml Tube Feeding 400 ml 480 ml 600 ml Tube Irrigant 200 ml 200 ml Other 100 ml 500 ml 250 ml Output Urine Total 200 ml 600 ml 800 ml # Bowel Movements 0 1 1 Objective Remarks GENERAL: Well-developed, well-nourished, in no acute distress. Patient awake and alert HEENT: Head is normocephalic without any lesions or masses noted. Facial features are symmetric. Eyes: Extraocular muscles are intact. Conjunctivae were clear. Correlate base scaling noted on chin and nasolabial folds NECK: Trachea midline no deviation. CARDIAC: Regular rhythm, regular rate. S1/S2 are heard. No murmurs gallops or rubs. LUNGS: Clear to auscultation bilaterally. No wheeze, rhonchi or rales. No use of accessory muscles on inspiration or expiration. ABDOMEN: Soft, nontender. Nondistended. Bowel sounds heard in all 4 quadrants. No organomegaly or masses. Negative rebound, negative guarding, suprapubic catheter in place, PEG tube noted EXTREMITIES: No edema, pulses are equal bilaterally. No cyanosis or clubbing NEUROLOGY: Mood and affect appear appropriate. Cranial nerves II through XII grossly intact. Moving all extremities SKIN: Patient's back has skin breakdown on his back and sacral area. Procedures None Urinary Catheter: No Assessment to: Continue Soto insert reason: Obstruction/Retention Date of Insertion: Sep 01, 2016 Vascular Central Line Catheter: No A/P Assessment and Plan Weakness: Continue physical therapy Nursing staff to get patient up out of bed at least 3 times daily Dementia with inappropriate behavior, mood disorder improved Patient has been hospitalized for similar events in 2015 Consulted psychiatry for further evaluation, who indicated that this is a frontal lobe dementia Risperdal discontinued at family's request Continue Remeron Parkinson's disease: Patient has dementia and resting tremor. Chronic, stable. GI bleed with presenting of Upper GI bleed, patient with intermittent rectal bleeding: Resolved Hemoglobin continues to remain stable GI was following and reevaluated on 05/04/16 Presumed hemorrhoids, status post Anusol HC for 2 weeks Continue PPI. Protein calorie malnutrition: Improving Consulted dietitian who indicated that patient may be converted to bolus feeding Jevity 1.5, 6 cans per day. 1.5 cans that 0800 and 2000, 1 can at 1100, 1400, 1700 Prealbumin level 24 Ensure Enlive 3 times a day since pudding 3 times a day Hypotension with episodes of hypertension: Stable Blood pressure labile. Continue monitor blood pressure Continue Midodrine. Mild obstructive uropathy: Resolved. Appreciate urology recommendations. Suprapubic catheter in place, improved after replacement of Soto Abdominal pelvis CT 03/06/16 shows resolution of right sided hydronephrosis. 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 Stage I decubitus ulcer, sacral skin tear: Continue wound care. Seborrhea dermatitis Status post hydrocortisone cream for 2 weeks Palliative care evaluation According to palliative care notes. Family wishes aggressive management, they are expecting him to improve, go to a rehabilitation facility and then improve enough to go home. They are deferring hospice. DVT prophylaxis: SCDs. Avoid chemical prophylaxis secondary to GI bleed. Records reviewed, no change in clinical status or treatment plan Discharge Planning Discharge planning per case management. Case management still trying to reach out to son to help with nursing facilities for acceptance. Jaguar Walker September 16, 2016 11:37
[2016-09-16 20:00] VITALS: BP 95/59; PULSE 75; RESP 19; TEMP 97.3; O2SAT 97
[2016-09-16] MEDS: MIRTAZAPINE 15 MG TAB PEG SCH (20:46)
[2016-09-17] MEDS: MIDODRINE 5 MG TAB PO SCH ×3 (06:34→17:11)
[2016-09-17 08:00] VITALS: BP 97/62; PULSE 79; RESP 18; TEMP 97.7; O2SAT 96
[2016-09-17] MEDS: LANSOPRAZOLE SOLUTAB 30 MG TAB PEG SCH (08:48)
[2016-09-17] MEDS: ALLOPURINOL 100 MG TAB PEG SCH (08:48)
[2016-09-17] MEDS: FREE WATER G-TUBE SCH (08:49)
--- NOTE | 2016-09-17 11:20 | HHI.PR ---
Subjective Remarks Follow up for dementia. No acute complaints. Objective Vitals Vital Signs Date Time Temp Pulse Resp B/P Pulse Ox O2 Delivery O2 Flow Rate FiO2 09/17/16 08:00 97.7 79 18 97/62 96 09/16/16 20:00 97.3 75 19 95/59 97 I/O 09/16/16 09/16/16 09/16/16 09/17/16 09/17/16 09/17/16 06:59 14:59 22:59 06:59 14:59 22:59 Intake Total 200 ml 2540 ml 200 ml Output Total 800 ml 425 ml 575 ml Balance -600 ml 2115 ml -375 ml Tube Feeding 1440 ml Tube Irrigant 200 ml 200 ml 200 ml Other 900 ml Output Urine Total 800 ml 425 ml 575 ml # Bowel Movements 1 1 Objective Remarks GENERAL: Well developed male in no apparent distress. CARDIOVASCULAR: Regular rate and rhythm. RESPIRATORY: No accessory muscle use. CTAB. GASTROINTESTINAL: Abdomen is soft, non-tender, nondistended. NEURO: Awaken and alert. Nods to questions, but does not speak aloud. PSYCHIATRIC: Normal mood and affect. Procedures None Urinary Catheter: Yes Assessment to: Continue Soto insert reason: Obstruction/Retention Date of Insertion: Sep 01, 2016 Vascular Central Line Catheter: No A/P Problem List: (1) Decreased urine output ICD Code: R34 Status: Acute (2) Prerenal azotemia ICD Code: R79.89 Status: Acute (3) Hematuria ICD Code: R31.9 Status: Acute Assessment and Plan Hematuria: Resolved. -Patient is not on anticoagulation. -Hemoglobin normal. -Creatinine is normal. -UA 4/5 with innumerable RBCs, but urine sample not grossly bloody. Urinary tract infection, recurrent: Urine culture positive for Proteus mirabilis and GBS on 01/20. Patient completed course of antibiotics. Abdominal pelvis CT 03/06 shows decompressed bladder with circumferential bladder wall thickening and intraluminal air possibly indicating cystitis, but the patient had been afebrile with normal WBC count. Urine culture 05/31 with Serratia marcescens, Pseudomonas, and Enterococcus faecalis. Patient was started on antibiotics. Repeat urine culture on 06/04 only reveals contaminants. Urine culture 4/5 with Enterococcus faecalis and Pseudomonas Aeruginosa similar to previous culture on 05/31. Patient remains afebrile. CBC with normal white blood cell count. Continue to change Soto monthly. 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 Monitor and treat only if symptomatic. Mild obstructive uropathy: Resolved. Appreciate urology recommendations. Suprapubic catheter to be changed monthly; last changed 09/01/16. Abdominal pelvis CT 03/06/16 shows resolution of right sided hydronephrosis. Upper GI bleeding with recurrent rectal bleeding: Resolved. Hemoglobin stable. GI reevaluated patient on 05/04. Presumed hemorrhoids, s/p Anusol HC for total of 2 weeks. Continue PPI. Protein calorie malnutrition: Improving Consulted dietitian who indicated that patient may be converted to bolus feeding Jevity 1.5 w/ bolus 1.5 cans(360ml) @ 0800 and 2000 and 1-can(240ml) @ 1100, 1400 and 1700. Free Water Flush 100ml before and after each bolus feeding. Ensure Enlive tid and chocolate pudding tid Prealbumin level 25. Patient desired to eat and speech therapy advised puree diet, thin liquids, but patient has not been eating. Quality Improvement Consultant suggested considering appetite stimulant. This was discussed with attending, but we do not believe this would be beneficial for patient and would add unnecessary risk to the patient. Will continue with tube feeds only. Dementia with inappropriate behavior, mood disorder improved Patient had inappropriate behavior which is resolved now. He has been very appropriate for a long time now. Patient has been hospitalized for similar events in 2015 Consulted psychiatry for further evaluation, who indicated that this is a frontal lobe dementia Risperdal 0.25 mg during the day, Risperdal 0.5 mg at night. Risperdal was discontinued per POA request. Continue [facility] Psychiatry was reconsulted and is ok with discontinuation of Risperdal. Seborrheic dermatitis: Flaky skin to the face and neck. Improved s/p one time dose of Ketoconazole 2% shampoo. S/p hydrocortisone cream for 2 weeks Chalazion: Nodule R upper eyelid. There is no evidence of preseptal cellulitis. -Warm compresses were applied but it was greater than 2 weeks without significant improvement. -Ophthalmology was consulted and evaluated patient on 03/26. S/p warm compresses and Tobradex 4 times a day OD x 2 weeks. Patient was intermittently compliant with eyedrops. -No worsening. Follow-up outpatient. Hypotension: Blood pressure labile. Continue Midodrine. Patient on max dose. Increase free water flushes as needed. Pre-renal azotemia: Resolved. BUN improved to 18 on 09/11/16. Continue free water flushes Monitor BMP periodically Stage I decubitus ulcer, sacral skin tear: Continue wound care. Frequent turning of patient. Candidal infection: buttocks affected with satellite lesions to the perineum. -S/p Nystatin and clotrimazole Weakness: Continue physical therapy Nursing staff to get patient up out of bed at least 3 times daily Palliative care evaluation According to palliative care notes family wishes aggressive management, they are expecting him to improve, go to a rehabilitation facility and then improve enough to go home. They are declining hospice. DVT prophylaxis: SCDs. Avoid chemical prophylaxis secondary to GI bleed. Discharge Planning 08/16: [place] [facility] considering for acceptance but son has to go to a conference there first. 08/26: continues to make calls to son for assistance to get patient placed as son needs to go to [place] [facility] to speak with them. Madeline Ortez September 17, 2016 11:20 Madeline Ortez September 17, 2016 11:20
[2016-09-17 20:00] VITALS: BP 104/70; PULSE 76; RESP 19; TEMP 96.7; O2SAT 95
[2016-09-17] MEDS: MIRTAZAPINE 15 MG TAB PEG SCH (21:41)
[2016-09-18] MEDS: MIDODRINE 5 MG TAB PO SCH ×3 (06:19→17:49)
[2016-09-18] MEDS: ALLOPURINOL 100 MG TAB PEG SCH (07:57)
[2016-09-18] MEDS: LANSOPRAZOLE SOLUTAB 30 MG TAB PEG SCH (07:57)
[2016-09-18 08:00] VITALS: BP 97/64; PULSE 89; RESP 18; TEMP 98.7; O2SAT 92
--- NOTE | 2016-09-18 09:37 | HHI.PR ---
Subjective Remarks Follow for dementia. Patient has no acute complaints, but RN shows me a wound around the suprapubic catheter site. The patient denies any pain in this area. Objective Vitals Vital Signs Date Time Temp Pulse Resp B/P Pulse Ox O2 Delivery O2 Flow Rate FiO2 09/18/16 08:00 98.7 89 18 97/64 92 09/17/16 20:00 96.7 76 19 104/70 95 I/O 09/17/16 09/17/16 09/17/16 09/18/16 09/18/16 09/18/16 07:00 15:00 23:00 07:00 15:00 23:00 Intake Total 200 ml 2640 ml 200 ml Output Total 575 ml 650 ml 500 ml 875 ml Balance -375 ml -650 ml 2140 ml -675 ml Tube Feeding 1440 ml 0 ml Tube Irrigant 200 ml 400 ml 200 ml Other 800 ml Output Urine Total 575 ml 650 ml 500 ml 875 ml # Bowel Movements 1 2 Objective Remarks GENERAL: Elderly disheveled male in no apparent distress. SKIN: There is a subcentimeter wound noted on the right side of the suprapubic catheter site. There is no purulent drainage or surrounding erythema. There appears to be a scab over the gauze. CARDIOVASCULAR: Regular rate and rhythm. RESPIRATORY: No accessory muscle use. CTAB. GASTROINTESTINAL: Abdomen is soft, non-tender, nondistended. NEURO: Awake and alert. Nods to questions, but does not speak aloud. PSYCHIATRIC: Normal mood and affect. Procedures None Urinary Catheter: Yes Assessment to: Continue Soto insert reason: Obstruction/Retention Date of Insertion: Sep 01, 2016 Vascular Central Line Catheter: No A/P Assessment and Plan Wound at suprapubic catheter site: appears uninfected. Likely attributed to shearing from tubing. -RN instructed to apply antibiotic ointment and Telfa to site and monitor area. Hematuria: Resolved. -Patient is not on anticoagulation. -Hemoglobin normal. -Creatinine is normal. -UA 4/5 with innumerable RBCs, but urine sample not grossly bloody. Urinary tract infection, recurrent: Urine culture positive for Proteus mirabilis and GBS on 01/20. Patient completed course of antibiotics. Abdominal pelvis CT 03/06 shows decompressed bladder with circumferential bladder wall thickening and intraluminal air possibly indicating cystitis, but the patient had been afebrile with normal WBC count. Urine culture 05/31 with Serratia marcescens, Pseudomonas, and Enterococcus faecalis. Patient was started on antibiotics. Repeat urine culture on 06/04 only reveals contaminants. Urine culture 08/07 with Enterococcus faecalis and Pseudomonas Aeruginosa similar to previous culture on 05/31. Patient remains afebrile. CBC with normal white blood cell count. Continue to change Soto monthly. 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 Monitor and treat only if symptomatic. Mild obstructive uropathy: Resolved. Appreciate urology recommendations. Suprapubic catheter to be changed monthly; last changed 09/01/16. Abdominal pelvis CT 03/06/16 shows resolution of right sided hydronephrosis. Upper GI bleeding with recurrent rectal bleeding: Resolved. Hemoglobin stable. GI reevaluated patient on 05/04. Presumed hemorrhoids, s/p Anusol HC for total of 2 weeks. Continue PPI. Protein calorie malnutrition: Improving Consulted dietitian who indicated that patient may be converted to bolus feeding Jevity 1.5 w/ bolus 1.5 cans(360ml) @ 0800 and 2000 and 1-can(240ml) @ 1100, 1400 and 1700. Free Water Flush 100ml before and after each bolus feeding. Ensure Enlive tid and chocolate pudding tid Prealbumin level 25. Patient desired to eat and speech therapy advised puree diet, thin liquids, but patient has not been eating. Ground Water Contractor suggested considering appetite stimulant. This was discussed with attending, but we do not believe this would be beneficial for patient and would add unnecessary risk to the patient. Will continue with tube feeds only. Dementia with inappropriate behavior, mood disorder improved Patient had inappropriate behavior which is resolved now. He has been very appropriate for a long time now. Patient has been hospitalized for similar events in 2015 Consulted psychiatry for further evaluation, who indicated that this is a frontal lobe dementia Risperdal 0.25 mg during the day, Risperdal 0.5 mg at night. Risperdal was discontinued per POA request. Continue Remeron Psychiatry was reconsulted and is ok with discontinuation of Risperdal. Seborrheic dermatitis: Flaky skin to the face and neck. Improved s/p one time dose of Ketoconazole 2% shampoo. S/p hydrocortisone cream for 2 weeks Chalazion: Nodule R upper eyelid. There is no evidence of preseptal cellulitis. -Warm compresses were applied but it was greater than 2 weeks without significant improvement. -Ophthalmology was consulted and evaluated patient on 03/26. S/p warm compresses and Tobradex 4 times a day OD x 2 weeks. Patient was intermittently compliant with eyedrops. -No worsening. Follow-up outpatient. Hypotension: Blood pressure labile. Continue Midodrine. Patient on max dose. Increase free water flushes as needed. Pre-renal azotemia: Resolved. BUN improved to 18 on 09/11/16. Continue free water flushes Monitor BMP periodically Stage I decubitus ulcer, sacral skin tear: Continue wound care. Frequent turning of patient. Candidal infection: buttocks affected with satellite lesions to the perineum. -S/p Nystatin and clotrimazole Weakness: Continue physical therapy Nursing staff to get patient up out of bed at least 3 times daily Palliative care evaluation According to palliative care notes family wishes aggressive management, they are expecting him to improve, go to a rehabilitation facility and then improve enough to go home. They are declining hospice. DVT prophylaxis: SCDs. Avoid chemical prophylaxis secondary to GI bleed. Discharge Planning 08/16: [place] [facility] considering for acceptance but son has to go to a conference there first. 08/26: CM continues to make calls to son for assistance to get patient placed as son needs to go to [place] [facility] to speak with them. Madeline Ortez September 18, 2016 09:37
[2016-09-18] MEDS: FREE WATER G-TUBE SCH (09:45)
[2016-09-18] MEDS: NEOMYCIN/POLYMYXIN/BACITRACIN OINT 15 GM TUBE TOPICAL SCH ×2 (13:59→21:00)
[2016-09-18 20:00] VITALS: BP 109/77; PULSE 60; RESP 20; TEMP 96.8; O2SAT 96
[2016-09-19] MEDS: MIRTAZAPINE 15 MG TAB PEG SCH ×2 (00:24→22:52)
[2016-09-19] MEDS: MIDODRINE 5 MG TAB PO SCH ×3 (07:35→18:21)
[2016-09-19] MEDS: ALLOPURINOL 100 MG TAB PEG SCH (08:22)
[2016-09-19] MEDS: LANSOPRAZOLE SOLUTAB 30 MG TAB PEG SCH (08:22)
[2016-09-19] MEDS: FREE WATER G-TUBE SCH (08:22)
[2016-09-19 08:53] VITALS: BP 150/90; PULSE 67; RESP 15; TEMP 96.5; O2SAT 97
[2016-09-19 09:24] VITALS: BP 135/80
[2016-09-19] MEDS: NEOMYCIN/POLYMYXIN/BACITRACIN OINT 15 GM TUBE TOPICAL SCH ×2 (09:57→22:52)
[2016-09-19 12:26] VITALS: BP 120/78; PULSE 80
--- NOTE | 2016-09-19 15:37 | HHI.PR ---
Subjective Remarks Follow-up for dementia. Nurse states Midodrine dose was held this afternoon because patient's blood pressure was actually elevated this morning. Patient denies any fevers or chills, chest pain or shortness of breath, or abdominal pain. Objective Vitals Vital Signs Date Time Temp Pulse Resp B/P Pulse Ox O2 Delivery O2 Flow Rate FiO2 09/19/16 12:26 80 120/78 09/19/16 09:24 135/80 09/19/16 08:53 96.5 67 15 150/90 97 09/18/16 20:00 96.8 60 20 109/77 96 I/O 09/18/16 09/18/16 09/18/16 09/19/16 09/19/16 09/19/16 07:00 15:00 23:00 07:00 15:00 23:00 Intake Total 200 ml 0 ml Output Total 875 ml 750 ml 200 ml 350 ml Balance -675 ml -750 ml -200 ml -350 ml Intake Oral 0 ml Tube Feeding 0 ml Tube Irrigant 200 ml Output Urine Total 875 ml 750 ml 200 ml 350 ml # Bowel Movements 2 0 1 Objective Remarks GENERAL: Elderly male in no apparent distress sitting in recliner in dayroom watching TV. CARDIOVASCULAR: Regular rate and rhythm. RESPIRATORY: No accessory muscle use. CTAB. GASTROINTESTINAL: Abdomen is soft, non-tender, nondistended. NEURO: Awake and alert. Nods to questions, but does not speak aloud. PSYCHIATRIC: Normal mood and affect. Procedures None Urinary Catheter: Yes Assessment to: Continue Soto insert reason: Obstruction/Retention Date of Insertion: Sep 01, 2016 Vascular Central Line Catheter: No A/P Problem List: (1) Decreased urine output ICD Code: R34 Status: Acute (2) Prerenal azotemia ICD Code: R79.89 Status: Acute (3) Hematuria ICD Code: R31.9 Status: Acute Assessment and Plan Wound at suprapubic catheter site: appears uninfected. Likely attributed to shearing from tubing. -RN instructed to apply antibiotic ointment and Telfa to site and monitor area. Hematuria: Resolved. -Patient is not on anticoagulation. -Hemoglobin normal. -Creatinine is normal. -UA 4/5 with innumerable RBCs, but urine sample not grossly bloody. Urinary tract infection, recurrent: Urine culture positive for Proteus mirabilis and GBS on 01/20. Patient completed course of antibiotics. Abdominal pelvis CT 03/06 shows decompressed bladder with circumferential bladder wall thickening and intraluminal air possibly indicating cystitis, but the patient had been afebrile with normal WBC count. Urine culture 05/31 with Serratia marcescens, Pseudomonas, and Enterococcus faecalis. Patient was started on antibiotics. Repeat urine culture on 06/04 only reveals contaminants. Urine culture 08/07 with Enterococcus faecalis and Pseudomonas Aeruginosa similar to previous culture on 05/31. Patient remains afebrile. CBC with normal white blood cell count. Continue to change Soto monthly. 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 Monitor and treat only if symptomatic. Mild obstructive uropathy: Resolved. Appreciate urology recommendations. Suprapubic catheter to be changed monthly; last changed 09/01/16. Abdominal pelvis CT 03/06/16 shows resolution of right sided hydronephrosis. Upper GI bleeding with recurrent rectal bleeding: Resolved. Hemoglobin stable. GI reevaluated patient on 05/04. Presumed hemorrhoids, s/p Anusol HC for total of 2 weeks. Continue PPI. Protein calorie malnutrition: Improving Consulted dietitian who indicated that patient may be converted to bolus feeding Jevity 1.5 w/ bolus 1.5 cans(360ml) @ 0800 and 2000 and 1-can(240ml) @ 1100, 1400 and 1700. Free Water Flush 100ml before and after each bolus feeding. Ensure Enlive tid and chocolate pudding tid Prealbumin level 25. Patient desired to eat and speech therapy advised puree diet, thin liquids, but patient has not been eating. Logistics Specialist suggested considering appetite stimulant. This was discussed with attending, but we do not believe this would be beneficial for patient and would add unnecessary risk to the patient. Will continue with tube feeds only. Dementia with inappropriate behavior, mood disorder improved Patient had inappropriate behavior which is resolved now. He has been very appropriate for a long time now. Patient has been hospitalized for similar events in 2015 Consulted psychiatry for further evaluation, who indicated that this is a frontal lobe dementia Risperdal 0.25 mg during the day, Risperdal 0.5 mg at night. Risperdal was discontinued per POA request. Continue Remeron Psychiatry was reconsulted and is ok with discontinuation of Risperdal. Seborrheic dermatitis: Flaky skin to the face and neck. Improved s/p one time dose of Ketoconazole 2% shampoo. S/p hydrocortisone cream for 2 weeks Chalazion: Nodule R upper eyelid. There is no evidence of preseptal cellulitis. -Warm compresses were applied but it was greater than 2 weeks without significant improvement. -Ophthalmology was consulted and evaluated patient on 03/26. S/p warm compresses and Tobradex 4 times a day OD x 2 weeks. Patient was intermittently compliant with eyedrops. -No worsening. Follow-up outpatient. Hypotension: HypERtensive this morning at ~0900 after 0730 Midodrine dose. Noon dose was held. BP normal at 120/78 at ~1230. Blood pressure labile. Continue Midodrine. Patient on max dose. Increase free water flushes as needed. Pre-renal azotemia: Resolved. BUN improved to 18 on 09/11/16. Continue free water flushes Monitor BMP periodically Stage I decubitus ulcer, sacral skin tear: Continue wound care. Frequent turning of patient. Candidal infection: buttocks affected with satellite lesions to the perineum. -S/p Nystatin and clotrimazole Weakness: Continue physical therapy Nursing staff to get patient up out of bed at least 3 times daily Palliative care evaluation According to palliative care notes family wishes aggressive management, they are expecting him to improve, go to a rehabilitation facility and then improve enough to go home. They are declining hospice. DVT prophylaxis: SCDs. Avoid chemical prophylaxis secondary to GI bleed. Discharge Planning 08/16: [place] [facility] considering for acceptance but son has to go to a conference there first. 08/26: continues to make calls to son for assistance to get patient placed as son needs to go to [place] [facility] to speak with them. Madeline Ortez September 19, 2016 15:37
[2016-09-19 18:08] VITALS: BP 106/74
[2016-09-19 20:00] VITALS: BP 105/75; PULSE 87; RESP 20; TEMP 97.7; O2SAT 96
[2016-09-20 05:47] VITALS: BP 100/65; PULSE 70
[2016-09-20] MEDS: MIDODRINE 5 MG TAB PO SCH ×3 (05:54→18:16)
[2016-09-20] MEDS: LANSOPRAZOLE SOLUTAB 30 MG TAB PEG SCH (07:59)
[2016-09-20] MEDS: ALLOPURINOL 100 MG TAB PEG SCH (07:59)
[2016-09-20] MEDS: NEOMYCIN/POLYMYXIN/BACITRACIN OINT 15 GM TUBE TOPICAL SCH ×2 (07:59→19:55)
[2016-09-20 08:00] VITALS: BP 120/80; PULSE 87; RESP 18; TEMP 95.7; O2SAT 94
--- NOTE | 2016-09-20 11:48 | HHI.PR ---
Subjective Remarks Follow-up for dementia. No acute complaints. RN states wound around suprapubic catheter site appears better. Objective Vitals Vital Signs Date Time Temp Pulse Resp B/P Pulse Ox O2 Delivery O2 Flow Rate FiO2 09/20/16 08:00 95.7 87 18 120/80 94 09/20/16 05:47 70 100/65 09/19/16 20:00 97.7 87 20 105/75 96 09/19/16 18:08 106/74 09/19/16 12:26 80 120/78 I/O 09/19/16 09/19/16 09/19/16 09/20/16 09/20/16 09/20/16 07:00 15:00 23:00 07:00 15:00 23:00 Intake Total 2440 ml 0 ml Output Total 350 ml 900 ml 350 ml Balance -350 ml 1540 ml -350 ml Intake Oral 0 ml 0 ml Tube Feeding 1440 ml Tube Irrigant 200 ml Other 800 ml Output Urine Total 350 ml 900 ml 350 ml # Bowel Movements 1 2 2 Objective Remarks GENERAL: Elderly male in no apparent distress. CARDIOVASCULAR: Regular rate and rhythm. RESPIRATORY: No accessory muscle use. CTAB. GASTROINTESTINAL: Normoactive bowel sounds. Abdomen is soft, non-tender, nondistended. NEURO: Awake and alert. Nods to questions, but does not speak aloud. PSYCHIATRIC: Normal mood and affect. Procedures None Urinary Catheter: No Date of Insertion: Sep 01, 2016 Vascular Central Line Catheter: No A/P Problem List: (1) Decreased urine output ICD Code: R34 Status: Acute (2) Prerenal azotemia ICD Code: R79.89 Status: Acute (3) Hematuria ICD Code: R31.9 Status: Acute Assessment and Plan Wound at suprapubic catheter site: Improved. Appears uninfected. Likely attributed to shearing from tubing. -RN instructed to apply antibiotic ointment and Telfa to site and monitor area. Hematuria: Resolved. -Patient is not on anticoagulation. -Hemoglobin normal. -Creatinine is normal. -UA 4/5 with innumerable RBCs, but urine sample not grossly bloody. Urinary tract infection, recurrent: Urine culture positive for Proteus mirabilis and GBS on 01/20. Patient completed course of antibiotics. Abdominal pelvis CT 03/06 shows decompressed bladder with circumferential bladder wall thickening and intraluminal air possibly indicating cystitis, but the patient had been afebrile with normal WBC count. Urine culture 05/31 with Serratia marcescens, Pseudomonas, and Enterococcus faecalis. Patient was started on antibiotics. Repeat urine culture on 06/04 only reveals contaminants. Urine culture 08/07 with Enterococcus faecalis and Pseudomonas Aeruginosa similar to previous culture on 05/31. Patient remains afebrile. CBC with normal white blood cell count. Continue to change Soto monthly. 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 Monitor and treat only if symptomatic. Mild obstructive uropathy: Resolved. Appreciate urology recommendations. Suprapubic catheter to be changed monthly; last changed 09/01/16. Abdominal pelvis CT 03/06/16 shows resolution of right sided hydronephrosis. Upper GI bleeding with recurrent rectal bleeding: Resolved. Hemoglobin stable. GI reevaluated patient on 05/04. Presumed hemorrhoids, s/p Anusol HC for total of 2 weeks. Continue PPI. Protein calorie malnutrition: Improving Consulted dietitian who indicated that patient may be converted to bolus feeding Jevity 1.5 w/ bolus 1.5 cans(360ml) @ 0800 and 2000 and 1-can(240ml) @ 1100, 1400 and 1700. Free Water Flush 100ml before and after each bolus feeding. Ensure Enlive tid and chocolate pudding tid Prealbumin level 25. Patient desired to eat and speech therapy advised puree diet, thin liquids, but patient has not been eating. Single Resource Boss suggested considering appetite stimulant. This was discussed with attending, but we do not believe this would be beneficial for patient and would add unnecessary risk to the patient. Will continue with tube feeds only. Dementia with inappropriate behavior, mood disorder improved Patient had inappropriate behavior which is resolved now. He has been very appropriate for a long time now. Patient has been hospitalized for similar events in 2015 Consulted psychiatry for further evaluation, who indicated that this is a frontal lobe dementia Risperdal 0.25 mg during the day, Risperdal 0.5 mg at night. Risperdal was discontinued per POA request. Continue Remeron Psychiatry was reconsulted and is ok with discontinuation of Risperdal. Seborrheic dermatitis: Flaky skin to the face and neck. Improved s/p one time dose of Ketoconazole 2% shampoo. S/p hydrocortisone cream for 2 weeks Chalazion: Nodule R upper eyelid. There is no evidence of preseptal cellulitis. -Warm compresses were applied but it was greater than 2 weeks without significant improvement. -Ophthalmology was consulted and evaluated patient on 03/26. S/p warm compresses and Tobradex 4 times a day OD x 2 weeks. Patient was intermittently compliant with eyedrops. -No worsening. Follow-up outpatient. Hypotension: Improved this morning. Blood pressure labile. Continue Midodrine. Patient on max dose. Increase free water flushes as needed. Pre-renal azotemia: Resolved. BUN improved to 18 on 09/11/16. Continue free water flushes Monitor BMP periodically Stage I decubitus ulcer, sacral skin tear: Continue wound care. Frequent turning of patient. Candidal infection: buttocks affected with satellite lesions to the perineum. -S/p Nystatin and clotrimazole Weakness: Continue physical therapy Nursing staff to get patient up out of bed at least 3 times daily Palliative care evaluation According to palliative care notes family wishes aggressive management, they are expecting him to improve, go to a rehabilitation facility and then improve enough to go home. They are declining hospice. DVT prophylaxis: SCDs. Avoid chemical prophylaxis secondary to GI bleed. Discharge Planning 08/16: [place] [facility] considering for acceptance but son has to go to a conference there first. 08/26: continues to make calls to son for assistance to get patient placed as son needs to go to [place] [facility] to speak with them. Madeline Ortez September 20, 2016 11:48
[2016-09-20] MEDS: FREE WATER G-TUBE SCH (12:47)
[2016-09-20] MEDS: MIRTAZAPINE 15 MG TAB PEG SCH (19:55)
[2016-09-20 20:00] VITALS: BP 106/63; PULSE 71; RESP 16; TEMP 97.6; O2SAT 94
[2016-09-21] MEDS: MIDODRINE 5 MG TAB PO SCH ×3 (06:19→17:02)
[2016-09-21 08:00] VITALS: BP 108/62; PULSE 64; RESP 18; TEMP 97.6; O2SAT 96
[2016-09-21] MEDS: ALLOPURINOL 100 MG TAB PEG SCH (08:25)
[2016-09-21] MEDS: LANSOPRAZOLE SOLUTAB 30 MG TAB PEG SCH (08:25)
[2016-09-21] MEDS: NEOMYCIN/POLYMYXIN/BACITRACIN OINT 15 GM TUBE TOPICAL SCH ×2 (08:25→19:51)
[2016-09-21] MEDS: FREE WATER G-TUBE SCH (08:26)
--- NOTE | 2016-09-21 12:03 | HHI.PR ---
Subjective Remarks Follow-up for dementia. No acute complaints. Objective Vitals Vital Signs Date Time Temp Pulse Resp B/P Pulse Ox O2 Delivery O2 Flow Rate FiO2 09/21/16 08:00 97.6 64 18 108/62 96 09/20/16 20:00 97.6 71 16 106/63 94 I/O 09/20/16 09/20/16 09/20/16 09/21/16 09/21/16 09/21/16 07:00 15:00 23:00 07:00 15:00 23:00 Intake Total 0 ml 0 ml 560 ml 120 ml Output Total 350 ml 450 ml 400 ml Balance -350 ml -450 ml 560 ml -280 ml Intake Oral 0 ml 0 ml Tube Feeding 360 ml Other 200 ml 120 ml Output Urine Total 350 ml 450 ml 400 ml # Bowel Movements 2 2 2 1 Objective Remarks GENERAL: Elderly male in no apparent distress. CARDIOVASCULAR: Regular rate and rhythm. RESPIRATORY: No accessory muscle use. CTAB. GASTROINTESTINAL: Normoactive bowel sounds. Abdomen is soft, non-tender, nondistended. NEURO: Awake and alert. Nods to questions, but does not speak aloud. PSYCHIATRIC: Normal mood and affect. Procedures None Urinary Catheter: Yes Assessment to: Continue Soto insert reason: Obstruction/Retention Date of Insertion: Sep 01, 2016 Vascular Central Line Catheter: No A/P Problem List: (1) Decreased urine output ICD Code: R34 Status: Acute (2) Prerenal azotemia ICD Code: R79.89 Status: Acute (3) Hematuria ICD Code: R31.9 Status: Acute Assessment and Plan Wound at suprapubic catheter site: Improved. Appears uninfected. Likely attributed to shearing from tubing. -RN instructed to apply antibiotic ointment and Telfa to site and monitor area. Hematuria: Resolved. -Patient is not on anticoagulation. -Hemoglobin normal. -Creatinine is normal. -UA 4/5 with innumerable RBCs, but urine sample not grossly bloody. Urinary tract infection, recurrent: Urine culture positive for Proteus mirabilis and GBS on 01/20. Patient completed course of antibiotics. Abdominal pelvis CT 03/06 shows decompressed bladder with circumferential bladder wall thickening and intraluminal air possibly indicating cystitis, but the patient had been afebrile with normal WBC count. Urine culture 05/31 with Serratia marcescens, Pseudomonas, and Enterococcus faecalis. Patient was started on antibiotics. Repeat urine culture on 06/04 only reveals contaminants. Urine culture 08/07 with Enterococcus faecalis and Pseudomonas Aeruginosa similar to previous culture on 05/31. Patient remains afebrile. CBC with normal white blood cell count. Continue to change Soto monthly. 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 Monitor and treat only if symptomatic. Mild obstructive uropathy: Resolved. Appreciate urology recommendations. Suprapubic catheter to be changed monthly; last changed 09/01/16. Abdominal pelvis CT 03/06/16 shows resolution of right sided hydronephrosis. Upper GI bleeding with recurrent rectal bleeding: Resolved. Hemoglobin stable. GI reevaluated patient on 05/04. Presumed hemorrhoids, s/p Anusol HC for total of 2 weeks. Continue PPI. Protein calorie malnutrition: Improving Consulted dietitian who indicated that patient may be converted to bolus feeding Jevity 1.5 w/ bolus 1.5 cans(360ml) @ 0800 and 2000 and 1-can(240ml) @ 1100, 1400 and 1700. Free Water Flush 100ml before and after each bolus feeding. Ensure Enlive tid and chocolate pudding tid Prealbumin level 25. Patient desired to eat and speech therapy advised puree diet, thin liquids, but patient has not been eating. Associate Director Financial Aid suggested considering appetite stimulant. This was discussed with attending, but we do not believe this would be beneficial for patient and would add unnecessary risk to the patient. Will continue with tube feeds only. Dementia with inappropriate behavior, mood disorder improved Patient had inappropriate behavior which is resolved now. He has been very appropriate for a long time now. Patient has been hospitalized for similar events in 2015 Consulted psychiatry for further evaluation, who indicated that this is a frontal lobe dementia Risperdal 0.25 mg during the day, Risperdal 0.5 mg at night. Risperdal was discontinued per POA request. Continue Remeron Psychiatry was reconsulted and is ok with discontinuation of Risperdal. Seborrheic dermatitis: Flaky skin to the face and neck. Improved s/p one time dose of Ketoconazole 2% shampoo. S/p hydrocortisone cream for 2 weeks Chalazion: Nodule R upper eyelid. There is no evidence of preseptal cellulitis. -Warm compresses were applied but it was greater than 2 weeks without significant improvement. -Ophthalmology was consulted and evaluated patient on 03/26. S/p warm compresses and Tobradex 4 times a day OD x 2 weeks. Patient was intermittently compliant with eyedrops. -No worsening. Follow-up outpatient. Hypotension: Blood pressure labile. Continue Midodrine. Patient on max dose. Increase free water flushes as needed. Pre-renal azotemia: Resolved. BUN improved to 18 on 09/11/16. Continue free water flushes Monitor BMP periodically Stage I decubitus ulcer, sacral skin tear: Continue wound care. Frequent turning of patient. Candidal infection: buttocks affected with satellite lesions to the perineum. -S/p Nystatin and clotrimazole Weakness: Continue physical therapy Nursing staff to get patient up out of bed at least 3 times daily Palliative care evaluation According to palliative care notes family wishes aggressive management, they are expecting him to improve, go to a rehabilitation facility and then improve enough to go home. They are declining hospice. DVT prophylaxis: SCDs. Avoid chemical prophylaxis secondary to GI bleed. Discharge Planning 08/16: [place] [facility] considering for acceptance but son has to go to a conference there first. 08/26: continues to make calls to son for assistance to get patient placed as son needs to go to [place] [facility] to speak with them. Madeline Ortez September 21, 2016 12:03
[2016-09-21] MEDS: MIRTAZAPINE 15 MG TAB PEG SCH (19:48)
[2016-09-21 20:44] VITALS: BP 112/68; PULSE 62; RESP 12; TEMP 97.8; O2SAT 93
[2016-09-22] MEDS: MIDODRINE 5 MG TAB PO SCH ×3 (05:07→16:46)
[2016-09-22 08:00] VITALS: BP 109/63; PULSE 60; RESP 17; TEMP 97.2; O2SAT 95
--- NOTE | 2016-09-22 09:26 | HHI.PR ---
Subjective Remarks Follow up for dementia. No acute complaints. Objective Vitals Vital Signs Date Time Temp Pulse Resp B/P Pulse Ox O2 Delivery O2 Flow Rate FiO2 09/21/16 20:44 97.8 62 12 112/68 93 I/O 09/21/16 09/21/16 09/21/16 09/22/16 09/22/16 09/22/16 06:59 14:59 22:59 06:59 14:59 22:59 Intake Total 120 ml 1090 ml 900 ml 200 ml Output Total 400 ml 780 ml 250 ml Balance -280 ml 1090 ml 120 ml -50 ml Intake Oral 240 ml Tube Feeding 600 ml 600 ml Tube Irrigant 250 ml 100 ml Other 120 ml 200 ml 200 ml Output Urine Total 400 ml 780 ml 250 ml # Bowel Movements 1 1 1 Objective Remarks GENERAL: Elderly male in no apparent distress. SKIN: Significant flaking skin to the face. Mild erythema primarily over the chin. CARDIOVASCULAR: Regular rate and rhythm. RESPIRATORY: No accessory muscle use. CTAB. GASTROINTESTINAL: Normoactive bowel sounds. Abdomen is soft, non-tender, nondistended. NEURO: Awake and alert. Nods to questions, but does not speak aloud. PSYCHIATRIC: Normal mood and affect. Procedures None Urinary Catheter: Yes Assessment to: Continue Soto insert reason: Obstruction/Retention Date of Insertion: Sep 01, 2016 Vascular Central Line Catheter: No A/P Problem List: (1) Decreased urine output ICD Code: R34 Status: Acute (2) Prerenal azotemia ICD Code: R79.89 Status: Acute (3) Hematuria ICD Code: R31.9 Status: Acute Assessment and Plan Wound at suprapubic catheter site: Improved. Appears uninfected. Likely attributed to shearing from tubing. -RN instructed to apply antibiotic ointment and Telfa to site and monitor area. Hematuria: Resolved. -Patient is not on anticoagulation. -Hemoglobin normal. -Creatinine is normal. -UA 4/5 with innumerable RBCs, but urine sample not grossly bloody. Urinary tract infection, recurrent: Urine culture positive for Proteus mirabilis and GBS on 01/20. Patient completed course of antibiotics. Abdominal pelvis CT 03/06 shows decompressed bladder with circumferential bladder wall thickening and intraluminal air possibly indicating cystitis, but the patient had been afebrile with normal WBC count. Urine culture 05/31 with Serratia marcescens, Pseudomonas, and Enterococcus faecalis. Patient was started on antibiotics. Repeat urine culture on 06/04 only reveals contaminants. Urine culture 08/07 with Enterococcus faecalis and Pseudomonas Aeruginosa similar to previous culture on 05/31. Patient remains afebrile. CBC with normal white blood cell count. Continue to change Soto monthly. 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 Monitor and treat only if symptomatic. Mild obstructive uropathy: Resolved. Appreciate urology recommendations. Suprapubic catheter to be changed monthly; last changed 09/01/16. Abdominal pelvis CT 03/06/16 shows resolution of right sided hydronephrosis. Upper GI bleeding with recurrent rectal bleeding: Resolved. Hemoglobin stable. GI reevaluated patient on 05/04. Presumed hemorrhoids, s/p Anusol HC for total of 2 weeks. Continue PPI. Protein calorie malnutrition: Improving Consulted dietitian who indicated that patient may be converted to bolus feeding Jevity 1.5 w/ bolus 1.5 cans(360ml) @ 0800 and 2000 and 1-can(240ml) @ 1100, 1400 and 1700. Free Water Flush 100ml before and after each bolus feeding. Ensure Enlive tid and chocolate pudding tid Prealbumin level 25. Patient desired to eat and speech therapy advised puree diet, thin liquids, but patient has not been eating. Paper Bundler suggested considering appetite stimulant. This was discussed with attending, but we do not believe this would be beneficial for patient and would add unnecessary risk to the patient. Will continue with tube feeds only. Dementia with inappropriate behavior, mood disorder improved Patient had inappropriate behavior which is resolved now. He has been very appropriate for a long time now. Patient has been hospitalized for similar events in 2015 Consulted psychiatry for further evaluation, who indicated that this is a frontal lobe dementia Risperdal 0.25 mg during the day, Risperdal 0.5 mg at night. Risperdal was discontinued per POA request. Continue Remeron Psychiatry was reconsulted and is ok with discontinuation of Risperdal. Seborrheic dermatitis: Worse. Increased flaky skin to the face. Improved s/p one time dose of Ketoconazole 2% shampoo. S/p hydrocortisone cream for 2 weeks Repeat ketoconazole shampoo treatment. Chalazion: Nodule R upper eyelid. There is no evidence of preseptal cellulitis. -Warm compresses were applied but it was greater than 2 weeks without significant improvement. -Ophthalmology was consulted and evaluated patient on 03/26. S/p warm compresses and Tobradex 4 times a day OD x 2 weeks. Patient was intermittently compliant with eyedrops. -No worsening. Follow-up outpatient. Hypotension: Blood pressure labile. Continue Midodrine. Patient on max dose. Increase free water flushes as needed. Pre-renal azotemia: Resolved. BUN improved to 18 on 09/11/16. Continue free water flushes Monitor BMP periodically Stage I decubitus ulcer, sacral skin tear: Continue wound care. Frequent turning of patient. Candidal infection: buttocks affected with satellite lesions to the perineum. -S/p Nystatin and clotrimazole Weakness: Continue physical therapy Nursing staff to get patient up out of bed at least 3 times daily Palliative care evaluation According to palliative care notes family wishes aggressive management, they are expecting him to improve, go to a rehabilitation facility and then improve enough to go home. They are declining hospice. DVT prophylaxis: SCDs. Avoid chemical prophylaxis secondary to GI bleed. Discharge Planning 08/16: [place] [facility] considering for acceptance but son has to go to a conference there first. 08/26: continues to make calls to son for assistance to get patient placed as son needs to go to [place] [facility] to speak with them. Madeline Ortez September 22, 2016 09:26
[2016-09-22] MEDS: LANSOPRAZOLE SOLUTAB 30 MG TAB PEG SCH (12:13)
[2016-09-22] MEDS: FREE WATER G-TUBE SCH (12:13)
[2016-09-22] MEDS: ALLOPURINOL 100 MG TAB PEG SCH (12:14)
[2016-09-22] MEDS: NEOMYCIN/POLYMYXIN/BACITRACIN OINT 15 GM TUBE TOPICAL SCH ×2 (12:14→20:03)
[2016-09-22 20:00] VITALS: BP 111/65; PULSE 61; RESP 19; TEMP 97.4; O2SAT 96
[2016-09-22] MEDS: MIRTAZAPINE 15 MG TAB PEG SCH (20:02)
[2016-09-23] MEDS: MIDODRINE 5 MG TAB PO SCH ×3 (05:35→16:56)
[2016-09-23] MEDS: ALLOPURINOL 100 MG TAB PEG SCH (07:46)
[2016-09-23] MEDS: LANSOPRAZOLE SOLUTAB 30 MG TAB PEG SCH (07:46)
[2016-09-23] MEDS: NEOMYCIN/POLYMYXIN/BACITRACIN OINT 15 GM TUBE TOPICAL SCH ×2 (07:47→22:00)
[2016-09-23 08:00] VITALS: BP 109/73; PULSE 65; RESP 18; TEMP 97.7; O2SAT 96
--- NOTE | 2016-09-23 09:59 | HHI.PR ---
Subjective Remarks Follow-up for dementia. No acute complaints. Objective Vitals Vital Signs Date Time Temp Pulse Resp B/P Pulse Ox O2 Delivery O2 Flow Rate FiO2 09/23/16 08:00 97.7 65 18 109/73 96 09/22/16 20:00 97.4 61 19 111/65 96 I/O 09/22/16 09/22/16 09/22/16 09/23/16 09/23/16 09/23/16 06:59 14:59 22:59 06:59 14:59 22:59 Intake Total 200 ml 560 ml 200 ml Output Total 250 ml 300 ml 675 ml 750 ml Balance -50 ml -300 ml -115 ml -550 ml Tube Feeding 360 ml Other 200 ml 200 ml 200 ml Output Urine Total 250 ml 300 ml 675 ml 750 ml # Bowel Movements 1 2 1 Objective Remarks GENERAL: Elderly disheveled appearing male in no apparent distress. SKIN: Erythema and significant flaking skin to the face and neck. CARDIOVASCULAR: Regular rate and rhythm. RESPIRATORY: No accessory muscle use. CTAB. GASTROINTESTINAL: Normoactive bowel sounds. Abdomen is soft, non-tender, nondistended. NEURO: Awake and alert. Nods to questions, but does not speak aloud. PSYCHIATRIC: Normal mood and affect. Procedures None Urinary Catheter: Yes Assessment to: Continue Soto insert reason: Obstruction/Retention Date of Insertion: Sep 01, 2016 Vascular Central Line Catheter: No A/P Problem List: (1) Decreased urine output ICD Code: R34 Status: Acute (2) Prerenal azotemia ICD Code: R79.89 Status: Acute (3) Hematuria ICD Code: R31.9 Status: Acute Assessment and Plan Wound at suprapubic catheter site: Improved. Appears uninfected. Likely attributed to shearing from tubing. -RN instructed to apply antibiotic ointment and Telfa to site and monitor area. Hematuria: Resolved. -Patient is not on anticoagulation. -Hemoglobin normal. -Creatinine is normal. -UA 4/5 with innumerable RBCs, but urine sample not grossly bloody. Urinary tract infection, recurrent: Urine culture positive for Proteus mirabilis and GBS on 01/20. Patient completed course of antibiotics. Abdominal pelvis CT 03/06 shows decompressed bladder with circumferential bladder wall thickening and intraluminal air possibly indicating cystitis, but the patient had been afebrile with normal WBC count. Urine culture 05/31 with Serratia marcescens, Pseudomonas, and Enterococcus faecalis. Patient was started on antibiotics. Repeat urine culture on 06/04 only reveals contaminants. Urine culture 08/07 with Enterococcus faecalis and Pseudomonas Aeruginosa similar to previous culture on 05/31. Patient remains afebrile. CBC with normal white blood cell count. Continue to change Soto monthly. 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 Monitor and treat only if symptomatic. Mild obstructive uropathy: Resolved. Appreciate urology recommendations. Suprapubic catheter to be changed monthly; last changed 09/01/16. Abdominal pelvis CT 03/06/16 shows resolution of right sided hydronephrosis. Upper GI bleeding with recurrent rectal bleeding: Resolved. Hemoglobin stable. GI reevaluated patient on 05/04. Presumed hemorrhoids, s/p Anusol HC for total of 2 weeks. Continue PPI. Protein calorie malnutrition: Improving Consulted dietitian who indicated that patient may be converted to bolus feeding Jevity 1.5 w/ bolus 1.5 cans(360ml) @ 0800 and 2000 and 1-can(240ml) @ 1100, 1400 and 1700. Free Water Flush 100ml before and after each bolus feeding. Ensure Enlive tid and chocolate pudding tid Prealbumin level 25. Patient desired to eat and speech therapy advised puree diet, thin liquids, but patient has not been eating. Surgical Garment Assembler suggested considering appetite stimulant. This was discussed with attending, but we do not believe this would be beneficial for patient and would add unnecessary risk to the patient. Will continue with tube feeds only. Dementia with inappropriate behavior, mood disorder improved Patient had inappropriate behavior which is resolved now. He has been very appropriate for a long time now. Patient has been hospitalized for similar events in 2015 Consulted psychiatry for further evaluation, who indicated that this is a frontal lobe dementia Risperdal 0.25 mg during the day, Risperdal 0.5 mg at night. Risperdal was discontinued per POA request. Continue [facility] Psychiatry was reconsulted and is ok with discontinuation of Risperdal. Seborrheic dermatitis: Worse. Improved s/p one time dose of Ketoconazole 2% shampoo on 04/19/16. S/p hydrocortisone lotion for 2 weeks in August. 09/22: Increased dandruff to the face. Repeat ketoconazole shampoo with no improvement. 09/23: Face appears with more erythema and dandruff than yesterday. Will order hydrocortisone 1% cream bid for 2 weeks. Chalazion: Nodule R upper eyelid. There is no evidence of preseptal cellulitis. -Warm compresses were applied but it was greater than 2 weeks without significant improvement. -Ophthalmology was consulted and evaluated patient on 03/26. S/p warm compresses and Tobradex 4 times a day OD x 2 weeks. Patient was intermittently compliant with eyedrops. -No worsening. Follow-up outpatient. Hypotension: Blood pressure labile. Continue Midodrine. Patient on max dose. Increase free water flushes as needed. Pre-renal azotemia: Resolved. BUN improved to 18 on 09/11/16. Continue free water flushes Monitor BMP periodically Stage I decubitus ulcer, sacral skin tear: Continue wound care. Frequent turning of patient. Candidal infection: buttocks affected with satellite lesions to the perineum. -S/p Nystatin and clotrimazole Weakness: Continue physical therapy Nursing staff to get patient up out of bed at least 3 times daily Palliative care evaluation According to palliative care notes family wishes aggressive management, they are expecting him to improve, go to a rehabilitation facility and then improve enough to go home. They are declining hospice. DVT prophylaxis: SCDs. Avoid chemical prophylaxis secondary to GI bleed. Discharge Planning 08/16: [place] [facility] considering for acceptance but son has to go to a conference there first. 08/26: continues to make calls to son for assistance to get patient placed as son needs to go to [place] [facility] to speak with them. Madeline Ortez September 23, 2016 09:59
[2016-09-23] MEDS: FREE WATER G-TUBE SCH (10:18)
[2016-09-23 20:00] VITALS: BP 111/72; PULSE 66; RESP 18; TEMP 97.1; O2SAT 95
[2016-09-23] MEDS: MIRTAZAPINE 15 MG TAB PEG SCH (21:59)
[2016-09-23] MEDS: HYDROCORTISONE 1% CREAM 30 GM TOPICAL SCH (21:59)
[2016-09-24 08:00] VITALS: BP 111/68; PULSE 72; RESP 18; TEMP 98.2; O2SAT 96
[2016-09-24] MEDS: HYDROCORTISONE 1% CREAM 30 GM TOPICAL SCH ×2 (09:00→21:40)
[2016-09-24] MEDS: NEOMYCIN/POLYMYXIN/BACITRACIN OINT 15 GM TUBE TOPICAL SCH ×2 (09:00→21:40)
[2016-09-24] MEDS: FREE WATER G-TUBE SCH (09:00)
[2016-09-24] MEDS: LANSOPRAZOLE SOLUTAB 30 MG TAB PEG SCH (09:03)
[2016-09-24] MEDS: ALLOPURINOL 100 MG TAB PEG SCH (09:03)
[2016-09-24] MEDS: MIDODRINE 5 MG TAB PO SCH ×3 (09:03→18:30)
--- NOTE | 2016-09-24 09:10 | HHI.PR ---
Subjective Remarks Patient seen in the day for generalized weakness, dementia. Patient denies any new complaints. Nurses that does not indicate any acute issues. Objective Vitals Vital Signs Date Time Temp Pulse Resp B/P Pulse Ox O2 Delivery O2 Flow Rate FiO2 09/23/16 20:00 97.1 66 18 111/72 95 I/O 09/23/16 09/23/16 09/23/16 09/24/16 09/24/16 09/24/16 07:00 15:00 23:00 07:00 15:00 23:00 Intake Total 200 ml 0 ml 440 ml Output Total 750 ml 1300 ml 650 ml Balance -550 ml -1300 ml 440 ml -650 ml Intake Oral 0 ml Tube Feeding 360 ml Other 200 ml 80 ml Output Urine Total 750 ml 1300 ml 650 ml # Bowel Movements 1 4 1 Objective Remarks GENERAL: Well-developed, well-nourished, in no acute distress. Patient awake and alert HEENT: Head is normocephalic without any lesions or masses noted. Facial features are symmetric. Eyes: Extraocular muscles are intact. Conjunctivae were clear. Correlate base scaling noted on chin and nasolabial folds NECK: Trachea midline no deviation. CARDIAC: Regular rhythm, regular rate. S1/S2 are heard. No murmurs gallops or rubs. LUNGS: Clear to auscultation bilaterally. No wheeze, rhonchi or rales. No use of accessory muscles on inspiration or expiration. ABDOMEN: Soft, nontender. Nondistended. Bowel sounds heard in all 4 quadrants. No organomegaly or masses. Negative rebound, negative guarding, suprapubic catheter in place, PEG tube noted EXTREMITIES: No edema, pulses are equal bilaterally. No cyanosis or clubbing NEUROLOGY: Mood and affect appear appropriate. Cranial nerves II through XII grossly intact. Moving all extremities SKIN: Patient's back has skin breakdown on his back and sacral area. Procedures None Urinary Catheter: Yes (suprapubic catheter) Assessment to: Continue Soto insert reason: Obstruction/Retention Date of Insertion: Sep 01, 2016 Vascular Central Line Catheter: No A/P Assessment and Plan Weakness: Continue physical therapy Nursing staff to get patient up out of bed at least 3 times daily Dementia with inappropriate behavior, mood disorder improved Patient has been hospitalized for similar events in 2015 Consulted psychiatry for further evaluation, who indicated that this is a frontal lobe dementia Risperdal discontinued at family's request Continue Remeron Parkinson's disease: Patient has dementia and resting tremor. Chronic, stable. GI bleed with presenting of Upper GI bleed, patient with intermittent rectal bleeding: Resolved Hemoglobin continues to remain stable GI was following and reevaluated on 05/04/16 Presumed hemorrhoids, status post Anusol HC for 2 weeks Continue PPI. Protein calorie malnutrition: Improving Consulted dietitian who indicated that patient may be converted to bolus feeding Jevity 1.5, 6 cans per day. 1.5 cans that 0800 and 2000, 1 can at 1100, 1400, 1700 Prealbumin level 24 Ensure Enlive 3 times a day since pudding 3 times a day Excoriation noted around PEG tube, improving. Applying antibiotic ointment and Tefla to site Hypotension with episodes of hypertension: Stable Blood pressure labile. Continue monitor blood pressure Continue Midodrine. Mild obstructive uropathy: Resolved. Appreciate urology recommendations. Suprapubic catheter in place, improved after replacement of Soto Abdominal pelvis CT 03/06/16 shows resolution of right sided hydronephrosis. 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 Stage I decubitus ulcer, sacral skin tear: Continue wound care. Seborrhea dermatitis Hydrocortisone cream for 2 weeks Palliative care evaluation According to palliative care notes. Family wishes aggressive management, they are expecting him to improve, go to a rehabilitation facility and then improve enough to go home. They are deferring hospice. DVT prophylaxis: SCDs. Avoid chemical prophylaxis secondary to GI bleed. Records reviewed, no change in clinical status or treatment plan Discharge Planning Discharge planning per case management. Case management still trying to reach out to son to help with nursing facilities for acceptance. Jaguar Walker September 24, 2016 09:10
[2016-09-24 20:00] VITALS: BP 101/75; PULSE 97; RESP 24; TEMP 95.8; O2SAT 95
[2016-09-24] MEDS: MIRTAZAPINE 15 MG TAB PEG SCH (21:40)
[2016-09-25] MEDS: MIDODRINE 5 MG TAB PO SCH ×3 (06:03→17:36)
[2016-09-25] MEDS: LANSOPRAZOLE SOLUTAB 30 MG TAB PEG SCH (08:32)
[2016-09-25] MEDS: FREE WATER G-TUBE SCH (08:32)
[2016-09-25] MEDS: ALLOPURINOL 100 MG TAB PEG SCH (08:32)
[2016-09-25] MEDS: HYDROCORTISONE 1% CREAM 30 GM TOPICAL SCH ×2 (08:33→21:42)
[2016-09-25] MEDS: NEOMYCIN/POLYMYXIN/BACITRACIN OINT 15 GM TUBE TOPICAL SCH ×2 (08:33→21:42)
[2016-09-25 08:41] VITALS: BP 111/69; PULSE 65; RESP 18; TEMP 97.1; O2SAT 95
--- NOTE | 2016-09-25 09:08 | HHI.PR ---
Subjective Remarks Patient seen and examined today for follow-up on dementia, weakness. Patient was evaluated with nurse at bedside. Patient denies any new complaints. No change in clinical status. Objective Vitals Vital Signs Date Time Temp Pulse Resp B/P Pulse Ox O2 Delivery O2 Flow Rate FiO2 09/25/16 08:41 97.1 65 18 111/69 95 09/24/16 20:00 95.8 97 24 101/75 95 I/O 09/24/16 09/24/16 09/24/16 09/25/16 09/25/16 09/25/16 07:00 15:00 23:00 07:00 15:00 23:00 Intake Total 0 ml 0 ml Output Total 650 ml 650 ml 250 ml 200 ml Balance -650 ml -650 ml -250 ml -200 ml Intake Oral 0 ml 0 ml Output Urine Total 650 ml 650 ml 250 ml 200 ml # Bowel Movements 1 2 0 0 Objective Remarks GENERAL: Well-developed, well-nourished, in no acute distress. Patient awake and alert HEENT: Head is normocephalic without any lesions or masses noted. Facial features are symmetric. Eyes: Extraocular muscles are intact. Conjunctivae were clear. Correlate base scaling noted on chin and nasolabial folds NECK: Trachea midline no deviation. CARDIAC: Regular rhythm, regular rate. S1/S2 are heard. No murmurs gallops or rubs. LUNGS: Clear to auscultation bilaterally. No wheeze, rhonchi or rales. No use of accessory muscles on inspiration or expiration. ABDOMEN: Soft, nontender. Nondistended. Bowel sounds heard in all 4 quadrants. No organomegaly or masses. Negative rebound, negative guarding, suprapubic catheter in place, PEG tube noted EXTREMITIES: No edema, pulses are equal bilaterally. No cyanosis or clubbing NEUROLOGY: Mood and affect appear appropriate. Cranial nerves II through XII grossly intact. Moving all extremities SKIN: Patient's back has skin breakdown on his back and sacral area. Procedures None Urinary Catheter: Yes (suprapubic catheter) Assessment to: Continue Soto insert reason: Obstruction/Retention Date of Insertion: Sep 01, 2016 Vascular Central Line Catheter: No A/P Assessment and Plan Weakness: Continue physical therapy Nursing staff to get patient up out of bed at least 3 times daily Dementia with inappropriate behavior, mood disorder improved Patient has been hospitalized for similar events in 2015 Consulted psychiatry for further evaluation, who indicated that this is a frontal lobe dementia Risperdal discontinued at family's request Continue Remeron Parkinson's disease: Patient has dementia and resting tremor. Chronic, stable. GI bleed with presenting of Upper GI bleed, patient with intermittent rectal bleeding: Resolved Hemoglobin continues to remain stable GI was following and reevaluated on 05/04/16 Presumed hemorrhoids, status post Anusol HC for 2 weeks Continue PPI. Protein calorie malnutrition: Improving Consulted dietitian who indicated that patient may be converted to bolus feeding Jevity 1.5, 6 cans per day. 1.5 cans that 0800 and 2000, 1 can at 1100, 1400, 1700 Prealbumin level 24 Ensure Enlive 3 times a day since pudding 3 times a day Excoriation noted around PEG tube, improving. Applying antibiotic ointment and Tefla to site Hypotension with episodes of hypertension: Stable Blood pressure labile. Continue monitor blood pressure Continue Midodrine. Mild obstructive uropathy: Resolved. Appreciate urology recommendations. Suprapubic catheter in place, improved after replacement of Soto Abdominal pelvis CT 03/06/16 shows resolution of right sided hydronephrosis. 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 Stage I decubitus ulcer, sacral skin tear: Continue wound care. Seborrhea dermatitis Hydrocortisone cream for 2 weeks Palliative care evaluation According to palliative care notes. Family wishes aggressive management, they are expecting him to improve, go to a rehabilitation facility and then improve enough to go home. They are deferring hospice. DVT prophylaxis: SCDs. Avoid chemical prophylaxis secondary to GI bleed. Records reviewed, no change in clinical status or treatment plan Discharge Planning Discharge planning per case management. Case management still trying to reach out to son to help with nursing facilities for acceptance. Jaguar Walker September 25, 2016 09:08
[2016-09-25 20:00] VITALS: BP 98/62; PULSE 68; RESP 22; TEMP 97.5; O2SAT 94
[2016-09-25] MEDS: MIRTAZAPINE 15 MG TAB PEG SCH (21:41)
[2016-09-26] MEDS: MIDODRINE 5 MG TAB PO SCH ×3 (06:39→17:03)
[2016-09-26 08:00] VITALS: BP 92/65; PULSE 70; RESP 19; TEMP 96.8; O2SAT 96
[2016-09-26] MEDS: LANSOPRAZOLE SOLUTAB 30 MG TAB PEG SCH (08:23)
[2016-09-26] MEDS: FREE WATER G-TUBE SCH (08:23)
[2016-09-26] MEDS: ALLOPURINOL 100 MG TAB PEG SCH (08:23)
[2016-09-26] MEDS: NEOMYCIN/POLYMYXIN/BACITRACIN OINT 15 GM TUBE TOPICAL SCH ×2 (08:24→21:41)
[2016-09-26] MEDS: HYDROCORTISONE 1% CREAM 30 GM TOPICAL SCH ×2 (08:24→21:41)
--- NOTE | 2016-09-26 11:15 | HHI.PR ---
Subjective Remarks Patient seen and examined today for follow-up on dementia, weakness. Patient indicates that he is not doing well today, however when asked significantly what is wrong he shrugged her shoulders she doesn't know. Patient has not been getting out of bed with nursing staff for physical therapy. Objective Vitals Vital Signs Date Time Temp Pulse Resp B/P Pulse Ox O2 Delivery O2 Flow Rate FiO2 09/25/16 20:00 97.5 68 22 98/62 94 I/O 09/25/16 09/25/16 09/25/16 09/26/16 09/26/16 09/26/16 06:59 14:59 22:59 06:59 14:59 22:59 Intake Total 2080 ml Output Total 200 ml 600 ml 550 ml Balance -200 ml 1480 ml -550 ml Intake Oral 0 ml Tube Feeding 1080 ml Tube Irrigant 200 ml Other 800 ml Output Urine Total 200 ml 600 ml 550 ml # Bowel Movements 0 1 0 Objective Remarks GENERAL: Well-developed, well-nourished, in no acute distress. Patient awake and alert HEENT: Head is normocephalic without any lesions or masses noted. Facial features are symmetric. Eyes: Extraocular muscles are intact. Conjunctivae were clear. Correlate base scaling noted on chin and nasolabial folds NECK: Trachea midline no deviation. CARDIAC: Regular rhythm, regular rate. S1/S2 are heard. No murmurs gallops or rubs. LUNGS: Clear to auscultation bilaterally. No wheeze, rhonchi or rales. No use of accessory muscles on inspiration or expiration. ABDOMEN: Soft, nontender. Nondistended. Bowel sounds heard in all 4 quadrants. No organomegaly or masses. Negative rebound, negative guarding, suprapubic catheter in place, PEG tube noted EXTREMITIES: No edema, pulses are equal bilaterally. No cyanosis or clubbing NEUROLOGY: Mood and affect appear appropriate. Cranial nerves II through XII grossly intact. Moving all extremities SKIN: Patient's back has skin breakdown on his back and sacral area. Procedures None Urinary Catheter: Yes (suprapubic catheter) Assessment to: Continue Soto insert reason: Obstruction/Retention Date of Insertion: Sep 01, 2016 Vascular Central Line Catheter: No A/P Assessment and Plan Weakness: Continue physical therapy Nursing staff to get patient up out of bed at least 3 times daily Dementia with inappropriate behavior, mood disorder improved Patient has been hospitalized for similar events in 2015 Consulted psychiatry for further evaluation, who indicated that this is a frontal lobe dementia Risperdal discontinued at family's request Continue Remeron Parkinson's disease: Patient has dementia and resting tremor. Chronic, stable. GI bleed with presenting of Upper GI bleed, patient with intermittent rectal bleeding: Resolved Hemoglobin continues to remain stable GI was following and reevaluated on 05/04/16 Presumed hemorrhoids, status post Anusol HC for 2 weeks Continue PPI. Protein calorie malnutrition: Improving Consulted dietitian who indicated that patient may be converted to bolus feeding Jevity 1.5, 6 cans per day. 1.5 cans that 0800 and 2000, 1 can at 1100, 1400, 1700 Prealbumin level 24 Ensure Enlive 3 times a day since pudding 3 times a day Excoriation noted around PEG tube, improving. Applying antibiotic ointment and Tefla to site Hypotension with episodes of hypertension: Stable Blood pressure labile. Continue monitor blood pressure Continue Midodrine. Mild obstructive uropathy: Resolved. Appreciate urology recommendations. Suprapubic catheter in place, improved after replacement of Soto Abdominal pelvis CT 03/06/16 shows resolution of right sided hydronephrosis. 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 Stage I decubitus ulcer, sacral skin tear: Continue wound care. Seborrhea dermatitis Hydrocortisone cream for 2 weeks Palliative care evaluation According to palliative care notes. Family wishes aggressive management, they are expecting him to improve, go to a rehabilitation facility and then improve enough to go home. They are deferring hospice. DVT prophylaxis: SCDs. Avoid chemical prophylaxis secondary to GI bleed. Records reviewed, no change in clinical status or treatment plan Discharge Planning Discharge planning per case management. Case management still trying to reach out to son to help with nursing facilities for acceptance. Jaguar Walker September 26, 2016 11:15
[2016-09-26 20:00] VITALS: BP 100/62; PULSE 70; RESP 20; TEMP 97.8; O2SAT 94
[2016-09-26] MEDS: MIRTAZAPINE 15 MG TAB PEG SCH (21:41)
[2016-09-27] MEDS: MIDODRINE 5 MG TAB PO SCH ×3 (06:13→17:00)
[2016-09-27 08:00] VITALS: BP 108/73; PULSE 69; RESP 18; TEMP 97.6; O2SAT 97
[2016-09-27] MEDS: FREE WATER G-TUBE SCH (09:00)
[2016-09-27] MEDS: HYDROCORTISONE 1% CREAM 30 GM TOPICAL SCH ×2 (10:27→21:07)
[2016-09-27] MEDS: ALLOPURINOL 100 MG TAB PEG SCH (10:27)
[2016-09-27] MEDS: LANSOPRAZOLE SOLUTAB 30 MG TAB PEG SCH (10:27)
[2016-09-27] MEDS: NEOMYCIN/POLYMYXIN/BACITRACIN OINT 15 GM TUBE TOPICAL SCH ×2 (10:27→21:07)
--- NOTE | 2016-09-27 10:53 | HHI.PR ---
Subjective Remarks Patient seen and examined today for follow-up on dementia and generalized weakness. Patient denies any new complaints. Objective Vitals Vital Signs Date Time Temp Pulse Resp B/P Pulse Ox O2 Delivery O2 Flow Rate FiO2 09/27/16 08:00 97.6 69 18 108/73 97 09/26/16 20:00 97.8 70 20 100/62 94 I/O 09/26/16 09/26/16 09/26/16 09/27/16 09/27/16 09/27/16 07:00 15:00 23:00 07:00 15:00 23:00 Intake Total 2560 ml Output Total 550 ml 1150 ml 625 ml Balance -550 ml 1410 ml -625 ml Intake Oral 0 ml Tube Feeding 1440 ml Tube Irrigant 200 ml Other 920 ml Output Urine Total 550 ml 1150 ml 625 ml # Bowel Movements 0 0 2 Objective Remarks GENERAL: Well-developed, well-nourished, in no acute distress. Patient awake and alert HEENT: Head is normocephalic without any lesions or masses noted. Facial features are symmetric. Eyes: Extraocular muscles are intact. Conjunctivae were clear. Correlate base scaling noted on chin and nasolabial folds NECK: Trachea midline no deviation. CARDIAC: Regular rhythm, regular rate. S1/S2 are heard. No murmurs gallops or rubs. LUNGS: Clear to auscultation bilaterally. No wheeze, rhonchi or rales. No use of accessory muscles on inspiration or expiration. ABDOMEN: Soft, nontender. Nondistended. Bowel sounds heard in all 4 quadrants. No organomegaly or masses. Negative rebound, negative guarding, suprapubic catheter in place, PEG tube noted EXTREMITIES: No edema, pulses are equal bilaterally. No cyanosis or clubbing NEUROLOGY: Mood and affect appear appropriate. Cranial nerves II through XII grossly intact. Moving all extremities SKIN: Patient's back has skin breakdown on his back and sacral area. Procedures None Urinary Catheter: Yes (suprapubic catheter) Assessment to: Continue Soto insert reason: Obstruction/Retention Date of Insertion: Sep 01, 2016 A/P Assessment and Plan Weakness: Continue physical therapy Nursing staff to get patient up out of bed at least 3 times daily Dementia with inappropriate behavior, mood disorder improved Patient has been hospitalized for similar events in 2014 Consulted psychiatry for further evaluation, who indicated that this is a frontal lobe dementia Risperdal discontinued at family's request Continue Remeron Parkinson's disease: Patient has dementia and resting tremor. Chronic, stable. GI bleed with presenting of Upper GI bleed, patient with intermittent rectal bleeding: Resolved Hemoglobin continues to remain stable GI was following and reevaluated on 05/04/16 Presumed hemorrhoids, status post Anusol HC for 2 weeks Continue PPI. Protein calorie malnutrition: Improving Consulted dietitian who indicated that patient may be converted to bolus feeding Jevity 1.5, 6 cans per day. 1.5 cans that 0800 and 2000, 1 can at 1100, 1400, 1700 Prealbumin level 24 Ensure Enlive 3 times a day since pudding 3 times a day Excoriation noted around PEG tube, improving. Applying antibiotic ointment and Tefla to site Hypotension with episodes of hypertension: Stable Blood pressure labile. Continue monitor blood pressure Continue Midodrine. Mild obstructive uropathy: Resolved. Appreciate urology recommendations. Suprapubic catheter in place, improved after replacement of Soto Abdominal pelvis CT 03/06/16 shows resolution of right sided hydronephrosis. 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 Stage I decubitus ulcer, sacral skin tear: Continue wound care. Seborrhea dermatitis Hydrocortisone cream for 2 weeks Palliative care evaluation According to palliative care notes. Family wishes aggressive management, they are expecting him to improve, go to a rehabilitation facility and then improve enough to go home. They are deferring hospice. DVT prophylaxis: SCDs. Avoid chemical prophylaxis secondary to GI bleed. Records reviewed, no change in clinical status or treatment plan Discharge Planning Discharge planning per case management. Case management still trying to reach out to son to help with nursing facilities for acceptance. Jaguar Walker September 27, 2016 10:53
[2016-09-27 20:00] VITALS: BP 120/74; PULSE 75; RESP 20; TEMP 99.2; O2SAT 94
[2016-09-27] MEDS: MIRTAZAPINE 15 MG TAB PEG SCH (21:07)
[2016-09-28] MEDS: MIDODRINE 5 MG TAB PO SCH ×3 (06:41→18:27)
[2016-09-28 08:00] VITALS: BP 129/82; PULSE 84; RESP 21; TEMP 98.2; O2SAT 95
[2016-09-28] MEDS: LANSOPRAZOLE SOLUTAB 30 MG TAB PEG SCH (08:38)
[2016-09-28] MEDS: ALLOPURINOL 100 MG TAB PEG SCH (08:38)
[2016-09-28] MEDS: FREE WATER G-TUBE SCH (08:41)
[2016-09-28] MEDS: NEOMYCIN/POLYMYXIN/BACITRACIN OINT 15 GM TUBE TOPICAL SCH ×2 (08:49→20:33)
[2016-09-28] MEDS: HYDROCORTISONE 1% CREAM 30 GM TOPICAL SCH ×2 (08:49→20:33)
--- NOTE | 2016-09-28 09:13 | HHI.PR ---
Subjective Remarks Patient seen and examined today for follow-up on weakness and dementia. Patient denies any new complaints. Patient is resting comfortably in bed. Nurse was at bedside Objective Vitals Vital Signs Date Time Temp Pulse Resp B/P Pulse Ox O2 Delivery O2 Flow Rate FiO2 09/28/16 08:00 98.2 84 21 129/82 95 09/27/16 20:00 99.2 75 20 120/74 94 I/O 09/27/16 09/27/16 09/27/16 09/28/16 09/28/16 09/28/16 07:00 15:00 23:00 07:00 15:00 23:00 Intake Total 440 ml 760 ml Output Total 625 ml 1000 ml 500 ml Balance -625 ml 440 ml -1000 ml 260 ml Tube Feeding 240 ml 360 ml Tube Irrigant 400 ml Other 200 ml Output Urine Total 625 ml 1000 ml 500 ml # Bowel Movements 2 2 1 1 Objective Remarks GENERAL: Well-developed, well-nourished, in no acute distress. Patient awake and alert HEENT: Head is normocephalic without any lesions or masses noted. Facial features are symmetric. Eyes: Extraocular muscles are intact. Conjunctivae were clear. Correlate base scaling noted on chin and nasolabial folds NECK: Trachea midline no deviation. CARDIAC: Regular rhythm, regular rate. S1/S2 are heard. No murmurs gallops or rubs. LUNGS: Clear to auscultation bilaterally. No wheeze, rhonchi or rales. No use of accessory muscles on inspiration or expiration. ABDOMEN: Soft, nontender. Nondistended. Bowel sounds heard in all 4 quadrants. No organomegaly or masses. Negative rebound, negative guarding, suprapubic catheter in place, PEG tube noted EXTREMITIES: No edema, pulses are equal bilaterally. No cyanosis or clubbing NEUROLOGY: Mood and affect appear appropriate. Cranial nerves II through XII grossly intact. Moving all extremities SKIN: Patient's back has skin breakdown on his back and sacral area. Procedures None Urinary Catheter: Yes (suprapubic catheter) Assessment to: Continue Soto insert reason: Obstruction/Retention Date of Insertion: Sep 01, 2016 Vascular Central Line Catheter: No A/P Assessment and Plan Weakness: Continue physical therapy Nursing staff to get patient up out of bed at least 3 times daily Dementia with inappropriate behavior, mood disorder improved Patient has been hospitalized for similar events in 2015 Consulted psychiatry for further evaluation, who indicated that this is a frontal lobe dementia Risperdal discontinued at family's request Continue Remeron Parkinson's disease: Patient has dementia and resting tremor. Chronic, stable. GI bleed with presenting of Upper GI bleed, patient with intermittent rectal bleeding: Resolved Hemoglobin continues to remain stable GI was following and reevaluated on 05/04/16 Presumed hemorrhoids, status post Anusol HC for 2 weeks Continue PPI. Protein calorie malnutrition: Improving Consulted dietitian who indicated that patient may be converted to bolus feeding Jevity 1.5, 6 cans per day. 1.5 cans that 0800 and 2000, 1 can at 1100, 1400, 1700 Prealbumin level 24 Ensure Enlive 3 times a day since pudding 3 times a day Excoriation noted around PEG tube, improving. Applying antibiotic ointment and Tefla to site Hypotension with episodes of hypertension: Stable Blood pressure labile. Continue monitor blood pressure Continue Midodrine. Mild obstructive uropathy: Resolved. Appreciate urology recommendations. Suprapubic catheter in place, improved after replacement of Soto Abdominal pelvis CT 03/06/16 shows resolution of right sided hydronephrosis. 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 Stage I decubitus ulcer, sacral skin tear: Continue wound care. Seborrhea dermatitis Hydrocortisone cream for 2 weeks Palliative care evaluation According to palliative care notes. Family wishes aggressive management, they are expecting him to improve, go to a rehabilitation facility and then improve enough to go home. They are deferring hospice. DVT prophylaxis: SCDs. Avoid chemical prophylaxis secondary to GI bleed. Records reviewed, no change in clinical status or treatment plan Discharge Planning Discharge planning per case management. Case management still trying to reach out to son to help with nursing facilities for acceptance. Jaguar Walker September 28, 2016 09:13
[2016-09-28 20:00] VITALS: BP 105/67; PULSE 70; RESP 20; TEMP 99.1; O2SAT 95
[2016-09-28] MEDS: MIRTAZAPINE 15 MG TAB PEG SCH (20:32)
[2016-09-29] MEDS: MIDODRINE 5 MG TAB PO SCH ×3 (06:26→16:50)
[2016-09-29] MEDS: LANSOPRAZOLE SOLUTAB 30 MG TAB PEG SCH (08:19)
[2016-09-29] MEDS: NEOMYCIN/POLYMYXIN/BACITRACIN OINT 15 GM TUBE TOPICAL SCH ×2 (08:19→21:47)
[2016-09-29] MEDS: ALLOPURINOL 100 MG TAB PEG SCH (08:19)
[2016-09-29] MEDS: HYDROCORTISONE 1% CREAM 30 GM TOPICAL SCH ×2 (08:19→21:47)
[2016-09-29] MEDS: FREE WATER G-TUBE SCH (08:19)
[2016-09-29 08:40] VITALS: BP 98/54; PULSE 92; RESP 15; TEMP 98.4; O2SAT 92
--- NOTE | 2016-09-29 11:52 | HHI.PR ---
Subjective Remarks Patient seen today for follow-up on dementia and weakness. Patient is sleeping and resting comfortably. Nursing staff does not indicate any new planes or problems. Objective Vitals Vital Signs Date Time Temp Pulse Resp B/P Pulse Ox O2 Delivery O2 Flow Rate FiO2 09/29/16 08:40 98.4 92 15 98/54 92 09/28/16 20:00 99.1 70 20 105/67 95 I/O 09/28/16 09/28/16 09/28/16 09/29/16 09/29/16 09/29/16 07:00 15:00 23:00 07:00 15:00 23:00 Intake Total 760 ml 840 ml 240 ml Output Total 500 ml 750 ml 300 ml 300 ml Balance 260 ml 90 ml -60 ml -300 ml Tube Feeding 360 ml 840 ml 240 ml Tube Irrigant 400 ml Output Urine Total 500 ml 750 ml 300 ml 300 ml # Bowel Movements 1 1 1 Objective Remarks GENERAL: Well-developed, well-nourished, in no acute distress. Patient is asleep Procedures None Urinary Catheter: Yes Date of Insertion: Sep 01, 2016 Vascular Central Line Catheter: No A/P Assessment and Plan Weakness: Continue physical therapy Nursing staff to get patient up out of bed at least 3 times daily Dementia with inappropriate behavior, mood disorder improved Patient has been hospitalized for similar events in 2014 Consulted psychiatry for further evaluation, who indicated that this is a frontal lobe dementia Risperdal discontinued at family's request Continue Remeron Parkinson's disease: Patient has dementia and resting tremor. Chronic, stable. GI bleed with presenting of Upper GI bleed, patient with intermittent rectal bleeding: Resolved Hemoglobin continues to remain stable GI was following and reevaluated on 05/04/16 Presumed hemorrhoids, status post Anusol HC for 2 weeks Continue PPI. Protein calorie malnutrition: Improving Consulted dietitian who indicated that patient may be converted to bolus feeding Jevity 1.5, 6 cans per day. 1.5 cans that 0800 and 2000, 1 can at 1100, 1400, 1700 Prealbumin level 24 Ensure Enlive 3 times a day since pudding 3 times a day Excoriation noted around PEG tube, improving. Applying antibiotic ointment and Tefla to site Hypotension with episodes of hypertension: Stable Blood pressure labile. Continue monitor blood pressure Continue Midodrine. Mild obstructive uropathy: Resolved. Appreciate urology recommendations. Suprapubic catheter in place, improved after replacement of Soto Abdominal pelvis CT 03/06/16 shows resolution of right sided hydronephrosis. 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 Stage I decubitus ulcer, sacral skin tear: Continue wound care. Seborrhea dermatitis Hydrocortisone cream for 2 weeks Palliative care evaluation According to palliative care notes. Family wishes aggressive management, they are expecting him to improve, go to a rehabilitation facility and then improve enough to go home. They are deferring hospice. DVT prophylaxis: SCDs. Avoid chemical prophylaxis secondary to GI bleed. Records reviewed, no change in clinical status or treatment plan Discharge Planning Discharge planning per case management. Case management still trying to reach out to son to help with nursing facilities for acceptance. Jaguar Walker September 29, 2016 11:52
[2016-09-29 18:50] VITALS: BP 88/60; PULSE 76; RESP 18; TEMP 96.5; O2SAT 95
[2016-09-29 19:14] LABS: AUTOMATED NEUTROPHIL # 3.1 TH/MM3 (1.8-7.7); BASOPHIL # 0.1 TH/MM3 (0-0.2); BASOPHIL % 1.5 % (0.0-2.0); EOSINOPHIL # 0.3 TH/MM3 (0-0.4); EOSINOPHIL % 4.5 % (0.0-4.0); HEMATOCRIT 44.9 % (39.0-51.0); HEMO FLAGS DIFF FINAL; LYMPH % 38.8 % (9.0-44.0); LYMPHOCYTE # 2.6 TH/MM3 (1.0-4.8); MEAN CELL VOLUME 88.2 FL (80.0-100.0); MEAN CORPUSCULAR HEMOGLOBIN 27.9 PG (27.0-34.0); MEAN CORPUSCULAR HGB CONC 31.7 % (32.0-36.0); MONO % 7.4 % (0.0-8.0); NEUT % 47.8 % (16.0-70.0); PLATELET COUNT 178 TH/MM3 (150-450); RED BLOOD COUNT 5.09 MIL/MM3 (4.50-5.90); WHITE BLOOD COUNT 6.6 TH/MM3 (4.0-11.0)
[2016-09-29 19:22] LABS: CHLORIDE 104 MEQ/L (98-107); POTASSIUM 3.8 MEQ/L (3.5-5.1); SODIUM (NA) 138 MEQ/L (136-145)
[2016-09-29 19:26] LABS: ANION GAP 6 MEQ/L (5-15); BICARBONATE 27.6 MEQ/L (21.0-32.0); BLOOD UREA NITROGEN 21 MG/DL (7-18)
[2016-09-29 19:29] LABS: ALT (GPT) 20 U/L (12-78); AST (GOT) 34 U/L (15-37); GLOMERULAR FILTRATION RATE 111 ML/MIN (>89)
[2016-09-29 19:30] LABS: TOTAL BILIRUBIN ADULT 0.4 MG/DL (0.2-1.0)
[2016-09-29 19:32] LABS: ALKALINE PHOSPHATASE 112 U/L (45-117)
[2016-09-29 19:58] LABS: BLOOD, URINE LARGE (NEG); GLUCOSE,URINE NEG (NEG); KETONE, URINE NEG (NEG); NITRITE,URINE NEG (NEG); PH, URINE 5.5 (5.0-8.5)
[2016-09-29 20:00] VITALS: BP 100/66; PULSE 71; RESP 20; TEMP 97.3; O2SAT 96
[2016-09-29 20:17] LABS: URINE COLOR YELLOW (YELLW/STRAW)
[2016-09-29 20:19] LABS: MUCUS URINE OCC /lpf (OCC); SQUAMOUS EPITHELIAL CELL URINE 0-5 /hpf (0-5)
[2016-09-29 20:20] LABS: BACTERIA, URINE OCC /hpf
[2016-09-29 20:30] LABS: METHOD OF COLLECTION CATH
[2016-09-29 20:31] LABS: COMMENT (UR) CATH-CULTURE IND; CULTURE IF INDICATED CATH CULTURE IND
[2016-09-29] MEDS: MIRTAZAPINE 15 MG TAB PEG SCH (21:46)
[2016-09-30] MEDS: MIDODRINE 5 MG TAB PO SCH ×3 (06:07→17:14)
[2016-09-30 08:00] VITALS: BP 110/72; PULSE 88; RESP 18; TEMP 97.8; O2SAT 95
[2016-09-30] MEDS: FREE WATER G-TUBE SCH (08:46)
[2016-09-30] MEDS: ALLOPURINOL 100 MG TAB PEG SCH (08:46)
[2016-09-30] MEDS: LANSOPRAZOLE SOLUTAB 30 MG TAB PEG SCH (08:46)
[2016-09-30] MEDS: HYDROCORTISONE 1% CREAM 30 GM TOPICAL SCH ×2 (08:47→21:34)
[2016-09-30] MEDS: NEOMYCIN/POLYMYXIN/BACITRACIN OINT 15 GM TUBE TOPICAL SCH ×2 (08:47→21:34)
--- NOTE | 2016-09-30 09:43 | HHI.PR ---
Subjective Remarks Patient seen and examined today for dementia and weakness. Patient's family was concerned about the patient's condition last evening. I did discuss with the family extensively the patient's condition, did workup as requested by the family. It has remained negative and unremarkable for any acute abnormality. Apparently, the patient was met his son. His son does understand this and does know that his father gets mad at family members because he is in the hospital and wants them to take him home. This happens periodically when they visited and after they leave he becomes angry with the family. Objective Vitals Vital Signs Date Time Temp Pulse Resp B/P Pulse Ox O2 Delivery O2 Flow Rate FiO2 09/30/16 08:00 97.8 88 18 110/72 95 09/29/16 20:00 97.3 71 20 100/66 96 09/29/16 18:50 96.5 76 18 88/60 95 I/O 09/29/16 09/29/16 09/29/16 09/30/16 09/30/16 09/30/16 06:59 14:59 22:59 06:59 14:59 22:59 Intake Total 2080 ml 540 ml Output Total 300 ml 600 ml 550 ml Balance -300 ml 1480 ml -10 ml Intake Oral 0 ml 0 ml Tube Feeding 1080 ml 360 ml Tube Irrigant 200 ml 180 ml Other 800 ml Output Urine Total 300 ml 600 ml 550 ml # Bowel Movements 1 1 1 Result Diagram: 09/29/16190409/29/[id number] Objective Remarks GENERAL: Well-developed, well-nourished, in no acute distress. Patient is asleep HEENT: Head is normocephalic without any lesions or masses noted. Facial features are symmetric. Eyes: Extraocular muscles are intact. Conjunctivae were clear. Correlate base scaling noted on chin and nasolabial folds NECK: Trachea midline no deviation. CARDIAC: Regular rhythm, regular rate. S1/S2 are heard. No murmurs gallops or rubs. LUNGS: Clear to auscultation bilaterally. No wheeze, rhonchi or rales. No use of accessory muscles on inspiration or expiration. ABDOMEN: Soft, nontender. Nondistended. Bowel sounds heard in all 4 quadrants. No organomegaly or masses. Negative rebound, negative guarding, suprapubic catheter in place, PEG tube noted EXTREMITIES: No edema, pulses are equal bilaterally. No cyanosis or clubbing NEUROLOGY: Mood and affect appear appropriate. Cranial nerves II through XII grossly intact. Moving all extremities Procedures None Urinary Catheter: Yes Assessment to: Continue Soto insert reason: Obstruction/Retention Date of Insertion: September 29, 2016 Vascular Central Line Catheter: No A/P Assessment and Plan Weakness: Continue physical therapy Nursing staff to get patient up out of bed at least 3 times daily Dementia with inappropriate behavior, mood disorder improved Patient has been hospitalized for similar events in 2014 Consulted psychiatry for further evaluation, who indicated that this is a frontal lobe dementia Risperdal discontinued at family's request Continue Remeron Parkinson's disease: Patient has dementia and resting tremor. Chronic, stable. GI bleed with presenting of Upper GI bleed, patient with intermittent rectal bleeding: Resolved Hemoglobin continues to remain stable GI was following and reevaluated on 05/04/16 Presumed hemorrhoids, status post Anusol HC for 2 weeks Continue PPI. Protein calorie malnutrition: Improving Consulted dietitian who indicated that patient may be converted to bolus feeding Jevity 1.5, 6 cans per day. 1.5 cans that 0800 and 2000, 1 can at 1100, 1400, 1700 Prealbumin level 24 Ensure Enlive 3 times a day since pudding 3 times a day Excoriation noted around PEG tube, improving. Applying antibiotic ointment and Tefla to site Hypotension with episodes of hypertension: Stable Blood pressure labile. Continue monitor blood pressure Continue Midodrine. Mild obstructive uropathy: Resolved. Appreciate urology recommendations. Suprapubic catheter in place, improved after replacement of Soto Abdominal pelvis CT 03/06/16 shows resolution of right sided hydronephrosis. 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 Stage I decubitus ulcer, sacral skin tear: Continue wound care. Seborrhea dermatitis Hydrocortisone cream for 2 weeks Palliative care evaluation According to palliative care notes. Family wishes aggressive management, they are expecting him to improve, go to a rehabilitation facility and then improve enough to go home. They are deferring hospice. DVT prophylaxis: SCDs. Avoid chemical prophylaxis secondary to GI bleed. Records reviewed, no change in clinical status or treatment plan Discharge Planning Discharge planning per case management. Case management still trying to reach out to son to help with nursing facilities for acceptance. Jaguar Walker September 30, 2016 09:42
[2016-09-30 20:00] VITALS: BP 93/59; PULSE 81; RESP 20; TEMP 99.1; O2SAT 96
[2016-09-30] MEDS: MIRTAZAPINE 15 MG TAB PEG SCH (21:00)
[2016-10-01] MEDS: MIDODRINE 5 MG TAB PO SCH ×3 (05:46→17:04)
[2016-10-01 08:00] VITALS: BP 114/80; PULSE 80; RESP 18; TEMP 98.2; O2SAT 95
[2016-10-01] MEDS: LANSOPRAZOLE SOLUTAB 30 MG TAB PEG SCH (08:13)
[2016-10-01] MEDS: ALLOPURINOL 100 MG TAB PEG SCH (08:13)
[2016-10-01] MEDS: NEOMYCIN/POLYMYXIN/BACITRACIN OINT 15 GM TUBE TOPICAL SCH ×2 (08:14→21:42)
[2016-10-01] MEDS: HYDROCORTISONE 1% CREAM 30 GM TOPICAL SCH ×2 (08:14→21:42)
[2016-10-01] MEDS: FREE WATER G-TUBE SCH (08:14)
--- NOTE | 2016-10-01 12:40 | HHI.PR ---
Subjective Remarks Follow up for dementia. No acute complaints. Objective Vitals Vital Signs Date Time Temp Pulse Resp B/P Pulse Ox O2 Delivery O2 Flow Rate FiO2 10/01/16 08:00 98.2 80 18 114/80 95 09/30/16 20:00 99.1 81 20 93/59 96 I/O 09/30/16 09/30/16 09/30/16 10/01/16 10/01/16 10/01/16 07:00 15:00 23:00 07:00 15:00 23:00 Intake Total 540 ml 2640 ml 250 ml Output Total 550 ml 826 ml 750 ml Balance -10 ml 1814 ml -500 ml Intake Oral 0 ml Tube Feeding 360 ml 1440 ml Tube Irrigant 180 ml 400 ml 250 ml Other 800 ml Output Urine Total 550 ml 825 ml 750 ml Stool Total 1 ml Result Diagram: 09/29/16190409/29/161904 Objective Remarks GENERAL: Elderly disheveled appearing male in no apparent distress. SKIN: Flaking skin to the face. Less erythema to the face. CARDIOVASCULAR: Regular rate and rhythm. RESPIRATORY: No accessory muscle use. CTAB. GASTROINTESTINAL: Abdomen is soft, non-tender, nondistended. NEURO: Awake and alert. Nods to questions, but does not speak aloud. PSYCHIATRIC: Normal mood and affect. Procedures None Urinary Catheter: No Date of Insertion: September 29, 2016 Vascular Central Line Catheter: No A/P Problem List: (1) Decreased urine output ICD Code: R34 Status: Acute (2) Prerenal azotemia ICD Code: R79.89 Status: Acute (3) Hematuria ICD Code: R31.9 Status: Acute Assessment and Plan Wound at suprapubic catheter site: Improved. Appears uninfected. Likely attributed to shearing from tubing. -RN instructed to apply antibiotic ointment and Telfa to site and monitor area. Hematuria: Resolved. -Patient is not on anticoagulation. -Hemoglobin normal. -Creatinine is normal. -UA 4/5 with innumerable RBCs, but urine sample not grossly bloody. Urinary tract infection, recurrent: Urine culture positive for Proteus mirabilis and GBS on 01/20. Patient completed course of antibiotics. Abdominal pelvis CT 03/06 shows decompressed bladder with circumferential bladder wall thickening and intraluminal air possibly indicating cystitis, but the patient had been afebrile with normal WBC count. Urine culture 05/31 with Serratia marcescens, Pseudomonas, and Enterococcus faecalis. Patient was started on antibiotics. Repeat urine culture on 06/04 only reveals contaminants. Urine culture 08/07 with Enterococcus faecalis and Pseudomonas Aeruginosa similar to previous culture on 05/31. Patient remains afebrile. CBC with normal white blood cell count. Continue to change Soto monthly. 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 Monitor and treat only if symptomatic. Mild obstructive uropathy: Resolved. Appreciate urology recommendations. Suprapubic catheter to be changed monthly; last changed 09/01/16. Abdominal pelvis CT 03/06/16 shows resolution of right sided hydronephrosis. Upper GI bleeding with recurrent rectal bleeding: Resolved. Hemoglobin stable. GI reevaluated patient on 05/04. Presumed hemorrhoids, s/p Anusol HC for total of 2 weeks. Continue PPI. Protein calorie malnutrition: Improving Consulted dietitian who indicated that patient may be converted to bolus feeding Jevity 1.5 w/ bolus 1.5 cans(360ml) @ 0800 and 2000 and 1-can(240ml) @ 1100, 1400 and 1700. Free Water Flush 100ml before and after each bolus feeding. Ensure Enlive tid and chocolate pudding tid Prealbumin level 25. Patient desired to eat and speech therapy advised puree diet, thin liquids, but patient has not been eating. Sink Cutter suggested considering appetite stimulant. This was discussed with attending, but we do not believe this would be beneficial for patient and would add unnecessary risk to the patient. Will continue with tube feeds only. Dementia with inappropriate behavior, mood disorder improved Patient had inappropriate behavior which is resolved now. He has been very appropriate for a long time now. Patient has been hospitalized for similar events in 2015 Consulted psychiatry for further evaluation, who indicated that this is a frontal lobe dementia Risperdal 0.25 mg during the day, Risperdal 0.5 mg at night. Risperdal was discontinued per POA request. Continue [facility] Psychiatry was reconsulted and is ok with discontinuation of Risperdal. Seborrheic dermatitis: Improved. S/p Ketoconazole 2% shampoo and hydrocortisone lotion. Continue hydrocortisone 1% cream bid. Chalazion: Nodule R upper eyelid. There is no evidence of preseptal cellulitis. -Warm compresses were applied but it was greater than 2 weeks without significant improvement. -Ophthalmology was consulted and evaluated patient on 03/26. S/p warm compresses and Tobradex 4 times a day OD x 2 weeks. Patient was intermittently compliant with eyedrops. -No worsening. Follow-up outpatient. Hypotension: Blood pressure labile. Continue Midodrine. Patient on max dose. Increase free water flushes as needed. Pre-renal azotemia: Resolved. BUN improved to 18 on 09/11/16. Continue free water flushes Monitor BMP periodically Stage I decubitus ulcer, sacral skin tear: Continue wound care. Frequent turning of patient. Candidal infection: buttocks affected with satellite lesions to the perineum. -S/p Nystatin and clotrimazole Weakness: Continue physical therapy Nursing staff to get patient up out of bed at least 3 times daily Palliative care evaluation According to palliative care notes family wishes aggressive management, they are expecting him to improve, go to a rehabilitation facility and then improve enough to go home. They are declining hospice. DVT prophylaxis: SCDs. Avoid chemical prophylaxis secondary to GI bleed. Discharge Planning 09/27: Per CM son states he can meet with [place] [facility] next week regarding father 's placement. Madeline Ortez October 01, 2016 12:40 there first. 08/26: DORIS continues to make calls to son for assistance to get patient placed as son needs to go to [place] [facility] to speak with them. Madeline Ortez October 01, 2016 12:40
[2016-10-01 20:00] VITALS: BP 97/67; PULSE 58; RESP 19; TEMP 97.6; O2SAT 98
[2016-10-01] MEDS: MIRTAZAPINE 15 MG TAB PEG SCH (21:42)
[2016-10-02] MEDS: MIDODRINE 5 MG TAB PO SCH ×3 (06:31→17:39)
[2016-10-02 08:00] VITALS: BP_SYST 115; BP_SYST 130; BP_DIAS 66; BP_DIAS 82; PULSE 70; PULSE 82; RESP 18; RESP 19; TEMP 97.8; TEMP 98; O2SAT 100; O2SAT 96
[2016-10-02] MEDS: ALLOPURINOL 100 MG TAB PEG SCH (08:51)
[2016-10-02] MEDS: HYDROCORTISONE 1% CREAM 30 GM TOPICAL SCH ×2 (08:51→20:50)
[2016-10-02] MEDS: NEOMYCIN/POLYMYXIN/BACITRACIN OINT 15 GM TUBE TOPICAL SCH ×2 (08:51→20:51)
[2016-10-02] MEDS: LANSOPRAZOLE SOLUTAB 30 MG TAB PEG SCH (08:51)
[2016-10-02] MEDS: FREE WATER G-TUBE SCH (08:51)
--- NOTE | 2016-10-02 13:38 | HHI.PR ---
Subjective Remarks Follow-up for dementia. No acute complaints. Objective Vitals Vital Signs Date Time Temp Pulse Resp B/P Pulse Ox O2 Delivery O2 Flow Rate FiO2 10/02/16 08:00 97.8 70 18 115/66 96 10/01/16 20:00 97.6 58 19 97/67 98 I/O 10/01/16 10/01/16 10/01/16 10/02/16 10/02/16 10/02/16 07:00 15:00 23:00 07:00 15:00 23:00 Intake Total 250 ml 2600 ml Output Total 750 ml 1351 ml 500 ml Balance -500 ml 1249 ml -500 ml Tube Feeding 2280 ml Tube Irrigant 250 ml Other 320 ml Output Urine Total 750 ml 1350 ml 500 ml Stool Total 1 ml Result Diagram: 09/29/16190409/29/161904 Objective Remarks GENERAL: Elderly male in no apparent distress. SKIN: No notable erythema noted. Only minor flaking of skin, significantly improved from prior exams. CARDIOVASCULAR: Regular rate and rhythm. RESPIRATORY: No accessory muscle use. CTAB. GASTROINTESTINAL: Normoactive bowel sounds. Abdomen is soft, non-tender, nondistended. NEURO: Awake and alert. Nods to questions, but does not speak aloud. PSYCHIATRIC: Normal mood and affect. Procedures None Urinary Catheter: Yes Assessment to: Continue Soto insert reason: Obstruction/Retention Date of Insertion: September 29, 2016 Vascular Central Line Catheter: No A/P Assessment and Plan Wound at suprapubic catheter site: Improved. Appears uninfected. Likely attributed to shearing from tubing. -Continue to apply antibiotic ointment and Telfa to site until healed and monitor area. Hematuria: Resolved. -Patient is not on anticoagulation. -Hemoglobin normal. -Creatinine is normal. -UA 4/5 with innumerable RBCs, but urine sample not grossly bloody. Urinary tract infection, recurrent: Urine culture positive for Proteus mirabilis and GBS on 01/20. Patient completed course of antibiotics. Abdominal pelvis CT 03/06 shows decompressed bladder with circumferential bladder wall thickening and intraluminal air possibly indicating cystitis, but the patient had been afebrile with normal WBC count. Urine culture 05/31 with Serratia marcescens, Pseudomonas, and Enterococcus faecalis. Patient was started on antibiotics. Repeat urine culture on 06/04 only reveals contaminants. Urine culture 4/5 with Enterococcus faecalis and Pseudomonas Aeruginosa similar to previous culture on 05/31. Patient remains afebrile. CBC with normal white blood cell count. Continue to change Soto monthly. 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 Monitor and treat only if symptomatic. Mild obstructive uropathy: Resolved. Appreciate urology recommendations. Suprapubic catheter to be changed monthly; last changed 09/29/16. Abdominal pelvis CT 03/06/16 shows resolution of right sided hydronephrosis. Upper GI bleeding with recurrent rectal bleeding: Resolved. Hemoglobin stable. GI reevaluated patient on 05/04. Presumed hemorrhoids, s/p Anusol HC for total of 2 weeks. Continue PPI. Protein calorie malnutrition: Improving Consulted dietitian who indicated that patient may be converted to bolus feeding Jevity 1.5 w/ bolus 1.5 cans(360ml) @ 0800 and 2000 and 1-can(240ml) @ 1100, 1400 and 1700. Free Water Flush 100ml before and after each bolus feeding. Ensure Enlive tid and chocolate pudding tid Prealbumin level 25. Patient desired to eat and speech therapy advised puree diet, thin liquids, but patient has not been eating. Social Media Director suggested considering appetite stimulant. This was discussed with attending, but we do not believe this would be beneficial for patient and would add unnecessary risk to the patient. Will continue with tube feeds only. Dementia with inappropriate behavior, mood disorder improved Patient had inappropriate behavior which is resolved now. He has been very appropriate for a long time now. Patient has been hospitalized for similar events in 2015 Consulted psychiatry for further evaluation, who indicated that this is a frontal lobe dementia Risperdal 0.25 mg during the day, Risperdal 0.5 mg at night. Risperdal was discontinued per POA request. Continue Remeron Psychiatry was reconsulted and is ok with discontinuation of Risperdal. Seborrheic dermatitis: Significantly improved. S/p Ketoconazole 2% shampoo and hydrocortisone lotion. Continue hydrocortisone 1% cream bid. Chalazion: Nodule R upper eyelid. There is no evidence of preseptal cellulitis. -Warm compresses were applied but it was greater than 2 weeks without significant improvement. -Ophthalmology was consulted and evaluated patient on 03/26. S/p warm compresses and Tobradex 4 times a day OD x 2 weeks. Patient was intermittently compliant with eyedrops. -No worsening. Follow-up outpatient. Hypotension: Blood pressure labile. Continue Midodrine. Patient on max dose. Increase free water flushes as needed. Pre-renal azotemia: Resolved. BUN improved to 18 on 09/11/16. Continue free water flushes Monitor BMP periodically Stage I decubitus ulcer, sacral skin tear: Continue wound care. Frequent turning of patient. Candidal infection: buttocks affected with satellite lesions to the perineum. -S/p Nystatin and clotrimazole Weakness: Continue physical therapy Nursing staff to get patient up out of bed at least 3 times daily Palliative care evaluation According to palliative care notes family wishes aggressive management, they are expecting him to improve, go to a rehabilitation facility and then improve enough to go home. They are declining hospice. DVT prophylaxis: SCDs. Avoid chemical prophylaxis secondary to GI bleed. Discharge Planning 09/27: Per CM son states he can meet with [place] [facility] next week regarding father 's placement. Madeline Ortez October 02, 2016 13:38 are expecting him to improve, go to a rehabilitation facility and then improve enough to go home. They are declining hospice. DVT prophylaxis: SCDs. Avoid chemical prophylaxis secondary to GI bleed. Discharge Planning 09/27: Per CM son states he can meet with [place] [facility] next week regarding father 's placement. Madeline Ortez October 02, 2016 13:38
[2016-10-02 20:00] VITALS: BP 107/74; PULSE 76; RESP 20; TEMP 98.2; O2SAT 93
[2016-10-02] MEDS: MIRTAZAPINE 15 MG TAB PEG SCH (20:50)
[2016-10-03 08:20] VITALS: BP 116/78; PULSE 86; RESP 18; TEMP 97.8; O2SAT 93
[2016-10-03] MEDS: MIDODRINE 5 MG TAB PO SCH ×3 (08:56→16:33)
[2016-10-03] MEDS: ALLOPURINOL 100 MG TAB PEG SCH (08:56)
[2016-10-03] MEDS: LANSOPRAZOLE SOLUTAB 30 MG TAB PEG SCH (08:56)
[2016-10-03] MEDS: FREE WATER G-TUBE SCH (08:56)
[2016-10-03] MEDS: HYDROCORTISONE 1% CREAM 30 GM TOPICAL SCH ×2 (08:57→21:00)
[2016-10-03] MEDS: NEOMYCIN/POLYMYXIN/BACITRACIN OINT 15 GM TUBE TOPICAL SCH ×2 (08:57→21:00)
--- NOTE | 2016-10-03 11:13 | HHI.PR ---
Subjective Remarks Follow up for dementia. No acute complaints. Objective Vitals Vital Signs Date Time Temp Pulse Resp B/P Pulse Ox O2 Delivery O2 Flow Rate FiO2 10/03/16 08:20 97.8 86 18 116/78 93 10/02/16 20:00 98.2 76 20 107/74 93 I/O 10/02/16 10/02/16 10/02/16 10/03/16 10/03/16 10/03/16 07:00 15:00 23:00 07:00 15:00 23:00 Intake Total 1660 ml 100 ml Output Total 500 ml 400 ml 625 ml 500 ml Balance -500 ml -400 ml 1035 ml -500 ml 100 ml Intake Oral 100 ml Tube Feeding 1440 ml Other 220 ml Output Urine Total 500 ml 400 ml 625 ml 500 ml # Bowel Movements 1 Result Diagram: 09/29/16190409/29/161904 Objective Remarks GENERAL: Elderly male in no apparent distress. SKIN: No erythema or flaking skin to the face. CARDIOVASCULAR: Regular rate and rhythm. RESPIRATORY: No accessory muscle use. CTAB. GASTROINTESTINAL: Normoactive bowel sounds. Abdomen is soft, non-tender, nondistended. NEURO: Awake and alert. Nods to questions, but does not speak aloud. PSYCHIATRIC: Normal mood and affect. Procedures None Urinary Catheter: Yes Assessment to: Continue Soto insert reason: Obstruction/Retention Date of Insertion: September 29, 2016 Vascular Central Line Catheter: No A/P Problem List: (1) Decreased urine output ICD Code: R34 Status: Acute (2) Prerenal azotemia ICD Code: R79.89 Status: Acute (3) Hematuria ICD Code: R31.9 Status: Acute Assessment and Plan Wound at suprapubic catheter site: Improved. Appears uninfected. Likely attributed to shearing from tubing. -Continue to apply antibiotic ointment and Telfa to site until healed and monitor area. Hematuria: Resolved. -Patient is not on anticoagulation. -Hemoglobin normal. -Creatinine is normal. -UA 4/5 with innumerable RBCs, but urine sample not grossly bloody. Urinary tract infection, recurrent: Urine culture positive for Proteus mirabilis and GBS on 01/20. Patient completed course of antibiotics. Abdominal pelvis CT 03/06 shows decompressed bladder with circumferential bladder wall thickening and intraluminal air possibly indicating cystitis, but the patient had been afebrile with normal WBC count. Urine culture 05/31 with Serratia marcescens, Pseudomonas, and Enterococcus faecalis. Patient was started on antibiotics. Repeat urine culture on 06/04 only reveals contaminants. Urine culture 08/07 with Enterococcus faecalis and Pseudomonas Aeruginosa similar to previous culture on 05/31. Patient remains afebrile. CBC with normal white blood cell count. Continue to change Soto monthly. 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 Monitor and treat only if symptomatic. Mild obstructive uropathy: Resolved. Appreciate urology recommendations. Suprapubic catheter to be changed monthly; last changed 09/29/16. Abdominal pelvis CT 03/06/16 shows resolution of right sided hydronephrosis. Upper GI bleeding with recurrent rectal bleeding: Resolved. Hemoglobin stable. GI reevaluated patient on 05/04. Presumed hemorrhoids, s/p Anusol HC for total of 2 weeks. Continue PPI. Protein calorie malnutrition: Improving Consulted dietitian who indicated that patient may be converted to bolus feeding Jevity 1.5 w/ bolus 1.5 cans (360ml) @ 0800 and 2000 and 1 can (240ml) @ 1100 , 1400 and 1700. Free Water Flush 100ml before and after each bolus feeding. Ensure Enlive tid and chocolate pudding tid. Patient desired to eat and speech therapy advised puree diet, thin liquids, but patient has not been eating. Project Development Coordinator suggested considering appetite stimulant. This was discussed with attending, but we do not believe this would be beneficial for patient and would add unnecessary risk to the patient. Will continue with tube feeds only. Dementia with inappropriate behavior, mood disorder improved Patient had inappropriate behavior which is resolved now. He has been very appropriate for a long time now. Patient has been hospitalized for similar events in 2015 Consulted psychiatry for further evaluation, who indicated that this is a frontal lobe dementia Risperdal 0.25 mg during the day, Risperdal 0.5 mg at night. Risperdal was discontinued per POA request. Continue Remeron Psychiatry was reconsulted and is ok with discontinuation of Risperdal. Seborrheic dermatitis: Significantly improved. S/p Ketoconazole 2% shampoo and hydrocortisone lotion. Continue hydrocortisone 1% cream bid. Chalazion: Nodule R upper eyelid. There is no evidence of preseptal cellulitis. -Warm compresses were applied but it was greater than 2 weeks without significant improvement. -Ophthalmology was consulted and evaluated patient on 03/26. S/p warm compresses and Tobradex 4 times a day OD x 2 weeks. Patient was intermittently compliant with eyedrops. -No worsening. Follow-up outpatient. Hypotension: Blood pressure labile. Continue Midodrine. Patient on max dose. Increase free water flushes as needed. Pre-renal azotemia: Resolved. BUN improved to 18 on 09/11/16. Continue free water flushes Monitor BMP periodically Stage I decubitus ulcer, sacral skin tear: Continue wound care. Frequent turning of patient. Candidal infection: buttocks affected with satellite lesions to the perineum. -S/p Nystatin and clotrimazole Weakness: Continue physical therapy Nursing staff to get patient up out of bed at least 3 times daily Palliative care evaluation According to palliative care notes family wishes aggressive management, they are expecting him to improve, go to a rehabilitation facility and then improve enough to go home. They are declining hospice. DVT prophylaxis: SCDs. Avoid chemical prophylaxis secondary to GI bleed. Discharge Planning 09/27: Per CM son states he can meet with [place] [facility] next week regarding father 's placement. Madeline Ortez Oct 03, 2016 11:13
[2016-10-03 20:00] VITALS: BP 125/82; PULSE 83; RESP 20; TEMP 97.4; O2SAT 95
[2016-10-03] MEDS: MIRTAZAPINE 15 MG TAB PEG SCH (21:34)
[2016-10-04] MEDS: MIDODRINE 5 MG TAB PO SCH ×3 (06:06→18:04)
[2016-10-04 08:00] VITALS: BP 99/61; PULSE 70; RESP 18; TEMP 96.8; O2SAT 96
[2016-10-04] MEDS: LANSOPRAZOLE SOLUTAB 30 MG TAB PEG SCH (09:44)
[2016-10-04] MEDS: ALLOPURINOL 100 MG TAB PEG SCH (09:44)
[2016-10-04] MEDS: FREE WATER G-TUBE SCH (09:51)
[2016-10-04] MEDS: NEOMYCIN/POLYMYXIN/BACITRACIN OINT 15 GM TUBE TOPICAL SCH ×2 (09:52→21:00)
[2016-10-04] MEDS: HYDROCORTISONE 1% CREAM 30 GM TOPICAL SCH ×2 (09:53→21:00)
--- NOTE | 2016-10-04 11:06 | HHI.PR ---
Subjective Remarks Follow-up for dementia. No acute complaints. Objective Vitals Vital Signs Date Time Temp Pulse Resp B/P Pulse Ox O2 Delivery O2 Flow Rate FiO2 10/04/16 08:00 96.8 70 18 99/61 96 10/03/16 20:00 97.4 83 20 125/82 95 I/O 10/03/16 10/03/16 10/03/16 10/04/16 10/04/16 10/04/16 07:00 15:00 23:00 07:00 15:00 23:00 Intake Total 100 ml 420 ml 0 ml Output Total 500 ml 1050 ml 200 ml Balance -500 ml 100 ml -630 ml -200 ml Intake Oral 100 ml 0 ml 0 ml Tube Feeding 360 ml Tube Irrigant 60 ml Output Urine Total 500 ml 1050 ml 200 ml # Bowel Movements 0 2 Objective Remarks GENERAL: Elderly male in no apparent distress. SKIN: No erythema or notable flaking skin to the face. CARDIOVASCULAR: Regular rate and rhythm. RESPIRATORY: No accessory muscle use. CTAB. GASTROINTESTINAL: Normoactive bowel sounds. Abdomen is soft, non-tender, nondistended. NEURO: Sleeping bu arouses to voice. Nods to questions, but does not speak aloud. PSYCHIATRIC: Normal mood and affect. Procedures None Urinary Catheter: Yes Assessment to: Continue Soto insert reason: Obstruction/Retention Date of Insertion: September 29, 2016 Vascular Central Line Catheter: No A/P Problem List: (1) Decreased urine output ICD Code: R34 Status: Acute (2) Prerenal azotemia ICD Code: R79.89 Status: Acute (3) Hematuria ICD Code: R31.9 Status: Acute Assessment and Plan Wound at suprapubic catheter site: Improved. Appears uninfected. Likely attributed to shearing from tubing. -Continue to apply antibiotic ointment and Telfa to site until healed and monitor area. Hematuria: Resolved. -Patient is not on anticoagulation. -Hemoglobin normal. -Creatinine is normal. -UA 4/5 with innumerable RBCs, but urine sample not grossly bloody. Urinary tract infection, recurrent: Urine culture positive for Proteus mirabilis and GBS on 01/20. Patient completed course of antibiotics. Abdominal pelvis CT 03/06 shows decompressed bladder with circumferential bladder wall thickening and intraluminal air possibly indicating cystitis, but the patient had been afebrile with normal WBC count. Urine culture 05/31 with Serratia marcescens, Pseudomonas, and Enterococcus faecalis. Patient was started on antibiotics. Repeat urine culture on 06/04 only reveals contaminants. Urine culture 08/07 with Enterococcus faecalis and Pseudomonas Aeruginosa similar to previous culture on 05/31. Patient remains afebrile. CBC with normal white blood cell count. Continue to change Soto monthly. 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 Monitor and treat only if symptomatic. Mild obstructive uropathy: Resolved. Appreciate urology recommendations. Suprapubic catheter to be changed monthly; last changed 09/29/16. Abdominal pelvis CT 03/06/16 shows resolution of right sided hydronephrosis. Upper GI bleeding with recurrent rectal bleeding: Resolved. Hemoglobin stable. GI reevaluated patient on 05/04. Presumed hemorrhoids, s/p Anusol HC for total of 2 weeks. Continue PPI. Protein calorie malnutrition: Improving Consulted dietitian who indicated that patient may be converted to bolus feeding Jevity 1.5 w/ bolus 1.5 cans (360ml) @ 0800 and 2000 and 1 can (240ml) @ 1100 , 1400 and 1700. Free Water Flush 100ml before and after each bolus feeding. Ensure Enlive tid and chocolate pudding tid. Patient desired to eat and speech therapy advised puree diet, thin liquids, but patient has not been eating. Test Grader suggested considering appetite stimulant. This was discussed with attending, but we do not believe this would be beneficial for patient and would add unnecessary risk to the patient. Will continue with tube feeds only. Dementia with inappropriate behavior, mood disorder improved Patient had inappropriate behavior which is resolved now. He has been very appropriate for a long time now. Patient has been hospitalized for similar events in 2015 Consulted psychiatry for further evaluation, who indicated that this is a frontal lobe dementia Risperdal 0.25 mg during the day, Risperdal 0.5 mg at night. Risperdal was discontinued per POA request. Continue Remeron Psychiatry was reconsulted and is ok with discontinuation of Risperdal. Seborrheic dermatitis: Significantly improved. S/p Ketoconazole 2% shampoo and hydrocortisone lotion. Continue hydrocortisone 1% cream bid. Chalazion: Nodule R upper eyelid. There is no evidence of preseptal cellulitis. -Warm compresses were applied but it was greater than 2 weeks without significant improvement. -Ophthalmology was consulted and evaluated patient on 03/26. S/p warm compresses and Tobradex 4 times a day OD x 2 weeks. Patient was intermittently compliant with eyedrops. -No worsening. Follow-up outpatient. Hypotension: Blood pressure labile. Continue Midodrine. Patient on max dose. Increase free water flushes as needed. Pre-renal azotemia: Resolved. BUN improved to 18 on 09/11/16. Continue free water flushes Monitor BMP periodically Stage I decubitus ulcer, sacral skin tear: Continue wound care. Frequent turning of patient. Candidal infection: buttocks affected with satellite lesions to the perineum. -S/p Nystatin and clotrimazole Weakness: Continue physical therapy Nursing staff to get patient up out of bed at least 3 times daily Palliative care evaluation According to palliative care notes family wishes aggressive management, they are expecting him to improve, go to a rehabilitation facility and then improve enough to go home. They are declining hospice. DVT prophylaxis: SCDs. Avoid chemical prophylaxis secondary to GI bleed. Discharge Planning 09/27: Per CM son states he can meet with [place] [facility] next week regarding father 's placement. Madeline Ortez Oct 04, 2016 11:06
[2016-10-04 20:00] VITALS: BP 91/53; PULSE 73; RESP 20; TEMP 96.8; O2SAT 95
[2016-10-04] MEDS: MIRTAZAPINE 15 MG TAB PEG SCH (21:00)
[2016-10-05] MEDS: MIDODRINE 5 MG TAB PO SCH ×3 (05:31→17:08)
[2016-10-05 08:00] VITALS: BP 118/80; PULSE 78; RESP 18; TEMP 98.2; O2SAT 96
[2016-10-05] MEDS: FREE WATER G-TUBE SCH (09:00)
[2016-10-05] MEDS: LANSOPRAZOLE SOLUTAB 30 MG TAB PEG SCH (10:01)
[2016-10-05] MEDS: ALLOPURINOL 100 MG TAB PEG SCH (10:01)
[2016-10-05] MEDS: NEOMYCIN/POLYMYXIN/BACITRACIN OINT 15 GM TUBE TOPICAL SCH ×2 (10:02→20:59)
[2016-10-05] MEDS: HYDROCORTISONE 1% CREAM 30 GM TOPICAL SCH ×2 (10:03→20:59)
--- NOTE | 2016-10-05 11:32 | HHI.PR ---
Subjective Remarks Follow-up for dementia. No acute complaints. Objective Vitals Vital Signs Date Time Temp Pulse Resp B/P Pulse Ox O2 Delivery O2 Flow Rate FiO2 10/05/16 08:00 98.2 78 18 118/80 96 10/04/16 20:00 96.8 73 20 91/53 95 I/O 10/04/16 10/04/16 10/04/16 10/05/16 10/05/16 10/05/16 07:00 15:00 23:00 07:00 15:00 23:00 Intake Total 0 ml 0 ml 2340 ml 460 ml Output Total 200 ml 350 ml 200 ml 300 ml Balance -200 ml -350 ml 2140 ml 160 ml Intake Oral 0 ml 0 ml Tube Feeding 1440 ml 360 ml Other 900 ml 100 ml Output Urine Total 200 ml 350 ml 200 ml 300 ml # Bowel Movements 2 1 1 Objective Remarks GENERAL: Elderly male in no apparent distress sleeping when I enter the room. CARDIOVASCULAR: Regular rate and rhythm. RESPIRATORY: No accessory muscle use. CTAB. GASTROINTESTINAL: Abdomen is soft, non-tender, nondistended. NEURO: Nods to questions, but does not speak aloud. Procedures None Urinary Catheter: Yes Assessment to: Continue Soto insert reason: Obstruction/Retention Date of Insertion: September 29, 2016 Vascular Central Line Catheter: No A/P Problem List: (1) Decreased urine output ICD Code: R34 Status: Acute (2) Prerenal azotemia ICD Code: R79.89 Status: Acute (3) Hematuria ICD Code: R31.9 Status: Acute Assessment and Plan Wound at suprapubic catheter site: Improved. Appears uninfected. Likely attributed to shearing from tubing. -Continue to apply antibiotic ointment and Telfa to site until healed and monitor area. Hematuria: Resolved. -Patient is not on anticoagulation. -Hemoglobin normal. -Creatinine is normal. -UA 4/5 with innumerable RBCs, but urine sample not grossly bloody. Urinary tract infection, recurrent: Urine culture positive for Proteus mirabilis and GBS on 01/20. Patient completed course of antibiotics. Abdominal pelvis CT 03/06 shows decompressed bladder with circumferential bladder wall thickening and intraluminal air possibly indicating cystitis, but the patient had been afebrile with normal WBC count. Urine culture 05/31 with Serratia marcescens, Pseudomonas, and Enterococcus faecalis. Patient was started on antibiotics. Repeat urine culture on 06/04 only reveals contaminants. Urine culture 08/07 with Enterococcus faecalis and Pseudomonas Aeruginosa similar to previous culture on 05/31. Patient remains afebrile. CBC with normal white blood cell count. Continue to change Soto monthly. 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 Monitor and treat only if symptomatic. Mild obstructive uropathy: Resolved. Appreciate urology recommendations. Suprapubic catheter to be changed monthly; last changed 09/29/16. Abdominal pelvis CT 03/06/16 shows resolution of right sided hydronephrosis. Upper GI bleeding with recurrent rectal bleeding: Resolved. Hemoglobin stable. GI reevaluated patient on 05/04. Presumed hemorrhoids, s/p Anusol HC for total of 2 weeks. Continue PPI. Protein calorie malnutrition: Improving Consulted dietitian who indicated that patient may be converted to bolus feeding Jevity 1.5 w/ bolus 1.5 cans (360ml) @ 0800 and 2000 and 1 can (240ml) @ 1100 , 1400 and 1700. Free Water Flush 100ml before and after each bolus feeding. Ensure Enlive tid and chocolate pudding tid. Patient desired to eat and speech therapy advised puree diet, thin liquids, but patient has not been eating. Tubular Stock Glass Bulb Machine Former suggested considering appetite stimulant. This was discussed with attending, but we do not believe this would be beneficial for patient and would add unnecessary risk to the patient. Will continue with tube feeds only. Dementia with inappropriate behavior, mood disorder improved Patient had inappropriate behavior which is resolved now. He has been very appropriate for a long time now. Patient has been hospitalized for similar events in 2015 Consulted psychiatry for further evaluation, who indicated that this is a frontal lobe dementia Risperdal 0.25 mg during the day, Risperdal 0.5 mg at night. Risperdal was discontinued per POA request. Continue Remeron Psychiatry was reconsulted and is ok with discontinuation of Risperdal. Seborrheic dermatitis: Significantly improved. S/p Ketoconazole 2% shampoo and hydrocortisone lotion. Continue hydrocortisone 1% cream bid. Chalazion: Nodule R upper eyelid. There is no evidence of preseptal cellulitis. -Warm compresses were applied but it was greater than 2 weeks without significant improvement. -Ophthalmology was consulted and evaluated patient on 03/26. S/p warm compresses and Tobradex 4 times a day OD x 2 weeks. Patient was intermittently compliant with eyedrops. -No worsening. Follow-up outpatient. Hypotension: Blood pressure labile. Continue Midodrine. Patient on max dose. Increase free water flushes as needed. Pre-renal azotemia: Resolved. BUN improved to 18 on 09/11/16. Continue free water flushes Monitor BMP periodically Stage I decubitus ulcer, sacral skin tear: Continue wound care. Frequent turning of patient. Candidal infection: buttocks affected with satellite lesions to the perineum. -S/p Nystatin and clotrimazole Weakness: Continue physical therapy Nursing staff to get patient up out of bed at least 3 times daily Palliative care evaluation According to palliative care notes family wishes aggressive management, they are expecting him to improve, go to a rehabilitation facility and then improve enough to go home. They are declining hospice. DVT prophylaxis: SCDs. Avoid chemical prophylaxis secondary to GI bleed. Discharge Planning 09/27: Per CM son states he can meet with [place] Rosario next week regarding father 's placement. Madeline Ortez Oct 05, 2016 11:31
[2016-10-05 20:00] VITALS: BP 117/71; PULSE 61; RESP 20; TEMP 96.7; O2SAT 98
[2016-10-05] MEDS: MIRTAZAPINE 15 MG TAB PEG SCH (20:58)
[2016-10-06] MEDS: MIDODRINE 5 MG TAB PO SCH ×3 (05:07→16:53)
[2016-10-06 08:00] VITALS: BP 120/70; PULSE 74; RESP 18; TEMP 98; O2SAT 95
[2016-10-06] MEDS: HYDROCORTISONE 1% CREAM 30 GM TOPICAL SCH ×2 (08:32→21:32)
[2016-10-06] MEDS: ALLOPURINOL 100 MG TAB PEG SCH (08:32)
[2016-10-06] MEDS: LANSOPRAZOLE SOLUTAB 30 MG TAB PEG SCH (08:32)
[2016-10-06] MEDS: NEOMYCIN/POLYMYXIN/BACITRACIN OINT 15 GM TUBE TOPICAL SCH ×2 (08:45→21:32)
[2016-10-06] MEDS: FREE WATER G-TUBE SCH (08:45)
--- NOTE | 2016-10-06 10:24 | HHI.PR ---
Subjective Remarks Follow-up for dementia. No acute complaints. Objective Vitals Vital Signs Date Time Temp Pulse Resp B/P Pulse Ox O2 Delivery O2 Flow Rate FiO2 10/05/16 20:00 96.7 61 20 117/71 98 I/O 10/05/16 10/05/16 10/05/16 10/06/16 10/06/16 10/06/16 07:00 15:00 23:00 07:00 15:00 23:00 Intake Total 460 ml 660 ml 340 ml Output Total 300 ml 901 ml 200 ml Balance 160 ml 660 ml -561 ml -200 ml Tube Feeding 360 ml 460 ml 240 ml Tube Irrigant 200 ml 100 ml Other 100 ml Output Urine Total 300 ml 900 ml 200 ml Stool Total 1 ml # Bowel Movements 1 Objective Remarks GENERAL: Elderly male in no apparent distress. SKIN: Minimal flaking skin to the face, but no erythematous patches. CARDIOVASCULAR: Regular rate and rhythm. RESPIRATORY: No accessory muscle use. CTAB. GASTROINTESTINAL: Normoactive bowel sounds on the R. Abdomen is soft, non-tender , nondistended. NEURO: Nods to questions, but does not speak aloud. Procedures None Urinary Catheter: Yes Assessment to: Continue Soto insert reason: Obstruction/Retention Date of Insertion: September 29, 2016 Vascular Central Line Catheter: No A/P Assessment and Plan Wound at suprapubic catheter site: Improved. Appears uninfected. Likely attributed to shearing from tubing. -Continue to apply antibiotic ointment and Telfa to site until healed and monitor area. Hematuria: Resolved. -Patient is not on anticoagulation. -Hemoglobin normal. -Creatinine is normal. -UA 4/5 with innumerable RBCs, but urine sample not grossly bloody. Urinary tract infection, recurrent: Urine culture positive for Proteus mirabilis and GBS on 01/20. Patient completed course of antibiotics. Abdominal pelvis CT 03/06 shows decompressed bladder with circumferential bladder wall thickening and intraluminal air possibly indicating cystitis, but the patient had been afebrile with normal WBC count. Urine culture 05/31 with Serratia marcescens, Pseudomonas, and Enterococcus faecalis. Patient was started on antibiotics. Repeat urine culture on 06/04 only reveals contaminants. Urine culture 4/5 with Enterococcus faecalis and Pseudomonas Aeruginosa similar to previous culture on 05/31. Patient remains afebrile. CBC with normal white blood cell count. Continue to change Soto monthly. 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 Monitor and treat only if symptomatic. Mild obstructive uropathy: Resolved. Appreciate urology recommendations. Suprapubic catheter to be changed monthly; last changed 09/29/16. Abdominal pelvis CT 03/06/16 shows resolution of right sided hydronephrosis. Upper GI bleeding with recurrent rectal bleeding: Resolved. Hemoglobin stable. GI reevaluated patient on 05/04. Presumed hemorrhoids, s/p Anusol HC for total of 2 weeks. Continue PPI. Protein calorie malnutrition: Improving Consulted dietitian who indicated that patient may be converted to bolus feeding Jevity 1.5 w/ bolus 1.5 cans (360ml) @ 0800 and 2000 and 1 can (240ml) @ 1100 , 1400 and 1700. Free Water Flush 100ml before and after each bolus feeding. Ensure Enlive tid and chocolate pudding tid. Patient desired to eat and speech therapy advised puree diet, thin liquids, but patient has not been eating. Steel Layer suggested considering appetite stimulant. This was discussed with attending, but we do not believe this would be beneficial for patient and would add unnecessary risk to the patient. Will continue with tube feeds only. Dementia with inappropriate behavior, mood disorder improved Patient had inappropriate behavior which is resolved now. He has been very appropriate for a long time now. Patient has been hospitalized for similar events in 2015 Consulted psychiatry for further evaluation, who indicated that this is a frontal lobe dementia Risperdal 0.25 mg during the day, Risperdal 0.5 mg at night. [facility]dal was discontinued per [facility] request. [facility] was reconsulted and is ok with discontinuation of Risperdal. Seborrheic dermatitis: Significantly improved. S/p Ketoconazole 2% shampoo and hydrocortisone lotion. Continue hydrocortisone 1% cream bid. Chalazion: Nodule R upper eyelid. There is no evidence of preseptal cellulitis. -Warm compresses were applied but it was greater than 2 weeks without significant improvement. -Ophthalmology was consulted and evaluated patient on 03/26. S/p warm compresses and Tobradex 4 times a day OD x 2 weeks. Patient was intermittently compliant with eyedrops. -No worsening. Follow-up outpatient. Hypotension: Blood pressure labile. Continue Midodrine. Patient on max dose. Increase free water flushes as needed. Pre-renal azotemia: Resolved. BUN improved to 18 on 09/11/16. Continue free water flushes Monitor BMP periodically Stage I decubitus ulcer, sacral skin tear: Continue wound care. Frequent turning of patient. Candidal infection: buttocks affected with satellite lesions to the perineum. -S/p Nystatin and clotrimazole Weakness: Continue physical therapy Nursing staff to get patient up out of bed at least 3 times daily Palliative care evaluation According to palliative care notes family wishes aggressive management, they are expecting him to improve, go to a rehabilitation facility and then improve enough to go home. They are declining hospice. DVT prophylaxis: SCDs. Avoid chemical prophylaxis secondary to GI bleed. Discharge Planning 09/27: Per CM son states he can meet with [place] Rosario next week regarding father 's placement. Madeline Ortez Oct 06, 2016 10:24
[2016-10-06 20:00] VITALS: BP 109/79; PULSE 62; RESP 19; TEMP 97.4; O2SAT 95
[2016-10-06] MEDS: MIRTAZAPINE 15 MG TAB PEG SCH (21:28)
[2016-10-07] MEDS: MIDODRINE 5 MG TAB PO SCH ×3 (07:18→17:34)
[2016-10-07] MEDS: LANSOPRAZOLE SOLUTAB 30 MG TAB PEG SCH (08:03)
[2016-10-07] MEDS: ALLOPURINOL 100 MG TAB PEG SCH (08:03)
[2016-10-07] MEDS: FREE WATER G-TUBE SCH (08:04)
[2016-10-07] MEDS: HYDROCORTISONE 1% CREAM 30 GM TOPICAL SCH ×2 (08:04→20:20)
[2016-10-07] MEDS: NEOMYCIN/POLYMYXIN/BACITRACIN OINT 15 GM TUBE TOPICAL SCH ×2 (08:04→20:20)
[2016-10-07 08:51] VITALS: BP 119/73; PULSE 82; RESP 18; TEMP 95.7; O2SAT 98
--- NOTE | 2016-10-07 10:50 | HHI.PR ---
Subjective Remarks Follow-up for dementia. No acute complaints. Objective Vitals Vital Signs Date Time Temp Pulse Resp B/P Pulse Ox O2 Delivery O2 Flow Rate FiO2 10/07/16 08:51 95.7 82 18 119/73 98 10/06/16 20:00 97.4 62 19 109/79 95 I/O 10/06/16 10/06/16 10/06/16 10/07/16 10/07/16 10/07/16 07:00 15:00 23:00 07:00 15:00 23:00 Intake Total 1740 ml 200 ml Output Total 200 ml 2 ml 1401 ml 700 ml Balance -200 ml -2 ml 339 ml -500 ml Tube Feeding 1440 ml Tube Irrigant 200 ml 200 ml Other 100 ml Output Urine Total 200 ml 1400 ml 700 ml Stool Total 2 ml 1 ml # Bowel Movements 1 Objective Remarks GENERAL: Elderly male in no apparent distress. SKIN: No erythematous patches or notable flaking to the face. CARDIOVASCULAR: Regular rate and rhythm. RESPIRATORY: No accessory muscle use. CTAB. GASTROINTESTINAL: Abdomen is soft, non-tender, nondistended. NEURO: Nods to questions, but does not speak aloud. Procedures None Urinary Catheter: No Date of Insertion: September 29, 2016 Vascular Central Line Catheter: No A/P Problem List: (1) Decreased urine output ICD Code: R34 Status: Acute (2) Prerenal azotemia ICD Code: R79.89 Status: Acute (3) Hematuria ICD Code: R31.9 Status: Acute Assessment and Plan Wound at suprapubic catheter site: Improved. Appears uninfected. Likely attributed to shearing from tubing. -Continue to apply antibiotic ointment and Telfa to site until healed and monitor area. Hematuria: Resolved. -Patient is not on anticoagulation. -Hemoglobin normal. -Creatinine is normal. -UA 4/5 with innumerable RBCs, but urine sample not grossly bloody. Urinary tract infection, recurrent: Urine culture positive for Proteus mirabilis and GBS on 01/20. Patient completed course of antibiotics. Abdominal pelvis CT 03/06 shows decompressed bladder with circumferential bladder wall thickening and intraluminal air possibly indicating cystitis, but the patient had been afebrile with normal WBC count. Urine culture 05/31 with Serratia marcescens, Pseudomonas, and Enterococcus faecalis. Patient was started on antibiotics. Repeat urine culture on 06/04 only reveals contaminants. Urine culture / with Enterococcus faecalis and Pseudomonas Aeruginosa similar to previous culture on 05/31. Patient remains afebrile. CBC with normal white blood cell count. Continue to change Soto monthly. 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 Monitor and treat only if symptomatic. Mild obstructive uropathy: Resolved. Appreciate urology recommendations. Suprapubic catheter to be changed monthly; last changed 09/29/16. Abdominal pelvis CT 03/06/16 shows resolution of right sided hydronephrosis. Upper GI bleeding with recurrent rectal bleeding: Resolved. Hemoglobin stable. GI reevaluated patient on 05/04. Presumed hemorrhoids, s/p Anusol HC for total of 2 weeks. Continue PPI. Protein calorie malnutrition: Improving Consulted dietitian who indicated that patient may be converted to bolus feeding Jevity 1.5 w/ bolus 1.5 cans (360ml) @ 0800 and 2000 and 1 can (240ml) @ 1100 , 1400 and 1700. Free Water Flush 100ml before and after each bolus feeding. Ensure Enlive tid and chocolate pudding tid. Patient desired to eat and speech therapy advised puree diet, thin liquids, but patient has not been eating. Apparatus Lineman suggested considering appetite stimulant. This was discussed with attending, but we do not believe this would be beneficial for patient and would add unnecessary risk to the patient. Will continue with tube feeds only. Dementia with inappropriate behavior, mood disorder improved Patient had inappropriate behavior which is resolved now. He has been very appropriate for a long time now. Patient has been hospitalized for similar events in 2015 Consulted psychiatry for further evaluation, who indicated that this is a frontal lobe dementia Risperdal 0.25 mg during the day, Risperdal 0.5 mg at night. Risperdal was discontinued per POA request. Continue Remeron Psychiatry was reconsulted and is ok with discontinuation of Risperdal. Seborrheic dermatitis: Significantly improved. S/p Ketoconazole 2% shampoo and hydrocortisone lotion. Continue hydrocortisone 1% cream bid. Chalazion: Nodule R upper eyelid. There is no evidence of preseptal cellulitis. -Warm compresses were applied but it was greater than 2 weeks without significant improvement. -Ophthalmology was consulted and evaluated patient on 03/26. S/p warm compresses and Tobradex 4 times a day OD x 2 weeks. Patient was intermittently compliant with eyedrops. -No worsening. Follow-up outpatient. Hypotension: Blood pressure labile. Continue Midodrine. Patient on max dose. Increase free water flushes as needed. Pre-renal azotemia: Resolved. BUN improved to 18 on 09/11/16. Continue free water flushes Monitor BMP periodically Stage I decubitus ulcer, sacral skin tear: Continue wound care. Frequent turning of patient. Candidal infection: buttocks affected with satellite lesions to the perineum. -S/p Nystatin and clotrimazole Weakness: Continue physical therapy Nursing staff to get patient up out of bed at least 3 times daily Palliative care evaluation According to palliative care notes family wishes aggressive management, they are expecting him to improve, go to a rehabilitation facility and then improve enough to go home. They are declining hospice. DVT prophylaxis: SCDs. Avoid chemical prophylaxis secondary to GI bleed. Discharge Planning 09/27: Per CM son states he can meet with [place] Rosario next week regarding father 's placement. CM checking if rat exterminator bed still available. Madeline Ortez Oct 07, 2016 10:50
[2016-10-07 20:00] VITALS: BP 123/87; PULSE 76; RESP 20; TEMP 97.5; O2SAT 98
[2016-10-07] MEDS: MIRTAZAPINE 15 MG TAB PEG SCH (20:17)
[2016-10-08] MEDS: MIDODRINE 5 MG TAB PO SCH ×3 (06:25→15:48)
[2016-10-08 08:00] VITALS: BP 128/81; PULSE 77; RESP 18; TEMP 97.6; O2SAT 94
[2016-10-08] MEDS: FREE WATER G-TUBE SCH (09:00)
[2016-10-08] MEDS: ALLOPURINOL 100 MG TAB PEG SCH (09:22)
[2016-10-08] MEDS: LANSOPRAZOLE SOLUTAB 30 MG TAB PEG SCH (09:22)
[2016-10-08] MEDS: NEOMYCIN/POLYMYXIN/BACITRACIN OINT 15 GM TUBE TOPICAL SCH (09:23)
--- NOTE | 2016-10-08 09:44 | HHI.PR ---
Subjective Remarks Patient seen and examined today for follow-up on generalized weakness, dementia. Patient appears in good spirits today. He has been in the thumbs up that everything is okay. Denies any new complaints. Patient states that he is going to get up and walk today. Objective Vitals Vital Signs Date Time Temp Pulse Resp B/P Pulse Ox O2 Delivery O2 Flow Rate FiO2 10/08/16 08:00 97.6 77 18 128/81 94 10/07/16 20:00 97.5 76 20 123/87 98 I/O 10/07/16 10/07/16 10/07/16 10/08/16 10/08/16 10/08/16 07:00 15:00 23:00 07:00 15:00 23:00 Intake Total 200 ml 560 ml 200 ml Output Total 700 ml 850 ml 250 ml Balance -500 ml -290 ml -50 ml Tube Feeding 360 ml Tube Irrigant 200 ml 200 ml 200 ml Output Urine Total 700 ml 850 ml 250 ml # Bowel Movements 1 1 Objective Remarks GENERAL: Well-developed, well-nourished, in no acute distress. Patient is asleep HEENT: Head is normocephalic without any lesions or masses noted. Facial features are symmetric. Eyes: Extraocular muscles are intact. Conjunctivae were clear. Correlate base scaling noted on chin and nasolabial folds NECK: Trachea midline no deviation. CARDIAC: Regular rhythm, regular rate. S1/S2 are heard. No murmurs gallops or rubs. LUNGS: Clear to auscultation bilaterally. No wheeze, rhonchi or rales. No use of accessory muscles on inspiration or expiration. ABDOMEN: Soft, nontender. Nondistended. Bowel sounds heard in all 4 quadrants. No organomegaly or masses. Negative rebound, negative guarding, suprapubic catheter in place, PEG tube noted EXTREMITIES: No edema, pulses are equal bilaterally. No cyanosis or clubbing NEUROLOGY: Mood and affect appear appropriate. Cranial nerves II through XII grossly intact. Moving all extremities Procedures None Urinary Catheter: Yes Assessment to: Continue Soto insert reason: Obstruction/Retention Date of Insertion: September 29, 2016 Vascular Central Line Catheter: No A/P Assessment and Plan Weakness: Continue physical therapy Nursing staff to get patient up out of bed at least 3 times daily Dementia with inappropriate behavior, mood disorder improved Patient has been hospitalized for similar events in 2015 Consulted psychiatry for further evaluation, who indicated that this is a frontal lobe dementia Risperdal discontinued at family's request Continue Remeron Parkinson's disease: Patient has dementia and resting tremor. Chronic, stable. GI bleed with presenting of Upper GI bleed, patient with intermittent rectal bleeding: Resolved Hemoglobin continues to remain stable GI was following and reevaluated on 05/04/16 Presumed hemorrhoids, status post Anusol HC for 2 weeks Continue PPI. Protein calorie malnutrition: Improving Consulted dietitian who indicated that patient may be converted to bolus feeding Jevity 1.5, 6 cans per day. 1.5 cans that 0800 and 2000, 1 can at 1100, 1400, 1700 Prealbumin level 24 Ensure Enlive 3 times a day since pudding 3 times a day Excoriation noted around PEG tube, resolved Hypotension with episodes of hypertension: Stable Blood pressure labile. Continue monitor blood pressure Continue Midodrine. Mild obstructive uropathy: Resolved. Appreciate urology recommendations. Suprapubic catheter in place, improved after replacement of Soto Abdominal pelvis CT 03/06/16 shows resolution of right sided hydronephrosis. 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 Stage I decubitus ulcer, sacral skin tear: Continue wound care. Seborrhea dermatitis Hydrocortisone cream for 2 weeks Palliative care evaluation According to palliative care notes. Family wishes aggressive management, they are expecting him to improve, go to a rehabilitation facility and then improve enough to go home. They are deferring hospice. DVT prophylaxis: SCDs. Avoid chemical prophylaxis secondary to GI bleed. Records reviewed, no change in clinical status or treatment plan Discharge Planning Discharge planning per case management. Case management still trying to reach out to son to help with nursing facilities for acceptance. Jaguar Walker Oct 08, 2016 09:44
[2016-10-08 20:00] VITALS: BP 119/77; PULSE 67; RESP 20; TEMP 96.5; O2SAT 94
[2016-10-08] MEDS: MIRTAZAPINE 15 MG TAB PEG SCH (20:49)
[2016-10-09] MEDS: MIDODRINE 5 MG TAB PO SCH ×3 (06:13→17:10)
[2016-10-09 08:38] VITALS: BP 108/83; PULSE 109; RESP 19; TEMP 96; O2SAT 93
[2016-10-09] MEDS: FREE WATER G-TUBE SCH (09:00)
[2016-10-09] MEDS: ALLOPURINOL 100 MG TAB PEG SCH (09:23)
[2016-10-09] MEDS: LANSOPRAZOLE SOLUTAB 30 MG TAB PEG SCH (09:23)
--- NOTE | 2016-10-09 11:34 | HHI.PR ---
Subjective Remarks Patient seen and examined today for follow-up on generalized weakness, dementia. Patient not indicate any compartment. Does give me a thumbs up. No change in clinical status Objective Vitals Vital Signs Date Time Temp Pulse Resp B/P Pulse Ox O2 Delivery O2 Flow Rate FiO2 10/09/16 08:38 96.0 109 19 108/83 93 10/08/16 20:00 96.5 67 20 119/77 94 I/O 10/08/16 10/08/16 10/08/16 10/09/16 10/09/16 10/09/16 07:00 15:00 23:00 07:00 15:00 23:00 Intake Total 200 ml 1180 ml Output Total 250 ml 350 ml 250 ml 300 ml Balance -50 ml -350 ml 930 ml -300 ml Tube Feeding 1080 ml Tube Irrigant 200 ml Other 100 ml Output Urine Total 250 ml 350 ml 250 ml 300 ml # Bowel Movements 1 1 3 1 Objective Remarks GENERAL: Well-developed, well-nourished, in no acute distress. Patient is asleep HEENT: Head is normocephalic without any lesions or masses noted. Facial features are symmetric. Eyes: Extraocular muscles are intact. Conjunctivae were clear. Correlate base scaling noted on chin and nasolabial folds NECK: Trachea midline no deviation. CARDIAC: Regular rhythm, regular rate. S1/S2 are heard. No murmurs gallops or rubs. LUNGS: Clear to auscultation bilaterally. No wheeze, rhonchi or rales. No use of accessory muscles on inspiration or expiration. ABDOMEN: Soft, nontender. Nondistended. Bowel sounds heard in all 4 quadrants. No organomegaly or masses. Negative rebound, negative guarding, suprapubic catheter in place, PEG tube noted EXTREMITIES: No edema, pulses are equal bilaterally. No cyanosis or clubbing NEUROLOGY: Mood and affect appear appropriate. Cranial nerves II through XII grossly intact. Moving all extremities Procedures None Urinary Catheter: No Date of Insertion: September 29, 2016 Vascular Central Line Catheter: No A/P Assessment and Plan Weakness: Continue physical therapy Nursing staff to get patient up out of bed at least 3 times daily Dementia with inappropriate behavior, mood disorder improved Patient has been hospitalized for similar events in 2015 Consulted psychiatry for further evaluation, who indicated that this is a frontal lobe dementia Risperdal discontinued at family's request Continue Remeron Parkinson's disease: Patient has dementia and resting tremor. Chronic, stable. GI bleed with presenting of Upper GI bleed, patient with intermittent rectal bleeding: Resolved Hemoglobin continues to remain stable GI was following and reevaluated on 05/04/16 Presumed hemorrhoids, status post Anusol HC for 2 weeks Continue PPI. Protein calorie malnutrition: Improving Consulted dietitian who indicated that patient may be converted to bolus feeding Jevity 1.5, 6 cans per day. 1.5 cans that 0800 and 2000, 1 can at 1100, 1400, 1700 Prealbumin level 24 Ensure Enlive 3 times a day since pudding 3 times a day Excoriation noted around PEG tube, resolved Hypotension with episodes of hypertension: Stable Blood pressure labile. Continue monitor blood pressure Continue Midodrine. Mild obstructive uropathy: Resolved. Appreciate urology recommendations. Suprapubic catheter in place, improved after replacement of Soto Abdominal pelvis CT 03/06/16 shows resolution of right sided hydronephrosis. Recurrent urinary tract infection with likely colonized Enterococcus faecalis and Pseudomonas Replaced Soto 09/29/16, continue changed monthly Patient with urine cultures with different organisms, likely secondary to suprapubic catheter, continue monitor and treat only if symptomatic Urine culture 09/29 indicates [id number] colonies of mixed leticia Elevated BUN, stable Continue fluid flushes via PEG tube to avoid dehydration. Stage I decubitus ulcer, sacral skin tear: Continue wound care. Seborrhea dermatitis Hydrocortisone cream for 2 weeks Palliative care evaluation According to palliative care notes. Family wishes aggressive management, they are expecting him to improve, go to a rehabilitation facility and then improve enough to go home. They are deferring hospice. DVT prophylaxis: SCDs. Avoid chemical prophylaxis secondary to GI bleed. Records reviewed, no change in clinical status or treatment plan Discharge Planning Discharge planning per case management. Case management still trying to reach out to son to help with nursing facilities for acceptance. Jaguar Walker Oct 09, 2016 11:34
[2016-10-09 20:00] VITALS: BP 117/75; PULSE 82; RESP 19; TEMP 96.2; O2SAT 97
[2016-10-09] MEDS: MIRTAZAPINE 15 MG TAB PEG SCH (21:02)
[2016-10-10] MEDS: MIDODRINE 5 MG TAB PO SCH ×3 (06:09→17:21)
[2016-10-10] MEDS: ALLOPURINOL 100 MG TAB PEG SCH (07:47)
[2016-10-10] MEDS: LANSOPRAZOLE SOLUTAB 30 MG TAB PEG SCH (07:47)
[2016-10-10] MEDS: FREE WATER G-TUBE SCH (07:48)
[2016-10-10 08:00] VITALS: BP 90/51; PULSE 67; RESP 18; TEMP 98.5; O2SAT 97
--- NOTE | 2016-10-10 09:55 | HHI.PR ---
Subjective Remarks Patient seen and examined today for follow-up on weakness and dementia. Patient was sleeping upon entering the room. He is not indicating any new abnormalities. No change in clinical status. Objective Vitals Vital Signs Date Time Temp Pulse Resp B/P Pulse Ox O2 Delivery O2 Flow Rate FiO2 10/10/16 08:00 98.5 67 18 90/51 97 10/09/16 20:00 96.2 82 19 117/75 97 I/O 10/09/16 10/09/16 10/09/16 10/10/16 10/10/16 10/10/16 07:00 15:00 23:00 07:00 15:00 23:00 Intake Total 1280 ml 360 ml 540 ml Output Total 300 ml 475 ml 200 ml Balance -300 ml 1280 ml -115 ml 340 ml Tube Feeding 1080 ml 360 ml 540 ml Other 200 ml Output Urine Total 300 ml 475 ml 200 ml # Bowel Movements 1 2 Objective Remarks GENERAL: Well-developed, well-nourished, in no acute distress. HEENT: Head is normocephalic without any lesions or masses noted. Facial features are symmetric. Eyes: Extraocular muscles are intact. Conjunctivae were clear. NECK: Trachea midline no deviation. CARDIAC: Regular rhythm, regular rate. S1/S2 are heard. No murmurs gallops or rubs. LUNGS: Clear to auscultation bilaterally. No wheeze, rhonchi or rales. No use of accessory muscles on inspiration or expiration. ABDOMEN: Soft, nontender. Nondistended. Bowel sounds heard in all 4 quadrants. No organomegaly or masses. Negative rebound, negative guarding, suprapubic catheter in place, PEG tube noted EXTREMITIES: No edema, pulses are equal bilaterally. No cyanosis or clubbing NEUROLOGY: Mood and affect appear appropriate. Cranial nerves II through XII grossly intact. Moving all extremities Procedures None Urinary Catheter: Yes Assessment to: Continue Soto insert reason: Obstruction/Retention Date of Insertion: September 29, 2016 Vascular Central Line Catheter: No A/P Assessment and Plan Weakness: Continue physical therapy Nursing staff to get patient up out of bed at least 3 times daily Dementia with inappropriate behavior, mood disorder improved Patient has been hospitalized for similar events in 2015 Consulted psychiatry for further evaluation, who indicated that this is a frontal lobe dementia Risperdal discontinued at family's request Continue Remeron Parkinson's disease: Patient has dementia and resting tremor. Chronic, stable. GI bleed with presenting of Upper GI bleed, patient with intermittent rectal bleeding: Resolved Hemoglobin continues to remain stable GI was following and reevaluated on 05/04/16 Presumed hemorrhoids, status post Anusol HC for 2 weeks Continue PPI. Protein calorie malnutrition: Improving Consulted dietitian who indicated that patient may be converted to bolus feeding Jevity 1.5, 6 cans per day. 1.5 cans that 0800 and 2000, 1 can at 1100, 1400, 1700 Prealbumin level 24 Ensure Enlive 3 times a day since pudding 3 times a day Excoriation noted around PEG tube, resolved Hypotension with episodes of hypertension: Stable Blood pressure labile. Continue monitor blood pressure Continue Midodrine. Mild obstructive uropathy: Resolved. Appreciate urology recommendations. Suprapubic catheter in place, improved after replacement of Soto Abdominal pelvis CT 03/06/16 shows resolution of right sided hydronephrosis. Recurrent urinary tract infection with likely colonized Enterococcus faecalis and Pseudomonas Replaced Soto 09/29/16, continue changed monthly Patient with urine cultures with different organisms, likely secondary to suprapubic catheter, continue monitor and treat only if symptomatic Urine culture 09/29 indicates [id number] colonies of mixed leticia Elevated BUN, stable Continue fluid flushes via PEG tube to avoid dehydration. Stage I decubitus ulcer, sacral skin tear: Resolved Continue wound care. Seborrhea dermatitis, resolved Status post Hydrocortisone cream for 2 weeks Palliative care evaluation According to palliative care notes. Family wishes aggressive management, they are expecting him to improve, go to a rehabilitation facility and then improve enough to go home. They are deferring hospice. DVT prophylaxis: SCDs. Avoid chemical prophylaxis secondary to GI bleed. Records reviewed, no change in clinical status or treatment plan Discharge Planning Discharge planning per case management. Case management still trying to reach out to son to help with nursing facilities for acceptance. Jaguar Walker Oct 10, 2016 09:55
[2016-10-10 20:00] VITALS: BP 102/63; PULSE 76; RESP 16; TEMP 97.6; O2SAT 96
[2016-10-10] MEDS: MIRTAZAPINE 15 MG TAB PEG SCH (20:32)
[2016-10-11] MEDS: MIDODRINE 5 MG TAB PO SCH ×3 (06:11→18:35)
[2016-10-11 08:00] VITALS: BP 101/68; PULSE 80; RESP 18; TEMP 98; O2SAT 95
[2016-10-11] MEDS: LANSOPRAZOLE SOLUTAB 30 MG TAB PEG SCH (08:20)
[2016-10-11] MEDS: FREE WATER G-TUBE SCH (08:20)
[2016-10-11] MEDS: ALLOPURINOL 100 MG TAB PEG SCH (08:20)
--- NOTE | 2016-10-11 09:00 | HHI.PR ---
Subjective Remarks Patient seen and examined today for follow-up on generalized weakness and dementia. Patient does not indicate any new complaints today. He gives me the thumbs up. He states that he will get out of bed today. Objective Vitals Vital Signs Date Time Temp Pulse Resp B/P Pulse Ox O2 Delivery O2 Flow Rate FiO2 10/10/16 20:00 97.6 76 16 102/63 96 I/O 10/10/16 10/10/16 10/10/16 10/11/16 10/11/16 10/11/16 07:00 15:00 23:00 07:00 15:00 23:00 Intake Total 540 ml 1140 ml Output Total 200 ml 300 ml 150 ml 300 ml Balance 340 ml 840 ml -150 ml -300 ml Tube Feeding 540 ml 840 ml Other 300 ml Output Urine Total 200 ml 300 ml 150 ml 300 ml # Bowel Movements 2 0 1 Objective Remarks GENERAL: Well-developed, well-nourished, in no acute distress. HEENT: Head is normocephalic without any lesions or masses noted. Facial features are symmetric. Eyes: Extraocular muscles are intact. Conjunctivae were clear. NECK: Trachea midline no deviation. CARDIAC: Regular rhythm, regular rate. S1/S2 are heard. No murmurs gallops or rubs. LUNGS: Clear to auscultation bilaterally. No wheeze, rhonchi or rales. No use of accessory muscles on inspiration or expiration. ABDOMEN: Soft, nontender. Nondistended. Bowel sounds heard in all 4 quadrants. No organomegaly or masses. Negative rebound, negative guarding, suprapubic catheter in place, PEG tube noted EXTREMITIES: No edema, pulses are equal bilaterally. No cyanosis or clubbing NEUROLOGY: Mood and affect appear appropriate. Cranial nerves II through XII grossly intact. Moving all extremities Procedures None Urinary Catheter: Yes (suprapubic catheter) Assessment to: Continue Soto insert reason: Obstruction/Retention Date of Insertion: September 29, 2016 Vascular Central Line Catheter: No A/P Assessment and Plan Weakness: Continue physical therapy Nursing staff to get patient up out of bed at least 3 times daily Dementia with inappropriate behavior, mood disorder improved Patient has been hospitalized for similar events in 2015 Consulted psychiatry for further evaluation, who indicated that this is a frontal lobe dementia Risperdal discontinued at family's request Continue Remeron Parkinson's disease: Patient has dementia and resting tremor. Chronic, stable. GI bleed with presenting of Upper GI bleed, patient with intermittent rectal bleeding: Resolved Hemoglobin continues to remain stable GI was following and reevaluated on 05/04/16 Presumed hemorrhoids, status post Anusol HC for 2 weeks Continue PPI. Protein calorie malnutrition: Improving Consulted dietitian who indicated that patient may be converted to bolus feeding Jevity 1.5, 6 cans per day. 1.5 cans that 0800 and 2000, 1 can at 1100, 1400, 1700 Prealbumin level 24 Ensure Enlive 3 times a day since pudding 3 times a day Excoriation noted around PEG tube, resolved Hypotension with episodes of hypertension: Stable Blood pressure labile. Continue monitor blood pressure Continue Midodrine. Mild obstructive uropathy: Resolved. Appreciate urology recommendations. Suprapubic catheter in place, improved after replacement of Soto Abdominal pelvis CT 03/06/16 shows resolution of right sided hydronephrosis. Recurrent urinary tract infection with likely colonized Enterococcus faecalis and Pseudomonas Replaced Soto 09/29/16, continue changed monthly Patient with urine cultures with different organisms, likely secondary to suprapubic catheter, continue monitor and treat only if symptomatic Urine culture 09/29 indicates [id number] colonies of mixed leticia Elevated BUN, stable Continue fluid flushes via PEG tube to avoid dehydration. Stage I decubitus ulcer, sacral skin tear: Resolved Continue wound care. Seborrhea dermatitis, resolved Status post Hydrocortisone cream for 2 weeks Palliative care evaluation According to palliative care notes. Family wishes aggressive management, they are expecting him to improve, go to a rehabilitation facility and then improve enough to go home. They are deferring hospice. DVT prophylaxis: SCDs. Avoid chemical prophylaxis secondary to GI bleed. Records reviewed, no change in clinical status or treatment plan Discharge Planning Discharge planning per case management. Case management still trying to reach out to son to help with nursing facilities for acceptance. Jaguar Walker Oct 11, 2016 09:00
[2016-10-11 20:00] VITALS: BP 119/70; PULSE 65; RESP 19; TEMP 97.1; O2SAT 97
[2016-10-11] MEDS: MIRTAZAPINE 15 MG TAB PEG SCH (21:14)
[2016-10-12] MEDS: MIDODRINE 5 MG TAB PO SCH ×3 (06:10→17:45)
[2016-10-12 08:00] VITALS: BP 108/69; PULSE 73; RESP 18; TEMP 98.2; O2SAT 95
[2016-10-12] MEDS: FREE WATER G-TUBE SCH (08:08)
[2016-10-12] MEDS: ALLOPURINOL 100 MG TAB PEG SCH (08:08)
[2016-10-12] MEDS: LANSOPRAZOLE SOLUTAB 30 MG TAB PEG SCH (08:08)
--- NOTE | 2016-10-12 10:47 | HHI.PR ---
Subjective Remarks Patient seen and examined today for follow-up on weakness, dementia. Patient denies any new complaints. Patient does not know if he got out of bed yesterday or not. Objective Vitals Vital Signs Date Time Temp Pulse Resp B/P Pulse Ox O2 Delivery O2 Flow Rate FiO2 10/12/16 08:00 98.2 73 18 108/69 95 10/11/16 20:00 97.1 65 19 119/70 97 I/O 10/11/16 10/11/16 10/11/16 10/12/16 10/12/16 10/12/16 07:00 15:00 23:00 07:00 15:00 23:00 Intake Total 1397 ml Output Total 300 ml 300 ml 200 ml 150 ml Balance -300 ml -300 ml -200 ml 1247 ml Tube Feeding 1122 ml Other 275 ml Output Urine Total 300 ml 300 ml 200 ml 150 ml # Bowel Movements 1 2 Objective Remarks GENERAL: Well-developed, well-nourished, in no acute distress. HEENT: Head is normocephalic without any lesions or masses noted. Facial features are symmetric. Eyes: Extraocular muscles are intact. Conjunctivae were clear. NECK: Trachea midline no deviation. CARDIAC: Regular rhythm, regular rate. S1/S2 are heard. No murmurs gallops or rubs. LUNGS: Clear to auscultation bilaterally. No wheeze, rhonchi or rales. No use of accessory muscles on inspiration or expiration. ABDOMEN: Soft, nontender. Nondistended. Bowel sounds heard in all 4 quadrants. No organomegaly or masses. Negative rebound, negative guarding, suprapubic catheter in place, PEG tube noted EXTREMITIES: No edema, pulses are equal bilaterally. No cyanosis or clubbing NEUROLOGY: Mood and affect appear appropriate. Cranial nerves II through XII grossly intact. Moving all extremities Procedures None Urinary Catheter: Yes Assessment to: Continue Soto insert reason: Obstruction/Retention Date of Insertion: September 29, 2016 Vascular Central Line Catheter: No A/P Assessment and Plan Weakness: Continue physical therapy Nursing staff to get patient up out of bed at least 3 times daily Dementia with inappropriate behavior, mood disorder improved Patient has been hospitalized for similar events in 2015 Consulted psychiatry for further evaluation, who indicated that this is a frontal lobe dementia Risperdal discontinued at family's request Continue Remeron Parkinson's disease: Patient has dementia and resting tremor. Chronic, stable. GI bleed with presenting of Upper GI bleed, patient with intermittent rectal bleeding: Resolved Hemoglobin continues to remain stable GI was following and reevaluated on 05/04/16 Presumed hemorrhoids, status post Anusol HC for 2 weeks Continue PPI. Protein calorie malnutrition: Improving Consulted dietitian who indicated that patient may be converted to bolus feeding Jevity 1.5, 6 cans per day. 1.5 cans that 0800 and 2000, 1 can at 1100, 1400, 1700 Prealbumin level 24 Ensure Enlive 3 times a day since pudding 3 times a day Excoriation noted around PEG tube, resolved Hypotension with episodes of hypertension: Stable Continue monitor blood pressure Continue Midodrine. Mild obstructive uropathy: Resolved. Appreciate urology recommendations. Suprapubic catheter in place, improved after replacement of Soto Abdominal pelvis CT 03/06/16 shows resolution of right sided hydronephrosis. Recurrent urinary tract infection with likely colonized Enterococcus faecalis and Pseudomonas Replaced Soto 09/29/16, continue changed monthly Patient with urine cultures with different organisms, likely secondary to suprapubic catheter, continue monitor and treat only if symptomatic Urine culture 09/29 indicates [id number] colonies of mixed leticia Elevated BUN, stable Continue fluid flushes via PEG tube to avoid dehydration. Stage I decubitus ulcer, sacral skin tear: Resolved Continue wound care. Seborrhea dermatitis, resolved Status post Hydrocortisone cream for 2 weeks Palliative care evaluation According to palliative care notes. Family wishes aggressive management, they are expecting him to improve, go to a rehabilitation facility and then improve enough to go home. They are deferring hospice. DVT prophylaxis: SCDs. Avoid chemical prophylaxis secondary to GI bleed. Records reviewed, no change in clinical status or treatment plan Discharge Planning Discharge planning per case management. Case management still trying to reach out to son to help with nursing facilities for acceptance. Jaguar Walker Oct 12, 2016 10:47
[2016-10-12 20:00] VITALS: BP 100/65; PULSE 80; RESP 24; TEMP 99.2; O2SAT 95
[2016-10-12] MEDS: MIRTAZAPINE 15 MG TAB PEG SCH (20:39)
[2016-10-13 05:29] LABS: POTASSIUM 4.2 MEQ/L (3.5-5.1)
[2016-10-13 05:32] LABS: BICARBONATE 31.5 MEQ/L (21.0-32.0); MAGNESIUM 2.3 MG/DL (1.5-2.5)
[2016-10-13 05:48] LABS: AUTOMATED NEUTROPHIL # 4.2 TH/MM3 (1.8-7.7); BASOPHIL % 0.5 % (0.0-2.0); EOSINOPHIL # 0.5 TH/MM3 (0-0.4); EOSINOPHIL % 5.6 % (0.0-4.0); HEMATOCRIT 43.4 % (39.0-51.0); LYMPH % 37.5 % (9.0-44.0); LYMPHOCYTE # 3.1 TH/MM3 (1.0-4.8); MEAN CELL VOLUME 88.2 FL (80.0-100.0); MEAN CORPUSCULAR HEMOGLOBIN 28.4 PG (27.0-34.0); MEAN CORPUSCULAR HGB CONC 32.2 % (32.0-36.0); MONO % 6.6 % (0.0-8.0); NEUT % 49.8 % (16.0-70.0); PLATELET COUNT 208 TH/MM3 (150-450); RED BLOOD COUNT 4.92 MIL/MM3 (4.50-5.90); RED CELL DISTRIBUTION WIDTH 15.9 % (11.6-17.2); WHITE BLOOD COUNT 8.3 TH/MM3 (4.0-11.0)
[2016-10-13 05:51] LABS: HEMO FLAGS AUTO DIFF
[2016-10-13] MEDS: MIDODRINE 5 MG TAB PO SCH ×3 (06:04→17:12)
[2016-10-13 06:18] LABS: PLATELET ESTIMATE SMEAR NORMAL (NORMAL); PLATELET MORPHOLOGY NORMAL (NORMAL); SCAN/DIFF AUTO DIFF CONFIRMED
[2016-10-13 08:00] VITALS: BP 112/74; PULSE 66; RESP 18; TEMP 97.9; O2SAT 94
[2016-10-13] MEDS: ALLOPURINOL 100 MG TAB PEG SCH (08:59)
[2016-10-13] MEDS: FREE WATER G-TUBE SCH (09:00)
[2016-10-13] MEDS: LANSOPRAZOLE SOLUTAB 30 MG TAB PEG SCH (09:00)
--- NOTE | 2016-10-13 11:31 | HHI.PR ---
Subjective Remarks Patient seen and examined today for weakness and dementia. Patient appears in good spirits today. Not indicating any new complaints. Objective Vitals Vital Signs Date Time Temp Pulse Resp B/P Pulse Ox O2 Delivery O2 Flow Rate FiO2 10/13/16 08:00 97.9 66 18 112/74 94 10/12/16 20:00 99.2 80 24 100/65 95 I/O 10/12/16 10/12/16 10/12/16 10/13/16 10/13/16 10/13/16 07:00 15:00 23:00 07:00 15:00 23:00 Intake Total 1397 ml 410 ml 540 ml Output Total 200 ml 150 ml 200 ml 350 ml Balance -200 ml 1247 ml 210 ml 190 ml Intake Oral 0 ml 0 ml Tube Feeding 1122 ml 360 ml 540 ml Other 275 ml 50 ml Output Urine Total 200 ml 150 ml 200 ml 350 ml # Bowel Movements 2 1 1 0 Result Diagram: 10/13/16 0455 10/13/16 0455 Objective Remarks GENERAL: Well-developed, well-nourished, in no acute distress. HEENT: Head is normocephalic without any lesions or masses noted. Facial features are symmetric. Eyes: Extraocular muscles are intact. Conjunctivae were clear. NECK: Trachea midline no deviation. CARDIAC: Regular rhythm, regular rate. S1/S2 are heard. No murmurs gallops or rubs. LUNGS: Clear to auscultation bilaterally. No wheeze, rhonchi or rales. No use of accessory muscles on inspiration or expiration. ABDOMEN: Soft, nontender. Nondistended. Bowel sounds heard in all 4 quadrants. No organomegaly or masses. Negative rebound, negative guarding, suprapubic catheter in place, PEG tube noted EXTREMITIES: No edema, pulses are equal bilaterally. No cyanosis or clubbing NEUROLOGY: Mood and affect appear appropriate. Cranial nerves II through XII grossly intact. Moving all extremities Procedures None Urinary Catheter: Yes Assessment to: Continue Soto insert reason: Obstruction/Retention Date of Insertion: September 29, 2016 A/P Assessment and Plan Weakness: Continue physical therapy Nursing staff to get patient up out of bed at least 3 times daily Dementia with inappropriate behavior, mood disorder improved Patient has been hospitalized for similar events in 2015 Consulted psychiatry for further evaluation, who indicated that this is a frontal lobe dementia Risperdal discontinued at family's request Continue Remeron Parkinson's disease: Patient has dementia and resting tremor. Chronic, stable. GI bleed with presenting of Upper GI bleed, patient with intermittent rectal bleeding: Resolved Hemoglobin continues to remain stable GI was following and reevaluated on 05/04/16 Presumed hemorrhoids, status post Anusol HC for 2 weeks Continue PPI. Protein calorie malnutrition: Improving Consulted dietitian who indicated that patient may be converted to bolus feeding Jevity 1.5, 6 cans per day. 1.5 cans that 0800 and 2000, 1 can at 1100, 1400, 1700 Prealbumin level 24 Ensure Enlive 3 times a day since pudding 3 times a day Excoriation noted around PEG tube, resolved Hypotension with episodes of hypertension: Stable Continue monitor blood pressure Continue Midodrine. Mild obstructive uropathy: Resolved. Appreciate urology recommendations. Suprapubic catheter in place, improved after replacement of Soto Abdominal pelvis CT 03/06/16 shows resolution of right sided hydronephrosis. Recurrent urinary tract infection with likely colonized Enterococcus faecalis and Pseudomonas Replaced Soto 09/29/16, continue changed monthly Patient with urine cultures with different organisms, likely secondary to suprapubic catheter, continue monitor and treat only if symptomatic Urine culture 09/29 indicates [id number] colonies of mixed leticia Elevated BUN, stable Continue fluid flushes via PEG tube to avoid dehydration. Stage I decubitus ulcer, sacral skin tear: Resolved Continue wound care. Seborrhea dermatitis, resolved Status post Hydrocortisone cream for 2 weeks Palliative care evaluation According to palliative care notes. Family wishes aggressive management, they are expecting him to improve, go to a rehabilitation facility and then improve enough to go home. They are deferring hospice. DVT prophylaxis: SCDs. Avoid chemical prophylaxis secondary to GI bleed. Records reviewed, no change in clinical status or treatment plan Discharge Planning Discharge planning per case management. Case management still trying to reach out to son to help with nursing facilities for acceptance. Jaguar Walker Oct 13, 2016 11:31
[2016-10-13 20:00] VITALS: BP 105/63; PULSE 83; RESP 24; TEMP 97.5; O2SAT 94
[2016-10-13] MEDS: MIRTAZAPINE 15 MG TAB PEG SCH (20:22)
[2016-10-14] MEDS: MIDODRINE 5 MG TAB PO SCH ×3 (06:02→16:36)
[2016-10-14 08:35] VITALS: BP 111/76; PULSE 58; RESP 19; TEMP 95.1; O2SAT 97
[2016-10-14] MEDS: LANSOPRAZOLE SOLUTAB 30 MG TAB PEG SCH (08:37)
[2016-10-14] MEDS: ALLOPURINOL 100 MG TAB PEG SCH (08:38)
[2016-10-14] MEDS: FREE WATER G-TUBE SCH (08:38)
--- NOTE | 2016-10-14 11:31 | HHI.PR ---
Subjective Remarks Patient is examined today for follow-up on weakness and dementia. Patient not indicate he has any new complaints. No change in clinical status. Objective Vitals Vital Signs Date Time Temp Pulse Resp B/P Pulse Ox O2 Delivery O2 Flow Rate FiO2 10/14/16 08:35 95.1 58 19 111/76 97 10/13/16 20:00 97.5 83 24 105/63 94 I/O 10/13/16 10/13/16 10/13/16 10/14/16 10/14/16 10/14/16 07:00 15:00 23:00 07:00 15:00 23:00 Intake Total 540 ml 1640 ml 440 ml 0 ml Output Total 350 ml 700 ml 800 ml 525 ml 0 ml Balance 190 ml 940 ml -360 ml -525 ml 0 ml Intake Oral 0 ml 0 ml Tube Feeding 540 ml 840 ml 240 ml Other 800 ml 200 ml Output Urine Total 350 ml 700 ml 800 ml 525 ml Tube Feeding Residual Discard 0 ml # Bowel Movements 0 0 2 1 Result Diagram: 10/13/16 0455 10/13/16 0455 Objective Remarks GENERAL: Well-developed, well-nourished, in no acute distress. HEENT: Head is normocephalic without any lesions or masses noted. Facial features are symmetric. Eyes: Extraocular muscles are intact. Conjunctivae were clear. NECK: Trachea midline no deviation. CARDIAC: Regular rhythm, regular rate. S1/S2 are heard. No murmurs gallops or rubs. LUNGS: Clear to auscultation bilaterally. No wheeze, rhonchi or rales. No use of accessory muscles on inspiration or expiration. ABDOMEN: Soft, nontender. Nondistended. Bowel sounds heard in all 4 quadrants. No organomegaly or masses. Negative rebound, negative guarding, suprapubic catheter in place, PEG tube noted EXTREMITIES: No edema, pulses are equal bilaterally. No cyanosis or clubbing NEUROLOGY: Mood and affect appear appropriate. Cranial nerves II through XII grossly intact. Moving all extremities Procedures None Urinary Catheter: Yes (suprapubic catheter) Assessment to: Continue Date of Insertion: September 29, 2016 Vascular Central Line Catheter: No A/P Assessment and Plan Weakness: Continue physical therapy Nursing staff to get patient up out of bed at least 3 times daily Dementia with inappropriate behavior, mood disorder improved Patient has been hospitalized for similar events in 2015 Consulted psychiatry for further evaluation, who indicated that this is a frontal lobe dementia Risperdal discontinued at family's request Continue Remeron Parkinson's disease: Patient has dementia and resting tremor. Chronic, stable. GI bleed with presenting of Upper GI bleed, patient with intermittent rectal bleeding: Resolved Hemoglobin continues to remain stable GI was following and reevaluated on 05/04/16 Presumed hemorrhoids, status post Anusol HC for 2 weeks Continue PPI. Protein calorie malnutrition: Improving Consulted dietitian who indicated that patient may be converted to bolus feeding Jevity 1.5, 6 cans per day. 1.5 cans that 0800 and 2000, 1 can at 1100, 1400, 1700 Prealbumin level 24 Ensure Enlive 3 times a day since pudding 3 times a day Excoriation noted around PEG tube, resolved Hypotension with episodes of hypertension: Stable Continue monitor blood pressure Continue Midodrine. Mild obstructive uropathy: Resolved. Appreciate urology recommendations. Suprapubic catheter in place, improved after replacement of Soto Abdominal pelvis CT 03/06/16 shows resolution of right sided hydronephrosis. 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 Stage I decubitus ulcer, sacral skin tear: Resolved Continue wound care. Seborrhea dermatitis, resolved Status post Hydrocortisone cream for 2 weeks Palliative care evaluation According to palliative care notes. Family wishes aggressive management, they are expecting him to improve, go to a rehabilitation facility and then improve enough to go home. They are deferring hospice. DVT prophylaxis: SCDs. Avoid chemical prophylaxis secondary to GI bleed. Records reviewed, no change in clinical status or treatment plan Discharge Planning Discharge planning per case management. Case management still trying to reach out to son to help with nursing facilities for acceptance. Jaguar Walker Oct 14, 2016 11:31
[2016-10-14 20:00] VITALS: BP 115/63; PULSE 60; RESP 20; TEMP 98.1; O2SAT 95
[2016-10-14] MEDS: MIRTAZAPINE 15 MG TAB PEG SCH (20:00)
[2016-10-15] MEDS: MIDODRINE 5 MG TAB PO SCH ×3 (06:00→15:41)
[2016-10-15 08:00] VITALS: BP 112/79; PULSE 79; RESP 18; TEMP 98; O2SAT 96
[2016-10-15] MEDS: ALLOPURINOL 100 MG TAB PEG SCH (09:00)
[2016-10-15] MEDS: LANSOPRAZOLE SOLUTAB 30 MG TAB PEG SCH (09:00)
[2016-10-15] MEDS: FREE WATER G-TUBE SCH (09:00)
--- NOTE | 2016-10-15 10:10 | HHI.PR ---
Subjective Remarks Follow-up for dementia. No acute complaints. Objective Vitals Vital Signs Date Time Temp Pulse Resp B/P Pulse Ox O2 Delivery O2 Flow Rate FiO2 10/15/16 08:00 98.0 79 18 112/79 96 10/14/16 20:00 98.1 60 20 115/63 95 I/O 10/14/16 10/14/16 10/14/16 10/15/16 10/15/16 10/15/16 06:59 14:59 22:59 06:59 14:59 22:59 Intake Total 0 ml 2080 ml 460 ml Output Total 525 ml 0 ml 1175 ml 300 ml Balance -525 ml 0 ml 905 ml 160 ml Intake Oral 0 ml Tube Feeding 1080 ml 360 ml Tube Irrigant 200 ml Other 800 ml 100 ml Output Urine Total 525 ml 1175 ml 300 ml Tube Feeding Residual Discard 0 ml # Bowel Movements 1 0 Result Diagram: 10/13/16 0455 10/13/16 045 Objective Remarks GENERAL: Elderly male in no apparent distress. SKIN: No erythematous patches to face, but mild flaking. CARDIOVASCULAR: Regular rate and rhythm. RESPIRATORY: No accessory muscle use. CTAB. GASTROINTESTINAL: Normoactive bowel sounds. Abdomen is soft, non-tender, nondistended. NEURO: Nods to questions, but does not speak aloud. Procedures None Urinary Catheter: Yes Assessment to: Continue Soto insert reason: Obstruction/Retention Date of Insertion: September 29, 2016 Vascular Central Line Catheter: No A/P Assessment and Plan Wound at suprapubic catheter site: Improved. Appears uninfected. Likely attributed to shearing from tubing. -Continue to apply antibiotic ointment and Telfa to site until healed and monitor area. Hematuria: Resolved. -Patient is not on anticoagulation. -Hemoglobin normal. -Creatinine is normal. -UA 4/5 with innumerable RBCs, but urine sample not grossly bloody. Urinary tract infection, recurrent: Urine culture positive for Proteus mirabilis and GBS on 01/20. Patient completed course of antibiotics. Abdominal pelvis CT 03/06 shows decompressed bladder with circumferential bladder wall thickening and intraluminal air possibly indicating cystitis, but the patient had been afebrile with normal WBC count. Urine culture 05/31 with Serratia marcescens, Pseudomonas, and Enterococcus faecalis. Patient was started on antibiotics. Repeat urine culture on 06/04 only reveals contaminants. Urine culture 08/07 with Enterococcus faecalis and Pseudomonas Aeruginosa similar to previous culture on 05/31. Patient remains afebrile. CBC with normal white blood cell count. Continue to change Soto monthly. 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 Monitor and treat only if symptomatic. Mild obstructive uropathy: Resolved. Appreciate urology recommendations. Suprapubic catheter to be changed monthly; last changed 09/29/16. Abdominal pelvis CT 03/06/16 shows resolution of right sided hydronephrosis. Upper GI bleeding with recurrent rectal bleeding: Resolved. Hemoglobin stable. GI reevaluated patient on 05/04. Presumed hemorrhoids, s/p Anusol HC for total of 2 weeks. Continue PPI. Protein calorie malnutrition: Improving Consulted dietitian who indicated that patient may be converted to bolus feeding Jevity 1.5 w/ bolus 1.5 cans (360ml) @ 0800 and 2000 and 1 can (240ml) @ 1100 , 1400 and 1700. Free Water Flush 100ml before and after each bolus feeding. Ensure Enlive tid and chocolate pudding tid. Patient desired to eat and speech therapy advised puree diet, thin liquids, but patient has not been eating. Turning Machine Operator suggested considering appetite stimulant. This was discussed with attending, but we do not believe this would be beneficial for patient and would add unnecessary risk to the patient. Will continue with tube feeds only. Dementia with inappropriate behavior, mood disorder improved Patient had inappropriate behavior which is resolved now. He has been very appropriate for a long time now. Patient has been hospitalized for similar events in 2015 Consulted psychiatry for further evaluation, who indicated that this is a frontal lobe dementia Risperdal 0.25 mg during the day, Risperdal 0.5 mg at night. Risperdal was discontinued per POA request. Continue Remeron Psychiatry was reconsulted and is ok with discontinuation of Risperdal. Seborrheic dermatitis: Significantly improved. S/p Ketoconazole 2% shampoo and hydrocortisone lotion. Continue hydrocortisone 1% cream bid. Chalazion: Nodule R upper eyelid. There is no evidence of preseptal cellulitis. -Warm compresses were applied but it was greater than 2 weeks without significant improvement. -Ophthalmology was consulted and evaluated patient on 03/26. S/p warm compresses and Tobradex 4 times a day OD x 2 weeks. Patient was intermittently compliant with eyedrops. -No worsening. Follow-up outpatient. Hypotension: Blood pressure labile. Continue Midodrine. Patient on max dose. Increase free water flushes as needed. Pre-renal azotemia: Resolved. BUN improved to 18 on 09/11/16. Continue free water flushes Monitor BMP periodically Stage I decubitus ulcer, sacral skin tear: Continue wound care. Frequent turning of patient. Candidal infection: buttocks affected with satellite lesions to the perineum. -S/p Nystatin and clotrimazole Weakness: Continue physical therapy Nursing staff to get patient up out of bed at least 3 times daily Palliative care evaluation According to palliative care notes family wishes aggressive management, they are expecting him to improve, go to a rehabilitation facility and then improve enough to go home. They are declining hospice. DVT prophylaxis: SCDs. Avoid chemical prophylaxis secondary to GI bleed. Discharge Planning 09/27: Per CM, son states he can meet with [place] Herreraor next week regarding father's placement. CM checking if correction bed still available. 10/15: CM has tried contacting son but apparently there has been difficulty with him providing assistance. Madeline Ortez Oct 15, 2016 10:10
[2016-10-15 19:25] VITALS: BP 101/67; PULSE 62; RESP 21; TEMP 96.3; O2SAT 97
[2016-10-15] MEDS: MIRTAZAPINE 15 MG TAB PEG SCH (20:31)
[2016-10-16 08:00] VITALS: BP 119/70; PULSE 70; RESP 18; TEMP 97.2; O2SAT 98
[2016-10-16] MEDS: FREE WATER G-TUBE SCH (08:23)
[2016-10-16] MEDS: ALLOPURINOL 100 MG TAB PEG SCH (08:23)
[2016-10-16] MEDS: LANSOPRAZOLE SOLUTAB 30 MG TAB PEG SCH (08:23)
[2016-10-16] MEDS: MIDODRINE 5 MG TAB PO SCH ×3 (08:23→15:43)
--- NOTE | 2016-10-16 13:30 | HHI.PR ---
Subjective Remarks Follow-up for dementia. No acute complaints. Objective Vitals Vital Signs Date Time Temp Pulse Resp B/P Pulse Ox O2 Delivery O2 Flow Rate FiO2 10/16/16 08:00 97.2 70 18 119/70 98 10/15/16 19:25 96.3 62 21 101/67 97 I/O 10/15/16 10/15/16 10/15/16 10/16/16 10/16/16 10/16/16 07:00 15:00 23:00 07:00 15:00 23:00 Intake Total 460 ml 1640 ml Output Total 300 ml 75 ml 0 ml Balance 160 ml -75 ml 1640 ml 0 ml Tube Feeding 360 ml 1440 ml Other 100 ml 200 ml Output Urine Total 300 ml 75 ml Tube Feeding Residual Discard 0 ml 0 ml # Bowel Movements 1 Result Diagram: 10/13/16 0455 10/13/16 0455 Objective Remarks GENERAL: Elderly male in no apparent distress. CARDIOVASCULAR: Regular rate and rhythm. RESPIRATORY: No accessory muscle use. CTAB. GASTROINTESTINAL: Normoactive bowel sounds. Abdomen is soft, non-tender, nondistended. NEURO: Nods to questions, but does not speak aloud. Procedures None Urinary Catheter: Yes Assessment to: Continue Soto insert reason: Obstruction/Retention Date of Insertion: September 29, 2016 Vascular Central Line Catheter: No A/P Problem List: (1) Decreased urine output ICD Code: R34 Status: Acute (2) Prerenal azotemia ICD Code: R79.89 Status: Acute (3) Hematuria ICD Code: R31.9 Status: Acute Assessment and Plan Wound at suprapubic catheter site: Improved. Appears uninfected. Likely attributed to shearing from tubing. -Continue to apply antibiotic ointment and Telfa to site until healed and monitor area. Hematuria: Resolved. -Patient is not on anticoagulation. -Hemoglobin normal. -Creatinine is normal. -UA 4/5 with innumerable RBCs, but urine sample not grossly bloody. Urinary tract infection, recurrent: Urine culture positive for Proteus mirabilis and GBS on 01/20. Patient completed course of antibiotics. Abdominal pelvis CT 03/06 shows decompressed bladder with circumferential bladder wall thickening and intraluminal air possibly indicating cystitis, but the patient had been afebrile with normal WBC count. Urine culture 05/31 with Serratia marcescens, Pseudomonas, and Enterococcus faecalis. Patient was started on antibiotics. Repeat urine culture on 06/04 only reveals contaminants. Urine culture 08/07 with Enterococcus faecalis and Pseudomonas Aeruginosa similar to previous culture on 05/31. Patient remains afebrile. CBC with normal white blood cell count. Continue to change Soto monthly. 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 Monitor and treat only if symptomatic. Mild obstructive uropathy: Resolved. Appreciate urology recommendations. Suprapubic catheter to be changed monthly; last changed 09/29/16. Abdominal pelvis CT 03/06/16 shows resolution of right sided hydronephrosis. Upper GI bleeding with recurrent rectal bleeding: Resolved. Hemoglobin stable. GI reevaluated patient on 05/04. Presumed hemorrhoids, s/p Anusol HC for total of 2 weeks. Continue PPI. Protein calorie malnutrition: Improving Consulted dietitian who indicated that patient may be converted to bolus feeding Jevity 1.5 w/ bolus 1.5 cans (360ml) @ 0800 and 2000 and 1 can (240ml) @ 1100 , 1400 and 1700. Free Water Flush 100ml before and after each bolus feeding. Ensure Enlive tid and chocolate pudding tid. Patient desired to eat and speech therapy advised puree diet, thin liquids, but patient has not been eating. Veterinary Assistant Technician suggested considering appetite stimulant. This was discussed with attending, but we do not believe this would be beneficial for patient and would add unnecessary risk to the patient. Will continue with tube feeds only. Dementia with inappropriate behavior, mood disorder improved Patient had inappropriate behavior which is resolved now. He has been very appropriate for a long time now. Patient has been hospitalized for similar events in 2015 Consulted psychiatry for further evaluation, who indicated that this is a frontal lobe dementia Risperdal 0.25 mg during the day, Risperdal 0.5 mg at night. Risperdal was discontinued per POA request. Continue Remeron Psychiatry was reconsulted and is ok with discontinuation of Risperdal. Seborrheic dermatitis: Significantly improved. S/p Ketoconazole 2% shampoo and hydrocortisone lotion. Continue hydrocortisone 1% cream bid. Chalazion: Nodule R upper eyelid. There is no evidence of preseptal cellulitis. -Warm compresses were applied but it was greater than 2 weeks without significant improvement. -Ophthalmology was consulted and evaluated patient on 03/26. S/p warm compresses and Tobradex 4 times a day OD x 2 weeks. Patient was intermittently compliant with eyedrops. -No worsening. Follow-up outpatient. Hypotension: Blood pressure labile. Continue Midodrine. Patient on max dose. Increase free water flushes as needed. Pre-renal azotemia: Resolved. BUN improved to 18 on 09/11/16. Continue free water flushes Monitor BMP periodically Stage I decubitus ulcer, sacral skin tear: Continue wound care. Frequent turning of patient. Candidal infection: buttocks affected with satellite lesions to the perineum. -S/p Nystatin and clotrimazole Weakness: Continue physical therapy Nursing staff to get patient up out of bed at least 3 times daily Palliative care evaluation According to palliative care notes family wishes aggressive management, they are expecting him to improve, go to a rehabilitation facility and then improve enough to go home. They are declining hospice. DVT prophylaxis: SCDs. Avoid chemical prophylaxis secondary to GI bleed. Discharge Planning 09/27: Per CM, son states he can meet with [place] Rosario next week regarding father's placement. CM checking if halfway bed still available. 10/15: CM has tried contacting son but apparently there has been difficulty with him providing assistance. Madeline Ortez Oct 16, 2016 13:30
[2016-10-16 20:05] VITALS: BP 112/75; PULSE 65; RESP 14; TEMP 97.8; O2SAT 95
[2016-10-16] MEDS: MIRTAZAPINE 15 MG TAB PEG SCH (20:25)
[2016-10-17 08:00] VITALS: BP 102/71; PULSE 65; RESP 20; TEMP 97.2; O2SAT 98
[2016-10-17] MEDS: LANSOPRAZOLE SOLUTAB 30 MG TAB PEG SCH (08:39)
[2016-10-17] MEDS: ALLOPURINOL 100 MG TAB PEG SCH (08:39)
[2016-10-17] MEDS: MIDODRINE 5 MG TAB PO SCH ×3 (08:39→16:42)
[2016-10-17] MEDS: FREE WATER G-TUBE SCH (08:40)
--- NOTE | 2016-10-17 09:35 | HHI.PR ---
Subjective Remarks Follow-up for dementia. No acute complaints. Objective Vitals Vital Signs Date Time Temp Pulse Resp B/P Pulse Ox O2 Delivery O2 Flow Rate FiO2 10/17/16 08:00 97.2 65 20 102/71 98 10/16/16 20:05 97.8 65 14 112/75 95 I/O 10/16/16 10/16/16 10/16/16 10/17/16 10/17/16 10/17/16 06:59 14:59 22:59 06:59 14:59 22:59 Intake Total 0 ml Output Total 650 ml 400 ml Balance -650 ml -400 ml Intake Oral 0 ml Output Urine Total 650 ml 400 ml Tube Feeding Residual Discard 0 ml # Bowel Movements 1 2 Result Diagram: 10/13/16 0455 10/13/16 0455 Objective Remarks GENERAL: Elderly male in no apparent distress. CARDIOVASCULAR: Regular rate and rhythm. RESPIRATORY: No accessory muscle use. CTAB. GASTROINTESTINAL: Abdomen is soft, non-tender, nondistended. NEURO: Nods to questions, but does not speak aloud. Procedures None Urinary Catheter: Yes Assessment to: Continue Soto insert reason: Obstruction/Retention Date of Insertion: September 29, 2016 Vascular Central Line Catheter: No A/P Problem List: (1) Decreased urine output ICD Code: R34 Status: Acute (2) Prerenal azotemia ICD Code: R79.89 Status: Acute (3) Hematuria ICD Code: R31.9 Status: Acute Assessment and Plan Wound at suprapubic catheter site: Improved. Appears uninfected. Likely attributed to shearing from tubing. -Continue to apply antibiotic ointment and Telfa to site until healed and monitor area. Hematuria: Resolved. -Patient is not on anticoagulation. -Hemoglobin normal. -Creatinine is normal. -UA 4/5 with innumerable RBCs, but urine sample not grossly bloody. Urinary tract infection, recurrent: Urine culture positive for Proteus mirabilis and GBS on 01/20. Patient completed course of antibiotics. Abdominal pelvis CT 03/06 shows decompressed bladder with circumferential bladder wall thickening and intraluminal air possibly indicating cystitis, but the patient had been afebrile with normal WBC count. Urine culture 05/31 with Serratia marcescens, Pseudomonas, and Enterococcus faecalis. Patient was started on antibiotics. Repeat urine culture on 06/04 only reveals contaminants. Urine culture 4/5 with Enterococcus faecalis and Pseudomonas Aeruginosa similar to previous culture on 05/31. Patient remains afebrile. CBC with normal white blood cell count. Continue to change Soto monthly. 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 Monitor and treat only if symptomatic. Mild obstructive uropathy: Resolved. Appreciate urology recommendations. Suprapubic catheter to be changed monthly; last changed 09/29/16. Abdominal pelvis CT 03/06/16 shows resolution of right sided hydronephrosis. Upper GI bleeding with recurrent rectal bleeding: Resolved. Hemoglobin stable. GI reevaluated patient on 05/04. Presumed hemorrhoids, s/p Anusol HC for total of 2 weeks. Continue PPI. Protein calorie malnutrition: Improving Consulted dietitian who indicated that patient may be converted to bolus feeding Jevity 1.5 w/ bolus 1.5 cans (360ml) @ 0800 and 2000 and 1 can (240ml) @ 1100 , 1400 and 1700. Free Water Flush 100ml before and after each bolus feeding. Ensure Enlive tid and chocolate pudding tid. Patient desired to eat and speech therapy advised puree diet, thin liquids, but patient has not been eating. Rear Load Truck Driver suggested considering appetite stimulant. This was discussed with attending, but we do not believe this would be beneficial for patient and would add unnecessary risk to the patient. Will continue with tube feeds only. Dementia with inappropriate behavior, mood disorder improved Patient had inappropriate behavior which is resolved now. He has been very appropriate for a long time now. Patient has been hospitalized for similar events in 2015 Consulted psychiatry for further evaluation, who indicated that this is a frontal lobe dementia Risperdal 0.25 mg during the day, Risperdal 0.5 mg at night. Risperdal was discontinued per POA request. Continue Remeron Psychiatry was reconsulted and is ok with discontinuation of Risperdal. Seborrheic dermatitis: Significantly improved. S/p Ketoconazole 2% shampoo and hydrocortisone lotion. Continue hydrocortisone 1% cream bid. Chalazion: Nodule R upper eyelid. There is no evidence of preseptal cellulitis. -Warm compresses were applied but it was greater than 2 weeks without significant improvement. -Ophthalmology was consulted and evaluated patient on 03/26. S/p warm compresses and Tobradex 4 times a day OD x 2 weeks. Patient was intermittently compliant with eyedrops. -No worsening. Follow-up outpatient. Hypotension: Blood pressure labile. Continue Midodrine. Patient on max dose. Increase free water flushes as needed. Pre-renal azotemia: Resolved. BUN improved to 18 on 09/11/16. Continue free water flushes Monitor BMP periodically Stage I decubitus ulcer, sacral skin tear: Continue wound care. Frequent turning of patient. Candidal infection: buttocks affected with satellite lesions to the perineum. -S/p Nystatin and clotrimazole Weakness: Continue physical therapy Nursing staff to get patient up out of bed at least 3 times daily Palliative care evaluation According to palliative care notes family wishes aggressive management, they are expecting him to improve, go to a rehabilitation facility and then improve enough to go home. They are declining hospice. DVT prophylaxis: SCDs. Avoid chemical prophylaxis secondary to GI bleed. Discharge Planning 09/27: Per CM, son states he can meet with [place] Herreraor next week regarding father's placement. CM checking if dedicated intermodal truck driver bed still available. 10/15: CM has tried contacting son but apparently there has been difficulty with him providing assistance. Madeline Ortez Oct 17, 2016 09:35
[2016-10-17 20:00] VITALS: BP 106/66; PULSE 66; RESP 24; TEMP 97.3; O2SAT 96
[2016-10-17] MEDS: MIRTAZAPINE 15 MG TAB PEG SCH (20:12)
[2016-10-18] MEDS: MIDODRINE 5 MG TAB PO SCH ×3 (06:08→17:55)
[2016-10-18] MEDS: ALLOPURINOL 100 MG TAB PEG SCH (08:53)
[2016-10-18] MEDS: LANSOPRAZOLE SOLUTAB 30 MG TAB PEG SCH (08:53)
[2016-10-18] MEDS: FREE WATER G-TUBE SCH (08:56)
[2016-10-18 09:34] VITALS: BP 87/62; PULSE 60; RESP 15; TEMP 97.5; O2SAT 96
--- NOTE | 2016-10-18 11:58 | HHI.PR ---
Subjective Remarks Follow up for dementia. No acute complaints. Objective Vitals Vital Signs Date Time Temp Pulse Resp B/P Pulse Ox O2 Delivery O2 Flow Rate FiO2 10/18/16 09:34 97.5 60 15 87/62 96 10/17/16 20:00 97.3 66 24 106/66 96 I/O 10/17/16 10/17/16 10/17/16 10/18/16 10/18/16 10/18/16 07:00 15:00 23:00 07:00 15:00 23:00 Intake Total 0 ml 420 ml Output Total 400 ml 950 ml 150 ml 400 ml Balance -400 ml -950 ml -150 ml 20 ml Intake Oral 0 ml Tube Feeding 360 ml Other 60 ml Output Urine Total 400 ml 950 ml 150 ml 400 ml # Bowel Movements 2 0 2 1 Objective Remarks GENERAL: Elderly male in no apparent distress. CARDIOVASCULAR: Regular rate and rhythm. RESPIRATORY: No accessory muscle use. CTAB. GASTROINTESTINAL: Abdomen is soft, non-tender, nondistended. NEURO: Nods to questions, but does not speak aloud. Procedures None Urinary Catheter: Yes Assessment to: Continue Soto insert reason: Obstruction/Retention Date of Insertion: September 29, 2016 Vascular Central Line Catheter: No A/P Assessment and Plan Wound at suprapubic catheter site: Improved. Appears uninfected. Likely attributed to shearing from tubing. -Continue to apply antibiotic ointment and Telfa to site until healed and monitor area. Hematuria: Resolved. -Patient is not on anticoagulation. -Hemoglobin normal. -Creatinine is normal. -UA 4/5 with innumerable RBCs, but urine sample not grossly bloody. Urinary tract infection, recurrent: Urine culture positive for Proteus mirabilis and GBS on 01/20. Patient completed course of antibiotics. Abdominal pelvis CT 03/06 shows decompressed bladder with circumferential bladder wall thickening and intraluminal air possibly indicating cystitis, but the patient had been afebrile with normal WBC count. Urine culture 05/31 with Serratia marcescens, Pseudomonas, and Enterococcus faecalis. Patient was started on antibiotics. Repeat urine culture on 06/04 only reveals contaminants. Urine culture 4/5 with Enterococcus faecalis and Pseudomonas Aeruginosa similar to previous culture on 05/31. Patient remains afebrile. CBC with normal white blood cell count. Continue to change Soto monthly. 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 Monitor and treat only if symptomatic. Mild obstructive uropathy: Resolved. Appreciate urology recommendations. Suprapubic catheter to be changed monthly; last changed 09/29/16. Abdominal pelvis CT 03/06/16 shows resolution of right sided hydronephrosis. Upper GI bleeding with recurrent rectal bleeding: Resolved. Hemoglobin stable. GI reevaluated patient on 05/04. Presumed hemorrhoids, s/p Anusol HC for total of 2 weeks. Continue PPI. Protein calorie malnutrition: Improving Consulted dietitian who indicated that patient may be converted to bolus feeding Jevity 1.5 w/ bolus 1.5 cans (360ml) @ 0800 and 2000 and 1 can (240ml) @ 1100 , 1400 and 1700. Free Water Flush 100ml before and after each bolus feeding. Ensure Enlive tid and chocolate pudding tid. Patient desired to eat and speech therapy advised puree diet, thin liquids, but patient has not been eating. Project Construction Manager suggested considering appetite stimulant. This was discussed with attending, but we do not believe this would be beneficial for patient and would add unnecessary risk to the patient. Will continue with tube feeds only. Dementia with inappropriate behavior, mood disorder improved Patient had inappropriate behavior which is resolved now. He has been very appropriate for a long time now. Patient has been hospitalized for similar events in 2015 Consulted psychiatry for further evaluation, who indicated that this is a frontal lobe dementia Risperdal 0.25 mg during the day, Risperdal 0.5 mg at night. Risperdal was discontinued per POA request. Continue Remeron Psychiatry was reconsulted and is ok with discontinuation of Risperdal. Seborrheic dermatitis: Significantly improved. S/p Ketoconazole 2% shampoo and hydrocortisone lotion. Continue hydrocortisone 1% cream bid. Chalazion: Nodule R upper eyelid. There is no evidence of preseptal cellulitis. -Warm compresses were applied but it was greater than 2 weeks without significant improvement. -Ophthalmology was consulted and evaluated patient on 03/26. S/p warm compresses and Tobradex 4 times a day OD x 2 weeks. Patient was intermittently compliant with eyedrops. -No worsening. Follow-up outpatient. Hypotension: Blood pressure labile. Continue Midodrine. Patient on max dose. Increase free water flushes as needed. Pre-renal azotemia: Resolved. BUN improved to 18 on 5/10/17. Continue free water flushes Monitor BMP periodically Stage I decubitus ulcer, sacral skin tear: Continue wound care. Frequent turning of patient. Candidal infection: buttocks affected with satellite lesions to the perineum. -S/p Nystatin and clotrimazole Weakness: Continue physical therapy Nursing staff to get patient up out of bed at least 3 times daily Palliative care evaluation According to palliative care notes family wishes aggressive management, they are expecting him to improve, go to a rehabilitation facility and then improve enough to go home. They are declining hospice. DVT prophylaxis: SCDs. Avoid chemical prophylaxis secondary to GI bleed. Discharge Planning 09/27: Per CM, son states he can meet with [place] next week regarding father's placement. CM checking if intermediate frame tender bed still available. 10/15: CM has tried contacting son but apparently there has been difficulty with him providing assistance. Madeline Ortez Oct 18, 2016 11:58 Madeline Ortez Oct 18, 2016 11:58
[2016-10-18 20:00] VITALS: BP 109/65; PULSE 71; RESP 20; TEMP 96.1; O2SAT 95
[2016-10-18] MEDS: MIRTAZAPINE 15 MG TAB PEG SCH (20:09)
[2016-10-19] MEDS: MIDODRINE 5 MG TAB PO SCH ×3 (06:02→16:10)
[2016-10-19 08:00] VITALS: BP 110/70; PULSE 80; RESP 18; TEMP 97.8; O2SAT 95
[2016-10-19] MEDS: FREE WATER G-TUBE SCH (09:00)
--- NOTE | 2016-10-19 09:23 | HHI.PR ---
Subjective Remarks Follow up for dementia. No acute complaints. Objective Vitals Vital Signs Date Time Temp Pulse Resp B/P Pulse Ox O2 Delivery O2 Flow Rate FiO2 10/18/16 20:00 96.1 71 20 109/65 95 10/18/16 09:34 97.5 60 15 87/62 96 I/O 10/18/16 10/18/16 10/18/16 10/19/16 10/19/16 10/19/16 07:00 15:00 23:00 07:00 15:00 23:00 Intake Total 420 ml 1460 ml 480 ml Output Total 400 ml 700 ml 300 ml Balance 20 ml 760 ml 180 ml Intake Oral 0 ml Tube Feeding 360 ml 1080 ml 360 ml Tube Irrigant 180 ml Other 60 ml 200 ml 120 ml Output Urine Total 400 ml 700 ml 300 ml # Bowel Movements 1 1 1 Objective Remarks GENERAL: Elderly male in no apparent distress sleeping. CARDIOVASCULAR: Regular rate and rhythm. RESPIRATORY: No accessory muscle use. CTAB. GASTROINTESTINAL: Abdomen is soft, non-tender, nondistended. NEURO: Nods to questions but keeps his eyes closed and does not speak aloud. Procedures None Urinary Catheter: Yes Assessment to: Continue Soto insert reason: Obstruction/Retention Date of Insertion: September 29, 2016 Vascular Central Line Catheter: No A/P Assessment and Plan Hematuria: Resolved. -Patient is not on anticoagulation. -Hemoglobin normal. -Creatinine is normal. -UA 4/5 with innumerable RBCs, but urine sample not grossly bloody. Urinary tract infection, recurrent: Urine culture positive for Proteus mirabilis and GBS on 01/20. Patient completed course of antibiotics. Abdominal pelvis CT 03/06 shows decompressed bladder with circumferential bladder wall thickening and intraluminal air possibly indicating cystitis, but the patient had been afebrile with normal WBC count. Urine culture 05/31 with Serratia marcescens, Pseudomonas, and Enterococcus faecalis. Patient was started on antibiotics. Repeat urine culture on 06/04 only reveals contaminants. Urine culture 4/5 with Enterococcus faecalis and Pseudomonas Aeruginosa similar to previous culture on 05/31. Patient remains afebrile. CBC with normal white blood cell count. Continue to change Soto monthly. 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 Monitor and treat only if symptomatic. Mild obstructive uropathy: Resolved. Appreciate urology recommendations. Suprapubic catheter to be changed monthly; last changed 09/29/16. Abdominal pelvis CT 03/06/16 shows resolution of right sided hydronephrosis. Upper GI bleeding with recurrent rectal bleeding: Resolved. Hemoglobin stable. GI reevaluated patient on 05/04. Presumed hemorrhoids, s/p Anusol HC for total of 2 weeks. Continue PPI. Protein calorie malnutrition: Improving Consulted dietitian who indicated that patient may be converted to bolus feeding Jevity 1.5 w/ bolus 1.5 cans (360ml) @ 0800 and 2000 and 1 can (240ml) @ 1100 , 1400 and 1700. Free Water Flush 100ml before and after each bolus feeding. Ensure Enlive tid and chocolate pudding tid. Patient desired to eat and speech therapy advised puree diet, thin liquids, but patient has not been eating. Hospice Registered Nurse suggested considering appetite stimulant. This was discussed with attending, but we do not believe this would be beneficial for patient and would add unnecessary risk to the patient. Will continue with tube feeds only. Dementia with inappropriate behavior, mood disorder improved Patient had inappropriate behavior which is resolved now. He has been very appropriate for a long time now. Patient has been hospitalized for similar events in 2015 Consulted psychiatry for further evaluation, who indicated that this is a frontal lobe dementia Risperdal 0.25 mg during the day, Risperdal 0.5 mg at night. Risperdal was discontinued per POA request. Continue Remeron Psychiatry was reconsulted and is ok with discontinuation of Risperdal. Wound at suprapubic catheter site: Improved. Appears uninfected. Likely attributed to shearing from tubing. -S/p antibiotic ointment Seborrheic dermatitis: Significantly improved. S/p Ketoconazole 2% shampoo and hydrocortisone lotion. S/p hydrocortisone 1% cream bid x 2 weeks. Chalazion: Nodule R upper eyelid. There is no evidence of preseptal cellulitis. -Warm compresses were applied but it was greater than 2 weeks without significant improvement. -Ophthalmology was consulted and evaluated patient on 03/26. S/p warm compresses and Tobradex 4 times a day OD x 2 weeks. Patient was intermittently compliant with eyedrops. -No worsening. Follow-up outpatient. Hypotension: Blood pressure labile. Continue Midodrine. Patient on max dose. Increase free water flushes as needed. Pre-renal azotemia: Resolved. BUN improved to 18 on 09/11/16. Continue free water flushes Monitor BMP periodically Stage I decubitus ulcer, sacral skin tear: Continue wound care. Frequent turning of patient. Candidal infection: buttocks affected with satellite lesions to the perineum. -S/p Nystatin and clotrimazole Weakness: Continue physical therapy Nursing staff to get patient up out of bed at least 3 times daily Palliative care evaluation According to palliative care notes family wishes aggressive management, they are expecting him to improve, go to a rehabilitation facility and then improve enough to go home. They are declining hospice. DVT prophylaxis: SCDs. Avoid chemical prophylaxis secondary to GI bleed. Discharge Planning 09/27: Per CM, son states he can meet with [place] Rosario next week regarding father's placement. CM checking if [facility] bed still available. 10/15: CM has tried contacting son but apparently there has been difficulty with him providing assistance. Madeline Ortez Oct 19, 2016 09:23 Madeline Ortez Oct 19, 2016 09:23
[2016-10-19] MEDS: ALLOPURINOL 100 MG TAB PEG SCH (10:28)
[2016-10-19] MEDS: LANSOPRAZOLE SOLUTAB 30 MG TAB PEG SCH (10:28)
[2016-10-19 20:00] VITALS: BP 110/74; PULSE 56; RESP 20; TEMP 96.8; O2SAT 98
[2016-10-19] MEDS: MIRTAZAPINE 15 MG TAB PEG SCH (20:16)
[2016-10-20] MEDS: MIDODRINE 5 MG TAB PO SCH ×3 (06:29→17:57)
[2016-10-20 08:00] VITALS: BP 101/68; PULSE 72; RESP 18; TEMP 98.8; O2SAT 96
[2016-10-20] MEDS: ALLOPURINOL 100 MG TAB PEG SCH (08:39)
[2016-10-20] MEDS: LANSOPRAZOLE SOLUTAB 30 MG TAB PEG SCH (08:39)
[2016-10-20] MEDS: FREE WATER G-TUBE SCH (08:39)
--- NOTE | 2016-10-20 11:17 | HHI.PR ---
Subjective Remarks Follow-up for dementia. No acute complaints. Objective Vitals Vital Signs Date Time Temp Pulse Resp B/P Pulse Ox O2 Delivery O2 Flow Rate FiO2 10/20/16 08:00 98.8 72 18 101/68 96 10/19/16 20:00 96.8 56 20 110/74 98 I/O 10/19/16 10/19/16 10/19/16 10/20/16 10/20/16 10/20/16 07:00 15:00 23:00 07:00 15:00 23:00 Intake Total 480 ml 1130 ml 460 ml Output Total 300 ml 950 ml 550 ml Balance 180 ml 180 ml -90 ml Tube Feeding 360 ml 730 ml 360 ml Other 120 ml 400 ml 100 ml Output Urine Total 300 ml 950 ml 550 ml # Bowel Movements 1 1 1 Objective Remarks GENERAL: Elderly male in no apparent distress sleeping. CARDIOVASCULAR: Regular rate and rhythm. RESPIRATORY: No accessory muscle use. CTAB. GASTROINTESTINAL: Normoactive bowel sounds. Abdomen is soft, non-tender, nondistended. NEURO: Nods to questions but does not speak aloud. Procedures None Urinary Catheter: Yes Assessment to: Continue Soto insert reason: Obstruction/Retention Date of Insertion: September 29, 2016 Vascular Central Line Catheter: No A/P Assessment and Plan Hematuria: Resolved. -Patient is not on anticoagulation. -Hemoglobin normal. -Creatinine is normal. -UA 4/5 with innumerable RBCs, but urine sample not grossly bloody. Urinary tract infection, recurrent: Urine culture positive for Proteus mirabilis and GBS on 01/20. Patient completed course of antibiotics. Abdominal pelvis CT 03/06 shows decompressed bladder with circumferential bladder wall thickening and intraluminal air possibly indicating cystitis, but the patient had been afebrile with normal WBC count. Urine culture 05/31 with Serratia marcescens, Pseudomonas, and Enterococcus faecalis. Patient was started on antibiotics. Repeat urine culture on 06/04 only reveals contaminants. Urine culture 4/5 with Enterococcus faecalis and Pseudomonas Aeruginosa similar to previous culture on 05/31. Patient remains afebrile. CBC with normal white blood cell count. Continue to change Soto monthly. 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 Monitor and treat only if symptomatic. Mild obstructive uropathy: Resolved. Appreciate urology recommendations. Suprapubic catheter to be changed monthly; last changed 5/28/17. Abdominal pelvis CT 03/06/16 shows resolution of right sided hydronephrosis. Upper GI bleeding with recurrent rectal bleeding: Resolved. Hemoglobin stable. GI reevaluated patient on 05/04. Presumed hemorrhoids, s/p Anusol HC for total of 2 weeks. Continue PPI. Protein calorie malnutrition: Improving Consulted dietitian who indicated that patient may be converted to bolus feeding Jevity 1.5 w/ bolus 1.5 cans (360ml) @ 0800 and 2000 and 1 can (240ml) @ 1100 , 1400 and 1700. Free Water Flush 100ml before and after each bolus feeding. Ensure Enlive tid and chocolate pudding tid. Patient desired to eat and speech therapy advised puree diet, thin liquids, but patient has not been eating. Improvement Rn suggested considering appetite stimulant. This was discussed with attending, but we do not believe this would be beneficial for patient and would add unnecessary risk to the patient. Will continue with tube feeds only. Dementia with inappropriate behavior, mood disorder improved Patient had inappropriate behavior which is resolved now. He has been very appropriate for a long time now. Patient has been hospitalized for similar events in 2015 Consulted psychiatry for further evaluation, who indicated that this is a frontal lobe dementia Risperdal 0.25 mg during the day, Risperdal 0.5 mg at night. Risperdal was discontinued per POA request. Continue [facility] Psychiatry was reconsulted and is ok with discontinuation of Risperdal. Wound at suprapubic catheter site: Improved. Appears uninfected. Likely attributed to shearing from tubing. -S/p antibiotic ointment Seborrheic dermatitis: Significantly improved. S/p Ketoconazole 2% shampoo and hydrocortisone lotion. S/p hydrocortisone 1% cream bid x 2 weeks. Chalazion: Nodule R upper eyelid. There is no evidence of preseptal cellulitis. -Warm compresses were applied but it was greater than 2 weeks without significant improvement. -Ophthalmology was consulted and evaluated patient on 03/26. S/p warm compresses and Tobradex 4 times a day OD x 2 weeks. Patient was intermittently compliant with eyedrops. -No worsening. Follow-up outpatient. Hypotension: Blood pressure labile. Continue Midodrine. Patient on max dose. Increase free water flushes as needed. Pre-renal azotemia: Resolved. BUN improved to 18 on 5/10/17. Continue free water flushes Monitor BMP periodically Stage I decubitus ulcer, sacral skin tear: Continue wound care. Frequent turning of patient. Candidal infection: buttocks affected with satellite lesions to the perineum. -S/p Nystatin and clotrimazole Weakness: Continue physical therapy Nursing staff to get patient up out of bed at least 3 times daily Palliative care evaluation According to palliative care notes family wishes aggressive management, they are expecting him to improve, go to a rehabilitation facility and then improve enough to go home. They are declining hospice. DVT prophylaxis: SCDs. Avoid chemical prophylaxis secondary to GI bleed. Discharge Planning 09/27: Per CM, son states he can meet with [place] [facility] next week regarding father's placement. CM checking if detention bed still available. 10/15: CM has tried contacting son but apparently there has been difficulty with him providing assistance. Madeline Ortez Oct 20, 2016 11:17 Madeline Ortez Oct 20, 2016 11:17
[2016-10-20 20:00] VITALS: BP 117/69; PULSE 64; RESP 19; TEMP 97.1; O2SAT 98
[2016-10-20] MEDS: MIRTAZAPINE 15 MG TAB PEG SCH (20:30)
[2016-10-21] MEDS: MIDODRINE 5 MG TAB PO SCH ×3 (06:26→17:04)
[2016-10-21] MEDS: FREE WATER G-TUBE SCH (08:22)
[2016-10-21] MEDS: ALLOPURINOL 100 MG TAB PEG SCH (08:22)
[2016-10-21] MEDS: LANSOPRAZOLE SOLUTAB 30 MG TAB PEG SCH (08:22)
[2016-10-21 08:41] VITALS: BP 110/73; PULSE 69; RESP 15; TEMP 97.1; O2SAT 96
--- NOTE | 2016-10-21 09:54 | HHI.PR ---
Subjective Remarks Follow-up for dementia. No acute complaints. Objective Vitals Vital Signs Date Time Temp Pulse Resp B/P Pulse Ox O2 Delivery O2 Flow Rate FiO2 10/21/16 08:41 97.1 69 15 110/73 96 10/20/16 20:00 97.1 64 19 117/69 98 I/O 10/20/16 10/20/16 10/20/16 10/21/16 10/21/16 10/21/16 07:00 15:00 23:00 07:00 15:00 23:00 Intake Total 460 ml 2640 ml 948 ml Output Total 550 ml 1200 ml 600 ml Balance -90 ml 1440 ml 348 ml Tube Feeding 360 ml 1440 ml 548 ml Tube Irrigant 400 ml 400 ml Other 100 ml 800 ml Output Urine Total 550 ml 1200 ml 600 ml # Bowel Movements 1 1 2 Objective Remarks GENERAL: Elderly male in no apparent distress sleeping. CARDIOVASCULAR: Regular rate and rhythm. RESPIRATORY: No accessory muscle use. CTAB. GASTROINTESTINAL: Normoactive bowel sounds. Abdomen is soft, non-tender, nondistended. NEURO: Nods to questions but does not speak aloud. Procedures None Urinary Catheter: Yes Assessment to: Continue Soto insert reason: Obstruction/Retention Date of Insertion: September 29, 2016 Vascular Central Line Catheter: No A/P Assessment and Plan Hematuria: Resolved. -Patient is not on anticoagulation. -Hemoglobin normal. -Creatinine is normal. -UA 4/5 with innumerable RBCs, but urine sample not grossly bloody. Urinary tract infection, recurrent: Urine culture positive for Proteus mirabilis and GBS on 01/20. Patient completed course of antibiotics. Abdominal pelvis CT 03/06 shows decompressed bladder with circumferential bladder wall thickening and intraluminal air possibly indicating cystitis, but the patient had been afebrile with normal WBC count. Urine culture 05/31 with Serratia marcescens, Pseudomonas, and Enterococcus faecalis. Patient was started on antibiotics. Repeat urine culture on 06/04 only reveals contaminants. Urine culture 4/5 with Enterococcus faecalis and Pseudomonas Aeruginosa similar to previous culture on 05/31. Patient remains afebrile. CBC with normal white blood cell count. Continue to change Soto monthly. 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 Monitor and treat only if symptomatic. Mild obstructive uropathy: Resolved. Appreciate urology recommendations. Suprapubic catheter to be changed monthly; last changed 09/29/16. Abdominal pelvis CT 03/06/16 shows resolution of right sided hydronephrosis. Upper GI bleeding with recurrent rectal bleeding: Resolved. Hemoglobin stable. GI reevaluated patient on 05/04. Presumed hemorrhoids, s/p Anusol HC for total of 2 weeks. Continue PPI. Protein calorie malnutrition: Improving Consulted dietitian who indicated that patient may be converted to bolus feeding Jevity 1.5 w/ bolus 1.5 cans (360ml) @ 0800 and 2000 and 1 can (240ml) @ 1100 , 1400 and 1700. Free Water Flush 100ml before and after each bolus feeding. Ensure Enlive tid and chocolate pudding tid. Patient desired to eat and speech therapy advised puree diet, thin liquids, but patient has not been eating. Fashion Designer suggested considering appetite stimulant. This was discussed with attending, but we do not believe this would be beneficial for patient and would add unnecessary risk to the patient. Will continue with tube feeds only. Dementia with inappropriate behavior, mood disorder improved Patient had inappropriate behavior which is resolved now. He has been very appropriate for a long time now. Patient has been hospitalized for similar events in 2015 Consulted psychiatry for further evaluation, who indicated that this is a frontal lobe dementia Risperdal 0.25 mg during the day, Risperdal 0.5 mg at night. Risperdal was discontinued per POA request. Continue Remeron Psychiatry was reconsulted and is ok with discontinuation of Risperdal. Wound at suprapubic catheter site: Improved. Appears uninfected. Likely attributed to shearing from tubing. -S/p antibiotic ointment Seborrheic dermatitis: Significantly improved. S/p Ketoconazole 2% shampoo and hydrocortisone lotion. S/p hydrocortisone 1% cream bid x 2 weeks. Chalazion: Nodule R upper eyelid. There is no evidence of preseptal cellulitis. -Warm compresses were applied but it was greater than 2 weeks without significant improvement. -Ophthalmology was consulted and evaluated patient on 03/26. S/p warm compresses and Tobradex 4 times a day OD x 2 weeks. Patient was intermittently compliant with eyedrops. -No worsening. Follow-up outpatient. Hypotension: Blood pressure labile. Continue Midodrine. Patient on max dose. Increase free water flushes as needed. Pre-renal azotemia: Resolved. BUN improved to 18 on 09/11/16. Continue free water flushes Monitor BMP periodically Stage I decubitus ulcer, sacral skin tear: Continue wound care. Frequent turning of patient. Candidal infection: buttocks affected with satellite lesions to the perineum. -S/p Nystatin and clotrimazole Weakness: Continue physical therapy Nursing staff to get patient up out of bed at least 3 times daily Palliative care evaluation According to palliative care notes family wishes aggressive management, they are expecting him to improve, go to a rehabilitation facility and then improve enough to go home. They are declining hospice. DVT prophylaxis: SCDs. Avoid chemical prophylaxis secondary to GI bleed. Discharge Planning 09/27: Per CM, son states he can meet with [place] Herrera[place] next week regarding father's placement. CM checking if [facility] bed still available. 10/15: CM has tried contacting son but apparently there has been difficulty with him providing assistance. Madeline Ortez Oct 21, 2016 09:54 Madeline Ortez Oct 21, 2016 09:54
[2016-10-21 20:00] VITALS: BP 106/66; PULSE 63; RESP 19; TEMP 98; O2SAT 96
[2016-10-21] MEDS: MIRTAZAPINE 15 MG TAB PEG SCH (20:44)
[2016-10-22] MEDS: MIDODRINE 5 MG TAB PO SCH ×3 (06:15→17:14)
[2016-10-22 08:00] VITALS: BP 120/80; PULSE 79; RESP 16; TEMP 96.2; O2SAT 98
[2016-10-22] MEDS: ALLOPURINOL 100 MG TAB PEG SCH (08:16)
[2016-10-22] MEDS: LANSOPRAZOLE SOLUTAB 30 MG TAB PEG SCH (08:16)
[2016-10-22] MEDS: FREE WATER G-TUBE SCH (08:16)
--- NOTE | 2016-10-22 10:21 | HHI.PR ---
Subjective Remarks Patient seen and examined today for follow-up on dementia, weakness. Patient is a indicate any acute problems at this time. Does give me a thumbs up. Objective Vitals Vital Signs Date Time Temp Pulse Resp B/P Pulse Ox O2 Delivery O2 Flow Rate FiO2 10/22/16 08:00 96.2 79 16 120/80 98 10/21/16 20:00 98.0 63 19 106/66 96 I/O 10/21/16 10/21/16 10/21/16 10/22/16 10/22/16 10/22/16 07:00 15:00 23:00 07:00 15:00 23:00 Intake Total 948 ml 2640 ml 200 ml Output Total 600 ml 1425 ml 400 ml Balance 348 ml 1215 ml -200 ml Tube Feeding 548 ml 1440 ml 0 ml Tube Irrigant 400 ml 400 ml 200 ml Other 800 ml Output Urine Total 600 ml 1425 ml 400 ml # Bowel Movements 2 2 2 Objective Remarks GENERAL: Well-developed, well-nourished, in no acute distress. HEENT: Head is normocephalic without any lesions or masses noted. Facial features are symmetric. Eyes: Extraocular muscles are intact. Conjunctivae were clear. NECK: Trachea midline no deviation. CARDIAC: Regular rhythm, regular rate. S1/S2 are heard. No murmurs gallops or rubs. LUNGS: Clear to auscultation bilaterally. No wheeze, rhonchi or rales. No use of accessory muscles on inspiration or expiration. ABDOMEN: Soft, nontender. Nondistended. Bowel sounds heard in all 4 quadrants. No organomegaly or masses. Negative rebound, negative guarding, suprapubic catheter in place, PEG tube noted EXTREMITIES: No edema, pulses are equal bilaterally. No cyanosis or clubbing NEUROLOGY: Mood and affect appear appropriate. Cranial nerves II through XII grossly intact. Moving all extremities Procedures None Urinary Catheter: Yes (suprapubic catheter) Assessment to: Continue Soto insert reason: Obstruction/Retention Date of Insertion: September 29, 2016 Vascular Central Line Catheter: No A/P Assessment and Plan Weakness: Continue physical therapy Nursing staff to get patient up out of bed at least 3 times daily Dementia with inappropriate behavior, mood disorder improved Patient has been hospitalized for similar events in 2015 Consulted psychiatry for further evaluation, who indicated that this is a frontal lobe dementia Risperdal discontinued at family's request Continue Remeron Parkinson's disease: Patient has dementia and resting tremor. Chronic, stable. GI bleed with presenting of Upper GI bleed, patient with intermittent rectal bleeding: Resolved Hemoglobin continues to remain stable GI was following and reevaluated on 05/04/16 Presumed hemorrhoids, status post Anusol HC for 2 weeks Continue PPI. Protein calorie malnutrition: Improving Consulted dietitian who indicated that patient may be converted to bolus feeding Jevity 1.5, 6 cans per day. 1.5 cans that 0800 and 2000, 1 can at 1100, 1400, 1700 Prealbumin level 24 Ensure Enlive 3 times a day since pudding 3 times a day Excoriation noted around PEG tube, resolved Hypotension with episodes of hypertension: Stable Continue monitor blood pressure Continue Midodrine. Mild obstructive uropathy: Resolved. Appreciate urology recommendations. Suprapubic catheter in place, improved after replacement of Soto Abdominal pelvis CT 03/06/16 shows resolution of right sided hydronephrosis. 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 Stage I decubitus ulcer, sacral skin tear: Resolved Continue wound care. Seborrhea dermatitis, resolved Status post Hydrocortisone cream for 2 weeks Palliative care evaluation According to palliative care notes. Family wishes aggressive management, they are expecting him to improve, go to a rehabilitation facility and then improve enough to go home. They are deferring hospice. DVT prophylaxis: SCDs. Avoid chemical prophylaxis secondary to GI bleed. Records reviewed, no change in clinical status or treatment plan Discharge Planning Discharge planning per case management. Case management still trying to reach out to son to help with nursing facilities for acceptance. Jaguar Walker Oct 22, 2016 10:21
[2016-10-22 12:09] VITALS: BP 94/67; PULSE 74; RESP 18; O2SAT 96
[2016-10-22 20:00] VITALS: BP 106/71; PULSE 78; RESP 20; TEMP 98.3; O2SAT 94
[2016-10-22] MEDS: MIRTAZAPINE 15 MG TAB PEG SCH (20:54)
[2016-10-23] MEDS: MIDODRINE 5 MG TAB PO SCH ×3 (06:23→17:52)
[2016-10-23 08:37] VITALS: BP 98/72; PULSE 70; RESP 19; TEMP 96.4; O2SAT 99
[2016-10-23] MEDS: FREE WATER G-TUBE SCH (08:42)
[2016-10-23] MEDS: ALLOPURINOL 100 MG TAB PEG SCH (08:43)
[2016-10-23] MEDS: LANSOPRAZOLE SOLUTAB 30 MG TAB PEG SCH (08:43)
--- NOTE | 2016-10-23 12:04 | HHI.PR ---
Subjective Remarks Patient seen and examined today for follow-up on weakness and dementia. Patient is resting in bed comfortably. Was notified by dietary that patient is now down to 120 pounds. I notified patient of his weight loss and deconditioning and indicated that he was 170 pounds in high school. Objective Vitals Vital Signs Date Time Temp Pulse Resp B/P Pulse Ox O2 Delivery O2 Flow Rate FiO2 10/23/16 08:37 96.4 70 19 98/72 99 10/22/16 20:00 98.3 78 20 106/71 94 10/22/16 12:09 74 18 94/67 96 I/O 10/22/16 10/22/16 10/22/16 10/23/16 10/23/16 10/23/16 07:00 15:00 23:00 07:00 15:00 23:00 Intake Total 200 ml 0 ml 2640 ml 200 ml 800 ml Output Total 400 ml 650 ml 500 ml 425 ml Balance -200 ml -650 ml 2140 ml -225 ml 800 ml Intake Oral 0 ml 0 ml Tube Feeding 0 ml 1440 ml 600 ml Tube Irrigant 200 ml 400 ml 200 ml Other 800 ml 200 ml Output Urine Total 400 ml 650 ml 500 ml 425 ml # Bowel Movements 2 2 2 0 Objective Remarks GENERAL: Well-developed, well-nourished, in no acute distress. HEENT: Head is normocephalic without any lesions or masses noted. Facial features are symmetric. Eyes: Extraocular muscles are intact. Conjunctivae were clear. NECK: Trachea midline no deviation. CARDIAC: Regular rhythm, regular rate. S1/S2 are heard. No murmurs gallops or rubs. LUNGS: Clear to auscultation bilaterally. No wheeze, rhonchi or rales. No use of accessory muscles on inspiration or expiration. ABDOMEN: Soft, nontender. Nondistended. Bowel sounds heard in all 4 quadrants. No organomegaly or masses. Negative rebound, negative guarding, suprapubic catheter in place, PEG tube noted EXTREMITIES: No edema, pulses are equal bilaterally. No cyanosis or clubbing NEUROLOGY: Mood and affect appear appropriate. Cranial nerves II through XII grossly intact. Moving all extremities Procedures None Urinary Catheter: Yes Assessment to: Continue Soto insert reason: Obstruction/Retention Date of Insertion: September 29, 2016 Vascular Central Line Catheter: No A/P Assessment and Plan Weakness: Continue physical therapy Nursing staff to get patient up out of bed at least 3 times daily Dementia with inappropriate behavior, mood disorder improved Patient has been hospitalized for similar events in 2014 Consulted psychiatry for further evaluation, who indicated that this is a frontal lobe dementia Risperdal discontinued at family's request Continue Remeron Parkinson's disease: Patient has dementia and resting tremor. Chronic, stable. GI bleed with presenting of Upper GI bleed, patient with intermittent rectal bleeding: Resolved Hemoglobin continues to remain stable GI was following and reevaluated on 05/04/16 Presumed hemorrhoids, status post Anusol HC for 2 weeks Continue PPI. Protein calorie malnutrition: Improving Consulted dietitian who indicated that patient may be converted to bolus feeding Jevity 1.5, 1.5, 360ml(1.5 cans)@ 0800, 1100, 1400 and 240ml(1-can)@ 1700 and 2000 Prealbumin level 24 Ensure Enlive 3 times a day since pudding 3 times a day Excoriation noted around PEG tube, resolved Hypotension with episodes of hypertension: Stable Continue monitor blood pressure Continue Midodrine. Mild obstructive uropathy: Resolved. Appreciate urology recommendations. Suprapubic catheter in place, improved after replacement of Soto Abdominal pelvis CT 03/06/16 shows resolution of right sided hydronephrosis. 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 Stage I decubitus ulcer, sacral skin tear: Resolved Continue wound care. Seborrhea dermatitis, resolved Status post Hydrocortisone cream for 2 weeks Palliative care evaluation According to palliative care notes. Family wishes aggressive management, they are expecting him to improve, go to a rehabilitation facility and then improve enough to go home. They are deferring hospice. DVT prophylaxis: SCDs. Avoid chemical prophylaxis secondary to GI bleed. Discharge Planning Discharge planning per case management. Case management still trying to reach out to son to help with nursing facilities for acceptance. Jaguar Walker Oct 23, 2016 12:04
[2016-10-23 20:00] VITALS: BP 132/81; PULSE 88; RESP 24; TEMP 97.3; O2SAT 95
[2016-10-23] MEDS: MIRTAZAPINE 15 MG TAB PEG SCH (20:57)
[2016-10-24] MEDS: MIDODRINE 5 MG TAB PO SCH ×3 (06:19→17:16)
[2016-10-24 08:58] VITALS: BP 99/66; PULSE 64; RESP 15; TEMP 97.2; O2SAT 94
[2016-10-24] MEDS: FREE WATER G-TUBE SCH (09:00)
[2016-10-24] MEDS: LANSOPRAZOLE SOLUTAB 30 MG TAB PEG SCH (09:05)
[2016-10-24] MEDS: ALLOPURINOL 100 MG TAB PEG SCH (09:05)
--- NOTE | 2016-10-24 10:47 | HHI.PR ---
Subjective Remarks Patient seen and examined the day for generalized weakness, dementia. Patient denies any new complaints today. No change in clinical status. Objective Vitals Vital Signs Date Time Temp Pulse Resp B/P Pulse Ox O2 Delivery O2 Flow Rate FiO2 10/24/16 08:58 97.2 64 15 99/66 94 10/23/16 20:00 97.3 88 24 132/81 95 I/O 10/23/16 10/23/16 10/23/16 10/24/16 10/24/16 10/24/16 07:00 15:00 23:00 07:00 15:00 23:00 Intake Total 200 ml 1160 ml Output Total 425 ml 750 ml 350 ml Balance -225 ml 1160 ml -750 ml -350 ml Intake Oral 0 ml Tube Feeding 960 ml Tube Irrigant 200 ml Other 200 ml Output Urine Total 425 ml 750 ml 350 ml # Bowel Movements 0 1 1 Objective Remarks GENERAL: Well-developed, well-nourished, in no acute distress. HEENT: Head is normocephalic without any lesions or masses noted. Facial features are symmetric. Eyes: Extraocular muscles are intact. Conjunctivae were clear. NECK: Trachea midline no deviation. CARDIAC: Regular rhythm, regular rate. S1/S2 are heard. No murmurs gallops or rubs. LUNGS: Clear to auscultation bilaterally. No wheeze, rhonchi or rales. No use of accessory muscles on inspiration or expiration. ABDOMEN: Soft, nontender. Nondistended. Bowel sounds heard in all 4 quadrants. No organomegaly or masses. Negative rebound, negative guarding, suprapubic catheter in place, PEG tube noted EXTREMITIES: No edema, pulses are equal bilaterally. No cyanosis or clubbing NEUROLOGY: Mood and affect appear appropriate. Cranial nerves II through XII grossly intact. Moving all extremities Procedures None Urinary Catheter: No Date of Insertion: September 29, 2016 Vascular Central Line Catheter: No A/P Assessment and Plan Weakness: Continue physical therapy Nursing staff to get patient up out of bed at least 3 times daily Dementia with inappropriate behavior, mood disorder improved Patient has been hospitalized for similar events in 2015 Consulted psychiatry for further evaluation, who indicated that this is a frontal lobe dementia Risperdal discontinued at family's request Continue Remeron Parkinson's disease: Patient has dementia and resting tremor. Chronic, stable. GI bleed with presenting of Upper GI bleed, patient with intermittent rectal bleeding: Resolved Hemoglobin continues to remain stable GI was following and reevaluated on 05/04/16 Presumed hemorrhoids, status post Anusol HC for 2 weeks Continue PPI. Protein calorie malnutrition: Improving Consulted dietitian who indicated that patient may be converted to bolus feeding Jevity 1.5, 1.5, 360ml(1.5 cans)@ 0800, 1100, 1400 and 240ml(1-can)@ 1700 and 2000 Prealbumin level 24 Ensure Enlive 3 times a day since pudding 3 times a day Excoriation noted around PEG tube, resolved Hypotension with episodes of hypertension: Stable Continue monitor blood pressure Continue Midodrine. Mild obstructive uropathy: Resolved. Appreciate urology recommendations. Suprapubic catheter in place, improved after replacement of Soto Abdominal pelvis CT 03/06/16 shows resolution of right sided hydronephrosis. 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 Stage I decubitus ulcer, sacral skin tear: Resolved Continue wound care. Seborrhea dermatitis, resolved Status post Hydrocortisone cream for 2 weeks Palliative care evaluation According to palliative care notes. Family wishes aggressive management, they are expecting him to improve, go to a rehabilitation facility and then improve enough to go home. They are deferring hospice. DVT prophylaxis: SCDs. Avoid chemical prophylaxis secondary to GI bleed. Records reviewed, no change in clinical status or treatment plan Discharge Planning Discharge planning per case management. Case management still trying to reach out to son to help with nursing facilities for acceptance. Jaguar Walker Oct 24, 2016 10:47
[2016-10-24 20:00] VITALS: BP 116/67; PULSE 73; RESP 19; TEMP 97.6; O2SAT 95
[2016-10-24] MEDS: MIRTAZAPINE 15 MG TAB PEG SCH (21:14)
[2016-10-25] MEDS: MIDODRINE 5 MG TAB PO SCH ×3 (06:04→16:09)
[2016-10-25 08:00] VITALS: BP 108/58; PULSE 80; RESP 16; TEMP 97.1; O2SAT 96
[2016-10-25] MEDS: FREE WATER G-TUBE SCH (09:00)
[2016-10-25] MEDS: ALLOPURINOL 100 MG TAB PEG SCH (09:00)
[2016-10-25] MEDS: LANSOPRAZOLE SOLUTAB 30 MG TAB PEG SCH (09:18)
--- NOTE | 2016-10-25 11:10 | HHI.PR ---
Subjective Remarks Patient seen and examined today for follow-up on weakness of dementia. Patient lying in bed comfortable. Does not indicate any new complaints today. Objective Vitals Vital Signs Date Time Temp Pulse Resp B/P Pulse Ox O2 Delivery O2 Flow Rate FiO2 10/25/16 08:00 97.1 80 16 108/58 96 10/24/16 20:00 97.6 73 19 116/67 95 I/O 10/24/16 10/24/16 10/24/16 10/25/16 10/25/16 10/25/16 07:00 15:00 23:00 07:00 15:00 23:00 Intake Total 1380 ml 290 ml 360 ml Output Total 350 ml 550 ml 200 ml Balance -350 ml 1380 ml -260 ml -200 ml 360 ml Tube Feeding 1080 ml 240 ml 360 ml Tube Irrigant 300 ml 50 ml Output Urine Total 350 ml 550 ml 200 ml # Bowel Movements 1 2 Objective Remarks GENERAL: Well-developed, well-nourished, in no acute distress. HEENT: Head is normocephalic without any lesions or masses noted. Facial features are symmetric. Eyes: Extraocular muscles are intact. Conjunctivae were clear. NECK: Trachea midline no deviation. CARDIAC: Regular rhythm, regular rate. S1/S2 are heard. No murmurs gallops or rubs. LUNGS: Clear to auscultation bilaterally. No wheeze, rhonchi or rales. No use of accessory muscles on inspiration or expiration. ABDOMEN: Soft, nontender. Nondistended. Bowel sounds heard in all 4 quadrants. No organomegaly or masses. Negative rebound, negative guarding, suprapubic catheter in place, PEG tube noted EXTREMITIES: No edema, pulses are equal bilaterally. No cyanosis or clubbing NEUROLOGY: Mood and affect appear appropriate. Cranial nerves II through XII grossly intact. Moving all extremities Procedures None Urinary Catheter: Yes (suprapubic catheter) Assessment to: Continue Soto insert reason: Obstruction/Retention Date of Insertion: September 29, 2016 Vascular Central Line Catheter: No A/P Assessment and Plan Weakness: Continue physical therapy Nursing staff to get patient up out of bed at least 3 times daily Dementia with inappropriate behavior, mood disorder improved Patient has been hospitalized for similar events in 2015 Consulted psychiatry for further evaluation, who indicated that this is a frontal lobe dementia Risperdal discontinued at family's request Continue Remeron Parkinson's disease: Patient has dementia and resting tremor. Chronic, stable. GI bleed with presenting of Upper GI bleed, patient with intermittent rectal bleeding: Resolved Hemoglobin continues to remain stable GI was following and reevaluated on 05/04/16 Presumed hemorrhoids, status post Anusol HC for 2 weeks Continue PPI. Protein calorie malnutrition: Improving Consulted dietitian who indicated that patient may be converted to bolus feeding Jevity 1.5, 1.5, 360ml(1.5 cans)@ 0800, 1100, 1400 and 240ml(1-can)@ 1700 and 2000 Prealbumin level 24 Ensure Enlive 3 times a day since pudding 3 times a day Excoriation noted around PEG tube, resolved Hypotension with episodes of hypertension: Stable Continue monitor blood pressure Continue Midodrine. Mild obstructive uropathy: Resolved. Appreciate urology recommendations. Suprapubic catheter in place, improved after replacement of Soto Abdominal pelvis CT 03/06/16 shows resolution of right sided hydronephrosis. 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 Stage I decubitus ulcer, sacral skin tear: Resolved Continue wound care. Seborrhea dermatitis, resolved Status post Hydrocortisone cream for 2 weeks Palliative care evaluation According to palliative care notes. Family wishes aggressive management, they are expecting him to improve, go to a rehabilitation facility and then improve enough to go home. They are deferring hospice. DVT prophylaxis: SCDs. Avoid chemical prophylaxis secondary to GI bleed. Records reviewed, no change in clinical status or treatment plan Discharge Planning Discharge planning per case management. Case management still trying to reach out to son to help with nursing facilities for acceptance. Jaguar Walker Oct 25, 2016 11:10
[2016-10-25 20:00] VITALS: BP 100/70; PULSE 61; RESP 18; TEMP 97.6; O2SAT 97
[2016-10-25] MEDS: MIRTAZAPINE 15 MG TAB PEG SCH (21:01)
[2016-10-26] MEDS: MIDODRINE 5 MG TAB PO SCH ×3 (06:15→15:45)
[2016-10-26] MEDS: ALLOPURINOL 100 MG TAB PEG SCH (07:42)
[2016-10-26] MEDS: FREE WATER G-TUBE SCH (07:42)
[2016-10-26] MEDS: LANSOPRAZOLE SOLUTAB 30 MG TAB PEG SCH (07:42)
[2016-10-26 08:00] VITALS: BP 134/75; PULSE 67; RESP 18; TEMP 98.1; O2SAT 98
--- NOTE | 2016-10-26 11:48 | HHI.PR ---
Subjective Remarks Patient seen and examined today for follow-up on dementia, weakness. Patient not indicate any new conditions or problems. Objective Vitals Vital Signs Date Time Temp Pulse Resp B/P Pulse Ox O2 Delivery O2 Flow Rate FiO2 10/26/16 08:00 98.1 67 18 134/75 98 10/25/16 20:00 97.6 61 18 100/70 97 I/O 10/25/16 10/25/16 10/25/16 10/26/16 10/26/16 10/26/16 07:00 15:00 23:00 07:00 15:00 23:00 Intake Total 360 ml Output Total 200 ml 1002 ml 550 ml Balance -200 ml 360 ml -1002 ml -550 ml Tube Feeding 360 ml Output Urine Total 200 ml 1000 ml 550 ml Stool Total 2 ml # Bowel Movements 2 Objective Remarks GENERAL: Well-developed, well-nourished, in no acute distress. HEENT: Head is normocephalic without any lesions or masses noted. Facial features are symmetric. Eyes: Extraocular muscles are intact. Conjunctivae were clear. NECK: Trachea midline no deviation. CARDIAC: Regular rhythm, regular rate. S1/S2 are heard. No murmurs gallops or rubs. LUNGS: Clear to auscultation bilaterally. No wheeze, rhonchi or rales. No use of accessory muscles on inspiration or expiration. ABDOMEN: Soft, nontender. Nondistended. Bowel sounds heard in all 4 quadrants. No organomegaly or masses. Negative rebound, negative guarding, suprapubic catheter in place, PEG tube noted EXTREMITIES: No edema, pulses are equal bilaterally. No cyanosis or clubbing NEUROLOGY: Mood and affect appear appropriate. Cranial nerves II through XII grossly intact. Moving all extremities Procedures None Urinary Catheter: Yes (suprapubic catheter) Assessment to: Continue Soto insert reason: Prolonged Immobilization Date of Insertion: September 29, 2016 Vascular Central Line Catheter: No A/P Assessment and Plan Weakness: Continue physical therapy Nursing staff to get patient up out of bed at least 3 times daily Dementia with inappropriate behavior, mood disorder improved Patient has been hospitalized for similar events in 2015 Consulted psychiatry for further evaluation, who indicated that this is a frontal lobe dementia Risperdal discontinued at family's request Continue Remeron Parkinson's disease: Patient has dementia and resting tremor. Chronic, stable. GI bleed with presenting of Upper GI bleed, patient with intermittent rectal bleeding: Resolved Hemoglobin continues to remain stable GI was following and reevaluated on 05/04/16 Presumed hemorrhoids, status post Anusol HC for 2 weeks Continue PPI. Protein calorie malnutrition: Improving Consulted dietitian who indicated that patient may be converted to bolus feeding Jevity 1.5, 1.5, 360ml(1.5 cans)@ 0800, 1100, 1400 and 240ml(1-can)@ 1700 and 2000 Prealbumin level 24 Ensure Enlive 3 times a day since pudding 3 times a day Excoriation noted around PEG tube, resolved Hypotension with episodes of hypertension: Stable Continue monitor blood pressure Continue Midodrine. Mild obstructive uropathy: Resolved. Appreciate urology recommendations. Suprapubic catheter in place, improved after replacement of Soto Abdominal pelvis CT 03/06/16 shows resolution of right sided hydronephrosis. 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 Stage I decubitus ulcer, sacral skin tear: Resolved Continue wound care. Seborrhea dermatitis, resolved Status post Hydrocortisone cream for 2 weeks Palliative care evaluation According to palliative care notes. Family wishes aggressive management, they are expecting him to improve, go to a rehabilitation facility and then improve enough to go home. They are deferring hospice. DVT prophylaxis: SCDs. Avoid chemical prophylaxis secondary to GI bleed. Records reviewed, no change in clinical status or treatment plan Discharge Planning Discharge planning per case management. Case management still trying to reach out to son to help with nursing facilities for acceptance. Jaguar Walker Oct 26, 2016 11:48
[2016-10-26 20:00] VITALS: BP 94/62; PULSE 81; RESP 16; TEMP 99.3; O2SAT 95
[2016-10-26] MEDS: MIRTAZAPINE 15 MG TAB PEG SCH (21:22)
[2016-10-27] MEDS: MIDODRINE 5 MG TAB PO SCH ×3 (06:40→15:46)
[2016-10-27] MEDS: FREE WATER G-TUBE SCH (07:16)
[2016-10-27] MEDS: ALLOPURINOL 100 MG TAB PEG SCH (07:17)
[2016-10-27] MEDS: LANSOPRAZOLE SOLUTAB 30 MG TAB PEG SCH (07:17)
[2016-10-27 08:00] VITALS: BP 107/75; PULSE 72; RESP 17; TEMP 97.5; O2SAT 98
--- NOTE | 2016-10-27 09:39 | HHI.PR ---
Subjective Remarks Patient seen and examined today for follow-up on weakness and dementia. Patient gives me the soso hand gesture when asked if everything is going okay. Objective Vitals Vital Signs Date Time Temp Pulse Resp B/P Pulse Ox O2 Delivery O2 Flow Rate FiO2 10/27/16 08:00 97.5 72 17 107/75 98 10/26/16 20:00 99.3 81 16 94/62 95 I/O 10/26/16 10/26/16 10/26/16 10/27/16 10/27/16 10/27/16 07:00 15:00 23:00 07:00 15:00 23:00 Intake Total 1420 ml 300 ml Output Total 550 ml 1000 ml 325 ml Balance -550 ml 420 ml -25 ml Tube Feeding 1320 ml 240 ml Other 100 ml 60 ml Output Urine Total 550 ml 1000 ml 325 ml # Bowel Movements 5 1 Objective Remarks GENERAL: Well-developed, well-nourished, in no acute distress. HEENT: Head is normocephalic without any lesions or masses noted. Facial features are symmetric. Eyes: Extraocular muscles are intact. Conjunctivae were clear. NECK: Trachea midline no deviation. CARDIAC: Regular rhythm, regular rate. S1/S2 are heard. No murmurs gallops or rubs. LUNGS: Clear to auscultation bilaterally. No wheeze, rhonchi or rales. No use of accessory muscles on inspiration or expiration. ABDOMEN: Soft, nontender. Nondistended. Bowel sounds heard in all 4 quadrants. No organomegaly or masses. Negative rebound, negative guarding, suprapubic catheter in place, PEG tube noted EXTREMITIES: No edema, pulses are equal bilaterally. No cyanosis or clubbing NEUROLOGY: Mood and affect appear appropriate. Cranial nerves II through XII grossly intact. Moving all extremities Procedures None Urinary Catheter: Yes (suprapubic catheter) Assessment to: Continue Date of Insertion: September 29, 2016 Vascular Central Line Catheter: No A/P Assessment and Plan Weakness: Continue physical therapy Nursing staff to get patient up out of bed at least 3 times daily Dementia with inappropriate behavior, mood disorder improved Patient has been hospitalized for similar events in 2015 Consulted psychiatry for further evaluation, who indicated that this is a frontal lobe dementia Risperdal discontinued at family's request Continue Remeron Parkinson's disease: Patient has dementia and resting tremor. Chronic, stable. GI bleed with presenting of Upper GI bleed, patient with intermittent rectal bleeding: Resolved Hemoglobin continues to remain stable GI was following and reevaluated on 05/04/16 Presumed hemorrhoids, status post Anusol HC for 2 weeks Continue PPI. Protein calorie malnutrition: Improving Consulted dietitian who indicated that patient may be converted to bolus feeding Jevity 1.5, 1.5, 360ml(1.5 cans)@ 0800, 1100, 1400 and 240ml(1-can)@ 1700 and 2000 Prealbumin level 24 Ensure Enlive 3 times a day since pudding 3 times a day Excoriation noted around PEG tube, resolved Hypotension with episodes of hypertension: Stable Continue monitor blood pressure Continue Midodrine. Mild obstructive uropathy: Resolved. Appreciate urology recommendations. Suprapubic catheter in place, improved after replacement of Soto Abdominal pelvis CT 03/06/16 shows resolution of right sided hydronephrosis. 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 Stage I decubitus ulcer, sacral skin tear: Resolved Continue wound care. Seborrhea dermatitis, resolved Status post Hydrocortisone cream for 2 weeks Palliative care evaluation According to palliative care notes. Family wishes aggressive management, they are expecting him to improve, go to a rehabilitation facility and then improve enough to go home. They are deferring hospice. DVT prophylaxis: SCDs. Avoid chemical prophylaxis secondary to GI bleed. Records reviewed, no change in clinical status or treatment plan Discharge Planning Discharge planning per case management. Case management still trying to reach out to son to help with nursing facilities for acceptance. Jaguar Walker Oct 27, 2016 09:39
[2016-10-27 20:00] VITALS: BP 90/64; PULSE 68; RESP 24; TEMP 97.5; O2SAT 94
[2016-10-27] MEDS: MIRTAZAPINE 15 MG TAB PEG SCH (21:06)
[2016-10-28] MEDS: MIDODRINE 5 MG TAB PO SCH ×3 (06:38→17:00)
[2016-10-28 08:00] VITALS: BP 114/62; PULSE 76; RESP 18; TEMP 97.8; O2SAT 95
[2016-10-28] MEDS: FREE WATER G-TUBE SCH (08:44)
[2016-10-28] MEDS: LANSOPRAZOLE SOLUTAB 30 MG TAB PEG SCH (08:45)
[2016-10-28] MEDS: ALLOPURINOL 100 MG TAB PEG SCH (08:45)
--- NOTE | 2016-10-28 11:27 | HHI.PR ---
Subjective Remarks Patient seen and examined today for follow-up on weakness and dementia. Absolutely no change in clinical status at this time. Patient reassured her shoulders when you ask with his any problems. Objective Vitals Vital Signs Date Time Temp Pulse Resp B/P Pulse Ox O2 Delivery O2 Flow Rate FiO2 10/27/16 20:00 97.5 68 24 90/64 94 I/O 10/27/16 10/27/16 10/27/16 10/28/16 10/28/16 10/28/16 07:00 15:00 23:00 07:00 15:00 23:00 Intake Total 300 ml 0 ml 300 ml Output Total 325 ml 250 ml 200 ml 300 ml Balance -25 ml -250 ml -200 ml 0 ml Intake Oral 0 ml Tube Feeding 240 ml 240 ml Other 60 ml 60 ml Output Urine Total 325 ml 250 ml 200 ml 300 ml # Bowel Movements 1 3 1 1 Objective Remarks GENERAL: Well-developed, well-nourished, in no acute distress. HEENT: Head is normocephalic without any lesions or masses noted. Facial features are symmetric. Eyes: Extraocular muscles are intact. Conjunctivae were clear. NECK: Trachea midline no deviation. CARDIAC: Regular rhythm, regular rate. S1/S2 are heard. No murmurs gallops or rubs. LUNGS: Clear to auscultation bilaterally. No wheeze, rhonchi or rales. No use of accessory muscles on inspiration or expiration. ABDOMEN: Soft, nontender. Nondistended. Bowel sounds heard in all 4 quadrants. No organomegaly or masses. Negative rebound, negative guarding, suprapubic catheter in place, PEG tube noted EXTREMITIES: No edema, pulses are equal bilaterally. No cyanosis or clubbing NEUROLOGY: Mood and affect appear appropriate. Cranial nerves II through XII grossly intact. Moving all extremities Procedures None Urinary Catheter: Yes Assessment to: Continue Soto insert reason: Obstruction/Retention Date of Insertion: September 29, 2016 Vascular Central Line Catheter: No A/P Assessment and Plan Weakness: Continue physical therapy Nursing staff to get patient up out of bed at least 3 times daily Dementia with inappropriate behavior, mood disorder improved Patient has been hospitalized for similar events in 2015 Consulted psychiatry for further evaluation, who indicated that this is a frontal lobe dementia Risperdal discontinued at family's request Continue Remeron Parkinson's disease: Patient has dementia and resting tremor. Chronic, stable. GI bleed with presenting of Upper GI bleed, patient with intermittent rectal bleeding: Resolved Hemoglobin continues to remain stable GI was following and reevaluated on 05/04/16 Presumed hemorrhoids, status post Anusol HC for 2 weeks Continue PPI. Protein calorie malnutrition: Improving Consulted dietitian who indicated that patient may be converted to bolus feeding Jevity 1.5, 1.5, 360ml(1.5 cans)@ 0800, 1100, 1400 and 240ml(1-can)@ 1700 and 2000 Prealbumin level 24 Ensure Enlive 3 times a day since pudding 3 times a day Excoriation noted around PEG tube, resolved Hypotension with episodes of hypertension: Stable Continue monitor blood pressure Continue Midodrine. Mild obstructive uropathy: Resolved. Appreciate urology recommendations. Suprapubic catheter in place, improved after replacement of Soto Abdominal pelvis CT 03/06/16 shows resolution of right sided hydronephrosis. 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 Stage I decubitus ulcer, sacral skin tear: Resolved Continue wound care. Seborrhea dermatitis, resolved Status post Hydrocortisone cream for 2 weeks Palliative care evaluation According to palliative care notes. Family wishes aggressive management, they are expecting him to improve, go to a rehabilitation facility and then improve enough to go home. They are deferring hospice. DVT prophylaxis: SCDs. Avoid chemical prophylaxis secondary to GI bleed. Records reviewed, no change in clinical status or treatment plan Discharge Planning Discharge planning per case management. Case management still trying to reach out to son to help with nursing facilities for acceptance. Jaguar Walker Oct 28, 2016 11:27
[2016-10-28 20:00] VITALS: BP 117/73; PULSE 70; RESP 19; TEMP 98.5; O2SAT 95
[2016-10-28] MEDS: MIRTAZAPINE 15 MG TAB PEG SCH (21:50)
[2016-10-29] MEDS: MIDODRINE 5 MG TAB PO SCH ×3 (06:36→17:00)
[2016-10-29 08:00] VITALS: BP 118/74; PULSE 80; RESP 16; TEMP 97.8; O2SAT 95
[2016-10-29] MEDS: FREE WATER G-TUBE SCH (09:00)
[2016-10-29] MEDS: LANSOPRAZOLE SOLUTAB 30 MG TAB PEG SCH (09:26)
[2016-10-29] MEDS: ALLOPURINOL 100 MG TAB PEG SCH (09:26)
--- NOTE | 2016-10-29 10:23 | HHI.PR ---
Subjective Remarks Follow-up for dementia. No acute complaints. Objective Vitals Vital Signs Date Time Temp Pulse Resp B/P Pulse Ox O2 Delivery O2 Flow Rate FiO2 10/29/16 08:00 97.8 80 16 118/74 95 10/28/16 20:00 98.5 70 19 117/73 95 I/O 10/28/16 10/28/16 10/28/16 10/29/16 10/29/16 10/29/16 07:00 15:00 23:00 07:00 15:00 23:00 Intake Total 300 ml 300 ml Output Total 300 ml 600 ml 200 ml 100 ml Balance 0 ml -300 ml -200 ml -100 ml Tube Feeding 240 ml 240 ml Other 60 ml 60 ml Output Urine Total 300 ml 600 ml 200 ml 100 ml # Bowel Movements 1 2 Objective Remarks GENERAL: Elderly male in no apparent distress sleeping. CARDIOVASCULAR: Regular rate and rhythm. RESPIRATORY: No accessory muscle use. CTAB. GASTROINTESTINAL: Abdomen is soft, non-tender, nondistended. NEURO: Nods to questions but does not speak aloud. Procedures None Urinary Catheter: Yes Assessment to: Continue Soto insert reason: Obstruction/Retention Date of Insertion: September 29, 2016 Vascular Central Line Catheter: No A/P Assessment and Plan Dementia with inappropriate behavior, mood disorder improved Patient had inappropriate behavior which is resolved now. He has been very appropriate for a long time now. Patient has been hospitalized for similar events in 2015 Consulted psychiatry for further evaluation, who indicated that this is a frontal lobe dementia Risperdal 0.25 mg during the day, Risperdal 0.5 mg at night. Risperdal was discontinued per POA request. Continue [facility] Psychiatry was reconsulted and is ok with discontinuation of Risperdal. Protein calorie malnutrition: Improving Consulted dietitian who indicated that patient may be converted to bolus feeding Jevity 1.5 w/ bolus 1.5 cans (360ml) @ 0800 and 2000 and 1 can (240ml) @ 1100 , 1400 and 1700. Free Water Flush 100ml before and after each bolus feeding. Ensure Enlive tid and chocolate pudding tid. Patient desired to eat and speech therapy advised puree diet, thin liquids, but patient has not been eating. Worship Leader suggested considering appetite stimulant. This was discussed with attending, but we do not believe this would be beneficial for patient and would add unnecessary risk to the patient. Will continue with tube feeds only. Hematuria: Resolved. -Patient is not on anticoagulation. -Hemoglobin normal. -Creatinine is normal. -UA 4/5 with innumerable RBCs, but urine sample not grossly bloody. Urinary tract infection, recurrent: Urine culture positive for Proteus mirabilis and GBS on 01/20. Patient completed course of antibiotics. Abdominal pelvis CT 03/06 shows decompressed bladder with circumferential bladder wall thickening and intraluminal air possibly indicating cystitis, but the patient had been afebrile with normal WBC count. Urine culture 05/31 with Serratia marcescens, Pseudomonas, and Enterococcus faecalis. Patient was started on antibiotics. Repeat urine culture on 06/04 only reveals contaminants. Urine culture / with Enterococcus faecalis and Pseudomonas Aeruginosa similar to previous culture on 05/31. Patient remains afebrile. CBC with normal white blood cell count. Continue to change Soto monthly. 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 Monitor and treat only if symptomatic. Mild obstructive uropathy: Resolved. Appreciate urology recommendations. Suprapubic catheter to be changed monthly; last changed 09/29/16. Abdominal pelvis CT 03/06/16 shows resolution of right sided hydronephrosis. Upper GI bleeding with recurrent rectal bleeding: Resolved. Hemoglobin stable. GI reevaluated patient on 05/04. Presumed hemorrhoids, s/p Anusol HC for total of 2 weeks. Continue PPI. Wound at suprapubic catheter site: Improved. Appears uninfected. Likely attributed to shearing from tubing. -S/p antibiotic ointment Seborrheic dermatitis: Significantly improved. S/p Ketoconazole 2% shampoo and hydrocortisone lotion. S/p hydrocortisone 1% cream bid x 2 weeks. Chalazion: Nodule R upper eyelid. There is no evidence of preseptal cellulitis. -Warm compresses were applied but it was greater than 2 weeks without significant improvement. -Ophthalmology was consulted and evaluated patient on 03/26. S/p warm compresses and Tobradex 4 times a day OD x 2 weeks. Patient was intermittently compliant with eyedrops. -No worsening. Follow-up outpatient. Hypotension: Blood pressure labile. Continue Midodrine. Patient on max dose. Increase free water flushes as needed. Pre-renal azotemia: Resolved. BUN improved to 18 on 09/11/16. Continue free water flushes Monitor BMP periodically Stage I decubitus ulcer, sacral skin tear: Continue wound care. Frequent turning of patient. Candidal infection: buttocks affected with satellite lesions to the perineum. -S/p Nystatin and clotrimazole Weakness: Continue physical therapy Nursing staff to get patient up out of bed at least 3 times daily Palliative care evaluation According to palliative care notes family wishes aggressive management, they are expecting him to improve, go to a rehabilitation facility and then improve enough to go home. They are declining hospice. DVT prophylaxis: SCDs. Avoid chemical prophylaxis secondary to GI bleed. Discharge Planning 09/27: Per CM, son states he can meet with [place] Herreraor next week regarding father's placement. CM checking if detention bed still available. 10/15: CM has tried contacting son but apparently there has been difficulty with him providing assistance. 10/28: advertising manager continues to attempt to get son to return his call without response. CM continues to request help from DCF. advertising manager indicates that there may need for a court order to get help with son to assist. Madeline Ortez Oct 29, 2016 10:23
[2016-10-29] MEDS: MIRTAZAPINE 15 MG TAB PEG SCH (19:37)
[2016-10-29 20:00] VITALS: BP 113/73; PULSE 65; RESP 20; TEMP 96.9; O2SAT 95
[2016-10-30] MEDS: MIDODRINE 5 MG TAB PO SCH ×3 (06:14→16:35)
[2016-10-30 08:00] VITALS: BP 125/80; PULSE 67; RESP 18; TEMP 95.7; O2SAT 97
[2016-10-30] MEDS: FREE WATER G-TUBE SCH (09:00)
[2016-10-30] MEDS: ALLOPURINOL 100 MG TAB PEG SCH (09:01)
[2016-10-30] MEDS: LANSOPRAZOLE SOLUTAB 30 MG TAB PEG SCH (09:01)
--- NOTE | 2016-10-30 11:06 | HHI.PR ---
Subjective Remarks Follow up for dementia. No acute complaints. Objective Vitals Vital Signs Date Time Temp Pulse Resp B/P Pulse Ox O2 Delivery O2 Flow Rate FiO2 10/30/16 08:00 95.7 67 18 125/80 97 10/29/16 20:00 96.9 65 20 113/73 95 I/O 10/29/16 10/29/16 10/29/16 10/30/16 10/30/16 10/30/16 07:00 15:00 23:00 07:00 15:00 23:00 Intake Total 1300 ml 360 ml Output Total 200 ml 100 ml 600 ml 200 ml Balance -200 ml -100 ml 700 ml 160 ml Tube Feeding 1200 ml 240 ml Tube Irrigant 0 ml 120 ml Other 100 ml Output Urine Total 200 ml 100 ml 600 ml 200 ml # Bowel Movements 2 Objective Remarks GENERAL: Elderly male in no apparent distress sleeping. SKIN: Flaking skin to the chin. CARDIOVASCULAR: Regular rate and rhythm. RESPIRATORY: No accessory muscle use. CTAB. GASTROINTESTINAL: Abdomen is soft, non-tender, nondistended. NEURO: Nods to questions but does not speak aloud. Procedures None Urinary Catheter: Yes Assessment to: Continue Soto insert reason: Obstruction/Retention Date of Insertion: September 29, 2016 Vascular Central Line Catheter: No A/P Assessment and Plan Dementia with inappropriate behavior, mood disorder improved Patient had inappropriate behavior which is resolved now. He has been very appropriate for a long time now. Patient has been hospitalized for similar events in 2015 Consulted psychiatry for further evaluation, who indicated that this is a frontal lobe dementia Risperdal 0.25 mg during the day, Risperdal 0.5 mg at night. Risperdal was discontinued per POA request. Continue Remeron Psychiatry was reconsulted and is ok with discontinuation of Risperdal. Protein calorie malnutrition: Improving Consulted dietitian who indicated that patient may be converted to bolus feeding Jevity 1.5 w/ bolus 1.5 cans (360ml) @ 0800 and 2000 and 1 can (240ml) @ 1100 , 1400 and 1700. Free Water Flush 100ml before and after each bolus feeding. Ensure Enlive tid and chocolate pudding tid. Patient desired to eat and speech therapy advised puree diet, thin liquids, but patient has not been eating. Compo Conveyor Operator suggested considering appetite stimulant. This was discussed with attending, but we do not believe this would be beneficial for patient and would add unnecessary risk to the patient. Will continue with tube feeds only. Hematuria: Resolved. -Patient is not on anticoagulation. -Hemoglobin normal. -Creatinine is normal. -UA 4/5 with innumerable RBCs, but urine sample not grossly bloody. Urinary tract infection, recurrent: Urine culture positive for Proteus mirabilis and GBS on 01/20. Patient completed course of antibiotics. Abdominal pelvis CT 03/06 shows decompressed bladder with circumferential bladder wall thickening and intraluminal air possibly indicating cystitis, but the patient had been afebrile with normal WBC count. Urine culture 05/31 with Serratia marcescens, Pseudomonas, and Enterococcus faecalis. Patient was started on antibiotics. Repeat urine culture on 06/04 only reveals contaminants. Urine culture 08/07 with Enterococcus faecalis and Pseudomonas Aeruginosa similar to previous culture on 05/31. Patient remains afebrile. CBC with normal white blood cell count. Continue to change Soto monthly. 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 Monitor and treat only if symptomatic. Mild obstructive uropathy: Resolved. Appreciate urology recommendations. Suprapubic catheter to be changed monthly; last changed 09/29/16. Order to change suprapubic catheter today. RN aware. Abdominal pelvis CT 03/06/16 shows resolution of right sided hydronephrosis. Upper GI bleeding with recurrent rectal bleeding: Resolved. Hemoglobin stable. GI reevaluated patient on 05/04. Presumed hemorrhoids, s/p Anusol HC for total of 2 weeks. Continue PPI. Wound at suprapubic catheter site: Improved. Appears uninfected. Likely attributed to shearing from tubing. -S/p antibiotic ointment Seborrheic dermatitis: S/p Ketoconazole 2% shampoo and hydrocortisone lotion. S/p hydrocortisone 1% cream bid x 2 weeks. 10/30: Flaking skin returning. Consider restarting hydrocortisone ointment. Chalazion: Nodule R upper eyelid. There is no evidence of preseptal cellulitis. -Warm compresses were applied but it was greater than 2 weeks without significant improvement. -Ophthalmology was consulted and evaluated patient on 03/26. S/p warm compresses and Tobradex 4 times a day OD x 2 weeks. Patient was intermittently compliant with eyedrops. -No worsening. Follow-up outpatient. Hypotension: Blood pressure labile. Continue Midodrine. Patient on max dose. Increase free water flushes as needed. Pre-renal azotemia: Resolved. BUN improved to 18 on 09/11/16. Continue free water flushes Monitor BMP periodically Stage I decubitus ulcer, sacral skin tear: Continue wound care. Frequent turning of patient. Candidal infection: buttocks affected with satellite lesions to the perineum. -S/p Nystatin and clotrimazole Weakness: Continue physical therapy Nursing staff to get patient up out of bed at least 3 times daily Palliative care evaluation According to palliative care notes family wishes aggressive management, they are expecting him to improve, go to a rehabilitation facility and then improve enough to go home. They are declining hospice. DVT prophylaxis: SCDs. Avoid chemical prophylaxis secondary to GI bleed. Discharge Planning 09/27: Per CM, son states he can meet with [place] Rosario next week regarding father's placement. CM checking if long-term bed still available. 10/15: CM has tried contacting son but apparently there has been difficulty with him providing assistance. 10/28: manager call center continues to attempt to get son to return his call without response. CM continues to request help from DCF. manager call center indicates that there may need for a court order to get help with son to assist. Madeline Ortez Oct 30, 2016 11:06
[2016-10-30 20:00] VITALS: BP 96/60; PULSE 78; RESP 24; TEMP 99.8; O2SAT 94
[2016-10-30] MEDS: MIRTAZAPINE 15 MG TAB PEG SCH (22:13)
[2016-10-31] MEDS: MIDODRINE 5 MG TAB PO SCH ×3 (06:02→16:31)
[2016-10-31 08:00] VITALS: BP 95/63; PULSE 61; RESP 19; TEMP 97.6; O2SAT 96
[2016-10-31] MEDS: FREE WATER G-TUBE SCH (09:00)
[2016-10-31] MEDS: LANSOPRAZOLE SOLUTAB 30 MG TAB PEG SCH (09:23)
[2016-10-31] MEDS: ALLOPURINOL 100 MG TAB PEG SCH (09:23)
--- NOTE | 2016-10-31 10:15 | HHI.PR ---
Subjective Remarks Follow-up for dementia. No acute complaints. Objective Vitals Vital Signs Date Time Temp Pulse Resp B/P Pulse Ox O2 Delivery O2 Flow Rate FiO2 10/31/16 08:00 97.6 61 19 95/63 96 10/30/16 20:00 99.8 78 24 96/60 94 I/O 10/30/16 10/30/16 10/30/16 10/31/16 10/31/16 10/31/16 07:00 15:00 23:00 07:00 15:00 23:00 Intake Total 360 ml 1080 ml 240 ml 400 ml Output Total 200 ml 650 ml 250 ml 250 ml Balance 160 ml 430 ml -10 ml 150 ml Intake Oral 0 ml Tube Feeding 240 ml 1080 ml 240 ml 300 ml Tube Irrigant 120 ml Other 100 ml Output Urine Total 200 ml 650 ml 250 ml 250 ml # Bowel Movements 1 2 1 Objective Remarks GENERAL: Elderly male in no apparent distress sleeping. SKIN: Mild flaking skin to the chin improved from yesterday. CARDIOVASCULAR: Regular rate and rhythm. RESPIRATORY: No accessory muscle use. CTAB. GASTROINTESTINAL: Abdomen soft, non-tender, nondistended. NEURO: Nods to questions but does not speak aloud. Procedures None Urinary Catheter: Yes Assessment to: Continue Soto insert reason: Obstruction/Retention Date of Insertion: Oct 30, 2016 Vascular Central Line Catheter: No A/P Assessment and Plan Dementia with inappropriate behavior, mood disorder improved Patient had inappropriate behavior which is resolved now. He has been very appropriate for a long time now. Patient has been hospitalized for similar events in 2015 Consulted psychiatry for further evaluation, who indicated that this is a frontal lobe dementia Risperdal 0.25 mg during the day, Risperdal 0.5 mg at night. Risperdal was discontinued per POA request. Continue [facility] Psychiatry was reconsulted and is ok with discontinuation of Risperdal. Protein calorie malnutrition: Improving Consulted dietitian who indicated that patient may be converted to bolus feeding Jevity 1.5 w/ bolus 1.5 cans (360ml) @ 0800 and 2000 and 1 can (240ml) @ 1100, 1400 and 1700. Free Water Flush 100ml before and after each bolus feeding. Ensure Enlive tid and chocolate pudding tid. Patient desired to eat and speech therapy advised puree diet, thin liquids, but patient has not been eating. Lab Technologist suggested considering appetite stimulant. This was discussed with attending, but we do not believe this would be beneficial for patient and would add unnecessary risk to the patient. Will continue with tube feeds only. Hematuria: Resolved. -Patient is not on anticoagulation. -Hemoglobin normal. -Creatinine is normal. -UA 4/5 with innumerable RBCs, but urine sample not grossly bloody. Urinary tract infection, recurrent: Urine culture positive for Proteus mirabilis and GBS on 01/20. Patient completed course of antibiotics. Abdominal pelvis CT 03/06 shows decompressed bladder with circumferential bladder wall thickening and intraluminal air possibly indicating cystitis, but the patient had been afebrile with normal WBC count. Urine culture 05/31 with Serratia marcescens, Pseudomonas, and Enterococcus faecalis. Patient was started on antibiotics. Repeat urine culture on 06/04 only reveals contaminants. Urine culture 4/5 with Enterococcus faecalis and Pseudomonas Aeruginosa similar to previous culture on 05/31. Patient remains afebrile. CBC with normal white blood cell count. Continue to change Soto monthly. 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 Monitor and treat only if symptomatic. Mild obstructive uropathy: Resolved. Appreciate urology recommendations. Suprapubic catheter to be changed monthly; last changed 10/30/16. Abdominal pelvis CT 03/06/16 shows resolution of right sided hydronephrosis. Upper GI bleeding with recurrent rectal bleeding: Resolved. Hemoglobin stable. GI reevaluated patient on 05/04. Presumed hemorrhoids, s/p Anusol HC for total of 2 weeks. Continue PPI. Wound at suprapubic catheter site: Improved. Appears uninfected. Likely attributed to shearing from tubing. -S/p antibiotic ointment Seborrheic dermatitis: Improved. S/p Ketoconazole 2% shampoo and hydrocortisone lotion. S/p hydrocortisone 1% cream bid x 2 weeks. Chalazion: Nodule R upper eyelid. There is no evidence of preseptal cellulitis. -Warm compresses were applied but it was greater than 2 weeks without significant improvement. -Ophthalmology was consulted and evaluated patient on 03/26. S/p warm compresses and Tobradex 4 times a day OD x 2 weeks. Patient was intermittently compliant with eyedrops. -No worsening. Follow-up outpatient. Hypotension: Blood pressure labile. Continue Midodrine. Patient on max dose. Increase free water flushes as needed. Pre-renal azotemia: Resolved. BUN improved to 18 on 09/11/16. Continue free water flushes Monitor BMP periodically Stage I decubitus ulcer, sacral skin tear: Continue wound care. Frequent turning of patient. Candidal infection: buttocks affected with satellite lesions to the perineum. -S/p Nystatin and clotrimazole Weakness: Continue physical therapy Nursing staff to get patient up out of bed at least 3 times daily Palliative care evaluation According to palliative care notes family wishes aggressive management, they are expecting him to improve, go to a rehabilitation facility and then improve enough to go home. They are declining hospice. DVT prophylaxis: SCDs. Avoid chemical prophylaxis secondary to GI bleed. Discharge Planning 09/27: Per CM, son states he can meet with [place] Rosario next week regarding father's placement. CM checking if usp bed still available. 10/15: CM has tried contacting son but apparently there has been difficulty with him providing assistance. 10/28: verification manager continues to attempt to get son to return his call without response. CM continues to request help from [facility]. verification manager indicates that there may need for a court order to get help with son to assist. Madeline Ortez Oct 31, 2016 10:15 there may need for a court order to get help with son to assist. Madeline Ortez Oct 31, 2016 10:15
[2016-10-31 20:00] VITALS: BP 107/67; PULSE 64; RESP 22; TEMP 98.7; O2SAT 96
[2016-10-31] MEDS: MIRTAZAPINE 15 MG TAB PEG SCH (20:04)
[2016-11-01] MEDS: MIDODRINE 5 MG TAB PO SCH ×3 (06:32→17:00)
[2016-11-01 08:00] VITALS: BP 112/74; PULSE 66; RESP 16; TEMP 96.4; O2SAT 95
[2016-11-01] MEDS: LANSOPRAZOLE SOLUTAB 30 MG TAB PEG SCH (08:07)
[2016-11-01] MEDS: ALLOPURINOL 100 MG TAB PEG SCH (08:07)
[2016-11-01] MEDS: FREE WATER G-TUBE SCH (08:08)
--- NOTE | 2016-11-01 09:58 | HHI.PR ---
Subjective Remarks Followed for dementia. No acute complaints. Objective Vitals Vital Signs Date Time Temp Pulse Resp B/P Pulse Ox O2 Delivery O2 Flow Rate FiO2 10/31/16 20:00 98.7 64 22 107/67 96 I/O 10/31/16 10/31/16 10/31/16 11/01/16 11/01/16 11/01/16 07:00 15:00 23:00 07:00 15:00 23:00 Intake Total 400 ml 0 ml 300 ml Output Total 250 ml 350 ml 300 ml 250 ml Balance 150 ml -350 ml -300 ml 50 ml Intake Oral 0 ml Tube Feeding 300 ml 300 ml Other 100 ml Output Urine Total 250 ml 350 ml 300 ml 250 ml # Bowel Movements 1 1 0 1 Objective Remarks GENERAL: Elderly male in no apparent distress. SKIN: No flaking skin to the face. Cheeks are mildly red. CARDIOVASCULAR: Regular rate and rhythm. RESPIRATORY: No accessory muscle use. CTAB. GASTROINTESTINAL: Abdomen soft, non-tender, nondistended. NEURO: Nods to questions but does not speak aloud. Procedures None Urinary Catheter: Yes Assessment to: Continue Soto insert reason: Obstruction/Retention Date of Insertion: Oct 30, 2016 Vascular Central Line Catheter: No A/P Assessment and Plan Dementia with inappropriate behavior, mood disorder improved Patient had inappropriate behavior which is resolved now. He has been very appropriate for a long time now. Patient has been hospitalized for similar events in 2015 Consulted psychiatry for further evaluation, who indicated that this is a frontal lobe dementia Risperdal 0.25 mg during the day, Risperdal 0.5 mg at night. Risperdal was discontinued per POA request. Continue [facility] Psychiatry was reconsulted and is ok with discontinuation of Risperdal. Protein calorie malnutrition: Improving Consulted dietitian who indicated that patient may be converted to bolus feeding Jevity 1.5 w/ bolus 1.5 cans (360ml) @ 0800 and 2000 and 1 can (240ml) @ 1100, 1400 and 1700. Free Water Flush 100ml before and after each bolus feeding. Ensure Enlive tid and chocolate pudding tid. Patient desired to eat and speech therapy advised puree diet, thin liquids, but patient has not been eating. Retirement Administrator suggested considering appetite stimulant. This was discussed with attending, but we do not believe this would be beneficial for patient and would add unnecessary risk to the patient. Will continue with tube feeds only. Hematuria: Resolved. -Patient is not on anticoagulation. -Hemoglobin normal. -Creatinine is normal. -UA 4/5 with innumerable RBCs, but urine sample not grossly bloody. Urinary tract infection, recurrent: Urine culture positive for Proteus mirabilis and GBS on 01/20. Patient completed course of antibiotics. Abdominal pelvis CT 03/06 shows decompressed bladder with circumferential bladder wall thickening and intraluminal air possibly indicating cystitis, but the patient had been afebrile with normal WBC count. Urine culture 05/31 with Serratia marcescens, Pseudomonas, and Enterococcus faecalis. Patient was started on antibiotics. Repeat urine culture on 06/04 only reveals contaminants. Urine culture 08/07 with Enterococcus faecalis and Pseudomonas Aeruginosa similar to previous culture on 05/31. Patient remains afebrile. CBC with normal white blood cell count. Continue to change Soto monthly. 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 Monitor and treat only if symptomatic. Mild obstructive uropathy: Resolved. Appreciate urology recommendations. Suprapubic catheter to be changed monthly; last changed 10/30/16. Abdominal pelvis CT 03/06/16 shows resolution of right sided hydronephrosis. Upper GI bleeding with recurrent rectal bleeding: Resolved. Hemoglobin stable. GI reevaluated patient on 05/04. Presumed hemorrhoids, s/p Anusol HC for total of 2 weeks. Continue PPI. Wound at suprapubic catheter site: Improved. Appears uninfected. Likely attributed to shearing from tubing. -S/p antibiotic ointment Seborrheic dermatitis: Improved. S/p Ketoconazole 2% shampoo and hydrocortisone lotion. S/p hydrocortisone 1% cream bid x 2 weeks. Chalazion: Nodule R upper eyelid. There is no evidence of preseptal cellulitis. -Warm compresses were applied but it was greater than 2 weeks without significant improvement. -Ophthalmology was consulted and evaluated patient on 03/26. S/p warm compresses and Tobradex 4 times a day OD x 2 weeks. Patient was intermittently compliant with eyedrops. -No worsening. Follow-up outpatient. Hypotension: Blood pressure labile. Continue Midodrine. Patient on max dose. Increase free water flushes as needed. Pre-renal azotemia: Resolved. BUN improved to 18 on 09/11/16. Continue free water flushes Monitor BMP periodically Stage I decubitus ulcer, sacral skin tear: Continue wound care. Frequent turning of patient. Candidal infection: buttocks affected with satellite lesions to the perineum. -S/p Nystatin and clotrimazole Weakness: Continue physical therapy Nursing staff to get patient up out of bed at least 3 times daily Palliative care evaluation According to palliative care notes family wishes aggressive management, they are expecting him to improve, go to a rehabilitation facility and then improve enough to go home. They are declining hospice. DVT prophylaxis: SCDs. Avoid chemical prophylaxis secondary to GI bleed. Discharge Planning 09/27: Per CM, son states he can meet with [place] Herreraor next week regarding father's placement. CM checking if long distance operator bed still available. 10/15: CM has tried contacting son but apparently there has been difficulty with him providing assistance. 10/28: client solutions manager continues to attempt to get son to return his call without response. CM continues to request help from DCF. client solutions manager indicates that there may need for a court order to get help with son to assist. Madeline Ortez Nov 01, 2016 09:58 Madeline Ortez Nov 01, 2016 09:58
[2016-11-01] MEDS: MIRTAZAPINE 15 MG TAB PEG SCH (20:23)
[2016-11-01 20:45] VITALS: BP 109/77; PULSE 60; RESP 12; TEMP 98; O2SAT 96
[2016-11-02] MEDS: MIDODRINE 5 MG TAB PO SCH ×3 (06:43→16:28)
[2016-11-02] MEDS: LANSOPRAZOLE SOLUTAB 30 MG TAB PEG SCH (07:40)
[2016-11-02] MEDS: ALLOPURINOL 100 MG TAB PEG SCH (07:40)
[2016-11-02] MEDS: FREE WATER G-TUBE SCH (07:44)
[2016-11-02 08:00] VITALS: BP 145/89; PULSE 62; RESP 18; TEMP 97.8; O2SAT 97
--- NOTE | 2016-11-02 09:44 | HHI.PR ---
Subjective Remarks Follow-up for dementia. No acute complaints. Objective Vitals Vital Signs Date Time Temp Pulse Resp B/P Pulse Ox O2 Delivery O2 Flow Rate FiO2 11/02/16 08:00 97.8 62 18 145/89 97 11/01/16 20:45 98.0 60 12 109/77 96 I/O 11/01/16 11/01/16 11/01/16 11/02/16 11/02/16 11/02/16 07:00 15:00 23:00 07:00 15:00 23:00 Intake Total 300 ml Output Total 250 ml 801 ml Balance 50 ml -801 ml Tube Feeding 300 ml Output Urine Total 250 ml 800 ml Stool Total 1 ml # Bowel Movements 1 3 Objective Remarks GENERAL: Elderly male in no apparent distress. SKIN: No significant flaking skin to the face. CARDIOVASCULAR: Regular rate and rhythm. RESPIRATORY: No accessory muscle use. CTAB. GASTROINTESTINAL: Abdomen soft, non-tender, nondistended. NEURO: Nods to questions but does not speak aloud. Procedures None Urinary Catheter: No Date of Insertion: Oct 30, 2016 Vascular Central Line Catheter: No A/P Assessment and Plan Dementia with inappropriate behavior, mood disorder improved Patient had inappropriate behavior which is resolved now. He has been very appropriate for a long time now. Patient has been hospitalized for similar events in 2015 Consulted psychiatry for further evaluation, who indicated that this is a frontal lobe dementia Risperdal 0.25 mg during the day, Risperdal 0.5 mg at night. Risperdal was discontinued per POA request. [facility] Psychiatry was reconsulted and is ok with discontinuation of Risperdal. Protein calorie malnutrition: Improving Consulted dietitian who indicated that patient may be converted to bolus feeding Jevity 1.5 w/ bolus 1.5 cans (360ml) @ 0800 and 2000 and 1 can (240ml) @ 1100, 1400 and 1700. Free Water Flush 100ml before and after each bolus feeding. Ensure Enlive tid and chocolate pudding tid. Patient desired to eat and speech therapy advised puree diet, thin liquids, but patient has not been eating. Clinical Transformation Specialist suggested considering appetite stimulant. This was discussed with attending, but we do not believe this would be beneficial for patient and would add unnecessary risk to the patient. Will continue with tube feeds only. Hematuria: Resolved. -Patient is not on anticoagulation. -Hemoglobin normal. -Creatinine is normal. -UA 4/5 with innumerable RBCs, but urine sample not grossly bloody. Urinary tract infection, recurrent: Urine culture positive for Proteus mirabilis and GBS on 01/20. Patient completed course of antibiotics. Abdominal pelvis CT 03/06 shows decompressed bladder with circumferential bladder wall thickening and intraluminal air possibly indicating cystitis, but the patient had been afebrile with normal WBC count. Urine culture 05/31 with Serratia marcescens, Pseudomonas, and Enterococcus faecalis. Patient was started on antibiotics. Repeat urine culture on 06/04 only reveals contaminants. Urine culture / with Enterococcus faecalis and Pseudomonas Aeruginosa similar to previous culture on 05/31. Patient remains afebrile. CBC with normal white blood cell count. Continue to change Soto monthly. 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 Monitor and treat only if symptomatic. Mild obstructive uropathy: Resolved. Appreciate urology recommendations. Suprapubic catheter to be changed monthly; last changed 10/30/16. Abdominal pelvis CT 03/06/16 shows resolution of right sided hydronephrosis. Upper GI bleeding with recurrent rectal bleeding: Resolved. Hemoglobin stable. GI reevaluated patient on 05/04. Presumed hemorrhoids, s/p Anusol HC for total of 2 weeks. Continue PPI. Wound at suprapubic catheter site: Improved. Appears uninfected. Likely attributed to shearing from tubing. -S/p antibiotic ointment Seborrheic dermatitis: Improved. S/p Ketoconazole 2% shampoo and hydrocortisone lotion. S/p hydrocortisone 1% cream bid x 2 weeks. Chalazion: Nodule R upper eyelid. There is no evidence of preseptal cellulitis. -Warm compresses were applied but it was greater than 2 weeks without significant improvement. -Ophthalmology was consulted and evaluated patient on 03/26. S/p warm compresses and Tobradex 4 times a day OD x 2 weeks. Patient was intermittently compliant with eyedrops. -No worsening. Follow-up outpatient. Hypotension: Blood pressure labile. Continue Midodrine. Patient on max dose. Increase free water flushes as needed. Pre-renal azotemia: Resolved. BUN improved to 18 on 09/11/16. Continue free water flushes Monitor BMP periodically Stage I decubitus ulcer, sacral skin tear: Continue wound care. Frequent turning of patient. Candidal infection: buttocks affected with satellite lesions to the perineum. -S/p Nystatin and clotrimazole Weakness: Continue physical therapy Nursing staff to get patient up out of bed at least 3 times daily Palliative care evaluation According to palliative care notes family wishes aggressive management, they are expecting him to improve, go to a rehabilitation facility and then improve enough to go home. They are declining hospice. DVT prophylaxis: SCDs. Avoid chemical prophylaxis secondary to GI bleed. Discharge Planning 09/27: Per CM, son states he can meet with [place] Herreraor next week regarding father's placement. CM checking if termite technician bed still available. 10/15: CM has tried contacting son but apparently there has been difficulty with him providing assistance. 10/28: airport manager continues to attempt to get son to return his call without response. CM continues to request help from DCF. airport manager indicates that there may need for a court order to get help with son to assist. Madeline Ortez Nov 02, 2016 09:44 there may need for a court order to get help with son to assist. Madeline Ortez Nov 02, 2016 09:44
[2016-11-02 20:00] VITALS: BP 113/69; PULSE 75; RESP 19; TEMP 97.5; O2SAT 95
[2016-11-03] MEDS: FREE WATER G-TUBE SCH (07:58)
[2016-11-03] MEDS: LANSOPRAZOLE SOLUTAB 30 MG TAB PEG SCH (07:58)
[2016-11-03] MEDS: ALLOPURINOL 100 MG TAB PEG SCH (07:58)
[2016-11-03 08:00] VITALS: BP 147/90; PULSE 71; RESP 18; TEMP 97.8; O2SAT 95
--- NOTE | 2016-11-03 09:20 | HHI.PR ---
Subjective Remarks Follow-up for dementia. No acute complaints. Objective Vitals Vital Signs Date Time Temp Pulse Resp B/P Pulse Ox O2 Delivery O2 Flow Rate FiO2 11/03/16 08:00 97.8 71 18 147/90 95 11/02/16 20:00 97.5 75 19 113/69 95 I/O 11/02/16 11/02/16 11/02/16 11/03/16 11/03/16 11/03/16 07:00 15:00 23:00 07:00 15:00 23:00 Output Total 650 ml 250 ml 275 ml Balance -650 ml -250 ml -275 ml Output Urine Total 650 ml 250 ml 275 ml # Bowel Movements 3 1 Objective Remarks GENERAL: Elderly male in no apparent distress. CARDIOVASCULAR: Regular rate and rhythm. RESPIRATORY: No accessory muscle use. CTAB. GASTROINTESTINAL: Abdomen soft, non-tender, nondistended. NEURO: Nods to questions but does not speak aloud. Procedures None Urinary Catheter: Yes Assessment to: Continue Soto insert reason: Obstruction/Retention Date of Insertion: Oct 30, 2016 Vascular Central Line Catheter: No A/P Assessment and Plan Dementia with inappropriate behavior, mood disorder improved Patient had inappropriate behavior which is resolved now. He has been very appropriate for a long time now. Patient has been hospitalized for similar events in 2015 Consulted psychiatry for further evaluation, who indicated that this is a frontal lobe dementia Risperdal 0.25 mg during the day, Risperdal 0.5 mg at night. Risperdal was discontinued per POA request. Continue [facility] Psychiatry was reconsulted and is ok with discontinuation of Risperdal. Protein calorie malnutrition: Improving Consulted dietitian who indicated that patient may be converted to bolus feeding Jevity 1.5 w/ bolus 1.5 cans (360ml) @ 0800 and 2000 and 1 can (240ml) @ 1100, 1400 and 1700. Free Water Flush 100ml before and after each bolus feeding. Ensure Enlive tid and chocolate pudding tid. Patient desired to eat and speech therapy advised puree diet, thin liquids, but patient has not been eating. Custodial Aide suggested considering appetite stimulant. This was discussed with attending, but we do not believe this would be beneficial for patient and would add unnecessary risk to the patient. Will continue with tube feeds only. Hematuria: Resolved. -Patient is not on anticoagulation. -Hemoglobin normal. -Creatinine is normal. -UA 4/5 with innumerable RBCs, but urine sample not grossly bloody. Urinary tract infection, recurrent: Urine culture positive for Proteus mirabilis and GBS on 01/20. Patient completed course of antibiotics. Abdominal pelvis CT 03/06 shows decompressed bladder with circumferential bladder wall thickening and intraluminal air possibly indicating cystitis, but the patient had been afebrile with normal WBC count. Urine culture 05/31 with Serratia marcescens, Pseudomonas, and Enterococcus faecalis. Patient was started on antibiotics. Repeat urine culture on 06/04 only reveals contaminants. Urine culture /5 with Enterococcus faecalis and Pseudomonas Aeruginosa similar to previous culture on 05/31. Patient remains afebrile. CBC with normal white blood cell count. Continue to change Soto monthly. 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 Monitor and treat only if symptomatic. Mild obstructive uropathy: Resolved. Appreciate urology recommendations. Suprapubic catheter to be changed monthly; last changed 10/30/16. Abdominal pelvis CT 03/06/16 shows resolution of right sided hydronephrosis. Upper GI bleeding with recurrent rectal bleeding: Resolved. Hemoglobin stable. GI reevaluated patient on 05/04. Presumed hemorrhoids, s/p Anusol HC for total of 2 weeks. Continue PPI. Wound at suprapubic catheter site: Improved. Appears uninfected. Likely attributed to shearing from tubing. -S/p antibiotic ointment Seborrheic dermatitis: Improved. S/p Ketoconazole 2% shampoo and hydrocortisone lotion. S/p hydrocortisone 1% cream bid x 2 weeks. Chalazion: Nodule R upper eyelid. There is no evidence of preseptal cellulitis. -Warm compresses were applied but it was greater than 2 weeks without significant improvement. -Ophthalmology was consulted and evaluated patient on 03/26. S/p warm compresses and Tobradex 4 times a day OD x 2 weeks. Patient was intermittently compliant with eyedrops. -No worsening. Follow-up outpatient. Hypotension: Blood pressure labile. Continue Midodrine. Patient on max dose. Increase free water flushes as needed. Pre-renal azotemia: Resolved. BUN improved to 18 on 09/11/16. Continue free water flushes Monitor BMP periodically Stage I decubitus ulcer, sacral skin tear: Continue wound care. Frequent turning of patient. Candidal infection: buttocks affected with satellite lesions to the perineum. -S/p Nystatin and clotrimazole Weakness: Continue physical therapy Nursing staff to get patient up out of bed at least 3 times daily Palliative care evaluation According to palliative care notes family wishes aggressive management, they are expecting him to improve, go to a rehabilitation facility and then improve enough to go home. They are declining hospice. DVT prophylaxis: SCDs. Avoid chemical prophylaxis secondary to GI bleed. Discharge Planning 09/27: Per CM, son states he can meet with [place] Rosario next week regarding father's placement. CM checking if terminal supervisor bed still available. 10/15: CM has tried contacting son but apparently there has been difficulty with him providing assistance. 10/28: construction safety manager continues to attempt to get son to return his call without response. CM continues to request help from [facility]. construction safety manager indicates that there may need for a court order to get help with son to assist. Madeline Ortez Nov 03, 2016 09:20 Madeline Ortez Nov 03, 2016 09:20
[2016-11-03] MEDS: MIDODRINE 5 MG TAB PO SCH ×3 (12:00→17:00)
[2016-11-03 20:00] VITALS: BP 130/85; PULSE 148; RESP 22; TEMP 98.1; O2SAT 95
[2016-11-03] MEDS: MIRTAZAPINE 15 MG TAB PEG SCH ×2 (20:13→20:34)
[2016-11-04] MEDS: MIDODRINE 5 MG TAB PO SCH ×3 (06:27→17:00)
[2016-11-04] MEDS: LANSOPRAZOLE SOLUTAB 30 MG TAB PEG SCH (07:26)
[2016-11-04] MEDS: ALLOPURINOL 100 MG TAB PEG SCH (07:27)
[2016-11-04] MEDS: FREE WATER G-TUBE SCH (07:27)
[2016-11-04 08:00] VITALS: BP 121/84; PULSE 75; RESP 18; TEMP 96.4; O2SAT 95
--- NOTE | 2016-11-04 10:50 | HHI.PR ---
Subjective Remarks Follow up for dementia. No acute complaints. Objective Vitals Vital Signs Date Time Temp Pulse Resp B/P Pulse Ox O2 Delivery O2 Flow Rate FiO2 11/04/16 08:00 96.4 75 18 121/84 95 11/03/16 20:00 98.1 148 22 130/85 95 I/O 11/03/16 11/03/16 11/03/16 11/04/16 11/04/16 11/04/16 07:00 15:00 23:00 07:00 15:00 23:00 Intake Total 100 ml Output Total 275 ml 350 ml 650 ml 300 ml Balance -275 ml -250 ml -650 ml -300 ml Other 100 ml Output Urine Total 275 ml 350 ml 650 ml 300 ml # Bowel Movements 2 Objective Remarks GENERAL: Elderly male in no apparent distress sitting in day room in recliner. ENT: Dentures present. CARDIOVASCULAR: Regular rate and rhythm. RESPIRATORY: No accessory muscle use. CTAB. GASTROINTESTINAL: Abdomen soft, non-tender, nondistended. NEURO: Nods to questions but does not speak aloud. Procedures None Urinary Catheter: Yes Assessment to: Continue Soto insert reason: Obstruction/Retention Date of Insertion: Oct 30, 2016 Vascular Central Line Catheter: No A/P Assessment and Plan Dementia with inappropriate behavior, mood disorder improved Patient had inappropriate behavior which is resolved now. He has been very appropriate for a long time now. Patient has been hospitalized for similar events in 2015 Consulted psychiatry for further evaluation, who indicated that this is a frontal lobe dementia Risperdal 0.25 mg during the day, Risperdal 0.5 mg at night. Risperdal was discontinued per POA request. Continue [facility] Psychiatry was reconsulted and is ok with discontinuation of Risperdal. Protein calorie malnutrition: Improving Consulted dietitian who indicated that patient may be converted to bolus feeding Jevity 1.5 w/ bolus 1.5 cans (360ml) @ 0800 and 2000 and 1 can (240ml) @ 1100, 1400 and 1700. Free Water Flush 100ml before and after each bolus feeding. Ensure Enlive tid and chocolate pudding tid. Patient desired to eat and speech therapy advised puree diet, thin liquids, but patient has not been eating. Quality Assurance suggested considering appetite stimulant. This was discussed with attending, but we do not believe this would be beneficial for patient and would add unnecessary risk to the patient. Will continue with tube feeds only. Hematuria: Resolved. -Patient is not on anticoagulation. -Hemoglobin normal. -Creatinine is normal. -UA 4/5 with innumerable RBCs, but urine sample not grossly bloody. Urinary tract infection, recurrent: Urine culture positive for Proteus mirabilis and GBS on 01/20. Patient completed course of antibiotics. Abdominal pelvis CT 03/06 shows decompressed bladder with circumferential bladder wall thickening and intraluminal air possibly indicating cystitis, but the patient had been afebrile with normal WBC count. Urine culture 05/31 with Serratia marcescens, Pseudomonas, and Enterococcus faecalis. Patient was started on antibiotics. Repeat urine culture on 06/04 only reveals contaminants. Urine culture 08/07 with Enterococcus faecalis and Pseudomonas Aeruginosa similar to previous culture on 05/31. Patient remains afebrile. CBC with normal white blood cell count. Continue to change Soto monthly. 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 Monitor and treat only if symptomatic. Mild obstructive uropathy: Resolved. Appreciate urology recommendations. Suprapubic catheter to be changed monthly; last changed 10/30/16. Abdominal pelvis CT 03/06/16 shows resolution of right sided hydronephrosis. Upper GI bleeding with recurrent rectal bleeding: Resolved. Hemoglobin stable. GI reevaluated patient on 05/04. Presumed hemorrhoids, s/p Anusol HC for total of 2 weeks. Continue PPI. Wound at suprapubic catheter site: Improved. Appears uninfected. Likely attributed to shearing from tubing. -S/p antibiotic ointment Seborrheic dermatitis: Improved. S/p Ketoconazole 2% shampoo and hydrocortisone lotion. S/p hydrocortisone 1% cream bid x 2 weeks. Chalazion: Nodule R upper eyelid. There is no evidence of preseptal cellulitis. -Warm compresses were applied but it was greater than 2 weeks without significant improvement. -Ophthalmology was consulted and evaluated patient on 03/26. S/p warm compresses and Tobradex 4 times a day OD x 2 weeks. Patient was intermittently compliant with eyedrops. -No worsening. Follow-up outpatient. Hypotension: Blood pressure labile. Continue Midodrine. Patient on max dose. Increase free water flushes as needed. Pre-renal azotemia: Resolved. BUN improved to 18 on 09/11/16. Continue free water flushes Monitor BMP periodically Stage I decubitus ulcer, sacral skin tear: Continue wound care. Frequent turning of patient. Candidal infection: buttocks affected with satellite lesions to the perineum. -S/p Nystatin and clotrimazole Weakness: Continue physical therapy Nursing staff to get patient up out of bed at least 3 times daily Palliative care evaluation According to palliative care notes family wishes aggressive management, they are expecting him to improve, go to a rehabilitation facility and then improve enough to go home. They are declining hospice. DVT prophylaxis: SCDs. Avoid chemical prophylaxis secondary to GI bleed. Discharge Planning 09/27: Per CM, son states he can meet with [place] Herreraor next week regarding father's placement. CM checking if termite helper bed still available. 10/15: CM has tried contacting son but apparently there has been difficulty with him providing assistance. 10/28: commercial property manager continues to attempt to get son to return his call without response. CM continues to request help from DCF. commercial property manager indicates that there may need for a court order to get help with son to assist. Madeline Ortez Nov 04, 2016 10:50 Madeline Ortez Nov 04, 2016 10:50
[2016-11-04 20:00] VITALS: BP 113/75; PULSE 87; RESP 20; TEMP 97.2; O2SAT 96
[2016-11-04] MEDS: MIRTAZAPINE 15 MG TAB PEG SCH (21:05)
[2016-11-05] MEDS: MIDODRINE 5 MG TAB PO SCH ×3 (06:02→17:00)
[2016-11-05 08:00] VITALS: BP 107/77; PULSE 63; RESP 19; TEMP 96; O2SAT 96
[2016-11-05] MEDS: ALLOPURINOL 100 MG TAB PEG SCH (08:55)
[2016-11-05] MEDS: LANSOPRAZOLE SOLUTAB 30 MG TAB PEG SCH (08:55)
[2016-11-05] MEDS: FREE WATER G-TUBE SCH (08:55)
--- NOTE | 2016-11-05 10:29 | HHI.PR ---
Subjective Remarks Patient seen and examined today for follow-up on weakness and hematochezia. Patient still lying in bed. Rather deconditioned. Does not indicate any new complaints. Objective Vitals Vital Signs Date Time Temp Pulse Resp B/P Pulse Ox O2 Delivery O2 Flow Rate FiO2 11/05/16 08:00 96.0 63 19 107/77 96 11/04/16 20:00 97.2 87 20 113/75 96 I/O 11/04/16 11/04/16 11/04/16 11/05/16 11/05/16 11/05/16 07:00 15:00 23:00 07:00 15:00 23:00 Intake Total 500 ml 100 ml Output Total 300 ml 550 ml 300 ml Balance -300 ml -50 ml -200 ml Tube Feeding 300 ml Other 200 ml 100 ml Output Urine Total 300 ml 550 ml 300 ml # Bowel Movements 0 0 Objective Remarks GENERAL: Well-developed, well-nourished, in no acute distress. HEENT: Head is normocephalic without any lesions or masses noted. Facial features are symmetric. Eyes: Extraocular muscles are intact. Conjunctivae were clear. NECK: Trachea midline no deviation. CARDIAC: Regular rhythm, regular rate. S1/S2 are heard. No murmurs gallops or rubs. LUNGS: Clear to auscultation bilaterally. No wheeze, rhonchi or rales. No use of accessory muscles on inspiration or expiration. ABDOMEN: Soft, nontender. Nondistended. Bowel sounds heard in all 4 quadrants. No organomegaly or masses. Negative rebound, negative guarding, suprapubic catheter in place, PEG tube noted EXTREMITIES: No edema, pulses are equal bilaterally. No cyanosis or clubbing NEUROLOGY: Mood and affect appear appropriate. Cranial nerves II through XII grossly intact. Moving all extremities Procedures None Urinary Catheter: Yes Assessment to: Continue Soto insert reason: Obstruction/Retention Date of Insertion: Oct 30, 2016 Vascular Central Line Catheter: No A/P Assessment and Plan Weakness: Continue physical therapy Nursing staff to get patient up out of bed at least 3 times daily Dementia with inappropriate behavior, mood disorder improved Patient has been hospitalized for similar events in 2015 Consulted psychiatry for further evaluation, who indicated that this is a frontal lobe dementia Risperdal discontinued at family's request Continue Remeron Parkinson's disease: Patient has dementia and resting tremor. Chronic, stable. GI bleed with presenting of Upper GI bleed, patient with intermittent rectal bleeding: Resolved Hemoglobin continues to remain stable GI was following and reevaluated on 05/04/16 Presumed hemorrhoids, status post Anusol HC for 2 weeks Continue PPI. Protein calorie malnutrition: Improving Consulted dietitian who indicated that patient may be converted to bolus feeding Jevity 1.5, 1.5, 360ml(1.5 cans)@ 0800, 1100, 1400 and 240ml(1-can)@ 1700 and 2000 Prealbumin level 24 Ensure Enlive 3 times a day since pudding 3 times a day Excoriation noted around PEG tube, resolved Hypotension with episodes of hypertension: Stable Continue monitor blood pressure Continue Midodrine. Mild obstructive uropathy: Resolved. Appreciate urology recommendations. Suprapubic catheter in place, improved after replacement of Soto Abdominal pelvis CT 03/06/16 shows resolution of right sided hydronephrosis. 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 Stage I decubitus ulcer, sacral skin tear: Resolved Continue wound care. Seborrhea dermatitis, resolved Status post Hydrocortisone cream for 2 weeks Palliative care evaluation According to palliative care notes. Family wishes aggressive management, they are expecting him to improve, go to a rehabilitation facility and then improve enough to go home. They are deferring hospice. DVT prophylaxis: SCDs. Avoid chemical prophylaxis secondary to GI bleed. Records reviewed, no change in clinical status or treatment plan Discharge Planning Discharge planning per case management. Case management still trying to reach out to son and DCF to help with nursing facilities for acceptance. Jaguar Walker Nov 05, 2016 10:29
[2016-11-05 20:00] VITALS: BP 96/61; PULSE 71; RESP 20; TEMP 98; O2SAT 96
[2016-11-05] MEDS: MIRTAZAPINE 15 MG TAB PEG SCH (20:34)
[2016-11-06] MEDS: MIDODRINE 5 MG TAB PO SCH ×3 (06:26→16:51)
[2016-11-06 08:00] VITALS: BP 134/70; PULSE 85; RESP 17; TEMP 97.6; O2SAT 96
[2016-11-06] MEDS: FREE WATER G-TUBE SCH (08:57)
[2016-11-06] MEDS: ALLOPURINOL 100 MG TAB PEG SCH (08:57)
[2016-11-06] MEDS: LANSOPRAZOLE SOLUTAB 30 MG TAB PEG SCH (08:57)
--- NOTE | 2016-11-06 13:23 | HHI.PR ---
Subjective Remarks Patient seen and examined today for follow-up on dementia and weakness. Patient does not indicate any new complaints. There is been absolutely no change in the patients clinical status. Objective Vitals Vital Signs Date Time Temp Pulse Resp B/P Pulse Ox O2 Delivery O2 Flow Rate FiO2 11/06/16 08:00 97.6 85 17 134/70 96 11/05/16 20:00 98.0 71 20 96/61 96 I/O 11/05/16 11/05/16 11/05/16 11/06/16 11/06/16 11/06/16 07:00 15:00 23:00 07:00 15:00 23:00 Intake Total 100 ml 0 ml 440 ml Output Total 300 ml 200 ml 350 ml 400 ml Balance -200 ml -200 ml 90 ml -400 ml Intake Oral 0 ml 0 ml Tube Feeding 240 ml Tube Irrigant 200 ml Other 100 ml Output Urine Total 300 ml 200 ml 350 ml 400 ml # Bowel Movements 0 0 0 Objective Remarks GENERAL: Well-developed, well-nourished, in no acute distress. HEENT: Head is normocephalic without any lesions or masses noted. Facial features are symmetric. Eyes: Extraocular muscles are intact. Conjunctivae were clear. NECK: Trachea midline no deviation. CARDIAC: Regular rhythm, regular rate. S1/S2 are heard. No murmurs gallops or rubs. LUNGS: Clear to auscultation bilaterally. No wheeze, rhonchi or rales. No use of accessory muscles on inspiration or expiration. ABDOMEN: Soft, nontender. Nondistended. Bowel sounds heard in all 4 quadrants. No organomegaly or masses. Negative rebound, negative guarding, suprapubic catheter in place, PEG tube noted EXTREMITIES: No edema, pulses are equal bilaterally. No cyanosis or clubbing NEUROLOGY: Mood and affect appear appropriate. Cranial nerves II through XII grossly intact. Moving all extremities Procedures None Urinary Catheter: Yes (suprapubic catheter) Assessment to: Continue Soto insert reason: Obstruction/Retention Date of Insertion: Oct 30, 2016 Vascular Central Line Catheter: No A/P Assessment and Plan Weakness: Continue physical therapy Nursing staff to get patient up out of bed at least 3 times daily Dementia with inappropriate behavior, mood disorder improved Patient has been hospitalized for similar events in 2015 Consulted psychiatry for further evaluation, who indicated that this is a frontal lobe dementia Risperdal discontinued at family's request Continue Remeron Parkinson's disease: Patient has dementia and resting tremor. Chronic, stable. GI bleed with presenting of Upper GI bleed, patient with intermittent rectal bleeding: Resolved Hemoglobin continues to remain stable GI was following and reevaluated on 05/04/16 Presumed hemorrhoids, status post Anusol HC for 2 weeks Continue PPI. Protein calorie malnutrition: Improving Consulted dietitian who indicated that patient may be converted to bolus feeding Jevity 1.5, 1.5, 360ml(1.5 cans)@ 0800, 1100, 1400 and 240ml(1-can)@ 1700 and 2000 Prealbumin level 24 Ensure Enlive 3 times a day since pudding 3 times a day Excoriation noted around PEG tube, resolved Hypotension with episodes of hypertension: Stable Continue monitor blood pressure Continue Midodrine. Mild obstructive uropathy: Resolved. Appreciate urology recommendations. Suprapubic catheter in place, improved after replacement of Soto Abdominal pelvis CT 03/06/16 shows resolution of right sided hydronephrosis. 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 Stage I decubitus ulcer, sacral skin tear: Resolved Continue wound care. Seborrhea dermatitis, resolved Status post Hydrocortisone cream for 2 weeks Palliative care evaluation According to palliative care notes. Family wishes aggressive management, they are expecting him to improve, go to a rehabilitation facility and then improve enough to go home. They are deferring hospice. DVT prophylaxis: SCDs. Avoid chemical prophylaxis secondary to GI bleed. Records reviewed, no change in clinical status or treatment plan Discharge Planning Discharge planning per case management. Case management still trying to reach out to son and DCF to help with nursing facilities for acceptance. Jaguar Walker Nov 06, 2016 13:23
[2016-11-06 20:00] VITALS: BP 109/66; PULSE 74; RESP 20; TEMP 99.1; O2SAT 95
[2016-11-06] MEDS: MIRTAZAPINE 15 MG TAB PEG SCH (20:00)
[2016-11-07] MEDS: MIDODRINE 5 MG TAB PO SCH ×3 (06:05→17:21)
[2016-11-07 08:00] VITALS: BP 112/68; PULSE 61; RESP 18; TEMP 97; O2SAT 95
[2016-11-07] MEDS: LANSOPRAZOLE SOLUTAB 30 MG TAB PEG SCH (08:13)
[2016-11-07] MEDS: FREE WATER G-TUBE SCH (08:14)
[2016-11-07] MEDS: ALLOPURINOL 100 MG TAB PEG SCH (08:14)
--- NOTE | 2016-11-07 09:06 | HHI.PR ---
Subjective Remarks Patient seen and examined today. Patient denies any new complaints. No change in clinical status. Objective Vitals Vital Signs Date Time Temp Pulse Resp B/P Pulse Ox O2 Delivery O2 Flow Rate FiO2 11/06/16 20:00 99.1 74 20 109/66 95 I/O 11/06/16 11/06/16 11/06/16 11/07/16 11/07/16 11/07/16 07:00 15:00 23:00 07:00 15:00 23:00 Intake Total 1480 ml 630 ml 0 ml Output Total 400 ml 250 ml 300 ml 300 ml Balance -400 ml 1230 ml 330 ml -300 ml Intake Oral 0 ml 0 ml Tube Feeding 1080 ml 480 ml Tube Irrigant 100 ml 150 ml Other 300 ml Output Urine Total 400 ml 250 ml 300 ml 300 ml # Bowel Movements 0 1 1 Objective Remarks GENERAL: Well-developed, well-nourished, in no acute distress. HEENT: Head is normocephalic without any lesions or masses noted. Facial features are symmetric. Eyes: Extraocular muscles are intact. Conjunctivae were clear. NECK: Trachea midline no deviation. CARDIAC: Regular rhythm, regular rate. S1/S2 are heard. No murmurs gallops or rubs. LUNGS: Clear to auscultation bilaterally. No wheeze, rhonchi or rales. No use of accessory muscles on inspiration or expiration. ABDOMEN: Soft, nontender. Nondistended. Bowel sounds heard in all 4 quadrants. No organomegaly or masses. Negative rebound, negative guarding, suprapubic catheter in place, PEG tube noted EXTREMITIES: No edema, pulses are equal bilaterally. No cyanosis or clubbing NEUROLOGY: Mood and affect appear appropriate. Cranial nerves II through XII grossly intact. Moving all extremities Procedures None Urinary Catheter: Yes (suprapubic catheter) Assessment to: Continue Date of Insertion: Oct 30, 2016 Vascular Central Line Catheter: No A/P Assessment and Plan Weakness: Continue physical therapy Nursing staff to get patient up out of bed at least 3 times daily Dementia with inappropriate behavior, mood disorder improved Patient has been hospitalized for similar events in 2015 Consulted psychiatry for further evaluation, who indicated that this is a frontal lobe dementia Risperdal discontinued at family's request Continue Remeron Parkinson's disease: Patient has dementia and resting tremor. Chronic, stable. GI bleed with presenting of Upper GI bleed, patient with intermittent rectal bleeding: Resolved Hemoglobin continues to remain stable GI was following and reevaluated on 05/04/16 Presumed hemorrhoids, status post Anusol HC for 2 weeks Continue PPI. Protein calorie malnutrition: Improving Consulted dietitian who indicated that patient may be converted to bolus feeding Jevity 1.5, 1.5, 360ml(1.5 cans)@ 0800, 1100, 1400 and 240ml(1-can)@ 1700 and 2000 Prealbumin level 24 Ensure Enlive 3 times a day since pudding 3 times a day Excoriation noted around PEG tube, resolved Hypotension with episodes of hypertension: Stable Continue monitor blood pressure Continue Midodrine. Mild obstructive uropathy: Resolved. Appreciate urology recommendations. Suprapubic catheter in place, improved after replacement of Soto Abdominal pelvis CT 03/06/16 shows resolution of right sided hydronephrosis. 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 Stage I decubitus ulcer, sacral skin tear: Resolved Continue wound care. Seborrhea dermatitis, resolved Status post Hydrocortisone cream for 2 weeks Palliative care evaluation According to palliative care notes. Family wishes aggressive management, they are expecting him to improve, go to a rehabilitation facility and then improve enough to go home. They are deferring hospice. DVT prophylaxis: SCDs. Avoid chemical prophylaxis secondary to GI bleed. Records reviewed, no change in clinical status or treatment plan Discharge Planning Discharge planning per case management. Case management still trying to reach out to son and DCF to help with nursing facilities for acceptance. Jaguar Walker Nov 07, 2016 09:06
[2016-11-07 20:00] VITALS: BP 113/72; PULSE 67; RESP 16; TEMP 96.5; O2SAT 96
[2016-11-07] MEDS: MIRTAZAPINE 15 MG TAB PEG SCH (21:00)
[2016-11-08] MEDS: MIDODRINE 5 MG TAB PO SCH ×3 (06:35→17:00)
[2016-11-08 08:00] VITALS: BP_SYST 115; BP_SYST 140; BP_DIAS 75; BP_DIAS 88; PULSE 106; PULSE 63; RESP 18; TEMP 97.8; O2SAT 100; O2SAT 95
[2016-11-08] MEDS: FREE WATER G-TUBE SCH (08:06)
[2016-11-08] MEDS: ALLOPURINOL 100 MG TAB PEG SCH (08:06)
[2016-11-08] MEDS: LANSOPRAZOLE SOLUTAB 30 MG TAB PEG SCH (08:06)
--- NOTE | 2016-11-08 08:12 | HHI.PR ---
Subjective Remarks Patient seen and examined today for follow-up on dementia and weakness. Patient denies any new complaints. No change in clinical status. Objective Vitals Vital Signs Date Time Temp Pulse Resp B/P Pulse Ox O2 Delivery O2 Flow Rate FiO2 11/07/16 20:00 96.5 67 16 113/72 96 I/O 11/07/16 11/07/16 11/07/16 11/08/16 11/08/16 11/08/16 07:00 15:00 23:00 07:00 15:00 23:00 Intake Total 0 ml 1480 ml 630 ml 50 ml Output Total 300 ml 500 ml 750 ml 750 ml Balance -300 ml 980 ml -120 ml -700 ml Intake Oral 0 ml Tube Feeding 1080 ml 480 ml Tube Irrigant 400 ml 150 ml 50 ml Output Urine Total 300 ml 500 ml 750 ml 750 ml Stool Total 0 ml # Bowel Movements 1 1 2 Objective Remarks GENERAL: Well-developed, well-nourished, in no acute distress. HEENT: Head is normocephalic without any lesions or masses noted. Facial features are symmetric. Eyes: Extraocular muscles are intact. Conjunctivae were clear. NECK: Trachea midline no deviation. CARDIAC: Regular rhythm, regular rate. S1/S2 are heard. No murmurs gallops or rubs. LUNGS: Clear to auscultation bilaterally. No wheeze, rhonchi or rales. No use of accessory muscles on inspiration or expiration. ABDOMEN: Soft, nontender. Nondistended. Bowel sounds heard in all 4 quadrants. No organomegaly or masses. Negative rebound, negative guarding, suprapubic catheter in place, PEG tube noted EXTREMITIES: No edema, pulses are equal bilaterally. No cyanosis or clubbing NEUROLOGY: Mood and affect appear appropriate. Cranial nerves II through XII grossly intact. Moving all extremities Procedures None Urinary Catheter: Yes (suprapubic catheter) Assessment to: Continue Soto insert reason: Obstruction/Retention Date of Insertion: Oct 30, 2016 Vascular Central Line Catheter: No A/P Assessment and Plan Weakness: Continue physical therapy Nursing staff to get patient up out of bed at least 3 times daily Dementia with inappropriate behavior, mood disorder improved Patient has been hospitalized for similar events in 2015 Consulted psychiatry for further evaluation, who indicated that this is a frontal lobe dementia Risperdal discontinued at family's request Continue Remeron Parkinson's disease: Patient has dementia and resting tremor. Chronic, stable. GI bleed with presenting of Upper GI bleed, patient with intermittent rectal bleeding: Resolved Hemoglobin continues to remain stable GI was following and reevaluated on 05/04/16 Presumed hemorrhoids, status post Anusol HC for 2 weeks Continue PPI. Protein calorie malnutrition: Improving Consulted dietitian who indicated that patient may be converted to bolus feeding Jevity 1.5, 1.5, 360ml(1.5 cans)@ 0800, 1100, 1400 and 240ml(1-can)@ 1700 and 2000 Prealbumin level 24 Ensure Enlive 3 times a day since pudding 3 times a day Excoriation noted around PEG tube, resolved Hypotension with episodes of hypertension: Stable Continue monitor blood pressure Continue Midodrine. Mild obstructive uropathy: Resolved. Appreciate urology recommendations. Suprapubic catheter in place, improved after replacement of Soto Abdominal pelvis CT 03/06/16 shows resolution of right sided hydronephrosis. 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 Stage I decubitus ulcer, sacral skin tear: Resolved Continue wound care. Seborrhea dermatitis, resolved Status post Hydrocortisone cream for 2 weeks Palliative care evaluation According to palliative care notes. Family wishes aggressive management, they are expecting him to improve, go to a rehabilitation facility and then improve enough to go home. They are deferring hospice. DVT prophylaxis: SCDs. Avoid chemical prophylaxis secondary to GI bleed. Records reviewed, no change in clinical status or treatment plan Discharge Planning Discharge planning per case management. Case management still trying to reach out to son and DCF to help with nursing facilities for acceptance. Jaguar Walker Nov 08, 2016 08:11
[2016-11-08 20:00] VITALS: BP 126/81; PULSE 78; RESP 16; TEMP 97.9; O2SAT 95
[2016-11-08] MEDS: MIRTAZAPINE 15 MG TAB PEG SCH (22:22)
[2016-11-09] MEDS: MIDODRINE 5 MG TAB PO SCH ×3 (06:22→16:59)
[2016-11-09] MEDS: LANSOPRAZOLE SOLUTAB 30 MG TAB PEG SCH (07:58)
[2016-11-09] MEDS: ALLOPURINOL 100 MG TAB PEG SCH (07:58)
[2016-11-09] MEDS: FREE WATER G-TUBE SCH (07:58)
[2016-11-09 08:00] VITALS: BP 106/70; PULSE 78; RESP 18; TEMP 97.5; O2SAT 100
--- NOTE | 2016-11-09 08:54 | HHI.PR ---
Subjective Remarks Patient sees examined today for follow-up on weakness and dementia. Nursing staff indicates that patient had a accident with his bowel movements and there was stool noted around his suprapubic catheter. Otherwise, patient doing well, no new complaints. No change in clinical status Objective Vitals Vital Signs Date Time Temp Pulse Resp B/P Pulse Ox O2 Delivery O2 Flow Rate FiO2 11/08/16 20:00 97.9 78 16 126/81 95 I/O 11/08/16 11/08/16 11/08/16 11/09/16 11/09/16 11/09/16 07:00 15:00 23:00 07:00 15:00 23:00 Intake Total 50 ml 340 ml 50 ml Output Total 750 ml 850 ml 400 ml Balance -700 ml -510 ml -350 ml Tube Feeding 240 ml Tube Irrigant 50 ml 100 ml 50 ml Output Urine Total 750 ml 850 ml 400 ml Stool Total 0 ml # Bowel Movements 2 1 2 Objective Remarks GENERAL: Well-developed, well-nourished, in no acute distress. HEENT: Head is normocephalic without any lesions or masses noted. Facial features are symmetric. Eyes: Extraocular muscles are intact. Conjunctivae were clear. NECK: Trachea midline no deviation. CARDIAC: Regular rhythm, regular rate. S1/S2 are heard. No murmurs gallops or rubs. LUNGS: Clear to auscultation bilaterally. No wheeze, rhonchi or rales. No use of accessory muscles on inspiration or expiration. ABDOMEN: Soft, nontender. Nondistended. Bowel sounds heard in all 4 quadrants. No organomegaly or masses. Negative rebound, negative guarding, suprapubic catheter in place, PEG tube noted EXTREMITIES: No edema, pulses are equal bilaterally. No cyanosis or clubbing NEUROLOGY: Mood and affect appear appropriate. Cranial nerves II through XII grossly intact. Moving all extremities Procedures None Urinary Catheter: Yes (suprapubic catheter) Assessment to: Continue Soto insert reason: Obstruction/Retention Date of Insertion: Oct 30, 2016 Vascular Central Line Catheter: No A/P Assessment and Plan Weakness: Continue physical therapy Nursing staff to get patient up out of bed at least 3 times daily Dementia with inappropriate behavior, mood disorder improved Patient has been hospitalized for similar events in 2015 Consulted psychiatry for further evaluation, who indicated that this is a frontal lobe dementia Risperdal discontinued at family's request Continue Remeron Parkinson's disease: Patient has dementia and resting tremor. Chronic, stable. GI bleed with presenting of Upper GI bleed, patient with intermittent rectal bleeding: Resolved Hemoglobin continues to remain stable GI was following and reevaluated on 05/04/16 Presumed hemorrhoids, status post Anusol HC for 2 weeks Continue PPI. Protein calorie malnutrition: Improving Consulted dietitian who indicated that patient may be converted to bolus feeding Jevity 1.5, 1.5, 360ml(1.5 cans)@ 0800, 1100, 1400 and 240ml(1-can)@ 1700 and 2000 Prealbumin level 24 Ensure Enlive 3 times a day since pudding 3 times a day Excoriation noted around PEG tube, resolved Hypotension with episodes of hypertension: Stable Continue monitor blood pressure Continue Midodrine. Mild obstructive uropathy: Resolved. Appreciate urology recommendations. Suprapubic catheter in place, improved after replacement of Soto Abdominal pelvis CT 03/06/16 shows resolution of right sided hydronephrosis. 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 Stage I decubitus ulcer, sacral skin tear: Resolved Continue wound care. Seborrhea dermatitis, resolved Status post Hydrocortisone cream for 2 weeks Palliative care evaluation According to palliative care notes. Family wishes aggressive management, they are expecting him to improve, go to a rehabilitation facility and then improve enough to go home. They are deferring hospice. DVT prophylaxis: SCDs. Avoid chemical prophylaxis secondary to GI bleed. Records reviewed, no change in clinical status or treatment plan Discharge Planning Discharge planning per case management. Case management still trying to reach out to son and DCF to help with nursing facilities for acceptance. Jaguar Walker Nov 09, 2016 08:54
[2016-11-09 20:00] VITALS: BP 105/68; PULSE 73; RESP 20; TEMP 97.3; O2SAT 97
[2016-11-09] MEDS: MIRTAZAPINE 15 MG TAB PEG SCH (20:42)
[2016-11-10] MEDS: MIDODRINE 5 MG TAB PO SCH ×3 (06:19→16:37)
[2016-11-10] MEDS: LANSOPRAZOLE SOLUTAB 30 MG TAB PEG SCH (07:22)
[2016-11-10] MEDS: ALLOPURINOL 100 MG TAB PEG SCH (07:22)
[2016-11-10] MEDS: FREE WATER G-TUBE SCH (07:22)
[2016-11-10 08:00] VITALS: BP 103/56; PULSE 67; RESP 16; TEMP 97.5; O2SAT 97
--- NOTE | 2016-11-10 10:54 | HHI.PR ---
Subjective Remarks Patient seen and examined today for follow-up on dementia, weakness. Patient lying in bed. Denies any new complaints. No change in clinical status. Objective Vitals Vital Signs Date Time Temp Pulse Resp B/P Pulse Ox O2 Delivery O2 Flow Rate FiO2 11/10/16 08:00 97.5 67 16 103/56 97 11/09/16 20:00 97.3 73 20 105/68 97 I/O 11/09/16 11/09/16 11/09/16 11/10/16 11/10/16 11/10/16 07:00 15:00 23:00 07:00 15:00 23:00 Intake Total 50 ml 0 ml Output Total 400 ml 750 ml 200 ml 350 ml Balance -350 ml -750 ml -200 ml -350 ml Intake Oral 0 ml Tube Irrigant 50 ml Output Urine Total 400 ml 750 ml 200 ml 350 ml # Bowel Movements 2 0 1 1 Objective Remarks GENERAL: Well-developed, well-nourished, in no acute distress. HEENT: Head is normocephalic without any lesions or masses noted. Facial features are symmetric. Eyes: Extraocular muscles are intact. Conjunctivae were clear. NECK: Trachea midline no deviation. CARDIAC: Regular rhythm, regular rate. S1/S2 are heard. No murmurs gallops or rubs. LUNGS: Clear to auscultation bilaterally. No wheeze, rhonchi or rales. No use of accessory muscles on inspiration or expiration. ABDOMEN: Soft, nontender. Nondistended. Bowel sounds heard in all 4 quadrants. No organomegaly or masses. Negative rebound, negative guarding, suprapubic catheter in place, PEG tube noted EXTREMITIES: No edema, pulses are equal bilaterally. No cyanosis or clubbing NEUROLOGY: Mood and affect appear appropriate. Cranial nerves II through XII grossly intact. Moving all extremities Procedures None Urinary Catheter: No Assessment to: Continue Soto insert reason: Obstruction/Retention Date of Insertion: Nov 08, 2016 Vascular Central Line Catheter: No A/P Assessment and Plan Weakness: Continue physical therapy Nursing staff to get patient up out of bed at least 3 times daily Dementia with inappropriate behavior, mood disorder improved Patient has been hospitalized for similar events in 2015 Consulted psychiatry for further evaluation, who indicated that this is a frontal lobe dementia Risperdal discontinued at family's request Continue Remeron Parkinson's disease: Patient has dementia and resting tremor. Chronic, stable. GI bleed with presenting of Upper GI bleed, patient with intermittent rectal bleeding: Resolved Hemoglobin continues to remain stable GI was following and reevaluated on 05/04/16 Presumed hemorrhoids, status post Anusol HC for 2 weeks Continue PPI. Protein calorie malnutrition: Improving Consulted dietitian who indicated that patient may be converted to bolus feeding Jevity 1.5, 1.5, 360ml(1.5 cans)@ 0800, 1100, 1400 and 240ml(1-can)@ 1700 and 2000 Prealbumin level 24 Ensure Enlive 3 times a day since pudding 3 times a day Excoriation noted around PEG tube, resolved Hypotension with episodes of hypertension: Stable Continue monitor blood pressure Continue Midodrine. Mild obstructive uropathy: Resolved. Appreciate urology recommendations. Suprapubic catheter in place, improved after replacement of Soto Abdominal pelvis CT 03/06/16 shows resolution of right sided hydronephrosis. 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 Stage I decubitus ulcer, sacral skin tear: Resolved Continue wound care. Seborrhea dermatitis, resolved Status post Hydrocortisone cream for 2 weeks Palliative care evaluation According to palliative care notes. Family wishes aggressive management, they are expecting him to improve, go to a rehabilitation facility and then improve enough to go home. They are deferring hospice. DVT prophylaxis: SCDs. Avoid chemical prophylaxis secondary to GI bleed. Records reviewed, no change in clinical status or treatment plan Discharge Planning Discharge planning per case management. Case management still trying to reach out to son and DCF to help with nursing facilities for acceptance. Jaguar Walker Nov 10, 2016 10:54
[2016-11-10 20:00] VITALS: BP 108/64; PULSE 70; RESP 16; TEMP 97.8; O2SAT 94
[2016-11-10] MEDS: MIRTAZAPINE 15 MG TAB PEG SCH (20:44)
[2016-11-11 06:09] LABS: AUTOMATED NEUTROPHIL # 3.5 TH/MM3 (1.8-7.7); BASOPHIL # 0.1 TH/MM3 (0-0.2); BASOPHIL % 1.7 % (0.0-2.0); EOSINOPHIL # 0.3 TH/MM3 (0-0.4); EOSINOPHIL % 3.6 % (0.0-4.0); HEMATOCRIT 42.5 % (39.0-51.0); HEMO FLAGS DIFF FINAL; LYMPH % 40.9 % (9.0-44.0); MEAN CELL VOLUME 86.6 FL (80.0-100.0); MEAN CORPUSCULAR HEMOGLOBIN 28.3 PG (27.0-34.0); MEAN CORPUSCULAR HGB CONC 32.7 % (32.0-36.0); NEUT % 48.8 % (16.0-70.0); PLATELET COUNT 149 TH/MM3 (150-450); RED BLOOD COUNT 4.91 MIL/MM3 (4.50-5.90); RED CELL DISTRIBUTION WIDTH 15.3 % (11.6-17.2); WHITE BLOOD COUNT 7.3 TH/MM3 (4.0-11.0)
[2016-11-11] MEDS: MIDODRINE 5 MG TAB PO SCH ×3 (06:16→17:54)
[2016-11-11 06:30] LABS: CHLORIDE 102 MEQ/L (98-107); POTASSIUM 4.1 MEQ/L (3.5-5.1); SODIUM (NA) 140 MEQ/L (136-145)
[2016-11-11 06:33] LABS: ANION GAP 6 MEQ/L (5-15); BICARBONATE 31.7 MEQ/L (21.0-32.0); MAGNESIUM 2.2 MG/DL (1.5-2.5)
[2016-11-11 06:34] LABS: BLOOD UREA NITROGEN 23 MG/DL (7-18)
[2016-11-11 06:36] LABS: ALT (GPT) 17 U/L (12-78); AST (GOT) 30 U/L (15-37)
[2016-11-11 06:37] LABS: GLOMERULAR FILTRATION RATE 87 ML/MIN (>89)
[2016-11-11 06:38] LABS: TOTAL BILIRUBIN ADULT 0.4 MG/DL (0.2-1.0)
[2016-11-11 06:39] LABS: ALKALINE PHOSPHATASE 108 U/L (45-117)
[2016-11-11] MEDS: ALLOPURINOL 100 MG TAB PEG SCH (07:20)
[2016-11-11] MEDS: FREE WATER G-TUBE SCH (07:20)
[2016-11-11] MEDS: LANSOPRAZOLE SOLUTAB 30 MG TAB PEG SCH (07:20)
[2016-11-11 08:00] VITALS: BP 108/71; PULSE 57; RESP 18; TEMP 95.6; O2SAT 95
--- NOTE | 2016-11-11 09:21 | HHI.PR ---
Subjective Remarks Patient seen and examined today for follow-up on dementia and generalized weakness. No change in clinical status. Awaiting behavioral health case manager discharge planning, Objective Vitals Vital Signs Date Time Temp Pulse Resp B/P Pulse Ox O2 Delivery O2 Flow Rate FiO2 11/11/16 08:00 95.6 57 18 108/71 95 11/10/16 20:00 97.8 70 16 108/64 94 I/O 11/10/16 11/10/16 11/10/16 11/11/16 11/11/16 11/11/16 07:00 15:00 23:00 07:00 15:00 23:00 Intake Total 1940 ml Output Total 350 ml 875 ml 200 ml Balance -350 ml 1065 ml -200 ml Tube Feeding 1440 ml Other 500 ml Output Urine Total 350 ml 875 ml 200 ml # Bowel Movements 1 1 1 Result Diagram: 11/11/16 0600 11/11/16 0600 Objective Remarks GENERAL: Well-developed, well-nourished, in no acute distress. HEENT: Head is normocephalic without any lesions or masses noted. Facial features are symmetric. Eyes: Extraocular muscles are intact. Conjunctivae were clear. NECK: Trachea midline no deviation. CARDIAC: Regular rhythm, regular rate. S1/S2 are heard. No murmurs gallops or rubs. LUNGS: Clear to auscultation bilaterally. No wheeze, rhonchi or rales. No use of accessory muscles on inspiration or expiration. ABDOMEN: Soft, nontender. Nondistended. Bowel sounds heard in all 4 quadrants. No organomegaly or masses. Negative rebound, negative guarding, suprapubic catheter in place, PEG tube noted EXTREMITIES: No edema, pulses are equal bilaterally. No cyanosis or clubbing NEUROLOGY: Mood and affect appear appropriate. Cranial nerves II through XII grossly intact. Moving all extremities Procedures None Urinary Catheter: Yes (suprapubic catheter) Assessment to: Continue Soto insert reason: Obstruction/Retention Date of Insertion: Nov 08, 2016 Vascular Central Line Catheter: No A/P Assessment and Plan Weakness: Continue physical therapy Nursing staff to get patient up out of bed at least 3 times daily Dementia with inappropriate behavior, mood disorder improved Patient has been hospitalized for similar events in 2014 Consulted psychiatry for further evaluation, who indicated that this is a frontal lobe dementia Risperdal discontinued at family's request Continue Remeron Parkinson's disease: Patient has dementia and resting tremor. Chronic, stable. GI bleed with presenting of Upper GI bleed, patient with intermittent rectal bleeding: Resolved Hemoglobin continues to remain stable GI was following and reevaluated on 05/04/16 Presumed hemorrhoids, status post Anusol HC for 2 weeks Continue PPI. Protein calorie malnutrition: Improving Consulted dietitian who indicated that patient may be converted to bolus feeding Jevity 1.5, 1.5, 360ml(1.5 cans)@ 0800, 1100, 1400 and 240ml(1-can)@ 1700 and 2000 Prealbumin level 24 Ensure Enlive 3 times a day since pudding 3 times a day Excoriation noted around PEG tube, resolved Hypotension with episodes of hypertension: Stable Continue monitor blood pressure Continue Midodrine. Mild obstructive uropathy: Resolved. Appreciate urology recommendations. Suprapubic catheter in place, improved after replacement of Soto Abdominal pelvis CT 03/06/16 shows resolution of right sided hydronephrosis. 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 Stage I decubitus ulcer, sacral skin tear: Resolved Continue wound care. Seborrhea dermatitis, resolved Status post Hydrocortisone cream for 2 weeks Palliative care evaluation According to palliative care notes. Family wishes aggressive management, they are expecting him to improve, go to a rehabilitation facility and then improve enough to go home. They are deferring hospice. DVT prophylaxis: SCDs. Avoid chemical prophylaxis secondary to GI bleed. Records reviewed, no change in clinical status or treatment plan Discharge Planning Discharge planning per case management. Case management still trying to reach out to son and DCF to help with nursing facilities for acceptance. Jaguar Walker Nov 11, 2016 09:21
[2016-11-11 20:00] VITALS: BP 92/62; PULSE 75; RESP 21; TEMP 97.4; O2SAT 95
[2016-11-11] MEDS: MIRTAZAPINE 15 MG TAB PEG SCH (20:02)
[2016-11-12] MEDS: MIDODRINE 5 MG TAB PO SCH ×3 (06:10→16:51)
[2016-11-12 08:00] VITALS: BP 107/67; PULSE 59; RESP 18; TEMP 97.2; O2SAT 96
[2016-11-12] MEDS: FREE WATER G-TUBE SCH (09:00)
[2016-11-12] MEDS: LANSOPRAZOLE SOLUTAB 30 MG TAB PEG SCH (09:53)
[2016-11-12] MEDS: ALLOPURINOL 100 MG TAB PEG SCH (09:53)
--- NOTE | 2016-11-12 13:38 | HHI.PR ---
Subjective Remarks Follow-up for dementia. No acute complaints. Objective Vitals Vital Signs Date Time Temp Pulse Resp B/P Pulse Ox O2 Delivery O2 Flow Rate FiO2 11/12/16 08:00 97.2 59 18 107/67 96 11/11/16 20:00 97.4 75 21 92/62 95 I/O 11/11/16 11/11/16 11/11/16 11/12/16 11/12/16 11/12/16 07:00 15:00 23:00 07:00 15:00 23:00 Intake Total 0 ml 390 ml 200 ml Output Total 200 ml 450 ml 250 ml 300 ml Balance -200 ml -450 ml 140 ml -100 ml Intake Oral 0 ml Tube Feeding 240 ml Tube Irrigant 150 ml 200 ml Output Urine Total 200 ml 450 ml 250 ml 300 ml # Bowel Movements 1 2 2 2 Result Diagram: 11/11/16 0600 11/11/16 0600 Objective Remarks GENERAL: Elderly male in no apparent distress. CARDIOVASCULAR: Regular rate and rhythm. RESPIRATORY: No accessory muscle use. CTAB. GASTROINTESTINAL: Abdomen soft, non-tender, nondistended. NEURO: Nods to questions but does not speak aloud. Procedures None Urinary Catheter: No Date of Insertion: Nov 08, 2016 Vascular Central Line Catheter: No A/P Assessment and Plan Dementia with inappropriate behavior, mood disorder improved Patient had inappropriate behavior which is resolved now. He has been very appropriate for a long time now. Patient has been hospitalized for similar events in 2015 Consulted psychiatry for further evaluation, who indicated that this is a frontal lobe dementia Risperdal 0.25 mg during the day, Risperdal 0.5 mg at night. Risperdal was discontinued per POA request. [facility] Psychiatry was reconsulted and is ok with discontinuation of Risperdal. Protein calorie malnutrition: Improving Consulted dietitian who indicated that patient may be converted to bolus feeding Jevity 1.5 w/ bolus 1.5 cans (360ml) @ 0800 and 2000 and 1 can (240ml) @ 1100, 1400 and 1700. Free Water Flush 100ml before and after each bolus feeding. Ensure Enlive tid and chocolate pudding tid. Patient desired to eat and speech therapy advised puree diet, thin liquids, but patient has not been eating. Engineering Scientist suggested considering appetite stimulant. This was discussed with attending, but we do not believe this would be beneficial for patient and would add unnecessary risk to the patient. Will continue with tube feeds only. Hematuria: Resolved. -Patient is not on anticoagulation. -Hemoglobin normal. -Creatinine is normal. -UA 4/5 with innumerable RBCs, but urine sample not grossly bloody. Urinary tract infection, recurrent: Urine culture positive for Proteus mirabilis and GBS on 01/20. Patient completed course of antibiotics. Abdominal pelvis CT 03/06 shows decompressed bladder with circumferential bladder wall thickening and intraluminal air possibly indicating cystitis, but the patient had been afebrile with normal WBC count. Urine culture 05/31 with Serratia marcescens, Pseudomonas, and Enterococcus faecalis. Patient was started on antibiotics. Repeat urine culture on 06/04 only reveals contaminants. Urine culture 08/07 with Enterococcus faecalis and Pseudomonas Aeruginosa similar to previous culture on 05/31. Patient remains afebrile. CBC with normal white blood cell count. Continue to change Soto monthly. 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 Monitor and treat only if symptomatic. Mild obstructive uropathy: Resolved. Appreciate urology recommendations. Suprapubic catheter to be changed monthly; last changed 10/30/16. Abdominal pelvis CT 03/06/16 shows resolution of right sided hydronephrosis. Upper GI bleeding with recurrent rectal bleeding: Resolved. Hemoglobin stable. GI reevaluated patient on 05/04. Presumed hemorrhoids, s/p Anusol HC for total of 2 weeks. Continue PPI. Wound at suprapubic catheter site: Improved. Appears uninfected. Likely attributed to shearing from tubing. -S/p antibiotic ointment Seborrheic dermatitis: Improved. S/p Ketoconazole 2% shampoo and hydrocortisone lotion. S/p hydrocortisone 1% cream bid x 2 weeks. Chalazion: Nodule R upper eyelid. There is no evidence of preseptal cellulitis. -Warm compresses were applied but it was greater than 2 weeks without significant improvement. -Ophthalmology was consulted and evaluated patient on 03/26. S/p warm compresses and Tobradex 4 times a day OD x 2 weeks. Patient was intermittently compliant with eyedrops. -No worsening. Follow-up outpatient. Hypotension: Blood pressure labile. Continue Midodrine. Patient on max dose. Increase free water flushes as needed. Pre-renal azotemia: BUN elevated at 23 on 11/11/16. Continue free water flushes Monitor BMP periodically Stage I decubitus ulcer, sacral skin tear: Continue wound care. Frequent turning of patient. Candidal infection: buttocks affected with satellite lesions to the perineum. -S/p Nystatin and clotrimazole Weakness: Continue physical therapy Nursing staff to get patient up out of bed at least 3 times daily Palliative care evaluation According to palliative care notes family wishes aggressive management, they are expecting him to improve, go to a rehabilitation facility and then improve enough to go home. They are declining hospice. DVT prophylaxis: SCDs. Avoid chemical prophylaxis secondary to GI bleed. Discharge Planning 11/08/16: Son will still not assist with placement. trial manager is trying to get DCF to assist with possible court guardianship. Madeline Ortez Nov 12, 2016 13:38 09/27: Per CM, son states he can meet with [place] Rosario next week regarding father's placement. CM checking if senior care bed still available. 10/15: CM has tried contacting son but apparently there has been difficulty with him providing assistance. 10/28: trial manager continues to attempt to get son to return his call without response. CM continues to request help from DCF. trial manager indicates that there may need for a court order to get help with son to assist. Madeline Ortez Nov 12, 2016 13:38
[2016-11-12 20:00] VITALS: BP 89/56; PULSE 70; RESP 16; TEMP 97.2; O2SAT 96
[2016-11-12] MEDS: MIRTAZAPINE 15 MG TAB PEG SCH (20:30)
[2016-11-13] MEDS: MIDODRINE 5 MG TAB PO SCH ×3 (06:00→16:51)
[2016-11-13 08:00] VITALS: BP 118/72; PULSE 80; RESP 18; TEMP 97.8; O2SAT 95
[2016-11-13] MEDS: ALLOPURINOL 100 MG TAB PEG SCH (08:40)
[2016-11-13] MEDS: FREE WATER G-TUBE SCH (08:40)
[2016-11-13] MEDS: LANSOPRAZOLE SOLUTAB 30 MG TAB PEG SCH (08:40)
--- NOTE | 2016-11-13 11:31 | HHI.PR ---
Subjective Remarks Follow-up for dementia. No acute complaints. Objective Vitals Vital Signs Date Time Temp Pulse Resp B/P Pulse Ox O2 Delivery O2 Flow Rate FiO2 11/12/16 20:00 97.2 70 16 89/56 96 I/O 11/12/16 11/12/16 11/12/16 11/13/16 11/13/16 11/13/16 07:00 15:00 23:00 07:00 15:00 23:00 Intake Total 200 ml 2240 ml 300 ml Output Total 300 ml 900 ml 700 ml Balance -100 ml 1340 ml -400 ml Tube Feeding 1440 ml Tube Irrigant 200 ml 300 ml 300 ml Other 500 ml Output Urine Total 300 ml 900 ml 700 ml # Bowel Movements 2 2 0 Result Diagram: 11/11/1659911/11/16 06 Objective Remarks GENERAL: Elderly male in no apparent distress. CARDIOVASCULAR: Regular rate and rhythm. RESPIRATORY: No accessory muscle use. CTAB. GASTROINTESTINAL: Abdomen soft, non-tender, nondistended. NEURO: Nods to questions but does not speak aloud. Procedures None Urinary Catheter: No Date of Insertion: Nov 08, 2016 Vascular Central Line Catheter: No A/P Assessment and Plan Dementia with inappropriate behavior, mood disorder improved Patient had inappropriate behavior which is resolved now. He has been very appropriate for a long time now. Patient has been hospitalized for similar events in 2014 Consulted psychiatry for further evaluation, who indicated that this is a frontal lobe dementia Risperdal 0.25 mg during the day, Risperdal 0.5 mg at night. Risperdal was discontinued per POA request. Continue [facility] Psychiatry was reconsulted and is ok with discontinuation of Risperdal. Protein calorie malnutrition: Improving Consulted dietitian who indicated that patient may be converted to bolus feeding Jevity 1.5 w/ bolus 1.5 cans (360ml) @ 0800 and 2000 and 1 can (240ml) @ 1100, 1400 and 1700. Free Water Flush 100ml before and after each bolus feeding. Ensure Enlive tid and chocolate pudding tid. Patient desired to eat and speech therapy advised puree diet, thin liquids, but patient has not been eating. Shank Sander suggested considering appetite stimulant. This was discussed with attending, but we do not believe this would be beneficial for patient and would add unnecessary risk to the patient. Will continue with tube feeds only. Hematuria: Resolved. -Patient is not on anticoagulation. -Hemoglobin normal. -Creatinine is normal. -UA 4/5 with innumerable RBCs, but urine sample not grossly bloody. Urinary tract infection, recurrent: Urine culture positive for Proteus mirabilis and GBS on 01/20. Patient completed course of antibiotics. Abdominal pelvis CT 03/06 shows decompressed bladder with circumferential bladder wall thickening and intraluminal air possibly indicating cystitis, but the patient had been afebrile with normal WBC count. Urine culture 05/31 with Serratia marcescens, Pseudomonas, and Enterococcus faecalis. Patient was started on antibiotics. Repeat urine culture on 06/04 only reveals contaminants. Urine culture /5 with Enterococcus faecalis and Pseudomonas Aeruginosa similar to previous culture on 05/31. Patient remains afebrile. CBC with normal white blood cell count. Continue to change Soto monthly. 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 Monitor and treat only if symptomatic. Mild obstructive uropathy: Resolved. Appreciate urology recommendations. Suprapubic catheter to be changed monthly; last changed 10/30/16. Abdominal pelvis CT 03/06/16 shows resolution of right sided hydronephrosis. Upper GI bleeding with recurrent rectal bleeding: Resolved. Hemoglobin stable. GI reevaluated patient on 05/04. Presumed hemorrhoids, s/p Anusol HC for total of 2 weeks. Continue PPI. Wound at suprapubic catheter site: Improved. Appears uninfected. Likely attributed to shearing from tubing. -S/p antibiotic ointment Seborrheic dermatitis: Improved. S/p Ketoconazole 2% shampoo and hydrocortisone lotion. S/p hydrocortisone 1% cream bid x 2 weeks. Chalazion: Nodule R upper eyelid. There is no evidence of preseptal cellulitis. -Warm compresses were applied but it was greater than 2 weeks without significant improvement. -Ophthalmology was consulted and evaluated patient on 03/26. S/p warm compresses and Tobradex 4 times a day OD x 2 weeks. Patient was intermittently compliant with eyedrops. -No worsening. Follow-up outpatient. Hypotension: Blood pressure labile. Continue Midodrine. Patient on max dose. Increase free water flushes as needed. Pre-renal azotemia: BUN elevated at 23 on 11/11/16. Continue free water flushes Monitor BMP periodically Stage I decubitus ulcer, sacral skin tear: Continue wound care. Frequent turning of patient. Candidal infection: buttocks affected with satellite lesions to the perineum. -S/p Nystatin and clotrimazole Weakness: Continue physical therapy Nursing staff to get patient up out of bed at least 3 times daily Palliative care evaluation According to palliative care notes family wishes aggressive management, they are expecting him to improve, go to a rehabilitation facility and then improve enough to go home. They are declining hospice. DVT prophylaxis: SCDs. Avoid chemical prophylaxis secondary to GI bleed. Discharge Planning 11/08/16: Son will still not assist with placement. bench manager is trying to get DCF to assist with possible court guardianship. Madeline Ortez Nov 13, 2016 11:30 DCF to assist with possible court guardianship. Madeline Ortez Nov 13, 2016 11:30
[2016-11-13 20:00] VITALS: BP 108/68; PULSE 67; RESP 20; TEMP 98.1; O2SAT 97
[2016-11-13] MEDS: MIRTAZAPINE 15 MG TAB PEG SCH (21:29)
[2016-11-14] MEDS: MIDODRINE 5 MG TAB PO SCH ×3 (06:57→16:49)
[2016-11-14 08:00] VITALS: BP 118/73; PULSE 72; RESP 16; TEMP 98; O2SAT 96
[2016-11-14] MEDS: FREE WATER G-TUBE SCH (09:00)
[2016-11-14] MEDS: ALLOPURINOL 100 MG TAB PEG SCH (09:39)
[2016-11-14] MEDS: LANSOPRAZOLE SOLUTAB 30 MG TAB PEG SCH (09:39)
--- NOTE | 2016-11-14 10:19 | HHI.PR ---
Subjective Remarks Follow-up for dementia. No acute complaints. Objective Vitals Vital Signs Date Time Temp Pulse Resp B/P Pulse Ox O2 Delivery O2 Flow Rate FiO2 11/14/16 08:00 98.0 72 16 118/73 96 11/13/16 20:00 98.1 67 20 108/68 97 I/O 11/13/16 11/13/16 11/13/16 11/14/16 11/14/16 11/14/16 07:00 15:00 23:00 07:00 15:00 23:00 Intake Total 300 ml Output Total 700 ml 1251 ml 850 ml Balance -400 ml -1251 ml -850 ml Tube Irrigant 300 ml Output Urine Total 700 ml 1250 ml 850 ml Stool Total 1 ml # Bowel Movements 0 1 1 Result Diagram: 11/11/16 0611/11/16 0600 Objective Remarks GENERAL: Elderly male in no apparent distress. CARDIOVASCULAR: Regular rate and rhythm. RESPIRATORY: No accessory muscle use. CTAB. GASTROINTESTINAL: Normoactive bowel sounds. Abdomen soft, non-tender, nondistended. NEURO: Nods to questions but does not speak aloud. Procedures None Urinary Catheter: No Date of Insertion: Nov 08, 2016 Vascular Central Line Catheter: No A/P Assessment and Plan Dementia with inappropriate behavior, mood disorder improved Patient had inappropriate behavior which is resolved now. He has been very appropriate for a long time now. Patient has been hospitalized for similar events in 2015 Consulted psychiatry for further evaluation, who indicated that this is a frontal lobe dementia Risperdal 0.25 mg during the day, Risperdal 0.5 mg at night. Risperdal was discontinued per POA request. [facility] Psychiatry was reconsulted and is ok with discontinuation of Risperdal. Protein calorie malnutrition: Improving Consulted dietitian who indicated that patient may be converted to bolus feeding Jevity 1.5 w/ bolus 1.5 cans (360ml) @ 0800 and 2000 and 1 can (240ml) @ 1100, 1400 and 1700. Free Water Flush 100ml before and after each bolus feeding. Ensure Enlive tid and chocolate pudding tid. Patient desired to eat and speech therapy advised puree diet, thin liquids, but patient has not been eating. Poacher Operator suggested considering appetite stimulant. This was discussed with attending, but we do not believe this would be beneficial for patient and would add unnecessary risk to the patient. Will continue with tube feeds only. Hematuria: Resolved. -Patient is not on anticoagulation. -Hemoglobin normal. -Creatinine is normal. -UA 4/5 with innumerable RBCs, but urine sample not grossly bloody. Urinary tract infection, recurrent: Urine culture positive for Proteus mirabilis and GBS on 01/20. Patient completed course of antibiotics. Abdominal pelvis CT 03/06 shows decompressed bladder with circumferential bladder wall thickening and intraluminal air possibly indicating cystitis, but the patient had been afebrile with normal WBC count. Urine culture 05/31 with Serratia marcescens, Pseudomonas, and Enterococcus faecalis. Patient was started on antibiotics. Repeat urine culture on 06/04 only reveals contaminants. Urine culture 08/07 with Enterococcus faecalis and Pseudomonas Aeruginosa similar to previous culture on 05/31. Patient remains afebrile. CBC with normal white blood cell count. Continue to change Soto monthly. 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 Monitor and treat only if symptomatic. Mild obstructive uropathy: Resolved. Appreciate urology recommendations. Suprapubic catheter to be changed monthly; last changed 10/30/16. Abdominal pelvis CT 03/06/16 shows resolution of right sided hydronephrosis. Upper GI bleeding with recurrent rectal bleeding: Resolved. Hemoglobin stable. GI reevaluated patient on 05/04. Presumed hemorrhoids, s/p Anusol HC for total of 2 weeks. Continue PPI. Wound at suprapubic catheter site: Improved. Appears uninfected. Likely attributed to shearing from tubing. -S/p antibiotic ointment Seborrheic dermatitis: Improved. S/p Ketoconazole 2% shampoo and hydrocortisone lotion. S/p hydrocortisone 1% cream bid x 2 weeks. Chalazion: Nodule R upper eyelid. There is no evidence of preseptal cellulitis. -Warm compresses were applied but it was greater than 2 weeks without significant improvement. -Ophthalmology was consulted and evaluated patient on 03/26. S/p warm compresses and Tobradex 4 times a day OD x 2 weeks. Patient was intermittently compliant with eyedrops. -No worsening. Follow-up outpatient. Hypotension: Blood pressure labile. Continue Midodrine. Patient on max dose. Increase free water flushes as needed. Pre-renal azotemia: BUN elevated at 23 on 11/11/16. Continue free water flushes Monitor BMP periodically Stage I decubitus ulcer, sacral skin tear: Continue wound care. Frequent turning of patient. Candidal infection: buttocks affected with satellite lesions to the perineum. -S/p Nystatin and clotrimazole Weakness: Continue physical therapy Nursing staff to get patient up out of bed at least 3 times daily Palliative care evaluation According to palliative care notes family wishes aggressive management, they are expecting him to improve, go to a rehabilitation facility and then improve enough to go home. They are declining hospice. DVT prophylaxis: SCDs. Avoid chemical prophylaxis secondary to GI bleed. Discharge Planning 11/08/16: Son will still not assist with placement. human resources safety manager is trying to get DCF to assist with possible court guardianship. Madeline Ortez Nov 14, 2016 10:19 enough to go home. They are declining hospice. DVT prophylaxis: SCDs. Avoid chemical prophylaxis secondary to GI bleed. Discharge Planning 11/08/16: Son will still not assist with placement. human resources safety manager is trying to get DCF to assist with possible court guardianship. Madeline Ortez Nov 14, 2016 10:19
[2016-11-14 20:00] VITALS: BP 120/75; PULSE 76; RESP 20; TEMP 96.2; O2SAT 97
[2016-11-14] MEDS: MIRTAZAPINE 15 MG TAB PEG SCH (20:05)
[2016-11-15] MEDS: MIDODRINE 5 MG TAB PO SCH ×3 (06:17→17:03)
[2016-11-15 08:00] VITALS: BP 114/69; PULSE 63; RESP 18; TEMP 95.9; O2SAT 96
[2016-11-15] MEDS: ALLOPURINOL 100 MG TAB PEG SCH (08:40)
[2016-11-15] MEDS: LANSOPRAZOLE SOLUTAB 30 MG TAB PEG SCH (08:40)
[2016-11-15] MEDS: FREE WATER G-TUBE SCH (08:40)
--- NOTE | 2016-11-15 10:28 | HHI.PR ---
Subjective Remarks Follow-up for dementia. No acute complaints. Objective Vitals Vital Signs Date Time Temp Pulse Resp B/P Pulse Ox O2 Delivery O2 Flow Rate FiO2 11/15/16 08:00 95.9 63 18 114/69 96 11/14/16 20:00 96.2 76 20 120/75 97 I/O 11/14/16 11/14/16 11/14/16 11/15/16 11/15/16 11/15/16 07:00 15:00 23:00 07:00 15:00 23:00 Intake Total 2620 ml 250 ml Output Total 850 ml 850 ml 500 ml Balance -850 ml 1770 ml -250 ml Tube Feeding 1320 ml Tube Irrigant 500 ml 250 ml Other 800 ml Output Urine Total 850 ml 850 ml 500 ml # Bowel Movements 1 1 1 Result Diagram: 11/11/16 0600 11/11/16 0600 Objective Remarks GENERAL: Elderly male in no apparent distress. CARDIOVASCULAR: Regular rate and rhythm. RESPIRATORY: No accessory muscle use. CTAB. GASTROINTESTINAL: Normoactive bowel sounds. Abdomen soft, non-tender, nondistended. NEURO: Nods to questions but does not speak aloud. Procedures None Urinary Catheter: Yes Assessment to: Continue Soto insert reason: Obstruction/Retention Date of Insertion: Nov 08, 2016 Vascular Central Line Catheter: No A/P Assessment and Plan Dementia with inappropriate behavior, mood disorder improved Patient had inappropriate behavior which is resolved now. He has been very appropriate for a long time now. Patient has been hospitalized for similar events in 2015 Consulted psychiatry for further evaluation, who indicated that this is a frontal lobe dementia Risperdal 0.25 mg during the day, Risperdal 0.5 mg at night. Risperdal was discontinued per POA request. Continue [facility] Psychiatry was reconsulted and is ok with discontinuation of Risperdal. Protein calorie malnutrition: Improving Consulted dietitian who indicated that patient may be converted to bolus feeding Jevity 1.5 w/ bolus 1.5 cans (360ml) @ 0800 and 2000 and 1 can (240ml) @ 1100, 1400 and 1700. Free Water Flush 100ml before and after each bolus feeding. Ensure Enlive tid and chocolate pudding tid. Patient desired to eat and speech therapy advised puree diet, thin liquids, but patient has not been eating. Quality Assurance Qa Lab Technician suggested considering appetite stimulant. This was discussed with attending, but we do not believe this would be beneficial for patient and would add unnecessary risk to the patient. Will continue with tube feeds only. Hematuria: Resolved. -Patient is not on anticoagulation. -Hemoglobin normal. -Creatinine is normal. -UA 4/5 with innumerable RBCs, but urine sample not grossly bloody. Urinary tract infection, recurrent: Urine culture positive for Proteus mirabilis and GBS on 01/20. Patient completed course of antibiotics. Abdominal pelvis CT 03/06 shows decompressed bladder with circumferential bladder wall thickening and intraluminal air possibly indicating cystitis, but the patient had been afebrile with normal WBC count. Urine culture 05/31 with Serratia marcescens, Pseudomonas, and Enterococcus faecalis. Patient was started on antibiotics. Repeat urine culture on 06/04 only reveals contaminants. Urine culture /5 with Enterococcus faecalis and Pseudomonas Aeruginosa similar to previous culture on 05/31. Patient remains afebrile. CBC with normal white blood cell count. Continue to change Soto monthly. 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 Monitor and treat only if symptomatic. Mild obstructive uropathy: Resolved. Appreciate urology recommendations. Suprapubic catheter to be changed monthly; last changed 10/30/16. Abdominal pelvis CT 03/06/16 shows resolution of right sided hydronephrosis. Upper GI bleeding with recurrent rectal bleeding: Resolved. Hemoglobin stable. GI reevaluated patient on 05/04. Presumed hemorrhoids, s/p Anusol HC for total of 2 weeks. Continue PPI. Wound at suprapubic catheter site: Improved. Appears uninfected. Likely attributed to shearing from tubing. -S/p antibiotic ointment Seborrheic dermatitis: Improved. S/p Ketoconazole 2% shampoo and hydrocortisone lotion. S/p hydrocortisone 1% cream bid x 2 weeks. Chalazion: Nodule R upper eyelid. There is no evidence of preseptal cellulitis. -Warm compresses were applied but it was greater than 2 weeks without significant improvement. -Ophthalmology was consulted and evaluated patient on 03/26. S/p warm compresses and Tobradex 4 times a day OD x 2 weeks. Patient was intermittently compliant with eyedrops. -No worsening. Follow-up outpatient. Hypotension: Blood pressure labile. Continue Midodrine. Patient on max dose. Increase free water flushes as needed. Pre-renal azotemia: BUN elevated at 23 on 11/11/16. Continue free water flushes Monitor BMP periodically Stage I decubitus ulcer, sacral skin tear: Continue wound care. Frequent turning of patient. Candidal infection: buttocks affected with satellite lesions to the perineum. -S/p Nystatin and clotrimazole Weakness: Continue physical therapy Nursing staff to get patient up out of bed at least 3 times daily Palliative care evaluation According to palliative care notes family wishes aggressive management, they are expecting him to improve, go to a rehabilitation facility and then improve enough to go home. They are declining hospice. DVT prophylaxis: SCDs. Avoid chemical prophylaxis secondary to GI bleed. Discharge Planning 11/08/16: Son will still not assist with placement. business banking manager is trying to get DCF to assist with possible court guardianship. 11/15/16: requested [facility] to evaluate for termination clerk placement. Madeline Ortez Nov 15, 2016 10:28 11/08/16: Son will still not assist with placement. business banking manager is trying to get DCF to assist with possible court guardianship. Madeline Ortez Nov 15, 2016 10:28
[2016-11-15 20:53] VITALS: BP 100/65; PULSE 70; RESP 16; TEMP 97.5; O2SAT 95
[2016-11-15] MEDS: MIRTAZAPINE 15 MG TAB PEG SCH (21:54)
[2016-11-16] MEDS: MIDODRINE 5 MG TAB PO SCH ×3 (06:12→17:05)
[2016-11-16 08:00] VITALS: BP 110/73; PULSE 80; RESP 16; TEMP 98; O2SAT 94
[2016-11-16] MEDS: FREE WATER G-TUBE SCH (08:13)
[2016-11-16] MEDS: ALLOPURINOL 100 MG TAB PEG SCH (08:13)
[2016-11-16] MEDS: LANSOPRAZOLE SOLUTAB 30 MG TAB PEG SCH (08:13)
--- NOTE | 2016-11-16 11:16 | HHI.PR ---
Subjective Remarks Follow-up for dementia. No acute complaints. Objective Vitals Vital Signs Date Time Temp Pulse Resp B/P Pulse Ox O2 Delivery O2 Flow Rate FiO2 11/16/16 08:00 98.0 80 16 110/73 94 11/15/16 20:53 97.5 70 16 100/65 95 I/O 11/15/16 11/15/16 11/15/16 11/16/16 11/16/16 11/16/16 07:00 15:00 23:00 07:00 15:00 23:00 Intake Total 250 ml 0 ml 2080 ml Output Total 500 ml 350 ml 450 ml 125 ml Balance -250 ml -350 ml 1630 ml -125 ml Intake Oral 0 ml Tube Feeding 1080 ml Tube Irrigant 250 ml 200 ml Other 800 ml Output Urine Total 500 ml 350 ml 450 ml 125 ml # Bowel Movements 1 1 0 Objective Remarks GENERAL: Elderly male in no apparent distress. CARDIOVASCULAR: Regular rate and rhythm. RESPIRATORY: No accessory muscle use. CTAB. GASTROINTESTINAL: Refuses abdominal exam. NEURO: Eyes closed, but nods to questions but does not speak aloud. Procedures None Urinary Catheter: No Date of Insertion: Nov 08, 2016 Vascular Central Line Catheter: No A/P Assessment and Plan Dementia with inappropriate behavior, mood disorder improved Patient had inappropriate behavior which is resolved now. He has been very appropriate for a long time now. Patient has been hospitalized for similar events in 2015 Consulted psychiatry for further evaluation, who indicated that this is a frontal lobe dementia Risperdal 0.25 mg during the day, Risperdal 0.5 mg at night. Risperdal was discontinued per POA request. [facility] Psychiatry was reconsulted and is ok with discontinuation of Risperdal. Protein calorie malnutrition: Improving Consulted dietitian who indicated that patient may be converted to bolus feeding Jevity 1.5 w/ bolus 1.5 cans (360ml) @ 0800 and 2000 and 1 can (240ml) @ 1100, 1400 and 1700. Free Water Flush 100ml before and after each bolus feeding. Ensure Enlive tid and chocolate pudding tid. Patient desired to eat and speech therapy advised puree diet, thin liquids, but patient has not been eating. Vehicle Inspector suggested considering appetite stimulant. This was discussed with attending, but we do not believe this would be beneficial for patient and would add unnecessary risk to the patient. Will continue with tube feeds only. Hematuria: Resolved. -Patient is not on anticoagulation. -Hemoglobin normal. -Creatinine is normal. -UA 4/5 with innumerable RBCs, but urine sample not grossly bloody. Urinary tract infection, recurrent: Urine culture positive for Proteus mirabilis and GBS on 01/20. Patient completed course of antibiotics. Abdominal pelvis CT 03/06 shows decompressed bladder with circumferential bladder wall thickening and intraluminal air possibly indicating cystitis, but the patient had been afebrile with normal WBC count. Urine culture 05/31 with Serratia marcescens, Pseudomonas, and Enterococcus faecalis. Patient was started on antibiotics. Repeat urine culture on 06/04 only reveals contaminants. Urine culture /5 with Enterococcus faecalis and Pseudomonas Aeruginosa similar to previous culture on 05/31. Patient remains afebrile. CBC with normal white blood cell count. Continue to change Soto monthly. 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 Monitor and treat only if symptomatic. Mild obstructive uropathy: Resolved. Appreciate urology recommendations. Suprapubic catheter to be changed monthly; last changed 10/30/16. Abdominal pelvis CT 03/06/16 shows resolution of right sided hydronephrosis. Upper GI bleeding with recurrent rectal bleeding: Resolved. Hemoglobin stable. GI reevaluated patient on 05/04. Presumed hemorrhoids, s/p Anusol HC for total of 2 weeks. Continue PPI. Wound at suprapubic catheter site: Improved. Appears uninfected. Likely attributed to shearing from tubing. -S/p antibiotic ointment Seborrheic dermatitis: Improved. S/p Ketoconazole 2% shampoo and hydrocortisone lotion. S/p hydrocortisone 1% cream bid x 2 weeks. Chalazion: Nodule R upper eyelid. No evidence of preseptal cellulitis. -Warm compresses were applied but it was greater than 2 weeks without significant improvement. -Ophthalmology was consulted and evaluated patient on 03/26. S/p warm compresses and Tobradex 4 times a day OD x 2 weeks. Patient was intermittently compliant with eyedrops. -No worsening. Follow-up outpatient. Hypotension: Blood pressure labile. Continue Midodrine. Patient on max dose. Increase free water flushes as needed. Pre-renal azotemia: BUN elevated at 23 on 11/11/16. Continue free water flushes Monitor BMP periodically Stage I decubitus ulcer, sacral skin tear: Continue wound care. Frequent turning of patient. Candidal infection: buttocks affected with satellite lesions to the perineum. -S/p Nystatin and clotrimazole Weakness: Continue physical therapy Nursing staff to get patient up out of bed at least 3 times daily Palliative care evaluation According to palliative care notes family wishes aggressive management, they are expecting him to improve, go to a rehabilitation facility and then improve enough to go home. They are declining hospice. DVT prophylaxis: SCDs. Avoid chemical prophylaxis secondary to GI bleed. Discharge Planning 11/08/16: Son will still not assist with placement. mine safety manager is trying to get DCF to assist with possible court guardianship. 11/15/16: DORIS requested [facility] to evaluate for assisted placement. Madeline Ortez Nov 16, 2016 11:[address] assist with possible court guardianship. 11/15/16: DORIS requested [facility] to evaluate for assisted placement. Madeline Ortez Nov 16, 2016 11:16
[2016-11-16 20:00] VITALS: BP 116/73; PULSE 67; RESP 17; TEMP 98; O2SAT 95
[2016-11-16] MEDS: MIRTAZAPINE 15 MG TAB PEG SCH (21:00)
[2016-11-17] MEDS: MIDODRINE 5 MG TAB PO SCH ×3 (05:56→16:36)
[2016-11-17 08:00] VITALS: BP 114/70; PULSE 80; RESP 18; TEMP 98; O2SAT 95
[2016-11-17] MEDS: FREE WATER G-TUBE SCH (08:04)
[2016-11-17] MEDS: ALLOPURINOL 100 MG TAB PEG SCH (08:04)
[2016-11-17] MEDS: LANSOPRAZOLE SOLUTAB 30 MG TAB PEG SCH (08:04)
--- NOTE | 2016-11-17 10:05 | HHI.PR ---
Subjective Remarks Follow-up for dementia. No acute complaints. Objective Vitals Vital Signs Date Time Temp Pulse Resp B/P Pulse Ox O2 Delivery O2 Flow Rate FiO2 11/17/16 08:00 98.0 80 18 114/70 95 11/16/16 20:00 98.0 67 17 116/73 95 I/O 11/16/16 11/16/16 11/16/16 11/17/16 11/17/16 11/17/16 07:00 15:00 23:00 07:00 15:00 23:00 Intake Total 2080 ml 0 ml Output Total 125 ml 1000 ml 300 ml Balance -125 ml 1080 ml -300 ml Intake Oral 0 ml 0 ml Tube Feeding 1080 ml Tube Irrigant 200 ml Other 800 ml Output Urine Total 125 ml 1000 ml 300 ml # Bowel Movements 0 2 1 Objective Remarks GENERAL: Elderly male in no apparent distress. SKIN: Splotchy redness over the entire face, increased flaking skin. CARDIOVASCULAR: Regular rate and rhythm. RESPIRATORY: No accessory muscle use. CTAB. GASTROINTESTINAL: Abdomen soft, nontender, nondistended. NEURO: Eyes closed, but nods to questions. Does not speak aloud. Procedures None Urinary Catheter: No Date of Insertion: Nov 08, 2016 Vascular Central Line Catheter: No A/P Assessment and Plan Dementia with inappropriate behavior, mood disorder improved Patient had inappropriate behavior which is resolved now. He has been very appropriate for a long time now. Patient has been hospitalized for similar events in 2015 Consulted psychiatry for further evaluation, who indicated that this is a frontal lobe dementia Risperdal 0.25 mg during the day, Risperdal 0.5 mg at night. Risperdal was discontinued per POA request. [facility] Psychiatry was reconsulted and is ok with discontinuation of Risperdal. Protein calorie malnutrition: Improving Consulted dietitian who indicated that patient may be converted to bolus feeding Jevity 1.5 w/ bolus 1.5 cans (360ml) @ 0800 and 2000 and 1 can (240ml) @ 1100, 1400 and 1700. Free Water Flush 100ml before and after each bolus feeding. Ensure Enlive tid and chocolate pudding tid. Patient desired to eat and speech therapy advised puree diet, thin liquids, but patient has not been eating. Vice Provost suggested considering appetite stimulant. This was discussed with attending, but we do not believe this would be beneficial for patient and would add unnecessary risk to the patient. Will continue with tube feeds only. Hematuria: Resolved. -Patient is not on anticoagulation. -Hemoglobin normal. -Creatinine is normal. -UA 4/5 with innumerable RBCs, but urine sample not grossly bloody. Urinary tract infection, recurrent: Urine culture positive for Proteus mirabilis and GBS on 01/20. Patient completed course of antibiotics. Abdominal pelvis CT 03/06 shows decompressed bladder with circumferential bladder wall thickening and intraluminal air possibly indicating cystitis, but the patient had been afebrile with normal WBC count. Urine culture 05/31 with Serratia marcescens, Pseudomonas, and Enterococcus faecalis. Patient was started on antibiotics. Repeat urine culture on 06/04 only reveals contaminants. Urine culture 08/07 with Enterococcus faecalis and Pseudomonas Aeruginosa similar to previous culture on 05/31. Patient remains afebrile. CBC with normal white blood cell count. Continue to change Soto monthly. 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 Monitor and treat only if symptomatic. Mild obstructive uropathy: Resolved. Appreciate urology recommendations. Suprapubic catheter to be changed monthly; last changed 10/30/16. Abdominal pelvis CT 03/06/16 shows resolution of right sided hydronephrosis. Upper GI bleeding with recurrent rectal bleeding: Resolved. Hemoglobin stable. GI reevaluated patient on 05/04. Presumed hemorrhoids, s/p Anusol HC for total of 2 weeks. Continue PPI. Wound at suprapubic catheter site: Improved. Appears uninfected. Likely attributed to shearing from tubing. -S/p antibiotic ointment Seborrheic dermatitis: Worse. Increased redness and flaking to the face. S/p Ketoconazole 2% shampoo, hydrocortisone lotion, and hydrocortisone cream. 11/17: Restart hydrocortisone cream 1% bid x 2 weeks as patient had good results with this last time. Chalazion: Nodule R upper eyelid. No evidence of preseptal cellulitis. -Warm compresses were applied but it was greater than 2 weeks without significant improvement. -Ophthalmology was consulted and evaluated patient on 03/26. S/p warm compresses and Tobradex 4 times a day OD x 2 weeks. Patient was intermittently compliant with eyedrops. -No worsening. Follow-up outpatient. Hypotension: Blood pressure labile. Continue Midodrine. Patient on max dose. Increase free water flushes as needed. Pre-renal azotemia: BUN elevated at 23 on 11/11/16. Continue free water flushes Monitor BMP periodically Stage I decubitus ulcer, sacral skin tear: Continue wound care. Frequent turning of patient. Candidal infection: buttocks affected with satellite lesions to the perineum. -S/p Nystatin and clotrimazole Weakness: Continue physical therapy Nursing staff to get patient up out of bed at least 3 times daily Palliative care evaluation According to palliative care notes family wishes aggressive management, they are expecting him to improve, go to a rehabilitation facility and then improve enough to go home. They are declining hospice. DVT prophylaxis: SCDs. Avoid chemical prophylaxis secondary to GI bleed. Discharge Planning 11/08/16: Son will still not assist with placement. wholesale manager is trying to get DCF to assist with possible court guardianship. 11/15/16: CM requested [facility] to evaluate for continuous churn buttermaker placement. Madeline Ortez Nov 17, 2016 10:05 Madeline Ortez Nov 17, 2016 10:05
[2016-11-17 20:00] VITALS: BP 88/61; PULSE 65; RESP 16; TEMP 98.5; O2SAT 98
[2016-11-17] MEDS: MIRTAZAPINE 15 MG TAB PEG SCH (21:11)
[2016-11-17] MEDS: HYDROCORTISONE 1% CREAM 30 GM TOPICAL SCH (21:16)
[2016-11-18] MEDS: MIDODRINE 5 MG TAB PO SCH ×3 (06:22→16:39)
[2016-11-18 08:00] VITALS: BP 97/64; PULSE 79; RESP 19; TEMP 97.1; O2SAT 94
[2016-11-18] MEDS: LANSOPRAZOLE SOLUTAB 30 MG TAB PEG SCH (08:12)
[2016-11-18] MEDS: FREE WATER G-TUBE SCH (08:12)
[2016-11-18] MEDS: HYDROCORTISONE 1% CREAM 30 GM TOPICAL SCH ×2 (08:13→20:37)
[2016-11-18] MEDS: ALLOPURINOL 100 MG TAB PEG SCH (08:13)
--- NOTE | 2016-11-18 11:40 | HHI.PR ---
Subjective Remarks Follow up for dementia. No acute complaints. He mouths the word "ok" but does not speak aloud when I ask how he is doing. Objective Vitals Vital Signs Date Time Temp Pulse Resp B/P Pulse Ox O2 Delivery O2 Flow Rate FiO2 11/18/16 08:00 97.1 79 19 97/64 94 11/17/16 20:00 98.5 65 16 88/61 98 I/O 11/17/16 11/17/16 11/17/16 11/18/16 11/18/16 11/18/16 06:59 14:59 22:59 06:59 14:59 22:59 Intake Total 0 ml 440 ml 200 ml Output Total 300 ml 2100 ml 500 ml Balance -300 ml -1660 ml -300 ml Intake Oral 0 ml Tube Feeding 240 ml Tube Irrigant 200 ml 200 ml Output Urine Total 300 ml 2100 ml 500 ml # Bowel Movements 1 4 Objective Remarks GENERAL: Elderly male in no apparent distress. SKIN: Splotchy redness over the entire face. Less flaking skin than yesterday. CARDIOVASCULAR: Regular rate and rhythm. RESPIRATORY: No accessory muscle use. CTAB. GASTROINTESTINAL: Normoactive bowel sounds. Abdomen soft, nontender, nondistended. NEURO: Does not speak aloud. Nods to answer questions. Procedures None Urinary Catheter: No Date of Insertion: Nov 08, 2016 Vascular Central Line Catheter: No A/P Assessment and Plan Dementia with inappropriate behavior, mood disorder improved Patient had inappropriate behavior which is resolved now. He has been very appropriate for a long time now. Patient has been hospitalized for similar events in 2015 Consulted psychiatry for further evaluation, who indicated that this is a frontal lobe dementia Risperdal 0.25 mg during the day, Risperdal 0.5 mg at night. Risperdal was discontinued per POA request. Continue [facility] Psychiatry was reconsulted and is ok with discontinuation of Risperdal. Protein calorie malnutrition: Improving Consulted dietitian who indicated that patient may be converted to bolus feeding Jevity 1.5 w/ bolus 1.5 cans (360ml) @ 0800 and 2000 and 1 can (240ml) @ 1100, 1400 and 1700. Free Water Flush 100ml before and after each bolus feeding. Ensure Enlive tid and chocolate pudding tid. Patient desired to eat and speech therapy advised puree diet, thin liquids, but patient has not been eating. [employer] suggested considering appetite stimulant. This was discussed with attending, but we do not believe this would be beneficial for patient and would add unnecessary risk to the patient. Will continue with tube feeds only. Hematuria: Resolved. -Patient is not on anticoagulation. -Hemoglobin normal. -Creatinine is normal. -UA 4/5 with innumerable RBCs, but urine sample not grossly bloody. Urinary tract infection, recurrent: Urine culture positive for Proteus mirabilis and GBS on 01/20. Patient completed course of antibiotics. Abdominal pelvis CT 03/06 shows decompressed bladder with circumferential bladder wall thickening and intraluminal air possibly indicating cystitis, but the patient had been afebrile with normal WBC count. Urine culture 05/31 with Serratia marcescens, Pseudomonas, and Enterococcus faecalis. Patient was started on antibiotics. Repeat urine culture on 06/04 only reveals contaminants. Urine culture /5 with Enterococcus faecalis and Pseudomonas Aeruginosa similar to previous culture on 05/31. Patient remains afebrile. CBC with normal white blood cell count. Continue to change Soto monthly. 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 Monitor and treat only if symptomatic. Mild obstructive uropathy: Resolved. Appreciate urology recommendations. Suprapubic catheter to be changed monthly; last changed 10/30/16. Abdominal pelvis CT 03/06/16 shows resolution of right sided hydronephrosis. Upper GI bleeding with recurrent rectal bleeding: Resolved. Hemoglobin stable. GI reevaluated patient on 05/04. Presumed hemorrhoids, s/p Anusol HC for total of 2 weeks. Continue PPI. Wound at suprapubic catheter site: Improved. Appears uninfected. Likely attributed to shearing from tubing. -S/p antibiotic ointment Seborrheic dermatitis: Improving. S/p Ketoconazole 2% shampoo, hydrocortisone lotion, and hydrocortisone cream. 11/17: Increased redness and flaking to the face. Restart hydrocortisone cream 1 % bid x 2 weeks as patient had good results with this last time. Chalazion: Nodule R upper eyelid. No evidence of preseptal cellulitis. -Warm compresses were applied but it was greater than 2 weeks without significant improvement. -Ophthalmology was consulted and evaluated patient on 03/26. S/p warm compresses and Tobradex 4 times a day OD x 2 weeks. Patient was intermittently compliant with eyedrops. -No worsening. Follow-up outpatient. Hypotension: chronic Blood pressure labile. Continue Midodrine. Patient on max dose. Increase free water flushes as needed. Pre-renal azotemia: BUN elevated at 23 on 11/11/16. Continue free water flushes Monitor BMP periodically Stage I decubitus ulcer, sacral skin tear: Continue wound care. Frequent turning of patient. Candidal infection: buttocks affected with satellite lesions to the perineum. -S/p Nystatin and clotrimazole Weakness: Continue physical therapy Nursing staff to get patient up out of bed at least 3 times daily Palliative care evaluation According to palliative care notes family wishes aggressive management, they are expecting him to improve, go to a rehabilitation facility and then improve enough to go home. They are declining hospice. DVT prophylaxis: SCDs. Avoid chemical prophylaxis secondary to GI bleed. Discharge Planning 11/08/16: Son will still not assist with placement. transitions manager is trying to get DCF to assist with possible court guardianship. 11/15/16: requested [facility] to evaluate for detention placement. Madeline Ortez Nov 18, 2016 11:40 Madeline Ortez Nov 18, 2016 11:40
[2016-11-18] MEDS: NEOMYCIN/POLYMYXIN/BACITRACIN OINT 15 GM TUBE TOPICAL SCH ×2 (16:39→20:38)
[2016-11-18 20:00] VITALS: BP 107/62; PULSE 76; RESP 18; TEMP 97; O2SAT 94
[2016-11-18] MEDS: MIRTAZAPINE 15 MG TAB PEG SCH (20:32)
[2016-11-19] MEDS: MIDODRINE 5 MG TAB PO SCH ×3 (05:58→17:23)
[2016-11-19 08:00] VITALS: BP 123/71; PULSE 68; RESP 18; TEMP 96.4; O2SAT 96
[2016-11-19] MEDS: FREE WATER G-TUBE SCH (08:28)
[2016-11-19] MEDS: LANSOPRAZOLE SOLUTAB 30 MG TAB PEG SCH (08:28)
[2016-11-19] MEDS: ALLOPURINOL 100 MG TAB PEG SCH (08:28)
[2016-11-19] MEDS: HYDROCORTISONE 1% CREAM 30 GM TOPICAL SCH ×2 (08:29→21:59)
[2016-11-19] MEDS: NEOMYCIN/POLYMYXIN/BACITRACIN OINT 15 GM TUBE TOPICAL SCH ×2 (08:29→21:59)
--- NOTE | 2016-11-19 11:44 | HHI.PR ---
Subjective Remarks Patient seen and examined today for follow-up on weakness and dementia. Patient is lying in bed comfortably. Patient denies any new complaints. Objective Vitals Vital Signs Date Time Temp Pulse Resp B/P Pulse Ox O2 Delivery O2 Flow Rate FiO2 11/19/16 08:00 96.4 68 18 123/71 96 11/18/16 20:00 97.0 76 18 107/62 94 I/O 11/18/16 11/18/16 11/18/16 11/19/16 11/19/16 11/19/16 06:59 14:59 22:59 06:59 14:59 22:59 Intake Total 200 ml 1900 ml 300 ml Output Total 500 ml 500 ml 1000 ml Balance -300 ml -500 ml 1900 ml -700 ml Intake Oral 0 ml Tube Feeding 1200 ml 250 ml Tube Irrigant 200 ml Other 700 ml 50 ml Output Urine Total 500 ml 500 ml 1000 ml # Bowel Movements 4 4 Objective Remarks GENERAL: Well-developed, well-nourished, in no acute distress. HEENT: Head is normocephalic without any lesions or masses noted. Facial features are symmetric. Eyes: Extraocular muscles are intact. Conjunctivae were clear. NECK: Trachea midline no deviation. CARDIAC: Regular rhythm, regular rate. S1/S2 are heard. No murmurs gallops or rubs. LUNGS: Clear to auscultation bilaterally. No wheeze, rhonchi or rales. No use of accessory muscles on inspiration or expiration. ABDOMEN: Soft, nontender. Nondistended. Bowel sounds heard in all 4 quadrants. No organomegaly or masses. Negative rebound, negative guarding, suprapubic catheter in place, PEG tube noted EXTREMITIES: No edema, pulses are equal bilaterally. No cyanosis or clubbing NEUROLOGY: Mood and affect appear appropriate. Cranial nerves II through XII grossly intact. Moving all extremities Procedures None Urinary Catheter: Yes (suprapubic catheter) Assessment to: Continue Soto insert reason: Obstruction/Retention Date of Insertion: Nov 08, 2016 A/P Assessment and Plan Weakness: Continue physical therapy Nursing staff to get patient up out of bed at least 3 times daily Dementia with inappropriate behavior, mood disorder improved Patient has been hospitalized for similar events in 2015 Consulted psychiatry for further evaluation, who indicated that this is a frontal lobe dementia Risperdal discontinued at family's request Continue Remeron Parkinson's disease: Patient has dementia and resting tremor. Chronic, stable. GI bleed with presenting of Upper GI bleed, patient with intermittent rectal bleeding: Resolved Hemoglobin continues to remain stable GI was following and reevaluated on 05/04/16 Presumed hemorrhoids, status post Anusol HC for 2 weeks Continue PPI. Protein calorie malnutrition: Improving Consulted dietitian who indicated that patient may be converted to bolus feeding Jevity 1.5, 1.5, 360ml(1.5 cans)@ 0800, 1100, 1400 and 240ml(1-can)@ 1700 and 2000 Prealbumin level 24 Ensure Enlive 3 times a day since pudding 3 times a day Excoriation noted around PEG tube, resolved Hypotension with episodes of hypertension: Stable Continue monitor blood pressure Continue Midodrine. Mild obstructive uropathy: Resolved. Appreciate urology recommendations. Suprapubic catheter in place, improved after replacement of Soto Abdominal pelvis CT 03/06/16 shows resolution of right sided hydronephrosis. 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 Stage I decubitus ulcer, sacral skin tear: Resolved Continue wound care. Seborrhea dermatitis, recurrent Hydrocortisone cream for 2 weeks, restarted Counseled nursing staff on proper hygiene to avoid recurrence Palliative care evaluation According to palliative care notes. Family wishes aggressive management, they are expecting him to improve, go to a rehabilitation facility and then improve enough to go home. They are deferring hospice. DVT prophylaxis: SCDs. Avoid chemical prophylaxis secondary to GI bleed. Discharge Planning Discharge planning per case management. Case management still trying to reach out to son and DCF to help with nursing facilities for acceptance. Jaguar Walker Nov 19, 2016 11:44
[2016-11-19 20:00] VITALS: BP 107/69; PULSE 79; RESP 20; TEMP 98.5; O2SAT 96
[2016-11-19] MEDS: MIRTAZAPINE 15 MG TAB PEG SCH (21:59)
[2016-11-20] MEDS: MIDODRINE 5 MG TAB PO SCH ×3 (05:45→17:47)
[2016-11-20 08:00] VITALS: BP 95/68; PULSE 63; RESP 17; TEMP 97.6; O2SAT 97
[2016-11-20] MEDS: FREE WATER G-TUBE SCH (08:25)
[2016-11-20] MEDS: ALLOPURINOL 100 MG TAB PEG SCH (08:25)
[2016-11-20] MEDS: LANSOPRAZOLE SOLUTAB 30 MG TAB PEG SCH (08:25)
[2016-11-20] MEDS: NEOMYCIN/POLYMYXIN/BACITRACIN OINT 15 GM TUBE TOPICAL SCH ×2 (08:27→21:37)
[2016-11-20] MEDS: HYDROCORTISONE 1% CREAM 30 GM TOPICAL SCH ×2 (08:28→21:36)
--- NOTE | 2016-11-20 09:36 | HHI.PR ---
Subjective Remarks Patient seen and examined today for follow-up on dementia, weakness. Nursing staff indicates that his PEG tube became dislodged between 9 PM last night and 5 AM this morning. They were unsuccessful in putting it back in. Objective Vitals Vital Signs Date Time Temp Pulse Resp B/P Pulse Ox O2 Delivery O2 Flow Rate FiO2 11/20/16 08:00 97.6 63 17 95/68 97 11/19/16 20:00 98.5 79 20 107/69 96 I/O 11/19/16 11/19/16 11/19/16 11/20/16 11/20/16 11/20/16 07:00 15:00 23:00 07:00 15:00 23:00 Intake Total 300 ml 300 ml 100 ml Output Total 1000 ml 600 ml 275 ml 700 ml Balance -700 ml -600 ml 25 ml -700 ml 100 ml Intake Oral 0 ml 100 ml Tube Feeding 250 ml 240 ml Other 50 ml 60 ml Output Urine Total 1000 ml 600 ml 275 ml 700 ml # Bowel Movements 4 1 1 Objective Remarks GENERAL: Well-developed, well-nourished, in no acute distress. HEENT: Head is normocephalic without any lesions or masses noted. Facial features are symmetric. Eyes: Extraocular muscles are intact. Conjunctivae were clear. NECK: Trachea midline no deviation. CARDIAC: Regular rhythm, regular rate. S1/S2 are heard. No murmurs gallops or rubs. LUNGS: Clear to auscultation bilaterally. No wheeze, rhonchi or rales. No use of accessory muscles on inspiration or expiration. ABDOMEN: Soft, nontender. Nondistended. Bowel sounds heard in all 4 quadrants. No organomegaly or masses. Negative rebound, negative guarding, suprapubic catheter in place, PEG tube no longer in place EXTREMITIES: No edema, pulses are equal bilaterally. No cyanosis or clubbing NEUROLOGY: Mood and affect appear appropriate. Cranial nerves II through XII grossly intact. Moving all extremities Procedures None Urinary Catheter: Yes (suprapubic catheter) Assessment to: Continue Soto insert reason: Obstruction/Retention Date of Insertion: Nov 08, 2016 Vascular Central Line Catheter: No A/P Assessment and Plan Weakness: Continue physical therapy Nursing staff to get patient up out of bed at least 3 times daily Dementia with inappropriate behavior, mood disorder improved Patient has been hospitalized for similar events in 2014 Consulted psychiatry for further evaluation, who indicated that this is a frontal lobe dementia Risperdal discontinued at family's request Continue Remeron Parkinson's disease: Patient has dementia and resting tremor. Chronic, stable. GI bleed with presenting of Upper GI bleed, patient with intermittent rectal bleeding: Resolved Hemoglobin continues to remain stable GI was following and reevaluated on 05/04/16 Presumed hemorrhoids, status post Anusol HC for 2 weeks Continue PPI. Protein calorie malnutrition: Improving Consulted dietitian who indicated that patient may be converted to bolus feeding Jevity 1.5, 1.5, 360ml(1.5 cans)@ 0800, 1100, 1400 and 240ml(1-can)@ 1700 and 2000 Prealbumin level 24 Ensure Enlive 3 times a day since pudding 3 times a day PEG tube came out, intervention radiology consulted for replacement Hypotension with episodes of hypertension: Stable Continue monitor blood pressure Continue Midodrine. Mild obstructive uropathy: Resolved. Appreciate urology recommendations. Suprapubic catheter in place, improved after replacement of Soto Abdominal pelvis CT 03/06/16 shows resolution of right sided hydronephrosis. 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 Stage I decubitus ulcer, sacral skin tear: Resolved Continue wound care. Seborrhea dermatitis, recurrent Hydrocortisone cream for 2 weeks, restarted Counseled nursing staff on proper hygiene to avoid recurrence Palliative care evaluation According to palliative care notes. Family wishes aggressive management, they are expecting him to improve, go to a rehabilitation facility and then improve enough to go home. They are deferring hospice. DVT prophylaxis: SCDs. Avoid chemical prophylaxis secondary to GI bleed. Discharge Planning Discharge planning per case management. Case management still trying to reach out to son and DCF to help with nursing facilities for acceptance. Jaguar Walker Nov 20, 2016 09:36
--- NOTE | 2016-11-20 14:42 | PD.RAD ---
Post Procedure Progress Note Pre Procedure Diagnosis: (1) Encounter for feeding tube placement Post Procedure Diagnosis: (1) Encounter for feeding tube placement Procedure Date: Nov 20, 2016 Supervising Radiologist: Nitish Felton JR Proceduralist/Assist: RT Priti(R) Anesthesia: Local Plan of Activity Patient to Unit: Nursing Unit Patient Condition: Good See PACS Report for procedural detail/treatment Feeding Tube Gastrostomy Replacement Lao: 18 Findings: Original G tube has fallen out. Lidocaine jelly placed in dermatotomy. Replaced G tube with 18 F G tube. In good position. OK to use. Jr. Jose Francisco,Nitish Soto MD Nov 20, 2016 14:42
--- NOTE | 2016-11-20 15:34 | RADRPT ---
EXAM DATE/TIME: 11/20/2016 14:06 [place] COMPARISON: CT ABDOMEN & PELVIS W CONTRAST, March 06, 2016, 22:27. INDICATIONS : Patient with history of dysphagia in need of G tube placement due to dislodgement. MEDICAL HISTORY : Dementia, Parkinson's disease, GI Bleed, Esophagitis, GERD, Hypothyroidism, Gout, HTN, Encephalopathy , Enlarged prostate, Kidney stones SURGICAL HISTORY : PEG tube placement, Suprapubic catheter ENCOUNTER: Initial ACUITY: 1 day PAIN SCORE: 0/10 FLUORO TIME: 0.4 minutes IMAGE SERIES: 1 CONTRAST: 5cc Omnipaque 300 DEVICE(S): 1.) 18 Fr gastrostomy tube PROCEDURE : 1. Fluoroscopically guided gastrostomy tube placement. 2. Conscious sedation with continuous EKG and oximetry monitoring. The risks, benefits and alternatives to the procedure were explained and verbal and written consent w as obtained. The site was prepped in sterile fashion. Full sterile technique was used, including ca p, mask, sterile gloves and gown and a large sterile sheet. Hand hygiene and 2% chlorhexidine and/or betadine/alcohol prep was utilized per protocol for cutaneous antisepsis. The skin and subcutaneous tissues were infiltrated with local anesthetic solution. Fluoroscopy was used to zachary the position of the liver.. The stomach was insufflated with room air. Three percutaneous fasteners were placed to secure the anterior gastric wall. A small incision was made between the fasteners. The stomach was accessed with an 18 gauge needle. A n 0.035 wire was advanced into the small bowel. The tract was dilated. The gastrostomy tube was int roduced through a peel-away sheath. The position was confirmed with an injection of contrast. Conscious sedation was performed with the prescribed dosages and duration as above in the presence of an independent trained radiology nurse to assist in the monitoring of the patient. EKG and oximetry remained stable throughout the procedure. The patient tolerated the procedure well and there were n o complications. The patient was sent to post anesthesia recovery in stable condition. CONCLUSION: Uncomplicated gastrostomy tube placement as above. Cholelithiasis. Nitish Felton Jr., MD on November 20, 2016 at 15:32 Board Certified Radiologist. This report was verified electronically.
[2016-11-20 20:00] VITALS: BP 92/66; PULSE 64; RESP 20; TEMP 96.5; O2SAT 95
[2016-11-20] MEDS: MIRTAZAPINE 15 MG TAB PEG SCH (21:36)
[2016-11-20] MEDS: SODIUM CHLORIDE 0.9% FLUSH 10 ML FLUSH IV FLUSH SCH (21:36)
[2016-11-21] MEDS: MIDODRINE 5 MG TAB PO SCH ×3 (06:30→17:20)
[2016-11-21 08:00] VITALS: BP 118/72; PULSE 80; RESP 18; TEMP 98.2; O2SAT 96
[2016-11-21] MEDS: ALLOPURINOL 100 MG TAB PEG SCH (08:14)
[2016-11-21] MEDS: FREE WATER G-TUBE SCH (08:14)
[2016-11-21] MEDS: LANSOPRAZOLE SOLUTAB 30 MG TAB PEG SCH (08:14)
[2016-11-21] MEDS: SODIUM CHLORIDE 0.9% FLUSH 10 ML FLUSH IV FLUSH SCH (08:14)
[2016-11-21] MEDS: NEOMYCIN/POLYMYXIN/BACITRACIN OINT 15 GM TUBE TOPICAL SCH ×2 (08:16→21:47)
[2016-11-21] MEDS: HYDROCORTISONE 1% CREAM 30 GM TOPICAL SCH ×2 (08:16→21:47)
--- NOTE | 2016-11-21 08:49 | HHI.PR ---
Subjective Remarks Patient seen and examined today for follow-up on weakness and dementia. Patient is laying in bed, sleep. Denies any new complaints. G-tube was replaced yesterday. Objective Vitals Vital Signs Date Time Temp Pulse Resp B/P Pulse Ox O2 Delivery O2 Flow Rate FiO2 11/20/16 20:00 96.5 64 20 92/66 95 I/O 11/20/16 11/20/16 11/20/16 11/21/16 11/21/16 11/21/16 07:00 15:00 23:00 07:00 15:00 23:00 Intake Total 100 ml Output Total 700 ml 350 ml 200 ml 300 ml Balance -700 ml -250 ml -200 ml -300 ml Intake Oral 100 ml Output Urine Total 700 ml 350 ml 200 ml 300 ml # Bowel Movements 1 2 1 Objective Remarks GENERAL: Well-developed, well-nourished, in no acute distress. HEENT: Head is normocephalic without any lesions or masses noted. Facial features are symmetric. Eyes: Extraocular muscles are intact. Conjunctivae were clear. NECK: Trachea midline no deviation. CARDIAC: Regular rhythm, regular rate. S1/S2 are heard. No murmurs gallops or rubs. LUNGS: Clear to auscultation bilaterally. No wheeze, rhonchi or rales. No use of accessory muscles on inspiration or expiration. ABDOMEN: Soft, nontender. Nondistended. Bowel sounds heard in all 4 quadrants. No organomegaly or masses. Negative rebound, negative guarding, suprapubic catheter in place, PEG tube no longer in place EXTREMITIES: No edema, pulses are equal bilaterally. No cyanosis or clubbing NEUROLOGY: Mood and affect appear appropriate. Cranial nerves II through XII grossly intact. Moving all extremities Procedures None Urinary Catheter: Yes (suprapubic catheter) Assessment to: Continue Date of Insertion: Nov 08, 2016 Vascular Central Line Catheter: No A/P Assessment and Plan Weakness: Continue physical therapy Nursing staff to get patient up out of bed at least 3 times daily Dementia with inappropriate behavior, mood disorder improved Patient has been hospitalized for similar events in 2014 Consulted psychiatry for further evaluation, who indicated that this is a frontal lobe dementia Risperdal discontinued at family's request Continue Remeron Parkinson's disease: Patient has dementia and resting tremor. Chronic, stable. GI bleed with presenting of Upper GI bleed, patient with intermittent rectal bleeding: Resolved Hemoglobin continues to remain stable GI was following and reevaluated on 05/04/16 Presumed hemorrhoids, status post Anusol HC for 2 weeks Continue PPI. Protein calorie malnutrition: Improving Consulted dietitian who indicated that patient may be converted to bolus feeding Jevity 1.5, 1.5, 360ml(1.5 cans)@ 0800, 1100, 1400 and 240ml(1-can)@ 1700 and 2000 Prealbumin level 24 Ensure Enlive 3 times a day since pudding 3 times a day PEG tube replaced 11/20/16 Hypotension with episodes of hypertension: Stable Continue monitor blood pressure Continue Midodrine. Mild obstructive uropathy: Resolved. Appreciate urology recommendations. Suprapubic catheter in place, improved after replacement of Soto Abdominal pelvis CT 03/06/16 shows resolution of right sided hydronephrosis. 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 Stage I decubitus ulcer, sacral skin tear: Resolved Continue wound care. Seborrhea dermatitis, recurrent Hydrocortisone cream for 2 weeks, restarted Counseled nursing staff on proper hygiene to avoid recurrence Palliative care evaluation According to palliative care notes. Family wishes aggressive management, they are expecting him to improve, go to a rehabilitation facility and then improve enough to go home. They are deferring hospice. DVT prophylaxis: SCDs. Avoid chemical prophylaxis secondary to GI bleed. Discharge Planning Discharge planning per case management. Case management still trying to reach out to son and DCF to help with nursing facilities for acceptance. Jaguar Walker Nov 21, 2016 08:49
[2016-11-21 20:00] VITALS: BP 110/71; PULSE 62; RESP 18; TEMP 96.5; O2SAT 97
[2016-11-21] MEDS: MIRTAZAPINE 15 MG TAB PEG SCH (21:47)
[2016-11-22] MEDS: MIDODRINE 5 MG TAB PO SCH ×3 (06:13→17:26)
[2016-11-22 08:00] VITALS: BP 116/82; PULSE 57; RESP 18; TEMP 96.3; O2SAT 94
[2016-11-22] MEDS: LANSOPRAZOLE SOLUTAB 30 MG TAB PEG SCH (08:12)
[2016-11-22] MEDS: FREE WATER G-TUBE SCH (08:12)
[2016-11-22] MEDS: ALLOPURINOL 100 MG TAB PEG SCH (08:13)
[2016-11-22] MEDS: HYDROCORTISONE 1% CREAM 30 GM TOPICAL SCH ×2 (08:13→20:18)
[2016-11-22] MEDS: NEOMYCIN/POLYMYXIN/BACITRACIN OINT 15 GM TUBE TOPICAL SCH ×2 (08:13→20:18)
--- NOTE | 2016-11-22 08:54 | HHI.PR ---
Subjective Remarks Patient seen and examined today for follow-up on weakness, dementia. Patient denies any new complaints. Tube feeding has been resumed. No change in clinical status Objective Vitals Vital Signs Date Time Temp Pulse Resp B/P Pulse Ox O2 Delivery O2 Flow Rate FiO2 11/21/16 20:00 96.5 62 18 110/71 97 I/O 11/21/16 11/21/16 11/21/16 11/22/16 11/22/16 11/22/16 06:59 14:59 22:59 06:59 14:59 22:59 Intake Total 2320 ml 680 ml Output Total 300 ml 450 ml 600 ml Balance -300 ml 1870 ml 80 ml Intake Oral 0 ml 0 ml Tube Feeding 1320 ml 480 ml Tube Irrigant 200 ml Other 800 ml 200 ml Output Urine Total 300 ml 450 ml 600 ml # Bowel Movements 1 0 0 Objective Remarks GENERAL: Well-developed, well-nourished, in no acute distress. HEENT: Head is normocephalic without any lesions or masses noted. Facial features are symmetric. Eyes: Extraocular muscles are intact. Conjunctivae were clear. NECK: Trachea midline no deviation. CARDIAC: Regular rhythm, regular rate. S1/S2 are heard. No murmurs gallops or rubs. LUNGS: Clear to auscultation bilaterally. No wheeze, rhonchi or rales. No use of accessory muscles on inspiration or expiration. ABDOMEN: Soft, nontender. Nondistended. Bowel sounds heard in all 4 quadrants. No organomegaly or masses. Negative rebound, negative guarding, suprapubic catheter in place, PEG tube in place with no signs of infection EXTREMITIES: No edema, pulses are equal bilaterally. No cyanosis or clubbing NEUROLOGY: Mood and affect appear appropriate. Cranial nerves II through XII grossly intact. Moving all extremities Procedures None Urinary Catheter: Yes (suprapubic catheter) Assessment to: Continue Soto insert reason: Obstruction/Retention Date of Insertion: Nov 08, 2016 Vascular Central Line Catheter: No A/P Assessment and Plan Weakness: Continue physical therapy Nursing staff to get patient up out of bed at least 3 times daily Dementia with inappropriate behavior, mood disorder improved Patient has been hospitalized for similar events in 2015 Consulted psychiatry for further evaluation, who indicated that this is a frontal lobe dementia Risperdal discontinued at family's request Continue Remeron Parkinson's disease: Patient has dementia and resting tremor. Chronic, stable. GI bleed with presenting of Upper GI bleed, patient with intermittent rectal bleeding: Resolved Hemoglobin continues to remain stable GI was following and reevaluated on 05/04/16 Presumed hemorrhoids, status post Anusol HC for 2 weeks Continue PPI. Protein calorie malnutrition: Improving Consulted dietitian who indicated that patient may be converted to bolus feeding Jevity 1.5, 1.5, 360ml(1.5 cans)@ 0800, 1100, 1400 and 240ml(1-can)@ 1700 and 2000 Prealbumin level 24 Ensure Enlive 3 times a day since pudding 3 times a day PEG tube replaced 11/20/16 Hypotension with episodes of hypertension: Stable Continue monitor blood pressure Continue Midodrine. Mild obstructive uropathy: Resolved. Appreciate urology recommendations. Suprapubic catheter in place, improved after replacement of Soto Abdominal pelvis CT 03/06/16 shows resolution of right sided hydronephrosis. 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 Stage I decubitus ulcer, sacral skin tear: Resolved Continue wound care. Seborrhea dermatitis, recurrent Hydrocortisone cream for 2 weeks, restarted Counseled nursing staff on proper hygiene to avoid recurrence Palliative care evaluation According to palliative care notes. Family wishes aggressive management, they are expecting him to improve, go to a rehabilitation facility and then improve enough to go home. They are deferring hospice. DVT prophylaxis: SCDs. Avoid chemical prophylaxis secondary to GI bleed. Discharge Planning Discharge planning per case management. Facilities still evaluating patient for placement Jaguar Walker Nov 22, 2016 08:54
[2016-11-22 20:00] VITALS: BP 110/62; PULSE 62; RESP 18; TEMP 95.9; O2SAT 95
[2016-11-22] MEDS: MIRTAZAPINE 15 MG TAB PEG SCH (20:17)
[2016-11-23] MEDS: MIDODRINE 5 MG TAB PO SCH ×3 (05:50→18:45)
[2016-11-23 05:51] VITALS: BP 115/68; PULSE 67
[2016-11-23 08:00] VITALS: BP 101/69; PULSE 60; RESP 18; TEMP 96.1; O2SAT 97
[2016-11-23] MEDS: ALLOPURINOL 100 MG TAB PEG SCH (09:21)
[2016-11-23] MEDS: LANSOPRAZOLE SOLUTAB 30 MG TAB PEG SCH (09:21)
[2016-11-23] MEDS: FREE WATER G-TUBE SCH (09:27)
[2016-11-23] MEDS: HYDROCORTISONE 1% CREAM 30 GM TOPICAL SCH ×2 (09:28→22:40)
[2016-11-23] MEDS: NEOMYCIN/POLYMYXIN/BACITRACIN OINT 15 GM TUBE TOPICAL SCH (09:28)
--- NOTE | 2016-11-23 09:39 | HHI.PR ---
Subjective Remarks Patient seen and examined today for follow-up on weakness, dementia. Patient denies any new complaints. No change in clinical status Objective Vitals Vital Signs Date Time Temp Pulse Resp B/P Pulse Ox O2 Delivery O2 Flow Rate FiO2 11/23/16 08:00 96.1 60 18 101/69 97 11/23/16 05:51 67 115/68 11/22/16 20:00 95.9 62 18 110/62 95 I/O 11/22/16 11/22/16 11/22/16 11/23/16 11/23/16 11/23/16 07:00 15:00 23:00 07:00 15:00 23:00 Intake Total 680 ml 2560 ml 0 ml Output Total 600 ml 800 ml 900 ml Balance 80 ml 1760 ml -900 ml Intake Oral 0 ml 0 ml Tube Feeding 480 ml 1560 ml Tube Irrigant 200 ml Other 200 ml 800 ml Output Urine Total 600 ml 800 ml 900 ml # Bowel Movements 0 Objective Remarks GENERAL: Well-developed, well-nourished, in no acute distress. HEENT: Head is normocephalic without any lesions or masses noted. Facial features are symmetric. Eyes: Extraocular muscles are intact. Conjunctivae were clear. NECK: Trachea midline no deviation. CARDIAC: Regular rhythm, regular rate. S1/S2 are heard. No murmurs gallops or rubs. LUNGS: Clear to auscultation bilaterally. No wheeze, rhonchi or rales. No use of accessory muscles on inspiration or expiration. ABDOMEN: Soft, nontender. Nondistended. Bowel sounds heard in all 4 quadrants. No organomegaly or masses. Negative rebound, negative guarding, suprapubic catheter in place, PEG tube in place with no signs of infection EXTREMITIES: No edema, pulses are equal bilaterally. No cyanosis or clubbing NEUROLOGY: Mood and affect appear appropriate. Cranial nerves II through XII grossly intact. Moving all extremities Procedures None Urinary Catheter: Yes (suprapubic catheter) Assessment to: Continue Soto insert reason: Obstruction/Retention Date of Insertion: Nov 08, 2016 Vascular Central Line Catheter: No A/P Assessment and Plan Weakness: Continue physical therapy Nursing staff to get patient up out of bed at least 3 times daily Dementia with inappropriate behavior, mood disorder improved Patient has been hospitalized for similar events in 2014 Consulted psychiatry for further evaluation, who indicated that this is a frontal lobe dementia Risperdal discontinued at family's request Continue Remeron Parkinson's disease: Patient has dementia and resting tremor. Chronic, stable. GI bleed with presenting of Upper GI bleed, patient with intermittent rectal bleeding: Resolved Hemoglobin continues to remain stable GI was following and reevaluated on 05/04/16 Presumed hemorrhoids, status post Anusol HC for 2 weeks Continue PPI. Protein calorie malnutrition: Improving Consulted dietitian who indicated that patient may be converted to bolus feeding Jevity 1.5, 1.5, 360ml(1.5 cans)@ 0800, 1100, 1400 and 240ml(1-can)@ 1700 and 2000 Prealbumin level 25 Ensure Enlive 3 times a day since pudding 3 times a day PEG tube replaced 11/20/16 Hypotension with episodes of hypertension: Stable Continue monitor blood pressure Continue Midodrine. Mild obstructive uropathy: Resolved. Appreciate urology recommendations. Suprapubic catheter in place, improved after replacement of Soto Abdominal pelvis CT 03/06/16 shows resolution of right sided hydronephrosis. 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 Stage I decubitus ulcer, sacral skin tear: Resolved Continue wound care. Seborrhea dermatitis, recurrent Hydrocortisone cream for 2 weeks, restarted Counseled nursing staff on proper hygiene to avoid recurrence Palliative care evaluation According to palliative care notes. Family wishes aggressive management, they are expecting him to improve, go to a rehabilitation facility and then improve enough to go home. They are deferring hospice. DVT prophylaxis: SCDs. Avoid chemical prophylaxis secondary to GI bleed. Records reviewed. No change in treatment plan at this time. Discharge Planning Discharge planning per case management. Facilities still evaluating patient for placement Jaguar Walker Nov 23, 2016 09:39
[2016-11-23 20:00] VITALS: BP 113/71; PULSE 70; RESP 20; TEMP 97.8; O2SAT 97
[2016-11-23] MEDS: MIRTAZAPINE 15 MG TAB PEG SCH (22:39)
[2016-11-24] MEDS: MIDODRINE 5 MG TAB PO SCH ×3 (06:59→18:08)
[2016-11-24 08:00] VITALS: BP 129/86; PULSE 71; RESP 18; TEMP 97.4; O2SAT 97
[2016-11-24] MEDS: FREE WATER G-TUBE SCH (09:00)
--- NOTE | 2016-11-24 09:52 | HHI.PR ---
Subjective Remarks Patient seen and examined today for follow-up on weakness and dementia. Patient denies any new complaints. When asked what up, he pointed to the ceiling. Patient appears to be in good spirits today. Objective Vitals Vital Signs Date Time Temp Pulse Resp B/P Pulse Ox O2 Delivery O2 Flow Rate FiO2 11/23/16 20:00 97.8 70 20 113/71 97 I/O 11/23/16 11/23/16 11/23/16 11/24/16 11/24/16 11/24/16 07:00 15:00 23:00 07:00 15:00 23:00 Intake Total 0 ml 500 ml 1820 ml Output Total 900 ml 1150 ml 600 ml 700 ml Balance -900 ml -650 ml 1220 ml -700 ml Intake Oral 0 ml 0 ml Tube Feeding 1320 ml Other 500 ml 500 ml Output Urine Total 900 ml 1150 ml 600 ml 700 ml # Bowel Movements 0 1 1 Objective Remarks GENERAL: Well-developed, well-nourished, in no acute distress. HEENT: Head is normocephalic without any lesions or masses noted. Facial features are symmetric. Eyes: Extraocular muscles are intact. Conjunctivae were clear. NECK: Trachea midline no deviation. CARDIAC: Regular rhythm, regular rate. S1/S2 are heard. No murmurs gallops or rubs. LUNGS: Clear to auscultation bilaterally. No wheeze, rhonchi or rales. No use of accessory muscles on inspiration or expiration. ABDOMEN: Soft, nontender. Nondistended. Bowel sounds heard in all 4 quadrants. No organomegaly or masses. Negative rebound, negative guarding, suprapubic catheter in place, PEG tube in place with no signs of infection EXTREMITIES: No edema, pulses are equal bilaterally. No cyanosis or clubbing NEUROLOGY: Mood and affect appear appropriate. Cranial nerves II through XII grossly intact. Moving all extremities Procedures None Urinary Catheter: Yes (suprapubic catheter) Assessment to: Continue Soto insert reason: Obstruction/Retention Date of Insertion: Nov 08, 2016 Vascular Central Line Catheter: No A/P Assessment and Plan Weakness: Continue physical therapy Nursing staff to get patient up out of bed at least 3 times daily Dementia with inappropriate behavior, mood disorder improved Patient has been hospitalized for similar events in 2015 Consulted psychiatry for further evaluation, who indicated that this is a frontal lobe dementia Risperdal discontinued at family's request Continue Remeron Parkinson's disease: Patient has dementia and resting tremor. Chronic, stable. GI bleed with presenting of Upper GI bleed, patient with intermittent rectal bleeding: Resolved Hemoglobin continues to remain stable GI was following and reevaluated on 05/04/16 Presumed hemorrhoids, status post Anusol HC for 2 weeks Continue PPI. Protein calorie malnutrition: Improving Consulted dietitian who indicated that patient may be converted to bolus feeding Jevity 1.5, 1.5, 360ml(1.5 cans)@ 0800, 1100, 1400 and 240ml(1-can)@ 1700 and 2000 Prealbumin level 25 Ensure Enlive 3 times a day since pudding 3 times a day PEG tube replaced 11/20/16 Hypotension with episodes of hypertension: Stable Continue monitor blood pressure Continue Midodrine. Mild obstructive uropathy: Resolved. Appreciate urology recommendations. Suprapubic catheter in place, improved after replacement of Soto Abdominal pelvis CT 03/06/16 shows resolution of right sided hydronephrosis. 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 Stage I decubitus ulcer, sacral skin tear: Resolved Continue wound care. Seborrhea dermatitis, recurrent Hydrocortisone cream for 2 weeks, restarted Counseled nursing staff on proper hygiene to avoid recurrence Palliative care evaluation According to palliative care notes. Family wishes aggressive management, they are expecting him to improve, go to a rehabilitation facility and then improve enough to go home. They are deferring hospice. DVT prophylaxis: SCDs. Avoid chemical prophylaxis secondary to GI bleed. Records reviewed. No change in treatment plan at this time. Discharge Planning Discharge planning per case management. Facilities still evaluating patient for placement Jaguar Walker Nov 24, 2016 09:52
[2016-11-24] MEDS: LANSOPRAZOLE SOLUTAB 30 MG TAB PEG SCH (10:04)
[2016-11-24] MEDS: ALLOPURINOL 100 MG TAB PEG SCH (10:04)
[2016-11-24] MEDS: HYDROCORTISONE 1% CREAM 30 GM TOPICAL SCH ×2 (10:05→22:54)
[2016-11-24 20:00] VITALS: BP 111/79; PULSE 94; RESP 20; TEMP 95.1; O2SAT 93
[2016-11-24] MEDS: MIRTAZAPINE 15 MG TAB PEG SCH (22:53)
[2016-11-25] MEDS: MIDODRINE 5 MG TAB PO SCH ×3 (05:54→17:30)
[2016-11-25] MEDS: ALLOPURINOL 100 MG TAB PEG SCH (08:46)
[2016-11-25] MEDS: FREE WATER G-TUBE SCH (08:46)
[2016-11-25] MEDS: LANSOPRAZOLE SOLUTAB 30 MG TAB PEG SCH (08:46)
[2016-11-25] MEDS: HYDROCORTISONE 1% CREAM 30 GM TOPICAL SCH ×2 (08:47→21:52)
[2016-11-25 08:58] VITALS: BP 117/71; PULSE 76; RESP 14; TEMP 97; O2SAT 97
--- NOTE | 2016-11-25 09:26 | HHI.PR ---
Subjective Remarks Patient seen and examined today for generalized weakness, dementia. Patient denies any new complaints. Lying comfortable in bed. No change in clinical status. Objective Vitals Vital Signs Date Time Temp Pulse Resp B/P Pulse Ox O2 Delivery O2 Flow Rate FiO2 11/25/16 08:58 97.0 76 14 117/71 97 11/24/16 20:00 95.1 94 20 111/79 93 I/O 11/24/16 11/24/16 11/24/16 11/25/16 11/25/16 11/25/16 06:59 14:59 22:59 06:59 14:59 22:59 Intake Total 950 ml 240 ml Output Total 700 ml 100 ml 200 ml Balance -700 ml 950 ml 140 ml -200 ml Tube Feeding 720 ml 240 ml Tube Irrigant 30 ml Other 200 ml Output Urine Total 700 ml 100 ml 200 ml # Bowel Movements 1 0 1 Objective Remarks GENERAL: Well-developed, well-nourished, in no acute distress. HEENT: Head is normocephalic without any lesions or masses noted. Facial features are symmetric. Eyes: Extraocular muscles are intact. Conjunctivae were clear. NECK: Trachea midline no deviation. CARDIAC: Regular rhythm, regular rate. S1/S2 are heard. No murmurs gallops or rubs. LUNGS: Clear to auscultation bilaterally. No wheeze, rhonchi or rales. No use of accessory muscles on inspiration or expiration. ABDOMEN: Soft, nontender. Nondistended. Bowel sounds heard in all 4 quadrants. No organomegaly or masses. Negative rebound, negative guarding, suprapubic catheter in place, PEG tube in place with no signs of infection EXTREMITIES: No edema, pulses are equal bilaterally. No cyanosis or clubbing NEUROLOGY: Mood and affect appear appropriate. Cranial nerves II through XII grossly intact. Moving all extremities Procedures None Urinary Catheter: Yes (suprapubic catheter) Assessment to: Continue Date of Insertion: Nov 08, 2016 A/P Assessment and Plan Weakness: Continue physical therapy Nursing staff to get patient up out of bed at least 3 times daily Dementia with inappropriate behavior, mood disorder improved Patient has been hospitalized for similar events in 2015 Consulted psychiatry for further evaluation, who indicated that this is a frontal lobe dementia Risperdal discontinued at family's request Continue Remeron Parkinson's disease: Patient has dementia and resting tremor. Chronic, stable. GI bleed with presenting of Upper GI bleed, patient with intermittent rectal bleeding: Resolved Hemoglobin continues to remain stable GI was following and reevaluated on 05/04/16 Presumed hemorrhoids, status post Anusol HC for 2 weeks Continue PPI. Protein calorie malnutrition: Improving Consulted dietitian who indicated that patient may be converted to bolus feeding Jevity 1.5, 1.5, 360ml(1.5 cans)@ 0800, 1100, 1400 and 240ml(1-can)@ 1700 and 2000 Prealbumin level 25 Ensure Enlive 3 times a day since pudding 3 times a day PEG tube replaced 11/20/16 Hypotension with episodes of hypertension: Stable Continue monitor blood pressure Continue Midodrine. Mild obstructive uropathy: Resolved. Appreciate urology recommendations. Suprapubic catheter in place, improved after replacement of Soto Abdominal pelvis CT 03/06/16 shows resolution of right sided hydronephrosis. 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 Stage I decubitus ulcer, sacral skin tear: Resolved Continue wound care. Seborrhea dermatitis, recurrent Hydrocortisone cream for 2 weeks, restarted Counseled nursing staff on proper hygiene to avoid recurrence Palliative care evaluation According to palliative care notes. Family wishes aggressive management, they are expecting him to improve, go to a rehabilitation facility and then improve enough to go home. They are deferring hospice. DVT prophylaxis: SCDs. Avoid chemical prophylaxis secondary to GI bleed. Records reviewed. No change in treatment plan at this time. Discharge Planning Discharge planning per case management. Facilities still evaluating patient for placement Jaguar Walker Nov 25, 2016 09:26
[2016-11-25] MEDS: MIRTAZAPINE 15 MG TAB PEG SCH (21:40)
[2016-11-25 22:00] VITALS: BP 94/71; PULSE 69; RESP 16; TEMP 96.7; O2SAT 95
[2016-11-26] MEDS: MIDODRINE 5 MG TAB PO SCH ×3 (06:15→16:57)
[2016-11-26 08:39] VITALS: BP 108/69; PULSE 98; RESP 19; TEMP 97; O2SAT 91
[2016-11-26] MEDS: FREE WATER G-TUBE SCH (09:00)
[2016-11-26] MEDS: ALLOPURINOL 100 MG TAB PEG SCH (10:02)
[2016-11-26] MEDS: LANSOPRAZOLE SOLUTAB 30 MG TAB PEG SCH (10:02)
[2016-11-26] MEDS: HYDROCORTISONE 1% CREAM 30 GM TOPICAL SCH ×2 (10:03→20:04)
--- NOTE | 2016-11-26 10:49 | HHI.PR ---
Subjective Remarks Follow-up for dementia. Patient currently uncomfortable regarding position in bed, but otherwise no acute complaints. Objective Vitals Vital Signs Date Time Temp Pulse Resp B/P Pulse Ox O2 Delivery O2 Flow Rate FiO2 11/26/16 08:39 97.0 98 19 108/69 91 11/25/16 22:00 96.7 69 16 94/71 95 I/O 11/25/16 11/25/16 11/25/16 11/26/16 11/26/16 11/26/16 06:59 14:59 22:59 06:59 14:59 22:59 Intake Total 1140 ml 680 ml 220 ml Output Total 200 ml 300 ml 350 ml Balance -200 ml 1140 ml 380 ml -130 ml Intake Oral 0 ml Tube Feeding 1080 ml 480 ml Tube Irrigant 60 ml 200 ml 220 ml Output Urine Total 200 ml 300 ml 350 ml # Bowel Movements 1 1 Objective Remarks GENERAL: Elderly male in no apparent distress. CARDIOVASCULAR: Regular rate and rhythm. RESPIRATORY: No accessory muscle use. CTAB. GASTROINTESTINAL: Abdomen soft, nontender, nondistended. NEURO: Does not speak aloud. Nods to answer questions. Procedures None Urinary Catheter: No Date of Insertion: Nov 08, 2016 Vascular Central Line Catheter: No A/P Assessment and Plan Dementia with inappropriate behavior, mood disorder improved Patient had inappropriate behavior which is resolved now. He has been very appropriate for a long time now. Patient has been hospitalized for similar events in 2015 Consulted psychiatry for further evaluation, who indicated that this is a frontal lobe dementia Risperdal 0.25 mg during the day, Risperdal 0.5 mg at night. Risperdal was discontinued per POA request. [facility] Psychiatry was reconsulted and is ok with discontinuation of Risperdal. Protein calorie malnutrition: Improving Consulted dietitian who indicated that patient may be converted to bolus feeding Jevity 1.5 w/ bolus 1.5 cans (360ml) @ 0800 and 2000 and 1 can (240ml) @ 1100, 1400 and 1700. Free Water Flush 100ml before and after each bolus feeding. Ensure Enlive tid and chocolate pudding tid. Patient desired to eat and speech therapy advised puree diet, thin liquids, but patient has not been eating. Clerical Adjudicator suggested considering appetite stimulant. This was discussed with attending, but we do not believe this would be beneficial for patient and would add unnecessary risk to the patient. Will continue with tube feeds only. Hematuria: Resolved. -Patient is not on anticoagulation. -Hemoglobin normal. -Creatinine is normal. -UA 4/5 with innumerable RBCs, but urine sample not grossly bloody. Urinary tract infection, recurrent: Urine culture positive for Proteus mirabilis and GBS on 01/20. Patient completed course of antibiotics. Abdominal pelvis CT 03/06 shows decompressed bladder with circumferential bladder wall thickening and intraluminal air possibly indicating cystitis, but the patient had been afebrile with normal WBC count. Urine culture 05/31 with Serratia marcescens, Pseudomonas, and Enterococcus faecalis. Patient was started on antibiotics. Repeat urine culture on 06/04 only reveals contaminants. Urine culture 08/07 with Enterococcus faecalis and Pseudomonas Aeruginosa similar to previous culture on 05/31. Patient remains afebrile. CBC with normal white blood cell count. Continue to change Soto monthly. 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 Monitor and treat only if symptomatic. Mild obstructive uropathy: Resolved. Appreciate urology recommendations. Suprapubic catheter to be changed monthly; last changed 11/09/16. Abdominal pelvis CT 03/06/16 shows resolution of right sided hydronephrosis. Upper GI bleeding with recurrent rectal bleeding: Resolved. Hemoglobin stable. GI reevaluated patient on 05/04. Presumed hemorrhoids, s/p Anusol HC for total of 2 weeks. Continue PPI. Seborrheic dermatitis: Improving. S/p Ketoconazole 2% shampoo, hydrocortisone lotion, and hydrocortisone cream. Continue hydrocortisone cream 1% bid x total 2 weeks as patient had good results with this last time. Chalazion: Nodule R upper eyelid. No evidence of preseptal cellulitis. -Warm compresses were applied but it was greater than 2 weeks without significant improvement. -Ophthalmology was consulted and evaluated patient on 03/26. S/p warm compresses and Tobradex 4 times a day OD x 2 weeks. Patient was intermittently compliant with eyedrops. -No worsening. Follow-up outpatient. Hypotension: chronic Blood pressure labile. Continue Midodrine. Patient on max dose. Increase free water flushes as needed. Pre-renal azotemia: BUN elevated at 23 on 11/11/16. Continue free water flushes Monitor BMP periodically Stage I decubitus ulcer, sacral skin tear: Continue wound care. Frequent turning of patient. Candidal infection: buttocks affected with satellite lesions to the perineum. -S/p Nystatin and clotrimazole Weakness: Continue physical therapy Nursing staff to get patient up out of bed at least 3 times daily Palliative care evaluation According to palliative care notes family wishes aggressive management, they are expecting him to improve, go to a rehabilitation facility and then improve enough to go home. They are declining hospice. DVT prophylaxis: SCDs. Avoid chemical prophylaxis secondary to GI bleed. Discharge Planning 11/08/16: Son will still not assist with placement. manager payer is trying to get DCF to assist with possible court guardianship. 11/15/16: CM requested [facility] to evaluate for basket operator placement. 11/21/16: [facility] reevaluating patient for placement. Madeline Ortez Nov 26, 2016 10:49 DVT prophylaxis: SCDs. Avoid chemical prophylaxis secondary to GI bleed. Discharge Planning 11/08/16: Son will still not assist with placement. manager payer is trying to get DCF to assist with possible court guardianship. 11/15/16: DORIS requested [facility] to evaluate for basket operator placement. Madeline Ortez Nov 26, 2016 10:49
[2016-11-26 20:00] VITALS: BP 112/66; PULSE 66; RESP 18; TEMP 96.8; O2SAT 94
[2016-11-26] MEDS: MIRTAZAPINE 15 MG TAB PEG SCH (20:03)
[2016-11-27] MEDS: MIDODRINE 5 MG TAB PO SCH ×3 (06:39→17:19)
[2016-11-27 08:00] VITALS: BP 110/80; PULSE 88; RESP 16; TEMP 98.8; O2SAT 95
[2016-11-27] MEDS: LANSOPRAZOLE SOLUTAB 30 MG TAB PEG SCH (08:01)
[2016-11-27] MEDS: ALLOPURINOL 100 MG TAB PEG SCH (08:01)
[2016-11-27] MEDS: FREE WATER G-TUBE SCH (08:01)
[2016-11-27] MEDS: HYDROCORTISONE 1% CREAM 30 GM TOPICAL SCH ×2 (08:02→20:18)
--- NOTE | 2016-11-27 09:58 | HHI.PR ---
Subjective Remarks Follow-up for dementia. No acute complaints. Objective Vitals Vital Signs Date Time Temp Pulse Resp B/P Pulse Ox O2 Delivery O2 Flow Rate FiO2 11/26/16 20:00 96.8 66 18 112/66 94 I/O 11/26/16 11/26/16 11/26/16 11/27/16 11/27/16 11/27/16 06:59 14:59 22:59 06:59 14:59 22:59 Intake Total 220 ml 1480 ml 290 ml 0 ml 660 ml Output Total 350 ml 800 ml Balance -130 ml 1480 ml 290 ml -800 ml 660 ml Intake Oral 0 ml 0 ml Tube Feeding 1080 ml 240 ml 360 ml Tube Irrigant 220 ml 100 ml 50 ml 100 ml Other 300 ml 200 ml Output Urine Total 350 ml 800 ml # Bowel Movements 1 2 Objective Remarks GENERAL: Elderly male in no apparent distress. SKIN: Significant flaking skin to the chin and neck. CARDIOVASCULAR: Regular rate and rhythm. RESPIRATORY: No accessory muscle use. CTAB. GASTROINTESTINAL: Abdomen soft, nontender, nondistended. NEURO: Does not speak aloud. Nods to answer questions. Procedures None Urinary Catheter: No Date of Insertion: Nov 08, 2016 Vascular Central Line Catheter: No A/P Assessment and Plan Dementia with inappropriate behavior, mood disorder improved Patient had inappropriate behavior which is resolved now. He has been very appropriate for a long time now. Patient has been hospitalized for similar events in 2015 Consulted psychiatry for further evaluation, who indicated that this is a frontal lobe dementia Risperdal 0.25 mg during the day, Risperdal 0.5 mg at night. Risperdal was discontinued per POA request. [facility] Psychiatry was reconsulted and is ok with discontinuation of Risperdal. Protein calorie malnutrition: Improving Consulted dietitian who indicated that patient may be converted to bolus feeding Jevity 1.5 w/ bolus 1.5 cans (360ml) @ 0800 and 2000 and 1 can (240ml) @ 1100, 1400 and 1700. Free Water Flush 100ml before and after each bolus feeding. Ensure Enlive tid and chocolate pudding tid. Patient desired to eat and speech therapy advised puree diet, thin liquids, but patient has not been eating. 1St Grade Teacher suggested considering appetite stimulant. This was discussed with attending, but we do not believe this would be beneficial for patient and would add unnecessary risk to the patient. Will continue with tube feeds only. Hematuria: Resolved. -Patient is not on anticoagulation. -Hemoglobin normal. -Creatinine is normal. -UA 4/5 with innumerable RBCs, but urine sample not grossly bloody. Urinary tract infection, recurrent: Urine culture positive for Proteus mirabilis and GBS on 01/20. Patient completed course of antibiotics. Abdominal pelvis CT 03/06 shows decompressed bladder with circumferential bladder wall thickening and intraluminal air possibly indicating cystitis, but the patient had been afebrile with normal WBC count. Urine culture 05/31 with Serratia marcescens, Pseudomonas, and Enterococcus faecalis. Patient was started on antibiotics. Repeat urine culture on 06/04 only reveals contaminants. Urine culture / with Enterococcus faecalis and Pseudomonas Aeruginosa similar to previous culture on 05/31. Patient remains afebrile. CBC with normal white blood cell count. Continue to change Soto monthly. 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 Monitor and treat only if symptomatic. Mild obstructive uropathy: Resolved. Appreciate urology recommendations. Suprapubic catheter to be changed monthly; last changed 11/09/16. Abdominal pelvis CT 03/06/16 shows resolution of right sided hydronephrosis. Upper GI bleeding with recurrent rectal bleeding: Resolved. Hemoglobin stable. GI reevaluated patient on 05/04. Presumed hemorrhoids, s/p Anusol HC for total of 2 weeks. Continue PPI. Seborrheic dermatitis: Worse flaking today. S/p Ketoconazole 2% shampoo, hydrocortisone lotion, and hydrocortisone cream. Continue hydrocortisone cream 1% bid x total 2 weeks as patient had good results with this last time. Chalazion: Nodule R upper eyelid. No evidence of preseptal cellulitis. -Warm compresses were applied but it was greater than 2 weeks without significant improvement. -Ophthalmology was consulted and evaluated patient on 03/26. S/p warm compresses and Tobradex 4 times a day OD x 2 weeks. Patient was intermittently compliant with eyedrops. -No worsening. Follow-up outpatient. Hypotension: chronic Blood pressure labile. Continue Midodrine. Patient on max dose. Increase free water flushes as needed. Pre-renal azotemia: BUN elevated at 23 on 11/11/16. Continue free water flushes Monitor BMP periodically Stage I decubitus ulcer, sacral skin tear: Continue wound care. Frequent turning of patient. Candidal infection: buttocks affected with satellite lesions to the perineum. -S/p Nystatin and clotrimazole Weakness: Continue physical therapy Nursing staff to get patient up out of bed at least 3 times daily Palliative care evaluation According to palliative care notes family wishes aggressive management, they are expecting him to improve, go to a rehabilitation facility and then improve enough to go home. They are declining hospice. DVT prophylaxis: SCDs. Avoid chemical prophylaxis secondary to GI bleed. Discharge Planning 11/08/16: Son will still not assist with placement. manager loss prevention is trying to get DCF to assist with possible court guardianship. 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 11/21/16: [facility] reevaluating patient for placement. Madeline Ortez Nov 27, 2016 09:58 Madeline Ortez Nov 27, 2016 09:58
[2016-11-27 20:00] VITALS: BP 109/65; PULSE 85; RESP 20; TEMP 98.9; O2SAT 93
[2016-11-27] MEDS: MIRTAZAPINE 15 MG TAB PEG SCH (20:17)
[2016-11-28] MEDS: MIDODRINE 5 MG TAB PO SCH ×3 (06:54→18:24)
[2016-11-28 08:00] VITALS: BP 122/79; PULSE 72; RESP 16; TEMP 98; O2SAT 96
[2016-11-28] MEDS: LANSOPRAZOLE SOLUTAB 30 MG TAB PEG SCH (08:22)
[2016-11-28] MEDS: ALLOPURINOL 100 MG TAB PEG SCH (08:22)
[2016-11-28] MEDS: FREE WATER G-TUBE SCH (08:25)
[2016-11-28] MEDS: HYDROCORTISONE 1% CREAM 30 GM TOPICAL SCH ×2 (08:25→20:24)
--- NOTE | 2016-11-28 11:48 | HHI.PR ---
Subjective Remarks Follow up for dementia. No acute complaints. Objective Vitals Vital Signs Date Time Temp Pulse Resp B/P Pulse Ox O2 Delivery O2 Flow Rate FiO2 11/28/16 08:00 98.0 72 16 122/79 96 11/27/16 20:00 98.9 85 20 109/65 93 I/O 11/27/16 11/27/16 11/27/16 11/28/16 11/28/16 11/28/16 07:00 15:00 23:00 07:00 15:00 23:00 Intake Total 0 ml 1580 ml 340 ml Output Total 800 ml 1 ml 425 ml 450 ml Balance -800 ml 1579 ml -85 ml -450 ml Intake Oral 0 ml Tube Feeding 1080 ml 240 ml Tube Irrigant 300 ml 100 ml Other 200 ml Output Urine Total 800 ml 425 ml 450 ml Stool Total 1 ml # Bowel Movements 2 1 0 Objective Remarks GENERAL: Elderly male in no apparent distress. SKIN: Face appears improved; no notable red patches or flaking skin to the face. CARDIOVASCULAR: Regular rate and rhythm. RESPIRATORY: No accessory muscle use. CTAB. GASTROINTESTINAL: Normoactive bowel sounds. Abdomen soft, nontender, nondistended. NEURO: Does not speak aloud. Nods to answer questions. Procedures None Urinary Catheter: No Date of Insertion: Nov 08, 2016 Vascular Central Line Catheter: No A/P Assessment and Plan Dementia with inappropriate behavior, mood disorder improved Patient had inappropriate behavior which is resolved now. He has been very appropriate for a long time now. Patient has been hospitalized for similar events in 2015 Consulted psychiatry for further evaluation, who indicated that this is a frontal lobe dementia Risperdal 0.25 mg during the day, Risperdal 0.5 mg at night. Risperdal was discontinued per POA request. [facility] Psychiatry was reconsulted and is ok with discontinuation of Risperdal. Protein calorie malnutrition: Improving Consulted dietitian who indicated that patient may be converted to bolus feeding Jevity 1.5 w/ bolus 1.5 cans (360ml) @ 0800 and 2000 and 1 can (240ml) @ 1100, 1400 and 1700. Free Water Flush 100ml before and after each bolus feeding. Ensure Enlive tid and chocolate pudding tid. Patient desired to eat and speech therapy advised puree diet, thin liquids, but patient has not been eating. New Accounts Clerk suggested considering appetite stimulant. This was discussed with attending, but we do not believe this would be beneficial for patient and would add unnecessary risk to the patient. Will continue with tube feeds only. Hematuria: Resolved. -Patient is not on anticoagulation. -Hemoglobin normal. -Creatinine is normal. -UA 4/5 with innumerable RBCs, but urine sample not grossly bloody. Urinary tract infection, recurrent: Urine culture positive for Proteus mirabilis and GBS on 01/20. Patient completed course of antibiotics. Abdominal pelvis CT 03/06 shows decompressed bladder with circumferential bladder wall thickening and intraluminal air possibly indicating cystitis, but the patient had been afebrile with normal WBC count. Urine culture 05/31 with Serratia marcescens, Pseudomonas, and Enterococcus faecalis. Patient was started on antibiotics. Repeat urine culture on 06/04 only reveals contaminants. Urine culture /5 with Enterococcus faecalis and Pseudomonas Aeruginosa similar to previous culture on 05/31. Patient remains afebrile. CBC with normal white blood cell count. Continue to change Soto monthly. 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 Monitor and treat only if symptomatic. Mild obstructive uropathy: Resolved. Appreciate urology recommendations. Suprapubic catheter to be changed monthly; last changed 11/09/16. Abdominal pelvis CT 03/06/16 shows resolution of right sided hydronephrosis. Upper GI bleeding with recurrent rectal bleeding: Resolved. Hemoglobin stable. GI reevaluated patient on 05/04. Presumed hemorrhoids, s/p Anusol HC for total of 2 weeks. Continue PPI. Seborrheic dermatitis: Improved. S/p Ketoconazole 2% shampoo, hydrocortisone lotion, and hydrocortisone cream. Continue hydrocortisone cream 1% bid x total 2 weeks as patient had good results with this last time. Chalazion: Nodule R upper eyelid. No evidence of preseptal cellulitis. -Warm compresses were applied but it was greater than 2 weeks without significant improvement. -Ophthalmology was consulted and evaluated patient on 03/26. S/p warm compresses and Tobradex 4 times a day OD x 2 weeks. Patient was intermittently compliant with eyedrops. -No worsening. Follow-up outpatient. Hypotension: chronic Blood pressure labile. Continue Midodrine. Patient on max dose. Increase free water flushes as needed. Pre-renal azotemia: BUN elevated at 23 on 11/11/16. Continue free water flushes Monitor BMP periodically Stage I decubitus ulcer, sacral skin tear: Continue wound care. Frequent turning of patient. Candidal infection: buttocks affected with satellite lesions to the perineum. -S/p Nystatin and clotrimazole Weakness: Continue physical therapy Nursing staff to get patient up out of bed at least 3 times daily Palliative care evaluation According to palliative care notes family wishes aggressive management, they are expecting him to improve, go to a rehabilitation facility and then improve enough to go home. They are declining hospice. DVT prophylaxis: SCDs. Avoid chemical prophylaxis secondary to GI bleed. Discharge Planning 11/08/16: Son will still not assist with placement. media manager is trying to get DCF to assist with possible court guardianship. 11/15/16: CM requested [facility] to evaluate for half-way placement. 11/21/16: [facility] reevaluating patient for placement. Madeline Ortez Nov 28, 2016 11:47 DVT prophylaxis: SCDs. Avoid chemical prophylaxis secondary to GI bleed. Discharge Planning 11/08/16: Son will still not assist with placement. media manager is trying to get DCF to assist with possible court guardianship. 11/15/16: CM requested [facility] to evaluate for buttermaker continuous churn placement. 11/21/16: [facility] reevaluating patient for placement. Madeline Ortez Nov 28, 2016 11:47
[2016-11-28 20:00] VITALS: BP 108/67; PULSE 80; RESP 20; TEMP 98.3; O2SAT 95
[2016-11-28] MEDS: MIRTAZAPINE 15 MG TAB PEG SCH (20:23)
[2016-11-29] MEDS: MIDODRINE 5 MG TAB PO SCH ×3 (06:38→17:41)
[2016-11-29 08:00] VITALS: BP 109/71; PULSE 65; RESP 17; TEMP 97.4; O2SAT 97
[2016-11-29] MEDS: LANSOPRAZOLE SOLUTAB 30 MG TAB PEG SCH (08:34)
[2016-11-29] MEDS: ALLOPURINOL 100 MG TAB PEG SCH (08:34)
[2016-11-29] MEDS: FREE WATER G-TUBE SCH (08:34)
[2016-11-29] MEDS: HYDROCORTISONE 1% CREAM 30 GM TOPICAL SCH ×2 (08:35→20:59)
--- NOTE | 2016-11-29 11:30 | HHI.PR ---
Subjective Remarks Follow-up for dementia. No acute complaints. Objective Vitals Vital Signs Date Time Temp Pulse Resp B/P Pulse Ox O2 Delivery O2 Flow Rate FiO2 11/29/16 08:00 97.4 65 17 109/71 97 11/28/16 20:00 98.3 80 20 108/67 95 I/O 11/28/16 11/28/16 11/28/16 11/29/16 11/29/16 11/29/16 06:59 14:59 22:59 06:59 14:59 22:59 Intake Total 1455 ml 365 ml 860 ml Output Total 450 ml 1100 ml 175 ml Balance -450 ml 1455 ml -735 ml 685 ml Intake Oral 0 ml 0 ml Tube Feeding 1080 ml 240 ml 660 ml Other 375 ml 125 ml 200 ml Output Urine Total 450 ml 1100 ml 175 ml # Bowel Movements 0 1 2 Objective Remarks GENERAL: Elderly male in no apparent distress. SKIN: Flaking skin over the left lower face. No erythematous patches. CARDIOVASCULAR: Regular rate and rhythm. RESPIRATORY: No accessory muscle use. CTAB. GASTROINTESTINAL: Normoactive bowel sounds. Abdomen soft, nontender, nondistended. NEURO: Does not speak aloud. Nods to answer questions. Procedures None Urinary Catheter: No Date of Insertion: Nov 08, 2016 Vascular Central Line Catheter: No A/P Assessment and Plan Dementia with inappropriate behavior, mood disorder improved Patient had inappropriate behavior which is resolved now. He has been very appropriate for a long time now. Patient has been hospitalized for similar events in 2015 Consulted psychiatry for further evaluation, who indicated that this is a frontal lobe dementia Risperdal 0.25 mg during the day, Risperdal 0.5 mg at night. Risperdal was discontinued per POA request. [facility] Psychiatry was reconsulted and is ok with discontinuation of Risperdal. Protein calorie malnutrition: Improving Consulted dietitian who indicated that patient may be converted to bolus feeding Jevity 1.5 w/ bolus 1.5 cans (360ml) @ 0800 and 2000 and 1 can (240ml) @ 1100, 1400 and 1700. Free Water Flush 100ml before and after each bolus feeding. Ensure Enlive tid and chocolate pudding tid. Patient desired to eat and speech therapy advised puree diet, thin liquids, but patient has not been eating. Supervisor Paper Coating suggested considering appetite stimulant. This was discussed with attending, but we do not believe this would be beneficial for patient and would add unnecessary risk to the patient. Will continue with tube feeds only. Hematuria: Resolved. -Patient is not on anticoagulation. -Hemoglobin normal. -Creatinine is normal. -UA 4/5 with innumerable RBCs, but urine sample not grossly bloody. Urinary tract infection, recurrent: Urine culture positive for Proteus mirabilis and GBS on 01/20. Patient completed course of antibiotics. Abdominal pelvis CT 03/06 shows decompressed bladder with circumferential bladder wall thickening and intraluminal air possibly indicating cystitis, but the patient had been afebrile with normal WBC count. Urine culture 05/31 with Serratia marcescens, Pseudomonas, and Enterococcus faecalis. Patient was started on antibiotics. Repeat urine culture on 06/04 only reveals contaminants. Urine culture /5 with Enterococcus faecalis and Pseudomonas Aeruginosa similar to previous culture on 05/31. Patient remains afebrile. CBC with normal white blood cell count. Continue to change Soto monthly. 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 Monitor and treat only if symptomatic. Mild obstructive uropathy: Resolved. Appreciate urology recommendations. Suprapubic catheter to be changed monthly; last changed 11/09/16. Abdominal pelvis CT 03/06/16 shows resolution of right sided hydronephrosis. Upper GI bleeding with recurrent rectal bleeding: Resolved. Hemoglobin stable. GI reevaluated patient on 05/04. Presumed hemorrhoids, s/p Anusol HC for total of 2 weeks. Continue PPI. Seborrheic dermatitis: Improved. S/p Ketoconazole 2% shampoo, hydrocortisone lotion, and hydrocortisone cream. Continue hydrocortisone cream 1% bid x total 2 weeks as patient had good results with this last time. Chalazion: Nodule R upper eyelid. No evidence of preseptal cellulitis. -Warm compresses were applied but it was greater than 2 weeks without significant improvement. -Ophthalmology was consulted and evaluated patient on 03/26. S/p warm compresses and Tobradex 4 times a day OD x 2 weeks. Patient was intermittently compliant with eyedrops. -No worsening. Follow-up outpatient. Hypotension: chronic Blood pressure labile. Continue Midodrine. Patient on max dose. Increase free water flushes as needed. Pre-renal azotemia: BUN elevated at 23 on 11/11/16. Continue free water flushes Monitor BMP periodically Stage I decubitus ulcer, sacral skin tear: Continue wound care. Frequent turning of patient. Candidal infection: buttocks affected with satellite lesions to the perineum. -S/p Nystatin and clotrimazole Weakness: Continue physical therapy Nursing staff to get patient up out of bed at least 3 times daily Palliative care evaluation According to palliative care notes family wishes aggressive management, they are expecting him to improve, go to a rehabilitation facility and then improve enough to go home. They are declining hospice. DVT prophylaxis: SCDs. Avoid chemical prophylaxis secondary to GI bleed. Discharge Planning 11/08/16: Son will still not assist with placement. cultural centre manager is trying to get DCF to assist with possible court guardianship. 11/15/16: CM requested [facility] to evaluate for fdc placement. 11/21/16: [facility] reevaluating patient for placement. Madeline Ortez Nov 29, 2016 11:30 DVT prophylaxis: SCDs. Avoid chemical prophylaxis secondary to GI bleed. Discharge Planning 11/08/16: Son will still not assist with placement. cultural centre manager is trying to get DCF to assist with possible court guardianship. 11/15/16: CM requested [facility] to evaluate for fdc placement. 11/21/16: [facility] reevaluating patient for placement. Madeline Ortez Nov 29, 2016 11:30
[2016-11-29 20:39] VITALS: BP 107/70; PULSE 65; RESP 16; TEMP 97.2; O2SAT 95
[2016-11-29] MEDS: MIRTAZAPINE 15 MG TAB PEG SCH (20:58)
[2016-11-30] MEDS: MIDODRINE 5 MG TAB PO SCH ×3 (06:03→16:54)
[2016-11-30 08:00] VITALS: BP 126/77; PULSE 80; RESP 18; TEMP 98; O2SAT 95
[2016-11-30] MEDS: FREE WATER G-TUBE SCH (08:15)
[2016-11-30] MEDS: LANSOPRAZOLE SOLUTAB 30 MG TAB PEG SCH (08:15)
[2016-11-30] MEDS: ALLOPURINOL 100 MG TAB PEG SCH (08:15)
[2016-11-30] MEDS: HYDROCORTISONE 1% CREAM 30 GM TOPICAL SCH ×2 (08:21→20:11)
--- NOTE | 2016-11-30 09:45 | HHI.PR ---
Subjective Remarks Follow up for dementia. No acute complaints. Objective Vitals Vital Signs Date Time Temp Pulse Resp B/P Pulse Ox O2 Delivery O2 Flow Rate FiO2 11/29/16 20:39 97.2 65 16 107/70 95 I/O 11/29/16 11/29/16 11/29/16 11/30/16 11/30/16 11/30/16 07:00 15:00 23:00 07:00 15:00 23:00 Intake Total 1480 ml 580 ml Output Total 575 ml 350 ml 1000 ml Balance 905 ml 230 ml -1000 ml Intake Oral 0 ml Tube Feeding 1080 ml 480 ml Other 400 ml 100 ml Output Urine Total 575 ml 350 ml 1000 ml # Bowel Movements 3 1 3 Objective Remarks GENERAL: Elderly male in no apparent distress. CARDIOVASCULAR: Regular rate and rhythm. RESPIRATORY: No accessory muscle use. CTAB. GASTROINTESTINAL: Normoactive bowel sounds. Abdomen soft, nontender, nondistended. NEURO: Does not speak aloud. Nods to answer questions. Procedures None Urinary Catheter: No Date of Insertion: Nov 08, 2016 Vascular Central Line Catheter: No A/P Assessment and Plan Dementia with inappropriate behavior, mood disorder improved Patient had inappropriate behavior which is resolved now. He has been very appropriate for a long time now. Patient has been hospitalized for similar events in 2015 Consulted psychiatry for further evaluation, who indicated that this is a frontal lobe dementia Risperdal 0.25 mg during the day, Risperdal 0.5 mg at night. Risperdal was discontinued per POA request. [facility] Psychiatry was reconsulted and is ok with discontinuation of Risperdal. Protein calorie malnutrition: Improving Consulted dietitian who indicated that patient may be converted to bolus feeding Jevity 1.5 w/ bolus 1.5 cans (360ml) @ 0800 and 2000 and 1 can (240ml) @ 1100, 1400 and 1700. Free Water Flush 100ml before and after each bolus feeding. Ensure Enlive tid and chocolate pudding tid. Patient desired to eat and speech therapy advised puree diet, thin liquids, but patient has not been eating. Copy Cutter suggested considering appetite stimulant. This was discussed with attending, but we do not believe this would be beneficial for patient and would add unnecessary risk to the patient. Will continue with tube feeds only. Hematuria: Resolved. -Patient is not on anticoagulation. -Hemoglobin normal. -Creatinine is normal. -UA 4/5 with innumerable RBCs, but urine sample not grossly bloody. Urinary tract infection, recurrent: Urine culture positive for Proteus mirabilis and GBS on 01/20. Patient completed course of antibiotics. Abdominal pelvis CT 03/06 shows decompressed bladder with circumferential bladder wall thickening and intraluminal air possibly indicating cystitis, but the patient had been afebrile with normal WBC count. Urine culture 05/31 with Serratia marcescens, Pseudomonas, and Enterococcus faecalis. Patient was started on antibiotics. Repeat urine culture on 06/04 only reveals contaminants. Urine culture /5 with Enterococcus faecalis and Pseudomonas Aeruginosa similar to previous culture on 05/31. Patient remains afebrile. CBC with normal white blood cell count. Continue to change Soto monthly. 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 Monitor and treat only if symptomatic. Mild obstructive uropathy: Resolved. Appreciate urology recommendations. Suprapubic catheter to be changed monthly; last changed 11/09/16. Abdominal pelvis CT 03/06/16 shows resolution of right sided hydronephrosis. Upper GI bleeding with recurrent rectal bleeding: Resolved. Hemoglobin stable. GI reevaluated patient on 05/04. Presumed hemorrhoids, s/p Anusol HC for total of 2 weeks. Continue PPI. Seborrheic dermatitis: Improved. S/p Ketoconazole 2% shampoo, hydrocortisone lotion, and hydrocortisone cream. Continue hydrocortisone cream 1% bid x total 2 weeks as patient had good results with this last time. Chalazion: Nodule R upper eyelid. No evidence of preseptal cellulitis. -Warm compresses were applied but it was greater than 2 weeks without significant improvement. -Ophthalmology was consulted and evaluated patient on 03/26. S/p warm compresses and Tobradex 4 times a day OD x 2 weeks. Patient was intermittently compliant with eyedrops. -No worsening. Follow-up outpatient. Hypotension: chronic Blood pressure labile. Continue Midodrine. Patient on max dose. Increase free water flushes as needed. Pre-renal azotemia: BUN elevated at 23 on 11/11/16. Continue free water flushes Monitor BMP periodically Stage I decubitus ulcer, sacral skin tear: Continue wound care. Frequent turning of patient. Candidal infection: buttocks affected with satellite lesions to the perineum. -S/p Nystatin and clotrimazole Weakness: Continue physical therapy Nursing staff to get patient up out of bed at least 3 times daily Palliative care evaluation According to palliative care notes family wishes aggressive management, they are expecting him to improve, go to a rehabilitation facility and then improve enough to go home. They are declining hospice. DVT prophylaxis: SCDs. Avoid chemical prophylaxis secondary to GI bleed. Discharge Planning 11/08/16: Son will still not assist with placement. e business manager is trying to get DCF to assist with possible court guardianship. 11/15/16: DORIS requested [facility] to evaluate for rat exterminator placement. 11/21/16: [facility] reevaluating patient for placement. Madeline Ortez Nov 30, 2016 09:45 11/15/16: DORIS requested [facility] to evaluate for intermediate placement. 11/21/16: [facility] reevaluating patient for placement. Madeline Ortez Nov 30, 2016 09:45
[2016-11-30 20:00] VITALS: BP 110/70; PULSE 73; RESP 20; TEMP 96.5; O2SAT 96
[2016-11-30] MEDS: MIRTAZAPINE 15 MG TAB PEG SCH (20:11)
[2016-12-01] MEDS: MIDODRINE 5 MG TAB PO SCH ×3 (06:36→17:13)
[2016-12-01 08:00] VITALS: BP_SYST 121; BP_SYST 122; BP_DIAS 72; BP_DIAS 83; PULSE 82; RESP 18; TEMP 98.7; O2SAT 97
[2016-12-01] MEDS: LANSOPRAZOLE SOLUTAB 30 MG TAB PEG SCH (09:03)
[2016-12-01] MEDS: ALLOPURINOL 100 MG TAB PEG SCH (09:03)
[2016-12-01] MEDS: FREE WATER G-TUBE SCH (09:03)
[2016-12-01] MEDS: HYDROCORTISONE 1% CREAM 30 GM TOPICAL SCH ×2 (09:04→20:04)
--- NOTE | 2016-12-01 09:57 | HHI.PR ---
Subjective Remarks Follow-up for dementia. No acute complaints. Objective Vitals Vital Signs Date Time Temp Pulse Resp B/P Pulse Ox O2 Delivery O2 Flow Rate FiO2 11/30/16 20:00 96.5 73 20 110/70 96 I/O 11/30/16 11/30/16 11/30/16 12/01/16 12/01/16 12/01/16 07:00 15:00 23:00 07:00 15:00 23:00 Intake Total 0 ml 300 ml Output Total 1000 ml 550 ml Balance -1000 ml -550 ml 300 ml Intake Oral 0 ml Tube Feeding 300 ml Output Urine Total 1000 ml 550 ml # Bowel Movements 3 Objective Remarks GENERAL: Elderly male in no apparent distress. CARDIOVASCULAR: Regular rate and rhythm. RESPIRATORY: No accessory muscle use. CTAB. GASTROINTESTINAL: Abdomen soft, nontender, nondistended. NEURO: Does not speak aloud. Nods to answer questions. Procedures None Urinary Catheter: No Date of Insertion: Nov 08, 2016 Vascular Central Line Catheter: No A/P Assessment and Plan Dementia with inappropriate behavior, mood disorder improved Patient had inappropriate behavior which is resolved now. He has been very appropriate for a long time now. Patient has been hospitalized for similar events in 2015 Consulted psychiatry for further evaluation, who indicated that this is a frontal lobe dementia Risperdal 0.25 mg during the day, Risperdal 0.5 mg at night. Risperdal was discontinued per POA request. [facility] Psychiatry was reconsulted and is ok with discontinuation of Risperdal. Protein calorie malnutrition: Improving Consulted dietitian who indicated that patient may be converted to bolus feeding Jevity 1.5 w/ bolus 1.5 cans (360ml) @ 0800 and 2000 and 1 can (240ml) @ 1100, 1400 and 1700. Free Water Flush 100ml before and after each bolus feeding. Ensure Enlive tid and chocolate pudding tid. Patient desired to eat and speech therapy advised puree diet, thin liquids, but patient has not been eating. Cable Cutter And Swager suggested considering appetite stimulant. This was discussed with attending, but we do not believe this would be beneficial for patient and would add unnecessary risk to the patient. Will continue with tube feeds only. Hematuria: Resolved. -Patient is not on anticoagulation. -Hemoglobin normal. -Creatinine is normal. -UA 4/5 with innumerable RBCs, but urine sample not grossly bloody. Urinary tract infection, recurrent: Urine culture positive for Proteus mirabilis and GBS on 01/20. Patient completed course of antibiotics. Abdominal pelvis CT 03/06 shows decompressed bladder with circumferential bladder wall thickening and intraluminal air possibly indicating cystitis, but the patient had been afebrile with normal WBC count. Urine culture 05/31 with Serratia marcescens, Pseudomonas, and Enterococcus faecalis. Patient was started on antibiotics. Repeat urine culture on 06/04 only reveals contaminants. Urine culture 08/07 with Enterococcus faecalis and Pseudomonas Aeruginosa similar to previous culture on 05/31. Patient remains afebrile. CBC with normal white blood cell count. Continue to change Soto monthly. 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 Monitor and treat only if symptomatic. Mild obstructive uropathy: Resolved. Appreciate urology recommendations. Suprapubic catheter to be changed monthly; last changed 11/09/16. Abdominal pelvis CT 03/06/16 shows resolution of right sided hydronephrosis. Upper GI bleeding with recurrent rectal bleeding: Resolved. Hemoglobin stable. GI reevaluated patient on 05/04. Presumed hemorrhoids, s/p Anusol HC for total of 2 weeks. Continue PPI. Seborrheic dermatitis: Improved. S/p Ketoconazole 2% shampoo, hydrocortisone lotion, and hydrocortisone cream. Continue hydrocortisone cream 1% bid x total 2 weeks. Chalazion: Nodule R upper eyelid. No evidence of preseptal cellulitis. -Warm compresses were applied but it was greater than 2 weeks without significant improvement. -Ophthalmology was consulted and evaluated patient on 03/26. S/p warm compresses and Tobradex 4 times a day OD x 2 weeks. Patient was intermittently compliant with eyedrops. -No worsening. Follow-up outpatient. Hypotension: chronic Blood pressure labile. Continue Midodrine. Patient on max dose. Increase free water flushes as needed. Pre-renal azotemia: BUN elevated at 23 on 11/11/16. Continue free water flushes Monitor BMP periodically Stage I decubitus ulcer, sacral skin tear: Continue wound care. Frequent turning of patient. Candidal infection: buttocks affected with satellite lesions to the perineum. -S/p Nystatin and clotrimazole Weakness: Continue physical therapy Nursing staff to get patient up out of bed at least 3 times daily Palliative care evaluation According to palliative care notes family wishes aggressive management, they are expecting him to improve, go to a rehabilitation facility and then improve enough to go home. They are declining hospice. DVT prophylaxis: SCDs. Avoid chemical prophylaxis secondary to GI bleed. Discharge Planning 11/08/16: Son will still not assist with placement. manager distribution is trying to get DCF to assist with possible court guardianship. 11/15/16: CM requested [facility] to evaluate for [facility] placement. 11/21/16: [facility] reevaluating patient for placement. Madeline Ortez Dec 01, 2016 09:57 DCF to assist with possible court guardianship. 11/15/16: CM requested [facility] to evaluate for [facility] placement. 11/21/16: [facility] reevaluating patient for placement. Madeline Ortez Dec 01, 2016 09:57
[2016-12-01 20:00] VITALS: BP 118/79; PULSE 74; RESP 16; TEMP 96.8; O2SAT 95
[2016-12-01] MEDS: MIRTAZAPINE 15 MG TAB PEG SCH (20:03)
[2016-12-02] MEDS: MIDODRINE 5 MG TAB PO SCH ×3 (06:36→16:19)
[2016-12-02 08:13] VITALS: BP 141/81; PULSE 65; RESP 18; TEMP 97.6; O2SAT 98
[2016-12-02] MEDS: FREE WATER G-TUBE SCH (08:32)
[2016-12-02] MEDS: LANSOPRAZOLE SOLUTAB 30 MG TAB PEG SCH (08:35)
[2016-12-02] MEDS: ALLOPURINOL 100 MG TAB PEG SCH (08:35)
--- NOTE | 2016-12-02 10:43 | HHI.PR ---
Subjective Remarks Follow up for dementia. No acute complaints. Objective Vitals Vital Signs Date Time Temp Pulse Resp B/P Pulse Ox O2 Delivery O2 Flow Rate FiO2 12/02/16 08:13 97.6 65 18 141/81 98 12/01/16 20:00 96.8 74 16 118/79 95 I/O 12/01/16 12/01/16 12/01/16 12/02/16 12/02/16 12/02/16 07:00 15:00 23:00 07:00 15:00 23:00 Intake Total 0 ml 300 ml 2120 ml Output Total 550 ml 951 ml 1900 ml Balance -550 ml 300 ml 1169 ml -1900 ml Intake Oral 0 ml Tube Feeding 300 ml 1320 ml Other 800 ml Output Urine Total 550 ml 950 ml 1900 ml Stool Total 1 ml # Bowel Movements 6 Objective Remarks GENERAL: Elderly male in no apparent distress. SKIN: No red patches to the face; no flaking. CARDIOVASCULAR: Regular rate and rhythm. RESPIRATORY: No accessory muscle use. CTAB. GASTROINTESTINAL: Normoactive bowel sounds. Abdomen soft, nontender, nondistended. NEURO: Does not speak aloud. Nods to answer questions. Procedures None Urinary Catheter: No Date of Insertion: Nov 08, 2016 Vascular Central Line Catheter: No A/P Assessment and Plan Dementia with inappropriate behavior, mood disorder improved Patient had inappropriate behavior which is resolved now. He has been very appropriate for a long time now. Patient has been hospitalized for similar events in 2015 Consulted psychiatry for further evaluation, who indicated that this is a frontal lobe dementia Risperdal 0.25 mg during the day, Risperdal 0.5 mg at night. Risperdal was discontinued per POA request. [facility] Psychiatry was reconsulted and is ok with discontinuation of Risperdal. Protein calorie malnutrition: Improving Consulted dietitian who indicated that patient may be converted to bolus feeding Jevity 1.5 w/ bolus 1.5 cans (360ml) @ 0800 and 2000 and 1 can (240ml) @ 1100, 1400 and 1700. Free Water Flush 100ml before and after each bolus feeding. Ensure Enlive tid and chocolate pudding tid. Patient desired to eat and speech therapy advised puree diet, thin liquids, but patient has not been eating. Bulldozer Engineer suggested considering appetite stimulant. This was discussed with attending, but we do not believe this would be beneficial for patient and would add unnecessary risk to the patient. Will continue with tube feeds only. Hematuria: Resolved. -Patient is not on anticoagulation. -Hemoglobin normal. -Creatinine is normal. -UA 4/5 with innumerable RBCs, but urine sample not grossly bloody. Urinary tract infection, recurrent: Urine culture positive for Proteus mirabilis and GBS on 01/20. Patient completed course of antibiotics. Abdominal pelvis CT 03/06 shows decompressed bladder with circumferential bladder wall thickening and intraluminal air possibly indicating cystitis, but the patient had been afebrile with normal WBC count. Urine culture 05/31 with Serratia marcescens, Pseudomonas, and Enterococcus faecalis. Patient was started on antibiotics. Repeat urine culture on 06/04 only reveals contaminants. Urine culture 08/07 with Enterococcus faecalis and Pseudomonas Aeruginosa similar to previous culture on 05/31. Patient remains afebrile. CBC with normal white blood cell count. Continue to change Soto monthly. 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 Monitor and treat only if symptomatic. Mild obstructive uropathy: Resolved. Appreciate urology recommendations. Suprapubic catheter to be changed monthly; last changed 11/09/16. Abdominal pelvis CT 03/06/16 shows resolution of right sided hydronephrosis. Upper GI bleeding with recurrent rectal bleeding: Resolved. Hemoglobin stable. GI reevaluated patient on 05/04. Presumed hemorrhoids, s/p Anusol HC for total of 2 weeks. Continue PPI. Seborrheic dermatitis: Improved. S/p Ketoconazole 2% shampoo, hydrocortisone lotion, and hydrocortisone cream. Continue hydrocortisone cream 1% bid x total 2 weeks. Chalazion: Nodule R upper eyelid. No evidence of preseptal cellulitis. -Warm compresses were applied but it was greater than 2 weeks without significant improvement. -Ophthalmology was consulted and evaluated patient on 03/26. S/p warm compresses and Tobradex 4 times a day OD x 2 weeks. Patient was intermittently compliant with eyedrops. -No worsening. Follow-up outpatient. Hypotension: chronic Blood pressure labile. Continue Midodrine. Patient on max dose. Increase free water flushes as needed. Pre-renal azotemia: BUN elevated at 23 on 11/11/16. Continue free water flushes Monitor BMP periodically Stage I decubitus ulcer, sacral skin tear: Continue wound care. Frequent turning of patient. Candidal infection: buttocks affected with satellite lesions to the perineum. -S/p Nystatin and clotrimazole Weakness: Continue physical therapy Nursing staff to get patient up out of bed at least 3 times daily Palliative care evaluation According to palliative care notes family wishes aggressive management, they are expecting him to improve, go to a rehabilitation facility and then improve enough to go home. They are declining hospice. DVT prophylaxis: SCDs. Avoid chemical prophylaxis secondary to GI bleed. Discharge Planning 11/08/16: Son will still not assist with placement. statement clerks manager is trying to get DCF to assist with possible court guardianship. 11/15/16: CM requested [facility] to evaluate for longterm placement. 11/21/16: [facility] reevaluating patient for placement. Madeline Ortez Dec 02, 2016 10:43 DVT prophylaxis: SCDs. Avoid chemical prophylaxis secondary to GI bleed. Discharge Planning 11/08/16: Son will still not assist with placement. statement clerks manager is trying to get DCF to assist with possible court guardianship. 11/15/16: CM requested [facility] to evaluate for technician terminal and repeater placement. 11/21/16: [facility] reevaluating patient for placement. Madeline Ortez Dec 02, 2016 10:43
[2016-12-02 20:00] VITALS: BP 107/67; PULSE 65; RESP 16; TEMP 98.5; O2SAT 96
[2016-12-02] MEDS: MIRTAZAPINE 15 MG TAB PEG SCH (20:24)
[2016-12-03] MEDS: MIDODRINE 5 MG TAB PO SCH ×3 (06:15→15:16)
[2016-12-03 08:00] VITALS: BP 141/86; PULSE 65; RESP 18; TEMP 96.9; O2SAT 97
[2016-12-03] MEDS: FREE WATER G-TUBE SCH (08:27)
[2016-12-03] MEDS: LANSOPRAZOLE SOLUTAB 30 MG TAB PEG SCH (08:28)
[2016-12-03] MEDS: ALLOPURINOL 100 MG TAB PEG SCH (08:28)
--- NOTE | 2016-12-03 10:56 | HHI.PR ---
Subjective Remarks Patient seen and examined today for follow-up on dementia, generalized weakness. Patient denies any new complaints. Patient with a good sensing humor this morning. Objective Vitals Vital Signs Date Time Temp Pulse Resp B/P Pulse Ox O2 Delivery O2 Flow Rate FiO2 12/03/16 08:00 96.9 65 18 141/86 97 12/02/16 20:00 98.5 65 16 107/67 96 I/O 12/02/16 12/02/16 12/02/16 12/03/16 12/03/16 12/03/16 07:00 15:00 23:00 07:00 15:00 23:00 Intake Total 390 ml 150 ml Output Total 1900 ml 550 ml Balance -1900 ml -160 ml 150 ml Tube Feeding 240 ml Tube Irrigant 150 ml 150 ml Output Urine Total 1900 ml 550 ml # Bowel Movements 6 1 Objective Remarks GENERAL: Well-developed, well-nourished, in no acute distress. HEENT: Head is normocephalic without any lesions or masses noted. Facial features are symmetric. Eyes: Extraocular muscles are intact. Conjunctivae were clear. NECK: Trachea midline no deviation. CARDIAC: Regular rhythm, regular rate. S1/S2 are heard. No murmurs gallops or rubs. LUNGS: Clear to auscultation bilaterally. No wheeze, rhonchi or rales. No use of accessory muscles on inspiration or expiration. ABDOMEN: Soft, nontender. Nondistended. Bowel sounds heard in all 4 quadrants. No organomegaly or masses. Negative rebound, negative guarding, suprapubic catheter in place, PEG tube in place with no signs of infection EXTREMITIES: No edema, pulses are equal bilaterally. No cyanosis or clubbing NEUROLOGY: Mood and affect appear appropriate. Cranial nerves II through XII grossly intact. Moving all extremities Procedures None Urinary Catheter: Yes (suprapubic catheter) Assessment to: Continue Date of Insertion: Nov 08, 2016 Vascular Central Line Catheter: No A/P Assessment and Plan Weakness: Continue physical therapy Nursing staff to get patient up out of bed at least 3 times daily Dementia with inappropriate behavior, mood disorder improved Patient has been hospitalized for similar events in 2015 Consulted psychiatry for further evaluation, who indicated that this is a frontal lobe dementia Risperdal discontinued at family's request Continue Remeron Parkinson's disease: Patient has dementia and resting tremor. Chronic, stable. GI bleed with presenting of Upper GI bleed, patient with intermittent rectal bleeding: Resolved Hemoglobin continues to remain stable GI was following and reevaluated on 05/04/16 Presumed hemorrhoids, status post Anusol HC for 2 weeks Continue PPI. Protein calorie malnutrition: Improving Consulted dietitian who indicated that patient may be converted to bolus feeding Jevity 1.5, 1.5, 360ml(1.5 cans)@ 0800, 1100, 1400 and 240ml(1-can)@ 1700 and 2000 Prealbumin level 25 Ensure Enlive 3 times a day since pudding 3 times a day PEG tube replaced 11/20/16 Hypotension with episodes of hypertension: Stable Continue monitor blood pressure Continue Midodrine. Mild obstructive uropathy: Resolved. With recurrent urinary tract infections. Treat only if symptomatic Suprapubic catheter in place, changed monthly, last changed 11/08/[address] 03/06/16 shows resolution of right sided hydronephrosis. Seborrhea dermatitis, recurrent Hydrocortisone cream for 2 weeks, restarted Counseled nursing staff on proper hygiene to avoid recurrence Palliative care evaluation According to palliative care notes. Family wishes aggressive management, they are expecting him to improve, go to a rehabilitation facility and then improve enough to go home. They are deferring hospice. DVT prophylaxis: SCDs. Avoid chemical prophylaxis secondary to GI bleed. Records reviewed. No change in treatment plan at this time. Discharge Planning Discharge planning per case management. Facilities still evaluating patient for placement Jaguar Walker Dec 03, 2016 10:56
[2016-12-03 20:00] VITALS: BP 114/69; PULSE 85; RESP 20; TEMP 98.4; O2SAT 98
[2016-12-03] MEDS: MIRTAZAPINE 15 MG TAB PEG SCH (21:00)
[2016-12-04] MEDS: MIDODRINE 5 MG TAB PO SCH ×3 (06:17→17:44)
[2016-12-04] MEDS: FREE WATER G-TUBE SCH (07:45)
[2016-12-04] MEDS: LANSOPRAZOLE SOLUTAB 30 MG TAB PEG SCH (07:45)
[2016-12-04] MEDS: ALLOPURINOL 100 MG TAB PEG SCH (07:45)
[2016-12-04 10:26] VITALS: BP 115/77; PULSE 78; RESP 15; TEMP 96.4; O2SAT 94
--- NOTE | 2016-12-04 10:50 | HHI.PR ---
Subjective Remarks Patient seen and examined follow-up on generalized weakness, dementia. Patient is doing well today. Denies any new complaints. No change in clinical status. Objective Vitals Vital Signs Date Time Temp Pulse Resp B/P Pulse Ox O2 Delivery O2 Flow Rate FiO2 12/04/16 10:26 96.4 78 15 115/77 94 12/03/16 20:00 98.4 85 20 114/69 98 I/O 12/03/16 12/03/16 12/03/16 12/04/16 12/04/16 12/04/16 07:00 15:00 23:00 07:00 15:00 23:00 Intake Total 150 ml 2120 ml 0 ml 0 ml Output Total 350 ml 250 ml 875 ml Balance 150 ml 1770 ml -250 ml -875 ml Intake Oral 0 ml 0 ml Tube Feeding 1320 ml Tube Irrigant 150 ml Other 800 ml Output Urine Total 350 ml 250 ml 875 ml # Bowel Movements 1 0 1 Objective Remarks GENERAL: Well-developed, well-nourished, in no acute distress. HEENT: Head is normocephalic without any lesions or masses noted. Facial features are symmetric. Eyes: Extraocular muscles are intact. Conjunctivae were clear. NECK: Trachea midline no deviation. CARDIAC: Regular rhythm, regular rate. S1/S2 are heard. No murmurs gallops or rubs. LUNGS: Clear to auscultation bilaterally. No wheeze, rhonchi or rales. No use of accessory muscles on inspiration or expiration. ABDOMEN: Soft, nontender. Nondistended. Bowel sounds heard in all 4 quadrants. No organomegaly or masses. Negative rebound, negative guarding, suprapubic catheter in place, PEG tube in place with no signs of infection EXTREMITIES: No edema, pulses are equal bilaterally. No cyanosis or clubbing NEUROLOGY: Mood and affect appear appropriate. Cranial nerves II through XII grossly intact. Moving all extremities Procedures None Urinary Catheter: Yes (suprapubic catheter) Assessment to: Continue Soto insert reason: Obstruction/Retention Date of Insertion: Nov 08, 2016 A/P Assessment and Plan Weakness: Continue physical therapy Nursing staff to get patient up out of bed at least 3 times daily Dementia with inappropriate behavior, mood disorder improved Patient has been hospitalized for similar events in 2014 Consulted psychiatry for further evaluation, who indicated that this is a frontal lobe dementia Risperdal discontinued at family's request Continue Remeron Parkinson's disease: Patient has dementia and resting tremor. Chronic, stable. GI bleed with presenting of Upper GI bleed, patient with intermittent rectal bleeding: Resolved Hemoglobin continues to remain stable GI was following and reevaluated on 05/04/16 Presumed hemorrhoids, status post Anusol HC for 2 weeks Continue PPI. Protein calorie malnutrition: Improving Consulted dietitian who indicated that patient may be converted to bolus feeding Jevity 1.5, 1.5, 360ml(1.5 cans)@ 0800, 1100, 1400 and 240ml(1-can)@ 1700 and 2000 Prealbumin level 25 Ensure Enlive 3 times a day since pudding 3 times a day PEG tube replaced 11/20/16 Hypotension with episodes of hypertension: Stable Continue monitor blood pressure Continue Midodrine. Mild obstructive uropathy: Resolved. With recurrent urinary tract infections. Treat only if symptomatic Suprapubic catheter in place, changed monthly, last changed 11/08/[address] 03/06/16 shows resolution of right sided hydronephrosis. Seborrhea dermatitis, recurrent Hydrocortisone cream for 2 weeks, restarted Counseled nursing staff on proper hygiene to avoid recurrence Palliative care evaluation According to palliative care notes. Family wishes aggressive management, they are expecting him to improve, go to a rehabilitation facility and then improve enough to go home. They are deferring hospice. DVT prophylaxis: SCDs. Avoid chemical prophylaxis secondary to GI bleed. Records reviewed. No change in treatment plan at this time. Discharge Planning Discharge planning per case management. Facilities still evaluating patient for placement Jaguar Walker Dec 04, 2016 10:50
[2016-12-04] MEDS: MIRTAZAPINE 15 MG TAB PEG SCH (22:17)
[2016-12-04 23:30] VITALS: BP 107/71; PULSE 72; RESP 16; TEMP 96.6; O2SAT 99
[2016-12-05] MEDS: MIDODRINE 5 MG TAB PO SCH ×3 (07:25→17:00)
[2016-12-05 08:00] VITALS: BP 118/79; PULSE 74; RESP 16; TEMP 97.3; O2SAT 96
[2016-12-05] MEDS: FREE WATER G-TUBE SCH (09:00)
[2016-12-05] MEDS: LANSOPRAZOLE SOLUTAB 30 MG TAB PEG SCH (09:04)
[2016-12-05] MEDS: ALLOPURINOL 100 MG TAB PEG SCH (09:04)
--- NOTE | 2016-12-05 12:57 | HHI.PR ---
Subjective Remarks Patient seen and examined today for follow-up on weakness and dementia. Patient has any new complaints. No change in clinical status. Objective Vitals Vital Signs Date Time Temp Pulse Resp B/P Pulse Ox O2 Delivery O2 Flow Rate FiO2 12/04/16 23:30 96.6 72 16 107/71 99 I/O 12/04/16 12/04/16 12/04/16 12/05/16 12/05/16 12/05/16 07:00 15:00 23:00 07:00 15:00 23:00 Intake Total 0 ml 590 ml Output Total 875 ml 1600 ml Balance -875 ml -1600 ml 590 ml Intake Oral 0 ml Tube Feeding 360 ml Tube Irrigant 30 ml Other 200 ml Output Urine Total 875 ml 1600 ml # Bowel Movements 1 Objective Remarks GENERAL: Well-developed, well-nourished, in no acute distress. HEENT: Head is normocephalic without any lesions or masses noted. Facial features are symmetric. Eyes: Extraocular muscles are intact. Conjunctivae were clear. NECK: Trachea midline no deviation. CARDIAC: Regular rhythm, regular rate. S1/S2 are heard. No murmurs gallops or rubs. LUNGS: Clear to auscultation bilaterally. No wheeze, rhonchi or rales. No use of accessory muscles on inspiration or expiration. ABDOMEN: Soft, nontender. Nondistended. Bowel sounds heard in all 4 quadrants. No organomegaly or masses. Negative rebound, negative guarding, suprapubic catheter in place, PEG tube in place with no signs of infection EXTREMITIES: No edema, pulses are equal bilaterally. No cyanosis or clubbing NEUROLOGY: Mood and affect appear appropriate. Cranial nerves II through XII grossly intact. Moving all extremities Procedures None Urinary Catheter: Yes (suprapubic catheter) Assessment to: Continue Soto insert reason: Obstruction/Retention Date of Insertion: Nov 08, 2016 Vascular Central Line Catheter: No A/P Assessment and Plan Weakness: Continue physical therapy Nursing staff to get patient up out of bed at least 3 times daily Dementia with inappropriate behavior, mood disorder improved Patient has been hospitalized for similar events in 2014 Consulted psychiatry for further evaluation, who indicated that this is a frontal lobe dementia Risperdal discontinued at family's request Continue Remeron Parkinson's disease: Patient has dementia and resting tremor. Chronic, stable. GI bleed with presenting of Upper GI bleed, patient with intermittent rectal bleeding: Resolved Hemoglobin continues to remain stable GI was following and reevaluated on 05/04/16 Presumed hemorrhoids, status post Anusol HC for 2 weeks Continue PPI. Protein calorie malnutrition: Improving Consulted dietitian who indicated that patient may be converted to bolus feeding Jevity 1.5, 1.5, 360ml(1.5 cans)@ 0800, 1100, 1400 and 240ml(1-can)@ 1700 and 2000 Prealbumin level 25 Ensure Enlive 3 times a day since pudding 3 times a day PEG tube replaced 11/20/16 Hypotension with episodes of hypertension: Stable Continue monitor blood pressure Continue Midodrine. Mild obstructive uropathy: Resolved. With recurrent urinary tract infections. Treat only if symptomatic Suprapubic catheter in place, changed monthly, last changed 11/08/[address] 03/06/16 shows resolution of right sided hydronephrosis. Seborrhea dermatitis, recurrent Hydrocortisone cream for 2 weeks, restarted Counseled nursing staff on proper hygiene to avoid recurrence Palliative care evaluation According to palliative care notes. Family wishes aggressive management, they are expecting him to improve, go to a rehabilitation facility and then improve enough to go home. They are deferring hospice. DVT prophylaxis: SCDs. Avoid chemical prophylaxis secondary to GI bleed. Records reviewed. No change in treatment plan at this time. Discharge Planning Discharge planning per case management. Facilities still evaluating patient for placement Jaguar Walker Dec 05, 2016 12:57
[2016-12-05 20:00] VITALS: BP 108/85; PULSE 70; RESP 16; TEMP 96.7; O2SAT 96
[2016-12-05] MEDS: MIRTAZAPINE 15 MG TAB PEG SCH (21:00)
[2016-12-06] MEDS: MIDODRINE 5 MG TAB PO SCH ×3 (06:24→17:04)
[2016-12-06 08:00] VITALS: BP 122/80; PULSE 80; RESP 18; TEMP 97.8; O2SAT 95
[2016-12-06] MEDS: FREE WATER G-TUBE SCH (09:00)
[2016-12-06] MEDS: ALLOPURINOL 100 MG TAB PEG SCH (09:30)
[2016-12-06] MEDS: LANSOPRAZOLE SOLUTAB 30 MG TAB PEG SCH (09:30)
--- NOTE | 2016-12-06 10:33 | HHI.PR ---
Subjective Remarks Patient seen and examined today for follow-up on dementia, weakness. No change in clinical status. Patient appears to be new spirits today. Denies any new complaints. Objective Vitals Vital Signs Date Time Temp Pulse Resp B/P Pulse Ox O2 Delivery O2 Flow Rate FiO2 12/06/16 08:00 97.8 80 18 122/80 95 12/05/16 20:00 96.7 70 16 108/85 96 I/O 12/05/16 12/05/16 12/05/16 12/06/16 12/06/16 12/06/16 07:00 15:00 23:00 07:00 15:00 23:00 Intake Total 1310 ml 320 ml 560 ml Output Total 500 ml 450 ml Balance 1310 ml -180 ml -450 ml 560 ml Intake Oral 80 ml Tube Feeding 1080 ml 240 ml 360 ml Tube Irrigant 30 ml Other 200 ml 200 ml Output Urine Total 500 ml 450 ml # Bowel Movements 0 1 Objective Remarks GENERAL: Well-developed, well-nourished, in no acute distress. HEENT: Head is normocephalic without any lesions or masses noted. Facial features are symmetric. Eyes: Extraocular muscles are intact. Conjunctivae were clear. NECK: Trachea midline no deviation. CARDIAC: Regular rhythm, regular rate. S1/S2 are heard. No murmurs gallops or rubs. LUNGS: Clear to auscultation bilaterally. No wheeze, rhonchi or rales. No use of accessory muscles on inspiration or expiration. ABDOMEN: Soft, nontender. Nondistended. Bowel sounds heard in all 4 quadrants. No organomegaly or masses. Negative rebound, negative guarding, suprapubic catheter in place, PEG tube in place with no signs of infection EXTREMITIES: No edema, pulses are equal bilaterally. No cyanosis or clubbing NEUROLOGY: Mood and affect appear appropriate. Cranial nerves II through XII grossly intact. Moving all extremities Procedures None Urinary Catheter: Yes (suprapubic catheter) Assessment to: Continue Soto insert reason: Obstruction/Retention Date of Insertion: Nov 08, 2016 Vascular Central Line Catheter: No A/P Assessment and Plan Weakness: Continue physical therapy Nursing staff to get patient up out of bed at least 3 times daily Dementia with inappropriate behavior, mood disorder improved Patient has been hospitalized for similar events in 2014 Consulted psychiatry for further evaluation, who indicated that this is a frontal lobe dementia Risperdal discontinued at family's request Continue Remeron Parkinson's disease: Patient has dementia and resting tremor. Chronic, stable. GI bleed with presenting of Upper GI bleed, patient with intermittent rectal bleeding: Resolved Hemoglobin continues to remain stable GI was following and reevaluated on 05/04/16 Presumed hemorrhoids, status post Anusol HC for 2 weeks Continue PPI. Protein calorie malnutrition: Improving Consulted dietitian who indicated that patient may be converted to bolus feeding Jevity 1.5, 1.5, 360ml(1.5 cans)@ 0800, 1100, 1400 and 240ml(1-can)@ 1700 and 2000 Prealbumin level 25 Ensure Enlive 3 times a day since pudding 3 times a day PEG tube replaced 11/20/16 Hypotension with episodes of hypertension: Stable Continue monitor blood pressure Continue Midodrine. Mild obstructive uropathy: Resolved. With recurrent urinary tract infections. Treat only if symptomatic Suprapubic catheter in place, changed monthly, last changed 11/08/[address] 03/06/16 shows resolution of right sided hydronephrosis. Seborrhea dermatitis, recurrent Hydrocortisone cream for 2 weeks, restarted Counseled nursing staff on proper hygiene to avoid recurrence Palliative care evaluation According to palliative care notes. Family wishes aggressive management, they are expecting him to improve, go to a rehabilitation facility and then improve enough to go home. They are deferring hospice. DVT prophylaxis: SCDs. Avoid chemical prophylaxis secondary to GI bleed. Records reviewed. No change in treatment plan at this time. Discharge Planning Discharge planning per case management. Facilities still evaluating patient for placement Jaguar Walker Dec 06, 2016 10:33
[2016-12-06 20:00] VITALS: BP 116/71; PULSE 70; RESP 16; TEMP 98.1; O2SAT 96
[2016-12-06] MEDS: MIRTAZAPINE 15 MG TAB PEG SCH (20:59)
[2016-12-07] MEDS: MIDODRINE 5 MG TAB PO SCH ×3 (06:01→17:16)
[2016-12-07] MEDS: FREE WATER G-TUBE SCH (08:03)
[2016-12-07] MEDS: LANSOPRAZOLE SOLUTAB 30 MG TAB PEG SCH (08:04)
[2016-12-07] MEDS: ALLOPURINOL 100 MG TAB PEG SCH (08:04)
--- NOTE | 2016-12-07 11:36 | HHI.PR ---
Subjective Remarks Patient seen and examined today. Patient denies any new complaints. No change in clinical status. Absolutely no change in treatment plan Objective Vitals Vital Signs Date Time Temp Pulse Resp B/P Pulse Ox O2 Delivery O2 Flow Rate FiO2 12/06/16 20:00 98.1 70 16 116/71 96 I/O 12/06/16 12/06/16 12/06/16 12/07/16 12/07/16 12/07/16 07:00 15:00 23:00 07:00 15:00 23:00 Intake Total 1280 ml 340 ml 300 ml Output Total 450 ml 1000 ml 550 ml Balance -450 ml 1280 ml -660 ml -250 ml Tube Feeding 1080 ml 240 ml 240 ml Other 200 ml 100 ml 60 ml Output Urine Total 450 ml 1000 ml 550 ml # Bowel Movements 1 2 2 Objective Remarks GENERAL: Well-developed, well-nourished, in no acute distress. HEENT: Head is normocephalic without any lesions or masses noted. Facial features are symmetric. Eyes: Extraocular muscles are intact. Conjunctivae were clear. NECK: Trachea midline no deviation. CARDIAC: Regular rhythm, regular rate. S1/S2 are heard. No murmurs gallops or rubs. LUNGS: Clear to auscultation bilaterally. No wheeze, rhonchi or rales. No use of accessory muscles on inspiration or expiration. ABDOMEN: Soft, nontender. Nondistended. Bowel sounds heard in all 4 quadrants. No organomegaly or masses. Negative rebound, negative guarding, suprapubic catheter in place, PEG tube in place with no signs of infection EXTREMITIES: No edema, pulses are equal bilaterally. No cyanosis or clubbing NEUROLOGY: Mood and affect appear appropriate. Cranial nerves II through XII grossly intact. Moving all extremities Procedures None Urinary Catheter: Yes (suprapubic catheter) Assessment to: Continue Date of Insertion: Nov 08, 2016 Vascular Central Line Catheter: No A/P Assessment and Plan Weakness: Continue physical therapy Nursing staff to get patient up out of bed at least 3 times daily Dementia with inappropriate behavior, mood disorder improved Patient has been hospitalized for similar events in 2014 Consulted psychiatry for further evaluation, who indicated that this is a frontal lobe dementia Risperdal discontinued at family's request Continue Remeron Parkinson's disease: Patient has dementia and resting tremor. Chronic, stable. GI bleed with presenting of Upper GI bleed, patient with intermittent rectal bleeding: Resolved Hemoglobin continues to remain stable GI was following and reevaluated on 05/04/16 Presumed hemorrhoids, status post Anusol HC for 2 weeks Continue PPI. Protein calorie malnutrition: Improving Consulted dietitian who indicated that patient may be converted to bolus feeding Jevity 1.5, 1.5, 360ml(1.5 cans)@ 0800, 1100, 1400 and 240ml(1-can)@ 1700 and 2000 Prealbumin level 25 Ensure Enlive 3 times a day since pudding 3 times a day PEG tube replaced 11/20/16 Hypotension with episodes of hypertension: Stable Continue monitor blood pressure Continue Midodrine. Mild obstructive uropathy: Resolved. With recurrent urinary tract infections. Treat only if symptomatic Suprapubic catheter in place, changed monthly, last changed 11/08/[address] 03/06/16 shows resolution of right sided hydronephrosis. Seborrhea dermatitis, recurrent Hydrocortisone cream for 2 weeks, restarted Counseled nursing staff on proper hygiene to avoid recurrence Palliative care evaluation According to palliative care notes. Family wishes aggressive management, they are expecting him to improve, go to a rehabilitation facility and then improve enough to go home. They are deferring hospice. DVT prophylaxis: SCDs. Avoid chemical prophylaxis secondary to GI bleed. Records reviewed. No change in treatment plan at this time. Discharge Planning Discharge planning per case management. Facilities still evaluating patient for placement Jaguar Walker Dec 07, 2016 11:36
[2016-12-07 11:40] VITALS: BP 101/68; PULSE 68; RESP 15; TEMP 97.8; O2SAT 96
[2016-12-07 20:58] VITALS: BP 99/70; PULSE 56; RESP 12; TEMP 97.4; O2SAT 96
[2016-12-07] MEDS: MIRTAZAPINE 15 MG TAB PEG SCH (21:00)
[2016-12-08] MEDS: MIDODRINE 5 MG TAB PO SCH ×3 (05:46→16:18)
[2016-12-08] MEDS: LANSOPRAZOLE SOLUTAB 30 MG TAB PEG SCH (08:22)
[2016-12-08] MEDS: ALLOPURINOL 100 MG TAB PEG SCH (08:22)
[2016-12-08] MEDS: FREE WATER G-TUBE SCH (08:22)
--- NOTE | 2016-12-08 10:01 | HHI.PR ---
Subjective Remarks Patient seen and examined today for follow-up on dementia, weakness. Patient denies any new complaints. No change in clinical status. Plan change Soto today. Objective Vitals Vital Signs Date Time Temp Pulse Resp B/P Pulse Ox O2 Delivery O2 Flow Rate FiO2 12/07/16 20:58 97.4 56 12 99/70 96 12/07/16 11:40 97.8 68 15 101/68 96 I/O 12/07/16 12/07/16 12/07/16 12/08/16 12/08/16 12/08/16 06:59 14:59 22:59 06:59 14:59 22:59 Intake Total 300 ml 2120 ml Output Total 550 ml 1000 ml 300 ml Balance -250 ml 1120 ml -300 ml Tube Feeding 240 ml 1320 ml Other 60 ml 800 ml Output Urine Total 550 ml 1000 ml 300 ml # Bowel Movements 2 1 Objective Remarks GENERAL: Well-developed, well-nourished, in no acute distress. HEENT: Head is normocephalic without any lesions or masses noted. Facial features are symmetric. Eyes: Extraocular muscles are intact. Conjunctivae were clear. NECK: Trachea midline no deviation. CARDIAC: Regular rhythm, regular rate. S1/S2 are heard. No murmurs gallops or rubs. LUNGS: Clear to auscultation bilaterally. No wheeze, rhonchi or rales. No use of accessory muscles on inspiration or expiration. ABDOMEN: Soft, nontender. Nondistended. Bowel sounds heard in all 4 quadrants. No organomegaly or masses. Negative rebound, negative guarding, suprapubic catheter in place, PEG tube in place with no signs of infection EXTREMITIES: No edema, pulses are equal bilaterally. No cyanosis or clubbing NEUROLOGY: Mood and affect appear appropriate. Cranial nerves II through XII grossly intact. Moving all extremities Procedures None Urinary Catheter: Yes (suprapubic catheter) Assessment to: Continue Soto insert reason: Obstruction/Retention Date of Insertion: Nov 08, 2016 Date of Removal: Dec 08, 2016 Vascular Central Line Catheter: No A/P Assessment and Plan Weakness: Continue physical therapy Nursing staff to get patient up out of bed at least 3 times daily Dementia with inappropriate behavior, mood disorder improved Patient has been hospitalized for similar events in 2015 Consulted psychiatry for further evaluation, who indicated that this is a frontal lobe dementia Risperdal discontinued at family's request Continue Remeron Parkinson's disease: Patient has dementia and resting tremor. Chronic, stable. GI bleed with presenting of Upper GI bleed, patient with intermittent rectal bleeding: Resolved Hemoglobin continues to remain stable GI was following and reevaluated on 05/04/16 Presumed hemorrhoids, status post Anusol HC for 2 weeks Continue PPI. Protein calorie malnutrition: Improving Consulted dietitian who indicated that patient may be converted to bolus feeding Jevity 1.5, 1.5, 360ml(1.5 cans)@ 0800, 1100, 1400 and 240ml(1-can)@ 1700 and 2000 Prealbumin level 25 Ensure Enlive 3 times a day since pudding 3 times a day PEG tube replaced 11/20/16 Hypotension with episodes of hypertension: Stable Continue monitor blood pressure Continue Midodrine. Mild obstructive uropathy: Resolved. With recurrent urinary tract infections. Treat only if symptomatic Suprapubic catheter in place, changed monthly, last changed 12/08/[address] 03/06/16 shows resolution of right sided hydronephrosis. Seborrhea dermatitis, recurrent Hydrocortisone cream for 2 weeks, restarted Counseled nursing staff on proper hygiene to avoid recurrence Palliative care evaluation According to palliative care notes. Family wishes aggressive management, they are expecting him to improve, go to a rehabilitation facility and then improve enough to go home. They are deferring hospice. DVT prophylaxis: SCDs. Avoid chemical prophylaxis secondary to GI bleed. Discharge Planning Discharge planning per case management. Facilities still evaluating patient for placement Jaguar Walker Dec 08, 2016 10:01
[2016-12-08 10:06] VITALS: BP 147/82; PULSE 70; RESP 15; TEMP 98.1; O2SAT 96
[2016-12-08 19:01] VITALS: BP 109/75; PULSE 85; RESP 15; TEMP 97.5; O2SAT 93
[2016-12-08 20:00] VITALS: BP 109/75; PULSE 85; RESP 15; TEMP 97.5; O2SAT 93
[2016-12-08] MEDS: MIRTAZAPINE 15 MG TAB PEG SCH (20:25)
[2016-12-09] MEDS: MIDODRINE 5 MG TAB PO SCH ×3 (05:39→17:36)
[2016-12-09] MEDS: LANSOPRAZOLE SOLUTAB 30 MG TAB PEG SCH (07:08)
[2016-12-09] MEDS: ALLOPURINOL 100 MG TAB PEG SCH (07:08)
[2016-12-09] MEDS: FREE WATER G-TUBE SCH (07:09)
--- NOTE | 2016-12-09 07:37 | HHI.PR ---
Subjective Remarks Patient seen and examined today for follow-up on weakness and dementia. Patient is doing well. Denies any new complaints. No change in clinical status. Awaiting case management for discharge planning Objective Vitals Vital Signs Date Time Temp Pulse Resp B/P Pulse Ox O2 Delivery O2 Flow Rate FiO2 12/08/16 20:00 97.5 85 15 109/75 93 12/08/16 19:01 97.5 85 15 109/75 93 12/08/16 10:06 98.1 70 15 147/82 96 I/O 12/08/16 12/08/16 12/08/16 12/09/16 12/09/16 12/09/16 07:00 15:00 23:00 07:00 15:00 23:00 Intake Total 240 ml Output Total 300 ml 1150 ml Balance -300 ml -910 ml Tube Feeding 240 ml Output Urine Total 300 ml 1150 ml # Bowel Movements 1 1 1 Objective Remarks GENERAL: Well-developed, well-nourished, in no acute distress. HEENT: Head is normocephalic without any lesions or masses noted. Facial features are symmetric. Eyes: Extraocular muscles are intact. Conjunctivae were clear. NECK: Trachea midline no deviation. CARDIAC: Regular rhythm, regular rate. S1/S2 are heard. No murmurs gallops or rubs. LUNGS: Clear to auscultation bilaterally. No wheeze, rhonchi or rales. No use of accessory muscles on inspiration or expiration. ABDOMEN: Soft, nontender. Nondistended. Bowel sounds heard in all 4 quadrants. No organomegaly or masses. Negative rebound, negative guarding, suprapubic catheter in place, PEG tube in place with no signs of infection EXTREMITIES: No edema, pulses are equal bilaterally. No cyanosis or clubbing NEUROLOGY: Mood and affect appear appropriate. Cranial nerves II through XII grossly intact. Moving all extremities Procedures None Urinary Catheter: Yes (suprapubic catheter) Date of Insertion: Dec 08, 2016 Vascular Central Line Catheter: No A/P Assessment and Plan Weakness: Continue physical therapy Nursing staff to get patient up out of bed at least 3 times daily Dementia with inappropriate behavior, mood disorder improved Patient has been hospitalized for similar events in 2015 Consulted psychiatry for further evaluation, who indicated that this is a frontal lobe dementia Risperdal discontinued at family's request Continue Remeron Parkinson's disease: Patient has dementia and resting tremor. Chronic, stable. GI bleed with presenting of Upper GI bleed, patient with intermittent rectal bleeding: Resolved Hemoglobin continues to remain stable GI was following and reevaluated on 05/04/16 Presumed hemorrhoids, status post Anusol HC for 2 weeks Continue PPI. Protein calorie malnutrition: Improving Consulted dietitian who indicated that patient may be converted to bolus feeding Jevity 1.5, 1.5, 360ml(1.5 cans)@ 0800, 1100, 1400 and 240ml(1-can)@ 1700 and 2000 Prealbumin level 25 Ensure Enlive 3 times a day since pudding 3 times a day PEG tube replaced 11/20/16 Hypotension with episodes of hypertension: Stable Continue monitor blood pressure Continue Midodrine. Mild obstructive uropathy: Resolved. With recurrent urinary tract infections. Treat only if symptomatic Suprapubic catheter in place, changed monthly, last changed 12/08/[address] 03/06/16 shows resolution of right sided hydronephrosis. Seborrhea dermatitis, recurrent Hydrocortisone cream for 2 weeks, restarted Counseled nursing staff on proper hygiene to avoid recurrence Palliative care evaluation According to palliative care notes. Family wishes aggressive management, they are expecting him to improve, go to a rehabilitation facility and then improve enough to go home. They are deferring hospice. DVT prophylaxis: SCDs. Avoid chemical prophylaxis secondary to GI bleed. Discharge Planning Discharge planning per case management. Facilities still evaluating patient for placement Jaguar Walker Dec 09, 2016 07:37
[2016-12-09 08:39] VITALS: BP 107/63; PULSE 71; RESP 18; TEMP 98.3; O2SAT 95
[2016-12-09] MEDS: MIRTAZAPINE 15 MG TAB PEG SCH (19:51)
[2016-12-09 20:00] VITALS: BP 113/71; PULSE 69; RESP 17; TEMP 97.4; O2SAT 94
[2016-12-10] MEDS: MIDODRINE 5 MG TAB PO SCH ×3 (06:16→16:20)
[2016-12-10 08:00] VITALS: BP 124/78; PULSE 70; RESP 18; TEMP 98; O2SAT 96
[2016-12-10] MEDS: ALLOPURINOL 100 MG TAB PEG SCH (08:02)
[2016-12-10] MEDS: LANSOPRAZOLE SOLUTAB 30 MG TAB PEG SCH (08:03)
[2016-12-10] MEDS: FREE WATER G-TUBE SCH (08:03)
--- NOTE | 2016-12-10 11:01 | HHI.PR ---
Subjective Remarks Follow up for dementia. No acute issues. Objective Vitals Vital Signs Date Time Temp Pulse Resp B/P Pulse Ox O2 Delivery O2 Flow Rate FiO2 12/09/16 20:00 97.4 69 17 113/71 94 I/O 12/09/16 12/09/16 12/09/16 12/10/16 12/10/16 12/10/16 07:00 15:00 23:00 07:00 15:00 23:00 Intake Total 540 ml 200 ml Output Total 450 ml 400 ml Balance 90 ml -200 ml Tube Feeding 240 ml Tube Irrigant 300 ml 200 ml Output Urine Total 450 ml 400 ml # Bowel Movements 1 Objective Remarks GENERAL: Elderly male in no apparent distress sleeping when I enter the room. CARDIOVASCULAR: Regular rate and rhythm. RESPIRATORY: No accessory muscle use. CTAB. GASTROINTESTINAL: Abdomen soft, nontender, nondistended. NEURO: Does not speak aloud. Keeps eyes closed, but nods to answer questions. Procedures None Urinary Catheter: No Date of Insertion: Dec 08, 2016 Vascular Central Line Catheter: No A/P Assessment and Plan Dementia with inappropriate behavior, mood disorder improved Patient had inappropriate behavior which is resolved now. He has been very appropriate for a long time now. Patient has been hospitalized for similar events in 2015 Consulted psychiatry for further evaluation, who indicated that this is a frontal lobe dementia Risperdal 0.25 mg during the day, Risperdal 0.5 mg at night. Risperdal was discontinued per POA request. [facility] Psychiatry was reconsulted and is ok with discontinuation of Risperdal. Protein calorie malnutrition: Improving Jevity 1.5 w/ bolus 1.5 cans (360ml) @ 0800, 1100 and 1400 and 1 can (240ml) @ 1700 and 2000. Free Water Flush 100ml before and after each bolus feeding. Steam Train Driver following. Ensure Enlive tid and chocolate pudding tid. Patient desired to eat and speech therapy advised puree diet, thin liquids, but patient has not been eating. Steam Train Driver suggested considering appetite stimulant. This was discussed with attending, but we do not believe this would be beneficial for patient and would add unnecessary risk to the patient. Will continue with tube feeds only. Hematuria: Resolved. -Patient is not on anticoagulation. -Hemoglobin normal. -Creatinine is normal. -UA 4/5 with innumerable RBCs, but urine sample not grossly bloody. Urinary tract infection, recurrent: Urine culture positive for Proteus mirabilis and GBS on 01/20. Patient completed course of antibiotics. Abdominal pelvis CT 03/06 shows decompressed bladder with circumferential bladder wall thickening and intraluminal air possibly indicating cystitis, but the patient had been afebrile with normal WBC count. Urine culture 05/31 with Serratia marcescens, Pseudomonas, and Enterococcus faecalis. Patient was started on antibiotics. Repeat urine culture on 06/04 only reveals contaminants. Urine culture /5 with Enterococcus faecalis and Pseudomonas Aeruginosa similar to previous culture on 05/31. Patient remains afebrile. CBC with normal white blood cell count. Continue to change Soto monthly. 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 Monitor and treat only if symptomatic. Mild obstructive uropathy: Resolved. Appreciate urology recommendations. Suprapubic catheter to be changed monthly; last changed 12/08/16. Abdominal pelvis CT 03/06/16 shows resolution of right sided hydronephrosis. Upper GI bleeding with recurrent rectal bleeding: Resolved. Hemoglobin stable. GI reevaluated patient on 05/04. Presumed hemorrhoids, s/p Anusol HC for total of 2 weeks. Continue PPI. Seborrheic dermatitis: Improved. S/p Ketoconazole 2% shampoo, hydrocortisone lotion, and multiple courses of hydrocortisone cream. Chalazion: Nodule R upper eyelid. No evidence of preseptal cellulitis. -Warm compresses were applied but it was greater than 2 weeks without significant improvement. -Ophthalmology was consulted and evaluated patient on 03/26. S/p warm compresses and Tobradex 4 times a day OD x 2 weeks. Patient was intermittently compliant with eyedrops. -No worsening. Follow-up outpatient. Hypotension: chronic Blood pressure labile. Continue Midodrine. Patient on max dose. Increase free water flushes as needed. Pre-renal azotemia: BUN elevated at 23 on 11/11/16. Continue free water flushes Monitor BMP periodically Stage I decubitus ulcer, sacral skin tear: Continue wound care. Frequent turning of patient. Candidal infection: buttocks affected with satellite lesions to the perineum. -S/p Nystatin and clotrimazole Weakness: Continue physical therapy Nursing staff to get patient up out of bed at least 3 times daily Palliative care evaluation According to palliative care notes family wishes aggressive management, they are expecting him to improve, go to a rehabilitation facility and then improve enough to go home. They are declining hospice. DVT prophylaxis: SCDs. Avoid chemical prophylaxis secondary to GI bleed. Discharge Planning 12/04/16: Per block and case maker, son will be able to be of more assistance by the end of the week and will assist with placement. [facility] is [facility] if son assists with this. Madeline Ortez Dec 10, 2016 11:01 Discharge Planning 11/08/16: Son will still not assist with placement. general production manager is trying to get DCF to assist with possible court guardianship. 11/15/16: requested [facility] to evaluate for middle or intermediate school principal placement. 11/21/16: [facility] reevaluating patient for placement. Madeline Ortez Dec 10, 2016 11:01
[2016-12-10 20:00] VITALS: BP 106/70; PULSE 64; RESP 17; TEMP 96.8; O2SAT 96
[2016-12-10] MEDS: MIRTAZAPINE 15 MG TAB PEG SCH (20:43)
[2016-12-11] MEDS: MIDODRINE 5 MG TAB PO SCH ×3 (05:33→17:06)
[2016-12-11 08:00] VITALS: BP 133/75; PULSE 63; RESP 18; TEMP 97.6; O2SAT 99
[2016-12-11] MEDS: ALLOPURINOL 100 MG TAB PEG SCH (08:11)
[2016-12-11] MEDS: FREE WATER G-TUBE SCH (08:11)
[2016-12-11] MEDS: LANSOPRAZOLE SOLUTAB 30 MG TAB PEG SCH (08:11)
--- NOTE | 2016-12-11 11:55 | HHI.PR ---
Subjective Remarks Follow-up for dementia. No acute complaints. Objective Vitals Vital Signs Date Time Temp Pulse Resp B/P Pulse Ox O2 Delivery O2 Flow Rate FiO2 12/10/16 20:00 96.8 64 17 106/70 96 I/O 12/10/16 12/10/16 12/10/16 12/11/16 12/11/16 12/11/16 07:00 15:00 23:00 07:00 15:00 23:00 Intake Total 200 ml 0 ml 390 ml Output Total 400 ml 450 ml 250 ml Balance -200 ml -450 ml 140 ml Intake Oral 0 ml 0 ml IV Total 0 ml Tube Irrigant 200 ml 240 ml Other 150 ml Output Urine Total 400 ml 450 ml 250 ml Stool Total 0 ml # Bowel Movements 1 2 Objective Remarks GENERAL: Elderly male in no apparent distress. SKIN: Erythematous face with mild flaking skin to L neck. CARDIOVASCULAR: Regular rate and rhythm. RESPIRATORY: No accessory muscle use. CTAB. GASTROINTESTINAL: Abdomen soft, nontender, nondistended. NEURO: Does not speak aloud, but nods to answer questions. Procedures None Urinary Catheter: No Date of Insertion: Dec 08, 2016 Vascular Central Line Catheter: No A/P Assessment and Plan Dementia with inappropriate behavior, mood disorder improved Patient had inappropriate behavior which is resolved now. He has been very appropriate for a long time now. Patient has been hospitalized for similar events in 2015 Consulted psychiatry for further evaluation, who indicated that this is a frontal lobe dementia Risperdal 0.25 mg during the day, Risperdal 0.5 mg at night. Risperdal was discontinued per POA request. [facility] Psychiatry was reconsulted and is ok with discontinuation of Risperdal. Protein calorie malnutrition: Improving Jevity 1.5 w/ bolus 1.5 cans (360ml) @ 0800, 1100 and 1400 and 1 can (240ml) @ 1700 and 2000. Free Water Flush 100ml before and after each bolus feeding. Environmental Planning Engineer following. Ensure Enlive tid and chocolate pudding tid. Patient desired to eat and speech therapy advised puree diet, thin liquids, but patient has not been eating. Environmental Planning Engineer suggested considering appetite stimulant. This was discussed with attending, but we do not believe this would be beneficial for patient and would add unnecessary risk to the patient. Will continue with tube feeds only. Hematuria: Resolved. -Patient is not on anticoagulation. -Hemoglobin normal. -Creatinine is normal. -UA 4/5 with innumerable RBCs, but urine sample not grossly bloody. Urinary tract infection, recurrent: Urine culture positive for Proteus mirabilis and GBS on 01/20. Patient completed course of antibiotics. Abdominal pelvis CT 03/06 shows decompressed bladder with circumferential bladder wall thickening and intraluminal air possibly indicating cystitis, but the patient had been afebrile with normal WBC count. Urine culture 05/31 with Serratia marcescens, Pseudomonas, and Enterococcus faecalis. Patient was started on antibiotics. Repeat urine culture on 06/04 only reveals contaminants. Urine culture /5 with Enterococcus faecalis and Pseudomonas Aeruginosa similar to previous culture on 05/31. Patient remains afebrile. CBC with normal white blood cell count. Continue to change Soto monthly. 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 Monitor and treat only if symptomatic. Mild obstructive uropathy: Resolved. Appreciate urology recommendations. Suprapubic catheter to be changed monthly; last changed 12/08/16. Abdominal pelvis CT 03/06/16 shows resolution of right sided hydronephrosis. Upper GI bleeding with recurrent rectal bleeding: Resolved. Hemoglobin stable. GI reevaluated patient on 05/04. Presumed hemorrhoids, s/p Anusol HC for total of 2 weeks. Continue PPI. Seborrheic dermatitis: Improved. S/p Ketoconazole 2% shampoo, hydrocortisone lotion, and multiple courses of hydrocortisone cream. Chalazion: Nodule R upper eyelid. No evidence of preseptal cellulitis. -Warm compresses were applied but it was greater than 2 weeks without significant improvement. -Ophthalmology was consulted and evaluated patient on 03/26. S/p Tobradex 4 times a day OD x 2 weeks. Patient was intermittently compliant with eyedrops. -No worsening. Follow-up outpatient. Hypotension: chronic Blood pressure labile. Continue Midodrine. Patient on max dose. Increase free water flushes as needed. Pre-renal azotemia: Continue free water flushes Monitor BMP periodically Stage I decubitus ulcer, sacral skin tear: Continue wound care. Frequent turning of patient. Candidal infection: buttocks affected with satellite lesions to the perineum. -S/p Nystatin and clotrimazole Weakness: Continue physical therapy Nursing staff to get patient up out of bed at least 3 times daily Palliative care evaluation According to palliative care notes family wishes aggressive management, they are expecting him to improve, go to a rehabilitation facility and then improve enough to go home. They are declining hospice. DVT prophylaxis: SCDs. Avoid chemical prophylaxis secondary to GI bleed. Discharge Planning 12/04/16: Per manager rn case, son will be able to be of more assistance by the end of the week and will assist with placement. [facility] is still willing to take patient if son assists with this. Madeline Ortez Dec 11, 2016 11:55 of the week and will assist with placement. [facility] is still willing to take patient if son assists with this. Madeline Ortez Dec 11, 2016 11:55
[2016-12-11 20:00] VITALS: BP 110/67; PULSE 62; RESP 22; TEMP 97.9; O2SAT 96
[2016-12-11] MEDS: MIRTAZAPINE 15 MG TAB PEG SCH (20:06)
[2016-12-12] MEDS: MIDODRINE 5 MG TAB PO SCH ×3 (06:06→17:24)
[2016-12-12 08:00] VITALS: BP 120/80; PULSE 61; RESP 19; TEMP 96.7; O2SAT 99
[2016-12-12] MEDS: ALLOPURINOL 100 MG TAB PEG SCH (09:27)
[2016-12-12] MEDS: LANSOPRAZOLE SOLUTAB 30 MG TAB PEG SCH (09:27)
[2016-12-12] MEDS: FREE WATER G-TUBE SCH (09:27)
--- NOTE | 2016-12-12 10:27 | HHI.PR ---
Subjective Remarks Follow up for dementia. When I asked the patient if he is okay he shakes his head "no" but then shrugs when I asked if there is anything in particular that' s wrong. Objective Vitals Vital Signs Date Time Temp Pulse Resp B/P Pulse Ox O2 Delivery O2 Flow Rate FiO2 12/12/16 08:00 96.7 61 19 120/80 99 12/11/16 20:00 97.9 62 22 110/67 96 I/O 12/11/16 12/11/16 12/11/16 12/12/16 12/12/16 12/12/16 07:00 15:00 23:00 07:00 15:00 23:00 Intake Total 390 ml 2319 ml 300 ml Output Total 250 ml 700 ml 650 ml Balance 140 ml 1619 ml -350 ml Intake Oral 0 ml IV Total 0 ml Tube Feeding 1320 ml 300 ml Tube Irrigant 240 ml Other 150 ml 999 ml Output Urine Total 250 ml 700 ml 650 ml # Bowel Movements 2 1 1 Objective Remarks GENERAL: Elderly male in no apparent distress. CARDIOVASCULAR: Regular rate and rhythm. RESPIRATORY: No accessory muscle use. CTAB. GASTROINTESTINAL: Abdomen soft, nontender, nondistended. NEURO: Does not speak aloud, but nods to answer questions. Procedures None Date of Insertion: Dec 08, 2016 A/P Assessment and Plan Dementia with inappropriate behavior, mood disorder improved Patient had inappropriate behavior which is resolved now. He has been very appropriate for a long time now. Patient has been hospitalized for similar events in 2015 Consulted psychiatry for further evaluation, who indicated that this is a frontal lobe dementia Risperdal 0.25 mg during the day, Risperdal 0.5 mg at night. Risperdal was discontinued per POA request. [facility] Psychiatry was reconsulted and is ok with discontinuation of Risperdal. Protein calorie malnutrition: Improving Jevity 1.5 w/ bolus 1.5 cans (360ml) @ 0800, 1100 and 1400 and 1 can (240ml) @ 1700 and 2000. Free Water Flush 100ml before and after each bolus feeding. Hydrogen Plant Operations Manager following. Ensure Enlive tid and chocolate pudding tid. Patient desired to eat and speech therapy advised puree diet, thin liquids, but patient has not been eating. Hydrogen Plant Operations Manager suggested considering appetite stimulant. This was discussed with attending, but we do not believe this would be beneficial for patient and would add unnecessary risk to the patient. Will continue with tube feeds only. Routine monthly CBC, CMP, Mg had been ordered for this morning, but patient apparently refused. Nurse states she will obtain them later today. Hematuria: Resolved. -Patient is not on anticoagulation. -Hemoglobin normal. -Creatinine is normal. -UA 4/5 with innumerable RBCs, but urine sample not grossly bloody. Urinary tract infection, recurrent: Urine culture positive for Proteus mirabilis and GBS on 01/20. Patient completed course of antibiotics. Abdominal pelvis CT 03/06 shows decompressed bladder with circumferential bladder wall thickening and intraluminal air possibly indicating cystitis, but the patient had been afebrile with normal WBC count. Urine culture 05/31 with Serratia marcescens, Pseudomonas, and Enterococcus faecalis. Patient was started on antibiotics. Repeat urine culture on 06/04 only reveals contaminants. Urine culture /5 with Enterococcus faecalis and Pseudomonas Aeruginosa similar to previous culture on 05/31. Patient remains afebrile. CBC with normal white blood cell count. Continue to change Soto monthly. 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 Monitor and treat only if symptomatic. Mild obstructive uropathy: Resolved. Appreciate urology recommendations. Suprapubic catheter to be changed monthly; last changed 12/08/16. Abdominal pelvis CT 03/06/16 shows resolution of right sided hydronephrosis. Upper GI bleeding with recurrent rectal bleeding: Resolved. Hemoglobin stable. GI reevaluated patient on 05/04. Presumed hemorrhoids, s/p Anusol HC for total of 2 weeks. Continue PPI. Seborrheic dermatitis: Improved. S/p Ketoconazole 2% shampoo, hydrocortisone lotion, and multiple courses of hydrocortisone cream. Chalazion: Nodule R upper eyelid. No evidence of preseptal cellulitis. -Warm compresses were applied but it was greater than 2 weeks without significant improvement. -Ophthalmology was consulted and evaluated patient on 03/26. S/p Tobradex 4 times a day OD x 2 weeks. Patient was intermittently compliant with eyedrops. -No worsening. Follow-up outpatient. Hypotension: chronic Blood pressure labile. Continue Midodrine. Patient on max dose. Increase free water flushes as needed. Pre-renal azotemia: Continue free water flushes Monitor BMP periodically Stage I decubitus ulcer, sacral skin tear: Continue wound care. Frequent turning of patient. Candidal infection: buttocks affected with satellite lesions to the perineum. -S/p Nystatin and clotrimazole Weakness: Continue physical therapy Nursing staff to get patient up out of bed at least 3 times daily Palliative care evaluation According to palliative care notes family wishes aggressive management, they are expecting him to improve, go to a rehabilitation facility and then improve enough to go home. They are declining hospice. DVT prophylaxis: SCDs. Avoid chemical prophylaxis secondary to GI bleed. Discharge Planning 12/04/16: Per case making machine operator, son will be able to be of more assistance by the end of the week and will assist with placement. [facility] is still willing to take patient if son assists with this. Madeline Ortez Dec 12, 2016 10:27 Discharge Planning 12/04/16: Per case making machine operator, son will be able to be of more assistance by the end of the week and will assist with placement. [facility] is still willing to take patient if son assists with this. Madeline Ortez Dec 12, 2016 10:27
[2016-12-12 12:54] LABS: AUTOMATED NEUTROPHIL # 3.1 TH/MM3 (1.8-7.7); BASOPHIL # 0.1 TH/MM3 (0-0.2); EOSINOPHIL # 0.2 TH/MM3 (0-0.4); EOSINOPHIL % 2.5 % (0.0-4.0); HEMATOCRIT 47.7 % (39.0-51.0); HEMO FLAGS DIFF FINAL; LYMPH % 45.5 % (9.0-44.0); MEAN CELL VOLUME 88.2 FL (80.0-100.0); MEAN CORPUSCULAR HEMOGLOBIN 28.3 PG (27.0-34.0); PLATELET COUNT 176 TH/MM3 (150-450); RED CELL DISTRIBUTION WIDTH 15.2 % (11.6-17.2); WHITE BLOOD COUNT 6.7 TH/MM3 (4.0-11.0)
[2016-12-12 13:03] LABS: CHLORIDE 102 MEQ/L (98-107); POTASSIUM 3.7 MEQ/L (3.5-5.1); SODIUM (NA) 138 MEQ/L (136-145)
[2016-12-12 13:07] LABS: ANION GAP 5 MEQ/L (5-15); BICARBONATE 31.2 MEQ/L (21.0-32.0); BLOOD UREA NITROGEN 19 MG/DL (7-18); MAGNESIUM 2.3 MG/DL (1.5-2.5)
[2016-12-12 13:10] LABS: ALT (GPT) 19 U/L (12-78); AST (GOT) 35 U/L (15-37); GLOMERULAR FILTRATION RATE 93 ML/MIN (>89)
[2016-12-12 13:11] LABS: TOTAL BILIRUBIN ADULT 0.5 MG/DL (0.2-1.0)
[2016-12-12 13:13] LABS: ALKALINE PHOSPHATASE 121 U/L (45-117)
[2016-12-12 20:00] VITALS: BP 117/72; PULSE 73; RESP 20; TEMP 97.8; O2SAT 96
[2016-12-12] MEDS: MIRTAZAPINE 15 MG TAB PEG SCH (21:35)
[2016-12-13] MEDS: MIDODRINE 5 MG TAB PO SCH ×3 (06:27→17:25)
[2016-12-13 08:00] VITALS: BP 115/67; PULSE 68; RESP 18; TEMP 98.1; O2SAT 98
[2016-12-13] MEDS: LANSOPRAZOLE SOLUTAB 30 MG TAB PEG SCH (08:11)
[2016-12-13] MEDS: ALLOPURINOL 100 MG TAB PEG SCH (08:11)
[2016-12-13] MEDS: FREE WATER G-TUBE SCH (08:12)
--- NOTE | 2016-12-13 12:59 | HHI.PR ---
Subjective Remarks Follow-up for dementia. No acute complaints. Objective Vitals Vital Signs Date Time Temp Pulse Resp B/P Pulse Ox O2 Delivery O2 Flow Rate FiO2 12/13/16 08:00 98.1 68 18 115/67 98 12/12/16 20:00 97.8 73 20 117/72 96 I/O 12/12/16 12/12/16 12/12/16 12/13/16 12/13/16 12/13/16 07:00 15:00 23:00 07:00 15:00 23:00 Intake Total 300 ml 2120 ml 360 ml 660 ml Output Total 650 ml 350 ml 750 ml 1000 ml Balance -350 ml -350 ml 1370 ml -640 ml 660 ml IV Total 0 ml Tube Feeding 300 ml 1320 ml 360 ml Tube Irrigant 240 ml 100 ml Other 800 ml 120 ml 200 ml Output Urine Total 650 ml 350 ml 750 ml 1000 ml # Bowel Movements 1 1 1 1 Result Diagram: 12/12/16 1244 12/12/16 1244 Objective Remarks GENERAL: Elderly male in no apparent distress. SKIN: Face is red with flaking skin at the chin and neck. CARDIOVASCULAR: Regular rate and rhythm. RESPIRATORY: No accessory muscle use. CTAB. GASTROINTESTINAL: Abdomen soft, nontender, nondistended. NEURO: Does not speak aloud, but nods to answer questions. Procedures None Urinary Catheter: Yes Assessment to: Continue Soto insert reason: Obstruction/Retention Date of Insertion: Dec 08, 2016 Vascular Central Line Catheter: No A/P Assessment and Plan Dementia with inappropriate behavior, mood disorder improved Patient had inappropriate behavior which is resolved now. He has been very appropriate for a long time now. Patient has been hospitalized for similar events in 2015 Consulted psychiatry for further evaluation, who indicated that this is a frontal lobe dementia Risperdal 0.25 mg during the day, Risperdal 0.5 mg at night. Risperdal was discontinued per POA request. Continue [facility] Psychiatry was reconsulted and is ok with discontinuation of Risperdal. Protein calorie malnutrition: Improving Jevity 1.5 w/ bolus 1.5 cans (360ml) @ 0800, 1100 and 1400 and 1 can (240ml) @ 1700 and 2000. Free Water Flush 100ml before and after each bolus feeding. Warehouse Operations Associate following. Ensure Enlive tid and chocolate pudding tid. Patient desired to eat and speech therapy advised puree diet, thin liquids, but patient has not been eating. Warehouse Operations Associate suggested considering appetite stimulant. This was discussed with attending, but we do not believe this would be beneficial for patient and would add unnecessary risk to the patient. Will continue with tube feeds only. 12/13: CBC, CMP, Mg was obtained yesterday, reviewed today. CBC unremarkable. Alkaline phosphatase mildly elevated at 121 from prior. Hematuria: Resolved. -Patient is not on anticoagulation. -Hemoglobin normal. -Creatinine is normal. -UA 4/5 with innumerable RBCs, but urine sample not grossly bloody. Urinary tract infection, recurrent: Urine culture positive for Proteus mirabilis and GBS on 01/20. Patient completed course of antibiotics. Abdominal pelvis CT 03/06 shows decompressed bladder with circumferential bladder wall thickening and intraluminal air possibly indicating cystitis, but the patient had been afebrile with normal WBC count. Urine culture 05/31 with Serratia marcescens, Pseudomonas, and Enterococcus faecalis. Patient was started on antibiotics. Repeat urine culture on 06/04 only reveals contaminants. Urine culture 4/5 with Enterococcus faecalis and Pseudomonas Aeruginosa similar to previous culture on 05/31. Patient remains afebrile. CBC with normal white blood cell count. Continue to change Soto monthly. 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 Monitor and treat only if symptomatic. Mild obstructive uropathy: Resolved. Appreciate urology recommendations. Suprapubic catheter to be changed monthly; last changed 12/08/16. Abdominal pelvis CT 03/06/16 shows resolution of right sided hydronephrosis. Upper GI bleeding with recurrent rectal bleeding: Resolved. Hemoglobin stable. GI reevaluated patient on 05/04. Presumed hemorrhoids, s/p Anusol HC for total of 2 weeks. Continue PPI. Seborrheic dermatitis: Improved. S/p Ketoconazole 2% shampoo, hydrocortisone lotion, and multiple courses of hydrocortisone cream. Chalazion: Nodule R upper eyelid. No evidence of preseptal cellulitis. -Warm compresses were applied but it was greater than 2 weeks without significant improvement. -Ophthalmology was consulted and evaluated patient on 03/26. S/p Tobradex 4 times a day OD x 2 weeks. Patient was intermittently compliant with eyedrops. -No worsening. Follow-up outpatient. Hypotension: chronic Blood pressure labile. Continue Midodrine. Patient on max dose. Increase free water flushes as needed. Pre-renal azotemia: Improved Continue free water flushes 12/13: BUN improved 23-->19. Stage I decubitus ulcer, sacral skin tear: Continue wound care. Frequent turning of patient. Candidal infection: buttocks affected with satellite lesions to the perineum. -S/p Nystatin and clotrimazole Weakness: Continue physical therapy Nursing staff to get patient up out of bed at least 3 times daily Palliative care evaluation According to palliative care notes family wishes aggressive management, they are expecting him to improve, go to a rehabilitation facility and then improve enough to go home. They are declining hospice. DVT prophylaxis: SCDs. Avoid chemical prophylaxis secondary to GI bleed. Discharge Planning 12/04/16: Per shelter case manager, son will be able to be of more assistance by the end of the week and will assist with placement. [facility] is still willing to take patient if son assists with this. Madeline Ortez Dec 13, 2016 12:59 Madeline Ortez Dec 13, 2016 12:59
[2016-12-13 20:00] VITALS: BP 115/74; PULSE 74; RESP 20; TEMP 95.8; O2SAT 96
[2016-12-13] MEDS: MIRTAZAPINE 15 MG TAB PEG SCH (22:09)
[2016-12-14] MEDS: MIDODRINE 5 MG TAB PO SCH ×3 (06:41→17:08)
[2016-12-14 08:00] VITALS: BP 115/75; PULSE 67; RESP 20; TEMP 97.7; O2SAT 96
[2016-12-14] MEDS: ALLOPURINOL 100 MG TAB PEG SCH (08:12)
[2016-12-14] MEDS: LANSOPRAZOLE SOLUTAB 30 MG TAB PEG SCH (08:12)
[2016-12-14] MEDS: FREE WATER G-TUBE SCH (08:13)
--- NOTE | 2016-12-14 12:20 | HHI.PR ---
Subjective Remarks Follow up for dementia. No acute complaints. Objective Vitals Vital Signs Date Time Temp Pulse Resp B/P Pulse Ox O2 Delivery O2 Flow Rate FiO2 12/14/16 08:00 97.7 67 20 115/75 96 12/13/16 20:00 95.8 74 20 115/74 96 I/O 12/13/16 12/13/16 12/13/16 12/14/16 12/14/16 12/14/16 06:59 14:59 22:59 06:59 14:59 22:59 Intake Total 360 ml 1780 ml 440 ml 0 ml 760 ml Output Total 1000 ml 450 ml 850 ml Balance -640 ml 1330 ml 440 ml -850 ml 760 ml Intake Oral 0 ml 0 ml IV Total 0 ml Tube Feeding 1080 ml 240 ml 360 ml Tube Irrigant 240 ml 500 ml 200 ml 200 ml Other 120 ml 200 ml 200 ml Output Urine Total 1000 ml 450 ml 850 ml # Bowel Movements 1 1 Result Diagram: 12/12/16 1244 12/12/16 1244 Objective Remarks GENERAL: Elderly male in no apparent distress. SKIN: Face is less red. Flaking skin around the mouth, chin, and neck. CARDIOVASCULAR: Regular rate and rhythm. RESPIRATORY: No accessory muscle use. CTAB. GASTROINTESTINAL: Abdomen soft, nontender, nondistended. NEURO: Does not speak aloud, but nods to answer questions. Procedures None Urinary Catheter: Yes Assessment to: Continue Soto insert reason: Obstruction/Retention Date of Insertion: Dec 08, 2016 Vascular Central Line Catheter: No A/P Assessment and Plan Dementia with inappropriate behavior, mood disorder improved Patient had inappropriate behavior which is resolved now. He has been very appropriate for a long time now. Patient has been hospitalized for similar events in 2015 Consulted psychiatry for further evaluation, who indicated that this is a frontal lobe dementia Risperdal 0.25 mg during the day, Risperdal 0.5 mg at night. Risperdal was discontinued per POA request. Continue [facility] Psychiatry was reconsulted and is ok with discontinuation of Risperdal. Protein calorie malnutrition: Improving Jevity 1.5 w/ bolus 1.5 cans (360ml) @ 0800, 1100 and 1400 and 1 can (240ml) @ 1700 and 2000. Free Water Flush 100ml before and after each bolus feeding. Machinist Brake following. Ensure Enlive tid and chocolate pudding tid. Patient desired to eat and speech therapy advised puree diet, thin liquids, but patient has not been eating. Machinist Brake suggested considering appetite stimulant. This was discussed with attending, but we do not believe this would be beneficial for patient and would add unnecessary risk to the patient. Will continue with tube feeds only. Hematuria: Resolved. -Patient is not on anticoagulation. -Hemoglobin normal. -Creatinine is normal. -UA 4/5 with innumerable RBCs, but urine sample not grossly bloody. Urinary tract infection, recurrent: Urine culture positive for Proteus mirabilis and GBS on 01/20. Patient completed course of antibiotics. Abdominal pelvis CT 03/06 shows decompressed bladder with circumferential bladder wall thickening and intraluminal air possibly indicating cystitis, but the patient had been afebrile with normal WBC count. Urine culture 05/31 with Serratia marcescens, Pseudomonas, and Enterococcus faecalis. Patient was started on antibiotics. Repeat urine culture on 06/04 only reveals contaminants. Urine culture / with Enterococcus faecalis and Pseudomonas Aeruginosa similar to previous culture on 05/31. Patient remains afebrile. CBC with normal white blood cell count. Continue to change Soto monthly. 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 Monitor and treat only if symptomatic. Mild obstructive uropathy: Resolved. Appreciate urology recommendations. Suprapubic catheter to be changed monthly; last changed 12/08/16. Abdominal pelvis CT 03/06/16 shows resolution of right sided hydronephrosis. Upper GI bleeding with recurrent rectal bleeding: Resolved. Hemoglobin stable. GI reevaluated patient on 05/04. Presumed hemorrhoids, s/p Anusol HC for total of 2 weeks. Continue PPI. Seborrheic dermatitis: Improved. S/p Ketoconazole 2% shampoo, hydrocortisone lotion, and multiple courses of hydrocortisone cream. Chalazion: Nodule R upper eyelid. No evidence of preseptal cellulitis. -Warm compresses were applied but it was greater than 2 weeks without significant improvement. -Ophthalmology was consulted and evaluated patient on 03/26. S/p Tobradex 4 times a day OD x 2 weeks. Patient was intermittently compliant with eyedrops. -No worsening. Follow-up outpatient. Hypotension: chronic Blood pressure labile. Continue Midodrine. Patient on max dose. Increase free water flushes as needed. Pre-renal azotemia: Improved Continue free water flushes Stage I decubitus ulcer, sacral skin tear: Continue wound care. Frequent turning of patient. Candidal infection: buttocks affected with satellite lesions to the perineum. -S/p Nystatin and clotrimazole Weakness: Continue physical therapy Nursing staff to get patient up out of bed at least 3 times daily Palliative care evaluation According to palliative care notes family wishes aggressive management, they are expecting him to improve, go to a rehabilitation facility and then improve enough to go home. They are declining hospice. DVT prophylaxis: SCDs. Avoid chemical prophylaxis secondary to GI bleed. Discharge Planning 12/04/16: Per test case developer, son will be able to be of more assistance by the end of the week and will assist with placement. [facility] is still willing to take patient if son assists with this. Madeline Ortez Dec 14, 2016 12:19 of the week and will assist with placement. [facility] is still willing to take patient if son assists with this. Madeline Ortez Dec 14, 2016 12:19
[2016-12-14 20:00] VITALS: BP 108/73; PULSE 71; RESP 20; TEMP 98.2; O2SAT 95
[2016-12-14] MEDS: MIRTAZAPINE 15 MG TAB PEG SCH (21:53)
[2016-12-14 22:45] VITALS: BP 107/75; PULSE 104; RESP 18; TEMP 96.8; O2SAT 97
[2016-12-15] MEDS: MIDODRINE 5 MG TAB PO SCH ×3 (06:36→15:18)
[2016-12-15 08:00] VITALS: BP 113/70; PULSE 58; RESP 18; TEMP 96.6; O2SAT 97
[2016-12-15] MEDS: FREE WATER G-TUBE SCH (08:08)
[2016-12-15] MEDS: ALLOPURINOL 100 MG TAB PEG SCH (08:08)
[2016-12-15] MEDS: LANSOPRAZOLE SOLUTAB 30 MG TAB PEG SCH (08:09)
--- NOTE | 2016-12-15 10:18 | HHI.PR ---
Subjective Remarks Follow-up for dementia. No acute complaints. Objective Vitals Vital Signs Date Time Temp Pulse Resp B/P Pulse Ox O2 Delivery O2 Flow Rate FiO2 12/15/16 08:00 96.6 58 18 113/70 97 12/14/16 22:45 96.8 104 18 107/75 97 12/14/16 20:00 98.2 71 20 108/73 95 I/O 12/14/16 12/14/16 12/14/16 12/15/16 12/15/16 12/15/16 07:00 15:00 23:00 07:00 15:00 23:00 Intake Total 0 ml 1880 ml 440 ml 0 ml Output Total 850 ml 402 ml 600 ml Balance -850 ml 1880 ml 38 ml -600 ml Intake Oral 0 ml 0 ml Tube Feeding 1080 ml 240 ml Tube Irrigant 600 ml 200 ml Other 200 ml Output Urine Total 850 ml 400 ml 600 ml Stool Total 2 ml Result Diagram: 12/12/16 1244 12/12/16 1244 Objective Remarks GENERAL: Elderly male in no apparent distress. SKIN: Face is much less red. Flaking skin to the chin and neck. CARDIOVASCULAR: Regular rate and rhythm. RESPIRATORY: No accessory muscle use. CTAB. GASTROINTESTINAL: Abdomen soft, nontender, nondistended. NEURO: Does not speak aloud, but nods to answer questions. Procedures None Urinary Catheter: Yes Assessment to: Continue Soto insert reason: Obstruction/Retention Date of Insertion: Dec 08, 2016 Vascular Central Line Catheter: No A/P Assessment and Plan Dementia with inappropriate behavior, mood disorder improved Patient had inappropriate behavior which is resolved now. He has been very appropriate for a long time now. Patient has been hospitalized for similar events in 2015 Consulted psychiatry for further evaluation, who indicated that this is a frontal lobe dementia Risperdal 0.25 mg during the day, Risperdal 0.5 mg at night. Risperdal was discontinued per POA request. Continue [facility] Psychiatry was reconsulted and is ok with discontinuation of Risperdal. Protein calorie malnutrition: Improving Jevity 1.5 w/ bolus 1.5 cans (360ml) @ 0800, 1100 and 1400 and 1 can (240ml) @ 1700 and 2000. Free Water Flush 100ml before and after each bolus feeding. Electrical Continuity Inspector following. Ensure Enlive tid and chocolate pudding tid. Patient desired to eat and speech therapy advised puree diet, thin liquids, but patient has not been eating. Electrical Continuity Inspector suggested considering appetite stimulant. This was discussed with attending, but we do not believe this would be beneficial for patient and would add unnecessary risk to the patient. Will continue with tube feeds only. Hematuria: Resolved. -Patient is not on anticoagulation. -Hemoglobin normal. -Creatinine is normal. -UA 4/5 with innumerable RBCs, but urine sample not grossly bloody. Urinary tract infection, recurrent: Urine culture positive for Proteus mirabilis and GBS on 01/20. Patient completed course of antibiotics. Abdominal pelvis CT 03/06 shows decompressed bladder with circumferential bladder wall thickening and intraluminal air possibly indicating cystitis, but the patient had been afebrile with normal WBC count. Urine culture 05/31 with Serratia marcescens, Pseudomonas, and Enterococcus faecalis. Patient was started on antibiotics. Repeat urine culture on 06/04 only reveals contaminants. Urine culture /5 with Enterococcus faecalis and Pseudomonas Aeruginosa similar to previous culture on 05/31. Patient remains afebrile. CBC with normal white blood cell count. Continue to change Soto monthly. 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 Monitor and treat only if symptomatic. Mild obstructive uropathy: Resolved. Appreciate urology recommendations. Suprapubic catheter to be changed monthly; last changed 12/08/16. Abdominal pelvis CT 03/06/16 shows resolution of right sided hydronephrosis. Upper GI bleeding with recurrent rectal bleeding: Resolved. Hemoglobin stable. GI reevaluated patient on 05/04. Presumed hemorrhoids, s/p Anusol HC for total of 2 weeks. Continue PPI. Seborrheic dermatitis: Improved. S/p Ketoconazole 2% shampoo, hydrocortisone lotion, and multiple courses of hydrocortisone cream. Chalazion: Nodule R upper eyelid. No evidence of preseptal cellulitis. -Warm compresses were applied but it was greater than 2 weeks without significant improvement. -Ophthalmology was consulted and evaluated patient on 03/26. S/p Tobradex 4 times a day OD x 2 weeks. Patient was intermittently compliant with eyedrops. -No worsening. Follow-up outpatient. Hypotension: chronic Blood pressure labile. Continue Midodrine. Patient on max dose. Increase free water flushes as needed. Pre-renal azotemia: Improved Continue free water flushes Stage I decubitus ulcer, sacral skin tear: Continue wound care. Frequent turning of patient. Candidal infection: buttocks affected with satellite lesions to the perineum. -S/p Nystatin and clotrimazole Weakness: Continue physical therapy Nursing staff to get patient up out of bed at least 3 times daily Palliative care evaluation According to palliative care notes family wishes aggressive management, they are expecting him to improve, go to a rehabilitation facility and then improve enough to go home. They are declining hospice. DVT prophylaxis: SCDs. Avoid chemical prophylaxis secondary to GI bleed. Discharge Planning 12/04/16: Per nurse outreach case manager, son will be able to be of more assistance by the end of the week and will assist with placement. [facility] is still willing to take patient if son assists with this. Madeline Ortez Dec 15, 2016 10:18 DVT prophylaxis: SCDs. Avoid chemical prophylaxis secondary to GI bleed. Discharge Planning 12/04/16: Per nurse outreach case manager, son will be able to be of more assistance by the end of the week and will assist with placement. [facility] is still willing to take patient if son assists with this. Madeline Ortez Dec 15, 2016 10:18
[2016-12-15 20:00] VITALS: BP 97/60; PULSE 65; RESP 20; TEMP 96.9; O2SAT 95
[2016-12-15] MEDS: MIRTAZAPINE 15 MG TAB PEG SCH (22:07)
[2016-12-16] MEDS: MIDODRINE 5 MG TAB PO SCH ×3 (05:52→17:36)
[2016-12-16 08:00] VITALS: BP 101/70; PULSE 64; RESP 17; TEMP 96.7; O2SAT 96
[2016-12-16] MEDS: FREE WATER G-TUBE SCH (08:24)
[2016-12-16] MEDS: LANSOPRAZOLE SOLUTAB 30 MG TAB PEG SCH (08:24)
[2016-12-16] MEDS: ALLOPURINOL 100 MG TAB PEG SCH (08:24)
--- NOTE | 2016-12-16 10:22 | HHI.PR ---
Subjective Remarks Follow-up for dementia. No acute complaints. Objective Vitals Vital Signs Date Time Temp Pulse Resp B/P Pulse Ox O2 Delivery O2 Flow Rate FiO2 12/16/16 08:00 96.7 64 17 101/70 96 12/15/16 20:00 96.9 65 20 97/60 95 I/O 12/15/16 12/15/16 12/15/16 12/16/16 12/16/16 12/16/16 06:59 14:59 22:59 06:59 14:59 22:59 Intake Total 0 ml 2480 ml Output Total 600 ml 700 ml Balance -600 ml 1780 ml Intake Oral 0 ml Tube Feeding 1560 ml Tube Irrigant 800 ml Other 120 ml Output Urine Total 600 ml 700 ml # Bowel Movements 2 Result Diagram: 12/12/16 1244 12/12/16 1244 Objective Remarks GENERAL: Elderly male in no apparent distress. CARDIOVASCULAR: Regular rate and rhythm. RESPIRATORY: No accessory muscle use. CTAB. GASTROINTESTINAL: Abdomen soft, nontender, nondistended. NEURO: Does not speak aloud, but nods to answer questions. Procedures None Urinary Catheter: No Date of Insertion: Dec 08, 2016 Vascular Central Line Catheter: No A/P Assessment and Plan Dementia with inappropriate behavior, mood disorder improved Patient had inappropriate behavior which is resolved now. He has been very appropriate for a long time now. Patient has been hospitalized for similar events in 2015 Consulted psychiatry for further evaluation, who indicated that this is a frontal lobe dementia Risperdal 0.25 mg during the day, Risperdal 0.5 mg at night. Risperdal was discontinued per POA request. [facility] Psychiatry was reconsulted and is ok with discontinuation of Risperdal. Protein calorie malnutrition: Improving Jevity 1.5 w/ bolus 1.5 cans (360ml) @ 0800, 1100 and 1400 and 1 can (240ml) @ 1700 and 2000. Free Water Flush 100ml before and after each bolus feeding. Deep Fat Cook Fry following. Ensure Enlive tid and chocolate pudding tid. Patient desired to eat and speech therapy advised puree diet, thin liquids, but patient has not been eating. Deep Fat Cook Fry suggested considering appetite stimulant. This was discussed with attending, but we do not believe this would be beneficial for patient and would add unnecessary risk to the patient. Will continue with tube feeds only. Hematuria: Resolved. -Patient is not on anticoagulation. -Hemoglobin normal. -Creatinine is normal. -UA 4/5 with innumerable RBCs, but urine sample not grossly bloody. Urinary tract infection, recurrent: Urine culture positive for Proteus mirabilis and GBS on 01/20. Patient completed course of antibiotics. Abdominal pelvis CT 03/06 shows decompressed bladder with circumferential bladder wall thickening and intraluminal air possibly indicating cystitis, but the patient had been afebrile with normal WBC count. Urine culture 05/31 with Serratia marcescens, Pseudomonas, and Enterococcus faecalis. Patient was started on antibiotics. Repeat urine culture on 06/04 only reveals contaminants. Urine culture /5 with Enterococcus faecalis and Pseudomonas Aeruginosa similar to previous culture on 05/31. Patient remains afebrile. CBC with normal white blood cell count. Continue to change Soto monthly. 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 Monitor and treat only if symptomatic. Mild obstructive uropathy: Resolved. Appreciate urology recommendations. Suprapubic catheter to be changed monthly; last changed 12/08/16. Abdominal pelvis CT 03/06/16 shows resolution of right sided hydronephrosis. Upper GI bleeding with recurrent rectal bleeding: Resolved. Hemoglobin stable. GI reevaluated patient on 05/04. Presumed hemorrhoids, s/p Anusol HC for total of 2 weeks. Continue PPI. Seborrheic dermatitis: Improved. S/p Ketoconazole 2% shampoo, hydrocortisone lotion, and multiple courses of hydrocortisone cream. Chalazion: Nodule R upper eyelid. No evidence of preseptal cellulitis. -Warm compresses were applied but it was greater than 2 weeks without significant improvement. -Ophthalmology was consulted and evaluated patient on 03/26. S/p Tobradex 4 times a day OD x 2 weeks. Patient was intermittently compliant with eyedrops. -No worsening. Follow-up outpatient. Hypotension: chronic Blood pressure labile. Continue Midodrine. Patient on max dose. Increase free water flushes as needed. Pre-renal azotemia: Improved Continue free water flushes Stage I decubitus ulcer, sacral skin tear: Continue wound care. Frequent turning of patient. Candidal infection: buttocks affected with satellite lesions to the perineum. -S/p Nystatin and clotrimazole Weakness: Continue physical therapy Nursing staff to get patient up out of bed at least 3 times daily Palliative care evaluation According to palliative care notes family wishes aggressive management, they are expecting him to improve, go to a rehabilitation facility and then improve enough to go home. They are declining hospice. DVT prophylaxis: SCDs. Avoid chemical prophylaxis secondary to GI bleed. Discharge Planning 12/04/16: Per case hardener, son will be able to be of more assistance by the end of the week and will assist with placement. [facility] is still willing to take patient if son assists with this. Madeline Ortez Dec 16, 2016 10:21 of the week and will assist with placement. [facility] is still willing to take patient if son assists with this. Madeline Ortez Dec 16, 2016 10:21
[2016-12-16 20:00] VITALS: BP 107/70; PULSE 66; RESP 18; TEMP 98; O2SAT 96
[2016-12-16] MEDS: MIRTAZAPINE 15 MG TAB PEG SCH (21:05)
[2016-12-17] MEDS: MIDODRINE 5 MG TAB PO SCH ×3 (06:18→17:03)
[2016-12-17] MEDS: FREE WATER G-TUBE SCH (08:55)
[2016-12-17] MEDS: LANSOPRAZOLE SOLUTAB 30 MG TAB PEG SCH (08:55)
[2016-12-17] MEDS: ALLOPURINOL 100 MG TAB PEG SCH (08:55)
[2016-12-17 09:04] VITALS: BP 116/72; PULSE 65; RESP 20; TEMP 96.7; O2SAT 97
--- NOTE | 2016-12-17 10:57 | HHI.PR ---
Subjective Remarks Patient seen and examined today for follow-up on profound weakness, dementia. Patient lying in bed comfortable. Give thumbs up when asking questions today. Does not indicate that there is any new problems today. Objective Vitals Vital Signs Date Time Temp Pulse Resp B/P Pulse Ox O2 Delivery O2 Flow Rate FiO2 12/17/16 09:04 96.7 65 20 116/72 97 12/16/16 20:00 98.0 66 18 107/70 96 I/O 12/16/16 12/16/16 12/16/16 12/17/16 12/17/16 12/17/16 06:59 14:59 22:59 06:59 14:59 22:59 Intake Total 1680 ml 440 ml 560 ml Output Total 800 ml 950 ml Balance 1680 ml -360 ml -390 ml Intake Oral 0 ml Tube Feeding 1080 ml 240 ml 240 ml Other 600 ml 200 ml 320 ml Output Urine Total 800 ml 950 ml # Bowel Movements 2 1 Objective Remarks GENERAL: Well-developed, well-nourished, in no acute distress. HEENT: Head is normocephalic without any lesions or masses noted. Facial features are symmetric. Eyes: Extraocular muscles are intact. Conjunctivae were clear. NECK: Trachea midline no deviation. CARDIAC: Regular rhythm, regular rate. S1/S2 are heard. No murmurs gallops or rubs. LUNGS: Clear to auscultation bilaterally. No wheeze, rhonchi or rales. No use of accessory muscles on inspiration or expiration. ABDOMEN: Soft, nontender. Nondistended. Bowel sounds heard in all 4 quadrants. No organomegaly or masses. Negative rebound, negative guarding, suprapubic catheter in place, PEG tube in place with no signs of infection EXTREMITIES: No edema, pulses are equal bilaterally. No cyanosis or clubbing NEUROLOGY: Mood and affect appear appropriate. Cranial nerves II through XII grossly intact. Moving all extremities Procedures None Urinary Catheter: Yes (suprapubic catheter) Assessment to: Continue Soto insert reason: Obstruction/Retention Date of Insertion: Dec 08, 2016 Vascular Central Line Catheter: No A/P Assessment and Plan Weakness: Continue physical therapy Nursing staff to get patient up out of bed at least 3 times daily Dementia with inappropriate behavior, mood disorder improved Patient has been hospitalized for similar events in 2015 Consulted psychiatry for further evaluation, who indicated that this is a frontal lobe dementia Risperdal discontinued at family's request Continue Remeron Parkinson's disease: Patient has dementia and resting tremor. Chronic, stable. GI bleed with presenting of Upper GI bleed, patient with intermittent rectal bleeding: Resolved Hemoglobin continues to remain stable GI was following and reevaluated on 05/04/16 Presumed hemorrhoids, status post Anusol HC for 2 weeks Continue PPI. Protein calorie malnutrition: Improving Consulted dietitian who indicated that patient may be converted to bolus feeding Jevity 1.5, 1.5, 360ml(1.5 cans)@ 0800, 1100, 1400 and 240ml(1-can)@ 1700 and 2000 Prealbumin level 25 Ensure Enlive 3 times a day since pudding 3 times a day PEG tube replaced 11/20/16 Hypotension with episodes of hypertension: Stable Continue monitor blood pressure Continue Midodrine. Mild obstructive uropathy: Resolved. With recurrent urinary tract infections. Treat only if symptomatic Suprapubic catheter in place, changed monthly, last changed 12/08/[address] 03/06/16 shows resolution of right sided hydronephrosis. Seborrhea dermatitis, recurrent Status post Hydrocortisone cream for 2 weeks Counseled nursing staff on proper hygiene to avoid recurrence Palliative care evaluation According to palliative care notes. Family wishes aggressive management, they are expecting him to improve, go to a rehabilitation facility and then improve enough to go home. They are deferring hospice. DVT prophylaxis: SCDs. Avoid chemical prophylaxis secondary to GI bleed. Discharge Planning Discharge planning per case management. Jaguar Walker Dec 17, 2016 10:56
[2016-12-17 20:00] VITALS: BP 103/68; PULSE 75; RESP 22; TEMP 97.6; O2SAT 98
[2016-12-17] MEDS: MIRTAZAPINE 15 MG TAB PEG SCH (20:19)
[2016-12-18 08:00] VITALS: BP 111/71; PULSE 68; RESP 18; TEMP 97.3; O2SAT 96
[2016-12-18] MEDS: FREE WATER G-TUBE SCH (08:38)
[2016-12-18] MEDS: ALLOPURINOL 100 MG TAB PEG SCH (08:38)
[2016-12-18] MEDS: LANSOPRAZOLE SOLUTAB 30 MG TAB PEG SCH (08:38)
--- NOTE | 2016-12-18 10:54 | HHI.PR ---
Subjective Remarks Patient seen and examined today for follow-up on weakness and dementia. Patient is doing well today. Denies any new complaints. No change in clinical status. Objective Vitals Vital Signs Date Time Temp Pulse Resp B/P Pulse Ox O2 Delivery O2 Flow Rate FiO2 12/18/16 08:00 97.3 68 18 111/71 96 12/17/16 20:00 97.6 75 22 103/68 98 I/O 12/17/16 12/17/16 12/17/16 12/18/16 12/18/16 12/18/16 07:00 15:00 23:00 07:00 15:00 23:00 Intake Total 560 ml 2320 ml Output Total 950 ml 2000 ml 600 ml Balance -390 ml 320 ml -600 ml Intake Oral 0 ml Tube Feeding 240 ml 1320 ml Tube Irrigant 800 ml Other 320 ml 200 ml Output Urine Total 950 ml 2000 ml 600 ml # Bowel Movements 2 2 Objective Remarks GENERAL: Well-developed, well-nourished, in no acute distress. HEENT: Head is normocephalic without any lesions or masses noted. Facial features are symmetric. Eyes: Extraocular muscles are intact. Conjunctivae were clear. NECK: Trachea midline no deviation. CARDIAC: Regular rhythm, regular rate. S1/S2 are heard. No murmurs gallops or rubs. LUNGS: Clear to auscultation bilaterally. No wheeze, rhonchi or rales. No use of accessory muscles on inspiration or expiration. ABDOMEN: Soft, nontender. Nondistended. Bowel sounds heard in all 4 quadrants. No organomegaly or masses. Negative rebound, negative guarding, suprapubic catheter in place, PEG tube in place with no signs of infection EXTREMITIES: No edema, pulses are equal bilaterally. No cyanosis or clubbing NEUROLOGY: Mood and affect appear appropriate. Cranial nerves II through XII grossly intact. Moving all extremities Procedures None Urinary Catheter: Yes Assessment to: Continue Soto insert reason: Obstruction/Retention Date of Insertion: Dec 08, 2016 Vascular Central Line Catheter: No A/P Assessment and Plan Weakness: Continue physical therapy Nursing staff to get patient up out of bed at least 3 times daily Dementia with inappropriate behavior, mood disorder improved Patient has been hospitalized for similar events in 2015 Consulted psychiatry for further evaluation, who indicated that this is a frontal lobe dementia Risperdal discontinued at family's request Continue Remeron Parkinson's disease: Patient has dementia and resting tremor. Chronic, stable. GI bleed with presenting of Upper GI bleed, patient with intermittent rectal bleeding: Resolved Hemoglobin continues to remain stable GI was following and reevaluated on 05/04/16 Presumed hemorrhoids, status post Anusol HC for 2 weeks Continue PPI. Protein calorie malnutrition: Improving Consulted dietitian who indicated that patient may be converted to bolus feeding Jevity 1.5, 1.5, 360ml(1.5 cans)@ 0800, 1100, 1400 and 240ml(1-can)@ 1700 and 2000 Prealbumin level 25 Ensure Enlive 3 times a day since pudding 3 times a day PEG tube replaced 11/20/16 Hypotension with episodes of hypertension: Stable Continue monitor blood pressure Continue Midodrine. Mild obstructive uropathy: Resolved. With recurrent urinary tract infections. Treat only if symptomatic Suprapubic catheter in place, changed monthly, last changed 12/08/[address] 03/06/16 shows resolution of right sided hydronephrosis. Seborrhea dermatitis, recurrent Status post Hydrocortisone cream for 2 weeks Counseled nursing staff on proper hygiene to avoid recurrence Palliative care evaluation According to palliative care notes. Family wishes aggressive management, they are expecting him to improve, go to a rehabilitation facility and then improve enough to go home. They are deferring hospice. DVT prophylaxis: SCDs. Avoid chemical prophylaxis secondary to GI bleed. Discharge Planning Discharge planning per case management. Jaguar Walker Dec 18, 2016 10:54
[2016-12-18] MEDS: MIDODRINE 5 MG TAB PO SCH ×2 (11:52→17:53)
[2016-12-18] MEDS: MIRTAZAPINE 15 MG TAB PEG SCH (20:09)
[2016-12-19] MEDS: MIDODRINE 5 MG TAB PO SCH ×3 (06:14→16:35)
[2016-12-19] MEDS: ALLOPURINOL 100 MG TAB PEG SCH (07:54)
[2016-12-19] MEDS: LANSOPRAZOLE SOLUTAB 30 MG TAB PEG SCH (07:55)
[2016-12-19 08:41] VITALS: BP 115/75; PULSE 72; RESP 19; TEMP 96.2; O2SAT 97
--- NOTE | 2016-12-19 11:38 | HHI.PR ---
Subjective Remarks Patient seen and examined today for follow-up on profound weakness, dementia. Patient denies any new complaints. No change in clinical status. Awaiting family case management to arrange safe discharge planning Objective Vitals Vital Signs Date Time Temp Pulse Resp B/P Pulse Ox O2 Delivery O2 Flow Rate FiO2 12/19/16 08:41 96.2 72 19 115/75 97 I/O 12/18/16 12/18/16 12/18/16 12/19/16 12/19/16 12/19/16 07:00 15:00 23:00 07:00 15:00 23:00 Intake Total 2240 ml Output Total 600 ml 750 ml 600 ml Balance -600 ml 2240 ml -750 ml -600 ml Tube Feeding 1440 ml Other 800 ml Output Urine Total 600 ml 750 ml 600 ml # Bowel Movements 2 1 1 Objective Remarks GENERAL: Well-developed, well-nourished, in no acute distress. HEENT: Head is normocephalic without any lesions or masses noted. Facial features are symmetric. Eyes: Extraocular muscles are intact. Conjunctivae were clear. NECK: Trachea midline no deviation. CARDIAC: Regular rhythm, regular rate. S1/S2 are heard. No murmurs gallops or rubs. LUNGS: Clear to auscultation bilaterally. No wheeze, rhonchi or rales. No use of accessory muscles on inspiration or expiration. ABDOMEN: Soft, nontender. Nondistended. Bowel sounds heard in all 4 quadrants. No organomegaly or masses. Negative rebound, negative guarding, suprapubic catheter in place, PEG tube in place with no signs of infection EXTREMITIES: No edema, pulses are equal bilaterally. No cyanosis or clubbing NEUROLOGY: Mood and affect appear appropriate. Cranial nerves II through XII grossly intact. Moving all extremities Procedures None Urinary Catheter: Yes Assessment to: Continue Soto insert reason: Obstruction/Retention Date of Insertion: Dec 08, 2016 Vascular Central Line Catheter: No A/P Assessment and Plan Weakness: Continue physical therapy Nursing staff to get patient up out of bed at least 3 times daily Dementia with inappropriate behavior, mood disorder improved Patient has been hospitalized for similar events in 2015 Consulted psychiatry for further evaluation, who indicated that this is a frontal lobe dementia Risperdal discontinued at family's request Continue Remeron Parkinson's disease: Patient has dementia and resting tremor. Chronic, stable. GI bleed with presenting of Upper GI bleed, patient with intermittent rectal bleeding: Resolved Hemoglobin continues to remain stable GI was following and reevaluated on 05/04/16 Presumed hemorrhoids, status post Anusol HC for 2 weeks Continue PPI. Protein calorie malnutrition: Improving Consulted dietitian who indicated that patient may be converted to bolus feeding Jevity 1.5, 1.5, 360ml(1.5 cans)@ 0800, 1100, 1400 and 240ml(1-can)@ 1700 and 2000 Prealbumin level 25 Ensure Enlive 3 times a day since pudding 3 times a day PEG tube replaced 11/20/16 Hypotension with episodes of hypertension: Stable Continue monitor blood pressure Continue Midodrine. Mild obstructive uropathy: Resolved. With recurrent urinary tract infections. Treat only if symptomatic Suprapubic catheter in place, changed monthly, last changed 12/08/[address] 03/06/16 shows resolution of right sided hydronephrosis. Seborrhea dermatitis, recurrent Status post Hydrocortisone cream for 2 weeks Counseled nursing staff on proper hygiene to avoid recurrence Palliative care evaluation According to palliative care notes. Family wishes aggressive management, they are expecting him to improve, go to a rehabilitation facility and then improve enough to go home. They are deferring hospice. DVT prophylaxis: SCDs. Avoid chemical prophylaxis secondary to GI bleed. Discharge Planning Discharge planning per case management. Jaguar Walker Dec 19, 2016 11:38
[2016-12-19] MEDS: FREE WATER G-TUBE SCH (13:10)
[2016-12-19 20:00] VITALS: BP 118/72; PULSE 68; RESP 18; TEMP 96.7; O2SAT 96
[2016-12-19] MEDS: MIRTAZAPINE 15 MG TAB PEG SCH (20:04)
[2016-12-20] MEDS: MIDODRINE 5 MG TAB PO SCH ×3 (06:00→16:43)
[2016-12-20 08:00] VITALS: BP 118/80; PULSE 88; RESP 18; TEMP 97.6; O2SAT 95
[2016-12-20] MEDS: FREE WATER G-TUBE SCH (08:25)
[2016-12-20] MEDS: LANSOPRAZOLE SOLUTAB 30 MG TAB PEG SCH (08:25)
[2016-12-20] MEDS: ALLOPURINOL 100 MG TAB PEG SCH (08:25)
--- NOTE | 2016-12-20 11:38 | HHI.PR ---
Subjective Remarks Patient seen and examined today for follow-up on weakness, dementia. Patient denies any new complaints today. No change in clinical status. Unfortunately patient is not improving. He is refusing to get out of bed to participate with physical therapy. At the present state and refusal of care patient will never improve will reconsult palliative care for further evaluation Objective Vitals Vital Signs Date Time Temp Pulse Resp B/P Pulse Ox O2 Delivery O2 Flow Rate FiO2 12/20/16 08:00 97.6 88 18 118/80 95 12/19/16 20:00 96.7 68 18 118/72 96 I/O 12/19/16 12/19/16 12/19/16 12/20/16 12/20/16 12/20/16 06:59 14:59 22:59 06:59 14:59 22:59 Intake Total 1440 ml 30 ml Output Total 600 ml Balance -600 ml 1440 ml 30 ml Intake Oral 0 ml IV Total 0 ml Tube Feeding 1240 ml 0 ml Other 200 ml 30 ml Output Urine Total 600 ml # Bowel Movements 1 Objective Remarks GENERAL: Well-developed, well-nourished, in no acute distress. HEENT: Head is normocephalic without any lesions or masses noted. Facial features are symmetric. Eyes: Extraocular muscles are intact. Conjunctivae were clear. NECK: Trachea midline no deviation. CARDIAC: Regular rhythm, regular rate. S1/S2 are heard. No murmurs gallops or rubs. LUNGS: Clear to auscultation bilaterally. No wheeze, rhonchi or rales. No use of accessory muscles on inspiration or expiration. ABDOMEN: Soft, nontender. Nondistended. Bowel sounds heard in all 4 quadrants. No organomegaly or masses. Negative rebound, negative guarding, suprapubic catheter in place, PEG tube in place with no signs of infection EXTREMITIES: No edema, pulses are equal bilaterally. No cyanosis or clubbing NEUROLOGY: Mood and affect appear appropriate. Cranial nerves II through XII grossly intact. Moving all extremities Procedures None Urinary Catheter: No Date of Insertion: Dec 08, 2016 Vascular Central Line Catheter: No A/P Assessment and Plan Weakness: Continue physical therapy Nursing staff to get patient up out of bed at least 3 times daily Patient refusing care, refusing to get out of bed with nursing staff and physical therapy. With outpatient participating in medical management, patient will never improve will only worsen. We'll consult palliative care for recommendations Dementia with inappropriate behavior, mood disorder improved Patient has been hospitalized for similar events in 2015 Consulted psychiatry for further evaluation, who indicated that this is a frontal lobe dementia Risperdal discontinued at family's request Continue Remeron Parkinson's disease: Patient has dementia and resting tremor. Chronic, stable. GI bleed with presenting of Upper GI bleed, patient with intermittent rectal bleeding: Resolved Hemoglobin continues to remain stable GI was following and reevaluated on 05/04/16 Presumed hemorrhoids, status post Anusol HC for 2 weeks Continue PPI. Protein calorie malnutrition: Improving Consulted dietitian who indicated that patient may be converted to bolus feeding Jevity 1.5, 1.5, 360ml(1.5 cans)@ 0800, 1100, 1400 and 240ml(1-can)@ 1700 and 2000 Prealbumin level 25 Ensure Enlive 3 times a day since pudding 3 times a day PEG tube replaced 11/20/16 Hypotension with episodes of hypertension: Stable Continue monitor blood pressure Continue Midodrine. Mild obstructive uropathy: Resolved. With recurrent urinary tract infections. Treat only if symptomatic Suprapubic catheter in place, changed monthly, last changed 12/08/[address] 03/06/16 shows resolution of right sided hydronephrosis. Seborrhea dermatitis, recurrent Status post Hydrocortisone cream for 2 weeks Counseled nursing staff on proper hygiene to avoid recurrence Palliative care evaluation According to palliative care notes. Family wishes aggressive management, they are expecting him to improve, go to a rehabilitation facility and then improve enough to go home. They are deferring hospice. DVT prophylaxis: SCDs. Avoid chemical prophylaxis secondary to GI bleed. Discharge Planning Discharge planning per case management. Jaguar Walker Dec 20, 2016 11:37
--- NOTE | 2016-12-20 13:35 | HHI.HCPN ---
Palliative care reconsulted to assist with readdressing goals of care. Attempted to call patient's son, Orlando for follow-up and to schedule meeting. Unable to reach, left VM on both contact numbers in EMR requesting call back. Psychiatry consultation pending to determine capacity regarding patient's ability to make medical decisions as he is now refusing care. Palliative care will be available with plan to meet with son, Orlando, on Friday. Currently trying to schedule meeting time pending his return call. Brandi Felton, SENIOR SUPPORT ANALYST Dec 20, 2016 13:35
[2016-12-20 20:00] VITALS: BP 112/67; PULSE 73; RESP 22; TEMP 97.1; O2SAT 96
[2016-12-20] MEDS: MIRTAZAPINE 15 MG TAB PEG SCH (20:13)
[2016-12-21] MEDS: MIDODRINE 5 MG TAB PO SCH ×3 (05:54→17:24)
[2016-12-21 07:58] VITALS: BP 104/66; PULSE 75; RESP 18; TEMP 97.5; O2SAT 95
[2016-12-21 08:00] VITALS: BP 108/83; PULSE 72; RESP 18; TEMP 98.9; O2SAT 97
[2016-12-21] MEDS: FREE WATER G-TUBE SCH (08:50)
[2016-12-21] MEDS: ALLOPURINOL 100 MG TAB PEG SCH (08:50)
[2016-12-21] MEDS: LANSOPRAZOLE SOLUTAB 30 MG TAB PEG SCH (08:50)
--- NOTE | 2016-12-21 11:30 | HHI.PR ---
Subjective Remarks Patient seen and examined today for follow-up on profound weakness, treatment refusal, dementia. Nursing staff indicates the patient has some mild erythema around his PEG tube and suprapubic catheter. Objective Vitals Vital Signs Date Time Temp Pulse Resp B/P Pulse Ox O2 Delivery O2 Flow Rate FiO2 12/21/16 07:58 97.5 75 18 104/66 95 12/20/16 20:00 97.1 73 22 112/67 96 I/O 12/20/16 12/20/16 12/20/16 12/21/16 12/21/16 12/21/16 07:00 15:00 23:00 07:00 15:00 23:00 Intake Total 30 ml 1880 ml 590 ml 30 ml Output Total 551 ml 200 ml Balance 30 ml 1880 ml 39 ml -170 ml Intake Oral 0 ml 0 ml 0 ml IV Total 0 ml 0 ml 0 ml Tube Feeding 0 ml 1080 ml 360 ml 0 ml Tube Irrigant 600 ml 200 ml Other 30 ml 200 ml 30 ml 30 ml Output Urine Total 550 ml 200 ml Stool Total 1 ml # Bowel Movements 1 Objective Remarks GENERAL: Well-developed, well-nourished, in no acute distress. HEENT: Head is normocephalic without any lesions or masses noted. Facial features are symmetric. Eyes: Extraocular muscles are intact. Conjunctivae were clear. NECK: Trachea midline no deviation. CARDIAC: Regular rhythm, regular rate. S1/S2 are heard. No murmurs gallops or rubs. LUNGS: Clear to auscultation bilaterally. No wheeze, rhonchi or rales. No use of accessory muscles on inspiration or expiration. ABDOMEN: Soft, nontender. Nondistended. Bowel sounds heard in all 4 quadrants. No organomegaly or masses. Negative rebound, negative guarding, suprapubic catheter in place, PEG tube in place with no signs of infection, mild pink coloration around the PEG tube without any signs of infection. Superior catheter does have some dried serosanguineous fluid. EXTREMITIES: No edema, pulses are equal bilaterally. No cyanosis or clubbing NEUROLOGY: Mood and affect appear appropriate. Cranial nerves II through XII grossly intact. Moving all extremities Procedures None Urinary Catheter: Yes (suprapubic catheter) Assessment to: Continue Soto insert reason: Obstruction/Retention Date of Insertion: Dec 08, 2016 Vascular Central Line Catheter: No A/P Assessment and Plan Weakness: Continue physical therapy Nursing staff to get patient up out of bed at least 3 times daily Patient refusing care, refusing to get out of bed with nursing staff and physical therapy. With outpatient participating in medical management, patient will never improve will only worsen. We'll consult palliative care for recommendations Palliative care instructed me to consult psychiatry to see if patient has capacity to make decisions Dementia with inappropriate behavior, mood disorder improved Patient has been hospitalized for similar events in 2015 Consulted psychiatry for further evaluation, who indicated that this is a frontal lobe dementia Risperdal discontinued at family's request Continue Remeron Parkinson's disease: Patient has dementia and resting tremor. Chronic, stable. GI bleed with presenting of Upper GI bleed, patient with intermittent rectal bleeding: Resolved Hemoglobin continues to remain stable GI was following and reevaluated on 05/04/16 Presumed hemorrhoids, status post Anusol HC for 2 weeks Continue PPI. Protein calorie malnutrition: Improving Consulted dietitian who indicated that patient may be converted to bolus feeding Jevity 1.5, 1.5, 360ml(1.5 cans)@ 0800, 1100, 1400 and 240ml(1-can)@ 1700 and 2000 Prealbumin level 25 Ensure Enlive 3 times a day since pudding 3 times a day PEG tube replaced 11/20/16 Mild pink coloration around PEG tube, instructed nursing staff to clean daily and monitor for infection Hypotension with episodes of hypertension: Stable Continue monitor blood pressure Continue Midodrine. Mild obstructive uropathy: Resolved. With recurrent urinary tract infections. Treat only if symptomatic Suprapubic catheter in place, changed monthly, last changed 12/08/[address] 03/06/16 shows resolution of right sided hydronephrosis. Site around the catheter does have some serosanguineous dried fluid. Instructed nursing staff to clean daily and monitor for infection Seborrhea dermatitis, recurrent Status post Hydrocortisone cream for 2 weeks Counseled nursing staff on proper hygiene to avoid recurrence Palliative care evaluation According to palliative care notes. Family wishes aggressive management, they are expecting him to improve, go to a rehabilitation facility and then improve enough to go home. They are deferring hospice. DVT prophylaxis: SCDs. Avoid chemical prophylaxis secondary to GI bleed. Discharge Planning Discharge planning per case management. Jaguar Walker Dec 21, 2016 11:30
--- NOTE | 2016-12-21 17:35 | PD.PSY.CON ---
Provisional Diagnosis Admission Date Jan 20, 2016 at 10:18 Ruth I. Frontotemporal dementia with behavioral disturbances. Ruth II. Deferred Ruth III. Hypertension, UTI, GI bleeding, Ruth IV. Disinhibited behavior Ruth V. 43 History of Present Illness Service Psychiatry Consult Requested By Medical team Reason for Consult Decisional capacity Primary Care Physician Alexus Anglin MD HPI The patient is a 76 years old man, with psychiatric history of dementia, disinhibited behavior, history of aggressive behavior and agitation, he was hospitalized [place] in 2014, he is hospitalized now due to multiple complications of his medical conditions, such as C. difficile's, hypertension, GI bleeding, infected sacral ulcer, UTI, among others. Patient was consulted to psychiatry due to sexually inappropriate/disinhibited behavior. Patient was seen and evaluated at bedside in his room, chart was reviewed, case discussed with nursing staff and primary medical team. On evaluation patient is found laying in his bed, he is uncooperative, oppositional and resistant, seems to be apathetic, he selectively answers some questions with nodding yes or not, he denies any mood problem, denies anxiety, distress or pain, he denies suicidal or homicidal ideation, he denies visual and auditory hallucinations. No further information is obtained from the patient. Evaluation: 12/21/16 - Patient is a 76 y/o man with past psychiatric history of dementia as per chart, unknown if previous psychiatric hospitalizations but as per chart previous hospitalization in 12/08/14, previous suicide attempts or self injurious behavior, or previous mental health services who has been hospitalized since January 2016 at [facility] in [place] which psychiatry consult was placed to determine decisional capacity. Patient previously seen by psychiatry service in 04/18/16 and at that time was cooperative with interview. As per discussion with nursing staff, patient has not had any behavioral dyscontrol, not refusing care at this time. Patient seen on the medical floor lying on hospital bed but noted to be selectively mute with typewriter assembly and parts inspector but noted to be speaking with nurse. Patient noted to have attention through interview but superficially cooperative and would only answer yes, no or gesture I dont know with his hands. Patient at this time refuses to engage in interview and typewriter assembly and parts inspector at this time determines that patient is unable to express understanding of medical information, appreciate or manipulate information and unable to provide a choice in his care at this time. Review of Systems ROS Limitations: Uncooperative Past Family Social History Coded Allergies: divalproex sodium (Unverified Allergy, Severe, 12/17/16) levofloxacin (Unverified Allergy, Severe, 12/17/16) olanzapine (Unverified Allergy, Severe, 12/17/16) ciprofloxacin (Unverified Allergy, Intermediate, Hallucinations, 12/17/16) per pt's son hydrocodone (Unverified Allergy, Intermediate, Hallucinations, 12/17/16) per pt's son quetiapine (Unverified Allergy, Intermediate, Rash, 12/17/16) Active Scripts Pantoprazole Sodium 40 Mg Tab40 Mg PO DAILY 30 Days Prov:Suhail Haile MD 01/31/16 Midodrine (Proamatine 5 Mg Tab)5 Mg Tab5 Mg PO TID@07,12,17 15 Days Prov:Suhail Haile MD 01/31/16 Sulfamethoxazole-Trimethoprim DS (Bactrim DS)1 Tab Tab1 Tab PO BID 7 Days Prov:Tomi Otero MD 10/19/15 Nitrofurantoin Monohyd Macro (Macrobid)100 Mg [id number] Mg PO BID 10 Days Prov:Tomi Otero MD 10/18/15 Cephalexin Monohydrate (Keflex 500 mg Cap)500 Mg [id number] Mg PO TID 7 Days Prov:Rodrigo Vaca MD 10/11/15 Hydrocodone/Acetaminophen 5 mg/325 mg 1 Tab1 Tab PO Q4H PRN (PAIN) #15 TAB Ref 0 Prov:Jaguar Carranza MD 08/10/15 Reported Medications Colchicine (Colcrys)0.6 Mg Tab0.6 Mg PEG DAILY PRN (PAIN) 08/01/15 Acetaminophen (Tylenol 325 Mg Tab)325 Mg [id number] Mg PEG Q8HR PRN (PAIN) 08/01/15 Tramadol Hcl 50 Mg Tab50 Mg PEG Q12HR PRN (PAIN) 08/01/15 Allopurinol 100 Mg [id number] Mg PEG DAILY 08/01/15 Calcium Carbonate-Vitamin D (Calcium + D)600 Mg Tab1 Tab PEG DAILY 08/01/15 Ranitidine Hcl (Zantac)150 Mg [id number] Mg PEG BID 08/01/15 Loperamide Hcl 2 Mg Tab2 Mg PEG Q12HR PRN (DIARRHEA) DO NOT EXCEED 8 TABLETS/CAPSULES PER 24 HOURS 08/01/15 Mirtazapine (Remeron)7.5 Mg Tab7.5 Mg PEG HS 08/01/15 Current Medications Medications (Trade) Dose Ordered Sig/Gayathri Route Start Time Stop Time Status Last Admin (Tylenol) 650 mg Q4H PRN PO 01/20/16 10:15 08/26/16 09:51 (Zyloprim) 100 mg DAILY PEG 01/21/16 09:00 12/21/16 08:50 (Remeron) 7.5 mg HS PEG 01/20/16 21:00 12/20/16 20:13 (Pill Splitter) 1 ea UNSCH PRN OTHER 01/20/16 14:15 02/08/16 20:56 (Imodium) 2 mg Q6H PRN PO 01/21/16 12:45 04/16/16 20:29 (Proamatine) 10 mg TID@07,12,17 PO 02/18/16 07:00 12/21/16 17:24 (Prevacid Odt) 30 mg DAILY PEG 02/28/16 09:00 12/21/16 08:50 (Dulcolax Supp) 10 mg DAILY PRN MS 03/07/16 10:15 (Free Water) 200 ml DAILY G-TUBE 06/01/16 14:00 12/21/16 08:50 Physical Exam Vital Signs Vital Signs Date Time Temp Pulse Resp B/P Pulse Ox O2 Delivery O2 Flow Rate FiO2 12/21/16 08:00 98.9 72 18 108/83 97 I/O 12/20/16 12/20/16 12/20/16 07:59 15:59 23:59 Intake Total 30 ml 1880 ml 590 ml Output Total 551 ml Balance 30 ml 1880 ml 39 ml Mental Status Examination Appearance Appears stated age, lying on hospital bed, calm but uncooperative with interview , fair eye contact Speech: Other (refuses to talk) Orientation: Person Memory: Impaired (describe) (unable to assess as patient refuses to cooperative in interview) Thought Process: Other (unable to assess as patient refuses to cooperative in interview) Thought Content: Other (unable to assess as patient refuses to cooperative in interview) Language unable to assess as patient refuses to cooperative in interview but normal receptive language as he is able to nod yes, no or gesture I don't know to questions. Fund of Knowledge unable to assess as patient refuses to cooperative in interview Hallucination Type: None (unable to assess as patient refuses to cooperative in interview) Attention and Concentration: Good Suicidal Ideation: No (unable to assess as patient refuses to cooperative in interview) Previous Suicide Attempts: No Homicidal Ideation: No Previous Homicide Attempts: No Insight: Poor Judgment: Poor Affect: Oppositional Affect if Inappropriate: Blunt Mood: Other (unable to assess as patient refuses to cooperative in interview) Assessment & Plan Problem List: (1) Frontotemporal dementia with behavioral disturbance ICD Code: G31.09 Assessment & Plan Patient at this time has no decisional capacity to participate in his medical care decisions. Patient unable to express understanding of medical information , appreciate or manipulate information and unable to provide a choice in his care at this time. Patient to continue recommendations as per primary medical team. Medical decisions should be deferred to patients [facility] as he does not have decisional capacity at this time. Dayday Mathew MD Dec 21, 2016 17:35
[2016-12-21 20:00] VITALS: BP 123/86; PULSE 76; RESP 23; TEMP 96.8; O2SAT 97
[2016-12-21] MEDS: MIRTAZAPINE 15 MG TAB PEG SCH (20:03)
[2016-12-22] MEDS: MIDODRINE 5 MG TAB PO SCH ×3 (06:22→17:03)
[2016-12-22 07:14] LABS: AUTOMATED NEUTROPHIL # 4.2 TH/MM3 (1.8-7.7); BASOPHIL % 0.6 % (0.0-2.0); EOSINOPHIL # 0.2 TH/MM3 (0-0.4); EOSINOPHIL % 2.5 % (0.0-4.0); HEMATOCRIT 46.5 % (39.0-51.0); HEMO FLAGS DIFF FINAL; LYMPH % 40.5 % (9.0-44.0); LYMPHOCYTE # 3.4 TH/MM3 (1.0-4.8); MEAN CELL VOLUME 87.3 FL (80.0-100.0); MEAN CORPUSCULAR HEMOGLOBIN 28.6 PG (27.0-34.0); MEAN CORPUSCULAR HGB CONC 32.7 % (32.0-36.0); MONO % 6.5 % (0.0-8.0); NEUT % 49.9 % (16.0-70.0); PLATELET COUNT 147 TH/MM3 (150-450); RED BLOOD COUNT 5.32 MIL/MM3 (4.50-5.90); RED CELL DISTRIBUTION WIDTH 15.6 % (11.6-17.2); WHITE BLOOD COUNT 8.3 TH/MM3 (4.0-11.0)
--- NOTE | 2016-12-22 07:27 | HHI.PR ---
Subjective Remarks Patient seen and examined today for follow-up on profound weakness, refusal of care. Patient denies any new complaints. Nursing staff stated patient had scant stool last evening that was brown/red in coloration. Objective Vitals Vital Signs Date Time Temp Pulse Resp B/P Pulse Ox O2 Delivery O2 Flow Rate FiO2 12/21/16 20:00 96.8 76 23 123/86 97 12/21/16 08:00 98.9 72 18 108/83 97 12/21/16 07:58 97.5 75 18 104/66 95 I/O 12/21/16 12/21/16 12/21/16 12/22/16 12/22/16 12/22/16 07:00 15:00 23:00 07:00 15:00 23:00 Intake Total 30 ml 1880 ml 440 ml Output Total 200 ml 500 ml 900 ml Balance -170 ml 1380 ml -460 ml Intake Oral 0 ml 0 ml IV Total 0 ml Tube Feeding 0 ml 1080 ml 240 ml Tube Irrigant 600 ml 200 ml Other 30 ml 200 ml Output Urine Total 200 ml 500 ml 900 ml # Bowel Movements 1 2 Result Diagram: 12/22/16 0710 Objective Remarks GENERAL: Well-developed, well-nourished, in no acute distress. HEENT: Head is normocephalic without any lesions or masses noted. Facial features are symmetric. Eyes: Extraocular muscles are intact. Conjunctivae were clear. NECK: Trachea midline no deviation. CARDIAC: Regular rhythm, regular rate. S1/S2 are heard. No murmurs gallops or rubs. LUNGS: Clear to auscultation bilaterally. No wheeze, rhonchi or rales. No use of accessory muscles on inspiration or expiration. ABDOMEN: Soft, nontender. Nondistended. Bowel sounds heard in all 4 quadrants. No organomegaly or masses. Negative rebound, negative guarding, suprapubic catheter in place, PEG tube in place with no signs of infection, mild pink coloration around the PEG tube without any signs of infection. Superior catheter does have some dried serosanguineous fluid. EXTREMITIES: No edema, pulses are equal bilaterally. No cyanosis or clubbing NEUROLOGY: Mood and affect appear appropriate. Cranial nerves II through XII grossly intact. Moving all extremities Procedures None Urinary Catheter: Yes (suprapubic catheter) Assessment to: Continue Soto insert reason: Obstruction/Retention Date of Insertion: Dec 08, 2016 Vascular Central Line Catheter: No A/P Assessment and Plan Weakness: Continue physical therapy Nursing staff to get patient up out of bed at least 3 times daily Patient refusing care, refusing to get out of bed with nursing staff and physical therapy. With outpatient participating in medical management, patient will never improve will only worsen. We'll consult palliative care for recommendations Palliative care instructed me to consult psychiatry to see if patient has capacity to make decisions. Psychiatry evaluated patient states that he does not have capacity make his own decisions Palliative care is waiting for phone call back from his son for further recommendations Dementia with inappropriate behavior, mood disorder improved Patient has been hospitalized for similar events in 2015 Consulted psychiatry for further evaluation, who indicated that this is a frontal lobe dementia Risperdal discontinued at family's request Continue Remeron Parkinson's disease: Patient has dementia and resting tremor. Chronic, stable. GI bleed with presenting of Upper GI bleed, patient with intermittent rectal bleeding: Nursing staff states that patient has scant round/red stool last night Repeat CBC was performed and Hemoglobin continues to remain stable GI was following and reevaluated on 05/04/16 Presumed hemorrhoids, status post Anusol HC for 2 weeks Continue PPI. Protein calorie malnutrition: Improving Consulted dietitian who indicated that patient may be converted to bolus feeding Jevity 1.5, 1.5, 360ml(1.5 cans)@ 0800, 1100, 1400 and 240ml(1-can)@ 1700 and 2000 Prealbumin level 25 Ensure Enlive 3 times a day since pudding 3 times a day PEG tube replaced 11/20/16 Mild pink coloration around PEG tube, instructed nursing staff to clean daily and monitor for infection Hypotension with episodes of hypertension: Stable Continue monitor blood pressure Continue Midodrine. Mild obstructive uropathy: Resolved. With recurrent urinary tract infections. Treat only if symptomatic Suprapubic catheter in place, changed monthly, last changed 12/08/[address] 03/06/16 shows resolution of right sided hydronephrosis. Site around the catheter does have some serosanguineous dried fluid. Instructed nursing staff to clean daily and monitor for infection Seborrhea dermatitis, recurrent Status post Hydrocortisone cream for 2 weeks Counseled nursing staff on proper hygiene to avoid recurrence Palliative care evaluation According to palliative care notes. Family wishes aggressive management, they are expecting him to improve, go to a rehabilitation facility and then improve enough to go home. They are deferring hospice. DVT prophylaxis: SCDs. Avoid chemical prophylaxis secondary to GI bleed. Discharge Planning Discharge planning per case management. Jaguar Walker Dec 22, 2016 07:27
[2016-12-22] MEDS: ALLOPURINOL 100 MG TAB PEG SCH (07:33)
[2016-12-22] MEDS: LANSOPRAZOLE SOLUTAB 30 MG TAB PEG SCH (07:33)
[2016-12-22] MEDS: FREE WATER G-TUBE SCH (07:33)
[2016-12-22 07:47] VITALS: BP 151/97; PULSE 72; RESP 15; TEMP 98.2; O2SAT 100
[2016-12-22 07:49] VITALS: BP 127/90; PULSE 72; RESP 16; TEMP 98.2; O2SAT 100
[2016-12-22 20:00] VITALS: BP 142/75; PULSE 84; RESP 20; TEMP 97.1; O2SAT 95
[2016-12-22] MEDS: MIRTAZAPINE 15 MG TAB PEG SCH (20:05)
[2016-12-23] MEDS: MIDODRINE 5 MG TAB PO SCH ×3 (06:42→18:01)
[2016-12-23 08:00] VITALS: BP 97/59; PULSE 72; RESP 16; TEMP 97.1; O2SAT 94
[2016-12-23] MEDS: FREE WATER G-TUBE SCH (08:42)
[2016-12-23] MEDS: LANSOPRAZOLE SOLUTAB 30 MG TAB PEG SCH (08:43)
[2016-12-23] MEDS: ALLOPURINOL 100 MG TAB PEG SCH (08:43)
--- NOTE | 2016-12-23 11:26 | HHI.PR ---
Subjective Remarks Patient seen and examined today in follow-up for weakness, refusal of care, dementia. Patient denies any new complaints. Still is using get out of bed. No change in clinical status. Objective Vitals Vital Signs Date Time Temp Pulse Resp B/P (MAP) Pulse Ox O2 Delivery O2 Flow Rate FiO2 12/23/16 08:00 97.1 72 16 97/59 (72) 94 12/22/16 20:00 97.1 84 20 142/75 (97) 95 I/O 12/22/16 12/22/16 12/22/16 12/23/16 12/23/16 12/23/16 07:00 15:00 23:00 07:00 15:00 23:00 Intake Total 1380 ml 340 ml Output Total 600 ml 600 ml 125 ml Balance -600 ml 1380 ml -260 ml -125 ml Tube Feeding 1080 ml 240 ml Other 300 ml 100 ml Output Urine Total 600 ml 600 ml 125 ml # Bowel Movements 2 1 2 Result Diagram: 12/22/16 0710 Objective Remarks GENERAL: Well-developed, well-nourished, in no acute distress. HEENT: Head is normocephalic without any lesions or masses noted. Facial features are symmetric. Eyes: Extraocular muscles are intact. Conjunctivae were clear. NECK: Trachea midline no deviation. CARDIAC: Regular rhythm, regular rate. S1/S2 are heard. No murmurs gallops or rubs. LUNGS: Clear to auscultation bilaterally. No wheeze, rhonchi or rales. No use of accessory muscles on inspiration or expiration. ABDOMEN: Soft, nontender. Nondistended. Bowel sounds heard in all 4 quadrants. No organomegaly or masses. Negative rebound, negative guarding, suprapubic catheter in place, PEG tube in place with no signs of infection, EXTREMITIES: No edema, pulses are equal bilaterally. No cyanosis or clubbing NEUROLOGY: Mood and affect appear appropriate. Cranial nerves II through XII grossly intact. Moving all extremities Procedures None Urinary Catheter: No Date of Insertion: Dec 08, 2016 Vascular Central Line Catheter: No A/P Problem List: (1) Decreased urine output ICD Code: R34 - Anuria and oliguria Status: Acute (2) Prerenal azotemia ICD Code: R79.89 - Other specified abnormal findings of blood chemistry Status: Acute (3) Hematuria ICD Code: R31.9 - Hematuria, unspecified Status: Acute Assessment and Plan Weakness: Continue physical therapy Nursing staff to get patient up out of bed at least 3 times daily Patient refusing care, refusing to get out of bed with nursing staff and physical therapy. With outpatient participating in medical management, patient will never improve will only worsen. We'll consult palliative care for recommendations Palliative care instructed me to consult psychiatry to see if patient has capacity to make decisions. Psychiatry evaluated patient states that he does not have capacity make his own decisions Palliative care is waiting for phone call back from his son for further recommendations Dementia with inappropriate behavior, mood disorder improved Patient has been hospitalized for similar events in 2015 Consulted psychiatry for further evaluation, who indicated that this is a frontal lobe dementia Risperdal discontinued at family's request Continue Remeron Parkinson's disease: Patient has dementia and resting tremor. Chronic, stable. GI bleed with presenting of Upper GI bleed, patient with intermittent rectal bleeding: Nursing staff states that patient has scant round/red stool last night Repeat CBC was performed and Hemoglobin continues to remain stable GI was following and reevaluated on 05/04/16 Presumed hemorrhoids, status post Anusol HC for 2 weeks Continue PPI. Protein calorie malnutrition: Improving Consulted dietitian who indicated that patient may be converted to bolus feeding Jevity 1.5, 1.5, 360ml(1.5 cans)@ 0800, 1100, 1400 and 240ml(1-can)@ 1700 and 2000 Prealbumin level 25 Ensure Enlive 3 times a day since pudding 3 times a day PEG tube replaced 11/20/16 Mild pink coloration around PEG tube, instructed nursing staff to clean daily and monitor for infection Hypotension with episodes of hypertension: Stable Continue monitor blood pressure Continue Midodrine. Mild obstructive uropathy: Resolved. With recurrent urinary tract infections. Treat only if symptomatic Suprapubic catheter in place, changed monthly, last changed 12/08/[address] 03/06/16 shows resolution of right sided hydronephrosis. Site around the catheter does have some serosanguineous dried fluid. Instructed nursing staff to clean daily and monitor for infection Seborrhea dermatitis, recurrent Status post Hydrocortisone cream for 2 weeks Counseled nursing staff on proper hygiene to avoid recurrence Palliative care evaluation According to palliative care notes. Family wishes aggressive management, they are expecting him to improve, go to a rehabilitation facility and then improve enough to go home. They are deferring hospice. DVT prophylaxis: SCDs. Avoid chemical prophylaxis secondary to GI bleed. Discharge Planning Discharge planning per case management. Jaguar Walker Dec 23, 2016 11:25
--- NOTE | 2016-12-23 12:59 | HHI.HCPN ---
Reason for visit a. To assist with evaluation and management of symptoms including:pain b. To assist medical decision maker(s) with: better understanding of current medical conditions; weighing benefits/burdens of medical treatment options; making medical treatment decisions. Subjective/Interval History We have been reconsulted to review goals of care of family. Pt had been refusing care per medical team. Medical team noted pt has been refusing to get out of bed with nursing staff and physical therapy. Pt continue to received peg tube feedings. Given last meeting with son last visit, I have recommended to medical team for psychiatry to evalauate for capacity to make medical decisions. Psychiatry noted that they have discussed with nursing staff, and pt has not have any behavioral dyscontrol, and not refusing care. He did refuses to engage in interview with psychiatry. Psychiatry noted "Patient at this time has no decisional capacity to participate in his medical care decisions. Patient unable to express understanding of medical information, appreciate or manipulate information and unable to provide a choice in his care at this time. Patient to continue recommendations as per primary medical team. Medical decisions should be deferred to patients [facility] as he does not have decisional capacity at this time." Pt on my visit was sleeping. He easily awakens, but keep his eyes closed. Per nursing he has not lose wt, but he has declined. He has become less interactive from before. Per nurse pt use to be able to sit outside of his room , and even do more with PT. For the past 3 weeks he has not done that. Family/friend interactions Son's [place] cell phone is [phone]. He had called palliative care this morning, but would be available via phone number as stated. I called son(POA) [place]. He states he is still working on placement. I again have conversation with hospice with him. I told him pt will not improve and in fact is declining. He is acknowledging that. Spoke to him about quality of life. Offer hospice, and transition to comfort care, in which [place] declined. He state he will continue to look for placement. He is amenable to have hospice calling him and checking on Father again. I told pt's son, regardless of weather he is on hospice or not, pt need to be on placement. Advance Directives Durable Power of Production Counter: Copy in medical record Objective Vital Signs Date Time Temp Pulse Resp B/P (MAP) Pulse Ox O2 Delivery O2 Flow Rate FiO2 8/21/17 08:00 97.1 72 16 97/59 (72) 94 12/22/16 20:00 97.1 84 20 142/75 (97) 95 Intake & Output 12/23/16 12/23/16 06:59 18:59 Output Total 375 ml Balance -375 ml Output Urine Total 375 ml # Bowel Movements 3 Physical Exam CONSTITUTIONAL/GENERAL: This is a a frial thin gentleman, eyes closed TUBES/LINES/DRAINS: peg tube SKIN: No jaundice, rashes, or lesions. Ecchymoses on upper extremities. No wounds seen anteriorly. Skin temperature appropriate. Not diaphoretic. HEAD: Atraumatic. Normocephalic. EYES: Eyes closed, refuses to open. Did not force open. ENT: Hearing grossly normal. Nose without bleeding or purulent drainage. Throat without visible erythema, exudates, masses, or lesions. NECK: Trachea midline. Supple, nontender. No palpable thyroid enlargement or nodularity. CARDIOVASCULAR: Regular rate and rhythm without murmurs, gallops, or rubs. No JVD. Peripheral pulses symmetric. RESPIRATORY/CHEST: Symmetric, unlabored respirations. Clear to auscultation. Breath sounds equal bilaterally. No wheezes, rales, or rhonchi. GASTROINTESTINAL: Abdomen soft, non-tender, nondistended. No hepato-splenomegaly , or palpable masses. No guarding. Bowel sounds present. Peg tube in place GENITOURINARY: Without palpable bladder distension. suprapubic MUSCULOSKELETAL: Extremities without clubbing, cyanosis, or edema. No joint tenderness or effusion noted. No calf tenderness. No mottling or clubbing. LYMPHATICS: No palpable cervical or supraclavicular adenopathy. NEUROLOGICAL: Awake and alert.Confused . Moves all extremities. Resting tremors present. Diagnostic Tests Laboratory Laboratory Tests Test 12/22/16 07:10 White Blood Count 8.3 TH/MM3 (4.0-11.0) Red Blood Count 5.32 MIL/MM3 (4.50-5.90) Hemoglobin 15.2 GM/DL (13.0-17.0) Hematocrit 46.5 % (39.0-51.0) Mean Corpuscular Volume 87.3 FL (80.0-100.0) Mean Corpuscular Hemoglobin 28.6 PG (27.0-34.0) Mean Corpuscular Hemoglobin Concent 32.7 % (32.0-36.0) Red Cell Distribution Width 15.6 % (11.6-17.2) Platelet Count 147 TH/MM3 (150-450) Mean Platelet Volume 10.1 FL (7.0-11.0) Neutrophils (%) (Auto) 49.9 % (16.0-70.0) Lymphocytes (%) (Auto) 40.5 % (9.0-44.0) Monocytes (%) (Auto) 6.5 % (0.0-8.0) Eosinophils (%) (Auto) 2.5 % (0.0-4.0) Basophils (%) (Auto) 0.6 % (0.0-2.0) Neutrophils # (Auto) 4.2 TH/MM3 (1.8-7.7) Lymphocytes # (Auto) 3.4 TH/MM3 (1.0-4.8) Monocytes # (Auto) 0.5 TH/MM3 (0-0.9) Eosinophils # (Auto) 0.2 TH/MM3 (0-0.4) Basophils # (Auto) 0.0 TH/MM3 (0-0.2) CBC Comment DIFF FINAL Differential Comment Result Diagram: 12/22/16 0710 Imaging Last Impressions Gastrostomy Tube Placement 11/20/16 0000 Signed Impressions: Service Date/Time: Sunday, November 20, 2016 14:06 - CONCLUSION: Uncomplicated gastrostomy tube placement as above. Cholelithiasis. Nitish Felton Jr., MD Abdomen/Pelvis CT 03/06/16 0000 Signed Impressions: Service Date/Time: Sunday, March 06, 2016 22:27 - CONCLUSION: 1. Resolution of right sided hydronephrosis. 2. Renal cysts. 3. Bladder is decompressed and there is circumferential bladder wall thickening and intraluminal air identified. A cystitis is not excluded. 4. A large stool ball is noted within the rectum. 5. Cholelithiasis. 6. Nonobstructing left renal calculus. Speedy Noriega MD Abdomen X-Ray 01/30/16 0000 Signed Impressions: Service Date/Time: Saturday, January 30, 2016 14:17 - CONCLUSION: Satisfactory PEG tube positioning Mikael Valladares MD Assessment and Plan Disease Oriented Problem List: (1) Dementia with behavioral disturbance Comment: risperdol (2) Protein-calorie malnutrition, mild Comment: tube feedings (3) Essential tremor (4) GI bleed Comment: resolved (5) Loose stools Comment: resolved (6) Frontotemporal dementia with behavioral disturbance Symptom Scale: (1) Anxiety 0-10 Scale: Unable to quantify Comment: from dementia Pertinent Non-Medical Issues Psychosocial: Spiritual: Legal: Ethical issues impacting care: Important Contacts POA. [place] Edmond Prognosis 76 year old functionally declined rapidly 1 year ago, with hallucinations, agitations, diagnosed with frontal temporal dementia, on feeding tube and supra pubic catheter. At risk for mutliple agitation, infections. His prognosis however with continue tube feedings probably would probably be greater than 6 months, Albumin is 3.2, and probably not hospice appropriate if tube feedings at the current time. No bed sores. If family however would transition patient to comfort measures only, meaning no further hospitalization, abx, or tube feedings, he would be hospice appropriate. Code Status: Full Code Plan == code full code. == capacity- Psychiatry has noted does not capacity to make medical decisions. == Decision maker: Orlando Edmond (POA) completed in 2015. == goals:. In the past Orlando, feels very strongly that most of his father's deterioration and mentation problem is due to various antibiotics such as cipro, levaquin, depakote, olazapine etc. I sat there extensively and listen to pt decline and what the son feels strongly is attributable to antibitoics and psych meds. Long talk with pt' son stating I am sorry his father is in his state now, but I don't know in terms of his condition, if it is reversible or that he will get better. It does not appear that way. He has suprapubic catheter and peg tube in which he is at risk of multiple infections and will be exposed to abx. He will/ and has need placement in facilities that unfortunately if he display behavior likely will need to give him psych meds. I don't see that there is a solution, chemical pumper. Pt's son recognizes, that but then continue to say I still don't want him to be on risperdal. I ask him, and he acknowledge that hospice have been calling him and keeping in touch with him. He states, his father is not ready to pass away or . He hopes that pt get go to a facility and then be well enough to go home. He acknowledges the challenge. He acknowledge the challenges with placement. He declines hospice services. today (12/23): Son's [place] cell phone is [phone]. He had called palliative care this morning, and could not meet in person like last time, but would be available via phone. I called son(POA) [place]. He states he is still working on placement. I again have conversation with hospice with him. I told him pt will not improve and in fact is declining. He is acknowledging that. Spoke to him about quality of life. Offer hospice, and transition to comfort care, in which [place] declined. He state he will continue to look for placement. He is amenable to have hospice calling him and checking on his Father again. I told pt's son, regardless of weather he is on hospice or not, pt need to be on placement. == palliative care will follow on a as needed bases. Time Spent Total Floor Time (mins): 35 Face to Face Time (mins): 20 Attestation To help prompt me to consider important information that might be impacting today's encounter and assessment, information from prior notes written by myself or my colleagues may have been "brought forward" into today's note. My signature on this note, however, is an attestation that I personally performed the exam, history, and/or decision-making noted today, and, unless otherwise indicated, the interactions with patient, family, and staff as well as the review of records all occurred today. I also attest that the listed assessment and stated plan reflect my best clinical judgment today based on the combination of historical information, prior notes, and today's exam/ interactions. When time spent is documented, it refers only to time spent today by the signer, or if indicated, combined time spent today by collaborating physician/nurse practitioner. Charles Romero MD Dec 23, 2016 12:59
[2016-12-23 20:00] VITALS: BP 107/64; PULSE 80; RESP 18; TEMP 97.8; O2SAT 94
[2016-12-23] MEDS: MIRTAZAPINE 15 MG TAB PEG SCH (20:03)
[2016-12-24] MEDS: MIDODRINE 5 MG TAB PO SCH ×3 (06:28→17:17)
[2016-12-24 08:00] VITALS: BP 114/80; PULSE 88; RESP 18; TEMP 97.4; O2SAT 97
[2016-12-24] MEDS: LANSOPRAZOLE SOLUTAB 30 MG TAB PEG SCH (08:23)
[2016-12-24] MEDS: FREE WATER G-TUBE SCH (08:23)
[2016-12-24] MEDS: ALLOPURINOL 100 MG TAB PEG SCH (08:23)
--- NOTE | 2016-12-24 10:03 | HHI.PR ---
Subjective Remarks Follow-up for dementia. No acute complaints. Nurse states there is some mild redness around the feeding tube site and some mild bleeding around the suprapubic catheter site. Objective Vitals Vital Signs Date Time Temp Pulse Resp B/P (MAP) Pulse Ox O2 Delivery O2 Flow Rate FiO2 12/24/16 08:00 97.4 88 18 114/80 (91) 97 12/23/16 20:00 97.8 80 18 107/64 (78) 94 I/O 12/23/16 12/23/16 12/23/16 12/24/16 12/24/16 12/24/16 07:00 15:00 23:00 07:00 15:00 23:00 Intake Total 0 ml 1720 ml 490 ml Output Total 125 ml 700 ml 300 ml 350 ml Balance -125 ml -700 ml 1420 ml 140 ml Intake Oral 0 ml Tube Feeding 1320 ml 240 ml Tube Irrigant 50 ml Other 400 ml 200 ml Output Urine Total 125 ml 700 ml 300 ml 350 ml # Bowel Movements 2 0 1 Result Diagram: 12/22/16 0710 Objective Remarks GENERAL: Elderly male in no apparent distress. SKIN: Flaking skin to face. No erythema around the PEG tube or suprapubic catheter sites. Mild scabbing around the suprapubic catheter site. CARDIOVASCULAR: Regular rate and rhythm. RESPIRATORY: No accessory muscle use. CTAB. GASTROINTESTINAL: Abdomen soft, nontender, nondistended. NEURO: Does not speak aloud, but nods to answer questions. Procedures None Urinary Catheter: Yes Assessment to: Continue Soto insert reason: Obstruction/Retention Date of Insertion: Dec 08, 2016 Vascular Central Line Catheter: No A/P Assessment and Plan Dementia with inappropriate behavior, mood disorder improved Patient had inappropriate behavior which is resolved now. Patient has been hospitalized for similar events in 2015 Consulted psychiatry for further evaluation, who indicated that this is a frontal lobe dementia. Risperdal was discontinued per POA request. Continue Remeron Psychiatry following; states patient does not have decisional capacity. Palliative care following. Son declines hospice. Protein calorie malnutrition: Improving Jevity 1.5 w/ bolus 1.5 cans (360ml) @ 0800, 1100 and 1400 and 1 can (240ml) @ 1700 and 2000. Free Water Flush 100ml before and after each bolus feeding. Histology Assistant following. Ensure Enlive tid and chocolate pudding tid. Patient desired to eat and speech therapy advised puree diet, thin liquids, but patient has not been eating. Histology Assistant suggested considering appetite stimulant. This was discussed with attending, but we do not believe this would be beneficial for patient and would add unnecessary risk to the patient. Will continue with tube feeds only. Hematuria: Resolved. -Patient is not on anticoagulation. -Hemoglobin normal. -Creatinine is normal. -UA 4/5 with innumerable RBCs, but urine sample not grossly bloody. Urinary tract infection, recurrent: Urine culture positive for Proteus mirabilis and GBS on 01/20. Patient completed course of antibiotics. Abdominal pelvis CT 03/06 shows decompressed bladder with circumferential bladder wall thickening and intraluminal air possibly indicating cystitis, but the patient had been afebrile with normal WBC count. Urine culture 05/31 with Serratia marcescens, Pseudomonas, and Enterococcus faecalis. Patient was started on antibiotics. Repeat urine culture on 06/04 only reveals contaminants. Urine culture / with Enterococcus faecalis and Pseudomonas Aeruginosa similar to previous culture on 05/31. Patient remains afebrile. CBC with normal white blood cell count. Continue to change Soto monthly. 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 Monitor and treat only if symptomatic. Mild obstructive uropathy: Resolved. Appreciate urology recommendations. Suprapubic catheter to be changed monthly; last changed 12/08/16. Abdominal pelvis CT 03/06/16 shows resolution of right sided hydronephrosis. Upper GI bleeding with recurrent rectal bleeding: Resolved. Hemoglobin stable. GI reevaluated patient on 05/04. Presumed hemorrhoids, s/p Anusol HC for total of 2 weeks. Continue PPI. Seborrheic dermatitis: Improved. S/p Ketoconazole 2% shampoo, hydrocortisone lotion, and multiple courses of hydrocortisone cream. Chalazion: Nodule R upper eyelid. No evidence of preseptal cellulitis. -Warm compresses were applied but it was greater than 2 weeks without significant improvement. -Ophthalmology was consulted and evaluated patient on 03/26. S/p Tobradex 4 times a day OD x 2 weeks. Patient was intermittently compliant with eyedrops. -No worsening. Follow-up outpatient. Hypotension: chronic Blood pressure labile. Continue Midodrine. Patient on max dose. Increase free water flushes as needed. Pre-renal azotemia: Improved Continue free water flushes Stage I decubitus ulcer, sacral skin tear: Continue wound care. Frequent turning of patient. Candidal infection: buttocks affected with satellite lesions to the perineum. -S/p Nystatin and clotrimazole Weakness: Continue physical therapy Nursing staff to get patient up out of bed at least 3 times daily DVT prophylaxis: SCDs. Avoid chemical prophylaxis secondary to GI bleed. Discharge Planning 12/23/16: DORIS spoke with patient's son [place] who states he is able to assist now. CM gave him number of liaison from [facility] to call [facility] to work on getting placement there. CM also called [facility] to see if they will reevaluate patient. Madeline Ortez Dec 24, 2016 10:03
[2016-12-24] MEDS: MIRTAZAPINE 15 MG TAB PEG SCH (19:33)
[2016-12-24 20:00] VITALS: BP 102/69; PULSE 73; RESP 23; TEMP 96.1; O2SAT 96
[2016-12-25] MEDS: MIDODRINE 5 MG TAB PO SCH ×3 (06:07→17:39)
[2016-12-25 08:55] VITALS: BP 113/71; PULSE 64; RESP 16; TEMP 98.3; O2SAT 96
[2016-12-25] MEDS: LANSOPRAZOLE SOLUTAB 30 MG TAB PEG SCH (09:00)
[2016-12-25] MEDS: ALLOPURINOL 100 MG TAB PEG SCH (09:00)
[2016-12-25] MEDS: FREE WATER G-TUBE SCH (09:00)
--- NOTE | 2016-12-25 12:17 | HHI.PR ---
Subjective Remarks Follow-up for dementia. No acute complaints. Objective Vitals Vital Signs Date Time Temp Pulse Resp B/P (MAP) Pulse Ox O2 Delivery O2 Flow Rate FiO2 12/25/16 08:55 98.3 64 16 113/71 (85) 96 12/24/16 20:00 96.1 73 23 102/69 (80) 96 I/O 12/24/16 12/24/16 12/24/16 12/25/16 12/25/16 12/25/16 06:59 14:59 22:59 06:59 14:59 22:59 Intake Total 490 ml 2220 ml 440 ml 250 ml Output Total 350 ml 1201 ml 625 ml Balance 140 ml 2220 ml -761 ml -375 ml Tube Feeding 240 ml 1320 ml 240 ml Tube Irrigant 50 ml 100 ml 200 ml 250 ml Other 200 ml 800 ml Output Urine Total 350 ml 1200 ml 625 ml Stool Total 1 ml # Bowel Movements 1 1 1 Result Diagram: 12/22/16 0710 Objective Remarks GENERAL: Elderly male in no apparent distress. SKIN: Small wound to the dorsal R forearm. CARDIOVASCULAR: Regular rate and rhythm. RESPIRATORY: No accessory muscle use. CTAB. GASTROINTESTINAL: Abdomen soft, nontender, nondistended. NEURO: Does not speak aloud, but nods to answer questions. Procedures None Urinary Catheter: No Date of Insertion: Dec 08, 2016 Vascular Central Line Catheter: No A/P Assessment and Plan Dementia with inappropriate behavior, mood disorder improved Patient had inappropriate behavior which is resolved now. Patient has been hospitalized for similar events in 2015 Consulted psychiatry for further evaluation, who indicated that this is a frontal lobe dementia. Risperdal was discontinued per POA request. Continue Remeron Psychiatry following; states patient does not have decisional capacity. Palliative care following. Son declines hospice. Protein calorie malnutrition: Improving Jevity 1.5 w/ bolus 1.5 cans (360ml) @ 0800, 1100 and 1400 and 1 can (240ml) @ 1700 and 2000. Free Water Flush 100ml before and after each bolus feeding. Urban Redevelopment Specialist following. Ensure Enlive tid and chocolate pudding tid. Patient desired to eat and speech therapy advised puree diet, thin liquids, but patient has not been eating. Urban Redevelopment Specialist suggested considering appetite stimulant. This was discussed with attending, but we do not believe this would be beneficial for patient and would add unnecessary risk to the patient. Will continue with tube feeds only. Hematuria: Resolved. -Patient is not on anticoagulation. -Hemoglobin normal. -Creatinine is normal. -UA 4/5 with innumerable RBCs, but urine sample not grossly bloody. Urinary tract infection, recurrent: Urine culture positive for Proteus mirabilis and GBS on 01/20. Patient completed course of antibiotics. Abdominal pelvis CT 03/06 shows decompressed bladder with circumferential bladder wall thickening and intraluminal air possibly indicating cystitis, but the patient had been afebrile with normal WBC count. Urine culture 05/31 with Serratia marcescens, Pseudomonas, and Enterococcus faecalis. Patient was started on antibiotics. Repeat urine culture on 06/04 only reveals contaminants. Urine culture / with Enterococcus faecalis and Pseudomonas Aeruginosa similar to previous culture on 05/31. Patient remains afebrile. CBC with normal white blood cell count. Continue to change Soto monthly. 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 Monitor and treat only if symptomatic. Mild obstructive uropathy: Resolved. Appreciate urology recommendations. Suprapubic catheter to be changed monthly; last changed 12/08/16. Abdominal pelvis CT 03/06/16 shows resolution of right sided hydronephrosis. Upper GI bleeding with recurrent rectal bleeding: Resolved. Hemoglobin stable. GI reevaluated patient on 05/04. Presumed hemorrhoids, s/p Anusol HC for total of 2 weeks. Continue PPI. Seborrheic dermatitis: Improved. S/p Ketoconazole 2% shampoo, hydrocortisone lotion, and multiple courses of hydrocortisone cream. Chalazion: Nodule R upper eyelid. No evidence of preseptal cellulitis. -Warm compresses were applied but it was greater than 2 weeks without significant improvement. -Ophthalmology was consulted and evaluated patient on 03/26. S/p Tobradex 4 times a day OD x 2 weeks. Patient was intermittently compliant with eyedrops. -No worsening. Follow-up outpatient. Hypotension: chronic Blood pressure labile. Continue Midodrine. Patient on max dose. Increase free water flushes as needed. Pre-renal azotemia: Improved Continue free water flushes Stage I decubitus ulcer, sacral skin tear: Continue wound care. Frequent turning of patient. Candidal infection: buttocks affected with satellite lesions to the perineum. -S/p Nystatin and clotrimazole Weakness: Continue physical therapy Nursing staff to get patient up out of bed at least 3 times daily DVT prophylaxis: SCDs. Avoid chemical prophylaxis secondary to GI bleed. Discharge Planning 12/23/16: CM spoke with patient's son Orlando who states he is able to assist now. CM gave him number of liaison from [facility] to call collin to work on getting placement there. CM also called [place] [facility] to see if they will reevaluate patient. Madeline Ortez Dec 25, 2016 12:17
[2016-12-25 20:00] VITALS: BP 105/71; PULSE 75; RESP 20; TEMP 98; O2SAT 94
[2016-12-25] MEDS: MIRTAZAPINE 15 MG TAB PEG SCH (20:02)
[2016-12-26] MEDS: MIDODRINE 5 MG TAB PO SCH ×3 (06:00→16:44)
[2016-12-26] MEDS: LANSOPRAZOLE SOLUTAB 30 MG TAB PEG SCH (08:21)
[2016-12-26] MEDS: FREE WATER G-TUBE SCH (08:21)
[2016-12-26] MEDS: ALLOPURINOL 100 MG TAB PEG SCH (08:21)
[2016-12-26 08:33] VITALS: BP 112/75; PULSE 69; RESP 19; TEMP 97.3; O2SAT 97
--- NOTE | 2016-12-26 13:21 | HHI.PR ---
Subjective Remarks Follow-up for dementia. No acute complaints. Objective Vitals Vital Signs Date Time Temp Pulse Resp B/P (MAP) Pulse Ox O2 Delivery O2 Flow Rate FiO2 12/26/16 08:33 97.3 69 19 112/75 (87) 97 12/25/16 20:00 98.0 75 20 105/71 (82) 94 I/O 12/25/16 12/25/16 12/25/16 12/26/16 12/26/16 12/26/16 07:00 15:00 23:00 07:00 15:00 23:00 Intake Total 250 ml 1680 ml 390 ml 250 ml Output Total 625 ml 650 ml 700 ml 1125 ml Balance -375 ml 1030 ml -310 ml -875 ml Intake Oral 0 ml Tube Feeding 1080 ml 240 ml Tube Irrigant 250 ml 150 ml 250 ml Other 600 ml Output Urine Total 625 ml 650 ml 700 ml 1125 ml Stool Total 0 ml # Voids 0 # Bowel Movements 1 0 1 Result Diagram: 12/22/16 0710 Objective Remarks GENERAL: Elderly male in no apparent distress. SKIN: Tegaderm over R dorsal forearm wound. Red patches to neck with flaking skin. CARDIOVASCULAR: Regular rate and rhythm. RESPIRATORY: No accessory muscle use. CTAB. GASTROINTESTINAL: Abdomen soft, nontender, nondistended. NEURO: Does not speak aloud, but nods to answer questions. Procedures None Urinary Catheter: No Date of Insertion: Dec 08, 2016 Vascular Central Line Catheter: No A/P Assessment and Plan Dementia with inappropriate behavior, mood disorder improved Patient had inappropriate behavior which is resolved now. Patient has been hospitalized for similar events in 2015 Consulted psychiatry for further evaluation, who indicated that this is a frontal lobe dementia. Risperdal was discontinued per POA request. Continue Remeron Psychiatry following; states patient does not have decisional capacity. Palliative care following. Son declines hospice. Protein calorie malnutrition: Improving Jevity 1.5 w/ bolus 1.5 cans (360ml) @ 0800, 1100 and 1400 and 1 can (240ml) @ 1700 and 2000. Free Water Flush 100ml before and after each bolus feeding. Senior Graduate Advisor following. Ensure Enlive tid and chocolate pudding tid. Patient desired to eat and speech therapy advised puree diet, thin liquids, but patient has not been eating. Senior Graduate Advisor suggested considering appetite stimulant. This was discussed with attending, but we do not believe this would be beneficial for patient and would add unnecessary risk to the patient. Will continue with tube feeds only. Hematuria: Resolved. -Patient is not on anticoagulation. -Hemoglobin normal. -Creatinine is normal. -UA 4/5 with innumerable RBCs, but urine sample not grossly bloody. Urinary tract infection, recurrent: Urine culture positive for Proteus mirabilis and GBS on 01/20. Patient completed course of antibiotics. Abdominal pelvis CT 03/06 shows decompressed bladder with circumferential bladder wall thickening and intraluminal air possibly indicating cystitis, but the patient had been afebrile with normal WBC count. Urine culture 05/31 with Serratia marcescens, Pseudomonas, and Enterococcus faecalis. Patient was started on antibiotics. Repeat urine culture on 06/04 only reveals contaminants. Urine culture / with Enterococcus faecalis and Pseudomonas Aeruginosa similar to previous culture on 05/31. Patient remains afebrile. CBC with normal white blood cell count. Continue to change Soto monthly. 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 Monitor and treat only if symptomatic. Mild obstructive uropathy: Resolved. Appreciate urology recommendations. Suprapubic catheter to be changed monthly; last changed 12/08/16. Abdominal pelvis CT 03/06/16 shows resolution of right sided hydronephrosis. Upper GI bleeding with recurrent rectal bleeding: Resolved. Hemoglobin stable. GI reevaluated patient on 05/04. Presumed hemorrhoids, s/p Anusol HC for total of 2 weeks. Continue PPI. Seborrheic dermatitis: Improved. S/p Ketoconazole 2% shampoo, hydrocortisone lotion, and multiple courses of hydrocortisone cream. Chalazion: Nodule R upper eyelid. No evidence of preseptal cellulitis. -Warm compresses were applied but it was greater than 2 weeks without significant improvement. -Ophthalmology was consulted and evaluated patient on 03/26. S/p Tobradex 4 times a day OD x 2 weeks. Patient was intermittently compliant with eyedrops. -No worsening. Follow-up outpatient. Hypotension: chronic Blood pressure labile. Continue Midodrine. Patient on max dose. Increase free water flushes as needed. Pre-renal azotemia: Improved Continue free water flushes Stage I decubitus ulcer, sacral skin tear: Continue wound care. Frequent turning of patient. Candidal infection: buttocks affected with satellite lesions to the perineum. -S/p Nystatin and clotrimazole Weakness: Continue physical therapy Nursing staff to get patient up out of bed at least 3 times daily DVT prophylaxis: SCDs. Avoid chemical prophylaxis secondary to GI bleed. Discharge Planning 12/23/16: CM spoke with patient's son Orlando who states he is able to assist now. CM gave him number of liaison from [facility] to call collin to work on getting placement there. CM also called [place] [facility] to see if they will reevaluate patient. Madeline Ortez Dec 26, 2016 13:21
[2016-12-26 18:31] LABS: POTASSIUM 3.7 MEQ/L (3.5-5.1)
[2016-12-26 18:35] LABS: BICARBONATE 27.2 MEQ/L (21.0-32.0)
[2016-12-26 20:00] VITALS: BP 120/77; PULSE 81; RESP 16; TEMP 98; O2SAT 95
[2016-12-26] MEDS: MIRTAZAPINE 15 MG TAB PEG SCH (20:01)
[2016-12-27] MEDS: MIDODRINE 5 MG TAB PO SCH ×3 (05:57→17:29)
[2016-12-27 08:00] VITALS: BP 120/79; PULSE 82; RESP 19; TEMP 96.5; O2SAT 97
[2016-12-27] MEDS: LANSOPRAZOLE SOLUTAB 30 MG TAB PEG SCH (08:47)
[2016-12-27] MEDS: ALLOPURINOL 100 MG TAB PEG SCH (08:47)
[2016-12-27] MEDS: FREE WATER G-TUBE SCH (09:00)
--- NOTE | 2016-12-27 09:41 | HHI.PR ---
Subjective Remarks Follow-up for dementia. No acute complaints. Objective Vitals Vital Signs Date Time Temp Pulse Resp B/P (MAP) Pulse Ox O2 Delivery O2 Flow Rate FiO2 12/27/16 08:00 96.5 82 19 120/79 (93) 97 12/26/16 20:00 98.0 81 16 120/77 (91) 95 I/O 12/26/16 12/26/16 12/26/16 12/27/16 12/27/16 12/27/16 07:00 15:00 23:00 07:00 15:00 23:00 Intake Total 250 ml 3510 ml 200 ml Output Total 1125 ml 1400 ml Balance -875 ml 2110 ml 200 ml Intake Oral 0 ml 850 ml Tube Feeding 1560 ml Tube Irrigant 250 ml Other 1100 ml 200 ml Output Urine Total 1125 ml 1400 ml # Voids 4 1 # Bowel Movements 1 3 Result Diagram: 12/26/16 1802 12/26/16 180 Objective Remarks GENERAL: Elderly male in no apparent distress. SKIN: Red patches with flaky skin to the neck. CARDIOVASCULAR: Regular rate and rhythm. RESPIRATORY: No accessory muscle use. CTAB. GASTROINTESTINAL: Abdomen soft, nontender, nondistended. NEURO: Does not speak aloud, but nods to answer questions. Procedures None Urinary Catheter: No Date of Insertion: Dec 08, 2016 Vascular Central Line Catheter: No A/P Assessment and Plan Dementia with inappropriate behavior, mood disorder improved Patient had inappropriate behavior which is resolved now. Patient has been hospitalized for similar events in 2015 Consulted psychiatry for further evaluation, who indicated that this is a frontal lobe dementia. Risperdal was discontinued per POA request. Continue Remeron Psychiatry following; states patient does not have decisional capacity. Palliative care following. Son declines hospice. Protein calorie malnutrition: Improving Jevity 1.5 w/ bolus 1.5 cans (360ml) @ 0800, 1100 and 1400 and 1 can (240ml) @ 1700 and 2000. Free Water Flush 100ml before and after each bolus feeding. Ear Muff Assembler following. Ensure Enlive tid and chocolate pudding tid. Patient desired to eat and speech therapy advised puree diet, thin liquids, but patient has not been eating. Ear Muff Assembler suggested considering appetite stimulant. This was discussed with attending, but we do not believe this would be beneficial for patient and would add unnecessary risk to the patient. Will continue with tube feeds only. Hematuria: Resolved. -Patient is not on anticoagulation. -Hemoglobin normal. -Creatinine is normal. -UA 4/5 with innumerable RBCs, but urine sample not grossly bloody. Urinary tract infection, recurrent: Urine culture positive for Proteus mirabilis and GBS on 01/20. Patient completed course of antibiotics. Abdominal pelvis CT 03/06 shows decompressed bladder with circumferential bladder wall thickening and intraluminal air possibly indicating cystitis, but the patient had been afebrile with normal WBC count. Urine culture 05/31 with Serratia marcescens, Pseudomonas, and Enterococcus faecalis. Patient was started on antibiotics. Repeat urine culture on 06/04 only reveals contaminants. Urine culture / with Enterococcus faecalis and Pseudomonas Aeruginosa similar to previous culture on 05/31. Patient remains afebrile. CBC with normal white blood cell count. Continue to change Soto monthly. 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 Monitor and treat only if symptomatic. Mild obstructive uropathy: Resolved. Appreciate urology recommendations. Suprapubic catheter to be changed monthly; last changed 12/08/16. Abdominal pelvis CT 03/06/16 shows resolution of right sided hydronephrosis. Upper GI bleeding with recurrent rectal bleeding: Resolved. Hemoglobin stable. GI reevaluated patient on 05/04. Presumed hemorrhoids, s/p Anusol HC for total of 2 weeks. Continue PPI. Seborrheic dermatitis: Stable S/p Ketoconazole 2% shampoo, hydrocortisone lotion, and multiple courses of hydrocortisone cream. Chalazion: Nodule R upper eyelid. No evidence of preseptal cellulitis. -Warm compresses were applied but it was greater than 2 weeks without significant improvement. -Ophthalmology was consulted and evaluated patient on 03/26. S/p Tobradex 4 times a day OD x 2 weeks. Patient was intermittently compliant with eyedrops. -No worsening. Follow-up outpatient. Hypotension: chronic Blood pressure labile. Continue Midodrine. Patient on max dose. Increase free water flushes as needed. Pre-renal azotemia: Improved Continue free water flushes Stage I decubitus ulcer, sacral skin tear: Continue wound care, barrier cream Frequent turning of patient. Candidal infection: buttocks affected with satellite lesions to the perineum. Resolved. -S/p Nystatin and clotrimazole Weakness: Continue physical therapy Nursing staff to get patient up out of bed at least 3 times daily DVT prophylaxis: SCDs. Avoid chemical prophylaxis secondary to GI bleed. Discharge Planning 12/23/16: CM spoke with patient's son Orlando who states he is able to assist now. CM gave him number of liaison from [facility] to call collin to work on getting placement there. CM also called [place] [facility] to see if they will reevaluate patient. Madeline Ortez Dec 27, 2016 09:41
[2016-12-27] MEDS: MIRTAZAPINE 15 MG TAB PEG SCH (19:43)
[2016-12-27 20:00] VITALS: BP 101/65; PULSE 81; RESP 20; TEMP 96.5; O2SAT 94
[2016-12-28] MEDS: MIDODRINE 5 MG TAB PO SCH ×3 (06:08→17:42)
[2016-12-28 08:00] VITALS: BP 118/72; PULSE 80; RESP 18; TEMP 97.4; O2SAT 95
[2016-12-28] MEDS: FREE WATER G-TUBE SCH (08:00)
[2016-12-28] MEDS: ALLOPURINOL 100 MG TAB PEG SCH (08:49)
[2016-12-28] MEDS: LANSOPRAZOLE SOLUTAB 30 MG TAB PEG SCH (08:49)
--- NOTE | 2016-12-28 09:52 | HHI.PR ---
Subjective Remarks Follow-up for dementia. No acute complaints. Objective Vitals Vital Signs Date Time Temp Pulse Resp B/P (MAP) Pulse Ox O2 Delivery O2 Flow Rate FiO2 12/28/16 08:00 97.4 80 18 118/72 (87) 95 12/27/16 20:00 96.5 81 20 101/65 (77) 94 I/O 12/27/16 12/27/16 12/27/16 12/28/16 12/28/16 12/28/16 07:00 15:00 23:00 07:00 15:00 23:00 Intake Total 200 ml 0 ml 2560 ml Output Total 750 ml 850 ml 550 ml Balance 200 ml -750 ml 1710 ml -550 ml Intake Oral 0 ml Tube Feeding 1560 ml Tube Irrigant 200 ml Other 200 ml 800 ml Output Urine Total 750 ml 850 ml 550 ml # Voids 1 # Bowel Movements 1 0 1 Result Diagram: 12/26/16 1802 12/26/161801 Objective Remarks GENERAL: Elderly male in no apparent distress sleeping when I enter the room. CARDIOVASCULAR: Regular rate and rhythm. RESPIRATORY: No accessory muscle use. CTAB. GASTROINTESTINAL: Normoactive bowel sounds. Abdomen soft, nontender, nondistended. NEURO: Does not speak aloud, but nods to answer questions. Procedures None Urinary Catheter: Yes Assessment to: Continue Soto insert reason: Obstruction/Retention Date of Insertion: Dec 08, 2016 Vascular Central Line Catheter: No A/P Assessment and Plan Dementia with inappropriate behavior, mood disorder improved Patient had inappropriate behavior which is resolved now. Patient has been hospitalized for similar events in 2015 Consulted psychiatry for further evaluation, who indicated that this is a frontal lobe dementia. Risperdal was discontinued per POA request. Continue Remeron Psychiatry following; states patient does not have decisional capacity. Palliative care following. Son declines hospice. Protein calorie malnutrition: Improving Jevity 1.5 w/ bolus 1.5 cans (360ml) @ 0800, 1100 and 1400 and 1 can (240ml) @ 1700 and 2000. Free Water Flush 100ml before and after each bolus feeding. Pottery Decorator following. Ensure Enlive tid and chocolate pudding tid. Patient desired to eat and speech therapy advised puree diet, thin liquids, but patient has not been eating. Pottery Decorator suggested considering appetite stimulant. This was discussed with attending, but we do not believe this would be beneficial for patient and would add unnecessary risk to the patient. Will continue with tube feeds only. Hematuria: Resolved. -Patient is not on anticoagulation. -Hemoglobin normal. -Creatinine is normal. -UA 4/5 with innumerable RBCs, but urine sample not grossly bloody. Urinary tract infection, recurrent: Urine culture positive for Proteus mirabilis and GBS on 01/20. Patient completed course of antibiotics. Abdominal pelvis CT 03/06 shows decompressed bladder with circumferential bladder wall thickening and intraluminal air possibly indicating cystitis, but the patient had been afebrile with normal WBC count. Urine culture 05/31 with Serratia marcescens, Pseudomonas, and Enterococcus faecalis. Patient was started on antibiotics. Repeat urine culture on 06/04 only reveals contaminants. Urine culture 08/07 with Enterococcus faecalis and Pseudomonas Aeruginosa similar to previous culture on 05/31. Patient remains afebrile. CBC with normal white blood cell count. Continue to change Soto monthly. 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 Monitor and treat only if symptomatic. Mild obstructive uropathy: Resolved. Appreciate urology recommendations. Suprapubic catheter to be changed monthly; last changed 12/08/16. Abdominal pelvis CT 03/06/16 shows resolution of right sided hydronephrosis. Upper GI bleeding with recurrent rectal bleeding: Resolved. Hemoglobin stable. GI reevaluated patient on 05/04. Presumed hemorrhoids, s/p Anusol HC for total of 2 weeks. Continue PPI. Seborrheic dermatitis: Stable S/p Ketoconazole 2% shampoo, hydrocortisone lotion, and multiple courses of hydrocortisone cream. Chalazion: Nodule R upper eyelid. No evidence of preseptal cellulitis. -Warm compresses were applied but it was greater than 2 weeks without significant improvement. -Ophthalmology was consulted and evaluated patient on 03/26. S/p Tobradex 4 times a day OD x 2 weeks. Patient was intermittently compliant with eyedrops. -No worsening. Follow-up outpatient. Hypotension: chronic Blood pressure labile. Continue Midodrine. Patient on max dose. Increase free water flushes as needed. Pre-renal azotemia: Improved Continue free water flushes Stage I decubitus ulcer, sacral skin tear: Continue wound care, barrier cream Frequent turning of patient. Candidal infection: buttocks affected with satellite lesions to the perineum. Resolved. -S/p Nystatin and clotrimazole Weakness: Continue physical therapy Nursing staff to get patient up out of bed at least 3 times daily DVT prophylaxis: SCDs. Avoid chemical prophylaxis secondary to GI bleed. Discharge Planning 12/23/16: CM spoke with patient's son Orlando who states he is able to assist now. CM gave him number of liaison from [facility] to call collin to work on getting placement there. CM also called [place] Rosario to see if they will reevaluate patient. Madeline Ortez Dec 28, 2016 09:52
[2016-12-28 20:34] VITALS: BP 106/75; PULSE 80; RESP 18; TEMP 97.4; O2SAT 95
[2016-12-28] MEDS: MIRTAZAPINE 15 MG TAB PEG SCH (20:45)
[2016-12-29] MEDS: MIDODRINE 5 MG TAB PO SCH ×3 (05:22→17:02)
[2016-12-29 08:00] VITALS: BP 103/67; PULSE 59; RESP 16; TEMP 97.3; O2SAT 97
[2016-12-29] MEDS: LANSOPRAZOLE SOLUTAB 30 MG TAB PEG SCH (08:11)
[2016-12-29] MEDS: FREE WATER G-TUBE SCH (08:11)
[2016-12-29] MEDS: ALLOPURINOL 100 MG TAB PEG SCH (08:11)
--- NOTE | 2016-12-29 11:00 | HHI.PR ---
Subjective Remarks Follow up for dementia. Denies shortness of breath. Objective Vitals Vital Signs Date Time Temp Pulse Resp B/P (MAP) Pulse Ox O2 Delivery O2 Flow Rate FiO2 12/29/16 08:00 97.3 59 16 103/67 (79) 97 12/28/16 20:34 97.4 80 18 106/75 (85) 95 I/O 12/28/16 12/28/16 12/28/16 12/29/16 12/29/16 12/29/16 07:00 15:00 23:00 07:00 15:00 23:00 Intake Total 1480 ml 340 ml 380 ml 760 ml Output Total 550 ml 320 ml 400 ml Balance -550 ml 1480 ml 20 ml -20 ml 760 ml Intake Oral 0 ml IV Total 0 ml Tube Feeding 1080 ml 240 ml 240 ml 360 ml Tube Irrigant 400 ml 100 ml 200 ml Other 140 ml 200 ml Output Urine Total 550 ml 320 ml 400 ml # Bowel Movements 1 Result Diagram: 12/26/16180112/26/161801 Objective Remarks GENERAL: Elderly male in no apparent distress sleeping when I enter the room. SKIN: Redness to the face and neck. CARDIOVASCULAR: Regular rate and rhythm. RESPIRATORY: No accessory muscle use. Breath sounds initially absent on the R side when supine with normal breath sounds on the left, but when seated up, patient has equal air movement on both sides, mildly coarse posteriorly. GASTROINTESTINAL: Abdomen soft, nontender, nondistended. NEURO: Nods to answer questions. Procedures None Urinary Catheter: No Date of Insertion: Dec 08, 2016 Vascular Central Line Catheter: No A/P Assessment and Plan Dementia with inappropriate behavior, mood disorder improved Patient had inappropriate behavior which is resolved now. Patient has been hospitalized for similar events in 2015 Consulted psychiatry for further evaluation, who indicated that this is a frontal lobe dementia. Risperdal was discontinued per POA request. Continue Remeron Psychiatry following; states patient does not have decisional capacity. Palliative care following. Son declines hospice. Protein calorie malnutrition: Improving Jevity 1.5 w/ bolus 1.5 cans (360ml) @ 0800, 1100 and 1400 and 1 can (240ml) @ 1700 and 2000. Free Water Flush 100ml before and after each bolus feeding. Independent Crop Consultant following. Ensure Enlive tid and chocolate pudding tid. Patient desired to eat and speech therapy advised puree diet, thin liquids, but patient has not been eating. Independent Crop Consultant suggested considering appetite stimulant. This was discussed with attending, but we do not believe this would be beneficial for patient and would add unnecessary risk to the patient. Will continue with tube feeds only. Hematuria: Resolved. -Patient is not on anticoagulation. -Hemoglobin normal. -Creatinine is normal. -UA 4/5 with innumerable RBCs, but urine sample not grossly bloody. Urinary tract infection, recurrent: Urine culture positive for Proteus mirabilis and GBS on 01/20. Patient completed course of antibiotics. Abdominal pelvis CT 03/06 shows decompressed bladder with circumferential bladder wall thickening and intraluminal air possibly indicating cystitis, but the patient had been afebrile with normal WBC count. Urine culture 05/31 with Serratia marcescens, Pseudomonas, and Enterococcus faecalis. Patient was started on antibiotics. Repeat urine culture on 06/04 only reveals contaminants. Urine culture / with Enterococcus faecalis and Pseudomonas Aeruginosa similar to previous culture on 05/31. Patient remains afebrile. CBC with normal white blood cell count. Continue to change Soto monthly. 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 Monitor and treat only if symptomatic. Mild obstructive uropathy: Resolved. Appreciate urology recommendations. Suprapubic catheter to be changed monthly; last changed 12/08/16. Abdominal pelvis CT 03/06/16 shows resolution of right sided hydronephrosis. Upper GI bleeding with recurrent rectal bleeding: Resolved. Hemoglobin stable. GI reevaluated patient on 05/04. Presumed hemorrhoids, s/p Anusol HC for total of 2 weeks. Continue PPI. Seborrheic dermatitis: Stable S/p Ketoconazole 2% shampoo, hydrocortisone lotion, and multiple courses of hydrocortisone cream. Continue washing face regularly Chalazion: Nodule R upper eyelid. No evidence of preseptal cellulitis. -Warm compresses were applied but it was greater than 2 weeks without significant improvement. -Ophthalmology was consulted and evaluated patient on 03/26. S/p Tobradex 4 times a day OD x 2 weeks. Patient was intermittently compliant with eyedrops. -No worsening. Follow-up outpatient. Hypotension: chronic Blood pressure labile. Continue Midodrine. Patient on max dose. Increase free water flushes as needed. Pre-renal azotemia: Improved Continue free water flushes Stage I decubitus ulcer, sacral skin tear: Continue wound care, barrier cream Frequent turning of patient. Candidal infection: buttocks affected with satellite lesions to the perineum. Resolved. -S/p Nystatin and clotrimazole Weakness: Continue physical therapy Nursing staff to get patient up out of bed at least 3 times daily DVT prophylaxis: SCDs. Avoid chemical prophylaxis secondary to GI bleed. Discharge Planning 12/23/16: CM spoke with patient's son Orlando who states he is able to assist now. CM gave him number of liaison from [facility] to call collin to work on getting placement there. CM also called [place] [facility] to see if they will reevaluate patient. Madeline Ortez Dec 29, 2016 11:00
[2016-12-29 20:00] VITALS: BP 126/79; PULSE 67; RESP 20; TEMP 96.1; O2SAT 98
[2016-12-29] MEDS: MIRTAZAPINE 15 MG TAB PEG SCH (21:47)
[2016-12-30] MEDS: MIDODRINE 5 MG TAB PO SCH ×3 (06:05→17:54)
[2016-12-30 09:00] VITALS: BP 107/75; PULSE 67; RESP 18; TEMP 96.1; O2SAT 98
[2016-12-30] MEDS: FREE WATER G-TUBE SCH (09:00)
[2016-12-30] MEDS: LANSOPRAZOLE SOLUTAB 30 MG TAB PEG SCH (09:25)
[2016-12-30] MEDS: ALLOPURINOL 100 MG TAB PEG SCH (09:25)
--- NOTE | 2016-12-30 11:21 | HHI.PR ---
Subjective Remarks Follow-up for dementia. No acute complaints. Objective Vitals Vital Signs Date Time Temp Pulse Resp B/P (MAP) Pulse Ox O2 Delivery O2 Flow Rate FiO2 12/30/16 09:00 96.1 67 18 107/75 (86) 98 12/29/16 20:00 96.1 67 20 126/79 (95) 98 I/O 12/29/16 12/29/16 12/29/16 12/30/16 12/30/16 12/30/16 07:00 15:00 23:00 07:00 15:00 23:00 Intake Total 380 ml 1880 ml 860 ml 200 ml 560 ml Output Total 400 ml 1100 ml 500 ml Balance -20 ml 1880 ml -240 ml -300 ml 560 ml Intake Oral 0 ml IV Total 0 ml Tube Feeding 240 ml 1080 ml 480 ml 360 ml Tube Irrigant 600 ml 380 ml 200 ml 200 ml Other 140 ml 200 ml Output Urine Total 400 ml 1100 ml 500 ml Stool Total 0 ml # Bowel Movements 1 2 Result Diagram: 12/26/16180112/26/161801 Objective Remarks GENERAL: Elderly male in no apparent distress. SKIN: Redness to the face and neck with flaking skin, stable from prior exam. CARDIOVASCULAR: Regular rate and rhythm. RESPIRATORY: No accessory muscle use. Decreased breath sounds over RLL but CTAB. GASTROINTESTINAL: Abdomen soft, nontender, nondistended. NEURO: Nods to answer questions. Procedures None Urinary Catheter: No Date of Insertion: Dec 08, 2016 Vascular Central Line Catheter: No A/P Assessment and Plan Dementia with inappropriate behavior, mood disorder improved Patient had inappropriate behavior which is resolved now. Patient has been hospitalized for similar events in 2015 Consulted psychiatry for further evaluation, who indicated that this is a frontal lobe dementia. Risperdal was discontinued per POA request. Continue Remeron Psychiatry following; states patient does not have decisional capacity. Palliative care following. Son declines hospice. Protein calorie malnutrition: Improving Jevity 1.5 w/ bolus 1.5 cans (360ml) @ 0800, 1100 and 1400 and 1 can (240ml) @ 1700 and 2000. Free Water Flush 100ml before and after each bolus feeding. Bit Setter following. Ensure Enlive tid and chocolate pudding tid. Patient desired to eat and speech therapy advised puree diet, thin liquids, but patient has not been eating. Bit Setter suggested considering appetite stimulant. This was discussed with attending, but we do not believe this would be beneficial for patient and would add unnecessary risk to the patient. Will continue with tube feeds only. Hematuria: Resolved. -Patient is not on anticoagulation. -Hemoglobin normal. -Creatinine is normal. -UA 4/5 with innumerable RBCs, but urine sample not grossly bloody. Urinary tract infection, recurrent: Urine culture positive for Proteus mirabilis and GBS on 01/20. Patient completed course of antibiotics. Abdominal pelvis CT 03/06 shows decompressed bladder with circumferential bladder wall thickening and intraluminal air possibly indicating cystitis, but the patient had been afebrile with normal WBC count. Urine culture 05/31 with Serratia marcescens, Pseudomonas, and Enterococcus faecalis. Patient was started on antibiotics. Repeat urine culture on 06/04 only reveals contaminants. Urine culture /5 with Enterococcus faecalis and Pseudomonas Aeruginosa similar to previous culture on 05/31. Patient remains afebrile. CBC with normal white blood cell count. Continue to change Soto monthly. 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 Monitor and treat only if symptomatic. Mild obstructive uropathy: Resolved. Appreciate urology recommendations. Suprapubic catheter to be changed monthly; last changed 12/08/16. Abdominal pelvis CT 03/06/16 shows resolution of right sided hydronephrosis. Upper GI bleeding with recurrent rectal bleeding: Resolved. Hemoglobin stable. GI reevaluated patient on 05/04. Presumed hemorrhoids, s/p Anusol HC for total of 2 weeks. Continue PPI. Seborrheic dermatitis: Stable S/p Ketoconazole 2% shampoo, hydrocortisone lotion, and multiple courses of hydrocortisone cream. Continue washing face regularly Chalazion: Nodule R upper eyelid. No evidence of preseptal cellulitis. -Warm compresses were applied but it was greater than 2 weeks without significant improvement. -Ophthalmology was consulted and evaluated patient on 03/26. S/p Tobradex 4 times a day OD x 2 weeks. Patient was intermittently compliant with eyedrops. -No worsening. Follow-up outpatient. Hypotension: chronic Blood pressure labile. Continue Midodrine. Patient on max dose. Increase free water flushes as needed. Pre-renal azotemia: Improved Continue free water flushes Stage I decubitus ulcer, sacral skin tear: Continue wound care, barrier cream Frequent turning of patient. Candidal infection: buttocks affected with satellite lesions to the perineum. Resolved. -S/p Nystatin and clotrimazole Weakness: Continue physical therapy Nursing staff to get patient up out of bed at least 3 times daily DVT prophylaxis: SCDs. Avoid chemical prophylaxis secondary to GI bleed. Discharge Planning 12/23/16: CM spoke with patient's son Orlando who states he is able to assist now. CM gave him number of liaison from [facility] to call collin to work on getting placement there. CM also called [place] [facility] to see if they will reevaluate patient. Madeline Ortez Dec 30, 2016 11:21
[2016-12-30 20:00] VITALS: BP 106/68; PULSE 67; RESP 18; TEMP 96.7; O2SAT 94
[2016-12-30] MEDS: MIRTAZAPINE 15 MG TAB PEG SCH (20:32)
[2016-12-31] MEDS: MIDODRINE 5 MG TAB PO SCH ×3 (06:14→17:46)
[2016-12-31] MEDS: LANSOPRAZOLE SOLUTAB 30 MG TAB PEG SCH (08:31)
[2016-12-31] MEDS: FREE WATER G-TUBE SCH (08:31)
[2016-12-31] MEDS: ALLOPURINOL 100 MG TAB PEG SCH (08:31)
--- NOTE | 2016-12-31 10:56 | HHI.PR ---
Subjective Remarks Patient seen and examined today for follow-up on profound weakness, nonspecific in patient care, dementia. Patient denies any new complaints. Absolutely no change in patient's clinical status. Objective Vitals Vital Signs Date Time Temp Pulse Resp B/P (MAP) Pulse Ox O2 Delivery O2 Flow Rate FiO2 12/30/16 20:00 96.7 67 18 106/68 (81) 94 I/O 12/30/16 12/30/16 12/30/16 12/31/16 12/31/16 12/31/16 07:00 15:00 23:00 07:00 15:00 23:00 Intake Total 200 ml 560 ml 1560 ml 540 ml 200 ml Output Total 500 ml 700 ml 800 ml Balance -300 ml 560 ml 860 ml -260 ml 200 ml Intake Oral 0 ml Tube Feeding 360 ml 960 ml 240 ml Tube Irrigant 200 ml 200 ml 600 ml 300 ml Other 200 ml Output Urine Total 500 ml 700 ml 800 ml # Bowel Movements 2 1 Objective Remarks GENERAL: Well-developed, well-nourished, in no acute distress. HEENT: Head is normocephalic without any lesions or masses noted. Facial features are symmetric. Eyes: Extraocular muscles are intact. Conjunctivae were clear. NECK: Trachea midline no deviation. CARDIAC: Regular rhythm, regular rate. S1/S2 are heard. No murmurs gallops or rubs. LUNGS: Clear to auscultation bilaterally. No wheeze, rhonchi or rales. No use of accessory muscles on inspiration or expiration. ABDOMEN: Soft, nontender. Nondistended. Bowel sounds heard in all 4 quadrants. No organomegaly or masses. Negative rebound, negative guarding, suprapubic catheter in place, PEG tube in place with no signs of infection, EXTREMITIES: No edema, pulses are equal bilaterally. No cyanosis or clubbing NEUROLOGY: Mood and affect appear appropriate. Cranial nerves II through XII grossly intact. Moving all extremities Procedures None Urinary Catheter: Yes (suprapubic catheter) Assessment to: Continue Soto insert reason: Obstruction/Retention Date of Insertion: Dec 08, 2016 Vascular Central Line Catheter: No A/P Assessment and Plan Weakness: Continue physical therapy Nursing staff to get patient up out of bed at least 3 times daily Patient refusing care, refusing to get out of bed with nursing staff and physical therapy. With outpatient participating in medical management, patient will never improve will only worsen. We'll consult palliative care for recommendations Palliative care instructed me to consult psychiatry to see if patient has capacity to make decisions. Psychiatry evaluated patient states that he does not have capacity make his own decisions Palliative care discussed with family who is declining transition to comfort care, hospice. Dementia with inappropriate behavior, mood disorder improved Patient has been hospitalized for similar events in 2015 Consulted psychiatry for further evaluation, who indicated that this is a frontal lobe dementia Risperdal discontinued at family's request Continue Remeron Parkinson's disease: Patient has dementia and resting tremor. Chronic, stable. GI bleed with presenting of Upper GI bleed, patient with intermittent rectal bleeding: Follow-up hemoglobin has remained stable GI was following and reevaluated on 05/04/16 Presumed hemorrhoids, status post Anusol HC for 2 weeks Continue PPI. Protein calorie malnutrition: Improving Consulted dietitian who indicated that patient may be converted to bolus feeding Jevity 1.5, 1.5, 360ml(1.5 cans)@ 0800, 1100, 1400 and 240ml(1-can)@ 1700 and 2000 Prealbumin level 25 Ensure Enlive 3 times a day since pudding 3 times a day PEG tube replaced 11/20/16 Mild pink coloration around PEG tube, instructed nursing staff to clean daily and monitor for infection Hypotension with episodes of hypertension: Stable Continue monitor blood pressure Continue Midodrine. Mild obstructive uropathy: Resolved. With recurrent urinary tract infections. Treat only if symptomatic Suprapubic catheter in place, changed monthly, last changed 12/08/[address] 03/06/16 shows resolution of right sided hydronephrosis. Site around the catheter does have some serosanguineous dried fluid. Instructed nursing staff to clean daily and monitor for infection Seborrhea dermatitis, recurrent Status post Hydrocortisone cream for 2 weeks Counseled nursing staff on proper hygiene to avoid recurrence DVT prophylaxis: SCDs. Avoid chemical prophylaxis secondary to GI bleed. Discharge Planning Discharge planning per case management. Jaguar Walker Dec 31, 2016 10:56
[2016-12-31 12:16] VITALS: BP 112/83; PULSE 68; RESP 20; TEMP 97.2; O2SAT 99
[2016-12-31 20:00] VITALS: BP 102/70; PULSE 73; RESP 20; TEMP 98.1; O2SAT 93
[2016-12-31] MEDS: MIRTAZAPINE 15 MG TAB PEG SCH (20:50)
[2017-01-01] MEDS: MIDODRINE 5 MG TAB PO SCH ×3 (06:20→17:32)
[2017-01-01 08:00] VITALS: BP 118/76; PULSE 80; RESP 17; TEMP 98; O2SAT 96
[2017-01-01] MEDS: ALLOPURINOL 100 MG TAB PEG SCH (08:53)
[2017-01-01] MEDS: LANSOPRAZOLE SOLUTAB 30 MG TAB PEG SCH (08:53)
[2017-01-01] MEDS: FREE WATER G-TUBE SCH (08:54)
--- NOTE | 2017-01-01 11:17 | HHI.PR ---
Subjective Remarks Patient is examined today for follow-up on profound weakness, dementia, refusal to anticipate in patient care. Patient denies any new complaints today. No change in clinical status or willingness to participate in physical therapy Objective Vitals Vital Signs Date Time Temp Pulse Resp B/P (MAP) Pulse Ox O2 Delivery O2 Flow Rate FiO2 01/01/17 08:00 98.0 80 17 118/76 (90) 96 12/31/16 20:00 98.1 73 20 102/70 (81) 93 12/31/16 12:16 97.2 68 20 112/83 (93) 99 I/O 12/31/16 12/31/16 12/31/16 01/01/17 01/01/17 01/01/17 07:00 15:00 23:00 07:00 15:00 23:00 Intake Total 540 ml 200 ml 540 ml Output Total 800 ml 400 ml 925 ml Balance -260 ml 200 ml -400 ml -385 ml Intake Oral 0 ml 0 ml Tube Feeding 240 ml 240 ml Tube Irrigant 300 ml 300 ml Other 200 ml Output Urine Total 800 ml 400 ml 925 ml # Voids 0 # Bowel Movements 4 Objective Remarks GENERAL: Well-developed, well-nourished, in no acute distress. HEENT: Head is normocephalic without any lesions or masses noted. Facial features are symmetric. Eyes: Extraocular muscles are intact. Conjunctivae were clear. NECK: Trachea midline no deviation. CARDIAC: Regular rhythm, regular rate. S1/S2 are heard. No murmurs gallops or rubs. LUNGS: Clear to auscultation bilaterally. No wheeze, rhonchi or rales. No use of accessory muscles on inspiration or expiration. ABDOMEN: Soft, nontender. Nondistended. Bowel sounds heard in all 4 quadrants. No organomegaly or masses. Negative rebound, negative guarding, suprapubic catheter in place, PEG tube in place with no signs of infection, EXTREMITIES: No edema, pulses are equal bilaterally. No cyanosis or clubbing NEUROLOGY: Mood and affect appear appropriate. Cranial nerves II through XII grossly intact. Moving all extremities Procedures None Urinary Catheter: Yes (suprapubic catheter) Assessment to: Continue Soto insert reason: Obstruction/Retention Date of Insertion: Dec 08, 2016 Vascular Central Line Catheter: No A/P Assessment and Plan Weakness: Continue physical therapy Nursing staff to get patient up out of bed at least 3 times daily Patient refusing care, refusing to get out of bed with nursing staff and physical therapy, patient will never improve will only worsen. Consulted palliative care for recommendations Palliative care requested consult with psychiatry to see if patient has capacity to make decisions. Psychiatry evaluated patient states that he does not have capacity make his own decisions Palliative care discussed with family who is declining transition to comfort care, hospice. Dementia with inappropriate behavior, mood disorder improved Patient has been hospitalized for similar events in 2014 Consulted psychiatry for further evaluation, who indicated that this is a frontal lobe dementia Risperdal discontinued at family's request Continue Remeron Parkinson's disease: Patient has dementia and resting tremor. Chronic, stable. GI bleed with presenting of Upper GI bleed, patient with intermittent rectal bleeding: Follow-up hemoglobin has remained stable GI was following and reevaluated on 05/04/16 Presumed hemorrhoids, status post Anusol HC for 2 weeks Continue PPI. Protein calorie malnutrition: Improving Consulted dietitian who indicated that patient may be converted to bolus feeding Jevity 1.5, 1.5, 360ml(1.5 cans)@ 0800, 1100, 1400 and 240ml(1-can)@ 1700 and 2000 Prealbumin level 25 Ensure Enlive 3 times a day since pudding 3 times a day PEG tube replaced 11/20/16 Mild pink coloration around PEG tube, instructed nursing staff to clean daily and monitor for infection Hypotension with episodes of hypertension: Stable Continue monitor blood pressure Continue Midodrine. Mild obstructive uropathy: Resolved. With recurrent urinary tract infections. Treat only if symptomatic Suprapubic catheter in place, changed monthly, last changed 12/08/[address] 03/06/16 shows resolution of right sided hydronephrosis. Site around the catheter does have some serosanguineous dried fluid. Instructed nursing staff to clean daily and monitor for infection Seborrhea dermatitis, recurrent Status post Hydrocortisone cream for 2 weeks Counseled nursing staff on proper hygiene to avoid recurrence DVT prophylaxis: SCDs. Avoid chemical prophylaxis secondary to GI bleed. Discharge Planning Discharge planning per case management. Jaguar Walker Jan 01, 2017 11:17
[2017-01-01 20:00] VITALS: BP 113/72; PULSE 76; RESP 18; TEMP 96.9; O2SAT 94
[2017-01-01] MEDS: MIRTAZAPINE 15 MG TAB PEG SCH (20:11)
[2017-01-02] MEDS: MIDODRINE 5 MG TAB PO SCH ×3 (06:02→17:53)
[2017-01-02] MEDS: LANSOPRAZOLE SOLUTAB 30 MG TAB PEG SCH (07:44)
[2017-01-02] MEDS: ALLOPURINOL 100 MG TAB PEG SCH (07:44)
[2017-01-02] MEDS: FREE WATER G-TUBE SCH (07:46)
[2017-01-02 08:00] VITALS: BP 114/86; PULSE 70; RESP 16; TEMP 97.2; O2SAT 96
--- NOTE | 2017-01-02 10:47 | HHI.PR ---
Subjective Remarks Patient seen and examined today for follow-up on profound weakness, failure to participate in care. Patient lying in bed. Denies any new complaints. No change in clinical status. Awaiting case management for discharge planning. Objective Vitals Vital Signs Date Time Temp Pulse Resp B/P (MAP) Pulse Ox O2 Delivery O2 Flow Rate FiO2 01/02/17 08:00 97.2 70 16 114/86 (95) 96 01/01/17 20:00 96.9 76 18 113/72 (86) 94 I/O 01/01/17 01/01/17 01/01/17 01/02/17 01/02/17 01/02/17 06:59 14:59 22:59 06:59 14:59 22:59 Intake Total 540 ml 680 ml 0 ml Output Total 925 ml 950 ml 100 ml Balance -385 ml 680 ml -950 ml -100 ml Intake Oral 0 ml 0 ml Tube Feeding 240 ml 480 ml Tube Irrigant 300 ml Other 200 ml Output Urine Total 925 ml 950 ml 100 ml # Bowel Movements 4 1 0 Objective Remarks GENERAL: Well-developed, well-nourished, in no acute distress. HEENT: Head is normocephalic without any lesions or masses noted. Facial features are symmetric. Eyes: Extraocular muscles are intact. Conjunctivae were clear. NECK: Trachea midline no deviation. CARDIAC: Regular rhythm, regular rate. S1/S2 are heard. No murmurs gallops or rubs. LUNGS: Clear to auscultation bilaterally. No wheeze, rhonchi or rales. No use of accessory muscles on inspiration or expiration. ABDOMEN: Soft, nontender. Nondistended. Bowel sounds heard in all 4 quadrants. No organomegaly or masses. Negative rebound, negative guarding, suprapubic catheter in place, PEG tube in place with no signs of infection, EXTREMITIES: No edema, pulses are equal bilaterally. No cyanosis or clubbing NEUROLOGY: Mood and affect appear appropriate. Cranial nerves II through XII grossly intact. Moving all extremities Procedures None Urinary Catheter: Yes (suprapubic catheter) Assessment to: Continue Soto insert reason: Obstruction/Retention Date of Insertion: Dec 08, 2016 Vascular Central Line Catheter: No A/P Assessment and Plan Weakness: Continue physical therapy Nursing staff to get patient up out of bed at least 3 times daily Patient refusing care, refusing to get out of bed with nursing staff and physical therapy, patient will never improve will only worsen. Consulted palliative care for recommendations Palliative care requested consult with psychiatry to see if patient has capacity to make decisions. Psychiatry evaluated patient states that he does not have capacity make his own decisions Palliative care discussed with family who is declining transition to comfort care, hospice. Dementia with inappropriate behavior, mood disorder improved Patient has been hospitalized for similar events in 2015 Consulted psychiatry for further evaluation, who indicated that this is a frontal lobe dementia Risperdal discontinued at family's request Continue Remeron Parkinson's disease: Patient has dementia and resting tremor. Chronic, stable. GI bleed with presenting of Upper GI bleed, patient with intermittent rectal bleeding: Follow-up hemoglobin has remained stable GI was following and reevaluated on 05/04/16 Presumed hemorrhoids, status post Anusol HC for 2 weeks Continue PPI. Protein calorie malnutrition: Improving Consulted dietitian who indicated that patient may be converted to bolus feeding Jevity 1.5, 1.5, 360ml(1.5 cans)@ 0800, 1100, 1400 and 240ml(1-can)@ 1700 and 2000 Prealbumin level 25 Ensure Enlive 3 times a day since pudding 3 times a day PEG tube replaced 11/20/16 Mild pink coloration around PEG tube, instructed nursing staff to clean daily and monitor for infection Hypotension with episodes of hypertension: Stable Continue monitor blood pressure Continue Midodrine. Mild obstructive uropathy: Resolved. With recurrent urinary tract infections. Treat only if symptomatic Suprapubic catheter in place, changed monthly, last changed 12/08/[address] 03/06/16 shows resolution of right sided hydronephrosis. Site around the catheter does have some serosanguineous dried fluid. Instructed nursing staff to clean daily and monitor for infection Seborrhea dermatitis, recurrent Status post Hydrocortisone cream for 2 weeks Counseled nursing staff on proper hygiene to avoid recurrence DVT prophylaxis: SCDs. Avoid chemical prophylaxis secondary to GI bleed. Discharge Planning Discharge planning per case management. Jaguar Walker Jan 02, 2017 10:47
[2017-01-02 20:00] VITALS: BP 124/79; PULSE 86; RESP 18; TEMP 97.7; O2SAT 94
[2017-01-02] MEDS: MIRTAZAPINE 15 MG TAB PEG SCH (22:52)
[2017-01-03] MEDS: MIDODRINE 5 MG TAB PO SCH ×3 (05:24→17:46)
[2017-01-03 08:00] VITALS: BP 120/72; PULSE 80; RESP 16; TEMP 97.8; O2SAT 96
[2017-01-03] MEDS: ALLOPURINOL 100 MG TAB PEG SCH (08:35)
[2017-01-03] MEDS: FREE WATER G-TUBE SCH (08:35)
[2017-01-03] MEDS: LANSOPRAZOLE SOLUTAB 30 MG TAB PEG SCH (08:35)
--- NOTE | 2017-01-03 11:13 | HHI.PR ---
Subjective Remarks Patient seen and examined today for follow-up on profound weakness, dementia. Patient denies any new complaints. No change in clinical status. Awaiting case management for discharge planning. Objective Vitals Vital Signs Date Time Temp Pulse Resp B/P (MAP) Pulse Ox O2 Delivery O2 Flow Rate FiO2 01/03/17 08:00 97.8 80 16 120/72 (88) 96 01/02/17 20:00 97.7 86 18 124/79 (94) 94 I/O 01/02/17 01/02/17 01/02/17 01/03/17 01/03/17 01/03/17 06:59 14:59 22:59 06:59 14:59 22:59 Intake Total 0 ml 2120 ml 390 ml Output Total 950 ml 100 ml 750 ml 550 ml Balance -950 ml -100 ml 1370 ml -160 ml Intake Oral 0 ml 0 ml Tube Feeding 1320 ml 240 ml Other 800 ml 150 ml Output Urine Total 950 ml 100 ml 750 ml 550 ml # Voids 3 # Bowel Movements 2 Objective Remarks GENERAL: Well-developed, well-nourished, in no acute distress. HEENT: Head is normocephalic without any lesions or masses noted. Facial features are symmetric. Eyes: Extraocular muscles are intact. Conjunctivae were clear. NECK: Trachea midline no deviation. CARDIAC: Regular rhythm, regular rate. S1/S2 are heard. No murmurs gallops or rubs. LUNGS: Clear to auscultation bilaterally. No wheeze, rhonchi or rales. No use of accessory muscles on inspiration or expiration. ABDOMEN: Soft, nontender. Nondistended. Bowel sounds heard in all 4 quadrants. No organomegaly or masses. Negative rebound, negative guarding, suprapubic catheter in place, PEG tube in place with no signs of infection, EXTREMITIES: No edema, pulses are equal bilaterally. No cyanosis or clubbing NEUROLOGY: Mood and affect appear appropriate. Cranial nerves II through XII grossly intact. Moving all extremities Procedures None Urinary Catheter: Yes (suprapubic catheter) Assessment to: Continue Date of Insertion: Dec 08, 2016 Vascular Central Line Catheter: No A/P Assessment and Plan Weakness: Continue physical therapy Nursing staff to get patient up out of bed at least 3 times daily Patient refusing care, refusing to get out of bed with nursing staff and physical therapy, patient will never improve will only worsen. Consulted palliative care for recommendations Palliative care requested consult with psychiatry to see if patient has capacity to make decisions. Psychiatry evaluated patient states that he does not have capacity make his own decisions Palliative care discussed with family who is declining transition to comfort care, hospice. Dementia with inappropriate behavior, mood disorder improved Patient has been hospitalized for similar events in 2015 Consulted psychiatry for further evaluation, who indicated that this is a frontal lobe dementia Risperdal discontinued at family's request Continue Remeron Parkinson's disease: Patient has dementia and resting tremor. Chronic, stable. GI bleed with presenting of Upper GI bleed, patient with intermittent rectal bleeding: Follow-up hemoglobin has remained stable GI was following and reevaluated on 05/04/16 Presumed hemorrhoids, status post Anusol HC for 2 weeks Continue PPI. Protein calorie malnutrition: Improving Consulted dietitian who indicated that patient may be converted to bolus feeding Jevity 1.5, 1.5, 360ml(1.5 cans)@ 0800, 1100, 1400 and 240ml(1-can)@ 1700 and 2000 Prealbumin level 25 Ensure Enlive 3 times a day since pudding 3 times a day PEG tube replaced 11/20/16 Mild pink coloration around PEG tube, instructed nursing staff to clean daily and monitor for infection Hypotension with episodes of hypertension: Stable Continue monitor blood pressure Continue Midodrine. Mild obstructive uropathy: Resolved. With recurrent urinary tract infections. Treat only if symptomatic Suprapubic catheter in place, changed monthly, last changed 12/08/[address] 03/06/16 shows resolution of right sided hydronephrosis. Site around the catheter does have some serosanguineous dried fluid. Instructed nursing staff to clean daily and monitor for infection Seborrhea dermatitis, recurrent Status post Hydrocortisone cream for 2 weeks Counseled nursing staff on proper hygiene to avoid recurrence DVT prophylaxis: SCDs. Avoid chemical prophylaxis secondary to GI bleed. Discharge Planning Discharge planning per case management. Jaguar Walker Jan 03, 2017 11:13
[2017-01-03 20:00] VITALS: BP 111/72; PULSE 82; RESP 22; TEMP 96.9; O2SAT 95
[2017-01-03] MEDS: MIRTAZAPINE 15 MG TAB PEG SCH (20:53)
[2017-01-04] MEDS: MIDODRINE 5 MG TAB PO SCH ×3 (05:28→16:27)
[2017-01-04] MEDS: ALLOPURINOL 100 MG TAB PEG SCH (07:16)
[2017-01-04] MEDS: FREE WATER G-TUBE SCH (07:16)
[2017-01-04] MEDS: LANSOPRAZOLE SOLUTAB 30 MG TAB PEG SCH (07:16)
--- NOTE | 2017-01-04 08:25 | HHI.PR ---
Subjective Remarks Patient seen and examined today for follow-up on weakness, dementia. Patient denies any new complaints. No change in clinical status. Awaiting case management for discharge planning. Objective Vitals Vital Signs Date Time Temp Pulse Resp B/P (MAP) Pulse Ox O2 Delivery O2 Flow Rate FiO2 01/03/17 20:00 96.9 82 22 111/72 (85) 95 I/O 01/03/17 01/03/17 01/03/17 01/04/17 01/04/17 01/04/17 06:59 14:59 22:59 06:59 14:59 22:59 Intake Total 390 ml 2180 ml 440 ml Output Total 550 ml 950 ml 450 ml Balance -160 ml 1230 ml -10 ml Intake Oral 0 ml Tube Feeding 240 ml 1320 ml 240 ml Other 150 ml 860 ml 200 ml Output Urine Total 550 ml 950 ml 450 ml # Bowel Movements 2 1 1 Objective Remarks GENERAL: Well-developed, well-nourished, in no acute distress. HEENT: Head is normocephalic without any lesions or masses noted. Facial features are symmetric. Eyes: Extraocular muscles are intact. Conjunctivae were clear. NECK: Trachea midline no deviation. CARDIAC: Regular rhythm, regular rate. S1/S2 are heard. No murmurs gallops or rubs. LUNGS: Clear to auscultation bilaterally. No wheeze, rhonchi or rales. No use of accessory muscles on inspiration or expiration. ABDOMEN: Soft, nontender. Nondistended. Bowel sounds heard in all 4 quadrants. No organomegaly or masses. Negative rebound, negative guarding, suprapubic catheter in place, PEG tube in place with no signs of infection, EXTREMITIES: No edema, pulses are equal bilaterally. No cyanosis or clubbing NEUROLOGY: Mood and affect appear appropriate. Cranial nerves II through XII grossly intact. Moving all extremities Procedures None Urinary Catheter: No Date of Insertion: Dec 08, 2016 Vascular Central Line Catheter: No A/P Assessment and Plan Weakness: Continue physical therapy Nursing staff to get patient up out of bed at least 3 times daily Patient refusing care, refusing to get out of bed with nursing staff and physical therapy, patient will never improve will only worsen. Consulted palliative care for recommendations Palliative care requested consult with psychiatry to see if patient has capacity to make decisions. Psychiatry evaluated patient states that he does not have capacity make his own decisions Palliative care discussed with family who is declining transition to comfort care, hospice. Dementia with inappropriate behavior, mood disorder improved Patient has been hospitalized for similar events in 2015 Consulted psychiatry for further evaluation, who indicated that this is a frontal lobe dementia Risperdal discontinued at family's request Continue Remeron Parkinson's disease: Patient has dementia and resting tremor. Chronic, stable. GI bleed with presenting of Upper GI bleed, patient with intermittent rectal bleeding: Follow-up hemoglobin has remained stable GI was following and reevaluated on 05/04/16 Presumed hemorrhoids, status post Anusol HC for 2 weeks Continue PPI. Protein calorie malnutrition: Improving Consulted dietitian who indicated that patient may be converted to bolus feeding Jevity 1.5, 1.5, 360ml(1.5 cans)@ 0800, 1100, 1400 and 240ml(1-can)@ 1700 and 2000 Prealbumin level 25 Ensure Enlive 3 times a day since pudding 3 times a day PEG tube replaced 11/20/16 Mild pink coloration around PEG tube, instructed nursing staff to clean daily and monitor for infection Hypotension with episodes of hypertension: Stable Continue monitor blood pressure Continue Midodrine. Mild obstructive uropathy: Resolved. With recurrent urinary tract infections. Treat only if symptomatic Suprapubic catheter in place, changed monthly, last changed 12/08/[address] 03/06/16 shows resolution of right sided hydronephrosis. Site around the catheter does have some serosanguineous dried fluid. Instructed nursing staff to clean daily and monitor for infection Seborrhea dermatitis, recurrent Status post Hydrocortisone cream for 2 weeks Counseled nursing staff on proper hygiene to avoid recurrence DVT prophylaxis: SCDs. Avoid chemical prophylaxis secondary to GI bleed. Discharge Planning Discharge planning per case management. Jaguar Walker Jan 04, 2017 08:25
[2017-01-04 08:44] VITALS: BP 126/73; PULSE 68; RESP 20; TEMP 97.2; O2SAT 98
[2017-01-04 20:00] VITALS: BP 105/68; PULSE 68; RESP 20; TEMP 96.3; O2SAT 95
[2017-01-04] MEDS: MIRTAZAPINE 15 MG TAB PEG SCH (20:18)
[2017-01-05] MEDS: MIDODRINE 5 MG TAB PO SCH ×3 (06:35→16:59)
[2017-01-05] MEDS: FREE WATER G-TUBE SCH (07:54)
[2017-01-05] MEDS: ALLOPURINOL 100 MG TAB PEG SCH (07:55)
[2017-01-05] MEDS: LANSOPRAZOLE SOLUTAB 30 MG TAB PEG SCH (07:55)
[2017-01-05 08:25] VITALS: BP 121/77; PULSE 68; RESP 16; TEMP 97.2; O2SAT 98
--- NOTE | 2017-01-05 13:41 | HHI.PR ---
Subjective Remarks Patient examined today for follow-up on weakness, dementia. Patient has any new complaints. No change in clinical status. Awaiting geriatric case manager discharge planning. Objective Vitals Vital Signs Date Time Temp Pulse Resp B/P (MAP) Pulse Ox O2 Delivery O2 Flow Rate FiO2 01/05/17 08:25 97.2 68 16 121/77 (92) 98 01/04/17 20:00 96.3 68 20 105/68 (80) 95 I/O 01/04/17 01/04/17 01/04/17 01/05/17 01/05/17 01/05/17 07:00 15:00 23:00 07:00 15:00 23:00 Intake Total 440 ml 0 ml Output Total 450 ml 975 ml 400 ml Balance -10 ml -975 ml -400 ml Intake Oral 0 ml Tube Feeding 240 ml Other 200 ml Output Urine Total 450 ml 975 ml 400 ml Stool Total 0 ml # Voids 0 # Bowel Movements 1 3 1 Objective Remarks GENERAL: Well-developed, well-nourished, in no acute distress. HEENT: Head is normocephalic without any lesions or masses noted. Facial features are symmetric. Eyes: Extraocular muscles are intact. Conjunctivae were clear. NECK: Trachea midline no deviation. CARDIAC: Regular rhythm, regular rate. S1/S2 are heard. No murmurs gallops or rubs. LUNGS: Clear to auscultation bilaterally. No wheeze, rhonchi or rales. No use of accessory muscles on inspiration or expiration. ABDOMEN: Soft, nontender. Nondistended. Bowel sounds heard in all 4 quadrants. No organomegaly or masses. Negative rebound, negative guarding, suprapubic catheter in place, PEG tube in place with no signs of infection, EXTREMITIES: No edema, pulses are equal bilaterally. No cyanosis or clubbing NEUROLOGY: Mood and affect appear appropriate. Cranial nerves II through XII grossly intact. Moving all extremities Procedures None Urinary Catheter: Yes (suprapubic catheter) Assessment to: Continue Soto insert reason: Obstruction/Retention Date of Insertion: Dec 08, 2016 Vascular Central Line Catheter: No A/P Assessment and Plan Weakness: Continue physical therapy Nursing staff to get patient up out of bed at least 3 times daily Patient refusing care, refusing to get out of bed with nursing staff and physical therapy, patient will never improve will only worsen. Consulted palliative care for recommendations Palliative care requested consult with psychiatry to see if patient has capacity to make decisions. Psychiatry evaluated patient states that he does not have capacity make his own decisions Palliative care discussed with family who is declining transition to comfort care, hospice. Dementia with inappropriate behavior, mood disorder improved Patient has been hospitalized for similar events in 2014 Consulted psychiatry for further evaluation, who indicated that this is a frontal lobe dementia Risperdal discontinued at family's request Continue Remeron Parkinson's disease: Patient has dementia and resting tremor. Chronic, stable. GI bleed with presenting of Upper GI bleed, patient with intermittent rectal bleeding: Follow-up hemoglobin has remained stable GI was following and reevaluated on 05/04/16 Presumed hemorrhoids, status post Anusol HC for 2 weeks Continue PPI. Protein calorie malnutrition: Improving Consulted dietitian who indicated that patient may be converted to bolus feeding Jevity 1.5, 1.5, 360ml(1.5 cans)@ 0800, 1100, 1400 and 240ml(1-can)@ 1700 and 2000 Prealbumin level 25 Ensure Enlive 3 times a day since pudding 3 times a day PEG tube replaced 11/20/16 Mild pink coloration around PEG tube, instructed nursing staff to clean daily and monitor for infection Hypotension with episodes of hypertension: Stable Continue monitor blood pressure Continue Midodrine. Mild obstructive uropathy: Resolved. With recurrent urinary tract infections. Treat only if symptomatic Suprapubic catheter in place, changed monthly, last changed 12/08/[address] 03/06/16 shows resolution of right sided hydronephrosis. Site around the catheter does have some serosanguineous dried fluid. Instructed nursing staff to clean daily and monitor for infection Seborrhea dermatitis, recurrent Status post Hydrocortisone cream for 2 weeks Counseled nursing staff on proper hygiene to avoid recurrence DVT prophylaxis: SCDs. Avoid chemical prophylaxis secondary to GI bleed. Discharge Planning Discharge planning per case management. Jaguar Walker Jan 05, 2017 13:41
[2017-01-05 20:00] VITALS: BP 104/70; PULSE 67; RESP 20; TEMP 96.6; O2SAT 95
[2017-01-05] MEDS: MIRTAZAPINE 15 MG TAB PEG SCH (20:13)
[2017-01-06] MEDS: MIDODRINE 5 MG TAB PO SCH ×3 (06:03→16:27)
[2017-01-06] MEDS: FREE WATER G-TUBE SCH (07:24)
[2017-01-06] MEDS: ALLOPURINOL 100 MG TAB PEG SCH (07:26)
[2017-01-06] MEDS: LANSOPRAZOLE SOLUTAB 30 MG TAB PEG SCH (07:26)
[2017-01-06 08:00] VITALS: BP 107/68; PULSE 80; RESP 18; TEMP 97; O2SAT 95
--- NOTE | 2017-01-06 10:41 | HHI.PR ---
Subjective Remarks Patient seen and examined today in follow-up for weakness, dementia. Patient lying in bed comfortably. Denies any new complaints. No change in clinical status. Awaiting case management for discharge planning Objective Vitals Vital Signs Date Time Temp Pulse Resp B/P (MAP) Pulse Ox O2 Delivery O2 Flow Rate FiO2 01/06/17 08:00 97.0 80 18 107/68 (81) 95 01/05/17 20:00 96.6 67 20 104/70 (81) 95 I/O 01/05/17 01/05/17 01/05/17 01/06/17 01/06/17 01/06/17 07:00 15:00 23:00 07:00 15:00 23:00 Intake Total 0 ml 2120 ml 0 ml Output Total 400 ml 850 ml 400 ml Balance -400 ml 1270 ml -400 ml Intake Oral 0 ml 0 ml Tube Feeding 1320 ml Other 800 ml Output Urine Total 400 ml 850 ml 400 ml # Bowel Movements 1 1 0 Objective Remarks GENERAL: Well-developed, well-nourished, in no acute distress. HEENT: Head is normocephalic without any lesions or masses noted. Facial features are symmetric. Eyes: Extraocular muscles are intact. Conjunctivae were clear. NECK: Trachea midline no deviation. CARDIAC: Regular rhythm, regular rate. S1/S2 are heard. No murmurs gallops or rubs. LUNGS: Clear to auscultation bilaterally. No wheeze, rhonchi or rales. No use of accessory muscles on inspiration or expiration. ABDOMEN: Soft, nontender. Nondistended. Bowel sounds heard in all 4 quadrants. No organomegaly or masses. Negative rebound, negative guarding, suprapubic catheter in place, PEG tube in place with no signs of infection, EXTREMITIES: No edema, pulses are equal bilaterally. No cyanosis or clubbing NEUROLOGY: Mood and affect appear appropriate. Cranial nerves II through XII grossly intact. Moving all extremities Procedures None Urinary Catheter: Yes Assessment to: Continue Soto insert reason: Obstruction/Retention Date of Insertion: Dec 08, 2016 Vascular Central Line Catheter: No A/P Assessment and Plan Weakness: Continue physical therapy Nursing staff to get patient up out of bed at least 3 times daily Patient refusing care, refusing to get out of bed with nursing staff and physical therapy, patient will never improve will only worsen. Consulted palliative care for recommendations Palliative care requested consult with psychiatry to see if patient has capacity to make decisions. Psychiatry evaluated patient states that he does not have capacity make his own decisions Palliative care discussed with family who is declining transition to comfort care, hospice. Dementia with inappropriate behavior, mood disorder improved Patient has been hospitalized for similar events in 2015 Consulted psychiatry for further evaluation, who indicated that this is a frontal lobe dementia Risperdal discontinued at family's request Continue Remeron Parkinson's disease: Patient has dementia and resting tremor. Chronic, stable. GI bleed with presenting of Upper GI bleed, patient with intermittent rectal bleeding: Follow-up hemoglobin has remained stable GI was following and reevaluated on 05/04/16 Presumed hemorrhoids, status post Anusol HC for 2 weeks Continue PPI. Protein calorie malnutrition: Improving Consulted dietitian who indicated that patient may be converted to bolus feeding Jevity 1.5, 1.5, 360ml(1.5 cans)@ 0800, 1100, 1400 and 240ml(1-can)@ 1700 and 2000 Prealbumin level 25 Ensure Enlive 3 times a day since pudding 3 times a day PEG tube replaced 11/20/16 Mild pink coloration around PEG tube, instructed nursing staff to clean daily and monitor for infection Hypotension with episodes of hypertension: Stable Continue monitor blood pressure Continue Midodrine. Mild obstructive uropathy: Resolved. With recurrent urinary tract infections. Treat only if symptomatic Suprapubic catheter in place, changed monthly, last changed 12/08/[address] 03/06/16 shows resolution of right sided hydronephrosis. Site around the catheter does have some serosanguineous dried fluid. Instructed nursing staff to clean daily and monitor for infection Seborrhea dermatitis, recurrent Status post Hydrocortisone cream for 2 weeks Counseled nursing staff on proper hygiene to avoid recurrence DVT prophylaxis: SCDs. Avoid chemical prophylaxis secondary to GI bleed. Discharge Planning Discharge planning per case management. Jaguar Walker Jan 06, 2017 10:41
[2017-01-06 20:15] VITALS: BP 117/63; PULSE 69; RESP 20; TEMP 97; O2SAT 98
[2017-01-06] MEDS: MIRTAZAPINE 15 MG TAB PEG SCH (22:34)
[2017-01-07] MEDS: MIDODRINE 5 MG TAB PO SCH ×3 (04:44→17:26)
[2017-01-07 08:25] VITALS: BP 114/74; PULSE 67; RESP 16; TEMP 98.3; O2SAT 97
[2017-01-07] MEDS: ALLOPURINOL 100 MG TAB PEG SCH (08:28)
[2017-01-07] MEDS: LANSOPRAZOLE SOLUTAB 30 MG TAB PEG SCH (08:28)
[2017-01-07] MEDS: FREE WATER G-TUBE SCH (08:28)
--- NOTE | 2017-01-07 11:23 | HHI.PR ---
Subjective Remarks Follow up for dementia. No acute complaints. Objective Vitals Vital Signs Date Time Temp Pulse Resp B/P (MAP) Pulse Ox O2 Delivery O2 Flow Rate FiO2 01/07/17 08:25 98.3 67 16 114/74 (87) 97 01/06/17 20:15 97.0 69 20 117/63 (81) 98 I/O 01/06/17 01/06/17 01/06/17 01/07/17 01/07/17 01/07/17 07:00 15:00 23:00 07:00 15:00 23:00 Intake Total 0 ml 340 ml 100 ml Output Total 400 ml 1101 ml 1100 ml Balance -400 ml -761 ml -1000 ml Intake Oral 0 ml Tube Feeding 240 ml Other 100 ml 100 ml Output Urine Total 400 ml 1100 ml 1100 ml Stool Total 1 ml # Bowel Movements 0 Objective Remarks GENERAL: Elderly male in no apparent distress. CARDIOVASCULAR: Regular rate and rhythm. RESPIRATORY: No accessory muscle use. Decreased breath sounds over RLL but CTAB. GASTROINTESTINAL: Abdomen soft, nontender, nondistended. NEURO: Nods to answer questions. Procedures None Urinary Catheter: Yes Assessment to: Continue Soto insert reason: Obstruction/Retention Date of Insertion: Dec 08, 2016 Vascular Central Line Catheter: No A/P Assessment and Plan Dementia with inappropriate behavior, mood disorder improved Patient had inappropriate behavior which is resolved now. Patient has been hospitalized for similar events in 2015 Consulted psychiatry for further evaluation, who indicated that this is a frontal lobe dementia. Risperdal was discontinued per POA request. Continue Remeron Psychiatry following; states patient does not have decisional capacity. Palliative care following. Son declines hospice. Protein calorie malnutrition: Improving Jevity 1.5 w/ bolus 1.5 cans (360ml) @ 0800, 1100 and 1400 and 1 can (240ml) @ 1700 and 2000. Free Water Flush 100ml before and after each bolus feeding. [employer] following. Ensure Enlive tid and chocolate pudding tid. Patient desired to eat and speech therapy advised puree diet, thin liquids, but patient has not been eating. [employer] suggested considering appetite stimulant. This was discussed with attending, but we do not believe this would be beneficial for patient and would add unnecessary risk to the patient. Will continue with tube feeds only. Hematuria: Resolved. -Patient is not on anticoagulation. -Hemoglobin normal. -Creatinine is normal. -UA 4/5 with innumerable RBCs, but urine sample not grossly bloody. Urinary tract infection, recurrent: Urine culture positive for Proteus mirabilis and GBS on 01/20. Patient completed course of antibiotics. Abdominal pelvis CT 03/06 shows decompressed bladder with circumferential bladder wall thickening and intraluminal air possibly indicating cystitis, but the patient had been afebrile with normal WBC count. Urine culture 05/31 with Serratia marcescens, Pseudomonas, and Enterococcus faecalis. Patient was started on antibiotics. Repeat urine culture on 06/04 only reveals contaminants. Urine culture /5 with Enterococcus faecalis and Pseudomonas Aeruginosa similar to previous culture on 05/31. Patient remains afebrile. CBC with normal white blood cell count. Continue to change Soto monthly. 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 Monitor and treat only if symptomatic. Mild obstructive uropathy: Resolved. Appreciate urology recommendations. Suprapubic catheter to be changed monthly; change catheter today 01/07, order placed. Abdominal pelvis CT 03/06/16 shows resolution of right sided hydronephrosis. Upper GI bleeding with recurrent rectal bleeding: Resolved. Hemoglobin stable. GI reevaluated patient on 05/04. Presumed hemorrhoids, s/p Anusol HC for total of 2 weeks. Continue PPI. Seborrheic dermatitis: Stable S/p Ketoconazole 2% shampoo, hydrocortisone lotion, and multiple courses of hydrocortisone cream. Continue washing face regularly Chalazion: Nodule R upper eyelid. No evidence of preseptal cellulitis. -Warm compresses were applied but it was greater than 2 weeks without significant improvement. -Ophthalmology was consulted and evaluated patient on 03/26. S/p Tobradex 4 times a day OD x 2 weeks. Patient was intermittently compliant with eyedrops. -No worsening. Follow-up outpatient. Hypotension: chronic Blood pressure labile. Continue Midodrine. Patient on max dose. Increase free water flushes as needed. Pre-renal azotemia: Improved Continue free water flushes Stage I decubitus ulcer, sacral skin tear: Continue wound care, barrier cream Frequent turning of patient. Candidal infection: buttocks affected with satellite lesions to the perineum. Resolved. -S/p Nystatin and clotrimazole Weakness: Continue physical therapy Nursing staff to get patient up out of bed at least 3 times daily DVT prophylaxis: SCDs. Avoid chemical prophylaxis secondary to GI bleed. Discharge Planning 01/02/17: CM continues to try to contact son to assist with placement as a SNF is willing to take patient. CM called [employer]'s office to do well check on son as he hasn't spoken with him in two weeks and has called numerous times. Madeline Ortez Jan 07, 2017 11:22
[2017-01-07 20:00] VITALS: BP 112/70; PULSE 84; RESP 16; TEMP 97.7; O2SAT 95
[2017-01-07] MEDS: MIRTAZAPINE 15 MG TAB PEG SCH (20:02)
[2017-01-08] MEDS: MIDODRINE 5 MG TAB PO SCH ×3 (06:04→16:47)
[2017-01-08] MEDS: LANSOPRAZOLE SOLUTAB 30 MG TAB PEG SCH (08:52)
[2017-01-08] MEDS: ALLOPURINOL 100 MG TAB PEG SCH (08:52)
[2017-01-08] MEDS: FREE WATER G-TUBE SCH (08:53)
[2017-01-08 09:32] VITALS: BP 139/76; PULSE 70; RESP 16; TEMP 97.2; O2SAT 97
--- NOTE | 2017-01-08 11:15 | HHI.PR ---
Subjective Remarks Follow-up for dementia. No acute complaints. Objective Vitals Vital Signs Date Time Temp Pulse Resp B/P (MAP) Pulse Ox O2 Delivery O2 Flow Rate FiO2 01/08/17 09:32 97.2 70 16 139/76 (97) 97 01/07/17 20:00 97.7 84 16 112/70 (84) 95 I/O 01/07/17 01/07/17 01/07/17 01/08/17 01/08/17 01/08/17 07:00 15:00 23:00 07:00 15:00 23:00 Intake Total 100 ml 2120 ml 0 ml Output Total 1100 ml 500 ml 250 ml Balance -1000 ml 1620 ml -250 ml Intake Oral 0 ml Tube Feeding 1320 ml Other 100 ml 800 ml Output Urine Total 1100 ml 500 ml 250 ml Objective Remarks GENERAL: Elderly male in no apparent distress. CARDIOVASCULAR: Regular rate and rhythm. RESPIRATORY: No accessory muscle use. CTAB. GASTROINTESTINAL: Normoactive bowel sounds. Abdomen soft, nontender, nondistended. NEURO: Nods to answer questions. Procedures None Urinary Catheter: Yes Assessment to: Continue Soto insert reason: Obstruction/Retention Date of Insertion: Jan 07, 2017 Vascular Central Line Catheter: No A/P Assessment and Plan Dementia with inappropriate behavior, mood disorder improved Patient had inappropriate behavior which is resolved now. Patient has been hospitalized for similar events in 2015 Consulted psychiatry for further evaluation, who indicated that this is a frontal lobe dementia. Risperdal was discontinued per POA request. Continue Remeron Psychiatry following; states patient does not have decisional capacity. Palliative care following. Son declines hospice. Protein calorie malnutrition: Improving Jevity 1.5 w/ bolus 1.5 cans (360ml) @ 0800, 1100 and 1400 and 1 can (240ml) @ 1700 and 2000. Free Water Flush 100ml before and after each bolus feeding. Food Preparation Worker following. Ensure Enlive tid and chocolate pudding tid. Patient desired to eat and speech therapy advised puree diet, thin liquids, but patient has not been eating. Food Preparation Worker suggested considering appetite stimulant. This was discussed with attending, but we do not believe this would be beneficial for patient and would add unnecessary risk to the patient. Will continue with tube feeds only. Hematuria: Resolved. -Patient is not on anticoagulation. -Hemoglobin normal. -Creatinine is normal. -UA 4/5 with innumerable RBCs, but urine sample not grossly bloody. Urinary tract infection, recurrent: Urine culture positive for Proteus mirabilis and GBS on 01/20. Patient completed course of antibiotics. Abdominal pelvis CT 03/06 shows decompressed bladder with circumferential bladder wall thickening and intraluminal air possibly indicating cystitis, but the patient had been afebrile with normal WBC count. Urine culture 05/31 with Serratia marcescens, Pseudomonas, and Enterococcus faecalis. Patient was started on antibiotics. Repeat urine culture on 06/04 only reveals contaminants. Urine culture 4/5 with Enterococcus faecalis and Pseudomonas Aeruginosa similar to previous culture on 05/31. Patient remains afebrile. CBC with normal white blood cell count. Continue to change Soto monthly. 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 Monitor and treat only if symptomatic. Mild obstructive uropathy: Resolved. Appreciate urology recommendations. Suprapubic catheter to be changed monthly; last changed 01/07/17. Abdominal pelvis CT 03/06/16 shows resolution of right sided hydronephrosis. Upper GI bleeding with recurrent rectal bleeding: Resolved. Hemoglobin stable. GI reevaluated patient on 05/04. Presumed hemorrhoids, s/p Anusol HC for total of 2 weeks. Continue PPI. Seborrheic dermatitis: Stable S/p Ketoconazole 2% shampoo, hydrocortisone lotion, and multiple courses of hydrocortisone cream. Continue washing face regularly Chalazion: Nodule R upper eyelid. No evidence of preseptal cellulitis. -Warm compresses were applied but it was greater than 2 weeks without significant improvement. -Ophthalmology was consulted and evaluated patient on 03/26. S/p Tobradex 4 times a day OD x 2 weeks. Patient was intermittently compliant with eyedrops. -No worsening. Follow-up outpatient. Hypotension: chronic Blood pressure labile. Continue Midodrine. Patient on max dose. Increase free water flushes as needed. Pre-renal azotemia: Improved Continue free water flushes Stage I decubitus ulcer, sacral skin tear: Continue wound care, barrier cream Frequent turning of patient. Candidal infection: buttocks affected with satellite lesions to the perineum. Resolved. -S/p Nystatin and clotrimazole Weakness: Continue physical therapy Nursing staff to get patient up out of bed at least 3 times daily DVT prophylaxis: SCDs. Avoid chemical prophylaxis secondary to GI bleed. Discharge Planning 01/02/17: CM continues to try to contact son to assist with placement as a SNF is willing to take patient. CM called 's office to do well check on son as he hasn't spoken with him in two weeks and has called numerous times. Madeline Ortez Jan 08, 2017 11:15
[2017-01-08] MEDS: MIRTAZAPINE 15 MG TAB PEG SCH (16:50)
[2017-01-08 20:00] VITALS: BP 144/92; PULSE 89; RESP 22; TEMP 97.6; O2SAT 97
[2017-01-09] MEDS: MIDODRINE 5 MG TAB PO SCH ×3 (06:01→17:41)
[2017-01-09 08:00] VITALS: BP 110/76; PULSE 69; RESP 18; TEMP 96; O2SAT 95
[2017-01-09] MEDS: LANSOPRAZOLE SOLUTAB 30 MG TAB PEG SCH (08:20)
[2017-01-09] MEDS: ALLOPURINOL 100 MG TAB PEG SCH (08:20)
[2017-01-09] MEDS: FREE WATER G-TUBE SCH (08:23)
--- NOTE | 2017-01-09 10:26 | HHI.PR ---
Subjective Remarks Follow up for dementia. No acute complaints. Objective Vitals Vital Signs Date Time Temp Pulse Resp B/P (MAP) Pulse Ox O2 Delivery O2 Flow Rate FiO2 01/09/17 08:00 96.0 69 18 110/76 (87) 95 01/08/17 20:00 97.6 89 22 144/92 (109) 97 I/O 01/08/17 01/08/17 01/08/17 01/09/17 01/09/17 01/09/17 07:00 15:00 23:00 07:00 15:00 23:00 Intake Total 0 ml 240 ml 490 ml Output Total 250 ml 550 ml 450 ml Balance -250 ml -310 ml 40 ml Intake Oral 0 ml Tube Feeding 240 ml TPN/PPN 240 ml Tube Irrigant 250 ml Output Urine Total 250 ml 550 ml 450 ml Stool Total 0 ml # Voids 3 # Bowel Movements 3 3 Objective Remarks GENERAL: Elderly male in no apparent distress. CARDIOVASCULAR: Regular rate and rhythm. RESPIRATORY: No accessory muscle use. CTAB. GASTROINTESTINAL: Abdomen soft, nontender, nondistended. NEURO: Nods to answer questions. Procedures None Urinary Catheter: Yes Assessment to: Continue Soto insert reason: Obstruction/Retention Date of Insertion: Jan 07, 2017 Vascular Central Line Catheter: No A/P Assessment and Plan Dementia with inappropriate behavior, mood disorder improved Patient had inappropriate behavior which is resolved now. Patient has been hospitalized for similar events in 2015 Consulted psychiatry for further evaluation, who indicated that this is a frontal lobe dementia. Risperdal was discontinued per POA request. Continue Remeron Psychiatry following; states patient does not have decisional capacity. Palliative care following. Son declines hospice. Protein calorie malnutrition: Improving Jevity 1.5 w/ bolus 1.5 cans (360ml) @ 0800, 1100 and 1400 and 1 can (240ml) @ 1700 and 2000. Free Water Flush 100ml before and after each bolus feeding. Salad Chef following. Ensure Enlive tid and chocolate pudding tid. Patient desired to eat and speech therapy advised puree diet, thin liquids, but patient has not been eating. Salad Chef suggested considering appetite stimulant. This was discussed with attending, but we do not believe this would be beneficial for patient and would add unnecessary risk to the patient. Will continue with tube feeds only. Hematuria: Resolved. -Patient is not on anticoagulation. -Hemoglobin normal. -Creatinine is normal. -UA 4/5 with innumerable RBCs, but urine sample not grossly bloody. Urinary tract infection, recurrent: Urine culture positive for Proteus mirabilis and GBS on 01/20. Patient completed course of antibiotics. Abdominal pelvis CT 03/06 shows decompressed bladder with circumferential bladder wall thickening and intraluminal air possibly indicating cystitis, but the patient had been afebrile with normal WBC count. Urine culture 05/31 with Serratia marcescens, Pseudomonas, and Enterococcus faecalis. Patient was started on antibiotics. Repeat urine culture on 06/04 only reveals contaminants. Urine culture /5 with Enterococcus faecalis and Pseudomonas Aeruginosa similar to previous culture on 05/31. Patient remains afebrile. CBC with normal white blood cell count. Continue to change Soto monthly. 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 Monitor and treat only if symptomatic. Mild obstructive uropathy: Resolved. Appreciate urology recommendations. Suprapubic catheter to be changed monthly; last changed 01/07/17. Abdominal pelvis CT 03/06/16 shows resolution of right sided hydronephrosis. Upper GI bleeding with recurrent rectal bleeding: Resolved. Hemoglobin stable. GI reevaluated patient on 05/04. Presumed hemorrhoids, s/p Anusol HC for total of 2 weeks. Continue PPI. Seborrheic dermatitis: Stable S/p Ketoconazole 2% shampoo, hydrocortisone lotion, and multiple courses of hydrocortisone cream. Continue washing face regularly Chalazion: Nodule R upper eyelid. No evidence of preseptal cellulitis. -Warm compresses were applied but it was greater than 2 weeks without significant improvement. -Ophthalmology was consulted and evaluated patient on 03/26. S/p Tobradex 4 times a day OD x 2 weeks. Patient was intermittently compliant with eyedrops. -No worsening. Follow-up outpatient. Hypotension: chronic Blood pressure labile. Continue Midodrine. Patient on max dose. Increase free water flushes as needed. Pre-renal azotemia: Improved Continue free water flushes Stage I decubitus ulcer, sacral skin tear: Continue wound care, barrier cream Frequent turning of patient. Candidal infection: buttocks affected with satellite lesions to the perineum. Resolved. -S/p Nystatin and clotrimazole Weakness: Continue physical therapy Nursing staff to get patient up out of bed at least 3 times daily DVT prophylaxis: SCDs. Avoid chemical prophylaxis secondary to GI bleed. Discharge Planning 01/02/17: CM continues to try to contact son to assist with placement as a SNF is willing to take patient. CM called Fusion Analyst's office to do well check on son as he hasn't spoken with him in two weeks and has called numerous times. Madeline Ortez Jan 09, 2017 10:26
[2017-01-09 20:00] VITALS: BP 110/65; PULSE 77; RESP 20; TEMP 98; O2SAT 94
[2017-01-09] MEDS: MIRTAZAPINE 15 MG TAB PEG SCH (20:33)
[2017-01-10] MEDS: MIDODRINE 5 MG TAB PO SCH ×3 (06:11→16:48)
[2017-01-10 08:00] VITALS: BP 134/80; PULSE 69; RESP 16; TEMP 97.3; O2SAT 97
[2017-01-10] MEDS: ALLOPURINOL 100 MG TAB PEG SCH (08:25)
[2017-01-10] MEDS: FREE WATER G-TUBE SCH (08:25)
[2017-01-10] MEDS: LANSOPRAZOLE SOLUTAB 30 MG TAB PEG SCH (08:25)
[2017-01-10 12:00] VITALS: BP 120/80; PULSE 70; RESP 16; TEMP 97.3; O2SAT 98
--- NOTE | 2017-01-10 14:05 | HHI.PR ---
Subjective Remarks Follow-up for dementia. Patient sleeping. Objective Vitals Vital Signs Date Time Temp Pulse Resp B/P (MAP) Pulse Ox O2 Delivery O2 Flow Rate FiO2 01/10/17 12:00 97.3 70 16 120/80 (93) 98 01/10/17 08:00 97.3 69 16 134/80 (98) 97 01/09/17 20:00 98.0 77 20 110/65 (80) 94 I/O 01/09/17 01/09/17 01/09/17 01/10/17 01/10/17 01/10/17 07:00 15:00 23:00 07:00 15:00 23:00 Intake Total 490 ml Output Total 450 ml 580 ml 600 ml Balance 40 ml -580 ml -600 ml Tube Feeding 240 ml Tube Irrigant 250 ml Output Urine Total 450 ml 580 ml 600 ml # Bowel Movements 3 2 Objective Remarks GENERAL: Elderly male in no apparent distress. SKIN: Flaking skin to the face. CARDIOVASCULAR: Regular rate and rhythm. RESPIRATORY: No accessory muscle use. CTAB. GASTROINTESTINAL: Abdomen soft, nontender, nondistended. Procedures None Urinary Catheter: Yes Assessment to: Continue Soto insert reason: Obstruction/Retention Date of Insertion: Jan 07, 2017 Vascular Central Line Catheter: No A/P Assessment and Plan Dementia with inappropriate behavior, mood disorder improved Patient had inappropriate behavior which is resolved now. Patient has been hospitalized for similar events in 2015 Consulted psychiatry for further evaluation, who indicated that this is a frontal lobe dementia. Risperdal was discontinued per POA request. Continue Remeron Psychiatry following; states patient does not have decisional capacity. Palliative care following. Son declines hospice. Protein calorie malnutrition: Improving Jevity 1.5 w/ bolus 1.5 cans (360ml) @ 0800, 1100 and 1400 and 1 can (240ml) @ 1700 and 2000. Free Water Flush 100ml before and after each bolus feeding. Tire Assembler following. Ensure Enlive tid and chocolate pudding tid. Patient desired to eat and speech therapy advised puree diet, thin liquids, but patient has not been eating. Tire Assembler suggested considering appetite stimulant. This was discussed with attending, but we do not believe this would be beneficial for patient and would add unnecessary risk to the patient. Will continue with tube feeds only. Hematuria: Resolved. -Patient is not on anticoagulation. -Hemoglobin normal. -Creatinine is normal. -UA 4/5 with innumerable RBCs, but urine sample not grossly bloody. Urinary tract infection, recurrent: Urine culture positive for Proteus mirabilis and GBS on 01/20. Patient completed course of antibiotics. Abdominal pelvis CT 03/06 shows decompressed bladder with circumferential bladder wall thickening and intraluminal air possibly indicating cystitis, but the patient had been afebrile with normal WBC count. Urine culture 05/31 with Serratia marcescens, Pseudomonas, and Enterococcus faecalis. Patient was started on antibiotics. Repeat urine culture on 06/04 only reveals contaminants. Urine culture /5 with Enterococcus faecalis and Pseudomonas Aeruginosa similar to previous culture on 05/31. Patient remains afebrile. CBC with normal white blood cell count. Continue to change Soto monthly. 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 Monitor and treat only if symptomatic. Mild obstructive uropathy: Resolved. Appreciate urology recommendations. Suprapubic catheter to be changed monthly; last changed 01/07/17. Abdominal pelvis CT 03/06/16 shows resolution of right sided hydronephrosis. Upper GI bleeding with recurrent rectal bleeding: Resolved. Hemoglobin stable. GI reevaluated patient on 05/04. Presumed hemorrhoids, s/p Anusol HC for total of 2 weeks. Continue PPI. Seborrheic dermatitis: Stable S/p Ketoconazole 2% shampoo, hydrocortisone lotion, and multiple courses of hydrocortisone cream. Continue washing face regularly Chalazion: Nodule R upper eyelid. No evidence of preseptal cellulitis. -Warm compresses were applied but it was greater than 2 weeks without significant improvement. -Ophthalmology was consulted and evaluated patient on 03/26. S/p Tobradex 4 times a day OD x 2 weeks. Patient was intermittently compliant with eyedrops. -No worsening. Follow-up outpatient. Hypotension: chronic Blood pressure labile. Continue Midodrine. Patient on max dose. Increase free water flushes as needed. Pre-renal azotemia: Improved Continue free water flushes Stage I decubitus ulcer, sacral skin tear: Continue wound care, barrier cream Frequent turning of patient. Candidal infection: buttocks affected with satellite lesions to the perineum. Resolved. -S/p Nystatin and clotrimazole Weakness: Continue physical therapy Nursing staff to get patient up out of bed at least 3 times daily DVT prophylaxis: SCDs. Avoid chemical prophylaxis secondary to GI bleed. Discharge Planning 01/02/17: CM continues to try to contact son to assist with placement as a SNF is willing to take patient. CM called Field Service Consultant's office to do well check on son as he hasn't spoken with him in two weeks and has called numerous times. Madeline Ortez Jan 10, 2017 14:05
[2017-01-10 16:00] VITALS: BP 106/83; PULSE 70; RESP 16; TEMP 97.4; O2SAT 99
[2017-01-10 20:00] VITALS: BP 107/65; PULSE 91; RESP 20; TEMP 95.9; O2SAT 97
[2017-01-10] MEDS: MIRTAZAPINE 15 MG TAB PEG SCH ×2 (20:19→21:00)
[2017-01-11] MEDS: MIDODRINE 5 MG TAB PO SCH ×3 (06:37→16:30)
[2017-01-11 08:00] VITALS: BP 118/78; PULSE 80; RESP 18; TEMP 98; O2SAT 96
[2017-01-11] MEDS: ALLOPURINOL 100 MG TAB PEG SCH (08:03)
[2017-01-11] MEDS: LANSOPRAZOLE SOLUTAB 30 MG TAB PEG SCH (08:03)
[2017-01-11] MEDS: FREE WATER G-TUBE SCH (08:05)
--- NOTE | 2017-01-11 10:42 | HHI.PR ---
Subjective Remarks Follow-up for dementia. No acute complaints Objective Vitals Vital Signs Date Time Temp Pulse Resp B/P (MAP) Pulse Ox O2 Delivery O2 Flow Rate FiO2 01/11/17 08:00 98.0 80 18 118/78 (91) 96 01/10/17 20:00 95.9 91 20 107/65 (79) 97 01/10/17 16:00 97.4 70 16 106/83 (91) 99 01/10/17 12:00 97.3 70 16 120/80 (93) 98 I/O 01/10/17 01/10/17 01/10/17 01/11/17 01/11/17 01/11/17 07:00 15:00 23:00 07:00 15:00 23:00 Intake Total 0 ml 0 ml Output Total 600 ml 950 ml 200 ml Balance -600 ml -950 ml -200 ml Intake Oral 0 ml 0 ml Output Urine Total 600 ml 950 ml 200 ml # Bowel Movements 2 3 1 Objective Remarks GENERAL: Elderly male in no apparent distress. CARDIOVASCULAR: Regular rate and rhythm. RESPIRATORY: No accessory muscle use. CTAB. GASTROINTESTINAL: Abdomen soft, nontender, nondistended. NEURO: Awake and alert. Procedures None Urinary Catheter: Yes Assessment to: Continue Soto insert reason: Obstruction/Retention Date of Insertion: Jan 07, 2017 Vascular Central Line Catheter: No A/P Assessment and Plan Dementia with inappropriate behavior, mood disorder improved Patient had inappropriate behavior which is resolved now. Patient has been hospitalized for similar events in 2015 Consulted psychiatry for further evaluation, who indicated that this is a frontal lobe dementia. Risperdal was discontinued per POA request. Continue Remeron Psychiatry following; states patient does not have decisional capacity. Palliative care following. Son declines hospice. Protein calorie malnutrition: Improving Jevity 1.5 w/ bolus 1.5 cans (360ml) @ 0800, 1100 and 1400 and 1 can (240ml) @ 1700 and 2000. Free Water Flush 100ml before and after each bolus feeding. Transportation Planning Engineer following. Ensure Enlive tid and chocolate pudding tid. Patient desired to eat and speech therapy advised puree diet, thin liquids, but patient has not been eating. Transportation Planning Engineer suggested considering appetite stimulant. This was discussed with attending, but we do not believe this would be beneficial for patient and would add unnecessary risk to the patient. Will continue with tube feeds only. Hematuria: Resolved. -Patient is not on anticoagulation. -Hemoglobin normal. -Creatinine is normal. -UA 4/5 with innumerable RBCs, but urine sample not grossly bloody. Urinary tract infection, recurrent: Urine culture positive for Proteus mirabilis and GBS on 01/20. Patient completed course of antibiotics. Abdominal pelvis CT 03/06 shows decompressed bladder with circumferential bladder wall thickening and intraluminal air possibly indicating cystitis, but the patient had been afebrile with normal WBC count. Urine culture 05/31 with Serratia marcescens, Pseudomonas, and Enterococcus faecalis. Patient was started on antibiotics. Repeat urine culture on 06/04 only reveals contaminants. Urine culture / with Enterococcus faecalis and Pseudomonas Aeruginosa similar to previous culture on 05/31. Patient remains afebrile. CBC with normal white blood cell count. Continue to change Soto monthly. 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 Monitor and treat only if symptomatic. Mild obstructive uropathy: Resolved. Appreciate urology recommendations. Suprapubic catheter to be changed monthly; last changed 01/07/17. Abdominal pelvis CT 03/06/16 shows resolution of right sided hydronephrosis. Upper GI bleeding with recurrent rectal bleeding: Resolved. Hemoglobin stable. GI reevaluated patient on 05/04. Presumed hemorrhoids, s/p Anusol HC for total of 2 weeks. Continue PPI. Seborrheic dermatitis: Stable S/p Ketoconazole 2% shampoo, hydrocortisone lotion, and multiple courses of hydrocortisone cream. Continue washing face regularly Chalazion: Nodule R upper eyelid. No evidence of preseptal cellulitis. -Warm compresses were applied but it was greater than 2 weeks without significant improvement. -Ophthalmology was consulted and evaluated patient on 03/26. S/p Tobradex 4 times a day OD x 2 weeks. Patient was intermittently compliant with eyedrops. -No worsening. Follow-up outpatient. Hypotension: chronic Blood pressure labile. Continue Midodrine. Patient on max dose. Increase free water flushes as needed. Pre-renal azotemia: Improved Continue free water flushes Stage I decubitus ulcer, sacral skin tear: Continue wound care, barrier cream Frequent turning of patient. Candidal infection: buttocks affected with satellite lesions to the perineum. Resolved. -S/p Nystatin and clotrimazole Weakness: Continue physical therapy Nursing staff to get patient up out of bed at least 3 times daily DVT prophylaxis: SCDs. Avoid chemical prophylaxis secondary to GI bleed. Discharge Planning 01/02/17: CM continues to try to contact son to assist with placement as a SNF is willing to take patient. CM called Program Services Assistant's office to do well check on son as he hasn't spoken with him in two weeks and has called numerous times. Madeline Ortez Jan 11, 2017 10:42
[2017-01-11 20:00] VITALS: BP 104/68; PULSE 76; RESP 18; TEMP 97; O2SAT 95
[2017-01-11] MEDS: MIRTAZAPINE 15 MG TAB PEG SCH (20:00)
[2017-01-12] MEDS: MIDODRINE 5 MG TAB PO SCH ×3 (06:05→17:15)
[2017-01-12] MEDS: FREE WATER G-TUBE SCH (08:54)
[2017-01-12] MEDS: LANSOPRAZOLE SOLUTAB 30 MG TAB PEG SCH (08:54)
[2017-01-12] MEDS: ALLOPURINOL 100 MG TAB PEG SCH (08:54)
[2017-01-12 08:55] VITALS: BP 120/72; PULSE 68; RESP 16; TEMP 97.2; O2SAT 98
--- NOTE | 2017-01-12 09:17 | HHI.PR ---
Subjective Remarks Follow-up for dementia. No acute complaints. Objective Vitals Vital Signs Date Time Temp Pulse Resp B/P (MAP) Pulse Ox O2 Delivery O2 Flow Rate FiO2 01/12/17 08:55 97.2 68 16 120/72 (88) 98 01/11/17 20:00 97.0 76 18 104/68 (80) 95 I/O 01/11/17 01/11/17 01/11/17 01/12/17 01/12/17 01/12/17 07:00 15:00 23:00 07:00 15:00 23:00 Intake Total 0 ml 1880 ml 440 ml 0 ml Output Total 200 ml 350 ml 450 ml Balance -200 ml 1880 ml 90 ml -450 ml Intake Oral 0 ml 0 ml Tube Feeding 1080 ml 240 ml Tube Irrigant 600 ml 200 ml Other 200 ml Output Urine Total 200 ml 350 ml 450 ml # Bowel Movements 1 1 Objective Remarks GENERAL: Elderly male in no apparent distress. CARDIOVASCULAR: Regular rate and rhythm. RESPIRATORY: No accessory muscle use. CTAB. GASTROINTESTINAL: Abdomen soft, nontender, nondistended. NEURO: Awake and alert. Procedures None Urinary Catheter: Yes Assessment to: Continue Soto insert reason: Obstruction/Retention Date of Insertion: Jan 07, 2017 Vascular Central Line Catheter: No A/P Assessment and Plan Dementia with inappropriate behavior, mood disorder improved Patient had inappropriate behavior which is resolved now. Patient has been hospitalized for similar events in 2015 Consulted psychiatry for further evaluation, who indicated that this is a frontal lobe dementia. Risperdal was discontinued per POA request. Continue Remeron Psychiatry following; states patient does not have decisional capacity. Palliative care following. Son declines hospice. Protein calorie malnutrition: Improving Jevity 1.5 w/ bolus 1.5 cans (360ml) @ 0800, 1100 and 1400 and 1 can (240ml) @ 1700 and 2000. Free Water Flush 100ml before and after each bolus feeding. [employer] Supervisor following. Ensure Enlive tid and chocolate pudding tid. Patient desired to eat and speech therapy advised puree diet, thin liquids, but patient has not been eating. T[employer] Center Supervisor suggested considering appetite stimulant. This was discussed with attending, but we do not believe this would be beneficial for patient and would add unnecessary risk to the patient. Will continue with tube feeds only. Hematuria: Resolved. -Patient is not on anticoagulation. -Hemoglobin normal. -Creatinine is normal. -UA 4/5 with innumerable RBCs, but urine sample not grossly bloody. Urinary tract infection, recurrent: Urine culture positive for Proteus mirabilis and GBS on 01/20. Patient completed course of antibiotics. Abdominal pelvis CT 03/06 shows decompressed bladder with circumferential bladder wall thickening and intraluminal air possibly indicating cystitis, but the patient had been afebrile with normal WBC count. Urine culture 05/31 with Serratia marcescens, Pseudomonas, and Enterococcus faecalis. Patient was started on antibiotics. Repeat urine culture on 06/04 only reveals contaminants. Urine culture /5 with Enterococcus faecalis and Pseudomonas Aeruginosa similar to previous culture on 05/31. Patient remains afebrile. CBC with normal white blood cell count. Continue to change Soto monthly. 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 Monitor and treat only if symptomatic. Mild obstructive uropathy: Resolved. Appreciate urology recommendations. Suprapubic catheter to be changed monthly; last changed 01/07/17. Abdominal pelvis CT 03/06/16 shows resolution of right sided hydronephrosis. Upper GI bleeding with recurrent rectal bleeding: Resolved. Hemoglobin stable. GI reevaluated patient on 05/04. Presumed hemorrhoids, s/p Anusol HC for total of 2 weeks. Continue PPI. Seborrheic dermatitis: Stable S/p Ketoconazole 2% shampoo, hydrocortisone lotion, and multiple courses of hydrocortisone cream. Continue washing face regularly Chalazion: Nodule R upper eyelid. No evidence of preseptal cellulitis. -Warm compresses were applied but it was greater than 2 weeks without significant improvement. -Ophthalmology was consulted and evaluated patient on 03/26. S/p Tobradex 4 times a day OD x 2 weeks. Patient was intermittently compliant with eyedrops. -No worsening. Follow-up outpatient. Hypotension: chronic Blood pressure labile. Continue Midodrine. Patient on max dose. Increase free water flushes as needed. Pre-renal azotemia: Improved Continue free water flushes Stage I decubitus ulcer, sacral skin tear: Continue wound care, barrier cream Frequent turning of patient. Candidal infection: buttocks affected with satellite lesions to the perineum. Resolved. -S/p Nystatin and clotrimazole Weakness: Continue physical therapy Nursing staff to get patient up out of bed at least 3 times daily DVT prophylaxis: SCDs. Avoid chemical prophylaxis secondary to GI bleed. Discharge Planning 01/02/17: CM continues to try to contact son to assist with placement as a SNF is willing to take patient. CM called Residential Housekeeper's office to do well check on son as he hasn't spoken with him in two weeks and has called numerous times. Madeline Ortez Jan 12, 2017 09:17
[2017-01-12 11:34] VITALS: BP 109/85; PULSE 74; RESP 16
[2017-01-12 21:16] VITALS: BP 110/70; PULSE 97; RESP 18; TEMP 98.2; O2SAT 98
[2017-01-12] MEDS: MIRTAZAPINE 15 MG TAB PEG SCH (21:16)
[2017-01-13] MEDS: MIDODRINE 5 MG TAB PO SCH ×3 (05:12→17:40)
[2017-01-13] MEDS: LANSOPRAZOLE SOLUTAB 30 MG TAB PEG SCH (08:21)
[2017-01-13] MEDS: ALLOPURINOL 100 MG TAB PEG SCH (08:21)
[2017-01-13] MEDS: FREE WATER G-TUBE SCH (08:21)
[2017-01-13 08:54] VITALS: BP 126/74; PULSE 76; RESP 16; TEMP 97.2; O2SAT 99
--- NOTE | 2017-01-13 09:12 | HHI.PR ---
Subjective Remarks Follow-up for dementia. No acute complaints. Objective Vitals Vital Signs Date Time Temp Pulse Resp B/P (MAP) Pulse Ox O2 Delivery O2 Flow Rate FiO2 01/13/17 08:54 97.2 76 16 126/74 (91) 99 01/12/17 21:16 98.2 97 18 110/70 (83) 98 01/12/17 11:34 74 16 109/85 (93) I/O 01/12/17 01/12/17 01/12/17 01/13/17 01/13/17 01/13/17 07:00 15:00 23:00 07:00 15:00 23:00 Intake Total 0 ml 1880 ml 440 ml 440 ml Output Total 450 ml 700 ml 900 ml Balance -450 ml 1880 ml -260 ml -460 ml Intake Oral 0 ml Tube Feeding 1080 ml 240 ml 240 ml Tube Irrigant 600 ml 200 ml Other 200 ml 200 ml Output Urine Total 450 ml 700 ml 900 ml Stool Total 0 ml # Voids 0 # Bowel Movements 1 2 2 Objective Remarks GENERAL: Elderly male in no apparent distress. CARDIOVASCULAR: Regular rate and rhythm. RESPIRATORY: No accessory muscle use. Equivocal crackled over RLL. GASTROINTESTINAL: Abdomen soft, nontender, nondistended. NEURO: Awake and alert. Procedures None Urinary Catheter: Yes Assessment to: Continue Soto insert reason: Obstruction/Retention Date of Insertion: Jan 07, 2017 Vascular Central Line Catheter: No A/P Assessment and Plan Dementia with inappropriate behavior, mood disorder improved Patient had inappropriate behavior which is resolved now. Patient has been hospitalized for similar events in 2015 Consulted psychiatry for further evaluation, who indicated that this is a frontal lobe dementia. Risperdal was discontinued per POA request. Continue Remeron Psychiatry following; states patient does not have decisional capacity. Palliative care following. Son declines hospice. Protein calorie malnutrition: Improving Jevity 1.5 w/ bolus 1.5 cans (360ml) @ 0800, 1100 and 1400 and 1 can (240ml) @ 1700 and 2000. Free Water Flush 100ml before and after each bolus feeding. Locomotive Engineer Diesel following. Ensure Enlive tid and chocolate pudding tid. Patient desired to eat and speech therapy advised puree diet, thin liquids, but patient has not been eating. Locomotive Engineer Diesel suggested considering appetite stimulant. This was discussed with attending, but we do not believe this would be beneficial for patient and would add unnecessary risk to the patient. Will continue with tube feeds only. Hematuria: Resolved. -Patient is not on anticoagulation. -Hemoglobin normal. -Creatinine is normal. -UA 4/5 with innumerable RBCs, but urine sample not grossly bloody. Urinary tract infection, recurrent: Urine culture positive for Proteus mirabilis and GBS on 01/20. Patient completed course of antibiotics. Abdominal pelvis CT 03/06 shows decompressed bladder with circumferential bladder wall thickening and intraluminal air possibly indicating cystitis, but the patient had been afebrile with normal WBC count. Urine culture 05/31 with Serratia marcescens, Pseudomonas, and Enterococcus faecalis. Patient was started on antibiotics. Repeat urine culture on 06/04 only reveals contaminants. Urine culture 08/07 with Enterococcus faecalis and Pseudomonas Aeruginosa similar to previous culture on 05/31. Patient remains afebrile. CBC with normal white blood cell count. Continue to change Soto monthly. 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 Monitor and treat only if symptomatic. Mild obstructive uropathy: Resolved. Appreciate urology recommendations. Suprapubic catheter to be changed monthly; last changed 01/07/17. Abdominal pelvis CT 03/06/16 shows resolution of right sided hydronephrosis. Upper GI bleeding with recurrent rectal bleeding: Resolved. Hemoglobin stable. GI reevaluated patient on 05/04. Presumed hemorrhoids, s/p Anusol HC for total of 2 weeks. Continue PPI. Seborrheic dermatitis: Stable S/p Ketoconazole 2% shampoo, hydrocortisone lotion, and multiple courses of hydrocortisone cream. Continue washing face regularly Chalazion: Nodule R upper eyelid. No evidence of preseptal cellulitis. -Warm compresses were applied but it was greater than 2 weeks without significant improvement. -Ophthalmology was consulted and evaluated patient on 03/26. S/p Tobradex 4 times a day OD x 2 weeks. Patient was intermittently compliant with eyedrops. -No worsening. Follow-up outpatient. Hypotension: chronic Blood pressure labile. Continue Midodrine. Patient on max dose. Increase free water flushes as needed. Pre-renal azotemia: Improved Continue free water flushes Stage I decubitus ulcer, sacral skin tear: Continue wound care, barrier cream Frequent turning of patient. Candidal infection: buttocks affected with satellite lesions to the perineum. Resolved. -S/p Nystatin and clotrimazole Weakness: Continue physical therapy Nursing staff to get patient up out of bed at least 3 times daily DVT prophylaxis: SCDs. Avoid chemical prophylaxis secondary to GI bleed. Discharge Planning 01/02/17: CM continues to try to contact son to assist with placement as a SNF is willing to take patient. CM called Tool Clerk's office to do well check on son as he hasn't spoken with him in two weeks and has called numerous times. Madeline Ortez Jan 13, 2017 09:12
[2017-01-13 20:00] VITALS: BP 109/74; PULSE 70; RESP 20; TEMP 96.5; O2SAT 96
[2017-01-13] MEDS: ACETAMINOPHEN 325 MG TAB PO PRN (22:11)
[2017-01-13] MEDS: MIRTAZAPINE 15 MG TAB PEG SCH (22:11)
[2017-01-14] MEDS: MIDODRINE 5 MG TAB PO SCH ×3 (06:12→17:00)
[2017-01-14 08:00] VITALS: BP 116/72; PULSE 75; RESP 18; TEMP 96.6; O2SAT 100
--- NOTE | 2017-01-14 08:23 | HHI.PR ---
Subjective Remarks Patient seen and examined today for follow-up on profound weakness, dementia. Patient lying in bed comfortable. Denies any new complaints. No change in clinical status. Objective Vitals Vital Signs Date Time Temp Pulse Resp B/P (MAP) Pulse Ox O2 Delivery O2 Flow Rate FiO2 01/13/17 20:00 96.5 70 20 109/74 (86) 96 01/13/17 08:54 97.2 76 16 126/74 (91) 99 I/O 01/13/17 01/13/17 01/13/17 01/14/17 01/14/17 01/14/17 07:00 15:00 23:00 07:00 15:00 23:00 Intake Total 440 ml 440 ml 60 ml Output Total 900 ml 650 ml Balance -460 ml 440 ml -590 ml Intake Oral 0 ml 0 ml Tube Feeding 240 ml 240 ml Other 200 ml 200 ml 60 ml Output Urine Total 900 ml 650 ml # Bowel Movements 2 Objective Remarks GENERAL: Well-developed, well-nourished, in no acute distress. HEENT: Head is normocephalic without any lesions or masses noted. Facial features are symmetric. Eyes: Extraocular muscles are intact. Conjunctivae were clear. NECK: Trachea midline no deviation. CARDIAC: Regular rhythm, regular rate. S1/S2 are heard. No murmurs gallops or rubs. LUNGS: Clear to auscultation bilaterally. No wheeze, rhonchi or rales. No use of accessory muscles on inspiration or expiration. ABDOMEN: Soft, nontender. Nondistended. Bowel sounds heard in all 4 quadrants. No organomegaly or masses. Negative rebound, negative guarding, suprapubic catheter in place, PEG tube in place with no signs of infection, EXTREMITIES: No edema, pulses are equal bilaterally. No cyanosis or clubbing NEUROLOGY: Mood and affect appear appropriate. Cranial nerves II through XII grossly intact. Moving all extremities Procedures None Urinary Catheter: Yes (superpubic catheter) Assessment to: Continue Soto insert reason: Obstruction/Retention Date of Insertion: Jan 07, 2017 Vascular Central Line Catheter: No A/P Assessment and Plan Weakness: Continue physical therapy Nursing staff to get patient up out of bed at least 3 times daily Patient refusing care, refusing to get out of bed with nursing staff and physical therapy, patient will never improve will only worsen. Consulted palliative care for recommendations Palliative care requested consult with psychiatry to see if patient has capacity to make decisions. Psychiatry evaluated patient states that he does not have capacity make his own decisions Palliative care discussed with family who is declining transition to comfort care, hospice. Dementia with inappropriate behavior, mood disorder improved Patient has been hospitalized for similar events in 2014 Consulted psychiatry for further evaluation, who indicated that this is a frontal lobe dementia Risperdal discontinued at family's request Continue Remeron Parkinson's disease: Patient has dementia and resting tremor. Chronic, stable. GI bleed with presenting of Upper GI bleed, patient with intermittent rectal bleeding: Follow-up hemoglobin has remained stable GI was following and reevaluated on 05/04/16 Presumed hemorrhoids, status post Anusol HC for 2 weeks Continue PPI. Protein calorie malnutrition: Improving Consulted dietitian who indicated that patient may be converted to bolus feeding Jevity 1.5, 1.5, 360ml(1.5 cans)@ 0800, 1100, 1400 and 240ml(1-can)@ 1700 and 2000 Prealbumin level 25 Ensure Enlive 3 times a day since pudding 3 times a day PEG tube replaced 11/20/16 Mild pink coloration around PEG tube, instructed nursing staff to clean daily and monitor for infection Hypotension with episodes of hypertension: Stable Continue monitor blood pressure Continue Midodrine. Mild obstructive uropathy: Resolved. With recurrent urinary tract infections. Treat only if symptomatic Suprapubic catheter in place, changed monthly, last changed 01/07/[address] 03/06/16 shows resolution of right sided hydronephrosis. Site around the catheter does have some serosanguineous dried fluid. Instructed nursing staff to clean daily and monitor for infection Seborrhea dermatitis, recurrent Status post Hydrocortisone cream for 2 weeks Counseled nursing staff on proper hygiene to avoid recurrence DVT prophylaxis: SCDs. Avoid chemical prophylaxis secondary to GI bleed. Discharge Planning Discharge planning per case management. Jaguar Walker Jan 14, 2017 08:23
[2017-01-14] MEDS: FREE WATER G-TUBE SCH (08:42)
[2017-01-14] MEDS: LANSOPRAZOLE SOLUTAB 30 MG TAB PEG SCH (08:42)
[2017-01-14] MEDS: ALLOPURINOL 100 MG TAB PEG SCH (08:42)
[2017-01-14 20:23] VITALS: BP 110/73; PULSE 85; RESP 22; TEMP 98.7; O2SAT 94
[2017-01-14] MEDS: MIRTAZAPINE 15 MG TAB PEG SCH (21:44)
[2017-01-15 08:00] VITALS: BP 120/72; PULSE 82; RESP 18; TEMP 98; O2SAT 95
[2017-01-15] MEDS: MIDODRINE 5 MG TAB PO SCH ×3 (08:09→17:19)
[2017-01-15] MEDS: FREE WATER G-TUBE SCH (09:00)
[2017-01-15] MEDS: LANSOPRAZOLE SOLUTAB 30 MG TAB PEG SCH (09:01)
[2017-01-15] MEDS: ALLOPURINOL 100 MG TAB PEG SCH (09:01)
--- NOTE | 2017-01-15 12:31 | HHI.PR ---
Subjective Remarks Patient examined today for follow-up on generalized weakness, dementia. Patient denies any new complaints. No change in clinical status. Objective Vitals Vital Signs Date Time Temp Pulse Resp B/P (MAP) Pulse Ox O2 Delivery O2 Flow Rate FiO2 01/15/17 08:00 98.0 82 18 120/72 (88) 95 01/14/17 20:23 98.7 85 22 110/73 (85) 94 I/O 01/14/17 01/14/17 01/14/17 01/15/17 01/15/17 01/15/17 07:00 15:00 23:00 07:00 15:00 23:00 Intake Total 60 ml Output Total 650 ml 370 ml 1 ml Balance -590 ml -370 ml -1 ml Intake Oral 0 ml Other 60 ml Output Urine Total 650 ml 370 ml Stool Total 1 ml # Voids 1 1 1 # Bowel Movements 2 Objective Remarks GENERAL: Well-developed, well-nourished, in no acute distress. HEENT: Head is normocephalic without any lesions or masses noted. Facial features are symmetric. Eyes: Extraocular muscles are intact. Conjunctivae were clear. NECK: Trachea midline no deviation. CARDIAC: Regular rhythm, regular rate. S1/S2 are heard. No murmurs gallops or rubs. LUNGS: Clear to auscultation bilaterally. No wheeze, rhonchi or rales. No use of accessory muscles on inspiration or expiration. ABDOMEN: Soft, nontender. Nondistended. Bowel sounds heard in all 4 quadrants. No organomegaly or masses. Negative rebound, negative guarding, suprapubic catheter in place, PEG tube in place with no signs of infection, EXTREMITIES: No edema, pulses are equal bilaterally. No cyanosis or clubbing NEUROLOGY: Mood and affect appear appropriate. Cranial nerves II through XII grossly intact. Moving all extremities Procedures None Urinary Catheter: Yes (suprapubic catheter) Assessment to: Continue Soto insert reason: Obstruction/Retention Date of Insertion: Jan 07, 2017 Vascular Central Line Catheter: No A/P Assessment and Plan Weakness: Continue physical therapy Nursing staff to get patient up out of bed at least 3 times daily Patient refusing care, refusing to get out of bed with nursing staff and physical therapy, patient will never improve will only worsen. Consulted palliative care for recommendations Palliative care requested consult with psychiatry to see if patient has capacity to make decisions. Psychiatry evaluated patient states that he does not have capacity make his own decisions Palliative care discussed with family who is declining transition to comfort care, hospice. Dementia with inappropriate behavior, mood disorder improved Patient has been hospitalized for similar events in 2015 Consulted psychiatry for further evaluation, who indicated that this is a frontal lobe dementia Risperdal discontinued at family's request Continue Remeron Parkinson's disease: Patient has dementia and resting tremor. Chronic, stable. GI bleed with presenting of Upper GI bleed, patient with intermittent rectal bleeding: Follow-up hemoglobin has remained stable GI was following and reevaluated on 05/04/16 Presumed hemorrhoids, status post Anusol HC for 2 weeks Continue PPI. Protein calorie malnutrition: Improving Consulted dietitian who indicated that patient may be converted to bolus feeding Jevity 1.5, 1.5, 360ml(1.5 cans)@ 0800, 1100, 1400 and 240ml(1-can)@ 1700 and 2000 Prealbumin level 25 Ensure Enlive 3 times a day since pudding 3 times a day PEG tube replaced 11/20/16 Mild pink coloration around PEG tube, instructed nursing staff to clean daily and monitor for infection Hypotension with episodes of hypertension: Stable Continue monitor blood pressure Continue Midodrine. Mild obstructive uropathy: Resolved. With recurrent urinary tract infections. Treat only if symptomatic Suprapubic catheter in place, changed monthly, last changed 01/07/[address] 03/06/16 shows resolution of right sided hydronephrosis. Site around the catheter does have some serosanguineous dried fluid. Instructed nursing staff to clean daily and monitor for infection Seborrhea dermatitis, recurrent Status post Hydrocortisone cream for 2 weeks Counseled nursing staff on proper hygiene to avoid recurrence DVT prophylaxis: SCDs. Avoid chemical prophylaxis secondary to GI bleed. Discharge Planning Discharge planning per case management. Jaguar Walker Jan 15, 2017 12:31
[2017-01-15 18:30] VITALS: BP 112/68; PULSE 79; RESP 17; TEMP 97.5; O2SAT 95
[2017-01-15 20:00] VITALS: BP 114/77; PULSE 76; RESP 16; TEMP 98.3; O2SAT 95
[2017-01-15] MEDS: MIRTAZAPINE 15 MG TAB PEG SCH (23:00)
[2017-01-16] MEDS: MIDODRINE 5 MG TAB PO SCH ×3 (05:28→16:59)
[2017-01-16] MEDS: ALLOPURINOL 100 MG TAB PEG SCH (08:10)
[2017-01-16] MEDS: LANSOPRAZOLE SOLUTAB 30 MG TAB PEG SCH (08:10)
[2017-01-16] MEDS: FREE WATER G-TUBE SCH (08:15)
--- NOTE | 2017-01-16 15:27 | HHI.PR ---
Subjective Remarks Patient seen and examined today for follow-up on weakness, dementia. Patient doing well. Denies any new complaints. No change in clinical status. Objective Vitals Vital Signs Date Time Temp Pulse Resp B/P (MAP) Pulse Ox O2 Delivery O2 Flow Rate FiO2 01/15/17 20:00 98.3 76 16 114/77 (89) 95 01/15/17 18:30 97.5 79 17 112/68 (83) 95 I/O 01/15/17 01/15/17 01/15/17 01/16/17 01/16/17 01/16/17 07:00 15:00 23:00 07:00 15:00 23:00 Intake Total 440 ml Output Total 1 ml 1180 ml 280.0 ml Balance -1 ml -1180 ml 440 ml -280.0 ml Tube Feeding 240 ml Other 200 ml Output Urine Total 1180 ml Stool Total 1 ml Tube Feeding Residual Discard 280.0 ml # Voids 1 1 # Bowel Movements 2 5 Objective Remarks GENERAL: Well-developed, well-nourished, in no acute distress. HEENT: Head is normocephalic without any lesions or masses noted. Facial features are symmetric. Eyes: Extraocular muscles are intact. Conjunctivae were clear. NECK: Trachea midline no deviation. CARDIAC: Regular rhythm, regular rate. S1/S2 are heard. No murmurs gallops or rubs. LUNGS: Clear to auscultation bilaterally. No wheeze, rhonchi or rales. No use of accessory muscles on inspiration or expiration. ABDOMEN: Soft, nontender. Nondistended. Bowel sounds heard in all 4 quadrants. No organomegaly or masses. Negative rebound, negative guarding, suprapubic catheter in place, PEG tube in place with no signs of infection, EXTREMITIES: No edema, pulses are equal bilaterally. No cyanosis or clubbing NEUROLOGY: Mood and affect appear appropriate. Cranial nerves II through XII grossly intact. Moving all extremities Procedures None Urinary Catheter: Yes (suprapubic catheter) Assessment to: Continue Soto insert reason: Obstruction/Retention Date of Insertion: Jan 07, 2017 Vascular Central Line Catheter: No A/P Assessment and Plan Weakness: Continue physical therapy Nursing staff to get patient up out of bed at least 3 times daily Patient refusing care, refusing to get out of bed with nursing staff and physical therapy, patient will never improve will only worsen. Consulted palliative care for recommendations Palliative care requested consult with psychiatry to see if patient has capacity to make decisions. Psychiatry evaluated patient states that he does not have capacity make his own decisions Palliative care discussed with family who is declining transition to comfort care, hospice. Dementia with inappropriate behavior, mood disorder improved Patient has been hospitalized for similar events in 2015 Consulted psychiatry for further evaluation, who indicated that this is a frontal lobe dementia Risperdal discontinued at family's request Continue Remeron Parkinson's disease: Patient has dementia and resting tremor. Chronic, stable. GI bleed with presenting of Upper GI bleed, patient with intermittent rectal bleeding: Follow-up hemoglobin has remained stable GI was following and reevaluated on 05/04/16 Presumed hemorrhoids, status post Anusol HC for 2 weeks Continue PPI. Protein calorie malnutrition: Improving Consulted dietitian who indicated that patient may be converted to bolus feeding Jevity 1.5, 1.5, 360ml(1.5 cans)@ 0800, 1100, 1400 and 240ml(1-can)@ 1700 and 2000 Prealbumin level 25 Ensure Enlive 3 times a day since pudding 3 times a day PEG tube replaced 11/20/16 Mild pink coloration around PEG tube, instructed nursing staff to clean daily and monitor for infection Hypotension with episodes of hypertension: Stable Continue monitor blood pressure Continue Midodrine. Mild obstructive uropathy: Resolved. With recurrent urinary tract infections. Treat only if symptomatic Suprapubic catheter in place, changed monthly, last changed 01/07/[address] 03/06/16 shows resolution of right sided hydronephrosis. Site around the catheter does have some serosanguineous dried fluid. Instructed nursing staff to clean daily and monitor for infection Seborrhea dermatitis, recurrent Status post Hydrocortisone cream for 2 weeks Counseled nursing staff on proper hygiene to avoid recurrence DVT prophylaxis: SCDs. Avoid chemical prophylaxis secondary to GI bleed. Discharge Planning Discharge planning per case management. Jaguar Walker Jan 16, 2017 15:27
[2017-01-16 16:00] VITALS: BP 93/65; PULSE 99; RESP 18; TEMP 97.1; O2SAT 93
[2017-01-16 20:00] VITALS: BP 121/83; PULSE 90; RESP 16; TEMP 97.8; O2SAT 94
[2017-01-16] MEDS: MIRTAZAPINE 15 MG TAB PEG SCH (20:47)
[2017-01-17] MEDS: MIDODRINE 5 MG TAB PO SCH ×3 (06:32→17:47)
[2017-01-17 08:00] VITALS: BP 113/74; PULSE 75; RESP 16; TEMP 96.8; O2SAT 96
[2017-01-17] MEDS: LANSOPRAZOLE SOLUTAB 30 MG TAB PEG SCH (08:26)
[2017-01-17] MEDS: FREE WATER G-TUBE SCH (08:26)
[2017-01-17] MEDS: ALLOPURINOL 100 MG TAB PEG SCH (08:26)
--- NOTE | 2017-01-17 09:39 | HHI.PR ---
Subjective Remarks Patient seen and examined today for follow-up on weakness, dementia. Patient has any new complaints. No change in clinical status. Awaiting case management discharge planning. Objective Vitals Vital Signs Date Time Temp Pulse Resp B/P (MAP) Pulse Ox O2 Delivery O2 Flow Rate FiO2 01/17/17 08:00 96.8 75 16 113/74 (87) 96 01/16/17 20:00 97.8 90 16 121/83 (96) 94 01/16/17 16:00 97.1 99 18 93/65 (74) 93 I/O 01/16/17 01/16/17 01/16/17 01/17/17 01/17/17 01/17/17 06:59 14:59 22:59 06:59 14:59 22:59 Intake Total 440 ml 240 ml Output Total 880.0 ml 500 ml Balance 440 ml -880.0 ml -260 ml Tube Feeding 240 ml 240 ml Other 200 ml Output Urine Total 600 ml Stool Total 500 ml Tube Feeding Residual Discard 280.0 ml # Bowel Movements 5 2 Objective Remarks GENERAL: Well-developed, well-nourished, in no acute distress. HEENT: Head is normocephalic without any lesions or masses noted. Facial features are symmetric. Eyes: Extraocular muscles are intact. Conjunctivae were clear. NECK: Trachea midline no deviation. CARDIAC: Regular rhythm, regular rate. S1/S2 are heard. No murmurs gallops or rubs. LUNGS: Clear to auscultation bilaterally. No wheeze, rhonchi or rales. No use of accessory muscles on inspiration or expiration. ABDOMEN: Soft, nontender. Nondistended. Bowel sounds heard in all 4 quadrants. No organomegaly or masses. Negative rebound, negative guarding, suprapubic catheter in place, PEG tube in place with no signs of infection, EXTREMITIES: No edema, pulses are equal bilaterally. No cyanosis or clubbing NEUROLOGY: Mood and affect appear appropriate. Cranial nerves II through XII grossly intact. Moving all extremities Procedures None Urinary Catheter: Yes (suprapubic catheter) Assessment to: Continue Soto insert reason: Obstruction/Retention Date of Insertion: Jan 07, 2017 Vascular Central Line Catheter: No A/P Assessment and Plan Weakness: Continue physical therapy Nursing staff to get patient up out of bed at least 3 times daily Patient refusing care, refusing to get out of bed with nursing staff and physical therapy, patient will never improve will only worsen. Consulted palliative care for recommendations Palliative care requested consult with psychiatry to see if patient has capacity to make decisions. Psychiatry evaluated patient states that he does not have capacity make his own decisions Palliative care discussed with family who is declining transition to comfort care, hospice. Dementia with inappropriate behavior, mood disorder improved Patient has been hospitalized for similar events in 2015 Consulted psychiatry for further evaluation, who indicated that this is a frontal lobe dementia Risperdal discontinued at family's request Continue Remeron Parkinson's disease: Patient has dementia and resting tremor. Chronic, stable. GI bleed with presenting of Upper GI bleed, patient with intermittent rectal bleeding: Follow-up hemoglobin has remained stable GI was following and reevaluated on 05/04/16 Presumed hemorrhoids, status post Anusol HC for 2 weeks Continue PPI. Protein calorie malnutrition: Improving Consulted dietitian who indicated that patient may be converted to bolus feeding Jevity 1.5, 1.5, 360ml(1.5 cans)@ 0800, 1100, 1400 and 240ml(1-can)@ 1700 and 2000 Prealbumin level 25 Ensure Enlive 3 times a day since pudding 3 times a day PEG tube replaced 11/20/16 Mild pink coloration around PEG tube, instructed nursing staff to clean daily and monitor for infection Hypotension with episodes of hypertension: Stable Continue monitor blood pressure Continue Midodrine. Mild obstructive uropathy: Resolved. With recurrent urinary tract infections. Treat only if symptomatic Suprapubic catheter in place, changed monthly, last changed 01/07/[address] 03/06/16 shows resolution of right sided hydronephrosis. Site around the catheter does have some serosanguineous dried fluid. Instructed nursing staff to clean daily and monitor for infection Seborrhea dermatitis, recurrent Status post Hydrocortisone cream for 2 weeks Counseled nursing staff on proper hygiene to avoid recurrence DVT prophylaxis: SCDs. Avoid chemical prophylaxis secondary to GI bleed. Discharge Planning Discharge planning per case management. Jaguar Walker Jan 17, 2017 09:39
[2017-01-17] MEDS: MIRTAZAPINE 15 MG TAB PEG SCH (20:47)
[2017-01-17 21:38] VITALS: BP 120/67; PULSE 69; RESP 16; TEMP 98.6; O2SAT 95
[2017-01-18] MEDS: MIDODRINE 5 MG TAB PO SCH ×3 (06:10→16:49)
[2017-01-18 08:00] VITALS: BP 117/72; PULSE 67; RESP 20; TEMP 97.2; O2SAT 95
[2017-01-18] MEDS: FREE WATER G-TUBE SCH (08:03)
[2017-01-18] MEDS: LANSOPRAZOLE SOLUTAB 30 MG TAB PEG SCH (08:04)
[2017-01-18] MEDS: ALLOPURINOL 100 MG TAB PEG SCH (08:04)
--- NOTE | 2017-01-18 10:34 | HHI.PR ---
Subjective Remarks Patient seen and examined today for follow-up on weakness, dementia. Patient lying in bed comfortable. Denies any new complaints. No change in clinical status. Objective Vitals Vital Signs Date Time Temp Pulse Resp B/P (MAP) Pulse Ox O2 Delivery O2 Flow Rate FiO2 01/18/17 08:00 97.2 67 20 117/72 (87) 95 01/17/17 21:38 98.6 69 16 120/67 (84) 95 I/O 01/17/17 01/17/17 01/17/17 01/18/17 01/18/17 01/18/17 07:00 15:00 23:00 07:00 15:00 23:00 Intake Total 2120 ml 360 ml Output Total 450 ml 1200 ml Balance 1670 ml -840 ml Tube Feeding 1320 ml 240 ml Other 800 ml 120 ml Output Urine Total 450 ml 1200 ml # Bowel Movements 1 2 Objective Remarks GENERAL: Well-developed, well-nourished, in no acute distress. HEENT: Head is normocephalic without any lesions or masses noted. Facial features are symmetric. Eyes: Extraocular muscles are intact. Conjunctivae were clear. NECK: Trachea midline no deviation. CARDIAC: Regular rhythm, regular rate. S1/S2 are heard. No murmurs gallops or rubs. LUNGS: Clear to auscultation bilaterally. No wheeze, rhonchi or rales. No use of accessory muscles on inspiration or expiration. ABDOMEN: Soft, nontender. Nondistended. Bowel sounds heard in all 4 quadrants. No organomegaly or masses. Negative rebound, negative guarding, suprapubic catheter in place, PEG tube in place with no signs of infection, EXTREMITIES: No edema, pulses are equal bilaterally. No cyanosis or clubbing NEUROLOGY: Mood and affect appear appropriate. Cranial nerves II through XII grossly intact. Moving all extremities Procedures None Urinary Catheter: Yes (suprapubic catheter) Assessment to: Continue Date of Insertion: Jan 07, 2017 Vascular Central Line Catheter: No A/P Assessment and Plan Weakness: Continue physical therapy Nursing staff to get patient up out of bed at least 3 times daily Patient refusing care, refusing to get out of bed with nursing staff and physical therapy, patient will never improve will only worsen. Consulted palliative care for recommendations Palliative care requested consult with psychiatry to see if patient has capacity to make decisions. Psychiatry evaluated patient states that he does not have capacity make his own decisions Palliative care discussed with family who is declining transition to comfort care, hospice. Dementia with inappropriate behavior, mood disorder improved Patient has been hospitalized for similar events in 2015 Consulted psychiatry for further evaluation, who indicated that this is a frontal lobe dementia Risperdal discontinued at family's request Continue Remeron Parkinson's disease: Patient has dementia and resting tremor. Chronic, stable. GI bleed with presenting of Upper GI bleed, patient with intermittent rectal bleeding: Follow-up hemoglobin has remained stable GI was following and reevaluated on 05/04/16 Presumed hemorrhoids, status post Anusol HC for 2 weeks Continue PPI. Protein calorie malnutrition: Improving Consulted dietitian who indicated that patient may be converted to bolus feeding Jevity 1.5, 1.5, 360ml(1.5 cans)@ 0800, 1100, 1400 and 240ml(1-can)@ 1700 and 2000 Prealbumin level 25 Ensure Enlive 3 times a day since pudding 3 times a day PEG tube replaced 11/20/16 Mild pink coloration around PEG tube, instructed nursing staff to clean daily and monitor for infection Hypotension with episodes of hypertension: Stable Continue monitor blood pressure Continue Midodrine. Mild obstructive uropathy: Resolved. With recurrent urinary tract infections. Treat only if symptomatic Suprapubic catheter in place, changed monthly, last changed 01/07/[address] 03/06/16 shows resolution of right sided hydronephrosis. Site around the catheter does have some serosanguineous dried fluid. Instructed nursing staff to clean daily and monitor for infection Seborrhea dermatitis, recurrent Status post Hydrocortisone cream for 2 weeks Counseled nursing staff on proper hygiene to avoid recurrence DVT prophylaxis: SCDs. Avoid chemical prophylaxis secondary to GI bleed. Discharge Planning Discharge planning per case management. Jaguar Walker Jan 18, 2017 10:34
[2017-01-18 21:41] VITALS: BP 106/76; PULSE 68; RESP 16; TEMP 98.2; O2SAT 96
[2017-01-18] MEDS: MIRTAZAPINE 15 MG TAB PEG SCH (22:00)
[2017-01-19] MEDS: MIDODRINE 5 MG TAB PO SCH ×3 (06:14→17:05)
[2017-01-19 08:00] VITALS: BP 126/75; PULSE 70; RESP 15; TEMP 97.3; O2SAT 93
[2017-01-19] MEDS: ALLOPURINOL 100 MG TAB PEG SCH (08:27)
[2017-01-19] MEDS: LANSOPRAZOLE SOLUTAB 30 MG TAB PEG SCH (08:27)
[2017-01-19] MEDS: FREE WATER G-TUBE SCH (08:27)
--- NOTE | 2017-01-19 10:49 | HHI.PR ---
Subjective Remarks Patient seen and examined today for follow-up on weakness, dementia. Patient lying in bed comfortable. Denies any new complaints. No change in clinical status. Objective Vitals Vital Signs Date Time Temp Pulse Resp B/P (MAP) Pulse Ox O2 Delivery O2 Flow Rate FiO2 01/19/17 08:00 97.3 70 15 126/75 (92) 93 01/18/17 21:41 98.2 68 16 106/76 (86) 96 I/O 01/18/17 01/18/17 01/18/17 01/19/17 01/19/17 01/19/17 07:00 15:00 23:00 07:00 15:00 23:00 Intake Total 360 ml Output Total 1200 ml 200 ml Balance -840 ml -200 ml Tube Feeding 240 ml Other 120 ml Output Urine Total 1200 ml 200 ml # Bowel Movements 2 2 Objective Remarks GENERAL: Well-developed, well-nourished, in no acute distress. HEENT: Head is normocephalic without any lesions or masses noted. Facial features are symmetric. Eyes: Extraocular muscles are intact. Conjunctivae were clear. NECK: Trachea midline no deviation. CARDIAC: Regular rhythm, regular rate. S1/S2 are heard. No murmurs gallops or rubs. LUNGS: Clear to auscultation bilaterally. No wheeze, rhonchi or rales. No use of accessory muscles on inspiration or expiration. ABDOMEN: Soft, nontender. Nondistended. Bowel sounds heard in all 4 quadrants. No organomegaly or masses. Negative rebound, negative guarding, suprapubic catheter in place, PEG tube in place with no signs of infection, EXTREMITIES: No edema, pulses are equal bilaterally. No cyanosis or clubbing NEUROLOGY: Mood and affect appear appropriate. Cranial nerves II through XII grossly intact. Moving all extremities Procedures None Urinary Catheter: Yes (suprapubic catheter) Assessment to: Continue Soto insert reason: Obstruction/Retention Date of Insertion: Jan 07, 2017 Vascular Central Line Catheter: No A/P Assessment and Plan Weakness: Continue physical therapy Nursing staff to get patient up out of bed at least 3 times daily Patient refusing care, refusing to get out of bed with nursing staff and physical therapy, patient will never improve will only worsen. Consulted palliative care for recommendations Palliative care requested consult with psychiatry to see if patient has capacity to make decisions. Psychiatry evaluated patient states that he does not have capacity make his own decisions Palliative care discussed with family who is declining transition to comfort care, hospice. Dementia with inappropriate behavior, mood disorder improved Patient has been hospitalized for similar events in 2015 Consulted psychiatry for further evaluation, who indicated that this is a frontal lobe dementia Risperdal discontinued at family's request Continue Remeron Parkinson's disease: Patient has dementia and resting tremor. Chronic, stable. GI bleed with presenting of Upper GI bleed, patient with intermittent rectal bleeding: Follow-up hemoglobin has remained stable GI was following and reevaluated on 05/04/16 Presumed hemorrhoids, status post Anusol HC for 2 weeks Continue PPI. Protein calorie malnutrition: Improving Consulted dietitian who indicated that patient may be converted to bolus feeding Jevity 1.5, 1.5, 360ml(1.5 cans)@ 0800, 1100, 1400 and 240ml(1-can)@ 1700 and 2000 Prealbumin level 25 Ensure Enlive 3 times a day since pudding 3 times a day PEG tube replaced 11/20/16 Mild pink coloration around PEG tube, instructed nursing staff to clean daily and monitor for infection Hypotension with episodes of hypertension: Stable Continue monitor blood pressure Continue Midodrine. Mild obstructive uropathy: Resolved. With recurrent urinary tract infections. Treat only if symptomatic Suprapubic catheter in place, changed monthly, last changed 01/07/[address] 03/06/16 shows resolution of right sided hydronephrosis. Site around the catheter does have some serosanguineous dried fluid. Instructed nursing staff to clean daily and monitor for infection Seborrhea dermatitis, recurrent Status post Hydrocortisone cream for 2 weeks Counseled nursing staff on proper hygiene to avoid recurrence DVT prophylaxis: SCDs. Avoid chemical prophylaxis secondary to GI bleed. Awaiting director case management discharge planning. No change in condition or treatment plan Discharge Planning Discharge planning per case management. Jaguar Walker Jan 19, 2017 10:49
[2017-01-19 12:00] VITALS: BP 106/69; PULSE 75; RESP 17; TEMP 96.5; O2SAT 96
[2017-01-19 16:00] VITALS: BP 103/67; PULSE 70; RESP 16; TEMP 97.7; O2SAT 94
[2017-01-19 20:00] VITALS: BP 112/70; PULSE 68; RESP 18; TEMP 98.4; O2SAT 95
[2017-01-19] MEDS: MIRTAZAPINE 15 MG TAB PEG SCH (23:40)
[2017-01-20] MEDS: MIDODRINE 5 MG TAB PO SCH ×3 (05:32→17:07)
[2017-01-20 08:00] VITALS: BP 120/64; PULSE 67; RESP 20; TEMP 97.6; O2SAT 95
[2017-01-20] MEDS: LANSOPRAZOLE SOLUTAB 30 MG TAB PEG SCH (08:27)
[2017-01-20] MEDS: ALLOPURINOL 100 MG TAB PEG SCH (08:28)
[2017-01-20] MEDS: FREE WATER G-TUBE SCH (08:29)
[2017-01-20 09:33] LABS: AUTOMATED NEUTROPHIL # 4.2 TH/MM3 (1.8-7.7); BASOPHIL % 0.3 % (0.0-2.0); EOSINOPHIL # 0.2 TH/MM3 (0-0.4); EOSINOPHIL % 2.8 % (0.0-4.0); HEMATOCRIT 43.9 % (39.0-51.0); HEMO FLAGS DIFF FINAL; LYMPH % 36.7 % (9.0-44.0); LYMPHOCYTE # 2.7 TH/MM3 (1.0-4.8); MEAN CELL VOLUME 87.1 FL (80.0-100.0); MEAN CORPUSCULAR HEMOGLOBIN 28.6 PG (27.0-34.0); MEAN CORPUSCULAR HGB CONC 32.8 % (32.0-36.0); MONO % 4.6 % (0.0-8.0); NEUT % 55.6 % (16.0-70.0); PLATELET COUNT 180 TH/MM3 (150-450); RED BLOOD COUNT 5.04 MIL/MM3 (4.50-5.90); WHITE BLOOD COUNT 7.4 TH/MM3 (4.0-11.0)
[2017-01-20 10:01] LABS: BICARBONATE 31.6 MEQ/L (21.0-32.0); MAGNESIUM 2.5 MG/DL (1.5-2.5)
[2017-01-20 10:02] LABS: ANION GAP 6 MEQ/L (5-15); CHLORIDE 99 MEQ/L (98-107); POTASSIUM 4.8 MEQ/L (3.5-5.1); SODIUM (NA) 137 MEQ/L (136-145)
[2017-01-20 10:04] LABS: AST (GOT) 47 U/L (15-37); GLOMERULAR FILTRATION RATE 93 ML/MIN (>89)
[2017-01-20 10:05] LABS: ALT (GPT) 20 U/L (12-78)
[2017-01-20 10:07] LABS: ALKALINE PHOSPHATASE 122 U/L (45-117); BLOOD UREA NITROGEN 21 MG/DL (7-18)
[2017-01-20 10:16] LABS: TOTAL BILIRUBIN ADULT 0.5 MG/DL (0.2-1.0)
--- NOTE | 2017-01-20 10:28 | HHI.PR ---
Subjective Remarks Patient seen and examined today for follow-up on weakness and dementia. Patient denies any new complaints. No change in clinical status. Objective Vitals Vital Signs Date Time Temp Pulse Resp B/P (MAP) Pulse Ox O2 Delivery O2 Flow Rate FiO2 01/20/17 08:00 97.6 67 20 120/64 (82) 95 01/19/17 20:00 98.4 68 18 112/70 (84) 95 01/19/17 16:00 97.7 70 16 103/67 (79) 94 01/19/17 12:00 96.5 75 17 106/69 (81) 96 I/O 01/19/17 01/19/17 01/19/17 01/20/17 01/20/17 01/20/17 07:00 15:00 23:00 07:00 15:00 23:00 Intake Total 0 ml 640 ml Output Total 275 ml 700 ml Balance -275 ml -60 ml Intake Oral 0 ml 0 ml Tube Feeding 240 ml Other 400 ml Output Urine Total 275 ml 700 ml # Bowel Movements 2 0 3 Result Diagram: 01/20/1720 01/20/17 0920 Objective Remarks GENERAL: Well-developed, well-nourished, in no acute distress. HEENT: Head is normocephalic without any lesions or masses noted. Facial features are symmetric. Eyes: Extraocular muscles are intact. Conjunctivae were clear. NECK: Trachea midline no deviation. CARDIAC: Regular rhythm, regular rate. S1/S2 are heard. No murmurs gallops or rubs. LUNGS: Clear to auscultation bilaterally. No wheeze, rhonchi or rales. No use of accessory muscles on inspiration or expiration. ABDOMEN: Soft, nontender. Nondistended. Bowel sounds heard in all 4 quadrants. No organomegaly or masses. Negative rebound, negative guarding, suprapubic catheter in place, PEG tube in place with no signs of infection, EXTREMITIES: No edema, pulses are equal bilaterally. No cyanosis or clubbing NEUROLOGY: Mood and affect appear appropriate. Cranial nerves II through XII grossly intact. Moving all extremities Procedures None Urinary Catheter: Yes (suprapubic catheter) Assessment to: Continue Date of Insertion: Jan 07, 2017 Vascular Central Line Catheter: No A/P Assessment and Plan Weakness: Continue physical therapy Nursing staff to get patient up out of bed at least 3 times daily Patient refusing care, refusing to get out of bed with nursing staff and physical therapy, patient will never improve will only worsen. Consulted palliative care for recommendations Palliative care requested consult with psychiatry to see if patient has capacity to make decisions. Psychiatry evaluated patient states that he does not have capacity make his own decisions Palliative care discussed with family who is declining transition to comfort care, hospice. Dementia with inappropriate behavior, mood disorder improved Patient has been hospitalized for similar events in 2015 Consulted psychiatry for further evaluation, who indicated that this is a frontal lobe dementia Risperdal discontinued at family's request Continue Remeron Parkinson's disease: Patient has dementia and resting tremor. Chronic, stable. GI bleed with presenting of Upper GI bleed, patient with intermittent rectal bleeding: Follow-up hemoglobin has remained stable GI was following and reevaluated on 05/04/16 Presumed hemorrhoids, status post Anusol HC for 2 weeks Continue PPI. Protein calorie malnutrition: Improving Consulted dietitian who indicated that patient may be converted to bolus feeding Jevity 1.5, 1.5, 360ml(1.5 cans)@ 0800, 1100, 1400 and 240ml(1-can)@ 1700 and 2000 Prealbumin level 25 Ensure Enlive 3 times a day since pudding 3 times a day PEG tube replaced 11/20/16 Mild pink coloration around PEG tube, instructed nursing staff to clean daily and monitor for infection Hypotension with episodes of hypertension: Stable Continue monitor blood pressure Continue Midodrine. Mild obstructive uropathy: Resolved. With recurrent urinary tract infections. Treat only if symptomatic Suprapubic catheter in place, changed monthly, last changed 01/07/[address] 03/06/16 shows resolution of right sided hydronephrosis. Site around the catheter does have some serosanguineous dried fluid. Instructed nursing staff to clean daily and monitor for infection Seborrhea dermatitis, recurrent Status post Hydrocortisone cream for 2 weeks Counseled nursing staff on proper hygiene to avoid recurrence DVT prophylaxis: SCDs. Avoid chemical prophylaxis secondary to GI bleed. Awaiting patient case coordinator discharge planning. No change in condition or treatment plan Discharge Planning Discharge planning per case management. Jaguar Walker Jan 20, 2017 10:28
[2017-01-20 20:15] VITALS: BP 142/97; PULSE 85; RESP 18; TEMP 97.1; O2SAT 94
[2017-01-20] MEDS: MIRTAZAPINE 15 MG TAB PEG SCH (21:49)
[2017-01-21] MEDS: MIDODRINE 5 MG TAB PO SCH ×3 (04:35→17:35)
[2017-01-21 08:00] VITALS: BP 135/86; PULSE 97; RESP 20; TEMP 96.1; O2SAT 96
[2017-01-21] MEDS: FREE WATER G-TUBE SCH (09:00)
[2017-01-21] MEDS: LANSOPRAZOLE SOLUTAB 30 MG TAB PEG SCH (09:27)
[2017-01-21] MEDS: ALLOPURINOL 100 MG TAB PEG SCH (09:28)
--- NOTE | 2017-01-21 10:22 | HHI.PR ---
Subjective Remarks Follow-up for dementia. No acute complaints. Objective Vitals Vital Signs Date Time Temp Pulse Resp B/P (MAP) Pulse Ox O2 Delivery O2 Flow Rate FiO2 01/20/17 20:15 97.1 85 18 142/97 (112) 94 I/O 01/20/17 01/20/17 01/20/17 01/21/17 01/21/17 01/21/17 07:00 15:00 23:00 07:00 15:00 23:00 Intake Total 640 ml 440 ml Output Total 700 ml 600 ml 1400 ml Balance -60 ml -600 ml -960 ml Intake Oral 0 ml Tube Feeding 240 ml 240 ml Other 400 ml 200 ml Output Urine Total 700 ml 600 ml 1400 ml # Bowel Movements 3 2 Result Diagram: 01/20/1791901/20/17919 Objective Remarks GENERAL: Elderly male in no apparent distress. CARDIOVASCULAR: Regular rate and rhythm. RESPIRATORY: No accessory muscle use. CTAB. GASTROINTESTINAL: Abdomen soft, nontender, nondistended. NEURO: Awake and alert. Procedures None Urinary Catheter: Yes Assessment to: Continue Soto insert reason: Obstruction/Retention Date of Insertion: Jan 07, 2017 Vascular Central Line Catheter: No A/P Assessment and Plan Dementia with inappropriate behavior, mood disorder improved Patient had inappropriate behavior which is resolved now. Patient has been hospitalized for similar events in 2015 Consulted psychiatry for further evaluation, who indicated that this is a frontal lobe dementia. Risperdal was discontinued per POA request. Continue Remeron Psychiatry following; states patient does not have decisional capacity. Palliative care following. Son declines hospice. Protein calorie malnutrition: Improving Jevity 1.5 w/ bolus 1.5 cans (360ml) @ 0800, 1100 and 1400 and 1 can (240ml) @ 1700 and 2000. Free Water Flush 100ml before and after each bolus feeding. Plateman following. Ensure Enlive tid and chocolate pudding tid. Patient desired to eat and speech therapy advised puree diet, thin liquids, but patient has not been eating. Plateman suggested considering appetite stimulant. This was discussed with attending, but we do not believe this would be beneficial for patient and would add unnecessary risk to the patient. Will continue with tube feeds only. Hematuria: Resolved. -Patient is not on anticoagulation. -Hemoglobin normal. -Creatinine is normal. -UA 4/5 with innumerable RBCs, but urine sample not grossly bloody. Urinary tract infection, recurrent: Urine culture positive for Proteus mirabilis and GBS on 01/20. Patient completed course of antibiotics. Abdominal pelvis CT 03/06 shows decompressed bladder with circumferential bladder wall thickening and intraluminal air possibly indicating cystitis, but the patient had been afebrile with normal WBC count. Urine culture 05/31 with Serratia marcescens, Pseudomonas, and Enterococcus faecalis. Patient was started on antibiotics. Repeat urine culture on 06/04 only reveals contaminants. Urine culture /5 with Enterococcus faecalis and Pseudomonas Aeruginosa similar to previous culture on 05/31. Patient remains afebrile. CBC with normal white blood cell count. Continue to change Soto monthly. 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 Monitor and treat only if symptomatic. Mild obstructive uropathy: Resolved. Appreciate urology recommendations. Suprapubic catheter to be changed monthly; last changed 01/07/17. Abdominal pelvis CT 03/06/16 shows resolution of right sided hydronephrosis. Upper GI bleeding with recurrent rectal bleeding: Resolved. Hemoglobin stable. GI reevaluated patient on 05/04. Presumed hemorrhoids, s/p Anusol HC for total of 2 weeks. Continue PPI. Seborrheic dermatitis: Stable S/p Ketoconazole 2% shampoo, hydrocortisone lotion, and multiple courses of hydrocortisone cream. Continue washing face regularly Chalazion: Nodule R upper eyelid. No evidence of preseptal cellulitis. -Warm compresses were applied but it was greater than 2 weeks without significant improvement. -Ophthalmology was consulted and evaluated patient on 03/26. S/p Tobradex 4 times a day OD x 2 weeks. Patient was intermittently compliant with eyedrops. -No worsening. Follow-up outpatient. Hypotension: chronic Blood pressure labile. Continue Midodrine. Patient on max dose. Increase free water flushes as needed. Pre-renal azotemia: Improved Continue free water flushes Stage I decubitus ulcer, sacral skin tear: Continue wound care, barrier cream Frequent turning of patient. Candidal infection: buttocks affected with satellite lesions to the perineum. Resolved. -S/p Nystatin and clotrimazole Weakness: Continue physical therapy Nursing staff to get patient up out of bed at least 3 times daily DVT prophylaxis: SCDs. Avoid chemical prophylaxis secondary to GI bleed. Discharge Planning 01/03/17: Per [place] GEORGE the patient's son wants to try to get [place] [facility]. DORIS called [place] Rosario for eval. Madeline Ortez Jan 21, 2017 10:22
[2017-01-21 20:00] VITALS: BP 121/78; PULSE 80; RESP 18; TEMP 96.8; O2SAT 96
[2017-01-21] MEDS: MIRTAZAPINE 15 MG TAB PEG SCH (23:26)
[2017-01-22] MEDS: MIDODRINE 5 MG TAB PO SCH ×3 (05:21→13:58)
[2017-01-22 08:00] VITALS: BP 121/76; PULSE 79; RESP 17; TEMP 98; O2SAT 95
[2017-01-22] MEDS: ACETAMINOPHEN 325 MG TAB PO PRN (08:10)
[2017-01-22] MEDS: LANSOPRAZOLE SOLUTAB 30 MG TAB PEG SCH (08:10)
[2017-01-22] MEDS: ALLOPURINOL 100 MG TAB PEG SCH (08:10)
[2017-01-22] MEDS: FREE WATER G-TUBE SCH (09:00)
--- NOTE | 2017-01-22 10:08 | HHI.PR ---
Subjective Remarks Follow-up for dementia. No acute complaints. Objective Vitals Vital Signs Date Time Temp Pulse Resp B/P (MAP) Pulse Ox O2 Delivery O2 Flow Rate FiO2 01/22/17 09:10 20 01/22/17 08:00 98.0 79 17 121/76 (91) 95 01/21/17 20:00 96.8 80 18 121/78 (92) 96 I/O 01/21/17 01/21/17 01/21/17 01/22/17 01/22/17 01/22/17 07:00 15:00 23:00 07:00 15:00 23:00 Intake Total 440 ml 1530 ml 880 ml 100 ml Output Total 1400 ml 225 ml 200 ml Balance -960 ml 1530 ml 655 ml -100 ml Intake Oral 0 ml 0 ml Tube Feeding 240 ml 1080 ml 480 ml Tube Irrigant 450 ml 200 ml Other 200 ml 200 ml 100 ml Output Urine Total 1400 ml 225 ml 200 ml # Bowel Movements 1 1 Result Diagram: 01/20/1720 01/20/17919 Objective Remarks GENERAL: Elderly male in no apparent distress. SKIN: Flaky skin to to the face and neck. CARDIOVASCULAR: Regular rate and rhythm. RESPIRATORY: No accessory muscle use. CTAB. GASTROINTESTINAL: Abdomen soft, nontender, nondistended. NEURO: Awake and alert. Procedures None Urinary Catheter: No Date of Insertion: Jan 07, 2017 Vascular Central Line Catheter: No A/P Assessment and Plan Dementia with inappropriate behavior, mood disorder improved Patient had inappropriate behavior which is resolved now. Patient has been hospitalized for similar events in 2015 Consulted psychiatry for further evaluation, who indicated that this is a frontal lobe dementia. Risperdal was discontinued per POA request. Continue Remeron Psychiatry following; states patient does not have decisional capacity. Palliative care following. Son declines hospice. Protein calorie malnutrition: Improving Jevity 1.5 w/ bolus 1.5 cans (360ml) @ 0800, 1100 and 1400 and 1 can (240ml) @ 1700 and 2000. Free Water Flush 100ml before and after each bolus feeding. Civil Engineering Teacher following. Ensure Enlive tid and chocolate pudding tid. Patient desired to eat and speech therapy advised puree diet, thin liquids, but patient has not been eating. Civil Engineering Teacher suggested considering appetite stimulant. This was discussed with attending, but we do not believe this would be beneficial for patient and would add unnecessary risk to the patient. Will continue with tube feeds only. Hematuria: Resolved. -Patient is not on anticoagulation. -Hemoglobin normal. -Creatinine is normal. -UA 4/5 with innumerable RBCs, but urine sample not grossly bloody. Urinary tract infection, recurrent: Urine culture positive for Proteus mirabilis and GBS on 01/20. Patient completed course of antibiotics. Abdominal pelvis CT 03/06 shows decompressed bladder with circumferential bladder wall thickening and intraluminal air possibly indicating cystitis, but the patient had been afebrile with normal WBC count. Urine culture 05/31 with Serratia marcescens, Pseudomonas, and Enterococcus faecalis. Patient was started on antibiotics. Repeat urine culture on 06/04 only reveals contaminants. Urine culture 08/07 with Enterococcus faecalis and Pseudomonas Aeruginosa similar to previous culture on 05/31. Patient remains afebrile. CBC with normal white blood cell count. Continue to change Soto monthly. 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 Monitor and treat only if symptomatic. Mild obstructive uropathy: Resolved. Appreciate urology recommendations. Suprapubic catheter to be changed monthly; last changed 01/07/17. Abdominal pelvis CT 03/06/16 shows resolution of right sided hydronephrosis. Upper GI bleeding with recurrent rectal bleeding: Resolved. Hemoglobin stable. GI reevaluated patient on 05/04. Presumed hemorrhoids, s/p Anusol HC for total of 2 weeks. Continue PPI. Seborrheic dermatitis: Stable S/p Ketoconazole 2% shampoo, hydrocortisone lotion, and multiple courses of hydrocortisone cream. Continue washing face regularly Chalazion: Nodule R upper eyelid. No evidence of preseptal cellulitis. -Warm compresses were applied but it was greater than 2 weeks without significant improvement. -Ophthalmology was consulted and evaluated patient on 03/26. S/p Tobradex 4 times a day OD x 2 weeks. Patient was intermittently compliant with eyedrops. -No worsening. Follow-up outpatient. Hypotension: chronic Blood pressure labile. Continue Midodrine. Patient on max dose. Increase free water flushes as needed. Pre-renal azotemia: Improved Continue free water flushes Stage I decubitus ulcer, sacral skin tear: Continue wound care, barrier cream Frequent turning of patient. Candidal infection: buttocks affected with satellite lesions to the perineum. Resolved. -S/p Nystatin and clotrimazole Weakness: Continue physical therapy Nursing staff to get patient up out of bed at least 3 times daily DVT prophylaxis: SCDs. Avoid chemical prophylaxis secondary to GI bleed. Discharge Planning 01/03/17: Per [place] GEORGE the patient's son wants to try to [place] [facility]. CM called [place] Rosario for eval. Madeline Ortez Jan 22, 2017 10:08
[2017-01-22 20:00] VITALS: BP 96/61; PULSE 68; RESP 20; TEMP 97.6; O2SAT 97
[2017-01-22] MEDS: MIRTAZAPINE 15 MG TAB PEG SCH (21:00)
[2017-01-23] MEDS: MIDODRINE 5 MG TAB PO SCH ×3 (06:04→17:39)
[2017-01-23 08:00] VITALS: BP 122/66; PULSE 61; RESP 18; TEMP 96.8; O2SAT 97
[2017-01-23] MEDS: ALLOPURINOL 100 MG TAB PEG SCH (09:29)
[2017-01-23] MEDS: LANSOPRAZOLE SOLUTAB 30 MG TAB PEG SCH (09:29)
[2017-01-23] MEDS: FREE WATER G-TUBE SCH (09:38)
--- NOTE | 2017-01-23 11:11 | HHI.PR ---
Subjective Remarks Follow up for dementia. No acute complaints. Objective Vitals Vital Signs Date Time Temp Pulse Resp B/P (MAP) Pulse Ox O2 Delivery O2 Flow Rate FiO2 01/23/17 08:00 96.8 61 18 122/66 (84) 97 01/22/17 20:00 97.6 68 20 96/61 (73) 97 I/O 01/22/17 01/22/17 01/22/17 01/23/17 01/23/17 01/23/17 06:59 14:59 22:59 06:59 14:59 22:59 Intake Total 540 ml 440 ml 0 ml Output Total 200 ml 250 ml 325 ml 200 ml Balance 340 ml -250 ml 115 ml -200 ml Intake Oral 0 ml 0 ml 0 ml Tube Feeding 240 ml 240 ml Tube Irrigant 200 ml Other 300 ml Output Urine Total 200 ml 250 ml 325 ml 200 ml # Bowel Movements 1 0 0 Result Diagram: 01/20/1791901/20/17919 Objective Remarks GENERAL: Elderly male in no apparent distress. SKIN: Flaky skin to to the lower face and neck. CARDIOVASCULAR: Regular rate and rhythm. RESPIRATORY: No accessory muscle use. CTAB. GASTROINTESTINAL: Abdomen soft, nontender, nondistended. NEURO: Awake and alert. Procedures None Urinary Catheter: Yes Assessment to: Continue Soto insert reason: Obstruction/Retention Date of Insertion: Jan 07, 2017 Vascular Central Line Catheter: No A/P Assessment and Plan Dementia with inappropriate behavior, mood disorder improved Patient had inappropriate behavior which is resolved now. Patient has been hospitalized for similar events in 2015 Consulted psychiatry for further evaluation, who indicated that this is a frontal lobe dementia. Risperdal was discontinued per POA request. Continue Remeron Psychiatry following; states patient does not have decisional capacity. Palliative care following. Son declines hospice. Protein calorie malnutrition: Improving Jevity 1.5 w/ bolus 1.5 cans (360ml) @ 0800, 1100 and 1400 and 1 can (240ml) @ 1700 and 2000. Free Water Flush 100ml before and after each bolus feeding. Advertisement Distributor following. Ensure Enlive tid and chocolate pudding tid. Patient desired to eat and speech therapy advised puree diet, thin liquids, but patient has not been eating. Advertisement Distributor suggested considering appetite stimulant. This was discussed with attending, but we do not believe this would be beneficial for patient and would add unnecessary risk to the patient. Will continue with tube feeds only. Hematuria: Resolved. -Patient is not on anticoagulation. -Hemoglobin normal. -Creatinine is normal. -UA 4/5 with innumerable RBCs, but urine sample not grossly bloody. Urinary tract infection, recurrent: Urine culture positive for Proteus mirabilis and GBS on 01/20. Patient completed course of antibiotics. Abdominal pelvis CT 03/06 shows decompressed bladder with circumferential bladder wall thickening and intraluminal air possibly indicating cystitis, but the patient had been afebrile with normal WBC count. Urine culture 05/31 with Serratia marcescens, Pseudomonas, and Enterococcus faecalis. Patient was started on antibiotics. Repeat urine culture on 06/04 only reveals contaminants. Urine culture 08/07 with Enterococcus faecalis and Pseudomonas Aeruginosa similar to previous culture on 05/31. Patient remains afebrile. CBC with normal white blood cell count. Continue to change Soto monthly. 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 Monitor and treat only if symptomatic. Mild obstructive uropathy: Resolved. Appreciate urology recommendations. Suprapubic catheter to be changed monthly; last changed 01/07/17. Abdominal pelvis CT 03/06/16 shows resolution of right sided hydronephrosis. Upper GI bleeding with recurrent rectal bleeding: Resolved. Hemoglobin stable. GI reevaluated patient on 05/04. Presumed hemorrhoids, s/p Anusol HC for total of 2 weeks. Continue PPI. Seborrheic dermatitis: Stable S/p Ketoconazole 2% shampoo, hydrocortisone lotion, and multiple courses of hydrocortisone cream. Continue washing face regularly Chalazion: Nodule R upper eyelid. No evidence of preseptal cellulitis. -Warm compresses were applied but it was greater than 2 weeks without significant improvement. -Ophthalmology was consulted and evaluated patient on 03/26. S/p Tobradex 4 times a day OD x 2 weeks. Patient was intermittently compliant with eyedrops. -No worsening. Follow-up outpatient. Hypotension: chronic Blood pressure labile. Continue Midodrine. Patient on max dose. Increase free water flushes as needed. Pre-renal azotemia: Improved Continue free water flushes Stage I decubitus ulcer, sacral skin tear: Continue wound care, barrier cream Frequent turning of patient. Candidal infection: buttocks affected with satellite lesions to the perineum. Resolved. -S/p Nystatin and clotrimazole Weakness: Continue physical therapy Nursing staff to get patient up out of bed at least 3 times daily DVT prophylaxis: SCDs. Avoid chemical prophylaxis secondary to GI bleed. Discharge Planning 01/03/17: Per [place] GEORGE the patient's son wants to try to get patient [place] on [place] [facility]. CM called [place] Rosario for eval. Madeline Ortez Jan 23, 2017 11:10
[2017-01-23 20:00] VITALS: BP 121/82; PULSE 76; RESP 18; TEMP 96.8; O2SAT 96
[2017-01-23] MEDS: MIRTAZAPINE 15 MG TAB PEG SCH (20:12)
[2017-01-24] MEDS: MIDODRINE 5 MG TAB PO SCH ×3 (04:52→17:36)
[2017-01-24 08:24] VITALS: BP 105/61; PULSE 72; RESP 19; TEMP 98.6; O2SAT 94
[2017-01-24] MEDS: FREE WATER G-TUBE SCH (09:08)
[2017-01-24] MEDS: LANSOPRAZOLE SOLUTAB 30 MG TAB PEG SCH (09:09)
[2017-01-24] MEDS: ALLOPURINOL 100 MG TAB PEG SCH (09:10)
--- NOTE | 2017-01-24 10:01 | HHI.PR ---
Subjective Remarks Follow-up for dementia. No acute complaints. Objective Vitals Vital Signs Date Time Temp Pulse Resp B/P (MAP) Pulse Ox O2 Delivery O2 Flow Rate FiO2 01/24/17 08:24 98.6 72 19 105/61 (76) 94 01/23/17 20:00 96.8 76 18 121/82 (95) 96 I/O 01/23/17 01/23/17 01/23/17 01/24/17 01/24/17 01/24/17 07:00 15:00 23:00 07:00 15:00 23:00 Intake Total 0 ml 1600 ml 540 ml 490 ml 200 ml Output Total 200 ml 350 ml 325 ml Balance -200 ml 1250 ml 215 ml 490 ml 200 ml Intake Oral 0 ml 0 ml 0 ml Tube Feeding 1080 ml 240 ml 240 ml Tube Irrigant 520 ml 300 ml 200 ml Other 250 ml Output Urine Total 200 ml 350 ml 325 ml # Bowel Movements 0 0 0 Result Diagram: 01/20/1791901/20/17919 Objective Remarks GENERAL: Elderly male in no apparent distress. SKIN: Flaky skin to to the lower face and neck. CARDIOVASCULAR: Regular rate and rhythm. RESPIRATORY: No accessory muscle use. CTAB. GASTROINTESTINAL: Abdomen soft, nontender, nondistended. NEURO: Awake and alert. Procedures None Urinary Catheter: Yes Assessment to: Continue Soto insert reason: Obstruction/Retention Date of Insertion: Jan 07, 2017 Vascular Central Line Catheter: No A/P Assessment and Plan Dementia with inappropriate behavior, mood disorder improved Patient had inappropriate behavior which is resolved now. Patient has been hospitalized for similar events in 2015 Consulted psychiatry for further evaluation, who indicated that this is a frontal lobe dementia. Risperdal was discontinued per POA request. Continue Remeron Psychiatry following; states patient does not have decisional capacity. Palliative care following. Son declines hospice. Protein calorie malnutrition: Improving Jevity 1.5 w/ bolus 1.5 cans (360ml) @ 0800, 1100 and 1400 and 1 can (240ml) @ 1700 and 2000. Free Water Flush 100ml before and after each bolus feeding. Luggage Maker following. Ensure Enlive tid and chocolate pudding tid. Patient desired to eat and speech therapy advised puree diet, thin liquids, but patient has not been eating. Luggage Maker suggested considering appetite stimulant. This was discussed with attending, but we do not believe this would be beneficial for patient and would add unnecessary risk to the patient. Will continue with tube feeds only. Hematuria: Resolved. -Patient is not on anticoagulation. -Hemoglobin normal. -Creatinine is normal. -UA 4/5 with innumerable RBCs, but urine sample not grossly bloody. Urinary tract infection, recurrent: Urine culture positive for Proteus mirabilis and GBS on 01/20. Patient completed course of antibiotics. Abdominal pelvis CT 03/06 shows decompressed bladder with circumferential bladder wall thickening and intraluminal air possibly indicating cystitis, but the patient had been afebrile with normal WBC count. Urine culture 05/31 with Serratia marcescens, Pseudomonas, and Enterococcus faecalis. Patient was started on antibiotics. Repeat urine culture on 06/04 only reveals contaminants. Urine culture 08/07 with Enterococcus faecalis and Pseudomonas Aeruginosa similar to previous culture on 05/31. Patient remains afebrile. CBC with normal white blood cell count. Continue to change Soto monthly. 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 Monitor and treat only if symptomatic. Mild obstructive uropathy: Resolved. Appreciate urology recommendations. Suprapubic catheter to be changed monthly; last changed 01/07/17. Abdominal pelvis CT 03/06/16 shows resolution of right sided hydronephrosis. Upper GI bleeding with recurrent rectal bleeding: Resolved. Hemoglobin stable. GI reevaluated patient on 05/04. Presumed hemorrhoids, s/p Anusol HC for total of 2 weeks. Continue PPI. Seborrheic dermatitis: Stable S/p Ketoconazole 2% shampoo, hydrocortisone lotion, and multiple courses of hydrocortisone cream. Continue washing face regularly Chalazion: Nodule R upper eyelid. No evidence of preseptal cellulitis. -Warm compresses were applied but it was greater than 2 weeks without significant improvement. -Ophthalmology was consulted and evaluated patient on 03/26. S/p Tobradex 4 times a day OD x 2 weeks. Patient was intermittently compliant with eyedrops. -No worsening. Follow-up outpatient. Hypotension: chronic Blood pressure labile. Continue Midodrine. Patient on max dose. Increase free water flushes as needed. Pre-renal azotemia: Improved Continue free water flushes Stage I decubitus ulcer, sacral skin tear: Continue wound care, barrier cream Frequent turning of patient. Candidal infection: buttocks affected with satellite lesions to the perineum. Resolved. -S/p Nystatin and clotrimazole Weakness: Continue physical therapy Nursing staff to get patient up out of bed at least 3 times daily DVT prophylaxis: SCDs. Avoid chemical prophylaxis secondary to GI bleed. Discharge Planning 01/03/17: Per [place] GEORGE the patient's son wants to try to get [place] [facility]. CM called [place] Rosario for eval. Madeline Ortez Jan 24, 2017 10:01
[2017-01-24] MEDS: MIRTAZAPINE 15 MG TAB PEG SCH (20:01)
[2017-01-24 20:22] VITALS: BP 119/67; PULSE 80; RESP 12; TEMP 98.6; O2SAT 94
[2017-01-25] MEDS: MIDODRINE 5 MG TAB PO SCH ×3 (05:23→16:56)
[2017-01-25 08:00] VITALS: BP 129/79; PULSE 72; RESP 20; TEMP 97; O2SAT 98
[2017-01-25] MEDS: FREE WATER G-TUBE SCH (09:00)
[2017-01-25] MEDS: LANSOPRAZOLE SOLUTAB 30 MG TAB PEG SCH (10:53)
[2017-01-25] MEDS: ALLOPURINOL 100 MG TAB PEG SCH (10:53)
--- NOTE | 2017-01-25 11:09 | HHI.PR ---
Subjective Remarks Follow-up for dementia. No acute complaints. Objective Vitals Vital Signs Date Time Temp Pulse Resp B/P (MAP) Pulse Ox O2 Delivery O2 Flow Rate FiO2 01/25/17 08:00 97.0 72 20 129/79 (96) 98 01/24/17 20:22 98.6 80 12 119/67 (84) 94 I/O 01/24/17 01/24/17 01/24/17 01/25/17 01/25/17 01/25/17 07:00 15:00 23:00 07:00 15:00 23:00 Intake Total 490 ml 1320 ml 1000 ml 490 ml Output Total 1200 ml Balance 490 ml 1320 ml 1000 ml -710 ml Tube Feeding 240 ml 720 ml 600 ml 240 ml Tube Irrigant 600 ml 400 ml Other 250 ml 250 ml Output Urine Total 1200 ml # Bowel Movements 1 Objective Remarks GENERAL: Elderly male in no apparent distress. SKIN: Flaky skin to to the face and neck. CARDIOVASCULAR: Regular rate and rhythm. RESPIRATORY: No accessory muscle use. CTAB. GASTROINTESTINAL: Abdomen soft, nontender, nondistended. NEURO: Awake and alert. Procedures None Urinary Catheter: Yes Assessment to: Continue Soto insert reason: Obstruction/Retention Date of Insertion: Jan 07, 2017 Vascular Central Line Catheter: No A/P Assessment and Plan Dementia with inappropriate behavior, mood disorder improved Patient had inappropriate behavior which is resolved now. Patient has been hospitalized for similar events in 2015 Consulted psychiatry for further evaluation, who indicated that this is a frontal lobe dementia. Risperdal was discontinued per POA request. Continue Remeron Psychiatry following; states patient does not have decisional capacity. Palliative care following. Son declines hospice. Protein calorie malnutrition: Improving Jevity 1.5 w/ bolus 1.5 cans (360ml) @ 0800, 1100 and 1400 and 1 can (240ml) @ 1700 and 2000. Free Water Flush 100ml before and after each bolus feeding. Veneer Patcher following. Ensure Enlive tid and chocolate pudding tid. Patient desired to eat and speech therapy advised puree diet, thin liquids, but patient has not been eating. Veneer Patcher suggested considering appetite stimulant. This was discussed with attending, but we do not believe this would be beneficial for patient and would add unnecessary risk to the patient. Will continue with tube feeds only. Hematuria: Resolved. -Patient is not on anticoagulation. -Hemoglobin normal. -Creatinine is normal. -UA 4/5 with innumerable RBCs, but urine sample not grossly bloody. Urinary tract infection, recurrent: Urine culture positive for Proteus mirabilis and GBS on 01/20. Patient completed course of antibiotics. Abdominal pelvis CT 03/06 shows decompressed bladder with circumferential bladder wall thickening and intraluminal air possibly indicating cystitis, but the patient had been afebrile with normal WBC count. Urine culture 05/31 with Serratia marcescens, Pseudomonas, and Enterococcus faecalis. Patient was started on antibiotics. Repeat urine culture on 06/04 only reveals contaminants. Urine culture /5 with Enterococcus faecalis and Pseudomonas Aeruginosa similar to previous culture on 05/31. Patient remains afebrile. CBC with normal white blood cell count. Continue to change Soto monthly. 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 Monitor and treat only if symptomatic. Mild obstructive uropathy: Resolved. Appreciate urology recommendations. Suprapubic catheter to be changed monthly; last changed 01/07/17. Abdominal pelvis CT 03/06/16 shows resolution of right sided hydronephrosis. Upper GI bleeding with recurrent rectal bleeding: Resolved. Hemoglobin stable. GI reevaluated patient on 05/04. Presumed hemorrhoids, s/p Anusol HC for total of 2 weeks. Continue PPI. Seborrheic dermatitis: Stable S/p Ketoconazole 2% shampoo, hydrocortisone lotion, and multiple courses of hydrocortisone cream. Continue washing face regularly Chalazion: Nodule R upper eyelid. No evidence of preseptal cellulitis. -Warm compresses were applied but it was greater than 2 weeks without significant improvement. -Ophthalmology was consulted and evaluated patient on 03/26. S/p Tobradex 4 times a day OD x 2 weeks. Patient was intermittently compliant with eyedrops. -No worsening. Follow-up outpatient. Hypotension: chronic Blood pressure labile. Continue Midodrine. Patient on max dose. Increase free water flushes as needed. Pre-renal azotemia: Improved Continue free water flushes Stage I decubitus ulcer, sacral skin tear: Continue wound care, barrier cream Frequent turning of patient. Candidal infection: buttocks affected with satellite lesions to the perineum. Resolved. -S/p Nystatin and clotrimazole Weakness: Continue physical therapy Nursing staff to get patient up out of bed at least 3 times daily DVT prophylaxis: SCDs. Avoid chemical prophylaxis secondary to GI bleed. Discharge Planning 01/23/17: [place] declined patient. CM called [facility] to evaluate patient and speak to son regarding placement. Madeline Ortez Jan 25, 2017 11:09
[2017-01-25 20:22] VITALS: BP 102/70; PULSE 70; RESP 12; TEMP 96.4; O2SAT 93
[2017-01-25] MEDS: MIRTAZAPINE 15 MG TAB PEG SCH (20:38)
[2017-01-26] MEDS: MIDODRINE 5 MG TAB PO SCH ×3 (05:18→17:53)
[2017-01-26 08:00] VITALS: BP 128/77; PULSE 86; RESP 20; TEMP 97.3; O2SAT 96
[2017-01-26] MEDS: FREE WATER G-TUBE SCH (09:00)
[2017-01-26] MEDS: LANSOPRAZOLE SOLUTAB 30 MG TAB PEG SCH (09:01)
[2017-01-26] MEDS: ALLOPURINOL 100 MG TAB PEG SCH (09:01)
--- NOTE | 2017-01-26 11:33 | HHI.PR ---
Subjective Remarks Follow-up for dementia. No acute complaints. Objective Vitals Vital Signs Date Time Temp Pulse Resp B/P (MAP) Pulse Ox O2 Delivery O2 Flow Rate FiO2 01/26/17 08:00 97.3 86 20 128/77 (94) 96 01/25/17 20:22 96.4 70 12 102/70 (81) 93 I/O 01/25/17 01/25/17 01/25/17 01/26/17 01/26/17 01/26/17 06:59 14:59 22:59 06:59 14:59 22:59 Intake Total 490 ml 1820 ml Output Total 1200 ml 1300 ml 1350 ml Balance -710 ml 520 ml -1350 ml Tube Feeding 240 ml 1320 ml Other 250 ml 500 ml Output Urine Total 1200 ml 1300 ml 1350 ml # Voids 0 1 # Bowel Movements 2 Objective Remarks GENERAL: Elderly male in no apparent distress sleeping when I enter the room. SKIN: Flaky skin to to the face and neck. CARDIOVASCULAR: Regular rate and rhythm. RESPIRATORY: No accessory muscle use. CTAB. GASTROINTESTINAL: Abdomen soft, nontender, nondistended. NEURO: Awake and alert. Procedures None Urinary Catheter: Yes Assessment to: Continue Soto insert reason: Obstruction/Retention Date of Insertion: Jan 07, 2017 Vascular Central Line Catheter: No A/P Assessment and Plan Dementia with inappropriate behavior, mood disorder improved Patient had inappropriate behavior which is resolved now. Patient has been hospitalized for similar events in 2015 Consulted psychiatry for further evaluation, who indicated that this is a frontal lobe dementia. Risperdal was discontinued per POA request. Continue Remeron Psychiatry following; states patient does not have decisional capacity. Palliative care following. Son declines hospice. Protein calorie malnutrition: Improving Jevity 1.5 w/ bolus 1.5 cans (360ml) @ 0800, 1100 and 1400 and 1 can (240ml) @ 1700 and 2000. Free Water Flush 100ml before and after each bolus feeding. Administration Intern following. Ensure Enlive tid and chocolate pudding tid. Patient desired to eat and speech therapy advised puree diet, thin liquids, but patient has not been eating. Administration Intern suggested considering appetite stimulant. This was discussed with attending, but we do not believe this would be beneficial for patient and would add unnecessary risk to the patient. Will continue with tube feeds only. Hematuria: Resolved. -Patient is not on anticoagulation. -Hemoglobin normal. -Creatinine is normal. -UA 4/5 with innumerable RBCs, but urine sample not grossly bloody. Urinary tract infection, recurrent: Urine culture positive for Proteus mirabilis and GBS on 01/20. Patient completed course of antibiotics. Abdominal pelvis CT 03/06 shows decompressed bladder with circumferential bladder wall thickening and intraluminal air possibly indicating cystitis, but the patient had been afebrile with normal WBC count. Urine culture 05/31 with Serratia marcescens, Pseudomonas, and Enterococcus faecalis. Patient was started on antibiotics. Repeat urine culture on 06/04 only reveals contaminants. Urine culture / with Enterococcus faecalis and Pseudomonas Aeruginosa similar to previous culture on 05/31. Patient remains afebrile. CBC with normal white blood cell count. Continue to change Soto monthly. 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 Monitor and treat only if symptomatic. Mild obstructive uropathy: Resolved. Appreciate urology recommendations. Suprapubic catheter to be changed monthly; last changed 01/07/17. Abdominal pelvis CT 03/06/16 shows resolution of right sided hydronephrosis. Upper GI bleeding with recurrent rectal bleeding: Resolved. Hemoglobin stable. GI reevaluated patient on 05/04. Presumed hemorrhoids, s/p Anusol HC for total of 2 weeks. Continue PPI. Seborrheic dermatitis: Stable S/p Ketoconazole 2% shampoo, hydrocortisone lotion, and multiple courses of hydrocortisone cream. Continue washing face regularly Chalazion: Nodule R upper eyelid. No evidence of preseptal cellulitis. -Warm compresses were applied but it was greater than 2 weeks without significant improvement. -Ophthalmology was consulted and evaluated patient on 03/26. S/p Tobradex 4 times a day OD x 2 weeks. Patient was intermittently compliant with eyedrops. -No worsening. Follow-up outpatient. Hypotension: chronic Blood pressure labile. Continue Midodrine. Patient on max dose. Increase free water flushes as needed. Pre-renal azotemia: Improved Continue free water flushes Stage I decubitus ulcer, sacral skin tear: Continue wound care, barrier cream Frequent turning of patient. Candidal infection: buttocks affected with satellite lesions to the perineum. Resolved. -S/p Nystatin and clotrimazole Weakness: Continue physical therapy Nursing staff to get patient up out of bed at least 3 times daily DVT prophylaxis: SCDs. Avoid chemical prophylaxis secondary to GI bleed. Discharge Planning 01/23/17: [place] declined patient. CM called [facility] to evaluate patient and speak to son regarding placement. Madeline Ortez Jan 26, 2017 11:33
[2017-01-26 20:00] VITALS: BP 108/66; PULSE 74; RESP 20; TEMP 97.7; O2SAT 95
[2017-01-26] MEDS: MIRTAZAPINE 15 MG TAB PEG SCH (20:24)
[2017-01-27] VITALS: BP 182/101; PULSE 115; RESP 20; TEMP 98.5; O2SAT 96
[2017-01-27] MEDS: MIDODRINE 5 MG TAB PO SCH ×3 (06:13→17:43)
[2017-01-27 08:00] VITALS: BP 131/87; PULSE 72; RESP 17; TEMP 97.6; O2SAT 96
[2017-01-27] MEDS: ALLOPURINOL 100 MG TAB PEG SCH (08:42)
[2017-01-27] MEDS: LANSOPRAZOLE SOLUTAB 30 MG TAB PEG SCH (08:42)
[2017-01-27] MEDS: FREE WATER G-TUBE SCH (08:42)
--- NOTE | 2017-01-27 09:41 | HHI.PR ---
Subjective Remarks Follow-up for dementia. No acute complaints. Objective Vitals Vital Signs Date Time Temp Pulse Resp B/P (MAP) Pulse Ox O2 Delivery O2 Flow Rate FiO2 01/27/17 08:00 97.6 72 17 131/87 (102) 96 01/26/17 20:00 97.7 74 20 108/66 (80) 95 I/O 01/26/17 01/26/17 01/26/17 01/27/17 01/27/17 01/27/17 07:00 15:00 23:00 07:00 15:00 23:00 Intake Total 2120 ml 440 ml Output Total 1350 ml 775 ml 300 ml Balance -1350 ml 1345 ml 140 ml Intake Oral 0 ml 0 ml Tube Feeding 1320 ml 240 ml Other 800 ml 200 ml Output Urine Total 1350 ml 775 ml 300 ml # Voids 1 # Bowel Movements 0 0 Objective Remarks GENERAL: Elderly male in no apparent distress. SKIN: Flaky skin to to the face and neck. CARDIOVASCULAR: Regular rate and rhythm. RESPIRATORY: No accessory muscle use. CTAB. GASTROINTESTINAL: Abdomen soft, nontender, nondistended. NEURO: Awake and alert. PSYCH: Gestures but does not speak. Procedures None Urinary Catheter: Yes Assessment to: Continue Soto insert reason: Obstruction/Retention Date of Insertion: Jan 07, 2017 Vascular Central Line Catheter: No A/P Assessment and Plan Dementia with inappropriate behavior, mood disorder: Improved Patient had inappropriate behavior which is resolved now. Patient has been hospitalized for similar events in 2015 Consulted psychiatry for further evaluation, who indicated that this is a frontal lobe dementia. Risperdal was discontinued per POA request. Continue Remeron Psychiatry following; states patient does not have decisional capacity. Palliative care following. Son declines hospice. Protein calorie malnutrition: Improving Jevity 1.5 w/ bolus 1.5 cans (360ml) @ 0800, 1100 and 1400 and 1 can (240ml) @ 1700 and 2000. Free Water Flush 100ml before and after each bolus feeding. Belly Packer following. Ensure Enlive tid and chocolate pudding tid. Patient desired to eat and speech therapy advised puree diet, thin liquids, but patient has not been eating. Belly Packer suggested considering appetite stimulant. This was discussed with attending, but we do not believe this would be beneficial for patient and would add unnecessary risk to the patient. Will continue with tube feeds only. Hematuria: Resolved. -Patient is not on anticoagulation. -Hemoglobin normal. -Creatinine is normal. -UA 4/5 with innumerable RBCs, but urine sample not grossly bloody. Urinary tract infection, recurrent: Urine culture positive for Proteus mirabilis and GBS on 01/20. Patient completed course of antibiotics. Abdominal pelvis CT 03/06 shows decompressed bladder with circumferential bladder wall thickening and intraluminal air possibly indicating cystitis, but the patient had been afebrile with normal WBC count. Urine culture 05/31 with Serratia marcescens, Pseudomonas, and Enterococcus faecalis. Patient was started on antibiotics. Repeat urine culture on 06/04 only reveals contaminants. Urine culture /5 with Enterococcus faecalis and Pseudomonas Aeruginosa similar to previous culture on 05/31. Patient remains afebrile. CBC with normal white blood cell count. Continue to change Soto monthly. 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 Monitor and treat only if symptomatic. Mild obstructive uropathy: Resolved. Appreciate urology recommendations. Suprapubic catheter to be changed monthly; last changed 01/07/17. Abdominal pelvis CT 03/06/16 shows resolution of right sided hydronephrosis. Upper GI bleeding with recurrent rectal bleeding: Resolved. Hemoglobin stable. GI reevaluated patient on 05/04. Presumed hemorrhoids, s/p Anusol HC for total of 2 weeks. Continue PPI. Seborrheic dermatitis: Stable S/p Ketoconazole 2% shampoo, hydrocortisone lotion, and multiple courses of hydrocortisone cream. Continue washing face regularly Chalazion: Nodule R upper eyelid. No evidence of preseptal cellulitis. -Warm compresses were applied but it was greater than 2 weeks without significant improvement. -Ophthalmology was consulted and evaluated patient on 03/26. S/p Tobradex 4 times a day OD x 2 weeks. Patient was intermittently compliant with eyedrops. -No worsening. Follow-up outpatient. Hypotension: chronic Blood pressure labile. Continue Midodrine. Patient on max dose. Increase free water flushes as needed. Pre-renal azotemia: Improved Continue free water flushes Stage I decubitus ulcer, sacral skin tear: Continue wound care, barrier cream Frequent turning of patient. Candidal infection: buttocks affected with satellite lesions to the perineum. Resolved. -S/p Nystatin and clotrimazole Weakness: Continue physical therapy Nursing staff to get patient up out of bed at least 3 times daily DVT prophylaxis: SCDs. Avoid chemical prophylaxis secondary to GI bleed. Discharge Planning 01/23/17: [place] declined patient. CM called [facility] to evaluate patient and speak to son regarding placement. Madeline Ortez Jan 27, 2017 09:41
[2017-01-27 20:00] VITALS: BP 130/90; PULSE 80; RESP 18; TEMP 97.4; O2SAT 95
[2017-01-27] MEDS: MIRTAZAPINE 15 MG TAB PEG SCH (21:00)
[2017-01-28] MEDS: MIDODRINE 5 MG TAB PO SCH ×3 (06:29→17:21)
[2017-01-28 08:00] VITALS: BP 111/78; PULSE 79; RESP 20; TEMP 96; O2SAT 97
[2017-01-28] MEDS: FREE WATER G-TUBE SCH (08:00)
[2017-01-28] MEDS: LANSOPRAZOLE SOLUTAB 30 MG TAB PEG SCH (08:00)
[2017-01-28] MEDS: ALLOPURINOL 100 MG TAB PEG SCH (08:01)
--- NOTE | 2017-01-28 10:33 | HHI.PR ---
Subjective Remarks Patient seen and examined today for follow-up on profound weakness, dementia. Patient lying in bed comfortable. Patient denies any new complaints. Patient not talking today and indicates that he is not feeling like it. No change in clinical status. Nursing staff indicates that the patient has been acting out more recently with his symptoms of frontal dementia with inappropriate groping Objective Vitals Vital Signs Date Time Temp Pulse Resp B/P (MAP) Pulse Ox O2 Delivery O2 Flow Rate FiO2 01/28/17 08:00 96.0 79 20 111/78 (89) 97 01/27/17 20:00 97.4 80 18 130/90 (103) 95 I/O 01/27/17 01/27/17 01/27/17 01/28/17 01/28/17 01/28/17 07:00 15:00 23:00 07:00 15:00 23:00 Intake Total 440 ml 440 ml Output Total 300 ml 350 ml 250 ml 1600 ml Balance 140 ml -350 ml -250 ml -1160 ml Intake Oral 0 ml Tube Feeding 240 ml 240 ml Tube Irrigant 200 ml Other 200 ml Output Urine Total 300 ml 350 ml 250 ml 1600 ml # Bowel Movements 0 0 Objective Remarks GENERAL: Well-developed, well-nourished, in no acute distress. HEENT: Head is normocephalic without any lesions or masses noted. Facial features are symmetric. Eyes: Extraocular muscles are intact. Conjunctivae were clear. NECK: Trachea midline no deviation. CARDIAC: Regular rhythm, regular rate. S1/S2 are heard. No murmurs gallops or rubs. LUNGS: Clear to auscultation bilaterally. No wheeze, rhonchi or rales. No use of accessory muscles on inspiration or expiration. ABDOMEN: Soft, nontender. Nondistended. Bowel sounds heard in all 4 quadrants. No organomegaly or masses. Negative rebound, negative guarding, suprapubic catheter in place, PEG tube in place with no signs of infection, EXTREMITIES: No edema, pulses are equal bilaterally. No cyanosis or clubbing NEUROLOGY: Mood and affect appear appropriate. Cranial nerves II through XII grossly intact. Moving all extremities Procedures None Urinary Catheter: Yes (suprapubic catheter) Assessment to: Continue Date of Insertion: Jan 07, 2017 Vascular Central Line Catheter: No A/P Assessment and Plan Weakness: Continue physical therapy Nursing staff to get patient up out of bed at least 3 times daily Patient refusing care, refusing to get out of bed with nursing staff and physical therapy, patient will never improve will only worsen. Consulted palliative care for recommendations Palliative care requested consult with psychiatry to see if patient has capacity to make decisions. Psychiatry evaluated patient states that he does not have capacity make his own decisions Palliative care discussed with family who is declining transition to comfort care, hospice. Dementia with inappropriate behavior, mood disorder improved Patient has been hospitalized for similar events in 2014 Consulted psychiatry for further evaluation, who indicated that this is a frontal lobe dementia Risperdal discontinued at family's request Continue Remeron Parkinson's disease: Patient has dementia and resting tremor. Chronic, stable. GI bleed with presenting of Upper GI bleed, patient with intermittent rectal bleeding: Follow-up hemoglobin has remained stable GI was following and reevaluated on 05/04/16 Presumed hemorrhoids, status post Anusol HC for 2 weeks Continue PPI. Protein calorie malnutrition: Improving Consulted dietitian who indicated that patient may be converted to bolus feeding Jevity 1.5, 1.5, 360ml(1.5 cans)@ 0800, 1100, 1400 and 240ml(1-can)@ 1700 and 2000 Prealbumin level 25 Ensure Enlive 3 times a day since pudding 3 times a day PEG tube replaced 11/20/16 Mild pink coloration around PEG tube, instructed nursing staff to clean daily and monitor for infection Hypotension with episodes of hypertension: Stable Continue monitor blood pressure Continue Midodrine. Mild obstructive uropathy: Resolved. With recurrent urinary tract infections. Treat only if symptomatic Suprapubic catheter in place, changed monthly, last changed 01/07/[address] 03/06/16 shows resolution of right sided hydronephrosis. Site around the catheter does have some serosanguineous dried fluid. Instructed nursing staff to clean daily and monitor for infection Seborrhea dermatitis, recurrent Status post Hydrocortisone cream for 2 weeks Counseled nursing staff on proper hygiene to avoid recurrence DVT prophylaxis: SCDs. Avoid chemical prophylaxis secondary to GI bleed. Records reviewed, no change in treatment plan. Discharge Planning Discharge planning per case management. Jaguar Walker Jan 28, 2017 10:33
[2017-01-28 20:00] VITALS: BP 107/60; PULSE 69; RESP 16; TEMP 97.8; O2SAT 96
[2017-01-28] MEDS: MIRTAZAPINE 15 MG TAB PEG SCH (20:44)
[2017-01-29] MEDS: MIDODRINE 5 MG TAB PO SCH ×3 (06:25→17:31)
[2017-01-29 08:00] VITALS: BP 101/67; PULSE 74; RESP 18; TEMP 97; O2SAT 96
[2017-01-29] MEDS: LANSOPRAZOLE SOLUTAB 30 MG TAB PEG SCH (09:09)
[2017-01-29] MEDS: ALLOPURINOL 100 MG TAB PEG SCH (09:09)
[2017-01-29] MEDS: FREE WATER G-TUBE SCH (09:09)
--- NOTE | 2017-01-29 12:04 | HHI.PR ---
Subjective Remarks Patient seen and examined today for follow-up on weakness, dementia. Patient lying in bed comfortably. Denies any new complaints. No change clinical status. Awaiting family caseworker discharge planning. Objective Vitals Vital Signs Date Time Temp Pulse Resp B/P (MAP) Pulse Ox O2 Delivery O2 Flow Rate FiO2 01/29/17 08:00 97.0 74 18 101/67 (78) 96 01/28/17 20:00 97.8 69 16 107/60 (76) 96 I/O 01/28/17 01/28/17 01/28/17 01/29/17 01/29/17 01/29/17 07:00 15:00 23:00 07:00 15:00 23:00 Intake Total 440 ml 2120 ml 490 ml Output Total 1600 ml 600 ml 450 ml Balance -1160 ml 1520 ml 40 ml Tube Feeding 240 ml 1320 ml 240 ml Tube Irrigant 200 ml 250 ml Other 800 ml Output Urine Total 1600 ml 600 ml 450 ml # Voids 1 # Bowel Movements 0 0 Objective Remarks GENERAL: Well-developed, well-nourished, in no acute distress. HEENT: Head is normocephalic without any lesions or masses noted. Facial features are symmetric. Eyes: Extraocular muscles are intact. Conjunctivae were clear. NECK: Trachea midline no deviation. CARDIAC: Regular rhythm, regular rate. S1/S2 are heard. No murmurs gallops or rubs. LUNGS: Clear to auscultation bilaterally. No wheeze, rhonchi or rales. No use of accessory muscles on inspiration or expiration. ABDOMEN: Soft, nontender. Nondistended. Bowel sounds heard in all 4 quadrants. No organomegaly or masses. Negative rebound, negative guarding, suprapubic catheter in place, PEG tube in place with no signs of infection, EXTREMITIES: No edema, pulses are equal bilaterally. No cyanosis or clubbing NEUROLOGY: Mood and affect appear appropriate. Cranial nerves II through XII grossly intact. Moving all extremities Procedures None Urinary Catheter: Yes (suprapubic catheter) Assessment to: Continue Date of Insertion: Jan 07, 2017 Vascular Central Line Catheter: No A/P Assessment and Plan Weakness: Continue physical therapy Nursing staff to get patient up out of bed at least 3 times daily Patient refusing care, refusing to get out of bed with nursing staff and physical therapy, patient will never improve will only worsen. Consulted palliative care for recommendations Palliative care requested consult with psychiatry to see if patient has capacity to make decisions. Psychiatry evaluated patient states that he does not have capacity make his own decisions Palliative care discussed with family who is declining transition to comfort care, hospice. Dementia with inappropriate behavior, mood disorder improved Patient has been hospitalized for similar events in 2015 Consulted psychiatry for further evaluation, who indicated that this is a frontal lobe dementia Risperdal discontinued at family's request Continue Remeron Parkinson's disease: Patient has dementia and resting tremor. Chronic, stable. GI bleed with presenting of Upper GI bleed, patient with intermittent rectal bleeding: Follow-up hemoglobin has remained stable GI was following and reevaluated on 05/04/16 Presumed hemorrhoids, status post Anusol HC for 2 weeks Continue PPI. Protein calorie malnutrition: Improving Consulted dietitian who indicated that patient may be converted to bolus feeding Jevity 1.5, 1.5, 360ml(1.5 cans)@ 0800, 1100, 1400 and 240ml(1-can)@ 1700 and 2000 Prealbumin level 25 Ensure Enlive 3 times a day since pudding 3 times a day PEG tube replaced 11/20/16 Mild pink coloration around PEG tube, instructed nursing staff to clean daily and monitor for infection Hypotension with episodes of hypertension: Stable Continue monitor blood pressure Continue Midodrine. Mild obstructive uropathy: Resolved. With recurrent urinary tract infections. Treat only if symptomatic Suprapubic catheter in place, changed monthly, last changed 01/07/[address] 03/06/16 shows resolution of right sided hydronephrosis. Site around the catheter does have some serosanguineous dried fluid. Instructed nursing staff to clean daily and monitor for infection Seborrhea dermatitis, recurrent Status post Hydrocortisone cream for 2 weeks Counseled nursing staff on proper hygiene to avoid recurrence DVT prophylaxis: SCDs. Avoid chemical prophylaxis secondary to GI bleed. Records reviewed, no change in treatment plan. Discharge Planning Discharge planning per case management. Jaguar Walker Jan 29, 2017 12:04
[2017-01-29 20:00] VITALS: BP 106/66; PULSE 76; RESP 16; TEMP 98.8; O2SAT 97
[2017-01-29] MEDS: MIRTAZAPINE 15 MG TAB PEG SCH (22:20)
[2017-01-30] MEDS: MIDODRINE 5 MG TAB PO SCH ×3 (07:07→18:21)
[2017-01-30 08:00] VITALS: BP 100/64; PULSE 79; RESP 18; TEMP 98; O2SAT 97
[2017-01-30] MEDS: FREE WATER G-TUBE SCH (09:00)
--- NOTE | 2017-01-30 09:19 | HHI.PR ---
Subjective Remarks Patient seen and examined today for follow-up on weakness, dementia. Patient denies any new complaints. Get me thumbs up that he is okay. Objective Vitals Vital Signs Date Time Temp Pulse Resp B/P (MAP) Pulse Ox O2 Delivery O2 Flow Rate FiO2 01/30/17 08:00 98.0 79 18 100/64 (76) 97 01/29/17 20:00 98.8 76 16 106/66 (79) 97 I/O 01/29/17 01/29/17 01/29/17 01/30/17 01/30/17 01/30/17 07:00 15:00 23:00 07:00 15:00 23:00 Intake Total 490 ml 2120 ml Output Total 450 ml 425 ml 400 ml Balance 40 ml -425 ml 2120 ml -400 ml Tube Feeding 240 ml 1320 ml Tube Irrigant 250 ml Other 800 ml Output Urine Total 450 ml 425 ml 400 ml # Bowel Movements 0 0 2 Objective Remarks GENERAL: Well-developed, well-nourished, in no acute distress. HEENT: Head is normocephalic without any lesions or masses noted. Facial features are symmetric. Eyes: Extraocular muscles are intact. Conjunctivae were clear. NECK: Trachea midline no deviation. CARDIAC: Regular rhythm, regular rate. S1/S2 are heard. No murmurs gallops or rubs. LUNGS: Clear to auscultation bilaterally. No wheeze, rhonchi or rales. No use of accessory muscles on inspiration or expiration. ABDOMEN: Soft, nontender. Nondistended. Bowel sounds heard in all 4 quadrants. No organomegaly or masses. Negative rebound, negative guarding, suprapubic catheter in place, PEG tube in place with no signs of infection, EXTREMITIES: No edema, pulses are equal bilaterally. No cyanosis or clubbing NEUROLOGY: Mood and affect appear appropriate. Cranial nerves II through XII grossly intact. Moving all extremities Procedures None Urinary Catheter: Yes Assessment to: Continue Soto insert reason: Obstruction/Retention Date of Insertion: Jan 07, 2017 Vascular Central Line Catheter: No A/P Assessment and Plan Weakness: Continue physical therapy Nursing staff to get patient up out of bed at least 3 times daily Patient refusing care, refusing to get out of bed with nursing staff and physical therapy, patient will never improve will only worsen. Consulted palliative care for recommendations Palliative care requested consult with psychiatry to see if patient has capacity to make decisions. Psychiatry evaluated patient states that he does not have capacity make his own decisions Palliative care discussed with family who is declining transition to comfort care, hospice. Dementia with inappropriate behavior, mood disorder improved Patient has been hospitalized for similar events in 2014 Consulted psychiatry for further evaluation, who indicated that this is a frontal lobe dementia Risperdal discontinued at family's request Continue Remeron Parkinson's disease: Patient has dementia and resting tremor. Chronic, stable. GI bleed with presenting of Upper GI bleed, patient with intermittent rectal bleeding: Follow-up hemoglobin has remained stable GI was following and reevaluated on 05/04/16 Presumed hemorrhoids, status post Anusol HC for 2 weeks Continue PPI. Protein calorie malnutrition: Improving Consulted dietitian who indicated that patient may be converted to bolus feeding Jevity 1.5, 1.5, 360ml(1.5 cans)@ 0800, 1100, 1400 and 240ml(1-can)@ 1700 and 2000 Prealbumin level 25 Ensure Enlive 3 times a day since pudding 3 times a day PEG tube replaced 11/20/16 Mild pink coloration around PEG tube, instructed nursing staff to clean daily and monitor for infection Hypotension with episodes of hypertension: Stable Continue monitor blood pressure Continue Midodrine. Mild obstructive uropathy: Resolved. With recurrent urinary tract infections. Treat only if symptomatic Suprapubic catheter in place, changed monthly, last changed 01/07/[address] 03/06/16 shows resolution of right sided hydronephrosis. Site around the catheter does have some serosanguineous dried fluid. Instructed nursing staff to clean daily and monitor for infection Seborrhea dermatitis, recurrent Status post Hydrocortisone cream for 2 weeks Counseled nursing staff on proper hygiene to avoid recurrence DVT prophylaxis: SCDs. Avoid chemical prophylaxis secondary to GI bleed. Records reviewed, no change in treatment plan. Discharge Planning Discharge planning per case management. Jaguar Walker Jan 30, 2017 09:19
[2017-01-30] MEDS: ALLOPURINOL 100 MG TAB PEG SCH (09:42)
[2017-01-30] MEDS: LANSOPRAZOLE SOLUTAB 30 MG TAB PEG SCH (09:42)
[2017-01-30 20:00] VITALS: BP 128/85; PULSE 95; RESP 16; TEMP 98.7; O2SAT 95
[2017-01-30] MEDS: MIRTAZAPINE 15 MG TAB PEG SCH (20:55)
[2017-01-31] MEDS: MIDODRINE 5 MG TAB PO SCH ×3 (06:28→17:54)
[2017-01-31] MEDS: ALLOPURINOL 100 MG TAB PEG SCH (08:15)
[2017-01-31] MEDS: LANSOPRAZOLE SOLUTAB 30 MG TAB PEG SCH (08:15)
[2017-01-31] MEDS: FREE WATER G-TUBE SCH (08:15)
--- NOTE | 2017-01-31 11:49 | HHI.PR ---
Subjective Remarks Patient seen and examined today for follow-up on profound weakness, dementia. Patient denies any new complaints. No change clinical status. Objective Vitals Vital Signs Date Time Temp Pulse Resp B/P (MAP) Pulse Ox O2 Delivery O2 Flow Rate FiO2 01/30/17 20:00 98.7 95 16 128/85 (99) 95 I/O 01/30/17 01/30/17 01/30/17 01/31/17 01/31/17 01/31/17 07:00 15:00 23:00 07:00 15:00 23:00 Intake Total 0 ml Output Total 400 ml 450 ml 900 ml Balance -400 ml -450 ml -900 ml Intake Oral 0 ml Output Urine Total 400 ml 450 ml 900 ml # Bowel Movements 2 1 2 Objective Remarks GENERAL: Well-developed, well-nourished, in no acute distress. HEENT: Head is normocephalic without any lesions or masses noted. Facial features are symmetric. Eyes: Extraocular muscles are intact. Conjunctivae were clear. NECK: Trachea midline no deviation. CARDIAC: Regular rhythm, regular rate. S1/S2 are heard. No murmurs gallops or rubs. LUNGS: Clear to auscultation bilaterally. No wheeze, rhonchi or rales. No use of accessory muscles on inspiration or expiration. ABDOMEN: Soft, nontender. Nondistended. Bowel sounds heard in all 4 quadrants. No organomegaly or masses. Negative rebound, negative guarding, suprapubic catheter in place, PEG tube in place with no signs of infection, EXTREMITIES: No edema, pulses are equal bilaterally. No cyanosis or clubbing NEUROLOGY: Mood and affect appear appropriate. Cranial nerves II through XII grossly intact. Moving all extremities Procedures None Urinary Catheter: Yes (suprapubic catheter) Assessment to: Continue Date of Insertion: Jan 07, 2017 Vascular Central Line Catheter: No A/P Assessment and Plan Weakness: Continue physical therapy Nursing staff to get patient up out of bed at least 3 times daily Patient refusing care, refusing to get out of bed with nursing staff and physical therapy, patient will never improve will only worsen. Consulted palliative care for recommendations Palliative care requested consult with psychiatry to see if patient has capacity to make decisions. Psychiatry evaluated patient states that he does not have capacity make his own decisions Palliative care discussed with family who is declining transition to comfort care, hospice. Dementia with inappropriate behavior, mood disorder improved Patient has been hospitalized for similar events in 2015 Consulted psychiatry for further evaluation, who indicated that this is a frontal lobe dementia Risperdal discontinued at family's request Continue Remeron Parkinson's disease: Patient has dementia and resting tremor. Chronic, stable. GI bleed with presenting of Upper GI bleed, patient with intermittent rectal bleeding: Follow-up hemoglobin has remained stable GI was following and reevaluated on 05/04/16 Presumed hemorrhoids, status post Anusol HC for 2 weeks Continue PPI. Protein calorie malnutrition: Improving Consulted dietitian who indicated that patient may be converted to bolus feeding Jevity 1.5, 1.5, 360ml(1.5 cans)@ 0800, 1100, 1400 and 240ml(1-can)@ 1700 and 2000 Prealbumin level 25 Ensure Enlive 3 times a day since pudding 3 times a day PEG tube replaced 11/20/16 Mild pink coloration around PEG tube, instructed nursing staff to clean daily and monitor for infection Hypotension with episodes of hypertension: Stable Continue monitor blood pressure Continue Midodrine. Mild obstructive uropathy: Resolved. With recurrent urinary tract infections. Treat only if symptomatic Suprapubic catheter in place, changed monthly, last changed 01/07/[address] 03/06/16 shows resolution of right sided hydronephrosis. Site around the catheter does have some serosanguineous dried fluid. Instructed nursing staff to clean daily and monitor for infection Seborrhea dermatitis, recurrent Status post Hydrocortisone cream for 2 weeks Counseled nursing staff on proper hygiene to avoid recurrence DVT prophylaxis: SCDs. Avoid chemical prophylaxis secondary to GI bleed. Awaiting case management for discharge planning. Records reviewed, no change in treatment plan. Discharge Planning Discharge planning per case management. Jaguar Walker Jan 31, 2017 11:49
[2017-01-31] MEDS: MIRTAZAPINE 15 MG TAB PEG SCH (21:11)
[2017-01-31 21:16] VITALS: BP 117/71; PULSE 67; RESP 16; TEMP 98.7; O2SAT 96
[2017-02-01] MEDS: MIDODRINE 5 MG TAB PO SCH ×3 (06:35→17:14)
[2017-02-01 08:00] VITALS: BP 121/74; PULSE 71; RESP 18; TEMP 97.8; O2SAT 96
--- NOTE | 2017-02-01 08:30 | HHI.PR ---
Subjective Remarks Patient seen and examined today for follow-up on weakness, dementia. Patient denying any new complaints. No change in clinical status. Awaiting case management for discharge planning. Objective Vitals Vital Signs Date Time Temp Pulse Resp B/P (MAP) Pulse Ox O2 Delivery O2 Flow Rate FiO2 01/31/17 21:16 98.7 67 16 117/71 (86) 96 I/O 01/31/17 01/31/17 01/31/17 02/01/17 02/01/17 02/01/17 07:00 15:00 23:00 07:00 15:00 23:00 Intake Total 440 ml Output Total 900 ml 475 ml 1350 ml Balance -900 ml -475 ml -910 ml IV Total 0 ml Tube Feeding 240 ml Other 200 ml Output Urine Total 900 ml 475 ml 1350 ml # Bowel Movements 2 4 Objective Remarks GENERAL: Well-developed, well-nourished, in no acute distress. HEENT: Head is normocephalic without any lesions or masses noted. Facial features are symmetric. Eyes: Extraocular muscles are intact. Conjunctivae were clear. NECK: Trachea midline no deviation. CARDIAC: Regular rhythm, regular rate. S1/S2 are heard. No murmurs gallops or rubs. LUNGS: Clear to auscultation bilaterally. No wheeze, rhonchi or rales. No use of accessory muscles on inspiration or expiration. ABDOMEN: Soft, nontender. Nondistended. Bowel sounds heard in all 4 quadrants. No organomegaly or masses. Negative rebound, negative guarding, suprapubic catheter in place, PEG tube in place with no signs of infection, EXTREMITIES: No edema, pulses are equal bilaterally. No cyanosis or clubbing NEUROLOGY: Mood and affect appear appropriate. Cranial nerves II through XII grossly intact. Moving all extremities Procedures None Urinary Catheter: No Date of Insertion: Jan 07, 2017 Vascular Central Line Catheter: No A/P Assessment and Plan Weakness: Continue physical therapy, however patient refuses get out of bed majority of the time Nursing staff to get patient up out of bed at least 3 times daily Palliative care requested consult with psychiatry to see if patient has capacity to make decisions. Psychiatry evaluated patient states that he does not have capacity make his own decisions Palliative care discussed with family who is declining transition to comfort care, hospice. Dementia with inappropriate behavior, mood disorder improved Consulted psychiatry for further evaluation, who indicated that this is a frontal lobe dementia Continue Remeron Parkinson's disease: Patient has dementia and resting tremor. Chronic, stable. GI bleed with presenting of Upper GI bleed, patient with intermittent rectal bleeding: Boring And Filling Machine Operator consulted and Presumed hemorrhoids, continue Anusol HC as needed Presumed hemorrhoids Follow-up hemoglobin has remained stable Continue PPI. Protein calorie malnutrition: Improving PEG tube replaced 11/20/16 Consulted dietitian who indicated that patient may be converted to bolus feeding Jevity 1.5, 1.5, 360ml(1.5 cans)@ 0800, 1100, 1400 and 240ml(1-can)@ 1700 and 2000 Ensure Enlive 3 times a day since pudding 3 times a day Prealbumin level 25 Hypotension with episodes of hypertension: Stable Continue monitor blood pressure Continue Midodrine. obstructive uropathy: Resolved. With recurrent urinary tract infections. Treat only if symptomatic Suprapubic catheter in place, changed monthly, last changed 01/07/17 Seborrhea dermatitis, recurrent Counseled nursing staff on proper hygiene to avoid recurrence Responds well to Hydrocortisone cream. Continue to use when active DVT prophylaxis: Sequential compression devices Avoid chemical prophylaxis secondary to intermittent rectal bleeding Records reviewed, no change in treatment plan., Awaiting case management for discharge planning. Discharge Planning Discharge planning per case management. Jaguar Walker Feb 01, 2017 08:30
[2017-02-01] MEDS: ALLOPURINOL 100 MG TAB PEG SCH (08:52)
[2017-02-01] MEDS: FREE WATER G-TUBE SCH (08:52)
[2017-02-01] MEDS: LANSOPRAZOLE SOLUTAB 30 MG TAB PEG SCH (08:52)
[2017-02-01 12:32] VITALS: BP 113/71; PULSE 87; RESP 18
[2017-02-01 17:11] VITALS: BP 108/70; PULSE 103
[2017-02-01] MEDS: MIRTAZAPINE 15 MG TAB PEG SCH (20:42)
[2017-02-01 20:55] VITALS: BP 123/89; PULSE 70; RESP 14; TEMP 98.6; O2SAT 96
[2017-02-02] MEDS: MIDODRINE 5 MG TAB PO SCH ×3 (06:34→16:37)
[2017-02-02 08:00] VITALS: BP 129/76; PULSE 78; RESP 17; TEMP 97.8; O2SAT 95
--- NOTE | 2017-02-02 08:13 | HHI.PR ---
Subjective Remarks Patient seen and examined today for follow-up on profile weakness, dementia. Patient denies any new complaints. No change in clinical status. Awaiting case management for discharge planning. Objective Vitals Vital Signs Date Time Temp Pulse Resp B/P (MAP) Pulse Ox O2 Delivery O2 Flow Rate FiO2 02/01/17 20:55 98.6 70 14 123/89 (100) 96 02/01/17 17:11 103 108/70 (83) 02/01/17 12:32 87 18 113/71 (85) I/O 02/01/17 02/01/17 02/01/17 02/02/17 02/02/17 02/02/17 07:00 15:00 23:00 07:00 15:00 23:00 Intake Total 440 ml 2120 ml Output Total 1350 ml 800 ml Balance -910 ml 2120 ml -800 ml IV Total 0 ml Tube Feeding 240 ml 1320 ml Tube Irrigant 600 ml Other 200 ml 200 ml Output Urine Total 1350 ml 800 ml # Bowel Movements 4 2 1 Objective Remarks GENERAL: Well-developed, well-nourished, in no acute distress. HEENT: Head is normocephalic without any lesions or masses noted. Facial features are symmetric. Eyes: Extraocular muscles are intact. Conjunctivae were clear. NECK: Trachea midline no deviation. CARDIAC: Regular rhythm, regular rate. S1/S2 are heard. No murmurs gallops or rubs. LUNGS: Clear to auscultation bilaterally. No wheeze, rhonchi or rales. No use of accessory muscles on inspiration or expiration. ABDOMEN: Soft, nontender. Nondistended. Bowel sounds heard in all 4 quadrants. No organomegaly or masses. Negative rebound, negative guarding, suprapubic catheter in place, PEG tube in place with no signs of infection, EXTREMITIES: No edema, pulses are equal bilaterally. No cyanosis or clubbing NEUROLOGY: Mood and affect appear appropriate. Cranial nerves II through XII grossly intact. Moving all extremities Procedures None Urinary Catheter: No Date of Insertion: Jan 07, 2017 Vascular Central Line Catheter: No A/P Assessment and Plan Weakness: Continue physical therapy, however patient refuses get out of bed majority of the time Nursing staff to get patient up out of bed at least 3 times daily Palliative care requested consult with psychiatry to see if patient has capacity to make decisions. Psychiatry evaluated patient states that he does not have capacity make his own decisions Palliative care discussed with family who is declining transition to comfort care, hospice. Dementia with inappropriate behavior, mood disorder improved Consulted psychiatry for further evaluation, who indicated that this is a frontal lobe dementia Continue Remeron Parkinson's disease: Patient has dementia and resting tremor. Chronic, stable. GI bleed with presenting of Upper GI bleed, patient with intermittent rectal bleeding: Label Maker consulted and Presumed hemorrhoids, continue Anusol HC as needed Presumed hemorrhoids Follow-up hemoglobin has remained stable Continue PPI. Protein calorie malnutrition: Improving PEG tube replaced 11/20/16 Consulted dietitian who indicated that patient may be converted to bolus feeding Jevity 1.5, 1.5, 360ml(1.5 cans)@ 0800, 1100, 1400 and 240ml(1-can)@ 1700 and 2000 Ensure Enlive 3 times a day since pudding 3 times a day Prealbumin level 25 Hypotension with episodes of hypertension: Stable Continue monitor blood pressure Continue Midodrine. obstructive uropathy: Resolved. With recurrent urinary tract infections. Treat only if symptomatic Suprapubic catheter in place, changed monthly, last changed 01/07/17 Seborrhea dermatitis, recurrent Counseled nursing staff on proper hygiene to avoid recurrence Responds well to Hydrocortisone cream. Continue to use when active DVT prophylaxis: Sequential compression devices Avoid chemical prophylaxis secondary to intermittent rectal bleeding Awaiting case management for discharge planning. Records reviewed, no change in treatment plan., Discharge Planning Discharge planning per case management. Jaguar Walker Feb 02, 2017 08:13
[2017-02-02] MEDS: LANSOPRAZOLE SOLUTAB 30 MG TAB PEG SCH (08:50)
[2017-02-02] MEDS: ALLOPURINOL 100 MG TAB PEG SCH (08:50)
[2017-02-02] MEDS: FREE WATER G-TUBE SCH (08:51)
[2017-02-02 19:00] VITALS: BP 92/60; PULSE 86; RESP 20; TEMP 97.1; O2SAT 96
[2017-02-02] MEDS: MIRTAZAPINE 15 MG TAB PEG SCH (20:50)
[2017-02-03] MEDS: MIDODRINE 5 MG TAB PO SCH ×3 (06:19→17:16)
--- NOTE | 2017-02-03 07:52 | HHI.PR ---
Subjective Remarks Patient seen and examined today for follow-up on weakness, dementia. Patient lying in bed comfortable. No change in clinical status. Denies any new complaints. Awaiting case management for discharge planning Objective Vitals Vital Signs Date Time Temp Pulse Resp B/P (MAP) Pulse Ox O2 Delivery O2 Flow Rate FiO2 02/02/17 19:00 97.1 86 20 92/60 (71) 96 02/02/17 08:00 97.8 78 17 129/76 (93) 95 I/O 02/02/17 02/02/17 02/02/17 02/03/17 02/03/17 02/03/17 07:00 15:00 23:00 07:00 15:00 23:00 Intake Total 2410 ml Output Total 800 ml 451 ml 500 ml Balance -800 ml 1959 ml -500 ml Tube Feeding 1320 ml Tube Irrigant 1090 ml Output Urine Total 800 ml 451 ml 500 ml # Bowel Movements 1 1 2 Objective Remarks GENERAL: Well-developed, well-nourished, in no acute distress. HEENT: Head is normocephalic without any lesions or masses noted. Facial features are symmetric. Eyes: Extraocular muscles are intact. Conjunctivae were clear. NECK: Trachea midline no deviation. CARDIAC: Regular rhythm, regular rate. S1/S2 are heard. No murmurs gallops or rubs. LUNGS: Clear to auscultation bilaterally. No wheeze, rhonchi or rales. No use of accessory muscles on inspiration or expiration. ABDOMEN: Soft, nontender. Nondistended. Bowel sounds heard in all 4 quadrants. No organomegaly or masses. Negative rebound, negative guarding, suprapubic catheter in place, PEG tube in place with no signs of infection, EXTREMITIES: No edema, pulses are equal bilaterally. No cyanosis or clubbing NEUROLOGY: Mood and affect appear appropriate. Cranial nerves II through XII grossly intact. Moving all extremities Procedures None Urinary Catheter: Yes (suprapubic catheter) Assessment to: Continue Date of Insertion: Jan 07, 2017 Vascular Central Line Catheter: No A/P Assessment and Plan Weakness: Continue physical therapy, however patient refuses get out of bed majority of the time Nursing staff to get patient up out of bed at least 3 times daily Palliative care requested consult with psychiatry to see if patient has capacity to make decisions. Psychiatry evaluated patient states that he does not have capacity make his own decisions Palliative care discussed with family who is declining transition to comfort care, hospice. Dementia with inappropriate behavior, mood disorder improved Consulted psychiatry for further evaluation, who indicated that this is a frontal lobe dementia Continue Remeron Parkinson's disease: Patient has dementia and resting tremor. Chronic, stable. GI bleed with presenting of Upper GI bleed, patient with intermittent rectal bleeding: Senior Software Manager consulted and Presumed hemorrhoids, continue Anusol HC as needed Presumed hemorrhoids Follow-up hemoglobin has remained stable Continue PPI. Protein calorie malnutrition: Improving PEG tube replaced 11/20/16 Consulted dietitian who indicated that patient may be converted to bolus feeding Jevity 1.5, 1.5, 360ml(1.5 cans)@ 0800, 1100, 1400 and 240ml(1-can)@ 1700 and 2000 Ensure Enlive 3 times a day since pudding 3 times a day Prealbumin level 25 Hypotension with episodes of hypertension: Stable Continue monitor blood pressure Continue Midodrine. obstructive uropathy: Resolved. With recurrent urinary tract infections. Treat only if symptomatic Suprapubic catheter in place, changed monthly, last changed 01/07/17 Seborrhea dermatitis, recurrent Counseled nursing staff on proper hygiene to avoid recurrence Responds well to Hydrocortisone cream. Continue to use when active DVT prophylaxis: Sequential compression devices Avoid chemical prophylaxis secondary to intermittent rectal bleeding Records reviewed, no change in treatment plan., Awaiting case management for discharge planning. Discharge Planning Discharge planning per case management. Jaguar Walker Feb 03, 2017 07:52
[2017-02-03 08:00] VITALS: BP 88/58; PULSE 84; RESP 20; TEMP 96.7; O2SAT 95
[2017-02-03] MEDS: FREE WATER G-TUBE SCH (08:21)
[2017-02-03] MEDS: LANSOPRAZOLE SOLUTAB 30 MG TAB PEG SCH (08:21)
[2017-02-03] MEDS: ALLOPURINOL 100 MG TAB PEG SCH (08:21)
[2017-02-03 20:00] VITALS: BP 108/54; PULSE 80; RESP 20; TEMP 98.7; O2SAT 94
[2017-02-03] MEDS: MIRTAZAPINE 15 MG TAB PEG SCH (21:37)
[2017-02-04] MEDS: MIDODRINE 5 MG TAB PO SCH ×3 (06:21→17:00)
[2017-02-04 08:00] VITALS: BP 93/55; PULSE 71; RESP 20; TEMP 97.7; O2SAT 96
[2017-02-04] MEDS: FREE WATER G-TUBE SCH (09:00)
--- NOTE | 2017-02-04 09:11 | HHI.PR ---
Subjective Remarks Follow-up for dementia. No acute complaints. Objective Vitals Vital Signs Date Time Temp Pulse Resp B/P (MAP) Pulse Ox O2 Delivery O2 Flow Rate FiO2 02/04/17 08:00 97.7 71 20 93/55 (68) 96 02/03/17 20:00 98.7 80 20 108/54 (72) 94 I/O 02/03/17 02/03/17 02/03/17 02/04/17 02/04/17 02/04/17 07:00 15:00 23:00 07:00 15:00 23:00 Intake Total 0 ml 0 ml Output Total 500 ml 550 ml 800 ml Balance -500 ml -550 ml -800 ml Intake Oral 0 ml 0 ml Output Urine Total 500 ml 550 ml 800 ml # Bowel Movements 2 2 4 Objective Remarks GENERAL: Elderly male in no apparent distress sleeping. SKIN: Flaky skin to the neck. CARDIOVASCULAR: Regular rate and rhythm. RESPIRATORY: No accessory muscle use. CTAB. GASTROINTESTINAL: Abdomen soft, nontender, nondistended. PSYCH: Nods to answer question but does not speak. Procedures None Urinary Catheter: Yes Assessment to: Continue Soto insert reason: Obstruction/Retention Date of Insertion: Feb 04, 2017 Vascular Central Line Catheter: No A/P Assessment and Plan Hypotension: chronic Blood pressure labile. Continue Midodrine. Patient on max dose. Increase free water flushes as needed. 02/04: Worse hypotension recorded since 02/02 despite receiving all Midodrine doses. Patient had 6 BMs recorded over the last 24 hours, but per RN patient has only had one pasty BM today which is patient's norm. I have asked nurse to recheck BP and it is improved at 110/60 (77). Continue to monitor. Dementia with inappropriate behavior, mood disorder: Improved Patient had inappropriate behavior which is resolved now. Patient has been hospitalized for similar events in 2015 Consulted psychiatry for further evaluation, who indicated that this is a frontal lobe dementia. Risperdal was discontinued per POA request. Continue Remeron Psychiatry following; states patient does not have decisional capacity. Palliative care following. Son declines hospice. Protein calorie malnutrition: Improving Jevity 1.5 w/ bolus 1.5 cans (360ml) @ 0800, 1100 and 1400 and 1 can (240ml) @ 1700 and 2000. Free Water Flush 100ml before and after each bolus feeding. Software Clerk following. Ensure Enlive tid and chocolate pudding tid. Patient desired to eat and speech therapy advised puree diet, thin liquids, but patient has not been eating. Software Clerk suggested considering appetite stimulant. This was discussed with attending, but we do not believe this would be beneficial for patient and would add unnecessary risk to the patient. Will continue with tube feeds only. Hematuria: Resolved. -Patient is not on anticoagulation. -Hemoglobin normal. -Creatinine is normal. -UA 4/5 with innumerable RBCs, but urine sample not grossly bloody. Urinary tract infection, recurrent: Urine culture positive for Proteus mirabilis and GBS on 01/20. Patient completed course of antibiotics. Abdominal pelvis CT 03/06 shows decompressed bladder with circumferential bladder wall thickening and intraluminal air possibly indicating cystitis, but the patient had been afebrile with normal WBC count. Urine culture 05/31 with Serratia marcescens, Pseudomonas, and Enterococcus faecalis. Patient was started on antibiotics. Repeat urine culture on 06/04 only reveals contaminants. Urine culture /5 with Enterococcus faecalis and Pseudomonas Aeruginosa similar to previous culture on 05/31. Patient remains afebrile. CBC with normal white blood cell count. Continue to change Soto monthly. 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 Monitor and treat only if symptomatic. Mild obstructive uropathy: Resolved. Appreciate urology recommendations. Suprapubic catheter to be changed monthly; order to change today 02/[address] 03/06/16 shows resolution of right sided hydronephrosis. Upper GI bleeding with recurrent rectal bleeding: Resolved. Hemoglobin stable. GI reevaluated patient on 05/04. Presumed hemorrhoids, s/p Anusol HC for total of 2 weeks. Continue PPI. Seborrheic dermatitis: Stable S/p Ketoconazole 2% shampoo, hydrocortisone lotion, and multiple courses of hydrocortisone cream. Continue washing face regularly Chalazion: Nodule R upper eyelid. No evidence of preseptal cellulitis. -Warm compresses were applied but it was greater than 2 weeks without significant improvement. -Ophthalmology was consulted and evaluated patient on 03/26. S/p Tobradex 4 times a day OD x 2 weeks. Patient was intermittently compliant with eyedrops. -No worsening. Follow-up outpatient. Pre-renal azotemia: Improved Continue free water flushes Stage I decubitus ulcer, sacral skin tear: Continue wound care, barrier cream Frequent turning of patient. Candidal infection: buttocks affected with satellite lesions to the perineum. Resolved. -S/p Nystatin and clotrimazole Weakness: Continue physical therapy Nursing staff to get patient up out of bed at least 3 times daily DVT prophylaxis: SCDs. Avoid chemical prophylaxis secondary to GI bleed. Discharge Planning 02/04/17: Son [facility]. Per CM all [facility] facilities are full. [facility]od[facility] Rosario and [facility] have been requested to evaluate patient. Madeline Ortez Feb 04, 2017 09:11
[2017-02-04] MEDS: LANSOPRAZOLE SOLUTAB 30 MG TAB PEG SCH (09:32)
[2017-02-04] MEDS: ALLOPURINOL 100 MG TAB PEG SCH (09:32)
[2017-02-04 12:00] VITALS: BP 110/60
[2017-02-04 20:00] VITALS: BP 96/65; PULSE 73; RESP 20; TEMP 98.5; O2SAT 94
[2017-02-04] MEDS: MIRTAZAPINE 15 MG TAB PEG SCH (21:34)
[2017-02-05] MEDS: MIDODRINE 5 MG TAB PEG SCH ×3 (06:13→17:11)
[2017-02-05 08:00] VITALS: BP_SYST 130; BP_SYST 99; BP_DIAS 71; BP_DIAS 92; PULSE 76; RESP 17; TEMP 98.2; O2SAT 93
[2017-02-05] MEDS: ALLOPURINOL 100 MG TAB PEG SCH (08:15)
[2017-02-05] MEDS: FREE WATER G-TUBE SCH (08:15)
[2017-02-05] MEDS: LANSOPRAZOLE SOLUTAB 30 MG TAB PEG SCH (08:15)
--- NOTE | 2017-02-05 09:00 | HHI.PR ---
Subjective Remarks Follow-up for dementia. No acute complaints. Objective Vitals Vital Signs Date Time Temp Pulse Resp B/P (MAP) Pulse Ox O2 Delivery O2 Flow Rate FiO2 02/04/17 20:00 98.5 73 20 96/65 (75) 94 02/04/17 12:00 110/60 (77) I/O 02/04/17 02/04/17 02/04/17 02/05/17 02/05/17 02/05/17 07:00 15:00 23:00 07:00 15:00 23:00 Intake Total 0 ml 970 ml 800 ml 60 ml Output Total 800 ml 900 ml 100 ml 625 ml Balance -800 ml 70 ml 700 ml -565 ml Intake Oral 0 ml 60 ml Tube Feeding 720 ml 600 ml Tube Irrigant 50 ml 200 ml Other 200 ml Output Urine Total 800 ml 900 ml 100 ml 625 ml # Voids 1 # Bowel Movements 4 1 2 3 Objective Remarks GENERAL: Elderly male in no apparent distress sleeping when I enter the room. SKIN: Flaky skin to the face and neck. CARDIOVASCULAR: Regular rate and rhythm. RESPIRATORY: No accessory muscle use. Decreased breath sounds over RLL, chronic. Clear to auscultation. GASTROINTESTINAL: Abdomen soft, nontender, nondistended. PSYCH: Nods to answer question but does not speak. Procedures None Urinary Catheter: Yes Assessment to: Continue Soto insert reason: Obstruction/Retention Date of Insertion: Feb 04, 2017 Vascular Central Line Catheter: No A/P Assessment and Plan Dementia with inappropriate behavior, mood disorder: Improved Patient had inappropriate behavior which is resolved now. Patient has been hospitalized for similar events in 2015 Consulted psychiatry for further evaluation, who indicated that this is a frontal lobe dementia. Risperdal was discontinued per POA request. Continue Remeron Psychiatry following; states patient does not have decisional capacity. Palliative care following. Son declines hospice. Protein calorie malnutrition: Improving Jevity 1.5 w/ bolus 1.5 cans (360ml) @ 0800, 1100 and 1400 and 1 can (240ml) @ 1700 and 2000. Free Water Flush 100ml before and after each bolus feeding. Gauge And Weigh Machine Adjuster following. Ensure Enlive tid and chocolate pudding tid. Patient desired to eat and speech therapy advised puree diet, thin liquids, but patient has not been eating. Gauge And Weigh Machine Adjuster suggested considering appetite stimulant. This was discussed with attending, but we do not believe this would be beneficial for patient and would add unnecessary risk to the patient. Will continue with tube feeds only. Hematuria: Resolved. -Patient is not on anticoagulation. -Hemoglobin normal. -Creatinine is normal. -UA 4/5 with innumerable RBCs, but urine sample not grossly bloody. Urinary tract infection, recurrent: Urine culture positive for Proteus mirabilis and GBS on 01/20. Patient completed course of antibiotics. Abdominal pelvis CT 03/06 shows decompressed bladder with circumferential bladder wall thickening and intraluminal air possibly indicating cystitis, but the patient had been afebrile with normal WBC count. Urine culture 05/31 with Serratia marcescens, Pseudomonas, and Enterococcus faecalis. Patient was started on antibiotics. Repeat urine culture on 06/04 only reveals contaminants. Urine culture 08/07 with Enterococcus faecalis and Pseudomonas Aeruginosa similar to previous culture on 05/31. Patient remains afebrile. CBC with normal white blood cell count. Continue to change Soto monthly. 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 Monitor and treat only if symptomatic. Mild obstructive uropathy: Resolved. Appreciate urology recommendations. Suprapubic catheter to be changed monthly; last changed 02/04/[address] 03/06/16 shows resolution of right sided hydronephrosis. Upper GI bleeding with recurrent rectal bleeding: Resolved. Hemoglobin stable. GI reevaluated patient on 05/04. Presumed hemorrhoids, s/p Anusol HC for total of 2 weeks. Continue PPI. Hypotension: chronic Blood pressure labile. Continue Midodrine. Patient on max dose. Increase free water flushes as needed. Seborrheic dermatitis: Stable S/p Ketoconazole 2% shampoo, hydrocortisone lotion, and multiple courses of hydrocortisone cream. Continue washing face regularly Chalazion: Nodule R upper eyelid. No evidence of preseptal cellulitis. -Warm compresses were applied but it was greater than 2 weeks without significant improvement. -Ophthalmology was consulted and evaluated patient on 03/26. S/p Tobradex 4 times a day OD x 2 weeks. Patient was intermittently compliant with eyedrops. -No worsening. Follow-up outpatient. Pre-renal azotemia: Improved Continue free water flushes Stage I decubitus ulcer, sacral skin tear: Continue wound care, barrier cream Frequent turning of patient. Candidal infection: buttocks affected with satellite lesions to the perineum. Resolved. -S/p Nystatin and clotrimazole Weakness: Continue physical therapy Nursing staff to get patient up out of bed at least 3 times daily DVT prophylaxis: SCDs. Avoid chemical prophylaxis secondary to GI bleed. Discharge Planning 02/04/17: [facility]. Per CM all [employer] facilities are full. [facility] have been requested to evaluate patient. Madeline Ortez Feb 05, 2017 09:00
[2017-02-05 12:00] VITALS: BP 110/68; PULSE 78; RESP 18; TEMP 98; O2SAT 94
[2017-02-05] MEDS: MIRTAZAPINE 15 MG TAB PEG SCH (19:59)
[2017-02-05 20:18] VITALS: BP 115/70; PULSE 90; RESP 18; TEMP 98.4; O2SAT 95
[2017-02-06] MEDS: MIDODRINE 5 MG TAB PEG SCH ×3 (06:06→17:45)
[2017-02-06 08:00] VITALS: BP 118/69; PULSE 75; RESP 18; TEMP 96.8; O2SAT 97
[2017-02-06] MEDS: FREE WATER G-TUBE SCH (09:00)
--- NOTE | 2017-02-06 09:02 | HHI.PR ---
Subjective Remarks Follow up for dementia. No acute complaints. Objective Vitals Vital Signs Date Time Temp Pulse Resp B/P (MAP) Pulse Ox O2 Delivery O2 Flow Rate FiO2 02/05/17 20:18 98.4 90 18 115/70 (85) 95 02/05/17 12:00 98.0 78 18 110/68 (82) 94 I/O 02/05/17 02/05/17 02/05/17 02/06/17 02/06/17 02/06/17 07:00 15:00 23:00 07:00 15:00 23:00 Intake Total 2000 ml 340 ml 540 ml Output Total 625 ml 1300 ml 300 ml Balance 1375 ml -960 ml 240 ml Intake Oral 60 ml Tube Feeding 1440 ml 240 ml 240 ml Tube Irrigant 300 ml 100 ml 300 ml Other 200 ml Output Urine Total 625 ml 1300 ml 300 ml # Voids 1 # Bowel Movements 3 4 Objective Remarks GENERAL: Elderly male in no apparent distress. SKIN: Flaky skin to the face and neck. CARDIOVASCULAR: Regular rate and rhythm. RESPIRATORY: No accessory muscle use. Decreased breath sounds over RLL, chronic. Clear to auscultation bilaterally. GASTROINTESTINAL: Abdomen soft, nontender, nondistended. PSYCH: Nods to answer question but does not speak. Procedures None Urinary Catheter: Yes Assessment to: Continue Soto insert reason: Obstruction/Retention Date of Insertion: Feb 04, 2017 Vascular Central Line Catheter: No A/P Assessment and Plan Dementia with inappropriate behavior, mood disorder: Improved Patient had inappropriate behavior which is resolved now. Patient has been hospitalized for similar events in 2015 Consulted psychiatry for further evaluation, who indicated that this is a frontal lobe dementia. Risperdal was discontinued per POA request. Continue Remeron Psychiatry following; states patient does not have decisional capacity. Palliative care following. Son declines hospice. Protein calorie malnutrition: Improving Jevity 1.5 w/ bolus 1.5 cans (360ml) @ 0800, 1100 and 1400 and 1 can (240ml) @ 1700 and 2000. Free Water Flush 100ml before and after each bolus feeding. Casket Assembler following. Ensure Enlive tid and chocolate pudding tid. Patient desired to eat and speech therapy advised puree diet, thin liquids, but patient has not been eating. Casket Assembler suggested considering appetite stimulant. This was discussed with attending, but we do not believe this would be beneficial for patient and would add unnecessary risk to the patient. Will continue with tube feeds only. Hematuria: Resolved. -Patient is not on anticoagulation. -Hemoglobin normal. -Creatinine is normal. -UA 4/5 with innumerable RBCs, but urine sample not grossly bloody. Urinary tract infection, recurrent: Urine culture positive for Proteus mirabilis and GBS on 01/20. Patient completed course of antibiotics. Abdominal pelvis CT 03/06 shows decompressed bladder with circumferential bladder wall thickening and intraluminal air possibly indicating cystitis, but the patient had been afebrile with normal WBC count. Urine culture 05/31 with Serratia marcescens, Pseudomonas, and Enterococcus faecalis. Patient was started on antibiotics. Repeat urine culture on 06/04 only reveals contaminants. Urine culture 08/07 with Enterococcus faecalis and Pseudomonas Aeruginosa similar to previous culture on 05/31. Patient remains afebrile. CBC with normal white blood cell count. Continue to change Soto monthly. 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 Monitor and treat only if symptomatic. Mild obstructive uropathy: Resolved. Appreciate urology recommendations. Suprapubic catheter to be changed monthly; last changed 02/04/[address] 03/06/16 shows resolution of right sided hydronephrosis. Upper GI bleeding with recurrent rectal bleeding: Resolved. Hemoglobin stable. GI reevaluated patient on 05/04. Presumed hemorrhoids, s/p Anusol HC for total of 2 weeks. Continue PPI. Hypotension: chronic Blood pressure labile. Continue Midodrine. Patient on max dose. Increase free water flushes as needed. Seborrheic dermatitis: Stable S/p Ketoconazole 2% shampoo, hydrocortisone lotion, and multiple courses of hydrocortisone cream. Continue washing face regularly Chalazion: Nodule R upper eyelid. No evidence of preseptal cellulitis. -Warm compresses were applied but it was greater than 2 weeks without significant improvement. -Ophthalmology was consulted and evaluated patient on 03/26. S/p Tobradex 4 times a day OD x 2 weeks. Patient was intermittently compliant with eyedrops. -No worsening. Follow-up outpatient. Pre-renal azotemia: Improved Continue free water flushes Stage I decubitus ulcer buttocks Continue barrier cream, Mepilex dressings Frequent turning of patient. Candidal infection: buttocks affected with satellite lesions to the perineum. Resolved. -S/p Nystatin and clotrimazole Weakness: Continue physical therapy Nursing staff to get patient up out of bed at least 3 times daily DVT prophylaxis: SCDs. Avoid chemical prophylaxis secondary to GI bleed. Discharge Planning 02/04/17: Son [facility]. Per all [employer] facilities are full. [facility] have been requested to evaluate patient. 02/06/17: requested [facility] to evaluate for placement. Madeline Ortez Feb 06, 2017 09:01
[2017-02-06] MEDS: ALLOPURINOL 100 MG TAB PEG SCH (09:15)
[2017-02-06] MEDS: LANSOPRAZOLE SOLUTAB 30 MG TAB PEG SCH (09:15)
[2017-02-06 20:00] VITALS: BP 115/69; PULSE 72; RESP 20; TEMP 98.5; O2SAT 97
[2017-02-06] MEDS: MIRTAZAPINE 15 MG TAB PEG SCH (20:03)
[2017-02-07] MEDS: MIDODRINE 5 MG TAB PEG SCH ×3 (06:08→16:53)
[2017-02-07] MEDS: ALLOPURINOL 100 MG TAB PEG SCH (07:37)
[2017-02-07] MEDS: FREE WATER G-TUBE SCH (07:37)
[2017-02-07] MEDS: LANSOPRAZOLE SOLUTAB 30 MG TAB PEG SCH (07:37)
[2017-02-07 08:00] VITALS: BP 105/69; PULSE 68; RESP 20; TEMP 96.7; O2SAT 95
--- NOTE | 2017-02-07 11:21 | HHI.PR ---
Subjective Remarks Follow up for dementia. No acute complaints. Objective Vitals Vital Signs Date Time Temp Pulse Resp B/P (MAP) Pulse Ox O2 Delivery O2 Flow Rate FiO2 02/07/17 08:00 96.7 68 20 105/69 (81) 95 02/06/17 20:00 98.5 72 20 115/69 (84) 97 I/O 02/06/17 02/06/17 02/06/17 02/07/17 02/07/17 02/07/17 07:00 15:00 23:00 07:00 15:00 23:00 Intake Total 540 ml 2760 ml 300 ml Output Total 300 ml 1050 ml 500 ml 1325 ml Balance 240 ml -1050 ml 2260 ml -1025 ml Intake Oral 0 ml Tube Feeding 240 ml 1560 ml Tube Irrigant 300 ml 400 ml 300 ml Other 800 ml Output Urine Total 300 ml 1050 ml 500 ml 1325 ml # Voids 1 # Bowel Movements 2 6 Objective Remarks GENERAL: Elderly male in no apparent distress. SKIN: Flaky skin to the face and neck. CARDIOVASCULAR: Regular rate and rhythm. RESPIRATORY: No accessory muscle use. Clear to auscultation bilaterally. GASTROINTESTINAL: Abdomen soft, nontender, nondistended. PSYCH: Nods to answer question but does not speak. Procedures None Urinary Catheter: No Date of Insertion: Feb 04, 2017 Vascular Central Line Catheter: No A/P Assessment and Plan Dementia with inappropriate behavior, mood disorder: Improved Patient had inappropriate behavior which is resolved now. Patient has been hospitalized for similar events in 2015 Consulted psychiatry for further evaluation, who indicated that this is a frontal lobe dementia. Risperdal was discontinued per POA request. Continue Remeron Psychiatry following; states patient does not have decisional capacity. Palliative care following. Son declines hospice. Protein calorie malnutrition: Improving Jevity 1.5 w/ bolus 1.5 cans (360ml) @ 0800, 1100 and 1400 and 1 can (240ml) @ 1700 and 2000. Free Water Flush 100ml before and after each bolus feeding. Floor Coverer Apprentice following. Ensure Enlive tid and chocolate pudding tid. Patient desired to eat and speech therapy advised puree diet, thin liquids, but patient has not been eating. Floor Coverer Apprentice suggested considering appetite stimulant. This was discussed with attending, but we do not believe this would be beneficial for patient and would add unnecessary risk to the patient. Will continue with tube feeds only. Hematuria: Resolved. -Patient is not on anticoagulation. -Hemoglobin normal. -Creatinine is normal. -UA 4/5 with innumerable RBCs, but urine sample not grossly bloody. Urinary tract infection, recurrent: Urine culture positive for Proteus mirabilis and GBS on 01/20. Patient completed course of antibiotics. Abdominal pelvis CT 03/06 shows decompressed bladder with circumferential bladder wall thickening and intraluminal air possibly indicating cystitis, but the patient had been afebrile with normal WBC count. Urine culture 05/31 with Serratia marcescens, Pseudomonas, and Enterococcus faecalis. Patient was started on antibiotics. Repeat urine culture on 06/04 only reveals contaminants. Urine culture /5 with Enterococcus faecalis and Pseudomonas Aeruginosa similar to previous culture on 05/31. Patient remains afebrile. CBC with normal white blood cell count. Continue to change Soto monthly. 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 Monitor and treat only if symptomatic. Mild obstructive uropathy: Resolved. Appreciate urology recommendations. Suprapubic catheter to be changed monthly; last changed 02/04/[address] 03/06/16 shows resolution of right sided hydronephrosis. Upper GI bleeding with recurrent rectal bleeding: Resolved. Hemoglobin stable. GI reevaluated patient on 05/04. Presumed hemorrhoids, s/p Anusol HC for total of 2 weeks. Continue PPI. Hypotension: chronic Blood pressure labile. Continue Midodrine. Patient on max dose. Increase free water flushes as needed. Seborrheic dermatitis: Stable S/p Ketoconazole 2% shampoo, hydrocortisone lotion, and multiple courses of hydrocortisone cream. Continue washing face regularly Chalazion: Nodule R upper eyelid. No evidence of preseptal cellulitis. -Warm compresses were applied but it was greater than 2 weeks without significant improvement. -Ophthalmology was consulted and evaluated patient on 03/26. S/p Tobradex 4 times a day OD x 2 weeks. Patient was intermittently compliant with eyedrops. -No worsening. Follow-up outpatient. Pre-renal azotemia: Improved Continue free water flushes Stage I decubitus ulcer buttocks Continue barrier cream, Mepilex dressings Frequent turning of patient. Candidal infection: buttocks affected with satellite lesions to the perineum. Resolved. -S/p Nystatin and clotrimazole Weakness: Continue physical therapy Nursing staff to get patient up out of bed at least 3 times daily DVT prophylaxis: SCDs. Avoid chemical prophylaxis secondary to GI bleed. Discharge Planning 02/04/17: [facility]. Per CM all [employer] facilities are full. [facility] have been requested to evaluate patient. 02/06/17: requested [facility] to evaluate for placement. Madeline Ortez Feb 07, 2017 11:20
[2017-02-07 20:29] VITALS: BP 110/69; PULSE 63; RESP 16; TEMP 96.9; O2SAT 97
[2017-02-07] MEDS: MIRTAZAPINE 15 MG TAB PEG SCH (21:25)
[2017-02-08 08:00] VITALS: BP 119/79; PULSE 77; RESP 18; TEMP 97.8; O2SAT 95
[2017-02-08] MEDS: ALLOPURINOL 100 MG TAB PEG SCH (08:59)
[2017-02-08] MEDS: FREE WATER G-TUBE SCH (08:59)
[2017-02-08] MEDS: MIDODRINE 5 MG TAB PEG SCH ×3 (08:59→17:03)
[2017-02-08] MEDS: LANSOPRAZOLE SOLUTAB 30 MG TAB PEG SCH (08:59)
--- NOTE | 2017-02-08 10:52 | HHI.PR ---
Subjective Remarks Follow up for dementia. No acute complaints. Objective Vitals Vital Signs Date Time Temp Pulse Resp B/P (MAP) Pulse Ox O2 Delivery O2 Flow Rate FiO2 02/08/17 08:00 97.8 77 18 119/79 (92) 95 02/07/17 20:29 96.9 63 16 110/69 (83) 97 I/O 02/07/17 02/07/17 02/07/17 02/08/17 02/08/17 02/08/17 07:00 15:00 23:00 07:00 15:00 23:00 Intake Total 300 ml 2120 ml Output Total 1325 ml 850 ml 1000 ml Balance -1025 ml -850 ml 2120 ml -1000 ml Intake Oral 0 ml Tube Feeding 1320 ml Tube Irrigant 300 ml 0 ml Other 800 ml Output Urine Total 1325 ml 850 ml 1000 ml # Voids 1 # Bowel Movements 6 2 Objective Remarks GENERAL: Elderly male in no apparent distress. CARDIOVASCULAR: Regular rate and rhythm. RESPIRATORY: No accessory muscle use. Clear to auscultation bilaterally. GASTROINTESTINAL: Abdomen soft, nontender, nondistended. PSYCH: Nods to answer questions but does not speak. Procedures None Urinary Catheter: Yes Assessment to: Continue Soto insert reason: Obstruction/Retention Date of Insertion: Feb 04, 2017 Vascular Central Line Catheter: No A/P Assessment and Plan Dementia with inappropriate behavior, mood disorder: Improved Patient had inappropriate behavior which is resolved now. Patient has been hospitalized for similar events in 2015 Consulted psychiatry for further evaluation, who indicated that this is a frontal lobe dementia. Risperdal was discontinued per POA request. Continue Remeron Psychiatry following; states patient does not have decisional capacity. Palliative care following. Son declines hospice. Protein calorie malnutrition: Improving Jevity 1.5 w/ bolus 1.5 cans (360ml) @ 0800, 1100 and 1400 and 1 can (240ml) @ 1700 and 2000. Free Water Flush 100ml before and after each bolus feeding. Slubber Operator following. Ensure Enlive tid and chocolate pudding tid. Patient desired to eat and speech therapy advised puree diet, thin liquids, but patient has not been eating. Slubber Operator suggested considering appetite stimulant. This was discussed with attending, but we do not believe this would be beneficial for patient and would add unnecessary risk to the patient. Will continue with tube feeds only. Hematuria: Resolved. -Patient is not on anticoagulation. -Hemoglobin normal. -Creatinine is normal. -UA 4/5 with innumerable RBCs, but urine sample not grossly bloody. Urinary tract infection, recurrent: Urine culture positive for Proteus mirabilis and GBS on 01/20. Patient completed course of antibiotics. Abdominal pelvis CT 03/06 shows decompressed bladder with circumferential bladder wall thickening and intraluminal air possibly indicating cystitis, but the patient had been afebrile with normal WBC count. Urine culture 05/31 with Serratia marcescens, Pseudomonas, and Enterococcus faecalis. Patient was started on antibiotics. Repeat urine culture on 06/04 only reveals contaminants. Urine culture /5 with Enterococcus faecalis and Pseudomonas Aeruginosa similar to previous culture on 05/31. Patient remains afebrile. CBC with normal white blood cell count. Continue to change Soto monthly. 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 Monitor and treat only if symptomatic. Mild obstructive uropathy: Resolved. Appreciate urology recommendations. Suprapubic catheter to be changed monthly; last changed 02/04/[address] 03/06/16 shows resolution of right sided hydronephrosis. Upper GI bleeding with recurrent rectal bleeding: Resolved. Hemoglobin stable. GI reevaluated patient on 05/04. Presumed hemorrhoids, s/p Anusol HC for total of 2 weeks. Continue PPI. Hypotension: chronic Blood pressure labile. Continue Midodrine. Patient on max dose. Increase free water flushes as needed. Seborrheic dermatitis: Stable S/p Ketoconazole 2% shampoo, hydrocortisone lotion, and multiple courses of hydrocortisone cream. Continue washing face regularly Chalazion: Nodule R upper eyelid. No evidence of preseptal cellulitis. -Warm compresses were applied but it was greater than 2 weeks without significant improvement. -Ophthalmology was consulted and evaluated patient on 03/26. S/p Tobradex 4 times a day OD x 2 weeks. Patient was intermittently compliant with eyedrops. -No worsening. Follow-up outpatient. Pre-renal azotemia: Improved Continue free water flushes Stage I decubitus ulcer buttocks Continue barrier cream, Mepilex dressings Frequent turning of patient. Candidal infection: buttocks affected with satellite lesions to the perineum. Resolved. -S/p Nystatin and clotrimazole Weakness: Continue physical therapy Nursing staff to get patient up out of bed at least 3 times daily DVT prophylaxis: SCDs. Avoid chemical prophylaxis secondary to GI bleed. Discharge Planning 02/04/17: [facility] [place] [facility]. Per CM all [employer] facilities are full. [facility] [place] [facility] have been requested to evaluate patient. 02/06/17: requested [facility] to evaluate for placement. Madeline Ortez Feb 08, 2017 10:52
[2017-02-08 20:35] VITALS: BP 116/77; PULSE 69; RESP 12; TEMP 97.6; O2SAT 99
[2017-02-08] MEDS: MIRTAZAPINE 15 MG TAB PEG SCH (21:31)
[2017-02-09] MEDS: MIDODRINE 5 MG TAB PEG SCH ×3 (06:06→17:48)
[2017-02-09 08:00] VITALS: BP 126/90; PULSE 74; RESP 20; TEMP 97.6; O2SAT 95
[2017-02-09] MEDS: FREE WATER G-TUBE SCH (08:51)
[2017-02-09] MEDS: ALLOPURINOL 100 MG TAB PEG SCH (08:51)
[2017-02-09] MEDS: LANSOPRAZOLE SOLUTAB 30 MG TAB PEG SCH (08:51)
--- NOTE | 2017-02-09 14:10 | HHI.PR ---
Subjective Remarks Patient evaluated this morning. Follow up for dementia. No acute complaints. Objective Vitals Vital Signs Date Time Temp Pulse Resp B/P (MAP) Pulse Ox O2 Delivery O2 Flow Rate FiO2 02/09/17 08:00 97.6 74 20 126/90 (102) 95 02/08/17 20:35 97.6 69 12 116/77 (90) 99 I/O 02/08/17 02/08/17 02/08/17 02/09/17 02/09/17 02/09/17 07:00 15:00 23:00 07:00 15:00 23:00 Intake Total 460 ml Output Total 1000 ml 820 ml 300 ml Balance -1000 ml -360 ml -300 ml Tube Feeding 360 ml Other 100 ml Output Urine Total 1000 ml 820 ml 300 ml # Bowel Movements 2 1 1 Objective Remarks GENERAL: Elderly male in no apparent distress. CARDIOVASCULAR: Regular rate and rhythm. RESPIRATORY: No accessory muscle use. Clear to auscultation bilaterally. GASTROINTESTINAL: Abdomen soft, nontender, nondistended. PSYCH: Nods to answer questions but does not speak. Procedures None Urinary Catheter: Yes Assessment to: Continue Soto insert reason: Obstruction/Retention Date of Insertion: Feb 04, 2017 Vascular Central Line Catheter: No A/P Assessment and Plan Dementia with inappropriate behavior, mood disorder: Improved Patient had inappropriate behavior which is resolved now. Patient has been hospitalized for similar events in 2015 Consulted psychiatry for further evaluation, who indicated that this is a frontal lobe dementia. Risperdal was discontinued per POA request. Continue Remeron Psychiatry following; states patient does not have decisional capacity. Palliative care following. Son declines hospice. Protein calorie malnutrition: Improving Jevity 1.5 w/ bolus 1.5 cans (360ml) @ 0800, 1100 and 1400 and 1 can (240ml) @ 1700 and 2000. Free Water Flush 100ml before and after each bolus feeding. Materials Technician following. Ensure Enlive tid and chocolate pudding tid. Patient desired to eat and speech therapy advised puree diet, thin liquids, but patient has not been eating. Materials Technician suggested considering appetite stimulant. This was discussed with attending, but we do not believe this would be beneficial for patient and would add unnecessary risk to the patient. Will continue with tube feeds only. Hematuria: Resolved. -Patient is not on anticoagulation. -Hemoglobin normal. -Creatinine is normal. -UA 4/5 with innumerable RBCs, but urine sample not grossly bloody. Urinary tract infection, recurrent: Urine culture positive for Proteus mirabilis and GBS on 01/20. Patient completed course of antibiotics. Abdominal pelvis CT 03/06 shows decompressed bladder with circumferential bladder wall thickening and intraluminal air possibly indicating cystitis, but the patient had been afebrile with normal WBC count. Urine culture 05/31 with Serratia marcescens, Pseudomonas, and Enterococcus faecalis. Patient was started on antibiotics. Repeat urine culture on 06/04 only reveals contaminants. Urine culture 4/5 with Enterococcus faecalis and Pseudomonas Aeruginosa similar to previous culture on 05/31. Patient remains afebrile. CBC with normal white blood cell count. Continue to change Osto monthly. 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 Monitor and treat only if symptomatic. Mild obstructive uropathy: Resolved. Appreciate urology recommendations. Suprapubic catheter to be changed monthly; last changed 02/04/[address] 03/06/16 shows resolution of right sided hydronephrosis. Upper GI bleeding with recurrent rectal bleeding: Resolved. Hemoglobin stable. GI reevaluated patient on 05/04. Presumed hemorrhoids, s/p Anusol HC for total of 2 weeks. Continue PPI. Hypotension: chronic Blood pressure labile. Continue Midodrine. Patient on max dose. Increase free water flushes as needed. Seborrheic dermatitis: Stable S/p Ketoconazole 2% shampoo, hydrocortisone lotion, and multiple courses of hydrocortisone cream. Continue washing face regularly Chalazion: Nodule R upper eyelid. No evidence of preseptal cellulitis. -Warm compresses were applied but it was greater than 2 weeks without significant improvement. -Ophthalmology was consulted and evaluated patient on 03/26. S/p Tobradex 4 times a day OD x 2 weeks. Patient was intermittently compliant with eyedrops. -No worsening. Follow-up outpatient. Pre-renal azotemia: Improved Continue free water flushes Stage I decubitus ulcer buttocks Continue barrier cream, Mepilex dressings Frequent turning of patient. Candidal infection: buttocks affected with satellite lesions to the perineum. Resolved. -S/p Nystatin and clotrimazole Weakness: Continue physical therapy Nursing staff to get patient up out of bed at least 3 times daily DVT prophylaxis: SCDs. Avoid chemical prophylaxis secondary to GI bleed. Discharge Planning 02/04/17: Son wants patient on [place] [facility]. Per CM all [employer] facilities are full. [facility] and [facility] have been requested to evaluate patient. 02/06/17: CM requested [facility] to evaluate for placement. Madeline Ortez Feb 09, 2017 14:10
[2017-02-09] MEDS: MIRTAZAPINE 15 MG TAB PEG SCH (21:06)
[2017-02-09 21:43] VITALS: BP 110/73; PULSE 69; RESP 16; TEMP 97.7; O2SAT 97
[2017-02-10] MEDS: MIDODRINE 5 MG TAB PEG SCH ×3 (05:54→17:54)
[2017-02-10 08:00] VITALS: BP 131/79; PULSE 81; RESP 18; TEMP 97.9; O2SAT 95
[2017-02-10] MEDS: ALLOPURINOL 100 MG TAB PEG SCH (08:47)
[2017-02-10] MEDS: LANSOPRAZOLE SOLUTAB 30 MG TAB PEG SCH (08:47)
[2017-02-10] MEDS: FREE WATER G-TUBE SCH (08:55)
--- NOTE | 2017-02-10 10:48 | HHI.PR ---
Subjective Remarks Follow up for dementia. No acute complaints. Objective Vitals Vital Signs Date Time Temp Pulse Resp B/P (MAP) Pulse Ox O2 Delivery O2 Flow Rate FiO2 02/10/17 08:00 97.9 81 18 131/79 (96) 95 02/09/17 21:43 97.7 69 16 110/73 (85) 97 I/O 02/09/17 02/09/17 02/09/17 02/10/17 02/10/17 02/10/17 07:00 15:00 23:00 07:00 15:00 23:00 Intake Total 1480 ml 340 ml 340 ml Output Total 300 ml 500 ml 450 ml Balance -300 ml 1480 ml -160 ml -110 ml Tube Feeding 1080 ml 240 ml 240 ml Tube Irrigant 400 ml 100 ml Other 100 ml Output Urine Total 300 ml 500 ml 450 ml Stool Total 0 ml # Bowel Movements 1 Objective Remarks GENERAL: Elderly male in no apparent distress. CARDIOVASCULAR: Regular rate and rhythm. RESPIRATORY: No accessory muscle use. Clear to auscultation bilaterally. GASTROINTESTINAL: Abdomen soft, nontender, nondistended. PSYCH: Nods to answer questions but does not speak. Procedures None Urinary Catheter: Yes Assessment to: Continue Soto insert reason: Obstruction/Retention Date of Insertion: Feb 04, 2017 Vascular Central Line Catheter: No A/P Assessment and Plan Dementia with inappropriate behavior, mood disorder: Improved Patient had inappropriate behavior which is resolved now. Patient has been hospitalized for similar events in 2015 Consulted psychiatry for further evaluation, who indicated that this is a frontal lobe dementia. Risperdal was discontinued per POA request. Continue Remeron Psychiatry following; states patient does not have decisional capacity. Palliative care following. Son declines hospice. Protein calorie malnutrition: Improving Jevity 1.5 w/ bolus 1.5 cans (360ml) @ 0800, 1100 and 1400 and 1 can (240ml) @ 1700 and 2000. Free Water Flush 100ml before and after each bolus feeding. Welcome Desk Agent following. Ensure Enlive tid and chocolate pudding tid. Patient desired to eat and speech therapy advised puree diet, thin liquids, but patient has not been eating. Welcome Desk Agent suggested considering appetite stimulant. This was discussed with attending, but we do not believe this would be beneficial for patient and would add unnecessary risk to the patient. Will continue with tube feeds only. Hematuria: Resolved. -Patient is not on anticoagulation. -Hemoglobin normal. -Creatinine is normal. -UA 4/5 with innumerable RBCs, but urine sample not grossly bloody. Urinary tract infection, recurrent: Urine culture positive for Proteus mirabilis and GBS on 01/20. Patient completed course of antibiotics. Abdominal pelvis CT 03/06 shows decompressed bladder with circumferential bladder wall thickening and intraluminal air possibly indicating cystitis, but the patient had been afebrile with normal WBC count. Urine culture 05/31 with Serratia marcescens, Pseudomonas, and Enterococcus faecalis. Patient was started on antibiotics. Repeat urine culture on 06/04 only reveals contaminants. Urine culture /5 with Enterococcus faecalis and Pseudomonas Aeruginosa similar to previous culture on 05/31. Patient remains afebrile. CBC with normal white blood cell count. Continue to change Soto monthly. 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 Monitor and treat only if symptomatic. Mild obstructive uropathy: Resolved. Appreciate urology recommendations. Suprapubic catheter to be changed monthly; last changed 02/04/[address] 03/06/16 shows resolution of right sided hydronephrosis. Upper GI bleeding with recurrent rectal bleeding: Resolved. Hemoglobin stable. GI reevaluated patient on 05/04. Presumed hemorrhoids, s/p Anusol HC for total of 2 weeks. Continue PPI. Hypotension: chronic Blood pressure labile. Continue Midodrine. Patient on max dose. Increase free water flushes as needed. Seborrheic dermatitis: Stable S/p Ketoconazole 2% shampoo, hydrocortisone lotion, and multiple courses of hydrocortisone cream. Continue washing face regularly Chalazion: Nodule R upper eyelid. No evidence of preseptal cellulitis. -Warm compresses were applied but it was greater than 2 weeks without significant improvement. -Ophthalmology was consulted and evaluated patient on 03/26. S/p Tobradex 4 times a day OD x 2 weeks. Patient was intermittently compliant with eyedrops. -No worsening. Follow-up outpatient. Pre-renal azotemia: Improved Continue free water flushes Stage I decubitus ulcer buttocks Continue barrier cream, Mepilex dressings Frequent turning of patient. Candidal infection: buttocks affected with satellite lesions to the perineum. Resolved. -S/p Nystatin and clotrimazole Weakness: Continue physical therapy Nursing staff to get patient up out of bed at least 3 times daily DVT prophylaxis: SCDs. Avoid chemical prophylaxis secondary to GI bleed. Discharge Planning 02/04/17: Son wants patient [facility] [place] [facility]. Per CM all [employer] facilities are full. [facility] and [facility] have been requested to evaluate patient. 02/06/17: CM requested [facility] to evaluate for placement. Madeline Ortez Feb 10, 2017 10:48
[2017-02-10 20:00] VITALS: BP 103/62; PULSE 66; RESP 20; TEMP 98.2; O2SAT 98
[2017-02-10] MEDS: MIRTAZAPINE 15 MG TAB PEG SCH (22:00)
[2017-02-11] MEDS: MIDODRINE 5 MG TAB PEG SCH ×3 (06:10→17:00)
[2017-02-11] MEDS: ALLOPURINOL 100 MG TAB PEG SCH (08:20)
[2017-02-11] MEDS: LANSOPRAZOLE SOLUTAB 30 MG TAB PEG SCH (08:20)
[2017-02-11] MEDS: FREE WATER G-TUBE SCH (08:20)
--- NOTE | 2017-02-11 08:42 | HHI.PR ---
Subjective Remarks Patient seen and examined today for follow-up on weakness, dementia. Patient denies any new complaints. No change in clinical status. Objective Vitals Vital Signs Date Time Temp Pulse Resp B/P (MAP) Pulse Ox O2 Delivery O2 Flow Rate FiO2 02/10/17 20:00 98.2 66 20 103/62 (76) 98 I/O 02/10/17 02/10/17 02/10/17 02/11/17 02/11/17 02/11/17 07:00 15:00 23:00 07:00 15:00 23:00 Intake Total 340 ml 720 ml Output Total 450 ml 550 ml 550 ml 700 ml Balance -110 ml -550 ml -550 ml 20 ml Tube Feeding 240 ml 240 ml Other 100 ml 480 ml Output Urine Total 450 ml 550 ml 550 ml 700 ml # Bowel Movements 1 Objective Remarks GENERAL: Well-developed, well-nourished, in no acute distress. HEENT: Head is normocephalic without any lesions or masses noted. Facial features are symmetric. Eyes: Extraocular muscles are intact. Conjunctivae were clear. NECK: Trachea midline no deviation. CARDIAC: Regular rhythm, regular rate. S1/S2 are heard. No murmurs gallops or rubs. LUNGS: Clear to auscultation bilaterally. No wheeze, rhonchi or rales. No use of accessory muscles on inspiration or expiration. ABDOMEN: Soft, nontender. Nondistended. Bowel sounds heard in all 4 quadrants. No organomegaly or masses. Negative rebound, negative guarding, suprapubic catheter in place, PEG tube in place with no signs of infection, EXTREMITIES: No edema, pulses are equal bilaterally. No cyanosis or clubbing NEUROLOGY: Mood and affect appear appropriate. Cranial nerves II through XII grossly intact. Moving all extremities Procedures None Urinary Catheter: Yes (suprapubic catheter) Assessment to: Continue Soto insert reason: Obstruction/Retention Date of Insertion: Feb 04, 2017 Vascular Central Line Catheter: No A/P Assessment and Plan Weakness: Continue physical therapy, however patient refuses get out of bed majority of the time Nursing staff to get patient up out of bed at least 3 times daily Palliative care requested consult with psychiatry to see if patient has capacity to make decisions. Psychiatry evaluated patient states that he does not have capacity make his own decisions Palliative care discussed with family who is declining transition to comfort care, hospice. Dementia with inappropriate behavior, mood disorder improved Consulted psychiatry for further evaluation, who indicated that this is a frontal lobe dementia Continue Remeron Parkinson's disease: Patient has dementia and resting tremor. Chronic, stable. GI bleed with presenting of Upper GI bleed, patient with intermittent rectal bleeding: Wheel Alignment Technician consulted and Presumed hemorrhoids, continue Anusol HC as needed Presumed hemorrhoids Follow-up hemoglobin has remained stable Continue PPI. Protein calorie malnutrition: Improving PEG tube replaced 11/20/16 Consulted dietitian who indicated that patient may be converted to bolus feeding Jevity 1.5, 1.5, 360ml(1.5 cans)@ 0800, 1100, 1400 and 240ml(1-can)@ 1700 and 2000 Ensure Enlive 3 times a day since pudding 3 times a day Prealbumin level 25 Hypotension with episodes of hypertension: Stable Continue monitor blood pressure Continue Midodrine. obstructive uropathy: Resolved. With recurrent urinary tract infections. Treat only if symptomatic Suprapubic catheter in place, changed monthly, last changed 02/04/17 Seborrhea dermatitis, recurrent Counseled nursing staff on proper hygiene to avoid recurrence Responds well to Hydrocortisone cream. Continue to use when active DVT prophylaxis: Sequential compression devices Avoid chemical prophylaxis secondary to intermittent rectal bleeding Awaiting case management for discharge planning. Records reviewed, no change in treatment plan., Discharge Planning Discharge planning per case management. Jaguar Walker Feb 11, 2017 08:42
[2017-02-11 09:50] VITALS: BP 103/76; PULSE 73; RESP 16; TEMP 98.3; O2SAT 96
[2017-02-11 20:00] VITALS: BP 101/65; PULSE 82; RESP 20; TEMP 98.5; O2SAT 95
[2017-02-11] MEDS: MIRTAZAPINE 15 MG TAB PEG SCH (21:08)
[2017-02-12] MEDS: MIDODRINE 5 MG TAB PEG SCH ×3 (05:55→16:33)
--- NOTE | 2017-02-12 07:56 | HHI.PR ---
Subjective Remarks Patient seen and examined today for follow-up on weakness, dementia. Patient denies any new complaints. Gives me the thumbs up that everything is okay. Awaiting case management for discharge planning Objective Vitals Vital Signs Date Time Temp Pulse Resp B/P (MAP) Pulse Ox O2 Delivery O2 Flow Rate FiO2 02/11/17 20:00 98.5 82 20 101/65 (77) 95 02/11/17 09:50 98.3 73 16 103/76 (85) 96 I/O 02/11/17 02/11/17 02/11/17 02/12/17 02/12/17 02/12/17 06:59 14:59 22:59 06:59 14:59 22:59 Intake Total 720 ml 0 ml Output Total 700 ml 1000 ml 550 ml Balance 20 ml -1000 ml -550 ml Intake Oral 0 ml Tube Feeding 240 ml Other 480 ml Output Urine Total 700 ml 1000 ml 550 ml # Bowel Movements 1 1 Objective Remarks GENERAL: Well-developed, well-nourished, in no acute distress. HEENT: Head is normocephalic without any lesions or masses noted. Facial features are symmetric. Eyes: Extraocular muscles are intact. Conjunctivae were clear. NECK: Trachea midline no deviation. CARDIAC: Regular rhythm, regular rate. S1/S2 are heard. No murmurs gallops or rubs. LUNGS: Clear to auscultation bilaterally. No wheeze, rhonchi or rales. No use of accessory muscles on inspiration or expiration. ABDOMEN: Soft, nontender. Nondistended. Bowel sounds heard in all 4 quadrants. No organomegaly or masses. Negative rebound, negative guarding, suprapubic catheter in place, PEG tube in place with no signs of infection, EXTREMITIES: No edema, pulses are equal bilaterally. No cyanosis or clubbing NEUROLOGY: Mood and affect appear appropriate. Cranial nerves II through XII grossly intact. Moving all extremities Procedures None Urinary Catheter: Yes (suprapubic catheter) Assessment to: Continue Soto insert reason: Obstruction/Retention Date of Insertion: Feb 04, 2017 Vascular Central Line Catheter: No A/P Assessment and Plan Weakness: Continue physical therapy, however patient refuses get out of bed majority of the time Nursing staff to get patient up out of bed at least 3 times daily Palliative care requested consult with psychiatry to see if patient has capacity to make decisions. Psychiatry evaluated patient states that he does not have capacity make his own decisions Palliative care discussed with family who is declining transition to comfort care, hospice. Dementia with inappropriate behavior, mood disorder improved Consulted psychiatry for further evaluation, who indicated that this is a frontal lobe dementia Continue Remeron Parkinson's disease: Patient has dementia and resting tremor. Chronic, stable. GI bleed with presenting of Upper GI bleed, patient with intermittent rectal bleeding: Transfusion Aide consulted and Presumed hemorrhoids, continue Anusol HC as needed Presumed hemorrhoids Follow-up hemoglobin has remained stable Continue PPI. Protein calorie malnutrition: Improving PEG tube replaced 11/20/16 Consulted dietitian who indicated that patient may be converted to bolus feeding Jevity 1.5, 1.5, 360ml(1.5 cans)@ 0800, 1100, 1400 and 240ml(1-can)@ 1700 and 2000 Ensure Enlive 3 times a day since pudding 3 times a day Prealbumin level 25 Hypotension with episodes of hypertension: Stable Continue monitor blood pressure Continue Midodrine. obstructive uropathy: Resolved. With recurrent urinary tract infections. Treat only if symptomatic Suprapubic catheter in place, changed monthly, last changed 02/04/17 Seborrhea dermatitis, recurrent Counseled nursing staff on proper hygiene to avoid recurrence Responds well to Hydrocortisone cream. Continue to use when active DVT prophylaxis: Sequential compression devices Avoid chemical prophylaxis secondary to intermittent rectal bleeding Records reviewed, no change in treatment plan. Awaiting case management for discharge planning. Discharge Planning Discharge planning per case management. Jaguar Walker Feb 12, 2017 07:56
[2017-02-12 08:00] VITALS: BP 110/70; PULSE 80; RESP 18; TEMP 98; O2SAT 95
[2017-02-12] MEDS: ALLOPURINOL 100 MG TAB PEG SCH (08:07)
[2017-02-12] MEDS: LANSOPRAZOLE SOLUTAB 30 MG TAB PEG SCH (08:07)
[2017-02-12] MEDS: FREE WATER G-TUBE SCH (08:08)
[2017-02-12 20:00] VITALS: BP 102/63; PULSE 74; RESP 24; TEMP 98.3; O2SAT 95
[2017-02-12] MEDS: MIRTAZAPINE 15 MG TAB PEG SCH (22:43)
[2017-02-13] VITALS: BP 106/71; PULSE 73; RESP 24; TEMP 98.1; O2SAT 94
[2017-02-13] MEDS: MIDODRINE 5 MG TAB PEG SCH ×3 (06:23→17:05)
--- NOTE | 2017-02-13 07:42 | HHI.PR ---
Subjective Remarks Patient seen and examined today for follow-up on weakness, dementia. Patient has any new complaints. No change in clinical status. Awaiting briefcase sewer discharge planning Objective Vitals Vital Signs Date Time Temp Pulse Resp B/P (MAP) Pulse Ox O2 Delivery O2 Flow Rate FiO2 02/13/17 00:00 98.1 73 24 106/71 (83) 94 02/12/17 20:00 98.3 74 24 102/63 (76) 95 02/12/17 08:00 98.0 80 18 110/70 (83) 95 I/O 02/12/17 02/12/17 02/12/17 02/13/17 02/13/17 02/13/17 07:00 15:00 23:00 07:00 15:00 23:00 Intake Total 0 ml 560 ml Output Total 550 ml 1370 ml 600 ml Balance -550 ml -1370 ml -40 ml Intake Oral 0 ml Tube Feeding 240 ml Other 320 ml Output Urine Total 550 ml 720 ml 600 ml Stool Total 650 ml # Bowel Movements 1 1 2 Objective Remarks GENERAL: Well-developed, well-nourished, in no acute distress. HEENT: Head is normocephalic without any lesions or masses noted. Facial features are symmetric. Eyes: Extraocular muscles are intact. Conjunctivae were clear. NECK: Trachea midline no deviation. CARDIAC: Regular rhythm, regular rate. S1/S2 are heard. No murmurs gallops or rubs. LUNGS: Clear to auscultation bilaterally. No wheeze, rhonchi or rales. No use of accessory muscles on inspiration or expiration. ABDOMEN: Soft, nontender. Nondistended. Bowel sounds heard in all 4 quadrants. No organomegaly or masses. Negative rebound, negative guarding, suprapubic catheter in place, PEG tube in place with no signs of infection, EXTREMITIES: No edema, pulses are equal bilaterally. No cyanosis or clubbing NEUROLOGY: Mood and affect appear appropriate. Cranial nerves II through XII grossly intact. Moving all extremities Procedures None Urinary Catheter: Yes (suprapubic catheter) Assessment to: Continue Soto insert reason: Obstruction/Retention Date of Insertion: Feb 04, 2017 Vascular Central Line Catheter: No A/P Assessment and Plan Weakness: Continue physical therapy, however patient refuses get out of bed majority of the time Nursing staff to get patient up out of bed at least 3 times daily Palliative care requested consult with psychiatry to see if patient has capacity to make decisions. Psychiatry evaluated patient states that he does not have capacity make his own decisions Palliative care discussed with family who is declining transition to comfort care, hospice. Dementia with inappropriate behavior, mood disorder improved Consulted psychiatry for further evaluation, who indicated that this is a frontal lobe dementia Continue Remeron Parkinson's disease: Patient has dementia and resting tremor. Chronic, stable. GI bleed with presenting of Upper GI bleed, patient with intermittent rectal bleeding: Spa Manager consulted and Presumed hemorrhoids, continue Anusol HC as needed Presumed hemorrhoids Follow-up hemoglobin has remained stable Continue PPI. Protein calorie malnutrition: Improving PEG tube replaced 11/20/16 Consulted dietitian who indicated that patient may be converted to bolus feeding Jevity 1.5, 1.5, 360ml(1.5 cans)@ 0800, 1100, 1400 and 240ml(1-can)@ 1700 and 2000 Ensure Enlive 3 times a day since pudding 3 times a day Prealbumin level 25 Hypotension with episodes of hypertension: Stable Continue monitor blood pressure Continue Midodrine. obstructive uropathy: Resolved. With recurrent urinary tract infections. Treat only if symptomatic Suprapubic catheter in place, changed monthly, last changed 02/04/17 Seborrhea dermatitis, recurrent Counseled nursing staff on proper hygiene to avoid recurrence Responds well to Hydrocortisone cream. Continue to use when active DVT prophylaxis: Sequential compression devices Avoid chemical prophylaxis secondary to intermittent rectal bleeding Records reviewed, Awaiting case management for discharge planning. no change in treatment plan. Discharge Planning Discharge planning per case management. Jaguar Walker Feb 13, 2017 07:42
[2017-02-13 08:00] VITALS: BP 122/79; PULSE 79; RESP 18; TEMP 98; O2SAT 96
[2017-02-13] MEDS: FREE WATER G-TUBE SCH (09:00)
[2017-02-13] MEDS: LANSOPRAZOLE SOLUTAB 30 MG TAB PEG SCH (09:02)
[2017-02-13] MEDS: ALLOPURINOL 100 MG TAB PEG SCH (09:03)
[2017-02-13 20:00] VITALS: BP 117/74; PULSE 89; RESP 18; TEMP 98.1; O2SAT 96
[2017-02-13] MEDS: MIRTAZAPINE 15 MG TAB PEG SCH (21:40)
[2017-02-14] MEDS: MIDODRINE 5 MG TAB PEG SCH ×3 (06:15→17:57)
--- NOTE | 2017-02-14 07:44 | HHI.PR ---
Subjective Remarks Patient seen and examined today for follow-up on weakness, dementia. Patient lying in bed. Denies any new complaints. No change in clinical status. Awaiting case management for discharge planning Objective Vitals Vital Signs Date Time Temp Pulse Resp B/P (MAP) Pulse Ox O2 Delivery O2 Flow Rate FiO2 02/13/17 20:00 98.1 89 18 117/74 (88) 96 02/13/17 08:00 98.0 79 18 122/79 (93) 96 I/O 02/13/17 02/13/17 02/13/17 02/14/17 02/14/17 02/14/17 06:59 14:59 22:59 06:59 14:59 22:59 Intake Total 560 ml 1020 ml 900 ml Output Total 600 ml 550 ml 850 ml Balance -40 ml 1020 ml 350 ml -850 ml Tube Feeding 240 ml 720 ml 600 ml Tube Irrigant 300 ml 300 ml Other 320 ml Output Urine Total 600 ml 550 ml 850 ml # Bowel Movements 2 3 1 Objective Remarks GENERAL: Well-developed, well-nourished, in no acute distress. HEENT: Head is normocephalic without any lesions or masses noted. Facial features are symmetric. Eyes: Extraocular muscles are intact. Conjunctivae were clear. NECK: Trachea midline no deviation. CARDIAC: Regular rhythm, regular rate. S1/S2 are heard. No murmurs gallops or rubs. LUNGS: Clear to auscultation bilaterally. No wheeze, rhonchi or rales. No use of accessory muscles on inspiration or expiration. ABDOMEN: Soft, nontender. Nondistended. Bowel sounds heard in all 4 quadrants. No organomegaly or masses. Negative rebound, negative guarding, suprapubic catheter in place, PEG tube in place with no signs of infection, EXTREMITIES: No edema, pulses are equal bilaterally. No cyanosis or clubbing NEUROLOGY: Mood and affect appear appropriate. Cranial nerves II through XII grossly intact. Moving all extremities Procedures None Urinary Catheter: Yes (suprapubic catheter) Assessment to: Continue Soto insert reason: Obstruction/Retention Date of Insertion: Feb 04, 2017 Vascular Central Line Catheter: No A/P Assessment and Plan Weakness: Continue physical therapy, however patient refuses get out of bed majority of the time Nursing staff to get patient up out of bed at least 3 times daily Palliative care requested consult with psychiatry to see if patient has capacity to make decisions. Psychiatry evaluated patient states that he does not have capacity make his own decisions Palliative care discussed with family who is declining transition to comfort care, hospice. Dementia with inappropriate behavior, mood disorder improved Consulted psychiatry for further evaluation, who indicated that this is a frontal lobe dementia Continue Remeron Parkinson's disease: Patient has dementia and resting tremor. Chronic, stable. GI bleed with presenting of Upper GI bleed, patient with intermittent rectal bleeding: Railroad Auditor consulted and Presumed hemorrhoids, continue Anusol HC as needed Presumed hemorrhoids Follow-up hemoglobin has remained stable Continue PPI. Protein calorie malnutrition: Improving PEG tube replaced 11/20/16 Consulted dietitian who indicated that patient may be converted to bolus feeding Jevity 1.5, 1.5, 360ml(1.5 cans)@ 0800, 1100, 1400 and 240ml(1-can)@ 1700 and 2000 Ensure Enlive 3 times a day since pudding 3 times a day Prealbumin level 25 Hypotension with episodes of hypertension: Stable Continue monitor blood pressure Continue Midodrine. obstructive uropathy: Resolved. With recurrent urinary tract infections. Treat only if symptomatic Suprapubic catheter in place, changed monthly, last changed 02/04/17 Seborrhea dermatitis, recurrent Counseled nursing staff on proper hygiene to avoid recurrence Responds well to Hydrocortisone cream. Continue to use when active DVT prophylaxis: Sequential compression devices Avoid chemical prophylaxis secondary to intermittent rectal bleeding Records reviewed, no change in treatment plan. Awaiting case management for discharge planning. Discharge Planning Discharge planning per case management. Jaguar Walker Feb 14, 2017 07:44
[2017-02-14 08:00] VITALS: BP 119/73; PULSE 75; RESP 18; TEMP 97.8; O2SAT 93
[2017-02-14] MEDS: ALLOPURINOL 100 MG TAB PEG SCH (08:57)
[2017-02-14] MEDS: LANSOPRAZOLE SOLUTAB 30 MG TAB PEG SCH (08:57)
[2017-02-14] MEDS: FREE WATER G-TUBE SCH (08:57)
[2017-02-14 20:00] VITALS: BP 106/60; PULSE 78; RESP 20; TEMP 97.3; O2SAT 96
[2017-02-14] MEDS: MIRTAZAPINE 15 MG TAB PEG SCH (22:45)
[2017-02-15] MEDS: MIDODRINE 5 MG TAB PEG SCH ×3 (05:52→17:00)
--- NOTE | 2017-02-15 07:47 | HHI.PR ---
Subjective Remarks Patient seen and examined today for follow-up on weakness and dementia. Patient denies any new complaints. No change in clinical status. Awaiting case management for discharge planning. Objective Vitals Vital Signs Date Time Temp Pulse Resp B/P (MAP) Pulse Ox O2 Delivery O2 Flow Rate FiO2 02/14/17 20:00 97.3 78 20 106/60 (75) 96 02/14/17 08:00 97.8 75 18 119/73 (88) 93 I/O 02/14/17 02/14/17 02/14/17 02/15/17 02/15/17 02/15/17 07:00 15:00 23:00 07:00 15:00 23:00 Intake Total 660 ml 0 ml Output Total 850 ml 700 ml 300 ml Balance -850 ml 660 ml -700 ml -300 ml Intake Oral 0 ml Tube Feeding 360 ml Tube Irrigant 300 ml Output Urine Total 850 ml 700 ml 300 ml # Bowel Movements 1 1 1 Objective Remarks GENERAL: Well-developed, well-nourished, in no acute distress. HEENT: Head is normocephalic without any lesions or masses noted. Facial features are symmetric. Eyes: Extraocular muscles are intact. Conjunctivae were clear. NECK: Trachea midline no deviation. CARDIAC: Regular rhythm, regular rate. S1/S2 are heard. No murmurs gallops or rubs. LUNGS: Clear to auscultation bilaterally. No wheeze, rhonchi or rales. No use of accessory muscles on inspiration or expiration. ABDOMEN: Soft, nontender. Nondistended. Bowel sounds heard in all 4 quadrants. No organomegaly or masses. Negative rebound, negative guarding, suprapubic catheter in place, PEG tube in place with no signs of infection, EXTREMITIES: No edema, pulses are equal bilaterally. No cyanosis or clubbing NEUROLOGY: Mood and affect appear appropriate. Cranial nerves II through XII grossly intact. Moving all extremities Procedures None Urinary Catheter: Yes (suprapubic catheter) Assessment to: Continue Soto insert reason: Obstruction/Retention Date of Insertion: Feb 04, 2017 Vascular Central Line Catheter: No A/P Assessment and Plan Weakness: Continue physical therapy, however patient refuses get out of bed majority of the time Nursing staff to get patient up out of bed at least 3 times daily Palliative care requested consult with psychiatry to see if patient has capacity to make decisions. Psychiatry evaluated patient states that he does not have capacity make his own decisions Palliative care discussed with family who is declining transition to comfort care, hospice. Dementia with inappropriate behavior, mood disorder improved Consulted psychiatry for further evaluation, who indicated that this is a frontal lobe dementia Continue Remeron Parkinson's disease: Patient has dementia and resting tremor. Chronic, stable. GI bleed with presenting of Upper GI bleed, patient with intermittent rectal bleeding: Precision Aircraft Structure Assembler consulted and Presumed hemorrhoids, continue Anusol HC as needed Presumed hemorrhoids Follow-up hemoglobin has remained stable Continue PPI. Protein calorie malnutrition: Improving PEG tube replaced 11/20/16 Consulted dietitian who indicated that patient may be converted to bolus feeding Jevity 1.5, 1.5, 360ml(1.5 cans)@ 0800, 1100, 1400 and 240ml(1-can)@ 1700 and 2000 Ensure Enlive 3 times a day since pudding 3 times a day Prealbumin level 25 Hypotension with episodes of hypertension: Stable Continue monitor blood pressure Continue Midodrine. obstructive uropathy: Resolved. With recurrent urinary tract infections. Treat only if symptomatic Suprapubic catheter in place, changed monthly, last changed 02/04/17 Seborrhea dermatitis, recurrent Counseled nursing staff on proper hygiene to avoid recurrence Responds well to Hydrocortisone cream. Continue to use when active DVT prophylaxis: Sequential compression devices Avoid chemical prophylaxis secondary to intermittent rectal bleeding Records reviewed, Awaiting case management for discharge planning. no change in treatment plan. Discharge Planning Discharge planning per case management. Jaguar Walker Feb 15, 2017 07:47
[2017-02-15 07:50] VITALS: BP 112/67; PULSE 67; RESP 20; TEMP 96.1; O2SAT 95
[2017-02-15] MEDS: FREE WATER G-TUBE SCH (08:59)
[2017-02-15] MEDS: LANSOPRAZOLE SOLUTAB 30 MG TAB PEG SCH (08:59)
[2017-02-15] MEDS: ALLOPURINOL 100 MG TAB PEG SCH (09:00)
[2017-02-15 20:00] VITALS: BP 110/74; PULSE 88; RESP 16; TEMP 97.7; O2SAT 94
[2017-02-15] MEDS: MIRTAZAPINE 15 MG TAB PEG SCH (21:00)
[2017-02-16] MEDS: MIDODRINE 5 MG TAB PEG SCH ×3 (06:17→17:00)
[2017-02-16 07:12] LABS: BASOPHIL % 0.2 % (0.0-2.0); EOSINOPHIL # 0.1 TH/MM3 (0-0.4); EOSINOPHIL % 1.7 % (0.0-4.0); HEMATOCRIT 45.2 % (39.0-51.0); HEMO FLAGS DIFF FINAL; LYMPH % 33.7 % (9.0-44.0); LYMPHOCYTE # 2.8 TH/MM3 (1.0-4.8); MEAN CELL VOLUME 87.2 FL (80.0-100.0); MEAN CORPUSCULAR HEMOGLOBIN 28.2 PG (27.0-34.0); MEAN CORPUSCULAR HGB CONC 32.4 % (32.0-36.0); MONO % 5.4 % (0.0-8.0); PLATELET COUNT 203 TH/MM3 (150-450); RED BLOOD COUNT 5.19 MIL/MM3 (4.50-5.90); RED CELL DISTRIBUTION WIDTH 15.2 % (11.6-17.2); WHITE BLOOD COUNT 8.4 TH/MM3 (4.0-11.0)
[2017-02-16 07:24] LABS: CHLORIDE 102 MEQ/L (98-107); POTASSIUM 4.1 MEQ/L (3.5-5.1); SODIUM (NA) 140 MEQ/L (136-145)
[2017-02-16 07:30] LABS: ANION GAP 7 MEQ/L (5-15); BICARBONATE 31.4 MEQ/L (21.0-32.0); BLOOD UREA NITROGEN 29 MG/DL (7-18); MAGNESIUM 2.4 MG/DL (1.5-2.5)
[2017-02-16 07:33] LABS: ALT (GPT) 19 U/L (12-78); AST (GOT) 30 U/L (15-37); GLOMERULAR FILTRATION RATE 93 ML/MIN (>89)
[2017-02-16 07:35] LABS: TOTAL BILIRUBIN ADULT 0.3 MG/DL (0.2-1.0)
[2017-02-16 07:36] LABS: ALKALINE PHOSPHATASE 126 U/L (45-117)
[2017-02-16 07:50] VITALS: BP 105/70; PULSE 68; RESP 20; TEMP 96.5; O2SAT 97
[2017-02-16] MEDS: LANSOPRAZOLE SOLUTAB 30 MG TAB PEG SCH (08:13)
[2017-02-16] MEDS: FREE WATER G-TUBE SCH (08:13)
[2017-02-16] MEDS: ALLOPURINOL 100 MG TAB PEG SCH (08:13)
--- NOTE | 2017-02-16 12:18 | HHI.PR ---
Subjective Remarks Patient seen and examined today for follow-up on weakness, dementia. Patient denies any new complaints. No change in clinical status. Awaiting case management for discharge planning Objective Vitals Vital Signs Date Time Temp Pulse Resp B/P (MAP) Pulse Ox O2 Delivery O2 Flow Rate FiO2 02/16/17 07:50 96.5 68 20 105/70 (82) 97 02/15/17 20:00 97.7 88 16 110/74 (86) 94 I/O 02/15/17 02/15/17 02/15/17 02/16/17 02/16/17 02/16/17 07:00 15:00 23:00 07:00 15:00 23:00 Intake Total 0 ml 460 ml 100 ml Output Total 300 ml 850 ml 600 ml Balance -300 ml -390 ml -500 ml Intake Oral 0 ml 0 ml Tube Feeding 360 ml Other 100 ml 100 ml Output Urine Total 300 ml 850 ml 600 ml # Bowel Movements 1 4 2 Result Diagram: 02/16/1760502/16/17605 Objective Remarks GENERAL: Well-developed, well-nourished, in no acute distress. HEENT: Head is normocephalic without any lesions or masses noted. Facial features are symmetric. Eyes: Extraocular muscles are intact. Conjunctivae were clear. NECK: Trachea midline no deviation. CARDIAC: Regular rhythm, regular rate. S1/S2 are heard. No murmurs gallops or rubs. LUNGS: Clear to auscultation bilaterally. No wheeze, rhonchi or rales. No use of accessory muscles on inspiration or expiration. ABDOMEN: Soft, nontender. Nondistended. Bowel sounds heard in all 4 quadrants. No organomegaly or masses. Negative rebound, negative guarding, suprapubic catheter in place, PEG tube in place with no signs of infection, EXTREMITIES: No edema, pulses are equal bilaterally. No cyanosis or clubbing NEUROLOGY: Mood and affect appear appropriate. Cranial nerves II through XII grossly intact. Moving all extremities Procedures None Urinary Catheter: Yes (suprapubic catheter) Assessment to: Continue Soto insert reason: Obstruction/Retention Date of Insertion: Feb 04, 2017 Vascular Central Line Catheter: No A/P Assessment and Plan Weakness: Continue physical therapy, however patient refuses get out of bed majority of the time Nursing staff to get patient up out of bed at least 3 times daily Palliative care requested consult with psychiatry to see if patient has capacity to make decisions. Psychiatry evaluated patient states that he does not have capacity make his own decisions Palliative care discussed with family who is declining transition to comfort care, hospice. Dementia with inappropriate behavior, mood disorder improved Consulted psychiatry for further evaluation, who indicated that this is a frontal lobe dementia Continue Remeron Parkinson's disease: Patient has dementia and resting tremor. Chronic, stable. GI bleed with presenting of Upper GI bleed, patient with intermittent rectal bleeding: It Systems Analyst consulted and Presumed hemorrhoids, continue Anusol HC as needed Presumed hemorrhoids Follow-up hemoglobin has remained stable Continue PPI. Protein calorie malnutrition: Improving PEG tube replaced 11/20/16 Consulted dietitian who indicated that patient may be converted to bolus feeding Jevity 1.5, 1.5, 360ml(1.5 cans)@ 0800, 1100, 1400 and 240ml(1-can)@ 1700 and 2000 Ensure Enlive 3 times a day since pudding 3 times a day Prealbumin level 25 Hypotension with episodes of hypertension: Stable Continue monitor blood pressure Continue Midodrine. obstructive uropathy: Resolved. With recurrent urinary tract infections. Treat only if symptomatic Suprapubic catheter in place, changed monthly, last changed 02/04/17 Seborrhea dermatitis, recurrent Counseled nursing staff on proper hygiene to avoid recurrence Responds well to Hydrocortisone cream. Continue to use when active DVT prophylaxis: Sequential compression devices Avoid chemical prophylaxis secondary to intermittent rectal bleeding Records reviewed, no change in treatment plan. Awaiting case management for discharge planning. Discharge Planning Discharge planning per case management. Jaguar Walker Feb 16, 2017 12:18
[2017-02-16 20:00] VITALS: BP 95/64; PULSE 80; RESP 16; TEMP 97.7; O2SAT 95
[2017-02-16] MEDS: MIRTAZAPINE 15 MG TAB PEG SCH (20:49)
[2017-02-17] MEDS: MIDODRINE 5 MG TAB PEG SCH ×3 (06:22→17:34)
[2017-02-17] MEDS: FREE WATER G-TUBE SCH (07:50)
[2017-02-17 08:00] VITALS: BP 118/68; PULSE 90; RESP 18; TEMP 97.8; O2SAT 96
--- NOTE | 2017-02-17 08:34 | HHI.PR ---
Subjective Remarks Patient seen and examined today for follow-up on weakness, dementia. Patient denies any new complaints. No change in clinical status. Awaiting case management for discharge planning. Objective Vitals Vital Signs Date Time Temp Pulse Resp B/P (MAP) Pulse Ox O2 Delivery O2 Flow Rate FiO2 02/16/17 20:00 97.7 80 16 95/64 (74) 95 I/O 02/16/17 02/16/17 02/16/17 02/17/17 02/17/17 02/17/17 07:00 15:00 23:00 07:00 15:00 23:00 Intake Total 100 ml 0 ml Output Total 600 ml 600 ml Balance -500 ml -600 ml Intake Oral 0 ml Other 100 ml Output Urine Total 600 ml 600 ml # Bowel Movements 2 3 Result Diagram: 02/16/1760502/16/17605 Objective Remarks GENERAL: Well-developed, well-nourished, in no acute distress. HEENT: Head is normocephalic without any lesions or masses noted. Facial features are symmetric. Eyes: Extraocular muscles are intact. Conjunctivae were clear. NECK: Trachea midline no deviation. CARDIAC: Regular rhythm, regular rate. S1/S2 are heard. No murmurs gallops or rubs. LUNGS: Clear to auscultation bilaterally. No wheeze, rhonchi or rales. No use of accessory muscles on inspiration or expiration. ABDOMEN: Soft, nontender. Nondistended. Bowel sounds heard in all 4 quadrants. No organomegaly or masses. Negative rebound, negative guarding, suprapubic catheter in place, PEG tube in place with no signs of infection, EXTREMITIES: No edema, pulses are equal bilaterally. No cyanosis or clubbing NEUROLOGY: Mood and affect appear appropriate. Cranial nerves II through XII grossly intact. Moving all extremities Procedures None Urinary Catheter: Yes (suprapubic catheter) Assessment to: Continue Soto insert reason: Obstruction/Retention Date of Insertion: Feb 04, 2017 Vascular Central Line Catheter: No A/P Assessment and Plan Weakness: Continue physical therapy, however patient refuses get out of bed majority of the time Nursing staff to get patient up out of bed at least 3 times daily Palliative care requested consult with psychiatry to see if patient has capacity to make decisions. Psychiatry evaluated patient states that he does not have capacity make his own decisions Palliative care discussed with family who is declining transition to comfort care, hospice. Dementia with inappropriate behavior, mood disorder improved Consulted psychiatry for further evaluation, who indicated that this is a frontal lobe dementia Continue Remeron Parkinson's disease: Patient has dementia and resting tremor. Chronic, stable. GI bleed with presenting of Upper GI bleed, patient with intermittent rectal bleeding: Service Department Manager consulted and Presumed hemorrhoids, continue Anusol HC as needed Presumed hemorrhoids Follow-up hemoglobin has remained stable Continue PPI. Protein calorie malnutrition: Improving PEG tube replaced 11/20/16 Consulted dietitian who indicated that patient may be converted to bolus feeding Jevity 1.5, 1.5, 360ml(1.5 cans)@ 0800, 1100, 1400 and 240ml(1-can)@ 1700 and 2000 Ensure Enlive 3 times a day since pudding 3 times a day Prealbumin level 25 Hypotension with episodes of hypertension: Stable Continue monitor blood pressure Continue Midodrine. obstructive uropathy: Resolved. With recurrent urinary tract infections. Treat only if symptomatic Suprapubic catheter in place, changed monthly, last changed 02/04/17 Seborrhea dermatitis, recurrent Counseled nursing staff on proper hygiene to avoid recurrence Responds well to Hydrocortisone cream. Continue to use when active DVT prophylaxis: Sequential compression devices Avoid chemical prophylaxis secondary to intermittent rectal bleeding Records reviewed, Awaiting case management for discharge planning. no change in treatment plan. Discharge Planning Discharge planning per case management. Jaguar Walker Feb 17, 2017 08:34
[2017-02-17] MEDS: LANSOPRAZOLE SOLUTAB 30 MG TAB PEG SCH (08:46)
[2017-02-17] MEDS: ALLOPURINOL 100 MG TAB PEG SCH (08:46)
[2017-02-17 20:00] VITALS: BP 109/68; PULSE 70; RESP 18; TEMP 96.6; O2SAT 96
[2017-02-17] MEDS: MIRTAZAPINE 15 MG TAB PEG SCH (20:52)
[2017-02-18] MEDS: MIDODRINE 5 MG TAB PEG SCH ×3 (06:14→17:12)
[2017-02-18 08:00] VITALS: BP 118/68; PULSE 68; RESP 16; TEMP 97.8; O2SAT 97
[2017-02-18] MEDS: FREE WATER G-TUBE SCH (09:00)
--- NOTE | 2017-02-18 10:11 | HHI.PR ---
Subjective Remarks Follow-up for dementia. No acute complaints. Objective Vitals Vital Signs Date Time Temp Pulse Resp B/P (MAP) Pulse Ox O2 Delivery O2 Flow Rate FiO2 02/18/17 08:00 97.8 68 16 118/68 (85) 97 02/17/17 20:00 96.6 70 18 109/68 (82) 96 I/O 02/17/17 02/17/17 02/17/17 02/18/17 02/18/17 02/18/17 07:00 15:00 23:00 07:00 15:00 23:00 Output Total 750 ml Balance -750 ml Output Urine Total 750 ml # Bowel Movements 1 Result Diagram: 02/16/1760502/16/17605 Objective Remarks GENERAL: Elderly male in no apparent distress. CARDIOVASCULAR: Regular rate and rhythm. RESPIRATORY: No accessory muscle use. Clear to auscultation bilaterally, but breath sounds decreased over RLL, chronic. GASTROINTESTINAL: Abdomen soft, nontender, nondistended. PSYCH: Nods to answer questions but does not speak. Procedures None Urinary Catheter: Yes Assessment to: Continue Soto insert reason: Obstruction/Retention Date of Insertion: Feb 04, 2017 Vascular Central Line Catheter: No A/P Assessment and Plan Dementia with inappropriate behavior, mood disorder: Improved Patient had inappropriate behavior which is resolved now. Patient has been hospitalized for similar events in 2015 Consulted psychiatry for further evaluation, who indicated that this is a frontal lobe dementia. Risperdal was discontinued per POA request. Continue Remeron Psychiatry following; states patient does not have decisional capacity. Palliative care following. Son declines hospice. Protein calorie malnutrition: Improving Jevity 1.5 w/ bolus 1.5 cans (360ml) @ 0800, 1100 and 1400 and 1 can (240ml) @ 1700 and 2000. Free Water Flush 100ml before and after each bolus feeding. Mortgage Underwriter following. Ensure Enlive tid and chocolate pudding tid. Patient desired to eat and speech therapy advised puree diet, thin liquids, but patient has not been eating. Mortgage Underwriter suggested considering appetite stimulant. This was discussed with attending, but we do not believe this would be beneficial for patient and would add unnecessary risk to the patient. Will continue with tube feeds only. Hematuria: Resolved. -Patient is not on anticoagulation. -Hemoglobin normal. -Creatinine is normal. -UA 4/5 with innumerable RBCs, but urine sample not grossly bloody. Urinary tract infection, recurrent: Urine culture positive for Proteus mirabilis and GBS on 01/20. Patient completed course of antibiotics. Abdominal pelvis CT 03/06 shows decompressed bladder with circumferential bladder wall thickening and intraluminal air possibly indicating cystitis, but the patient had been afebrile with normal WBC count. Urine culture 05/31 with Serratia marcescens, Pseudomonas, and Enterococcus faecalis. Patient was started on antibiotics. Repeat urine culture on 06/04 only reveals contaminants. Urine culture 4/5 with Enterococcus faecalis and Pseudomonas Aeruginosa similar to previous culture on 05/31. Patient remains afebrile. CBC with normal white blood cell count. Continue to change Soto monthly. 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 Monitor and treat only if symptomatic. Mild obstructive uropathy: Resolved. Appreciate urology recommendations. Suprapubic catheter to be changed monthly; last changed 02/04/[address] 03/06/16 shows resolution of right sided hydronephrosis. Upper GI bleeding with recurrent rectal bleeding: Resolved. Hemoglobin stable. GI reevaluated patient on 05/04. Presumed hemorrhoids, s/p Anusol HC for total of 2 weeks. Continue PPI. Hypotension: chronic Blood pressure labile. Continue Midodrine. Patient on max dose. Increase free water flushes as needed. Seborrheic dermatitis: Stable S/p Ketoconazole 2% shampoo, hydrocortisone lotion, and multiple courses of hydrocortisone cream. Continue washing face regularly Chalazion: Nodule R upper eyelid. No evidence of preseptal cellulitis. -Warm compresses were applied but it was greater than 2 weeks without significant improvement. -Ophthalmology was consulted and evaluated patient on 03/26. S/p Tobradex 4 times a day OD x 2 weeks. Patient was intermittently compliant with eyedrops. -No worsening. Follow-up outpatient. Pre-renal azotemia: Improved Continue free water flushes Stage I decubitus ulcer buttocks Continue barrier cream, Mepilex dressings Frequent turning of patient. Candidal infection: buttocks affected with satellite lesions to the perineum. Resolved. -S/p Nystatin and clotrimazole Weakness: Continue physical therapy Nursing staff to get patient up out of bed at least 3 times daily DVT prophylaxis: SCDs. Avoid chemical prophylaxis secondary to GI bleed. Discharge Planning 02/04/17: Son [facility] [place] [facility]. Per CM all [facility] facilities are full. [facility] have been requested to evaluate patient. 02/06/17: CM requested [facility] to evaluate for placement. Madeline Ortez Feb 18, 2017 10:11
[2017-02-18] MEDS: ALLOPURINOL 100 MG TAB PEG SCH (10:51)
[2017-02-18] MEDS: LANSOPRAZOLE SOLUTAB 30 MG TAB PEG SCH (10:51)
[2017-02-18 20:00] VITALS: BP_SYST 105; BP_SYST 116; BP_DIAS 64; BP_DIAS 73; PULSE 120; PULSE 77; RESP 16; RESP 22; TEMP 97.7; TEMP 98.9; O2SAT 87; O2SAT 95
[2017-02-18] MEDS: MIRTAZAPINE 15 MG TAB PEG SCH (22:14)
[2017-02-19] MEDS: MIDODRINE 5 MG TAB PEG SCH ×3 (06:07→17:39)
[2017-02-19 08:00] VITALS: BP 114/71; PULSE 76; RESP 16; TEMP 98.1; O2SAT 92
[2017-02-19] MEDS: FREE WATER G-TUBE SCH (09:00)
[2017-02-19] MEDS: ALLOPURINOL 100 MG TAB PEG SCH (09:00)
[2017-02-19] MEDS: LANSOPRAZOLE SOLUTAB 30 MG TAB PEG SCH (10:31)
[2017-02-19 12:00] VITALS: BP 105/69; PULSE 81; RESP 12; TEMP 97.7; O2SAT 93
--- NOTE | 2017-02-19 13:26 | HHI.PR ---
Subjective Remarks Follow-up for dementia. No acute complaints Objective Vitals Vital Signs Date Time Temp Pulse Resp B/P (MAP) Pulse Ox O2 Delivery O2 Flow Rate FiO2 02/19/17 12:00 97.7 81 12 105/69 (81) 93 02/19/17 08:00 98.1 76 16 114/71 (85) 92 02/18/17 20:00 97.7 77 16 116/73 (87) 95 I/O 02/18/17 02/18/17 02/18/17 02/19/17 02/19/17 02/19/17 06:59 14:59 22:59 06:59 14:59 22:59 Output Total 603 ml 1225 ml Balance -603 ml -1225 ml Output Urine Total 600 ml 1225 ml Stool Total 3 ml # Voids 1 # Bowel Movements 2 4 Result Diagram: 02/16/1760502/16/17605 Objective Remarks GENERAL: Elderly male in no apparent distress. SKIN: Flaky skin to the face. CARDIOVASCULAR: Regular rate and rhythm. RESPIRATORY: No accessory muscle use. Clear to auscultation bilaterally. GASTROINTESTINAL: Abdomen soft, nontender, nondistended. PSYCH: Nods to answer questions but does not speak. Procedures None Urinary Catheter: Yes Assessment to: Continue Soto insert reason: Obstruction/Retention Date of Insertion: Feb 04, 2017 Vascular Central Line Catheter: No A/P Assessment and Plan Dementia with inappropriate behavior, mood disorder: Improved Patient had inappropriate behavior which is resolved now. Patient has been hospitalized for similar events in 2015 Consulted psychiatry for further evaluation, who indicated that this is a frontal lobe dementia. Risperdal was discontinued per POA request. Continue Remeron Psychiatry following; states patient does not have decisional capacity. Palliative care following. Son declines hospice. Protein calorie malnutrition: Improving Jevity 1.5 w/ bolus 1.5 cans (360ml) @ 0800, 1100 and 1400 and 1 can (240ml) @ 1700 and 2000. Free Water Flush 100ml before and after each bolus feeding. Mold Parter following. Ensure Enlive tid and chocolate pudding tid. Patient desired to eat and speech therapy advised puree diet, thin liquids, but patient has not been eating. Mold Parter suggested considering appetite stimulant. This was discussed with attending, but we do not believe this would be beneficial for patient and would add unnecessary risk to the patient. Will continue with tube feeds only. Hematuria: Resolved. -Patient is not on anticoagulation. -Hemoglobin normal. -Creatinine is normal. -UA 4/5 with innumerable RBCs, but urine sample not grossly bloody. Urinary tract infection, recurrent: Urine culture positive for Proteus mirabilis and GBS on 01/20. Patient completed course of antibiotics. Abdominal pelvis CT 03/06 shows decompressed bladder with circumferential bladder wall thickening and intraluminal air possibly indicating cystitis, but the patient had been afebrile with normal WBC count. Urine culture 05/31 with Serratia marcescens, Pseudomonas, and Enterococcus faecalis. Patient was started on antibiotics. Repeat urine culture on 06/04 only reveals contaminants. Urine culture / with Enterococcus faecalis and Pseudomonas Aeruginosa similar to previous culture on 05/31. Patient remains afebrile. CBC with normal white blood cell count. Continue to change Soto monthly. 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 Monitor and treat only if symptomatic. Mild obstructive uropathy: Resolved. Appreciate urology recommendations. Suprapubic catheter to be changed monthly; last changed 02/04/[address] 03/06/16 shows resolution of right sided hydronephrosis. Upper GI bleeding with recurrent rectal bleeding: Resolved. Hemoglobin stable. GI reevaluated patient on 05/04. Presumed hemorrhoids, s/p Anusol HC for total of 2 weeks. Continue PPI. Hypotension: chronic Blood pressure labile. Continue Midodrine. Patient on max dose. Increase free water flushes as needed. Seborrheic dermatitis: Stable S/p Ketoconazole 2% shampoo, hydrocortisone lotion, and multiple courses of hydrocortisone cream. Continue washing face regularly Chalazion: Nodule R upper eyelid. No evidence of preseptal cellulitis. -Warm compresses were applied but it was greater than 2 weeks without significant improvement. -Ophthalmology was consulted and evaluated patient on 03/26. S/p Tobradex 4 times a day OD x 2 weeks. Patient was intermittently compliant with eyedrops. -No worsening. Follow-up outpatient. Pre-renal azotemia: Improved Continue free water flushes Stage I decubitus ulcer buttocks Continue barrier cream, Mepilex dressings Frequent turning of patient. Candidal infection: buttocks affected with satellite lesions to the perineum. Resolved. -S/p Nystatin and clotrimazole Weakness: Continue physical therapy Nursing staff to get patient up out of bed at least 3 times daily DVT prophylaxis: SCDs. Avoid chemical prophylaxis secondary to GI bleed. Discharge Planning 02/04/17: Son wants patient on [facility]. Per CM all [employer] facilities are full. [facility] have been requested to evaluate patient. 02/06/17: requested [facility] to evaluate for placement. Madeline Ortez Feb 19, 2017 13:26
[2017-02-19 16:00] VITALS: BP 113/75; PULSE 76; RESP 16; TEMP 97.7; O2SAT 95
[2017-02-19 20:00] VITALS: BP 122/78; PULSE 75; RESP 20; TEMP 97.4; O2SAT 94
[2017-02-19] MEDS: MIRTAZAPINE 15 MG TAB PEG SCH (22:59)
[2017-02-20] MEDS: MIDODRINE 5 MG TAB PEG SCH ×3 (06:45→17:00)
[2017-02-20 08:00] VITALS: BP 127/75; PULSE 76; RESP 20; TEMP 96.8; O2SAT 93
[2017-02-20] MEDS: FREE WATER G-TUBE SCH (09:00)
[2017-02-20] MEDS: ALLOPURINOL 100 MG TAB PEG SCH (11:38)
[2017-02-20] MEDS: LANSOPRAZOLE SOLUTAB 30 MG TAB PEG SCH (11:38)
--- NOTE | 2017-02-20 11:42 | HHI.PR ---
Subjective Remarks Follow up for dementia. No acute complaints. Objective Vitals Vital Signs Date Time Temp Pulse Resp B/P (MAP) Pulse Ox O2 Delivery O2 Flow Rate FiO2 02/20/17 08:00 96.8 76 20 127/75 (92) 93 02/19/17 20:00 97.4 75 20 122/78 (93) 94 02/19/17 16:00 97.7 76 16 113/75 (88) 95 02/19/17 12:00 97.7 81 12 105/69 (81) 93 I/O 02/19/17 02/19/17 02/19/17 02/20/17 02/20/17 02/20/17 07:00 15:00 23:00 07:00 15:00 23:00 Intake Total 0 ml 440 ml Output Total 1225 ml 800 ml 550 ml Balance -1225 ml -800 ml -110 ml Intake Oral 0 ml 0 ml Tube Feeding 240 ml Other 200 ml Output Urine Total 1225 ml 800 ml 550 ml # Voids 1 1 # Bowel Movements 4 3 3 Result Diagram: 02/16/1760502/16/17605 Objective Remarks GENERAL: Elderly male in no apparent distress. SKIN: Flaky skin to the face. CARDIOVASCULAR: Regular rate and rhythm. RESPIRATORY: No accessory muscle use. Clear to auscultation bilaterally. Breath sounds decreased over RLL compared to left which is chronic. GASTROINTESTINAL: Abdomen soft, nontender, nondistended. PSYCH: Nods to answer questions but does not speak. Procedures None Urinary Catheter: Yes Assessment to: Continue Soto insert reason: Obstruction/Retention Date of Insertion: Feb 04, 2017 Vascular Central Line Catheter: No A/P Assessment and Plan Dementia with inappropriate behavior, mood disorder: Improved Patient had inappropriate behavior which is resolved now. Patient has been hospitalized for similar events in 2015 Consulted psychiatry for further evaluation, who indicated that this is a frontal lobe dementia. Risperdal was discontinued per POA request. Continue Remeron Psychiatry following; states patient does not have decisional capacity. Palliative care following. Son declines hospice. Protein calorie malnutrition: Improving Jevity 1.5 w/ bolus 1.5 cans (360ml) @ 0800, 1100 and 1400 and 1 can (240ml) @ 1700 and 2000. Free Water Flush 100ml before and after each bolus feeding. [employer] Flatbed Truck Driver following. Ensure Enlive tid and chocolate pudding tid. Patient desired to eat and speech therapy advised puree diet, thin liquids, but patient has not been eating. [employer] Flat[employer] Driver suggested considering appetite stimulant. This was discussed with attending, but we do not believe this would be beneficial for patient and would add unnecessary risk to the patient. Will continue with tube feeds only. Hematuria: Resolved. -Patient is not on anticoagulation. -Hemoglobin normal. -Creatinine is normal. -UA 4/5 with innumerable RBCs, but urine sample not grossly bloody. Urinary tract infection, recurrent: Urine culture positive for Proteus mirabilis and GBS on 01/20. Patient completed course of antibiotics. Abdominal pelvis CT 03/06 shows decompressed bladder with circumferential bladder wall thickening and intraluminal air possibly indicating cystitis, but the patient had been afebrile with normal WBC count. Urine culture 05/31 with Serratia marcescens, Pseudomonas, and Enterococcus faecalis. Patient was started on antibiotics. Repeat urine culture on 06/04 only reveals contaminants. Urine culture / with Enterococcus faecalis and Pseudomonas Aeruginosa similar to previous culture on 05/31. Patient remains afebrile. CBC with normal white blood cell count. Continue to change Soto monthly. 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 Monitor and treat only if symptomatic. Mild obstructive uropathy: Resolved. Appreciate urology recommendations. Suprapubic catheter to be changed monthly; last changed 02/04/[address] 03/06/16 shows resolution of right sided hydronephrosis. Upper GI bleeding with recurrent rectal bleeding: Resolved. Hemoglobin stable. GI reevaluated patient on 05/04. Presumed hemorrhoids, s/p Anusol HC for total of 2 weeks. Continue PPI. Hypotension: chronic Blood pressure labile. Continue Midodrine. Patient on max dose. Increase free water flushes as needed. Seborrheic dermatitis: Stable S/p Ketoconazole 2% shampoo, hydrocortisone lotion, and multiple courses of hydrocortisone cream. Continue washing face regularly Chalazion: Nodule R upper eyelid. No evidence of preseptal cellulitis. -Warm compresses were applied but it was greater than 2 weeks without significant improvement. -Ophthalmology was consulted and evaluated patient on 03/26. S/p Tobradex 4 times a day OD x 2 weeks. Patient was intermittently compliant with eyedrops. -No worsening. Follow-up outpatient. Pre-renal azotemia: Improved Continue free water flushes Stage I decubitus ulcer buttocks Continue barrier cream, Mepilex dressings Frequent turning of patient. Candidal infection: buttocks affected with satellite lesions to the perineum. Resolved. -S/p Nystatin and clotrimazole Weakness: Continue physical therapy Nursing staff to get patient up out of bed at least 3 times daily DVT prophylaxis: SCDs. Avoid chemical prophylaxis secondary to GI bleed. Discharge Planning 02/04/17: Son [facility] patient [facility]. Per all [employer] facilities are full. [facility] have been requested to evaluate patient. 02/06/17: requested [facility] to evaluate for placement. Madeline Ortez Feb 20, 2017 11:42
[2017-02-20 20:00] VITALS: BP 107/71; PULSE 74; RESP 20; TEMP 97.2; O2SAT 96
[2017-02-21] MEDS: MIRTAZAPINE 15 MG TAB PEG SCH ×2 (00:15→20:33)
[2017-02-21] MEDS: MIDODRINE 5 MG TAB PEG SCH ×3 (06:29→17:03)
[2017-02-21 08:00] VITALS: BP 112/76; PULSE 89; RESP 18; TEMP 97.3; O2SAT 98
[2017-02-21] MEDS: ALLOPURINOL 100 MG TAB PEG SCH (08:40)
[2017-02-21] MEDS: ACETAMINOPHEN 325 MG TAB PEG PRN (08:40)
[2017-02-21] MEDS: LANSOPRAZOLE SOLUTAB 30 MG TAB PEG SCH (08:40)
--- NOTE | 2017-02-21 08:41 | HHI.PR ---
Subjective Remarks Follow-up for dementia. No acute complaints. Objective Vitals Vital Signs Date Time Temp Pulse Resp B/P (MAP) Pulse Ox O2 Delivery O2 Flow Rate FiO2 02/20/17 20:00 97.2 74 20 107/71 (83) 96 I/O 02/20/17 02/20/17 02/20/17 02/21/17 02/21/17 02/21/17 07:00 15:00 23:00 07:00 15:00 23:00 Intake Total 440 ml 0 ml 440 ml Output Total 550 ml 675 ml 500 ml Balance -110 ml -675 ml -60 ml Intake Oral 0 ml 0 ml Tube Feeding 240 ml 240 ml Other 200 ml 200 ml Output Urine Total 550 ml 675 ml 500 ml # Bowel Movements 3 2 1 Objective Remarks GENERAL: Elderly male in no apparent distress. SKIN: Flaky skin to the face. CARDIOVASCULAR: Regular rate and rhythm. RESPIRATORY: No accessory muscle use. Clear to auscultation bilaterally. Breath sounds decreased over RLL compared to left which is chronic. GASTROINTESTINAL: Abdomen soft, nontender, nondistended. NEURO: Sleeping but arouses. PSYCH: Nods to answer question but does not speak. Procedures None Urinary Catheter: Yes Assessment to: Continue Soto insert reason: Obstruction/Retention Date of Insertion: Feb 04, 2017 Vascular Central Line Catheter: No A/P Assessment and Plan Dementia with inappropriate behavior, mood disorder: Improved Patient had inappropriate behavior which is resolved now. Patient has been hospitalized for similar events in 2015 Consulted psychiatry for further evaluation, who indicated that this is a frontal lobe dementia. Risperdal was discontinued per POA request. Continue Remeron Psychiatry following; states patient does not have decisional capacity. Palliative care following. Son declines hospice. Protein calorie malnutrition: Improving Jevity 1.5 w/ bolus 1.5 cans (360ml) @ 0800, 1100 and 1400 and 1 can (240ml) @ 1700 and 2000. Free Water Flush 100ml before and after each bolus feeding. Kennel Assistant following. Ensure Enlive tid and chocolate pudding tid. Patient desired to eat and speech therapy advised puree diet, thin liquids, but patient has not been eating. Kennel Assistant suggested considering appetite stimulant. This was discussed with attending, but we do not believe this would be beneficial for patient and would add unnecessary risk to the patient. Will continue with tube feeds only. Hematuria: Resolved. -Patient is not on anticoagulation. -Hemoglobin normal. -Creatinine is normal. -UA 4/5 with innumerable RBCs, but urine sample not grossly bloody. Urinary tract infection, recurrent: Urine culture positive for Proteus mirabilis and GBS on 01/20. Patient completed course of antibiotics. Abdominal pelvis CT 03/06 shows decompressed bladder with circumferential bladder wall thickening and intraluminal air possibly indicating cystitis, but the patient had been afebrile with normal WBC count. Urine culture 05/31 with Serratia marcescens, Pseudomonas, and Enterococcus faecalis. Patient was started on antibiotics. Repeat urine culture on 06/04 only reveals contaminants. Urine culture /5 with Enterococcus faecalis and Pseudomonas Aeruginosa similar to previous culture on 05/31. Patient remains afebrile. CBC with normal white blood cell count. Continue to change Soto monthly. 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 Monitor and treat only if symptomatic. Mild obstructive uropathy: Resolved. Appreciate urology recommendations. Suprapubic catheter to be changed monthly; last changed 02/04/[address] 03/06/16 shows resolution of right sided hydronephrosis. Upper GI bleeding with recurrent rectal bleeding: Resolved. Hemoglobin stable. GI reevaluated patient on 05/04. Presumed hemorrhoids, s/p Anusol HC for total of 2 weeks. Continue PPI. Hypotension: chronic Blood pressure labile. Continue Midodrine. Patient on max dose. Increase free water flushes as needed. Seborrheic dermatitis: Stable S/p Ketoconazole 2% shampoo, hydrocortisone lotion, and multiple courses of hydrocortisone cream. Continue washing face regularly Chalazion: Nodule R upper eyelid. No evidence of preseptal cellulitis. -Warm compresses were applied but it was greater than 2 weeks without significant improvement. -Ophthalmology was consulted and evaluated patient on 03/26. S/p Tobradex 4 times a day OD x 2 weeks. Patient was intermittently compliant with eyedrops. -No worsening. Follow-up outpatient. Pre-renal azotemia: Improved Continue free water flushes Stage I decubitus ulcer buttocks Continue barrier cream, Mepilex dressings Frequent turning of patient. Candidal infection: buttocks affected with satellite lesions to the perineum. Resolved. -S/p Nystatin and clotrimazole Weakness: Continue physical therapy Nursing staff to get patient up out of bed at least 3 times daily DVT prophylaxis: SCDs. Avoid chemical prophylaxis secondary to GI bleed. Discharge Planning 02/04/17: Son wants patient [facility]. Per all [employer] facilities are full. [facility] have been requested to evaluate patient. 02/06/17: requested [facility] to evaluate for placement. Madeline Ortez Feb 21, 2017 08:41
[2017-02-21] MEDS: FREE WATER G-TUBE SCH (09:00)
[2017-02-21 20:47] VITALS: BP 123/70; PULSE 73; RESP 18; TEMP 97.6; O2SAT 96
[2017-02-22] MEDS: MIDODRINE 5 MG TAB PEG SCH ×3 (06:12→17:13)
[2017-02-22 08:00] VITALS: BP 99/61; PULSE 73; RESP 18; TEMP 96.6; O2SAT 92
[2017-02-22] MEDS: FREE WATER G-TUBE SCH (09:00)
[2017-02-22] MEDS: ALLOPURINOL 100 MG TAB PEG SCH (09:02)
[2017-02-22] MEDS: LANSOPRAZOLE SOLUTAB 30 MG TAB PEG SCH (09:02)
--- NOTE | 2017-02-22 12:14 | HHI.PR ---
Subjective Remarks Follow up for dementia. Patient sleeping, but nods his head yes, keeping his eyes closed, when I ask him if he is ok. Objective Vitals Vital Signs Date Time Temp Pulse Resp B/P (MAP) Pulse Ox O2 Delivery O2 Flow Rate FiO2 02/22/17 08:00 96.6 73 18 99/61 (74) 92 02/21/17 20:47 97.6 73 18 123/70 (87) 96 I/O 02/21/17 02/21/17 02/21/17 02/22/17 02/22/17 02/22/17 07:00 15:00 23:00 07:00 15:00 23:00 Intake Total 440 ml 0 ml 560 ml Output Total 500 ml 325 ml 350 ml Balance -60 ml -325 ml -350 ml 560 ml Intake Oral 0 ml Tube Feeding 240 ml 360 ml Tube Irrigant 200 ml Other 200 ml Output Urine Total 500 ml 325 ml 350 ml # Bowel Movements 1 0 1 Objective Remarks GENERAL: Elderly male in no apparent distress. SKIN: Flaky skin to the face. CARDIOVASCULAR: Regular rate and rhythm. RESPIRATORY: No accessory muscle use. Clear to auscultation bilaterally. GASTROINTESTINAL: Abdomen soft, nontender, nondistended. NEURO: Appears to be sleeping but nods with eyes closed when asked a question. PSYCH: Does not speak. Procedures None Urinary Catheter: Yes Assessment to: Continue Soto insert reason: Obstruction/Retention Date of Insertion: Feb 04, 2017 Vascular Central Line Catheter: No A/P Assessment and Plan Dementia with inappropriate behavior, mood disorder: Improved Patient had inappropriate behavior which is resolved now. Patient has been hospitalized for similar events in 2015 Consulted psychiatry for further evaluation, who indicated that this is a frontal lobe dementia. Risperdal was discontinued per POA request. Continue Remeron Psychiatry following; states patient does not have decisional capacity. Palliative care following. Son declines hospice. Protein calorie malnutrition: Improving Jevity 1.5 w/ bolus 1.5 cans (360ml) @ 0800, 1100 and 1400 and 1 can (240ml) @ 1700 and 2000. Free Water Flush 100ml before and after each bolus feeding. Customer Service Agent following. Ensure Enlive tid and chocolate pudding tid. Patient desired to eat and speech therapy advised puree diet, thin liquids, but patient has not been eating. Customer Service Agent suggested considering appetite stimulant. This was discussed with attending, but we do not believe this would be beneficial for patient and would add unnecessary risk to the patient. Will continue with tube feeds only. Hematuria: Resolved. -Patient is not on anticoagulation. -Hemoglobin normal. -Creatinine is normal. -UA 4/5 with innumerable RBCs, but urine sample not grossly bloody. Urinary tract infection, recurrent: Urine culture positive for Proteus mirabilis and GBS on 01/20. Patient completed course of antibiotics. Abdominal pelvis CT 03/06 shows decompressed bladder with circumferential bladder wall thickening and intraluminal air possibly indicating cystitis, but the patient had been afebrile with normal WBC count. Urine culture 05/31 with Serratia marcescens, Pseudomonas, and Enterococcus faecalis. Patient was started on antibiotics. Repeat urine culture on 06/04 only reveals contaminants. Urine culture /5 with Enterococcus faecalis and Pseudomonas Aeruginosa similar to previous culture on 05/31. Patient remains afebrile. CBC with normal white blood cell count. Continue to change Soto monthly. 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 Monitor and treat only if symptomatic. Mild obstructive uropathy: Resolved. Appreciate urology recommendations. Suprapubic catheter to be changed monthly; last changed 02/04/[address] 03/06/16 shows resolution of right sided hydronephrosis. Upper GI bleeding with recurrent rectal bleeding: Resolved. Hemoglobin stable. GI reevaluated patient on 05/04. Presumed hemorrhoids, s/p Anusol HC for total of 2 weeks. Continue PPI. Hypotension: chronic Blood pressure labile. Continue Midodrine. Patient on max dose. Increase free water flushes as needed. 02/22: Hypotensive this morning, but MAP intact. Monitor. Seborrheic dermatitis: Stable S/p Ketoconazole 2% shampoo, hydrocortisone lotion, and multiple courses of hydrocortisone cream. Continue washing face regularly Chalazion: Nodule R upper eyelid. No evidence of preseptal cellulitis. -Warm compresses were applied but it was greater than 2 weeks without significant improvement. -Ophthalmology was consulted and evaluated patient on 03/26. S/p Tobradex 4 times a day OD x 2 weeks. Patient was intermittently compliant with eyedrops. -No worsening. Follow-up outpatient. Pre-renal azotemia: Improved Continue free water flushes Stage I decubitus ulcer buttocks Continue barrier cream, Mepilex dressings Frequent turning of patient. Candidal infection: buttocks affected with satellite lesions to the perineum. Resolved. -S/p Nystatin and clotrimazole Weakness: Continue physical therapy Nursing staff to get patient up out of bed at least 3 times daily DVT prophylaxis: SCDs. Avoid chemical prophylaxis secondary to GI bleed. Discharge Planning 02/04/17: Son wants patient on [facility]. Per all [employer] facilities are full. [facility] have been requested to evaluate patient. 02/06/17: requested [facility] to [facility] for [facility]. Madeline Ortez Feb 22, 2017 12:14
[2017-02-22 20:54] VITALS: BP 121/77; PULSE 74; RESP 18; TEMP 98; O2SAT 95
[2017-02-22] MEDS: MIRTAZAPINE 15 MG TAB PEG SCH (22:09)
[2017-02-23] MEDS: MIDODRINE 5 MG TAB PEG SCH ×3 (05:39→17:16)
[2017-02-23 07:50] VITALS: BP 103/66; PULSE 67; RESP 20; TEMP 96.9; O2SAT 97
[2017-02-23] MEDS: ALLOPURINOL 100 MG TAB PEG SCH (08:45)
[2017-02-23] MEDS: FREE WATER G-TUBE SCH (08:45)
[2017-02-23] MEDS: LANSOPRAZOLE SOLUTAB 30 MG TAB PEG SCH (08:45)
--- NOTE | 2017-02-23 08:46 | HHI.PR ---
Subjective Remarks Follow up for dementia. No acute complaints. Objective Vitals Vital Signs Date Time Temp Pulse Resp B/P (MAP) Pulse Ox O2 Delivery O2 Flow Rate FiO2 02/22/17 20:54 98.0 74 18 121/77 (92) 95 I/O 02/22/17 02/22/17 02/22/17 02/23/17 02/23/17 02/23/17 07:00 15:00 23:00 07:00 15:00 23:00 Intake Total 1480 ml 440 ml Output Total 350 ml 250 ml 450 ml Balance -350 ml 1480 ml -250 ml -10 ml Tube Feeding 1080 ml 240 ml Tube Irrigant 400 ml Other 200 ml Output Urine Total 350 ml 250 ml 450 ml # Bowel Movements 1 1 0 2 Objective Remarks GENERAL: Elderly male in no apparent distress sleeping when I enter the room. CARDIOVASCULAR: Regular rate and rhythm. RESPIRATORY: No accessory muscle use. Clear to auscultation bilaterally. GASTROINTESTINAL: Abdomen soft, nontender, nondistended. PSYCH: Does not speak. Calm mood and affect. Procedures None Urinary Catheter: Yes Assessment to: Continue Soto insert reason: Obstruction/Retention Date of Insertion: Feb 04, 2017 Vascular Central Line Catheter: No A/P Assessment and Plan Dementia with inappropriate behavior, mood disorder: Improved Patient had inappropriate behavior which is resolved now. Patient has been hospitalized for similar events in 2015 Consulted psychiatry for further evaluation, who indicated that this is a frontal lobe dementia. Risperdal was discontinued per POA request. Continue Remeron Psychiatry following; states patient does not have decisional capacity. Palliative care following. Son declines hospice. Protein calorie malnutrition: Improving Jevity 1.5 w/ bolus 1.5 cans (360ml) @ 0800, 1100 and 1400 and 1 can (240ml) @ 1700 and 2000. Free Water Flush 100ml before and after each bolus feeding. Bulk Pigment Reducer following. Ensure Enlive tid and chocolate pudding tid. Patient desired to eat and speech therapy advised puree diet, thin liquids, but patient has not been eating. Bulk Pigment Reducer suggested considering appetite stimulant. This was discussed with attending, but we do not believe this would be beneficial for patient and would add unnecessary risk to the patient. Will continue with tube feeds only. Hematuria: Resolved. -Patient is not on anticoagulation. -Hemoglobin normal. -Creatinine is normal. -UA 4/5 with innumerable RBCs, but urine sample not grossly bloody. Urinary tract infection, recurrent: Urine culture positive for Proteus mirabilis and GBS on 01/20. Patient completed course of antibiotics. Abdominal pelvis CT 03/06 shows decompressed bladder with circumferential bladder wall thickening and intraluminal air possibly indicating cystitis, but the patient had been afebrile with normal WBC count. Urine culture 05/31 with Serratia marcescens, Pseudomonas, and Enterococcus faecalis. Patient was started on antibiotics. Repeat urine culture on 06/04 only reveals contaminants. Urine culture 4/5 with Enterococcus faecalis and Pseudomonas Aeruginosa similar to previous culture on 05/31. Patient remains afebrile. CBC with normal white blood cell count. Continue to change Soto monthly. 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 Monitor and treat only if symptomatic. Mild obstructive uropathy: Resolved. Appreciate urology recommendations. Suprapubic catheter to be changed monthly; last changed 02/04/[address] 03/06/16 shows resolution of right sided hydronephrosis. Upper GI bleeding with recurrent rectal bleeding: Resolved. Hemoglobin stable. GI reevaluated patient on 05/04. Presumed hemorrhoids, s/p Anusol HC for total of 2 weeks. Continue PPI. Hypotension: chronic, stable Blood pressure labile. Continue Midodrine. Patient on max dose. Increase free water flushes as needed. Seborrheic dermatitis: Stable S/p Ketoconazole 2% shampoo, hydrocortisone lotion, and multiple courses of hydrocortisone cream. Continue washing face regularly Chalazion: Nodule R upper eyelid. No evidence of preseptal cellulitis. -Warm compresses were applied but it was greater than 2 weeks without significant improvement. -Ophthalmology was consulted and evaluated patient on 03/26. S/p Tobradex 4 times a day OD x 2 weeks. Patient was intermittently compliant with eyedrops. -No worsening. Follow-up outpatient. Pre-renal azotemia: Improved Continue free water flushes Stage I decubitus ulcer buttocks Continue barrier cream, Mepilex dressings Frequent turning of patient. Candidal infection: buttocks affected with satellite lesions to the perineum. Resolved. -S/p Nystatin and clotrimazole Weakness: Continue physical therapy Nursing staff to get patient up out of bed at least 3 times daily DVT prophylaxis: SCDs. Avoid chemical prophylaxis secondary to GI bleed. Discharge Planning 02/04/17: Son wants patient on [place] [facility]. Per CM all [employer] facilities are full. [facility] have been requested to evaluate patient. 02/06/17: CM requested [facility] to evaluate for placement. Madeline Ortez Feb 23, 2017 08:46
[2017-02-23 21:11] VITALS: BP 121/78; PULSE 73; RESP 18; TEMP 98; O2SAT 97
[2017-02-23] MEDS: MIRTAZAPINE 15 MG TAB PEG SCH (21:43)
[2017-02-24] MEDS: MIDODRINE 5 MG TAB PEG SCH ×3 (05:47→17:00)
[2017-02-24] MEDS: LANSOPRAZOLE SOLUTAB 30 MG TAB PEG SCH (08:04)
[2017-02-24] MEDS: ALLOPURINOL 100 MG TAB PEG SCH (08:05)
[2017-02-24] MEDS: FREE WATER G-TUBE SCH (08:07)
[2017-02-24 08:26] VITALS: BP 115/69; PULSE 72; RESP 16; TEMP 96.9; O2SAT 95
--- NOTE | 2017-02-24 09:38 | HHI.PR ---
Subjective Remarks Follow up for dementia. No acute complaints. Objective Vitals Vital Signs Date Time Temp Pulse Resp B/P (MAP) Pulse Ox O2 Delivery O2 Flow Rate FiO2 02/24/17 08:26 96.9 72 16 115/69 (84) 95 02/23/17 21:11 98.0 73 18 121/78 (92) 97 I/O 02/23/17 02/23/17 02/23/17 02/24/17 02/24/17 02/24/17 07:00 15:00 23:00 07:00 15:00 23:00 Intake Total 440 ml 1480 ml 340 ml 440 ml Output Total 450 ml 400 ml Balance -10 ml 1480 ml -60 ml 440 ml Tube Feeding 240 ml 1080 ml 240 ml 240 ml Tube Irrigant 400 ml 100 ml Other 200 ml 200 ml Output Urine Total 450 ml 400 ml # Voids 2 2 # Bowel Movements 2 1 Objective Remarks GENERAL: Elderly male in no apparent distress appears to be sleeping when I enter the room. SKIN: Flaky skin to face. Dried blood on fingernails and gown. Dried blood at base of R naris. CARDIOVASCULAR: Regular rate and rhythm. RESPIRATORY: No accessory muscle use. Clear to auscultation bilaterally. GASTROINTESTINAL: Abdomen soft, nontender, nondistended. NEUROLOGICAL: Arouses to voice. Awake and alert. PSYCH: Does not speak. Calm mood and affect. Procedures None Urinary Catheter: Yes Assessment to: Continue Soto insert reason: Obstruction/Retention Date of Insertion: Feb 04, 2017 Vascular Central Line Catheter: No A/P Assessment and Plan Dementia with inappropriate behavior, mood disorder: Improved Patient had inappropriate behavior which is resolved now. Patient has been hospitalized for similar events in 2015 Consulted psychiatry for further evaluation, who indicated that this is a frontal lobe dementia. Risperdal was discontinued per POA request. Continue Remeron Psychiatry following; states patient does not have decisional capacity. Palliative care following. Son declines hospice. Protein calorie malnutrition: Improving Jevity 1.5 w/ bolus 1.5 cans (360ml) @ 0800, 1100 and 1400 and 1 can (240ml) @ 1700 and 2000. Free Water Flush 100ml before and after each bolus feeding. Master Cosmetologist following. Ensure Enlive tid and chocolate pudding tid. Patient desired to eat and speech therapy advised puree diet, thin liquids, but patient has not been eating. Master Cosmetologist suggested considering appetite stimulant. This was discussed with attending, but we do not believe this would be beneficial for patient and would add unnecessary risk to the patient. Will continue with tube feeds only. Hematuria: Resolved. -Patient is not on anticoagulation. -Hemoglobin normal. -Creatinine is normal. -UA 4/5 with innumerable RBCs, but urine sample not grossly bloody. Urinary tract infection, recurrent: Urine culture positive for Proteus mirabilis and GBS on 01/20. Patient completed course of antibiotics. Abdominal pelvis CT 03/06 shows decompressed bladder with circumferential bladder wall thickening and intraluminal air possibly indicating cystitis, but the patient had been afebrile with normal WBC count. Urine culture 05/31 with Serratia marcescens, Pseudomonas, and Enterococcus faecalis. Patient was started on antibiotics. Repeat urine culture on 06/04 only reveals contaminants. Urine culture 4/5 with Enterococcus faecalis and Pseudomonas Aeruginosa similar to previous culture on 05/31. Patient remains afebrile. CBC with normal white blood cell count. Continue to change Soto monthly. 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 Monitor and treat only if symptomatic. Mild obstructive uropathy: Resolved. Appreciate urology recommendations. Suprapubic catheter to be changed monthly; last changed 02/04/[address] 03/06/16 shows resolution of right sided hydronephrosis. Upper GI bleeding with recurrent rectal bleeding: Resolved. Hemoglobin stable. GI reevaluated patient on 05/04. Presumed hemorrhoids, s/p Anusol HC for total of 2 weeks. Continue PPI. Hypotension: chronic, stable Blood pressure labile. Continue Midodrine. Patient on max dose. Increase free water flushes as needed. Seborrheic dermatitis: Stable S/p Ketoconazole 2% shampoo, hydrocortisone lotion, and multiple courses of hydrocortisone cream. Continue washing face regularly 02/24: Patient has dried blood on himself, likely from scratching face. RN states patient will be bathed. Chalazion: Nodule R upper eyelid. No evidence of preseptal cellulitis. -Warm compresses were applied but it was greater than 2 weeks without significant improvement. -Ophthalmology was consulted and evaluated patient on 03/26. S/p Tobradex 4 times a day OD x 2 weeks. Patient was intermittently compliant with eyedrops. -No worsening. Follow-up outpatient. Pre-renal azotemia: Improved Continue free water flushes Stage I decubitus ulcer buttocks Continue barrier cream, Mepilex dressings Frequent turning of patient. Candidal infection: buttocks affected with satellite lesions to the perineum. Resolved. -S/p Nystatin and clotrimazole Weakness: Continue physical therapy Nursing staff to get patient up out of bed at least 3 times daily DVT prophylaxis: SCDs. Avoid chemical prophylaxis secondary to GI bleed. Discharge Planning 02/04/17: Son wants patient [facility] [place] [facility]. Per all [employer] facilities are full. [facility] have been requested to evaluate patient. 02/06/17: requested [facility] to evaluate for placement. Madeline Ortez Feb 24, 2017 09:38
[2017-02-24 20:00] VITALS: BP 107/72; PULSE 71; RESP 18; TEMP 96.4; O2SAT 96
[2017-02-24] MEDS: MIRTAZAPINE 15 MG TAB PEG SCH (23:22)
[2017-02-25] MEDS: MIDODRINE 5 MG TAB PEG SCH ×3 (06:36→17:00)
[2017-02-25 08:00] VITALS: BP 103/71; PULSE 73; RESP 18; TEMP 98; O2SAT 98
[2017-02-25] MEDS: ALLOPURINOL 100 MG TAB PEG SCH (09:00)
[2017-02-25] MEDS: FREE WATER G-TUBE SCH (09:00)
[2017-02-25] MEDS: LANSOPRAZOLE SOLUTAB 30 MG TAB PEG SCH (09:00)
--- NOTE | 2017-02-25 10:49 | HHI.PR ---
Subjective Remarks Patient seen and examined today for follow-up on profound weakness, dementia. Patient denies any new complaints. No change in clinical status. Awaiting oil field caser discharge planning. Objective Vitals Vital Signs Date Time Temp Pulse Resp B/P (MAP) Pulse Ox O2 Delivery O2 Flow Rate FiO2 02/25/17 08:00 98.0 73 18 103/71 (82) 98 02/24/17 20:00 96.4 71 18 107/72 (84) 96 I/O 02/24/17 02/24/17 02/24/17 02/25/17 02/25/17 02/25/17 07:00 15:00 23:00 07:00 15:00 23:00 Intake Total 440 ml Output Total 950 ml Balance 440 ml -950 ml Tube Feeding 240 ml Other 200 ml Output Urine Total 950 ml # Voids 2 # Bowel Movements 1 1 Objective Remarks GENERAL: Well-developed, well-nourished, in no acute distress. HEENT: Head is normocephalic without any lesions or masses noted. Facial features are symmetric. Eyes: Extraocular muscles are intact. Conjunctivae were clear. NECK: Trachea midline no deviation. CARDIAC: Regular rhythm, regular rate. S1/S2 are heard. No murmurs gallops or rubs. LUNGS: Clear to auscultation bilaterally. No wheeze, rhonchi or rales. No use of accessory muscles on inspiration or expiration. ABDOMEN: Soft, nontender. Nondistended. Bowel sounds heard in all 4 quadrants. No organomegaly or masses. Negative rebound, negative guarding, suprapubic catheter in place, PEG tube in place with no signs of infection, EXTREMITIES: No edema, pulses are equal bilaterally. No cyanosis or clubbing NEUROLOGY: Mood and affect appear appropriate. Cranial nerves II through XII grossly intact. Moving all extremities Procedures None Urinary Catheter: Yes (suprapubic catheter) Assessment to: Continue Soto insert reason: Obstruction/Retention Date of Insertion: Feb 04, 2017 Vascular Central Line Catheter: No A/P Assessment and Plan Weakness: Continue physical therapy, however patient refuses get out of bed majority of the time Nursing staff to get patient up out of bed at least 3 times daily Palliative care requested consult with psychiatry to see if patient has capacity to make decisions. Psychiatry evaluated patient states that he does not have capacity make his own decisions Palliative care discussed with family who is declining transition to comfort care, hospice. Dementia with inappropriate behavior, mood disorder improved Consulted psychiatry for further evaluation, who indicated that this is a frontal lobe dementia Continue Remeron Parkinson's disease: Patient has dementia and resting tremor. Chronic, stable. GI bleed with presenting of Upper GI bleed, patient with intermittent rectal bleeding: Hay Rake Operator consulted and Presumed hemorrhoids, continue Anusol HC as needed Presumed hemorrhoids Follow-up hemoglobin has remained stable Continue PPI. Protein calorie malnutrition: Improving PEG tube replaced 11/20/16 Consulted dietitian who indicated that patient may be converted to bolus feeding Jevity 1.5, 1.5, 360ml(1.5 cans)@ 0800, 1100, 1400 and 240ml(1-can)@ 1700 and 2000 Ensure Enlive 3 times a day since pudding 3 times a day Prealbumin level 25 Hypotension with episodes of hypertension: Stable Continue monitor blood pressure Continue Midodrine. obstructive uropathy: Resolved. With recurrent urinary tract infections. Treat only if symptomatic Suprapubic catheter in place, changed monthly, last changed 02/04/17 Seborrhea dermatitis, recurrent Counseled nursing staff on proper hygiene to avoid recurrence Responds well to Hydrocortisone cream. Continue to use when active DVT prophylaxis: Sequential compression devices Avoid chemical prophylaxis secondary to intermittent rectal bleeding Records reviewed, no change in treatment plan. Awaiting case management for discharge planning. Discharge Planning Discharge planning per case management. Jaguar Walker Feb 25, 2017 10:49
[2017-02-25 20:00] VITALS: BP 121/82; PULSE 78; RESP 20; TEMP 97.9; O2SAT 96
[2017-02-25] MEDS: MIRTAZAPINE 15 MG TAB PEG SCH (21:20)
[2017-02-26] MEDS: MIDODRINE 5 MG TAB PEG SCH ×3 (06:09→17:00)
[2017-02-26 07:50] VITALS: BP 129/91; PULSE 74; RESP 20; TEMP 96.6; O2SAT 98
[2017-02-26] MEDS: FREE WATER G-TUBE SCH (09:00)
--- NOTE | 2017-02-26 10:00 | HHI.PR ---
Subjective Remarks Patient seen and examined today for follow-up on weakness, dementia. Patient denies any new complaints. No change in clinical status. Objective Vitals Vital Signs Date Time Temp Pulse Resp B/P (MAP) Pulse Ox O2 Delivery O2 Flow Rate FiO2 02/26/17 07:50 96.6 74 20 129/91 (104) 98 02/25/17 20:00 97.9 78 20 121/82 (95) 96 I/O 02/25/17 02/25/17 02/25/17 02/26/17 02/26/17 02/26/17 07:00 15:00 23:00 07:00 15:00 23:00 Intake Total 0 ml Output Total 950 ml 750 ml 225 ml Balance -950 ml -750 ml -225 ml Intake Oral 0 ml Output Urine Total 950 ml 750 ml 225 ml # Voids 3 # Bowel Movements 1 1 1 Objective Remarks GENERAL: Well-developed, well-nourished, in no acute distress. HEENT: Head is normocephalic without any lesions or masses noted. Facial features are symmetric. Eyes: Extraocular muscles are intact. Conjunctivae were clear. NECK: Trachea midline no deviation. CARDIAC: Regular rhythm, regular rate. S1/S2 are heard. No murmurs gallops or rubs. LUNGS: Clear to auscultation bilaterally. No wheeze, rhonchi or rales. No use of accessory muscles on inspiration or expiration. ABDOMEN: Soft, nontender. Nondistended. Bowel sounds heard in all 4 quadrants. No organomegaly or masses. Negative rebound, negative guarding, suprapubic catheter in place, PEG tube in place with no signs of infection, EXTREMITIES: No edema, pulses are equal bilaterally. No cyanosis or clubbing NEUROLOGY: Mood and affect appear appropriate. Cranial nerves II through XII grossly intact. Moving all extremities Procedures None Urinary Catheter: Yes (suprapubic catheter) Assessment to: Continue Soto insert reason: Obstruction/Retention Date of Insertion: Feb 04, 2017 Vascular Central Line Catheter: No A/P Assessment and Plan Weakness: Continue physical therapy, however patient refuses get out of bed majority of the time Nursing staff to get patient up out of bed at least 3 times daily Palliative care requested consult with psychiatry to see if patient has capacity to make decisions. Psychiatry evaluated patient states that he does not have capacity make his own decisions Palliative care discussed with family who is declining transition to comfort care, hospice. Dementia with inappropriate behavior, mood disorder improved Consulted psychiatry for further evaluation, who indicated that this is a frontal lobe dementia Continue Remeron Parkinson's disease: Patient has dementia and resting tremor. Chronic, stable. GI bleed with presenting of Upper GI bleed, patient with intermittent rectal bleeding: Tie Loader consulted and Presumed hemorrhoids, continue Anusol HC as needed Presumed hemorrhoids Follow-up hemoglobin has remained stable Continue PPI. Protein calorie malnutrition: Improving PEG tube replaced 11/20/16 Consulted dietitian who indicated that patient may be converted to bolus feeding Jevity 1.5, 1.5, 360ml(1.5 cans)@ 0800, 1100, 1400 and 240ml(1-can)@ 1700 and 2000 Ensure Enlive 3 times a day since pudding 3 times a day Prealbumin level 25 Hypotension with episodes of hypertension: Stable Continue monitor blood pressure Continue Midodrine. obstructive uropathy: Resolved. With recurrent urinary tract infections. Treat only if symptomatic Suprapubic catheter in place, changed monthly, last changed 02/04/17 Seborrhea dermatitis, recurrent Counseled nursing staff on proper hygiene to avoid recurrence Responds well to Hydrocortisone cream. Continue to use when active DVT prophylaxis: Sequential compression devices Avoid chemical prophylaxis secondary to intermittent rectal bleeding Records reviewed, Awaiting case management for discharge planning. no change in treatment plan. Discharge Planning Discharge planning per case management. Jaguar Walker Feb 26, 2017 10:00
[2017-02-26] MEDS: ALLOPURINOL 100 MG TAB PEG SCH (10:33)
[2017-02-26] MEDS: LANSOPRAZOLE SOLUTAB 30 MG TAB PEG SCH (10:33)
[2017-02-26 20:00] VITALS: BP 106/68; PULSE 72; RESP 21; TEMP 97.1; O2SAT 94
[2017-02-26] MEDS: MIRTAZAPINE 15 MG TAB PEG SCH (21:48)
[2017-02-27] MEDS: MIDODRINE 5 MG TAB PEG SCH ×3 (06:13→17:00)
[2017-02-27 08:00] VITALS: BP 120/69; PULSE 83; RESP 20; TEMP 98.9; O2SAT 93
--- NOTE | 2017-02-27 08:31 | HHI.PR ---
Subjective Remarks Patient seen and examined today for follow-up on profound weakness. Patient denies any new complaints. No change in clinical status. Objective Vitals Vital Signs Date Time Temp Pulse Resp B/P (MAP) Pulse Ox O2 Delivery O2 Flow Rate FiO2 02/26/17 20:00 97.1 72 21 106/68 (81) 94 I/O 02/26/17 02/26/17 02/26/17 02/27/17 02/27/17 02/27/17 07:00 15:00 23:00 07:00 15:00 23:00 Intake Total 0 ml 440 ml 0 ml Output Total 225 ml 400 ml 700 ml Balance -225 ml 40 ml -700 ml Intake Oral 0 ml 0 ml Tube Feeding 240 ml Other 200 ml Output Urine Total 225 ml 400 ml 700 ml # Bowel Movements 1 2 4 Objective Remarks GENERAL: Well-developed, well-nourished, in no acute distress. HEENT: Head is normocephalic without any lesions or masses noted. Facial features are symmetric. Eyes: Extraocular muscles are intact. Conjunctivae were clear. NECK: Trachea midline no deviation. CARDIAC: Regular rhythm, regular rate. S1/S2 are heard. No murmurs gallops or rubs. LUNGS: Clear to auscultation bilaterally. No wheeze, rhonchi or rales. No use of accessory muscles on inspiration or expiration. ABDOMEN: Soft, nontender. Nondistended. Bowel sounds heard in all 4 quadrants. No organomegaly or masses. Negative rebound, negative guarding, suprapubic catheter in place, PEG tube in place with no signs of infection, EXTREMITIES: No edema, pulses are equal bilaterally. No cyanosis or clubbing NEUROLOGY: Mood and affect appear appropriate. Cranial nerves II through XII grossly intact. Moving all extremities Procedures None Urinary Catheter: Yes (suprapubic catheter) Assessment to: Continue Soto insert reason: Obstruction/Retention Date of Insertion: Feb 04, 2017 Vascular Central Line Catheter: No A/P Assessment and Plan Weakness: Continue physical therapy, however patient refuses get out of bed majority of the time Nursing staff to get patient up out of bed at least 3 times daily Palliative care requested consult with psychiatry to see if patient has capacity to make decisions. Psychiatry evaluated patient states that he does not have capacity make his own decisions Palliative care discussed with family who is declining transition to comfort care, hospice. Dementia with inappropriate behavior, mood disorder improved Consulted psychiatry for further evaluation, who indicated that this is a frontal lobe dementia Continue Remeron Parkinson's disease: Patient has dementia and resting tremor. Chronic, stable. GI bleed with presenting of Upper GI bleed, patient with intermittent rectal bleeding: Sap Functional Analyst consulted and Presumed hemorrhoids, continue Anusol HC as needed Presumed hemorrhoids Follow-up hemoglobin has remained stable Continue PPI. Protein calorie malnutrition: Improving PEG tube replaced 11/20/16 Consulted dietitian who indicated that patient may be converted to bolus feeding Jevity 1.5, 1.5, 360ml(1.5 cans)@ 0800, 1100, 1400 and 240ml(1-can)@ 1700 and 2000 Ensure Enlive 3 times a day since pudding 3 times a day Prealbumin level 25 Hypotension with episodes of hypertension: Stable Continue monitor blood pressure Continue Midodrine. obstructive uropathy: Resolved. With recurrent urinary tract infections. Treat only if symptomatic Suprapubic catheter in place, changed monthly, last changed 02/04/17 Seborrhea dermatitis, recurrent Counseled nursing staff on proper hygiene to avoid recurrence Responds well to Hydrocortisone cream. Continue to use when active DVT prophylaxis: Sequential compression devices Avoid chemical prophylaxis secondary to intermittent rectal bleeding Records reviewed, no change in treatment plan. Awaiting case management for discharge planning. Discharge Planning Discharge planning per case management. Jaguar Walker Feb 27, 2017 08:31
[2017-02-27] MEDS: FREE WATER G-TUBE SCH (09:00)
[2017-02-27] MEDS: ALLOPURINOL 100 MG TAB PEG SCH (11:06)
[2017-02-27] MEDS: LANSOPRAZOLE SOLUTAB 30 MG TAB PEG SCH (11:06)
--- NOTE | 2017-02-27 15:34 | HHI.HCPN ---
Reason for visit a. To assist with evaluation and management of symptoms including:pain and debility b. To assist medical decision maker(s) with: better understanding of current medical conditions; weighing benefits/burdens of medical treatment options; making medical treatment decisions. (Gilma Goode) Subjective/Interval History Patient seen and examined today, follow up for goals of care, no family at bedside, PT at bedside who often works with the patient and knows him well, assisted with facilitating communication with the patient. Patient closes eyes during exam and refuses to open eyes for most of the conversation. The patient does nod his head yes or no to questions, he is able to confirm place as well as his date through a series of questions. He denies any pain or shortness of breath. Discussed code status with patient, when asked if he would want CPR or to be sustained on mechanical ventilation he shrugs his shoulders in an "I don't know manner". Patient has been an ongoing placement issue, attempted to contact patient's son Orlando Edmond, voicemail left and Palliative contact information provided in order to further discuss goals of care. Family/friend interactions Attempted to contact patient's son Orlando Edmond, voicemail left and Palliative contact information provided in order to further discuss goals of care. (Gilma Goode) Advance Directives Durable Power of Vice President Of Sales: Copy in medical record (Gilma Goode) Objective Vital Signs Date Time Temp Pulse Resp B/P (MAP) Pulse Ox O2 Delivery O2 Flow Rate FiO2 02/27/17 08:00 98.9 83 20 120/69 (86) 93 02/26/17 20:00 97.1 72 21 106/68 (81) 94 Intake & Output 02/27/17 02/27/17 07:00 19:00 Intake Total 440 ml Output Total 700 ml Balance -260 ml Intake Oral 0 ml Tube Feeding 240 ml Other 200 ml Output Urine Total 700 ml # Bowel Movements 4 . Physical Exam CONSTITUTIONAL/GENERAL: This is a a frail thin gentleman, eyes closed during the majority of exam, interacts with yes or no answers by nodding head, nonverbal refusing to speak TUBES/LINES/DRAINS: PEG tube SKIN: Seborrheic dermatitis on face. No wounds seen anteriorly. Skin temperature appropriate. Not diaphoretic. HEAD: Atraumatic. Normocephalic. EYES: Briefly opens eyes during exam, closed tightly shut through majority of exam. ENT: Hearing grossly normal. Nose without bleeding or purulent drainage. NECK: Trachea midline. Supple, nontender. CARDIOVASCULAR: Regular rate and rhythm without murmurs, gallops, or rubs. No JVD. Peripheral pulses symmetric. RESPIRATORY/CHEST: Symmetric, unlabored respirations. Clear to auscultation. Breath sounds equal bilaterally. No wheezes, rales, or rhonchi. GASTROINTESTINAL: Abdomen soft, non-tender, nondistended. No guarding. Bowel sounds present. Peg tube in place GENITOURINARY: Without palpable bladder distension. Suprapubic catheter draining job urine. MUSCULOSKELETAL: Extremities without clubbing, cyanosis, or edema. No mottling or clubbing. NEUROLOGICAL: Awake and alert. Oriented to person and place. Moves all extremities. Resting tremors present. PSYCHIATRIC: Unable to assess secondary to patient's limited participation in exam, refusal to speak. (Gilma Goode) Assessment and Plan Disease Oriented Problem List: (1) Frontotemporal dementia with behavioral disturbance (2) Dementia with behavioral disturbance (3) Protein-calorie malnutrition, mild (4) Essential tremor Symptom Scale: (1) Anxiety 0-10 Scale: Unable to quantify Comment: from dementia Pertinent Non-Medical Issues Psychosocial: Originally from [facility]. Moved to [place] and bought property. 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 Legal: None known. Ethical issues impacting care: None known. Important Contacts POAZena Orlando Edmond Prognosis 76 year old functionally declined rapidly 1 year ago, with hallucinations, agitations, diagnosed with frontal temporal dementia, on feeding tube and supra pubic catheter. At risk for mutliple agitation, infections. His prognosis however with continue tube feedings probably would probably be greater than 6 months, Albumin is 3.2, and probably not hospice appropriate if tube feedings at the current time. No bed sores. If family however would transition patient to comfort measures only, meaning no further hospitalization, abx, or tube feedings, he would be hospice appropriate. Code Status: Full Code Plan * CODE STATUS: FULL CODE. * Legal decision maker: Patient is currently lacks the insight and judgment to make his own medical decisions. Patient's son Orlando Edmond is his designated POA. * GOALS: In the past patient's son/POA has had aggressive goals of care, reaching the patient's son to discuss GOC/placement has been an ongoing issue per case management notes throughout this hospitalization. Placement for the patient has been an ongoing issue secondary to psychiatric/behavioral issues as well as the son's resistance to choosing/finding a facility he is agreeable with. Voicemail left for patient's son Orlando Edmond to again visit GOC conversation awaiting return phone call. * SYMPTOM MANAGEMENT: * ==pain: Per nursing documentation utilizing a nonverbal pain scale patient has been free of pain. Currently acetaminophen 650mg PRN for pain or temp is ordered, last dose administered on 02/21/17 @ 0840. No recommendations at this time. * ==debility: Secondary to clinical condition, refusal to participate, necessity for full assistance for transfers. PT working with patient and following. No recommendations at this time. * Palliative care will continue to follow during hospital course as condition evolves, to assist patient/family/decision-maker with understanding of medical conditions, weighing benefit/burdens of treatment options, for clarification of goals of treatment. Additionally will assist with symptoms of palliative concern. (Gilma Goode) Attestation To help prompt me to consider important information that might be impacting today's encounter and assessment, information from prior notes written by myself or my colleagues may have been "brought forward" into today's note. My signature on this note, however, is an attestation that I personally performed the exam, history, and/or decision-making noted today, and, unless otherwise indicated, the interactions with patient, family, and staff as well as the review of records all occurred today. I also attest that the listed assessment and stated plan reflect my best clinical judgment today based on the combination of historical information, prior notes, and today's exam/ interactions. When time spent is documented, it refers only to time spent today by the signer, or if indicated, combined time spent today by collaborating physician/nurse practitioner. (Gilma Goode) Collaborating MD Comments Chart reviewed. Case discussed with palliative care COREMAKER BENCH. Above CHEO note reviewed and I concur. . (Hever Pederson MD) Gilma Goode Feb 27, 2017 15:34 Hever Pederson MD Feb 27, 2017 17:41
[2017-02-27 20:00] VITALS: BP 100/74; PULSE 73; RESP 20; TEMP 96.3; O2SAT 97
[2017-02-27] MEDS: MIRTAZAPINE 15 MG TAB PEG SCH (20:34)
[2017-02-28] MEDS: MIDODRINE 5 MG TAB PEG SCH ×3 (05:18→17:44)
[2017-02-28 08:07] VITALS: BP 108/74; PULSE 81; RESP 19; TEMP 97.5; O2SAT 94
[2017-02-28] MEDS: FREE WATER G-TUBE SCH (08:21)
[2017-02-28] MEDS: ALLOPURINOL 100 MG TAB PEG SCH (08:22)
[2017-02-28] MEDS: LANSOPRAZOLE SOLUTAB 30 MG TAB PEG SCH (08:22)
--- NOTE | 2017-02-28 10:57 | HHI.PR ---
Subjective Remarks Patient seen and examined today for follow-up on profound weakness, dementia. Patient denies any new complaints. No change in clinical status. Objective Vitals Vital Signs Date Time Temp Pulse Resp B/P (MAP) Pulse Ox O2 Delivery O2 Flow Rate FiO2 02/28/17 08:07 97.5 81 19 108/74 (85) 94 02/27/17 20:00 96.3 73 20 100/74 (83) 97 I/O 02/27/17 02/27/17 02/27/17 02/28/17 02/28/17 02/28/17 07:00 15:00 23:00 07:00 15:00 23:00 Intake Total 0 ml 0 ml 490 ml Output Total 700 ml 550 ml 200 ml Balance -700 ml -550 ml 290 ml Intake Oral 0 ml 0 ml 0 ml Tube Feeding 240 ml Other 250 ml Output Urine Total 700 ml 550 ml 200 ml # Bowel Movements 4 6 4 Objective Remarks GENERAL: Well-developed, well-nourished, in no acute distress. HEENT: Head is normocephalic without any lesions or masses noted. Facial features are symmetric. Eyes: Extraocular muscles are intact. Conjunctivae were clear. NECK: Trachea midline no deviation. CARDIAC: Regular rhythm, regular rate. S1/S2 are heard. No murmurs gallops or rubs. LUNGS: Clear to auscultation bilaterally. No wheeze, rhonchi or rales. No use of accessory muscles on inspiration or expiration. ABDOMEN: Soft, nontender. Nondistended. Bowel sounds heard in all 4 quadrants. No organomegaly or masses. Negative rebound, negative guarding, suprapubic catheter in place, PEG tube in place with no signs of infection, EXTREMITIES: No edema, pulses are equal bilaterally. No cyanosis or clubbing NEUROLOGY: Mood and affect appear appropriate. Cranial nerves II through XII grossly intact. Moving all extremities Procedures None Urinary Catheter: Yes (suprapubic catheter) Assessment to: Continue Soto insert reason: Obstruction/Retention Date of Insertion: Feb 04, 2017 Vascular Central Line Catheter: No A/P Assessment and Plan Weakness: Continue physical therapy, however patient refuses get out of bed majority of the time Nursing staff to get patient up out of bed at least 3 times daily Palliative care requested consult with psychiatry to see if patient has capacity to make decisions. Psychiatry evaluated patient states that he does not have capacity make his own decisions Palliative care discussed with family who is declining transition to comfort care, hospice. Dementia with inappropriate behavior, mood disorder improved Consulted psychiatry for further evaluation, who indicated that this is a frontal lobe dementia Continue Remeron Parkinson's disease: Patient has dementia and resting tremor. Chronic, stable. GI bleed with presenting of Upper GI bleed, patient with intermittent rectal bleeding: Drapery Hanger consulted and Presumed hemorrhoids, continue Anusol HC as needed Presumed hemorrhoids Follow-up hemoglobin has remained stable Continue PPI. Protein calorie malnutrition: Improving PEG tube replaced 11/20/16 Consulted dietitian who indicated that patient may be converted to bolus feeding Jevity 1.5, 1.5, 360ml(1.5 cans)@ 0800, 1100, 1400 and 240ml(1-can)@ 1700 and 2000 Ensure Enlive 3 times a day since pudding 3 times a day Prealbumin level 25 Hypotension with episodes of hypertension: Stable Continue monitor blood pressure Continue Midodrine. obstructive uropathy: Resolved. With recurrent urinary tract infections. Treat only if symptomatic Suprapubic catheter in place, changed monthly, last changed 02/04/17 Seborrhea dermatitis, recurrent Counseled nursing staff on proper hygiene to avoid recurrence Responds well to Hydrocortisone cream. Continue to use when active DVT prophylaxis: Sequential compression devices Avoid chemical prophylaxis secondary to intermittent rectal bleeding Records reviewed, Awaiting case management for discharge planning. no change in treatment plan. Discharge Planning Discharge planning per case management. Jaguar Walker Feb 28, 2017 10:57
[2017-02-28 20:00] VITALS: BP 89/59; PULSE 90; RESP 16; TEMP 96.9; O2SAT 94
[2017-02-28] MEDS: MIRTAZAPINE 15 MG TAB PEG SCH (22:13)
[2017-03-01] MEDS: MIDODRINE 5 MG TAB PEG SCH ×3 (05:47→15:56)
[2017-03-01 08:00] VITALS: BP 112/56; PULSE 73; RESP 18; TEMP 97.6; O2SAT 95
[2017-03-01] MEDS: FREE WATER G-TUBE SCH (08:29)
[2017-03-01] MEDS: ALLOPURINOL 100 MG TAB PEG SCH (08:29)
[2017-03-01] MEDS: LANSOPRAZOLE SOLUTAB 30 MG TAB PEG SCH (08:29)
--- NOTE | 2017-03-01 09:27 | HHI.PR ---
Subjective Remarks Patient seen and examined today for follow-up on profound weakness, dementia. Patient denies any new complaints. No change in clinical status. Awaiting case management discharge planning. Called [employer] for peer to peer, left masses to call back my cell phone. Still have not heard back from them at this time. Objective Vitals Vital Signs Date Time Temp Pulse Resp B/P (MAP) Pulse Ox O2 Delivery O2 Flow Rate FiO2 03/01/17 08:00 97.6 73 18 112/56 (74) 95 02/28/17 20:00 96.9 90 16 89/59 (69) 94 I/O 02/28/17 02/28/17 02/28/17 03/01/17 03/01/17 03/01/17 07:00 15:00 23:00 07:00 15:00 23:00 Intake Total 490 ml 1680 ml 560 ml 340 ml Output Total 200 ml 500 ml Balance 290 ml 1680 ml 560 ml -160 ml Intake Oral 0 ml Tube Feeding 240 ml 1080 ml 360 ml 240 ml Other 250 ml 600 ml 200 ml 100 ml Output Urine Total 200 ml 500 ml # Bowel Movements 4 2 Objective Remarks GENERAL: Well-developed, well-nourished, in no acute distress. HEENT: Head is normocephalic without any lesions or masses noted. Facial features are symmetric. Eyes: Extraocular muscles are intact. Conjunctivae were clear. NECK: Trachea midline no deviation. CARDIAC: Regular rhythm, regular rate. S1/S2 are heard. No murmurs gallops or rubs. LUNGS: Clear to auscultation bilaterally. No wheeze, rhonchi or rales. No use of accessory muscles on inspiration or expiration. ABDOMEN: Soft, nontender. Nondistended. Bowel sounds heard in all 4 quadrants. No organomegaly or masses. Negative rebound, negative guarding, suprapubic catheter in place, PEG tube in place with no signs of infection, EXTREMITIES: No edema, pulses are equal bilaterally. No cyanosis or clubbing NEUROLOGY: Mood and affect appear appropriate. Cranial nerves II through XII grossly intact. Moving all extremities Procedures None Urinary Catheter: Yes (suprapubic catheter) Assessment to: Continue Soto insert reason: Obstruction/Retention Date of Insertion: Feb 04, 2017 Vascular Central Line Catheter: No A/P Assessment and Plan Weakness: Continue physical therapy, however patient refuses get out of bed majority of the time Nursing staff to get patient up out of bed at least 3 times daily Palliative care requested consult with psychiatry to see if patient has capacity to make decisions. Psychiatry evaluated patient states that he does not have capacity make his own decisions Palliative care discussed with family who is declining transition to comfort care, hospice. Dementia with inappropriate behavior, mood disorder improved Consulted psychiatry for further evaluation, who indicated that this is a frontal lobe dementia Continue Remeron Parkinson's disease: Patient has dementia and resting tremor. Chronic, stable. GI bleed with presenting of Upper GI bleed, patient with intermittent rectal bleeding: Negative Turner consulted and Presumed hemorrhoids, continue Anusol HC as needed Presumed hemorrhoids Follow-up hemoglobin has remained stable Continue PPI. Protein calorie malnutrition: Improving PEG tube replaced 11/20/16 Consulted dietitian who indicated that patient may be converted to bolus feeding Jevity 1.5, 1.5, 360ml(1.5 cans)@ 0800, 1100, 1400 and 240ml(1-can)@ 1700 and 2000 Ensure Enlive 3 times a day since pudding 3 times a day Prealbumin level 25 Hypotension with episodes of hypertension: Stable Continue monitor blood pressure Continue Midodrine. obstructive uropathy: Resolved. With recurrent urinary tract infections. Treat only if symptomatic Suprapubic catheter in place, changed monthly, last changed 02/04/17 Seborrhea dermatitis, recurrent Counseled nursing staff on proper hygiene to avoid recurrence Responds well to Hydrocortisone cream. Continue to use when active DVT prophylaxis: Sequential compression devices Avoid chemical prophylaxis secondary to intermittent rectal bleeding Records reviewed, no change in treatment plan. Awaiting case management for discharge planning. Discharge Planning Discharge planning per case management. Jaguar Walker Mar 01, 2017 09:27
[2017-03-01 20:02] VITALS: BP 118/73; PULSE 80; RESP 16; TEMP 98.3; O2SAT 98
[2017-03-01] MEDS: MIRTAZAPINE 15 MG TAB PEG SCH (20:16)
[2017-03-02] MEDS: MIDODRINE 5 MG TAB PEG SCH ×3 (06:04→17:33)
[2017-03-02 08:00] VITALS: BP 119/70; PULSE 68; RESP 18; TEMP 98.5; O2SAT 95
[2017-03-02] MEDS: FREE WATER G-TUBE SCH (08:43)
[2017-03-02] MEDS: LANSOPRAZOLE SOLUTAB 30 MG TAB PEG SCH (08:43)
[2017-03-02] MEDS: ALLOPURINOL 100 MG TAB PEG SCH (08:49)
--- NOTE | 2017-03-02 09:48 | HHI.PR ---
Subjective Remarks Patient seen and examined today for follow-up on profound weakness, dementia. Does not indicate any new complaints. No change in clinical status. Objective Vitals Vital Signs Date Time Temp Pulse Resp B/P (MAP) Pulse Ox O2 Delivery O2 Flow Rate FiO2 03/02/17 08:00 98.5 68 18 119/70 (86) 95 03/01/17 20:02 98.3 80 16 118/73 (88) 98 I/O 03/01/17 03/01/17 03/01/17 03/02/17 03/02/17 03/02/17 07:00 15:00 23:00 07:00 15:00 23:00 Intake Total 340 ml 2120 ml 120 ml Output Total 500 ml 450 ml 450 ml Balance -160 ml 1670 ml 120 ml -450 ml Tube Feeding 240 ml 1320 ml Other 100 ml 800 ml 120 ml Output Urine Total 500 ml 450 ml 450 ml # Bowel Movements 2 0 1 5 Objective Remarks GENERAL: Well-developed, well-nourished, in no acute distress. HEENT: Head is normocephalic without any lesions or masses noted. Facial features are symmetric. Eyes: Extraocular muscles are intact. Conjunctivae were clear. NECK: Trachea midline no deviation. CARDIAC: Regular rhythm, regular rate. S1/S2 are heard. No murmurs gallops or rubs. LUNGS: Clear to auscultation bilaterally. No wheeze, rhonchi or rales. No use of accessory muscles on inspiration or expiration. ABDOMEN: Soft, nontender. Nondistended. Bowel sounds heard in all 4 quadrants. No organomegaly or masses. Negative rebound, negative guarding, suprapubic catheter in place, PEG tube in place with no signs of infection, EXTREMITIES: No edema, pulses are equal bilaterally. No cyanosis or clubbing NEUROLOGY: Mood and affect appear appropriate. Cranial nerves II through XII grossly intact. Moving all extremities Procedures None Urinary Catheter: Yes (suprapubic catheter) Assessment to: Continue Soto insert reason: Obstruction/Retention Date of Insertion: Feb 04, 2017 A/P Assessment and Plan Weakness: Continue physical therapy, however patient refuses get out of bed majority of the time Nursing staff to get patient up out of bed at least 3 times daily Palliative care requested consult with psychiatry to see if patient has capacity to make decisions. Psychiatry evaluated patient states that he does not have capacity make his own decisions Palliative care discussed with family who is declining transition to comfort care, hospice. Dementia with inappropriate behavior, mood disorder improved Consulted psychiatry for further evaluation, who indicated that this is a frontal lobe dementia Continue Remeron Parkinson's disease: Patient has dementia and resting tremor. Chronic, stable. GI bleed with presenting of Upper GI bleed, patient with intermittent rectal bleeding: Supervisor Felting consulted and Presumed hemorrhoids, continue Anusol HC as needed Presumed hemorrhoids Follow-up hemoglobin has remained stable Continue PPI. Protein calorie malnutrition: Improving PEG tube replaced 11/20/16 Consulted dietitian who indicated that patient may be converted to bolus feeding Jevity 1.5, 1.5, 360ml(1.5 cans)@ 0800, 1100, 1400 and 240ml(1-can)@ 1700 and 2000 Ensure Enlive 3 times a day since pudding 3 times a day Prealbumin level 25 Hypotension with episodes of hypertension: Stable Continue monitor blood pressure Continue Midodrine. obstructive uropathy: Resolved. With recurrent urinary tract infections. Treat only if symptomatic Suprapubic catheter in place, changed monthly, last changed 02/04/17 Seborrhea dermatitis, recurrent Counseled nursing staff on proper hygiene to avoid recurrence Responds well to Hydrocortisone cream. Continue to use when active DVT prophylaxis: Sequential compression devices Avoid chemical prophylaxis secondary to intermittent rectal bleeding Records reviewed, Awaiting case management for discharge planning. no change in treatment plan. Discharge Planning Discharge planning per case management. Jaguar Walker Mar 02, 2017 09:48
[2017-03-02 21:46] VITALS: BP 125/76; PULSE 69; RESP 18; TEMP 97.8; O2SAT 99
[2017-03-03] MEDS: MIDODRINE 5 MG TAB PEG SCH ×3 (06:00→17:24)
[2017-03-03 08:00] VITALS: BP 113/68; PULSE 65; RESP 16; TEMP 95.6; O2SAT 97
[2017-03-03] MEDS: FREE WATER G-TUBE SCH (09:00)
[2017-03-03] MEDS: LANSOPRAZOLE SOLUTAB 30 MG TAB PEG SCH (09:30)
[2017-03-03] MEDS: ALLOPURINOL 100 MG TAB PEG SCH (09:30)
--- NOTE | 2017-03-03 09:45 | HHI.PR ---
Subjective Remarks Patient sitting examined today for follow-up on weakness, dementia. Discussed with family yesterday. They indicate that they do not want any type of anti- depression, anxiety, antipsychotic medications given to his father. Patient denies any new complaints today. No change in clinical status Objective Vitals Vital Signs Date Time Temp Pulse Resp B/P (MAP) Pulse Ox O2 Delivery O2 Flow Rate FiO2 03/02/17 21:46 97.8 69 18 125/76 (92) 99 I/O 03/02/17 03/02/17 03/02/17 03/03/17 03/03/17 03/03/17 07:00 15:00 23:00 07:00 15:00 23:00 Intake Total 120 ml 1120 ml 490 ml Output Total 925 ml 450 ml Balance 120 ml 195 ml 490 ml -450 ml Intake Oral 0 ml Tube Feeding 720 ml 240 ml Other 120 ml 400 ml 250 ml Output Urine Total 925 ml 450 ml # Bowel Movements 7 1 5 Objective Remarks GENERAL: Well-developed, well-nourished, in no acute distress. HEENT: Head is normocephalic without any lesions or masses noted. Facial features are symmetric. Eyes: Extraocular muscles are intact. Conjunctivae were clear. NECK: Trachea midline no deviation. CARDIAC: Regular rhythm, regular rate. S1/S2 are heard. No murmurs gallops or rubs. LUNGS: Clear to auscultation bilaterally. No wheeze, rhonchi or rales. No use of accessory muscles on inspiration or expiration. ABDOMEN: Soft, nontender. Nondistended. Bowel sounds heard in all 4 quadrants. No organomegaly or masses. Negative rebound, negative guarding, suprapubic catheter in place, PEG tube in place with no signs of infection, EXTREMITIES: No edema, pulses are equal bilaterally. No cyanosis or clubbing NEUROLOGY: Mood and affect appear appropriate. Cranial nerves II through XII grossly intact. Moving all extremities Procedures None Urinary Catheter: Yes (suprapubic catheter) Assessment to: Continue Date of Insertion: Feb 04, 2017 Vascular Central Line Catheter: No A/P Assessment and Plan Weakness: Continue physical therapy, however patient refuses get out of bed majority of the time Nursing staff to get patient up out of bed at least 3 times daily Palliative care requested consult with psychiatry to see if patient has capacity to make decisions. Psychiatry evaluated patient states that he does not have capacity make his own decisions Palliative care discussed with family who is declining transition to comfort care, hospice. Dementia with inappropriate behavior, mood disorder improved Consulted psychiatry for further evaluation, who indicated that this is a frontal lobe dementia Discontinued Remeron Family states that he does not want his father receiving any antidepressants , antianxiety, antipsychotic medications Parkinson's disease: Patient has dementia and resting tremor. Chronic, stable. GI bleed with presenting of Upper GI bleed, patient with intermittent rectal bleeding: Sewage Screen Operator consulted and Presumed hemorrhoids, continue Anusol HC as needed Presumed hemorrhoids Follow-up hemoglobin has remained stable Continue PPI. Protein calorie malnutrition: Improving PEG tube replaced 11/20/16 Consulted dietitian who indicated that patient may be converted to bolus feeding Jevity 1.5, 1.5, 360ml(1.5 cans)@ 0800, 1100, 1400 and 240ml(1-can)@ 1700 and 2000 Ensure Enlive 3 times a day since pudding 3 times a day Prealbumin level 25 Hypotension with episodes of hypertension: Stable Continue monitor blood pressure Continue Midodrine. obstructive uropathy: Resolved. With recurrent urinary tract infections. Treat only if symptomatic Suprapubic catheter in place, changed monthly, last changed 02/04/17 Seborrhea dermatitis, recurrent Counseled nursing staff on proper hygiene to avoid recurrence Responds well to Hydrocortisone cream. Continue to use when active DVT prophylaxis: Sequential compression devices Avoid chemical prophylaxis secondary to intermittent rectal bleeding Discharge Planning Discharge planning per case management. Jaguar Walker Mar 03, 2017 09:45
[2017-03-03 20:00] VITALS: BP 111/74; PULSE 75; RESP 20; TEMP 97; O2SAT 95
[2017-03-04] MEDS: MIDODRINE 5 MG TAB PEG SCH ×3 (06:03→17:50)
[2017-03-04 08:00] VITALS: BP 121/77; PULSE 65; RESP 18; TEMP 97.1; O2SAT 94
[2017-03-04] MEDS: LANSOPRAZOLE SOLUTAB 30 MG TAB PEG SCH (08:46)
[2017-03-04] MEDS: ALLOPURINOL 100 MG TAB PEG SCH (08:46)
[2017-03-04] MEDS: FREE WATER G-TUBE SCH (08:47)
--- NOTE | 2017-03-04 09:52 | HHI.PR ---
Subjective Remarks Follow up weakness and dementia. Patient seen and examined, lying in bed comfortably in no apparent distress, awake and alert. Nodding appropriately and following commands. No change in clinical status. Spoke to RN at bedside, with no reports of any new acute events overnight. Afebrile. Positive BM. Tolerating TF. Patient denies any recent ab pain, n/v/d or dysuria. Denies chest pain or shortness of breath. Objective Vitals Vital Signs Date Time Temp Pulse Resp B/P (MAP) Pulse Ox O2 Delivery O2 Flow Rate FiO2 03/04/17 08:00 97.1 65 18 121/77 (92) 94 03/03/17 20:00 97.0 75 20 111/74 (86) 95 I/O 03/03/17 03/03/17 03/03/17 03/04/17 03/04/17 03/04/17 07:00 15:00 23:00 07:00 15:00 23:00 Intake Total 1620 ml Output Total 450 ml 625 ml 360 ml Balance -450 ml 995 ml -360 ml Tube Feeding 1320 ml Other 300 ml Output Urine Total 450 ml 625 ml 300 ml Emesis 60 ml # Bowel Movements 5 1 Imaging Last Impressions Gastrostomy Tube Placement 11/20/16 0000 Signed Impressions: Service Date/Time: Sunday, November 20, 2016 14:06 - CONCLUSION: Uncomplicated gastrostomy tube placement as above. Cholelithiasis. Nitish Felton Jr., MD Abdomen/Pelvis CT 03/06/16 0000 Signed Impressions: Service Date/Time: Sunday, March 06, 2016 22:27 - CONCLUSION: 1. Resolution of right sided hydronephrosis. 2. Renal cysts. 3. Bladder is decompressed and there is circumferential bladder wall thickening and intraluminal air identified. A cystitis is not excluded. 4. A large stool ball is noted within the rectum. 5. Cholelithiasis. 6. Nonobstructing left renal calculus. Speedy Noriega MD Abdomen X-Ray 01/30/16 0000 Signed Impressions: Service Date/Time: Saturday, January 30, 2016 14:17 - CONCLUSION: Satisfactory PEG tube positioning Mikael Valladares MD Objective Remarks GENERAL: Well-developed, frail male patient lying in bed in NAD. SKIN: Warm and dry. No rash. Dry skin. HEENT: Normocephalic. Atraumatic. Pupils equal and round. No scleral icterus. No injection or drainage. No nasal bleeding or discharge. Mucous membranes pink and moist. EOMs intact. NECK: Supple. Trachea midline. CARDIOVASCULAR: Regular rate and rhythm. S1, S2 noted. No murmur appreciated. RESPIRATORY: No accessory muscle use. Clear to auscultation. Breath sounds equal bilaterally. GASTROINTESTINAL: Abdomen soft, non-tender, nondistended. Normoactive bowel sounds x4. No guarding noted. PEG tube in place, no drainage noted, no erythema , c/d/i. MUSCULOSKELETAL: No obvious deformities. Extremities without clubbing, cyanosis , or edema. NEUROLOGICAL: Awake and alert. No obvious cranial nerve deficits. Moving all extremities. PSYCHIATRIC: Appropriate mood and affect. Procedures None Urinary Catheter: Yes (suprapubic) Assessment to: Continue Date of Insertion: Feb 04, 2017 A/P Problem List: (1) Decreased urine output ICD Code: R34 - Anuria and oliguria Status: Acute (2) Prerenal azotemia ICD Code: R79.89 - Other specified abnormal findings of blood chemistry Status: Acute (3) Hematuria ICD Code: R31.9 - Hematuria, unspecified Status: Acute Assessment and Plan Weakness Continue physical therapy, however patient refuses get out of bed majority of the time Nursing staff to get patient up out of bed at least 3 times daily Palliative care requested consult with psychiatry to see if patient has capacity to make decisions. Psychiatry evaluated patient states that he does not have capacity make his own decisions. Palliative care discussed with family who is declining transition to comfort care, hospice. Dementia with inappropriate behavior, mood disorder improved Consulted psychiatry for further evaluation, who indicated that this is a frontal lobe dementia. Discontinued Remeron Family states that he does not want his father receiving any antidepressants , antianxiety, antipsychotic medications Parkinson's disease: Patient has dementia and resting tremor. Chronic, stable. GI bleed with presenting of Upper GI bleed, patient with intermittent rectal bleeding: Barrel Waterer consulted and Presumed hemorrhoids, continue Anusol HC as needed Presumed hemorrhoids Follow-up hemoglobin has remained stable. Continue PPI. Protein calorie malnutrition: Improving PEG tube replaced 11/20/16 Consulted dietitian who indicated that patient may be converted to bolus feeding Jevity 1.5, 1.5, 360ml(1.5 cans)@ 0800, 1100, 1400 and 240ml(1-can)@ 1700 and 2000 Ensure Enlive 3 times a day since pudding 3 times a day Prealbumin level 29 Hypotension with episodes of hypertension: Stable Continue monitor blood pressure Continue Midodrine. Obstructive uropathy: Resolved. With recurrent urinary tract infections. Treat only if symptomatic Suprapubic catheter in place, changed monthly, last changed 02/04/17. Seborrhea dermatitis, recurrent Continue to encourage proper hygiene to avoid recurrence Responds well to Hydrocortisone cream, continue PRN. DVT prophylaxis: SCDs. Avoid chemical prophylaxis secondary to intermittent rectal bleeding Discharge Planning Discharge planning per case management. Marium Abdi Mar 04, 2017 09:52
[2017-03-04 20:00] VITALS: BP 115/79; PULSE 83; RESP 20; TEMP 98.7; O2SAT 95
[2017-03-05] MEDS: MIDODRINE 5 MG TAB PEG SCH ×3 (06:09→17:59)
[2017-03-05 08:00] VITALS: BP 111/64; PULSE 81; RESP 18; TEMP 97.9; O2SAT 95
[2017-03-05] MEDS: LANSOPRAZOLE SOLUTAB 30 MG TAB PEG SCH (09:32)
[2017-03-05] MEDS: ALLOPURINOL 100 MG TAB PEG SCH (09:32)
[2017-03-05] MEDS: FREE WATER G-TUBE SCH (09:33)
--- NOTE | 2017-03-05 13:46 | HHI.PR ---
Subjective Remarks Follow up weakness and dementia. Patient seen and examined, lying in bed comfortably with eyes open. Smiling. Denies any new acute complaints. Follows commands appropriately. Per bedside RN, no new changes. Denies any chest pain, headache, shortness of breath. Objective Vitals Vital Signs Date Time Temp Pulse Resp B/P (MAP) Pulse Ox O2 Delivery O2 Flow Rate FiO2 03/05/17 08:00 97.9 81 18 111/64 (80) 95 03/04/17 20:00 98.7 83 20 115/79 (91) 95 I/O 03/04/17 03/04/17 03/04/17 03/05/17 03/05/17 03/05/17 07:00 15:00 23:00 07:00 15:00 23:00 Intake Total 1330 ml 454 ml 0 ml Output Total 360 ml 225 ml Balance -360 ml 1330 ml 454 ml -225 ml Intake Oral 0 ml Tube Feeding 1080 ml 204 ml Other 250 ml 250 ml Output Urine Total 300 ml 225 ml Emesis 60 ml # Bowel Movements 6 Imaging Last Impressions Gastrostomy Tube Placement 11/20/16 0000 Signed Impressions: Service Date/Time: Sunday, November 20, 2016 14:06 - CONCLUSION: Uncomplicated gastrostomy tube placement as above. Cholelithiasis. Nitish Felton Jr., MD Abdomen/Pelvis CT 03/06/16 0000 Signed Impressions: Service Date/Time: Sunday, March 06, 2016 22:27 - CONCLUSION: 1. Resolution of right sided hydronephrosis. 2. Renal cysts. 3. Bladder is decompressed and there is circumferential bladder wall thickening and intraluminal air identified. A cystitis is not excluded. 4. A large stool ball is noted within the rectum. 5. Cholelithiasis. 6. Nonobstructing left renal calculus. Speedy Noriega MD Abdomen X-Ray 01/30/16 0000 Signed Impressions: Service Date/Time: Saturday, January 30, 2016 14:17 - CONCLUSION: Satisfactory PEG tube positioning Mikael Valladares MD Objective Remarks GENERAL: Well-developed, frail male patient lying in bed in NAD. SKIN: Warm and dry. No rash. Dry skin. HEENT: Normocephalic. Atraumatic. Pupils equal and round. No scleral icterus. No injection or drainage. No nasal bleeding or discharge. Mucous membranes pink and moist. EOMs intact. NECK: Supple. Trachea midline. CARDIOVASCULAR: Regular rate and rhythm. S1, S2 noted. No murmur appreciated. RESPIRATORY: No accessory muscle use. Clear to auscultation. Breath sounds equal bilaterally. GASTROINTESTINAL: Abdomen soft, non-tender, nondistended. Normoactive bowel sounds x4. No guarding noted. PEG tube in place, no drainage noted, no erythema , c/d/i. MUSCULOSKELETAL: No obvious deformities. Extremities without clubbing, cyanosis , or edema. NEUROLOGICAL: Awake and alert. No obvious cranial nerve deficits. Moving all extremities. PSYCHIATRIC: Appropriate mood and affect. Procedures None Date of Insertion: Feb 04, 2017 A/P Problem List: (1) Decreased urine output ICD Code: R34 - Anuria and oliguria Status: Acute (2) Prerenal azotemia ICD Code: R79.89 - Other specified abnormal findings of blood chemistry Status: Acute (3) Hematuria ICD Code: R31.9 - Hematuria, unspecified Status: Acute Assessment and Plan Weakness Continue physical therapy, however patient refuses get out of bed majority of the time, recommendations for SNF at discharge. Nursing staff to get patient up out of bed at least 3 times daily. Palliative care requested consult with psychiatry to see if patient has capacity to make decisions. Psychiatry evaluated patient states that he does not have capacity make his own decisions. Palliative care discussed with family who is declining transition to comfort care, hospice. Dementia with inappropriate behavior, mood disorder improved Consulted psychiatry for further evaluation, who indicated that this is a frontal lobe dementia. Discontinued Remeron Family states that he does not want his father receiving any antidepressants , antianxiety, antipsychotic medications Parkinson's disease: Patient has dementia and resting tremor. Chronic, stable. GI bleed with presenting of Upper GI bleed, patient with intermittent rectal bleeding: Diagnostics Tech consulted and Presumed hemorrhoids, continue Anusol HC as needed Presumed hemorrhoids Follow-up hemoglobin has remained stable. Continue PPI. Protein calorie malnutrition: Improving PEG tube replaced 11/20/16 Consulted dietitian who indicated that patient may be converted to bolus feeding Jevity 1.5, 1.5, 360ml(1.5 cans)@ 0800, 1100, 1400 and 240ml(1-can)@ 1700 and 2000 Ensure Enlive 3 times a day since pudding 3 times a day Prealbumin level 29 Hypotension with episodes of hypertension: Stable Continue monitor blood pressure Continue Midodrine. Obstructive uropathy: Resolved. With recurrent urinary tract infections. Treat only if symptomatic Suprapubic catheter in place, changed monthly, last changed 02/04/17. Seborrhea dermatitis, recurrent Continue to encourage proper hygiene to avoid recurrence Responds well to Hydrocortisone cream, continue PRN. DVT prophylaxis: SCDs. Avoid chemical prophylaxis secondary to intermittent rectal bleeding Discharge Planning Discharge planning per case management. Marium Abdi Mar 05, 2017 13:46
[2017-03-05 20:00] VITALS: BP 112/59; PULSE 87; RESP 22; TEMP 97.9; O2SAT 93
[2017-03-06] MEDS: MIDODRINE 5 MG TAB PEG SCH ×3 (06:10→16:45)
--- NOTE | 2017-03-06 08:43 | HHI.PR ---
Subjective Remarks Follow up weakness and dementia. Patient seen and examined, lying in bed sleeping. Awakens to voice, smiling and pleasant. Denies any new changes. Spoke to RN at bedside who denies any acute events overnight. Afebrile. Positive BM. Tolerating TF. Objective Vitals Vital Signs Date Time Temp Pulse Resp B/P (MAP) Pulse Ox O2 Delivery O2 Flow Rate FiO2 03/05/17 20:00 97.9 87 22 112/59 (76) 93 I/O 03/05/17 03/05/17 03/05/17 03/06/17 03/06/17 03/06/17 07:00 15:00 23:00 07:00 15:00 23:00 Intake Total 0 ml 1430 ml 290 ml Output Total 225 ml 175 ml 375 ml Balance -225 ml 1430 ml 115 ml -375 ml Intake Oral 0 ml Tube Feeding 1080 ml 240 ml Other 350 ml 50 ml Output Urine Total 225 ml 175 ml 375 ml # Bowel Movements 6 2 2 Imaging Last Impressions Gastrostomy Tube Placement 11/20/16 0000 Signed Impressions: Service Date/Time: Sunday, November 20, 2016 14:06 - CONCLUSION: Uncomplicated gastrostomy tube placement as above. Cholelithiasis. Nitish Felton Jr., MD Abdomen/Pelvis CT 03/06/16 0000 Signed Impressions: Service Date/Time: Sunday, March 06, 2016 22:27 - CONCLUSION: 1. Resolution of right sided hydronephrosis. 2. Renal cysts. 3. Bladder is decompressed and there is circumferential bladder wall thickening and intraluminal air identified. A cystitis is not excluded. 4. A large stool ball is noted within the rectum. 5. Cholelithiasis. 6. Nonobstructing left renal calculus. Speedy Noriega MD Abdomen X-Ray 01/30/16 0000 Signed Impressions: Service Date/Time: Saturday, January 30, 2016 14:17 - CONCLUSION: Satisfactory PEG tube positioning Mikael Valladares MD Objective Remarks GENERAL: Well-developed, frail male patient lying in bed in NAD. SKIN: Warm and dry. No rash. Dry skin. HEENT: Normocephalic. Atraumatic. Pupils equal and round. No scleral icterus. No injection or drainage. No nasal bleeding or discharge. Mucous membranes pink and moist. EOMs intact. NECK: Supple. Trachea midline. CARDIOVASCULAR: Regular rate and rhythm. S1, S2 noted. No murmur appreciated. RESPIRATORY: No accessory muscle use. Clear to auscultation. Breath sounds equal bilaterally. GASTROINTESTINAL: Abdomen soft, non-tender, nondistended. Normoactive bowel sounds x4. No guarding noted. PEG tube in place, no drainage noted, no erythema , c/d/i. MUSCULOSKELETAL: No obvious deformities. Extremities without clubbing, cyanosis , or edema. NEUROLOGICAL: Awake and alert. No obvious cranial nerve deficits. Moving all extremities. PSYCHIATRIC: Appropriate mood and affect. Procedures None Date of Insertion: Feb 04, 2017 A/P Problem List: (1) Decreased urine output ICD Code: R34 - Anuria and oliguria Status: Acute (2) Prerenal azotemia ICD Code: R79.89 - Other specified abnormal findings of blood chemistry Status: Acute (3) Hematuria ICD Code: R31.9 - Hematuria, unspecified Status: Acute Assessment and Plan Weakness Continue physical therapy. Has been participating. Recommendations for SNF at discharge. Nursing staff to get patient up out of bed at least 3 times daily. Palliative care requested consult with psychiatry to see if patient has capacity to make decisions. Psychiatry evaluated patient states that he does not have capacity make his own decisions. Palliative care discussed with family who is declining transition to comfort care, hospice. Dementia with inappropriate behavior, mood disorder improved. Consulted psychiatry for further evaluation, who indicated that this is a frontal lobe dementia. Discontinued Remeron. Family states that he does not want his father receiving any antidepressants , antianxiety, antipsychotic medications Parkinson's disease: Patient has dementia and resting tremor. Chronic, stable. GI bleed with presenting of Upper GI bleed, patient with intermittent rectal bleeding. Stable. Personnel Records Clerk previously consulted, presumed hemorrhoids. Follow-up hemoglobin has remained stable. Follow intermittently. No signs of bleeding at this time. Continue PPI. Protein calorie malnutrition: Improving PEG tube replaced 11/20/16 Consulted dietitian who indicated that patient may be converted to bolus feeding Jevity 1.5, 1.5, 360ml(1.5 cans)@ 0800, 1100, 1400 and 240ml(1-can)@ 1700 and 2000 Ensure Enlive 3 times a day since pudding 3 times a day Prealbumin level 29 Hypotension with episodes of hypertension: Stable Continue monitor blood pressure Continue Midodrine. Obstructive uropathy: Resolved. With recurrent urinary tract infections. Treat only if symptomatic Suprapubic catheter in place, changed monthly, last changed 02/04/17. Seborrhea dermatitis, recurrent Continue to encourage proper hygiene to avoid recurrence Responds well to Hydrocortisone cream, continue PRN. DVT prophylaxis: SCDs. Avoid chemical prophylaxis secondary to intermittent rectal bleeding Discharge Planning Discharge planning per case management. Marium Abdi Mar 06, 2017 08:42
[2017-03-06 09:00] VITALS: BP 81/61; PULSE 72; RESP 16; TEMP 96.6; O2SAT 94
[2017-03-06] MEDS: FREE WATER G-TUBE SCH (09:00)
[2017-03-06] MEDS: LANSOPRAZOLE SOLUTAB 30 MG TAB PEG SCH (09:25)
[2017-03-06] MEDS: ALLOPURINOL 100 MG TAB PEG SCH (09:25)
[2017-03-06 15:08] VITALS: BP 112/68
[2017-03-06 20:00] VITALS: BP 102/72; PULSE 71; RESP 20; TEMP 97.4; O2SAT 94
[2017-03-07] MEDS: MIDODRINE 5 MG TAB PEG SCH ×3 (06:18→17:37)
[2017-03-07 08:00] VITALS: BP 100/61; PULSE 77; RESP 16; TEMP 97.7; O2SAT 94
[2017-03-07] MEDS: FREE WATER G-TUBE SCH (09:00)
[2017-03-07] MEDS: LANSOPRAZOLE SOLUTAB 30 MG TAB PEG SCH (09:47)
[2017-03-07] MEDS: ALLOPURINOL 100 MG TAB PEG SCH (09:48)
--- NOTE | 2017-03-07 12:05 | HHI.PR ---
Subjective Remarks Follow up weakness and dementia. Patient seen and examined, lying in bed comfortably. Awakens to voice, denies any new acute complaints, no events overnight. Follows commands. Tolerating TF. Afebrile. No change clinically. Denies any recent fever, chills, cough, chest pain, shortness of breath, ab pain , n/v/d or dysuria. Objective Vitals Vital Signs Date Time Temp Pulse Resp B/P (MAP) Pulse Ox O2 Delivery O2 Flow Rate FiO2 03/07/17 08:00 97.7 77 16 100/61 (74) 94 03/06/17 20:00 97.4 71 20 102/72 (82) 94 03/06/17 15:08 112/68 (83) I/O 03/06/17 03/06/17 03/06/17 03/07/17 03/07/17 03/07/17 07:00 15:00 23:00 07:00 15:00 23:00 Intake Total 0 ml 2120 ml 540 ml Output Total 375 ml 500 ml 575 ml Balance -375 ml 0 ml 1620 ml -35 ml Intake Oral 0 ml 0 ml 0 ml Tube Feeding 1320 ml 240 ml Other 800 ml 300 ml Output Urine Total 375 ml 500 ml 575 ml # Bowel Movements 2 1 1 7 Imaging Last Impressions Gastrostomy Tube Placement 11/20/16 0000 Signed Impressions: Service Date/Time: Sunday, November 20, 2016 14:06 - CONCLUSION: Uncomplicated gastrostomy tube placement as above. Cholelithiasis. Nitish Felton Jr., MD Abdomen/Pelvis CT 03/06/16 0000 Signed Impressions: Service Date/Time: Sunday, March 06, 2016 22:27 - CONCLUSION: 1. Resolution of right sided hydronephrosis. 2. Renal cysts. 3. Bladder is decompressed and there is circumferential bladder wall thickening and intraluminal air identified. A cystitis is not excluded. 4. A large stool ball is noted within the rectum. 5. Cholelithiasis. 6. Nonobstructing left renal calculus. Speedy Noriega MD Abdomen X-Ray 01/30/16 0000 Signed Impressions: Service Date/Time: Saturday, January 30, 2016 14:17 - CONCLUSION: Satisfactory PEG tube positioning Mikael Valladares MD Objective Remarks GENERAL: Well-developed, frail male patient lying in bed in [facility]. SKIN: Warm and dry. No rash. Dry skin. HEENT: Normocephalic. Atraumatic. Pupils equal and round. No scleral icterus. No injection or drainage. No nasal bleeding or discharge. Mucous membranes pink and moist. EOMs intact. NECK: Supple. Trachea midline. CARDIOVASCULAR: Regular rate and rhythm. S1, S2 noted. No murmur appreciated. RESPIRATORY: No accessory muscle use. Clear to auscultation. Breath sounds equal bilaterally. GASTROINTESTINAL: Abdomen soft, non-tender, nondistended. Normoactive bowel sounds x4. No guarding noted. PEG tube in place, no drainage noted, no erythema , c/d/i. MUSCULOSKELETAL: No obvious deformities. Extremities without clubbing, cyanosis , or edema. NEUROLOGICAL: Awake and alert. No obvious cranial nerve deficits. Moving all extremities. PSYCHIATRIC: Appropriate mood and affect. Procedures None Date of Insertion: Feb 04, 2017 A/P Problem List: (1) Decreased urine output ICD Code: R34 - Anuria and oliguria Status: Acute (2) Prerenal azotemia ICD Code: R79.89 - Other specified abnormal findings of blood chemistry Status: Acute (3) Hematuria ICD Code: R31.9 - Hematuria, unspecified Status: Acute Assessment and Plan Weakness Continue physical therapy. Has been participating. Recommendations for SNF at discharge. Nursing staff to get patient up out of bed at least 3 times daily. Palliative care requested consult with psychiatry to see if patient has capacity to make decisions. Psychiatry evaluated patient states that he does not have capacity make his own decisions. Palliative care discussed with family who is declining transition to comfort care, hospice. Dementia with inappropriate behavior, mood disorder improved. Consulted psychiatry for further evaluation, who indicated that this is a frontal lobe dementia. Discontinued Remeron. Family states that he does not want his father receiving any antidepressants , antianxiety, antipsychotic medications Parkinson's disease: Patient has dementia and resting tremor. Chronic, stable. GI bleed with presenting of Upper GI bleed, patient with intermittent rectal bleeding. Stable. Sheet Metal Erector previously consulted, presumed hemorrhoids. Follow-up hemoglobin has remained stable. Follow intermittently. No signs of bleeding at this time. Continue PPI. Protein calorie malnutrition: Improving PEG tube replaced 11/20/16 Consulted dietitian who indicated that patient may be converted to bolus feeding Jevity 1.5, 1.5, 360ml(1.5 cans)@ 0800, 1100, 1400 and 240ml(1-can)@ 1700 and 2000 Ensure Enlive 3 times a day since pudding 3 times a day Prealbumin level 29 Hypotension with episodes of hypertension: Stable Continue monitor blood pressure Continue Midodrine. Obstructive uropathy: Resolved. With recurrent urinary tract infections. Treat only if symptomatic Suprapubic catheter in place, changed monthly, last changed 02/04/17. Requested cath to be changed today. Seborrhea dermatitis, recurrent Continue to encourage proper hygiene to avoid recurrence Responds well to Hydrocortisone cream, continue PRN. DVT prophylaxis: SCDs. Avoid chemical prophylaxis secondary to intermittent rectal bleeding Discharge Planning Discharge planning per case management. Marium Abdi Mar 07, 2017 12:05
[2017-03-07 20:00] VITALS: BP 110/62; PULSE 76; RESP 20; TEMP 97.2; O2SAT 95
[2017-03-08] MEDS: MIDODRINE 5 MG TAB PEG SCH ×3 (05:23→16:16)
[2017-03-08 07:50] VITALS: BP 114/64; PULSE 70; RESP 20; TEMP 97.1; O2SAT 93
[2017-03-08] MEDS: ALLOPURINOL 100 MG TAB PEG SCH (08:32)
[2017-03-08] MEDS: LANSOPRAZOLE SOLUTAB 30 MG TAB PEG SCH (08:33)
[2017-03-08] MEDS: FREE WATER G-TUBE SCH (08:33)
--- NOTE | 2017-03-08 11:43 | HHI.PR ---
Subjective Remarks Follow up weakness and dementia. Patient seen and examined lying in bed comfortably. Awake and alert, follows commands. No change in patient condition clinically. Denies any new acute change. Afebrile. Tolerating TF. Suprapubic changed today. Objective Vitals Vital Signs Date Time Temp Pulse Resp B/P (MAP) Pulse Ox O2 Delivery O2 Flow Rate FiO2 03/08/17 07:50 97.1 70 20 114/64 (81) 93 03/07/17 20:00 97.2 76 20 110/62 (78) 95 I/O 03/07/17 03/07/17 03/07/17 03/08/17 03/08/17 03/08/17 07:00 15:00 23:00 07:00 15:00 23:00 Intake Total 540 ml 0 ml 490 ml Output Total 575 ml 450 ml 600 ml Balance -35 ml -450 ml -110 ml Intake Oral 0 ml 0 ml 0 ml Tube Feeding 240 ml 240 ml Tube Irrigant 250 ml Other 300 ml Output Urine Total 575 ml 450 ml 600 ml # Bowel Movements 7 1 1 2 Imaging Last Impressions Gastrostomy Tube Placement 11/20/16 0000 Signed Impressions: Service Date/Time: Sunday, November 20, 2016 14:06 - CONCLUSION: Uncomplicated gastrostomy tube placement as above. Cholelithiasis. Nitish Felton Jr., MD Abdomen/Pelvis CT 03/06/16 0000 Signed Impressions: Service Date/Time: Sunday, March 06, 2016 22:27 - CONCLUSION: 1. Resolution of right sided hydronephrosis. 2. Renal cysts. 3. Bladder is decompressed and there is circumferential bladder wall thickening and intraluminal air identified. A cystitis is not excluded. 4. A large stool ball is noted within the rectum. 5. Cholelithiasis. 6. Nonobstructing left renal calculus. Speedy Noriega MD Abdomen X-Ray 01/30/16 0000 Signed Impressions: Service Date/Time: Saturday, January 30, 2016 14:17 - CONCLUSION: Satisfactory PEG tube positioning Mikael Valladares MD Objective Remarks GENERAL: Well-developed, frail male patient lying in bed in NAD. SKIN: Warm and dry. No rash. Dry skin. HEENT: Normocephalic. Atraumatic. Pupils equal and round. No scleral icterus. No injection or drainage. No nasal bleeding or discharge. Mucous membranes pink and moist. EOMs intact. NECK: Supple. Trachea midline. CARDIOVASCULAR: Regular rate and rhythm. S1, S2 noted. No murmur appreciated. RESPIRATORY: No accessory muscle use. Clear to auscultation. Breath sounds equal bilaterally. GASTROINTESTINAL: Abdomen soft, non-tender, nondistended. Normoactive bowel sounds x4. No guarding noted. PEG tube in place, no drainage noted, no erythema , c/d/i. MUSCULOSKELETAL: No obvious deformities. Extremities without clubbing, cyanosis , or edema. NEUROLOGICAL: Awake and alert. No obvious cranial nerve deficits. Moving all extremities. PSYCHIATRIC: Appropriate mood and affect. Procedures None Urinary Catheter: Yes Assessment to: Continue Date of Insertion: Mar 08, 2017 A/P Problem List: (1) Decreased urine output ICD Code: R34 - Anuria and oliguria Status: Acute (2) Prerenal azotemia ICD Code: R79.89 - Other specified abnormal findings of blood chemistry Status: Acute (3) Hematuria ICD Code: R31.9 - Hematuria, unspecified Status: Acute Assessment and Plan Weakness Continue physical therapy. Has been participating. Recommendations for SNF at discharge. Nursing staff to get patient up out of bed at least 3 times daily. Palliative care requested consult with psychiatry to see if patient has capacity to make decisions. Psychiatry evaluated patient states that he does not have capacity make his own decisions. Palliative care discussed with family who is declining transition to comfort care, hospice. Dementia with inappropriate behavior, mood disorder improved. Consulted psychiatry for further evaluation, who indicated that this is a frontal lobe dementia. Discontinued Remeron. Family states that he does not want his father receiving any antidepressants , antianxiety, antipsychotic medications Parkinson's disease: Patient has dementia and resting tremor. Chronic, stable. GI bleed with presenting of Upper GI bleed, patient with intermittent rectal bleeding. Stable. Cement Finisher Apprentice previously consulted, presumed hemorrhoids. Follow-up hemoglobin has remained stable. Follow intermittently. No signs of bleeding at this time. Continue PPI. Protein calorie malnutrition: Improving PEG tube replaced 11/20/16 Consulted dietitian who indicated that patient may be converted to bolus feeding Jevity 1.5, 1.5, 360ml(1.5 cans)@ 0800, 1100, 1400 and 240ml(1-can)@ 1700 and 2000 Ensure Enlive 3 times a day since pudding 3 times a day Prealbumin level 29 Hypotension with episodes of hypertension: Stable Continue monitor blood pressure Continue Midodrine. Obstructive uropathy: Resolved. With recurrent urinary tract infections. Treat only if symptomatic Suprapubic catheter in place, changed monthly, last changed 03/08/17. Seborrhea dermatitis, recurrent Continue to encourage proper hygiene to avoid recurrence Responds well to Hydrocortisone cream, continue PRN. DVT prophylaxis: SCDs. Avoid chemical prophylaxis secondary to intermittent rectal bleeding. Discharge Planning Discharge planning per case management. Marium Abdi Mar 08, 2017 11:43
[2017-03-08 16:57] VITALS: TEMP 98.4
[2017-03-08 20:00] VITALS: BP 110/68; PULSE 84; RESP 18; TEMP 96.5; O2SAT 95
[2017-03-09] MEDS: MIDODRINE 5 MG TAB PEG SCH ×3 (05:54→18:04)
[2017-03-09 07:50] VITALS: BP 122/72; PULSE 69; RESP 20; TEMP 97.1; O2SAT 94
[2017-03-09] MEDS: LANSOPRAZOLE SOLUTAB 30 MG TAB PEG SCH (09:08)
[2017-03-09] MEDS: ALLOPURINOL 100 MG TAB PEG SCH (09:08)
[2017-03-09] MEDS: FREE WATER G-TUBE SCH (09:09)
--- NOTE | 2017-03-09 11:18 | HHI.PR ---
Subjective Remarks Follow up weakness and dementia. Patient seen and examined lying awake in bed. Smiling and pleasant. Following commands appropriately. Denies any new acute complaints. Tolerating TF. Denies any shortness of breath, chest pain or abdominal pain. Objective Vitals Vital Signs Date Time Temp Pulse Resp B/P (MAP) Pulse Ox O2 Delivery O2 Flow Rate FiO2 03/09/17 07:50 97.1 69 20 122/72 (89) 94 03/08/17 20:00 96.5 84 18 110/68 (82) 95 03/08/17 16:57 98.4 I/O 03/08/17 03/08/17 03/08/17 03/09/17 03/09/17 03/09/17 06:59 14:59 22:59 06:59 14:59 22:59 Intake Total 490 ml 2120 ml 640 ml 0 ml Output Total 600 ml 0 ml Balance -110 ml 2120 ml 640 ml 0 ml Intake Oral 0 ml 0 ml Tube Feeding 240 ml 1320 ml 240 ml Tube Irrigant 250 ml Other 800 ml 400 ml Output Urine Total 600 ml Gastric Drainage Total 0 ml # Bowel Movements 2 Imaging Last Impressions Gastrostomy Tube Placement 11/20/16 0000 Signed Impressions: Service Date/Time: Sunday, November 20, 2016 14:06 - CONCLUSION: Uncomplicated gastrostomy tube placement as above. Cholelithiasis. Nitish Felton Jr., MD Abdomen/Pelvis CT 03/06/16 0000 Signed Impressions: Service Date/Time: Sunday, March 06, 2016 22:27 - CONCLUSION: 1. Resolution of right sided hydronephrosis. 2. Renal cysts. 3. Bladder is decompressed and there is circumferential bladder wall thickening and intraluminal air identified. A cystitis is not excluded. 4. A large stool ball is noted within the rectum. 5. Cholelithiasis. 6. Nonobstructing left renal calculus. Speedy Noriega MD Abdomen X-Ray 01/30/16 0000 Signed Impressions: Service Date/Time: Saturday, January 30, 2016 14:17 - CONCLUSION: Satisfactory PEG tube positioning Mikael Valladares MD Objective Remarks GENERAL: Well-developed, frail male patient lying in bed in NAD. SKIN: Warm and dry. No rash. Dry skin. HEENT: Normocephalic. Atraumatic. Pupils equal and round. No scleral icterus. No injection or drainage. No nasal bleeding or discharge. Mucous membranes pink and moist. EOMs intact. NECK: Supple. Trachea midline. CARDIOVASCULAR: Regular rate and rhythm. S1, S2 noted. No murmur appreciated. RESPIRATORY: No accessory muscle use. Clear to auscultation. Breath sounds equal bilaterally. GASTROINTESTINAL: Abdomen soft, non-tender, nondistended. Normoactive bowel sounds x4. No guarding noted. PEG tube in place, no drainage noted, no erythema , c/d/i. MUSCULOSKELETAL: No obvious deformities. Extremities without clubbing, cyanosis , or edema. NEUROLOGICAL: Awake and alert. No obvious cranial nerve deficits. Moving all extremities. PSYCHIATRIC: Appropriate mood and affect. Procedures None Date of Insertion: Mar 08, 2017 A/P Problem List: (1) Decreased urine output ICD Code: R34 - Anuria and oliguria Status: Acute (2) Prerenal azotemia ICD Code: R79.89 - Other specified abnormal findings of blood chemistry Status: Acute (3) Hematuria ICD Code: R31.9 - Hematuria, unspecified Status: Acute Assessment and Plan Weakness Continue physical therapy. Has been participating. Recommendations for SNF at discharge. Nursing staff to get patient up out of bed at least 3 times daily. Palliative care requested consult with psychiatry to see if patient has capacity to make decisions. Psychiatry evaluated patient states that he does not have capacity make his own decisions. Palliative care discussed with family who is declining transition to comfort care, hospice. Dementia with inappropriate behavior, mood disorder improved. Consulted psychiatry for further evaluation, who indicated that this is a frontal lobe dementia. Discontinued Remeron. Family states that he does not want his father receiving any antidepressants , antianxiety, antipsychotic medications Parkinson's disease: Patient has dementia and resting tremor. Chronic, stable. GI bleed with presenting of Upper GI bleed, patient with intermittent rectal bleeding. Stable. 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 Follow-up hemoglobin has remained stable. Follow intermittently. No signs of bleeding at this time. Continue PPI. Protein calorie malnutrition: Improving PEG tube replaced 11/20/16 Consulted dietitian who indicated that patient may be converted to bolus feeding Jevity 1.5, 1.5, 360ml(1.5 cans)@ 0800, 1100, 1400 and 240ml(1-can)@ 1700 and 2000 Ensure Enlive 3 times a day since pudding 3 times a day Prealbumin level 29 Hypotension with episodes of hypertension: Stable Continue monitor blood pressure Continue Midodrine. Obstructive uropathy: Resolved. With recurrent urinary tract infections. Treat only if symptomatic Suprapubic catheter in place, changed monthly, last changed 03/08/17. Seborrhea dermatitis, recurrent Continue to encourage proper hygiene to avoid recurrence Responds well to Hydrocortisone cream, continue PRN. DVT prophylaxis: SCDs. Avoid chemical prophylaxis secondary to intermittent rectal bleeding. Discharge Planning Discharge planning per case management. Marium Abdi Mar 09, 2017 11:18
[2017-03-09 20:00] VITALS: BP 100/68; PULSE 78; RESP 18; TEMP 96.9; O2SAT 96
[2017-03-10] MEDS: MIDODRINE 5 MG TAB PEG SCH ×3 (06:06→17:06)
[2017-03-10 08:00] VITALS: BP 130/89; PULSE 73; RESP 16; TEMP 97.5; O2SAT 96
[2017-03-10] MEDS: ALLOPURINOL 100 MG TAB PEG SCH (08:30)
[2017-03-10] MEDS: LANSOPRAZOLE SOLUTAB 30 MG TAB PEG SCH (08:30)
[2017-03-10] MEDS: FREE WATER G-TUBE SCH (08:31)
--- NOTE | 2017-03-10 11:56 | HHI.PR ---
Subjective Remarks Follow up weakness and dementia. Patient seen and examined sleeping in bed, awakens to voice. Follows commands. Pleasant today. Denies any new acute events overnight. Denies any pain. Spoke to RN and denies any change in clinical condition. Tolerating TF. Patient denies any recent fever, chills, headache, chest pain, ab pain, n/v/d. Objective Vitals Vital Signs Date Time Temp Pulse Resp B/P (MAP) Pulse Ox O2 Delivery O2 Flow Rate FiO2 03/10/17 08:00 97.5 73 16 130/89 (103) 96 03/09/17 20:00 96.9 78 18 100/68 (79) 96 I/O 03/09/17 03/09/17 03/09/17 03/10/17 03/10/17 03/10/17 07:00 15:00 23:00 07:00 15:00 23:00 Intake Total 640 ml 0 ml 0 ml Output Total 0 ml 800 ml 700 ml Balance 640 ml 0 ml -800 ml -700 ml Intake Oral 0 ml 0 ml Tube Feeding 240 ml Other 400 ml Output Urine Total 800 ml 700 ml Gastric Drainage Total 0 ml # Bowel Movements 3 3 Imaging Last Impressions Gastrostomy Tube Placement 11/20/16 0000 Signed Impressions: Service Date/Time: Sunday, November 20, 2016 14:06 - CONCLUSION: Uncomplicated gastrostomy tube placement as above. Cholelithiasis. Nitish Felton Jr., MD Abdomen/Pelvis CT 03/06/16 0000 Signed Impressions: Service Date/Time: Sunday, March 06, 2016 22:27 - CONCLUSION: 1. Resolution of right sided hydronephrosis. 2. Renal cysts. 3. Bladder is decompressed and there is circumferential bladder wall thickening and intraluminal air identified. A cystitis is not excluded. 4. A large stool ball is noted within the rectum. 5. Cholelithiasis. 6. Nonobstructing left renal calculus. Speedy Noriega MD Abdomen X-Ray 01/30/16 0000 Signed Impressions: Service Date/Time: Saturday, January 30, 2016 14:17 - CONCLUSION: Satisfactory PEG tube positioning Mikael Valladares MD Objective Remarks GENERAL: Well-developed, frail male patient lying in bed in NAD. SKIN: Warm and dry. No rash. Dry skin. HEENT: Normocephalic. Atraumatic. Pupils equal and round. No scleral icterus. No injection or drainage. No nasal bleeding or discharge. Mucous membranes pink and moist. EOMs intact. NECK: Supple. Trachea midline. CARDIOVASCULAR: Regular rate and rhythm. S1, S2 noted. No murmur appreciated. RESPIRATORY: No accessory muscle use. Clear to auscultation. Breath sounds equal bilaterally. GASTROINTESTINAL: Abdomen soft, non-tender, nondistended. Normoactive bowel sounds x4. No guarding noted. PEG tube in place, no drainage noted, no erythema , c/d/i. MUSCULOSKELETAL: No obvious deformities. Extremities without clubbing, cyanosis , or edema. NEUROLOGICAL: Awake and alert. No obvious cranial nerve deficits. Moving all extremities. PSYCHIATRIC: Appropriate mood and affect. Procedures None Date of Insertion: Mar 08, 2017 A/P Problem List: (1) Decreased urine output ICD Code: R34 - Anuria and oliguria Status: Acute (2) Prerenal azotemia ICD Code: R79.89 - Other specified abnormal findings of blood chemistry Status: Acute (3) Hematuria ICD Code: R31.9 - Hematuria, unspecified Status: Acute Assessment and Plan Weakness Continue physical therapy. Has been participating. Recommendations for SNF at discharge. Nursing staff to get patient up out of bed at least 3 times daily. Palliative care requested consult with psychiatry to see if patient has capacity to make decisions. Psychiatry evaluated patient states that he does not have capacity make his own decisions. Palliative care discussed with family who is declining transition to comfort care, hospice. Dementia with inappropriate behavior, mood disorder improved. Consulted psychiatry for further evaluation, who indicated that this is a frontal lobe dementia. Discontinued Remeron. Family states that he does not want his father receiving any antidepressants , antianxiety, antipsychotic medications Parkinson's disease: Patient has dementia and resting tremor. Chronic, stable. GI bleed with presenting of Upper GI bleed, patient with intermittent rectal bleeding. Stable. [place] Aide previously consulted, presumed hemorrhoids. Follow-up hemoglobin has remained stable. Follow intermittently. No signs of bleeding at this time. Continue PPI. Protein calorie malnutrition: Improving PEG tube replaced 11/20/16 Consulted dietitian who indicated that patient may be converted to bolus feeding Jevity 1.5, 1.5, 360ml(1.5 cans)@ 0800, 1100, 1400 and 240ml(1-can)@ 1700 and 2000 Ensure Enlive 3 times a day since pudding 3 times a day Prealbumin level 29. Hypotension with episodes of hypertension: Stable Continue monitor blood pressure Continue Midodrine. Obstructive uropathy: Resolved. With recurrent urinary tract infections. Treat only if symptomatic Suprapubic catheter in place, changed monthly, last changed 03/08/17. Seborrhea dermatitis, recurrent Continue to encourage proper hygiene to avoid recurrence Responds well to Hydrocortisone cream, continue PRN. DVT prophylaxis: SCDs. Avoid chemical prophylaxis secondary to intermittent rectal bleeding. Discharge Planning Discharge planning per case management. Marium Abdi Mar 10, 2017 11:56
[2017-03-10 20:00] VITALS: BP 118/84; PULSE 70; RESP 20; TEMP 97.8; O2SAT 97
[2017-03-11] MEDS: MIDODRINE 5 MG TAB PEG SCH ×3 (06:02→17:00)
[2017-03-11 07:50] VITALS: BP 103/66; PULSE 69; RESP 20; TEMP 97.6; O2SAT 94
[2017-03-11] MEDS: ALLOPURINOL 100 MG TAB PEG SCH (08:10)
[2017-03-11] MEDS: FREE WATER G-TUBE SCH (08:11)
[2017-03-11] MEDS: LANSOPRAZOLE SOLUTAB 30 MG TAB PEG SCH (08:11)
--- NOTE | 2017-03-11 11:46 | HHI.PR ---
Subjective Remarks Patient seen and examined today for follow-up on profound weakness, dementia. Patient denies any new complaints. Patient lying in bed comfortably. Tolerating tube feeding. No change in clinical status. Objective Vitals Vital Signs Date Time Temp Pulse Resp B/P (MAP) Pulse Ox O2 Delivery O2 Flow Rate FiO2 03/11/17 07:50 97.6 69 20 103/66 (78) 94 03/10/17 20:00 97.8 70 20 118/84 (95) 97 I/O 03/10/17 03/10/17 03/10/17 03/11/17 03/11/17 03/11/17 07:00 15:00 23:00 07:00 15:00 23:00 Intake Total 0 ml Output Total 700 ml 475 ml Balance -700 ml -475 ml Intake Oral 0 ml Output Urine Total 700 ml 475 ml # Bowel Movements 3 1 Objective Remarks GENERAL: Well-developed, well-nourished, in no acute distress. HEENT: Head is normocephalic without any lesions or masses noted. Facial features are symmetric. Eyes: Extraocular muscles are intact. Conjunctivae were clear. NECK: Trachea midline no deviation. CARDIAC: Regular rhythm, regular rate. S1/S2 are heard. No murmurs gallops or rubs. LUNGS: Clear to auscultation bilaterally. No wheeze, rhonchi or rales. No use of accessory muscles on inspiration or expiration. ABDOMEN: Soft, nontender. Nondistended. Bowel sounds heard in all 4 quadrants. No organomegaly or masses. Negative rebound, negative guarding, suprapubic catheter in place, PEG tube in place with no signs of infection, EXTREMITIES: No edema, pulses are equal bilaterally. No cyanosis or clubbing NEUROLOGY: Mood and affect appear appropriate. Cranial nerves II through XII grossly intact. Moving all extremities Procedures None Urinary Catheter: Yes Assessment to: Continue Soto insert reason: Obstruction/Retention Date of Insertion: Mar 08, 2017 Vascular Central Line Catheter: No A/P Assessment and Plan Weakness: Continue physical therapy, however patient refuses get out of bed majority of the time Nursing staff to get patient up out of bed at least 3 times daily Palliative care requested consult with psychiatry to see if patient has capacity to make decisions. Psychiatry evaluated patient states that he does not have capacity make his own decisions Palliative care discussed with family who is declining transition to comfort care, hospice. Dementia with inappropriate behavior, mood disorder improved Consulted psychiatry for further evaluation, who indicated that this is a frontal lobe dementia Discontinued Remeron Family states that he does not want his father receiving any antidepressants , antianxiety, antipsychotic medications Parkinson's disease: Patient has dementia and resting tremor. Chronic, stable. GI bleed with presenting of Upper GI bleed, patient with intermittent rectal bleeding: Thread Winder Automatic consulted and Presumed hemorrhoids, continue Anusol HC as needed Presumed hemorrhoids Follow-up hemoglobin has remained stable Continue PPI. Protein calorie malnutrition: Improving PEG tube replaced 11/20/16 Consulted dietitian who indicated that patient may be converted to bolus feeding Jevity 1.5, 1.5, 360ml(1.5 cans)@ 0800, 1100, 1400 and 240ml(1-can)@ 1700 and 2000 Ensure Enlive 3 times a day since pudding 3 times a day Prealbumin level 25 Hypotension with episodes of hypertension: Stable Continue monitor blood pressure Continue Midodrine. obstructive uropathy: Resolved. With recurrent urinary tract infections. Treat only if symptomatic Suprapubic catheter in place, changed monthly, last changed 03/08/17 Seborrhea dermatitis, recurrent Counseled nursing staff on proper hygiene to avoid recurrence Responds well to Hydrocortisone cream. Continue to use when active DVT prophylaxis: Sequential compression devices Avoid chemical prophylaxis secondary to intermittent rectal bleeding Discharge Planning Discharge planning per case management. Jaguar Walker Mar 11, 2017 11:46
[2017-03-11 20:00] VITALS: BP 107/56; PULSE 73; RESP 18; TEMP 97.8; O2SAT 95
[2017-03-12] MEDS: MIDODRINE 5 MG TAB PEG SCH ×3 (06:12→16:35)
[2017-03-12 07:50] VITALS: BP 123/67; PULSE 72; RESP 20; TEMP 96.8
[2017-03-12] MEDS: LANSOPRAZOLE SOLUTAB 30 MG TAB PEG SCH (08:30)
[2017-03-12] MEDS: ALLOPURINOL 100 MG TAB PEG SCH (08:30)
[2017-03-12] MEDS: FREE WATER G-TUBE SCH (08:49)
--- NOTE | 2017-03-12 09:48 | HHI.PR ---
Subjective Remarks Patient seen and examined today for follow-up on weakness, dementia. Patient not indicate any new complaints. No change in clinical status. Nursing staff does not indicate any acute events overnight. Objective Vitals Vital Signs Date Time Temp Pulse Resp B/P (MAP) Pulse Ox O2 Delivery O2 Flow Rate FiO2 03/12/17 07:50 96.8 72 20 123/67 (85) 03/11/17 20:00 97.8 73 18 107/56 (73) 95 I/O 03/11/17 03/11/17 03/11/17 03/12/17 03/12/17 03/12/17 07:00 15:00 23:00 07:00 15:00 23:00 Intake Total 440 ml Output Total 400 ml Balance 40 ml Tube Feeding 240 ml Other 200 ml Output Urine Total 400 ml # Bowel Movements 3 Objective Remarks GENERAL: Well-developed, well-nourished, in no acute distress. HEENT: Head is normocephalic without any lesions or masses noted. Facial features are symmetric. Eyes: Extraocular muscles are intact. Conjunctivae were clear. NECK: Trachea midline no deviation. CARDIAC: Regular rhythm, regular rate. S1/S2 are heard. No murmurs gallops or rubs. LUNGS: Clear to auscultation bilaterally. No wheeze, rhonchi or rales. No use of accessory muscles on inspiration or expiration. ABDOMEN: Soft, nontender. Nondistended. Bowel sounds heard in all 4 quadrants. No organomegaly or masses. Negative rebound, negative guarding, suprapubic catheter in place, PEG tube in place with no signs of infection, EXTREMITIES: No edema, pulses are equal bilaterally. No cyanosis or clubbing NEUROLOGY: Mood and affect appear appropriate. Cranial nerves II through XII grossly intact. Moving all extremities Procedures None Urinary Catheter: Yes Assessment to: Continue Soto insert reason: Obstruction/Retention Date of Insertion: Mar 08, 2017 Vascular Central Line Catheter: No A/P Assessment and Plan Weakness: Continue physical therapy, however patient refuses get out of bed majority of the time Nursing staff to get patient up out of bed at least 3 times daily Palliative care requested consult with psychiatry to see if patient has capacity to make decisions. Psychiatry evaluated patient states that he does not have capacity make his own decisions Palliative care discussed with family who is declining transition to comfort care, hospice. Dementia with inappropriate behavior, mood disorder improved Consulted psychiatry for further evaluation, who indicated that this is a frontal lobe dementia Discontinued Remeron Family states that he does not want his father receiving any antidepressants , antianxiety, antipsychotic medications Parkinson's disease: Patient has dementia and resting tremor. Chronic, stable. GI bleed with presenting of Upper GI bleed, patient with intermittent rectal bleeding: Hands Parter consulted and Presumed hemorrhoids, continue Anusol HC as needed Presumed hemorrhoids Follow-up hemoglobin has remained stable Continue PPI. Protein calorie malnutrition: Improving PEG tube replaced 11/20/16 Consulted dietitian who indicated that patient may be converted to bolus feeding Jevity 1.5, 1.5, 360ml(1.5 cans)@ 0800, 1100, 1400 and 240ml(1-can)@ 1700 and 2000 Ensure Enlive 3 times a day since pudding 3 times a day Prealbumin level 25 Hypotension with episodes of hypertension: Stable Continue monitor blood pressure Continue Midodrine. obstructive uropathy: Resolved. With recurrent urinary tract infections. Treat only if symptomatic Suprapubic catheter in place, changed monthly, last changed 03/08/17 Seborrhea dermatitis, recurrent Counseled nursing staff on proper hygiene to avoid recurrence Responds well to Hydrocortisone cream. Continue to use when active DVT prophylaxis: Sequential compression devices Avoid chemical prophylaxis secondary to intermittent rectal bleeding Records were reviewed. No change in current treatment plan. Awaiting case management discharge planning Discharge Planning Discharge planning per case management. Jaguar Walker Mar 12, 2017 09:47
[2017-03-12 20:00] VITALS: BP 123/67; PULSE 70; RESP 20; TEMP 98.8; O2SAT 97
[2017-03-13] MEDS: MIDODRINE 5 MG TAB PEG SCH ×3 (06:30→17:59)
[2017-03-13 08:00] VITALS: BP 115/64; PULSE 66; RESP 16; TEMP 98.3; O2SAT 95
[2017-03-13] MEDS: FREE WATER G-TUBE SCH (09:00)
--- NOTE | 2017-03-13 09:32 | HHI.PR ---
Subjective Remarks Patient seen and examined today for follow-up on profound weakness, dementia. Patient denies any new complaints today. No change clinical status. Awaiting nurse case manager discharge planning Objective Vitals Vital Signs Date Time Temp Pulse Resp B/P (MAP) Pulse Ox O2 Delivery O2 Flow Rate FiO2 03/13/17 08:00 98.3 66 16 115/64 (81) 95 03/12/17 20:00 98.8 70 20 123/67 (85) 97 I/O 03/12/17 03/12/17 03/12/17 03/13/17 03/13/17 03/13/17 07:00 15:00 23:00 07:00 15:00 23:00 Intake Total 540 ml Output Total 400 ml 400 ml Balance -400 ml 140 ml Tube Feeding 240 ml Tube Irrigant 300 ml Output Urine Total 400 ml 400 ml # Bowel Movements 2 Objective Remarks GENERAL: Well-developed, well-nourished, in no acute distress. HEENT: Head is normocephalic without any lesions or masses noted. Facial features are symmetric. Eyes: Extraocular muscles are intact. Conjunctivae were clear. NECK: Trachea midline no deviation. CARDIAC: Regular rhythm, regular rate. S1/S2 are heard. No murmurs gallops or rubs. LUNGS: Clear to auscultation bilaterally. No wheeze, rhonchi or rales. No use of accessory muscles on inspiration or expiration. ABDOMEN: Soft, nontender. Nondistended. Bowel sounds heard in all 4 quadrants. No organomegaly or masses. Negative rebound, negative guarding, suprapubic catheter in place, PEG tube in place with no signs of infection, EXTREMITIES: No edema, pulses are equal bilaterally. No cyanosis or clubbing NEUROLOGY: Mood and affect appear appropriate. Cranial nerves II through XII grossly intact. Moving all extremities Procedures None Urinary Catheter: Yes Assessment to: Continue Soto insert reason: Obstruction/Retention Date of Insertion: Mar 08, 2017 Vascular Central Line Catheter: No A/P Assessment and Plan Weakness: Continue physical therapy, however patient refuses get out of bed majority of the time Nursing staff to get patient up out of bed at least 3 times daily Palliative care requested consult with psychiatry to see if patient has capacity to make decisions. Psychiatry evaluated patient states that he does not have capacity make his own decisions Palliative care discussed with family who is declining transition to comfort care, hospice. Dementia with inappropriate behavior, mood disorder improved Consulted psychiatry for further evaluation, who indicated that this is a frontal lobe dementia Discontinued Remeron Family states that he does not want his father receiving any antidepressants , antianxiety, antipsychotic medications Parkinson's disease: Patient has dementia and resting tremor. Chronic, stable. GI bleed with presenting of Upper GI bleed, patient with intermittent rectal bleeding: Residential Living Assistant consulted and Presumed hemorrhoids, continue Anusol HC as needed Presumed hemorrhoids Follow-up hemoglobin has remained stable Continue PPI. Protein calorie malnutrition: Improving PEG tube replaced 11/20/16 Consulted dietitian who indicated that patient may be converted to bolus feeding Jevity 1.5, 1.5, 360ml(1.5 cans)@ 0800, 1100, 1400 and 240ml(1-can)@ 1700 and 2000 Ensure Enlive 3 times a day since pudding 3 times a day Prealbumin level 25 Hypotension with episodes of hypertension: Stable Continue monitor blood pressure Continue Midodrine. obstructive uropathy: Resolved. With recurrent urinary tract infections. Treat only if symptomatic Suprapubic catheter in place, changed monthly, last changed 03/08/17 Seborrhea dermatitis, recurrent Counseled nursing staff on proper hygiene to avoid recurrence Responds well to Hydrocortisone cream. Continue to use when active DVT prophylaxis: Sequential compression devices Avoid chemical prophylaxis secondary to intermittent rectal bleeding Records were reviewed. Awaiting case management discharge planning, No change in current treatment plan. Discharge Planning Discharge planning per case management. Jaguar Walker Mar 13, 2017 09:32
[2017-03-13] MEDS: ALLOPURINOL 100 MG TAB PEG SCH (10:00)
[2017-03-13] MEDS: LANSOPRAZOLE SOLUTAB 30 MG TAB PEG SCH (10:00)
[2017-03-14 04:00] VITALS: BP 112/69; PULSE 81; RESP 20; TEMP 97.1; O2SAT 98
[2017-03-14] MEDS: MIDODRINE 5 MG TAB PEG SCH ×3 (06:00→17:00)
[2017-03-14 08:00] VITALS: BP 131/71; PULSE 79; RESP 19; TEMP 97.5; O2SAT 96
[2017-03-14] MEDS: FREE WATER G-TUBE SCH (08:32)
[2017-03-14] MEDS: ALLOPURINOL 100 MG TAB PEG SCH (08:56)
[2017-03-14] MEDS: LANSOPRAZOLE SOLUTAB 30 MG TAB PEG SCH (08:56)
--- NOTE | 2017-03-14 11:37 | HHI.PR ---
Subjective Remarks Patient seen and examined today for follow-up on profound weakness, dementia. Patient not cooperating with physical therapy. He is not getting out of bed. Denies any new complaints. No change in clinical status. Objective Vitals Vital Signs Date Time Temp Pulse Resp B/P (MAP) Pulse Ox O2 Delivery O2 Flow Rate FiO2 03/14/17 08:00 97.5 79 19 131/71 (91) 96 03/14/17 04:00 97.1 81 20 112/69 (83) 98 I/O 03/13/17 03/13/17 03/13/17 03/14/17 03/14/17 03/14/17 07:00 15:00 23:00 07:00 15:00 23:00 Intake Total 540 ml 2120 ml 0 ml Output Total 400 ml 475 ml 900 ml Balance 140 ml -475 ml 2120 ml -900 ml Intake Oral 0 ml Tube Feeding 240 ml 1320 ml Tube Irrigant 300 ml 0 ml Other 800 ml Output Urine Total 400 ml 475 ml 900 ml # Bowel Movements 1 0 Objective Remarks GENERAL: Well-developed, well-nourished, in no acute distress. HEENT: Head is normocephalic without any lesions or masses noted. Facial features are symmetric. Eyes: Extraocular muscles are intact. Conjunctivae were clear. NECK: Trachea midline no deviation. CARDIAC: Regular rhythm, regular rate. S1/S2 are heard. No murmurs gallops or rubs. LUNGS: Clear to auscultation bilaterally. No wheeze, rhonchi or rales. No use of accessory muscles on inspiration or expiration. ABDOMEN: Soft, nontender. Nondistended. Bowel sounds heard in all 4 quadrants. No organomegaly or masses. Negative rebound, negative guarding, suprapubic catheter in place, PEG tube in place with no signs of infection, EXTREMITIES: No edema, pulses are equal bilaterally. No cyanosis or clubbing NEUROLOGY: Mood and affect appear appropriate. Cranial nerves II through XII grossly intact. Moving all extremities Procedures None Urinary Catheter: Yes Assessment to: Continue Soto insert reason: Obstruction/Retention Date of Insertion: Mar 08, 2017 Vascular Central Line Catheter: No A/P Assessment and Plan Weakness: Continue physical therapy, however patient refuses get out of bed majority of the time Nursing staff to get patient up out of bed at least 3 times daily Palliative care requested consult with psychiatry to see if patient has capacity to make decisions. Psychiatry evaluated patient states that he does not have capacity make his own decisions Palliative care discussed with family who is declining transition to comfort care, hospice. Dementia with inappropriate behavior, mood disorder improved Consulted psychiatry for further evaluation, who indicated that this is a frontal lobe dementia Discontinued Octavion Family states that he does not want his father receiving any antidepressants , antianxiety, antipsychotic medications Parkinson's disease: Patient has dementia and resting tremor. Chronic, stable. 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 Protein calorie malnutrition: Improving PEG tube replaced 11/20/16 Consulted dietitian who indicated that patient may be converted to bolus feeding Jevity 1.5, 1.5, 360ml(1.5 cans)@ 0800, 1100, 1400 and 240ml(1-can)@ 1700 and 2000 Ensure Enlive 3 times a day since pudding 3 times a day Prealbumin level 25 Hypotension with episodes of hypertension: Stable Continue monitor blood pressure Continue Midodrine. obstructive uropathy: Resolved. With recurrent urinary tract infections. Treat only if symptomatic Suprapubic catheter in place, changed monthly, last changed 03/08/17 Seborrhea dermatitis, recurrent Counseled nursing staff on proper hygiene to avoid recurrence Responds well to Hydrocortisone cream. Continue to use when active DVT prophylaxis: Sequential compression devices Avoid chemical prophylaxis secondary to intermittent rectal bleeding Records were reviewed. No change in current treatment plan. Awaiting case management discharge planning, Discharge Planning Discharge planning per case management. Jaguar Walker Mar 14, 2017 11:36
[2017-03-14 20:00] VITALS: BP 99/58; PULSE 73; RESP 20; TEMP 95.4; O2SAT 96
[2017-03-15] MEDS: MIDODRINE 5 MG TAB PEG SCH ×3 (05:47→18:06)
[2017-03-15 08:00] VITALS: BP 110/67; PULSE 77; RESP 14; TEMP 97.3; O2SAT 96
--- NOTE | 2017-03-15 08:45 | HHI.PR ---
Subjective Remarks Patient seen and examined today for follow-up on profound weakness, dementia. Patient denies any new complaints. No change in clinical status. Objective Vitals Vital Signs Date Time Temp Pulse Resp B/P (MAP) Pulse Ox O2 Delivery O2 Flow Rate FiO2 03/15/17 08:00 97.3 77 14 110/67 (81) 96 03/14/17 20:00 95.4 73 20 99/58 (72) 96 I/O 03/14/17 03/14/17 03/14/17 03/15/17 03/15/17 03/15/17 07:00 15:00 23:00 07:00 15:00 23:00 Intake Total 0 ml 440 ml Output Total 900 ml 300 ml 750 ml Balance -900 ml -300 ml -310 ml Intake Oral 0 ml 0 ml Tube Feeding 240 ml Other 200 ml Output Urine Total 900 ml 300 ml 750 ml Gastric Drainage Total 0 ml # Bowel Movements 0 1 1 Objective Remarks GENERAL: Well-developed, well-nourished, in no acute distress. HEENT: Head is normocephalic without any lesions or masses noted. Facial features are symmetric. Eyes: Extraocular muscles are intact. Conjunctivae were clear. NECK: Trachea midline no deviation. CARDIAC: Regular rhythm, regular rate. S1/S2 are heard. No murmurs gallops or rubs. LUNGS: Clear to auscultation bilaterally. No wheeze, rhonchi or rales. No use of accessory muscles on inspiration or expiration. ABDOMEN: Soft, nontender. Nondistended. Bowel sounds heard in all 4 quadrants. No organomegaly or masses. Negative rebound, negative guarding, suprapubic catheter in place, PEG tube in place with no signs of infection, EXTREMITIES: No edema, pulses are equal bilaterally. No cyanosis or clubbing NEUROLOGY: Mood and affect appear appropriate. Cranial nerves II through XII grossly intact. Moving all extremities Procedures None Urinary Catheter: Yes Assessment to: Continue Soto insert reason: Obstruction/Retention Date of Insertion: Mar 08, 2017 Vascular Central Line Catheter: No A/P Assessment and Plan Weakness: Continue physical therapy, however patient refuses get out of bed majority of the time Nursing staff to get patient up out of bed at least 3 times daily Palliative care requested consult with psychiatry to see if patient has capacity to make decisions. Psychiatry evaluated patient states that he does not have capacity make his own decisions Palliative care discussed with family who is declining transition to comfort care, hospice. Dementia with inappropriate behavior, mood disorder improved Consulted psychiatry for further evaluation, who indicated that this is a frontal lobe dementia Discontinued Cielo Family states that he does not want his father receiving any antidepressants , antianxiety, antipsychotic medications Parkinson's disease: Patient has dementia and resting tremor. Chronic, stable. GI bleed with presenting of Upper GI bleed, patient with intermittent rectal bleeding: Policy Cancellation Clerk consulted and Presumed hemorrhoids, continue Anusol HC as needed Presumed hemorrhoids Follow-up hemoglobin has remained stable Continue PPI. Protein calorie malnutrition: Improving PEG tube replaced 11/20/16 Consulted dietitian who indicated that patient may be converted to bolus feeding Jevity 1.5, 1.5, 360ml(1.5 cans)@ 0800, 1100, 1400 and 240ml(1-can)@ 1700 and 2000 Ensure Enlive 3 times a day since pudding 3 times a day Prealbumin level 25 Hypotension with episodes of hypertension: Stable Continue monitor blood pressure Continue Midodrine. obstructive uropathy: Resolved. With recurrent urinary tract infections. Treat only if symptomatic Suprapubic catheter in place, changed monthly, last changed 03/08/17 Seborrhea dermatitis, recurrent Counseled nursing staff on proper hygiene to avoid recurrence Responds well to Hydrocortisone cream. Continue to use when active DVT prophylaxis: Sequential compression devices Avoid chemical prophylaxis secondary to intermittent rectal bleeding Records were reviewed. Awaiting case management discharge planning, No change in current treatment plan. Discharge Planning Discharge planning per case management. Jaguar Walker Mar 15, 2017 08:45
[2017-03-15] MEDS: ALLOPURINOL 100 MG TAB PEG SCH (08:57)
[2017-03-15] MEDS: LANSOPRAZOLE SOLUTAB 30 MG TAB PEG SCH (08:58)
[2017-03-15] MEDS: FREE WATER G-TUBE SCH (09:00)
[2017-03-15 20:00] VITALS: BP 103/58; PULSE 84; RESP 18; TEMP 97.1; O2SAT 94
[2017-03-16] MEDS: MIDODRINE 5 MG TAB PEG SCH ×3 (06:07→17:44)
[2017-03-16 08:00] VITALS: BP 122/59; PULSE 62; RESP 18; TEMP 97; O2SAT 96
[2017-03-16] MEDS: FREE WATER G-TUBE SCH ×2 (09:00→17:44)
[2017-03-16] MEDS: ALLOPURINOL 100 MG TAB PEG SCH (10:38)
[2017-03-16] MEDS: LANSOPRAZOLE SOLUTAB 30 MG TAB PEG SCH (10:38)
--- NOTE | 2017-03-16 11:09 | HHI.PR ---
Subjective Remarks Patient seen and examined today for follow-up on profound weakness, dementia. Patient denies any new complaints. No change in clinical status. Objective Vitals Vital Signs Date Time Temp Pulse Resp B/P (MAP) Pulse Ox O2 Delivery O2 Flow Rate FiO2 03/16/17 08:00 97.0 62 18 122/59 (80) 96 03/15/17 20:00 97.1 84 18 103/58 (73) 94 I/O 03/15/17 03/15/17 03/15/17 03/16/17 03/16/17 03/16/17 07:00 15:00 23:00 07:00 15:00 23:00 Intake Total 440 ml 1380 ml 820 ml 120 ml Output Total 750 ml 850 ml 450 ml Balance -310 ml 1380 ml -30 ml -330 ml Intake Oral 0 ml 0 ml Tube Feeding 240 ml 1080 ml 480 ml Tube Irrigant 240 ml 120 ml Other 200 ml 300 ml 100 ml Output Urine Total 750 ml 850 ml 450 ml Gastric Drainage Total 0 ml # Bowel Movements 1 1 Objective Remarks GENERAL: Well-developed, well-nourished, in no acute distress. HEENT: Head is normocephalic without any lesions or masses noted. Facial features are symmetric. Eyes: Extraocular muscles are intact. Conjunctivae were clear. NECK: Trachea midline no deviation. CARDIAC: Regular rhythm, regular rate. S1/S2 are heard. No murmurs gallops or rubs. LUNGS: Clear to auscultation bilaterally. No wheeze, rhonchi or rales. No use of accessory muscles on inspiration or expiration. ABDOMEN: Soft, nontender. Nondistended. Bowel sounds heard in all 4 quadrants. No organomegaly or masses. Negative rebound, negative guarding, suprapubic catheter in place, PEG tube in place with no signs of infection, EXTREMITIES: No edema, pulses are equal bilaterally. No cyanosis or clubbing NEUROLOGY: Mood and affect appear appropriate. Cranial nerves II through XII grossly intact. Moving all extremities Procedures None Urinary Catheter: Yes Assessment to: Continue Soto insert reason: Obstruction/Retention Date of Insertion: Mar 08, 2017 Vascular Central Line Catheter: No A/P Assessment and Plan Weakness: Continue physical therapy, however patient refuses get out of bed majority of the time Nursing staff to get patient up out of bed at least 3 times daily Palliative care requested consult with psychiatry to see if patient has capacity to make decisions. Psychiatry evaluated patient states that he does not have capacity make his own decisions Palliative care discussed with family who is declining transition to comfort care, hospice. Dementia with inappropriate behavior, mood disorder improved Consulted psychiatry for further evaluation, who indicated that this is a frontal lobe dementia Discontinued Remanhn Family states that he does not want his father receiving any antidepressants , antianxiety, antipsychotic medications Parkinson's disease: Patient has dementia and resting tremor. Chronic, stable. GI bleed with presenting of Upper GI bleed, patient with intermittent rectal bleeding: Delivery Truck Driver Heavy consulted and Presumed hemorrhoids, continue Anusol HC as needed Presumed hemorrhoids Follow-up hemoglobin has remained stable Continue PPI. Protein calorie malnutrition: Improving PEG tube replaced 11/20/16 Consulted dietitian who indicated that patient may be converted to bolus feeding Jevity 1.5, 1.5, 360ml(1.5 cans)@ 0800, 1100, 1400 and 240ml(1-can)@ 1700 and 2000 Ensure Enlive 3 times a day since pudding 3 times a day Prealbumin level 25 Hypotension with episodes of hypertension: Stable Continue monitor blood pressure Continue Midodrine. obstructive uropathy: Resolved. With recurrent urinary tract infections. Treat only if symptomatic Suprapubic catheter in place, changed monthly, last changed 03/08/17 Seborrhea dermatitis, recurrent Counseled nursing staff on proper hygiene to avoid recurrence Responds well to Hydrocortisone cream. Continue to use when active DVT prophylaxis: Sequential compression devices Avoid chemical prophylaxis secondary to intermittent rectal bleeding Records were reviewed. No change in current treatment plan. Awaiting case management discharge planning, Discharge Planning Discharge planning per case management. Jaguar Walker Mar 16, 2017 11:09
[2017-03-16 20:00] VITALS: BP 128/78; PULSE 79; RESP 17; TEMP 98.1; O2SAT 94
[2017-03-17] MEDS: MIDODRINE 5 MG TAB PEG SCH ×3 (06:22→16:35)
[2017-03-17] MEDS: ALLOPURINOL 100 MG TAB PEG SCH (07:45)
[2017-03-17] MEDS: LANSOPRAZOLE SOLUTAB 30 MG TAB PEG SCH (07:45)
[2017-03-17 08:00] VITALS: BP 104/57; PULSE 64; RESP 16; TEMP 97; O2SAT 94
--- NOTE | 2017-03-17 08:21 | HHI.PR ---
Subjective Remarks Patient seen and examined today for follow-up on profound weakness, dementia. Patient denies any new complaints. No change in clinical status. No acute events overnight Objective Vitals Vital Signs Date Time Temp Pulse Resp B/P (MAP) Pulse Ox O2 Delivery O2 Flow Rate FiO2 03/16/17 20:00 98.1 79 17 128/78 (95) 94 I/O 03/16/17 03/16/17 03/16/17 03/17/17 03/17/17 03/17/17 07:00 15:00 23:00 07:00 15:00 23:00 Intake Total 120 ml Output Total 450 ml 550 ml 800 ml Balance -330 ml -550 ml -800 ml Intake Oral 0 ml Tube Irrigant 120 ml Output Urine Total 450 ml 550 ml 800 ml # Bowel Movements 0 1 1 Objective Remarks GENERAL: Well-developed, well-nourished, in no acute distress. HEENT: Head is normocephalic without any lesions or masses noted. Facial features are symmetric. Eyes: Extraocular muscles are intact. Conjunctivae were clear. NECK: Trachea midline no deviation. CARDIAC: Regular rhythm, regular rate. S1/S2 are heard. No murmurs gallops or rubs. LUNGS: Clear to auscultation bilaterally. No wheeze, rhonchi or rales. No use of accessory muscles on inspiration or expiration. ABDOMEN: Soft, nontender. Nondistended. Bowel sounds heard in all 4 quadrants. No organomegaly or masses. Negative rebound, negative guarding, suprapubic catheter in place, PEG tube in place with no signs of infection, EXTREMITIES: No edema, pulses are equal bilaterally. No cyanosis or clubbing NEUROLOGY: Mood and affect appear appropriate. Cranial nerves II through XII grossly intact. Moving all extremities Procedures None Urinary Catheter: Yes (suprapubic catheter) Assessment to: Continue Soto insert reason: Obstruction/Retention Date of Insertion: Mar 08, 2017 Vascular Central Line Catheter: No A/P Assessment and Plan Weakness: Continue physical therapy, however patient refuses get out of bed majority of the time Nursing staff to get patient up out of bed at least 3 times daily Palliative care requested consult with psychiatry to see if patient has capacity to make decisions. Psychiatry evaluated patient states that he does not have capacity make his own decisions Palliative care discussed with family who is declining transition to comfort care, hospice. Dementia with inappropriate behavior, mood disorder improved Consulted psychiatry for further evaluation, who indicated that this is a frontal lobe dementia Discontinued Remeron Family states that he does not want his father receiving any antidepressants , antianxiety, antipsychotic medications Parkinson's disease: Patient has dementia and resting tremor. Chronic, stable. GI bleed with presenting of Upper GI bleed, patient with intermittent rectal bleeding: Mattress Spring Encaser consulted and Presumed hemorrhoids, continue Anusol HC as needed Presumed hemorrhoids Follow-up hemoglobin has remained stable Continue PPI. Protein calorie malnutrition: Improving PEG tube replaced 11/20/16 Consulted dietitian who indicated that patient may be converted to bolus feeding Jevity 1.5, 1.5, 360ml(1.5 cans)@ 0800, 1100, 1400 and 240ml(1-can)@ 1700 and 2000 Ensure Enlive 3 times a day since pudding 3 times a day Prealbumin level 25 Hypotension with episodes of hypertension: Stable Continue monitor blood pressure Continue Midodrine. obstructive uropathy: Resolved. With recurrent urinary tract infections. Treat only if symptomatic Suprapubic catheter in place, changed monthly, last changed 03/08/17 Seborrhea dermatitis, recurrent Counseled nursing staff on proper hygiene to avoid recurrence Responds well to Hydrocortisone cream. Continue to use when active DVT prophylaxis: Sequential compression devices Avoid chemical prophylaxis secondary to intermittent rectal bleeding Records were reviewed. Awaiting case management discharge planning, No change in current treatment plan. Discharge Planning Discharge planning per case management. Jaguar Walker Mar 17, 2017 08:21
[2017-03-17 20:00] VITALS: BP 100/60; PULSE 70; RESP 18; TEMP 97.4; O2SAT 95
[2017-03-18] MEDS: MIDODRINE 5 MG TAB PEG SCH ×3 (06:03→17:00)
[2017-03-18 08:00] VITALS: BP 104/62; PULSE 68; RESP 20; TEMP 98.4; O2SAT 95
[2017-03-18] MEDS: FREE WATER G-TUBE SCH (09:00)
[2017-03-18] MEDS: LANSOPRAZOLE SOLUTAB 30 MG TAB PEG SCH (09:06)
[2017-03-18] MEDS: ALLOPURINOL 100 MG TAB PEG SCH (09:09)
--- NOTE | 2017-03-18 11:46 | HHI.PR ---
Subjective Remarks Follow-up on profound weakness, dementia. Patient seen and examined, lying in bed comfortably. RN at bedside. No reports of any acute changes overnight. Denies any pain. Following commands appropriately. Tolerating TF. Denies any abdominal pain, nausea or vomiting. Afebrile. Objective Vitals Vital Signs Date Time Temp Pulse Resp B/P (MAP) Pulse Ox O2 Delivery O2 Flow Rate FiO2 03/18/17 08:00 98.4 68 20 104/62 (76) 95 03/17/17 20:00 97.4 70 18 100/60 (73) 95 I/O 03/17/17 03/17/17 03/17/17 03/18/17 03/18/17 03/18/17 07:00 15:00 23:00 07:00 15:00 23:00 Intake Total 440 ml Output Total 800 ml 350 ml 600 ml Balance -800 ml -350 ml -160 ml Intake Oral 0 ml Tube Feeding 240 ml Other 200 ml Output Urine Total 800 ml 350 ml 600 ml Gastric Drainage Total 0 ml # Bowel Movements 1 1 1 2 Imaging Last Impressions Gastrostomy Tube Placement 11/20/16 0000 Signed Impressions: Service Date/Time: Sunday, November 20, 2016 14:06 - CONCLUSION: Uncomplicated gastrostomy tube placement as above. Cholelithiasis. Nitish Felton Jr., MD Abdomen/Pelvis CT 03/06/16 0000 Signed Impressions: Service Date/Time: Sunday, March 06, 2016 22:27 - CONCLUSION: 1. Resolution of right sided hydronephrosis. 2. Renal cysts. 3. Bladder is decompressed and there is circumferential bladder wall thickening and intraluminal air identified. A cystitis is not excluded. 4. A large stool ball is noted within the rectum. 5. Cholelithiasis. 6. Nonobstructing left renal calculus. Speedy Noriega MD Abdomen X-Ray 01/30/16 0000 Signed Impressions: Service Date/Time: Saturday, January 30, 2016 14:17 - CONCLUSION: Satisfactory PEG tube positioning Mikael Valladares MD Objective Remarks GENERAL: Well-developed, frail male patient lying in bed in NAD. SKIN: Warm and dry. No rash. Dry skin. HEENT: Normocephalic. Atraumatic. Pupils equal and round. No scleral icterus. No injection or drainage. No nasal bleeding or discharge. Mucous membranes pink and moist. EOMs intact. NECK: Supple. Trachea midline. CARDIOVASCULAR: Regular rate and rhythm. S1, S2 noted. No murmur appreciated. RESPIRATORY: No accessory muscle use. Clear to auscultation. Breath sounds equal bilaterally. GASTROINTESTINAL: Abdomen soft, non-tender, nondistended. Normoactive bowel sounds x4. No guarding noted. PEG tube in place, no drainage noted, no erythema , c/d/i. MUSCULOSKELETAL: No obvious deformities. Extremities without clubbing, cyanosis , or edema. NEUROLOGICAL: Awake and alert. No obvious cranial nerve deficits. Moving all extremities. PSYCHIATRIC: Appropriate mood and affect. Procedures None Date of Insertion: Mar 08, 2017 A/P Problem List: (1) Decreased urine output ICD Code: R34 - Anuria and oliguria Status: Acute (2) Prerenal azotemia ICD Code: R79.89 - Other specified abnormal findings of blood chemistry Status: Acute (3) Hematuria ICD Code: R31.9 - Hematuria, unspecified Status: Acute Assessment and Plan Weakness Continue physical therapy. Has been participating. Recommendations for SNF at discharge. Nursing staff to get patient up out of bed at least 3 times daily. Palliative care requested consult with psychiatry to see if patient has capacity to make decisions. Psychiatry evaluated patient states that he does not have capacity make his own decisions. Palliative care discussed with family who is declining transition to comfort care, hospice. Dementia with inappropriate behavior, mood disorder improved. Consulted psychiatry for further evaluation, who indicated that this is a frontal lobe dementia. Discontinued Remeron. Family states that he does not want his father receiving any antidepressants , antianxiety, antipsychotic medications Parkinson's disease: Patient has dementia and resting tremor. Chronic, stable. GI bleed with presenting of Upper GI bleed, patient with intermittent rectal bleeding. Stable. Financial Analyst Intern previously consulted, presumed hemorrhoids. Follow-up hemoglobin has remained stable. Follow intermittently. No signs of bleeding at this time. Continue PPI. Protein calorie malnutrition: Improving PEG tube replaced 11/20/16 Consulted dietitian who indicated that patient may be converted to bolus feeding Jevity 1.5, 1.5, 360ml(1.5 cans)@ 0800, 1100, 1400 and 240ml(1-can)@ 1700 and 2000 Ensure Enlive 3 times a day since pudding 3 times a day Prealbumin level 29. Hypotension with episodes of hypertension: Stable Continue monitor blood pressure Continue Midodrine. Obstructive uropathy: Resolved. With recurrent urinary tract infections. Treat only if symptomatic Suprapubic catheter in place, changed monthly, last changed 03/08/17. Seborrhea dermatitis, recurrent Continue to encourage proper hygiene to avoid recurrence Responds well to Hydrocortisone cream, Continue to use when active. DVT prophylaxis: SCDs. Avoid chemical prophylaxis secondary to intermittent rectal bleeding. Discharge Planning Discharge planning per case management. Marium Abdi Mar 18, 2017 11:46
[2017-03-18 12:08] VITALS: BP 105/64; PULSE 77
[2017-03-18 20:00] VITALS: BP 106/60; PULSE 74; RESP 18; TEMP 97; O2SAT 94
[2017-03-19] MEDS: MIDODRINE 5 MG TAB PEG SCH ×3 (05:18→16:21)
[2017-03-19 07:50] VITALS: BP 122/57; PULSE 66; RESP 20; TEMP 98.1; O2SAT 97
--- NOTE | 2017-03-19 08:02 | HHI.PR ---
Subjective Remarks Follow-up on profound weakness, dementia. Patient seen and examined, lying in bed comfortably. Smiling and pleasant. Following commands. No new change in clinical condition. Objective Vitals Vital Signs Date Time Temp Pulse Resp B/P (MAP) Pulse Ox O2 Delivery O2 Flow Rate FiO2 03/18/17 20:00 97.0 74 18 106/60 (75) 94 03/18/17 12:08 77 105/64 (78) I/O 03/18/17 03/18/17 03/18/17 03/19/17 03/19/17 03/19/17 07:00 15:00 23:00 07:00 15:00 23:00 Intake Total 440 ml 2210 ml Output Total 600 ml 825 ml 950 ml Balance -160 ml -825 ml 2210 ml -950 ml Intake Oral 0 ml Tube Feeding 240 ml 1320 ml Tube Irrigant 890 ml Other 200 ml Output Urine Total 600 ml 825 ml 950 ml Gastric Drainage Total 0 ml # Bowel Movements 2 1 1 Imaging Last Impressions Gastrostomy Tube Placement 11/20/16 0000 Signed Impressions: Service Date/Time: Sunday, November 20, 2016 14:06 - CONCLUSION: Uncomplicated gastrostomy tube placement as above. Cholelithiasis. Nitish Felton Jr., MD Abdomen/Pelvis CT 03/06/16 0000 Signed Impressions: Service Date/Time: Sunday, March 06, 2016 22:27 - CONCLUSION: 1. Resolution of right sided hydronephrosis. 2. Renal cysts. 3. Bladder is decompressed and there is circumferential bladder wall thickening and intraluminal air identified. A cystitis is not excluded. 4. A large stool ball is noted within the rectum. 5. Cholelithiasis. 6. Nonobstructing left renal calculus. Speedy Noriega MD Abdomen X-Ray 01/30/16 0000 Signed Impressions: Service Date/Time: Saturday, January 30, 2016 14:17 - CONCLUSION: Satisfactory PEG tube positioning Mikael Valladares MD Objective Remarks GENERAL: Well-developed, frail male patient lying in bed in NAD. SKIN: Warm and dry. No rash. Dry skin. HEENT: Normocephalic. Atraumatic. Pupils equal and round. No scleral icterus. No injection or drainage. No nasal bleeding or discharge. Mucous membranes pink and moist. EOMs intact. NECK: Supple. Trachea midline. CARDIOVASCULAR: Regular rate and rhythm. S1, S2 noted. No murmur appreciated. RESPIRATORY: No accessory muscle use. Clear to auscultation. Breath sounds equal bilaterally. GASTROINTESTINAL: Abdomen soft, non-tender, nondistended. Normoactive bowel sounds x4. No guarding noted. PEG tube in place, no drainage noted, no erythema , c/d/i. MUSCULOSKELETAL: No obvious deformities. Extremities without clubbing, cyanosis , or edema. NEUROLOGICAL: Awake and alert. No obvious cranial nerve deficits. Moving all extremities. PSYCHIATRIC: Appropriate mood and affect. Procedures None Date of Insertion: Mar 08, 2017 A/P Problem List: (1) Decreased urine output ICD Code: R34 - Anuria and oliguria Status: Acute (2) Prerenal azotemia ICD Code: R79.89 - Other specified abnormal findings of blood chemistry Status: Acute (3) Hematuria ICD Code: R31.9 - Hematuria, unspecified Status: Acute Assessment and Plan Weakness Continue physical therapy. Has been participating. Recommendations for SNF at discharge. Nursing staff to get patient up out of bed at least 3 times daily. Palliative care requested consult with psychiatry to see if patient has capacity to make decisions. Psychiatry evaluated patient states that he does not have capacity make his own decisions. Palliative care discussed with family who is declining transition to comfort care, hospice. Dementia with inappropriate behavior, mood disorder improved. Consulted psychiatry for further evaluation, who indicated that this is a frontal lobe dementia. Discontinued Remeron. Family states that he does not want his father receiving any antidepressants , antianxiety, antipsychotic medications Parkinson's disease: Patient has dementia and resting tremor. Chronic, stable. GI bleed with presenting of Upper GI bleed, patient with intermittent rectal bleeding. Stable. Food Expeditor previously consulted, presumed hemorrhoids. Follow-up hemoglobin has remained stable. Follow intermittently. No signs of bleeding at this time. Continue PPI. Protein calorie malnutrition: Improving PEG tube replaced 11/20/16 Consulted dietitian who indicated that patient may be converted to bolus feeding Jevity 1.5, 1.5, 360ml(1.5 cans)@ 0800, 1100, 1400 and 240ml(1-can)@ 1700 and 2000 Ensure Enlive 3 times a day since pudding 3 times a day Prealbumin level 29. Hypotension with episodes of hypertension: Stable Continue monitor blood pressure Continue Midodrine. Obstructive uropathy: Resolved. With recurrent urinary tract infections. Treat only if symptomatic Suprapubic catheter in place, changed monthly, last changed 03/08/17. Seborrhea dermatitis, recurrent Continue to encourage proper hygiene to avoid recurrence Responds well to Hydrocortisone cream, Continue to use when active. DVT prophylaxis: SCDs. Avoid chemical prophylaxis secondary to intermittent rectal bleeding. Discharge Planning Discharge planning per case management. Marium Abdi Mar 19, 2017 08:02
[2017-03-19] MEDS: FREE WATER G-TUBE SCH (09:00)
[2017-03-19] MEDS: ALLOPURINOL 100 MG TAB PEG SCH (09:03)
[2017-03-19] MEDS: LANSOPRAZOLE SOLUTAB 30 MG TAB PEG SCH (09:03)
--- NOTE | 2017-03-19 15:18 | HHI.HCPN ---
Reason for visit a. To assist with evaluation and management of symptoms including:pain and debility b. To assist medical decision maker(s) with: better understanding of current medical conditions; weighing benefits/burdens of medical treatment options; making medical treatment decisions. Subjective/Interval History Patient seen and examined today, EMR reviewed, patient resting comfortably in bed, no family at bedside, arouses to verbal stimuli, nonverbal, nods his head yes or no to questions, much more interactive today compared to previous exam. Follows simple one step commands, BUE equal. Patient denies any pain or shortness of breath. Family/friend interactions Attempted to contact patient's son Orlando Edmond via telephone to provide a medical update, discuss goals of care, and present Hospice. Voicemail message left and Palliative care contact information provided. Telephone conference with patient's son Orlando Edmond at 1530, provided update, he verbalized AGGRESSIVE goals, he stated he is not interested in Hospice or changing his father's code status. Advance Directives Durable Power of Band Cutting Machine Operator: Copy in medical record Objective Vital Signs Date Time Temp Pulse Resp B/P (MAP) Pulse Ox O2 Delivery O2 Flow Rate FiO2 03/19/17 07:50 98.1 66 20 122/57 (78) 97 03/18/17 20:00 97.0 74 18 106/60 (75) 94 Intake & Output 03/19/17 03/19/17 07:00 19:00 Output Total 950 ml Balance -950 ml Output Urine Total 950 ml # Bowel Movements 1 . Physical Exam CONSTITUTIONAL/GENERAL: This is a a frail thin gentleman, eyes closed during the majority of exam, interacts with yes or no answers by nodding head, nonverbal refusing to speak TUBES/LINES/DRAINS: PEG tube SKIN: Seborrheic dermatitis on face. No wounds seen anteriorly. Skin temperature appropriate. Not diaphoretic. . ENT: Hearing grossly normal. Nose without bleeding or purulent drainage. CARDIOVASCULAR: Regular rate and rhythm without murmurs, gallops, or rubs. No JVD. Peripheral pulses symmetric. RESPIRATORY/CHEST: Symmetric, unlabored respirations. Clear to auscultation. Breath sounds equal bilaterally. No wheezes, rales, or rhonchi. GASTROINTESTINAL: Abdomen soft, non-tender, nondistended. No guarding. Bowel sounds present. PEG tube in place GENITOURINARY: Without palpable bladder distension. Suprapubic catheter. MUSCULOSKELETAL: Extremities without clubbing, cyanosis, or edema. No mottling or clubbing. NEUROLOGICAL: Awake and alert. Oriented to person and place. Moves all extremities. Resting tremors present. PSYCHIATRIC: Unable to assess secondary to patient's nonverbal status. Assessment and Plan Disease Oriented Problem List: (1) Frontotemporal dementia with behavioral disturbance (2) Dementia with behavioral disturbance (3) Protein-calorie malnutrition, mild (4) Essential tremor Symptom Scale: (1) Anxiety 0-10 Scale: Unable to quantify Comment: from dementia Pertinent Non-Medical Issues Psychosocial: Originally from [facility]. Moved to [place] and bought property. 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 Spiritual: Unknown. Legal: None known. Ethical issues impacting care: None known. Important Contacts POA. Orlando Edmond Prognosis 76 year old functionally declined rapidly 1 year ago, with hallucinations, agitations, diagnosed with frontal temporal dementia, on feeding tube and supra pubic catheter. Patient is at an ongoing risk for complications/setbacks secondary to multiple comorbidities and debilitated status. Patient would be Hospice appropriate if family was amenable and goals of care were comfort oriented. . Code Status: Full Code Plan * CODE STATUS: FULL CODE. * Legal decision maker: Patient is currently lacks the insight and judgment to make his own medical decisions. Patient's son Orlando Edmond is his designated POA. * GOALS: Unable to reach patient's son/POA, verbalized goals in the past have been aggressive. Voicemail left for patient's son Orlando Edmond to again visit GOC conversation awaiting return phone call. * Discussed patient's case with supervisor case loading Emre Al regarding placement issues and family's GOC. * Telephone conference with patient's son Orlando Edmond at 1530, provided update, he verbalized AGGRESSIVE goals, he stated he is not interested in Hospice or changing his father's code status. * SYMPTOM MANAGEMENT: * ==pain: Per nursing documentation utilizing a nonverbal pain scale patient has been free of pain. Currently acetaminophen 650mg PRN for pain or temp is ordered, last dose administered on 02/21/17 @ 0840. No recently utilized. No recommendations at this time. * ==debility: Secondary to clinical condition, refusal to participate, necessity for full assistance for transfers. PT working with patient and following. No recommendations at this time. * Palliative care will continue to follow during hospital course as condition evolves, to assist patient/family/decision-maker with understanding of medical conditions, weighing benefit/burdens of treatment options, for clarification of goals of treatment. Additionally will assist with symptoms of palliative concern. Attestation To help prompt me to consider important information that might be impacting today's encounter and assessment, information from prior notes written by myself or my colleagues may have been "brought forward" into today's note. My signature on this note, however, is an attestation that I personally performed the exam, history, and/or decision-making noted today, and, unless otherwise indicated, the interactions with patient, family, and staff as well as the review of records all occurred today. I also attest that the listed assessment and stated plan reflect my best clinical judgment today based on the combination of historical information, prior notes, and today's exam/ interactions. When time spent is documented, it refers only to time spent today by the signer, or if indicated, combined time spent today by collaborating physician/nurse practitioner. Gilma Goode Mar 19, 2017 15:18
[2017-03-19 20:00] VITALS: BP 131/75; PULSE 69; RESP 17; TEMP 98; O2SAT 95
[2017-03-20] MEDS: MIDODRINE 5 MG TAB PEG SCH ×3 (06:15→17:45)
[2017-03-20 07:50] VITALS: BP 109/59; PULSE 70; RESP 20; TEMP 96.8; O2SAT 95
[2017-03-20] MEDS: FREE WATER G-TUBE SCH (09:00)
[2017-03-20] MEDS: ALLOPURINOL 100 MG TAB PEG SCH (09:26)
[2017-03-20] MEDS: LANSOPRAZOLE SOLUTAB 30 MG TAB PEG SCH (09:27)
--- NOTE | 2017-03-20 11:39 | HHI.PR ---
Subjective Remarks Follow-up on profound weakness, dementia. Patient seen and examined lying in bed sleeping. Awakens to voice. Denies any complaints. Slept well. Following commands. No reports of any event overnight. Objective Vitals Vital Signs Date Time Temp Pulse Resp B/P (MAP) Pulse Ox O2 Delivery O2 Flow Rate FiO2 03/20/17 07:50 96.8 70 20 109/59 (76) 95 03/19/17 20:00 98.0 69 17 131/75 (93) 95 I/O 03/19/17 03/19/17 03/19/17 03/20/17 03/20/17 03/20/17 07:00 15:00 23:00 07:00 15:00 23:00 Intake Total 2220 ml Output Total 950 ml 900 ml 800 ml Balance -950 ml 1320 ml -800 ml Tube Feeding 1320 ml Tube Irrigant 900 ml Output Urine Total 950 ml 900 ml 800 ml # Bowel Movements 1 1 1 Imaging Last Impressions Gastrostomy Tube Placement 11/20/16 0000 Signed Impressions: Service Date/Time: Sunday, November 20, 2016 14:06 - CONCLUSION: Uncomplicated gastrostomy tube placement as above. Cholelithiasis. Nitish Felton Jr., MD Abdomen/Pelvis CT 03/06/16 0000 Signed Impressions: Service Date/Time: Sunday, March 06, 2016 22:27 - CONCLUSION: 1. Resolution of right sided hydronephrosis. 2. Renal cysts. 3. Bladder is decompressed and there is circumferential bladder wall thickening and intraluminal air identified. A cystitis is not excluded. 4. A large stool ball is noted within the rectum. 5. Cholelithiasis. 6. Nonobstructing left renal calculus. Speedy Noriega MD Abdomen X-Ray 01/30/16 0000 Signed Impressions: Service Date/Time: Saturday, January 30, 2016 14:17 - CONCLUSION: Satisfactory PEG tube positioning Mikael Valladares MD Objective Remarks GENERAL: Well-developed, frail male patient lying in bed in NAD. SKIN: Warm and dry. No rash. Dry skin. HEENT: Normocephalic. Atraumatic. Pupils equal and round. No scleral icterus. No injection or drainage. No nasal bleeding or discharge. Mucous membranes pink and moist. EOMs intact. NECK: Supple. Trachea midline. CARDIOVASCULAR: Regular rate and rhythm. S1, S2 noted. No murmur appreciated. RESPIRATORY: No accessory muscle use. Clear to auscultation. Breath sounds equal bilaterally. GASTROINTESTINAL: Abdomen soft, non-tender, nondistended. Normoactive bowel sounds x4. No guarding noted. PEG tube in place, no drainage noted, no erythema , c/d/i. MUSCULOSKELETAL: No obvious deformities. Extremities without clubbing, cyanosis , or edema. NEUROLOGICAL: Awake and alert. No obvious cranial nerve deficits. Moving all extremities. PSYCHIATRIC: Appropriate mood and affect. Procedures None Date of Insertion: Mar 08, 2017 A/P Problem List: (1) Decreased urine output ICD Code: R34 - Anuria and oliguria Status: Acute (2) Prerenal azotemia ICD Code: R79.89 - Other specified abnormal findings of blood chemistry Status: Acute (3) Hematuria ICD Code: R31.9 - Hematuria, unspecified Status: Acute Assessment and Plan Weakness Continue physical therapy. Has been participating. Recommendations for SNF at discharge. Nursing staff to get patient up out of bed at least 3 times daily. Palliative care requested consult with psychiatry to see if patient has capacity to make decisions. Psychiatry evaluated patient states that he does not have capacity make his own decisions. Palliative care discussed with family who is declining transition to comfort care, hospice. Dementia with inappropriate behavior, mood disorder improved. Consulted psychiatry for further evaluation, who indicated that this is a frontal lobe dementia. Discontinued Remeron. Family states that he does not want his father receiving any antidepressants , antianxiety, antipsychotic medications Parkinson's disease: Patient has dementia and resting tremor. Chronic, stable. GI bleed with presenting of Upper GI bleed, patient with intermittent rectal bleeding. Stable. Mold Construction Supervisor previously consulted, presumed hemorrhoids. Follow-up hemoglobin has remained stable. Follow intermittently. No signs of bleeding at this time. Continue PPI. Protein calorie malnutrition: Improving PEG tube replaced 11/20/16 Consulted dietitian who indicated that patient may be converted to bolus feeding Jevity 1.5, 1.5, 360ml(1.5 cans)@ 0800, 1100, 1400 and 240ml(1-can)@ 1700 and 2000 Ensure Enlive 3 times a day since pudding 3 times a day Prealbumin level 29. Will recheck labs tomorrow. Follow. Hypotension with episodes of hypertension: Stable Continue monitor blood pressure Continue Midodrine. Obstructive uropathy: Resolved. With recurrent urinary tract infections. Treat only if symptomatic Suprapubic catheter in place, changed monthly, last changed 03/08/17. Seborrhea dermatitis, recurrent Continue to encourage proper hygiene to avoid recurrence Responds well to Hydrocortisone cream, Continue to use when active. DVT prophylaxis: SCDs. Avoid chemical prophylaxis secondary to intermittent rectal bleeding. Discharge Planning Discharge planning per case management. Marium Abdi Mar 20, 2017 11:39
[2017-03-20 20:00] VITALS: BP 110/65; PULSE 68; RESP 20; TEMP 97; O2SAT 95
[2017-03-20 23:08] VITALS: BP 145/87; PULSE 67; RESP 20; TEMP 97.7; O2SAT 98
[2017-03-21] MEDS: MIDODRINE 5 MG TAB PEG SCH ×3 (04:44→17:00)
[2017-03-21 05:28] LABS: BASOPHIL # 0.1 TH/MM3 (0-0.2); BASOPHIL % 0.7 % (0.0-2.0); EOSINOPHIL # 0.1 TH/MM3 (0-0.4); EOSINOPHIL % 1.8 % (0.0-4.0); HEMATOCRIT 46.8 % (39.0-51.0); HEMO FLAGS DIFF FINAL; LYMPH % 37.9 % (9.0-44.0); MEAN CELL VOLUME 86.3 FL (80.0-100.0); MEAN CORPUSCULAR HEMOGLOBIN 28.1 PG (27.0-34.0); MEAN CORPUSCULAR HGB CONC 32.6 % (32.0-36.0); MONO % 7.7 % (0.0-8.0); NEUT % 51.9 % (16.0-70.0); PLATELET COUNT 196 TH/MM3 (150-450); RED BLOOD COUNT 5.42 MIL/MM3 (4.50-5.90); RED CELL DISTRIBUTION WIDTH 15.4 % (11.6-17.2); WHITE BLOOD COUNT 7.8 TH/MM3 (4.0-11.0)
[2017-03-21 05:39] LABS: CHLORIDE 101 MEQ/L (98-107); POTASSIUM 4.1 MEQ/L (3.5-5.1); SODIUM (NA) 138 MEQ/L (136-145)
[2017-03-21 05:45] LABS: ANION GAP 5 MEQ/L (5-15); BICARBONATE 31.6 MEQ/L (21.0-32.0); BLOOD UREA NITROGEN 24 MG/DL (7-18)
[2017-03-21 05:48] LABS: ALT (GPT) 19 U/L (12-78); AST (GOT) 25 U/L (15-37); GLOMERULAR FILTRATION RATE 81 ML/MIN (>89)
[2017-03-21 05:50] LABS: TOTAL BILIRUBIN ADULT 0.5 MG/DL (0.2-1.0)
[2017-03-21 05:51] LABS: ALKALINE PHOSPHATASE 111 U/L (45-117)
[2017-03-21] MEDS: FREE WATER G-TUBE SCH (07:42)
[2017-03-21] MEDS: ALLOPURINOL 100 MG TAB PEG SCH (07:42)
[2017-03-21] MEDS: LANSOPRAZOLE SOLUTAB 30 MG TAB PEG SCH (07:42)
[2017-03-21 08:42] VITALS: BP 116/59; PULSE 62; RESP 18; TEMP 97.8; O2SAT 95
--- NOTE | 2017-03-21 08:58 | HHI.PR ---
Subjective Remarks Follow-up on profound weakness, dementia. Patient seen and examined lying in bed , awake and alert. WELDER PRODUCTION LINE COMBINATION at bedside. Denies any new acute complaints. No reports of acute event overnight. No change in clinical condition. Following commands. VSS. Afebrile. Objective Vitals Vital Signs Date Time Temp Pulse Resp B/P (MAP) Pulse Ox O2 Delivery O2 Flow Rate FiO2 03/21/17 08:42 97.8 62 18 116/59 (78) 95 03/20/17 20:00 97.0 68 20 110/65 (80) 95 I/O 03/20/17 03/20/17 03/20/17 03/21/17 03/21/17 03/21/17 07:00 15:00 23:00 07:00 15:00 23:00 Intake Total 440 ml 100 ml Output Total 800 ml 900 ml 600 ml Balance -800 ml -460 ml -500 ml Tube Feeding 240 ml Other 200 ml 100 ml Output Urine Total 800 ml 900 ml 600 ml # Bowel Movements 1 4 1 Result Diagram: 03/21/17 0437 03/21/17 0437 Imaging Last Impressions Gastrostomy Tube Placement 11/20/16 0000 Signed Impressions: Service Date/Time: Sunday, November 20, 2016 14:06 - CONCLUSION: Uncomplicated gastrostomy tube placement as above. Cholelithiasis. Nitish Felton Jr., MD Abdomen/Pelvis CT 03/06/16 0000 Signed Impressions: Service Date/Time: Sunday, March 06, 2016 22:27 - CONCLUSION: 1. Resolution of right sided hydronephrosis. 2. Renal cysts. 3. Bladder is decompressed and there is circumferential bladder wall thickening and intraluminal air identified. A cystitis is not excluded. 4. A large stool ball is noted within the rectum. 5. Cholelithiasis. 6. Nonobstructing left renal calculus. Speedy Noriega MD Abdomen X-Ray 01/30/16 0000 Signed Impressions: Service Date/Time: Saturday, January 30, 2016 14:17 - CONCLUSION: Satisfactory PEG tube positioning Mikael Valladares MD Objective Remarks GENERAL: Well-developed, frail male patient lying in bed in NAD. SKIN: Warm and dry. No rash. Dry skin. HEENT: Normocephalic. Atraumatic. Pupils equal and round. No scleral icterus. No injection or drainage. No nasal bleeding or discharge. Mucous membranes pink and moist. EOMs intact. NECK: Supple. Trachea midline. CARDIOVASCULAR: Regular rate and rhythm. S1, S2 noted. No murmur appreciated. RESPIRATORY: No accessory muscle use. Clear to auscultation. Breath sounds equal bilaterally. GASTROINTESTINAL: Abdomen soft, non-tender, nondistended. Normoactive bowel sounds x4. No guarding noted. PEG tube in place, no drainage noted, no erythema , c/d/i. MUSCULOSKELETAL: No obvious deformities. Extremities without clubbing, cyanosis , or edema. NEUROLOGICAL: Awake and alert. No obvious cranial nerve deficits. Moving all extremities. PSYCHIATRIC: Appropriate mood and affect. Procedures None Date of Insertion: Mar 08, 2017 A/P Problem List: (1) Decreased urine output ICD Code: R34 - Anuria and oliguria Status: Acute (2) Prerenal azotemia ICD Code: R79.89 - Other specified abnormal findings of blood chemistry Status: Acute (3) Hematuria ICD Code: R31.9 - Hematuria, unspecified Status: Acute Assessment and Plan Weakness Continue physical therapy. Has been participating. Recommendations for SNF at discharge. Nursing staff to get patient up out of bed at least 3 times daily. Palliative care requested consult with psychiatry to see if patient has capacity to make decisions. Psychiatry evaluated patient states that he does not have capacity make his own decisions. Palliative care discussed with family who is declining transition to comfort care, hospice. Dementia with inappropriate behavior, mood disorder improved. Consulted psychiatry for further evaluation, who indicated that this is a frontal lobe dementia. Discontinued Remeron. Family states that he does not want his father receiving any antidepressants , antianxiety, antipsychotic medications Parkinson's disease: Patient has dementia and resting tremor. Chronic, stable. GI bleed with presenting of Upper GI bleed, patient with intermittent rectal bleeding. Stable. Glassware Finisher previously consulted, presumed hemorrhoids. Follow-up hemoglobin has remained stable. Follow intermittently. No signs of bleeding at this time. Continue PPI. Protein calorie malnutrition: Improving PEG tube replaced 11/20/16 Consulted dietitian who indicated that patient may be converted to bolus feeding Jevity 1.5, 1.5, 360ml(1.5 cans)@ 0800, 1100, 1400 and 240ml(1-can)@ 1700 and 2000 Ensure Enlive 3 times a day since pudding 3 times a day Prealbumin level 29. CBC and BMP done 03/21, reviewed and unremarkable. Awaiting prealbumin level. Hypotension with episodes of hypertension: Stable Continue monitor blood pressure Continue Midodrine. Obstructive uropathy: Resolved. With recurrent urinary tract infections. Treat only if symptomatic Suprapubic catheter in place, changed monthly, last changed 03/08/17. Seborrhea dermatitis, recurrent Continue to encourage proper hygiene to avoid recurrence Responds well to Hydrocortisone cream, Continue to use when active. DVT prophylaxis: SCDs. Avoid chemical prophylaxis secondary to intermittent rectal bleeding. Discharge Planning Discharge planning per case management. Marium Abdi Mar 21, 2017 08:58
[2017-03-21 20:00] VITALS: BP 109/62; PULSE 69; RESP 20; TEMP 96.9; O2SAT 95
[2017-03-22] MEDS: MIDODRINE 5 MG TAB PEG SCH ×3 (06:36→16:13)
[2017-03-22 08:00] VITALS: BP 119/65; PULSE 68; RESP 16; TEMP 98.4; O2SAT 92
[2017-03-22] MEDS: FREE WATER G-TUBE SCH (09:00)
[2017-03-22] MEDS: ALLOPURINOL 100 MG TAB PEG SCH (09:42)
[2017-03-22] MEDS: LANSOPRAZOLE SOLUTAB 30 MG TAB PEG SCH (09:43)
--- NOTE | 2017-03-22 15:02 | HHI.PR ---
Subjective Remarks Follow-up on profound weakness, dementia. Patient seen and examined, lying in bed comfortably. Awake and alert. No change in clinical condition. Objective Vitals Vital Signs Date Time Temp Pulse Resp B/P (MAP) Pulse Ox O2 Delivery O2 Flow Rate FiO2 03/22/17 08:00 98.4 68 16 119/65 (83) 92 03/21/17 20:00 96.9 69 20 109/62 (78) 95 I/O 03/21/17 03/21/17 03/21/17 03/22/17 03/22/17 03/22/17 07:00 15:00 23:00 07:00 15:00 23:00 Intake Total 100 ml 420 ml 180 ml Output Total 600 ml 450 ml 700 ml Balance -500 ml -30 ml 180 ml -700 ml Tube Feeding 240 ml Tube Irrigant 180 ml 180 ml Other 100 ml Output Urine Total 600 ml 450 ml 700 ml # Bowel Movements 1 1 1 Result Diagram: 03/21/17 0437 03/21/17 0437 Imaging Last Impressions Gastrostomy Tube Placement 11/20/16 0000 Signed Impressions: Service Date/Time: Sunday, November 20, 2016 14:06 - CONCLUSION: Uncomplicated gastrostomy tube placement as above. Cholelithiasis. Nitish Felton Jr., MD Abdomen/Pelvis CT 03/06/16 0000 Signed Impressions: Service Date/Time: Sunday, March 06, 2016 22:27 - CONCLUSION: 1. Resolution of right sided hydronephrosis. 2. Renal cysts. 3. Bladder is decompressed and there is circumferential bladder wall thickening and intraluminal air identified. A cystitis is not excluded. 4. A large stool ball is noted within the rectum. 5. Cholelithiasis. 6. Nonobstructing left renal calculus. Speedy Noriega MD Abdomen X-Ray 01/30/16 0000 Signed Impressions: Service Date/Time: Saturday, January 30, 2016 14:17 - CONCLUSION: Satisfactory PEG tube positioning Mikael Valladares MD Objective Remarks GENERAL: Well-developed, frail male patient lying in bed in NAD. SKIN: Warm and dry. No rash. Dry skin. HEENT: Normocephalic. Atraumatic. Pupils equal and round. No scleral icterus. No injection or drainage. No nasal bleeding or discharge. Mucous membranes pink and moist. EOMs intact. NECK: Supple. Trachea midline. CARDIOVASCULAR: Regular rate and rhythm. S1, S2 noted. No murmur appreciated. RESPIRATORY: No accessory muscle use. Clear to auscultation. Breath sounds equal bilaterally. GASTROINTESTINAL: Abdomen soft, non-tender, nondistended. Normoactive bowel sounds x4. No guarding noted. PEG tube in place, no drainage noted, no erythema , c/d/i. MUSCULOSKELETAL: No obvious deformities. Extremities without clubbing, cyanosis , or edema. NEUROLOGICAL: Awake and alert. No obvious cranial nerve deficits. Moving all extremities. PSYCHIATRIC: Appropriate mood and affect. Procedures None Date of Insertion: Mar 08, 2017 A/P Problem List: (1) Decreased urine output ICD Code: R34 - Anuria and oliguria Status: Acute (2) Prerenal azotemia ICD Code: R79.89 - Other specified abnormal findings of blood chemistry Status: Acute (3) Hematuria ICD Code: R31.9 - Hematuria, unspecified Status: Acute Assessment and Plan Weakness Continue physical therapy. Has been participating. Recommendations for SNF at discharge. Nursing staff to get patient up out of bed at least 3 times daily. Palliative care requested consult with psychiatry to see if patient has capacity to make decisions. Psychiatry evaluated patient states that he does not have capacity make his own decisions. Palliative care discussed with family who is declining transition to comfort care, hospice. Dementia with inappropriate behavior, mood disorder improved. Consulted psychiatry for further evaluation, who indicated that this is a frontal lobe dementia. Discontinued Remeron. Family states that he does not want his father receiving any antidepressants , antianxiety, antipsychotic medications Parkinson's disease: Patient has dementia and resting tremor. Chronic, stable. GI bleed with presenting of Upper GI bleed, patient with intermittent rectal bleeding. Stable. It Network Administrator previously consulted, presumed hemorrhoids. Follow-up hemoglobin has remained stable. Follow intermittently. No signs of bleeding at this time. Continue PPI. Protein calorie malnutrition: Improving PEG tube replaced 11/20/16 Consulted dietitian who indicated that patient may be converted to bolus feeding Jevity 1.5, 1.5, 360ml(1.5 cans)@ 0800, 1100, 1400 and 240ml(1-can)@ 1700 and 2000 Ensure Enlive 3 times a day since pudding 3 times a day Prealbumin level 29. CBC and BMP done 03/21, reviewed and unremarkable. Hypotension with episodes of hypertension: Stable Continue monitor blood pressure Continue Midodrine. Obstructive uropathy: Resolved. With recurrent urinary tract infections. Treat only if symptomatic Suprapubic catheter in place, changed monthly, last changed 03/08/17. Seborrhea dermatitis, recurrent Continue to encourage proper hygiene to avoid recurrence Responds well to Hydrocortisone cream, Continue to use when active. DVT prophylaxis: SCDs. Avoid chemical prophylaxis secondary to intermittent rectal bleeding. Discharge Planning Discharge planning per case management. Marium Abdi Mar 22, 2017 15:02
[2017-03-22 20:00] VITALS: BP 117/66; PULSE 65; RESP 20; TEMP 96.7; O2SAT 94
[2017-03-23] MEDS: MIDODRINE 5 MG TAB PEG SCH ×3 (06:04→17:19)
[2017-03-23 08:00] VITALS: BP 119/69; PULSE 62; RESP 15; TEMP 97.9; O2SAT 94
[2017-03-23] MEDS: ALLOPURINOL 100 MG TAB PEG SCH (08:47)
[2017-03-23] MEDS: FREE WATER G-TUBE SCH (08:48)
[2017-03-23] MEDS: LANSOPRAZOLE SOLUTAB 30 MG TAB PEG SCH (08:48)
--- NOTE | 2017-03-23 11:07 | HHI.PR ---
Subjective Remarks Follow up on profound weakness and dementia. Patient seen and examined. Lying in bed with no apparent distress. Denies any pain or complaints. No change in clinical condition. Objective Vitals Vital Signs Date Time Temp Pulse Resp B/P (MAP) Pulse Ox O2 Delivery O2 Flow Rate FiO2 03/23/17 08:00 97.9 62 15 119/69 (86) 94 03/22/17 20:00 96.7 65 20 117/66 (83) 94 I/O 03/22/17 03/22/17 03/22/17 03/23/17 03/23/17 03/23/17 07:00 15:00 23:00 07:00 15:00 23:00 Intake Total 180 ml 2210 ml 0 ml Output Total 700 ml 400 ml Balance 180 ml -700 ml 2210 ml -400 ml Intake Oral 0 ml Tube Feeding 1320 ml Tube Irrigant 180 ml 890 ml Output Urine Total 700 ml 400 ml # Bowel Movements 1 Result Diagram: 03/21/17 0437 03/21/17 0437 Imaging Last Impressions Gastrostomy Tube Placement 11/20/16 0000 Signed Impressions: Service Date/Time: Sunday, November 20, 2016 14:06 - CONCLUSION: Uncomplicated gastrostomy tube placement as above. Cholelithiasis. Nitish Felton Jr., MD Abdomen/Pelvis CT 03/06/16 0000 Signed Impressions: Service Date/Time: Sunday, March 06, 2016 22:27 - CONCLUSION: 1. Resolution of right sided hydronephrosis. 2. Renal cysts. 3. Bladder is decompressed and there is circumferential bladder wall thickening and intraluminal air identified. A cystitis is not excluded. 4. A large stool ball is noted within the rectum. 5. Cholelithiasis. 6. Nonobstructing left renal calculus. Speedy Noriega MD Abdomen X-Ray 01/30/16 0000 Signed Impressions: Service Date/Time: Saturday, January 30, 2016 14:17 - CONCLUSION: Satisfactory PEG tube positioning Mikael Valladares MD Objective Remarks GENERAL: Well-developed, frail male patient lying in bed in NAD. SKIN: Warm and dry. No rash. Dry skin. HEENT: Normocephalic. Atraumatic. Pupils equal and round. No scleral icterus. No injection or drainage. No nasal bleeding or discharge. Mucous membranes pink and moist. EOMs intact. NECK: Supple. Trachea midline. CARDIOVASCULAR: Regular rate and rhythm. S1, S2 noted. No murmur appreciated. RESPIRATORY: No accessory muscle use. Clear to auscultation. Breath sounds equal bilaterally. GASTROINTESTINAL: Abdomen soft, non-tender, nondistended. Normoactive bowel sounds x4. No guarding noted. PEG tube in place, no drainage noted, no erythema , c/d/i. MUSCULOSKELETAL: No obvious deformities. Extremities without clubbing, cyanosis , or edema. NEUROLOGICAL: Awake and alert. No obvious cranial nerve deficits. Moving all extremities. PSYCHIATRIC: Appropriate mood and affect. Procedures None Date of Insertion: Mar 08, 2017 A/P Problem List: (1) Decreased urine output ICD Code: R34 - Anuria and oliguria Status: Acute (2) Prerenal azotemia ICD Code: R79.89 - Other specified abnormal findings of blood chemistry Status: Acute (3) Hematuria ICD Code: R31.9 - Hematuria, unspecified Status: Acute Assessment and Plan Weakness Continue physical therapy. Has been participating. Recommendations for SNF at discharge. Nursing staff to get patient up out of bed at least 3 times daily. Palliative care requested consult with psychiatry to see if patient has capacity to make decisions. Psychiatry evaluated patient states that he does not have capacity make his own decisions. Palliative care discussed with family who is declining transition to comfort care, hospice. Dementia with inappropriate behavior, mood disorder improved. Consulted psychiatry for further evaluation, who indicated that this is a frontal lobe dementia. Discontinued Remeron. Family states that he does not want his father receiving any antidepressants , antianxiety, antipsychotic medications Parkinson's disease: Patient has dementia and resting tremor. Chronic, stable. GI bleed with presenting of Upper GI bleed, patient with intermittent rectal bleeding. Stable. Electric Meter Technician previously consulted, presumed hemorrhoids. Follow-up hemoglobin has remained stable. Follow intermittently. No signs of bleeding at this time. Continue PPI. Protein calorie malnutrition: Improving PEG tube replaced 11/20/16 Consulted dietitian who indicated that patient may be converted to bolus feeding Jevity 1.5, 1.5, 360ml(1.5 cans)@ 0800, 1100, 1400 and 240ml(1-can)@ 1700 and 2000 Ensure Enlive 3 times a day since pudding 3 times a day Prealbumin level 29. CBC and BMP done 03/21, reviewed and unremarkable. Hypotension with episodes of hypertension: Stable Continue monitor blood pressure Continue Midodrine. Obstructive uropathy: Resolved. With recurrent urinary tract infections. Treat only if symptomatic Suprapubic catheter in place, changed monthly, last changed 03/08/17. Seborrhea dermatitis, recurrent Continue to encourage proper hygiene to avoid recurrence Responds well to Hydrocortisone cream, Continue to use when active. DVT prophylaxis: SCDs. Avoid chemical prophylaxis secondary to intermittent rectal bleeding. Discharge Planning Discharge planning per case management. Marium Abdi Mar 23, 2017 11:07
[2017-03-23] MEDS: NYSTATIN 100,000 U/GM PWD 15 GM BTL TOPICAL SCH ×2 (12:19→20:18)
[2017-03-23 20:00] VITALS: BP 128/79; PULSE 75; RESP 16; TEMP 98.1; O2SAT 96
[2017-03-24] MEDS: MIDODRINE 5 MG TAB PEG SCH ×3 (06:18→17:00)
[2017-03-24 08:00] VITALS: BP 103/67; PULSE 74; RESP 16; TEMP 97; O2SAT 95
[2017-03-24] MEDS: NYSTATIN 100,000 U/GM PWD 15 GM BTL TOPICAL SCH ×2 (09:00→20:05)
[2017-03-24] MEDS: FREE WATER G-TUBE SCH (09:00)
[2017-03-24] MEDS: LANSOPRAZOLE SOLUTAB 30 MG TAB PEG SCH (10:48)
[2017-03-24] MEDS: ALLOPURINOL 100 MG TAB PEG SCH (10:48)
--- NOTE | 2017-03-24 11:30 | HHI.PR ---
Subjective Remarks Follow up on profound weakness and dementia. Patient seen and examined lying in bed comfortably. Patient smiling with no apparent distress. Denies any pain. Denies any fever, chest pain, headache or shortness of breath. Tolerating TF. Afebrile. Spoke to RN with no reports of acute events overnight. Objective Vitals Vital Signs Date Time Temp Pulse Resp B/P (MAP) Pulse Ox O2 Delivery O2 Flow Rate FiO2 03/24/17 08:00 97.0 74 16 103/67 (79) 95 03/23/17 20:00 98.1 75 16 128/79 (95) 96 I/O 03/23/17 03/23/17 03/23/17 03/24/17 03/24/17 03/24/17 06:59 14:59 22:59 06:59 14:59 22:59 Intake Total 0 ml 2240 ml Output Total 400 ml 750 ml 800 ml Balance -400 ml 1490 ml -800 ml Intake Oral 0 ml 0 ml Tube Feeding 1440 ml Other 800 ml Output Urine Total 400 ml 750 ml 800 ml # Bowel Movements 1 Result Diagram: 03/21/17 0437 03/21/17 0437 Imaging Last Impressions Gastrostomy Tube Placement 11/20/16 0000 Signed Impressions: Service Date/Time: Sunday, November 20, 2016 14:06 - CONCLUSION: Uncomplicated gastrostomy tube placement as above. Cholelithiasis. Nitish Felton Jr., MD Abdomen/Pelvis CT 03/06/16 0000 Signed Impressions: Service Date/Time: Sunday, March 06, 2016 22:27 - CONCLUSION: 1. Resolution of right sided hydronephrosis. 2. Renal cysts. 3. Bladder is decompressed and there is circumferential bladder wall thickening and intraluminal air identified. A cystitis is not excluded. 4. A large stool ball is noted within the rectum. 5. Cholelithiasis. 6. Nonobstructing left renal calculus. Speeyd Noriega MD Abdomen X-Ray 01/30/16 0000 Signed Impressions: Service Date/Time: Saturday, January 30, 2016 14:17 - CONCLUSION: Satisfactory PEG tube positioning Mikael Valladares MD Objective Remarks GENERAL: Well-developed, frail male patient lying in bed in NAD. SKIN: Warm and dry. No rash. Dry skin. HEENT: Normocephalic. Atraumatic. Pupils equal and round. No scleral icterus. No injection or drainage. No nasal bleeding or discharge. Mucous membranes pink and moist. EOMs intact. NECK: Supple. Trachea midline. CARDIOVASCULAR: Regular rate and rhythm. S1, S2 noted. No murmur appreciated. RESPIRATORY: No accessory muscle use. Clear to auscultation. Breath sounds equal bilaterally. GASTROINTESTINAL: Abdomen soft, non-tender, nondistended. Normoactive bowel sounds x4. No guarding noted. PEG tube in place, no drainage noted, no erythema , c/d/i. MUSCULOSKELETAL: No obvious deformities. Extremities without clubbing, cyanosis , or edema. NEUROLOGICAL: Awake and alert. No obvious cranial nerve deficits. Moving all extremities. PSYCHIATRIC: Appropriate mood and affect. Procedures None Date of Insertion: Mar 08, 2017 A/P Problem List: (1) Decreased urine output ICD Code: R34 - Anuria and oliguria Status: Acute (2) Prerenal azotemia ICD Code: R79.89 - Other specified abnormal findings of blood chemistry Status: Acute (3) Hematuria ICD Code: R31.9 - Hematuria, unspecified Status: Acute Assessment and Plan Weakness Continue physical therapy. Has been participating. Recommendations for SNF at discharge. Nursing staff to get patient up out of bed at least 3 times daily. Palliative care requested consult with psychiatry to see if patient has capacity to make decisions. Psychiatry evaluated patient states that he does not have capacity make his own decisions. Palliative care discussed with family who is declining transition to comfort care, hospice. Dementia with inappropriate behavior, mood disorder improved. Consulted psychiatry for further evaluation, who indicated that this is a frontal lobe dementia. Discontinued Remeron. Family states that he does not want his father receiving any antidepressants , antianxiety, antipsychotic medications Parkinson's disease: Patient has dementia and resting tremor. Chronic, stable. GI bleed with presenting of Upper GI bleed, patient with intermittent rectal bleeding. Stable. Globe Cleaner previously consulted, presumed hemorrhoids. Follow-up hemoglobin has remained stable. Follow intermittently. No signs of bleeding at this time. Continue PPI. Protein calorie malnutrition: Improving PEG tube replaced 11/20/16 Consulted dietitian who indicated that patient may be converted to bolus feeding Jevity 1.5, 1.5, 360ml(1.5 cans)@ 0800, 1100, 1400 and 240ml(1-can)@ 1700 and 2000 Ensure Enlive 3 times a day since pudding 3 times a day Prealbumin level 29. CBC and BMP done 03/21, reviewed and unremarkable. Hypotension with episodes of hypertension: Stable Continue monitor blood pressure Continue Midodrine. Obstructive uropathy: Resolved. With recurrent urinary tract infections. Treat only if symptomatic Suprapubic catheter in place, changed monthly, last changed 03/08/17. Seborrhea dermatitis, recurrent Continue to encourage proper hygiene to avoid recurrence Responds well to Hydrocortisone cream, Continue to use when active. DVT prophylaxis: SCDs. Avoid chemical prophylaxis secondary to intermittent rectal bleeding. Discharge Planning Discharge planning per case management. Marium Abdi Mar 24, 2017 11:30
[2017-03-24 20:00] VITALS: BP 102/57; PULSE 76; RESP 16; TEMP 96.9; O2SAT 95
[2017-03-25] VITALS: BP 104/56; PULSE 72; RESP 20; TEMP 98.8; O2SAT 93
[2017-03-25] MEDS: MIDODRINE 5 MG TAB PEG SCH ×3 (05:46→16:20)
[2017-03-25 07:54] VITALS: BP 122/68; PULSE 70; RESP 16; TEMP 98.3; O2SAT 95
[2017-03-25] MEDS: FREE WATER G-TUBE SCH (07:56)
[2017-03-25] MEDS: LANSOPRAZOLE SOLUTAB 30 MG TAB PEG SCH (07:57)
[2017-03-25] MEDS: NYSTATIN 100,000 U/GM PWD 15 GM BTL TOPICAL SCH ×2 (07:58→21:45)
[2017-03-25] MEDS: ALLOPURINOL 100 MG TAB PEG SCH (07:58)
--- NOTE | 2017-03-25 10:34 | HHI.PR ---
Subjective Remarks Patient seen and examined today for follow-up on profound weakness, dementia. He denies any new complaints. Patient states that he would like to get out of bed today. No change in clinical status. Objective Vitals Vital Signs Date Time Temp Pulse Resp B/P (MAP) Pulse Ox O2 Delivery O2 Flow Rate FiO2 03/25/17 07:54 98.3 70 16 122/68 (86) 95 03/25/17 00:00 98.8 72 20 104/56 (72) 93 03/24/17 20:00 96.9 76 16 102/57 (72) 95 I/O 03/24/17 03/24/17 03/24/17 03/25/17 03/25/17 03/25/17 07:00 15:00 23:00 07:00 15:00 23:00 Intake Total 0 ml Output Total 800 ml 850 ml 400 ml Balance -800 ml -850 ml -400 ml Intake Oral 0 ml Output Urine Total 800 ml 850 ml 400 ml # Bowel Movements 1 3 Result Diagram: 03/21/1743603/21/17436 Objective Remarks GENERAL: Well-developed, well-nourished, in no acute distress. HEENT: Head is normocephalic without any lesions or masses noted. Facial features are symmetric. Eyes: Extraocular muscles are intact. Conjunctivae were clear. NECK: Trachea midline no deviation. CARDIAC: Regular rhythm, regular rate. S1/S2 are heard. No murmurs gallops or rubs. LUNGS: Clear to auscultation bilaterally. No wheeze, rhonchi or rales. No use of accessory muscles on inspiration or expiration. ABDOMEN: Soft, nontender. Nondistended. Bowel sounds heard in all 4 quadrants. No organomegaly or masses. Negative rebound, negative guarding, suprapubic catheter in place, PEG tube in place with no signs of infection, EXTREMITIES: No edema, pulses are equal bilaterally. No cyanosis or clubbing NEUROLOGY: Mood and affect appear appropriate. Cranial nerves II through XII grossly intact. Moving all extremities Procedures None Urinary Catheter: Yes (suprapubic catheter) Assessment to: Continue Soto insert reason: Obstruction/Retention Date of Insertion: Mar 08, 2017 Vascular Central Line Catheter: No A/P Assessment and Plan Weakness: Continue physical therapy, however patient refuses get out of bed majority of the time Nursing staff to get patient up out of bed at least 3 times daily Palliative care requested consult with psychiatry to see if patient has capacity to make decisions. Psychiatry evaluated patient states that he does not have capacity make his own decisions Palliative care discussed with family who is declining transition to comfort care, hospice. Dementia with inappropriate behavior, mood disorder improved Consulted psychiatry for further evaluation, who indicated that this is a frontal lobe dementia Discontinued Remeron Family states that he does not want his father receiving any antidepressants , antianxiety, antipsychotic medications Parkinson's disease: Patient has dementia and resting tremor. Chronic, stable. GI bleed with presenting of Upper GI bleed, patient with intermittent rectal bleeding: Foam Gun Operator consulted and Presumed hemorrhoids, continue Anusol HC as needed Presumed hemorrhoids Follow-up hemoglobin has remained stable Continue PPI. Protein calorie malnutrition: Improving PEG tube replaced 11/20/16 Consulted dietitian who indicated that patient may be converted to bolus feeding Jevity 1.5, 1.5, 360ml(1.5 cans)@ 0800, 1100, 1400 and 240ml(1-can)@ 1700 and 2000 Ensure Enlive 3 times a day since pudding 3 times a day Prealbumin level 25 Hypotension with episodes of hypertension: Stable Continue monitor blood pressure Continue Midodrine. obstructive uropathy: Resolved. With recurrent urinary tract infections. Treat only if symptomatic Suprapubic catheter in place, changed monthly, last changed 03/08/17 Seborrhea dermatitis, recurrent Counseled nursing staff on proper hygiene to avoid recurrence Responds well to Hydrocortisone cream. Continue to use when active DVT prophylaxis: Sequential compression devices Avoid chemical prophylaxis secondary to intermittent rectal bleeding Records were reviewed. Awaiting case management discharge planning, No change in current treatment plan. Discharge Planning Discharge planning per case management. Jaguar Walker Mar 25, 2017 10:34
[2017-03-25] MEDS: diphenhydrAMINE HCL 25 MG CAP PO PRN (16:20)
[2017-03-25 20:00] VITALS: BP 127/73; PULSE 68; RESP 20; TEMP 96; O2SAT 97
[2017-03-26] MEDS: MIDODRINE 5 MG TAB PEG SCH ×3 (05:50→16:55)
[2017-03-26 07:50] VITALS: BP 133/64; PULSE 62; RESP 20; TEMP 97.6; O2SAT 94
[2017-03-26] MEDS: LANSOPRAZOLE SOLUTAB 30 MG TAB PEG SCH (08:29)
[2017-03-26] MEDS: ALLOPURINOL 100 MG TAB PEG SCH (08:29)
[2017-03-26] MEDS: FREE WATER G-TUBE SCH (08:29)
[2017-03-26] MEDS: NYSTATIN 100,000 U/GM PWD 15 GM BTL TOPICAL SCH ×2 (08:35→23:23)
--- NOTE | 2017-03-26 08:39 | HHI.PR ---
Subjective Remarks Patient seen and examined today for follow-up on profile weakness, dementia. Patient denies any new complaints. Patient was out of bed yesterday and did quite well. Patient does not want to get out of bed today. Objective Vitals Vital Signs Date Time Temp Pulse Resp B/P (MAP) Pulse Ox O2 Delivery O2 Flow Rate FiO2 03/25/17 20:00 96.0 68 20 127/73 (91) 97 I/O 03/25/17 03/25/17 03/25/17 03/26/17 03/26/17 03/26/17 07:00 15:00 23:00 07:00 15:00 23:00 Intake Total 440 ml 60 ml Output Total 400 ml 200 ml 450 ml Balance -400 ml -200 ml 440 ml -390 ml Intake Oral 0 ml Tube Feeding 240 ml Other 200 ml 60 ml Output Urine Total 400 ml 200 ml 450 ml # Bowel Movements 3 Objective Remarks GENERAL: Well-developed, well-nourished, in no acute distress. HEENT: Head is normocephalic without any lesions or masses noted. Facial features are symmetric. Eyes: Extraocular muscles are intact. Conjunctivae were clear. NECK: Trachea midline no deviation. CARDIAC: Regular rhythm, regular rate. S1/S2 are heard. No murmurs gallops or rubs. LUNGS: Clear to auscultation bilaterally. No wheeze, rhonchi or rales. No use of accessory muscles on inspiration or expiration. ABDOMEN: Soft, nontender. Nondistended. Bowel sounds heard in all 4 quadrants. No organomegaly or masses. Negative rebound, negative guarding, suprapubic catheter in place, PEG tube in place with no signs of infection, EXTREMITIES: No edema, pulses are equal bilaterally. No cyanosis or clubbing NEUROLOGY: Mood and affect appear appropriate. Cranial nerves II through XII grossly intact. Moving all extremities Procedures None Urinary Catheter: Yes Assessment to: Continue Soto insert reason: Obstruction/Retention Date of Insertion: Mar 08, 2017 Vascular Central Line Catheter: No A/P Assessment and Plan Weakness: Continue physical therapy, however patient refuses get out of bed majority of the time Nursing staff to get patient up out of bed at least 3 times daily Palliative care requested consult with psychiatry to see if patient has capacity to make decisions. Psychiatry evaluated patient states that he does not have capacity make his own decisions Palliative care discussed with family who is declining transition to comfort care, hospice. Dementia with inappropriate behavior, mood disorder improved Consulted psychiatry for further evaluation, who indicated that this is a frontal lobe dementia Discontinued Remeron Family states that he does not want his father receiving any antidepressants , antianxiety, antipsychotic medications Parkinson's disease: Patient has dementia and resting tremor. Chronic, stable. GI bleed with presenting of Upper GI bleed, patient with intermittent rectal bleeding: Ski Top Trimmer consulted and Presumed hemorrhoids, continue Anusol HC as needed Presumed hemorrhoids Follow-up hemoglobin has remained stable Continue PPI. Protein calorie malnutrition: Improving PEG tube replaced 11/20/16 Consulted dietitian who indicated that patient may be converted to bolus feeding Jevity 1.5, 1.5, 360ml(1.5 cans)@ 0800, 1100, 1400 and 240ml(1-can)@ 1700 and 2000 Ensure Enlive 3 times a day since pudding 3 times a day Prealbumin level 25 Hypotension with episodes of hypertension: Stable Continue monitor blood pressure Continue Midodrine. obstructive uropathy: Resolved. With recurrent urinary tract infections. Treat only if symptomatic Suprapubic catheter in place, changed monthly, last changed 03/08/17 Seborrhea dermatitis, recurrent Counseled nursing staff on proper hygiene to avoid recurrence Responds well to Hydrocortisone cream. Continue to use when active DVT prophylaxis: Sequential compression devices Avoid chemical prophylaxis secondary to intermittent rectal bleeding Records were reviewed. No change in current treatment plan. Awaiting case management discharge planning, Discharge Planning Discharge planning per case management. Jaguar Walker Mar 26, 2017 08:39
[2017-03-26 19:48] VITALS: BP 105/65; PULSE 80; RESP 20; TEMP 96.4; O2SAT 95
[2017-03-26 23:32] VITALS: BP 110/75; PULSE 75; RESP 20; TEMP 98.4; O2SAT 94
[2017-03-27] MEDS: MIDODRINE 5 MG TAB PEG SCH ×3 (05:04→17:00)
[2017-03-27 08:00] VITALS: BP 106/56; PULSE 68; RESP 18; TEMP 98.3; O2SAT 99
[2017-03-27] MEDS: FREE WATER G-TUBE SCH (08:42)
[2017-03-27] MEDS: ALLOPURINOL 100 MG TAB PEG SCH (09:07)
[2017-03-27] MEDS: LANSOPRAZOLE SOLUTAB 30 MG TAB PEG SCH (09:07)
[2017-03-27] MEDS: NYSTATIN 100,000 U/GM PWD 15 GM BTL TOPICAL SCH ×2 (09:07→20:45)
--- NOTE | 2017-03-27 10:48 | HHI.PR ---
Subjective Remarks Patient seen and examined today for follow-up on profound weakness, dementia. Patient denies any new complaints. No change in clinical status. Vital signs are stable. Afebrile. Patient states that he does not want to get out of bed today Objective Vitals Vital Signs Date Time Temp Pulse Resp B/P (MAP) Pulse Ox O2 Delivery O2 Flow Rate FiO2 03/27/17 08:00 98.3 68 18 106/56 (73) 99 03/26/17 23:32 98.4 75 20 110/75 (87) 94 03/26/17 19:48 96.4 80 20 105/65 (78) 95 I/O 03/26/17 03/26/17 03/26/17 03/27/17 03/27/17 03/27/17 07:00 15:00 23:00 07:00 15:00 23:00 Intake Total 60 ml 2260 ml 680 ml Output Total 450 ml 650 ml 450 ml Balance -390 ml 1610 ml 230 ml Intake Oral 0 ml Tube Feeding 1260 ml 240 ml Tube Irrigant 1000 ml 240 ml Other 60 ml 200 ml Output Urine Total 450 ml 650 ml 450 ml # Bowel Movements 3 3 Objective Remarks GENERAL: Well-developed, well-nourished, in no acute distress. HEENT: Head is normocephalic without any lesions or masses noted. Facial features are symmetric. Eyes: Extraocular muscles are intact. Conjunctivae were clear. NECK: Trachea midline no deviation. CARDIAC: Regular rhythm, regular rate. S1/S2 are heard. No murmurs gallops or rubs. LUNGS: Clear to auscultation bilaterally. No wheeze, rhonchi or rales. No use of accessory muscles on inspiration or expiration. ABDOMEN: Soft, nontender. Nondistended. Bowel sounds heard in all 4 quadrants. No organomegaly or masses. Negative rebound, negative guarding, suprapubic catheter in place, PEG tube in place with no signs of infection, EXTREMITIES: No edema, pulses are equal bilaterally. No cyanosis or clubbing NEUROLOGY: Mood and affect appear appropriate. Cranial nerves II through XII grossly intact. Moving all extremities Procedures None Urinary Catheter: Yes Assessment to: Continue Soto insert reason: Obstruction/Retention Date of Insertion: Mar 08, 2017 Vascular Central Line Catheter: No A/P Assessment and Plan Weakness: Continue physical therapy, however patient refuses get out of bed majority of the time Nursing staff to get patient up out of bed at least 3 times daily Palliative care requested consult with psychiatry to see if patient has capacity to make decisions. Psychiatry evaluated patient states that he does not have capacity make his own decisions Palliative care discussed with family who is declining transition to comfort care, hospice. Dementia with inappropriate behavior, mood disorder improved Consulted psychiatry for further evaluation, who indicated that this is a frontal lobe dementia Discontinued Remeron Family states that he does not want his father receiving any antidepressants , antianxiety, antipsychotic medications Parkinson's disease: Patient has dementia and resting tremor. Chronic, stable. GI bleed with presenting of Upper GI bleed, patient with intermittent rectal bleeding: [place] Upholsterer consulted and Presumed hemorrhoids, continue Anusol HC as needed Presumed hemorrhoids Follow-up hemoglobin has remained stable Continue PPI. Protein calorie malnutrition: Improving PEG tube replaced 11/20/16 Consulted dietitian who indicated that patient may be converted to bolus feeding Jevity 1.5, 1.5, 360ml(1.5 cans)@ 0800, 1100, 1400 and 240ml(1-can)@ 1700 and 2000 Ensure Enlive 3 times a day since pudding 3 times a day Prealbumin level 25 Hypotension with episodes of hypertension: Stable Continue monitor blood pressure Continue Midodrine. obstructive uropathy: Resolved. With recurrent urinary tract infections. Treat only if symptomatic Suprapubic catheter in place, changed monthly, last changed 03/08/17 Seborrhea dermatitis, recurrent Counseled nursing staff on proper hygiene to avoid recurrence Responds well to Hydrocortisone cream. Continue to use when active DVT prophylaxis: Sequential compression devices Avoid chemical prophylaxis secondary to intermittent rectal bleeding Records were reviewed. Awaiting case management discharge planning, No change in current treatment plan. Discharge Planning Discharge planning per case management. Jaguar Walker Mar 27, 2017 10:48
[2017-03-27 20:00] VITALS: BP 105/64; PULSE 83; RESP 18; TEMP 98.2; O2SAT 94
[2017-03-28] MEDS: MIDODRINE 5 MG TAB PEG SCH ×3 (06:09→17:35)
[2017-03-28 08:00] VITALS: BP 120/68; PULSE 68; RESP 16; TEMP 97.3; O2SAT 93
--- NOTE | 2017-03-28 08:17 | HHI.PR ---
Subjective Remarks Patient examined today for follow-up on profound weakness, debility, dementia. Patient has any new complaints. Nursing staff indicates that patient has increased pruritus and scratching wounds on his arms. Objective Vitals Vital Signs Date Time Temp Pulse Resp B/P (MAP) Pulse Ox O2 Delivery O2 Flow Rate FiO2 03/27/17 20:00 98.2 83 18 105/64 (78) 94 I/O 03/27/17 03/27/17 03/27/17 03/28/17 03/28/17 03/28/17 07:00 15:00 23:00 07:00 15:00 23:00 Intake Total 680 ml 640 ml Output Total 450 ml 850 ml Balance 230 ml -210 ml Tube Feeding 240 ml 240 ml Tube Irrigant 240 ml 400 ml Other 200 ml Output Urine Total 450 ml 850 ml # Bowel Movements 3 1 0 Objective Remarks GENERAL: Well-developed, well-nourished, in no acute distress. HEENT: Head is normocephalic without any lesions or masses noted. Facial features are symmetric. Eyes: Extraocular muscles are intact. Conjunctivae were clear. NECK: Trachea midline no deviation. CARDIAC: Regular rhythm, regular rate. S1/S2 are heard. No murmurs gallops or rubs. LUNGS: Clear to auscultation bilaterally. No wheeze, rhonchi or rales. No use of accessory muscles on inspiration or expiration. ABDOMEN: Soft, nontender. Nondistended. Bowel sounds heard in all 4 quadrants. No organomegaly or masses. Negative rebound, negative guarding, suprapubic catheter in place, PEG tube in place with no signs of infection, EXTREMITIES: No edema, pulses are equal bilaterally. No cyanosis or clubbing NEUROLOGY: Mood and affect appear appropriate. Cranial nerves II through XII grossly intact. Moving all extremities Procedures None Urinary Catheter: Yes Assessment to: Continue Soto insert reason: Obstruction/Retention Date of Insertion: Mar 08, 2017 Vascular Central Line Catheter: No A/P Assessment and Plan Pruritus Start Atarax 10 mg every 6 hours May use mittens to protect patient from scratching Weakness: Continue physical therapy, however patient refuses get out of bed majority of the time Nursing staff to get patient up out of bed at least 3 times daily Palliative care requested consult with psychiatry to see if patient has capacity to make decisions. Psychiatry evaluated patient states that he does not have capacity make his own decisions Palliative care discussed with family who is declining transition to comfort care, hospice. Dementia with inappropriate behavior, mood disorder improved Consulted psychiatry for further evaluation, who indicated that this is a frontal lobe dementia Discontinued Cielo Family states that he does not want his father receiving any antidepressants , antianxiety, antipsychotic medications Parkinson's disease: Patient has dementia and resting tremor. Chronic, stable. GI bleed with presenting of Upper GI bleed, patient with intermittent rectal bleeding: Product Analyst consulted and Presumed hemorrhoids, continue Anusol HC as needed Presumed hemorrhoids Follow-up hemoglobin has remained stable Continue PPI. Protein calorie malnutrition: Improving PEG tube replaced 11/20/16 Consulted dietitian who indicated that patient may be converted to bolus feeding Jevity 1.5, 1.5, 360ml(1.5 cans)@ 0800, 1100, 1400 and 240ml(1-can)@ 1700 and 2000 Ensure Enlive 3 times a day since pudding 3 times a day Prealbumin level 25 Hypotension with episodes of hypertension: Stable Continue monitor blood pressure Continue Midodrine. obstructive uropathy: Resolved. With recurrent urinary tract infections. Treat only if symptomatic Suprapubic catheter in place, changed monthly, last changed 03/08/17 Seborrhea dermatitis, recurrent Counseled nursing staff on proper hygiene to avoid recurrence Responds well to Hydrocortisone cream. Continue to use when active DVT prophylaxis: Sequential compression devices Avoid chemical prophylaxis secondary to intermittent rectal bleeding Discharge Planning Discharge planning per case management. Jaguar Walker Mar 28, 2017 08:17
[2017-03-28] MEDS: FREE WATER G-TUBE SCH (09:00)
[2017-03-28] MEDS: ALLOPURINOL 100 MG TAB PEG SCH (09:59)
[2017-03-28] MEDS: LANSOPRAZOLE SOLUTAB 30 MG TAB PEG SCH (09:59)
[2017-03-28] MEDS: hydrOXYzine HCL 10 MG TAB SCH ×3 (09:59→17:35)
[2017-03-28] MEDS: NYSTATIN 100,000 U/GM PWD 15 GM BTL TOPICAL SCH ×2 (10:00→20:42)
[2017-03-28 20:00] VITALS: BP 117/63; PULSE 71; RESP 18; TEMP 98.6; O2SAT 93
[2017-03-29] MEDS: hydrOXYzine HCL 10 MG TAB SCH ×5 (00:36→23:23)
[2017-03-29] MEDS: MIDODRINE 5 MG TAB PEG SCH ×3 (06:04→16:10)
[2017-03-29 08:50] VITALS: BP 130/70; PULSE 68; RESP 16; TEMP 98.6; O2SAT 94
[2017-03-29] MEDS: FREE WATER G-TUBE SCH (09:00)
[2017-03-29] MEDS: LANSOPRAZOLE SOLUTAB 30 MG TAB PEG SCH (10:09)
[2017-03-29] MEDS: ALLOPURINOL 100 MG TAB PEG SCH (10:09)
[2017-03-29] MEDS: diphenhydrAMINE HCL 25 MG CAP PO PRN (10:09)
[2017-03-29] MEDS: NYSTATIN 100,000 U/GM PWD 15 GM BTL TOPICAL SCH ×2 (10:10→23:38)
--- NOTE | 2017-03-29 10:33 | HHI.PR ---
Subjective Remarks Patient seen and examined today for follow-up on profound weakness, dementia. Patient denies any new complaints. No change in clinical status. Vital signs are stable, afebrile Objective Vitals Vital Signs Date Time Temp Pulse Resp B/P (MAP) Pulse Ox O2 Delivery O2 Flow Rate FiO2 03/29/17 08:50 98.6 68 16 130/70 (90) 94 03/28/17 20:00 98.6 71 18 117/63 (81) 93 I/O 03/28/17 03/28/17 03/28/17 03/29/17 03/29/17 03/29/17 07:00 15:00 23:00 07:00 15:00 23:00 Intake Total 640 ml 0 ml Output Total 850 ml 350 ml 450 ml Balance -210 ml -350 ml -450 ml Intake Oral 0 ml Tube Feeding 240 ml Tube Irrigant 400 ml Output Urine Total 850 ml 350 ml 450 ml # Bowel Movements 0 1 2 Objective Remarks GENERAL: Well-developed, well-nourished, in no acute distress. HEENT: Head is normocephalic without any lesions or masses noted. Facial features are symmetric. Eyes: Extraocular muscles are intact. Conjunctivae were clear. NECK: Trachea midline no deviation. CARDIAC: Regular rhythm, regular rate. S1/S2 are heard. No murmurs gallops or rubs. LUNGS: Clear to auscultation bilaterally. No wheeze, rhonchi or rales. No use of accessory muscles on inspiration or expiration. ABDOMEN: Soft, nontender. Nondistended. Bowel sounds heard in all 4 quadrants. No organomegaly or masses. Negative rebound, negative guarding, suprapubic catheter in place, PEG tube in place with no signs of infection, EXTREMITIES: No edema, pulses are equal bilaterally. No cyanosis or clubbing NEUROLOGY: Mood and affect appear appropriate. Cranial nerves II through XII grossly intact. Moving all extremities Procedures None Urinary Catheter: Yes (suprapubic catheter) Assessment to: Continue Soto insert reason: Obstruction/Retention Date of Insertion: Mar 08, 2017 Vascular Central Line Catheter: No A/P Assessment and Plan Pruritus Continue Atarax 10 mg every 6 hours May use mittens to protect patient from scratching Weakness: Continue physical therapy, however patient refuses get out of bed majority of the time Nursing staff to get patient up out of bed at least 3 times daily Palliative care requested consult with psychiatry to see if patient has capacity to make decisions. Psychiatry evaluated patient states that he does not have capacity make his own decisions Palliative care discussed with family who is declining transition to comfort care, hospice. Dementia with inappropriate behavior, mood disorder improved Consulted psychiatry for further evaluation, who indicated that this is a frontal lobe dementia Discontinued Remeron Family states that he does not want his father receiving any antidepressants , antianxiety, antipsychotic medications Parkinson's disease: Patient has dementia and resting tremor. Chronic, stable. GI bleed with presenting of Upper GI bleed, patient with intermittent rectal bleeding: Director Financial Analysis consulted and Presumed hemorrhoids, continue Anusol HC as needed Presumed hemorrhoids Follow-up hemoglobin has remained stable Continue PPI. Protein calorie malnutrition: Improving PEG tube replaced 11/20/16 Consulted dietitian who indicated that patient may be converted to bolus feeding Jevity 1.5, 1.5, 360ml(1.5 cans)@ 0800, 1100, 1400 and 240ml(1-can)@ 1700 and 2000 Ensure Enlive 3 times a day since pudding 3 times a day Prealbumin level 25 Hypotension with episodes of hypertension: Stable Continue monitor blood pressure Continue Midodrine. obstructive uropathy: Resolved. With recurrent urinary tract infections. Treat only if symptomatic Suprapubic catheter in place, changed monthly, last changed 03/08/17 Seborrhea dermatitis, recurrent Counseled nursing staff on proper hygiene to avoid recurrence Responds well to Hydrocortisone cream. Continue to use when active DVT prophylaxis: Sequential compression devices Avoid chemical prophylaxis secondary to intermittent rectal bleeding Records were reviewed. No change in current treatment plan. Awaiting case management for discharge planning Discharge Planning Discharge planning per case management. Jaguar Walker Mar 29, 2017 10:33
[2017-03-29 20:29] VITALS: BP 112/65; PULSE 76; RESP 16; TEMP 97.3; O2SAT 93
[2017-03-30] MEDS: hydrOXYzine HCL 10 MG TAB SCH ×3 (06:22→18:39)
[2017-03-30] MEDS: MIDODRINE 5 MG TAB PEG SCH ×3 (06:22→18:39)
[2017-03-30 08:00] VITALS: BP 122/66; PULSE 74; RESP 18; TEMP 98.4; O2SAT 94
--- NOTE | 2017-03-30 08:11 | HHI.PR ---
Subjective Remarks Patient seen and examined today for follow-up on profound weakness, dementia. Patient denies any new complaints today. Appears if the Atarax has helped with his itching. Vital signs are stable, afebrile Objective Vitals Vital Signs Date Time Temp Pulse Resp B/P (MAP) Pulse Ox O2 Delivery O2 Flow Rate FiO2 03/29/17 20:29 97.3 76 16 112/65 (81) 93 03/29/17 08:50 98.6 68 16 130/70 (90) 94 I/O 03/29/17 03/29/17 03/29/17 03/30/17 03/30/17 03/30/17 07:00 15:00 23:00 07:00 15:00 23:00 Intake Total 440 ml 100 ml Output Total 450 ml 1400 ml Balance -450 ml 440 ml -1300 ml Tube Feeding 240 ml Other 200 ml 100 ml Output Urine Total 450 ml 1400 ml # Bowel Movements 2 1 Objective Remarks GENERAL: Well-developed, well-nourished, in no acute distress. HEENT: Head is normocephalic without any lesions or masses noted. Facial features are symmetric. Eyes: Extraocular muscles are intact. Conjunctivae were clear. NECK: Trachea midline no deviation. CARDIAC: Regular rhythm, regular rate. S1/S2 are heard. No murmurs gallops or rubs. LUNGS: Clear to auscultation bilaterally. No wheeze, rhonchi or rales. No use of accessory muscles on inspiration or expiration. ABDOMEN: Soft, nontender. Nondistended. Bowel sounds heard in all 4 quadrants. No organomegaly or masses. Negative rebound, negative guarding, suprapubic catheter in place, PEG tube in place with no signs of infection, EXTREMITIES: No edema, pulses are equal bilaterally. No cyanosis or clubbing NEUROLOGY: Mood and affect appear appropriate. Cranial nerves II through XII grossly intact. Moving all extremities Procedures None Urinary Catheter: Yes (suprapubic catheter) Assessment to: Continue [place] insert reason: Obstruction/Retention Date of Insertion: Mar 08, 2017 Vascular Central Line Catheter: No A/P Assessment and Plan Pruritus Continue Atarax 10 mg every 6 hours May use mittens to protect patient from scratching Weakness: Continue physical therapy, however patient refuses get out of bed majority of the time Nursing staff to get patient up out of bed at least 3 times daily Palliative care requested consult with psychiatry to see if patient has capacity to make decisions. Psychiatry evaluated patient states that he does not have capacity make his own decisions Palliative care discussed with family who is declining transition to comfort care, hospice. Dementia with inappropriate behavior, mood disorder improved Consulted psychiatry for further evaluation, who indicated that this is a frontal lobe dementia Discontinued Remeron Family states that he does not want his father receiving any antidepressants , antianxiety, antipsychotic medications Parkinson's disease: Patient has dementia and resting tremor. Chronic, stable. GI bleed with presenting of Upper GI bleed, patient with intermittent rectal bleeding: Software Configuration Engineer consulted and Presumed hemorrhoids, continue Anusol HC as needed Presumed hemorrhoids Follow-up hemoglobin has remained stable Continue PPI. Protein calorie malnutrition: Improving PEG tube replaced 11/20/16 Consulted dietitian who indicated that patient may be converted to bolus feeding Jevity 1.5, 1.5, 360ml(1.5 cans)@ 0800, 1100, 1400 and 240ml(1-can)@ 1700 and 2000 Ensure Enlive 3 times a day since pudding 3 times a day Prealbumin level 25 Hypotension with episodes of hypertension: Stable Continue monitor blood pressure Continue Midodrine. obstructive uropathy: Resolved. With recurrent urinary tract infections. Treat only if symptomatic Suprapubic catheter in place, changed monthly, last changed 03/08/17 Seborrhea dermatitis, recurrent Counseled nursing staff on proper hygiene to avoid recurrence Responds well to Hydrocortisone cream. Continue to use when active DVT prophylaxis: Sequential compression devices Avoid chemical prophylaxis secondary to intermittent rectal bleeding Records were reviewed. Awaiting case management for discharge planning. No change in current treatment plan. Discharge Planning Discharge planning per case management. Jaguar Walker Mar 30, 2017 08:11
[2017-03-30] MEDS: FREE WATER G-TUBE SCH (09:00)
[2017-03-30] MEDS: NYSTATIN 100,000 U/GM PWD 15 GM BTL TOPICAL SCH ×2 (09:00→22:05)
[2017-03-30] MEDS: ALLOPURINOL 100 MG TAB PEG SCH (10:21)
[2017-03-30] MEDS: LANSOPRAZOLE SOLUTAB 30 MG TAB PEG SCH (10:22)
[2017-03-30 21:42] VITALS: BP 104/60; PULSE 68; RESP 16; TEMP 97.6; O2SAT 97
[2017-03-31] MEDS: hydrOXYzine HCL 10 MG TAB SCH ×5 (01:26→22:43)
[2017-03-31] MEDS: MIDODRINE 5 MG TAB PEG SCH ×3 (06:46→17:36)
[2017-03-31 09:00] VITALS: BP 111/67; PULSE 72; RESP 18; TEMP 98.2; O2SAT 95
[2017-03-31] MEDS: FREE WATER G-TUBE SCH (09:00)
--- NOTE | 2017-03-31 09:28 | HHI.PR ---
Subjective Remarks Patient seen and examined today for follow-up on profile weakness, dementia. Patient denies any new complaints. No change clinical status. No acute events overnight. Vital signs are stable, afebrile Objective Vitals Vital Signs Date Time Temp Pulse Resp B/P (MAP) Pulse Ox O2 Delivery O2 Flow Rate FiO2 03/31/17 09:00 98.2 72 18 111/67 (82) 95 03/30/17 21:42 97.6 68 16 104/60 (75) 97 I/O 03/30/17 03/30/17 03/30/17 03/31/17 03/31/17 03/31/17 07:00 15:00 23:00 07:00 15:00 23:00 Intake Total 100 ml 1385 ml Output Total 1400 ml 850 ml 1000 ml Balance -1300 ml -850 ml 1385 ml -1000 ml Tube Feeding 785 ml Other 100 ml 600 ml Output Urine Total 1400 ml 850 ml 1000 ml # Bowel Movements 1 1 2 Objective Remarks GENERAL: Well-developed, well-nourished, in no acute distress. HEENT: Head is normocephalic without any lesions or masses noted. Facial features are symmetric. Eyes: Extraocular muscles are intact. Conjunctivae were clear. NECK: Trachea midline no deviation. CARDIAC: Regular rhythm, regular rate. S1/S2 are heard. No murmurs gallops or rubs. LUNGS: Clear to auscultation bilaterally. No wheeze, rhonchi or rales. No use of accessory muscles on inspiration or expiration. ABDOMEN: Soft, nontender. Nondistended. Bowel sounds heard in all 4 quadrants. No organomegaly or masses. Negative rebound, negative guarding, suprapubic catheter in place, PEG tube in place with no signs of infection, EXTREMITIES: No edema, pulses are equal bilaterally. No cyanosis or clubbing NEUROLOGY: Mood and affect appear appropriate. Cranial nerves II through XII grossly intact. Moving all extremities Procedures None Urinary Catheter: No Date of Insertion: Mar 08, 2017 Vascular Central Line Catheter: No A/P Assessment and Plan Pruritus Continue Atarax 10 mg every 6 hours May use mittens to protect patient from scratching Weakness: Continue physical therapy, however patient refuses get out of bed majority of the time Nursing staff to get patient up out of bed at least 3 times daily Palliative care requested consult with psychiatry to see if patient has capacity to make decisions. Psychiatry evaluated patient states that he does not have capacity make his own decisions Palliative care discussed with family who is declining transition to comfort care, hospice. Dementia with inappropriate behavior, mood disorder improved Consulted psychiatry for further evaluation, who indicated that this is a frontal lobe dementia Discontinued Remeron Family states that he does not want his father receiving any antidepressants , antianxiety, antipsychotic medications Parkinson's disease: Patient has dementia and resting tremor. Chronic, stable. GI bleed with presenting of Upper GI bleed, patient with intermittent rectal bleeding: Deck Engine Operator consulted and Presumed hemorrhoids, continue Anusol HC as needed Presumed hemorrhoids Follow-up hemoglobin has remained stable Continue PPI. Protein calorie malnutrition: Improving PEG tube replaced 11/20/16 Consulted dietitian who indicated that patient may be converted to bolus feeding Jevity 1.5, 1.5, 360ml(1.5 cans)@ 0800, 1100, 1400 and 240ml(1-can)@ 1700 and 2000 Ensure Enlive 3 times a day since pudding 3 times a day Prealbumin level 25 Hypotension with episodes of hypertension: Stable Continue monitor blood pressure Continue Midodrine. obstructive uropathy: Resolved. With recurrent urinary tract infections. Treat only if symptomatic Suprapubic catheter in place, changed monthly, last changed 03/08/17 Seborrhea dermatitis, recurrent Counseled nursing staff on proper hygiene to avoid recurrence Responds well to Hydrocortisone cream. Continue to use when active DVT prophylaxis: Sequential compression devices Avoid chemical prophylaxis secondary to intermittent rectal bleeding Records were reviewed. No change in current treatment plan. Awaiting case management for discharge planning. Discharge Planning Discharge planning per case management. Jaguar Walker Mar 31, 2017 09:28
[2017-03-31] MEDS: NYSTATIN 100,000 U/GM PWD 15 GM BTL TOPICAL SCH ×2 (09:55→22:44)
[2017-03-31] MEDS: ALLOPURINOL 100 MG TAB PEG SCH (09:55)
[2017-03-31] MEDS: LANSOPRAZOLE SOLUTAB 30 MG TAB PEG SCH (09:55)
[2017-03-31 20:00] VITALS: BP 112/61; PULSE 70; RESP 20; TEMP 96.7; O2SAT 95
[2017-04-01] MEDS: hydrOXYzine HCL 10 MG TAB SCH ×3 (06:22→17:36)
[2017-04-01] MEDS: MIDODRINE 5 MG TAB PEG SCH ×3 (06:22→17:36)
[2017-04-01] MEDS: NYSTATIN 100,000 U/GM PWD 15 GM BTL TOPICAL SCH ×2 (07:27→20:48)
[2017-04-01] MEDS: LANSOPRAZOLE SOLUTAB 30 MG TAB PEG SCH (07:27)
[2017-04-01] MEDS: FREE WATER G-TUBE SCH (07:28)
[2017-04-01] MEDS: ALLOPURINOL 100 MG TAB PEG SCH (07:28)
[2017-04-01 08:23] VITALS: BP 129/70; PULSE 66; RESP 18; TEMP 97.1; O2SAT 92
--- NOTE | 2017-04-01 09:25 | HHI.PR ---
Subjective Remarks Follow up weakness and dementia. Patient seen and examined, lying in bed comfortably. Pleasant and smiling. Following commands appropriately. Denies any pain or discomfort. Denies any chest pain, headache, abdominal pain, n/v/d. No reports of any acute events overnight. Patient denies any present urticaria, there are several areas on bilateral upper extremities where patient has been scratching. Continue Atarax. Objective Vitals Vital Signs Date Time Temp Pulse Resp B/P (MAP) Pulse Ox O2 Delivery O2 Flow Rate FiO2 04/01/17 08:23 97.1 66 18 129/70 (89) 92 03/31/17 20:00 96.7 70 20 112/61 (78) 95 I/O 03/31/17 03/31/17 03/31/17 04/01/17 04/01/17 04/01/17 07:00 15:00 23:00 07:00 15:00 23:00 Intake Total 2120 ml 100 ml Output Total 1000 ml 500 ml 900 ml 200 ml Balance -1000 ml 1620 ml -800 ml -200 ml Intake Oral 0 ml Tube Feeding 1320 ml Other 800 ml 100 ml Output Urine Total 1000 ml 500 ml 900 ml 200 ml # Bowel Movements 2 1 0 Imaging Last Impressions Gastrostomy Tube Placement 11/20/16 0000 Signed Impressions: Service Date/Time: Sunday, November 20, 2016 14:06 - CONCLUSION: Uncomplicated gastrostomy tube placement as above. Cholelithiasis. Nitish Felton Jr., MD Abdomen/Pelvis CT 03/06/16 0000 Signed Impressions: Service Date/Time: Sunday, March 06, 2016 22:27 - CONCLUSION: 1. Resolution of right sided hydronephrosis. 2. Renal cysts. 3. Bladder is decompressed and there is circumferential bladder wall thickening and intraluminal air identified. A cystitis is not excluded. 4. A large stool ball is noted within the rectum. 5. Cholelithiasis. 6. Nonobstructing left renal calculus. Speedy Noriega MD Abdomen X-Ray 01/30/16 0000 Signed Impressions: Service Date/Time: Saturday, January 30, 2016 14:17 - CONCLUSION: Satisfactory PEG tube positioning Mikael Valladares MD Objective Remarks GENERAL: Well-developed, frail male patient lying in bed in NAD. SKIN: Warm and dry. No rash. Dry skin. Bilateral upper extremities with multiple abrasions from self inflicting scratching. HEENT: Normocephalic. Atraumatic. Pupils equal and round. No scleral icterus. No injection or drainage. No nasal bleeding or discharge. Mucous membranes pink and moist. EOMs intact. NECK: Supple. Trachea midline. CARDIOVASCULAR: Regular rate and rhythm. S1, S2 noted. No murmur appreciated. RESPIRATORY: No accessory muscle use. Clear to auscultation. Breath sounds equal bilaterally. GASTROINTESTINAL: Abdomen soft, non-tender, nondistended. Normoactive bowel sounds x4. No guarding noted. PEG tube in place, no drainage noted, no erythema , c/d/i. MUSCULOSKELETAL: No obvious deformities. Extremities without clubbing, cyanosis , or edema. NEUROLOGICAL: Awake and alert. No obvious cranial nerve deficits. Moving all extremities. PSYCHIATRIC: Appropriate mood and affect. Procedures None Date of Insertion: Mar 08, 2017 A/P Problem List: (1) Decreased urine output ICD Code: R34 - Anuria and oliguria Status: Acute (2) Prerenal azotemia ICD Code: R79.89 - Other specified abnormal findings of blood chemistry Status: Acute (3) Hematuria ICD Code: R31.9 - Hematuria, unspecified Status: Acute Assessment and Plan Pruritus Continue Atarax 10 mg every 6 hours May use mittens to protect patient from scratching Weakness Continue physical therapy, however patient refuses get out of bed majority of the time Nursing staff to get patient up out of bed at least 3 times daily Palliative care requested consult with psychiatry to see if patient has capacity to make decisions. Psychiatry evaluated patient states that he does not have capacity make his own decisions Palliative care discussed with family who is declining transition to comfort care, hospice. Dementia with inappropriate behavior, mood disorder improved Consulted psychiatry for further evaluation, who indicated that this is a frontal lobe dementia Discontinued Remeron Family states that he does not want his father receiving any antidepressants , antianxiety, antipsychotic medications Parkinson's disease: Patient has dementia and resting tremor. Chronic, stable. GI bleed with presenting of Upper GI bleed, patient with intermittent rectal bleeding: Machine Biller consulted and Presumed hemorrhoids, continue Anusol HC as needed Presumed hemorrhoids Follow-up hemoglobin has remained stable Continue PPI. Protein calorie malnutrition: Improving PEG tube replaced 11/20/16 Consulted dietitian who indicated that patient may be converted to bolus feeding Jevity 1.5, 1.5, 360ml(1.5 cans)@ 0800, 1100, 1400 and 240ml(1-can)@ 1700 and 2000 Ensure Enlive 3 times a day since pudding 3 times a day Prealbumin level 25 Hypotension with episodes of hypertension: Stable Continue monitor blood pressure Continue Midodrine. obstructive uropathy: Resolved. With recurrent urinary tract infections. Treat only if symptomatic Suprapubic catheter in place, changed monthly, last changed 03/08/17 Seborrhea dermatitis, recurrent Counseled nursing staff on proper hygiene to avoid recurrence Responds well to Hydrocortisone cream. Continue to use when active DVT prophylaxis: Sequential compression devices Avoid chemical prophylaxis secondary to intermittent rectal bleeding Records were reviewed. No change in current treatment plan. Awaiting case management for discharge planning. Discharge Planning Discharge planning per case management. Marium Abdi Apr 01, 2017 09:25
[2017-04-01 20:00] VITALS: BP 112/62; PULSE 96; RESP 18; TEMP 97.4; O2SAT 92
[2017-04-02] MEDS: hydrOXYzine HCL 10 MG TAB SCH ×4 (00:05→17:16)
[2017-04-02] MEDS: MIDODRINE 5 MG TAB PEG SCH ×3 (06:24→17:15)
[2017-04-02 07:50] VITALS: BP 113/64; PULSE 86; RESP 20; TEMP 97.4; O2SAT 96
[2017-04-02] MEDS: FREE WATER G-TUBE SCH (07:57)
[2017-04-02] MEDS: LANSOPRAZOLE SOLUTAB 30 MG TAB PEG SCH (07:57)
[2017-04-02] MEDS: ALLOPURINOL 100 MG TAB PEG SCH (07:57)
[2017-04-02] MEDS: NYSTATIN 100,000 U/GM PWD 15 GM BTL TOPICAL SCH (07:57)
--- NOTE | 2017-04-02 14:03 | HHI.PR ---
Subjective Remarks Follow up weakness and dementia. Patient seen and examined lying in bed sleeping. Awakens to voice, follows commands. Denies any pain. No change in clinical condition. Patient denies any further urticaria. Bedside RN reporting continued scratching and picking. Objective Vitals Vital Signs Date Time Temp Pulse Resp B/P (MAP) Pulse Ox O2 Delivery O2 Flow Rate FiO2 04/02/17 07:50 97.4 86 20 113/64 (80) 96 04/01/17 20:00 97.4 96 18 112/62 (79) 92 I/O 04/01/17 04/01/17 04/01/17 04/02/17 04/02/17 04/02/17 07:00 15:00 23:00 07:00 15:00 23:00 Intake Total 100 ml 2319 ml 660 ml Output Total 900 ml 560 ml 550 ml Balance -800 ml -560 ml 2319 ml 110 ml Tube Feeding 1320 ml 240 ml Other 100 ml 999 ml 420 ml Output Urine Total 900 ml 560 ml 550 ml # Bowel Movements 0 0 Imaging Last Impressions Gastrostomy Tube Placement 11/20/16 0000 Signed Impressions: Service Date/Time: Sunday, November 20, 2016 14:06 - CONCLUSION: Uncomplicated gastrostomy tube placement as above. Cholelithiasis. Nitish Felton Jr., MD Abdomen/Pelvis CT 03/06/16 0000 Signed Impressions: Service Date/Time: Sunday, March 06, 2016 22:27 - CONCLUSION: 1. Resolution of right sided hydronephrosis. 2. Renal cysts. 3. Bladder is decompressed and there is circumferential bladder wall thickening and intraluminal air identified. A cystitis is not excluded. 4. A large stool ball is noted within the rectum. 5. Cholelithiasis. 6. Nonobstructing left renal calculus. Speedy Noriega MD Abdomen X-Ray 01/30/16 0000 Signed Impressions: Service Date/Time: Saturday, January 30, 2016 14:17 - CONCLUSION: Satisfactory PEG tube positioning Mikael Valladares MD Objective Remarks GENERAL: Well-developed, frail male patient lying in bed in [facility]. SKIN: Warm and dry. No rash. Dry skin. Bilateral upper extremities with multiple abrasions from self inflicting scratching. HEENT: Normocephalic. Atraumatic. Pupils equal and round. No scleral icterus. No injection or drainage. No nasal bleeding or discharge. Mucous membranes pink and moist. EOMs intact. NECK: Supple. Trachea midline. CARDIOVASCULAR: Regular rate and rhythm. S1, S2 noted. No murmur appreciated. RESPIRATORY: No accessory muscle use. Clear to auscultation. Breath sounds equal bilaterally. GASTROINTESTINAL: Abdomen soft, non-tender, nondistended. Normoactive bowel sounds x4. No guarding noted. PEG tube in place, no drainage noted, no erythema , c/d/i. MUSCULOSKELETAL: No obvious deformities. Extremities without clubbing, cyanosis , or edema. NEUROLOGICAL: Awake and alert. No obvious cranial nerve deficits. Moving all extremities. PSYCHIATRIC: Appropriate mood and affect. Procedures None Date of Insertion: Mar 08, 2017 A/P Problem List: (1) Decreased urine output ICD Code: R34 - Anuria and oliguria Status: Acute (2) Prerenal azotemia ICD Code: R79.89 - Other specified abnormal findings of blood chemistry Status: Acute (3) Hematuria ICD Code: R31.9 - Hematuria, unspecified Status: Acute Assessment and Plan Pruritus Continue Atarax 10 mg every 6 hours May use mittens to protect patient from scratching Weakness Continue physical therapy, however patient refuses get out of bed majority of the time Nursing staff to get patient up out of bed at least 3 times daily Palliative care requested consult with psychiatry to see if patient has capacity to make decisions. Psychiatry evaluated patient states that he does not have capacity make his own decisions Palliative care discussed with family who is declining transition to comfort care, hospice. Dementia with inappropriate behavior, mood disorder improved Consulted psychiatry for further evaluation, who indicated that this is a frontal lobe dementia Discontinued Remeron Family states that he does not want his father receiving any antidepressants , antianxiety, antipsychotic medications Parkinson's disease: Patient has dementia and resting tremor. Chronic, stable. GI bleed with presenting of Upper GI bleed, patient with intermittent rectal bleeding: Magisterial District Judge consulted and Presumed hemorrhoids, continue Anusol HC as needed Presumed hemorrhoids Follow-up hemoglobin has remained stable Continue PPI. Protein calorie malnutrition: Improving PEG tube replaced 11/20/16 Consulted dietitian who indicated that patient may be converted to bolus feeding Jevity 1.5, 1.5, 360ml(1.5 cans)@ 0800, 1100, 1400 and 240ml(1-can)@ 1700 and 2000 Ensure Enlive 3 times a day since pudding 3 times a day Prealbumin level 29 Hypotension with episodes of hypertension: Stable Continue monitor blood pressure Continue Midodrine. obstructive uropathy: Resolved. With recurrent urinary tract infections. Treat only if symptomatic Suprapubic catheter in place, changed monthly, last changed 03/08/17 Seborrhea dermatitis, recurrent Counseled nursing staff on proper hygiene to avoid recurrence Responds well to Hydrocortisone cream. Continue to use when active DVT prophylaxis: Sequential compression devices Avoid chemical prophylaxis secondary to intermittent rectal bleeding Records were reviewed. No change in current treatment plan. Awaiting case management for discharge planning. Discharge Planning Discharge planning per case management. Marium Abdi Apr 02, 2017 14:03
[2017-04-02 20:00] VITALS: BP 110/66; PULSE 74; RESP 20; TEMP 96.9; O2SAT 94
[2017-04-03] MEDS: hydrOXYzine HCL 10 MG TAB SCH ×3 (00:16→12:56)
[2017-04-03] MEDS: MIDODRINE 5 MG TAB PEG SCH ×3 (06:07→18:26)
[2017-04-03 08:00] VITALS: BP 117/77; PULSE 75; RESP 18; TEMP 97.6; O2SAT 98
[2017-04-03] MEDS: LANSOPRAZOLE SOLUTAB 30 MG TAB PEG SCH (08:23)
[2017-04-03] MEDS: FREE WATER G-TUBE SCH (08:23)
[2017-04-03] MEDS: ALLOPURINOL 100 MG TAB PEG SCH (08:23)
--- NOTE | 2017-04-03 16:43 | HHI.PR ---
Subjective Remarks Follow up weakness and dementia. Patient seen and examined, lying in bed comfortably. Smiling and pleasant. Follow commands. No reports of any acute events overnight. Objective Vitals Vital Signs Date Time Temp Pulse Resp B/P (MAP) Pulse Ox O2 Delivery O2 Flow Rate FiO2 04/03/17 08:00 97.6 75 18 117/77 (90) 98 04/02/17 20:00 96.9 74 20 110/66 (81) 94 I/O 04/02/17 04/02/17 04/02/17 04/03/17 04/03/17 04/03/17 07:00 15:00 23:00 07:00 15:00 23:00 Intake Total 660 ml 2220 ml 660 ml 0 ml Output Total 550 ml 650 ml 600 ml 550 ml Balance 110 ml 1570 ml 60 ml -550 ml Intake Oral 0 ml 0 ml Tube Feeding 240 ml 1320 ml 240 ml Other 420 ml 900 ml 420 ml Output Urine Total 550 ml 650 ml 600 ml 550 ml # Bowel Movements 0 2 2 1 Imaging Last Impressions Gastrostomy Tube Placement 11/20/16 0000 Signed Impressions: Service Date/Time: Sunday, November 20, 2016 14:06 - CONCLUSION: Uncomplicated gastrostomy tube placement as above. Cholelithiasis. Nitish Felton Jr., MD Abdomen/Pelvis CT 03/06/16 0000 Signed Impressions: Service Date/Time: Sunday, March 06, 2016 22:27 - CONCLUSION: 1. Resolution of right sided hydronephrosis. 2. Renal cysts. 3. Bladder is decompressed and there is circumferential bladder wall thickening and intraluminal air identified. A cystitis is not excluded. 4. A large stool ball is noted within the rectum. 5. Cholelithiasis. 6. Nonobstructing left renal calculus. Speedy Noriega MD Abdomen X-Ray 01/30/16 0000 Signed Impressions: Service Date/Time: Saturday, January 30, 2016 14:17 - CONCLUSION: Satisfactory PEG tube positioning Mikael Valladares MD Objective Remarks GENERAL: Well-developed, frail male patient lying in bed in NAD. SKIN: Warm and dry. No rash. Dry skin. Bilateral upper extremities with multiple abrasions from self inflicting scratching. HEENT: Normocephalic. Atraumatic. Pupils equal and round. No scleral icterus. No injection or drainage. No nasal bleeding or discharge. Mucous membranes pink and moist. EOMs intact. NECK: Supple. Trachea midline. CARDIOVASCULAR: Regular rate and rhythm. S1, S2 noted. No murmur appreciated. RESPIRATORY: No accessory muscle use. Clear to auscultation. Breath sounds equal bilaterally. GASTROINTESTINAL: Abdomen soft, non-tender, nondistended. Normoactive bowel sounds x4. No guarding noted. PEG tube in place, no drainage noted, no erythema , c/d/i. MUSCULOSKELETAL: No obvious deformities. Extremities without clubbing, cyanosis , or edema. NEUROLOGICAL: Awake and alert. No obvious cranial nerve deficits. Moving all extremities. PSYCHIATRIC: Appropriate mood and affect. Procedures None Date of Insertion: Mar 08, 2017 A/P Problem List: (1) Decreased urine output ICD Code: R34 - Anuria and oliguria Status: Acute (2) Prerenal azotemia ICD Code: R79.89 - Other specified abnormal findings of blood chemistry Status: Acute (3) Hematuria ICD Code: R31.9 - Hematuria, unspecified Status: Acute Assessment and Plan Pruritus, resolved. Will dc Atarax 10 mg every 6 hours May use mittens to protect patient from scratching. Continue to monitor. Weakness Continue physical therapy, however patient refuses get out of bed majority of the time Nursing staff to get patient up out of bed at least 3 times daily Palliative care requested consult with psychiatry to see if patient has capacity to make decisions. Psychiatry evaluated patient states that he does not have capacity make his own decisions Palliative care discussed with family who is declining transition to comfort care, hospice. Dementia with inappropriate behavior, mood disorder improved Consulted psychiatry for further evaluation, who indicated that this is a frontal lobe dementia Discontinued Remeron Family states that he does not want his father receiving any antidepressants , antianxiety, antipsychotic medications Parkinson's disease: Patient has dementia and resting tremor. Chronic, stable. GI bleed with presenting of Upper GI bleed, patient with intermittent rectal bleeding: Blue Print Control Clerk consulted and Presumed hemorrhoids, continue Anusol HC as needed Presumed hemorrhoids Follow-up hemoglobin has remained stable Continue PPI. Protein calorie malnutrition: Improving PEG tube replaced 11/20/16 Consulted dietitian who indicated that patient may be converted to bolus feeding Jevity 1.5, 1.5, 360ml(1.5 cans)@ 0800, 1100, 1400 and 240ml(1-can)@ 1700 and 2000 Ensure Enlive 3 times a day since pudding 3 times a day Prealbumin level 29 Hypotension with episodes of hypertension: Stable Continue monitor blood pressure Continue Midodrine. obstructive uropathy: Resolved. With recurrent urinary tract infections. Treat only if symptomatic Suprapubic catheter in place, changed monthly, last changed 03/08/17 Seborrhea dermatitis, recurrent Counseled nursing staff on proper hygiene to avoid recurrence Responds well to Hydrocortisone cream. Continue to use when active DVT prophylaxis: Sequential compression devices Avoid chemical prophylaxis secondary to intermittent rectal bleeding Records were reviewed. No change in current treatment plan. Awaiting case management for discharge planning. Discharge Planning Discharge planning per case management. Marium Abdi Apr 03, 2017 16:43
[2017-04-03 20:00] VITALS: BP 114/69; PULSE 72; RESP 20; TEMP 97.5; O2SAT 95
[2017-04-04] MEDS: MIDODRINE 5 MG TAB PEG SCH ×3 (06:02→16:58)
[2017-04-04 08:00] VITALS: BP 101/72; PULSE 71; RESP 18; TEMP 97.2; O2SAT 96
[2017-04-04] MEDS: FREE WATER G-TUBE SCH (08:43)
[2017-04-04] MEDS: LANSOPRAZOLE SOLUTAB 30 MG TAB PEG SCH (08:43)
[2017-04-04] MEDS: ALLOPURINOL 100 MG TAB PEG SCH (08:43)
--- NOTE | 2017-04-04 17:26 | HHI.PR ---
Subjective Remarks Follow up weakness and dementia. Patient seen and examined, lying in bed comfortably. No change in clinical condition. No acute events overnight. Afebrile. Objective Vitals Vital Signs Date Time Temp Pulse Resp B/P (MAP) Pulse Ox O2 Delivery O2 Flow Rate FiO2 04/04/17 08:00 97.2 71 18 101/72 (82) 96 04/03/17 20:00 97.5 72 20 114/69 (84) 95 I/O 04/03/17 04/03/17 04/03/17 04/04/17 04/04/17 04/04/17 07:00 15:00 23:00 07:00 15:00 23:00 Intake Total 660 ml 0 ml 1920 ml 0 ml 920 ml Output Total 600 ml 550 ml 450 ml 475 ml Balance 60 ml -550 ml 1920 ml -450 ml -475 ml 920 ml Intake Oral 0 ml 0 ml 0 ml Tube Feeding 240 ml 1320 ml 720 ml Other 420 ml 600 ml 200 ml Output Urine Total 600 ml 550 ml 450 ml 475 ml # Bowel Movements 2 1 1 3 1 Imaging Last Impressions Gastrostomy Tube Placement 11/20/16 0000 Signed Impressions: Service Date/Time: Sunday, November 20, 2016 14:06 - CONCLUSION: Uncomplicated gastrostomy tube placement as above. Cholelithiasis. Nitish Felton Jr., MD Abdomen/Pelvis CT 03/06/16 0000 Signed Impressions: Service Date/Time: Sunday, March 06, 2016 22:27 - CONCLUSION: 1. Resolution of right sided hydronephrosis. 2. Renal cysts. 3. Bladder is decompressed and there is circumferential bladder wall thickening and intraluminal air identified. A cystitis is not excluded. 4. A large stool ball is noted within the rectum. 5. Cholelithiasis. 6. Nonobstructing left renal calculus. Speedy Noriega MD Abdomen X-Ray 01/30/16 0000 Signed Impressions: Service Date/Time: Saturday, January 30, 2016 14:17 - CONCLUSION: Satisfactory PEG tube positioning Mikael Valladares MD Objective Remarks GENERAL: Well-developed, frail male patient lying in bed in [facility]. SKIN: Warm and dry. No rash. Dry skin. Bilateral upper extremities with multiple abrasions from self inflicting scratching. HEENT: Normocephalic. Atraumatic. Pupils equal and round. No scleral icterus. No injection or drainage. No nasal bleeding or discharge. Mucous membranes pink and moist. EOMs intact. NECK: Supple. Trachea midline. CARDIOVASCULAR: Regular rate and rhythm. S1, S2 noted. No murmur appreciated. RESPIRATORY: No accessory muscle use. Clear to auscultation. Breath sounds equal bilaterally. GASTROINTESTINAL: Abdomen soft, non-tender, nondistended. Normoactive bowel sounds x4. No guarding noted. PEG tube in place, no drainage noted, no erythema , c/d/i. MUSCULOSKELETAL: No obvious deformities. Extremities without clubbing, cyanosis , or edema. NEUROLOGICAL: Awake and alert. No obvious cranial nerve deficits. Moving all extremities. PSYCHIATRIC: Appropriate mood and affect. Procedures None Date of Insertion: Mar 08, 2017 A/P Problem List: (1) Decreased urine output ICD Code: R34 - Anuria and oliguria Status: Acute (2) Prerenal azotemia ICD Code: R79.89 - Other specified abnormal findings of blood chemistry Status: Acute (3) Hematuria ICD Code: R31.9 - Hematuria, unspecified Status: Acute Assessment and Plan Pruritus, resolved. Will dc Atarax 10 mg every 6 hours May use mittens to protect patient from scratching. Continue to monitor. Weakness Continue physical therapy, however patient refuses get out of bed majority of the time Nursing staff to get patient up out of bed at least 3 times daily Palliative care requested consult with psychiatry to see if patient has capacity to make decisions. Psychiatry evaluated patient states that he does not have capacity make his own decisions Palliative care discussed with family who is declining transition to comfort care, hospice. Dementia with inappropriate behavior, mood disorder improved Consulted psychiatry for further evaluation, who indicated that this is a frontal lobe dementia Discontinued Remeron Family states that he does not want his father receiving any antidepressants , antianxiety, antipsychotic medications Parkinson's disease: Patient has dementia and resting tremor. Chronic, stable. GI bleed with presenting of Upper GI bleed, patient with intermittent rectal bleeding: Heat Curer consulted and Presumed hemorrhoids, continue Anusol HC as needed Presumed hemorrhoids Follow-up hemoglobin has remained stable Continue PPI. Protein calorie malnutrition: Improving PEG tube replaced 11/20/16 Consulted dietitian who indicated that patient may be converted to bolus feeding Jevity 1.5, 1.5, 360ml(1.5 cans)@ 0800, 1100, 1400 and 240ml(1-can)@ 1700 and 2000 Ensure Enlive 3 times a day since pudding 3 times a day Prealbumin level 29 Hypotension with episodes of hypertension: Stable Continue monitor blood pressure Continue Midodrine. obstructive uropathy: Resolved. With recurrent urinary tract infections. Treat only if symptomatic Suprapubic catheter in place, changed monthly, last changed 03/08/17 Seborrhea dermatitis, recurrent Counseled nursing staff on proper hygiene to avoid recurrence Responds well to Hydrocortisone cream. Continue to use when active DVT prophylaxis: Sequential compression devices Avoid chemical prophylaxis secondary to intermittent rectal bleeding Records were reviewed. No change in current treatment plan. Awaiting case management for discharge planning. Discharge Planning Discharge planning per case management. Marium Abdi Apr 04, 2017 17:26
[2017-04-04 20:00] VITALS: BP 117/80; PULSE 68; RESP 18; TEMP 97.6; O2SAT 95
[2017-04-05] MEDS: MIDODRINE 5 MG TAB PEG SCH ×3 (06:07→16:12)
[2017-04-05 08:00] VITALS: BP 115/72; PULSE 82; RESP 16; TEMP 97.2; O2SAT 93
[2017-04-05] MEDS: ALLOPURINOL 100 MG TAB PEG SCH (08:21)
[2017-04-05] MEDS: LANSOPRAZOLE SOLUTAB 30 MG TAB PEG SCH (08:21)
[2017-04-05] MEDS: FREE WATER G-TUBE SCH (08:22)
[2017-04-05] MEDS: ACETAMINOPHEN 325 MG TAB PEG PRN (10:03)
[2017-04-05] MEDS: NYSTATIN 100,000 U/GM PWD 15 GM BTL TOPICAL SCH ×2 (16:12→21:10)
--- NOTE | 2017-04-05 17:04 | HHI.PR ---
Subjective Remarks Follow up weakness and dementia. Patient lying in bed awake and alert. RN at bedside. No new changes. Groin and buttock rash noted. Objective Vitals Vital Signs Date Time Temp Pulse Resp B/P (MAP) Pulse Ox O2 Delivery O2 Flow Rate FiO2 04/05/17 08:00 97.2 82 16 115/72 (86) 93 04/04/17 20:00 97.6 68 18 117/80 (92) 95 I/O 04/04/17 04/04/17 04/04/17 04/05/17 04/05/17 04/05/17 07:00 15:00 23:00 07:00 15:00 23:00 Intake Total 0 ml 920 ml 660 ml Output Total 450 ml 475 ml 350 ml 450 ml Balance -450 ml -475 ml 920 ml 310 ml -450 ml Intake Oral 0 ml 0 ml Tube Feeding 720 ml 240 ml Other 200 ml 420 ml Output Urine Total 450 ml 475 ml 350 ml 450 ml # Bowel Movements 3 1 1 2 Imaging Last Impressions Gastrostomy Tube Placement 11/20/16 0000 Signed Impressions: Service Date/Time: Sunday, November 20, 2016 14:06 - CONCLUSION: Uncomplicated gastrostomy tube placement as above. Cholelithiasis. Nitish Felton Jr., MD Abdomen/Pelvis CT 03/06/16 0000 Signed Impressions: Service Date/Time: Sunday, March 06, 2016 22:27 - CONCLUSION: 1. Resolution of right sided hydronephrosis. 2. Renal cysts. 3. Bladder is decompressed and there is circumferential bladder wall thickening and intraluminal air identified. A cystitis is not excluded. 4. A large stool ball is noted within the rectum. 5. Cholelithiasis. 6. Nonobstructing left renal calculus. Speedy Noriega MD Abdomen X-Ray 01/30/16 0000 Signed Impressions: Service Date/Time: Saturday, January 30, 2016 14:17 - CONCLUSION: Satisfactory PEG tube positioning Mikael Valladares MD Objective Remarks GENERAL: Well-developed, frail male patient lying in bed in [facility]. SKIN: Warm and dry. No rash. Dry skin. Bilateral upper extremities with multiple abrasions from self inflicting scratching. HEENT: Normocephalic. Atraumatic. Pupils equal and round. No scleral icterus. No injection or drainage. No nasal bleeding or discharge. Mucous membranes pink and moist. EOMs intact. NECK: Supple. Trachea midline. CARDIOVASCULAR: Regular rate and rhythm. S1, S2 noted. No murmur appreciated. RESPIRATORY: No accessory muscle use. Clear to auscultation. Breath sounds equal bilaterally. GASTROINTESTINAL: Abdomen soft, non-tender, nondistended. Normoactive bowel sounds x4. No guarding noted. PEG tube in place, no drainage noted, no erythema , c/d/i. MUSCULOSKELETAL: No obvious deformities. Extremities without clubbing, cyanosis , or edema. NEUROLOGICAL: Awake and alert. No obvious cranial nerve deficits. Moving all extremities. PSYCHIATRIC: Appropriate mood and affect. Procedures None Date of Insertion: Mar 08, 2017 A/P Problem List: (1) Decreased urine output ICD Code: R34 - Anuria and oliguria Status: Acute (2) Prerenal azotemia ICD Code: R79.89 - Other specified abnormal findings of blood chemistry Status: Acute (3) Hematuria ICD Code: R31.9 - Hematuria, unspecified Status: Acute Assessment and Plan Pruritus, resolved. Will dc Atarax 10 mg every 6 hours May use mittens to protect patient from scratching. Continue to monitor. Weakness Continue physical therapy, however patient refuses get out of bed majority of the time Nursing staff to get patient up out of bed at least 3 times daily Palliative care requested consult with psychiatry to see if patient has capacity to make decisions. Psychiatry evaluated patient states that he does not have capacity make his own decisions Palliative care discussed with family who is declining transition to comfort care, hospice. Dementia with inappropriate behavior, mood disorder improved Consulted psychiatry for further evaluation, who indicated that this is a frontal lobe dementia Discontinued Remeron Family states that he does not want his father receiving any antidepressants , antianxiety, antipsychotic medications Parkinson's disease: Patient has dementia and resting tremor. Chronic, stable. GI bleed with presenting of Upper GI bleed, patient with intermittent rectal bleeding: Acquisition Analyst consulted and Presumed hemorrhoids, continue Anusol HC as needed Presumed hemorrhoids Follow-up hemoglobin has remained stable Continue PPI. Protein calorie malnutrition: Improving PEG tube replaced 11/20/16 Consulted dietitian who indicated that patient may be converted to bolus feeding Jevity 1.5, 1.5, 360ml(1.5 cans)@ 0800, 1100, 1400 and 240ml(1-can)@ 1700 and 2000 Ensure Enlive 3 times a day since pudding 3 times a day Prealbumin level 29 Hypotension with episodes of hypertension: Stable Continue monitor blood pressure Continue Midodrine. obstructive uropathy: Resolved. With recurrent urinary tract infections. Treat only if symptomatic Suprapubic catheter in place, changed monthly, last changed 03/08/17 Seborrhea dermatitis, recurrent Counseled nursing staff on proper hygiene to avoid recurrence Responds well to Hydrocortisone cream. Continue to use when active DVT prophylaxis: Sequential compression devices Avoid chemical prophylaxis secondary to intermittent rectal bleeding Records were reviewed. No change in current treatment plan. Awaiting case management for discharge planning. Discharge Planning Discharge planning per case management. Marium Abdi Apr 05, 2017 17:04
[2017-04-05 20:00] VITALS: BP 104/67; PULSE 72; RESP 16; TEMP 97.8; O2SAT 95
[2017-04-05] MEDS: NYSTATIN 100,000 U/GM OINT 15 GM TUBE TOPICAL SCH (21:10)
[2017-04-06] MEDS: NYSTATIN 100,000 U/GM PWD 15 GM BTL TOPICAL SCH ×3 (05:59→22:41)
[2017-04-06] MEDS: NYSTATIN 100,000 U/GM OINT 15 GM TUBE TOPICAL SCH ×3 (06:00→22:41)
[2017-04-06] MEDS: MIDODRINE 5 MG TAB PEG SCH ×3 (06:00→17:02)
[2017-04-06 08:00] VITALS: BP 111/64; PULSE 67; RESP 15; TEMP 98.3; O2SAT 97
[2017-04-06] MEDS: FREE WATER G-TUBE SCH (08:54)
[2017-04-06] MEDS: LANSOPRAZOLE SOLUTAB 30 MG TAB PEG SCH (08:54)
[2017-04-06] MEDS: ALLOPURINOL 100 MG TAB PEG SCH (08:54)
[2017-04-06] MEDS: ACETAMINOPHEN 325 MG TAB PEG PRN (09:13)
--- NOTE | 2017-04-06 11:00 | HHI.PR ---
Subjective Remarks Follow up weakness and dementia. Patient seen and examined, lying in bed sleeping, awakens to voice. Smiling. Denies any complaints or pain. No new reports of any changes overnight. VSS. Afebrile. Objective Vitals Vital Signs Date Time Temp Pulse Resp B/P (MAP) Pulse Ox O2 Delivery O2 Flow Rate FiO2 04/06/17 08:00 98.3 67 15 111/64 (80) 97 04/05/17 20:00 97.8 72 16 104/67 (79) 95 I/O 04/05/17 04/05/17 04/05/17 04/06/17 04/06/17 04/06/17 07:00 15:00 23:00 07:00 15:00 23:00 Intake Total 660 ml 2420 ml 0 ml Output Total 350 ml 450 ml 600 ml Balance 310 ml -450 ml 2420 ml -600 ml Intake Oral 0 ml 0 ml Tube Feeding 240 ml 1320 ml Tube Irrigant 1100 ml Other 420 ml Output Urine Total 350 ml 450 ml 600 ml # Bowel Movements 2 2 Imaging Last Impressions Gastrostomy Tube Placement 11/20/16 0000 Signed Impressions: Service Date/Time: Sunday, November 20, 2016 14:06 - CONCLUSION: Uncomplicated gastrostomy tube placement as above. Cholelithiasis. Nitish Felton Jr., MD Abdomen/Pelvis CT 03/06/16 0000 Signed Impressions: Service Date/Time: Sunday, March 06, 2016 22:27 - CONCLUSION: 1. Resolution of right sided hydronephrosis. 2. Renal cysts. 3. Bladder is decompressed and there is circumferential bladder wall thickening and intraluminal air identified. A cystitis is not excluded. 4. A large stool ball is noted within the rectum. 5. Cholelithiasis. 6. Nonobstructing left renal calculus. Speedy Noriega MD Abdomen X-Ray 01/30/16 0000 Signed Impressions: Service Date/Time: Saturday, January 30, 2016 14:17 - CONCLUSION: Satisfactory PEG tube positioning Mikael Valladares MD Objective Remarks GENERAL: Well-developed, frail male patient lying in bed in [facility]. SKIN: Warm and dry. No rash. Dry skin. Bilateral upper extremities with multiple abrasions from self inflicting scratching. HEENT: Normocephalic. Atraumatic. Pupils equal and round. No scleral icterus. No injection or drainage. No nasal bleeding or discharge. Mucous membranes pink and moist. EOMs intact. NECK: Supple. Trachea midline. CARDIOVASCULAR: Regular rate and rhythm. S1, S2 noted. No murmur appreciated. RESPIRATORY: No accessory muscle use. Clear to auscultation. Breath sounds equal bilaterally. GASTROINTESTINAL: Abdomen soft, non-tender, nondistended. Normoactive bowel sounds x4. No guarding noted. PEG tube in place, no drainage noted, no erythema , c/d/i. MUSCULOSKELETAL: No obvious deformities. Extremities without clubbing, cyanosis , or edema. NEUROLOGICAL: Awake and alert. No obvious cranial nerve deficits. Moving all extremities. PSYCHIATRIC: Appropriate mood and affect. Procedures None Urinary Catheter: Yes Assessment to: Continue Date of Insertion: Mar 08, 2017 A/P Problem List: (1) Decreased urine output ICD Code: R34 - Anuria and oliguria Status: Acute (2) Prerenal azotemia ICD Code: R79.89 - Other specified abnormal findings of blood chemistry Status: Acute (3) Hematuria ICD Code: R31.9 - Hematuria, unspecified Status: Acute Assessment and Plan Weakness Continue physical therapy, however patient refuses get out of bed majority of the time Nursing staff to get patient up out of bed at least 3 times daily Palliative care requested consult with psychiatry to see if patient has capacity to make decisions. Psychiatry evaluated patient states that he does not have capacity make his own decisions Palliative care discussed with family who is declining transition to comfort care, hospice. Dementia with inappropriate behavior, mood disorder improved Consulted psychiatry for further evaluation, who indicated that this is a frontal lobe dementia Discontinued Remeron Family states that he does not want his father receiving any antidepressants , antianxiety, antipsychotic medications Parkinson's disease: Patient has dementia and resting tremor. Chronic, stable. GI bleed with presenting of Upper GI bleed, patient with intermittent rectal bleeding. Stable. Traffic Sergeant consulted and Presumed hemorrhoids, continue Anusol HC as needed Presumed hemorrhoids Follow-up hemoglobin has remained stable Continue PPI. Protein calorie malnutrition: Improving. PEG tube replaced 11/20/16 Consulted dietitian who indicated that patient may be converted to bolus feeding Jevity 1.5, 1.5, 360ml(1.5 cans)@ 0800, 1100, 1400 and 240ml(1-can)@ 1700 and 2000 Ensure Enlive 3 times a day since pudding 3 times a day Prealbumin level 29 Hypotension with episodes of hypertension: Stable Continue monitor blood pressure Continue Midodrine. obstructive uropathy: Resolved. With recurrent urinary tract infections. Treat only if symptomatic Suprapubic catheter in place, changed monthly, last changed 03/08/17. Plan to change tomorrow 04/07/17. Seborrhea dermatitis, recurrent Counseled nursing staff on proper hygiene to avoid recurrence Responds well to Hydrocortisone cream. Continue to use when active Pruritus, resolved. Will dc Atarax 10 mg every 6 hours May use mittens to protect patient from scratching. Continue to monitor. DVT prophylaxis Sequential compression devices Avoid chemical prophylaxis secondary to intermittent rectal bleeding Records were reviewed. No change in current treatment plan. Awaiting case management for discharge planning. Discharge Planning Discharge planning per case management. Marium Abdi Apr 06, 2017 11:00
[2017-04-06 20:00] VITALS: BP 108/69; PULSE 73; RESP 20; TEMP 96.7; O2SAT 95
[2017-04-07] MEDS: NYSTATIN 100,000 U/GM PWD 15 GM BTL TOPICAL SCH ×3 (05:07→20:21)
[2017-04-07] MEDS: MIDODRINE 5 MG TAB PEG SCH ×3 (05:07→17:00)
[2017-04-07] MEDS: NYSTATIN 100,000 U/GM OINT 15 GM TUBE TOPICAL SCH ×3 (05:07→20:21)
[2017-04-07 08:00] VITALS: BP 104/62; PULSE 67; RESP 18; TEMP 97.3; O2SAT 96
[2017-04-07] MEDS: LANSOPRAZOLE SOLUTAB 30 MG TAB PEG SCH (08:45)
[2017-04-07] MEDS: ALLOPURINOL 100 MG TAB PEG SCH (08:45)
[2017-04-07] MEDS: FREE WATER G-TUBE SCH (09:00)
--- NOTE | 2017-04-07 15:07 | HHI.PR ---
Subjective Remarks Follow up weakness and dementia. Patient seen and examined, awake and alert. Denies any pain or discomfort. Tolerating TF. Afebrile. No new change in clinical condition. Objective Vitals Vital Signs Date Time Temp Pulse Resp B/P (MAP) Pulse Ox O2 Delivery O2 Flow Rate FiO2 04/07/17 08:00 97.3 67 18 104/62 (76) 96 04/06/17 20:00 96.7 73 20 108/69 (82) 95 I/O 04/06/17 04/06/17 04/06/17 04/07/17 04/07/17 04/07/17 07:00 15:00 23:00 07:00 15:00 23:00 Intake Total 0 ml 2420 ml 0 ml Output Total 600 ml 1200 ml Balance -600 ml 2420 ml -1200 ml Intake Oral 0 ml 0 ml Tube Feeding 1320 ml Tube Irrigant 1100 ml Output Urine Total 600 ml 1200 ml # Bowel Movements 2 5 4 1 Imaging Last Impressions Gastrostomy Tube Placement 11/20/16 0000 Signed Impressions: Service Date/Time: Sunday, November 20, 2016 14:06 - CONCLUSION: Uncomplicated gastrostomy tube placement as above. Cholelithiasis. Nitish Felton Jr., MD Abdomen/Pelvis CT 03/06/16 0000 Signed Impressions: Service Date/Time: Sunday, March 06, 2016 22:27 - CONCLUSION: 1. Resolution of right sided hydronephrosis. 2. Renal cysts. 3. Bladder is decompressed and there is circumferential bladder wall thickening and intraluminal air identified. A cystitis is not excluded. 4. A large stool ball is noted within the rectum. 5. Cholelithiasis. 6. Nonobstructing left renal calculus. Speedy Noriega MD Abdomen X-Ray 01/30/16 0000 Signed Impressions: Service Date/Time: Saturday, January 30, 2016 14:17 - CONCLUSION: Satisfactory PEG tube positioning Mikael Valladares MD Objective Remarks GENERAL: Well-developed, frail male patient lying in bed in [facility]. SKIN: Warm and dry. No rash. Dry skin. Bilateral upper extremities with multiple abrasions from self inflicting scratching. HEENT: Normocephalic. Atraumatic. Pupils equal and round. No scleral icterus. No injection or drainage. No nasal bleeding or discharge. Mucous membranes pink and moist. EOMs intact. NECK: Supple. Trachea midline. CARDIOVASCULAR: Regular rate and rhythm. S1, S2 noted. No murmur appreciated. RESPIRATORY: No accessory muscle use. Clear to auscultation. Breath sounds equal bilaterally. GASTROINTESTINAL: Abdomen soft, non-tender, nondistended. Normoactive bowel sounds x4. No guarding noted. PEG tube in place, no drainage noted, no erythema , c/d/i. MUSCULOSKELETAL: No obvious deformities. Extremities without clubbing, cyanosis , or edema. NEUROLOGICAL: Awake and alert. No obvious cranial nerve deficits. Moving all extremities. PSYCHIATRIC: Appropriate mood and affect. Procedures None Assessment to: Continue Date of Insertion: Apr 07, 2017 A/P Problem List: (1) Decreased urine output ICD Code: R34 - Anuria and oliguria Status: Acute (2) Prerenal azotemia ICD Code: R79.89 - Other specified abnormal findings of blood chemistry Status: Acute (3) Hematuria ICD Code: R31.9 - Hematuria, unspecified Status: Acute Assessment and Plan Weakness Continue physical therapy, however patient refuses get out of bed majority of the time Nursing staff to get patient up out of bed at least 3 times daily Palliative care requested consult with psychiatry to see if patient has capacity to make decisions. Psychiatry evaluated patient states that he does not have capacity make his own decisions Palliative care discussed with family who is declining transition to comfort care, hospice. Dementia with inappropriate behavior, mood disorder improved Consulted psychiatry for further evaluation, who indicated that this is a frontal lobe dementia Discontinued Remeron Family states that he does not want his father receiving any antidepressants , antianxiety, antipsychotic medications Parkinson's disease: Patient has dementia and resting tremor. Chronic, stable. GI bleed with presenting of Upper GI bleed, patient with intermittent rectal bleeding. Stable. Print Controller consulted and Presumed hemorrhoids, continue Anusol HC as needed Presumed hemorrhoids Follow-up hemoglobin has remained stable Continue PPI. Protein calorie malnutrition: Improving. PEG tube replaced 11/20/16 Consulted dietitian who indicated that patient may be converted to bolus feeding Jevity 1.5, 1.5, 360ml(1.5 cans)@ 0800, 1100, 1400 and 240ml(1-can)@ 1700 and 2000 Ensure Enlive 3 times a day since pudding 3 times a day Prealbumin level 29 Hypotension with episodes of hypertension: Stable Continue monitor blood pressure Continue Midodrine. obstructive uropathy: Resolved. With recurrent urinary tract infections. Treat only if symptomatic Suprapubic catheter in place, changed monthly, last changed 03/08/17. Will change today 04/07/17. Seborrhea dermatitis, recurrent Counseled nursing staff on proper hygiene to avoid recurrence Responds well to Hydrocortisone cream. Continue to use when active Pruritus, resolved. Will dc Atarax 10 mg every 6 hours May use mittens to protect patient from scratching. Continue to monitor. DVT prophylaxis Sequential compression devices Avoid chemical prophylaxis secondary to intermittent rectal bleeding Records were reviewed. No change in current treatment plan. Awaiting case management for discharge planning. Discharge Planning Discharge planning per case management. Marium Abdi Apr 07, 2017 15:07
[2017-04-07 20:00] VITALS: BP 111/63; PULSE 85; RESP 16; TEMP 97.2; O2SAT 95
[2017-04-08] MEDS: NYSTATIN 100,000 U/GM PWD 15 GM BTL TOPICAL SCH ×3 (05:56→22:51)
[2017-04-08] MEDS: NYSTATIN 100,000 U/GM OINT 15 GM TUBE TOPICAL SCH ×3 (05:56→22:52)
[2017-04-08] MEDS: MIDODRINE 5 MG TAB PEG SCH ×3 (05:57→16:48)
[2017-04-08 08:00] VITALS: BP 135/64; PULSE 75; RESP 16; TEMP 97.7; O2SAT 97
[2017-04-08] MEDS: LANSOPRAZOLE SOLUTAB 30 MG TAB PEG SCH (09:00)
[2017-04-08] MEDS: ALLOPURINOL 100 MG TAB PEG SCH (09:00)
[2017-04-08] MEDS: FREE WATER G-TUBE SCH (09:00)
--- NOTE | 2017-04-08 11:16 | HHI.PR ---
Subjective Remarks Patient seen and examined today for follow-up on found weakness, dementia. Patient has a new complaints. No change in clinical status. Awaiting keycase assembler discharge planning. Vital signs are stable. Afebrile Objective Vitals Vital Signs Date Time Temp Pulse Resp B/P (MAP) Pulse Ox O2 Delivery O2 Flow Rate FiO2 04/08/17 08:00 97.7 75 16 135/64 (87) 97 04/07/17 20:00 97.2 85 16 111/63 (79) 95 I/O 04/07/17 04/07/17 04/07/17 04/08/17 04/08/17 04/08/17 07:00 15:00 23:00 07:00 15:00 23:00 Intake Total 0 ml 0 ml 500 ml Output Total 1200 ml 900 ml Balance -1200 ml -900 ml 500 ml Intake Oral 0 ml 0 ml Tube Feeding 240 ml Tube Irrigant 260 ml Output Urine Total 1200 ml 900 ml # Bowel Movements 4 1 1 Objective Remarks GENERAL: Well-developed, well-nourished, in no acute distress. HEENT: Head is normocephalic without any lesions or masses noted. Facial features are symmetric. Eyes: Extraocular muscles are intact. Conjunctivae were clear. NECK: Trachea midline no deviation. CARDIAC: Regular rhythm, regular rate. S1/S2 are heard. No murmurs gallops or rubs. LUNGS: Clear to auscultation bilaterally. No wheeze, rhonchi or rales. No use of accessory muscles on inspiration or expiration. ABDOMEN: Soft, nontender. Nondistended. Bowel sounds heard in all 4 quadrants. No organomegaly or masses. Negative rebound, negative guarding, suprapubic catheter in place, PEG tube in place with no signs of infection, EXTREMITIES: No edema, pulses are equal bilaterally. No cyanosis or clubbing NEUROLOGY: Mood and affect appear appropriate. Cranial nerves II through XII grossly intact. Moving all extremities Procedures None Urinary Catheter: Yes (suprapubic catheter) Assessment to: Continue Date of Insertion: Apr 07, 2017 Vascular Central Line Catheter: No A/P Assessment and Plan Weakness: Continue physical therapy, however patient refuses get out of bed majority of the time Nursing staff to get patient up out of bed at least 3 times daily Palliative care requested consult with psychiatry to see if patient has capacity to make decisions. Psychiatry evaluated patient states that he does not have capacity make his own decisions Palliative care discussed with family who is declining transition to comfort care, hospice. Dementia with inappropriate behavior, mood disorder improved Consulted psychiatry for further evaluation, who indicated that this is a frontal lobe dementia Discontinued Remeron Family states that he does not want his father receiving any antidepressants , antianxiety, antipsychotic medications Parkinson's disease: Patient has dementia and resting tremor. Chronic, stable. GI bleed with presenting of Upper GI bleed, patient with intermittent rectal bleeding: Endless Track Vehicle Supervisor consulted and Presumed hemorrhoids, continue Anusol HC as needed Presumed hemorrhoids Follow-up hemoglobin has remained stable Continue PPI. Protein calorie malnutrition: Improving PEG tube replaced 11/20/16 Consulted dietitian who indicated that patient may be converted to bolus feeding Jevity 1.5, 1.5, 360ml(1.5 cans)@ 0800, 1100, 1400 and 240ml(1-can)@ 1700 and 2000 Ensure Enlive 3 times a day since pudding 3 times a day Prealbumin level 25 Hypotension with episodes of hypertension: Stable Continue monitor blood pressure Continue Midodrine. obstructive uropathy: Resolved. With recurrent urinary tract infections. Treat only if symptomatic Suprapubic catheter in place, changed monthly, last changed 04/07/17 Seborrhea dermatitis, recurrent Counseled nursing staff on proper hygiene to avoid recurrence Responds well to Hydrocortisone cream. Continue to use when active Pruritus, resolved Status post Atarax 10 mg every 6 hours May use mittens to protect patient from scratching DVT prophylaxis: Sequential compression devices Avoid chemical prophylaxis secondary to intermittent rectal bleeding Records were reviewed. Awaiting case management for discharge planning. No change in current treatment plan. Discharge Planning Discharge planning per case management. Jaguar Walker Apr 08, 2017 11:16
[2017-04-08 20:00] VITALS: BP 107/69; PULSE 78; RESP 20; TEMP 98; O2SAT 94
[2017-04-09] MEDS: NYSTATIN 100,000 U/GM PWD 15 GM BTL TOPICAL SCH ×2 (06:02→13:58)
[2017-04-09] MEDS: MIDODRINE 5 MG TAB PEG SCH ×3 (06:02→16:26)
[2017-04-09] MEDS: NYSTATIN 100,000 U/GM OINT 15 GM TUBE TOPICAL SCH ×2 (06:02→13:58)
[2017-04-09 08:00] VITALS: BP 94/57; PULSE 61; RESP 16; TEMP 98.6; O2SAT 93
[2017-04-09] MEDS: ALLOPURINOL 100 MG TAB PEG SCH (08:33)
[2017-04-09] MEDS: LANSOPRAZOLE SOLUTAB 30 MG TAB PEG SCH (08:33)
[2017-04-09] MEDS: FREE WATER G-TUBE SCH (08:33)
--- NOTE | 2017-04-09 08:49 | HHI.PR ---
Subjective Remarks Patient seen and examined today for follow-up on found weakness, dementia. Patient has a new complaints. No change in clinical status. Awaiting director case discharge planning. Vital signs are stable. Afebrile Objective Vitals Vital Signs Date Time Temp Pulse Resp B/P (MAP) Pulse Ox O2 Delivery O2 Flow Rate FiO2 04/08/17 20:00 98.0 78 20 107/69 (82) 94 I/O 04/08/17 04/08/17 04/08/17 04/09/17 04/09/17 04/09/17 07:00 15:00 23:00 07:00 15:00 23:00 Intake Total 500 ml 2866 ml 100 ml Output Total 600 ml 400 ml Balance 500 ml -600 ml 2466 ml 100 ml Intake Oral 0 ml Tube Feeding 240 ml 1566 ml Tube Irrigant 260 ml 1100 ml Other 200 ml 100 ml Output Urine Total 600 ml 400 ml # Bowel Movements 2 1 Objective Remarks GENERAL: Well-developed, well-nourished, in no acute distress. HEENT: Head is normocephalic without any lesions or masses noted. Facial features are symmetric. Eyes: Extraocular muscles are intact. Conjunctivae were clear. NECK: Trachea midline no deviation. CARDIAC: Regular rhythm, regular rate. S1/S2 are heard. No murmurs gallops or rubs. LUNGS: Clear to auscultation bilaterally. No wheeze, rhonchi or rales. No use of accessory muscles on inspiration or expiration. ABDOMEN: Soft, nontender. Nondistended. Bowel sounds heard in all 4 quadrants. No organomegaly or masses. Negative rebound, negative guarding, suprapubic catheter in place, PEG tube in place with no signs of infection, EXTREMITIES: No edema, pulses are equal bilaterally. No cyanosis or clubbing NEUROLOGY: Mood and affect appear appropriate. Cranial nerves II through XII grossly intact. Moving all extremities Procedures None Urinary Catheter: Yes Assessment to: Continue Soto insert reason: Obstruction/Retention Date of Insertion: Apr 07, 2017 Vascular Central Line Catheter: No A/P Assessment and Plan Weakness: Continue physical therapy, however patient refuses get out of bed majority of the time Nursing staff to get patient up out of bed at least 3 times daily Palliative care requested consult with psychiatry to see if patient has capacity to make decisions. Psychiatry evaluated patient states that he does not have capacity make his own decisions Palliative care discussed with family who is declining transition to comfort care, hospice. Dementia with inappropriate behavior, mood disorder improved Consulted psychiatry for further evaluation, who indicated that this is a frontal lobe dementia Discontinued Cielo Family states that he does not want his father receiving any antidepressants , antianxiety, antipsychotic medications Parkinson's disease: Patient has dementia and resting tremor. Chronic, stable. GI bleed with presenting of Upper GI bleed, patient with intermittent rectal bleeding: Candy Wrapping Machine Operator consulted and Presumed hemorrhoids, continue Anusol HC as needed Presumed hemorrhoids Follow-up hemoglobin has remained stable Continue PPI. Protein calorie malnutrition: Improving PEG tube replaced 11/20/16 Consulted dietitian who indicated that patient may be converted to bolus feeding Jevity 1.5, 1.5, 360ml(1.5 cans)@ 0800, 1100, 1400 and 240ml(1-can)@ 1700 and 2000 Ensure Enlive 3 times a day since pudding 3 times a day Prealbumin level 25 Hypotension with episodes of hypertension: Stable Continue monitor blood pressure Continue Midodrine. obstructive uropathy: Resolved. With recurrent urinary tract infections. Treat only if symptomatic Suprapubic catheter in place, changed monthly, last changed 04/07/17 Seborrhea dermatitis, recurrent Counseled nursing staff on proper hygiene to avoid recurrence Responds well to Hydrocortisone cream. Continue to use when active Pruritus, resolved Status post Atarax 10 mg every 6 hours May use mittens to protect patient from scratching DVT prophylaxis: Sequential compression devices Avoid chemical prophylaxis secondary to intermittent rectal bleeding Records were reviewed. No change in current treatment plan. Awaiting case management for discharge planning. Discharge Planning Discharge planning per case management. Jaguar Walker Apr 09, 2017 08:49
[2017-04-09 20:00] VITALS: BP 129/76; PULSE 69; RESP 17; TEMP 98; O2SAT 95
[2017-04-10] MEDS: NYSTATIN 100,000 U/GM OINT 15 GM TUBE TOPICAL SCH ×4 (00:43→23:04)
[2017-04-10] MEDS: NYSTATIN 100,000 U/GM PWD 15 GM BTL TOPICAL SCH ×4 (00:43→23:04)
[2017-04-10] MEDS: MIDODRINE 5 MG TAB PEG SCH ×3 (06:44→17:28)
[2017-04-10 08:43] VITALS: BP 121/51; PULSE 74; RESP 15; TEMP 98; O2SAT 95
[2017-04-10] MEDS: FREE WATER G-TUBE SCH (08:50)
[2017-04-10] MEDS: ALLOPURINOL 100 MG TAB PEG SCH (08:50)
[2017-04-10] MEDS: LANSOPRAZOLE SOLUTAB 30 MG TAB PEG SCH (08:50)
--- NOTE | 2017-04-10 11:01 | HHI.PR ---
Subjective Remarks Patient seen and examined today for follow-up on profound weakness and dementia. Patient denies any new complaints. No change in clinical status. Vital signs are stable, afebrile. Objective Vitals Vital Signs Date Time Temp Pulse Resp B/P (MAP) Pulse Ox O2 Delivery O2 Flow Rate FiO2 04/10/17 08:43 98.0 74 15 121/51 (74) 95 04/09/17 20:00 98.0 69 17 129/76 (93) 95 I/O 04/09/17 04/09/17 04/09/17 04/10/17 04/10/17 04/10/17 07:00 15:00 23:00 07:00 15:00 23:00 Intake Total 100 ml 740 ml Output Total 600 ml 250 ml 750 ml Balance 100 ml -600 ml -250 ml -10 ml Tube Feeding 240 ml Other 100 ml 500 ml Output Urine Total 600 ml 250 ml 750 ml # Bowel Movements 1 1 Objective Remarks GENERAL: Well-developed, well-nourished, in no acute distress. HEENT: Head is normocephalic without any lesions or masses noted. Facial features are symmetric. Eyes: Extraocular muscles are intact. Conjunctivae were clear. NECK: Trachea midline no deviation. CARDIAC: Regular rhythm, regular rate. S1/S2 are heard. No murmurs gallops or rubs. LUNGS: Clear to auscultation bilaterally. No wheeze, rhonchi or rales. No use of accessory muscles on inspiration or expiration. ABDOMEN: Soft, nontender. Nondistended. Bowel sounds heard in all 4 quadrants. No organomegaly or masses. Negative rebound, negative guarding, suprapubic catheter in place, PEG tube in place with no signs of infection, EXTREMITIES: No edema, pulses are equal bilaterally. No cyanosis or clubbing NEUROLOGY: Mood and affect appear appropriate. Cranial nerves II through XII grossly intact. Moving all extremities Procedures None Urinary Catheter: Yes (suprapubic catheter) Assessment to: Continue Soto insert reason: Obstruction/Retention Date of Insertion: Apr 07, 2017 Vascular Central Line Catheter: No A/P Assessment and Plan Weakness: Continue physical therapy, however patient refuses get out of bed majority of the time Nursing staff to get patient up out of bed at least 3 times daily Palliative care requested consult with psychiatry to see if patient has capacity to make decisions. Psychiatry evaluated patient states that he does not have capacity make his own decisions Palliative care discussed with family who is declining transition to comfort care, hospice. Dementia with inappropriate behavior, mood disorder improved Consulted psychiatry for further evaluation, who indicated that this is a frontal lobe dementia Discontinued Remeron Family states that he does not want his father receiving any antidepressants , antianxiety, antipsychotic medications Parkinson's disease: Patient has dementia and resting tremor. Chronic, stable. GI bleed with presenting of Upper GI bleed, patient with intermittent rectal bleeding: Bilingual Patient Support Caseworker consulted and Presumed hemorrhoids, continue Anusol HC as needed Presumed hemorrhoids Follow-up hemoglobin has remained stable Continue PPI. Protein calorie malnutrition: Improving PEG tube replaced 11/20/16 Consulted dietitian who indicated that patient may be converted to bolus feeding Jevity 1.5, 1.5, 360ml(1.5 cans)@ 0800, 1100, 1400 and 240ml(1-can)@ 1700 and 2000 Ensure Enlive 3 times a day since pudding 3 times a day Prealbumin level 25 Hypotension with episodes of hypertension: Stable Continue monitor blood pressure Continue Midodrine. obstructive uropathy: Resolved. With recurrent urinary tract infections. Treat only if symptomatic Suprapubic catheter in place, changed monthly, last changed 04/07/17 Seborrhea dermatitis, recurrent Counseled nursing staff on proper hygiene to avoid recurrence Responds well to Hydrocortisone cream. Continue to use when active Pruritus, resolved Status post Atarax 10 mg every 6 hours May use mittens to protect patient from scratching DVT prophylaxis: Sequential compression devices Avoid chemical prophylaxis secondary to intermittent rectal bleeding Records were reviewed. Awaiting case management for discharge planning. No change in current treatment plan. Discharge Planning Discharge planning per case management. Jaguar Walker Apr 10, 2017 11:01
[2017-04-10 20:00] VITALS: BP 117/59; PULSE 69; RESP 18; TEMP 96.4; O2SAT 96
[2017-04-11] MEDS: NYSTATIN 100,000 U/GM PWD 15 GM BTL TOPICAL SCH ×3 (05:35→21:13)
[2017-04-11] MEDS: MIDODRINE 5 MG TAB PEG SCH ×3 (05:35→17:00)
[2017-04-11] MEDS: NYSTATIN 100,000 U/GM OINT 15 GM TUBE TOPICAL SCH ×3 (05:36→21:13)
[2017-04-11 08:00] VITALS: BP 115/71; PULSE 99; RESP 14; TEMP 98.5; O2SAT 95
[2017-04-11] MEDS: FREE WATER G-TUBE SCH (08:19)
--- NOTE | 2017-04-11 08:36 | HHI.PR ---
Subjective Remarks Patient seen and examined today for follow-up on profound weakness, dementia. Patient denies any new complaints. No acute events overnight. Vital signs are stable. Afebrile. No change in clinical status Objective Vitals Vital Signs Date Time Temp Pulse Resp B/P (MAP) Pulse Ox O2 Delivery O2 Flow Rate FiO2 04/10/17 20:00 96.4 69 18 117/59 (78) 96 04/10/17 08:43 98.0 74 15 121/51 (74) 95 I/O 04/10/17 04/10/17 04/10/17 04/11/17 04/11/17 04/11/17 07:00 15:00 23:00 07:00 15:00 23:00 Intake Total 740 ml 560 ml Output Total 750 ml 700 ml 650 ml Balance -10 ml -700 ml -90 ml Tube Feeding 240 ml 240 ml Tube Irrigant 120 ml Other 500 ml 200 ml Output Urine Total 750 ml 700 ml 650 ml Gastric Drainage Total 0 ml # Bowel Movements 1 0 Objective Remarks GENERAL: Well-developed, well-nourished, in no acute distress. HEENT: Head is normocephalic without any lesions or masses noted. Facial features are symmetric. Eyes: Extraocular muscles are intact. Conjunctivae were clear. NECK: Trachea midline no deviation. CARDIAC: Regular rhythm, regular rate. S1/S2 are heard. No murmurs gallops or rubs. LUNGS: Clear to auscultation bilaterally. No wheeze, rhonchi or rales. No use of accessory muscles on inspiration or expiration. ABDOMEN: Soft, nontender. Nondistended. Bowel sounds heard in all 4 quadrants. No organomegaly or masses. Negative rebound, negative guarding, suprapubic catheter in place, PEG tube in place with no signs of infection, EXTREMITIES: No edema, pulses are equal bilaterally. No cyanosis or clubbing NEUROLOGY: Mood and affect appear appropriate. Cranial nerves II through XII grossly intact. Moving all extremities Procedures None Urinary Catheter: Yes (suprapubic catheter) Assessment to: Continue Soto insert reason: Obstruction/Retention Date of Insertion: Apr 07, 2017 Vascular Central Line Catheter: No A/P Assessment and Plan Weakness: Continue physical therapy, however patient refuses get out of bed majority of the time Nursing staff to get patient up out of bed at least 3 times daily Palliative care requested consult with psychiatry to see if patient has capacity to make decisions. Psychiatry evaluated patient states that he does not have capacity make his own decisions Palliative care discussed with family who is declining transition to comfort care, hospice. Dementia with inappropriate behavior, mood disorder stable Consulted psychiatry for further evaluation, who indicated that this is a frontal lobe dementia Discontinued Remeron Family states that he does not want his father receiving any antidepressants , antianxiety, antipsychotic medications Parkinson's disease: Patient has dementia and resting tremor. Chronic, stable. GI bleed with presenting of Upper GI bleed, patient with intermittent rectal bleeding: Banking Manager consulted and Presumed hemorrhoids, continue Anusol HC as needed Presumed hemorrhoids Follow-up hemoglobin has remained stable Continue PPI. Protein calorie malnutrition: Stable PEG tube replaced 11/20/16 Consulted dietitian who indicated that patient may be converted to bolus feeding Jevity 1.5, 1.5, 360ml(1.5 cans)@ 0800, 1100, 1400 and 240ml(1-can)@ 1700 and 2000 Ensure Enlive 3 times a day since pudding 3 times a day Prealbumin level 29 Hypotension with episodes of hypertension: Stable Continue monitor blood pressure Continue Midodrine. obstructive uropathy: Resolved. With recurrent urinary tract infections. Treat only if symptomatic Suprapubic catheter in place, changed monthly, last changed 04/07/17 Seborrhea dermatitis, stable Counseled nursing staff on proper hygiene to avoid recurrence Responds well to Hydrocortisone cream. Continue to use when active Pruritus, resolved Status post Atarax 10 mg every 6 hours May use mittens to protect patient from scratching DVT prophylaxis: Sequential compression devices Avoid chemical prophylaxis secondary to intermittent rectal bleeding Records were reviewed. No change in current treatment plan. Awaiting case management for discharge planning. Discharge Planning Discharge planning per case management. Jaguar Wakler Apr 11, 2017 08:36
[2017-04-11] MEDS: ALLOPURINOL 100 MG TAB PEG SCH (09:15)
[2017-04-11] MEDS: LANSOPRAZOLE SOLUTAB 30 MG TAB PEG SCH (09:15)
[2017-04-11 20:00] VITALS: BP 133/84; PULSE 65; RESP 16; TEMP 97; O2SAT 95
[2017-04-12] MEDS: NYSTATIN 100,000 U/GM OINT 15 GM TUBE TOPICAL SCH ×3 (05:52→21:05)
[2017-04-12] MEDS: NYSTATIN 100,000 U/GM PWD 15 GM BTL TOPICAL SCH ×3 (05:52→21:05)
[2017-04-12] MEDS: MIDODRINE 5 MG TAB PEG SCH ×3 (05:53→16:14)
[2017-04-12 08:00] VITALS: BP 126/64; PULSE 70; RESP 18; TEMP 96.7; O2SAT 96
[2017-04-12] MEDS: LANSOPRAZOLE SOLUTAB 30 MG TAB PEG SCH (09:51)
[2017-04-12] MEDS: ALLOPURINOL 100 MG TAB PEG SCH (09:52)
[2017-04-12] MEDS: FREE WATER G-TUBE SCH (09:54)
--- NOTE | 2017-04-12 11:03 | HHI.PR ---
Subjective Remarks Patient seen and examined today for follow-up on profound weakness, dementia. Patient denies any new complaints. No change in clinical status. Awaiting case management for discharge planning. Objective Vitals Vital Signs Date Time Temp Pulse Resp B/P (MAP) Pulse Ox O2 Delivery O2 Flow Rate FiO2 04/12/17 08:00 96.7 70 18 126/64 (84) 96 04/11/17 20:00 97.0 65 16 133/84 (100) 95 I/O 04/11/17 04/11/17 04/11/17 04/12/17 04/12/17 04/12/17 07:00 15:00 23:00 07:00 15:00 23:00 Intake Total 560 ml Output Total 650 ml 700 ml 550 ml 400 ml Balance -90 ml -700 ml -550 ml -400 ml Tube Feeding 240 ml Tube Irrigant 120 ml Other 200 ml Output Urine Total 650 ml 700 ml 550 ml 400 ml Gastric Drainage Total 0 ml # Bowel Movements 0 1 1 Objective Remarks GENERAL: Well-developed, well-nourished, in no acute distress. HEENT: Head is normocephalic without any lesions or masses noted. Facial features are symmetric. Eyes: Extraocular muscles are intact. Conjunctivae were clear. NECK: Trachea midline no deviation. CARDIAC: Regular rhythm, regular rate. S1/S2 are heard. No murmurs gallops or rubs. LUNGS: Clear to auscultation bilaterally. No wheeze, rhonchi or rales. No use of accessory muscles on inspiration or expiration. ABDOMEN: Soft, nontender. Nondistended. Bowel sounds heard in all 4 quadrants. No organomegaly or masses. Negative rebound, negative guarding, suprapubic catheter in place, PEG tube in place with no signs of infection, EXTREMITIES: No edema, pulses are equal bilaterally. No cyanosis or clubbing NEUROLOGY: Mood and affect appear appropriate. Cranial nerves II through XII grossly intact. Moving all extremities Procedures None Urinary Catheter: Yes (suprapubic catheter) Assessment to: Continue Soto insert reason: Obstruction/Retention Date of Insertion: Apr 07, 2017 Vascular Central Line Catheter: No A/P Assessment and Plan Weakness: Continue physical therapy, however patient refuses get out of bed majority of the time Nursing staff to get patient up out of bed at least 3 times daily Palliative care requested consult with psychiatry to see if patient has capacity to make decisions. Psychiatry evaluated patient states that he does not have capacity make his own decisions Palliative care discussed with family who is declining transition to comfort care, hospice. Dementia with inappropriate behavior, mood disorder stable Consulted psychiatry for further evaluation, who indicated that this is a frontal lobe dementia Discontinued Remeron Family states that he does not want his father receiving any antidepressants , antianxiety, antipsychotic medications Parkinson's disease: Patient has dementia and resting tremor. Chronic, stable. GI bleed with presenting of Upper GI bleed, patient with intermittent rectal bleeding: Skin Pass Operator consulted and Presumed hemorrhoids, continue Anusol HC as needed Presumed hemorrhoids Follow-up hemoglobin has remained stable Continue PPI. Protein calorie malnutrition: Stable PEG tube replaced 11/20/16 Consulted dietitian who indicated that patient may be converted to bolus feeding Jevity 1.5, 1.5, 360ml(1.5 cans)@ 0800, 1100, 1400 and 240ml(1-can)@ 1700 and 2000 Ensure Enlive 3 times a day since pudding 3 times a day Prealbumin level 29 Hypotension with episodes of hypertension: Stable Continue monitor blood pressure Continue Midodrine. obstructive uropathy: Resolved. With recurrent urinary tract infections. Treat only if symptomatic Suprapubic catheter in place, changed monthly, last changed 04/07/17 Seborrhea dermatitis, stable Counseled nursing staff on proper hygiene to avoid recurrence Responds well to Hydrocortisone cream. Continue to use when active Pruritus, resolved Status post Atarax 10 mg every 6 hours May use mittens to protect patient from scratching DVT prophylaxis: Sequential compression devices Avoid chemical prophylaxis secondary to intermittent rectal bleeding Records were reviewed. Awaiting case management for discharge planning. No change in current treatment plan. Discharge Planning Discharge planning per case management. Jaguar Walker Apr 12, 2017 11:03
[2017-04-12 20:00] VITALS: BP 121/64; PULSE 64; RESP 16; TEMP 98; O2SAT 95
[2017-04-13] MEDS: NYSTATIN 100,000 U/GM PWD 15 GM BTL TOPICAL SCH ×3 (05:58→21:10)
[2017-04-13] MEDS: NYSTATIN 100,000 U/GM OINT 15 GM TUBE TOPICAL SCH ×3 (05:58→21:10)
[2017-04-13] MEDS: MIDODRINE 5 MG TAB PEG SCH ×3 (06:09→16:52)
[2017-04-13 08:00] VITALS: BP 100/51; PULSE 82; RESP 18; TEMP 98; O2SAT 99
[2017-04-13] MEDS: FREE WATER G-TUBE SCH (08:35)
[2017-04-13] MEDS: ALLOPURINOL 100 MG TAB PEG SCH (08:35)
[2017-04-13] MEDS: LANSOPRAZOLE SOLUTAB 30 MG TAB PEG SCH (08:35)
--- NOTE | 2017-04-13 08:49 | HHI.PR ---
Subjective Remarks Patient seen and examined today for follow-up on profound weakness, dementia. Patient denies any new complaints. No change in clinical status. Patient afebrile, vital signs are stable Objective Vitals Vital Signs Date Time Temp Pulse Resp B/P (MAP) Pulse Ox O2 Delivery O2 Flow Rate FiO2 04/12/17 20:00 98.0 64 16 121/64 (83) 95 I/O 04/12/17 04/12/17 04/12/17 04/13/17 04/13/17 04/13/17 07:00 15:00 23:00 07:00 15:00 23:00 Intake Total 1080 ml 740 ml 560 ml Output Total 550 ml 400 ml 475 ml Balance -550 ml 680 ml 265 ml 560 ml Tube Feeding 1080 ml 240 ml 240 ml Other 500 ml 320 ml Output Urine Total 550 ml 400 ml 475 ml # Bowel Movements 1 1 Objective Remarks GENERAL: Well-developed, well-nourished, in no acute distress. HEENT: Head is normocephalic without any lesions or masses noted. Facial features are symmetric. Eyes: Extraocular muscles are intact. Conjunctivae were clear. NECK: Trachea midline no deviation. CARDIAC: Regular rhythm, regular rate. S1/S2 are heard. No murmurs gallops or rubs. LUNGS: Clear to auscultation bilaterally. No wheeze, rhonchi or rales. No use of accessory muscles on inspiration or expiration. ABDOMEN: Soft, nontender. Nondistended. Bowel sounds heard in all 4 quadrants. No organomegaly or masses. Negative rebound, negative guarding, suprapubic catheter in place, PEG tube in place with no signs of infection, EXTREMITIES: No edema, pulses are equal bilaterally. No cyanosis or clubbing NEUROLOGY: Mood and affect appear appropriate. Cranial nerves II through XII grossly intact. Moving all extremities Procedures None Urinary Catheter: Yes (suprapubic catheter) Assessment to: Continue Soto insert reason: Obstruction/Retention Date of Insertion: Apr 07, 2017 A/P Assessment and Plan Weakness: Continue physical therapy, however patient refuses get out of bed majority of the time Nursing staff to get patient up out of bed at least 3 times daily Palliative care requested consult with psychiatry to see if patient has capacity to make decisions. Psychiatry evaluated patient states that he does not have capacity make his own decisions Palliative care discussed with family who is declining transition to comfort care, hospice. Dementia with inappropriate behavior, mood disorder stable Consulted psychiatry for further evaluation, who indicated that this is a frontal lobe dementia Discontinued Remeron Family states that he does not want his father receiving any antidepressants , antianxiety, antipsychotic medications Parkinson's disease: Patient has dementia and resting tremor. Chronic, stable. GI bleed with presenting of Upper GI bleed, patient with intermittent rectal bleeding: Cleaning Associate consulted and Presumed hemorrhoids, continue Anusol HC as needed Presumed hemorrhoids Follow-up hemoglobin has remained stable Continue PPI. Protein calorie malnutrition: Stable PEG tube replaced 11/20/16 Consulted dietitian who indicated that patient may be converted to bolus feeding Jevity 1.5, 1.5, 360ml(1.5 cans)@ 0800, 1100, 1400 and 240ml(1-can)@ 1700 and 2000 Ensure Enlive 3 times a day since pudding 3 times a day Prealbumin level 29 Hypotension with episodes of hypertension: Stable Continue monitor blood pressure Continue Midodrine. obstructive uropathy: Resolved. With recurrent urinary tract infections. Treat only if symptomatic Suprapubic catheter in place, changed monthly, last changed 04/07/17 Seborrhea dermatitis, stable Counseled nursing staff on proper hygiene to avoid recurrence Responds well to Hydrocortisone cream. Continue to use when active Pruritus, resolved Status post Atarax 10 mg every 6 hours May use mittens to protect patient from scratching Benadryl as needed DVT prophylaxis: Sequential compression devices Avoid chemical prophylaxis secondary to intermittent rectal bleeding Records were reviewed. No change in current treatment plan. Awaiting case management for discharge planning. Discharge Planning Discharge planning per case management. Jaguar Walker Apr 13, 2017 08:49
[2017-04-13 20:00] VITALS: BP 98/58; PULSE 73; RESP 18; TEMP 98.6; O2SAT 94
[2017-04-14] MEDS: NYSTATIN 100,000 U/GM PWD 15 GM BTL TOPICAL SCH ×3 (06:37→21:53)
[2017-04-14] MEDS: NYSTATIN 100,000 U/GM OINT 15 GM TUBE TOPICAL SCH ×3 (06:37→21:54)
[2017-04-14] MEDS: MIDODRINE 5 MG TAB PEG SCH ×3 (06:37→17:00)
[2017-04-14 08:00] VITALS: BP 102/69; PULSE 69; RESP 18; TEMP 97.7; O2SAT 96
--- NOTE | 2017-04-14 08:00 | HHI.PR ---
Subjective Remarks Patient seen and examined today for follow-up on profile weakness, dementia. Patient denies any new complaints. No change in clinical status. Patient appears be mildly depressed after his family visited yesterday. Objective Vitals Vital Signs Date Time Temp Pulse Resp B/P (MAP) Pulse Ox O2 Delivery O2 Flow Rate FiO2 04/13/17 20:00 98.6 73 18 98/58 (71) 94 04/13/17 08:00 98.0 82 18 100/51 (67) 99 I/O 04/13/17 04/13/17 04/13/17 04/14/17 04/14/17 04/14/17 07:00 15:00 23:00 07:00 15:00 23:00 Intake Total 560 ml 2775 ml 180 ml Output Total 750 ml 1000 ml Balance 560 ml -750 ml 2775 ml -820 ml Tube Feeding 240 ml 1560 ml Tube Irrigant 240 ml 180 ml Other 320 ml 975 ml Output Urine Total 750 ml 1000 ml # Bowel Movements 0 Objective Remarks GENERAL: Well-developed, well-nourished, in no acute distress. HEENT: Head is normocephalic without any lesions or masses noted. Facial features are symmetric. Eyes: Extraocular muscles are intact. Conjunctivae were clear. NECK: Trachea midline no deviation. CARDIAC: Regular rhythm, regular rate. S1/S2 are heard. No murmurs gallops or rubs. LUNGS: Clear to auscultation bilaterally. No wheeze, rhonchi or rales. No use of accessory muscles on inspiration or expiration. ABDOMEN: Soft, nontender. Nondistended. Bowel sounds heard in all 4 quadrants. No organomegaly or masses. Negative rebound, negative guarding, suprapubic catheter in place, PEG tube in place with no signs of infection, EXTREMITIES: No edema, pulses are equal bilaterally. No cyanosis or clubbing NEUROLOGY: Mood and affect appear appropriate. Cranial nerves II through XII grossly intact. Moving all extremities Procedures None Urinary Catheter: Yes (suprapubic catheter) Assessment to: Continue Soto insert reason: Obstruction/Retention Date of Insertion: Apr 07, 2017 Vascular Central Line Catheter: No A/P Assessment and Plan Weakness: Continue physical therapy, however patient refuses get out of bed majority of the time Nursing staff to get patient up out of bed at least 3 times daily Palliative care requested consult with psychiatry to see if patient has capacity to make decisions. Psychiatry evaluated patient states that he does not have capacity make his own decisions Palliative care discussed with family who is declining transition to comfort care, hospice. Dementia with inappropriate behavior, mood disorder stable Consulted psychiatry for further evaluation, who indicated that this is a frontal lobe dementia Discontinued Remeron Family states that he does not want his father receiving any antidepressants , antianxiety, antipsychotic medications Parkinson's disease: Patient has dementia and resting tremor. Chronic, stable. GI bleed with presenting of Upper GI bleed, patient with intermittent rectal bleeding: Harp Maker consulted and Presumed hemorrhoids, continue Anusol HC as needed Presumed hemorrhoids Follow-up hemoglobin has remained stable Continue PPI. Protein calorie malnutrition: Stable PEG tube replaced 11/20/16 Consulted dietitian who indicated that patient may be converted to bolus feeding Jevity 1.5, 1.5, 360ml(1.5 cans)@ 0800, 1100, 1400 and 240ml(1-can)@ 1700 and 2000 Ensure Enlive 3 times a day since pudding 3 times a day Prealbumin level 29 Hypotension with episodes of hypertension: Stable Continue monitor blood pressure Continue Midodrine. obstructive uropathy: Resolved. With recurrent urinary tract infections. Treat only if symptomatic Suprapubic catheter in place, changed monthly, last changed 04/07/17 Seborrhea dermatitis, stable Counseled nursing staff on proper hygiene to avoid recurrence Responds well to Hydrocortisone cream. Continue to use when active Pruritus, resolved Status post Atarax 10 mg every 6 hours May use mittens to protect patient from scratching Benadryl as needed DVT prophylaxis: Sequential compression devices Avoid chemical prophylaxis secondary to intermittent rectal bleeding Records were reviewed. Awaiting case management for discharge planning. No change in current treatment plan. Discharge Planning Discharge planning per case management. Jaguar Walker Apr 14, 2017 08:00
[2017-04-14] MEDS: diphenhydrAMINE HCL 25 MG CAP PO PRN (08:11)
[2017-04-14] MEDS: LANSOPRAZOLE SOLUTAB 30 MG TAB PEG SCH (08:12)
[2017-04-14] MEDS: ALLOPURINOL 100 MG TAB PEG SCH (08:12)
[2017-04-14] MEDS: FREE WATER G-TUBE SCH (08:12)
[2017-04-14 20:00] VITALS: BP 111/59; PULSE 63; RESP 18; TEMP 98.6; O2SAT 90
[2017-04-15] MEDS: NYSTATIN 100,000 U/GM OINT 15 GM TUBE TOPICAL SCH (06:27)
[2017-04-15] MEDS: NYSTATIN 100,000 U/GM PWD 15 GM BTL TOPICAL SCH (06:27)
[2017-04-15] MEDS: MIDODRINE 5 MG TAB PEG SCH ×3 (06:30→16:44)
[2017-04-15] MEDS: FREE WATER G-TUBE SCH (07:58)
[2017-04-15] MEDS: ALLOPURINOL 100 MG TAB PEG SCH (07:58)
[2017-04-15] MEDS: LANSOPRAZOLE SOLUTAB 30 MG TAB PEG SCH (07:58)
[2017-04-15 08:00] VITALS: BP 131/74; PULSE 70; RESP 20; TEMP 96.8; O2SAT 96
--- NOTE | 2017-04-15 08:41 | HHI.PR ---
Subjective Remarks Follow up profound weakness and dementia. Patient seen and examined. Lying in bed comfortably. Denies any pain. Awake and alert. RN at bedside with no reports of acute events overnight. Afebrile. VSS. Objective Vitals Vital Signs Date Time Temp Pulse Resp B/P (MAP) Pulse Ox O2 Delivery O2 Flow Rate FiO2 04/15/17 08:00 96.8 70 20 131/74 (93) 96 04/14/17 20:00 98.6 63 18 111/59 (76) 90 I/O 04/14/17 04/14/17 04/14/17 04/15/17 04/15/17 04/15/17 07:00 15:00 23:00 07:00 15:00 23:00 Intake Total 180 ml 440 ml Output Total 1000 ml 450 ml Balance -820 ml -10 ml Intake Oral 0 ml Tube Feeding 240 ml Tube Irrigant 180 ml 200 ml Output Urine Total 1000 ml 450 ml # Bowel Movements 0 Imaging Last Impressions Gastrostomy Tube Placement 11/20/16 0000 Signed Impressions: Service Date/Time: Sunday, November 20, 2016 14:06 - CONCLUSION: Uncomplicated gastrostomy tube placement as above. Cholelithiasis. Nitish Felton Jr., MD Abdomen/Pelvis CT 03/06/16 0000 Signed Impressions: Service Date/Time: Sunday, March 06, 2016 22:27 - CONCLUSION: 1. Resolution of right sided hydronephrosis. 2. Renal cysts. 3. Bladder is decompressed and there is circumferential bladder wall thickening and intraluminal air identified. A cystitis is not excluded. 4. A large stool ball is noted within the rectum. 5. Cholelithiasis. 6. Nonobstructing left renal calculus. Speedy Noriega MD Abdomen X-Ray 01/30/16 0000 Signed Impressions: Service Date/Time: Saturday, January 30, 2016 14:17 - CONCLUSION: Satisfactory PEG tube positioning Mikael Valladares MD Objective Remarks GENERAL: Well-developed, frail male patient lying in bed in NAD. SKIN: Warm and dry. No rash. Dry skin. Bilateral upper extremities with multiple abrasions from self inflicting scratching. HEENT: Normocephalic. Atraumatic. Pupils equal and round. No scleral icterus. No injection or drainage. No nasal bleeding or discharge. Mucous membranes pink and moist. EOMs intact. NECK: Supple. Trachea midline. CARDIOVASCULAR: Regular rate and rhythm. S1, S2 noted. No murmur appreciated. RESPIRATORY: No accessory muscle use. Clear to auscultation. Breath sounds equal bilaterally. GASTROINTESTINAL: Abdomen soft, non-tender, nondistended. Normoactive bowel sounds x4. No guarding noted. PEG tube in place, no drainage noted, no erythema , c/d/i. MUSCULOSKELETAL: No obvious deformities. Extremities without clubbing, cyanosis , or edema. NEUROLOGICAL: Awake and alert. No obvious cranial nerve deficits. Moving all extremities. PSYCHIATRIC: Appropriate mood and affect. Procedures None Date of Insertion: Apr 07, 2017 A/P Problem List: (1) Decreased urine output ICD Code: R34 - Anuria and oliguria Status: Acute (2) Prerenal azotemia ICD Code: R79.89 - Other specified abnormal findings of blood chemistry Status: Acute (3) Hematuria ICD Code: R31.9 - Hematuria, unspecified Status: Acute Assessment and Plan Weakness Continue physical therapy, however patient refuses get out of bed majority of the time Nursing staff to get patient up out of bed at least 3 times daily Palliative care requested consult with psychiatry to see if patient has capacity to make decisions. Psychiatry evaluated patient states that he does not have capacity make his own decisions Palliative care discussed with family who is declining transition to comfort care, hospice. Dementia with inappropriate behavior, mood disorder improved Consulted psychiatry for further evaluation, who indicated that this is a frontal lobe dementia Discontinued Remeron Family states that he does not want his father receiving any antidepressants , antianxiety, antipsychotic medications Parkinson's disease: Patient has dementia and resting tremor. Chronic, stable. GI bleed with presenting of Upper GI bleed, patient with intermittent rectal bleeding. Stable. Pot Annealer consulted and Presumed hemorrhoids, continue Anusol HC as needed Presumed hemorrhoids Follow-up hemoglobin has remained stable Continue PPI. Protein calorie malnutrition: Improving. PEG tube replaced 11/20/16 Consulted dietitian who indicated that patient may be converted to bolus feeding Jevity 1.5, 1.5, 360ml(1.5 cans)@ 0800, 1100, 1400 and 240ml(1-can)@ 1700 and 2000 Ensure Enlive 3 times a day since pudding 3 times a day Prealbumin level 29 Hypotension with episodes of hypertension: Stable Continue monitor blood pressure Continue Midodrine. obstructive uropathy: Resolved. With recurrent urinary tract infections. Treat only if symptomatic Suprapubic catheter in place, changed monthly, last changed 04/07/17. Seborrhea dermatitis, recurrent Counseled nursing staff on proper hygiene to avoid recurrence Responds well to Hydrocortisone cream. Continue to use when active Pruritus, resolved. Will dc Atarax 10 mg every 6 hours May use mittens to protect patient from scratching. Continue to monitor. DVT prophylaxis Sequential compression devices Avoid chemical prophylaxis secondary to intermittent rectal bleeding Records were reviewed. No change in current treatment plan. Awaiting case management for discharge planning. Discharge Planning Discharge planning per case management. Marium Abdi Apr 15, 2017 08:41
[2017-04-15 20:00] VITALS: BP 93/56; PULSE 76; RESP 18; TEMP 98.2; O2SAT 96
[2017-04-16] MEDS: MIDODRINE 5 MG TAB PEG SCH ×3 (06:46→16:51)
--- NOTE | 2017-04-16 07:38 | HHI.PR ---
Subjective Remarks Follow up profound weakness and dementia. Patient seen and examined. Lying in bed awake and alert, pleasant. Following commands. No pain. No reports of any acute events overnight. Afebrile. Objective Vitals Vital Signs Date Time Temp Pulse Resp B/P (MAP) Pulse Ox O2 Delivery O2 Flow Rate FiO2 04/15/17 20:00 98.2 76 18 93/56 (68) 96 04/15/17 08:00 96.8 70 20 131/74 (93) 96 I/O 04/15/17 04/15/17 04/15/17 04/16/17 04/16/17 04/16/17 07:00 15:00 23:00 07:00 15:00 23:00 Intake Total 440 ml 2319 ml 440 ml Output Total 450 ml 450 ml 450 ml Balance -10 ml -450 ml 2319 ml -10 ml Intake Oral 0 ml Tube Feeding 240 ml 1320 ml 240 ml Tube Irrigant 200 ml Other 999 ml 200 ml Output Urine Total 450 ml 450 ml 450 ml # Bowel Movements 0 1 Imaging Last Impressions Gastrostomy Tube Placement 11/20/16 0000 Signed Impressions: Service Date/Time: Sunday, November 20, 2016 14:06 - CONCLUSION: Uncomplicated gastrostomy tube placement as above. Cholelithiasis. Nitish Felton Jr., MD Abdomen/Pelvis CT 03/06/16 0000 Signed Impressions: Service Date/Time: Sunday, March 06, 2016 22:27 - CONCLUSION: 1. Resolution of right sided hydronephrosis. 2. Renal cysts. 3. Bladder is decompressed and there is circumferential bladder wall thickening and intraluminal air identified. A cystitis is not excluded. 4. A large stool ball is noted within the rectum. 5. Cholelithiasis. 6. Nonobstructing left renal calculus. Speedy Noriega MD Abdomen X-Ray 01/30/16 0000 Signed Impressions: Service Date/Time: Saturday, January 30, 2016 14:17 - CONCLUSION: Satisfactory PEG tube positioning Mikael Valladares MD Objective Remarks GENERAL: Well-developed, frail male patient lying in bed in NAD. SKIN: Warm and dry. No rash. Dry skin. Bilateral upper extremities with multiple abrasions from self inflicting scratching. HEENT: Normocephalic. Atraumatic. Pupils equal and round. No scleral icterus. No injection or drainage. No nasal bleeding or discharge. Mucous membranes pink and moist. EOMs intact. NECK: Supple. Trachea midline. CARDIOVASCULAR: Regular rate and rhythm. S1, S2 noted. No murmur appreciated. RESPIRATORY: No accessory muscle use. Clear to auscultation. Breath sounds equal bilaterally. GASTROINTESTINAL: Abdomen soft, non-tender, nondistended. Normoactive bowel sounds x4. No guarding noted. PEG tube in place, no drainage noted, no erythema , c/d/i. MUSCULOSKELETAL: No obvious deformities. Extremities without clubbing, cyanosis , or edema. NEUROLOGICAL: Awake and alert. No obvious cranial nerve deficits. Moving all extremities. PSYCHIATRIC: Appropriate mood and affect. Procedures None Date of Insertion: Apr 07, 2017 A/P Problem List: (1) Decreased urine output ICD Code: R34 - Anuria and oliguria Status: Acute (2) Prerenal azotemia ICD Code: R79.89 - Other specified abnormal findings of blood chemistry Status: Acute (3) Hematuria ICD Code: R31.9 - Hematuria, unspecified Status: Acute Assessment and Plan Weakness Continue physical therapy, however patient refuses get out of bed majority of the time Nursing staff to get patient up out of bed at least 3 times daily Palliative care requested consult with psychiatry to see if patient has capacity to make decisions. Psychiatry evaluated patient states that he does not have capacity make his own decisions Palliative care discussed with family who is declining transition to comfort care, hospice. Dementia with inappropriate behavior, mood disorder improved Consulted psychiatry for further evaluation, who indicated that this is a frontal lobe dementia Discontinued Remeron Family states that he does not want his father receiving any antidepressants , antianxiety, antipsychotic medications Parkinson's disease: Patient has dementia and resting tremor. Chronic, stable. GI bleed with presenting of Upper GI bleed, patient with intermittent rectal bleeding. Stable. Pbx Wire Chief consulted and Presumed hemorrhoids, continue Anusol HC as needed Presumed hemorrhoids Follow-up hemoglobin has remained stable Continue PPI. Protein calorie malnutrition: Improving. PEG tube replaced 11/20/16 Consulted dietitian who indicated that patient may be converted to bolus feeding Jevity 1.5, 1.5, 360ml(1.5 cans)@ 0800, 1100, 1400 and 240ml(1-can)@ 1700 and 2000 Ensure Enlive 3 times a day since pudding 3 times a day Prealbumin level 29 Hypotension with episodes of hypertension: Stable Continue monitor blood pressure Continue Midodrine. obstructive uropathy: Resolved. With recurrent urinary tract infections. Treat only if symptomatic Suprapubic catheter in place, changed monthly, last changed 04/07/17. Seborrhea dermatitis, recurrent Counseled nursing staff on proper hygiene to avoid recurrence Responds well to Hydrocortisone cream. Continue to use when active Pruritus, resolved. Will dc Atarax 10 mg every 6 hours May use mittens to protect patient from scratching. Continue to monitor. DVT prophylaxis Sequential compression devices Avoid chemical prophylaxis secondary to intermittent rectal bleeding Records were reviewed. No change in current treatment plan. Awaiting case management for discharge planning. Discharge Planning Discharge planning per case management. Marium Abdi Apr 16, 2017 07:38
[2017-04-16] MEDS: ALLOPURINOL 100 MG TAB PEG SCH (08:51)
[2017-04-16] MEDS: LANSOPRAZOLE SOLUTAB 30 MG TAB PEG SCH (08:52)
[2017-04-16] MEDS: FREE WATER G-TUBE SCH (08:52)
[2017-04-16 09:21] VITALS: BP 122/66; PULSE 67; RESP 16; TEMP 96.9; O2SAT 97
[2017-04-16 20:00] VITALS: BP 115/77; PULSE 83; RESP 20; TEMP 97.9; O2SAT 96
[2017-04-17] MEDS: MIDODRINE 5 MG TAB PEG SCH ×3 (06:18→17:00)
--- NOTE | 2017-04-17 08:50 | HHI.PR ---
Subjective Remarks Follow up profound weakness and dementia. Patient seen and examined. Patient awake and smiling. He is vocalizing and conversing in conversation today. Denies any new complaints. Denies any pain. Follows commands. Tolerating TF well. Afebrile. VSS. Objective Vitals Vital Signs Date Time Temp Pulse Resp B/P (MAP) Pulse Ox O2 Delivery O2 Flow Rate FiO2 04/16/17 20:00 97.9 83 20 115/77 (90) 96 04/16/17 09:21 96.9 67 16 122/66 (84) 97 I/O 04/16/17 04/16/17 04/16/17 04/17/17 04/17/17 04/17/17 06:59 14:59 22:59 06:59 14:59 22:59 Intake Total 440 ml 2810 ml 180 ml Output Total 450 ml 1000 ml 650 ml Balance -10 ml 1810 ml -470 ml Tube Feeding 240 ml 1560 ml Tube Irrigant 1250 ml 180 ml Other 200 ml Output Urine Total 450 ml 1000 ml 650 ml # Bowel Movements 1 1 Imaging Last Impressions Gastrostomy Tube Placement 11/20/16 0000 Signed Impressions: Service Date/Time: Sunday, November 20, 2016 14:06 - CONCLUSION: Uncomplicated gastrostomy tube placement as above. Cholelithiasis. Nitish Felton Jr., MD Abdomen/Pelvis CT 03/06/16 0000 Signed Impressions: Service Date/Time: Sunday, March 06, 2016 22:27 - CONCLUSION: 1. Resolution of right sided hydronephrosis. 2. Renal cysts. 3. Bladder is decompressed and there is circumferential bladder wall thickening and intraluminal air identified. A cystitis is not excluded. 4. A large stool ball is noted within the rectum. 5. Cholelithiasis. 6. Nonobstructing left renal calculus. Speedy Noriega MD Abdomen X-Ray 01/30/16 0000 Signed Impressions: Service Date/Time: Saturday, January 30, 2016 14:17 - CONCLUSION: Satisfactory PEG tube positioning Mikael Valladares MD Objective Remarks GENERAL: Well-developed, frail male patient lying in bed in [facility]. SKIN: Warm and dry. No rash. Dry skin. Bilateral upper extremities with multiple abrasions from self inflicting scratching. HEENT: Normocephalic. Atraumatic. Pupils equal and round. No scleral icterus. No injection or drainage. No nasal bleeding or discharge. Mucous membranes pink and moist. EOMs intact. NECK: Supple. Trachea midline. CARDIOVASCULAR: Regular rate and rhythm. S1, S2 noted. No murmur appreciated. RESPIRATORY: No accessory muscle use. Clear to auscultation. Breath sounds equal bilaterally. GASTROINTESTINAL: Abdomen soft, non-tender, nondistended. Normoactive bowel sounds x4. No guarding noted. PEG tube in place, no drainage noted, no erythema , c/d/i. MUSCULOSKELETAL: No obvious deformities. Extremities without clubbing, cyanosis , or edema. NEUROLOGICAL: Awake and alert. No obvious cranial nerve deficits. Moving all extremities. PSYCHIATRIC: Appropriate mood and affect. Procedures None Date of Insertion: Apr 07, 2017 A/P Problem List: (1) Decreased urine output ICD Code: R34 - Anuria and oliguria Status: Acute (2) Prerenal azotemia ICD Code: R79.89 - Other specified abnormal findings of blood chemistry Status: Acute (3) Hematuria ICD Code: R31.9 - Hematuria, unspecified Status: Acute Assessment and Plan Weakness Continue physical therapy, however patient refuses get out of bed majority of the time Nursing staff to get patient up out of bed at least 3 times daily Palliative care requested consult with psychiatry to see if patient has capacity to make decisions. Psychiatry evaluated patient states that he does not have capacity make his own decisions Palliative care discussed with family who is declining transition to comfort care, hospice. Dementia with inappropriate behavior, mood disorder improved Consulted psychiatry for further evaluation, who indicated that this is a frontal lobe dementia Discontinued Remeron Family states that he does not want his father receiving any antidepressants , antianxiety, antipsychotic medications Parkinson's disease: Patient has dementia and resting tremor. Chronic, stable. GI bleed with presenting of Upper GI bleed, patient with intermittent rectal bleeding. Stable. Medical Language Specialist consulted and Presumed hemorrhoids, continue Anusol HC as needed Presumed hemorrhoids Follow-up hemoglobin has remained stable Continue PPI. Protein calorie malnutrition: Improving. PEG tube replaced 11/20/16 Consulted dietitian who indicated that patient may be converted to bolus feeding Jevity 1.5, 1.5, 360ml(1.5 cans)@ 0800, 1100, 1400 and 240ml(1-can)@ 1700 and 2000 Ensure Enlive 3 times a day since pudding 3 times a day Prealbumin level 29 Hypotension with episodes of hypertension: Stable Continue monitor blood pressure Continue Midodrine. obstructive uropathy: Resolved. With recurrent urinary tract infections. Treat only if symptomatic Suprapubic catheter in place, changed monthly, last changed 04/07/17. Seborrhea dermatitis, recurrent Counseled nursing staff on proper hygiene to avoid recurrence Responds well to Hydrocortisone cream. Continue to use when active Pruritus, resolved. Will dc Atarax 10 mg every 6 hours May use mittens to protect patient from scratching. Continue to monitor. DVT prophylaxis Sequential compression devices Avoid chemical prophylaxis secondary to intermittent rectal bleeding Records were reviewed. No change in current treatment plan. Awaiting case management for discharge planning. Discharge Planning Discharge planning per case management. Marium Abdi Apr 17, 2017 08:50
[2017-04-17] MEDS: FREE WATER G-TUBE SCH (09:00)
[2017-04-17 09:18] VITALS: BP 155/75; PULSE 77; RESP 16; TEMP 97.5; O2SAT 96
[2017-04-17] MEDS: ALLOPURINOL 100 MG TAB PEG SCH (09:21)
[2017-04-17] MEDS: LANSOPRAZOLE SOLUTAB 30 MG TAB PEG SCH (09:21)
--- NOTE | 2017-04-17 16:30 | HHI.HCPN ---
Reason for visit a. To assist with evaluation and management of symptoms including:pain and debility b. To assist medical decision maker(s) with: better understanding of current medical conditions; weighing benefits/burdens of medical treatment options; making medical treatment decisions. . Subjective/Interval History Patient seen and examined today, EMR reviewed. Patient is awake and alert, appears comfortable. No family is present. Patient is non-verbal but nods and shakes his head to yes/no questions. He denies pain or shortness of breath; no complaints. Afebrile. Hemodynamically stable. Tolerating artificial nutrition. Patient/family express ongoing aggressive goals. Case management continues to work toward discharge, detention placement. . Family/friend interactions Advance Directives Durable Power of Verifier: Copy in medical record Objective Vital Signs Date Time Temp Pulse Resp B/P (MAP) Pulse Ox O2 Delivery O2 Flow Rate FiO2 04/17/17 09:18 97.5 77 16 155/75 (101) 96 04/16/17 20:00 97.9 83 20 115/77 (90) 96 Intake & Output 04/17/17 04/17/17 06:59 18:59 Intake Total 720 ml Output Total 650 ml Balance 70 ml Tube Feeding 240 ml Tube Irrigant 480 ml Output Urine Total 650 ml # Bowel Movements 1 . Physical Exam CONSTITUTIONAL/GENERAL: This is a a frail thin gentleman in no apparent distress TUBES/LINES/DRAINS: PEG tube, Suprapubic catheter. SKIN: Seborrheic dermatitis on face. No wounds seen anteriorly. Skin temperature appropriate. Not diaphoretic. . ENT: Hearing grossly normal. Nose without bleeding or purulent drainage. CARDIOVASCULAR: Regular rate and rhythm. No murmur appreciated. No JVD. Peripheral pulses symmetric. RESPIRATORY/CHEST: Symmetric, unlabored respirations. Breath sounds equal bilaterally. No wheezes, rales, or rhonchi. No accessory muscle use. GASTROINTESTINAL: Abdomen soft, non-tender, nondistended. No guarding. Normoactive bowels sound x 4 quadrants PEG tube in place GENITOURINARY: Without palpable bladder distension. Suprapubic catheter. MUSCULOSKELETAL: Extremities without clubbing, cyanosis, or edema. No mottling or clubbing. NEUROLOGICAL: Awake and alert. Nods/shakes head to yes/no questions. Follow some simple commands one step commands PSYCHIATRIC: Unable to assess secondary to patient's nonverbal status. Assessment and Plan Disease Oriented Problem List: (1) Frontotemporal dementia with behavioral disturbance (2) Dementia with behavioral disturbance (3) Protein-calorie malnutrition, mild (4) Essential tremor Symptom Scale: (1) Anxiety 0-10 Scale: Unable to quantify Comment: from dementia Pertinent Non-Medical Issues Psychosocial: Originally from [facility]. Moved to [place] and bought property. 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 Spiritual: Unknown. Legal: None known. Ethical issues impacting care: None known. Important Contacts POA. Orlando Edmond Prognosis 76 year old functionally declined rapidly 1 year ago, with hallucinations, agitations, diagnosed with frontal temporal dementia, on feeding tube and supra pubic catheter. Patient is at an ongoing risk for complications/setbacks secondary to multiple comorbidities and debilitated status. Patient would be Hospice appropriate if family was amenable and goals of care were comfort oriented. . Code Status: Full Code Plan * CODE STATUS: FULL CODE. * Legal decision maker: Patient is currently lacks the insight and judgment to make his own medical decisions. Patient's son Orlando Edmond is his designated POA. * GOALS: Unable to reach patient's son/POA, verbalized goals in the past have been aggressive. Voicemail left for patient's son Orlando Edmond to provide an update on patient clinical condition and review current medical treatment goals. Awaiting return phone call. * Discussed patient's case with Marium GRIDER * SYMPTOM MANAGEMENT: * ==pain: Per nursing documentation utilizing a nonverbal pain scale patient has been free of pain. PRN acetaminophen is available but has not been required recently. * ==debility: Secondary to clinical condition, refusal to participate, necessity for full assistance for transfers. PT working with patient and following. No recommendations at this time. * Palliative care will continue to follow during hospital course as condition evolves, to assist patient/family/decision-maker with understanding of medical conditions, weighing benefit/burdens of treatment options, for clarification of goals of treatment. Additionally will assist with symptoms of palliative concern. Shayla Burris Apr 17, 2017 16:30
[2017-04-17 20:00] VITALS: BP 138/79; PULSE 77; RESP 16; TEMP 97.9; O2SAT 93
[2017-04-18] MEDS: MIDODRINE 5 MG TAB PEG SCH ×3 (06:21→17:00)
[2017-04-18 08:00] VITALS: BP 102/72; PULSE 68; RESP 18; TEMP 97.7; O2SAT 96
[2017-04-18] MEDS: FREE WATER G-TUBE SCH (08:27)
[2017-04-18] MEDS: LANSOPRAZOLE SOLUTAB 30 MG TAB PEG SCH (08:27)
[2017-04-18] MEDS: ALLOPURINOL 100 MG TAB PEG SCH (08:27)
--- NOTE | 2017-04-18 11:42 | HHI.PR ---
Subjective Remarks Follow up profound weakness and dementia. Patient seen and examined. Lying in bed sleeping, awakens to voice. Follows commands. Alert and awake. Denies any pain. No change in clinical condition. Objective Vitals Vital Signs Date Time Temp Pulse Resp B/P (MAP) Pulse Ox O2 Delivery O2 Flow Rate FiO2 04/18/17 08:00 97.7 68 18 102/72 (82) 96 04/17/17 20:00 97.9 77 16 138/79 (98) 93 I/O 04/17/17 04/17/17 04/17/17 04/18/17 04/18/17 04/18/17 07:00 15:00 23:00 07:00 15:00 23:00 Intake Total 180 ml 2160 ml 120 ml Output Total 650 ml 450 ml Balance -470 ml 2160 ml -330 ml Tube Feeding 1560 ml Tube Irrigant 180 ml 300 ml 120 ml Other 300 ml Output Urine Total 650 ml 450 ml # Bowel Movements 1 Imaging Last Impressions Gastrostomy Tube Placement 11/20/16 0000 Signed Impressions: Service Date/Time: Sunday, November 20, 2016 14:06 - CONCLUSION: Uncomplicated gastrostomy tube placement as above. Cholelithiasis. Nitish Felton Jr., MD Abdomen/Pelvis CT 03/06/16 0000 Signed Impressions: Service Date/Time: Sunday, March 06, 2016 22:27 - CONCLUSION: 1. Resolution of right sided hydronephrosis. 2. Renal cysts. 3. Bladder is decompressed and there is circumferential bladder wall thickening and intraluminal air identified. A cystitis is not excluded. 4. A large stool ball is noted within the rectum. 5. Cholelithiasis. 6. Nonobstructing left renal calculus. Speedy Noriega MD Abdomen X-Ray 01/30/16 0000 Signed Impressions: Service Date/Time: Saturday, January 30, 2016 14:17 - CONCLUSION: Satisfactory PEG tube positioning Mikael Valladares MD Objective Remarks GENERAL: Well-developed, frail male patient lying in bed in NAD. SKIN: Warm and dry. No rash. Dry skin. Bilateral upper extremities with multiple abrasions from self inflicting scratching. HEENT: Normocephalic. Atraumatic. Pupils equal and round. No scleral icterus. No injection or drainage. No nasal bleeding or discharge. Mucous membranes pink and moist. EOMs intact. NECK: Supple. Trachea midline. CARDIOVASCULAR: Regular rate and rhythm. S1, S2 noted. No murmur appreciated. RESPIRATORY: No accessory muscle use. Clear to auscultation. Breath sounds equal bilaterally. GASTROINTESTINAL: Abdomen soft, non-tender, nondistended. Normoactive bowel sounds x4. No guarding noted. PEG tube in place, no drainage noted, no erythema , c/d/i. MUSCULOSKELETAL: No obvious deformities. Extremities without clubbing, cyanosis , or edema. NEUROLOGICAL: Awake and alert. No obvious cranial nerve deficits. Moving all extremities. PSYCHIATRIC: Appropriate mood and affect. Procedures None Date of Insertion: Apr 07, 2017 A/P Problem List: (1) Decreased urine output ICD Code: R34 - Anuria and oliguria Status: Acute (2) Prerenal azotemia ICD Code: R79.89 - Other specified abnormal findings of blood chemistry Status: Acute (3) Hematuria ICD Code: R31.9 - Hematuria, unspecified Status: Acute Assessment and Plan Weakness Continue physical therapy, however patient refuses get out of bed majority of the time Nursing staff to get patient up out of bed at least 3 times daily Palliative care requested consult with psychiatry to see if patient has capacity to make decisions. Psychiatry evaluated patient states that he does not have capacity make his own decisions Palliative care discussed with family who is declining transition to comfort care, hospice. Dementia with inappropriate behavior, mood disorder improved Consulted psychiatry for further evaluation, who indicated that this is a frontal lobe dementia Discontinued Remeron Family states that he does not want his father receiving any antidepressants , antianxiety, antipsychotic medications Parkinson's disease: Patient has dementia and resting tremor. Chronic, stable. GI bleed with presenting of Upper GI bleed, patient with intermittent rectal bleeding. Stable. Dye Worker consulted and Presumed hemorrhoids, continue Anusol HC as needed Presumed hemorrhoids Follow-up hemoglobin has remained stable Continue PPI. Protein calorie malnutrition: Improving. PEG tube replaced 11/20/16 Consulted dietitian who indicated that patient may be converted to bolus feeding Jevity 1.5, 1.5, 360ml(1.5 cans)@ 0800, 1100, 1400 and 240ml(1-can)@ 1700 and 2000 Ensure Enlive 3 times a day since pudding 3 times a day Prealbumin level 29 Hypotension with episodes of hypertension: Stable Continue monitor blood pressure Continue Midodrine. obstructive uropathy: Resolved. With recurrent urinary tract infections. Treat only if symptomatic Suprapubic catheter in place, changed monthly, last changed 04/07/17. Seborrhea dermatitis, recurrent Counseled nursing staff on proper hygiene to avoid recurrence Responds well to Hydrocortisone cream. Continue to use when active Pruritus, resolved. Will dc Atarax 10 mg every 6 hours May use mittens to protect patient from scratching. Continue to monitor. DVT prophylaxis Sequential compression devices Avoid chemical prophylaxis secondary to intermittent rectal bleeding Records were reviewed. No change in current treatment plan. Awaiting case management for discharge planning. Discharge Planning Discharge planning per case management. Marium Abdi Apr 18, 2017 11:42
[2017-04-18 20:00] VITALS: BP 111/82; PULSE 81; RESP 16; TEMP 97.6; O2SAT 96
[~2017-04-19] VITALS: Ht 175.3 cm; Wt 64.4 kg
[2017-04-19] MEDS: MIDODRINE 5 MG TAB PEG SCH (06:06)
[2017-04-19] MEDS: ALLOPURINOL 100 MG TAB PEG SCH (07:39)
[2017-04-19] MEDS: LANSOPRAZOLE SOLUTAB 30 MG TAB PEG SCH (07:39)
[2017-04-19] MEDS: FREE WATER G-TUBE SCH (07:39)
[2017-04-19 08:00] VITALS: BP 123/64; PULSE 68; RESP 20; TEMP 97; O2SAT 96
--- NOTE | 2017-04-19 09:28 | HHI.DS ---
Discharge Summary Admission Date Jan 20, 2016 at 10:18 Discharge Date: Apr 19, 2017 Admitting Diagnosis upper GI bleed (1) Decreased urine output ICD Code: R34 - Anuria and oliguria Status: Acute (2) Prerenal azotemia ICD Code: R79.89 - Other specified abnormal findings of blood chemistry Status: Acute (3) Hematuria ICD Code: R31.9 - Hematuria, unspecified Status: Acute Procedures PEG placement Brief History - From Admission 76 year-old male with a history of dementia, Parkinson disease was brought to the emergency department for evaluation of GI bleed per EMR record. Patient is unable to communicate my exam and history is obtained from ED report and chart review below: "This is a patient with a history of dementia who is G-tube fed who presents to the emergency department having had 2 episodes at his group home, one last night and one this morning of coffee-ground emesis. Patient is unable to provide any history. Per the chart the patient does have a history of esophagitis. Imaging Last Impressions Gastrostomy Tube Placement 11/20/16 0000 Signed Impressions: Service Date/Time: Sunday, November 20, 2016 14:06 - CONCLUSION: Uncomplicated gastrostomy tube placement as above. Cholelithiasis. Nitish Felton Jr., MD Abdomen/Pelvis CT 03/06/16 0000 Signed Impressions: Service Date/Time: Sunday, March 06, 2016 22:27 - CONCLUSION: 1. Resolution of right sided hydronephrosis. 2. Renal cysts. 3. Bladder is decompressed and there is circumferential bladder wall thickening and intraluminal air identified. A cystitis is not excluded. 4. A large stool ball is noted within the rectum. 5. Cholelithiasis. 6. Nonobstructing left renal calculus. Speedy Noriega MD Abdomen X-Ray 01/30/16 0000 Signed Impressions: Service Date/Time: Saturday, January 30, 2016 14:17 - CONCLUSION: Satisfactory PEG tube positioning Mikael Valladares MD PE at Discharge GENERAL: Well-developed, frail male patient lying in bed in NAD. SKIN: Warm and dry. No rash. Dry skin. HEENT: Normocephalic. Atraumatic. Pupils equal and round. No scleral icterus. No injection or drainage. No nasal bleeding or discharge. Mucous membranes pink and moist. EOMs intact. NECK: Supple. Trachea midline. CARDIOVASCULAR: Regular rate and rhythm. S1, S2 noted. No murmur appreciated. RESPIRATORY: No accessory muscle use. Clear to auscultation. Breath sounds equal bilaterally. GASTROINTESTINAL: Abdomen soft, non-tender, nondistended. Normoactive bowel sounds x4. No guarding noted. PEG tube in place, no drainage noted, no erythema , c/d/i. MUSCULOSKELETAL: No obvious deformities. Extremities without clubbing, cyanosis , or edema. NEUROLOGICAL: Awake and alert. No obvious cranial nerve deficits. Moving all extremities. PSYCHIATRIC: Appropriate mood and affect. Hospital Course Patient presented with Upper GI bleed, patient with intermittent rectal bleeding. Has now resolved. Insurance Claims Adjuster consulted at that time and Presumed hemorrhoids. Follow-up hemoglobin has remained stable. Continued Prevacid. Patient was treated for weakness, PT follow patient. Patient refuses get out of bed majority of the time. Nursing staff to get patient up out of bed at least 3 times daily. Palliative care requested consult with psychiatry to see if patient has capacity to make decisions. Psychiatry evaluated patient states that he does not have capacity make his own decisions. Palliative care discussed with family who is declining transition to comfort care, hospice. He does have dementia with inappropriate behavior, mood disorder. Psychiatry indicated that this is a frontal lobe dementia. Discontinued Remeron. Family states that he does not want his father receiving any antidepressants, antianxiety, antipsychotic medications. Parkinson's disease: Patient has dementia and resting tremor. Protein calorie malnutrition improving. PEG tube replaced 11/20/16 dietitian indicated that patient may be converted to bolus feeding. Jevity 1.5, 1.5, 360ml(1.5 cans)@ 0800, 1100, 1400 and 240ml(1-can)@ 1700 and 2000. Last prealbumin level 29. Obstructive uropathy resolved. With recurrent urinary tract infections. Suprapubic catheter in place, changed monthly, last changed 04/07/17. Recurrent seborrhea dermatitis. Counseled nursing staff on proper hygiene to avoid recurrence. Responds well to Hydrocortisone cream. Continue to use when active. Pruritus has resolved. Pt Condition on Discharge: Stable Discharge Disposition: Discharge to SNF Discharge Time: > 30 minutes Discharge Instructions DIET: Follow Instructions for: On Tube Feeding Activities you can perform: See Additionl Instruction Other Activity Instructions: per PT Follow up Referrals: PCP Follow-up - 1 Week New Medications: Midodrine (Proamatine 5 Mg Tab) 5 Mg Tab 5 MG PO TID@07,12,17 for hpotnsion for 15 Days, TAB Midodrine (Midodrine) 5 Mg Tab 10 MG PEG TID@07,12,17 for orthostatic hypotension for 30 Days, #90 TAB Pantoprazole Sodium (Pantoprazole Sodium) 40 Mg Tab 40 MG PO DAILY for gi for 30 Days, TAB [Water, Free] () 1 ML FLUSH 200 ML G-TUBE DAILY for H2o flush Continued Medications: Acetaminophen (Tylenol 325 Mg Tab) 325 Mg Tab 650 MG PEG Q8HR PRN for PAIN, TAB Allopurinol (Allopurinol) 100 Mg Tab 100 MG PEG DAILY, TAB Calcium Carbonate-Vitamin D (Calcium + D) 600 Mg Tab 1 TAB PEG DAILY Loperamide (Loperamide) 2 Mg Tab 2 MG PEG Q12HR PRN for DIARRHEA, TAB DO NOT EXCEED 8 TABLETS/CAPSULES PER 24 HOURS Ranitidine Hcl (Zantac) 150 Mg Tab 150 MG PEG BID, TAB Discontinued Medications: Cephalexin Monohydrate (Keflex 500 mg Cap) 500 Mg Cap 500 MG PO TID for 7 Days, CAP Colchicine (Colcrys) 0.6 Mg Tab 0.6 MG PEG DAILY PRN for PAIN, TAB Hydrocodone/Acetaminophen 5 mg/325 mg (Hydrocodone/Acetaminophen 5 mg/325 mg) 1 Tab 1 TAB PO Q4H PRN for PAIN, #15 TAB 0 Refills Mirtazapine (Remeron) 7.5 Mg Tab 7.5 MG PEG HS, TAB Nitrofurantoin Monohyd Macro (Macrobid) 100 Mg Cap 100 MG PO BID for 10 Days, CAP Sulfamethoxazole-Trimethoprim DS (Bactrim DS) 1 Tab Tab 1 TAB PO BID for 7 Days, TAB Tramadol Hcl (Tramadol Hcl) 50 Mg Tab 50 MG PEG Q12HR PRN for PAIN, TAB Marium Abdi Apr 19, 2017 09:28
[~2017-04-19 10:59] MED LIST: ACET325T11 PEG; ACETAMINOPHEN 325 MG TAB PO PRN; ALLO100T PEG; BACT800T5 PO; BISACODYL 10 MG SUPP PR PRN; CALC600T10 PEG; CEPH500 PO; COLC1TAB7 PEG; DEXT 5%-NACL 0.9% 1000 ML INJ 1,000 ML IV SCH; DIATRIZOATE MEGLUM/DIATRIZOATE SOD 120 ML BTL (for RAD DIAG) PEG ONE; DIATRIZOATE MEGLUM/DIATRIZOATE SOD 9 ML CUP ONE; ENALAPRILAT 1.25 MG/ML VIAL IV PUSH PRN; FREE WATER G-TUBE SCH; IOHEXOL 300 MG/ML 50 ML BTL (for RAD DIAG) G-TUBE ONE; IOHEXOL 350 MG/ML 10 ML VIAL (for RAD DIAG) IV ONE; KETOCONAZOLE 2% SHAMPOO 120 ML BTL TOPICAL ONE; LOPE2CAP14 PEG; LOPERAMIDE HCL 2 MG CAP PEG PRN; LORTA5 PO; MACR100C PO; METOCLOPRAMIDE HCL 10 MG TAB PO ONE; MIDO5 PO; MIDO5TAB PEG; MIRT7.5T10 PEG; NALOXONE HCL 0.4 MG/ML AMP IV PRN; NYSTATIN 100,000 U/GM OINT 15 GM TUBE TOPICAL PRN; NYSTATIN 100,000 U/GM PWD 15 GM BTL TOPICAL PRN; ONDANSETRON HCL 4 MG/2 ML VIAL IVP ONE; ONDANSETRON HCL 4 MG/2 ML VIAL IVP PRN; ONDANSETRON HCL 4 MG/2 ML VIAL ONE; OXYBUTYNIN CHLORIDE 5 MG TAB PEG PRN; OXYBUTYNIN CHLORIDE 5 MG TAB PO ONE; OXYBUTYNIN CHLORIDE 5 MG TAB PO PRN; PANT40IN3 PO; PANTOPRAZOLE INJ 80 MG in SODIUM CHLORIDE 0.9% INJ 35 ML IV ONE; PANTOPRAZOLE SODIUM 40 MG VIAL IV PUSH SCH; RANI150 PEG; RESP: ALBUTEROL 2.5 MG/IPRATROPIUM 0.5 MG NEB (PRN) NEB; RESP: LIDOCAINE HCL 4% PF 5 ML NEB NEB ONE; SODIUM CHLOR 0.9% 1000 ML INJ 1,000 ML IV ONE; SODIUM CHLOR 0.9% 1000 ML INJ 1,000 ML IV SCH; SODIUM CHLORID 0.9% 500 ML INJ 500 ML IV SCH; SODIUM CHLORIDE 0.9% FLUSH 10 ML FLUSH IV FLUSH PRN; SODIUM CHLORIDE 0.9% FLUSH 5 ML FLUSH FLUSH PRN; SODIUM CHLORIDE 0.9% FLUSH 5 ML FLUSH IVF PRN; TRAM50TA PEG; [UNRECOGNIZED DRUG - OTHER] G-TUBE; cefTRIAXone INJ 1,000 MG in SODIUM CHLORIDE 0.9% INJ 100 ML IV ONE
== END | DRG 378 ==
LOC: NEPE 01-20 05:03 → NEDA 01-20 10:18 → N07A 01-20 13:57 → PH5A 02-26 20:00 → PH3A 01-09 15:18 → PH3B 01-13 10:02 → PH3A 01-13 10:04 → PH5A 01-14 19:00 → PH3A 01-15 17:48 → PH3B 01-27 08:48 → PH3A 01-27 08:50
PROVIDERS: ADMIT Hospitalist; ATTEND Hospitalist
PROC: 0TPBX0Z Removal of Drainage Device from Bladder, External Approach (ICD-10-PCS; principal; 2016-01-21)
PROC: 0T9B30Z Drainage of Bladder with Drainage Device, Percutaneous Approach (ICD-10-PCS; 2016-01-21)
PROC: 0HBRXZZ Excision of Toe Nail, External Approach (ICD-10-PCS; 2016-04-30)
PROC: 0HBRXZZ Excision of Toe Nail, External Approach (ICD-10-PCS; 2016-04-30)
PROC: 0HBRXZZ Excision of Toe Nail, External Approach (ICD-10-PCS; 2016-04-30)
PROC: 0HBRXZZ Excision of Toe Nail, External Approach (ICD-10-PCS; 2016-04-30)
PROC: 0HBRXZZ Excision of Toe Nail, External Approach (ICD-10-PCS; 2016-04-30)
PROC: 0HBRXZZ Excision of Toe Nail, External Approach (ICD-10-PCS; 2016-04-30)
PROC: 0HBRXZZ Excision of Toe Nail, External Approach (ICD-10-PCS; 2016-04-30)
PROC: 0HBRXZZ Excision of Toe Nail, External Approach (ICD-10-PCS; 2016-04-30)
PROC: 0HBRXZZ Excision of Toe Nail, External Approach (ICD-10-PCS; 2016-04-30)
PROC: 0HBRXZZ Excision of Toe Nail, External Approach (ICD-10-PCS; 2016-04-30)
PROC: 0DH63UZ Insertion of Feeding Device into Stomach, Percutaneous Approach (ICD-10-PCS; 2016-11-20)
DX: K92.2 Gastrointestinal hemorrhage, unspecified (principal); N13.30 Unspecified hydronephrosis; L89.151 Pressure ulcer of sacral region, stage 1; I95.89 Other hypotension; R13.10 Dysphagia, unspecified; G20 Parkinson's disease; F02.81 Dementia in other diseases classified elsewhere, unspecified severity, with behavioral disturbance; G31.09 Other frontotemporal neurocognitive disorder; E44.1 Mild protein-calorie malnutrition; K94.23 Gastrostomy malfunction; N39.0 Urinary tract infection, site not specified; Z68.1 Body mass index [BMI] 19.9 or less, adult; G25.0 Essential tremor; B35.1 Tinea unguium; E03.9 Hypothyroidism, unspecified; M10.9 Gout, unspecified; M17.11 Unilateral primary osteoarthritis, right knee; R32 Unspecified urinary incontinence; N40.1 Benign prostatic hyperplasia with lower urinary tract symptoms; R33.8 Other retention of urine; K44.9 Diaphragmatic hernia without obstruction or gangrene; K80.20 Calculus of gallbladder without cholecystitis without obstruction; K21.9 Gastro-esophageal reflux disease without esophagitis; I10 Essential (primary) hypertension; H00.11 Chalazion right upper eyelid; F41.9 Anxiety disorder, unspecified; K56.41 Fecal impaction; L21.9 Seborrheic dermatitis, unspecified; B36.9 Superficial mycosis, unspecified; R31.0 Gross hematuria; Z51.5 Encounter for palliative care; K64.9 Unspecified hemorrhoids; Z91.19 Patient's noncompliance with other medical treatment and regimen; Z87.440 Personal history of urinary (tract) infections; Z87.442 Personal history of urinary calculi; Y83.3 Surgical operation with formation of external stoma as the cause of abnormal reaction of the patient, or of later complication, without mention of misadventure at the time of the procedure
CPT/HCPCS: 49440; 74000; 74177; 80048; 80053; 81001; 82272; 82948; 83690; 83735; 84134; 85014; 85018; 85025; 85027; 85610; 85730; 86403; 86850; 86900; 86901; 87045; 87046; 87077; 87086; 87186; 87328; 87329; 87427; 87493; 87899; 94664; 96361; 96374; C9113; J0690; J0696; J1650; J2405; J7030; J7040; Q9963; Q9967

== ENCOUNTER 2017-09-29 21:13 | Emergency (ER) | payer MEDICARE, OTHER ==
[~2017-09-29] VITALS: Ht 182.9 cm; Wt 90.0 kg
[~2017-09-29 21:13] MED LIST changes: -ACETAMINOPHEN 325 MG TAB PO PRN; -BACT800T5 PO; -BISACODYL 10 MG SUPP PR PRN; -CEPH500 PO; -COLC1TAB7 PEG; -DEXT 5%-NACL 0.9% 1000 ML INJ 1,000 ML IV SCH; -DIATRIZOATE MEGLUM/DIATRIZOATE SOD 120 ML BTL (for RAD DIAG) PEG ONE; -DIATRIZOATE MEGLUM/DIATRIZOATE SOD 9 ML CUP ONE; -ENALAPRILAT 1.25 MG/ML VIAL IV PUSH PRN; -FREE WATER G-TUBE SCH; -IOHEXOL 300 MG/ML 50 ML BTL (for RAD DIAG) G-TUBE ONE; -IOHEXOL 350 MG/ML 10 ML VIAL (for RAD DIAG) IV ONE; -KETOCONAZOLE 2% SHAMPOO 120 ML BTL TOPICAL ONE; -LOPERAMIDE HCL 2 MG CAP PEG PRN; -LORTA5 PO; -MACR100C PO; -METOCLOPRAMIDE HCL 10 MG TAB PO ONE; -MIRT7.5T10 PEG; -NALOXONE HCL 0.4 MG/ML AMP IV PRN; -NYSTATIN 100,000 U/GM OINT 15 GM TUBE TOPICAL PRN; -NYSTATIN 100,000 U/GM PWD 15 GM BTL TOPICAL PRN; -ONDANSETRON HCL 4 MG/2 ML VIAL IVP ONE; -ONDANSETRON HCL 4 MG/2 ML VIAL IVP PRN; -ONDANSETRON HCL 4 MG/2 ML VIAL ONE; -OXYBUTYNIN CHLORIDE 5 MG TAB PEG PRN; -OXYBUTYNIN CHLORIDE 5 MG TAB PO ONE; -OXYBUTYNIN CHLORIDE 5 MG TAB PO PRN; -PANTOPRAZOLE INJ 80 MG in SODIUM CHLORIDE 0.9% INJ 35 ML IV ONE; -PANTOPRAZOLE SODIUM 40 MG VIAL IV PUSH SCH; -RESP: ALBUTEROL 2.5 MG/IPRATROPIUM 0.5 MG NEB (PRN) NEB; -RESP: LIDOCAINE HCL 4% PF 5 ML NEB NEB ONE; -SODIUM CHLOR 0.9% 1000 ML INJ 1,000 ML IV ONE; -SODIUM CHLOR 0.9% 1000 ML INJ 1,000 ML IV SCH; -SODIUM CHLORID 0.9% 500 ML INJ 500 ML IV SCH; -SODIUM CHLORIDE 0.9% FLUSH 10 ML FLUSH IV FLUSH PRN; -SODIUM CHLORIDE 0.9% FLUSH 5 ML FLUSH FLUSH PRN; -SODIUM CHLORIDE 0.9% FLUSH 5 ML FLUSH IVF PRN; -TRAM50TA PEG; -cefTRIAXone INJ 1,000 MG in SODIUM CHLORIDE 0.9% INJ 100 ML IV ONE
--- NOTE | 2017-09-29 21:24 | PD ---
HPI Chief Complaint: PEG tube Time Seen by Provider: 21:22 Travel History International Travel<30 days: No Contact w/Intl Traveler<30days: No Traveled to known affect area: No History of Present Illness HPI 77-year-old male sent in from his custodial for PEG tube replacement. Currently the patient's PEG tube was accidentally pulled out. This was replaced with a Soto catheter at the custodial. Patient has history of dementia and does not provide any history. He is awake and alert and appears comfortable. PFSH Past Medical History Blood Disorders: No Anxiety: No Depression: Yes Cancer: No Cardiovascular Problems: Yes Dementia: Yes Diabetes: No Diminished Hearing: No Endocrine: Yes Gastrointestinal Disorders: Yes (peg tube) GERD: Yes Genitourinary: Yes (incont/kidney stones/hematuria) Hypertension: Yes Immune Disorder: No Kidney Stones: Yes Musculoskeletal: Yes (RIGHT KNEE OSTEOARTHRITIS; TREMORS) Neurologic: Yes Psychiatric: No Reproductive: Yes (enlarged prostate) Respiratory: No Thyroid Disease: Yes (hypo) Past Surgical History Abdominal Surgery: Yes (PEG TUBE ) Genitourinary Surgery: Yes (SUPRAPUBIC CATHETER) Social History Alcohol Use: No Tobacco Use: No Substance Use: No Allergies-Medications (Allergen,Severity, Reaction): Coded Allergies: divalproex sodium (Unverified Allergy, Severe, 12/17/16) levofloxacin (Unverified Allergy, Severe, 12/17/16) olanzapine (Unverified Allergy, Severe, 12/17/16) ciprofloxacin (Unverified Allergy, Intermediate, Hallucinations, 12/17/16) per pt's son hydrocodone (Unverified Allergy, Intermediate, Hallucinations, 12/17/16) per pt's son quetiapine (Unverified Allergy, Intermediate, Rash, 12/17/16) Reported Meds & Prescriptions Reported Meds & Active Scripts Active [Water, Free] 1 ML Flush 200 Ml G-TUBE DAILY Midodrine 5 Mg Tab 10 Mg PEG TID@07,12,17 30 Days Pantoprazole Sodium 40 Mg Tab 40 Mg PO DAILY 30 Days Proamatine 5 Mg Tab (Midodrine) 5 Mg Tab 5 Mg PO TID@07,12,17 15 Days Reported Tylenol 325 Mg Tab (Acetaminophen) 325 Mg Tab 650 Mg PEG Q8HR PRN Allopurinol 100 Mg Tab 100 Mg PEG DAILY Calcium + D (Calcium Carbonate-Vitamin D) 600 Mg Tab 1 Tab PEG DAILY Zantac (Ranitidine HCl) 150 Mg Tab 150 Mg PEG BID Loperamide (Loperamide HCl) 2 Mg Tab 2 Mg PEG Q12HR PRN DO NOT EXCEED 8 TABLETS/CAPSULES PER 24 HOURS Review of Systems ROS Limitations: Poor Historian Physical Exam Narrative GENERAL: Well-developed, well-nourished, awake, alert, elderly-appearing male, no apparent distress. SKIN: Focused skin assessment warm/dry. HEAD: Atraumatic. Normocephalic. EYES: Pupils equal and round. No scleral icterus. No injection or drainage. ENT: No nasal bleeding or discharge. Mucous membranes pink and moist. CARDIOVASCULAR: Regular rate and rhythm. RESPIRATORY: No accessory muscle use. Clear to auscultation. Breath sounds equal bilaterally. GASTROINTESTINAL: Abdomen soft, non-tender, nondistended. Left upper abdomen with Soto catheter at PEG tube site. The site is clean, dry, intact. No warmth or erythema. MUSCULOSKELETAL: No obvious deformities. No clubbing. No cyanosis. No edema. NEUROLOGICAL: Awake and alert. Data Data Last Documented VS Vital Signs Date Time Temp Pulse Resp B/P (MAP) Pulse Ox O2 Delivery O2 Flow Rate FiO2 09/29/17 21:36 Room Air 09/29/17 21:25 98.2 78 18 134/75 (94) 100 MDM Medical Decision Making Medical Screen Exam Complete: Yes Emergency Medical Condition: Yes Differential Diagnosis Dislodged PEG tube Narrative Course Soto catheter was removed from PEG tube site and an 18 Nigerien PEG tube was face by me. Stomach contents were aspirated. No complications. See procedure note. He will be discharged back to his custodial. Procedures Procedure Narrative PEG tube replacement: Soto catheter was removed from left upper quadrant abdominal PEG tube site and an 18 Nigerien PEG tube was easily placed through the stoma. Stomach contents were aspirated. Tolerated well. No complications. Diagnosis Primary Impression: PEG tube malfunction Referrals: Primary Care Physician 1 week Disposition: 03 DISCHARGE TO SNF Condition: Stable Raúl Shipley MD September 29, 2017 21:24
[2017-09-29 21:25] VITALS: BP 134/75; PULSE 78; RESP 18; TEMP 98.2; O2SAT 100
[2017-09-30 06:00] VITALS: BP 131/72; PULSE 79; RESP 14; O2SAT 99
[2017-09-30 07:00] VITALS: BP 124/77; PULSE 72; RESP 16; O2SAT 99
[2017-09-30 08:40] VITALS: BP 134/78; TEMP 97.8
== END 2017-09-30 08:52 ==
LOC: NEPC 21:13
DX: Z43.1 Encounter for attention to gastrostomy (principal); F03.90 Unspecified dementia, unspecified severity, without behavioral disturbance, psychotic disturbance, mood disturbance, and anxiety; K21.9 Gastro-esophageal reflux disease without esophagitis; I10 Essential (primary) hypertension; F32.9 Major depressive disorder, single episode, unspecified; E03.9 Hypothyroidism, unspecified
CPT/HCPCS: 99284

== ENCOUNTER 2018-04-16 16:51 | Inpatient (IN) ==
[2018-04-16] MEDS ORDERED: Vancomycin Inj 1,000 MG in Sodium Chlor 0.9% Inj 250 ML IV.SIG ONE (17:17)
[2018-04-16] MEDS ORDERED: Piperacil/Tazo 4.5 GM Premix 4.5 GM/100 ML BAG IV.SIG ONE (17:18)
[2018-04-16] MEDS ORDERED: Sod Chloride 0.9% Inj 1,000 ML IV.SIG SCH ×2 (17:30→19:00)
--- NOTE | 2018-04-16 17:46 | XR ---
EXAM DATE: 04/16/2018 5:43 PM EST AGE/SEX: 78 years / Male INDICATIONS: Fever. CLINICAL DATA: This is the patient's initial encounter. Patient reports that signs and symptoms have been present for 1 day and indicates a pain score of 0/10. MEDICAL/SURGICAL HISTORY: Hypertension. None. COMPARISON: [facility] [place], CHEST SINGLE AP, 10/18/2015. . FINDINGS: There is some mild infiltrates in both lung bases. Otherwise the rest the lungs are grossly clear. Th ere is some mild prominence of pulmonary vasculature. The heart size is within normal limits. The bon y structures are grossly intact. CONCLUSION: 1. Mild bibasilar infiltrates. 2. Pulmonary venous congestion. Electronically signed by: Abdiaziz Santillan MD Board Certified Radiologist 04/16/2018 5:45 PM EST
[2018-04-16 17:56] LABS: Baso % (Auto) 0.6 % (0.0-2.0); Eos # (Auto) 0.1 th/mm3 (0.0-0.4); Hematocrit 46.6 % (39.0-51.0); Hemoglobin 15.9 gm/dL (13.0-17.0); Lymph # (Auto) 2.2 th/mm3 (1.0-4.8); Lymph % (Auto) 27.5 % (9.0-44.0); Mean Corpuscular Hemoglobin 31.2 pg (27.0-34.0); Mean Corpuscular Volume 91.7 fL (80.0-100.0); Mean Platelet Volume 11.7 fL (7.0-11.0); Mono # (Auto) 0.6 th/mm3 (0.0-0.9); Neut # (Auto) 5.1 th/mm3 (1.8-7.7); Neut % (Auto) 63.9 % (16.0-70.0); Platelet Count 144 th/mm3 (150-450); Red Blood Count 5.09 mil/mm3 (4.50-5.90); Red Cell Distribution Width 17.5 % (11.6-17.2)
--- NOTE | 2018-04-16 18:06 | CT ---
EXAM DATE: 04/16/2018 6:00 PM EST AGE/SEX: 78 years / Male INDICATIONS: Abdominal pain. CLINICAL DATA: This is the patient's initial encounter. Patient reports that signs and symptoms have been present for 1 day and indicates a pain score of 5/10. MEDICAL/SURGICAL HISTORY: Gastroesophageal reflux disease. Hypertension. Parkinson's disease. GI Bleed. Dementia. . Gastrostomy. RADIATION DOSE: 17.12 CTDI (mGy) COMPARISON: No prior exams available for comparison. TECHNIQUE: Multiple contiguous axial images were obtained through the abdomen. Images were obtained using multiple row detector helical technique. Using automated exposure control and adjustment of the mA and/or kV according to patient size, radiation dose was kept as low as reasonably achievable to o btain optimal diagnostic quality images. DICOM format image data is available electronically for rev iew and comparison. FINDINGS: Very minimal parenchymal changes present in the left lung base, nonspecific. Moderate atherosclerotic vascular calcification is present. The liver is free of focal defects. Colon sits anterior to liver, a normal variant Large gallstone in a benign-appearing gallbladder Pancreas and spleen appear unremarkable Adrenal glands unremarkable Right kidney: Right kidney is small with 1.2 cm exophytic probably cyst Left kidney: Nonobstructing elongated 6 moderate calcification in the renal pelvis. Scattered small c ortical cyst without perinephric stranding. There is no retroperitoneal adenopathy Is cecum, transverse, descending colon are unremarkable. Descending colon is unremarkable There are scattered diverticuli in the sigmoid colon. Large bolus of stool is seen in the rectosigmoid. Bladder decompressed by Soto. Extensive prosthetic calcifications are noted. There is no abdominal w all hernia. There is no inguinal adenopathy Review of bone windows reveals extensive degenerative changes in the thoracolumbar spine with scolios is. CONCLUSION: 1. Nonspecific parenchymal changes left lung base. 2. Large gallstone in a benign-appearing gallbladder 3. Nonobstructing left renal stone, lack of intravenous contrast makes detection of etiology such as pyonephritis difficult. 4. There are no inflammatory changes in the abdomen. 5. Large bolus of stool in the rectum. Bladder decompressed by Soot Electronically signed by: Hitesh Jim MD Board Certified Radiologist 04/16/2018 6:05 PM EST
--- NOTE | 2018-04-16 18:07 | CT ---
EXAM DATE: 04/16/2018 6:01 PM EST AGE/SEX: 78 years / Male INDICATIONS: Shortness of breath. CLINICAL DATA: This is the patient's initial encounter. Patient reports that signs and symptoms have been present for 1 day and indicates a pain score of 0/10. MEDICAL/SURGICAL HISTORY: Hypertension. Parkinson's disease. Gastroesophageal reflux disease. GI Bleed. Dementia. . Gastrostomy. RADIATION DOSE: 17.12 CTDI (mGy) ; Combined studies COMPARISON: No prior exams available for comparison. TECHNIQUE: Multiple contiguous axial images were obtained through the chest without contrast. Image s were obtained in suspended respiration using multiple row detector helical technique. Using automa edwina exposure control and adjustment of the mA and/or kV according to patient size, radiation dose was kept as low as reasonably achievable to obtain optimal diagnostic quality images. DICOM format imag e data is available electronically for review and comparison. FINDINGS: Lungs: The heart is enlarged with mild interstitial edema present. Minimal parenchymal changes in th e left base. Small granuloma laterally in the right lung. Mediastinum: There is no axillary or mediastinal adenopathy. Minimal assess chronic vascular callus occasions are noted. There is no pericardial effusion. Bony Structures: Degenerative changes present in the thoracic spine. Miscellaneous: Gallstones with small liver, findings described in detail on CT scan of the abdomen. CONCLUSION: 1. Cardiomegaly with mild interstitial edema. 2. Minimal parenchymal changes left lung base, nonspecific. This could be early inflammatory process Electronically signed by: Hitesh Jim MD Board Certified Radiologist 04/16/2018 6:06 PM EST
[2018-04-16 18:27] LABS: Albumin 2.8 g/dL (3.4-5.0); Anion Gap 9 meq/L (5-15); Blood Urea Nitrogen 37 mg/dL (7-18); Calcium 9.1 mg/dL (8.5-10.1); Chloride 111 meq/L (98-107); Glomerular Filtration Rate 50 mL/min (>89); Glucose,Random 111 mg/dL (74-106); Magnesium 2.2 mg/dL (1.5-2.5); Sodium 145 meq/L (136-145)
[2018-04-16 18:29] LABS: Alanine Aminotransferase 19 U/L (12-78); Aspartate Aminotransferase 32 U/L (15-37)
[2018-04-16 18:31] LABS: Alkaline Phosphatase 82 U/L (45-117); Total Protein 7.4 g/dL (6.4-8.2)
[2018-04-16 18:42] LABS: Bacteria,Urine Many /hpf; Bilirubin,Urine Negative (Negative); Clarity,Urine Turbid (Clear); Color,Urine Amber (Yellw/Straw); Glucose,Urine (UA) Negative (Negative); Hyaline Casts,Urine 15 /lpf (0-3); Leukocyte Esterase,Urine Large (Negative); Mucus,Urine Few /lpf (Occasional); Nitrite,Urine Negative (Negative); Specific Gravity,Urine 1.025 (1.002-1.035)
[2018-04-16 18:45] LABS: Urobilinogen,Urine 0.2 mg/dL (Less than 2)
--- NOTE | 2018-04-16 19:43 | ED ---
HPI General Chief complaint: Altered Mental Status Stated complaint: fever/evac Time Seen by Provider: 04/16/18 16:58 History of Present Illness HPI narrative: patient is an 78 year old male presents from [place] to the ER for evaluation of altered mental status and low oxygen saturations. Per EMS, patient SOB and has had decreased saturations to high 80's prior to their arrival. patient is history of dementia and talks very little at baseline. No family members at baseline and patient's mental status limits history. patient apparently has a history of recurrent and "severe" UTI's and has SP tube in place as well as feeding tube. Related Data Home Medications Medication Instructions Recorded Confirmed acetaminophen [Tylenol] 650 mg FEEDING TUBE BID PRN 04/16/18 04/16/18 allopurinol 100 mg FEEDING TUBE DAILY 04/16/18 04/16/18 calcium carbonate-vitamin D3 1 tab PO DAILY 04/16/18 04/16/18 [Calcium 600 + D(3)] fenofibrate nanocrystallized 145 mg PO DAILY 04/16/18 04/16/18 [Tricor] lactulose 10 g PO QID 04/16/18 04/16/18 ranitidine HCl [Zantac] 150 mg FEEDING TUBE BID 04/16/18 04/16/18 simethicone 160 mg FEEDING TUBE Q12HR 04/16/18 04/16/18 Allergies Allergy/AdvReac Type Severity Reaction Status Date / Time divalproex sodium Allergy Severe Unverified 12/17/16 12:35 levofloxacin Allergy Severe Unverified 12/17/16 12:35 olanzapine Allergy Severe Unverified 12/17/16 12:35 ciprofloxacin Allergy Intermediate Hallucinati Unverified 12/17/16 12:35 ons hydrocodone Allergy Intermediate Hallucinati Unverified 12/17/16 12:35 ons quetiapine Allergy Intermediate Rash Unverified 12/17/16 12:35 Review of Systems ROS: all other systems reviewed are negative PMFSH Family History Family History Other Family history unobtainable Social History Social History Substance History: Unable to Obtain Smoking Status: Unknown if ever smoked How Often Do You Have a Drink Containing Alcohol: Unable to Obtain Recent Travel in [facility] within the Last 8 Weeks: No Recent Out of Country Travel within the Last 8 Weeks: No Immunization History Tetanus Immunization: Unable to Assess Exam Narrative Exam Narrative: GENERAL: Well-developed well-nourished chronically ill male. SKIN: Focused skin assessment warm/dry. HEAD: Atraumatic. Normocephalic. EYES: Pupils equal and round. No scleral icterus. No injection or drainage. ENT: No nasal bleeding or discharge. Mucous membranes pink and moist. NECK: Trachea midline. No JVD. CARDIOVASCULAR: Regular rate and rhythm. No murmur appreciated. RESPIRATORY: No accessory muscle use. Clear to auscultation. Breath sounds equal bilaterally. GASTROINTESTINAL: Abdomen soft, non-tender, nondistended. Hepatic and splenic margins not palpable. SP and NG tube in place. Clean dry and intact at the sites. MUSCULOSKELETAL: No obvious deformities. No clubbing. No cyanosis. No edema. NEUROLOGICAL: Awake and alert, mute. Appears chronically fatigued. There is some atrophy in the extremities. PSYCHIATRIC: Appropriate mood and affect; insight and judgment normal. Course Initial Documented Vital Signs Temperature 98.7 F 04/16/18 17:04 Pulse Rate 99 H 04/16/18 17:04 Respiratory Rate 37 H 04/16/18 17:04 Blood Pressure 128/73 04/16/18 17:04 Pulse Oximetry 92 L 04/16/18 17:04 Last Documented Vital Signs Temperature 97.6 F 04/17/18 16:00 Pulse Rate 70 04/17/18 16:00 Respiratory Rate 16 04/17/18 16:00 Blood Pressure 105/57 L 04/17/18 16:00 Pulse Oximetry 95 04/17/18 16:00 Medical Decision Making MDM Narrative Medical decision making narrative: Patient roomed in the ER, is tachypneic on arrival. Appears ill. NS bolus started (2L) lactic is elevated (minimally). Vancomycin and zosyn ordered. BP is WNL. Patient d/w Dr. Brenner for admission for UTI with sepsis. Medical Screen Exam Complete: Yes Emergency Medical Condition: Yes Lab Data Result diagrams: 04/17/18 04:55 04/17/18 04:55 Lab Results 04/16/18 04/16/18 04/16/18 Range/Units 17:20 17:20 17:20 WBC 8.0 (4.0-11.0) th/mm3 RBC 5.09 (4.50-5.90) mil/mm3 Hgb 15.9 (13.0-17.0) gm/dL Hct 46.6 (39.0-51.0) % MCV 91.7 (80.0-100.0) fL MCH 31.2 (27.0-34.0) pg MCHC 34.0 (32.0-36.0) % RDW 17.5 H (11.6-17.2) % Plt Count 144 L (150-450) th/mm3 MPV 11.7 H (7.0-11.0) fL Prelim Diff (Auto) Neut % (Auto) 63.9 (16.0-70.0) % Lymph % (Auto) 27.5 (9.0-44.0) % Falls % (Auto) 7.0 (0.0-8.0) % Eos % (Auto) 1.0 (0.0-4.0) % Baso % (Auto) 0.6 (0.0-2.0) % Neut # (Auto) 5.1 (1.8-7.7) th/mm3 Lymph # (Auto) 2.2 (1.0-4.8) th/mm3 Falls # (Auto) 0.6 (0.0-0.9) th/mm3 Eos # (Auto) 0.1 (0.0-0.4) th/mm3 Baso # (Auto) 0.0 (0.0-0.2) th/mm3 WBC Differential . Seg Neuts % (Manual) (16-70) % Band Neuts % (Manual) (0-6) % Lymphocytes % (Manual) (9-44) % Monocytes % (Manual) (0-8) % Abs Neuts (Manual) (1.8-7.7) th/mm3 Differential Comment Auto diff final Platelet Estimate (Normal) Platelet Morphology (Normal) Sodium 145 (136-145) meq/L Potassium 4.0 (3.5-5.1) meq/L Chloride 111 H (98-107) meq/L Carbon Dioxide 25.0 (21.0-32.0) meq/L Anion Gap 9 (5-15) meq/L BUN 37 H (7-18) mg/dL Creatinine 1.36 H (0.60-1.30) mg/dL Estimated GFR 50 L (>89) mL/min Random Glucose 111 H (74-106) mg/dL Lactic Acid 2.3 H (0.4-2.0) mmol/L Calcium 9.1 (8.5-10.1) mg/dL Magnesium 2.2 (1.5-2.5) mg/dL Total Bilirubin 0.3 (0.2-1.0) mg/dL AST 32 (15-37) U/L ALT 19 (12-78) U/L Alkaline Phosphatase 82 (45-117) U/L B-Natriuretic Peptide (0-100) pg/mL Total Protein 7.4 (6.4-8.2) g/dL Albumin 2.8 L (3.4-5.0) g/dL Urine Color (Yellw/Straw) Urine Clarity (Clear) Urine pH (5.0-8.5) Ur Specific [place] (1.002-1.035) Urine Protein (Neg-Trace) mg/dL Urine Glucose (UA) (Negative) mg/dL Urine Ketones (Negative) mg/dL Urine Occult Blood (Negative) Urine Nitrate (Negative) Urine Bilirubin (Negative) Urine Urobilinogen (Less than 2) mg/dL Ur Leukocyte Esterase (Negative) Urine RBC (0-3) /hpf Urine WBC (0-5) /hpf Urine WBC Clumps (None) Urine Bacteria (None) /hpf Hyaline Casts (0-3) /lpf Urine Mucus (Occasional) /lpf Micro UA Comment Ur Microscopic Review Urine Culture Comments 04/16/18 04/16/18 04/17/18 Range/Units 17:25 23:43 04:55 WBC 6.8 (4.0-11.0) th/mm3 RBC 4.92 (4.50-5.90) mil/mm3 Hgb 14.7 (13.0-17.0) gm/dL Hct 45.0 (39.0-51.0) % MCV 91.6 (80.0-100.0) fL MCH 29.9 (27.0-34.0) pg MCHC 32.7 (32.0-36.0) % RDW 17.6 H (11.6-17.2) % Plt Count 130 L (150-450) th/mm3 MPV 12.0 H (7.0-11.0) fL Prelim Diff (Auto) Slide review pending Neut % (Auto) 55.0 (16.0-70.0) % Lymph % (Auto) 35.1 (9.0-44.0) % Falls % (Auto) 7.0 (0.0-8.0) % Eos % (Auto) 2.3 (0.0-4.0) % Baso % (Auto) 0.6 (0.0-2.0) % Neut # (Auto) 3.7 (1.8-7.7) th/mm3 Lymph # (Auto) 2.4 (1.0-4.8) th/mm3 Falls # (Auto) 0.5 (0.0-0.9) th/mm3 Eos # (Auto) 0.2 (0.0-0.4) th/mm3 Baso # (Auto) 0.0 (0.0-0.2) th/mm3 WBC Differential Manual diff final Seg Neuts % (Manual) 49 (16-70) % Band Neuts % (Manual) 7 H (0-6) % Lymphocytes % (Manual) 35 (9-44) % Monocytes % (Manual) 9 H (0-8) % Abs Neuts (Manual) 3.8 (1.8-7.7) th/mm3 Differential Comment . Platelet Estimate Low L (Normal) Platelet Morphology Normal (Normal) Sodium (136-145) meq/L Potassium (3.5-5.1) meq/L Chloride (98-107) meq/L Carbon Dioxide (21.0-32.0) meq/L Anion Gap (5-15) meq/L BUN (7-18) mg/dL Creatinine (0.60-1.30) mg/dL Estimated GFR (>89) mL/min Random Glucose (74-106) mg/dL Lactic Acid 1.7 (0.4-2.0) mmol/L Calcium (8.5-10.1) mg/dL Magnesium (1.5-2.5) mg/dL Total Bilirubin (0.2-1.0) mg/dL AST (15-37) U/L ALT (12-78) U/L Alkaline Phosphatase (45-117) U/L B-Natriuretic Peptide (0-100) pg/mL Total Protein (6.4-8.2) g/dL Albumin (3.4-5.0) g/dL Urine Color Lianna (Yellw/Straw) Urine Clarity Turbid H (Clear) Urine pH 5.0 (5.0-8.5) Ur Specific [place] 1.025 (1.002-1.035) Urine Protein 100 H (Neg-Trace) mg/dL Urine Glucose (UA) Negative (Negative) mg/dL Urine Ketones Negative (Negative) mg/dL Urine Occult Blood Negative (Negative) Urine Nitrate Negative (Negative) Urine Bilirubin Negative (Negative) Urine Urobilinogen 0.2 (Less than 2) mg/dL Ur Leukocyte Esterase Large H (Negative) Urine RBC 36 H (0-3) /hpf Urine WBC (0-5) /hpf Urine WBC Clumps Many H (None) Urine Bacteria Many H (None) /hpf Hyaline Casts 15 (0-3) /lpf Urine Mucus Few H (Occasional) /lpf Micro UA Comment Cath-culture ind Ur Microscopic Review Not Reportable Urine Culture Comments Cath-cult indicated 04/17/18 04/17/18 Range/Units 04:55 04:55 WBC (4.0-11.0) th/mm3 RBC (4.50-5.90) mil/mm3 Hgb (13.0-17.0) gm/dL Hct (39.0-51.0) % MCV (80.0-100.0) fL MCH (27.0-34.0) pg MCHC (32.0-36.0) % RDW (11.6-17.2) % Plt Count (150-450) th/mm3 MPV (7.0-11.0) fL Prelim Diff (Auto) Neut % (Auto) (16.0-70.0) % Lymph % (Auto) (9.0-44.0) % Falls % (Auto) (0.0-8.0) % Eos % (Auto) (0.0-4.0) % Baso % (Auto) (0.0-2.0) % Neut # (Auto) (1.8-7.7) th/mm3 Lymph # (Auto) (1.0-4.8) th/mm3 Falls # (Auto) (0.0-0.9) th/mm3 Eos # (Auto) (0.0-0.4) th/mm3 Baso # (Auto) (0.0-0.2) th/mm3 WBC Differential Seg Neuts % (Manual) (16-70) % Band Neuts % (Manual) (0-6) % Lymphocytes % (Manual) (9-44) % Monocytes % (Manual) (0-8) % Abs Neuts (Manual) (1.8-7.7) th/mm3 Differential Comment Platelet Estimate (Normal) Platelet Morphology (Normal) Sodium 144 (136-145) meq/L Potassium 4.0 (3.5-5.1) meq/L Chloride 113 H (98-107) meq/L Carbon Dioxide 25.9 (21.0-32.0) meq/L Anion Gap 5 (5-15) meq/L BUN 28 H (7-18) mg/dL Creatinine 1.07 (0.60-1.30) mg/dL Estimated GFR 66 L (>89) mL/min Random Glucose 78 (74-106) mg/dL Lactic Acid (0.4-2.0) mmol/L Calcium 7.8 L D (8.5-10.1) mg/dL Magnesium (1.5-2.5) mg/dL Total Bilirubin 0.6 (0.2-1.0) mg/dL AST 29 (15-37) U/L ALT 16 (12-78) U/L Alkaline Phosphatase 64 (45-117) U/L B-Natriuretic Peptide 42 (0-100) pg/mL Total Protein 6.7 D (6.4-8.2) g/dL Albumin 2.7 L (3.4-5.0) g/dL Urine Color (Yellw/Straw) Urine Clarity (Clear) Urine pH (5.0-8.5) Ur Specific Faith (1.002-1.035) Urine Protein (Neg-Trace) mg/dL Urine Glucose (UA) (Negative) mg/dL Urine Ketones (Negative) mg/dL Urine Occult Blood (Negative) Urine Nitrate (Negative) Urine Bilirubin (Negative) Urine Urobilinogen (Less than 2) mg/dL Ur Leukocyte Esterase (Negative) Urine RBC (0-3) /hpf Urine WBC (0-5) /hpf Urine WBC Clumps (None) Urine Bacteria (None) /hpf Hyaline Casts (0-3) /lpf Urine Mucus (Occasional) /lpf Micro UA Comment Ur Microscopic Review Urine Culture Comments Imaging Data Radiologist's impression: Chest X-Ray 04/16/18 17:15 CONCLUSION: 1. Mild bibasilar infiltrates. 2. Pulmonary venous congestion. Abdomen/Pelvis CT 04/16/18 17:16 CONCLUSION: 1. Nonspecific parenchymal changes left lung base. 2. Large gallstone in a benign-appearing gallbladder 3. Nonobstructing left renal stone, lack of intravenous contrast makes detection of etiology such as pyonephritis difficult. 4. There are no inflammatory changes in the abdomen. 5. Large bolus of stool in the rectum. Bladder decompressed by Soto Chest CT 04/16/18 17:16 CONCLUSION: 1. Cardiomegaly with mild interstitial edema. 2. Minimal parenchymal changes left lung base, nonspecific. This could be early inflammatory process Discharge Plan Discharge Disposition Patient Disposition: ED Admit(ED Internal Use Only) Discharge Condition Condition: Stable Discharge Order Discharge Orders: ED Use Only Admit Order (Routine); Ordered 04/16/18 Ordered By: Neymar Chopra Discharge Details Diagnosis: Sepsis, Acute UTI Physicians Team ED Provider: Neymar Chopra Primary Care Provider: Ruben Oh V Attending Provider: Shaina Sanford Other Providers: Yuniel Brice ; Moustapha Talbert ; [facility] C,Agency Status ED Status: Left Department Discharge Information Discharge Date/Time: 04/16/18 23:24
[2018-04-16] MEDS ORDERED: Acetaminophen 325 MG Tablet PO PRN (19:45)
[2018-04-16] MEDS ORDERED: Bisacodyl 10 MG Supp RECTAL PRN (19:45)
[2018-04-16] MEDS ORDERED: LACTULOSE 10 GM PO SCH (21:00)
[2018-04-16] MEDS: Sod Chloride 0.9% Inj 1,000 ML IV.CONT SCH (22:24)
[2018-04-16] MEDS: Simethicone 80 MG Chew Tablet G-TUBE SCH (22:24)
[2018-04-16] MEDS: Famotidine 20 MG Tablet NG/OG SCH (22:25)
[2018-04-17] MEDS: Piperacil/Tazo 3.375 GM Premix 3.375 GM/50 ML PIGGYBACK IV.SIG SCH ×5 (05:18→23:38)
[2018-04-17 05:52] LABS: Baso % (Auto) 0.6 % (0.0-2.0); Eos # (Auto) 0.2 th/mm3 (0.0-0.4); Eos % (Auto) 2.3 % (0.0-4.0); Hemoglobin 14.7 gm/dL (13.0-17.0); Lymph # (Auto) 2.4 th/mm3 (1.0-4.8); Lymph % (Auto) 35.1 % (9.0-44.0); Mean Corpuscular HGB Conc 32.7 % (32.0-36.0); Mean Corpuscular Hemoglobin 29.9 pg (27.0-34.0); Mean Corpuscular Volume 91.6 fL (80.0-100.0); Mono # (Auto) 0.5 th/mm3 (0.0-0.9); Neut # (Auto) 3.7 th/mm3 (1.8-7.7); Platelet Count 130 th/mm3 (150-450); Red Blood Count 4.92 mil/mm3 (4.50-5.90); Red Cell Distribution Width 17.6 % (11.6-17.2); White Blood Count 6.8 th/mm3 (4.0-11.0)
[2018-04-17] MEDS ORDERED: Vancomycin Consult Pharmacy OTHER PRN (06:00)
[2018-04-17] MEDS ORDERED: Sod Phosphate/Sod Biphosphate (Adult) Enema 133 ML Bottle RECTAL ONE (06:11)
--- NOTE | 2018-04-17 06:15 | P.HPIM ---
History of Present Illness Primary Care Physician: Ruben Oh MD History of Present Illness: 78-year-old male with a history of severe dementia, Parkinson's on feeding tube , recurrent UTIs presents the ER from [facility] with saturations in the low 80s. Patient is sleeping at the time of examination. Wakes up but is nonverbal. Inpatient Certification: I certify that the inpatient services were ordered in accordance with Medicare regulations governing the order. This includes certification that hospital inpatient services are reasonable and necessary and in the case of services not specified as inpatient-only under 42 CFR 419.22(n), that they are appropriately provided as inpatient services in accordance to with the 2-midnight benchmark under 43 CFR 412.3(e) Estimated Total Length of Stay (Days): 2 Plans for Post Hospital Care: Not yet determined Review of Systems All other systems reviewed negative except as stated in [facility] - History History Provided By: Patient - Medical History Medical History: Medical History (Last Reviewed 04/17/18 @ 05:58 by Maury Brenner MD) Dementia Depression Dysphagia GERD (gastroesophageal reflux disease) GI bleed Hypotension Muscle weakness Parkinson disease UTI (urinary tract infection) - Surgical History Surgical History: Surgical History (Last Reviewed 04/17/18 @ 05:58 by Maury Brenner MD) Gastrostomy in place - Family History Family History: Family History (Last Updated 04/17/18 @ 05:59 by Maury Brenner MD) Other Family history unobtainable - Tobacco History Smoking Status: Unknown if ever smoked - Alcohol History How Often Do You Have a Drink Containing Alcohol: Unable to Obtain - Substance Use History Substance History: Unable to Obtain - Travel History Recent Travel in the [place] Within the Last 8 Weeks: No Recent Travel Out of the Country Within the Last 8 Weeks: No - Immunization History Tetanus Immunization: Unable to Assess Medications and Allergies Active Medications: Active Medications Acetaminophen (Tylenol) 650 mg PO Q4H PRN PRN Reason: Temp > 100.4 Al Hydroxide/Mg Hydroxide (Milk Of Magnesia Liq) 30 ml PO Q12H PRN PRN Reason: Mild Constipation Allopurinol (Zyloprim) 100 mg G-TUBE DAILY [facility] Bisacodyl (Dulcolax Supp) 10 mg RECTAL DAILY PRN PRN Reason: SEVERE CONSITIPATION Famotidine (Pepcid) 10 mg NG/OG BID ELLIS Last Admin: 04/16/18 22:25 Dose: 10 mg Fenofibrate (Tricor) 48 mg PO DAILY [facility] Sodium Chloride (Ns Inj) 1,000 mls @ 50 mls/hr IV.CONT .Q20H [facility] Last Admin: 04/16/18 22:24 Dose: 50 mls/hr Piperacillin/Tazobactam/Dextrose (Zosyn 3.375 Gm Premix) 3.375 gm in 50 mls @ 100 mls/hr IV.SIG Q6H [facility] Last Admin: 04/17/18 05:18 Dose: 100 mls/hr Lactulose (Lactulose Liq) 30 ml PO DAILY PRN PRN Reason: SEVERE CONSITIPATION Lactulose (Lactulose Liq) 15 ml PO QID [facility] Ondansetron HCl (Zofran Inj) 4 mg IV.PUSH Q6H PRN PRN Reason: NAUSEA OR VOMITING Sennosides (Senokot) 17.2 mg PO Q12H PRN PRN Reason: Moderate Constipation Simethicone (Mylicon Chew) 160 mg G-TUBE Q12HR [facility] Last Admin: 04/16/18 22:24 Dose: 160 mg Sodium Chloride (Ns Flush) 2 ml IV.FLUSH BID [facility] Last Admin: 04/16/18 22:25 Dose: 2 ml Sodium Chloride (Ns Flush) 2 ml IV.FLUSH PRN PRN PRN Reason: FLUSH AFTER USING IV ACCESS Allergies Allergy/AdvReac Type Severity Reaction Status Date / Time divalproex sodium Allergy Severe Unverified 12/17/16 12:35 levofloxacin Allergy Severe Unverified 12/17/16 12:35 olanzapine Allergy Severe Unverified 12/17/16 12:35 ciprofloxacin Allergy Intermediate Hallucinati Unverified 12/17/16 12:35 ons hydrocodone Allergy Intermediate Hallucinati Unverified 12/17/16 12:35 ons quetiapine Allergy Intermediate Rash Unverified 12/17/16 12:35 Home Medications Medication Instructions Recorded Confirmed Type acetaminophen [Tylenol] 650 mg FEEDING TUBE BID PRN 04/16/18 04/16/18 History allopurinol 100 mg FEEDING TUBE DAILY 04/16/18 04/16/18 History calcium carbonate-vitamin D3 1 tab PO DAILY 04/16/18 04/16/18 History [Calcium 600 + D(3)] fenofibrate nanocrystallized 145 mg PO DAILY 04/16/18 04/16/18 History [Tricor] lactulose 10 g PO QID 04/16/18 04/16/18 History ranitidine HCl [Zantac] 150 mg FEEDING TUBE BID 04/16/18 04/16/18 History simethicone 160 mg FEEDING TUBE Q12HR 04/16/18 04/16/18 History Exam Vital signs: Vital Signs 04/16/18 17:04 04/16/18 18:09 04/16/18 18:10 Temperature 98.7 F Pulse Rate 99 H 90 73 Respiratory Rate 37 H 16 16 Blood Pressure 128/73 110/66 Pulse Oximetry 92 L 94 L 94 L 04/16/18 20:00 04/17/18 00:00 04/17/18 04:00 Temperature 98.3 F 98.8 F Pulse Rate 75 75 73 Respiratory Rate 16 16 16 Blood Pressure 122/78 104/60 Pulse Oximetry 95 94 L Intake & Output 04/16/18 04/16/18 04/17/18 06:59 18:59 06:59 Intake Total 1000 / 1000 1400 / 1400 Balance 1000 / 1000 1400 / 1400 Weight 90.718 kg Intake: IV 1000 / 1000 1400 / 1400 Zosyn 3.375 GM Premix 3.375 gm 50 / 50 In 50 ml @ 100 mls/hr IV.SIG Q6H [facility] Rx#:[id number] Zosyn 4.5 GM Premix 4.5 gm In 100 / 100 100 ml @ 8.299 mls/hr IV.SIG ONCE ONE Rx#:[id number] NS Inj 1,000 ML @ 1000 mls/hr 1000 / 1000 1000 / 1000 IV.SIG BOLUS [facility] Rx#:[id number] Vancomycin Inj 1,000 MG In NS 250 / 250 Inj 250 ML @ 250 mls/hr IV.SIG ONCE ONE Rx#:[id number] Other: Date of Last Bowel Movement 04/17/18 Narrative: GENERAL: Patient lying in bed. Sleeping, wakes up briefly for exam. SKIN: Warm and dry. HEAD: Atraumatic. Normocephalic. EYES: Pupils equal and round. No scleral icterus. No injection or drainage. ENT: No nasal bleeding or discharge. Mucous membranes pink and moist. NECK: Trachea midline. No JVD. CARDIOVASCULAR: Regular rate and rhythm. RESPIRATORY: No accessory muscle use. Clear to auscultation. Breath sounds equal bilaterally. GASTROINTESTINAL: Abdomen soft, non-tender, nondistended. Hepatic and splenic margins not palpable. PEG tube in place without any surrounding erythema or leakage. MUSCULOSKELETAL: Extremities without clubbing, cyanosis, or edema. No obvious deformities. NEUROLOGICAL: Awake and alert. No obvious cranial nerve deficits. does not cooperate with exam. PSYCHIATRIC: Appropriate mood and affect; insight and judgment normal. Results - Labs CBC & Chem 7: 04/16/18 17:20 04/16/18 17:20 Labs: Short CBC 04/16/18 Range/Units 17:20 WBC 8.0 (4.0-11.0) th/mm3 Hgb 15.9 (13.0-17.0) gm/dL Hct 46.6 (39.0-51.0) % Plt Count 144 L (150-450) th/mm3 BMP 04/16/18 17:20 Sodium 145 Potassium 4.0 Chloride 111 H Carbon Dioxide 25.0 BUN 37 H Creatinine 1.36 H Calcium 9.1 Liver Function 04/16/18 Range/Units 17:20 Total Bilirubin 0.3 (0.2-1.0) mg/dL AST 32 (15-37) U/L ALT 19 (12-78) U/L Alkaline Phosphatase 82 (45-117) U/L Albumin 2.8 L (3.4-5.0) g/dL Urine 04/16/18 Range/Units 17:25 Urine Color Lianna (Yellw/Straw) Urine Clarity Turbid H (Clear) Urine pH 5.0 (5.0-8.5) Ur Specific [place] 1.025 (1.002-1.035) Urine Protein 100 H (Neg-Trace) mg/dL Urine Glucose (UA) Negative (Negative) mg/dL - Imaging Impressions Chest X-Ray 04/16/18 17:15 CONCLUSION: 1. Mild bibasilar infiltrates. 2. Pulmonary venous congestion. Abdomen/Pelvis CT 04/16/18 17:16 CONCLUSION: 1. Nonspecific parenchymal changes left lung base. 2. Large gallstone in a benign-appearing gallbladder 3. Nonobstructing left renal stone, lack of intravenous contrast makes detection of etiology such as pyonephritis difficult. 4. There are no inflammatory changes in the abdomen. 5. Large bolus of stool in the rectum. Bladder decompressed by Soto Chest CT 04/16/18 17:16 CONCLUSION: 1. Cardiomegaly with mild interstitial edema. 2. Minimal parenchymal changes left lung base, nonspecific. This could be early inflammatory process Caprini VTE Risk Assessment Caprini VTE Risk Assessment: Moderate/High Risk (score >= 2) Caprini Risk Assessment Model: Point Value = 1 Point Value = 2 Point Value = 3 Point Value = 5 Age 41-60 Minor surgery BMI > 25 kg/m2 Swollen legs Varicose veins or History of unexplained or recurrent spontaneous Oral contraceptives or hormone replacement Sepsis (< 1 month) Serious lung disease, including pneumonia (< 1 month) Abnormal pulmonary function Acute myocardial infarction Congestive heart failure (< 1 month) History of inflammatory bowel disease Medical patient at bed rest Age 61-74 Arthroscopic surgery Major open surgery (> 45 min) Laparoscopic surgery (> 45 min) Malignancy Confined to bed (> 72 hours) Immobilizing plaster cast Central venous access Age >= 75 History of VTE Family history of VTE Factor V Leiden Prothrombin [id number] Lupus anticoagulant Anticardiolipin antibodies Elevated serum homocysteine Heparin-induced thrombocytopenia Other congenital or acquired thrombophilia Stroke (< 1 month) Elective arthroplasty Hip, pelvis, or leg fracture Acute spinal cord injury (< 1 month) Prophylaxis Regimen: Total Risk Factor Score Risk Level Prophylaxis Regimen 0-1 Low Early ambulation 2 Moderate Order ONE of the following: *Sequential Compression Device (SCD) *Heparin 5000 units SQ BID 3-4 Higher Order ONE of the following medications: *Heparin 5000 units SQ TID *Enoxaparin/Lovenox 40 mg SQ daily (WT < 150 kg, CrCl > 30 mL/min) *Enoxaparin/Lovenox 30 mg SQ daily (WT < 150 kg, CrCl > 10-29 mL/min) *Enoxaparin/Lovenox 30 mg SQ BID (WT < 150 kg, CrCl > 30 mL/min) AND/OR *Sequential Compression Device (SCD) 5 or more Highest Order ONE of the following medications: *Heparin 5000 units SQ TID (Preferred with Epidurals) *Enoxaparin/Lovenox 40 mg SQ daily (WT < 150 kg, CrCl > 30 mL/min) *Enoxaparin/Lovenox 30 mg SQ daily (WT < 150 kg, CrCl > 10-29 mL/min) *Enoxaparin/Lovenox 30 mg SQ BID (WT < 150 kg, CrCl > 30 mL/min) AND *Sequential Compression Device (SCD) Assessment and Plan - Plan //Severe sepsis //UTI //Suspected left lower lobe pneumonia. //Chronic urinary retention with suprapubic catheter. Heart rate in the 90s, respiratory rate in the 30s, with hypoxia in the 80s on presentation. UTI. -Exchange suprapubic catheterdiscussed with nursing. Appreciate nursing assistance. -Patient started on Zosyn, vancomycin to cover complicated UTI as well as possible left lower lobe pneumonia. //Constipation with what appears to be an impacted stool. Will order Fleet enema and milk of magnesia. //On chronic tube feeding. N.p.o. for now until constipation is taking care of. Hopefully restart diet today. //Chronic gout. Continue home medication GERD. Continue medication Discussed Condition With: nurse, ED physician
[2018-04-17 06:38] LABS: Alanine Aminotransferase 16 U/L (12-78); Albumin 2.7 g/dL (3.4-5.0); Alkaline Phosphatase 64 U/L (45-117); Anion Gap 5 meq/L (5-15); Aspartate Aminotransferase 29 U/L (15-37); Blood Urea Nitrogen 28 mg/dL (7-18); Calcium 7.8 mg/dL (8.5-10.1); Carbon Dioxide 25.9 meq/L (21.0-32.0); Chloride 113 meq/L (98-107); Glomerular Filtration Rate 66 mL/min (>89); Glucose,Random 78 mg/dL (74-106); Sodium 144 meq/L (136-145); Total Protein 6.7 g/dL (6.4-8.2)
[2018-04-17 07:06] LABS: Lymphocytes 35 % (9-44); Monocytes 9 % (0-8)
[2018-04-17 07:07] LABS: Platelet Morphology Normal (Normal)
--- NOTE | 2018-04-17 07:23 | ECG ---
Date Performed: 04/16/2018 Time Performed: 18:21:18 PTAGE: 78 years EKG: Sinus rhythm INCOMPLETE RIGHT BUNDLE BRANCH BLOCK RIGHT AXIS DEVIATION LOW QRS VOLTAGE IN THE LIMB LEADS INFERIOR MYOCARDIAL INFARCTION ABNORMAL ECG PREVIOUS TRACING : 10/18/2015 19.22 No significant change from previous tracing noted. DOCTOR: Brandon Santiago Interpretating Date/Time 04/17/2018 07:21:44
[2018-04-17] MEDS: Famotidine 20 MG Tablet NG/OG SCH ×2 (08:46→21:55)
[2018-04-17] MEDS: Simethicone 80 MG Chew Tablet G-TUBE SCH ×2 (08:46→21:55)
[2018-04-17] MEDS: Allopurinol 100 MG Tablet G-TUBE SCH (08:46)
[2018-04-17] MEDS: Fenofibrate 48 MG Tablet PO SCH (08:46)
[2018-04-17] MEDS ORDERED: Vancomycin Inj 700 MG in Sodium Chlor 0.9% Inj 250 ML IV.SIG SCH (09:00)
--- NOTE | 2018-04-17 10:48 | ECG ---
Date Performed: 04/17/2018 Time Performed: 01:56:22 PTAGE: 78 years EKG: Sinus rhythm . Left axis deviation Inferior infarct - age undetermined Low QRS voltages in limb leads Abnormal ECG PREVIOUS TRACING : 04/16/2018 18.21 No significant change from previous tracing noted. DOCTOR: Brandon Santiago Interpretating Date/Time 04/17/2018 10:47:19
[2018-04-17] MEDS: Vancomycin Inj 1,250 MG in Sodium Chlor 0.9% Inj 250 ML IV.SIG SCH (10:54)
--- NOTE | 2018-04-17 15:50 | P.PNIM ---
Physical Exam Vital signs: Last Vital Signs Temp 97.7 F 04/17/18 12:00 Pulse 70 04/17/18 12:00 Resp 16 04/17/18 12:00 BP 102/63 04/17/18 12:00 Pulse Ox 94 L 04/17/18 12:00 Intake & Output 04/15/18 04/16/18 04/17/18 04/18/18 06:59 06:59 06:59 06:59 Intake Total 2400 / 2400 362.5 / 362.5 Output Total 900 / 900 Balance 1500 / 1500 362.5 / 362.5 Weight 75 kg Narrative: GENERAL: Patient lying in bed. Sleeping, wakes up to voice and stimuli SKIN: Warm and dry. CARDIOVASCULAR: Regular rate and rhythm. RESPIRATORY: Diminished breath sounds in the bases GASTROINTESTINAL: Abdomen soft, non-tender, nondistended. PEG tube in place without any surrounding erythema or leakage. Suprapubic catheter in place MUSCULOSKELETAL: Extremities without clubbing, cyanosis, or edema. NEUROLOGICAL: Awake and confused not alert to person place time or situation. Urinary Catheter Management Suprapubic: Cath placed during this visit: no Results Labs CBC & Chem 7: 04/17/18 04:55 04/17/18 04:55 Labs: Microbiology 04/16/18 17:25 Suprapubic Urine Urine Culture - Preliminary Immature growth - reincubate 04/16/18 17:25 Blood - Peripheral Aerobic Blood Culture - Preliminary No growth in 1 day 04/16/18 17:25 Blood - Peripheral Anaerobic Blood Culture - Preliminary No growth in 1 day 04/16/18 17:20 Blood - Peripheral Aerobic Blood Culture - Preliminary No growth in 1 day 04/16/18 17:20 Blood - Peripheral Anaerobic Blood Culture - Preliminary No growth in 1 day Imaging Imaging: Impressions Chest X-Ray 04/16/18 17:15 CONCLUSION: 1. Mild bibasilar infiltrates. 2. Pulmonary venous congestion. Abdomen/Pelvis CT 04/16/18 17:16 CONCLUSION: 1. Nonspecific parenchymal changes left lung base. 2. Large gallstone in a benign-appearing gallbladder 3. Nonobstructing left renal stone, lack of intravenous contrast makes detection of etiology such as pyonephritis difficult. 4. There are no inflammatory changes in the abdomen. 5. Large bolus of stool in the rectum. Bladder decompressed by Soto Chest CT 04/16/18 17:16 CONCLUSION: 1. Cardiomegaly with mild interstitial edema. 2. Minimal parenchymal changes left lung base, nonspecific. This could be early inflammatory process Assessment and Plan (1) Severe sepsis: Code(s): A41.9 - Sepsis, unspecified organism; R65.20 - Severe sepsis without septic shock Status: Acute (2) Acute UTI: Code(s): N39.0 - Urinary tract infection, site not specified Status: Acute Plan 78-year-old white male with a history of dementia and Parkinson's sent from a local skilled nursing secondary to decreased saturation in the low 80s and found to have Severe sepsis present on admission with tachycardia and tachypnea, lactic acid greater than 2, with underlying source of infection of urinary tract infection and suspected left lower lobe pneumonia Continue with Zosyn and vancomycin Follow-up with blood cultures and urine cultures. Wean oxygen as tolerated. Suprapubic catheter has been changed out. History of chronic urinary retention with suprapubic catheter now with prehospital urinary tract infectionfollow with final urine cultures, catheter has been changed out. Large amount of stool constipation on CAT scanthis has resolved now as per nursing staff resolved multiple dose episodes of loose stools and diarrhea this morning. Will stop enemas. History of Parkinson's on chronic tube feeding. Continue n.p.o. and will restart tube feeds this morning. At the skilled nursing patient was receiving Isosource at 90 mils per hour from 7 PM to 11 AM. History of dementia, chronic with likely bedbound status. Physical therapy to evaluate. DVT prophylaxisheparin
[2018-04-17] MEDS: Sod Chloride 0.9% Inj 1,000 ML IV.CONT SCH ×2 (17:27→20:07)
[2018-04-18] MEDS: Vancomycin Inj 1,250 MG in Sodium Chlor 0.9% Inj 250 ML IV.SIG SCH (03:41)
[2018-04-18] MEDS: Piperacil/Tazo 3.375 GM Premix 3.375 GM/50 ML PIGGYBACK IV.SIG SCH (06:36)
[2018-04-18 09:34] LABS: Baso % (Auto) 0.4 % (0.0-2.0); Eos # (Auto) 0.2 th/mm3 (0.0-0.4); Eos % (Auto) 2.7 % (0.0-4.0); Hematocrit 44.3 % (39.0-51.0); Hemoglobin 14.5 gm/dL (13.0-17.0); Lymph # (Auto) 1.9 th/mm3 (1.0-4.8); Lymph % (Auto) 32.7 % (9.0-44.0); Mean Corpuscular HGB Conc 32.7 % (32.0-36.0); Mean Corpuscular Hemoglobin 30.3 pg (27.0-34.0); Mean Corpuscular Volume 92.7 fL (80.0-100.0); Mono # (Auto) 0.3 th/mm3 (0.0-0.9); Neut # (Auto) 3.4 th/mm3 (1.8-7.7); Neut % (Auto) 58.2 % (16.0-70.0); Platelet Count 107 th/mm3 (150-450); Red Blood Count 4.78 mil/mm3 (4.50-5.90); Red Cell Distribution Width 17.4 % (11.6-17.2); White Blood Count 5.8 th/mm3 (4.0-11.0)
[2018-04-18] MEDS: Allopurinol 100 MG Tablet G-TUBE SCH (09:43)
[2018-04-18] MEDS: Famotidine 20 MG Tablet NG/OG SCH ×2 (09:43→21:56)
[2018-04-18] MEDS: Fenofibrate 48 MG Tablet PO SCH (09:44)
[2018-04-18] MEDS: Simethicone 80 MG Chew Tablet G-TUBE SCH ×2 (09:44→21:56)
[2018-04-18 10:08] LABS: Calcium 7.9 mg/dL (8.5-10.1); Carbon Dioxide 23.7 meq/L (21.0-32.0); Potassium 4.2 meq/L (3.5-5.1)
--- NOTE | 2018-04-18 10:22 | P.PNIM ---
Subjective Interval history: nonverbal, Nursing staff reports the G tube is clogged Physical Exam Vital signs: Last Vital Signs Temp 97.1 F L 04/18/18 08:00 Pulse 72 04/18/18 08:00 Resp 18 04/18/18 08:00 BP 112/72 04/18/18 08:00 Pulse Ox 95 04/18/18 08:00 Intake & Output 04/16/18 04/17/18 04/18/18 04/19/18 06:59 06:59 06:59 06:59 Intake Total 2400 / 2400 3026.0 / 3026.0 50 / 50 Output Total 900 / 900 1250 / 1250 Balance 1500 / 1500 1776.0 / 1776.0 50 / 50 Weight 75 kg 75 kg Narrative: GENERAL: Patient lying in bed. Sleeping, wakes up to voice and stimuli SKIN: Warm and dry. CARDIOVASCULAR: Regular rate and rhythm. RESPIRATORY: Diminished breath sounds in the bases GASTROINTESTINAL: Abdomen soft, non-tender, nondistended. PEG tube in place Suprapubic catheter in place MUSCULOSKELETAL: Extremities without clubbing, cyanosis, or edema. NEUROLOGICAL: nonverbal, sleepy, opens eye to stimuli Urinary Catheter Management Suprapubic: Cath placed during this visit: yes Urethral indwelling: No Insertion date: 04/17/18 Results Labs CBC & Chem 7: 04/18/18 08:14 04/18/18 08:14 Labs: Microbiology 04/16/18 17:25 Suprapubic Urine Urine Culture - Preliminary Immature growth - reincubate 04/16/18 17:25 Blood - Peripheral Aerobic Blood Culture - Preliminary No growth in 1 day 04/16/18 17:25 Blood - Peripheral Anaerobic Blood Culture - Preliminary No growth in 1 day 04/16/18 17:20 Blood - Peripheral Aerobic Blood Culture - Preliminary No growth in 1 day 04/16/18 17:20 Blood - Peripheral Anaerobic Blood Culture - Preliminary No growth in 1 day Assessment and Plan (1) Severe sepsis: Code(s): A41.9 - Sepsis, unspecified organism; R65.20 - Severe sepsis without septic shock Status: Acute (2) Acute UTI: Code(s): N39.0 - Urinary tract infection, site not specified Status: Acute Plan 78-year-old white male with a history of dementia and Parkinson's sent from a local detention secondary to decreased saturation in the low 80s and found to have Severe sepsis present on admission with tachycardia and tachypnea, lactic acid greater than 2, with underlying source of infection of urinary tract infection and suspected left lower lobe pneumonia Clinically improving on Zosyn and vancomycin, will de-escalate as blood culture has been remain negative, urine cultures show immature growth. Will change to ceftriaxone and Zithromax, will discontinue vancomycin. Follow-up with blood cultures and urine cultures. Wean oxygen as tolerated. Suprapubic catheter has been changed out. History of chronic urinary retention with suprapubic catheter now with prehospital urinary tract infectionpreliminary urine culture showed immature growth., catheter has been changed out. Large amount of stool constipation on CAT scanthis has resolved now as per nursing staff resolved multiple dose episodes of loose stools and diarrhea this morning. Will stop enemas. History of Parkinson's on chronic tube feeding now tube feeding clogged. Continue n.p.o. consult GI for evaluation of the clogged tube. When tube can be used will restart nutrition, dietitian to be consulted for tube feed goals. At the detention patient was receiving Isosource at 90 mils per hour from 7 PM to 11 AM. History of dementia, chronic with likely bedbound status. Physical therapy to evaluate. DVT prophylaxisheparin
[2018-04-18] MEDS: Dextrose 5%/NaCl 0.45% Inj 1,000 ML IV.CONT SCH ×2 (11:30→14:16)
[2018-04-18] MEDS: Azithromycin Inj 500 MG in Sodium Chlor 0.9% Inj 250 ML IV.SIG SCH (14:30)
[2018-04-18] MEDS ORDERED: Sod Chloride 0.9% Inj 1,000 ML IV.SIG SCH (18:30)
--- NOTE | 2018-04-18 19:41 | P.CONGI ---
History of Present Illness Consult date: 04/18/18 Consult reason: PEG tube blockage Chief complaint: Sepsis, UTI History of Present Illness: Patient is an 78-year-old male with past medical history significant for severe dementia, Parkinson's, depression, dysphagia, GERD, GI bleed, hypotension , muscle weakness, Parkinson's disease, UTI. Surgical history significant for gastrostomy feeding tube. Patient [facility] due to shortness of breath with saturations in the 80s. Patient is awake and alert but is nonverbal. Upon consultation, patient' s oxygen saturation documented 97% respiratory rate 18-20. PEG tube in place, abdomen soft, nondistended with positive bowel sounds present. PEG tube flushed with 60 cc of free water. Our service has been consulted to evaluate patient for blocked PEG tube. <Mitali Morgan - Last Filed: 04/18/18 19:41> Chief complaint: Sepsis, UTI <Diaz Patino - Last Filed: 04/19/18 08:27> Review of Systems unobtainable due to mental condition <Mitali Morgan - Last Filed: 04/18/18 19:41> PMFSH - History History Provided By: Patient - Medical History Medical History: Medical History (Last Reviewed 04/18/18 @ 06:22 by Mayito Gonzalez) Dementia Depression Dysphagia GERD (gastroesophageal reflux disease) GI bleed Hypotension Muscle weakness Parkinson disease UTI (urinary tract infection) - Surgical History Surgical History: Surgical History (Last Reviewed 04/18/18 @ 06:22 by Mayito Gonzalez) Gastrostomy in place - Family History Family History: Family History (Last Updated 04/17/18 @ 05:59 by Maury Brenner MD) Other Family history unobtainable - Tobacco History Smoking Status: Unknown if ever smoked - Alcohol History How Often Do You Have a Drink Containing Alcohol: Unable to Obtain - Substance Use History Substance History: Unable to Obtain - Travel History Recent Travel in the [place] Within the Last 8 Weeks: No Recent Travel Out of the Country Within the Last 8 Weeks: No - Immunization History Tetanus Immunization: Unable to Assess <Mitali Morgan - Last Filed: 04/18/18 19:41> - Medical History Medical History: Medical History (Last Reviewed 04/18/18 @ 06:22 by Mayito Gonzalez) Dementia Depression Dysphagia GERD (gastroesophageal reflux disease) GI bleed Hypotension Muscle weakness Parkinson disease UTI (urinary tract infection) - Surgical History Surgical History: Surgical History (Last Reviewed 04/18/18 @ 06:22 by Mayito Gonzalez) Gastrostomy in place - Family History Family History: Family History (Last Updated 04/17/18 @ 05:59 by Maury Brenner MD) Other Family history unobtainable <CareyDiaz - Last Filed: 04/19/18 08:27> Medications and Allergies Active Medications: Active Medications Acetaminophen (Tylenol) 650 mg PO Q4H PRN PRN Reason: Temp > 100.4 Al Hydroxide/Mg Hydroxide (Milk Of Magnesia Liq) 30 ml PO Q12H PRN PRN Reason: Mild Constipation Allopurinol (Zyloprim) 100 mg G-TUBE DAILY [facility] Last Admin: 04/18/18 09:43 Dose: 100 mg Bisacodyl (Dulcolax Supp) 10 mg RECTAL DAILY PRN PRN Reason: SEVERE CONSITIPATION Famotidine (Pepcid) 10 mg NG/OG BID [facility] Last Admin: 04/18/18 09:43 Dose: 10 mg Fenofibrate (Tricor) 48 mg PO DAILY [facility] Last Admin: 04/18/18 09:44 Dose: 48 mg Azithromycin 500 mg/ Sodium (Chloride) 250 mls @ 250 mls/hr IV.SIG Q24H [facility] Last Infusion: 04/18/18 15:41 Dose: Infused Ceftriaxone Sodium 1,000 mg/ (Sodium Chloride) 100 mls @ 200 mls/hr IV.SIG Q24H [facility] Last Infusion: 04/18/18 16:50 Dose: Infused Sodium Chloride (Ns Inj) 1,000 mls @ 50 mls/hr IV.SIG .Q20H [facility] Last Admin: 04/18/18 18:33 Dose: 50 mls/hr Lactulose (Lactulose Liq) 30 ml PO DAILY PRN PRN Reason: SEVERE CONSITIPATION Lactulose (Lactulose Liq) 15 ml PO QID [facility] Last Admin: 04/17/18 13:09 Dose: Not Given Miscellaneous Information ([facility] Ordered Lab Info) 0 each OTHER ONCE ONE Stop: 04/19/18 15:46 Ondansetron HCl (Zofran Inj) 4 mg IV.PUSH Q6H PRN PRN Reason: NAUSEA OR VOMITING Sennosides (Senokot) 17.2 mg PO Q12H PRN PRN Reason: Moderate Constipation Simethicone (Mylicon Chew) 160 mg G-TUBE Q12HR [facility] Last Admin: 04/18/18 09:44 Dose: 160 mg Sodium Chloride (Ns Flush) 2 ml IV.FLUSH BID [facility] Last Admin: 04/18/18 09:44 Dose: 2 ml Sodium Chloride (Ns Flush) 2 ml IV.FLUSH PRN PRN PRN Reason: FLUSH AFTER USING IV ACCESS <Mitali Morgan - Last Filed: 04/18/18 19:41> Active Medications: Active Medications Acetaminophen (Tylenol) 650 mg PO Q4H PRN PRN Reason: Temp > 100.4 Al Hydroxide/Mg Hydroxide (Milk Of Magnesia Liq) 30 ml PO Q12H PRN PRN Reason: Mild Constipation Allopurinol (Zyloprim) 100 mg G-TUBE DAILY [facility] Last Admin: 04/18/18 09:43 Dose: 100 mg Bisacodyl (Dulcolax Supp) 10 mg RECTAL DAILY PRN PRN Reason: SEVERE CONSITIPATION Famotidine (Pepcid) 10 mg NG/OG BID [facility] Last Admin: 04/18/18 21:56 Dose: 10 mg Fenofibrate (Tricor) 48 mg PO DAILY [facility] Last Admin: 04/18/18 09:44 Dose: 48 mg Azithromycin 500 mg/ Sodium (Chloride) 250 mls @ 250 mls/hr IV.SIG Q24H [facility] Last Infusion: 04/18/18 15:41 Dose: Infused Ceftriaxone Sodium 1,000 mg/ (Sodium Chloride) 100 mls @ 200 mls/hr IV.SIG Q24H [facility] Last Infusion: 04/18/18 16:50 Dose: Infused Sodium Chloride (Ns Inj) 1,000 mls @ 50 mls/hr IV.SIG .Q20H [facility] Last Infusion: 04/19/18 05:31 Dose: 50 mls/hr Lactulose (Lactulose Liq) 30 ml PO DAILY PRN PRN Reason: SEVERE CONSITIPATION Lactulose (Lactulose Liq) 15 ml PO QID [facility] Last Admin: 04/17/18 13:09 Dose: Not Given Miscellaneous Information ([facility] Ordered Lab Info) 0 each OTHER ONCE ONE Stop: 04/19/18 15:46 Ondansetron HCl (Zofran Inj) 4 mg IV.PUSH Q6H PRN PRN Reason: NAUSEA OR VOMITING Sennosides (Senokot) 17.2 mg PO Q12H PRN PRN Reason: Moderate Constipation Simethicone (Mylicon Chew) 160 mg G-TUBE Q12HR [facility] Last Admin: 04/18/18 21:56 Dose: 160 mg Sodium Chloride (Ns Flush) 2 ml IV.FLUSH BID [facility] Last Admin: 04/18/18 21:57 Dose: Not Given Sodium Chloride (Ns Flush) 2 ml IV.FLUSH PRN PRN PRN Reason: FLUSH AFTER USING IV ACCESS <Diaz Patino - Last Filed: 04/19/18 08:27> Allergies Allergy/AdvReac Type Severity Reaction Status Date / Time divalproex sodium Allergy Severe Unverified 12/17/16 12:35 levofloxacin Allergy Severe Unverified 12/17/16 12:35 olanzapine Allergy Severe Unverified 12/17/16 12:35 ciprofloxacin Allergy Intermediate Hallucinati Unverified 12/17/16 12:35 ons hydrocodone Allergy Intermediate Hallucinati Unverified 12/17/16 12:35 ons quetiapine Allergy Intermediate Rash Unverified 12/17/16 12:35 Home Medications Medication Instructions Recorded Confirmed Type acetaminophen [Tylenol] 650 mg FEEDING TUBE BID PRN 04/16/18 04/16/18 History allopurinol 100 mg FEEDING TUBE DAILY 04/16/18 04/16/18 History calcium carbonate-vitamin D3 1 tab PO DAILY 04/16/18 04/16/18 History [Calcium 600 + D(3)] fenofibrate nanocrystallized 145 mg PO DAILY 04/16/18 04/16/18 History [Tricor] lactulose 10 g PO QID 04/16/18 04/16/18 History ranitidine HCl [Zantac] 150 mg FEEDING TUBE BID 04/16/18 04/16/18 History simethicone 160 mg FEEDING TUBE Q12HR 04/16/18 04/16/18 History Exam Vital signs: Vital Signs 04/17/18 20:00 04/18/18 00:00 04/18/18 04:00 Temperature 98 F 98 F 97.1 F L Pulse Rate 67 75 68 Respiratory Rate 16 17 22 Blood Pressure 110/58 L 115/58 L 102/61 Pulse Oximetry 94 L 95 94 L 04/18/18 08:00 04/18/18 12:00 04/18/18 16:00 Temperature 97.1 F L 97.8 F 97.8 F Pulse Rate 71 75 72 Respiratory Rate 18 20 20 Blood Pressure 112/72 102/73 Pulse Oximetry 95 97 95 Intake & Output 04/18/18 04/18/18 04/19/18 06:59 18:59 06:59 Intake Total 1613.5 / 1613.5 1605 / 1605 Output Total 650 / 650 850 / 850 Balance 963.5 / 963.5 755 / 755 Weight 75 kg Intake: IV 1312.5 / 1312.5 1605 / 1605 D5W/1/2 NS Inj 1,000 ML @ 75 450 / 450 mls/hr IV.CONT .[id number] [facility] Rx# :[id number] NS Inj 1,000 ML @ 50 mls/hr IV. 1000 / 1000 755 / 755 CONT .Q20H [facility] Rx#:[id number] Azithromycin Inj 500 MG In NS 250 / 250 Inj 250 ML @ 250 mls/hr IV.SIG Q24H [facility] Rx#:[id number] Zosyn 3.375 GM Premix 3.375 gm 50 / 50 50 / 50 In 50 ml @ 100 mls/hr IV.SIG Q6H [facility] Rx#:[id number] Vancomycin Inj 1,250 MG In NS 262.5 / 262.5 Inj 250 ML @ 250 mls/hr IV.SIG Q18H [facility] Rx#:[id number] Rocephin Inj 1,000 MG In NS Inj 100 / 100 100 ML @ 200 mls/hr IV.SIG Q24H [facility] Rx#:[id number] Tube Feeding 241 / 241 Tube Irrigant 60 / 60 Output: Urine 850 / 850 Urine Amount (Catheter) 650 / 650 Suprapubic 650 / 650 Other: Date of Last Bowel Movement 04/18/18 # Bowel Movements 1 2 - Constitutional no acute distress, chronically ill appearing - Routine Respiratory Exam Present: CTA bilaterally. Absent: accessory muscle use - Routine Abdominal Exam Present: soft, normoactive bowel sounds, ostomy. Absent: tenderness, distended Comments: PEG tube intact Unknown insertion date Initial resistance then tube flushed freely with 60 cc of free water - Routine Skin Exam Present: dry, warm - Routine Neurological Exam Present: alert <Morgan,Mitali - Last Filed: 04/18/18 19:41> Vital signs: Vital Signs 04/18/18 12:00 04/18/18 16:00 04/18/18 19:00 Temperature 97.8 F 97.8 F Pulse Rate 75 72 73 Respiratory Rate 20 20 Blood Pressure 102/73 Pulse Oximetry 97 95 04/18/18 20:00 04/19/18 00:00 04/19/18 04:00 Temperature 97.8 F 97.3 F L 97.2 F L Pulse Rate 74 75 74 Respiratory Rate 18 18 20 Blood Pressure 104/62 104/65 130/70 Pulse Oximetry 94 L 94 L 95 Intake & Output 04/18/18 04/19/18 04/19/18 18:59 06:59 18:59 Intake Total 1605 / 1605 1490 / 1490 Output Total 1450 / 1450 575 / 575 Balance 155 / 155 915 / 915 Weight 74.8 kg Intake: IV 1605 / 1605 620 / 620 D5W/1/2 NS Inj 1,000 ML @ 75 450 / 450 mls/hr IV.CONT .[id number] [facility] Rx# :[id number] NS Inj 1,000 ML @ 50 mls/hr IV. 755 / 755 CONT .Q20H [facility] Rx#:[id number] Azithromycin Inj 500 MG In NS 250 / 250 Inj 250 ML @ 250 mls/hr IV.SIG Q24H [facility] Rx#:[id number] Zosyn 3.375 GM Premix 3.375 gm 50 / 50 In 50 ml @ 100 mls/hr IV.SIG Q6H [facility] Rx#:[id number] NS Inj 1,000 ML @ 50 mls/hr IV. 620 / 620 SIG .Q20H [facility] Rx#:[id number] Rocephin Inj 1,000 MG In NS Inj 100 / 100 100 ML @ 200 mls/hr IV.SIG Q24H [facility] Rx#:[id number] Oral 0 / 0 Tube Feeding 540 / 540 Tube Irrigant 30 / 30 Other 300 / 300 Output: Urine 850 / 850 575 / 575 Urine Amount (Catheter) 600 / 600 Suprapubic 600 / 600 Other: Date of Last Bowel Movement 04/18/18 04/18/18 # Bowel Movements 2 # Incontinent Bowel Movements 2 5 <MarcioDiaz stiles - Last Filed: 04/19/18 08:27> Results - Labs CBC & Chem 7: 04/18/18 08:14 04/18/18 08:14 Labs: Laboratory Results - last 24 hr 04/18/18 04/18/18 08:14 08:14 WBC 5.8 RBC 4.78 Hgb 14.5 Hct 44.3 MCV 92.7 MCH 30.3 MCHC 32.7 RDW 17.4 H Plt Count 107 L MPV 11.0 Neut % (Auto) 58.2 Lymph % (Auto) 32.7 Sullivan % (Auto) 6.0 Eos % (Auto) 2.7 Baso % (Auto) 0.4 Neut # (Auto) 3.4 Lymph # (Auto) 1.9 Sullivan # (Auto) 0.3 Eos # (Auto) 0.2 Baso # (Auto) 0.0 WBC Differential . Differential Comment Auto diff final Sodium 142 Potassium 4.2 Chloride 113 H Carbon Dioxide 23.7 Anion Gap 5 BUN 19 H Creatinine 1.02 Estimated GFR 70 L Random Glucose 105 Calcium 7.9 L <Mitali Morgan - Last Filed: 04/18/18 19:41> - Labs CBC & Chem 7: 04/18/18 08:14 04/18/18 08:14 Labs: Laboratory Results - last 24 hr 04/18/18 04/18/18 08:14 08:14 WBC 5.8 RBC 4.78 Hgb 14.5 Hct 44.3 MCV 92.7 MCH 30.3 MCHC 32.7 RDW 17.4 H Plt Count 107 L MPV 11.0 Neut % (Auto) 58.2 Lymph % (Auto) 32.7 Sullivan % (Auto) 6.0 Eos % (Auto) 2.7 Baso % (Auto) 0.4 Neut # (Auto) 3.4 Lymph # (Auto) 1.9 Sullivan # (Auto) 0.3 Eos # (Auto) 0.2 Baso # (Auto) 0.0 WBC Differential . Differential Comment Auto diff final Sodium 142 Potassium 4.2 Chloride 113 H Carbon Dioxide 23.7 Anion Gap 5 BUN 19 H Creatinine 1.02 Estimated GFR 70 L Random Glucose 105 Calcium 7.9 L <Diaz Patino - Last Filed: 04/19/18 08:27> Assessment and Plan (1) PEG tube malfunction Status: Acute Code(s): K94.23 - Gastrostomy malfunction - Plan Patient is an 78-year-old male with past medical history significant for severe dementia, Parkinson's, depression, dysphagia, GERD, GI bleed, hypotension, muscle weakness, Parkinson's disease, UTI. Surgical history significant for gastrostomy feeding tube. Patient presented to [facility] due to shortness of breath with saturations in the 80s. Patient is awake and alert but is nonverbal. Upon consultation, patient' s oxygen saturation documented 97% respiratory rate 18-20. PEG tube in place, abdomen soft, nondistended with positive bowel sounds present. PEG tube flushed with 60 cc of free water. Our service has been consulted to evaluate patient for blocked PEG tube. PEG tube blockage Initial resistance, PEG tube then flushed freely with 60 mL's of free water. No abdominal tenderness noted. Site intact without drainage or sign of infection. 04/16/2018 CT abdomen and pelvis reveal the following- 1. Nonspecific parenchymal changes left lung base. 2. Large gallstone in a benign-appearing gallbladder 3. Nonobstructing left renal stone, lack of intravenous contrast makes detection of etiology such as pyonephritis difficult. 4. There are no inflammatory changes in the abdomen. 5. Large bolus of stool in the rectum. Bladder decompressed by Soto Plan -PEG tube feedings as per order -Flush PEG tube every 4 hours with free water -Dressing change daily to keep site clean -1 bottle of magnesium citrate via PEG tube -Supportive care -GI will sign off at this time, please notify for any further assistance This patient has been seen by myself and Dr. Patino and this note is written on his behalf - Attending Attestation Dr. Patino <Mitali Morgan - Last Filed: 04/18/18 19:41> (1) PEG tube malfunction Status: Acute Code(s): K94.23 - Gastrostomy malfunction - Attending Attestation The patient was seen and examined. Agree with above note. <Diaz Patino - Last Filed: 04/19/18 08:27>
[2018-04-18] MEDS ORDERED: Magnesium Citrate Liq 300 ML Bottle G-TUBE ONE (19:43)
[2018-04-19] MEDS: Fenofibrate 48 MG Tablet PO SCH (09:33)
[2018-04-19] MEDS: Simethicone 80 MG Chew Tablet G-TUBE SCH ×2 (09:34→22:47)
[2018-04-19] MEDS: Allopurinol 100 MG Tablet G-TUBE SCH (09:34)
[2018-04-19] MEDS: Famotidine 20 MG Tablet NG/OG SCH ×2 (10:21→22:47)
--- NOTE | 2018-04-19 10:30 | P.DIET ---
Nutritional Evaluation Type of nutrition evaluation: initial Nutrition consult regarding: Tube Feeding [place] [facility] [place] [facility] [place] Subjective Subjective Comments: Non-verbal. Pt resides in a [facility]. Gastrostomy tube in place. Objective - Diagnosis Sepsis, UTI - Objective % IBW: 103 Body Weight Used for Calculations: Actual (75 kg) Energy Needs - Lower Range (kCal/kg): 25 Energy Needs - Upper Range (kCal/kg): 30 Lower Limit kCal/kg (kCals): 1,875 Upper Limit kCal/kg (kCals): 2,250 Lower Limit Protein Factor (Grams per Kg): 1.1 Upper Limit Protein Factor (Grams per Kg): 1.4 Lower Protein Needs (Protein): 83 Upper Protein Needs (Protein): 105 Fluid Factor (ml/kg): 30 Estimated Fluid Needs (ml): 2,250 Dietitian Reviewed in Medical Record: Curent medications, Intake & Output, Labs , Medical history, Tube feeding Diet Order: TF'ing JEvity 1.5 @ goal rte 90ml/hr 7p to 11a Objective Comments: PMH includes: Dementia, Depression, dysopahgia, GERD, GI bleed, hypotension, Muscle Weakness, Parkinsons, Gastrostomy tube in place [facility] 04/18/18 Feeding - Current Tube Feeding Tube Feeding Product: Jevity 1.5 Tube Feeding Rate: 40 Tube Feeding Route: gastrostomy Assessment Assessment: Pt is at nutritional risk r/t need for TF'ing for nutrition support. TF'ing formula pt receives at his residential is Isosource and is comparable to inhouse formula here of Jevity 1.5. TF'ing w/ Jevity 1.5 @ goal rate 90ml/hr form 7p to 11a will provide for pt's assessed needs, and will offer 2160 kcal, 92g protein and 1094ml free water. Free Water Flushes per MD. Labs reviewed. Recommendations: 1. TF'ing formula pt receives at his residential is Isosource and is comparable to inhouse formula here of Jevity 1.5 2. TF'ing w/ Jevity 1.5 @ goal rate 90ml/hr form 7p to 11a will provide for pt' s assessed needs 3. Free Water Flushes per MD Dietitian to Monitor: Lab values, Intake & Output, Tube feeding tolerance, Weight change, Medical course
--- NOTE | 2018-04-19 12:01 | P.PNIM ---
Subjective Interval history: Nonverbal, nursing staff states tolerating tube feeds, G-tube malfunction resolved with GI evaluation. Physical Exam Vital signs: Last Vital Signs Temp 97.5 F L 04/19/18 08:00 Pulse 70 04/19/18 08:00 Resp 20 04/19/18 08:00 BP 122/67 04/19/18 08:00 Pulse Ox 93 L 04/19/18 08:00 Intake & Output 04/17/18 04/18/18 04/19/18 04/20/18 06:59 06:59 06:59 06:59 Intake Total 2400 / 2400 3026.0 / 3026.0 3095 / 3095 Output Total 900 / 900 1250 / 1250 2024 / 2024 Balance 1500 / 1500 1776.0 / 1776.0 1070 / 1070 Weight 75 kg 75 kg 74.8 kg Narrative: GENERAL: Patient lying in bed. Awake, shakes my hand SKIN: Warm and dry. CARDIOVASCULAR: Regular rate and rhythm. RESPIRATORY: Diminished breath sounds in the bases GASTROINTESTINAL: Abdomen soft, non-tender, nondistended. G-tube tube in place Suprapubic catheter in place MUSCULOSKELETAL: Extremities without clubbing, cyanosis, or edema. NEUROLOGICAL: Awake and nonverbal, holds my hand while I spoke with him Urinary Catheter Management Suprapubic: Cath placed during this visit: yes Urethral indwelling: No Insertion date: 04/17/18 Results Labs CBC & Chem 7: 04/18/18 08:14 04/19/18 06:12 Labs: Microbiology 04/16/18 17:25 Blood - Peripheral Aerobic Blood Culture - Preliminary No growth in 3 days 04/16/18 17:25 Blood - Peripheral Anaerobic Blood Culture - Preliminary No growth in 3 days 04/16/18 17:20 Blood - Peripheral Aerobic Blood Culture - Preliminary No growth in 3 days 04/16/18 17:20 Blood - Peripheral Anaerobic Blood Culture - Preliminary No growth in 3 days 04/16/18 17:25 Suprapubic Urine Urine Culture - Final >100,000 cfu/mL mixed leticia (probable contaminants) Assessment and Plan (1) PEG tube malfunction: Code(s): K94.23 - Gastrostomy malfunction Status: Acute Plan 78-year-old white male with a history of dementia and Parkinson's sent from a local long-term secondary to decreased saturation in the low 80s and found to have Severe sepsis present on admission with tachycardia and tachypnea, lactic acid greater than 2, with underlying source of infection of urinary tract infection and suspected left lower lobe pneumonia Clinically improving on Zosyn and vancomycin, will de-escalate as blood culture has been remain negative, urine cultures show immature growth. We will continue ceftriaxone and Zithromax, will discontinue vancomycin. Transition to Ceftin and Zithromax via G-tube in the morning Follow-up with blood cultures which shows no growth to date, urine culture showed greater than 100,000 mixed leticia probably contaminant. Wean oxygen as tolerated. Suprapubic catheter has been changed out. History of chronic urinary retention with suprapubic catheter now with prehospital urinary tract infectionculture showed greater than 10,000 mixed gram leticia likely contaminant., catheter has been changed out. Large amount of stool constipation on CAT scanthis has resolved now as per nursing staff resolved multiple dose episodes of loose stools and diarrhea previously. Will stop enemas. History of Parkinson's on chronic tube feeding with previous G-tube malfunction now resolved. Appreciate GI evaluation for G-tube malfunction. Tube feeds has been restarted, continue with Jevity per dietitian. Wash with free water every 4 hours per GI. At the long-term patient was receiving Isosource at 90 mils per hour from 7 PM to 11 AM. History of dementia, chronic with likely bedbound status. Physical therapy to evaluate. DVT prophylaxisheparin Discharge planning to long-term in the morning.
[2018-04-19] MEDS ORDERED: Pharmacy Ordered Lab Info OTHER ONE (15:45)
[2018-04-19] MEDS: Azithromycin Inj 500 MG in Sodium Chlor 0.9% Inj 250 ML IV.SIG SCH (17:00)
[2018-04-19] MEDS: Fenofibrate 48 MG Tablet G-TUBE SCH (18:02)
[2018-04-19] MEDS: Calcium/Vitamin D 250/125 MG Tablet G-TUBE SCH (22:47)
[2018-04-20] MEDS: Simethicone 80 MG Chew Tablet G-TUBE SCH ×2 (09:21→22:32)
[2018-04-20] MEDS: Azithromycin 250 MG Tablet G-TUBE SCH (09:21)
[2018-04-20] MEDS: Famotidine 20 MG Tablet NG/OG SCH ×2 (09:22→22:33)
[2018-04-20] MEDS: Fenofibrate 48 MG Tablet G-TUBE SCH (09:22)
[2018-04-20] MEDS: Allopurinol 100 MG Tablet G-TUBE SCH (09:22)
[2018-04-20] MEDS: Calcium/Vitamin D 250/125 MG Tablet G-TUBE SCH ×2 (09:22→22:33)
--- NOTE | 2018-04-20 09:30 | P.DS ---
DS: Providers Date of admission: 04/16/18 19:23 Primary care physician: Ruben Oh MD Consults: 04/16/18 20:29 HUB Only Consult Order Routine Consulting Provider: Yuniel Brice 04/17/18 06:08 Consult to Urology Routine Consulting Provider: Moustapha Talbert Reason for Consultation: blocked suprapubic catheter, Notified:: Service Spoke with:: Cari Date Notified:: 04/17/18 Time Notified:: 06:20 Ordering Provider: MOIZ 04/17/18 09:54 HUB Only Consult Order Routine Consulting Provider: [facility] 04/18/18 10:25 Consult to Gastroenterology Routine Consulting Provider: Diaz Patino Reason for Consultation: Clogged G tube Notified:: Service Spoke with:: Hermes Date Notified:: 04/18/18 Time Notified:: 10:35 Ordering Provider: ANNA 04/20/18 09:07 HUB Only Consult Order Routine Consulting Provider: [facility] Brief History from admission: 78-year-old male with a history of severe dementia, Parkinson's on feeding tube , recurrent UTIs presents the ER from senior living with saturations in the low 80s. Patient is sleeping at the time of examination. Wakes up but is nonverbal. DS: Diagnosis Discharge Diagnosis (1) Severe sepsis: Status: Resolved Diagnosis: Principal (2) Community acquired pneumonia: Status: Acute Diagnosis: Principal (3) PEG tube malfunction: Status: Acute Diagnosis: Secondary DS: Summary 78-year-old white male with a history of dementia and Parkinson's was sent from a local senior living secondary to decreased saturations in the low 80s and found to be in severe sepsis with underlying community acquired pneumonia. Initially it was suspected he had a urinary tract infection and suprapubic catheter was changed out. Final urine culture showed 100,000 mixed leticia likely contaminants. Initially he was put on broad-spectrum antibiotics IV Zosyn and vancomycin and de-escalate it to IV Rocephin and Zithromax after cultures were reviewed. Blood cultures were negative during the hospitalization. He clinically improved and transition to p.o. Ceftin and Zithromax. He is G-tube malfunctioned and clogged during the hospitalization and GI service was consulted. G-tube now is functional and tube feeds has been restarted. Free water flushes every 4 hours as recommended at 200 cc. He is to continue with his senior living tube feeds at [facility] at 90 mils per hour from 7 PM to 11 AM. At this time, he will be transitioned back to the senior living. Time Spent with Patient Total time spent providing and/or coordinating discharge services: Less than 30 minutes Status at Discharge Functional status at discharge: bed bound Overall status at discharge: patient is back to baseline Exam Narrative Exam Narrative: GENERAL: This is a well-nourished, well-developed patient, in no apparent distress laying in bed. CARDIOVASCULAR: Regular rate and rhythm RESPIRATORY: Relatively clear to auscultation. Breath sounds equal bilaterally. No wheezes, rales, or rhonchi. GASTROINTESTINAL: Abdomen soft, non-tender, nondistended. Normal active bowel sounds, G-tube in place MUSCULOSKELETAL: Extremities without clubbing, cyanosis, or edema. NEURO: Nonverbal, holds and shakes hand. Gave me a thumbs up today Results Labs on day of discharge: Preliminary micro results at discharge 04/16/18 17:25 Aerobic Blood Culture - Preliminary Blood - Peripheral No growth in 3 days Anaerobic Blood Culture - Preliminary No growth in 3 days 04/16/18 17:20 Aerobic Blood Culture - Preliminary Blood - Peripheral No growth in 3 days Anaerobic Blood Culture - Preliminary No growth in 3 days Impressions ITS Impressions Chest X-Ray 04/16/18 17:15 CONCLUSION: 1. Mild bibasilar infiltrates. 2. Pulmonary venous congestion. Abdomen/Pelvis CT 04/16/18 17:16 CONCLUSION: 1. Nonspecific parenchymal changes left lung base. 2. Large gallstone in a benign-appearing gallbladder 3. Nonobstructing left renal stone, lack of intravenous contrast makes detection of etiology such as pyonephritis difficult. 4. There are no inflammatory changes in the abdomen. 5. Large bolus of stool in the rectum. Bladder decompressed by Soto Chest CT 04/16/18 17:16 CONCLUSION: 1. Cardiomegaly with mild interstitial edema. 2. Minimal parenchymal changes left lung base, nonspecific. This could be early inflammatory process Discharge Plan Discharge Disposition Patient Disposition: 03 Discharge to SNF Discharge Condition Condition: Stable Discharge Order Discharge Orders: Discharge Order (Routine); Ordered 04/20/18 Ordered By: Shaina Sanford Physicians Team Primary Care Provider: Ruben Oh V Attending Provider: Shaina Sanford Other Providers: Yuniel Brice ; Moustapha Talbert ; [facility] ; Diaz Patino ; [facility] Rxs /Orders / Referrals /Forms Prescriptions: New acetaminophen 325 mg Tablet 650 mg PO Q4H PRN (Reason: Temp > 100.4) Qty: 10 RF: 0 azithromycin 250 mg Tablet 500 mg G-Tube DAILY Qty: 3 RF: 0 water for injection, sterile Parenteral Solution 200 ml G-Tube Q4HR Qty: 1000 RF: 0 cefuroxime axetil 500 mg Tablet 500 mg G-Tube Q12HR Qty: 8 RF: 0 calcium carbonate-vitamin D3 [Oyster Shell Calcium-Vit D3] 250-125 mg-unit Tablet 1 tab G-Tube BID Qty: 30 RF: 0 fenofibrate nanocrystallized 48 mg Tablet 48 mg G-Tube DAILY Qty: 30 RF: 0 Continue allopurinol 100 mg Tablet 100 mg Feeding Tube DAILY RF: 0 ranitidine HCl [Zantac] 150 mg Tablet 150 mg Feeding Tube BID RF: 0 lactulose 10 gram/15 mL Solution 10 g Feeding Tube QID RF: 0 simethicone 80 mg Tablet,Chewable 160 mg Feeding Tube Q12HR RF: 0 Discontinued acetaminophen [Tylenol] 325 mg Tablet 650 mg Feeding Tube BID PRN (Reason: Pain) RF: 0 fenofibrate nanocrystallized [Tricor] 145 mg Tablet 48 mg PO DAILY RF: 0 calcium carbonate-vitamin D3 [Calcium 600 + D(3)] 600 mg(1,500mg) -400 unit Tablet 1 tab PO DAILY RF: 0 Referrals: Ruben Oh MD [Primary Care Provider] - See Instructions Discharge Instructions Patient Printed Instructions: Cefuroxime (By mouth), Azithromycin (By mouth), Fenofibrate (By mouth), Calcium/Vitamin D Supplement (By mouth), Sepsis (GEN) Post Discharge Care Plan Care Plan Goals: Your Health Problems: sepsis and pneumonia Goals to Promote Your Health: * To prevent worsening of your condition * To maintain your health at the optimal level Directions to Meet Your Goals: * Take your medications as prescribed * Follow your dietary instruction * Follow activity as directed * Keep your appointments as scheduled * Take your immunizations and boosters as scheduled * If your symptoms worsen call your PCP * If no PCP go to Urgent Care or Emergency Room Smoking is dangerous to your health. Avoid second hand smoke. You may reach the 24-hour crisis hotline for domestic abuse at . Status ED Status: Left Department
[2018-04-21] MEDS: Fenofibrate 48 MG Tablet G-TUBE SCH (09:18)
[2018-04-21] MEDS: Allopurinol 100 MG Tablet G-TUBE SCH (09:18)
[2018-04-21] MEDS: Simethicone 80 MG Chew Tablet G-TUBE SCH ×2 (09:18→22:00)
[2018-04-21] MEDS: Famotidine 20 MG Tablet NG/OG SCH ×2 (09:18→22:00)
[2018-04-21] MEDS: Calcium/Vitamin D 250/125 MG Tablet G-TUBE SCH ×2 (09:18→22:01)
[2018-04-21] MEDS: Azithromycin 250 MG Tablet G-TUBE SCH (09:18)
--- NOTE | 2018-04-21 12:32 | P.PNIM ---
Physical Exam Vital signs: Last Vital Signs Temp 98.0 F 04/21/18 08:00 Pulse 89 04/21/18 08:00 Resp 16 04/21/18 08:00 BP 128/67 04/21/18 08:00 Pulse Ox 92 L 04/21/18 08:00 Intake & Output 04/19/18 04/20/18 04/21/18 04/22/18 06:59 06:59 06:59 06:59 Intake Total 3095 / 3095 2340 / 2340 Output Total 2024 1125 / 1125 1250 / 1250 Balance 1070 / 1070 1215 / 1215 -1250 / -1250 Weight 74.8 kg 73.6 kg 72 kg Narrative: GENERAL: Patient lying in bed. Awake, shakes my hand SKIN: Warm and dry. CARDIOVASCULAR: Regular rate and rhythm. RESPIRATORY: Diminished breath sounds in the bases GASTROINTESTINAL: Abdomen soft, non-tender, nondistended. G-tube tube in place Suprapubic catheter in place MUSCULOSKELETAL: Extremities without clubbing, cyanosis, or edema. NEUROLOGICAL: Awake and nonverbal, does not want his head and understanding of what is communicated with him at bedside. Urinary Catheter Management Suprapubic: Cath placed during this visit: yes Urethral indwelling: No Insertion date: 04/17/18 Results Labs CBC & Chem 7: 04/18/18 08:14 04/19/18 06:12 Labs: Microbiology 04/16/18 17:25 Blood - Peripheral Aerobic Blood Culture - Final No growth in 5 days 04/16/18 17:25 Blood - Peripheral Anaerobic Blood Culture - Final No growth in 5 days 04/16/18 17:20 Blood - Peripheral Aerobic Blood Culture - Final No growth in 5 days 04/16/18 17:20 Blood - Peripheral Anaerobic Blood Culture - Final No growth in 5 days Assessment and Plan (1) Severe sepsis: Code(s): A41.9 - Sepsis, unspecified organism; R65.20 - Severe sepsis without septic shock Status: Resolved (2) Community acquired pneumonia: Code(s): J18.9 - Pneumonia, unspecified organism Status: Acute (3) PEG tube malfunction: Code(s): K94.23 - Gastrostomy malfunction Status: Acute Plan 78-year-old white male with a history of dementia and Parkinson's sent from a local shelter secondary to decreased saturation in the low 80s and found to have Severe sepsis present on admission with tachycardia and tachypnea, lactic acid greater than 2, with underlying source of infection left lower lobe pneumonia Initially was placed on Zosyn and vancomycin and de-escalated to ceftriaxone and Zithromax, Transition to Ceftin and Zithromax via G-tube. Follow-up with blood cultures which shows no growth to date, urine culture showed greater than 100,000 mixed leticia probably contaminant. Weaned off oxygen as tolerated. Suprapubic catheter has been changed out. History of chronic urinary retention with suprapubic catheter culture showed greater than 100,000 mixed gram leticia likely contaminant., catheter has been changed out. No urinary tract infection found. Large amount of stool constipation on CAT scanthis has resolved now as per nursing staff resolved multiple dose episodes of loose stools and diarrhea previously. Will stop enemas. History of Parkinson's on chronic tube feeding with previous G-tube malfunction now resolved. Appreciate GI evaluation for G-tube malfunction. Tube feeds has been restarted, continue with Jevity per dietitian. Wash with free water every 4 hours per GI. At the shelter patient was receiving Isosource at 90 mils per hour from 7 PM to 11 AM. Swallow evaluation was performed and patient was able to tolerate pured with honey thickened liquids will monitor closely to prevent aspiration. History of dementia, chronic with likely bedbound status. Physical therapy to evaluate. DVT prophylaxisheparin Discharge planning to shelter in the morning. [facility] will have bed availability in the morning
[2018-04-22] MEDS: Famotidine 20 MG Tablet NG/OG SCH ×2 (08:23→20:35)
[2018-04-22] MEDS: Simethicone 80 MG Chew Tablet G-TUBE SCH ×2 (08:23→20:35)
[2018-04-22] MEDS: Fenofibrate 48 MG Tablet G-TUBE SCH (08:23)
[2018-04-22] MEDS: Allopurinol 100 MG Tablet G-TUBE SCH (08:23)
[2018-04-22] MEDS: Calcium/Vitamin D 250/125 MG Tablet G-TUBE SCH ×2 (08:23→20:35)
[2018-04-22] MEDS: Azithromycin 250 MG Tablet G-TUBE SCH (08:23)
--- NOTE | 2018-04-22 09:04 | P.PNIM ---
Subjective Interval history: in no acute distress. looks fairly comfortable. denies pain. no fever. Physical Exam Vital signs: Last Vital Signs Temp 97.5 F L 04/22/18 04:00 Pulse 101 H 04/22/18 04:00 Resp 18 04/22/18 04:00 BP 122/67 04/22/18 04:00 Pulse Ox 92 L 04/22/18 04:00 Intake & Output 04/20/18 04/21/18 04/22/18 04/23/18 06:59 06:59 06:59 06:59 Intake Total 2340 / 2340 50 / 50 Output Total 1125 / 1125 1250 / 1250 1100 / 1100 Balance 1215 / 1215 -1250 / -1250 -1050 / -1050 Weight 73.6 kg 72 kg 72 kg Constitutional no acute distress Routine Respiratory Exam Present CTA bilaterally Routine Cardiovascular Exam Present RRR Routine Abdominal Exam Present soft Routine Extremities Exam Comments: no pedal edema. Routine Neurological Exam Present alert Urinary Catheter Management Suprapubic: Cath placed during this visit: yes Urethral indwelling: No Insertion date: 04/17/18 Results Labs CBC & Chem 7: 04/18/18 08:14 04/19/18 06:12 Labs: Microbiology 04/16/18 17:25 Blood - Peripheral Aerobic Blood Culture - Final No growth in 5 days 04/16/18 17:25 Blood - Peripheral Anaerobic Blood Culture - Final No growth in 5 days 04/16/18 17:20 Blood - Peripheral Aerobic Blood Culture - Final No growth in 5 days 04/16/18 17:20 Blood - Peripheral Anaerobic Blood Culture - Final No growth in 5 days Assessment and Plan (1) Severe sepsis: Code(s): A41.9 - Sepsis, unspecified organism; R65.20 - Severe sepsis without septic shock Status: Resolved (2) Community acquired pneumonia: Code(s): J18.9 - Pneumonia, unspecified organism Status: Acute (3) PEG tube malfunction: Code(s): K94.23 - Gastrostomy malfunction Status: Acute Plan Severe sepsis present on admission with tachycardia and tachypnea, lactic acid greater than 2, with underlying source of infection left lower lobe pneumonia Initially was placed on Zosyn and vancomycin and de-escalated to ceftriaxone and Zithromax, Transition to Ceftin and Zithromax via G-tube. Follow-up with blood cultures which shows no growth to date, urine culture showed greater than 100,000 mixed leticia probably contaminant. Weaned off oxygen as tolerated. Suprapubic catheter has been changed out. History of chronic urinary retention with suprapubic catheter culture showed greater than 100,000 mixed gram leticia likely contaminant., catheter has been changed out. No urinary tract infection found. Large amount of stool constipation on CAT scanthis has resolved now as per nursing staff resolved multiple dose episodes of loose stools and diarrhea previously. History of Parkinson's on chronic tube feeding with previous G-tube malfunction now resolved. Appreciate GI evaluation for G-tube malfunction. Tube feeds has been restarted, continue with Jevity per dietitian. Wash with free water every 4 hours per GI. At the skilled nursing patient was receiving Isosource at 90 mils per hour from 7 PM to 11 AM. Swallow evaluation was performed and patient was able to tolerate pured with honey thickened liquids will monitor closely to prevent aspiration. History of dementia, chronic with likely bedbound status. Physical therapy to evaluate. DVT prophylaxisheparin Discharge Planning: for dc to SNF.
[2018-04-23 05:03] VITALS: O2SAT 93
[2018-04-23] MEDS: Simethicone 80 MG Chew Tablet G-TUBE SCH (08:34)
[2018-04-23] MEDS: Allopurinol 100 MG Tablet G-TUBE SCH (08:34)
[2018-04-23] MEDS: Fenofibrate 48 MG Tablet G-TUBE SCH (08:34)
[2018-04-23] MEDS: Calcium/Vitamin D 250/125 MG Tablet G-TUBE SCH (08:34)
[2018-04-23] MEDS: Azithromycin 250 MG Tablet G-TUBE SCH (08:34)
[2018-04-23] MEDS: Famotidine 20 MG Tablet NG/OG SCH (08:35)
--- NOTE | 2018-04-23 09:25 | P.PNIM ---
Subjective Interval history: in no acute distress. looks comfortable. no new complaints. Physical Exam Vital signs: Last Vital Signs Temp 97.9 F 04/23/18 04:00 Pulse 73 04/23/18 04:00 Resp 17 04/23/18 04:00 BP 113/67 04/23/18 04:00 Pulse Ox 93 L 04/23/18 04:00 Intake & Output 04/21/18 04/22/18 04/23/18 04/24/18 06:59 06:59 06:59 06:59 Intake Total 50 / 50 2290 / 2290 Output Total 1250 / 1250 1100 / 1100 550 / 550 Balance -1250 / -1250 -1050 / -1050 1740 / 1740 Weight 72 kg 72 kg 71.8 kg Constitutional no acute distress Routine Respiratory Exam Present CTA bilaterally Routine Cardiovascular Exam Present RRR Routine Abdominal Exam Present soft Routine Extremities Exam Comments: no pedal edema. Routine Neurological Exam Present alert Urinary Catheter Management Suprapubic: Cath placed during this visit: yes Urethral indwelling: No Insertion date: 04/17/18 Results Labs CBC & Chem 7: 04/18/18 08:14 04/19/18 06:12 Assessment and Plan (1) Severe sepsis: Code(s): A41.9 - Sepsis, unspecified organism; R65.20 - Severe sepsis without septic shock Status: Resolved (2) Community acquired pneumonia: Code(s): J18.9 - Pneumonia, unspecified organism Status: Acute (3) PEG tube malfunction: Code(s): K94.23 - Gastrostomy malfunction Status: Acute Plan Severe sepsis present on admission with tachycardia and tachypnea, lactic acid greater than 2, with underlying source of infection left lower lobe pneumonia Initially was placed on Zosyn and vancomycin and de-escalated to ceftriaxone and Zithromax, switched to Ceftin and Zithromax via G-tube. Follow-up with blood cultures which shows no growth to date, urine culture showed greater than 100,000 mixed leticia probably contaminant. Weaned off oxygen as tolerated. Suprapubic catheter has been changed out. History of chronic urinary retention with suprapubic catheter culture showed greater than 100,000 mixed gram leticia likely contaminant., catheter has been changed out. No urinary tract infection found. Large amount of stool constipation on CAT scanthis has resolved now as per nursing staff resolved multiple dose episodes of loose stools and diarrhea previously. History of Parkinson's on chronic tube feeding with previous G-tube malfunction now resolved. Appreciate GI evaluation for G-tube malfunction. Tube feeds has been restarted, continue with Jevity per dietitian. Wash with free water every 4 hours per GI. [facility] Isosource at 90 mils per hour from 7 PM to 11 AM. Swallow evaluation was performed and patient was able to tolerate pured with honey thickened liquids will monitor closely to prevent aspiration. History of dementia, chronic with likely bedbound status. Physical therapy to evaluate. DVT prophylaxisheparin Discharge Planning: for dc to SNF.
[2018-04-23 09:49] VITALS: BP 125/67; RESP 14; TEMP 97.5
[2018-04-23 10:33] VITALS: PULSE 96
== END 2018-04-23 13:16 ==
LOC: NEPC 16:51 → NEDA 19:23 → N04 21:45
PROVIDERS: ADMIT Internal Medicine; ATTEND Internal Medicine
DX: I95.9 Hypotension, unspecified; K21.9 Gastro-esophageal reflux disease without esophagitis; R19.7 Diarrhea, unspecified; R65.20 Severe sepsis without septic shock; K59.00 Constipation, unspecified; R09.02 Hypoxemia; K80.20 Calculus of gallbladder without cholecystitis without obstruction; N20.0 Calculus of kidney; R13.10 Dysphagia, unspecified; R33.9 Retention of urine, unspecified; M62.81 Muscle weakness (generalized); F32.9 Major depressive disorder, single episode, unspecified; G20 Parkinson's disease; F02.80 Dementia in other diseases classified elsewhere, unspecified severity, without behavioral disturbance, psychotic disturbance, mood disturbance, and anxiety; Y84.8 Other medical procedures as the cause of abnormal reaction of the patient, or of later complication, without mention of misadventure at the time of the procedure; M1A.9XX0 Chronic gout, unspecified, without tophus (tophi); K94.23 Gastrostomy malfunction; A41.9 Sepsis, unspecified organism; T83.090A Other mechanical complication of cystostomy catheter, initial encounter; Z74.01 Bed confinement status; Z87.440 Personal history of urinary (tract) infections; J18.1 Lobar pneumonia, unspecified organism